=== PATIENT | female | born 1960 | race Caucasian/White ===

== ENCOUNTER 2022-01-08 13:23 | Outpatient (CLI) | payer OTHER, SELFPAY ==
[2022-01-08 16:13] LABS: Magnesium* 1.9 mg/dL (1.5-2.6)
[2022-01-08 16:50] LABS: Ferritin* 22.3 ng/mL (11.1-264.0)
[2022-01-08 17:03] LABS: Vitamin B12* 819 pg/mL (243-894)
[2022-01-12 11:31] LABS: Vitamin A (Retinol) 0.44 mg/L (0.30-1.20)
[2022-01-13 08:42] LABS: Copper, Serum/Plasma 156.2 ug/dL (80.0-155.0); Zinc, Serum/Plasma 79.3 ug/dL (60.0-120.0)
[2022-01-14 14:21] LABS: Vitamin K1 0.39 nmol/L (0.22-4.88)
--- OUTSIDE RECORDS SUMMARY | 2022-01-29 17:49 | XMS_ITS | Encounter Summary ---
:1960 Author Organization [facility] Address [address] [place] [address] Care Team Providers Name Role Phone Olamide Rodney MD Primary Care Provider Reason for Visit Reason Comments Annual Exam Encounter Details Date Type Department Care Team Description 09/28/2015 Office Visit [place] [facility] Olamied Rodney physical examination (Primary Dx); Hayley Antoine MD Diabetes type 2, controlled ([facility]); [address] S/P gastric bypass; [place] [address] Bl Vitamin D deficiency; [phone] [place], [place] Hx of [facility] [place] er of endometrium [phone] (Wo rk) Social History Tobacco Use Types Packs/Day Years Used Date Smoking Tobacco: Never Alcohol Use Standard Drinks/Week Comments Yes 0 (1 standard drink = 0.6 oz pure alcoho l) mod Sex Assigned at Date Recorded Not on file documented as of this encounter Last Filed Vital Signs Vital Sign Reading Time Taken Comments Blood Pressure 129/88 09/28/2015 8:30 AM CDT Pulse 74 09/28/2015 8:30 AM CDT Temperature - - Respiratory Rate - - Oxygen Saturation - - Inhaled Oxygen Concentration - - Weight 111.6 kg (246 lb) 09/28/2015 8:30 AM CDT Height 164.5 cm (5' 4.76) 09/28/2015 8:30 AM CDT Body Mass Index 41.24 09/28/2015 8:30 AM CDT documented in this encounter Progress Notes Salima José RN - 10/05/2015 10:23 AM CDT Quick Note: Dear Paty, I am writing to let you know that your PAP and HPV result is negative. This means that your test result was normal. No cancer or precancerous cells were seen. Based on current cervical cancer screening recommendations, your next PAP and HPV should be in 12 months. Continue to schedule your annual preventive exams for your overall health. If you have questions about cervical cancer screening or your test results, call Cervical Cancer Screening and Management Team [phone] Sincerely, Salima José, LUCIA on behalf of Dr. Bethany Carbone, Ceramist Carlyn Al Cervical Cancer Screening and Management Olamide Jimenez MD - 09/28/2015 11:11 AM CDT Preventive Physical Exam: 09/28/2015 SUBJECTIVE: 54 y.o. year old female for a physical exam. Zostavax 2008. Pneumonia vaccine 1996 &2005. Adacel 2011. Gets seasonal flu shot. Was diagnosed with endometrial cancer, still gets Pap andpelvicexam annually. Done seeing Lsw. Had the OLVIN and BSO. She remotely had a DVT on control pills. She is sexually active and denies risk for STD. She does do self-breast exam. No history of breast biopsy. Gets annual mammograms. She is working out at the gym 3 times per week 45-60 minutes doing weights and cardio. Weight is up a bit. Bone density approximately 2013, due in 10 years for repeat. Colonoscopy 2015 repeat in 5 years, does have family history of colon cancer in mother. She has type 2 diabetes mellitus which became quiescent after her gastric bypass 2002. Her current weight is increasing. Patient traveling to [facility] and [facility] with [employer] this fall. Lab Results Component Value Date/Time HGB A1C 5.8* 09/21/2015 0736 HGB A1C 6.0* 03/15/2015 0757 HGB A1C 5.8* 09/02/2014 1102 HEMOGLOBIN A1C RAPID 5.2 03/31/2012 1013 Immunization History Administered Date(s) Administered ??? FLUARIX INFLUENZA QIV (36+ MOS) 03/08/2013, 03/09/2014, 03/22/2015 ??? Influenza TIV (36+ mos) 03/04/2012 ??? Influenza TIV 0.5ml (36+ mos) 04/03/2005, 05/06/2006, 05/22/2007, 04/01/2010 ??? Influenza TIV 36+ mos 03/29/2011 ??? Pneumococcal vaccine (pneumovax) 10/02/2005 ? ? Td Adult (>7 years) 12/11/1999 ??? Tdap (Adacel) 08/19/2011 Past Medical History Diagnosis Date ??? Deep Venous Thrombosis 10/02/2005 ??? Depression NOS 10/02/2005 ??? Factor V Leiden 08/08/2010 ??? Hernia Hiatal 08/08/2010 ??? Lumbar Disc Degeneration 08/08/2010 ??? Diabetes type 2, controlled (HRC) 04/23/2011 ??? Chronic insomnia 04/23/2011 ??? Actinic keratoses 04/23/2011 ??? Endometrial cancer (HRC) 04/23/2011 ??? Nondependent alcohol abuse 04/23/2011 ??? Chronic abdominal pain 04/23/2011 ??? Varicose veins 04/23/2011 ??? Superficial thrombophlebitis 04/23/2011 ??? S/P gastric bypass 04/23/2011 ??? Hx of cancer of endometrium 07/26/2011 ??? Unspecified asthma(493.90) (ACG) 08/19/2011 ??? Macrocytosis without anemia 04/22/2012 ??? Asthma (ACG) allergic triggers Past Surgical History Procedure Laterality Date ??? Gastric bypass surgery 2003 ??? [place] tooth extraction ??? Eye surgery PRK ??? Olvin and bso endometrial cancer ??? Cholecystectomy ??? Lipectomy 2005 ??? Ovary removal ??? Hysterectomy Social History: . 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 Allergies Allergen Reactions ??? Flovent [Fluticasone] laryngitis ??? Lanolin Hives ??? Other LW Other1: -NONE KNOWN ??? Oxycodone-Acetaminophen LW Reaction: Itching, Pruritis ??? Review Contrast Media LW CM1: >>> NO CONTRAST ADVERSE REACTION <<< Reaction : ??? Review Food Intolerance LW FI1: NO KNOWN FOOD ALLERGIES OR INTOLERANCES LW FI2: NO KNOWN FOOD ALLERGIES OR INTOLERANCES Outpatient Prescriptions Prior to Visit Medication Sig Note Dispense Refill ??? aspirin 81 mg tablet Take 2 tablets by mouth daily (every 24 hours). LW Addl Instr:hold until lovenox dc'd 01/25/2014: Stopped taking aspirin per instructions for procedure. 3 ??? b complex-vitamin c-folic acid (NEPHROCAPS) 1 mg capsule Take 1 capsule by mouth daily (every 24hours). ??? cyanocobalamin (VITAMIN B12) 1,000 mcg tablet Take 1,000 mcg by mouth daily (every 24 hours). 6 times/week ??? folic acid 400 mcg tablet Take 400 mcg by mouth daily (every 24 hours). ??? LORazepam (ATIVAN) 0.5 mg tablet Take 1 tablet by mouth every 6 hours as needed for Anxiety. 12 tablet 0 ??? multivitamin (THERAGRAN) tablet Take 2 tablets by mouth daily (every 24 hours). ??? sertraline (ZOLOFT) 50 mg tablet Take 0.5 tablets by mouth daily (every 24 hours). 90 tablet 3 No facility-administered medications prior to visit. Family History Problem Relation Age of Onset ??? Conversion Family History LW Problem: V16.0 Ca Colon Fam Hx LW Modifier: colonoscopy at 10/2004 LW Onset: ??? Cancer, Colon Mother ??? Clotting Disorder Mother Factor V Leiden ??? DVT/PE Mother ??? Emphysema Father ??? Heart Disease Father ??? Clotting Disorder Father Factor V Leiden ??? Mult Sclerosis Sister ??? Allergies Sister ??? Depression Sister ??? Allergies Brother ??? Depression Brother ??? Thyroid Disease Brother ??? Clotting Disorder Brother Factor V Leiden ??? Allergies Brother ??? Depression Brother ??? Allergies Brother ??? Depression Brother ??? Allergies Brother ??? Depression Brother ??? Colon Polyps Maternal Aunt ??? Cancer, Breast Maternal Aunt 70 Habits: reports that she has never smoked. She has never used smokeless tobacco. reports that she does not drink alcohol. reports that she does not use illicit drugs. Review of Systems: With the exception of any items noted above, the remainder of the complete ROS is negative. OBJECTIVE: Vital Signs: height is 1.645 m (5' 4.76) and weight is 111.585 kg (246 lb). Her blood pressure is 129/88 and her pulse is 74. , Estimated body mass index is 41.24 kg/(m^2) as calculated from the following: Height as of this encounter: 1.645 m (5' 4.76). Weight as of this encounter: 111.585 kg (246 lb). General: Overweight female, alert, in NAD. HEENT: PERRLA, EOMI, no icterus or injection. Bilateral TM's, external canals, oropharynx normal. Neck: Supple, without thyromegaly or mass. No LAD. No JVD or carotid bruits. CV: RRR without murmurs, rubs or gallops. 2/4 radial artery and dorsalis pedis pulse bilaterally. Resp: Clear to auscultation without crackles, wheezes or distress. Abdomen: Soft, non-tender, non-distended, without hepatosplenomegaly, masses. Breasts: Breasts appear normal. Symmetrical, nontender, without masses or nipple discharge. No supraclavicular or axillary LAD. Lower Extremities: FROM, normal gait without edema, lesions, or deformity. Pelvic: Vaginal mucosa appears atrophic. Vaginal cuff appears normal. Vaginal cuff scraping obtained. Uterus and adnexa absent on pelvic examination. Rectal: Deferred. Neuro: CN II-XII, motor & sensory function all intact. Psychiatric: Alert & oriented with normal affect and insight. ASSESSMENT: 1. Encounter Diagnoses Name Primary? Routine physical examination Yes ??? Diabetes type 2, controlled (HRC) ??? S/P gastric bypass ??? Vitamin D deficiency (HRC) ??? Hx of cancer of endometrium PLAN: 1. Physical exam, Pap/pelvic, clinical breast exam were completed. Recommend monthly self breast exam and annual mammogram. Avoid weight gain. Restart vitamin D. Reviewed labs drawn prior to visit. Followup in 6 months. 2. Orders Placed This Encounter Procedures ??? MM Mammogram Screening Bilateral W Cad ??? Hemoglobin A1C Glycosylated ??? Vitamin D (In house) ??? Pap Test Order ??? HPV with 16 18 Genotyping Orders Placed This Encounter Medications ??? CALCIUM CARBONATE (CALCIUM 500 ORAL) Sig: Take by mouth. ??? albuterol HFA 90 mcg/actuation inhaler Sig: Inhale 2 puffs every 6 hours as needed for Wheezing. Dispense: 1 Inhaler Refill: 1 There are no Patient Instructions on file for this visit. General preventive health measures were reviewed with patient. Labs: We will mail lab results to patient or contact patient if needed by phone fAnd inor significant abnormals. *SH~DNS~PEF documented in this encounter Miscellaneous Notes Miscellaneous - 07/31/2016 7:38 PM CSTNotes Recorded by Salima José RN on 10/05/2015 at 10:23 Brody Newman,I am writing to let you know that your PAP and HPV result is negative. This means that your test result was normal. No cancer or precancerous cells were seen.Based on current cervical cancer screening recommendations, your next PAP and HPV should be in 12 months. Continue to schedule your annual preventive exams for your overall health.If you have questions about cervical cancer screening or your test results, callCervical Cancer Screening and Management Team [phone] Garcia RN on behalf ofDrJorge Carbone, Medical DirectorLakeview Hospital Cervical Cancer Screening and Management AL MANAGER Miscellaneous - 07/31/2016 7:38 PM CSTNotes Recorded by Salima José RN on 10/05/2015 at 10:23 Brody Newman,I am writing to let you know that your PAP and HPV result is negative. This means that your test result was normal. No cancer or precancerous cells were seen.Based on current cervical cancer screening recommendations, your next PAP and HPV should be in 12 months. Continue to schedule your annual preventive exams for your overall health.If you have questions about cervical cancer screening or your test results, callCervical Cancer Screening and Management Team [phone] Garcia, RN on behalf ofDr. Bethany Carbone, Medical DirectorAultman Alliance Community Hospitaltaylor Al Cervical Cancer Screening and Management AL MANAGER documented in this encounter Plan of Treatment Not on filedocumented as of this encounter Procedures Procedure Name Priority Date/Time Associated Diagnosis Comme nts PAP TEST ORDER Routine 09/28/2015 8:50 AM Hx of cancer of Resu lts for this CDT endometrium procedure are i n the results section. HPV WITH 16 18 Routine 09/28/2015 8:50 AM Results for this GENOTYPING, CDT procedure are i n CERVICAL/ENDOCERVICA the res ults L section. ANATOMICAL PATH Routine 09/28/2015 8:50 AM Result s for this LIQUID BASED CDT procedure are i n the results section. documented in this encounter Results Vitamin D 25-Hydroxy, Total (03/29/2016 4:00 PM CDT) athologist Signature Vitamin D 25 Oh 30 20 - 80 PN SOFT ng/mL Comment: Deficiency = <20 Adequate ??= 20-29 Preferred = 30-50 Uncertain safety = 51-80 High = >80 Specimen Anatomical Collection Method Collection Time Receive d Time (Source) Location / / Volume Laterality 03/29/2016 4:00 PM 6 9:03 CDT PM CDT Narrative PN SOFT - 03/29/2016 10:04 PM [place] [address] CLIA number [id number] Olamide Rodney MD LAB_1 Performing Organization Address City/State/ZIP Code Phon e Number PN SOFT [address] [place] [phone] (ABNORMAL) Hgb A1c (03/29/2016 4:00 PM CDT) athologist Signature HGB A1C 6.2 (H) 4.0 - 5.6 % PN SOFT Specimen Anatomical Collection Method Collection Time Receive d Time (Source) Location / / Volume Laterality 03/29/2016 4:00 PM 6 6:16 CDT PM CDT Narrative PN SOFT - 03/29/2016 9:56 PM CDT Performed at [facility] [address] [place] [address] CLIA number [id number] Olamide Rodney MD LAB_1 Performing Organization Address City/State/ZIP Code Phon e Number PN SOFT [address] [place] [address] Pap Smear (09/28/2015 8:50 AM CDT) Specimen (Source) Anatomical Collection Method Collection Time Re ceived Time Location / / Volume Laterality 09/28/2015 8:50 AM CDT Narrative HP CONVERSION - 10/04/2015 7:16 PM CDT FINAL GYNECOLOGICAL CYTOLOGY REPORT Pathology #: [id number] ?Date Obtained: 09/28/2015 ? Date Received: 09/29/2015 INTERPRETATION/RESULTS: Negative for Intraepithelial Lesion or M alignancy. SPECIMEN ADEQUACY: Satisfactory for Evaluation. ??No endoce rvical cells/transformation zone component present; post hysterectomy Verified on 10/04/2015 ??by EPHRAIM RAMIRES(ASCP) (electronic signature) CLINICAL NOTES: ?Abnormal bleeding: No, LMP: na, Menstrual status: Post ?Menopausal, Current form of the rapy: None apply LIQUID BASED PAP SMEAR SPECIMEN TYPE: ?ROUTINE CERVICAL PAP TEST PLEASE NOTE: The pap smear is a screening test design ed to aid in the detection of cervical cancer and its pre cursor lesions. It is not a diagnostic procedure and boogie uld not be used as the sole means of detecting cervical cancer. Both false-positive and false-negative report s may occur. Performed at [facility], [address] [place] [address] Transcriptions 07/31/2016 7:38 PM CSTNotes Recorded by Salima José RN on 10/05/2015 at 10:23 Brody Newman, I am writing to let you know that your PAP and HPV result is negative. This means that your test resu lt was normal. No cancer or precancerous cells were seen. Based on current cervical cancer screening recommendations, your next PAP and HPV should be in 12 months. Continue to schedule your annual preventive exams for your overall health. If you have questions about cervical can cer screening or your test results, call Cervical Cancer Screening and Management Team [phone],Salima José RN on behalf ofDr. Bethany Carbone, Ceramist [facility] Cervical Cancer Screening and Management Olamide Rodney MD LAB_1 Performing Organization Address City/State/ZIP Code Phon e Number HP CONVERSION HPV with 16 18 Genotyping (09/28/2015 8:50 AM CDT) [facility] Method Time Signature HPV High Risk Not Detected HP CONVERSION 16 HPV High Risk Not Detected HP CONVERSION 18 Other HPV Not Detected HP CONVERSION High Risk Not 16/18 Comment: The [facility] HPV Test is a qualitative in v itro test for the detection of Human Papillomavirus in [facility] patient specimens. ??The test utilizes amplifica tion of target DNA by Polymerase Chain Reaction (PCR) and n ucleic acid hybridization for the detection of 14 hi gh-risk (HR) HPV types. The assay tests for high risk typ es (16, 18, 31, 33, 35, 39, 45, 51, 52, 56, 58, 59, 66 and 6 8). NOTE: This test was developed and its pe rformance characteristics determined by [facility]. It has not been cleared or approved by [facility]. The laboratory is regulated under CLIA as qualified to perform high-complexity testing. This test is used for clinical purposes. It should not be regarded as investigational or fo r research. Specimen Anatomical Collection Method Collection Time Receive d Time (Source) Location / / Volume Laterality 09/28/2015 8:50 AM 6 8:50 CDT AM CDT Narrative HP CONVERSION - 10/02/2015 12:37 PM CDT Performed at [facility] [address] [place] [address] CLIA number [id number] Transcriptions 07/31/2016 7:38 PM CSTNotes Recorded by Salima José RN on 10/05/2015 at 10:23 Brody Newman, I am writing to let you know that your PAP and HPV result is negative. This means that your test resu lt was normal. No cancer or precancerous cells were seen. Based on current cervical cancer screening recommendations, your next PAP and HPV should be in 12 months. Continue to schedule your annual preventive exams for your overall health. If you have questions about cervical can cer screening or your test results, call Cervical Cancer Screening and Management Team [phone] Garcia RN on behalf ofDr. Bethany Carbone, Ceramist Carlyn Zamoraet Cervical Cancer Screening and Management Olamide Rodney MD LAB_1 Performing Organization Address City/[facility] Phon e Number HP CONVERSION Pap Test Order (09/28/2015 8:50 AM CDT) [facility] Method Time Signature Pap Smear Collected HP CONVERSION Monolayer tracking test Specimen Anatomical Collection Method Collection Time Receive d Time (Source) Location / / Volume Laterality 09/28/2015 8:50 AM 6 6:57 CDT AM CDT Olamide Rodney MD LAB_1 Performing Organization Address [facility] Phon e Number HP CONVERSION documented in this encounter Visit Diagnoses Diagnosis Routine physical examination - Primary Routine general medical examination at a health care facility Diabetes type 2, controlled (HRC) Type II or unspecified type diabetes rod litus without mention of complication, not stated as uncontrolled S/P gastric bypass Bariatric surgery status Vitamin D deficiency (HRC) Unspecified vitamin D deficiency Hx of cancer of endometrium Personal history of malignant neoplasm o f other parts of uterus Diabetes type 2, controlled (HRC) Type II or unspecified type diabetes rod litus without mention of complication, not stated as uncontrolled Vitamin D deficiency (HRC) Unspecified vitamin D deficiency documented in this encounter Care Teams Aviation Safety Inspector Relationship Specialty Start Date End Date Olamide Rodney MD PCP - General 09/25/10 01/11/21 [address] [place] [address] documented as of this encounter
--- OUTSIDE RECORDS SUMMARY | 2022-01-29 17:49 | XMS_ITS | Encounter Summary ---
:1960 Author Organization [employer] Address [address] [place] [address] Care Team Providers Name Role Phone Shira Rodney MD Primary Care Provider Reason for Visit Reason Comments Refill sertraline (ZOLOFT) 50 MG ta blet [Pharmacy Med Name: SERTRALINE 50MG TABLETS] Encounter Details Date Type Department Care Team Description 05/12/2016 Refill [place] [facility] Shira Rodney, Refill (sertraline Medicine (ZOLOFT) 50 MG tablet [id number] [Pharmacy Med Name: [place] [address] Blvd SERTRALINE 50MG [phone] [place], [place] TABLETS]) [id number] (Wo rk) Social History Tobacco Use Types Packs/Day Years Used Date Smoking Tobacco: Never Smokeless Tobacco: Never Alcohol Use Standard Drinks/Week Comments No 0 (1 standard drink = 0.6 oz pure alcoho l) None Alcohol Habits Answer Date Recorded How often do you have a drink containing alcohol? Not asked How many drinks containing alcohol do you have on a typical Not asked day when you are drinking? How often do you have six or more drinks on one occasion? No t asked Comment: None 02/10/2016 Sex Assigned at Date Recorded Not on file documented as of this encounter Nursing Notes Meagan Ayala RN - 05/13/2016 12:01 PM CST Renewed medication per medication refill protocol. Requested Prescriptions Signed Prescriptions Disp Refills ??? sertraline (ZOLOFT) 50 MG tablet 90 Tab 3 Sig: TAKE 1 TABLET BY MOUTH DAILY Authorizing Provider: SHIRA RODNEY Ordering User: MEAGAN AYALA SLATIVE ANALYST Interface, Out [employer] Clean Tech Query - 05/12/2016 3:15 AM CST sertraline (ZOLOFT) 50 MG tablet [Pharmacy Med Name: SERTRALINE 50MG TABLETS] Medication started: 05/11/2015 Last ordered by SHIRA RODNEY: 05/25/2015 (353 days ago) QTY: 90, Refills: 3, Sig: take 0.5 tablets by mouth daily (every 24 hours). (changed) -> This medication may not have been authorized by the requested provider. -> Refill x 12 months (until due for an office visit) Last qualifying visit: 04/02/2016 (with SHIRA RODNEY) Next scheduled visit: None SBP: 138 mm Hg on 04/02/2016 DBP: 86 mm Hg on 04/02/2016 Powered by [employer], Reference: [id number], 05/12/2016 3:15:13 AM LEGISLATIVE ANALYST, Pool: VIRGILIO ROLLINS REFILL ([id number]) SLATIVE ANALYST documented in this encounter Plan of Treatment Not on filedocumented as of this encounter Visit Diagnoses Not on filedocumented in this encounter Care Teams Safety Coordinator Relationship Specialty Start Date End Date Shira Rodney MD PCP - General 09/25/10 01/11/21 [address] [place] [address] documented as of this encounter
--- OUTSIDE RECORDS SUMMARY | 2022-01-29 17:49 | XMS_ITS | Encounter Summary ---
:1960 Author Organization [employer] Address [address] [place] [address] Care Team Providers Name Role Phone Olamide Rodney MD Primary Care Provider Reason for Visit Procedure/Equipment (Routine) - Incomplete Specialty Diagnoses / Procedures Referred By Contact Refer red To Contact Diagnoses Cough Olamide Rodney MD Procedures XR Chest 2 Views [address] [place], [place] [address] Referral ID Status Reason Start Date Expiration Date Visits V isits Requested Authorized [id number] Incomplete 09/30/2016 12/30/2017 1 1 Encounter Details Date Type Department Care Team Description 09/30/2016 Imaging [place] [facility] Olamide Rodney MD Cough [address] [place] [address] [place] [address] [phone] (Wo rk) Social History Tobacco Use Types Packs/Day Years Used Date Smoking Tobacco: Never Smokeless Tobacco: Never Alcohol Use Standard Drinks/Week Comments Yes 10 (1 standard drink = 0.6 oz pure alcoh ol) None Alcohol Habits Answer Date Recorded How [...] on file documented as of this encounter Plan of Treatment Not on filedocumented as of this encounter Procedures Procedure Name Priority Date/Time Associated Diagnosis Comme nts XR CHEST 2 VIEWS Same Day 09/30/2016 9:23 AM Cough Resul ts for this CDT procedure are i n the results section. documented in this encounter Results XR Chest 2 Views (09/30/2016 9:23 AM CDT) Anatomical Region Laterality Modality Chest, Lung Radio Fluoroscopy Specimen (Source) Anatomical Collection Method Collection Time Re ceived Time Location / / Volume Laterality 09/30/2016 9:11 AM CDT Impressions 09/30/2016 9:29 AM CDT IMPRESSION: No acute process. Narrative 09/30/2016 9:29 AM CDT COMPARISON: ??None ? FINDINGS: ??Two views of the chest show normal cardiomediastinal silhouette and pulmonary vasculature. ??Lungs are well aerated and clear. ??No significant effusion. ? Procedure Note Jose Riggs MD - 09/30/2016Format ting of this note might be different from the original. COMPARISON: None FINDINGS: Two views of the chest show no rmal cardiomediastinal silhouette and pulmonary vasculature. Lungs are well aerated and clear. No significant effusion. IMPRESSION IMPRESSION: No acute process. Olamide Rodney MD RAD GD documented in this encounter Visit Diagnoses Diagnosis Cough documented in this encounter Care Teams Precinct Commanding Officer Relationship Specialty Start Date End Date Olamide Rodney MD PCP - General 09/25/10 01/11/21 [address] [place] [address] documented as of this encounter
--- OUTSIDE RECORDS SUMMARY | 2022-01-29 17:49 | XMS_ITS | Encounter Summary ---
:1960 Author Organization [employer] Address [address] [place] [address] Care Team Providers Name Role Phone Olamide Rodney MD Primary Care Provider Reason for Visit Reason Comments Follow-up Encounter Details Date Type Department Care Team Description 04/02/2016 Office Visit [place] [facility] Olamide Rodney type 2 diabetes mellitus without complication, without long-term current use of insulin (HRC) (Primary Dx); Hayley Antoine MD Need for influenza vaccination; [id number] Other vitamin B12 deficiency anemia; [place] [address] [address] Embolism and thrombosis (HRC); [phone] [place], [place] Heterozygo us factor V Leiden mutation (HRC); [address] Chronic insomnia; [phone] S/P gastric byp ass; (Work) Mild intermittent asthma without complic ation; Macrocyto sis without anemia; Depression, susan or, single episode, mild (HRC); Vitamin D defic iency; Status post bar iatric surgery; Intestinal iftikhar bsorption, unspecified type [K90.9] Social History Tobacco Use Types Packs/Day Years [...] Sign Reading Time Taken Comments Blood Pressure 138/86 04/02/2016 11:39 AM CDT Pulse 80 04/02/2016 11:39 AM CDT Temperature - - Respiratory Rate - - Oxygen Saturation - - Inhaled Oxygen Concentration - - Weight 117.9 kg (260 lb) 04/02/2016 11:39 AM CDT Height - - Body Mass Index 43.58 09/28/2015 8:30 AM CDT documented in this encounter Progress Notes Olamide Rodney MD - 04/02/2016 11:50 AM CDT SUBJECTIVE: 55 y.o. -year-old female followup type 2 diabetes mellitus, gastric bypass. She has type 2 diabetes mellitus. Diet control. She is status post gastric bypass. Her weight has increased a fair amount. Continues to creep higher. Her A1c has been fairly stable, recent A1c is 6.2, Increased. She does not check the blood glucose. She is not on any medications for diabetes. She is status post gastric bypass. She does take vitamin B 12 and multivitamin daily. She has some iron in the multivitamin but does not take it separate iron supplement. She has never had any difficulty with low ferritin. She has had good labs in the past with no significant nutritional deficiencies.Vitamin D has been low, takes 1000 international units most days. Heterozygous for factor V Leiden. No current evidence thrombosis. Has trouble sleeping chronically. Tried [id number]-[id number] sleep aid but got restless legs. States sheis drinking some alcohol but feels she has things under control. Not currently feeling too depressed. Taking the Zoloft. Phq9 score is 1. No suicidal thoughts or ideation. Gets a lot of knee pain under left knee. Data: Lab Results Component Value Date/Time HGB A1C 6.2* 03/29/2016 1600 HGB A1C 5.8* 09/21/2015 0736 HGB A1C 6.0* 03/15/2015 0757 HGB A1C 5.0 03/25/2003 0844 HGB A1C 6.4* 07/05/2002 0936 HGB A1C 6.2* 03/19/2002 0826 HEMOGLOBIN A1C RAPID 5.2 03/31/2012 1013 Lab Results Component Value Date/Time LDL, CALC. 71 09/19/2004 0824 LDL CALCULATED 91 09/21/2015 0736 Lab Results Component Value Date/Time CREATININE 0.9 07/05/2002 0936 CREATININE SERUM 0.70 09/21/2015 0736 Lab Results Component Value Date/Time ALT (SGPT) 34 07/05/2002 0936 ALANINE AMINOTRANSFERASE 32 09/21/2015 0736 Lab Results Component Value Date/Time SODIUM 141 09/21/2015 0736 SODIUM 140 07/05/2002 0936 CHLORIDE 107 09/21/2015 0736 BICARBONATE 25 09/21/2015 0736 Lab Results Component Value Date/Time MICROALBUMIN, UR RANDOM 2.4 12/10/2001 0835 MICROALBUMIN URINE 14.8 09/21/2015 0916 Allergies Allergen Reactions ??? Fluticasone PN: laryngitis ??? Lanolin Hives ??? Other PN: LW Other1: -NONE KNOWN ??? Oxycodone-Acetaminophen PN: LW Reaction: Itching, Pruritis ??? Review Contrast Media PN: LW CM1: >>> NO CONTRAST ADVERSE REACTION <<< Reaction : ??? Review Food Intolerance PN: LW FI1: NO KNOWN FOOD ALLERGIES OR INTOLERANCES LW FI2: NO KNOWN FOOD ALLERGIES OR INTOLERANCES Outpatient Prescriptions Prior to Visit Medication Sig Dispense Refill ??? aspirin 81 MG tablet Take 2 tablets by mouth daily (every 24 hours). LW Addl Instr:hold until lovenox dc'd 3 ??? CALCIUM OR Take by mouth. ??? cyanocobalamin 1000 MCG tablet Take 1,000 mcg by mouth daily (every 24 hours). 6 times/week ??? Multiple Vitamins-Minerals (MULTIVITAMIN ADULT OR) Take 2 tablets by mouth daily (every 24 hours). ??? sertraline (AKA ZOLOFT) 50 MG tablet Take 0.5 tablets by mouth daily (every 24 hours). 90 tablet3 ??? ALBUterol sulfate HFA 108 (90 BASE) MCG/ACT inhaler Inhale 2 puffs every 6 hours as needed for Wheezing. 1 Inhaler 1 ??? ASPIRIN EC 81MG ORAL TABS 3 TABLETS DAILY 0 ??? CALCIUM + D 600-200 MG-IU OR TABS 3 TABLET DAILY 0 ??? CYANOCOBALAMIN 1000 MCG SL SUBL 1 every other day 0 99 ??? FLINTSTONES PLUS IRON OR CHEW 2 per day 0 ??? LORazepam (ATIVAN) 0.5 MG tablet Take 1 tablet by mouth every 6 hours as needed for Anxiety. 12 tablet 0 ??? PIRBUTEROL ACETATE (MAXAIR AUTOHALER) 200MCG/INH INHALER use as directed prn 1 prn No facility-administered medications prior to visit. Patient Active Problem List Diagnosis ??? Other vitamin B12 deficiency anemia ??? Embolism and thrombosis (HRC) ??? Heterozygous factor V Leiden mutation (HRC) ??? Hiatal hernia ??? Degeneration of lumbar or lumbosacral intervertebral disc (HRC) ??? Diabetes type 2, controlled (HRC) ??? Chronic insomnia ??? Actinic keratoses ??? Nondependent alcohol abuse ??? Chronic abdominal pain ??? Varicose veins ??? Superficial thrombophlebitis ??? S/P gastric bypass ??? Hx of cancer of endometrium ??? Mild intermittent asthma without complication (HRC) ??? Macrocytosis without anemia ??? Osteopenia ??? Circadian rhythm sleep disorder, delayed sleep phase type ??? Depression, major, single episode, mild (HRC) ??? Vitamin D deficiency (HRC) Past Medical History Diagnosis Date ??? Depressive disorder, not elsewhere classified (HRC) ??? Phlebitis and thrombophlebitis of other deep vessels of lower extremities right leg, was on BCP at the time, Factor V Leiden positive, was on coumadin for 6mo ??? Other vitamin B12 deficiency anemia secondary to gastric bypass ??? Deep Venous Thrombosis 10/02/2005 ??? Depression [...] cancer of endometrium 07/26/2011 ??? Unspecified asthma(493.90) ([facility] [place] 08/19/2011 ??? Macrocytosis without anemia 04/22/2012 ??? Asthma (ACG) allergic triggers ??? Chronic obstructive asthma, unspecified (HRC) 10/08/2010 Import from [employer] Past Surgical History Procedure Laterality Date ??? Gastr restirct w/byps; w/sb recon 09/23 ??? Cholecystectomy; w/cholangiography 09/23 done during gastric bypass surgery ??? Gastric bypass 2002 ??? [place] teeth extraction ??? Eye surgery PRK ??? David and bso endometrial cancer ??? Cholecystectomy ??? Lipectomy 2004 ??? Ovary removal ??? Hysterectomy Habits: reports that she has never smoked. She has never used smokeless tobacco. Social History: . OBJECTIVE: Vital Signs: BP 138/86 mmHg Pulse 80 Wt 117.935 kg (260 lb) General: White female Eyes: No icterus or injection. Throat: Moist mucous membranes without lesions, erythema, or exudate. Neck: Supple, without masses, lymphadenopathy or tenderness. No thyromegaly or nodules. No jugular venous distention. No carotid bruits. Respiratory: Normal respiratory effort. Lungs are clear with good breath sounds. Heart: RR without murmurs, rubs, or gallops. 2/4 radial artery pulse bilaterally. Abdomen: The abdomen was flat, soft and nontender without guarding rebound or masses. Extremities: Full ROM without limitation, deformity or edema. 2/4 radial artery and dorsalis pedis pulses bilateral. Neurological: Normal monofilament test lower extremities bilaterally. Psychiatric: Normal mood and affect. ASSESSMENT: Encounter Diagnoses Name Primary? Controlled type 2 diabetes mellitus without complication, without long-term current use of insulin (HRC) Yes ??? Need for influenza vaccination ??? Other vitamin B12 deficiency anemia ??? Embolism and thrombosis (HRC) ??? Heterozygous factor V Leiden mutation (HRC) ??? Chronic insomnia ??? S/P gastric bypass ??? Mild intermittent asthma without complication (HRC) ??? Macrocytosis without anemia ??? Depression, major, single episode, mild (HRC) ??? Vitamin D deficiency (HRC) ??? Status post bariatric surgery ??? Intestinal malabsorption, unspecified type [K90.9] PLAN: 1. Fairly stable conditions. We could do x-rays of knee or get injection. Not sure she wants to proceed at this time. Multiple labs and follow-up in 6 months. She will do the physical done. Refill meds. 2. Orders Placed This Encounter Procedures ??? Basic Metabolic Panel ??? LIPID PANEL AND DIRECT LDL(IF NEEDED) ??? Complete Blood Count-No Diff ??? Copper, Serum ??? FERRITIN ??? B12 ONLY ??? FOLATE ONLY (4HR FAST RECOMMENDED) ??? HGB A1C ??? IRON PROFILE (IRON,TIBC,%SAT.(CALC)) ??? INTACT PTH ??? Vitamin A (Retinol) ??? Vitamin B1 ??? Vitamin B6 ??? VITAMIN D 25-HYDROXY, TOTAL ??? Zinc, Serum ??? Calcium ??? ALT (SGPT) ??? Microalb/Creat Ratio ??? Creatinine / GFR ??? Influenza (Fluarix 0.5, 3+ Yrs) Lab Frequency Next Occurrence INTERNAL MEDICINE CONSULT ADULT (AMB) Once 07/21/2015 Basic Metabolic Panel Once 09/21/2016 LIPID PANEL AND DIRECT LDL(IF NEEDED) Once 09/21/2016 Complete Blood Count-No Diff Once 09/21/2016 Copper, Serum Once 09/21/2016 FERRITIN Once 09/21/2016 B12 ONLY Once 09/21/2016 FOLATE ONLY (4HR FAST RECOMMENDED) Once 09/21/2016 HGB A1C Once 09/21/2016 IRON PROFILE (IRON,TIBC,%SAT.(CALC)) Once 09/21/2016 INTACT PTH Once 09/21/2016 Vitamin A (Retinol) Once 09/21/2016 Vitamin B1 Once 09/21/2016 Vitamin B6 Once 09/21/2016 VITAMIN D 25-HYDROXY, TOTAL Once 09/21/2016 Zinc, Serum Once 09/21/2016 Calcium Once 09/21/2016 ALT (SGPT) Once 09/21/2016 Microalb/Creat Ratio Once 09/21/2016 Creatinine / GFR Once 09/21/2016 Orders Placed This Encounter Medications ??? DISCONTD: ondansetron (ZOFRAN) 4 MG tablet Sig: Take 4 mg by mouth every 8 hours as needed for Nausea. ??? ondansetron (ZOFRAN) 4 MG tablet Sig: Take 1 Tab by mouth every 8 hours as needed for Nausea. Dispense: 30 Tab Refill: 0 ??? LORazepam (ATIVAN) 0.5 MG tablet Sig: Take 1 Tab by mouth every 8 hours as needed for Anxiety. Dispense: 15 Tab Refill: 0 ??? ALBUterol sulfate HFA 108 (90 BASE) MCG/ACT inhaler Sig: Inhale 1-2 Puffs every 4 hours as needed for Wheezing. Dispense: 1 Inhaler Refill: 2 There are no Patient Instructions on file for this visit. The patient was discharged ambulatory and in stable condition. *SH~DNS~SOAP documented in this encounter Plan of Treatment Not on filedocumented as of this encounter Results Microalb/Creat Ratio (09/24/2016 8:36 AM CDT) athologist Signature Microalbumin <10.0 mg/L PN SOFT Urine U Creat Random 122 mg/dL PN SOFT Microalbumin/Crea <10.0 0.0 - 30.0 PN SOFT tinine Ratio Specimen Anatomical Collection Method Collection Time Receive d Time (Source) Location / / Volume Laterality Urine specimen 09/24/2016 8:36 AM 017 8:36 (specimen) CDT AM CDT Narrative PN SOFT - 09/24/2016 9:26 AM CDT Performed at [facility], [address] [place] [address] CLIA number [id number] Olamide Rodney MD LAB_1 Performing Organization Address City/State/ZIP Code Phon e Number PN SOFT [address] [place] [address] (ABNORMAL) ALT (SGPT) (09/24/2016 7:50 AM CDT) [facility] Method Time Signature Alanine 82 (H) 9 - 55 PN SOFT Aminotransferase U/L Specimen Anatomical Collection Method Collection Time Receive d Time (Source) Location / / Volume Laterality 09/24/2016 7:50 AM 7 7:49 CDT AM CDT Narrative PN SOFT - 09/24/2016 8:09 AM CDT Performed at [facility], [address] [place] [address] CLIA number [id number] Olamide Rodney MD LAB_1 Performing Organization Address [facility]/ZIP Code Phon e Number PN SOFT [address] [place] [address] Zinc, Serum (09/24/2016 7:50 AM CDT) athologist Signature Zinc, Serum 63 60 - 120 PN SOFT ug/dL Comment: INTERPRETIVE INFORMATION: Zinc, Serum or Plasma Circulating zinc concentrations are depe ndent on albumin status and are depressed with malnutriti on. Zinc may also be lowered with infection, inflammation, stress, oral contraceptives, and . Zinc may be elevated with zinc supplementation or fasting. Elevate d zinc concentrations may interfere with copper absorption. Test developed and characteristics deter mined by [facility]. See Compliance Statement B : [employer] Performed by [facility], [address] [place] [address] [email or web address], Raffi Jha MD - Lab . Director Specimen Anatomical Collection Method Collection Time Receive d Time (Source) Location / / Volume Laterality 09/24/2016 7:50 AM 7 1:21 CDT PM CDT Narrative PN SOFT - 09/26/2016 7:31 AM CDT Performed at [facility] [address] [place] [address] CLIA number [id number] Olamide Rodney MD LAB_1 Performing Organization Address City/[facility]/ZIP Code Phon e Number PN SOFT [address] [place] [address] VITAMIN D 25-HYDROXY, TOTAL (09/24/2016 7:50 AM CDT) P athologist Signature Vitamin D 25 Oh 29 20 - 80 PN SOFT ng/mL Comment: Deficiency = <20 Adequate ??= 20-29 Preferred = 30-50 Uncertain safety = 51-80 High = >80 Specimen Anatomical Collection Method Collection Time Receive d Time (Source) Location / / Volume Laterality 09/24/2016 7:50 AM 7 1:17 CDT PM CDT Narrative PN SOFT - 09/24/2016 5:37 PM CDT Performed at [facility], [address] [place] [address] CLIA number [id number] Olamide Rodney MD LAB_1 Performing Organization Address [facility] Phon e Number PN SOFT [address] [place] [address] Vitamin B6 (09/24/2016 7:50 AM CDT) athologist Signature Vitamin B6 27.5 20.0 - 125.0 PN SOFT nmol/L Comment: INTERPRETIVE INFORMATION: Vitamin B6 (Py ridoxal 5-Phosphate) Pyridoxal 5'-phosphate measured in a spe cimen collected following an 8-hour or overnight fast ac curately indicates vitamin B6 nutritional status. Non-fasti ng specimen concentration reflects recent vitamin in take. Test developed and characteristics deter mined by [facility]. See Compliance Statement B : [employer] Performed by [facility], [address] [place] [address] [email or web address], Raffi Jha MD - Lab . Director Specimen Anatomical Collection Method Collection Time Receive d Time (Source) Location / / Volume Laterality 09/24/2016 7:50 AM 7 1:03 CDT PM CDT Narrative PN SOFT - 09/26/2016 9:36 AM CDT Performed at [facility] [address] [place] [address] CLIA number [id number] Olamide Rodney MD LAB_1 Performing Organization Address City/[facility] Phon e Number PN SOFT [address] [place] [address] [phone] (ABNORMAL) Vitamin B1 (09/24/2016 7:50 AM CDT) athologist Signature Vitamin B1 193 (H) 70 - 180 PN SOFT nmol/L Comment: INTERPRETIVE INFORMATION: Vitamin B1, Wh ole Blood This assay measures the concentration of thiamine diphosphate (TDP), the primary active fo rm of vitamin B1. Approximately 90 percent of vitamin B1 p resent in whole blood is TDP. Thiamine and thiamine mono phosphate, which comprise the remaining 10 percent, are n ot measured. Test developed and characteristics deter mined by [facility]. See Compliance Statement B : [employer] Performed by [facility], [address] [place] [address] [email or web address], Raffi Jha MD - Lab . Director Specimen Anatomical Collection Method Collection Time Receive d Time (Source) Location / / Volume Laterality 09/24/2016 7:50 AM 7 1:04 CDT PM CDT Narrative PN SOFT - 09/26/2016 10:26 PM CDT Performed at [facility] [address] [place] [address] CLIA number [id number] Olamide Rodney MD LAB_1 Performing Organization Address City/State/ZIP Code Phon e Number PN SOFT [address] [place] [address] Vitamin A (Retinol) (09/24/2016 7:50 AM CDT) athologist Signature Retinol 0.39 0.30 - PN SOFT (Vitamin A) 1.20 mg/L Retinyl <0.02 0.00 - PN SOFT Palminate 0.10 mg/L Vitamin A Normal PN SOFT Interp Comment: Test developed and characteristics deter mined by [facility]. See Compliance Statement B : [employer] Performed by [facility], [address] [place] [address] [email or web address], Raffi Jha MD - Lab . Director Specimen Anatomical Collection Method Collection Time Receive d Time (Source) Location / / Volume Laterality 09/24/2016 7:50 AM 7 1:04 CDT PM CDT Narrative PN SOFT - 09/26/2016 11:03 PM CDT Performed at [facility] [address] [place] [address] CLIA number [id number] Olamide Rodney MD LAB_1 Performing Organization Address [facility] Phon e Number PN SOFT [address] [place] [address] INTACT PTH (09/24/2016 7:50 AM CDT) athologist Signature PTH 88 10 - 100 PN SOFT pg/mL Specimen Anatomical Collection Method Collection Time Receive d Time (Source) Location / / Volume Laterality 09/24/2016 7:50 AM 7 1:04 CDT PM CDT Narrative PN SOFT - 09/24/2016 3:14 PM CDT Performed at [address] [address] CLIA number [id number] Olamide Rodney MD LAB_1 Performing Organization Address [facility] Phon e Number PN SOFT [address] [place] [address] IRON PROFILE (IRON,TIBC,%SAT.(CALC)) (09/24/2016 7:50 AM CDT) athologist Signature Iron, Serum 81 50 - 170 PN SOFT ug/dL Transferrin 323 180 - 382 PN SOFT mg/dL Iron Binding 404 250 - 450 PN SOFT Capacity, ug/dL Calculated Iron Saturation 20 20 - 55 % PN SOFT Specimen Anatomical Collection Method Collection Time Receive d Time (Source) Location / / Volume Laterality 09/24/2016 7:50 AM 7 1:20 CDT PM CDT Narrative PN SOFT - 09/24/2016 3:23 PM CDT Performed at [address] [address] CLIA number [id number] Olamide Rodney MD LAB_1 Performing Organization Address [facility] Phon e Number PN SOFT [address] [place] [address] (ABNORMAL) HGB A1C (09/24/2016 7:50 AM CDT) athologist Signature HGB A1C 6.4 (H) 4.0 - 5.6 % PN SOFT Specimen Anatomical Collection Method Collection Time Receive d Time (Source) Location / / Volume Laterality 09/24/2016 7:50 AM 7 1:14 CDT PM CDT Narrative PN SOFT - 09/24/2016 2:31 PM CDT Performed at [address] [address] CLIA number [id number] Olamide Rodney MD LAB_1 Performing Organization Address [facility] Phon e Number PN SOFT [address] [place] [address] FOLATE ONLY (4HR FAST RECOMMENDED) (09/24/2016 7:50 AM CDT) athologist Signature Serum Folate 19.4 7.0 - PN SOFT 9,999.9 ng/mL Specimen Anatomical Collection Method Collection Time Receive d Time (Source) Location / / Volume Laterality 09/24/2016 7:50 AM 7 1:17 CDT PM CDT Narrative PN SOFT - 09/24/2016 5:37 PM CDT Performed at [address] [address] CLIA number [id number] Olamide Rodney MD LAB_1 Performing Organization Address [facility] Phon e Number PN SOFT [address] [place] [address] B12 ONLY (09/24/2016 7:50 AM CDT) athologist Signature Vitamin B12 595 213 - 816 PN SOFT pg/dL Specimen Anatomical Collection Method Collection Time Receive d Time (Source) Location / / Volume Laterality 09/24/2016 7:50 AM 7 1:20 CDT PM CDT Narrative PN SOFT - 09/24/2016 6:08 PM CDT Performed at [address] [address] CLIA number [id number] Olamide Rodney MD LAB_1 Performing Organization Address [facility] Phon e Number PN SOFT [address] [place] [address] FERRITIN (09/24/2016 7:50 AM CDT) athologist Signature Ferritin Serum 42 9 - 204 PN SOFT ng/mL Specimen Anatomical Collection Method Collection Time Receive d Time (Source) Location / / Volume Laterality 09/24/2016 7:50 AM 7 1:20 CDT PM CDT Narrative PN SOFT - 09/24/2016 3:28 PM CDT Performed at [facility] [address] [place] [address] CLIA number [id number] Olamide Rodney MD LAB_1 Performing Organization Address [facility] Phon e Number PN SOFT [address] [place] [address] Copper, Serum (09/24/2016 7:50 AM CDT) athologist Signature Copper, Serum 130 80 - 155 PN SOFT ug/dL Comment: INTERPRETIVE INFORMATION: Copper, Serum or Plasma Serum copper may be elevated with infect ion, inflammation, stress, and copper supplementation. In f emales, elevated copper may also be caused by oral contra ceptives and (concentrations may be elevate d up to 3 times normal during the third trimester). Serum copper may be reduced by use of co rticosteroids and zinc and by malnutrition or malabsorptio n. See Compliance Statement B at [email or web address] Performed by [facility], [address] [place] [address] [email or web address], Raffi Jha MD - Lab . Director Specimen Anatomical Collection Method Collection Time Receive d Time (Source) Location / / Volume Laterality 09/24/2016 7:50 AM 7 1:21 CDT PM CDT Narrative PN SOFT - 09/26/2016 7:31 AM CDT Performed at [facility] [address] [place] [address] CLIA number [id number] Olamide Rodney MD LAB_1 Performing Organization Address [facility] Phon e Number PN SOFT [address] [place] [address] Complete Blood Count-No Diff (09/24/2016 7:50 AM CDT) P athologist Signature White Blood Cell 7.7 3.8 - 11.0 PN SOFT Count k/cmm Red Blood Cell 3.93 3.70 - PN SOFT Count 5.20 m/cmm Hemoglobin 12.2 11.8 - PN SOFT 15.5 g/dL Hematocrit 36.9 35.0 - PN SOFT 46.0 % Mean Corpuscular 93.9 80.0 - PN SOFT Volume 100.0 fL RDW 14.7 11.0 - PN SOFT 15.0 % Platelet Count 242 140 - 450 PN SOFT k/cmm Specimen Anatomical Collection Method Collection Time Receive d Time (Source) Location / / Volume Laterality 09/24/2016 7:50 AM 7 7:50 CDT AM CDT Narrative PN SOFT - 09/24/2016 8:00 AM CDT Performed at [facility], [address] [place], [place] [address] CLIA number [id number] Olamide Rodney MD LAB_1 Performing Organization Address City/[facility] Phon e Number PN SOFT [address] [place] [address] LIPID PANEL AND DIRECT LDL(IF NEEDED) (09/24/2016 7:50 AM CDT) Analysis Performed At Patho [facility]ist Time Signature Cholesterol 163 0 - 199 PN SOFT mg/dL Triglycerides 135 4 - 149 PN SOFT mg/dL HDL Cholesterol 46 >39 mg/dL PN SOFT Cholesterol/HDL 3.5 PN SOFT Ratio Screen LDL Calculated 90 19 - 130 PN SOFT mg/dL Length Of Fast 12.0 PN SOFT Specimen Anatomical Collection Method Collection Time Receive d Time (Source) Location / / Volume Laterality 09/24/2016 7:50 AM 7 7:49 CDT AM CDT Narrative PN SOFT - 09/24/2016 8:09 AM CDT Performed at [facility], [address] [place] [address] CLIA number [id number] Olamide Rodney MD LAB_1 Performing Organization Address City/State/ZIP Code Phon e Number PN SOFT [address] [place] [address] (ABNORMAL) Basic Metabolic Panel (09/24/2016 7:50 AM CDT) athologist Signature Creatinine 0.80 0.55 - PN SOFT Serum 1.02 mg/dL Lab Glucose 135 (H) 70 - 100 PN SOFT mg/dL Comment: The stated glucose range is for the fast ing state. Non-fasting glucose range is 70-180 mg/d L CO2 22 22 - 31 mmol/L PN SOFT Chloride 106 98 - 109 mmol/L PN SOFT Potassium 3.9 3.5 - 5.2 mmol/L PN SOFT Sodium 140 136 - 145 mmol/L PN SOFT Blood Urea Nitrogen <10 9 - 26 mg/dL PN SOFT Calcium 9.3 8.4 - 10.2 mg/dL PN SOFT Est GFR Am >60 >60 mL/min/1.73m2 PN SOFT Est GFR Non-Afr Am >60 >60 mL/min/1.73m2 PN SOFT Comment: Normal>60, moderate decrease 30 - 59, se viktoriya decrease 15 - 29, renal failure <15 mL/min/1.73 m2 NOTE: ??Choose the eGFR result above mary ropriate for the race of the patient. Specimen Anatomical Collection Method Collection Time Receive d Time (Source) Location / / Volume Laterality 09/24/2016 7:50 AM 7 7:49 CDT AM CDT Narrative PN SOFT - 09/24/2016 8:09 AM CDT Performed at [facility], [address] [place] [address] CLIA number [id number] Olamide Rodney MD LAB_1 Performing Organization Address City/State/ZIP Code Phon e Number PN SOFT [address] [place] [address] [phone] documented in this encounter Visit Diagnoses Diagnosis Controlled type 2 diabetes mellitus with out complication, without long-term current use of insulin (HRC) - Primary Need for influenza vaccination Need for prophylactic vaccination and in oculation against influenza Other vitamin B12 deficiency anemia Embolism and thrombosis (HRC) Embolism and thrombosis of unspecified s ite Heterozygous factor V Leiden mutation (H RC) Primary hypercoagulable state Chronic insomnia Insomnia, unspecified S/P gastric bypass Bariatric surgery status Mild intermittent asthma without complic ation (HRC) Unspecified asthma Macrocytosis without anemia Other specified diseases of blood and bl ood-forming organs Depression, major, single episode, mild (HRC) Major depressive disorder, single episod e, mild Vitamin D deficiency (HRC) Unspecified vitamin D deficiency Status post bariatric surgery Bariatric surgery status Intestinal malabsorption, unspecified ty pe [K90.9] Status post bariatric surgery Bariatric surgery status Intestinal malabsorption, unspecified ty pe [K90.9] Embolism and thrombosis (HRC) Embolism and thrombosis of unspecified s ite S/P gastric bypass Bariatric surgery status documented in this encounter Care Teams Property Supervisor Relationship Specialty Start Date End Date Olamide Rodney MD PCP - General 09/25/10 01/11/21 [address] [place] [address] documented as of this encounter
--- OUTSIDE RECORDS SUMMARY | 2022-01-29 17:49 | XMS_ITS | Clinical Summary ---
:1960 Author Organization [employer] Address [address] [place] [address] Care Team Providers Name Role Phone Found, No Pcp MD Primary Care Provider Unavailable Source Comments You are receiving this document as you are listed as the primary care provider,follow-up provider, or the patient has been referred to you for consultation.This is in compliance with the Medicare and Medicaid EHR Incentive Program,which states Providers who transition their patient to another setting of careor provider of care or refers their patient to another provider of care shouldprovide summarycare record for each transition of care or referral. [place] Allergies Active Allergy Reactions Severity Noted Date Comments Fluticasone 04/22/2011 PN: laryngitis Lanolin Hives 03/09/2014 Oxycodone-Acetaminophen 09/24/2010 PN: LW Reaction: Itching, Pruritis Medications Medication Sig Dispensed Refills Start Date End Date Status aspirin 81 MG Take 2 tablets by 3 10/04/2010 Active tabletIndications: mouth daily PATY PADRON (every 24 hours). Jan 25, 2014 1:27 PM LW Addl Stopped taking aspirin Instr:hold until per instructions for lovenox dc'd procedure. cyanocobalamin 1000 MCG Take 1,000 mcg by 0 03/08/20 13 Active tablet mouth daily (every 24 hours). 6 times/week Multiple Take 2 tablets by 0 03/08/2013 A ctive Vitamins-Minerals mouth daily (MULTIVITAMIN ADULT OR) (every 24 hours). CALCIUM OR Take by mouth. 0 09/28/2015 Act ayanna Reported on 09/30/2016 beclomethasone (QVAR) Inhale 2 Puffs 8.7 g 11 09/30/2016 Active 40 MCG/ACT two times a day. inhalerIndications: Rinse Mild intermittent mouth/gargle asthma without after use complication (HRC) ALBUterol sulfate HFA Inhale 1-2 Puffs 2 Inhaler 3 09/30/2016 Active 108 (90 BASE) MCG/ACT every 4 hours as inhalerIndications: needed for Mild intermittent Wheezing. asthma without complication (HRC) albuterol 2.5 mg/3 mL, Inhale 1 Vial 75 mL 0 10/17/2016 Active 0.083%, (PROVENTIL) every 6 hours as nebulizer solution needed for Wheezing. LORazepam (ATIVAN) 0.5 Take 1 Tab by 15 Tab 0 04/16/2017 Active MG tablet mouth every 8 hours as needed for Anxiety. sertraline (ZOLOFT) 50 Take 1 Tab by 90 Tab 3 04/16/2017 Active MG tablet mouth daily. ondansetron (ZOFRAN) 4 Take 1 Tab by 30 Tab 0 04/16/2017 Active MG tablet mouth every 8 hours as needed for Nausea. Active Problems Problem Noted Date Vitamin D deficiency 09/28/2015 Depression, major, single episode, mild 05/11/2015 Circadian rhythm sleep disorder, delayed sleep phase t ype 05/25/2014 Osteopenia 03/07/2014 Macrocytosis without anemia 04/22/2012 Overview: thought secondary to daily alcohol consu mption Mild intermittent asthma without complication 08/19/19 12 Overview: trigger: Cats, mold, dust, ; Unspecified asthma(493.90) (HRC) Hx of cancer of endometrium 07/26/2011 Controlled type 2 diabetes mellitus without complicati on, without 04/23/2011 long-term current use of insulin Chronic insomnia 04/23/2011 Actinic keratoses 04/23/2011 Nondependent alcohol abuse 04/23/2011 Superficial thrombophlebitis 04/23/2011 S/P gastric bypass 04/23/2011 Heterozygous factor V Leiden mutation 08/08/2010 Overview: Factor V Leiden Hiatal hernia 08/08/2010 Overview: Hernia Hiatal Degeneration of lumbar or lumbosacral intervertebral d isc 08/08/2010 Overview: Lumbar Disc Degeneration Chronic deep vein thrombosis (DVT) of distal vein of r ight lower extremity 10/02/2005 Overview: LW Modifier: right leg, Factor V ledien deficiency LW Onset: 2000 ; Deep Venous Thrombosis Other vitamin B12 deficiency anemia 06/25/2004 Overview: secondary to gastric bypass Resolved Problems Problem Noted Date Resolved Date Alcoholism, chronic 05/08/2014 04/02/2016 Endometrial cancer 04/23/2011 08/19/2011 Chronic abdominal pain 04/23/2011 09/29/2016 Varicose vein of leg 04/23/2011 09/29/2016 Overview: Varicose veins Type 2 diabetes mellitus, controlled 10/02/2005 Overview: LW Onset: 74Lqs15 ; DM Asthma 10/02/2005 11/03/2006 Overview: LW Onset: 36Ydl45 ; Asthma NOS Depressive disorder 10/02/2005 04/23/2011 Overview: LW Onset: 1997 ; Depression NOS Depressive disorder 06/25/2004 04/02/2016 Overview: Depressive disorder, not elsewhere class ified (C) Phlebitis and thrombophlebitis of other deep vessels of lowe r 06/25/2004 04/02/2016 extremities Overview: right leg, Factor V Leiden positive, on coumadin Immunizations Name Administration Dates Next Due Flu Vac (3+ yrs) 05/15/2004, 03/27/1999 Flu Vac Preserv Free (3+yrs) 03/04/2012, 03/29/2011, 010, 05/22/2007, 05/06/2006, 04/03/2005 Influenza IIV4 (Quadrivalent) 0.5mL 04/16/2017, 04/02/2016, 03/22/2015, (26792) 03/09/2014, 03/08/2013 Influenza, Unspecified Formulation 04/06/1998, 04/07/1997 PPSV23 (Pneumovax) 09/30/2016, 10/02/2005, 04/06/1998 TDAP (ADACEL) 08/19/2011 Td 12/11/1999, 11/01/1996 Varicella 11/03/1996 (Deferred: Immune by Disease) Family History Medical History Relation Name Comments Clotting Disorder Father Factor V Leide n Emphysema Father Heart Disease Father Cancer Mother colon CA @ 62yo and in maternal aunt Cancer, Colon Mother Clotting Disorder Mother Factor V Leide n DVT/PE Mother Allergies Brother 1 Clotting Disorder Brother 1 Factor V Leide n Depression Brother 1 Thyroid Disorder Brother 1 Allergies Brother 2 Depression Brother 2 Allergies Brother 3 Depression Brother 3 Allergies Brother 4 Depression Brother 4 Thyroid Disorder Brother 5 hypothyroid Cancer, Breast Maternal Aunt Colon Polyps Maternal Aunt Cancer, Breast Other 1 cousin br ca Allergies Sister Depression Sister Multiple Sclerosis Sister Relation Name Status Comments Father (Age 79) Mother Alive Brother 1 Alive Brother 2 Alive Brother 3 Alive Brother 4 Alive Brother 5 Maternal Aunt Other 1 cousin Alive Sister Alive Other 2 Social History Tobacco Use Types Packs/Day Years [...] Assigned at Date Recorded Not on file Last Filed Vital Signs Vital Sign Reading Time Taken Comments Blood Pressure 136/82 04/16/2017 10:38 AM CDT Pulse 64 04/16/2017 10:38 AM CDT Temperature 36.8 ??C (98.3 ??F) 04/07/2017 12:15 PM CDT Respiratory Rate 22 04/07/2017 12:15 PM CDT Oxygen Saturation 97% 04/07/2017 12:15 PM CDT Inhaled Oxygen Concentration - - Weight 116.6 kg (257 lb) 04/16/2017 10:38 AM CDT Height 164.5 cm (5' 4.75) 09/30/2016 8:10 AM CDT Body Mass Index 43.1 09/30/2016 8:10 AM CDT Plan of Treatment Health Maintenance Due Date Last Done Comments Diabetes: Eye Exam 1960 Diabetes: Foot Exam 1960 Hep C Screening (Preventive 1960 Services) COVID-19 Vaccine (#1) 06/30/1959 HIV Screening (Preventive 1974 Services) Zoster/Shingles (1 of 2) 2008 Diabetes: HGBA1C 07/08/2017 04/07/2017, 09/24/2016, 03/29/2016, Additional history exists Diabetes: Urine 09/24/2017 09/24/2016, 09/21/2015, Microalbumin 09/02/2014, Additional history exists Adult Preventive Visit 09/30/2017 09/30/2016, 09/24/2004, 09/05/2003, Additional history exists Pneumococcal (2 - PCV) 09/30/2017 09/30/2016, 10/02/2005, 04/06/1998 Mammogram 01/09/2018 01/09/2017, 10/28/2015, 10/24/2014, Additional history exists Diabetes: Creatinine 04/07/2018 04/07/2017, 09/24/2016, 09/21/2015, Additional history exists Colonoscopy 01/25/2019 01/25/2014 (Completed), 09/26/2009 (Completed) Pap 10/01/2019 09/30/2016, 09/28/2015, 09/28/2014, Additional history exists DTaP/Tdap/Td (2 - Tdap) 08/19/2021 08/19/2011, 12/11/1999, 11/01/1996 Diabetes: Lipid Panel 09/24/2021 09/24/2016, 09/21/2015, 09/02/2014, Additional history exists Influenza (#1) 2022 04/16/2017, 04/02/2016, 03/22/2015, Additional history exists HepA Aged Out No longer eligib le based on patient 's age to complete this topic HepB Aged Out No longer eligib le based on patient 's age to complete this topic Hib Aged Out No longer eligib le based on patient 's age to complete this topic IPV (Polio) Aged Out No longer eligib le based on patient 's age to complete this topic MCV4 Aged Out No longer eligib le based on patient 's age to complete this topic Insurance Payer Benefit Plan / Subscriber ID Effective Dates Phone Addre ss Type Group BCBS BCBS OR [id number] 2016-Present [address] [address] [place] [address] Guarantor Name Account Type Relation to Date of Phone Billing Patient Address Paty Stovall Personal/Family Self 1960 [address] (Home) [address] [place] [address] [facility] (Work) [place] [address] Paty Stovall Personal/Family Self 1960 [id number] (Home) [facility] [phone] [place] (Work) [address] PATY YEAGER Personal/Family Self 1960 [address] (Home) [address] [place] [address] Care Teams Collating Machine Operator Relationship Specialty Start Date End Date Found, No Pcp, PCP - General 08/27/21 [address] [place] [address]
--- OUTSIDE RECORDS SUMMARY | 2022-01-29 17:49 | XMS_ITS | Encounter Summary ---
:1960 Author Organization [employer] Address [address] [place] [address] Care Team Providers Name Role Phone Olamide Rodney MD Primary Care Provider Reason for Visit Reason Onset Date Comments Medication Questions 10/17/2016 Encounter Details Date Type Department Care Team Description 10/17/2016 Telephone [facility] re Olamide Rodney, Medication Questions [id number] [facility] [address] [address] [facility] [phone] [place] [address] (Wo rk) Social History Tobacco Use [...] documented as of this encounter Nursing Notes Abiola Rodriguez RN - 10/17/2016 5:18 PM CDT [facility] pharmacist calling in regarding clarification on the following medications. Prescribing Provider Encounter Provider ?? Nina Piedra MD None ?? Medication Detail ?? Disp Refills Start End GENA ?? amoxicillin-clavulanate (AUGMENTIN) 875-125 mg per tablet 14 Tab 0 10/17/2016 10/27/2016 -- ?? Sig - Route: Take 1 Tab by mouth two times a day for 10 days. - Oral documented in this encounter Plan of Treatment Not on filedocumented as of this encounter Visit Diagnoses Not on filedocumented in this encounter Care Teams Assistant Scientist Relationship Specialty Start Date End Date Olamide Rodney MD PCP - General 09/25/10 01/11/21 [address] [place] [address] documented as of this encounter
--- OUTSIDE RECORDS SUMMARY | 2022-01-29 17:49 | XMS_ITS | Encounter Summary ---
:1960 Author Organization [employer] Address [address] [place] [address] Care Team Providers Name Role Phone Olamide Rodney MD Primary Care Provider Reason for Visit Procedure/Equipment (Routine) - Incomplete Specialty Diagnoses / Procedures Referred By Contact Refer red To Contact Diagnoses Abdominal pain, unspecified abdominal location Ines Valdes PA-C [place] [address] [place] [address] Referral ID Status Reason Start Date Expiration Date Visits V isits Requested Authorized [id number] Incomplete 04/07/2017 07/07/2018 1 1 Encounter Details Date Type Department Care Team Description 04/07/[address] Scan Abdominal pain, unspecified [address] [facility] abdominal location [place], [place] [id number] Social History Tobacco Use Types Packs/Day Years [...] Name Priority Date/Time Associated Diagnosis Comme nts CT ABD PELVIS W IV STAT 04/07/2017 2:23 PM Abdominal pain, Results for this CONT CDT unspecified procedure are i n abdominal location the resul ts section. documented in this encounter Results CT Abd Pelvis W IV Cont (04/07/2017 2:23 PM CDT) Anatomical Region Laterality Modality Abdomen, Pelvis Computed Tomography Specimen (Source) Anatomical Collection Method Collection Time Re ceived Time Location / / Volume Laterality 04/07/2017 2:07 PM CDT Impressions 04/07/2017 2:36 PM CDT IMPRESSION: ?? 1. No CT-apparent etiology for patient's mid-upper abdominal pain. No evidence of small bowel obstruction. Narrative 04/07/2017 2:36 PM CDT COMPARISON: ??None. TECHNIQUE: ??Images were obtained throug h the abdomen and pelvis following the administration of oral and 100 mL IOPAMIDOL 61 % IV SOLN contrast. FINDINGS: Small hiatal hernia. Postsurgical change s of Nino-en-Y gastric bypass, without evidence of complication. Mild prominence of the jejunal-jejunal anastomosis is within normal limits, and is without surrou nding inflammatory change. The gallbladd er surgically absent. No small bowel obstruction. Terminal ileum decompressed. The appendix noninflamed. Portions of the colon are decompressed, limiting evaluati on. There is no evidence of acute divert iculitis. Diastasis of the rectus abdominis musculature, with fat-containing paraumbilical hernia (series 2, image 55); no evidence of umbilical hernia fat strand ing or fluid to suggest fat-necrosis. No acute fracture. Degenerative changes at L5-S1. Procedure Note James Rich MD - 04/07/2017Format ting of this note might be different from the original. COMPARISON: None. TECHNIQUE: Images were obtained through the abdomen and pelvis following the administration of oral and 100 mL IOPAMIDOL 61 % IV SOLN contrast. FINDINGS: Small hiatal hernia. Postsurgical change s of Nino-en-Y gastric bypass, without evidence of complication. Mild prominence of the jejunal-jejunal anastomosis is within normal limits, and is without surrounding inflammatory change. The gallbladder amauri gically absent. No small bowel obstruction. Terminal ileum decompressed. The appendix noninflamed. Portions of the colon are decompressed, limiting evaluation. There is no evidence of acute diverticulitis. Diasta sis of the rectus abdominis musculature, with fat-containing paraumbilical hernia (series 2, image 55); no evidence of umbilical hernia fat stranding or fluid to suggest fat-necrosis. No acute fracture. Degener ative changes at L5-S1. IMPRESSION IMPRESSION: 1. No CT-apparent etiology for patient's mid-upper abdominal pain. No evidence of small bowel obstruction. Ines Zarate Lucio PA-C RAD CT documented in this encounter Visit Diagnoses Diagnosis Abdominal pain, unspecified abdominal lo cation documented in this encounter Administered Medications Inactive Administered Medications - up to 3 most recent administrations Medication Order MAR Action Action Date Dose Rate Site iopamidol (ISOVUE-300) 61 % Given 04/07/2017 2:30 PM CDT 100 mL injection 100 mL 100 mL, Intravenous, ONCE, On Fri04/07/17 at 1430, For 1 dose sodium chloride 0.9% injection 10 mL Given 04/07/2017 2:30 PM CDT 10 mL 10 mL, Intravenous, ONCE, On Fri04/07/17 at 1430, For 1 dose documented in this encounter Care Teams Fur Polisher Relationship Specialty Start Date End Date Olamide Rodney MD PCP - General 09/25/10 01/11/21 [address] [place], [place] [id number] documented as of this encounter
--- OUTSIDE RECORDS SUMMARY | 2022-01-29 17:49 | XMS_ITS | Encounter Summary ---
:1960 Author Organization [employer] Address [address] [place] [address] Care Team Providers Name Role Phone Olamide Rodney MD Primary Care Provider Reason for Referral Procedure/Equipment (Routine) - Incomplete Specialty Diagnoses / Procedures Referred By Contact Refer red To Contact Diagnoses Cough Nina Piedra MD Procedures Nebulizer with compressor, adult ([id number], [id number]) [address] [place], [place] [address] Referral ID Status Reason Start Date Expiration Date Visits V isits Requested Authorized [id number] Incomplete 10/17/2016 01/16/2018 1 1 Procedure/Equipment (Routine) - Incomplete Specialty Diagnoses / Procedures Referred By Contact Refer red To Contact Diagnoses Cough Nina Piedra MD Procedures XR Chest 2 Views [address] [place], [place] [address] Referral ID Status Reason Start Date Expiration Date Visits V isits Requested Authorized [id number] Incomplete 10/17/2016 01/16/2018 1 1 Reason for Visit Reason Comments Cough Encounter Details Date Type Department Care Team Description 10/17/[address] [facility] Nina Piedra A, Cough (Primary Dx); Care MD Fever, unspecified fever cause; [address] Mild intermit tent asthma without complication; [address] Acute sinusitis, recurrence not specifie d, [place] [address] [phone] Social History Tobacco Use Types Packs/Day Years [...] Sign Reading Time Taken Comments Blood Pressure 158/98 10/17/2016 3:28 PM CDT Pulse 95 10/17/2016 3:10 PM CDT Temperature 38.2 ??C (100.7 ??F) 10/17/2016 3:10 PM CDT Respiratory Rate 20 10/17/2016 3:10 PM CDT Oxygen Saturation 97% 10/17/2016 3:10 PM CDT Inhaled Oxygen Concentration - - Weight - - Height - - Body Mass Index - - documented in this encounter Medications at Time of Discharge Medication Sig Dispensed Refills Start Date End Date albuterol 2.5 mg/3 mL, Inhale 1 Vial every 75 mL 0 09/22 0.083%, (PROVENTIL) 6 hours as needed nebulizer solution for Wheezing. ALBUterol sulfate HFA 108 Inhale 1-2 Puffs 2 Inhaler 3 09/21 (90 BASE) MCG/ACT every 4 hours as inhalerIndications: Mild needed for intermittent asthma Wheezing. without complication (HRC) aspirin 81 MG Take 2 tablets by 3 10/04/2010 tabletIndications: mouth daily (every NAZSPATY CHEN Jan 24 hours). LW Addl 2013 1:27 PM Stopped Instr:hold until taking aspirin per lovenox dc'd instructions for procedure. beclomethasone (QVAR) 40 Inhale 2 Puffs two 8.7 g 11 03/2017 MCG/ACT times a day. Rinse inhalerIndications: Mild mouth/gargle after intermittent asthma use without complication (HRC) CALCIUM OR Take by mouth. 0 09/28/2015 Reported on 09/30/2016 cyanocobalamin 1000 MCG Take 1,000 mcg by 0 03/08 tablet mouth daily (every 24 hours). 6 times/week Multiple Vitamins-Minerals Take 2 tablets by 0 (MULTIVITAMIN ADULT OR) mouth daily (every 24 hours). amoxicillin-clavulanate Take 1 Tab by mouth 14 Tab 0 10/27/2016 (AUGMENTIN) 875-125 mg per two times a day for tablet 10 days. LORazepam (ATIVAN) 0.5 MG Take 1 Tab by mouth 15 Tab 0 1 04/16/2017 tablet every 8 hours as needed for Anxiety. ondansetron (ZOFRAN) 4 MG Take 1 Tab by mouth 30 Tab 0 1 04/16/2017 tablet every 8 hours as needed for Nausea. sertraline (ZOLOFT) 50 MG TAKE 1 TABLET BY 90 Tab 3 04/2404/16/2017 tablet MOUTH DAILY documented as of this encounter ED Notes Nina Piedra MD - 10/17/2016 4:14 PM CDT NAME: PATY LLAMAS MR#: [id number] CSN: [id number] AUTHENTICATING CLINICIAN: Nina Piedra MD CONFIRM #: [id number] LOC: 520 URGENT CARE PROGRESS NOTE DATE OF VISIT: 10/17/2016 : 1960 SUBJECTIVE: Patient comes in today complaining of persistent cough which has been ongoing since May. She discussed it with her provider on September 30, at which time chest x-ray was clear. She was given prednisone for a week which helped but did not resolve the symptoms and on Friday she developed a temperature up to 101. She continues to have sinus congestion, some sinus pain and pressure. Tries to avoid using her inhaler because she feels as though the propellent aggravates her, and she says that if sheuses her inhaler excessively she thinks she gets an infection from it. She used the inhaler once yesterday. PHYSICAL EXAM: GENERAL: She is in no apparent distress but coughing frequently. VITAL SIGNS: Temperature is a 100.7. Pulse 95. Respirations 20. Blood pressure 166/103, repeat 158/98. O2 sat 97%. HEENT: TMs are clear. Conjunctivae clear. Oropharynx is clear. LUNGS: She has coarse wheezes and rales throughout. CARDIAC: Regular rate and rhythm without murmurs, gallops, rubs. Patient received a DuoNeb while here and had considerable improvement in her symptoms. Chest x-ray is clear. ASSESSMENT/PLAN: Prolonged cough. Now with the development of fever. Could suggest possibility of a sinus infection. Will treat with Augmentin. She also did quite well with the nebulizer here, tolerated it better than her metered-dose inhaler. She is sent home with a nebulizer for use at home, given that I too am suspicious that part of her chronic cough is from asthma. Followup in urgent care is otherwise p.r.n. PRAVIN:MEDTracie C: CONFIRM #: [id number] documented in this encounter Plan of Treatment Not on filedocumented as of this encounter Procedures Procedure Name Priority Date/Time Associated Diagnosis Comme nts XR CHEST 2 VIEWS Routine 10/17/2016 3:51 PM Cough Resul ts for this CDT procedure are i n the results section. documented in this encounter Results XR Chest 2 Views (10/17/2016 3:51 PM CDT) Anatomical Region Laterality Modality Chest, Lung Computed Radiography Specimen (Source) Anatomical Collection Method Collection Time Re ceived Time Location / / Volume Laterality 10/17/2016 3:45 PM CDT Narrative 10/17/2016 3:55 PM CDT COMPARISON: ??09/30/2016 FINDINGS: ??Two views were obtained. ??T he lungs and costophrenic angles are clear. ??Heart size and pulmonary vascularity are within normal limits. ??There is no evidence of pneumothorax or pleural effusion. Bony thorax is unremarkable. Procedure Note James Rosenthal MD - 10/17/2016Formatti ng of this note might be different from the original. COMPARISON: 09/30/2016 FINDINGS: Two views were obtained. The l ungs and costophrenic angles are clear. Heart size and pulmonary vascularity are within normal limits. There is no evidence of pneumothorax or pleural effusion. Bony thorax is unremarkable. Nina Piedra MD RAD GD documented in this encounter Visit Diagnoses Diagnosis Cough - Primary Fever, unspecified fever cause Mild intermittent asthma without complic ation (HRC) Unspecified asthma Acute sinusitis, recurrence not specifie d, unspecified location Triage Assessment Note - Selena Gongora RN - 10/17/2016 3:06 PM CDT Has had a cough for a few mos, was a little better after prednisone and inhaler but now returned, sinus congestion and chest congestion. Had a CXR 09/30 neg documented in this encounter Administered Medications Inactive Administered Medications - up to 3 most recent administrations Medication Order MAR Action Action Date Dose Rate Site acetaminophen (TYLENOL) oral Given 10/17/2016 3:32 PM CDT 325 mg solution 325 mg 325 mg, Oral, ONCE, On Komal 10/17/16 at 1545, For 1 dose ipratropium-albuterol (DUONEB) 0.5-2.5 MG/3ML Given 10/18/19 3:33 PM CDT 3 mL nebulizer solution 3 mL 3 mL, Inhalation, ONCE, On Komal 10/17/16 at 1545, For 1 dose, Administer VIA RT Nebulization documented in this encounter Active and Recently Administered Medications Times are shown in CDT. Scheduled Medication Order 10/15/2016 10/16/2016 10/17/2016 acetaminophen (TYLENOL) oral solution 325 mg (COMPLETED) 1532 (Given - Provider: Rebecca Suresh RN) 325 mg, Oral, ONCE, Komal 10/17/16 at 1545, For 1 dose ipratropium-albuterol (DUONEB) 0.5-2.5 M G/3ML nebulizer solution 3 mL (COMPLETED) 1533 (Given - Provid er: Rebecca Suresh, RN) 3 mL, Inhalation, ONCE, Komal 10/17/16 at 1 545, For 1 dose, Administer VIA RT Nebulization documented in this encounter Care Teams Surgical Training Specialist Relationship Specialty Start Date End Date Olamide Rodney MD PCP - General 09/25/10 01/11/21 [address] [place] [address] documented as of this encounter
--- OUTSIDE RECORDS SUMMARY | 2022-01-29 17:49 | XMS_ITS | Encounter Summary ---
:1960 Author Organization [employer] Address [address] [place] [address] Care Team Providers Name Role Phone Olamide Rodney MD Primary Care Provider Encounter Details Date Type Department Care Team Description 10/28/2015 Imaging [facility] Routine physical examination [address] [place], [place] [address] Social History Tobacco Use Types Packs/Day Years Used Date Smoking Tobacco: Never Alcohol Use Standard Drinks/Week Comments Yes 0 (1 standard drink = 0.6 oz pure alcoho l) mod Sex Assigned at Date Recorded Not on file documented as of this encounter Plan of Treatment Not on filedocumented as of this encounter Procedures Procedure Name Priority Date/Time Associated Diagnosis Comme nts MM MAMMOGRAM Routine 10/28/2015 10:19 AM Routine physical Resu lts for this SCREENING BILAT W CDT examination procedure are in CAD the results section. documented in this encounter Results MM Mammogram Screening Bilat W CAD (10/28/2015 10:19 AM CDT) Anatomical Region Laterality Modality Breast Bilateral Mammography Specimen (Source) Anatomical Location Collection Method / Collectio n Time Received Time / Laterality Volume Impressions 10/30/2015 8:00 AM CDT : BI-RADS 1 Negative (overall) Follow Up Mammogram in 1 year - Bilatera l The results and recommendations of this examination will be communicated to the patient by the [facility] and we will attempt to schedule any recommended imaging follow up with the patient. Narrative 10/30/2015 8:00 AM CDT Compared to: 10/24/2014 MM Mammogram Screening Bilateral W Cad, 10/01/2013 MM Mammogram Screening Bilateral W Cad, 09/22/2012 Mammogram Bilateral Breast Findings: Bilateral digital screening mammogram wa s performed. There are scattered areas of fibroglandular density in the b reasts. No significant mass, calcifications or o ther abnormalities are seen in either breast. Procedure Note aMrio Severino MD - 02/21/2016 Compared to: 10/24/2014 MM Mammogram Scr eening Bilateral W Cad, 10/01/2013 MM Mammogram Screening Bilateral W Cad, 09/22/2012 Mammogram Bilateral Breast Findings: Bilateral digital screening mammogram wa s performed. There are scattered areas of fibroglandular density in the b reasts. No significant mass, calcifications or o ther abnormalities are seen in either breast. IMPRESSION : BI-RADS 1 Negative (overall) Follow Up Mammogram in 1 year - Reggie jo The results and recommendations of this examination will be communicated to the patient by the [facility] and we will attempt to schedule any recommended imaging follow up with the patient. Olamide Rodney MD RAD SHERYL documented in this encounter Visit Diagnoses Diagnosis Routine physical examination Routine general medical examination at a health care facility documented in this encounter Care Teams Fructose Loader Relationship Specialty Start Date End Date Olamide Rodney MD PCP - General 09/25/10 01/11/21 [address] [place] [address] documented as of this encounter
--- OUTSIDE RECORDS SUMMARY | 2022-01-29 17:49 | XMS_ITS | Encounter Summary ---
:1960 Author Organization [employer] Address [address] [place] [address] Care Team Providers Name Role Phone Olamide Rodney MD Primary Care Provider Reason for Visit Procedure/Equipment (Routine) - Incomplete Specialty Diagnoses / Procedures Referred By Contact Refer red To Contact Diagnoses Cough Nina Piedra MD Procedures XR Chest 2 Views [address] [place], [place] [address] Referral ID Status Reason Start Date Expiration Date Visits V isits Requested Authorized [id number] Incomplete 10/17/2016 01/16/2018 1 1 Encounter Details Date Type Department Care Team Description 10/17/2016 Imaging [facility] [address] [place] [address] Social History Tobacco Use Types Packs/Day Years [...] GD documented in this encounter Visit Diagnoses Not on filedocumented in this encounter Care Teams Senior Media Buyer Relationship Specialty Start Date End Date Olamide Rodney MD PCP - General 09/25/10 01/11/21 [address] [place], [place] [id number] documented as of this encounter
--- OUTSIDE RECORDS SUMMARY | 2022-01-29 17:49 | XMS_ITS | Encounter Summary ---
:1960 Author Organization [employer] Address [address] [place] [address] Care Team Providers Name Role Phone Olamide Rodney MD Primary Care Provider Encounter Details Date Type Department Care Team Description 04/07/2017 Notes/Orders [facility] Olamide Rodney MD without complication [id number] ([facility]) (Primary Dx) [place] [address] Bl [phone] [place] [address] Social History Tobacco Use Types Packs/Day Years [...] filedocumented as of this encounter Visit Diagnoses Diagnosis Diabetes mellitus without complication ( [facility]) - Primary Type II or unspecified type diabetes rod litus without mention of complication, not stated as uncontrolled documented in this encounter Care Teams Rapier Insertion Loom Fixer Relationship Specialty Start Date End Date Olamide Rodney MD PCP - General 09/25/10 01/11/21 [address] [place], [place] [address] documented as of this encounter
--- OUTSIDE RECORDS SUMMARY | 2022-01-29 17:49 | XMS_ITS | Encounter Summary ---
:1960 Author Organization [employer] Address [address] [place] [address] Care Team Providers Name Role Phone Olamide Rodney MD Primary Care Provider Reason for Referral Procedure/Equipment (Routine) - Incomplete Specialty Diagnoses / Procedures Referred By Contact Refer red To Contact Diagnoses Abdominal pain, unspecified abdominal location Ines Valdes PA-C [place] [address] [place] [address] Referral ID Status Reason Start Date Expiration Date Visits V isits Requested Authorized [id number] Incomplete 04/07/2017 07/07/2018 1 1 Reason for Visit Reason Comments ABDOMINAL PAIN--LUQ--ED pain has been getting worse onset x yesterday. Denies fever. Encounter Details Date Type Department Care Team Description 04/07/2017 Hospital Encounter [facility] Ines Valdes Ab dominal pain, unspecified abdominal location; Care PA-C Nausea; [address] [place] [place] [phone] Social History Tobacco Use Types Packs/Day Years [...] Sign Reading Time Taken Comments Blood Pressure 179/92 04/07/2017 12:15 PM CDT Pulse 100 04/07/2017 12:15 PM CDT Temperature 36.8 ??C (98.3 ??F) 04/07/2017 [...] by 3 10/04/2010 tabletIndications: mouth daily (every TROSVIGPATY Tue Jan 24 hours). LW Addl 2013 1:27 [...] ADULT OR) mouth daily (every 24 hours). LORazepam (ATIVAN) 0.5 MG Take 1 Tab [...] documented as of this encounter ED Notes Ines Valdes PA-Anton - 04/07/2017 12:00 PM CDT NAME: PATY LLAMAS MR#: [id number] CSN: [id number] AUTHENTICATING CLINICIAN: PRASANNA Mei CONFIRM #: [id number] LOC: 520 URGENT CARE PROGRESS NOTE DATE OF VISIT: 04/07/2017 : 1960 This is a 56-year-old female who presents today for a concern of abdominal pain. She said she has had left-sided abdominal pain since yesterday and it has progressively gotten worse. She has no pain atrest. It is only with movement. There was no trauma. She denies any nausea or vomiting. No fever or chills. She is having normal daily bowel movements. No melena or hematochezia. No urinary frequency, urgency, or dysuria. She has no history of similar symptoms. She has had a gastric bypass surgery. She denies any use NSAIDs. She does try to avoid these. She states that she did drink 2 bottles of winelast night. The patient says she is a binge drinker. She calls herself an alcoholic. She says she has not been able to quit at this point. She does not think she hurt herself during a drinking binge. She was not having any dry heaving or vomiting yesterday. She is really concerned about a blood clot because she has had a history of a DVT in her leg in the past. The patient has had gastric bypass surgery, cholecystectomy and a total hysterectomy. She has depression. PAST MEDICAL HISTORY: Other past medical history reviewed online in [employer]. OBJECTIVE: GENERAL: She appears well in no distress. VITAL SIGNS: Reviewed in Epic. She appears well-hydrated. She has no CVA tenderness. LUNGS: Clear throughout. HEART: Regular rate and rhythm. Sharp S1, S2. No murmurs. ABDOMEN: Mild to moderately tender in the left mid to upper abdomen without guarding. There is no rebound tenderness. She has normal bowel sounds throughout. If she is sitting or in the supine positionor still, she has no pain. If the patient moves slightly, she has a lot of sharp pain. CLINICAL COURSE IN URGENT CARE: The patient was recommended to do a urine. She was never able to give it throughout the visit. She had a CBC. Lipase within normal limits. Comprehensive metabolic panel showed a slightly elevated aspartate aminotransferase at 41. Glucose 133. Total protein slightly elevated 8.5. The patient was sent for CT scan of the abdomen and pelvis with contrast, which did not reveal any acute abnormalities. Thepatient was still unable to give a urinalysis. When I went back in the room after recheck, the patient was dry heaving. The patient feels this is due to withdrawal because it is a common problem for her. She is given 4 mg of Zofran. ASSESSMENT: Abdominal pain, I feel to be abdominal wall pain. I feel this is possibly due to injuring or dry heaving. I told her if she has any fever, change, worsening symptoms, she should be re-evaluated, but otherwise I would make a followup appointment with her primary care provider for ongoing symptoms. At this time, I recommend that she use a pillow or hold her abdominal wall with movement, she did requesta refill of lorazepam for anxiety, but I recommend that she request refill through her primary care provider, pharmacy. The patient is comfortable with the plan. Discharged in stable condition. The patient was comfortable with plan. MHT:DUANE C: CONFIRM #: [id number] documented in this encounter Plan of Treatment Not on filedocumented as of this encounter Procedures Procedure Name Priority Date/Time Associated Diagnosis Comme nts COMPLETE BLOOD STAT 04/07/2017 1:05 PM Abdominal pain, Resu lts for this COUNT-W/DIFF CDT unspecified procedure are i n abdominal location the resul ts section. COMP METABOLIC PANEL STAT 04/07/2017 1:05 PM Abdominal pain , Results for this CDT unspecified procedure are i n abdominal location the resul ts section. DIFFERENTIAL STAT 04/07/2017 1:05 PM Results f or this CDT procedure are i n the results section. LIPASE STAT 04/07/2017 1:05 PM Abdominal pain, Result s for this CDT unspecified procedure are i n abdominal [...] No evidence of small bowel obstruction. Ines Valdes PA-C RAD CT Differential (04/07/2017 1:05 PM CDT) athologist Signature Absolute 4.6 1.8 - 8.0 PN SOFT Neutrophils k/cmm Absolute 3.7 1.1 - 4.0 PN SOFT Lymphocytes k/cmm Absolute 0.6 0.2 - 0.8 PN SOFT Monocytes k/cmm Absolute 0.1 0.0 - 0.5 PN SOFT Eosinophils k/cmm Absolute 0.1 0.0 - 0.2 PN SOFT Basophils k/cmm Immature 0.3 0.0 - 0.5 PN SOFT Granulocytes % Specimen Anatomical Collection Method Collection Time Receive d Time (Source) Location / / Volume Laterality 04/07/2017 1:05 PM 7 1:17 CDT PM CDT Narrative PN SOFT - 04/07/2017 1:20 PM CDT Performed at [facility], [address] [id number] CLIA number [id number] Ines Tessa Lucio ALDANA LAB_1 Performing Organization Address City/State/ZIP Code Phon e Number PN SOFT [address] [place] [address] (ABNORMAL) Comp Metabolic Panel (04/07/2017 1:05 PM CDT) [facility] gist Method Time Signature Aspartate 41 (H) 10 - 40 PN SOFT Aminotransferase U/L Lab Glucose 133 (H) 70 - 100 PN SOFT mg/dL Comment: The stated glucose range is for the fast ing state. Non-fasting glucose range is 70-180 mg/d L Bilirubin Total 0.4 0.2 - 1.2 mg/dL PN SOFT Calcium 9.5 8.4 - 10.2 mg/dL PN SOFT Sodium 140 136 - 145 mmol/L PN SOFT Potassium 4.0 3.5 - 5.2 mmol/L PN SOFT Blood Urea Nitrogen 11 9 - 26 mg/dL PN SOFT Albumin 4.0 3.4 - 5.0 g/dL PN SOFT Chloride 98 98 - 109 mmol/L PN SOFT Alk Phos 97 40 - 150 U/L PN SOFT Protein Total, Serum 8.5 (H) 6.4 - 8.3 g/dL PN S OFT Creatinine Serum 0.60 0.55 - 1.02 mg/dL PN SO FT Est GFR Am >60 >60 mL/min/1.73m2 PN SOFT Est GFR Non-Afr Am >60 >60 mL/min/1.73m2 PN SOFT Comment: Normal>60, moderate decrease 30 - 59, se viktoriya decrease 15 - 29, renal failure <15 mL/min/1.73 m2 NOTE: ??Choose the eGFR result above mary ropriate for the race of the patient. Alanine Aminotransferase 36 9 - 55 U/L PN S OFT CO2 28 22 - 31 mmol/L PN SOFT Specimen Anatomical Collection Method Collection Time Receive d Time (Source) Location / / Volume Laterality 04/07/2017 1:05 PM 7 1:17 CDT PM CDT Narrative PN SOFT - 04/07/2017 1:35 PM CDT Performed at [facility], [address] [place] [address] CLIA number [id number] Ines Valdes PA-C LAB_1 Performing Organization Address City/State/ZIP Code Phon e Number PN SOFT [address] [place] [address] Lipase (04/07/2017 1:05 PM CDT) P athologist Signature Lipase 31 8 - 78 U/L PN SOFT Specimen Anatomical Collection Method Collection Time Receive d Time (Source) Location / / Volume Laterality 04/07/2017 1:05 PM 7 1:17 CDT PM CDT Narrative PN SOFT - 04/07/2017 1:35 PM CDT Performed at [facility], [facility] [address] [place] [address] CLIA number [id number] Ines BUCHANANC LAB_1 Performing Organization Address [facility] Code Phon e Number PN SOFT [address] [place] [address] (ABNORMAL) Complete Blood Count-W/Diff (04/07/2017 1:05 PM CDT) [facility] gist Method Time Signature White Blood Cell 9.0 3.8 - 11.0 PN SOFT Count k/cmm Red Blood Cell 4.42 3.70 - PN SOFT Count 5.20 m/cmm Hemoglobin 13.6 11.8 - PN SOFT 15.5 g/dL Hematocrit 40.5 35.0 - PN SOFT 46.0 % Mean Corpuscular 91.6 80.0 - PN SOFT Volume 100.0 fL RDW 15.3 (H) 11.0 - PN SOFT 15.0 % Platelet Count 334 140 - 450 PN SOFT k/cmm Specimen Anatomical Collection Method Collection Time Receive d Time (Source) Location / / Volume Laterality 04/07/2017 1:05 PM 7 1:17 CDT PM CDT Narrative PN SOFT - 04/07/2017 1:19 PM CDT Performed at [facility], [address] [place] [address] CLIA number [id number] Ines Valdes PA-C LAB_1 Performing Organization Address [facility] Phon e Number PN SOFT [address] [place] [address] [phone] documented in this encounter Visit Diagnoses Diagnosis Abdominal pain, unspecified abdominal lo cation Nausea Nausea alone Alcohol abuse Alcohol abuse, unspecified Abdominal pain, unspecified abdominal lo cation Triage Assessment Note - Miguelina Carrillo LPN - 04/07/2017 12:10 PM CDT Chief Complaint Patient presents with ??? ABDOMINAL PAIN--LUQ--ED pain has been getting worse onset x yesterday. Denies fever. documented in this encounter Administered Medications Inactive Administered Medications - up to 3 most recent administrations Medication Order MAR Action Action Date Dose Rate Site diatrizoate meglumine-sodium Given 04/07/2017 1:39 PM CDT 15 mL (GASTROGRAFIN) oral solution 15 mL 15 mL, Oral, ONCE, On Fri04/07/17 at 1400, For 1 dose ondansetron (ZOFRAN-ODT) disintegrating tablet Given 1 2:51 PM CDT 4 mg 4 mg 4 mg, Oral, ONCE, On Fri04/07/17 at 1515, For 1 dose, Do not swallow tablet whole. Allow to dissolve on the tongue without chewing. documented in this encounter Active and Recently Administered Medications Times are shown in CDT. Scheduled Medication Order 04/05/2017 04/06/2017 04/07/2017 diatrizoate meglumine-sodium (GASTROGRAFIN) oral solution 15 mL (COMPLETED) 1339 (Given - Provider: Augustina Hatch RN) 15 mL, Oral, ONCE, Fri04/07/17 at 1400, For 1 dose ondansetron (ZOFRAN-ODT) disintegrating tablet 4 mg (COMPLETED) 1451 (Given - Provider: Miguelina Carrillo LPN) 4 mg, Oral, ONCE, Fri04/07/17 at 1515, For 1 dose, Do not swallow tablet whole. Allow to dissolve on the tongue without chewing. documented in this encounter Care Teams Avionics System Engineer Relationship Specialty Start Date End Date Olamide Rodney MD PCP - General 09/25/10 01/11/21 [address] [place] [address] documented as of this encounter
--- OUTSIDE RECORDS SUMMARY | 2022-01-29 17:49 | XMS_ITS | Encounter Summary ---
:1960 Author Organization [facility] Address [address] [place] [address] Care Team Providers Name Role Phone Olamide Rodney MD Primary Care Provider Reason for Visit Reason Comments Follow-up Encounter Details Date Type Department Care Team Description 04/16/2017 Office Visit [facility] Olamide Rodney type 2 diabetes mellitus without complication, without long-term current use of insulin (HRC) (Primary Dx); Hayley Antoine MD Chronic insomnia; [address] S/P gastric bypass; [place] [address] Blvd Mild intermittent asthma without complic ation; [phone] [place], [place] Macrocytos is without anemia; [address] Depression, major, single episode, mild (HRC); [phone] Vitamin D defic iency; (Work) Nondependent alcohol abuse; Hiatal lavinia rnia; Other vitamin B 12 deficiency anemia Social History Tobacco Use Types Packs/Day Years [...] Pulse 64 04/16/2017 10:38 AM CDT Temperature - - Respiratory Rate - - Oxygen Saturation - - Inhaled Oxygen Concentration - - Weight 116.6 kg (257 lb) 04/16/2017 10:38 AM CDT Height - - Body Mass Index 43.1 09/30/2016 8:10 AM CDT documented in this encounter Progress Notes Olamide Rodney MD - 04/16/2017 10:40 AM CDT SUBJECTIVE: 56 y.o. -year-old female followup type 2 diabetes mellitus, gastric bypass. She has type 2 diabetes mellitus. Diet control. She is status post gastric bypass. Her weight has increased a fair amount. Her A1c has been fairly stable, recent A1c is 6.3, stable She does not check the blood glucose. She is not on any medications for diabetes. She is status post gastric bypass. She does take vitamin B12 and multivitamin daily. She has some iron in the multivitamin but does not take it separate iron supplement. She has never had any difficulty with low ferritin. She has had good labs in the past with no significant nutritional deficiencies. Vitamin D has been low, takes 1000 international units most days. Recently ALT normal, and AST at 41, decreased. She states she is not drinking daily alcohol. Did move to [facility] in October. Was laid off from her job, is looking now. Was at last week with abdominal pains. Started after episode of drinking and wretching. Better now. On sertaline for history depression, working well. Very rare use lorazepam for anxiety. Rare use of albuterol. Data: Lab Results Component Value Date/Time HGB A1C 6.3 (H) 04/07/2017 1305 HGB A1C 6.4 (H) 09/24/2016 0750 HGB A1C 6.2 (H) 03/29/2016 1600 Hgb A1c 5.0 03/25/2003 0844 Hgb A1c 6.4 (H) 07/05/2002 0936 Hgb A1c 6.2 (H) 03/19/2002 0826 Lab Results Component Value Date/Time LDL, Calc. 71 09/19/2004 0824 LDL Calculated 90 09/24/2016 0750 Lab Results Component Value Date/Time Creatinine 0.9 07/05/2002 0936 Creatinine Serum 0.60 04/07/2017 1305 Lab Results Component Value Date/Time ALT (SGPT) 34 07/05/2002 0936 Alanine Aminotransferase 36 04/07/2017 1305 Lab Results Component Value Date/Time Sodium 140 04/07/2017 1305 Sodium 140 07/05/2002 0936 Chloride 98 04/07/2017 1305 Bicarbonate 25 09/21/2015 0736 CO2 28 04/07/2017 1305 Lab Results Component Value Date/Time Microalbumin, Ur Random 2.4 12/10/2001 0835 Microalbumin Urine <10.0 09/24/2016 0836 Allergies Allergen Reactions ??? Fluticasone PN: laryngitis ??? Lanolin Hives ??? Oxycodone-Acetaminophen PN: LW Reaction: Itching, Pruritis Outpatient Medications Prior to Visit Medication Sig Dispense Refill ??? albuterol 2.5 mg/3 mL, 0.083%, (PROVENTIL) nebulizer solution Inhale 1 Vial every 6 hours as needed for Wheezing. 75 mL 0 ??? ALBUterol sulfate HFA 108 (90 BASE) MCG/ACT inhaler Inhale 1-2 Puffs every 4 hours as needed forWheezing. 2 Inhaler 3 ??? aspirin 81 MG tablet Take 2 tablets by mouth daily (every 24 hours). LW Addl Instr:hold until lovenox dc'd 3 ??? beclomethasone (QVAR) 40 MCG/ACT inhaler Inhale 2 Puffs two times a day. Rinse mouth/gargle after use 8.7 g 11 ??? CALCIUM OR Take by mouth. Reported on 09/30/2016 ??? cyanocobalamin 1000 MCG tablet Take 1,000 mcg by mouth daily (every 24 hours). 6 times/week ??? Multiple Vitamins-Minerals (MULTIVITAMIN ADULT OR) Take 2 tablets by mouth daily (every 24 hours). ??? LORazepam (ATIVAN) 0.5 MG tablet Take 1 Tab by mouth every 8 hours as needed for Anxiety. 15 Tab0 ??? ondansetron (ZOFRAN) 4 MG tablet Take 1 Tab by mouth every 8 hours as needed for Nausea. 30 Tab 0 ??? sertraline (ZOLOFT) 50 MG tablet TAKE 1 TABLET BY MOUTH DAILY 90 Tab 3 No facility-administered medications prior to visit. Patient Active Problem List Diagnosis ??? Other vitamin B12 deficiency anemia ??? Chronic deep vein thrombosis (DVT) of distal vein of right lower extremity (HRC) ??? Heterozygous factor V Leiden mutation (HRC) ??? Hiatal hernia ??? Degeneration of lumbar or lumbosacral intervertebral disc (HRC) ??? Controlled type 2 diabetes mellitus without complication, without long-term current use of insulin (HRC) ??? Chronic insomnia ??? Actinic keratoses ??? Nondependent alcohol abuse ??? Superficial thrombophlebitis ??? S/P gastric bypass ??? Hx of cancer of endometrium ??? Mild intermittent asthma without complication (HRC) ??? Macrocytosis without anemia ??? Osteopenia ??? Circadian rhythm sleep disorder, delayed sleep phase type ??? Depression, major, single episode, mild (HRC) ??? Vitamin D deficiency (HRC) Past Medical History: Diagnosis Date ??? Actinic keratoses 04/23/2011 ??? Asthma ([facility]) allergic triggers ??? Chronic abdominal pain 04/23/2011 ??? Chronic insomnia 04/23/2011 ??? Chronic obstructive asthma, unspecified (HRC) 10/08/2010 Import from [employer] ??? Deep Venous Thrombosis 10/02/2005 ??? Depression NOS 10/02/2005 ??? Depressive disorder, not elsewhere classified (HRC) ??? Diabetes type 2, controlled (HRC) 04/23/2011 ??? Endometrial cancer (HRC) 04/23/2011 ??? Factor V Leiden 08/08/2010 ??? Hernia Hiatal 08/08/2010 ??? Hx of cancer of endometrium 07/26/2011 ??? Lumbar Disc Degeneration 08/08/2010 ??? Macrocytosis without anemia 04/22/2012 ??? Nondependent alcohol abuse 04/23/2011 ??? Osteopenia 03/07/2014 ??? Other vitamin B12 deficiency anemia secondary to gastric bypass ??? Phlebitis and thrombophlebitis of other deep vessels of lower extremities right leg, was on BCP at the time, Factor V Leiden positive, was on coumadin for 6mo ??? S/P gastric bypass 04/23/2011 ??? Superficial thrombophlebitis 04/23/2011 ??? Unspecified asthma(493.90) ([facility]) 08/19/2011 ??? Varicose veins 04/23/2011 Past Surgical History: Procedure Laterality Date ??? CHOLECYSTECTOMY ??? CHOLECYSTECTOMY; W/CHOLANGIOGRAPHY 09/23 done during gastric bypass surgery ??? EYE SURGERY PRK ??? GASTR RESTIRCT W/BYPS; W/SB RECON 09/23 ??? GASTRIC BYPASS 2002 ??? HYSTERECTOMY ??? LIPECTOMY 2004 ??? OVARY REMOVAL ??? OLVIN AND BSO endometrial cancer ??? WISDOM TEETH EXTRACTION Habits: reports that she has never smoked. She has never used smokeless tobacco. Social History: . OBJECTIVE: Vital Signs: BP 136/82 Pulse 64 Wt 116.6 kg (257 lb) LMP 09/16/2004 BMI 43.1 kg/m2 General: female Eyes: No icterus or injection. Throat: [...] current use of insulin (HRC) Yes ??? Chronic insomnia ??? S/P gastric bypass ??? Mild intermittent asthma without complication (HRC) ??? Macrocytosis without anemia ??? Depression, major, single episode, mild (HRC) ??? Vitamin D deficiency (HRC) ??? Nondependent alcohol abuse ??? Hiatal hernia ??? Other vitamin B12 deficiency anemia PLAN: 1. Stable. May find a provider in [place] next visit. If comes here she will let me know and I will order labs at that time. Flu shot. Refills. Avoid alcohol. 2. Orders Placed This Encounter ??? Influenza (Fluarix or Fluzone 0.5, 3+ yrs) ??? LORazepam (ATIVAN) 0.5 MG tablet ??? sertraline (ZOLOFT) 50 MG tablet ??? ondansetron (ZOFRAN) 4 MG tablet There are no Patient Instructions on file for this visit. The patient was discharged ambulatory and in stable condition. *SH~DNS~SOAP documented in this encounter Plan of Treatment Not on filedocumented as of this encounter Visit Diagnoses Diagnosis Controlled type 2 diabetes mellitus with out complication, without long-term current use of insulin (HRC) - Primary Chronic insomnia Insomnia, unspecified S/P gastric bypass Bariatric surgery status Mild intermittent asthma without complic ation (HRC) Unspecified asthma Macrocytosis without anemia Other specified diseases of blood and bl ood-forming organs Depression, major, single episode, mild (HRC) Major depressive disorder, single episod e, mild Vitamin D deficiency (HRC) Unspecified vitamin D deficiency Nondependent alcohol abuse Alcohol abuse, unspecified Hiatal hernia Diaphragmatic hernia without mention of obstruction or gangrene Other vitamin B12 deficiency anemia documented in this encounter Care Teams Torch Solderer Relationship Specialty Start Date End Date Olamide Rodney MD PCP - General 09/25/10 01/11/21 [address] [place] [address] documented as of this encounter
--- OUTSIDE RECORDS SUMMARY | 2022-01-29 17:49 | XMS_ITS | Encounter Summary ---
:1960 Author Organization [facility] Address [address] [place] [address] Care Team Providers Name Role Phone Olamide Rodney MD Primary Care Provider Encounter Details Date Type Department Care Team Description 09/21/2015 Lab Visit [facility] Diabetes type 2, controlled (HRC); [address] S/P gastric bypass [place], [place] [address] Social History Tobacco Use Types Packs/Day Years Used Date Smoking Tobacco: Never Alcohol Use Standard Drinks/Week Comments Yes 0 (1 standard drink = 0.6 oz pure alcoho l) mod Sex Assigned at Date Recorded Not on file documented as of this encounter Plan of Treatment Not on filedocumented as of this encounter Procedures Procedure Name Priority Date/Time Associated Comments Diagnosis ALBUMIN/CREAT RATIO Routine 09/21/2015 9:16 AM Diabetes type 2 , Results for this CDT controlled (HRC) procedure a re in the results section. TSH AND FREE T4 (FRT4 Routine 09/21/2015 7:36 AM S/P gastric b ypass Results for this IF TSH ABNORM) CDT procedure are in the results section. LIPID PANEL AND Routine 09/21/2015 7:36 AM Diabetes type 2, Re sults for this DIRECT LDL(IF NEEDED) CDT controlled (HRC) pr ocedure are in the results section. VITAMIN D 25-HYDROXY, Routine 09/21/2015 7:36 AM S/P gastric b ypass Results for this TOTAL CDT procedure are i n the results section. CREATININE / GFR Routine 09/21/2015 7:36 AM S/P gastric bypass Results for this CDT procedure are i n the results section. COMPLETE BLOOD Routine 09/21/2015 7:36 AM S/P gastric bypass R esults for this COUNT-W/DIFF CDT procedure are i n the results section. DIFFERENTIAL Routine 09/21/2015 7:36 AM Results f or this CDT procedure are i n the results section. ELECTROLYTE PANEL Routine 09/21/2015 7:36 AM S/P gastric bypas s Results for this CDT procedure are i n the results section. FERRITIN Routine 09/21/2015 7:36 AM S/P gastric bypass Res ults for this CDT procedure are i n the results section. HGB A1C Routine 09/21/2015 7:36 AM Diabetes type 2, Resul ts for this CDT controlled (HRC) procedure a re in the results section. VITAMIN B12 ONLY Routine 09/21/2015 7:36 AM S/P gastric bypass Results for this CDT procedure are i n the results section. ALT (SGPT) Routine 09/21/2015 7:36 AM S/P gastric bypass Res ults for this CDT procedure are i n the results section. CALCIUM Routine 09/21/2015 7:36 AM S/P gastric bypass Res ults for this CDT procedure are i n the results section. BUN Routine 09/21/2015 7:36 AM S/P gastric bypass Res ults for this CDT procedure are i n the results section. documented in this encounter Results Microalb/Creat Ratio (09/21/2015 9:16 AM CDT) Analysis Performed At Patho logist Time Signature Microalbumin 14.8 mg/L HP CONVERSION Urine U Creat Random 180 mg/dL HP CONVERSION Microalbumin/Crea 8.2 0.0 - 30.0 HP CONVERSI ON tinine Ratio Specimen Anatomical Collection Method Collection Time Receive d Time (Source) Location / / Volume Laterality 09/21/2015 9:16 AM 6 9:16 CDT AM CDT Narrative HP CONVERSION - 09/21/2015 10:14 AM CDT Performed at [facility] [address] [place] [id number] CLIA number [id number] Olamide Rodney MD LAB_1 Performing Organization Address City/State/ZIP Code Phon e Number HP CONVERSION Differential (09/21/2015 7:36 AM CDT) Analysis Performed At [facility] logist Time Signature Absolute 3.2 1.8 - 8.0 HP CONVERSION Neutrophils k/cmm Absolute 2.1 1.1 - 4.0 HP CONVERSION Lymphocytes k/cmm Absolute 0.5 0.2 - 0.8 HP CONVERSION Monocytes k/cmm Absolute 0.2 0.0 - 0.5 HP CONVERSION Eosinophils k/cmm Absolute 0.0 0.0 - 0.2 HP CONVERSION Basophils k/cmm Immature 0.2 0.0 - 0.5 HP CONVERSION Granulocytes % Specimen Anatomical Collection Method Collection Time Receive d Time (Source) Location / / Volume Laterality 09/21/2015 7:36 AM 6 7:36 CDT AM CDT Narrative HP CONVERSION - 09/21/2015 7:40 AM CDT Performed at [facility] ([facility] [address] [place] [address] CLIA number [id number] Olamide Rodney MD LAB_1 Performing Organization Address City/[facility]/ZIP Code Phon e Number HP CONVERSION B12 Only (09/21/2015 7:36 AM CDT) athologist Signature Vitamin B12 518 213 - 816 HP CONVERSION pg/dL Specimen Anatomical Collection Method Collection Time Receive d Time (Source) Location / / Volume Laterality 09/21/2015 7:36 AM 6 1:08 CDT PM CDT Narrative HP CONVERSION - 09/21/2015 2:28 PM CDT Performed at [address] [address] CLIA number [id number] Olamide Rodney MD LAB_1 Performing Organization Address City/State/ZIP Code Phon e Number HP CONVERSION Calcium (09/21/2015 7:36 AM CDT) athologist Signature Calcium 9.3 8.4 - 10.2 HP CONVERSION mg/dL Specimen Anatomical Collection Method Collection Time Receive d Time (Source) Location / / Volume Laterality 09/21/2015 7:36 AM 6 7:36 CDT AM CDT Narrative HP CONVERSION - 09/21/2015 9:02 AM CDT Performed at [facility] ([facility] [address] [place] [address] CLIA number [id number] Olamide Rodney MD LAB_1 Performing Organization Address [facility] Phon e Number HP CONVERSION (ABNORMAL) Vitamin D 25-Hydroxy, Total (09/21/2015 7:36 AM CDT) athologist [facility] Vitamin D 25 16 (L) 20 - 80 HP CONVERSION Oh ng/mL Comment: Deficiency = <20 Adequate ??= 20-29 Preferred = 30-50 Uncertain safety = 51-80 High = >80 Specimen Anatomical Collection Method Collection Time Receive d Time (Source) Location / / Volume Laterality 09/21/2015 7:36 AM 6 1:08 CDT PM CDT Narrative HP CONVERSION - 09/21/2015 3:05 PM CDT Performed at [address] [address] CLIA number [id number] Olamide Rodney MD LAB_1 Performing Organization Address [facility] Phon e Number HP CONVERSION Electrolyte Panel (09/21/2015 7:36 AM CDT) athologist [facility] Sodium 141 136 - 145 HP CONVERSION mmol/L Potassium 3.8 3.5 - 5.2 HP CONVERSION mmol/L Chloride 107 98 - 107 HP CONVERSION mmol/L Bicarbonate 25 22 - 29 HP CONVERSION mmol/L Specimen Anatomical Collection Method Collection Time Receive d Time (Source) Location / / Volume Laterality 09/21/2015 7:36 AM 6 7:36 CDT AM CDT Narrative HP CONVERSION - 09/21/2015 9:02 AM CDT Performed at [facility] [address] [place] [address] CLIA number [id number] Olamide Rodney MD LAB_1 Performing Organization Address [facility] Phon e Number HP CONVERSION (ABNORMAL) BUN (09/21/2015 7:36 AM CDT) athologist Signature Blood Urea <10 (A) 9 - 26 HP CONVERSION Nitrogen mg/dL Specimen Anatomical Collection Method Collection Time Receive d Time (Source) Location / / Volume Laterality 09/21/2015 7:36 AM 6 7:36 CDT AM CDT Narrative HP CONVERSION - 09/21/2015 9:02 AM CDT Performed at [facility] [address] [place] [address] CLIA number [id number] Olamide Rodney MD LAB_1 Performing Organization Address [facility] Phon e Number HP CONVERSION Creatinine / GFR (09/21/2015 7:36 AM CDT) athologist Signature Creatinine 0.70 0.55 - HP CONVERSION Serum 1.02 mg/dL Est GFR >60 >60 HP CONVERSION Am mL/min/1.7 3m2 Est GFR Non-Afr >60 >60 HP CONVERSION Am mL/min/1.7 3m2 Comment: Normal>60, moderate decrease 30 - 59, se viktoriya decrease 15 - 29, renal failure <15 mL/min/1.73 m2 NOTE: ??Choose the eGFR result above mary ropriate for the race of the patient. Specimen Anatomical Collection Method Collection Time Receive d Time (Source) Location / / Volume Laterality 09/21/2015 7:36 AM 6 7:36 CDT AM CDT Narrative HP CONVERSION - 09/21/2015 9:02 AM CDT Performed at [facility] [address] [place] [address] CLIA number [id number] Olamide Rodney MD LAB_1 Performing Organization Address [facility] Phon e Number HP CONVERSION Ferritin (09/21/2015 7:36 AM CDT) athologist Signature Ferritin Serum 32 5 - 204 HP CONVERSION ng/mL Specimen Anatomical Collection Method Collection Time Receive d Time (Source) Location / / Volume Laterality 09/21/2015 7:36 AM 6 1:08 CDT PM CDT Narrative HP CONVERSION - 09/21/2015 2:28 PM CDT Performed at [address] [address] CLIA number [id number] Olamide Rodney MD LAB_1 Performing Organization Address City/[facility]/ZIP Code Phon e Number HP CONVERSION Complete Blood Count W/Diff (09/21/2015 7:36 AM CDT) athologist [facility] White Blood Cell 6.0 3.8 - 11.0 HP CONVERSIO N Count k/cmm Red Blood Cell 4.08 3.70 - HP CONVERSION Count 5.20 m/cmm Hemoglobin 12.8 11.8 - HP CONVERSION 15.5 g/dL Hematocrit 38.9 35.0 - HP CONVERSION 46.0 % Mean Corpuscular 95.3 80.0 - HP CONVERSION Volume 100.0 fL RDW 13.9 11.0 - HP CONVERSION 15.0 % Platelet Count 196 140 - 450 HP CONVERSION k/cmm Specimen Anatomical Collection Method Collection Time Receive d Time (Source) Location / / Volume Laterality 09/21/2015 7:36 AM 6 7:36 CDT AM CDT Narrative HP CONVERSION - 09/21/2015 7:40 AM CDT Performed at [facility] [address] [place] [address] CLIA number [id number] Olamide Rodney MD LAB_1 Performing Organization Address [facility] Phon e Number HP CONVERSION (ABNORMAL) Hgb A1c (09/21/2015 7:36 AM CDT) athologist [facility] HGB A1C 5.8 (H) 4.0 - 5.6 % HP CONVERSION Specimen Anatomical Collection Method Collection Time Receive d Time (Source) Location / / Volume Laterality 09/21/2015 7:36 AM 6 1:06 CDT PM CDT Narrative HP CONVERSION - 09/21/2015 3:13 PM CDT Performed at [place] [place] [address] CLIA number [id number] Olamide Rodney MD LAB_1 Performing Organization Address City/[facility]/ZIP Code Phon e Number HP CONVERSION TSH AND FREE T4 (FRT4 IF TSH ABNORM) (09/21/2015 7:36 AM CDT) P athologist Signature Thyroid 2.76 0.20 - HP CONVERSION Stimulating 4.50 Hormone uIU/mL Specimen Anatomical Collection Method Collection Time Receive d Time (Source) Location / / Volume Laterality 09/21/2015 7:36 AM 6 1:08 CDT PM CDT Narrative HP CONVERSION - 09/21/2015 2:28 PM CDT Performed at [address] [address] CLIA number [id number] Olamide Rodney MD LAB_1 Performing Organization Address City/[facility] Phon e Number HP CONVERSION ALT (SGPT) (09/21/2015 7:36 AM CDT) [facility] Method Time Signature Alanine 32 9 - 55 HP CONVERSION Aminotransferase U/L Specimen Anatomical Collection Method Collection Time Receive d Time (Source) Location / / Volume Laterality 09/21/2015 7:36 AM 6 7:36 CDT AM CDT Narrative HP CONVERSION - 09/21/2015 9:02 AM CDT Performed at [facility] [address] [place] [address] CLIA number [id number] Olamide Rodney MD LAB_1 Performing Organization Address [facility] Phon e Number HP CONVERSION Lipid Panel and Direct LDL(If Needed) (09/21/2015 7:36 AM CDT) [facility] Method Time Signature Cholesterol 169 0 - 199 HP CONVERSION mg/dL Triglycerides 130 4 - 149 HP CONVERSION mg/dL HDL Cholesterol 52 >39 mg/dL HP CONVERSION Cholesterol/HDL 3.3 HP CONVERSION Ratio Screen LDL Calculated 91 19 - 130 HP CONVERSION mg/dL Length Of Fast =12.0+ HP CONVERSION Specimen Anatomical Collection Method Collection Time Receive d Time (Source) Location / / Volume Laterality 09/21/2015 7:36 AM 6 7:36 CDT AM CDT Narrative HP CONVERSION - 09/21/2015 9:02 AM CDT Performed at [facility] [address] [place] [address] CLIA number [id number] Olamide Rodney MD LAB_1 Performing Organization Address [facility] Phon e Number HP CONVERSION documented in this encounter Visit Diagnoses Diagnosis Diabetes type 2, controlled (HRC) Type II or unspecified type diabetes rod litus without mention of complication, not stated as uncontrolled S/P gastric bypass Bariatric surgery status documented in this encounter Care Teams Inseamer Relationship Specialty Start Date End Date Olamide Rodney MD PCP - General 09/25/10 01/11/21 [address] [place] [address] documented as of this encounter
--- OUTSIDE RECORDS SUMMARY | 2022-01-29 17:49 | XMS_ITS | Encounter Summary ---
:1960 Author Organization [employer] Address [address] [place] [address] Care Team Providers Name Role Phone Olamide Rodney MD Primary Care Provider Encounter Details Date Type Department Care Team Description 09/24/2016 Lab Visit [facility] Status post bariatric surger y; [id number] Flexenclosure Intestinal malabsorption, un specified type [K90.9]; [place] [address] Embolism and thrombosis (HRC ); [phone] S/P gastric byp ass Social History Tobacco Use Types Packs/Day Years [...] on file documented as of this encounter Progress Notes Leni Simmons LPN - 09/26/2016 2:50 PM CDT Quick Note: Review lab. Mendy Murry MD - 09/26/2016 11:11 AM CDT Quick Note: otw Leni Simmons LPN - 09/26/2016 8:58 AM CDT Quick Note: Please review documented in this encounter Plan of Treatment Not on filedocumented as of this encounter Procedures Procedure Name Priority Date/Time Associated Diagnosis Comme nts ALBUMIN/CREAT RATIO Routine 09/24/2016 8:36 AM S/P gastric byp ass Results for this CDT procedure are i n the results section. ZINC, SERUM Routine 09/24/2016 7:50 AM Status post Results f or this CDT bariatric surgery procedure are in the results section. VITAMIN B6 (8HR Routine 09/24/2016 7:50 AM Status post Result s for this FAST RECOMMENDED) CDT bariatric surgery proce dure are in the results section. VITAMIN B1, BLOOD Routine 09/24/2016 7:50 AM Status post Resu lts for this CDT bariatric surgery procedure are in the results section. VITAMIN A Routine 09/24/2016 7:50 AM Status post Results f or this CDT bariatric surgery procedure are in the results section. COPPER, SERUM Routine 09/24/2016 7:50 AM Status post Results for this CDT bariatric surgery procedure are in the results section. LIPID PANEL AND Routine 09/24/2016 7:50 AM Intestinal Result s for this DIRECT LDL(IF CDT malabsorption, procedure ar e in NEEDED) unspecified type the results [K90.9] section. VITAMIN D Routine 09/24/2016 7:50 AM Intestinal Results f or this 25-HYDROXY, TOTAL CDT malabsorption, procedur e are in unspecified type the results [K90.9] section. INTACT PTH Routine 09/24/2016 7:50 AM Status post Results f or this CDT bariatric surgery procedure are in the results section. BASIC METABOLIC Routine 09/24/2016 7:50 AM Status post Result s for this PANEL CDT bariatric surgery procedure are in the results section. COMPLETE BLOOD Routine 09/24/2016 7:50 AM Embolism and Results for this COUNT-NO DIFF CDT thrombosis (HRC) procedure are in S/P gastric bypass the resul ts section. FERRITIN Routine 09/24/2016 7:50 AM Intestinal Results f or this CDT malabsorption, procedure are in unspecified type the results [K90.9] section. HGB A1C Routine 09/24/2016 7:50 AM Intestinal Results f or this CDT malabsorption, procedure are in unspecified type the results [K90.9] section. FOLATE ONLY (4HR Routine 09/24/2016 7:50 AM Status post Resul ts for this FAST RECOMMENDED) CDT bariatric surgery proce dure are in the results section. VITAMIN B12 ONLY Routine 09/24/2016 7:50 AM Status post Resul ts for this CDT bariatric surgery procedure are in the results section. ALT (SGPT) Routine 09/24/2016 7:50 AM S/P gastric bypass Res ults for this CDT procedure are i n the results section. IRON PROFILE Routine 09/24/2016 7:50 AM Intestinal Results f or this (IRON,TIBC,%SAT.(CA CDT malabsorption, proced ure are in LC)) unspecified type the results [K90.9] section. documented in this encounter Results Microalb/Creat Ratio (09/24/2016 8:36 [...] - 09/24/2016 9:26 AM CDT Performed at [facility], [address] [place] [address] CLIA number [id number] Olamide Rodney MD LAB_1 Performing Organization Address City/State/ZIP Code Phon e Number PN SOFT [address] [place], [place] [address] (ABNORMAL) ALT (SGPT) (09/24/2016 7:50 AM CDT) [facility] gist Method Time Signature Alanine 82 (H) 9 - 55 PN SOFT Aminotransferase U/L Specimen Anatomical Collection Method Collection Time Receive d Time (Source) Location / / Volume Laterality 09/24/2016 7:50 AM 7 7:49 CDT AM CDT Narrative PN SOFT - 09/24/2016 8:09 AM CDT Performed at [facility], [address] [place] [address] CLIA number [id number] Olamide Rodney MD LAB_1 Performing Organization Address City/[facility] Code Phon e Number PN SOFT [address] [place] [address] Zinc, Serum (09/24/2016 7:50 AM CDT) athologist [...] Test developed and characteristics deter mined by [employer]. See Compliance Statement B : [employer]CS Performed by [employer], [address] [place] [id number] www.[employer], Raffi Jha MD - Lab . Director Specimen Anatomical Collection Method Collection Time Receive d Time (Source) Location / / Volume Laterality 09/24/2016 7:50 AM 7 1:21 CDT PM CDT Narrative PN SOFT - 09/26/2016 7:31 AM CDT Performed at [employer] [facility] [address] [place] [address] CLIA number [id number] Olamide Rodney MD LAB_1 Performing Organization Address City/[facility] Phon e Number PN SOFT [address] [place] [address] VITAMIN D 25-HYDROXY, TOTAL (09/24/2016 7:50 AM [...] - 09/24/2016 5:37 PM CDT Performed at [facility] [address] [place] [address] CLIA number [id number] Olamide Rodney MD LAB_1 Performing Organization Address City/[facility] Code Phon e Number PN SOFT [address] [place] [address] [phone] Vitamin B6 (09/24/2016 7:50 AM CDT) athologist Signature Vitamin B6 27.5 20.0 - 125.0 PN SOFT nmol/L Comment: INTERPRETIVE INFORMATION: Vitamin B6 (Py ridoxal 5-Phosphate) Pyridoxal 5'-phosphate measured in a spe cimen collected following an 8-hour or overnight fast ac curately indicates vitamin B6 nutritional status. Non-fasti ng specimen concentration reflects recent vitamin in take. Test developed and characteristics deter mined by [employer]. See Compliance Statement B : [employer]/CS Performed by [employer], [address] [place] [address] www.[employer], Raffi Jha MD - Lab . Director Specimen Anatomical Collection Method Collection Time Receive d Time (Source) Location / / Volume Laterality 09/24/2016 7:50 AM 7 1:03 CDT PM CDT Narrative PN SOFT - 09/26/2016 9:36 AM CDT Performed at [employer] [address] [place] [address] CLIA number [id number] Olamide Rodney MD LAB_1 Performing Organization Address City/[facility] Phon e Number PN SOFT [address] [place] [address] (ABNORMAL) Vitamin B1 (09/24/2016 7:50 AM CDT) [...] Test developed and characteristics deter mined by [employer]. See Compliance Statement B : [employer]/CS Performed by [employer], [address] [place] [address] www.[employer], Raffi Jha MD - Lab . Director Specimen Anatomical Collection Method Collection Time Receive d Time (Source) Location / / Volume Laterality 09/24/2016 7:50 AM 7 1:04 CDT PM CDT Narrative PN SOFT - 09/26/2016 10:26 PM CDT Performed at [employer] [address] [place] [address] CLIA number [id number] Olamide Rodney MD LAB_1 Performing Organization Address [facility] Phon e Number PN SOFT [address] [place] [address] Vitamin A (Retinol) (09/24/2016 7:50 AM CDT) athologist Signature Retinol 0.39 0.30 - PN SOFT (Vitamin A) 1.20 mg/L Retinyl <0.02 0.00 - PN SOFT Palminate 0.10 mg/L Vitamin A Normal PN SOFT Interp Comment: Test developed and characteristics deter mined by [employer]. See Compliance Statement B : [employer]/CS Performed by [employer], [address] [place] [address] www.[employer], Raffi Jha MD - Lab . Director Specimen Anatomical Collection Method Collection Time Receive d Time (Source) Location / / Volume Laterality 09/24/2016 7:50 AM 7 1:04 CDT PM CDT Narrative PN SOFT - 09/26/2016 11:03 PM CDT Performed at [employer] [facility] [address] [place] [address] CLIA number [id number] Olamide Rodney MD LAB_1 Performing Organization Address [facility] Phon e Number PN SOFT [address] [place] [address] INTACT PTH (09/24/2016 7:50 AM CDT) athologist Signature PTH 88 10 - 100 PN SOFT pg/mL Specimen Anatomical Collection Method Collection Time Receive d Time (Source) Location / / Volume Laterality 09/24/2016 7:50 AM 7 1:04 CDT PM CDT Narrative PN SOFT - 09/24/2016 3:14 PM CDT Performed at [address] [address] CLIA number [id number] Olamide Rodney MD LAB_1 Performing Organization Address [facility] Phon e Number PN SOFT [address] [place] [address] IRON PROFILE (IRON,TIBC,%SAT.(CALC)) (09/24/2016 7:50 AM CDT) [...] - 09/24/2016 3:23 PM CDT Performed at [address] [address] CLIA number [id number] Olamide Rodney MD LAB_1 Performing Organization Address [facility] Phon e Number PN SOFT [address] [place] [address] (ABNORMAL) HGB A1C (09/24/2016 7:50 AM CDT) athologist Signature HGB A1C 6.4 (H) 4.0 - 5.6 % PN SOFT Specimen Anatomical Collection Method Collection Time Receive d Time (Source) Location / / Volume Laterality 09/24/2016 7:50 AM 7 1:14 CDT PM CDT Narrative PN SOFT - 09/24/2016 2:31 PM CDT Performed at [address] [address] CLIA number [id number] Olamide Rodney MD LAB_1 Performing Organization Address [facility] Phon e Number PN SOFT [address] [place] [address] FOLATE ONLY (4HR FAST RECOMMENDED) (09/24/2016 7:50 AM CDT) athologist Signature Serum Folate 19.4 7.0 - PN SOFT 9,999.9 ng/mL Specimen Anatomical Collection Method Collection Time Receive d Time (Source) Location / / Volume Laterality 09/24/2016 7:50 AM 7 1:17 CDT PM CDT Narrative PN SOFT - 09/24/2016 5:37 PM CDT Performed at [address] [address] CLIA number [id number] Olamide Rodney MD LAB_1 Performing Organization Address [facility] Phon e Number PN SOFT [address] [place] [address] B12 ONLY (09/24/2016 7:50 AM CDT) athologist Signature Vitamin B12 595 213 - 816 PN SOFT pg/dL Specimen Anatomical Collection Method Collection Time Receive d Time (Source) Location / / Volume Laterality 09/24/2016 7:50 AM 7 1:20 CDT PM CDT Narrative PN SOFT - 09/24/2016 6:08 PM CDT Performed at [address] [address] CLIA number [id number] Olamide Rodney MD LAB_1 Performing Organization Address [facility] Phon e Number PN SOFT [address] [place] [address] FERRITIN (09/24/2016 7:50 AM CDT) athologist Signature Ferritin Serum 42 9 - 204 PN SOFT ng/mL Specimen Anatomical Collection Method Collection Time Receive d Time (Source) Location / / Volume Laterality 09/24/2016 7:50 AM 7 1:20 CDT PM CDT Narrative PN SOFT - 09/24/2016 3:28 PM CDT Performed at [facility] [address] [place] [address] CLIA number [id number] Olamide Rodney MD LAB_1 Performing Organization Address City/[facility] Phon e Number PN SOFT [address] [place] [address] Copper, Serum (09/24/2016 7:50 AM CDT) athologist [...] malabsorptio n. See Compliance Statement B at [email or web address] Performed by [employer], [address] [place] [address] www.[employer], Raffi Jha MD - Lab . Director Specimen Anatomical Collection Method Collection Time Receive d Time (Source) Location / / Volume Laterality 09/24/2016 7:50 AM 7 1:21 CDT PM CDT Narrative PN SOFT - 09/26/2016 7:31 AM CDT Performed at [facility] [address] [place] [address] CLIA number [id number] Olamide Rodney MD LAB_1 Performing Organization Address City/[facility] Phon e Number PN SOFT [address] [place] [address] Complete Blood Count-No Diff (09/24/2016 7:50 AM [...] - 09/24/2016 8:00 AM CDT Performed at [facility], [address] [place] [address] CLIA number [id number] Olamide Rodney MD LAB_1 Performing Organization Address City/[facility] Code Phon e Number PN SOFT [address] [place] [address] LIPID PANEL AND DIRECT LDL(IF NEEDED) (09/24/2016 [...] - 09/24/2016 8:09 AM CDT Performed at [facility], [facility] [address] [place] [address] CLIA number [id number] Olamide Rodney MD LAB_1 Performing Organization Address [facility] Phon e Number PN SOFT [address] [place] [address] [phone] (ABNORMAL) Basic Metabolic Panel (09/24/2016 7:50 AM [...] - 09/24/2016 8:09 AM CDT Performed at [facility], [address] [place] [address] CLIA number [id number] Olamide Rodney MD LAB_1 Performing Organization Address City/State/ZIP Code Phon e Number PN SOFT [address] [place] [address] documented in this encounter Visit Diagnoses Diagnosis Status post bariatric surgery Bariatric surgery status Intestinal malabsorption, unspecified ty pe [K90.9] Embolism and thrombosis (HRC) Embolism and thrombosis of unspecified s ite S/P gastric bypass Bariatric surgery status documented in this encounter Care Teams Mail Carrier Technician Relationship Specialty Start Date End Date Olamide Rodney MD PCP - General 09/25/10 01/11/21 [address] [place] [address] documented as of this encounter
--- OUTSIDE RECORDS SUMMARY | 2022-01-29 17:49 | XMS_ITS | Encounter Summary ---
:1960 Author Organization [employer] Address [address] [place] [address] Care Team Providers Name Role Phone Olmaide Rodney MD Primary Care Provider Reason for Visit Procedure/Equipment (Routine) - Incomplete Specialty Diagnoses / Procedures Referred By Contact Refer red To Contact Diagnoses Routine physical examination Olamide Rodney MD Procedures MM Mammogram Screening Bilat W CAD [address] [place], [place] [address] Referral ID Status Reason Start Date Expiration Date Visits V isits Requested Authorized [id number] Incomplete 10/28/2016 01/27/2018 1 1 Encounter Details Date Type Department Care Team Description 01/09/2017 Imaging [place] [facility] Olamide Rodney, Routine physical [address] [facility] [place] [address] [address] [facility] [phone] [place], [place] [id number] (Wo rk) Social History Tobacco Use Types [...] Associated Diagnosis Comme nts MM MAMMOGRAM Routine 01/09/2017 2:12 PM Routine physical Resul ts for this SCREENING BILAT W CDT examination procedure are in CAD the results section. documented in this encounter Results MM Mammogram Screening Bilat W CAD (01/09/2017 2:12 PM CDT) Anatomical Region Laterality Modality Breast Bilateral Mammography Specimen (Source) Anatomical Location Collection Method / Collectio n Time Received Time / Laterality Volume Impressions 01/09/2017 3:21 PM CDT : ACR BI-RADS Category 1: Negative RECOMMENDATION: Follow Up Imaging in 12 months - Bilateral The results and recommendations of this examination will be communicated to the patient. Narrative 01/09/2017 3:21 PM CDT MM MAMMOGRAM SCREENING BILAT W CAD performed on 01/09/17 Compared to: 10/28/2015 MM Mammogram Scr eening Bilat W CAD, 10/24/2014 MM Mammogram Screening Bilat W CAD, and 04/2014 MM Mammogram Screening Bilat W CAD FINDINGS: Bilateral screening mammogram was performed with the assistance of Computer-Aided Detection. The breasts are almost entirely fatty. There is no radiographic evidence of mal ignancy. ?? Olamide Rodney MD RAD SHERYL documented in this encounter Visit Diagnoses Diagnosis Routine physical examination Routine general medical examination at a health care facility documented in this encounter Care Teams Law Librarian Relationship Specialty Start Date End Date Olamide Rodney MD PCP - General 09/25/10 01/11/21 [address] [place] [address] documented as of this encounter
--- OUTSIDE RECORDS SUMMARY | 2022-01-29 17:49 | XMS_ITS | Encounter Summary ---
:1960 Author Organization [email or web address] Address [address], [place] [address] Care Team Providers Name Role Phone Olamide Rodney MD Primary Care Provider Reason for Referral Procedure/Equipment (Routine) - Incomplete Specialty Diagnoses / Procedures Referred By Contact Refer red To Contact Diagnoses Routine physical examination Olamide Rodney MD Procedures MM Mammogram Screening Bilat W CAD [address] [place], [place] [address] Referral ID Status Reason Start Date Expiration Date Visits V isits Requested Authorized [id number] Incomplete 10/28/2016 01/27/2018 1 1 Procedure/Equipment (Routine) - Incomplete Specialty Diagnoses / Procedures Referred By Contact Refer red To Contact Diagnoses Cough Olamide Rodney MD Procedures XR Chest 2 Views [address] [place], [place] [address] Referral ID Status Reason Start Date Expiration Date Visits V isits Requested Authorized [id number] Incomplete 09/30/2016 12/30/2017 1 1 Reason for Visit Reason Comments ROUTINE HEALTH MAINTENANCE Encounter Details Date Type Department Care Team Description 09/30/2016 Office Visit [facility] Olamide Rodney physical examination (Primary Dx); Hayley Antoine MD Cough; [address] Other vitamin B12 deficiency anemia; [place] [address] Blvd Hiatal hernia; [phone] [place], [place] Controlled type 2 diabetes mellitus without complication, without long-term current use of insulin (HRC); [address] S/P gastric bypass; [phone] Hx of cancer of endometrium; (Work) Mild intermittent asthma without complic ation; Macrocyto sis without anemia; Osteopenia, uns pecified location; Vitamin D defic iency; Elevated ALT me asurement; Need for pneumo coccal vaccination Social History Tobacco Use Types Packs/Day Years [...] Sign Reading Time Taken Comments Blood Pressure 136/84 09/30/2016 8:10 AM CDT Pulse 80 09/30/2016 8:10 AM CDT Temperature - - Respiratory Rate - - Oxygen Saturation - - Inhaled Oxygen Concentration - - Weight 122 kg (269 lb) 09/30/2016 8:10 AM CDT Height 164.5 cm (5' 4.75) 09/30/2016 8:10 AM CDT Body Mass Index 45.11 09/30/2016 8:10 AM CDT documented in this encounter Progress Notes Khloe Pike, RN - 10/04/2016 9:52 AM CDT Quick Note: Dear Ms. Stovall, I am writing to let you know that your PAP and HPV result is negative. This means that your test result was normal. No cancer or precancerous cells were seen. Based on current cervical cancer screening recommendations, you and your provider may consider discontinuing cervical cancer screening at this time. Please continue to schedule your annual preventive exams for your overall health. If you have questions about cervical cancer screening or your test results, call Cervical Cancer Screening and Management Team [phone] Sincerely, Khloe Pike RN on behalf of Dr. Bethany Carbone, Process Owner [address] Cervical Cancer Screening and Management Olamide Rodney MD - 09/29/2016 1:53 PM CDT Preventive Physical Exam: 09/30/2016 SUBJECTIVE: 55 y.o. year old female for a physical exam. History of endometrial cancer, still gets Pap and pelvic exam annually. Done seeing Rn Lpn Lvn. History of OLVIN and BSO. She remotely had a DVT on birthcontrol pills. She is sexually active and denies risk for STD. She does do self-breast exam. No history of breast biopsy. Gets annual mammograms. She was working out at the gym 3 times per week 45-60 minutes doing weights and cardio, on hold due to upcoming move, plans to reinstate. Weight is up, 20 pounds over last year. Bone density approximately 2013, due in 10 years for repeat. Colonoscopy 2015 repeat in 5 years, does have family history of colon cancer in mother. Zostavax 2008. Pneumonia vaccine 1996 & 2005. Adacel 2011. Gets seasonal flu shot. Separate concerns include: 2 diabetes mellitus, gastric bypass. She has type 2 diabetes mellitus. Diet control. She is status post gastric bypass. Her weight has increased a fair amount. Continues to creep higher. Her A1c has been fairly stable, recent A1c is 6.4, Increased. She does not check the blood [...] 1000 international units most days. Recently ALT at 82. It was decreased to normal for 2 years States she is drinking some alcohol but feels she has things under control. She states she is not drinking daily alcohol. Feels she is having stress due to upcoming move to [facility] in the next 2 weeks. Feels things will improve then. Declines needing additional help with this. Complains of coughing since May. Initially had a cold with typical symptoms of sore throat, nasal drainage, mild cough. Cough intermittently since then. Occasionally dry, sometimes with mucus. In the past she has had asthma, mainly when her weight was higher. She uses zbnc-yum-kwldhwa Robitussin during the day. It helps. She has used her albuterol meter dose inhaler, it helps temporarily. She gets occasional acid reflux. She has a hiatal hernia. She has some nasal drip. Some nasal congestion. No fever or chills. Can feel winded. Has gained 20 pounds over the last year. History of gastric bypass. Lab Results Component Value Date/Time HGB A1C 6.4* 09/24/2016 0750 HGB A1C 6.2* 03/29/2016 1600 HGB A1C 5.8* 09/21/2015 0736 Lab Results Component Value Date/Time ALANINE AMINOTRANSFERASE 82* 09/24/2016 0750 ALANINE AMINOTRANSFERASE 32 09/21/2015 0736 ALANINE AMINOTRANSFERASE 34 03/15/2015 0757 Immunization History Administered Date(s) Administered ??? Flu Vac (3+ yrs) 03/27/1999, 05/15/2004 ??? Flu Vac Preserv Free (3+yrs) 04/03/2005, 05/06/2006, 05/22/2007, 04/01/2010, 03/29/2011, 03/04/2012 ??? Influenza (Fluarix or Fluzone 0.5, 3+ yrs) 03/08/2013, 03/09/2014, 03/22/2015, 04/02/2016 ??? Influenza Vaccine - Historical 04/07/1997, 04/06/1998 ??? Lovenox 06/20/2001, 06/21/2001, 06/21/2001, 06/22/2001, 06/22/2001, 06/23/2001, 06/23/2001, 06/24/2001, 06/25/2001, 06/25/2001, 06/26/2001 ??? PPSV23 (Pneumovax) 04/06/1998, 10/02/2005, 09/30/2016 ??? TDAP (ADACEL) 08/19/2011 ??? Td 11/01/1996, 12/11/1999 Patient Active Problem List Diagnosis ??? Other [...] cancer of endometrium 07/26/2011 ??? Unspecified asthma(493.90) ([facility]) 08/19/2011 ??? Macrocytosis without anemia 04/22/2012 ??? Asthma (ACG) allergic triggers ??? Chronic obstructive asthma, unspecified (HRC) 10/08/2010 Import from [employer] ??? Osteopenia 03/07/2014 Past Surgical History Procedure Laterality Date ??? Gastr restirct w/byps; w/sb recon 09/23 ??? Cholecystectomy; w/cholangiography 09/23 done during gastric bypass surgery ??? Gastric bypass 2002 ??? [place] teeth extraction ??? Eye surgery PRK ??? Olvin and bso endometrial cancer ??? Cholecystectomy ??? Lipectomy 2005 ??? Ovary removal ??? Hysterectomy Social History: . 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 Travels. Allergies Allergen Reactions ??? Fluticasone PN: laryngitis [...] 3 ??? CALCIUM OR Take by mouth. Reported on 09/30/2016 ??? cyanocobalamin 1000 MCG tablet Take 1,000 mcg by mouth daily (every 24 hours). 6 times/week ??? LORazepam (ATIVAN) 0.5 MG tablet Take 1 Tab by mouth every 8 hours as needed for Anxiety. (Patient not taking: Reported on 09/30/2016) 15 Tab 0 ??? Multiple Vitamins-Minerals (MULTIVITAMIN ADULT OR) Take 2 tablets by mouth daily (every 24 hours). ??? ondansetron (ZOFRAN) 4 MG tablet Take 1 Tab by mouth every 8 hours as needed for Nausea. (Patient not taking: Reported on 09/30/2016) 30 Tab 0 ??? sertraline (ZOLOFT) 50 MG tablet TAKE 1 TABLET BY MOUTH DAILY 90 Tab 3 ??? ALBUterol sulfate HFA 108 (90 BASE) MCG/ACT inhaler Inhale 1-2 Puffs every 4 hours as needed forWheezing. 1 Inhaler 2 No facility-administered medications prior to visit. Family History Problem Relation Age of Onset ??? Cancer Mother colon CA @ 62yo and in maternal aunt ??? Thyroid Disorder Brother hypothyroid ??? LW Problem: V16.0 Ca Colon Fam Hx LW Modifier: colonoscopy at 10/2004 LW Onset: [id number] ??? Cancer, Colon Mother ??? Clotting Disorder Mother Factor V Leiden ??? DVT/PE Mother ??? Emphysema Father ??? Heart Disease Father ??? Clotting Disorder Father Factor V Leiden ??? Multiple Sclerosis Sister ??? Allergies Sister ??? Depression Sister ??? Allergies Brother ??? Depression Brother ??? Thyroid Disorder Brother ??? Clotting Disorder Brother Factor V Leiden ??? Allergies Brother ??? Depression Brother ??? Allergies Brother ??? Depression Brother ??? Allergies Brother ??? Depression Brother ??? Colon Polyps Maternal Aunt ??? Cancer, Breast Maternal Aunt 70 ??? Cancer, Breast Other 40 br ca Habits: reports that she has never smoked. She has never used smokeless tobacco. reports that she drinks about 6.0 oz of alcohol per week. reports that she does not use illicit drugs. Review of Systems: With the exception of any items noted above, the remainder of the complete ROS is negative. OBJECTIVE: Vital Signs: height is 1.645 m (5' 4.75) and weight is 122.018 kg (269 lb). Her blood pressure is 136/84 and her pulse is 80. , Estimated body mass index is 45.09 kg/(m^2) as calculated from the following: Height as of this encounter: 1.645 m (5' 4.75). Weight as of this encounter: 122.018 kg (269 lb). General: female, alert, in NAD. HEENT: PERRLA, EOMI, [...] gait without edema, lesions, or deformity. Pelvic: External normal without lesions. Vagina reveals atrophic mucosa with no vaginal or cervical lesions, and no abnormal discharge. Some white vaginal discharge likely consistent with yeast. Some discomfort with exam. Bimanual reveals uterus to be mobile, normal size, shape and consistency. No adenexal masses or tenderness. Rectal: Normal tone, no mass. Neuro: CN II-XII, motor & sensory function all intact. Psychiatric: Alert & oriented with normal affect and insight. Diagnostics: Chest x-ray clear. ASSESSMENT: 1. Encounter Diagnoses Name Primary? Routine physical examination Yes ??? Cough ??? Other vitamin B12 deficiency anemia ??? Hiatal hernia ??? Controlled type 2 diabetes mellitus without complication, without long-term current use of insulin (HRC) ??? S/P gastric bypass ??? Hx of cancer of endometrium ??? Mild intermittent asthma without complication (HRC) ??? Macrocytosis without anemia ??? Osteopenia, unspecified location ??? Vitamin D deficiency (HRC) ??? Elevated ALT measurement ??? Need for pneumococcal vaccination PLAN: 1. Physical exam, Pap Smear, HPV, pelvic exam, clinical breast exam were completed. Recommend monthly self breast exam and annual mammogram. Pneumovax. For coughing, this is likely asthma flare up. She also has gained back weight, may have acid reflux.She will take prednisone for 1 week. She will start on Qvar 2 puffs b.i.d. Refill albuterol. Follow-up in 3 weeks if not improved. Chest x- ray looks clear. For Type II diabetes, is worsening due to weight gain. Check again in 6 months. She will restart at the gym as soon as possible after the move. For alcohol overuse with increasing ALT, course I recommended complete alcohol cessation for her. She does not feel she needs any help or assistance today. For history gastric bypass, reviewed multiple metabolic studies were drawn prior to visit. Annual rechecks are recommended. 2. Orders Placed This Encounter Procedures ??? ALT (SGPT) ??? AST ??? Microalb/Creat Ratio ??? Hgb A1c ??? Pap Test Order ??? HPV with 16 18 Genotyping ??? Pap Smear ??? XR Chest 2 Views ??? MM Mammogram Screening Bilat W CAD ??? PPSV23 (PNEUMOVAX) Orders Placed This Encounter Medications ??? beclomethasone (QVAR) 40 MCG/ACT inhaler Sig: Inhale 2 Puffs two times a day. Rinse mouth/gargle after use Dispense: 8.7 g Refill: 11 ??? ALBUterol sulfate HFA 108 (90 BASE) MCG/ACT inhaler Sig: Inhale 1-2 Puffs every 4 hours as needed for Wheezing. Dispense: 2 Inhaler Refill: 3 ??? predniSONE (DELTASONE) 20 MG tablet Sig: Take 1 Tab by mouth two times a day. Dispense: 14 Tab Refill: 0 There are no Patient Instructions on file for this visit. General preventive health measures were reviewed with patient. Labs: We will mail lab results to patient or contact patient if needed by phone for significant abnormals. *SH~DNS~PEF documented in this encounter Plan of Treatment Not on filedocumented as of this encounter Procedures Procedure Name Priority Date/Time Associated Diagnosis Comme nts PAP TEST ORDER Routine 09/30/2016 9:20 AM Hx of cancer of Resu lts for this CDT endometrium procedure are i n the results section. HPV WITH 16 18 Routine 09/30/2016 9:20 AM Results for this GENOTYPING, CDT procedure are i n CERVICAL/ENDOCERVICA the res ults L section. ANATOMICAL PATH Routine 09/30/2016 9:20 AM Result s for this LIQUID BASED CDT procedure are i n the results section. documented in this encounter Results (ABNORMAL) Hgb A1c (04/07/2017 1:05 PM CDT) P athologist Signature HGB A1C 6.3 (H) 4.0 - 5.6 % PN SOFT Specimen Anatomical Collection Method Collection Time Receive d Time (Source) Location / / Volume Laterality 04/07/2017 1:05 PM 7 6:38 CDT PM CDT Narrative PN SOFT - 04/07/2017 10:38 PM CDT Performed at [facility], [address] [place] [address] [place] number [id number] Olamide Rodney MD LAB_1 Performing Organization Address City/State/ZIP Code Phon e Number PN SOFT [address] [place] [address] [phone] MM Mammogram Screening Bilat W CAD (01/09/2017 [...] ignancy. ?? Olamide Rodney MD RAD SHERYL XR Chest 2 Views (09/30/2016 9:23 AM [...] acute process. Olamide Rodney MD RAD GD Pap Smear (09/30/2016 9:20 AM CDT) Specimen (Source) Anatomical Collection Method Collection Time Re ceived Time Location / / Volume Laterality 09/30/2016 9:20 AM CDT Narrative PN SOFT - 10/02/2016 2:32 PM CDT FINAL GYNECOLOGICAL CYTOLOGY REPORT Pathology #: [id number] ?Date Obtained: 09/30/2016 ? Date Received: 10/01/2016 INTERPRETATION/RESULTS: Negative for Intraepithelial Lesion or M alignancy. SPECIMEN ADEQUACY: Satisfactory for Evaluation. ??No endoce rvical cells/transformation zone component present; patient is postmenopa usal. Verified on 10/02/2016 ??by EPHRAIM SCHERER(ASCP) (electronic signature) CLINICAL NOTES: ?Abnormal bleeding: No, [...] false-negative report s may occur. Performed at [facility], [address] [place] [address] Olamide Rodney MD LAB_1 Performing Organization Address City/State/ZIP Code Phon e Number SOFT [address] [place] [address] HPV with 16 18 Genotyping (09/30/2016 9:20 AM CDT) [facility] gist Method Time Signature HPV High Risk Not Detected PN SOFT 16 HPV High Risk Not Detected PN SOFT 18 Other HPV High Not Detected PN SOFT Risk Not 16/18 Comment: ........................................ ................................. The [facility] HPV Test is a qualitative in v itro test for the detection of Human Papillomavirus in [facility] patient specimens. ??The test utilizes amplifica tion [...] and its pe rformance characteristics determined by [facility]. It has not been cleared or approved by [facility]. The laboratory is regulated under CLIA as qualified to perform high-complexity testing. This test is used for clinical purposes. It should not be regarded as investigational or fo r research. Specimen Anatomical Collection Method Collection Time Receive d Time (Source) Location / / Volume Laterality 09/30/2016 9:20 AM 7 9:20 CDT AM CDT Narrative PN SOFT - 10/02/2016 3:05 PM CDT Performed at [facility], [address] [place] [address] CLIA number [id number] Olamide Rodney MD LAB_1 Performing Organization Address City/State/ZIP Code Phon e Number PN SOFT [address] [place] [address] Pap Test Order (09/30/2016 9:20 AM CDT) Analysis Performed At [facility] logist Time Signature Pap Smear Collected PN SOFT Monolayer tracking test Specimen Anatomical Collection Method Collection Time Receive d Time (Source) Location / / Volume Laterality 09/30/2016 9:20 AM 7 5:49 CDT AM CDT Narrative BHAKTI NEELY - 09/30/2016 9:21 AM CDT Performed at [facility], [address] [place] [address] [place] number [id number] Olamide Rodney MD LAB_1 Performing Organization Address City/State/ZIP Code Phon e Number CHIN [address] [place] [address] documented in this encounter Visit Diagnoses Diagnosis Routine physical examination - Primary Routine general medical examination at a health care facility Cough Other vitamin B12 deficiency anemia Hiatal hernia Diaphragmatic hernia without mention of obstruction or gangrene Controlled type 2 diabetes mellitus with out complication, without long-term current use of insulin (HRC) S/P gastric bypass Bariatric surgery status Hx of cancer of endometrium Personal history of malignant neoplasm o f other parts of uterus Mild intermittent asthma without complic ation (HRC) Unspecified asthma Macrocytosis without anemia Other specified diseases of blood and bl ood-forming organs Osteopenia, unspecified location Vitamin D deficiency (HRC) Unspecified vitamin D deficiency Elevated ALT measurement Nonspecific elevation of levels of trans aminase or lactic acid dehydrogenase (LDH) Need for pneumococcal vaccination Need for prophylactic vaccination agains t streptococcus pneumoniae (pneumococcus) Cough Routine physical examination Routine general medical examination at a health care facility documented in this encounter Care Teams Chemistry Teacher Relationship Specialty Start Date End Date Olamide Rodnye MD PCP - General 09/25/10 01/11/21 [address] [place] [address] documented as of this encounter
--- OUTSIDE RECORDS SUMMARY | 2022-01-29 17:49 | XMS_ITS | Encounter Summary ---
:1960 Author Organization [employer] Address [address] [place] [address] Care Team Providers Name Role Phone Olamide Rodney MD Primary Care Provider Encounter Details Date Type Department Care Team Description 03/29/2016 Lab Visit [facility] Diabetes type 2, controlled (HRC); [address] [facility] Vitamin D deficiency [place], [place] [id number] Social History Tobacco Use Types Packs/Day Years [...] Name Priority Date/Time Associated Diagnosis Comme nts VITAMIN D Routine 03/29/2016 4:00 PM Vitamin D deficiency R esults for this 25-HYDROXY, TOTAL CDT procedure are in the results section. HGB A1C Routine 03/29/2016 4:00 PM Diabetes type 2, Resul ts for this CDT controlled (HRC) procedure a re in the results section. documented in this encounter [...] - 03/29/2016 10:04 PM CDT Performed at [address] [address] CLIA number [id number] Olamide Rodney MD LAB_1 Performing Organization Address [facility] Phon e Number PN SOFT [address] [place] [address] (ABNORMAL) Hgb A1c (03/29/2016 4:00 PM CDT) athologist Signature HGB A1C 6.2 (H) 4.0 - 5.6 % PN SOFT Specimen Anatomical Collection Method Collection Time Receive d Time (Source) Location / / Volume Laterality 03/29/2016 4:00 PM 6 6:16 CDT PM CDT Narrative PN SOFT - 03/29/2016 9:56 PM CDT Performed at [address] [address] CLIA number [id number] Olamide Rodney MD LAB_1 Performing Organization Address City/[facility] Phon e Number PN SOFT [address] [place] [address] [phone] documented in this encounter Visit Diagnoses Diagnosis Diabetes type 2, controlled (HRC) Type II or unspecified type diabetes rod litus without mention of complication, not stated as uncontrolled Vitamin D deficiency (HRC) Unspecified vitamin D deficiency documented in this encounter Care Teams Documentation Lead Relationship Specialty Start Date End Date Olamide Rodney MD PCP - General 09/25/10 01/11/21 [address] [place], [place] [address] documented as of this encounter
--- OUTSIDE RECORDS SUMMARY | 2022-01-29 17:50 | XMS_ITS | Encounter Summary ---
:1960 Author Organization [employer] Address [address] [place] [address] Care Team Providers Name Role Phone Olamide Rodney MD Primary Care Provider Reason for Referral Specialty Diagnoses / Procedures Referred By Contact Refer red To Contact Olamide Rodney MD [address] [place], [place] [address] Referral ID Status Reason Start Date Expiration Date Visits Requ ested Visits Authorized TIONS ANALYST Reason for Visit Reason Comments Sleep problems Encounter Details Date Type Department Care Team Description 05/25/2014 Office Visit [facility] Oneida Rivers MD Circadian rhythm sleep disorder, delayed sleep phase type (Primary Dx); [address] [place] [address] [address] [place] [address] (Wo rk) Social History Tobacco Use Types Packs/Day Years Used Date Smoking Tobacco: Never Alcohol Use Standard Drinks/Week Comments Yes 0 (1 standard drink = 0.6 oz pure alcoho l) mod Sex Assigned at Date Recorded Not on file documented as of this encounter Last Filed Vital Signs Vital Sign Reading Time Taken Comments Blood Pressure 157/89 05/25/2014 3:25 PM SOLUTIONS ANALYST Pulse 76 05/25/2014 3:25 PM SOLUTIONS ANALYST Temperature - - Respiratory Rate - - Oxygen Saturation 100% 05/25/2014 3:25 PM SOLUTIONS ANALYST Inhaled Oxygen Concentration - - Weight 95.3 kg (210 lb) 05/25/2014 3:25 PM SOLUTIONS ANALYST Height 165.1 cm (5' 5) 05/25/2014 3:25 PM SOLUTIONS ANALYST Body Mass Index 34.95 05/25/2014 3:25 PM SOLUTIONS ANALYST documented in this encounter Progress Notes Oneida Rivers MD - 06/02/2014 11:09 AM CST Consult note Sleep Issue HPI: Paty Stovall is a 53 y.o. female seen in consultation for chronic insomnia. This has been present muchof her life. She started using alcohol to combat this. Goes to bed at 11 pm with a sleep latency of 1-2 hours. [place] sleep time would be 2 am-10 am. Work hours are flexible but she works 8-4 as she likes to spend the evenings with her . Wakes up 1-2 times at night. Gets up at 6:30 am. Denies snoring or observed apneas. She is not sleepy during the day and never naps. Recently went through inpatient alcohol detox and states she isn't actively drinking at present. Patient Active Problem List Diagnosis ??? Deep Venous Thrombosis ??? Factor V Leiden ??? Hernia Hiatal ??? Lumbar Disc Degeneration ??? Diabetes type 2, controlled ??? Chronic insomnia ??? Actinic keratoses ??? Nondependent alcohol abuse ??? Chronic abdominal pain ??? Varicose veins ??? Superficial thrombophlebitis ??? S/P gastric bypass ??? Hx of cancer of endometrium ??? Unspecified asthma ??? Macrocytosis without anemia ??? Osteopenia ??? Alcoholism, chronic (HCC) has past surgical history that includes Gastric bypass surgery (2002); [place] tooth extraction; eyesurgery; analy and bso; Cholecystectomy; lipectomy (2004); Ovary removal; and Hysterectomy. Social Hx: . 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 reports that she has never smoked. She has never used smokeless tobacco. She reports that she does not drink alcohol or use illicit drugs. Outpatient Prescriptions Prior to Visit Medication Sig Note ??? aspirin 81 mg tablet Take 2 tablets by mouth daily (every 24 hours). LW Addl Instr:hold until lovenox dc'd 01/25/2014: Stopped taking aspirin per instructions for procedure. ??? b complex-vitamin c-folic acid (NEPHROCAPS) 1 mg capsule Take 1 capsule by mouth daily (every 24hours). ??? cyanocobalamin (VITAMIN B12) 1,000 mcg tablet Take 1,000 mcg by mouth daily (every 24 hours). 6 times/week ??? folic acid 400 mcg tablet Take 400 mcg by mouth daily (every 24 hours). ??? multivitamin (THERAGRAN) tablet Take 2 tablets by mouth daily (every 24 hours). No facility-administered medications prior to visit. family history includes Allergies in her brother, brother, brother, brother, and sister; Cancer, Breast (age of onset: 70) in her maternal aunt; Cancer, Colon in her mother; Clotting Disorder in her brother, father, and mother; Colon Polyps in her maternal aunt; Conversion Family History in an other family member; DVT/PE in her mother; Depression in her brother, brother, brother, brother, and sister;Emphysema in her father; Heart Disease in her father; Mult Sclerosis in her sister; Thyroid Disease in her brother. Allergies Allergen Reactions ??? Flovent [Fluticasone] laryngitis ??? Lanolin Hives ??? Other LW Other1: -NONE KNOWN ??? Oxycodone-Acetaminophen LW Reaction: Itching, Pruritis ??? Review Contrast Media LW CM1: >>> NO CONTRAST ADVERSE REACTION <<< Reaction : ??? Review Food Intolerance LW FI1: NO KNOWN FOOD ALLERGIES OR INTOLERANCES LW FI2: NO KNOWN FOOD ALLERGIES OR INTOLERANCES ROS: no chest pain or dyspnea NO restless legs NO sleep walking/talking Does not snore. No apneas. Physical exam: BP 157/89 Pulse 76 Ht 5' 5 (1.651 m) Wt 210 lb (95.255 kg) BMI 34.95 kg/m2 SpO2 100% GEN: Pleasant, alert, NAD HEENT: NCAT. Oropharynx: moderate narrowing of the posterior oropharynx. no tonsillar hypertrophy. moderate sized tongue. Neck is supple without lymphadenopathy or masses. PSYCH: Pleasant, bright affect. NEURO: No tremor or dysarthria. Clinical data: sleep questionnaire reviewed. [place] sleepiness Scale: 2 Outpatient notes reviewed. ASSESSMENT/PLAN: 1. Chronic insomnia ?? She is currently abusing Benadryl. ?? I have told her to stop this JOSE RAMON as it can be deadly. ?? Explained that medications don't tend to work in the long run for chronic insomnia. ?? I recommended CBT and she agrees. ?? She will see Arabella Phillipshugo. ?? She will continue to abstain from alcohol. 2. Circadian rhythm disorder-delayed sleep phase ?? Will try melatonin 1-4 mg at 9 pm. ?? She will meet with Arabella thapa to discuss appropriate sleep timing. ?? She will benefit from delaying her sleep time. ?? She also needs better sleep hygiene as she is reading in bed All of her questions were answered. She states understanding and agreement with my assessment and plan as outlined above. Total time spent: 30 minutes. More than half spent in face to face counseling/coordination of care with the patient. Oneiad Rivers MD TIONS ANALYST documented in this encounter Plan of Treatment Scheduled Referrals Name Type Priority Associated Diagnoses Order [facility]/Pulmonary Referral Routine Chronic insomnia Or dered: 05/25/2014, Consult-Adult Expires: 05/25 documented as of this encounter Visit Diagnoses Diagnosis Circadian rhythm sleep disorder, delayed sleep phase type - Primary Chronic insomnia Insomnia, unspecified documented in this encounter Care Teams Special Class Welder Relationship Specialty Start Date End Date Olamide Rodney MD PCP - General 09/25/10 01/11/21 [address] [place] [address] documented as of this encounter
--- OUTSIDE RECORDS SUMMARY | 2022-01-29 17:50 | XMS_ITS | Encounter Summary ---
:1960 Author Organization [employer] Address [address] [place] [address] Care Team Providers Name Role Phone Olamide Rodney MD Primary Care Provider Reason for Visit Reason Comments Ankle Problem Encounter Details Date Type Department Care Team Description 04/12/2015 Office Visit [facility] Kami Spaulding P T Achilles tendinitis Therapy [address] [facility] of right lower [address] [place], [place] extremity ([place] [address] Dx) [phone] (Wo rk) Social History Tobacco Use Types Packs/Day Years Used Date Smoking Tobacco: Never Alcohol Use Standard Drinks/Week Comments Yes 0 (1 standard drink = 0.6 oz pure alcoho l) mod Sex Assigned at Date Recorded Not on file documented as of this encounter Progress Notes Kami Spaulding, PT - 04/12/2015 7:31 AM CDT Encounter date: 04/12/2015 [facility] : 1960 [facility] Visit Number: 3 Initial Certification Period: 03/28/2015 to 05/27/15 Referring Provider: Ronal Hinojosa Visit Diagnosis: Diagnosis ICD-10-CM ICD-9-CM 1. Achilles tendinitis of right lower extremity M76.61 726.71 Precautions: Diabetes Type II, s/p gastric bypass, DVT history, factor V Leiden, endometrial CA SUBJECTIVE: Patient reports that she is doing well. Minimal complaints of pain although she has not been too aggressive with her exercise. OBJECTIVE Current Objective Findings: Mild tenderness over achilles insertion into the calcaneus. Able to perform resisted ankle plantarflexion without pain. Patient able to perform single leg stance but requires more effort on the right than the left. Treatment/Education Today: Therapeutic exercise x 10 minutes: Performed theraband plantarflexion (green x 10), tandem stance moving into single leg stance and weight bearing gastroc/soleus stretch. Manual therapy x 10 minutes: Performed soft tissue mobilization to the gastroc/soleus including cross friction mobilization. Ultrasound: US at 50% for 8 minutes to achilles area (total time = 10 min) Timed Code Treatment Minutes: 30 Total Treatment Minutes: 30 Current Home Exercise Program List: NWB gastroc/soleus stretch, heraband plantarflexion (green x 10), tandem stance moving into single leg stance and weight bearing gastroc/soleus stretch. ASSESSMENT: Patient does seem improved overall. Started some strengthening exercises. Goals/Functional Outcomes: HEP/Independent Management: Demonstrate independence with HEP and self- management following each treatment session MET Ambulation: Ambulate with normal gait pattern on uneven surfaces with minimal to no symptoms/limp in4-6 weeks. Ascend/descend stairs independently with reciprocal pattern with minimal to no symptoms and improvedlower extremity alignment in 4-6 weeks. Plan: Recheck next week. Progress strengthening exercises as tolerated. documented in this encounter Plan of Treatment Not on filedocumented as of this encounter Visit Diagnoses Diagnosis Achilles tendinitis of right lower extre mity - Primary Achilles bursitis or tendinitis documented in this encounter Care Teams Material Flow Analyst Relationship Specialty Start Date End Date Olamide Rodney MD PCP - General 09/25/10 01/11/21 [address] [place] [address] documented as of this encounter
--- OUTSIDE RECORDS SUMMARY | 2022-01-29 17:50 | XMS_ITS | Encounter Summary ---
:1960 Author Organization [employer] Address [address] [place] [address] Care Team Providers Name Role Phone Olamide Rodney MD Primary Care Provider Reason for Visit Reason Comments Follow-up Encounter Details Date Type Department Care Team Description 03/15/2015 Office Visit [facility] Jeremy Madrid His tory of Services-LANCE CREWMEMBER MD Joni endometrial cancer [address] [place] [address] (Primary Dx) [address], [address] [place] [address] [place], [place] [phone] (Wo rk) [address] [phone] Social History Tobacco Use Types Packs/Day Years Used Date Smoking Tobacco: Never Alcohol Use Standard Drinks/Week Comments Yes 0 (1 standard drink = 0.6 oz pure alcoho l) mod Sex Assigned at Date Recorded Not on file documented as of this encounter Last Filed Vital Signs Vital Sign Reading Time Taken Comments Blood Pressure 127/80 03/15/2015 7:11 AM CDT Pulse 66 03/15/2015 7:11 AM CDT Temperature - - Respiratory Rate - - Oxygen Saturation - - Inhaled Oxygen Concentration - - Weight 108.9 kg (240 lb) 03/15/2015 7:11 AM CDT Height - - Body Mass Index 39.94 09/12/2014 8:03 AM CDT documented in this encounter Progress Notes Jeremy Madrid - 03/15/2015 7:42 AM CDT Progress Notes signed by Jeremy Madrid MD at 03/16/15 0658 Author: Jeremy Madrid MD Service: (none) Author Type: Physician Filed: 03/16/15 0658 Note Time: 03/15/152247 Status: Signed Lion Trainer: Jeremy Madrid MD (Physician) NAME: PATY LLAMAS MR#: [id number] CSN: [id number] AUTHENTICATING CLINICIAN: Jeremy Madrid MD CONFIRM #: [id number] LOC: 512 CLINIC PROGRESS NOTE DATE OF VISIT: 03/15/2015 : 1960 Paty Llamas is a 54-year-old female, who presents today for a cancer surveillance visit. Her originaldiagnosis and staging was in August of [address] Jackson Iqbal. She was staged as 1A grade 2 endometrial carcinoma. Her prognosis is excellent. He has advised every 6 year surveillance with Pap smearsannually her Pap in September of 2014 was negative. She is presently without complaints. She denies any vaginal bleeding or pelvic discomfort. PHYSICAL EXAMINATION: ABDOMEN: Obese soft and nontender. Pfannenstiel scar is clean, dry, and intact. No inguinal adenopathy is appreciated. GENITALIA: On pelvic examination, the external genitalia are without lesions. The vagina is negativethroughout its course. The vaginal apex is well supported and intact. There are no vaginal apical masses or tenderness. Bimanual examination reveals no induration or thickening of the vaginal apex. No pelvic masses or tenderness are appreciated. ASSESSMENT: Normal endometrial cancer surveillance visit. This spring the patient will now be 5 years out and can return to annual care. She receives this with Dr. Rodney and this would be satisfactory. She is delighted to reach her 5 year surveillance with no evidence of recurrence. CJS:MEDQ C: CONFIRM #: [id number] documented in this encounter Plan of Treatment Not on filedocumented as of this encounter Visit Diagnoses Diagnosis History of endometrial cancer - Primary Personal history of malignant neoplasm o f other parts of uterus documented in this encounter Care Teams Shop Assistant Relationship Specialty Start Date End Date Olamide Rodney MD PCP - General 09/25/10 01/11/21 [address] [place] [address] documented as of this encounter
--- OUTSIDE RECORDS SUMMARY | 2022-01-29 17:50 | XMS_ITS | Encounter Summary ---
:1960 Author Organization [employer] Address [address] [place] [address] Care Team Providers Name Role Phone Olamide Rodney MD Primary Care Provider Encounter Details Date Type Department Care Team Description 03/22/2015 Imaging [facility] Left foot pain [address] [place], [place] [address] Social History Tobacco Use Types Packs/Day Years Used Date Smoking Tobacco: Never Alcohol Use Standard Drinks/Week Comments Yes 0 (1 standard drink = 0.6 oz pure alcoho l) mod Sex Assigned at Date Recorded Not on file documented as of this encounter Plan of Treatment Not on filedocumented as of this encounter Procedures Procedure Name Priority Date/Time Associated Diagnosis Comme nts XR FOOT LT 3+ VIEWS Routine 03/22/2015 1:01 PM Left foot pain Results for this CDT procedure are i n the results section. documented in this encounter Results XR Foot Lt 3+ Views (03/22/2015 1:01 PM CDT) Anatomical Region Laterality Modality Lower Extremity, Foot Other Specimen (Source) Anatomical Location Collection Method / Collectio n Time Received Time / Laterality Volume Narrative 03/22/2015 1:12 PM CDT COMPARISON: ??None. FINDINGS: ??3 views of left foot. No acu te fracture. No dislocation. Tarsal metatarsal alignment normal. Prominent plantar calcaneal heel spur and Achilles tendon enthesophyte. Procedure Note Nixon Mcdonald - 12/10/2015Formatt ing of this note might be different from the original. COMPARISON: None. FINDINGS: 3 views of left foot. No acute fracture. No dislocation. Tarsal metatarsal alignment normal. Prominent plantar calcaneal heel spur and Achilles tendon enthesophyte. Olamide Rodney MD RAD GD documented in this encounter Visit Diagnoses Diagnosis Left foot pain Pain in limb documented in this encounter Care Teams Manager Of Selection And Assessment Relationship Specialty Start Date End Date Olamide Rodney MD PCP - General 09/25/10 01/11/21 [address] [place] [address] documented as of this encounter
--- OUTSIDE RECORDS SUMMARY | 2022-01-29 17:50 | XMS_ITS | Encounter Summary ---
:1960 Author Organization [employer] Address [address] [place] [address] Care Team Providers Name Role Phone Olamide Rodney MD Primary Care Provider Reason for Visit Reason Comments Ankle Problem Encounter Details Date Type Department Care Team Description 04/06/2015 Office Visit [facility] Kami Spaulding P T Achilles tendinitis Therapy [address] [facility] of right lower [address] [place], [place] extremity ([place] [address] Dx) [phone] (Wo rk) Social History Tobacco Use Types Packs/Day Years Used Date Smoking Tobacco: Never Alcohol Use Standard Drinks/Week Comments Yes 0 (1 standard drink = 0.6 oz pure alcoho l) mod Sex Assigned at Date Recorded Not on file documented as of this encounter Progress Notes Kami Spaulding, PT - 04/06/2015 3:04 PM CDT Encounter date: 04/06/2015 [facility] 1960 [facility] Visit Number: 2 Initial Certification Period: 03/28/2015 to 05/27/15 Referring Provider: Ronal Hinojosa Visit Diagnosis: Diagnosis ICD-10-CM ICD-9-CM 1. Achilles tendinitis of right lower extremity M76.61 726.71 Precautions: Diabetes Type II, s/p gastric bypass, DVT history, factor V Leiden, endometrial CA SUBJECTIVE: Patient reports that she was ill over the weekend and off of her feet so her right achilles does feel better overall. Did have an episode of cramping while exercising yesterday but felt it was due to dehydration. OBJECTIVE Current Objective Findings: Mild tenderness over achilles insertion into the calcaneus. Treatment/Education Today: Therapeutic exercise x 5 minutes: Reviewed NWB gastroc/soleus stretch. Manual therapy x 15 minutes: Performed soft tissue mobilization to the gastroc/soleus Ultrasound: US at 50% for 8 minutes to achilles area (total time = 10 min) Timed Code Treatment Minutes: 30 Total Treatment Minutes: 30 Current Home Exercise Program List: NWB gastroc/soleus stretch. ASSESSMENT: Patient does seem less symptomatic today but she has not been on her feet as usual. Goals/Functional Outcomes: HEP/Independent Management: Demonstrate independence with HEP and self- management following each treatment session Ambulation: Ambulate with normal gait pattern on uneven surfaces with minimal to no symptoms/limp in4-6 weeks. Ascend/descend stairs independently with reciprocal pattern with minimal to no symptoms and improvedlower extremity alignment in 4-6 weeks. Plan: Recheck next week. documented in this encounter Plan of Treatment Not on filedocumented as of this encounter Visit Diagnoses Diagnosis Achilles tendinitis of right lower extre mity - Primary Achilles bursitis or tendinitis documented in this encounter Care Teams Horse Stud Manager Relationship Specialty Start Date End Date Olamide Rodney MD PCP - General 09/25/10 01/11/21 [address] [place] [address] documented as of this encounter
--- OUTSIDE RECORDS SUMMARY | 2022-01-29 17:50 | XMS_ITS | Encounter Summary ---
:1960 Author Organization [employer] Address [address], [place] [address] Care Team Providers Name Role Phone Olamide Rodney MD Primary Care Provider Reason for Visit Reason Comments DEPRESSION Encounter Details Date Type Department Care Team Description 05/11/2015 Office Visit [facility] Olamide Rodney Dep ression, Hayley dalton MD single episode, mild [address] (Primary Dx) [place] [address] [address]vd [phone] [place] [address] (Wo rk) Social History Tobacco Use Types Packs/Day Years Used Date Smoking Tobacco: Never Alcohol Use Standard Drinks/Week Comments Yes 0 (1 standard drink = 0.6 oz pure alcoho l) mod Sex Assigned at Date Recorded Not on file documented as of this encounter Last Filed Vital Signs Vital Sign Reading Time Taken Comments Blood Pressure 148/91 05/11/2015 2:12 PM WORLD RENOWNED CHEF AND RESTAURANT OWNER Pulse 75 05/11/2015 2:12 PM WORLD RENOWNED CHEF AND RESTAURANT OWNER Temperature - - Respiratory Rate - - Oxygen Saturation - - Inhaled Oxygen Concentration - - Weight 109.3 kg (241 lb) 05/11/2015 2:12 PM WORLD RENOWNED CHEF AND RESTAURANT OWNER Height - - Body Mass Index 40.1 09/12/2014 8:03 AM CDT documented in this encounter Progress Notes Olamide Rodney MD - 05/13/2015 7:42 PM CST SUBJECTIVE: 54 y.o.-year-old female with depression. Patient feels depressive symptoms. Yesterday she did not work. She felt crying and tearful. She notes 15 years ago she took some Zoloft. She thinks it was helpful. She does feel she might of gotten somewhat flat emotionally. Phq9 score 6, no suicidal thought or ideation. She is hoping she will not need to take time off from work but not sure. She is trying to decrease her alcohol intake. She is not alcohol free. She does not wish to get any help with this today. Her goal is to try Zoloft. Allergies Allergen Reactions ??? Flovent [Fluticasone] laryngitis [...] Visit Medication Sig Note Dispense Refill ??? albuterol HFA 90 mcg/actuation inhaler Inhale 2 puffs every 6 hours as needed for Wheezing. 1 Inhaler 1 ??? aspirin 81 mg tablet Take 2 [...] by mouth daily (every 24 hours). ??? melatonin 1 mg Tab Take 1 tablet by mouth nightly. (Patient taking differently: Take 6 mg by mouth nightly.) 100 tablet 1 ??? multivitamin (THERAGRAN) tablet Take 2 tablets by mouth daily (every 24 hours). No facility-administered medications prior to visit. Past Medical History Diagnosis Date ??? Deep [...] cancer of endometrium 07/26/2011 ??? [place].90[place] 08/19[place] ??? Macrocytosis without anemia 04/22/2012 ??? [place] allergic triggers OBJECTIVE: Vitals: BP 148/91 mmHg Pulse 75 Wt 109.317 kg (241 lb) General: 54 y.o.-year-old female Heart: RR without murmurs, rubs, or gallops. Psychiatric: Appropriate mood and affect. ASSESSMENT: 1. Encounter Diagnosis Name Primary? Depression, major, single episode, mild (HRC) Yes PLAN: 1. start sertraline 50 mg one half tab daily for 1 week then 1 tab daily. Discussed side effects. Discussed to decrease or stop alcohol intake. Followup in 3-4 weeks. 2. No orders of the defined types were placed in this encounter. Orders Placed This Encounter Medications ??? sertraline (ZOLOFT) 50 mg tablet Sig: Take 1 tablet by mouth daily (every 24 hours). Dispense: 90 tablet Refill: 3 There are no Patient Instructions on file for this visit. The patient was discharged ambulatory and in stable condition. *SH~DNS~SOAP D RENOWNED CHEF AND RESTAURANT OWNER documented in this encounter Plan of Treatment Not on filedocumented as of this encounter Visit Diagnoses Diagnosis Depression, major, single episode, mild ([facility]) - Primary Major depressive disorder, single episod e, mild documented in this encounter Care Teams Baggage And Mail Agent Relationship Specialty Start Date End Date Olamide Rodney MD PCP - General 09/25/10 01/11/21 [address] [place] [address] documented as of this encounter
--- OUTSIDE RECORDS SUMMARY | 2022-01-29 17:50 | XMS_ITS | Encounter Summary ---
:1960 Author Organization [employer] Address [address] [place] [address] Care Team Providers Name Role Phone Olamide Rodney MD Primary Care Provider Reason for Visit Reason Comments Ankle Problem Encounter Details Date Type Department Care Team Description 04/21/2015 Office Visit [place] Kami Spaulding P T Achilles tendinitis Therapy [address] [facility] of right lower [address] [place], [place] extremity ([place] [id number] Dx) [phone] (Wo rk) Social History Tobacco Use Types Packs/Day Years Used Date Smoking Tobacco: Never Alcohol Use Standard Drinks/Week Comments Yes 0 (1 standard drink = 0.6 oz pure alcoho l) mod Sex Assigned at Date Recorded Not on file documented as of this encounter Progress Notes Kami Spaulding, PT - 05/22/2015 2:49 PM CST Encounter Date: 04/21/2015 Pt : 1960 [facility] Discharge Summary Patient was seen for therapy from 03/28/15 through 04/21/15. Patient was compliant with attendance and therapy recommendations. Total Visits: 4 Reason for discharge: Therapy goals met, or therapist expects patient to meet goals through home program. Outcome measures at discharge: PT Program:Musculoskeletal - Ankle Foot & Ankle Ability Measure - ADL (0-100%, 100% being best): 96 % Attainment of goals: The following is a review of the therapy goals: HEP/Independent Management: Demonstrate independence with HEP and self- management following each treatment session MET Ambulation: Ambulate with normal gait pattern on uneven surfaces with minimal to no symptoms/limp in4-6 weeks. MET Ascend/descend stairs independently with reciprocal pattern with minimal to no symptoms and improvedlower extremity alignment in 4-6 weeks. MET Discharge recommendations: Patient will continue to work independently with home program/self management strategies. Therapist instructed patient to call with questions or concerns. PTURE INSTRUCTOR Kaim Spaulding, PT - 04/21/2015 7:18 AM CDT Encounter date: 04/21/2015 Pt : 1960 [facility] Physical Therapy Progress Note Visit Number: 4 Initial Certification Period: 03/28/2015 to 05/27/15 Referring Provider: Ronal Hinojosa Visit Diagnosis: Diagnosis ICD-10-CM ICD-9-CM 1. Achilles tendinitis of right lower extremity M76.61 726.71 Precautions: Diabetes Type II, s/p gastric bypass, DVT history, factor V Leiden, endometrial CA SUBJECTIVE: Patient reports that she is doing well. Only has discomfort if she does not stretch out first in themorning. Able to go up and down the stairs reciprocally. OBJECTIVE Current Objective Findings: No tenderness over achilles insertion into the calcaneus. Able to perform bilateral toe rise and eccentric toe rise without discomfort. Treatment/Education Today: Therapeutic exercise x 5 minutes: Instructed in and performed bilateral toe rise progressing to eccentric toe rise as tolerated. Manual therapy x 10 minutes: Performed soft tissue mobilization to the gastroc/soleus including cross friction mobilization. Ultrasound: US at 50% for 8 minutes to achilles area (total time = 10 min) Timed Code Treatment Minutes: 25 Total Treatment Minutes: 25 Current Home Exercise Program List: NWB gastroc/soleus stretch, heraband plantarflexion (green x 10), tandem stance moving into single leg stance and weight bearing gastroc/soleus stretch, toe rises, eccentric toe rises. ASSESSMENT: Patient is doing well. Initiated further strengthening exercises. Goals/Functional Outcomes: HEP/Independent Management: Demonstrate independence with HEP and self- management following each treatment session MET Ambulation: Ambulate with normal gait pattern on uneven surfaces with minimal to no symptoms/limp in4-6 weeks. MET Ascend/descend stairs independently with reciprocal pattern with minimal to no symptoms and improvedlower extremity alignment in 4-6 weeks. MET Plan: If patient is doing well with exercises, she will cancel her last scheduled visit. documented in this encounter Plan of Treatment Not on filedocumented as of this encounter Visit Diagnoses Diagnosis Achilles tendinitis of right lower extre mity - Primary Achilles bursitis or tendinitis documented in this encounter Care Teams Pipeline Technician Relationship Specialty Start Date End Date Olamide Rodney MD PCP - General 09/25/10 01/11/21 [address] [place] [address] documented as of this encounter
--- OUTSIDE RECORDS SUMMARY | 2022-01-29 17:50 | XMS_ITS | Encounter Summary ---
:1960 Author Organization [employer] Address [address] [address] Care Team Providers Name Role Phone Olamide Rodney MD Primary Care Provider Reason for Visit Reason Comments Follow-up Encounter Details Date Type Department Care Team Description 03/09/2014 Office Visit [place] [facility] Olamide Rodney Alc ohol abuse, unspecified (Primary Dx); Hayley Antoine MD Need for influenza vaccination; [address] [place] [address] Bl [phone] [place], [place] [id number] (Wo rk) Social History Tobacco Use Types Packs/Day Years Used Date Smoking Tobacco: Never Alcohol Use Standard Drinks/Week Comments Yes 0 (1 standard drink = 0.6 oz pure alcoho l) mod Sex Assigned at Date Recorded Not on file documented as of this encounter Last Filed Vital Signs Vital Sign Reading Time Taken Comments Blood Pressure 150/90 03/09/2014 2:40 PM CDT Pulse 66 03/09/2014 2:40 PM CDT Temperature - - Respiratory Rate - - Oxygen Saturation - - Inhaled Oxygen Concentration - - Weight 97.1 kg (214 lb) 03/09/2014 2:40 PM CDT Height - - Body Mass Index 34.54 01/25/2014 1:29 PM CDT documented in this encounter Patient Instructions Patient InstructionsOlamide Rodney MD - 03/09/2014 3:14 PM CDT Please call the Pulmonary dept. at [phone] to schedule your appointment. Dr. Rivers at [place] for sleep consult. documented in this encounter Progress Notes Olamide Rodney MD - 03/13/2014 10:59 PM CDT SUBJECTIVE: 53 y.o.female followup. Patient did call and ended up at urgent care March 05. Patient had had significant alcohol intake. In December she says she realized she was drinking too much. She did the colonoscopy January 25. She tried to quit drinking. This was on January 24. She had withdrawal including hallucinations and tremors. She still wanted to stop drinking. Currently her last drink was Friday night. She felt much better yesterday. She did go to urgent care March 05. There were very helpful to her. She is not sure she would want to participate in any kind of treatment program or groups in the community. Encouraged her to do so. She says she has never been much of a joint or. She is worried about damage that she may have caused to her body. Current symptoms include feeling hypersensitive. Feels like she has pins andneedles at times. She is taking multivitamins according thiamine. She can still feel some anxiousness. She does not feel that she can work right now. She has paperwork for she can take short sabbatical. She has chronic insomnia. Ambien and trazodone have not really worked for her. She has a new bed. She coughs and wonders if this is from the new bed. She gets a sore throat and dryness. Allergies Allergen Reactions ??? Flovent [Fluticasone] laryngitis [...] aspirin per instructions for procedure. 3 ??? BIOTIN ORAL Take by mouth. 500 mg day ??? cyanocobalamin (VITAMIN B12) 1,000 mcg tablet Take 1,000 mcg by mouth daily (every 24 hours). 6 times/week ??? multivitamin (THERAGRAN) tablet Take 2 tablets by mouth daily (every 24 hours). ??? ondansetron (ZOFRAN-ODT) 4 mg disintegrating tablet Take 1 tablet by mouth every 8 hours as needed for Nausea or Vomiting. Dissolve tablet on tongue 30 tablet 0 No facility-administered medications prior to visit. reports that she has never smoked. She has never used smokeless tobacco. Past Medical History Diagnosis Date ??? Deep Venous Thrombosis 10/02/2005 ??? Depression NOS 10/02/2005 ??? Factor V Leiden 08/08/2010 ??? Hernia Hiatal 08/08/2010 ??? Lumbar Disc Degeneration 08/08/2010 ??? Diabetes type 2, controlled ([facility]) 04/23/2011 ??? Chronic insomnia 04/23/2011 ??? Actinic keratoses 04/23/2011 ??? Endometrial cancer ([facility]) 04/23/2011 ??? Nondependent alcohol abuse 04/23/2011 ??? Chronic abdominal pain 04/23/2011 ??? Varicose veins 04/23/2011 ??? Superficial thrombophlebitis 04/23/2011 ??? S/P gastric bypass 04/23/2011 ??? Hx of cancer of endometrium 07/26/2011 ??? Unspecified asthma(493.90) 08/19/2011 ??? Macrocytosis without anemia 04/22/2012 Past Surgical History Procedure Laterality Date ??? Gastric bypass surgery 2002 ??? [place] tooth extraction ??? Eye surgery PRK ??? David and bso endometrial cancer ??? Cholecystectomy ??? Lipectomy 2005 ??? Ovary removal ??? Hysterectomy Social History: . Employed. OBJECTIVE: Vitals: BP 150/90 Pulse 66 Wt 97.07 kg (214 lb) BMI 34.56 kg/m2 General: Obese white female Eyes: No icterus or injection. Throat: Moist mucous membranes without lesions, erythema, or exudate. Neck: Supple, without masses, lymphadenopathy or tenderness. No thyromegaly or thyroid nodules. No carotid bruits. No jugular venous distension. Respiratory: Normal respiratory effort. Lungs are clear with good breath sounds. Heart: RR without murmurs, rubs, or gallops. 2/4 radial artery pulse bilaterally. Abdomen: The abdomen was flat, soft, nontender, nondistended. Bowel sounds present. No masses or hepatosplenomegaly. Extremities: Full ROM without limitation, deformity or edema. Psychiatric: Anxious but cooperative. ASSESSMENT: 1. Encounter Diagnoses Name Primary? Alcohol abuse, unspecified Yes ??? Need for influenza vaccination ??? Chronic insomnia PLAN: 1. reviewed the situation. She'll continue her vitamins. She'll remain free of alcohol. I have encouraged her to get professional help regarding this issue. She is not sure she wants to. We can give her some community resources. I'll have our social welfare clerk call her. She is aware of this. Work paperwork was completed, letter was made. Flu shot. See pulmonology for sleep consult. I do not want to give her any sedatives at this time. We will check some labs. 2. Orders Placed This Encounter Procedures ??? Fluarix Influenza QIV (36+ mos) ??? PULMONOLOGY CONSULT ADULT (AMB) No orders of the defined types were placed in this encounter. Patient Instructions Please call the Pulmonary dept. at [phone] to schedule your appointment. Dr. Rivers at [place] for sleep consult. The patient was discharged ambulatory and in stable condition. *SH~DNS~SOAP documented in this encounter Miscellaneous Notes Letter - Olamide Rodney MD - 03/09/2014 12:00 AM CDT Images from the original note were not included. [facility] [address] [place] [address] Return to Work/School Date: 03/09/2014 To Whom It May Concern Paty Stovall is a patient at [facility] and [facility]. Please excuse her from work, 03/02/2014 through 03/13/2014, due to medical reasons. II expect her to be able to return to work on 03/14/2014. She has been evaluated and treated by myself and Dr. Soha Martinez during this time. Please contact my office with any questions. Sincerely, Olamide Rodney MD K TRIMMER documented in this encounter Plan of Treatment Not on filedocumented as of this encounter Visit Diagnoses Diagnosis Alcohol abuse, unspecified - Primary Need for influenza vaccination Need for prophylactic vaccination and in oculation against influenza Chronic insomnia Insomnia, unspecified documented in this encounter Care Teams Federal Appellate Clerk Relationship Specialty Start Date End Date Olamide Rodney MD PCP - General 09/25/10 01/11/21 [address] [place] [address] documented as of this encounter
--- OUTSIDE RECORDS SUMMARY | 2022-01-29 17:50 | XMS_ITS | Encounter Summary ---
:1960 Author Organization [employer] Address [address], [place] [address] Care Team Providers Name Role Phone Olamide Rodney MD Primary Care Provider Reason for Visit Reason Comments CANCER Encounter Details Date Type Department Care Team Description 03/28/2014 Office Visit Jeremy Aguiar History o f Obstetrics/Gynecolog MD Joni endometrial cancer y [address] (Primary Dx) [address] [place] [address] [place] [address] [phone] Social History Tobacco Use Types Packs/Day Years Used Date Smoking Tobacco: Never Alcohol Use Standard Drinks/Week Comments Yes 0 (1 standard drink = 0.6 oz pure alcoho l) mod Sex Assigned at Date Recorded Not on file documented as of this encounter Last Filed Vital Signs Vital Sign Reading Time Taken Comments Blood Pressure - - Pulse - - Temperature - - Respiratory Rate - - Oxygen Saturation - - Inhaled Oxygen Concentration - - Weight 98.9 kg (218 lb) 03/28/2014 7:10 AM CDT Height - - Body Mass Index 35.19 01/25/2014 1:29 PM CDT documented in this encounter Progress Notes Jeremy Madrid - 03/28/2014 7:20 AM CDT Progress Notes signed by Jeremy Madrid MD at 03/28/14 1005 Author: Jeremy Madrid MD Service: (none) Author Type: Physician Filed: 03/28/14 1005 Note Time: 03/28/14952 Status: Signed [employer] Technician: Jeremy Madrid MD (Physician) NAME: PATY LLAMAS MR#: [id number] CSN: [id number] AUTHENTICATING CLINICIAN: Jeremy Madrid MD CONFIRM #: [id number] LOC: 512 CLINIC PROGRESS NOTE DATE OF VISIT: 03/28/2014 : 1960 Paty Llamas is a 53-year-old female, who presents today for a cancer surveillance visit. She was diagnosed with a stage IA grade 2 endometrial carcinoma. Surgical staging was performed by Dr. Jackson Iqbla on September 18, 2010. She is now in year 4 of her surveillance with pelvic exams recommended every 6months and Pap smears yearly. She had a negative Pap in August of this year. She sees Dr. Olamide Rodney in the department of internal medicine for her general health care needs. Her type 2 diabetes is managed there. She is up to date with bone densitometry, which was performed last month, colonoscopy which was performed in January, and a mammogram which was negative in Augustof this year. The patient voices no complaints at this time. She denies any pelvic pain or discomfort. She denies any vaginal bleeding. She denies any changes in her bowel or bladder habits. She has experienced no recent weight gain or loss. PHYSICAL EXAMINATION: ABDOMEN: Obese, soft, and nontender. Pfannenstiel scar is clean, dry, and intact. There is no appreciable inguinal adenopathy. PELVIC EXAMINATION: The external genitalia appear without lesions. The vagina is negative throughoutits course. The vaginal apex is well supported and intact. There are no masses or lesions at the vaginal apex either visually or on digital examination. Bimanual examination reveals no discernible adnexal structures. No vaginal apical masses or tenderness or nodularity. Rectovaginal examination was deferred as the patient had a negative colonoscopy done 2 months ago. EXTREMITIES: Nontender without edema. ASSESSMENT: History of stage IA grade 2 endometrial cancer, staged in August of 2010. No evidence of recurrence at this time. Return to clinic in 6 months, at which time a Pap smear will be indicated. IRA:DUANE C: CONFIRM #: [id number] documented in this encounter Plan of Treatment Not on filedocumented as of this encounter Visit Diagnoses Diagnosis History of endometrial cancer - Primary Personal history of malignant neoplasm o f other parts of uterus documented in this encounter Care Teams Corrosion Control Engineer Relationship Specialty Start Date End Date Olamide Rodney MD PCP - General 09/25/10 01/11/21 [address] [place] [address] documented as of this encounter
--- OUTSIDE RECORDS SUMMARY | 2022-01-29 17:50 | XMS_ITS | Encounter Summary ---
:1960 Author Organization [employer] Address [address] [place] [address] Care Team Providers Name Role Phone Olamide Rodney MD Primary Care Provider Reason for Referral Specialty Diagnoses / Procedures Referred By Contact Refer red To Contact Olamide Rodney MD [address] [place], [place] [address] Referral ID Status Reason Start Date Expiration Date Visits Requ ested Visits Authorized Reason for Visit Reason Comments Foot Pain Encounter Details Date Type Department Care Team Description 03/28/2015 Initial Consult [facility] Ronal Hinojosa , Achilles tendinitis of right lower extremity (Primary Dx); MedSurg DPM Heel pain, right; [address] [address] [place] [address] [place], [place] [phone] [address] Social History Tobacco Use Types Packs/Day Years Used Date Smoking Tobacco: Never Alcohol Use Standard Drinks/Week Comments Yes 0 (1 standard drink = 0.6 oz pure alcoho l) mod Sex Assigned at Date Recorded Not on file documented as of this encounter Progress Notes Ronal Hinojosa DPM - 03/28/2015 12:41 PM CDT DATE OF VISIT: 03/28/2015 SUBJECTIVE: Paty Stovall is a pleasant 54 y.o. female who presents to clinic today for evaluation of right heel pain. This has been going on since November. She does have pain which is worse in the morning when getting up out of bed or worse when she attempts to go up or down stairs. She has had plantar fasciitis in the past but states that this does not seem to be the same. Her pain is on the back of her heel. She will occasionally have discomfort on her left foot but this is recent and she believes it is caused by walking different. She denies any injury or trauma. She was seen in primary care and x-rays were obtained.. Adverse Drug Reactions: Allergies Allergen Reactions ??? Flovent [Fluticasone] laryngitis [...] Prior to Visit Medication Sig Note ??? albuterol HFA 90 mcg/actuation inhaler Inhale 2 puffs every 6 hours as needed for Wheezing. ??? aspirin 81 mg tablet Take 2 [...] differently: Take 6 mg by mouth nightly.) ??? multivitamin (THERAGRAN) tablet Take 2 tablets by mouth daily (every 24 hours). No facility-administered medications prior to visit. Review of Systems: Negative for fever, rash or shortness of breath. Past Medical History: Past Medical History Diagnosis Date ??? Deep Venous Thrombosis 10/02/2005 ??? Depression NOS 10/02/2005 ??? Factor V Leiden 08/08/2010 ??? Hernia Hiatal 08/08/2010 ??? Lumbar Disc Degeneration 08/08/2010 ??? Diabetes type 2, controlled ([facility]) 04/23/2011 ??? Chronic insomnia 04/23/2011 ??? Actinic keratoses 04/23/2011 ??? Endometrial cancer ([facility]) 04/23/2011 ??? Nondependent alcohol abuse 04/23/2011 ??? Chronic abdominal pain 04/23/2011 ??? Varicose veins 04/23/2011 ??? Superficial thrombophlebitis 04/23/2011 ??? S/P gastric bypass 04/23/2011 ??? Hx of cancer of endometrium 07/26/2011 ??? Unspecified asthma(493.90) ([facility]) 08/19/2011 ??? Macrocytosis without anemia 04/22/2012 ??? Asthma ([facility]) allergic triggers Patient Active Problem List Diagnosis Date Noted ??? 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 Alcoholism, chronic ([facility]) 05/08/2014 ??? Osteopenia 03/07/2014 ??? Macrocytosis without anemia 04/22/2012 Class: Chronic ??? Unspecified asthma(493.90) ([facility]) 08/19/2011 Class: Chronic ??? Hx of cancer of endometrium 07/26/2011 Class: Chronic ??? Diabetes type 2, controlled (C) 04/23/2011 Class: Chronic ??? Chronic insomnia 04/23/2011 Class: Chronic ??? Actinic keratoses 04/23/2011 Class: Chronic ??? Nondependent alcohol abuse 04/23/2011 Class: Chronic ??? Chronic abdominal pain 04/23/2011 Class: Chronic ??? Varicose veins 04/23/2011 Class: Chronic ??? Superficial thrombophlebitis 04/23/2011 Class: Chronic ??? S/P gastric bypass 04/23/2011 Class: Chronic ??? Factor V Leiden 08/08/2010 Class: Chronic ??? Hernia Hiatal 08/08/2010 Class: Chronic ??? Lumbar Disc Degeneration 08/08/2010 Class: Chronic ??? Deep Venous Thrombosis 10/02/2005 Class: Chronic Past Surgical History Procedure Laterality Date ??? Gastric bypass surgery 2002 ??? [place] tooth extraction ??? Eye surgery PRK ??? David and bso endometrial cancer ??? Cholecystectomy ??? Lipectomy 2004 ??? Ovary removal ??? 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 year old female who appears their stated age. Alert and oriented and in no acute distress. Walks without a limp and appears to be in general good health. DP and PT pulses are palpable. Hair growth is present on the digits and capillary filling time is less than two seconds. Sensation is intact. She is intact to sharp and dull discrimination as well as vibratory sensation. There is no weakness with muscle testing of the foot, ankle or lower leg. No pain or restriction with subtalarjoint or ankle joint range of motion. In stance loss of longitudinal arch is evident. There are no paresthesias over the tarsal tunnel or with compression of the dorsal nerves. She does point to the posterior aspect of the right heel is a source of her pain. There is pain at the insertion of the Achilles tendon. There is no pain with [id number] compression of the heel. There are no defects palpated within the Achilles tendon. No pain over the plantar fascia. On her left foot, she does have a prominence noted at the dorsal first metatarsocuneiform joint with slight discomfort. Previous x-rays do show an infracalcaneal and retrocalcaneal exostosis on the right heel. ASSESSMENT: Right heel pain Insertional Achilles tendinitis PLAN: Treatment options were discussed with the patient. I discussed the condition in great detail. I discussed with the patient the difference between this and plantar fasciitis. I did dispense stretching exercises. She can ice the area. I discussed the use of a Tuli's heel cup. I also discussed physical therapy and a referral was generated. I discussed with the patient that she does have some discomfort on the left foot which most likely is compensation. If this continues, I will reevaluate this and most likely go with more of mechanical control. She has tried an [id number] insert in the past but does not use these in her athletic shoes. All questions answered. The patient was discharged ambulatory and in stable condition. Orders Placed This Encounter Procedures ??? PHYSICAL THERAPY CONSULT ADULT/PEDS (AMB) No orders of the defined types were placed in this encounter. (This note was created using voice recognition software and may contain some bulk picker errors) documented in this encounter Plan of Treatment Scheduled Referrals Name Type Priority Associated Diagnoses Order S chedule Foot & Referral Routine Heel pain, right Ordered: 03/28/2015, Ankle/Podiatry Left foot pain Expires: Consult-Adult/Peds documented as of this encounter Visit Diagnoses Diagnosis Achilles tendinitis of right lower extre mity - Primary Achilles bursitis or tendinitis Heel pain, right Left foot pain Pain in limb documented in this encounter Care Teams Nuclear Plant Operator Relationship Specialty Start Date End Date Olamide Rodney MD PCP - General 09/25/10 01/11/21 [address] [place] [address] documented as of this encounter
--- OUTSIDE RECORDS SUMMARY | 2022-01-29 17:50 | XMS_ITS | Encounter Summary ---
:1960 Author Organization [employer] Address [address] [place] [address] Care Team Providers Name Role Phone Olamide Rodney MD Primary Care Provider Reason for Visit Reason Comments HC Phone Visit Encounter Details Date Type Department Care Team Description 05/09/2014 Care Coord Phone [place] [facility] Marylu Gu, [facility] Phone Visit Medicine [facility] [address] [place] [address] [place], [place] [phone] Social History Tobacco Use Types Packs/Day Years Used Date Smoking Tobacco: Never Alcohol Use Standard Drinks/Week Comments Yes 0 (1 standard drink = 0.6 oz pure alcoho l) mod Sex Assigned at Date Recorded Not on file documented as of this encounter Progress Notes Marylu Gu LISW - 05/09/2014 11:09 AM CST Bank Analyst - Phone Call Contact with: Pt Reason for call: CD resources Discussion/actions:Pt was very limited to talk as she states she is in public areas at work so it isdifficult to talk. I had to make most conversation and she would reply with limited answers. Pt wentto detox last week. Pt wants CD counseling, but not any outpt, inpt, or group tx. Just 1:1 counseling. Pt has BCBS and has not called her insurance as her PCP had instructed to find a place to go for this. Shared plan: Bank Analyst called a couple MH agencies to verify they take her insurance and will do the 1:1 counseling. [facility] in [place] were available but can'tget in for a few weeks. Left message for pt. Mailed info on al anon groups to at pt's request as well. Pt verbalized understanding and agreed with plan of care and follow up. SOUND COORDINATOR documented in this encounter Plan of Treatment Not on filedocumented as of this encounter Visit Diagnoses Not on filedocumented in this encounter Care Teams Emergency Department Clinician Relationship Specialty Start Date End Date Olamide Rodney MD PCP - General 09/25/10 01/11/21 [address] [place] [address] documented as of this encounter
--- OUTSIDE RECORDS SUMMARY | 2022-01-29 17:50 | XMS_ITS | Encounter Summary ---
:1960 Author Organization [employer] Address [address] [place] [address] Care Team Providers Name Role Phone Olamide Rodney MD Primary Care Provider Encounter Details Date Type Department Care Team Description 03/10/2014 Lab Visit [facility] Diabetes type 2, controlled; [id number] [place] [address] Social History Tobacco Use Types Packs/Day Years Used Date Smoking Tobacco: Never Alcohol Use Standard Drinks/Week Comments Yes 0 (1 standard drink = 0.6 oz pure alcoho l) mod Sex Assigned at Date Recorded Not on file documented as of this encounter Progress Notes Keri Mcdaniel APRN, CNP - 03/10/2014 11:38 AM CDT Quick Note: Pt will have fasting hepatic function panel, lipase, and RUQ abdominal US on 03/11/14. Leni Simmons LPN - 03/10/2014 11:19 AM CDT Quick Note: please review lab documented in this encounter Miscellaneous Notes Miscellaneous - 08/01/2016 3:57 PM CSTNotes Recorded by PERRY Mora on 03/10/2014 at 11:38 AMPt will have fasting hepatic function panel, lipase, and RUQ abdominal US on 03/11/14.------Notes Recorded by Leni Simmons LPN on 03/10/2014 at 11:19 AMplease review lab [facility]MA PHARMACY TECHNICIAN Miscellaneous - 08/01/2016 3:57 PM CSTNotes Recorded by PERRY Mora on 03/10/2014 at 11:38 AMPt will have fasting hepatic function panel, lipase, and RUQ abdominal US on 03/11/14.------Notes Recorded by Leni Simmons LPN on 03/10/2014 at 11:19 AMplease review lab [facility]MA PHARMACY TECHNICIAN documented in this encounter Plan of Treatment Not on filedocumented as of this encounter Procedures Procedure Name Priority Date/Time Associated Diagnosis Comme nts ALBUMIN/CREAT RATIO Routine 03/10/2014 11:39 Diabetes type 2, Results for this AM CDT controlled (HRC) procedure a re in the results section. HGB A1C Routine 03/10/2014 9:03 AM Diabetes type 2, Resul ts for this CDT controlled (HRC) procedure a re in the results section. ALT (SGPT) Routine 03/10/2014 9:03 AM Elevated transaminase Results for this CDT level procedure are i n the results section. AST Routine 03/10/2014 9:03 AM Elevated transaminase Results for this CDT level procedure are i n the results section. documented in this encounter Results Microalb/Creat Ratio (03/10/2014 11:39 AM CDT) Analysis Performed At Patho logist Time Signature Microalbumin 75.7 mg/L HP CONVERSION Urine U Creat Random 496 mg/dL HP CONVERSION Microalbumin/Crea 15.3 0.0 - 30.0 HP CONVERSI ON tinine Ratio Specimen Anatomical Collection Method Collection Time Receive d Time (Source) Location / / Volume Laterality 03/10/2014 11:39 03/10/2014 3:19 AM CDT PM CDT Olamide Rodney MD LAB_1 Performing Organization Address City/State/ZIP Code Phon e Number HP CONVERSION (ABNORMAL) ALT (SGPT) (03/10/2014 9:03 AM CDT) [facility] Method Time Signature Alanine 132 (H) 4 - 55 HP CONVERSION Aminotransferase U/L Specimen Anatomical Collection Method Collection Time Receive d Time (Source) Location / / Volume Laterality 03/10/2014 9:03 AM 4 9:03 CDT AM CDT Narrative HP CONVERSION - 03/10/2014 10:16 AM CDT Performed at [facility], [address] [place] [address] Transcriptions 08/01/2016 3:57 PM CSTNotes Recorded by PERRY Mora on 03/10/2014 at 11:38 AMPt will have fasting hepatic function panel, lipase, and RUQ abdominal US on 03/11/14.------Notes Recorded by Leni Simmons LPN on 03/10/2014 at 11:19 AM please review lab Olamide Rodney MD LAB_1 Performing Organization Address City/[facility] Code Phon e Number HP CONVERSION (ABNORMAL) AST (03/10/2014 9:03 AM CDT) [facility] Method Time Signature Aspartate 246 (H) 0 - 45 HP CONVERSION Aminotransferase U/L Specimen Anatomical Collection Method Collection Time Receive d Time (Source) Location / / Volume Laterality 03/10/2014 9:03 AM 4 9:03 CDT AM CDT Narrative HP CONVERSION - 03/10/2014 10:16 AM CDT Performed at [facility], [address] [place], [place] [address] Transcriptions 08/01/2016 3:57 PM CSTNotes Recorded by PERRY Mora on 03/10/2014 at 11:38 AMPt will have fasting hepatic function panel, lipase, and RUQ abdominal US on 03/11/14.------Notes Recorded by Leni Simmons LPN on 03/10/2014 at 11:19 AM please review lab Olamide Rodney MD LAB_1 Performing Organization Address City/[facility] Code Phon e Number HP CONVERSION Hgb A1c (03/10/2014 9:03 AM CDT) athologist Signature HGB A1C 5.4 4.0 - 5.6 % HP CONVERSION Specimen Anatomical Collection Method Collection Time Receive d Time (Source) Location / / Volume Laterality 03/10/2014 9:03 AM 4 CDT 12:26 PM CDT Olamide Rodney MD LAB_1 Performing Organization Address City/State/ZIP Code Phon e Number HP CONVERSION documented in this encounter Visit Diagnoses Diagnosis Diabetes type 2, controlled (HRC) Type II or unspecified type diabetes rod litus without mention of complication, not stated as uncontrolled Elevated transaminase level Nonspecific elevation of levels of trans aminase or lactic acid dehydrogenase (LDH) documented in this encounter Care Teams Radio Talk Show Host Relationship Specialty Start Date End Date Olamide Rodney MD PCP - General 09/25/10 01/11/21 [address] [place] [address] documented as of this encounter
--- OUTSIDE RECORDS SUMMARY | 2022-01-29 17:50 | XMS_ITS | Encounter Summary ---
:1960 Author Organization [employer] Address [address], [place] [address] Care Team Providers Name Role Phone Olamide Rodney MD Primary Care Provider Reason for Visit Reason Comments Follow-up Encounter Details Date Type Department Care Team Description 09/28/2014 [facility] History o f Obstetrics/Gynecolog MD Joni endometrial cancer y [address] (Primary Dx) [address] [place] [address] [place] [address] [phone] Social History Tobacco Use Types Packs/Day Years Used Date Smoking Tobacco: Never Alcohol Use Standard Drinks/Week Comments Yes 0 (1 standard drink = 0.6 oz pure alcoho l) mod Sex Assigned at Date Recorded Not on file documented as of this encounter Last Filed Vital Signs Vital Sign Reading Time Taken Comments Blood Pressure 122/79 09/28/2014 7:09 AM CDT Pulse 75 09/28/2014 7:09 AM CDT Temperature - - Respiratory Rate - - Oxygen Saturation - - Inhaled Oxygen Concentration - - Weight 102.1 kg (225 lb) 09/28/2014 7:09 AM CDT Height - - Body Mass Index 37.44 09/12/2014 8:03 AM CDT documented in this encounter Progress Notes Jeremy Madrid J - 09/28/2014 7:26 AM CDT Progress Notes signed by Jeremy Madrid MD at 09/28/141428 Author: Jeremy Madrid MD Service: (none) Author Type: Physician Filed: 09/28/141428 Note Time: 09/28/141358 Status: Signed Maintenance Supervisor 2Nd Shift: Jeremy Madrid MD (Physician) NAME: PATY LLAMAS MR#: [id number] CSN: [id number] AUTHENTICATING CLINICIAN: Jeremy Madrid MD CONFIRM #: [id number] LOC: 512 CLINIC PROGRESS NOTE DATE OF VISIT: 09/28/2014 : 1960 Paty Llamas is a 53-year-old female, who presents today for a cancer surveillance visit. She was diagnosed with a stage IA grade 2 endometrial carcinoma and underwent surgical staging with Dr. Jackson Iqbal on September 18, 2010. Our present surveillance regimen is q.6 months pelvic examinations with Pap smears yearly. She had a negative Pap in August of 2013. She sees Dr. Olamide Rodney in the Department of Internal Medicine, and had a health maintenance physical approximately 2 weeks ago. She is up to date on her general health care surveillance. At this time, the patient voices no gynecologic complaints. She specifically denies any pelvic pain or discomfort. She denies any vaginal discharge or bleeding. She denies any changes in her bowel or bladder habits. She has experienced no recent significant weight loss or weight gain. PHYSICAL EXAMINATION: She is in no apparent distress. Weight 225, blood pressure 122/79, pulse 75. ABDOMEN: Obese, soft, and nontender. Pfannenstiel scar is clean, dry, and intact. I am unable to appreciate any inguinal adenopathy. On pelvic examination, the external genitalia appear without lesions. The vagina is negative throughout its course. The vaginal apex is well-supported and intact. There are no vaginal apical masses or tenderness. A Pap smear of the vaginal apex is obtained and submittedto Pathology. RECTOVAGINAL: Examination was deferred. ASSESSMENT: Normal cancer surveillance visit in this 53-year-old who is now 4 years out from a stage I grade 2 endometrial carcinoma. Return to clinic in 6 months. Pap smear is due in 1 year, at which time she will be 5 years, and then further cancer surveillance visits can be annually. IRA:DUANE C: CONFIRM #: [id number] documented in this encounter Plan of Treatment Not on filedocumented as of this encounter Procedures Procedure Name Priority Date/Time Associated Diagnosis Comme nts ANATOMICAL PATH Routine 09/28/2014 7:27 AM Result s for this LIQUID BASED CDT procedure are i n the results section. PAP SMEAR ORDER Routine 09/28/2014 7:27 AM History of Result s for this CDT endometrial cancer procedure are in the results section. documented in this encounter Results Pap Smear (09/28/2014 7:27 AM CDT) Specimen (Source) Anatomical Collection Method Collection Time Re ceived Time Location / / Volume Laterality 09/28/2014 7:27 AM CDT Narrative HP CONVERSION - 10/03/2014 3:48 PM CDT Performed at [facility], [address] [place] [address] FINAL GYNECOLOGICAL CYTOLOGY REPORT Pathology #: [id number] ?Date Obtained: 09/28/2014 ? Date Received: 09/29/2014 INTERPRETATION/RESULTS: Negative for Intraepithelial Lesion or M alignancy. SPECIMEN ADEQUACY: Satisfactory for Evaluation. ??No endoce rvical cells/transformation zone component present; post hysterectomy Verified on 10/03/2014 ??by EPHRAIM RAMIRES(ASCP) (electronic signature) CLINICAL NOTES: ?Abnormal bleeding: No, LMP: 201 1, Postmenopausal, Hormonal TX: ?No, Hysterectomy, History of CA : endometrial 2011 LIQUID BASED PAP SMEAR SPECIMEN TYPE: ?VAGINAL PAP ONLY PLEASE NOTE: The pap smear is a screening test design ed to aid in the detection of cervical cancer and its pre cursor lesions. It is not a diagnostic procedure and boogie uld not be used as the sole means of detecting cervical cancer. Both false-positive and false-negative report s may occur. ? End of Report Jeremy Madrid MD LAB_1 Performing Organization Address City/[facility] Phon e Number HP CONVERSION Pap Smear Order (09/28/2014 7:27 AM CDT) [facility] Method Time Signature Pap Smear Collected HP CONVERSION Monolayer tracking test Specimen Anatomical Collection Method Collection Time Receive d Time (Source) Location / / Volume Laterality 09/28/2014 7:27 AM 5 8:43 CDT AM CDT Narrative HP CONVERSION - 10/03/2014 3:45 PM CDT Performed at [facility], [facility] [place] [address] Jeremy Madrid MD LAB_1 Performing Organization Address [facility] Phon e Number HP CONVERSION documented in this encounter Visit Diagnoses Diagnosis History of endometrial cancer - Primary Personal history of malignant neoplasm o f other parts of uterus documented in this encounter Care Teams Postpartum Rn Relationship Specialty Start Date End Date Olamide Rodney MD PCP - General 09/25/10 01/11/21 [address] [place], [place] [address] documented as of this encounter
--- OUTSIDE RECORDS SUMMARY | 2022-01-29 17:50 | XMS_ITS | Encounter Summary ---
:1960 Author Organization [employer] Address [address] [address] Care Team Providers Name Role Phone Olamide Rodney MD Primary Care Provider Reason for Visit Reason Comments Follow-up Encounter Details Date Type Department Care Team Description 05/04/2014 Office Visit [place] [facility] Olamide Rodney Alc oholism, chronic Medicine MD [place] (Primary Dx) [address] [phone] [place], [place] [address] (Wo rk) Social History Tobacco Use Types Packs/Day Years Used Date Smoking Tobacco: Never Alcohol Use Standard Drinks/Week Comments Yes 0 (1 standard drink = 0.6 oz pure alcoho l) mod Sex Assigned at Date Recorded Not on file documented as of this encounter Last Filed Vital Signs Vital Sign Reading Time Taken Comments Blood Pressure 118/84 05/04/2014 9:05 AM RADIOISOTOPE TECHNICIAN Pulse 76 05/04/2014 9:05 AM RADIOISOTOPE TECHNICIAN Temperature - - Respiratory Rate - - Oxygen Saturation - - Inhaled Oxygen Concentration - - Weight 98 kg (216 lb) 05/04/2014 9:05 AM RADIOISOTOPE TECHNICIAN Height - - Body Mass Index 34.86 01/25/2014 1:29 PM CDT documented in this encounter Progress Notes Olamide Rodney MD - 05/08/2014 8:49 PM CST SUBJECTIVE: 53 y.o.female follow up detox. She was really struggling again. She had done 6 weeks without any alcoholic beverages. She did not have any cravings. A family member offered her some wine. She took it. She started drinking a lot for 1-1/2 weeks. She did come to urgent care and was sent over to [facility] for the detox. Urgent care contacted me and let me know but this. She was released Friday at noon. She did not need any medications. She is sleeping okay. She declines attending AA and does not want to attend any groups. She is trying to get help from her knee who has had difficulty with addiction. She is mainly talking about trying to avoid her triggers. She has had some difficulty with a few friends. Her is trying to be helpful. He does drink alcoholic beverages. She thinks there may be some alcohol in the house, but it is locked up. She is worried about her . She feels her will need resources. She brought in labs from detox which looked quite good. I reviewed the labs and report. I reviewedthe urgent care report. She can have difficulty sleeping but not currently. She does not feel lasting depression or anxiety. Allergies Allergen Reactions ??? Flovent [Fluticasone] laryngitis [...] hours). No facility-administered medications prior to visit. reports that she has never smoked. She has never used smokeless tobacco. Past Medical History Diagnosis Date ??? Deep Venous Thrombosis 10/02/2005 ??? Depression NOS 10/02/2005 ??? Factor V Leiden 08/08/2010 ??? Hernia Hiatal 08/08/2010 ??? Lumbar Disc Degeneration 08/08/2010 ??? Diabetes type 2, controlled (HCC) 04/23/2011 ??? Chronic insomnia 04/23/2011 ??? Actinic keratoses 04/23/2011 ??? Endometrial cancer (HCC) 04/23/2011 ??? Nondependent alcohol abuse 04/23/2011 ??? Chronic abdominal pain 04/23/2011 ??? Varicose veins 04/23/2011 ??? Superficial thrombophlebitis 04/23/2011 ??? S/P gastric bypass 04/23/2011 ??? Hx of cancer of endometrium 07/26/2011 ??? Unspecified asthma(493.90) ([facility] 08/19/2011 ??? Macrocytosis without anemia 04/22/2012 Past Surgical History Procedure Laterality Date ??? Gastric bypass surgery 2002 ??? [place] tooth extraction ??? Eye surgery PRK ??? David and bso endometrial cancer ??? Cholecystectomy ??? Lipectomy 2004 ??? Ovary removal ??? Hysterectomy Social History: . Employed. OBJECTIVE: Vitals: BP 118/84 Pulse 76 Wt 97.977 kg (216 lb) BMI 34.88 kg/m2 General: Obese white female Eyes: No icterus or injection. Ears: Normal pinnae, canals, and TM's. Throat: Moist mucous membranes without lesions, erythema, [...] Full ROM without limitation, deformity or edema. ASSESSMENT: 1. Encounter Diagnosis Name Primary? Alcoholism, chronic (HCC) Yes PLAN: 1. I am somewhat afraid Paty is being unrealistic and needs to get more help regarding her alcoholism. She is mainly talking about avoiding triggers. She is talking about how her can help her.She is mainly talking about how others can help her avoid triggers. I think she needs to get some personalized type help. I will have her talk to our psychiatric social worker supervisor about any other community resources outside of AA or any inpatient treatment which she declines. I am worried she could get into a relapsing pattern if she does not get more professional treatment. She is going to work with her niece who has a lot of resources also. Support given. I will talk to her he is coming in on Friday to see me. 2. No orders of the defined types were placed in this encounter. No orders of the defined types were placed in this encounter. There are no Patient Instructions on file for this visit. The patient was discharged ambulatory and in stable condition. *SH~DNS~SOAP OISOTOPE TECHNICIAN documented in this encounter Plan of Treatment Not on filedocumented as of this encounter Visit Diagnoses Diagnosis Alcoholism, chronic (HRC) - Primary Other and unspecified alcohol dependence , unspecified drinking behavior documented in this encounter Care Teams Artist Consultant Relationship Specialty Start Date End Date Olamide Rodney MD PCP - General 09/25/10 01/11/21 [address] [place] [address] documented as of this encounter
--- OUTSIDE RECORDS SUMMARY | 2022-01-29 17:50 | XMS_ITS | Encounter Summary ---
:1960 Author Organization [employer] Address [address], [place] [address] Care Team Providers Name Role Phone Olamide Rodney MD Primary Care Provider Reason for Visit Reason Comments Test Request Encounter Details Date Type Department Care Team Description 08/16/2014 Telephone [facility] Malka Rodney MD Test Request Medicine [address] [place] [address] [place] [address] [phone] Social History Tobacco Use Types Packs/Day Years Used Date Smoking Tobacco: Never Alcohol Use Standard Drinks/Week Comments Yes 0 (1 standard drink = 0.6 oz pure alcoho l) mod Sex Assigned at Date Recorded Not on file documented as of this encounter Nursing Notes Eva Hollingsworth - 08/17/2014 1:31 PM CST Called and left vm for pt, advised her fasting labs ordered. Also, left message making sure that it is a px she is requesting in August. Advised her to call back and reschedule if she is having any current issues because a px is just a preventative visit ATTENDANT Olamide Rodney MD - 08/17/2014 1:22 PM CST fasting labs ordered. Patient is scheduled for a physical so hoping that is what visit she is wanting. ATTENDANT Malia Ni RN - 08/16/2014 4:23 PM CST Action requested: Lab Request Additional Info: see below. ATTENDANT Purvi Ritter - 08/16/2014 4:03 PM CST Patient is coming in for a physical 09/12/14 and requests fasting lab work prior to her appointment. Please call when order is in so she can schedule lab work. documented in this encounter Plan of Treatment Not on filedocumented as of this encounter Visit Diagnoses Diagnosis Bariatric surgery status - Primary Other and unspecified postsurgical nonab sorption Other symptoms concerning nutrition, met abolism, and development Diabetes type 2, controlled (HRC) Type II or unspecified type diabetes rod litus without mention of complication, not stated as uncontrolled Nondependent alcohol abuse Alcohol abuse, unspecified Alcoholism, chronic (HRC) Other and unspecified alcohol dependence , unspecified drinking behavior documented in this encounter Care Teams Magazine Journalist Relationship Specialty Start Date End Date Olamide Rodney MD PCP - General 09/25/10 01/11/21 [address] [place] [address] documented as of this encounter
--- OUTSIDE RECORDS SUMMARY | 2022-01-29 17:50 | XMS_ITS | Encounter Summary ---
:1960 Author Organization [employer] Address [address] [place] [address] Care Team Providers Name Role Phone Olamide Rodney MD Primary Care Provider Reason for Visit Reason Comments RESULTS, TEST Encounter Details Date Type Department Care Team Description 03/10/2014 Telephone [facility] Keri Mcdaniel APRN , RESULTS, TEST Medicine [facility] [address] [facility] [address] [place] [address] [place] [address] [phone] (Wo rk) Social History Tobacco Use Types Packs/Day Years Used Date Smoking Tobacco: Never Alcohol Use Standard Drinks/Week Comments Yes 0 (1 standard drink = 0.6 oz pure alcoho l) mod Sex Assigned at Date Recorded Not on file documented as of this encounter Nursing Notes Olamide Rodney MD - 03/14/2014 1:34 PM CDT I called her. Reviewed situation. Will repeat labs later this week. If improving then can skip US. Patient is alcohol free and feeling better. Tatum Andujar LPN - 03/10/2014 11:56 AM CDT Spoke with pt and read her Keri's message verbatim. Pt declines to schedule labs or US until Dr. Rodney has a chance to review her lab results. Informed pt that Dr. Rodney will be out until Friday. Pt states that is fine, pt can be reached at number in chart. Will forward to Dr. Rodney to review. Keri Mcdaniel APRN, CNP - 03/10/2014 11:37 AM CDT I spoke with the patient regarding her elevated liver function tests. She is open to having a fasting hepatic function panel, lipase, and RUQ abdominal US. Shelia, can you please help her schedule this? documented in this encounter Plan of Treatment Not on filedocumented as of this encounter Visit Diagnoses Diagnosis Elevated liver function tests - Primary Other abnormal blood chemistry documented in this encounter Care Teams Veterinary Science Teacher Relationship Specialty Start Date End Date Olamide Rodney MD PCP - General 09/25/10 01/11/21 [address] [place], [place] [address] documented as of this encounter
--- OUTSIDE RECORDS SUMMARY | 2022-01-29 17:50 | XMS_ITS | Encounter Summary ---
:1960 Author Organization [employer] Address [address] [place] [address] Care Team Providers Name Role Phone Olamide Rodney MD Primary Care Provider Encounter Details Date Type Department Care Team Description 10/24/2014 Imaging [facility] Routine physical examination [id number] [place], [place] [id number] Social History Tobacco Use Types Packs/Day Years [...] Associated Diagnosis Comme nts MM MAMMOGRAM Routine 10/24/2014 7:43 AM Routine physical Resul ts for this SCREENING BILAT W CDT examination procedure are in CAD the results section. documented in this encounter Results MM Mammogram Screening Bilat W CAD (10/24/2014 7:43 AM CDT) Anatomical Region Laterality Modality Breast Bilateral Mammography Specimen (Source) Anatomical Location Collection Method / Collectio n Time Received Time / Laterality Volume Impressions 10/24/2014 8:32 AM CDT : BI-RADS 1 Negative (overall) Follow Up Mammogram in 1 year - Bilatera l The results and recommendations of this examination will be communicated to the patient by the [facility] and we will attempt to schedule any recommended imaging follow up with the patient. Narrative 10/24/2014 8:32 AM CDT Compared to: 10/01/2013 MM Mammogram Screening Bilateral W Cad, 09/22/2012 Mammogram, 09/19/2011 MM MAMMOGRAM DIGIT AL SCRN W CAD Bilateral Breast Findings: The breasts are almost entirely fatty. No significant mass, calcifications or o ther abnormalities are seen in either breast. Procedure Note Preeti Cooper MD - 02/15/2016Formatt ing of this note might be different from the original. Compared to: 10/01/2013 MM Mammogram Scr eening Bilateral W Cad, 09/22/2012 Mammogram, 09/19/2011 MM MAMMOGRAM DIGIT AL SCRN W CAD Bilateral Breast Findings: The breasts are almost entirely fatty. No significant mass, calcifications or o ther abnormalities are seen in either breast. IMPRESSION : BI-RADS 1 Negative (overall) Follow Up Mammogram in 1 year - Reggie jo The results and recommendations of this examination will be communicated to the patient by the [facility] and we will attempt to schedule any recommended imaging follow up with the patient. Olamide Rodney MD RAD SHERYL documented in this encounter Visit Diagnoses Diagnosis Routine physical examination Routine general medical examination at a health care facility documented in this encounter Care Teams Leasing Representative Relationship Specialty Start Date End Date Olamide Rodney MD PCP - General 09/25/10 01/11/21 [address] [place] [address] documented as of this encounter
--- OUTSIDE RECORDS SUMMARY | 2022-01-29 17:50 | XMS_ITS | Encounter Summary ---
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 [place], [place] (Primary Dx) [place] [id number] [phone] Social History Tobacco Use Types Packs/Day Years Used Date Smoking Tobacco: Never Alcohol Use Standard Drinks/Week Comments Yes 0 (1 standard drink = 0.6 oz pure alcoho l) mod Sex Assigned at Date Recorded Not on file documented as of this encounter Plan of Treatment Not on filedocumented as of this encounter Visit Diagnoses Diagnosis Varicose veins of lower extremities with other complications - Primary documented in this encounter Care Teams Rink Rat Relationship Specialty Start Date End Date Olamide Rodney MD PCP - General 09/25/10 01/11/21 [address] [place], [place] [phone] documented as of this encounter
--- OUTSIDE RECORDS SUMMARY | 2022-01-29 17:50 | XMS_ITS | Encounter Summary ---
:1960 Author Organization [employer] Address [address] [place] [address] Care Team Providers Name Role Phone Olamide Rodney MD Primary Care Provider Encounter Details Date Type Department Care Team Description 09/02/2014 Lab Visit [facility] Bariatric surgery status; [id number] Other symptoms concerning nu trition, metabolism, and development; [place] [address] Other and unspecified postsu rgical nonabsorption; [phone] Diabetes type 2 , controlled; Alcoholism, chr onic Social History Tobacco Use Types Packs/Day Years Used Date Smoking Tobacco: Never Alcohol Use Standard Drinks/Week Comments Yes 0 (1 standard drink = 0.6 oz pure alcoho l) mod Sex Assigned at Date Recorded Not on file documented as of this encounter Plan of Treatment Not on filedocumented as of this encounter Procedures Procedure Name Priority Date/Time Associated Diagnosis Comme nts IRON BINDING Routine 09/02/2014 11:02 Other and unspecified Re sults for this CAPACITY (INCL AM CDT postsurgical procedure are in IRON) nonabsorption the results section. ZINC, SERUM Routine 09/02/2014 11:02 Bariatric surgery Result s for this AM CDT status procedure are i n the results section. VITAMIN B6 (8HR Routine 09/02/2014 11:02 Bariatric surgery Res ults for this FAST RECOMMENDED) AM CDT status procedure are in the results section. VITAMIN B1, BLOOD Routine 09/02/2014 11:02 Bariatric surgery R esults for this AM CDT status procedure are i n the results section. VITAMIN A Routine 09/02/2014 11:02 Bariatric surgery Result s for this AM CDT status procedure are i n the results section. COPPER, SERUM Routine 09/02/2014 11:02 Bariatric surgery Resul ts for this AM CDT status procedure are i n the results section. TSH AND FREE T4 Routine 09/02/2014 11:02 Diabetes type 2, Resu lts for this (FRT4 IF TSH AM CDT controlled (HRC) procedure a re in ABNORM) the results section. LIPID PANEL AND Routine 09/02/2014 11:02 Other and unspecified Results for this DIRECT LDL(IF AM CDT postsurgical procedure are in NEEDED) nonabsorption the results section. VITAMIN D Routine 09/02/2014 11:02 Bariatric surgery Result s for this 25-HYDROXY, TOTAL AM CDT status procedure are in the results section. INTACT PTH Routine 09/02/2014 11:02 Bariatric surgery Result s for this AM CDT status procedure are i n the results section. BASIC METABOLIC Routine 09/02/2014 11:02 Bariatric surgery Res ults for this PANEL AM CDT status procedure are in Other symptoms the results concerning nutrition, sectio n. metabolism, and development PREALBUMIN Routine 09/02/2014 11:02 Bariatric surgery Result s for this AM CDT status procedure are i n the results section. COMPLETE BLOOD Routine 09/02/2014 11:02 Other and unspecified Results for this COUNT-NO DIFF AM CDT postsurgical procedure are in nonabsorption the results section. ALBUMIN/CREAT RATIO Routine 09/02/2014 11:02 Diabetes type 2, Results for this AM CDT controlled (HRC) procedure a re in the results section. FERRITIN Routine 09/02/2014 11:02 Other and unspecified Re sults for this AM CDT postsurgical procedure are i n nonabsorption the results section. HGB A1C Routine 09/02/2014 11:02 Other and unspecified Re sults for this AM CDT postsurgical procedure are i n nonabsorption the results section. FOLATE ONLY (4HR Routine 09/02/2014 11:02 Bariatric surgery Re sults for this FAST RECOMMENDED) AM CDT status procedure are in the results section. VITAMIN B12 ONLY Routine 09/02/2014 11:02 Bariatric surgery Re sults for this AM CDT status procedure are i n the results section. ALT (SGPT) Routine 09/02/2014 11:02 Alcoholism, chronic Resu lts for this AM CDT (HRC) procedure are i n the results section. AST Routine 09/02/2014 11:02 Alcoholism, chronic Resu lts for this AM CDT (HRC) procedure are i n the results section. documented in this encounter Results AST (09/02/2014 11:02 AM CDT) [facility] gist Method Time Signature Aspartate 30 0 - 45 HP CONVERSION Aminotransferase U/L Specimen Anatomical Collection Method Collection Time Receive d Time (Source) Location / / Volume Laterality 09/02/2014 11:02 09/02/2014 AM CDT 11:01 AM CDT Narrative HP CONVERSION - 09/02/2014 11:41 AM CDT Performed at [facility], [address] [place] [address] Olamide Rodney MD LAB_1 Performing Organization Address [facility] Phon e Number HP CONVERSION ALT (SGPT) (09/02/2014 11:02 AM CDT) [facility] Method Time Signature Alanine 22 4 - 55 HP CONVERSION Aminotransferase U/L Specimen Anatomical Collection Method Collection Time Receive d Time (Source) Location / / Volume Laterality 09/02/2014 11:02 09/02/2014 AM CDT 11:01 AM CDT Narrative HP CONVERSION - 09/02/2014 11:41 AM CDT Performed at [facility], [address] [place] [address] Olamide Rodney MD LAB_1 Performing Organization Address City/[facility] Phon e Number HP CONVERSION TSH AND FREE T4 (FRT4 IF TSH ABNORM) (09/02/2014 11:02 AM CDT) P athologist Signature Thyroid 2.92 0.20 - HP CONVERSION Stimulating 4.50 mIU/L Hormone Specimen Anatomical Collection Method Collection Time Receive d Time (Source) Location / / Volume Laterality 09/02/2014 11:02 09/02/2014 3:36 AM CDT PM CDT Narrative HP CONVERSION - 09/02/2014 4:33 PM CDT Performed at [place] [id number] Olamide Rodney MD LAB_1 Performing Organization Address City/[facility] Code Phon e Number HP CONVERSION Microalb/Creat Ratio (09/02/2014 11:02 AM CDT) Analysis Performed At Patho logist Time Signature Microalbumin <6.0 mg/L HP CONVERSION Urine U Creat Random 31 mg/dL HP CONVERSION Microalbumin/Crea <10.0 0.0 - 30.0 HP CONVERSI ON tinine Ratio Specimen Anatomical Collection Method Collection Time Receive d Time (Source) Location / / Volume Laterality 09/02/2014 11:02 09/02/2014 AM CDT 12:40 PM CDT Narrative HP CONVERSION - 09/02/2014 1:59 PM [place] [address] Olamide Rodney MD LAB_1 Performing Organization Address [facility] Phon e Number HP CONVERSION ZINC, SERUM (09/02/2014 11:02 AM CDT) athologist Signature Zinc, Serum 64 60 - 120 HP CONVERSION ug/dL Comment: INTERPRETIVE INFORMATION: Zinc, Serum or Plasma Circulating zinc concentrations are depe ndent on albumin status and are depressed with malnutriti on. Zinc may also be lowered with infection, inflammation, stress, oral contraceptives, and . Zinc may be elevated with zinc supplementation or fasting. Elevate d zinc concentrations may interfere with copper absorption. Test developed and characteristics deter mined by [email or web address]. See Compliance Statement B : [email or web address] Specimen Anatomical Collection Method Collection Time Receive d Time (Source) Location / / Volume Laterality 09/02/2014 11:02 09/02/2014 AM CDT 12:19 PM CDT Narrative HP CONVERSION - 09/04/2014 12:39 AM CDT Performed at [email or web address] [address] [place] [address] Olamide Rodney MD LAB_1 Performing Organization Address [facility] Code Phon e Number HP CONVERSION Vitamin D 25-Hydroxy, Total (09/02/2014 11:02 AM CDT) P athologist Signature Vitamin D 25 Oh 23 20 - 80 HP CONVERSION ng/mL Comment: Deficiency = <20 Adequate ??= 20-29 Preferred = 30-50 Uncertain safety = 51-80 High = >80 Specimen Anatomical Collection Method Collection Time Receive d Time (Source) Location / / Volume Laterality 09/02/2014 11:02 09/02/2014 3:36 AM CDT PM CDT Narrative HP CONVERSION - 09/03/2014 1:23 PM CDT Performed at [facility], [facility] [place] [address] Olamide Rodney MD LAB_1 Performing Organization Address City/[facility] Phon e Number HP CONVERSION VITAMIN B6 (09/02/2014 11:02 AM CDT) athologist Signature Vitamin B6 64.7 20.0 - HP CONVERSION 125.0 nmol/L Comment: INTERPRETIVE INFORMATION: Vitamin B6 (Py ridoxal 5-Phosphate) Pyridoxal 5'-phosphate measured in a spe cimen collected following an 8-hour or overnight fast ac curately indicates vitamin B6 nutritional status. Non-fasti ng specimen concentration reflects recent vitamin in take. Test developed and characteristics deter mined by [email or web address]. See Compliance Statement B : [employer]/Data [employer]metry Specimen Anatomical Collection Method Collection Time Receive d Time (Source) Location / / Volume Laterality 09/02/2014 11:02 09/02/2014 6:59 AM CDT PM CDT Narrative HP CONVERSION - 09/06/2014 11:15 PM CDT Performed at [email or web address] [address] [place] [address] Olamide Rodney MD LAB_1 Performing Organization Address City/[facility] Phon e Number HP CONVERSION VITAMIN B1 (09/02/2014 11:02 AM CDT) athologist Signature Vitamin B1 141 70 - 180 HP CONVERSION nmol/L Comment: INTERPRETIVE INFORMATION: Vitamin B1, Wh ole Blood This assay measures the concentration of thiamine diphosphate (TDP), the primary active fo rm of vitamin B1. Approximately 90 percent of vitamin B1 p resent in whole blood is TDP. Thiamine and thiamine mono phosphate, which comprise the remaining 10 percent, are n ot measured. Test developed and characteristics deter mined by [email or web address]. See Compliance Statement B : [employer]/Data [employer]metry Specimen Anatomical Collection Method Collection Time Receive d Time (Source) Location / / Volume Laterality 09/02/2014 11:02 09/02/2014 7:00 AM CDT PM CDT Narrative HP CONVERSION - 09/07/2014 7:02 AM CDT Performed at [email or web address] [address] [place] [address] Olamide Rodney MD LAB_1 Performing Organization Address City/[facility] Phon e Number HP CONVERSION VITAMIN A (09/02/2014 11:02 AM CDT) athologist Signature Retinol 0.63 0.30 - HP CONVERSION (Vitamin A) 1.20 mg/L Retinyl 0.04 0.00 - HP CONVERSION Palminate 0.10 mg/L Vitamin A Normal HP CONVERSION Interp Comment: Test developed and characteristics deter mined by [email or web address]. See Compliance Statement B : [email or web address] Specimen Anatomical Collection Method Collection Time Receive d Time (Source) Location / / Volume Laterality 09/02/2014 11:02 09/02/2014 7:00 AM CDT PM CDT Narrative HP CONVERSION - 09/06/2014 10:21 AM CDT Performed at [email or web address] [address] [place] [address] [place] [address] Olamide Rodney MD LAB_1 Performing Organization Address [facility] Phon e Number HP CONVERSION (ABNORMAL) Intact PTH (09/02/2014 11:02 AM CDT) athologist Signature PTH 106 (H) 10 - 100 HP CONVERSION pg/mL Specimen Anatomical Collection Method Collection Time Receive d Time (Source) Location / / Volume Laterality 09/02/2014 11:02 09/02/2014 7:00 AM CDT PM CDT Narrative HP CONVERSION - 09/02/2014 8:16 PM [place] [address] Olamide Rodney MD LAB_1 Performing Organization Address [facility] Code Phon e Number HP CONVERSION (ABNORMAL) IRON BINDING CAPACITY (INCL IRON) (09/02/2014 11:02 AM CDT) athologist Signature Iron, Serum 69 37 - 170 HP CONVERSION ug/dL Iron Binding 398 250 - 450 HP CONVERSION Capacity ug/dL Iron Saturation 17 (L) 20 - 55 % HP CONVERSION Specimen Anatomical Collection Method Collection Time Receive d Time (Source) Location / / Volume Laterality 09/02/2014 11:02 09/02/2014 3:36 AM CDT PM CDT Narrative HP CONVERSION - 09/02/2014 4:33 PM CDT Performed at [facility], [address] [place] [address] Olamide Rodney MD LAB_1 Performing Organization Address City/[facility] Phon e Number HP CONVERSION (ABNORMAL) Hgb A1c (09/02/2014 11:02 AM CDT) athologist Signature HGB A1C 5.8 (H) 4.0 - 5.6 % HP CONVERSION Specimen Anatomical Collection Method Collection Time Receive d Time (Source) Location / / Volume Laterality 09/02/2014 11:02 09/02/2014 AM CDT 12:42 PM CDT Narrative HP CONVERSION - 09/02/2014 2:29 PM [place] [address] Olamide Rodney MD LAB_1 Performing Organization Address [facility] Phon e Number HP CONVERSION Folate Only (4Hr Fast Recommended) (09/02/2014 11:02 AM CDT) athologist Signature Serum Folate >24.0 >5.9 ng/mL HP CONVERSION Specimen Anatomical Collection Method Collection Time Receive d Time (Source) Location / / Volume Laterality 09/02/2014 11:02 09/02/2014 3:36 AM CDT PM CDT Narrative HP CONVERSION - 09/02/2014 4:33 PM CDT Performed at [facility], [address] [place] [address] Olamide Rodney MD LAB_1 Performing Organization Address [facility] Phon e Number HP CONVERSION B12 Only (09/02/2014 11:02 AM CDT) athologist Signature Vitamin B12 605 211 911 HP CONVERSION pg/dL Specimen Anatomical Collection Method Collection Time Receive d Time (Source) Location / / Volume Laterality 09/02/2014 11:02 09/02/2014 3:36 AM CDT PM CDT Narrative HP CONVERSION - 09/02/2014 4:33 PM CDT Performed at [facility], [facility] [place] [address] Olamide Rodney MD LAB_1 Performing Organization Address [facility] Phon e Number HP CONVERSION Ferritin (09/02/2014 11:02 AM CDT) athologist Signature Ferritin Serum 14 10 - 291 HP CONVERSION ng/mL Specimen Anatomical Collection Method Collection Time Receive d Time (Source) Location / / Volume Laterality 09/02/2014 11:02 09/02/2014 3:36 AM CDT PM CDT Narrative HP CONVERSION - 09/02/2014 4:33 PM CDT Performed at [facility], [facility] [place] [address] Olamide Rodney MD LAB_1 Performing Organization Address [facility] Phon e Number HP CONVERSION COPPER, SERUM (09/02/2014 11:02 AM CDT) athologist Signature Copper, Serum 124 80 - 155 HP CONVERSION ug/dL Comment: Serum copper may be elevated with infect ion, inflammation, stress, and copper supplementation. In f emales, elevated copper may also be caused by oral contra ceptives and (concentrations may be elevate d up to 3 times normal during the third trimester). Seru m copper may be reduced by use of corticosteroids and zi nc and by malnutrition or malabsorption. REFERENCE INTERVAL: Copper, Serum or Juwan sma Access complete set of age- and/or gende r-specific reference intervals for this test in the [facility] Test Directory ([employer]). Test developed and characteristics deter mined by [email or web address]. See Compliance Statement B : [email or web address] Specimen Anatomical Collection Method Collection Time Receive d Time (Source) Location / / Volume Laterality 09/02/2014 11:02 09/02/2014 AM CDT 12:19 PM CDT Narrative HP CONVERSION - 09/04/2014 12:39 AM CDT Performed at [email or web address] [address] [place] [address] Olamide Rodney MD LAB_1 Performing Organization Address City/[facility] Phon e Number HP CONVERSION Complete Blood Count-No Diff (09/02/2014 11:02 AM CDT) athologist Signature White Blood Cell 5.9 3.8 - 11.0 HP CONVERSIO N Count k/cmm Red Blood Cell 4.18 3.70 - HP CONVERSION Count 5.20 m/cmm Hemoglobin 13.4 11.8 - HP CONVERSION 15.5 g/dL Hematocrit 39.6 35.0 - HP CONVERSION 46.0 % Mean Corpuscular 94.7 80.0 - HP CONVERSION Volume 100.0 fL RDW 14.0 11.0 - HP CONVERSION 15.0 % Platelet Count 211 140 - 450 HP CONVERSION k/cmm Specimen Anatomical Collection Method Collection Time Receive d Time (Source) Location / / Volume Laterality 09/02/2014 11:02 09/02/2014 AM CDT 11:01 AM CDT Narrative HP CONVERSION - 09/02/2014 11:10 AM CDT Performed at [facility], [address] [place] [address] Olamide Rodney MD LAB_1 Performing Organization Address City/[facility] Phon e Number HP CONVERSION Lipid Panel and Direct LDL(If Needed) (09/02/2014 11:02 AM CDT) [facility] gist Method Time Signature Cholesterol 173 0 - 200 HP CONVERSION mg/dL Triglycerides 111 0 - 149 HP CONVERSION mg/dL HDL Cholesterol 72 >39 mg/dL HP CONVERSION Cholesterol/HDL 2.4 HP CONVERSION Ratio Screen LDL Calculated 79 19 - 130 HP CONVERSION mg/dL Length Of Fast 12.0 HP CONVERSION Specimen Anatomical Collection Method Collection Time Receive d Time (Source) Location / / Volume Laterality 09/02/2014 11:02 09/02/2014 AM CDT 11:01 AM CDT Narrative HP CONVERSION - 09/02/2014 11:41 [place] [address] Olamide Rodney MD LAB_1 Performing Organization Address [facility] Phon e Number HP CONVERSION Prealbumin (09/02/2014 11:02 AM CDT) athologist Signature Prealbumin 24.2 20.0 - 40.0 HP CONVERSION mg/dL Specimen Anatomical Collection Method Collection Time Receive d Time (Source) Location / / Volume Laterality 09/02/2014 11:02 09/02/2014 3:36 AM CDT PM CDT Narrative HP CONVERSION - 09/02/2014 4:33 PM CDT Performed at [place] [id number] Olamide Rodney MD LAB_1 Performing Organization Address City/[facility] Phon e Number HP CONVERSION (ABNORMAL) Basic Metabolic Panel (09/02/2014 11:02 AM CDT) Analysis Performed At Patho logist Time Signature Creatinine Serum 0.8 0.4 - 1.3 HP CONVERSION mg/dL Lab Glucose 98 60 - 100 HP CONVERSION mg/dL Bicarbonate 34 (H) 23 - 33 HP CONVERSION mmol/L Chloride 102 98 - 110 HP CONVERSION mEq/L Potassium 3.9 3.5 - 5.2 HP CONVERSION mEq/L Sodium 141 137 - 147 HP CONVERSION mEq/L Blood Urea 12 5 - 26 HP CONVERSION Nitrogen mg/dL Calcium 9.7 8.5 - 10.5 HP CONVERSION mg/dL Est GFR >60 >60 HP CONVERSION [...] Time (Source) Location / / Volume Laterality 09/02/2014 11:02 09/02/2014 AM CDT 11:01 AM CDT Narrative HP CONVERSION - 09/02/2014 11:41 AM CDT Performed at [facility], [address] [place] [address] Olamide Rodney MD LAB_1 Performing Organization Address City/[facility] Phon e Number HP CONVERSION documented in this encounter Visit Diagnoses Diagnosis Bariatric surgery status Other symptoms concerning nutrition, met abolism, and development Other and unspecified postsurgical nonab sorption Diabetes type 2, controlled (HRC) Type II or unspecified type diabetes rod litus without mention of complication, not stated as uncontrolled Alcoholism, chronic (HRC) Other and unspecified alcohol dependence , unspecified drinking behavior documented in this encounter Care Teams Assistant Men'S Lacrosse Coach Relationship Specialty Start Date End Date Olamide Rodney MD PCP - General 09/25/10 01/11/21 [address] [place] [address] documented as of this encounter
--- OUTSIDE RECORDS SUMMARY | 2022-01-29 17:50 | XMS_ITS | Encounter Summary ---
:1960 [facility] Address [address] [place] [address] Care Team Providers Name Role Phone Olamide Rodney MD Primary Care Provider Reason for Visit Reason Comments Skin Check Encounter Details Date Type Department Care Team Description 04/18/2014 Office Visit Sravanthi Munir Drew (Primary Dx); Dermatology Elizabet Antoine PA-C Benign neoplasm of skin of other and uns pecified parts of face [address] [address] [address] [address] [place] [address] Social History Tobacco Use Types Packs/Day Years Used Date Smoking Tobacco: Never Alcohol Use Standard Drinks/Week Comments Yes 0 (1 standard drink = 0.6 oz pure alcoho l) mod Sex Assigned at Date Recorded Not on file documented as of this encounter Progress Notes Elizabet Drew - 04/18/2014 12:45 PM CDT Progress Notes signed by Elizabet Drew PA-C at 04/18/14 2110 Author: Elizabet Drew PA-C Service: (none) Author Type: Physician Portable Track Crew Chief Filed: 04/18/14 4131 Note Time: 04/18/14 1231 Status: Signed Tool Repair Technician: Elizabet Drew PA-C (Physician Portable Track Crew Chief) NAME: PATY LLAMAS MR#: [id number] CSN: [id number] AUTHENTICATING CLINICIAN: Elizabet Drew PA-C CONFIRM #: [id number] LOC: 527 CLINIC PROGRESS NOTE DATE OF VISIT: 04/18/2014 : 1960 Paty is a 53-year-old female, who presents for evaluation of lesions along the face and the scalp. She states that she finds a few areas along the scalp to pick at it but they do resolve, and come andgo over time. She denies any specific concerns on her face and feels that the previously treated actinic keratoses have resolved. PAST SKIN HISTORY: Significant for actinic keratoses along the right temporal hairline, treated with cryotherapy at theprevious visit on May 27, 2013. She also had an irritated seborrheic keratosis treated at that time as well. Her history is also significant for hypertrichosis along the chin, which she has had laser treatment in the past. Most recently, she does have a few touch up treatments with Dr. Lopez and is pleased with results. She has also had an actinic keratosis along the right upper cheek, treated with 3 episodes of cryotherapy and did not fully resolve and therefore was treated with cautery by Dr. Brink previously in 2010. FAMILY HISTORY: Significant for mother having unknown type of skin cancer. CURRENT MEDICATIONS: Reviewed and updated in Epic. ALLERGIES: Reviewed and updated in Epic. EXAMINATION: Patient is pleasant, alert, and oriented. Defers full-body exam today. On examination of the scalp, face, neck, and left upper back, she does have a few crusted perifollicular papules along the vertex of the scalp, appearing to be recently irritated hair follicles. No signs of actinic keratoses appreciated. Along the right lutheran and right superior forehead, she has 2 slightly hypopigmented macules consistent with previous cryotherapy sites that are smooth and no recurrence of actinic keratoses or seborrheic keratoses appreciated. Along theleft inferior cheek and right lateral cheek, she has 3 skin colored, soft papules consistent with intradermal nevi. On examination of the left upper back she has a pink, flat topped, raised papule consistent with a benign-appearing compound nevus. Remainder of skin exam is unremarkable. ASSESSMENT AND PLAN: 1. Intradermal nevi along the face reassured. 2. Appearance of irritated hair follicles. Patient admits that she does feel that the picking initiates the irritation and will try to keep her nails short, even try using a very small amount of Vaseline or olive oil along this area of her scalp in the evenings, when she has a tendency to pick, to keep the area slippery and avoid being able to manipulate the skin. 3. Benign-appearing compound nevus along the left upper back; continue to observe. Recommended follow up in 1 year or sooner should she have any new concerns. SMC:MEDQ C: CONFIRM #: [id number] documented in this encounter Plan of Treatment Not on filedocumented as of this encounter Visit Diagnoses Diagnosis Hypopigmentation - Primary Dyschromia, unspecified Benign neoplasm of skin of other and uns pecified parts of face documented in this encounter Care Teams Crop Scout Relationship Specialty Start Date End Date Olamide Rodney MD PCP - General 09/25/10 01/11/21 [address] [place] [address] documented as of this encounter
--- OUTSIDE RECORDS SUMMARY | 2022-01-29 17:50 | XMS_ITS | Encounter Summary ---
:1960 Author Organization [facility] Address [address] [place] [address] Care Team Providers Name Role Phone Olamide Rodney MD Primary Care Provider Reason for Visit Reason Comments UPDATE Encounter Details Date Type Department Care Team Description 04/29/2014 Telephone [place] [facility] Malka Rodney MD UPDATE Medicine [address] [place] [address] [place] [address] [phone] Social History Tobacco Use Types Packs/Day Years Used Date Smoking Tobacco: Never Alcohol Use Standard Drinks/Week Comments Yes 0 (1 standard drink = 0.6 oz pure alcoho l) mod Sex Assigned at Date Recorded Not on file documented as of this encounter Nursing Notes Olamide Rodney MD - 04/30/2014 11:10 AM CST noted, I was aware as our also called me Idalia Carrillo RN - 04/29/2014 12:49 PM CST Will route as FYI. Paty Diaz - 04/29/2014 12:44 PM CST is calling to update Dr Rodney on pt's recent admittance to [facility]. He stated pt wanted him to inform Dr Rodney of this, and she is scheduled to see Dr Rodney 05/04 [employer] documented in this encounter Plan of Treatment Not on filedocumented as of this encounter Visit Diagnoses Not on filedocumented in this encounter Care Teams Lug Breaker And Wire Puller Relationship Specialty Start Date End Date Olamide Rodney MD PCP - General 09/25/10 01/11/21 [address] [place] [address] documented as of this encounter
--- OUTSIDE RECORDS SUMMARY | 2022-01-29 17:50 | XMS_ITS | Encounter Summary ---
:1960 Author Organization [employer] Address [address] [address] Care Team Providers Name Role Phone Olamide Rodney MD Primary Care Provider Reason for Visit Reason Comments Medication Questions Encounter Details Date Type Department Care Team Description 09/12/2014 Telephone [place] [facility] Olamide Rodney, Medication Questions Medicine [address] [address] [facility] [phone] [place] [address] (Wo rk) Social History Tobacco Use Types Packs/Day Years Used Date Smoking Tobacco: Never Alcohol Use Standard Drinks/Week Comments Yes 0 (1 standard drink = 0.6 oz pure alcoho l) mod Sex Assigned at Date Recorded Not on file documented as of this encounter Nursing Notes Eva Hollingsworth - 09/12/2014 12:18 PM CDT Called and spoke to pt, informed her of Dr Torres message below Olamide Rodney MD - 09/12/2014 11:38 AM CDT Noted, will rx the regular albuterol instead. Rx sent. please let Paty know about this Charlotte Lincoln MA - 09/12/2014 10:58 AM CDT Pharmacy sent fax stating that the medication maxair is not available, it was discontinued by manufacture, please change medication. Please advise. documented in this encounter Plan of Treatment Not on filedocumented as of this encounter Visit Diagnoses Not on filedocumented in this encounter Care Teams Auto Tech Relationship Specialty Start Date End Date Olamide Rodney MD PCP - General 09/25/10 01/11/21 [address] [place] [address] documented as of this encounter
--- OUTSIDE RECORDS SUMMARY | 2022-01-29 17:50 | XMS_ITS | Encounter Summary ---
:1960 Author Organization [email or web address] Address [address] [place] [address] Care Team Providers Name Role Phone Olamide Rodney MD Primary Care Provider Encounter Details Date Type Department Care Team Description 03/16/2014 Lab Visit [facility] Elevated liver function [address] [facility] [place] [address] Social History Tobacco Use Types Packs/Day Years Used Date Smoking Tobacco: Never Alcohol Use Standard Drinks/Week Comments Yes 0 (1 standard drink = 0.6 oz pure alcoho l) mod Sex Assigned at Date Recorded Not on file documented as of this encounter Plan of Treatment Not on filedocumented as of this encounter Procedures Procedure Name Priority Date/Time Associated Diagnosis Comme nts LIVER PANEL(HEPATIC Routine 03/16/2014 7:32 AM Elevated liver Results for this FUNCTION PANEL) CDT function tests procedure are in the results section. LIPASE Routine 03/16/2014 7:32 AM Elevated liver Results for this CDT function tests procedure are in the results section. documented in this encounter Results Lipase (03/16/2014 7:32 AM CDT) athologist Signature Lipase 39 5 - 70 U/L HP CONVERSION Specimen Anatomical Collection Method Collection Time Receive d Time (Source) Location / / Volume Laterality 03/16/2014 7:32 AM 4 7:32 CDT AM CDT Narrative HP CONVERSION - 03/16/2014 8:32 AM CDT Performed at [facility], [address] [place], [place] [id number] Olamide Rodney MD LAB_1 Performing Organization Address [facility] Phon e Number HP CONVERSION (ABNORMAL) Liver Panel(Hepatic Function Panel) (03/16/2014 7:32 AM CDT) [facility] gist Method Time Signature Alk Phos 64 25 - 135 HP CONVERSION U/L Bilirubin Total 0.5 0.2 - 1.2 HP CONVERSION mg/dL Bilirubin, Direct 0.2 0.0 - 0.4 HP CONVERSIO N mg/dL Protein Total, Serum 6.8 5.7 - 8.3 HP CONVER LAURA g/dL Albumin 4.1 3.4 - 5.0 HP CONVERSION g/dL Aspartate 76 (H) 0 - 45 HP CONVERSION Aminotransferase U/L Alanine 79 (H) 4 - 55 HP CONVERSION Aminotransferase U/L Specimen Anatomical Collection Method Collection Time Receive d Time (Source) Location / / Volume Laterality 03/16/2014 7:32 AM 4 7:32 CDT AM CDT Narrative HP CONVERSION - 03/16/2014 8:32 AM CDT Performed at [facility], [address] [place] [address] Olamide Rodney MD LAB_1 Performing Organization Address [facility] Phon e Number HP CONVERSION documented in this encounter Visit Diagnoses Diagnosis Elevated liver function tests Other abnormal blood chemistry documented in this encounter Care Teams Instructional Support Services Director Relationship Specialty Start Date End Date Olamide Rodney MD PCP - General 09/25/10 01/11/21 [address] [place], [place] [address] documented as of this encounter
--- OUTSIDE RECORDS SUMMARY | 2022-01-29 17:50 | XMS_ITS | Encounter Summary ---
:1960 Author Organization [employer] Address [address] [place] [address] Care Team Providers Name Role Phone Olamide Rodney MD Primary Care Provider Reason for Visit Reason Comments Medication Request Encounter Details Date Type Department Care Team Description 05/11/2015 Nurse Triage [facility] Olamide Rodney, [place] dication Request Medicine [address] [address] [facility] [phone] [place] [address] (Wo rk) Social History Tobacco Use Types Packs/Day Years Used Date Smoking Tobacco: Never Alcohol Use Standard Drinks/Week Comments Yes 0 (1 standard drink = 0.6 oz pure alcoho l) mod Sex Assigned at Date Recorded Not on file documented as of this encounter Nursing Notes Claribel Silva LPN - 05/11/2015 1:13 PM CST I called and spoke with the pt about coming in this afternoon. Olamide Jimenez MD - 05/11/2015 11:34 AM CST Have her come over this afternoon for work in TER HELPER Stacie Germain RN - 05/11/2015 11:13 AM CST Reason for Call: Appointment Work In requested. Next Steps: Document further recommendations and route to appropriate person or pool. Patient IS expecting a call back from Care Team. Additional Information:Depression/Medication request Protocol: [id number] Affirmative: Patient wants to be seen Disposition of See Within 3 Days In Office suggested. Called pt back. States she has been feeling more depressed over the past month or so that has been gradually increasing. Pt states she is not suicidal and does not have any significant event that has happened to cause these symptoms. Has been trying to decrease or stop alcohol intake and that may be afactor. Has a supportive and has been going to work as usual without difficulty. Yesterday afternoon, it hit her hard and could not stop crying. Called some of her family to talk through thingsand stayed home from work today. Did schedule an appointment with PCP for 05/19/2015, but would really like to be seen today if possible. If unable to be seen by PCP, pt requests to be started on a low dosage of Zoloft. States she had taken this medication about 12 years ago prescribed by another physician and that medication worked very well for her. Please call pt at [phone] to advise. TER HELPER Miguelina Jarquin - 05/11/2015 10:55 AM CST Pt states she is fighting depression and is wanting to get in to see Dr. Rodney today, however is booked. Pt is wondering if she could get a prescription for Zoloft if possible. Pt states she was on this prescription about 12 years ago. Pt does not remember the dosage but states it was pretty low. Pt has an appointment set for 05/19/15 @ 10:40am. If Dr. Rodney is able to work her in any earlier pt would like that. Pt would like a call back regarding all of this. Please advise. TER HELPER documented in this encounter Plan of Treatment Not on filedocumented as of this encounter Visit Diagnoses Not on filedocumented in this encounter Care Teams Notcher Relationship Specialty Start Date End Date Olamide Rodney MD PCP - General 09/25/10 01/11/21 [address] [place] [address] documented as of this encounter
--- OUTSIDE RECORDS SUMMARY | 2022-01-29 17:50 | XMS_ITS | Encounter Summary ---
:1960 Author Organization [employer] Address [address] [place] [address] Care Team Providers Name Role Phone Olamide Rodney MD Primary Care Provider Encounter Details Date Type Department Care Team Description 03/22/2015 Imaging [facility] Heel pain, right [address] [place], [place] [id number] Social History Tobacco Use Types Packs/Day Years Used Date Smoking Tobacco: Never Alcohol Use Standard Drinks/Week Comments Yes 0 (1 standard drink = 0.6 oz pure alcoho l) mod Sex Assigned at Date Recorded Not on file documented as of this encounter Plan of Treatment Not on filedocumented as of this encounter Procedures Procedure Name Priority Date/Time Associated Diagnosis Comme nts XR CALCANEUS RT 2+ Routine 03/22/2015 1:02 PM Heel pain, right Results for this VIEWS CDT procedure are i n the results section. documented in this encounter Results XR Calcaneus Rt 2+ Views (03/22/2015 1:02 PM CDT) Anatomical Region Laterality Modality Lower Extremity, Foot, Foot & Ankle Othe r Specimen (Source) Anatomical Location Collection Method / Collectio n Time Received Time / Laterality Volume Narrative 03/22/2015 1:15 PM CDT COMPARISON: ??None. FINDINGS: ??2 views of right heel. No ac tanana fracture. No dislocation. Prominent plantar calcaneal heel spur and Achilles tendon enthesophyte. ??There is prominent soft tissue posterior to the calcaneus. Nonspecific. If there is strong concern for Achilles pathology, consider dedicated MRI as cli nically warranted. Procedure Note Nixon Mcdonald W - 12/10/2015Formatt ing of this note might be different from the original. COMPARISON: None. FINDINGS: 2 views of right heel. No acut e fracture. No dislocation. Prominent plantar calcaneal heel spur and Achilles tendon enthesophyte. There is prominent soft tissue posterior to the calcaneus. Nonspecific. If there is strong concern for Achilles pathology, consider dedicated MRI as cli nically warranted. Olamide Rodney MD RAD GD documented in this encounter Visit Diagnoses Diagnosis Heel pain, right documented in this encounter Care Teams Veneer Redrier Relationship Specialty Start Date End Date Olamide Rodney MD PCP - General 09/25/10 01/11/21 [address] [place] [address] documented as of this encounter
--- OUTSIDE RECORDS SUMMARY | 2022-01-29 17:50 | XMS_ITS | Encounter Summary ---
:1960 Author Organization [employer] Address [address] [place] [address] Care Team Providers Name Role Phone Olamide Rodney MD Primary Care Provider Reason for Visit Reason Comments ANXIETY Encounter Details Date Type Department Care Team Description 07/21/2015 Hospital Encounter [facility] [place], Liz Panic attack; Care JOVAN Mcintosh Anxiety [address] [place] [address] [place], [place] [phone] (Wo rk) Social History Tobacco Use Types Packs/Day Years Used Date Smoking Tobacco: Never Alcohol Use Standard Drinks/Week Comments Yes 0 (1 standard drink = 0.6 oz pure alcoho l) mod Sex Assigned at Date Recorded Not on file documented as of this encounter Last Filed Vital Signs Vital Sign Reading Time Taken Comments Blood Pressure 171/103 07/21/2015 8:15 AM GAS 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 LW Addl 2013 1:27 PM Stopped Instr:hold until taking aspirin per lovenox dc'd instructions for procedure. cyanocobalamin 1000 MCG Take 1,000 mcg by 0 03/08 tablet mouth daily (every 24 hours). 6 times/week Multiple Vitamins-Minerals Take 2 tablets by 0 (MULTIVITAMIN ADULT OR) mouth daily (every 24 hours). ALBUterol sulfate HFA 108 Inhale 2 puffs 1 Inhaler 1 201409/28/2015 (90 BASE) MCG/ACT inhaler every 6 hours as needed for Wheezing. B COMPLEX-C OR Take 1 capsule by 0 03/28/201412/2015 mouth daily (every 24 hours). folic acid 400 MCG tablet Take 400 mcg by 0 03/2809/28/2015 mouth daily (every 24 hours). ASPIRIN EC 81MG ORAL TABS 3 TABLETS DAILY 0 11/0704/02/2016 CALCIUM + D 600-200 MG-IU 3 TABLET DAILY 0 200204/02/2016 OR TABS CYANOCOBALAMIN 1000 MCG SL 1 every other day 0 99 04/02/2016 SUBL FLINTSTONES PLUS IRON OR 2 per day 0 03/24/2003 04/02/2016 CHEW LORazepam (aka ATIVAN) Take 1 tablet by 12 tablet 0 016 12/29/2015 tablet mouth every 6 hours as needed for Anxiety. LORazepam (ATIVAN) 0.5 MG Take 1 tablet by 12 tablet 0 06/2404/02/2016 tablet mouth every 6 hours as needed for Anxiety. PIRBUTEROL ACETATE (MAXAIR use as directed prn 1 0 09/24/2004 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) 200MCG/INH INHALERIndications: Unspecified asthma(493.90) (HRC) sertraline (AKA ZOLOFT) 50 Take 0.5 tablets by 90 tablet 3 05/25/2015 05/12/2016 MG tabletIndications: mouth daily (every Depression, major, single 24 hours). episode, mild (HRC) documented as of this encounter ED Notes Liz Acevedo PA-C - 07/21/2015 9:20 AM CST [facility] SUBJECTIVE Chief Complaint: Chief Complaint Patient presents with ??? Anxiety HPI: Paty Stovall is a 54 y.o.female with a history of DVT, factor V Leyden, type II diabetes, chronic insomnia, chronic abdominal pain, alcoholism, and major depression in today for evaluation of anxiety andpanic attacks. Yesterday morning she woke up and was extremely anxious. She called in sick to work. Since that time she is having frequent crying spells. They will last anywhere from 5- 10 minutes. Theywill come on randomly. She feels panicked during that time, her heart is racing and she feels short of breath and nauseous. This resolves after the spell, and at baseline just feels anxious. There is no known trigger or specific event that triggered her anxiety yesterday. She went to her neighbor's house and talked with them who then called her Ino. Her is present during the visit today. She denies any additional stress at home or work. She states that she feels that she cannot seethe sun. She does have a light box at work but does not have one at home. She does have a history of depression for which she takes sertraline for. She has never been hospitalized before for anxiety or depression. She does state that when the panic attacks come on she will have thoughts of self-harm and suicide. She adamantly states that she would never act on this. She has no plan to do so. She is hopeful about her future and wants to go to her trip to [place]. She does have guns in her home butthey are locked and she does not know the combination to the safe. She also states that her [id number] has committed suicide and she would never do this herself. 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 She does have a history of alcohol dependence, she did drink a couple days ago but she threw the entire bottle out and has not drank since that time. Denies any self- harm, appetite changes, sleep changes, nausea, vomiting, chest pain. Past Medical History: Patient Active Problem List Diagnosis ??? Deep Venous Thrombosis ??? Factor V Leiden ??? Hernia Hiatal ??? Lumbar Disc Degeneration ??? Diabetes type 2, controlled (HRC) ??? Chronic insomnia ??? Actinic keratoses ??? Nondependent alcohol abuse ??? Chronic abdominal pain ??? Varicose veins ??? Superficial thrombophlebitis ??? S/P gastric bypass ??? Hx of cancer of endometrium ??? Unspecified asthma(493.90) (HRC) ??? Macrocytosis without anemia ??? Osteopenia ??? Alcoholism, chronic (HRC) ??? Circadian rhythm sleep disorder, delayed sleep phase type ??? Depression, major, single episode, mild (HRC) Social History: History Substance Use Topics ??? Smoking status: Never Smoker ??? Smokeless tobacco: Never Used ??? Alcohol Use: No Comment: None Family History: Family History Problem Relation Age of Onset [...] Aunt ??? Cancer, Breast Maternal Aunt 70 Medications: Reviewed in [facility]. Adverse Drug Reactions: Flovent; Lanolin; Other; Oxycodone-acetaminophen; Review contrast media; and Review food intolerance ROS: Pertinent positives and negatives stated in HPI otherwise negative. OBJECTIVE Physical exam: Vital Signs: BP 171/103 mmHg Pulse 89 Temp(Src) 36.9 ??C (98.4 ??F) (Oral) Resp 20 Constitutional: Very anxious, no distress. WDWN> Eyes: conjunctivae are pink and moist and is PEARLA HEENT: oral mucosa are pink and moist and no lesions on lips or gums Neck: no masses and trachea is midline Respiratory: has normal respiratory effort and is clear to auscultation Cardiovascular: Rate and rhythm regular. and No murmur. Extremities: no edema and has 2+ pedal pulses GI/Abdomen: is soft, non-tender, has active bowel sounds and no masses Lymphatic system: no palpalable lymph nodes neck Skin: no rashes, lesions, or ulcers and has normal skin tone and color Neurological: is alert and orientated Psychiatric/Behaviorial: has normal judgement and insight, is oriented to person, place, and time and recent and remote memory are intact, crying during visit. Extremely anxious. Angry at times. ASSESSMENT Diagnosis ICD-10-CM ICD-9-CM 1. Panic attack (HRC) F41.0 300.01 2. Anxiety (HRC) F41.9 300.00 PLAN I had a very lengthy discussed with the patient and her regarding her anxiety, depression, panic attacks, and passive suicidal thoughts. I do not feel that the patient is actively suicidal at this time, and did not place her on a 72 hour hold. However, I did approach the topic of a voluntary hospital stay. Patient adamantly refuses this as a possibility. I discussed having her set up with psychology of psychiatry instead as an outpatient, and again patient adamantly declines. She states thatshe worked as a psychologist and every time she has met with mental health in the past just becomes angry. She tells me she will actually be angry if I provide her with a referral. I discussed that if she is unwilling to participate or meet with people to improve her anxiety there is only so much I can do for her in urgent care. She acknowledges that she is unwilling at this point and states that shewill find alternative options for her anxiety management. Patient was also somewhat reluctant to tryany anti-anxiety medication during urgent care. I did provide her with a small dose of Ativan that she did agree to. She was feeling more calm and had stopped crying by the end of the visit. I have given her a very limited supply of this to use at home, but stressed the importance of using sparingly. Patient does seem to have a good support system, her is present and agrees to support and monitor her closely. She will attempt to use alternative methods for her anxiety treatment including meditation, yoga, exercise, massage, and baths. I have given her the urgent care mental health crisis number as well to use if needed. If any change in suicidal thoughts, wanting to harm self or others, increasing panic or anxiety, or other concerns need to call 911, or go to the ER immediately. Patient and verbalized understanding and comfortable with plan. I discussed this case with Dr. Brewer in urgent care who agreed with my plan. I will also have the patient follow up with her primary doctornext week for recheck of her symptoms. The patient was discharged ambulatory and in stable condition. Medications and orders for this encounter: Medications LORazepam (ATIVAN) tablet 0.5 mg (0.5 mg Oral Given 07/21/15 0850) Medications Prescribed this Visit Disp Refills Start End LORazepam (ATIVAN) 0.5 mg tablet 12 tablet 0 07/21/2015 Take 1 tablet by mouth every 6 hours as needed for Anxiety. Oral Orders Placed This Encounter ??? Internal Medicine Consult Adult (AMB) Dr. Rodney Only, needs follow up next week. Standing Status: Future Number of Occurrences: Standing Expiration Date: 07/21/2016 Referral Priority: Routine Referral Type: Consult/Transfer Care Referral Reason: Consultation only Requested Specialty: Internal Medicine Number of Visits Requested: 1 Expiration Date: 07/21/2016 ??? LORazepam (ATIVAN) tablet 0.5 mg Sig: ??? LORazepam (ATIVAN) 0.5 mg tablet Sig: Take 1 tablet by mouth every 6 hours as needed for Anxiety. Dispense: 12 tablet Refill: 0 Patient discharge instructions: Discharge Instructions Recommendations: ?? Ativan every 6-8 hours, use sparingly ?? Rest, meditation ?? Exercise can be beneficial ?? Consider massage or yoga ?? If in urgent need of mental health support call [phone], available 24 hours ?? Follow up with primary next week for recheck ?? If any change in suicidal thoughts, wanting to harm self or others, increasing panic or anxiety, or other concerns need to call 911, or go to the ER immediately. Discharge References/Attachments PANIC ATTACKS (MALAY) GOLF CART REPAIRER documented in this encounter Miscellaneous Notes Medication History - Tadeo, MD Tirso - 07/21/2015 9:20 AM CST INPATIENT MEDS Encounter Date: 07/21/15 LORazepam (ATIVAN) 0.5 mg tablet Start Date:07/21/15, End Date:-, Frequency:EVERY 6 HOURS PRN *No Administrations Recorded LORazepam (ATIVAN) tablet 0.5 mg Start Date:07/21/15, End Date:07/21/15, Frequency:ONCE Taken Dose Action User Route Site Recorded Comment Reason 07/21/15 0850 0.5 mg Given Salima Juarez LPN Oral - 07/21/15 0850 - - GOLF CART REPAIRER ED AVS Snapshot - Tirso Piedra MD - 07/21/2015 9:20 AM CST Images from the original note were not included. [facility] [address] [place] [address] Dept: [phone] [email or web address] Paty Stovall 07/21/2015 8:17 AM Hospital Encounter Description: Female : 1960 Department: [facility] Dept Thank you for choosing [facility] for your health care visit with Liz Acevedo PA-C. We are happy to care for you and provide this summary of your visit. Your primary child adolescent care is currently listed as Olamide Rodney MD. HERE IS WHAT YOU NEED TO KNOW To learn how you can take steps to stay as healthy as you can be visit [email or web address] Discharge Instructions Recommendations: ?? Ativan every 6-8 hours, use sparingly ?? Rest, meditation ?? Exercise can be beneficial ?? Consider massage or yoga ?? If in urgent need of mental health support call [phone], available 24 hours ?? Follow up with primary next week for recheck ?? If any change in suicidal thoughts, wanting to harm self or others, increasing panic or anxiety, or other concerns need to call 911, or go to the ER immediately. Discharge References/Attachments PANIC ATTACKS (MALAY) HERE IS WHAT YOU NEED TO DO Call your clinic if: You develop new symptoms Your symptoms worsen unexpectedly You are not improving as expected You have questions about your visit or medications Your to do list Future Appointments Provider Department Dept Phone 09/18/2015 8:00 AM Olamide Rodney MD [facility] [phone] Future Orders Complete By Ordering Dept. Alanine Aminotransferase 09/20/2015 [facility] BUN 09/20/2015 [facility] Calcium 09/20/2015 [facility] Cholesterol Fraction-LDLD If Trig High 09/20/2015 [facility] Complete Blood Count W/Diff 09/20/2015 [facility] Creatinine 09/20/2015 [facility] Electrolytes (NA, K, CL, Bicarb) 09/20/2015 [facility] Ferritin 09/20/2015 [facility] Fluarix Influenza QIV (36+ mos) 09/20/2015 [facility] Hemoglobin A1C Glycosylated 09/20/2015 [facility] Microalbumin Urine Random 09/20/2015 [facility] TSH And Free T4 (FRT4 If TSH Abnorm) 09/20/2015 [facility] Vitamin B-12 09/20/2015 [facility] Vitamin D (In house) 09/20/2015 [facility] Internal Medicine Consult Adult (AMB) As directed [facility] Scheduling Instructions: Your provider has recommended an appointment with [facility]. You may call [phone] to schedule your appointment. If you prefer, a supervisor boat outfitting will contact you within the next 3 business days to assist you in setting up this appointment. This recommended service/s may not be coveredby your insurance coverage. To find out your specific benefit coverage, please call the number on your insurance card. HERE IS INFORMATION FROM TODAY'S VISIT Reason for Visit Anxiety Reason for Visit History Health issues considered by your clinician today Panic attack (HRC) Anxiety (HRC) If you had any tests, you will be notified of your abnormal results by your clinic. Medications administered today Administered Action LORazepam (ATIVAN) tablet 0.5 mg 07/21/2015 Given MEDICATIONS As of today's visit, these are your current medications DOSAGE albuterol HFA 90 mcg/actuation inhaler Inhale 2 puffs every 6 hours as needed for Wheezing. aspirin 81 mg tablet (Taking) Take 2 tablets by mouth daily (every 24 hours). LW Addl Instr:hold until lovenox dc'd b complex-vitamin c-folic acid (NEPHROCAPS) 1 mg capsule Take 1 capsule by mouth daily (every 24 hours). cyanocobalamin (VITAMIN B12) 1,000 mcg tablet Take 1,000 mcg by mouth daily (every 24 hours). 6 times/week folic acid 400 mcg tablet Take 400 mcg by mouth daily (every 24 hours). LORazepam (ATIVAN) 0.5 mg tablet Take 1 tablet by mouth every 6 hours as needed for Anxiety. multivitamin (THERAGRAN) tablet Take 2 tablets by mouth daily (every 24 hours). sertraline (ZOLOFT) 50 mg tablet (Taking) Take 0.5 tablets by mouth daily (every 24 hours). Vital signs from your visit Your Vital Signs Were BP Pulse Temp(Src) Resp Smoking Status 171/103 mmHg 89 36.9 ??C (98.4 ??F) (Oral) 20 Never Smoker Allergies as of 07/21/2015 Flovent [Fluticasone] 04/22/2011 laryngitis Lanolin 03/09/2014 Allergy Hives Other 09/17/2010 Unspecified LW Other1: -NONE KNOWN Oxycodone-Acetaminophen 09/24/2010 Allergy LW Reaction: Itching, Pruritis Review Contrast Media 09/17/2010 Unspecified LW CM1: >>> NO CONTRAST ADVERSE REACTION <<< Reaction : Review Food Intolerance 09/24/2010 Unspecified LW FI1: NO KNOWN FOOD ALLERGIES OR INTOLERANCES LW FI2: NO KNOWN FOOD ALLERGIES OR INTOLERANCES Immunization History Reviewed on 03/22/2015 FLUARIX INFLUENZA QIV (36+ MOS) 03/22/2015, 03/09/2014, 03/08/2013 INFLUENZA TIV 0.5 ML (36+ MOS) 03/29/2011, 04/01/2010, 05/22/2007, 05/06/2006, 04/03/2005 Influenza TIV (36+ mos) 03/04/2012 Pneumococcal vaccine (pneumovax) 10/02/2005 Td Adult (>7 years) 12/11/1999 Tdap (Adacel) 08/19/2011 About You Date Of Sex Race Ethnicity Preferred Language 1960 Female White Non- Micronesian This document contains confidential information about your health and care. It is provided directlyto you for your personal, private use only. 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
--- OUTSIDE RECORDS SUMMARY | 2022-01-29 17:50 | XMS_ITS | Encounter Summary ---
:1960 Author Organization [employer] Address [address], [place] [address] Care Team Providers Name Role Phone Olamide Rodney MD Primary Care Provider Reason for Visit Reason Comments Follow-up Encounter Details Date Type Department Care Team Description 05/25/2015 Office Visit [facility] Olamide Rodney Dep ression, [facility], Medicine MD [place] single episode, mild [address] (Primary Dx) [place] [address] Blvd [phone] [place], [place] [address] (Wo rk) Social History Tobacco Use Types Packs/Day Years Used Date Smoking Tobacco: Never Alcohol Use Standard Drinks/Week Comments Yes 0 (1 standard drink = 0.6 oz pure alcoho l) mod Sex Assigned at Date Recorded Not on file documented as of this encounter Last Filed Vital Signs Vital Sign Reading Time Taken Comments Blood Pressure 137/80 05/25/2015 11:25 AM 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 Patient started the sertraline 50 mg one half tab daily. Taking it for 2 weeks now. Had slight loosestool and dizziness but they resolved. MYLENE-7 score is 0. Phq9 score is 2. Patient feels the medication is markedly helpful. 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 She is using some [id number] zquil at night to help sleep. In retrospect now she feels she may have more symptoms in the winter. She usually feels better in the summer. She has not tried light therapy. She is not drinking as much alcohol. Allergies Allergen Reactions ??? Flovent [Fluticasone] laryngitis [...] ??? sertraline (ZOLOFT) 50 mg tablet Take 1 tablet by mouth daily (every 24 hours). 90 tablet 3 No facility-administered medications prior to visit. Past [...] cancer of endometrium 07/26/2011 ??? [place]493.90[place] [place] 08/19/[place] ??? Macrocytosis without anemia 04/22/2012 ??? [place] [place] allergic triggers OBJECTIVE: Vitals: BP 137/80 mmHg Pulse 64 Wt 109.77 kg (242 lb) General: 54 y.o.-year-old female Psychiatric: Appropriate mood and affect. ASSESSMENT: 1. Encounter Diagnosis Name Primary? Depression, major, single episode, mild (HRC) Yes PLAN: 1. Patient will continue sertraline at current dose. Sad light prescription given. 2. Orders Placed This Encounter Procedures ??? Sad Light Orders Placed This Encounter Medications ??? sertraline (ZOLOFT) 50 mg tablet Sig: Take 0.5 tablets by mouth daily (every 24 hours). Dispense: 90 tablet Refill: 3 There are no Patient Instructions on file for this visit. The patient was discharged ambulatory and in stable condition. *SH~DNS~SOAP ROOM KEEPER documented in this encounter Plan of Treatment Not on filedocumented as of this encounter Visit Diagnoses Diagnosis Depression, major, single episode, mild (HRC) - Primary Major depressive disorder, single episod e, mild documented in this encounter Care Teams Nail Welter Relationship Specialty Start Date End Date Olamide Rodney MD PCP - General 09/25/10 01/11/21 [address] [place] [address] documented as of this encounter
--- OUTSIDE RECORDS SUMMARY | 2022-01-29 17:50 | XMS_ITS | Encounter Summary ---
:1960 Author Organization [email or web address] Address [address] [place] [address] Care Team Providers Name Role Phone Shira Rodney MD Primary Care Provider Reason for Visit Reason Comments Other Encounter Details Date Type Department Care Team Description 04/27/2014 Hospital Encounter [facility] Malia Zhu MD ETOH abuse [id number] [phone] [place] [address] (Wo rk) Social History Tobacco Use Types Packs/Day Years Used Date Smoking Tobacco: Never Alcohol Use Standard Drinks/Week Comments Yes 0 (1 standard drink = 0.6 oz pure alcoho l) mod Sex Assigned at Date Recorded Not on file documented as of this encounter Last Filed Vital Signs Vital Sign Reading Time Taken Comments Blood Pressure 142/86 04/27/2014 10:04 AM GAS PUMP ATTENDANT Pulse 88 04/27/2014 10:04 AM GAS PUMP ATTENDANT Temperature 36.8 ??C (98.2 ??F) 04/27/2014 10:04 AM GAS PUMP ATTENDANT Respiratory Rate 18 04/27/2014 10:04 AM GAS PUMP ATTENDANT Oxygen Saturation 97% 04/27/2014 10:04 AM GAS PUMP ATTENDANT Inhaled Oxygen Concentration - - Weight - - Height - - Body Mass Index - - documented in this encounter Medications at Time of Discharge Medication Sig Dispensed Refills Start Date End Date aspirin 81 MG Take 2 tablets by 3 10/04/2010 tabletIndications: mouth daily (every TROSVIG, PATY Smith Fri 24 hours). LW Addl 2013 1:27 PM Stopped Instr:hold until taking aspirin per lovenox dc'd instructions for procedure. cyanocobalamin 1000 MCG Take 1,000 mcg by 0 03/08 tablet mouth daily (every 24 hours). 6 times/week Multiple Vitamins-Minerals Take 2 tablets by 0 (MULTIVITAMIN ADULT OR) mouth daily (every 24 hours). B COMPLEX-C OR Take 1 capsule by [...] 2 per day 0 03/24/2003 04/02/2016 CHEW PIRBUTEROL ACETATE (MAXAIR use as directed prn 1 0 09/24/2004 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) 200MCG/INH INHALERIndications: Unspecified asthma(493.90) ([facility]) documented as of this encounter ED Notes Malia Zhu MD - 04/27/2014 2:19 PM CST ED Provider Notes signed by Malia Zhu MD at 05/04/141116 Author: Malia Zhu MD Service: (none) Author Type: Physician Filed: 05/04/141116 Note Time: 04/27/141451 Status: Signed Beauty School Instructor: Malia Zhu MD (Physician) NAME: PATY LLAMAS MR#: [id number] CSN: [id number] AUTHENTICATING CLINICIAN: Malia Zhu MD CONFIRM #: [id number] LOC: 520 URGENT CARE PROGRESS NOTE DATE OF VISIT: 04/27/2014 : 1960 CHIEF COMPLAINT: Personal. HPI: This pleasant 53-year-old comes in today complaining of alcohol abuse. Patient says she has a longstanding history of alcohol abuse. She has drank very heavily over the last 10 years. During that time,she had a 6-month time that she was sober, but then her [id number] offered her a drink, and she has been drinking again since then. When I ask her exactly how much she has been drinking she says, You don't even want to know how much. Patient is to the point that, if she does not drink every couple hours, she will start to have hallucinations. Yesterday, she saw her honeymoon plate that was in the kitchen was starting to move and dance after she had not had alcohol for a couple hours. Last week,she was unable to get off the couch when she had not drank anything for a couple hours. She is hearing and seeing things if she is not drinking. Also gets quite shaky. She says that her also does drink with her, but not to the extent that she does. There is no other alcoholism in her family. She has thought about going to counseling, but she absolutely does not believe in God and so she does not want to go to AA because she does not want to talk about her drinking and becoming sober if it has anything to do with God. She does continue to work. She has not been vomiting. She does not feel any chest pain or shortness of breath. She does feel lightheaded and dizzy this morning. She tells me, I cannot go on like this. I need to get help. [place] PAST MEDICAL HISTORY: DVT, factor V Leiden, diabetes mellitus, chronic insomnia, chronic abdominal pain. PAST SURGICAL HISTORY: Two Flovent lanolin oxycodone. PAST SURGICAL HISTORY: Reviewed through [employer]. MEDICATIONS: Reviewed through [employer]. ALLERGIES: Flovent, lanolin, oxycodone. OBJECTIVE: Temperature 98.2, pulse 88, respirations 16, blood pressure 142/86. O2 sats 97% on room air. GENERAL: Alert and oriented, in no apparent distress. Quite shaky and anxious. Tympanic membranes, no sign of infection. Oropharynx is pink and moist with no tonsillar enlargement. I did notice some telangiectasias on the patient's face. LUNGS: Clear to auscultation bilaterally. HEART: Regular; without murmurs, rubs, or gallops. ABDOMEN: Obese, soft, nontender, nondistended, no mass. Positive bowel sounds. EXTREMITIES: No rash or cyanosis. PSYCHIATRIC: Alert and oriented, in no apparent distress. Describes drinking to the point that she is not in control of it. If she does not drink, she is seeing and hearing things with auditory and visual hallucinations. Does not feel in control of her drinking. ASSESSMENT: Alcohol abuse. PLAN: I did speak with [facility] and they are comfortable with taking the patient to help her with detox. I did explain to her that we do not have inpatient alcohol treatment or even the ability to setup for outpatient alcohol treatment at [facility]. She would have to go to [facility], [facility], or [facility]. She says that she wants to go through detox first, and then she will set up for counseling. I did speak to [facility] and they actually can do an internet skyping interview with an alcohol counselor while she is in the hospital. They are comfortable going over to [facility], and her will drive her immediately over there. She left in stable condition. She did want me to let Dr. Rodney know that she was in the hospital and she was doing this, and I will call her and let her know that Paty is in the hospital. [place]: [place] [address] [place] [address] KMM:DUANE C: CONFIRM #: [id number] PUMP ATTENDANT Malia Zhu MD - 04/27/2014 10:25 AM CST .dict documented in this encounter Miscellaneous Notes ED AVS Snapshot - Tirso Piedra MD - 04/27/2014 10:33 AM CST Images from the original note were not included. [facility] [address] [place] [address] Dept: [phone] [email or web address] Paty Alvaradon 04/27/2014 10:08 AM Hospital Encounter Description: Female : 1960 Department: [facility] Thank you for choosing [facility] for your health care visit with Malia Zhu MD. Weare happy to care for you and provide this summary of your visit. Your primary caregiver assisted living is currently listed as Shira Rodney MD. HERE IS WHAT YOU NEED TO KNOW To learn how you can take steps to stay as healthy as you can be visit [email or web address] HERE IS WHAT YOU NEED TO DO Call your clinic if you develop new or worsening symptoms or if you have questions about your visit or medications. Your to do list Future Appointments Provider Department Dept Phone 05/04/2014 9:00 AM Shira Rodney MD [facility] [phone] 05/25/2014 3:30 PM Oneida Rivers MD [facility] [phone] If you need to cancel or reschedule your appointment, please call [phone]. Future Orders Complete By Ordering Dept. Alanine Aminotransferase 04/15/2014 [facility] Aspartate Aminotransferase 04/15/2014 [facility] PULMONOLOGY CONSULT ADULT (AMB) As directed [facility] Scheduling Instructions: Your provider has recommended an appointment with [facility]. You may call [phone] to schedule your appointment. If you prefer, a network systems administrator will contact you within the next 3 business days to assist you in setting up this appointment. This recommended service/s may not be covered by your insurance coverage. To find out your specific benefit coverage, please call the numberon your insurance card. HERE IS INFORMATION FROM TODAY'S VISIT Reason for Visit Other Reason for Visit History Health issues considered by your clinician today ETOH abuse If you had any tests, you will be notified of your abnormal results by your clinic. Medications administered today None MEDICATIONS As of today's visit, these are your current medications Medication DOSAGE aspirin 81 mg tablet Take 2 tablets [...] mcg by mouth daily (every 24 hours). multivitamin (THERAGRAN) tablet Take 2 tablets by mouth daily (every 24 hours). Vital signs from your visit Your Vitals Were BP Pulse Temp(Src) Resp SpO2 142/86 88 36.8 ??C (98.3 ??F) (Oral) 18 97% Allergies as of 04/27/2014 Flovent [Fluticasone] 04/22/2011 laryngitis Lanolin 03/09/2014 Allergy Hives Other 09/17/2010 Unspecified LW Other1: -NONE KNOWN Oxycodone-Acetaminophen 09/24/2010 Allergy LW Reaction: Itching, Pruritis Review Contrast Media 09/17/2010 Unspecified LW CM1: >>> NO CONTRAST ADVERSE REACTION <<< Reaction : Review Food Intolerance 09/24/2010 Unspecified LW FI1: NO KNOWN FOOD ALLERGIES OR INTOLERANCES LW FI2: NO KNOWN FOOD ALLERGIES OR INTOLERANCES Immunization History Reviewed on 03/09/2014 FLUARIX INFLUENZA QIV (36+ MOS) 03/09/2014, 03/08/2013 INFLUENZA TIV 0.5 ML (36+ MOS) 03/29/2011, 04/01/2010, 05/22/2007, 05/06/2006, 04/03/2005 Influenza TIV (36+ mos) 03/04/2012 Pneumococcal vaccine (pneumovax) 10/02/2005 Td Adult (>7 years) 12/11/1999 Tdap (Adacel) 08/19/2011 About You Date Of Sex Race Ethnicity Preferred Language 1960 Female White Non- Divehi This document contains confidential information about your health and care. It is provided directlyto you for your personal, private use only. PUMP ATTENDANT documented in this encounter Plan of Treatment Not on filedocumented as of this encounter Visit Diagnoses Diagnosis ETOH abuse Alcohol abuse, unspecified Triage Assessment Note - Villa Hammond RN - 04/27/2014 10:04 AM CST patient states that she is an alcoholic, and is having troubles she wants to go to a detox, tried toquit on her own but starting having withdrawal sx's, states the last drink was about 5 minutes ago documented in this encounter Care Teams Hydrologic Modeler Relationship Specialty Start Date End Date Shira Rodney MD PCP - General 09/25/10 01/11/21 [address] [place] [address] documented as of this encounter
--- OUTSIDE RECORDS SUMMARY | 2022-01-29 17:50 | XMS_ITS | Encounter Summary ---
:1960 Author Organization [employer] Address [address] [address] Care Team Providers Name Role Phone Olamide Rodney MD Primary Care Provider Reason for Visit Reason Comments Annual Exam Encounter Details Date Type Department Care Team Description 09/12/2014 Office Visit [facility] Olamide Rodney physical examination (Primary Dx); Hayley Antoine MD Diabetes type 2, controlled; [id number] [facility] [place] [address] [facility] [phone] [place], [place] [address] (Wo rk) Social History Tobacco Use Types Packs/Day Years Used Date Smoking Tobacco: Never Alcohol Use Standard Drinks/Week Comments Yes 0 (1 standard drink = 0.6 oz pure alcoho l) mod Sex Assigned at Date Recorded Not on file documented as of this encounter Last Filed Vital Signs Vital Sign Reading Time Taken Comments Blood Pressure 128/88 09/12/2014 8:03 AM CDT Pulse 68 09/12/2014 8:03 AM CDT Temperature - - Respiratory Rate - - Oxygen Saturation - - Inhaled Oxygen Concentration - - Weight 102.1 kg (225 lb) 09/12/2014 8:03 AM CDT Height 165.1 cm (5' 5) 09/12/2014 8:03 AM CDT Body Mass Index 37.44 09/12/2014 8:03 AM CDT documented in this encounter Progress Notes Olamide Rodney MD - 09/12/2014 8:30 AM CDT Preventive Physical Exam: 09/12/2014 SUBJECTIVE: 53 y.o. year old female for a physical exam. Zostavax 2008. Pneumonia vaccine 1996 &2005. Adacel 2011. Gets seasonal flu shot. Was diagnosed with endometrial cancer, still gets Pap andexam from Dr. Madrid, on schedule. Had the DAVID and BSO. She remotely had a DVT on control pills. She is sexually active and denies risk for STD. Her had vasectomy. She does do self- breast exam. No history of breast biopsy. Gets annual mammograms. She is working out at the gym 3 times per week 45-60 minutes doing weights and cardio. Weight is up a bit. Bone density approximately 2013, duein 10 years for repeat. Colonoscopy 2014 repeat in 5 years, does have family history of colon cancerin mother. She has type 2 diabetes mellitus which became quiescent after her gastric bypass. Her current weightis stable. Wants maxair refill, wanted to use it when was exposed to some mold spores recently. Otherwise asthma quiet for many years. Lab Results Component Value Date/Time HGB A1C 5.8* 09/02/2014 1102 HGB A1C 5.4 03/10/2014 0903 HGB A1C 5.3 09/02/2013 1026 Hemoglobin A1C Rapid 5.2 03/31/2012 1013 Immunization History Administered Date(s) Administered ??? FLUARIX INFLUENZA QIV (36+ MOS) 03/08/2013, 03/09/2014 ??? Influenza TIV (36+ mos) 03/04/2012 ??? [...] ??? Actinic keratoses 04/23/2011 ??? Endometrial cancer ([facility]) 04/23/2011 ??? Nondependent alcohol abuse 04/23/2011 ??? Chronic abdominal pain 04/23/2011 ??? Varicose veins 04/23/2011 ??? Superficial thrombophlebitis 04/23/2011 ??? S/P gastric bypass 04/23/2011 ??? Hx of cancer of endometrium 07/26/2011 ??? Unspecified asthma(493.90) ([facility]) 08/19/2011 ??? Macrocytosis without anemia 04/22/2012 ??? Asthma ([facility]) allergic triggers Past Surgical History Procedure Laterality Date ??? Gastric bypass surgery 2002 ??? [place] tooth extraction ??? Eye surgery PRK ??? David and bso endometrial cancer ??? Cholecystectomy ??? Lipectomy 2004 ??? Ovary removal ??? Hysterectomy Social History: . 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 Allergies Allergen Reactions ??? Flovent [Fluticasone] laryngitis [...] Tab Take 1 tablet by mouth nightly. 100 tablet 1 ??? multivitamin (THERAGRAN) tablet Take 2 tablets by mouth daily (every 24 hours). No facility-administered medications prior to visit. Family [...] is negative. OBJECTIVE: Vital Signs: height is 1.651 m (5' 5) and weight is 102.059 kg (225 lb). Her blood pressure is 128/88 and her pulse is 68. , Body mass index is 37.44 kg/(m^2). General: Overweight female, alert, in NAD. HEENT: [...] gait without edema, lesions, or deformity. Pelvic: Deferred. Rectal: Deferred. Neuro: CN II-XII, motor & sensory function all intact. Psychiatric: Alert & oriented with normal affect and insight. ASSESSMENT: 1. Encounter Diagnoses Name Primary? Routine physical examination Yes ??? Diabetes type 2, controlled ??? S/P gastric bypass PLAN: 1. Physical exam, clinical breast exam were completed. Recommend monthly self breast exam and annualmammogram. Reviewed labs drawn prior to visit. Followup in 6 months. Increase iron, OK to refill maxair 2. Orders Placed This Encounter Procedures ??? MM Mammogram Screening Bilateral W Cad ??? Alanine Aminotransferase ??? Hemoglobin A1C Glycosylated ??? Complete Blood Count W/Diff ??? Ferritin ??? Calcium ??? Parathyroid Hormone Intact Orders Placed This Encounter Medications ??? DISCONTD: pirbuterol (MAXAIR) 200 mcg/Inhalation inhaler Sig: Inhale 2 puffs 4 times daily as needed for Wheezing. ??? pirbuterol (MAXAIR) 200 mcg/Inhalation inhaler Sig: Inhale 2 puffs 4 times daily as needed for Wheezing. Dispense: 1 Inhaler [...] as of this encounter Visit Diagnoses Diagnosis Routine physical examination - Primary Routine general medical examination at a [facility] care facility Diabetes type 2, controlled (HRC) Type II or unspecified type diabetes rod litus without mention of complication, not stated as uncontrolled S/P gastric bypass Bariatric surgery status documented in this encounter Care Teams Wool Grower Relationship Specialty Start Date End Date Olamide Rodney MD PCP - General 09/25/10 01/11/21 [address] [place] [address] documented as of this encounter
--- OUTSIDE RECORDS SUMMARY | 2022-01-29 17:50 | XMS_ITS | Encounter Summary ---
:1960 Author Organization [email or web address] Address [address] [place] [address] Care Team Providers Name Role Phone Olamide Rodney MD Primary Care Provider Encounter Details Date Type Department Care Team Description 03/15/2015 Lab Visit [facility] S/P gastric bypass; [address] [facility] Diabetes type 2, [place] [address] Social History Tobacco Use Types Packs/Day Years Used Date Smoking Tobacco: Never Alcohol Use Standard Drinks/Week Comments Yes 0 (1 standard drink = 0.6 oz pure alcoho l) mod Sex Assigned at Date Recorded Not on file documented as of this encounter Plan of Treatment Not on filedocumented as of this encounter Procedures Procedure Name Priority Date/Time Associated Comments Diagnosis INTACT PTH Routine 03/15/2015 7:57 AM S/P gastric bypass Res ults for this CDT procedure are i n the results section. COMPLETE BLOOD Routine 03/15/2015 7:57 AM S/P gastric bypass R esults for this COUNT-W/DIFF CDT procedure are i n the results section. DIFFERENTIAL Routine 03/15/2015 7:57 AM Results f or this CDT procedure are i n the results section. FERRITIN Routine 03/15/2015 7:57 AM S/P gastric bypass Res ults for this CDT procedure are i n the results section. HGB A1C Routine 03/15/2015 7:57 AM Diabetes type 2, Resul ts for this CDT controlled (HRC) procedure a re in the results section. ALT (SGPT) Routine 03/15/2015 7:57 AM S/P gastric bypass Res ults for this CDT procedure are i n the results section. CALCIUM Routine 03/15/2015 7:57 AM S/P gastric bypass Res ults for this CDT procedure are i n the results section. documented in this encounter Results Differential (03/15/2015 7:57 AM CDT) Analysis Performed At Patho logist Time Signature Absolute 3.9 1.8 - 8.0 HP CONVERSION Neutrophils k/cmm Absolute 2.1 1.1 - 4.0 HP CONVERSION Lymphocytes k/cmm Absolute 0.5 0.2 - 0.8 HP CONVERSION Monocytes k/cmm Absolute 0.3 0.0 - 0.5 HP CONVERSION Eosinophils k/cmm Absolute 0.1 0.0 - 0.2 HP CONVERSION Basophils k/cmm Immature 0.1 0.0 - 0.5 HP CONVERSION Granulocytes % Specimen Anatomical Collection Method Collection Time Receive d Time (Source) Location / / Volume Laterality 03/15/2015 7:57 AM 5 7:57 CDT AM CDT Narrative HP CONVERSION - 03/15/2015 8:09 AM CDT Performed at [facility], [address] [place] [address] Olamide Rodney MD LAB_1 Performing Organization Address City/[facility] Phon e Number HP CONVERSION (ABNORMAL) Intact PTH (03/15/2015 7:57 AM CDT) athologist Signature PTH 113 (H) 10 - 100 HP CONVERSION pg/mL Specimen Anatomical Collection Method Collection Time Receive d Time (Source) Location / / Volume Laterality 03/15/2015 7:57 AM 5 3:26 CDT PM CDT Narrative HP CONVERSION - 03/15/2015 6:13 PM CDT Performed at [address] [address] Olamide Rodney MD LAB_1 Performing Organization Address City/[facility] Phon e Number HP CONVERSION Calcium (03/15/2015 7:57 AM CDT) athologist Signature Calcium 9.5 8.5 - 10.5 HP CONVERSION mg/dL Specimen Anatomical Collection Method Collection Time Receive d Time (Source) Location / / Volume Laterality 03/15/2015 7:57 AM 5 7:57 CDT AM CDT Narrative HP CONVERSION - 03/15/2015 9:08 AM CDT Performed at [facility], [address] [place] [address] Olamide Rodney MD LAB_1 Performing Organization Address [facility] Phon e Number HP CONVERSION Ferritin (03/15/2015 7:57 AM CDT) athologist Signature Ferritin Serum 18 10 - 291 HP CONVERSION ng/mL Specimen Anatomical Collection Method Collection Time Receive d Time (Source) Location / / Volume Laterality 03/15/2015 7:57 AM 5 1:04 CDT PM CDT Narrative HP CONVERSION - 03/15/2015 2:41 PM CD[place] [address] Olamide Rodney MD LAB_1 Performing Organization Address City/[facility] Phon e Number HP CONVERSION Complete Blood Count W/Diff (03/15/2015 7:57 AM CDT) athologist Signature White Blood Cell 6.9 3.8 - 11.0 HP CONVERSIO N Count k/cmm Red Blood Cell 4.12 3.70 - HP CONVERSION Count 5.20 m/cmm Hemoglobin 13.5 11.8 - HP CONVERSION 15.5 g/dL Hematocrit 40.4 35.0 - HP CONVERSION 46.0 % Mean Corpuscular 98.1 80.0 - HP CONVERSION Volume 100.0 fL RDW 13.6 11.0 - HP CONVERSION 15.0 % Platelet Count 254 140 - 450 HP CONVERSION k/cmm Specimen Anatomical Collection Method Collection Time Receive d Time (Source) Location / / Volume Laterality 03/15/2015 7:57 AM 5 7:57 CDT AM CDT Narrative HP CONVERSION - 03/15/2015 8:09 AM CDT Performed at [facility], [address] [place] [address] Olamide Rodney MD LAB_1 Performing Organization Address City/State/ZIP Code Phon e Number HP CONVERSION (ABNORMAL) Hgb A1c (03/15/2015 7:57 AM CDT) P athologist Signature HGB A1C 6.0 (H) 4.0 - 5.6 % HP CONVERSION Specimen Anatomical Collection Method Collection Time Receive d Time (Source) Location / / Volume Laterality 03/15/2015 7:57 AM 5 1:01 CDT PM CDT Narrative HP CONVERSION - 03/15/2015 3:04 PM CDT Performed at [facility], [address] [place] [address] Olamide Rodney MD LAB_1 Performing Organization Address City/[facility] Code Phon e Number HP CONVERSION ALT (SGPT) (03/15/2015 7:57 AM CDT) [facility] gist Method Time Signature Alanine 34 4 - 55 HP CONVERSION Aminotransferase U/L Specimen Anatomical Collection Method Collection Time Receive d Time (Source) Location / / Volume Laterality 03/15/2015 7:57 AM 5 7:57 CDT AM CDT Narrative HP CONVERSION - 03/15/2015 9:08 AM CDT Performed at [facility], [address] [place] [address] Olamide Rodney MD LAB_1 Performing Organization Address City/[facility] Phon e Number HP CONVERSION documented in this encounter Visit Diagnoses Diagnosis S/P gastric bypass Bariatric surgery status Diabetes type 2, controlled (HRC) Type II or unspecified type diabetes rod litus without mention of complication, not stated as uncontrolled documented in this encounter Care Teams Pencils Washer Relationship Specialty Start Date End Date Olamide Rodney MD PCP - General 09/25/10 01/11/21 [address] [place] [address] documented as of this encounter
--- OUTSIDE RECORDS SUMMARY | 2022-01-29 17:50 | XMS_ITS | Encounter Summary ---
:1960 Author Organization [employer] Address [address] [place] [address] Care Team Providers Name Role Phone Olamide Rodney MD Primary Care Provider Reason for Visit Reason Comments Follow-up Encounter Details Date Type Department Care Team Description 03/22/2015 Office Visit [facility] Olamide Rodney type 2, controlled (Primary Dx); Hayley Antoine MD S/P gastric bypass; [address] Embolism and thrombosis of u nspecified site; [place] [address] Blvd Congenital deficiency of other clotting factors; [phone] [place], [place] Need for i nfluenza vaccination; [address] Heel pain, right; [phone] (Wo rk) Left foot pain Social History Tobacco Use Types Packs/Day Years Used Date Smoking Tobacco: Never Alcohol Use Standard Drinks/Week Comments Yes 0 (1 standard drink = 0.6 oz pure alcoho l) mod Sex Assigned at Date Recorded Not on file documented as of this encounter Last Filed Vital Signs Vital Sign Reading Time Taken Comments Blood Pressure 138/84 03/22/2015 11:50 AM CDT Pulse 68 03/22/2015 11:50 AM CDT Temperature - - Respiratory Rate - - Oxygen Saturation - - Inhaled Oxygen Concentration - - Weight 108.4 kg (239 lb) 03/22/2015 11:50 AM CDT Height - - Body Mass Index 39.77 09/12/2014 8:03 AM CDT documented in this encounter Progress Notes Olamide Rodney MD - 03/26/2015 6:46 PM CDT SUBJECTIVE: 54 y.o. -year-old female followup type 2 diabetes mellitus, gastric bypass. She has had type 2 diabetes mellitus. She is status post gastric bypass. Her weight has increased a fair amount. About 25 pounds. Her A1c has been fairly stable, recent A1c is 6.0. She does not check the blood glucose. She is not on any medications for diabetes. She would like a jump start weight loss. She is struggling with heel pain. Started in November. Thinks his plantar fasciitis. Wearing inserts. She is status post gastric bypass. She does take vitamin B 12 and multivitamin daily. She has some iron in the multivitamin but does not take it separate iron supplement. She has never had any difficulty with low ferritin. She has had good labs in the past with no significant nutritional deficiencies. Has trouble sleeping chronically. She admits she does drink alcohol. She feels it may be getting a bit out of control. She does not want any assistance with this today. Data: Lab Results Component Value Date/Time HGB A1C 6.0* 03/15/2015 0757 HGB A1C 5.8* 09/02/2014 1102 HGB A1C 5.4 03/10/2014 0903 Lab Results Component Value Date/Time LDL CALCULATED 79 09/02/2014 1102 Lab Results Component Value Date/Time CREATININE SERUM 0.8 09/02/2014 1102 Lab Results Component Value Date/Time ALANINE AMINOTRANSFERASE 34 03/15/2015 0757 No results found for: CK Lab Results Component Value Date/Time SODIUM 141 09/02/2014 1102 POTASSIUM 3.9 09/02/2014 1102 CHLORIDE 102 09/02/2014 1102 BICARBONATE 34* 09/02/2014 1102 Lab Results Component Value Date/Time MICROALBUMIN URINE <6.0 09/02/2014 1102 Allergies Allergen Reactions ??? Flovent [Fluticasone] laryngitis [...] cancer of endometrium 07/26/2011 ??? Unspecified asthma(493.90) ([facility]) 08/19/2011 ??? Macrocytosis without anemia 04/22/2012 ??? Asthma (ACG) allergic triggers Past Surgical History Procedure Laterality Date ??? Gastric bypass surgery 2002 ??? [facility] tooth extraction ??? Eye surgery PRK ??? David and bso endometrial cancer ??? Cholecystectomy ??? Lipectomy 2004 ??? Ovary removal ??? Hysterectomy Habits: reports that she has never smoked. She has never used smokeless tobacco. Social History: . OBJECTIVE: Vital Signs: BP 138/84 mmHg Pulse 68 Wt 108.41 kg (239 lb) General: Obese white female Eyes: No icterus or injection. Neck: Supple, without masses, lymphadenopathy or tenderness. [...] radial artery and dorsalis pedis pulses bilateral. ASSESSMENT: Encounter Diagnoses Name Primary? Diabetes type 2, controlled ([facility]) Yes ??? S/P gastric bypass ??? Deep Venous Thrombosis ??? Factor V Leiden ??? Need for influenza vaccination ??? Heel pain, right ??? Left foot pain PLAN: 1. Continue followup every 6 months. Encouraged to continue to be alcohol free. She cannot be notes is anything we can do to help her. We will do multiple labs including a peripheral smear in 6 months.Flu shot. X-ray of foot and see podiatry. Multiple labs in 6 months. 2. Orders Placed This Encounter Procedures ??? XR Foot * Left 3+ Views (Standard) ??? Fluarix Influenza QIV (36+ mos) ??? Fluarix Influenza QIV (36+ mos) ??? Cholesterol Fraction-LDLD If Trig High ??? Alanine Aminotransferase ??? TSH And Free T4 (FRT4 If TSH Abnorm) ??? Hemoglobin A1C Glycosylated ??? Microalbumin Urine Random ??? Complete Blood Count W/Diff ??? Ferritin ??? Creatinine ??? BUN ??? Electrolytes (NA, K, CL, Bicarb) ??? Vitamin D (In house) ??? Calcium ??? Vitamin B-12 ??? PODIATRY CONSULT ADULT (AMB) Lab Frequency Next Occurrence Fluarix Influenza QIV (36+ mos) Once 09/20/2015 Cholesterol Fraction-LDLD If Trig High Once 09/20/2015 Alanine Aminotransferase Once 09/20/2015 TSH And Free T4 (FRT4 If TSH Abnorm) Once 09/20/2015 Hemoglobin A1C Glycosylated Once 09/20/2015 Microalbumin Urine Random Once 09/20/2015 Complete Blood Count W/Diff Once 09/20/2015 Ferritin Once 09/20/2015 Creatinine Once 09/20/2015 BUN Once 09/20/2015 Electrolytes (NA, K, CL, Bicarb) Once 09/20/2015 Vitamin D (In house) Once 09/20/2015 Calcium Once 09/20/2015 Vitamin B-12 Once 09/20/2015 No orders of the defined types were placed in this encounter. There are no Patient Instructions on file for this visit. The patient was discharged ambulatory and in stable condition. *SH~DNS~SOAP documented in this encounter Plan of Treatment Not on filedocumented as of this encounter Visit Diagnoses Diagnosis Diabetes type 2, controlled ([facility]) - Prim mackenzie Type II or unspecified type diabetes rod litus without mention of complication, not stated as uncontrolled S/P gastric bypass Bariatric surgery status Embolism and thrombosis of unspecified s ite Congenital deficiency of other clotting factors Need for influenza vaccination Need for prophylactic vaccination and in oculation against influenza Heel pain, right Left foot pain Pain in limb documented in this encounter Care Teams Dot Compliance Specialist Relationship Specialty Start Date End Date Olamide Rodney MD PCP - General 09/25/10 01/11/21 [address] [place] [address] documented as of this encounter
--- OUTSIDE RECORDS SUMMARY | 2022-01-29 17:50 | XMS_ITS | Encounter Summary ---
:1960 Author Organization [employer] Address [address] [place] [address] Care Team Providers Name Role Phone Olamide Rodney MD Primary Care Provider Reason for Referral Specialty Diagnoses / Procedures Referred By Contact [place]er [place] [address] [place] [address] Referral ID Status Reason Start Date Expiration Date Visits Requ ested Visits Authorized Reason for Visit Reason Comments Ankle Problem Encounter Details Date Type Department Care Team Description 03/28/2015 Initial Consult [place] [facility] Kami Spaulding P T Achilles tendinitis Therapy [address] right [facility] [address] [place], [place] [address] [phone] Social History Tobacco Use Types Packs/Day Years Used Date Smoking Tobacco: Never Alcohol Use Standard Drinks/Week Comments Yes 0 (1 standard drink = 0.6 oz pure alcoho l) mod Sex Assigned at Date Recorded Not on file documented as of this encounter Progress Notes Kami Spaulding, PT - 03/28/2015 1:36 PM CDT Date of Service: 03/28/2015 Pt : 1960 [facility] Physical Therapy Ankle Evaluation/Plan of Care Initial Certification Period: 03/28/2015 to 05/27/15 Referring Provider: Ronal Hinojosa Visit Diagnosis: Diagnosis ICD-10-CM ICD-9-CM 1. Achilles tendinitis of right lower extremity M76.61 726.71 Precautions: Diabetes Type II, s/p gastric bypass, DVT history, factor V Leiden, endometrial CA Orders: Evaluate & treat, iontophoresis, graston techniques. Onset/Referral Date: SUBJECTIVE: Patient reports onset of right heel pain in November without specific provocation. Notes that symptoms worsened in December while on vacation. She tried shoe inserts without change. Patient Therapy Goals:Resume previous level of activity symptom free. Past Medical History: Patient has a past medical history of Deep Venous Thrombosis (10/02/2005); Depression NOS (10/02/2005); Factor V Leiden (08/08/2010); Hernia Hiatal (08/08/2010); Lumbar Disc Degeneration (08/08/2010); Diabetes type 2, controlled ([facility]) (04/23/2011); Chronic insomnia (04/23/2011); Actinickeratoses (04/23/2011); Endometrial cancer ([facility]) (04/23/2011); Nondependent alcohol abuse (04/23/2011);Chronic abdominal pain (04/23/2011); Varicose veins (04/23/2011); Superficial thrombophlebitis (04/23/2011); S/P gastric bypass (04/23/2011); cancer of endometrium (07/26/2011); Unspecified asthma(493.90) ([facility]) (08/19/2011); Macrocytosis without anemia (04/22/2012); and Asthma ([facility]). Previous Treatment: orthotics: Benefited from previous treatment: no Pain details: Current pain intensity level: 3/10 Pain location: Right posterior heel Additional Symptoms: None Aggravating factors:prolonged weight bearing, going down hills, going down stairs. 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 Stands with right LE in external rotation. Heel bump noted on the right. ROM: AROM Left 10 degrees dorsiflexion 70 degrees plantarflexion Right 5 degrees dorsiflexion 70 degrees plantarflexion Strength: Bilateral normal Joint Mobility: Normal bilaterally Palpation: Right tender: insertion of gastroc/soleus into the calcaneus Special Tests:(+ is a positive finding, - is a negative finding) Right: Dacia's sign: negative [place] test: negative Functional Tests: patient able to do double toe rise with pain in the forefoot. Gait Exam: Decreased toe off PT Outcomes: PT Program: Musculoskeletal - Ankle Foot & Ankle Ability Measure - ADL (0-100%, 100% being best): 79 % Today's Intervention/Charges: Physical Therapy Evaluation was completed and the patient was educated on the condition, planned therapy intervention and expectations from treatment. Therapeutic exercise x 10 minutes: Patient instructed in and performed NWB and weight bearing gastroc/soleus stretch. Ultrasound: US at 100% at 1.0 w/cm squared for 8 minutes to achilles insertion in prone (total time = 10 min) Education/Handouts: Diagnosis Education, use of ice Timed Code Treatment Minutes: 20 Total Treatment Minutes: 40 ASSESSMENT Therapist Impression/Summary: Patient presents with insertional achilles tendonitis on the right. Recommendations/Equipment: No additional recommendations at this time Significant Impairments: Pain, Muscle tightness/decreased flexibility, Muscle weakness Functional Limitations: difficulty with gait and difficulty with stairs Goals/Functional Outcomes: HEP/Independent Management: Demonstrate independence with HEP and self- management following each treatment session Ambulation: Ambulate with normal gait pattern on uneven surfaces with minimal to no symptoms/limp in4-6 weeks. Ascend/descend stairs independently with reciprocal pattern with minimal to no symptoms and improvedlower extremity alignment in 4-6 weeks. Barriers to Goal Achievement or Learning: none Prognosis: Good PLAN Planned Intervention/Education: ADL/Self Management, Manual Therapy, Therapeutic Exercise, Ultrasound Frequency: 2 x week Duration: 30 days Discharge Plan: Patient will be discharged from therapy when goals are achieved or patient plateaus in progress. Informed Consent: Patient and/or family in agreement with the care plan. Plan for Next Treatment: Plan to add manual therapy next treatment. The corporate giving manager is completed by the therapist and the referring clinician's electronic signature certifies medical necessity for the plan above. documented in this encounter Plan of Treatment Scheduled Referrals Name Type Priority Associated Diagnoses Order S [facility] Physical Therapy Referral Routine Achilles tendinitis of O rdered: 03/28/2015, right lower extremity s: 03/28/2015 documented as of this encounter Visit Diagnoses Diagnosis Achilles tendinitis of right lower extre mity Achilles bursitis or tendinitis documented in this encounter Care Teams Memorial Counselor Relationship Specialty Start Date End Date Olamide Rodney MD PCP - General 09/25/10 01/11/21 [address] [place] [address] documented as of this encounter
--- OUTSIDE RECORDS SUMMARY | 2022-01-29 17:51 | XMS_ITS | Encounter Summary ---
:1960 Author Organization [employer] Address [address] [place] [address] Care Team Providers Name Role Phone Olamide Rodney MD Primary Care Provider Reason for Visit Reason Comments Annual Exam Encounter Details Date Type Department Care Team Description 09/08/2013 Office Visit [facility] Olamide Rodney physical examination (Primary Dx); Hayley Antoine MD Macrocytosis without anemia; [address] [place] [address] Elevated transaminase level; [place] [address] Blvd Diabetes type 2, controlled; [phone] [place], [place] S/P gastri c bypass; [address] Menopause Social History Tobacco Use Types Packs/Day Years Used Date Smoking Tobacco: Never Alcohol Use Standard Drinks/Week Comments Yes 0 (1 standard drink = 0.6 oz pure alcoho l) mod Sex Assigned at Date Recorded Not on file documented as of this encounter Last Filed Vital Signs Vital Sign Reading Time Taken Comments Blood Pressure 126/82 09/08/2013 9:32 AM CDT Pulse 60 09/08/2013 9:32 AM CDT Temperature - - Respiratory Rate - - Oxygen Saturation - - Inhaled Oxygen Concentration - - Weight 96.6 kg (213 lb) 09/08/2013 9:32 AM CDT Height 164.5 cm (5' 4.75) 09/08/2013 9:32 AM CDT Body Mass Index 35.72 09/08/2013 9:32 AM CDT documented in this encounter Patient Instructions Patient InstructionsLorenzafabrice Eva Ray - 09/08/2013 10:21 AM CDT Have non fasting labs in mid February. Please call [phone] to schedule your lab appointment. Mammogram [phone] Bone Density [phone] documented in this encounter Progress Notes Olamide Rodney MD - 09/08/2013 11:03 AM CDT Preventive Physical Exam: 09/08/2013 SUBJECTIVE: 52 y.o. year old female for a physical exam. Zostavax 2008. Pneumonia vaccine 1996 &2005. Adacel 2011. Had seasonal flu shot. Was diagnosed with endometrial cancer, still gets Pap and exam from Dr. Madrid, just there this morning. Had the DAVID and BSO. She remotely had a DVT on control pills. She is sexually active and denies risk for STD. Her had vasectomy. She does do self-breast exam. No history of breast biopsy. Gets annual mammograms. She is working out at the gym 3times per week 45-60 minutes doing weights and cardio. Weight is stable for 4 years now. Bone density approximately 2008 outside [facility], due in 5 years for repeat. Colonoscopy 2009 outside [facility], patient states it was normal, does have family history of colon cancer in mother. She has type 2 diabetes mellitus which became quiescent after her gastric bypass. Her current weightis stable. Continue macrocytosis. Also mild elevation in ALT. Likely secondary to daily alcohol use. The patient denies that this is a problem for her. We discussed further evaluation through hematology. She declines, but does seem reasonable. I recommend decreasing alcohol consumption. Get occasional small red blood per rectum when straining with bowel movement. Lab Results Component Value Date/Time HGB A1C 5.3 09/02/2013 1026 HGB A1C 5.8 03/02/2013 1009 HGB A1C 5.4 08/12/2012 1014 Hemoglobin A1C Rapid 5.2 03/31/2012 1013 Immunization History Administered Date(s) Administered ??? FLUARIX INFLUENZA QIV (36+ MOS) 03/08/2013 ??? Influenza TIV (36+ mos) 03/04/2012 ??? [...] Degeneration 08/08/2010 ??? Diabetes type 2, controlled ([facility]) 04/23/2011 ??? Chronic insomnia 04/23/2011 ??? Actinic keratoses 04/23/2011 ??? Endometrial cancer ([facility]) 04/23/2011 ??? Nondependent alcohol abuse 04/23/2011 ??? Chronic abdominal pain 04/23/2011 ??? Varicose veins 04/23/2011 ??? Superficial thrombophlebitis 04/23/2011 ??? S/P gastric bypass 04/23/2011 ??? Hx of cancer of endometrium 07/26/2011 ??? Unspecified asthma 08/19/2011 ??? Macrocytosis without anemia 04/22/2012 Past Surgical History Procedure Laterality Date ??? Gastric bypass surgery 2003 ??? [place] tooth extraction ??? Eye surgery PRK ??? David and bso endometrial cancer ??? Cholecystectomy ??? Lipectomy 2004 Social History: . 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 Allergies Allergen Reactions ??? Flovent (Fluticasone) laryngitis ??? Other LW Other1: -NONE KNOWN ??? Oxycodone-Acetaminophen LW Reaction: Itching, Pruritis ??? Review Contrast Media LW CM1: >>> NO CONTRAST ADVERSE REACTION <<< Reaction : ??? Review Food Intolerance LW FI1: NO KNOWN FOOD ALLERGIES OR INTOLERANCES LW FI2: NO KNOWN FOOD ALLERGIES OR INTOLERANCES Outpatient Prescriptions Prior to Visit Medication Sig Dispense Refill ??? aspirin 81 mg tablet Take 2 tablets by mouth daily (every 24 hours). LW Addl Instr:hold until lovenox dc'd 3 ??? BIOTIN ORAL Take by mouth. [...] Depression Brother ??? Colon Polyps Maternal Aunt Habits: reports that she has never smoked. She has never used smokeless tobacco. reports that she drinks about 10.5 ounces of alcohol per week. reports that she does not use illicit drugs. Review of Systems: With the exception of any items noted above, the remainder of the complete ROS is negative. OBJECTIVE: Vital Signs: height is 1.645 m (5' 4.75) and weight is 96.616 kg (213 lb). Her blood pressure is 126/82 and her pulse is 60. , Body mass index is 35.7 kg/(m^2). General: Overweight female, alert, in NAD. [...] Name Primary? Routine physical examination Yes ??? Macrocytosis without anemia ??? Elevated transaminase level ??? Diabetes type 2, controlled ??? S/P gastric bypass ??? Menopause PLAN: 1. Physical exam, clinical breast exam were completed. Recommend monthly self breast exam and annualmammogram. Schedule bone density. Sign up for MyChart. Reviewed labs drawn prior to visit. Recommend decrease alcohol intake. Discussed macrocytosis again.Most likely etiology is from her daily alcohol consumption. Discussed would consider further workup through hematology. She does not wish to do that at this time, which is reasonable. Followup in 6 months. If rectal bleeding continues, or becomes anemic, will do colonoscopy this year. Labs and diabetic recheck in February. Repeat CBC and ALT then also. Lab Frequency Next Occurrence Microalbumin Urine Random Once 03/07/2014 Hemoglobin A1C Glycosylated Once 03/07/2014 Complete Blood Count W/Diff Once 03/07/2014 Aspartate Aminotransferase Once 03/07/2014 Alanine Aminotransferase Once 03/07/2014 MM Mammogram Screening Bilateral W Cad Once 09/23/2013 Ambulatory referral for DXA Scan Once 12/09/2013 2. Orders Placed This Encounter Procedures ??? MM Mammogram Screening Bilateral W Cad ??? Microalbumin Urine Random ??? Hemoglobin A1C Glycosylated ??? Complete Blood Count W/Diff ??? Aspartate Aminotransferase ??? Alanine Aminotransferase ??? Ambulatory referral for DXA Scan No orders of the defined types were placed in this encounter. Patient Instructions Have non fasting labs in mid February. Please call [phone] to schedule your lab appointment. Mammogram [phone] Bone Density [phone] General preventive health measures were reviewed with patient. Labs: We will mail lab results to patient or contact patient if needed by phone fAnd inor significant abnormals. *SH~DNS~PEF documented in this encounter Plan of Treatment Not on filedocumented as of this encounter Visit Diagnoses Diagnosis Routine physical examination - Primary Routine general medical examination at a health care facility Macrocytosis without anemia Other specified diseases of blood and bl ood-forming organs Elevated transaminase level Nonspecific elevation of levels of trans aminase or lactic acid dehydrogenase (LDH) Diabetes type 2, controlled ([facility]) Type II or unspecified type diabetes rod litus without mention of complication, not stated as uncontrolled S/P gastric bypass Bariatric surgery status Menopause Symptomatic menopausal or female climact андрей states documented in this encounter Care Teams Resource Coordinator Relationship Specialty Start Date End Date Olamide Rodney MD PCP - General 09/25/10 01/11/21 [address] [place] [address] documented as of this encounter
--- OUTSIDE RECORDS SUMMARY | 2022-01-29 17:51 | XMS_ITS | Encounter Summary ---
:1960 Author Organization [employer] Address [address] [place] [address] Care Team Providers Name Role Phone Olamide Rodney MD Primary Care Provider Reason for Visit Reason Comments Diabetes SKIN LESION Encounter Details Date Type Department Care Team Description 04/21/2012 Office Visit [facility] Olamide Rodney type 2, controlled (Primary Dx); Hayley Antoine MD Chronic insomnia; [address] S/P gastric bypass; [place] [address] Blvd Nondependent alcohol abuse; [phone] [place], [place] [facility] [place] [address] Social History Tobacco Use Types Packs/Day Years Used Date Smoking Tobacco: Never Alcohol Use Standard Drinks/Week Comments Yes 0 (1 standard drink = 0.6 oz pure alcoho l) mod Sex Assigned at Date Recorded Not on file documented as of this encounter Last Filed Vital Signs Vital Sign Reading Time Taken Comments Blood Pressure 112/74 04/21/2012 9:50 AM CDT Pulse 66 04/21/2012 9:50 AM CDT Temperature - - Respiratory Rate - - Oxygen Saturation - - Inhaled Oxygen Concentration - - Weight 93 kg (205 lb) 04/21/2012 9:50 AM CDT Height - - Body Mass Index 34.38 08/19/2011 12:03 PM [facility] [employer] documented in this encounter Patient Instructions Patient InstructionsOlamide Rodney MD - 04/21/2012 10:07 AM CDT Have fasting labs 10/06/2011. Please call [phone] to schedule your lab appointment. documented in this encounter Progress Notes Olamide Rodney MD - 04/22/2012 8:50 AM CDT SUBJECTIVE: 51 y.o. -year-old female followup type 2 diabetes mellitus, gastric bypass. She still not sure why she has to followup twice a year. She has had type 2 diabetes mellitus. She is status post gastric bypass. Her weight has remained fairly stable. Her A1c has been fairly stable, recent A1c 5.8. She does not check the blood glucose. Sheis not on any medications for diabetes. She is status post gastric bypass. She does take vitamin B 12 and multivitamin daily. She has some iron in the multivitamin but does not take it separate iron supplement. She has had good labs in the past with no significant nutritional deficiencies. She has had a minor macrocytosis on labs over the last year to 2 years. She admits to drinking alcohol daily. She feels she is drinking less than she used to but does drink multiple beverages each day.She does not feel it is a problem is not going to quit. She does not want a workup for the macrocytosis at this time. She has had a history of actinic keratoses. She has an area of flaking on the right forehead. Data: Lab Results Component Value Date/Time HGB A1C 5.8 08/05/2011 07:11 HGB A1C 5.6 03/18/2011 12:16 HGB A1C 5.4 08/08/2010 11:03 Lab Results Component Value Date/Time LDL Calculated 72 08/05/2011 07:11 Lab Results Component Value Date/Time Creatinine Serum 0.7 08/05/2011 07:11 Lab Results Component Value Date/Time Alanine Aminotransferase 22 08/05/2011 07:11 No results found for this basename: ck Lab Results Component Value Date/Time Sodium 141 08/05/2011 07:11 Potassium 4.2 08/05/2011 07:11 Chloride 103 08/05/2011 07:11 Bicarbonate 33 08/05/2011 07:11 Lab Results Component Value Date/Time Microalbumin Urine 9.0 03/31/2012 10:17 Allergies Allergen Reactions ??? Contrast Media LW CM1: >>> NO CONTRAST ADVERSE REACTION <<< Reaction : ??? Other LW Other1: -NONE KNOWN ??? Oxycodone-acetaminophen LW Reaction: Itching, Pruritis ??? Food Intolerance LW FI1: NO KNOWN FOOD ALLERGIES OR INTOLERANCES LW FI2: NO KNOWN FOOD ALLERGIES OR INTOLERANCES ??? Flovent (Fluticasone) laryngitis Outpatient prescriptions prior to encounter Medication Sig Dispense Refill ??? aspirin 81 mg tablet Take 2 tablets by mouth daily (every 24 hours). LW Addl Instr:hold until lovenox dc'd 3 ??? Calcium-Vitamin D3-Vitamin K (VIACTIV) 500-200-40 mg-unit-mcg Chew 3 times daily. ??? cyanocobalamin (VITAMIN B-12) 1,000 mcg tablet Take by mouth twice a week. ??? multivitamin (THERAGRAN) tablet Take 1 tablet by mouth daily (every 24 hours). ??? pirbuterol (MAXAIR AUTOHALER) 200 mcg/Inhalation inhaler Take 1-2 puffs by mouth every 4 hours as needed. LW Addl Instr:Indicated for: Asthma 14 12 Past Medical History Diagnosis Date ??? Deep Venous Thrombosis 10/02/2005 ??? Depression NOS 10/02/2005 ??? Factor V Leiden 08/08/2010 ??? Hernia Hiatal 08/08/2010 ??? Lumbar Disc Degeneration 08/08/2010 ??? Diabetes type 2, controlled 04/23/2011 ??? Chronic insomnia 04/23/2011 ??? Actinic keratoses 04/23/2011 ??? Endometrial cancer 04/23/2011 ??? Nondependent alcohol abuse 04/23/2011 ??? Chronic abdominal pain 04/23/2011 ??? Varicose veins 04/23/2011 ??? Superficial thrombophlebitis 04/23/2011 ??? S/P gastric bypass 04/23/2011 ??? Hx of cancer of endometrium 07/26/2011 ??? Unspecified asthma 08/19/2011 Past Surgical History Procedure Date ??? Gastric bypass surgery LW Problem: Gastric Bypass S/p LW Onset: 09/2002 ??? Cosmetic surgery LW Problem: Cosmetic Surgery For Unaccept Appearance LW Modifier: abdominal plasty LW Onset: 06/27 ??? Doss tooth extraction ??? Eye surgery PRK ??? David and bso endometrial cancer ??? Cholecystectomy Habits: reports that she has never smoked. She has never used smokeless tobacco. Social History: . Recently quit her job. She went back to school at [employer]. 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 OBJECTIVE: Vital Signs: BP 112/74 Pulse 66 Wt 92.987 kg (205 lb) General: Obese white female Eyes: No [...] and affect. ASSESSMENT: Encounter Diagnoses Name Primary? Diabetes type 2, controlled Yes ??? Chronic insomnia ??? S/P gastric bypass ??? Nondependent alcohol abuse ??? Actinic keratoses PLAN: 1. Continue followup every 6 months. Next visit will be in mid September 2012. Labs orders as noted below. She wishes the minimum labs needed. Continue multiple supplements. Encourage weight loss. Encouraged decreasing alcohol consumption. We discussed macrocytosis. This is likely secondary to her daily alcohol use. After discussion she does not want a further evaluation. Status post cryotherapy x3 to the right forehead. 2. Orders Placed This Encounter Procedure ??? Ferritin ??? Cholesterol Fraction-LDLD If Trig High ??? Alanine Aminotransferase ??? TSH And Free T4 (FRT4 If TSH Abnorm) ??? Hemoglobin A1C Glycosylated ??? Complete Blood Count W/Diff ??? Creatinine ??? Electrolytes (NA, K, CL, Bicarb) ??? Vitamin D (In house) ??? Calcium ??? Vitamin B-12 ??? DESTRUCT PREMALIGNANT 1ST LESION [id number] Lab Frequency Next Occurrence Ambulatory referral to Pulmonology Once 08/09/2011 Ferritin Once 10/05/2012 Cholesterol Fraction-LDLD If Trig High Once 10/05/2012 Alanine Aminotransferase Once 10/05/2012 TSH And Free T4 (FRT4 If TSH Abnorm) Once 10/05/2012 Hemoglobin A1C Glycosylated Once 10/05/2012 Complete Blood Count W/Diff Once 10/05/2012 Creatinine Once 10/05/2012 Electrolytes (NA, K, CL, Bicarb) Once 10/05/2012 Vitamin D (In house) Once 10/05/2012 Calcium Once 10/05/2012 Vitamin B-12 Once 10/05/2012 Orders Placed This Encounter Medication ??? cyanocobalamin (VITAMIN B-12) 1,000 mcg tablet Sig: Take by mouth once a week. Refill: 0 LW Unlisted clinician:UNKNOWN ??? Calcium-Vitamin D3-Vitamin K (VIACTIV) 500-200-40 mg-unit-mcg Chew Si times daily. Refill: 0 LW Unlisted clinician:Patient Initiated Therapy ??? multivitamin (THERAGRAN) tablet Sig: Take 2 tablets by mouth daily (every 24 hours). Dispense: 100 tablet Refill: 0 Patient Instructions Have fasting labs 10/06/2011. Please call [phone] to schedule your lab appointment. The patient was discharged ambulatory and in stable condition. *SH~DNS~SOAP documented in this encounter Plan of Treatment Not on filedocumented as of this encounter Visit Diagnoses Diagnosis Diabetes type 2, controlled ([facility]) - Prim mackenzie Type II or unspecified type diabetes rod litus without mention of complication, not stated as uncontrolled Chronic insomnia Insomnia, unspecified S/P gastric bypass Bariatric surgery status Nondependent alcohol abuse Alcohol abuse, unspecified Actinic keratoses Actinic keratosis documented in this encounter Care Teams Media Relations Coordinator Relationship Specialty Start Date End Date Olamide Rodney MD PCP - General 09/25/10 01/11/21 [address] [place] [address] documented as of this encounter
--- OUTSIDE RECORDS SUMMARY | 2022-01-29 17:51 | XMS_ITS | Encounter Summary ---
:1960 Author Organization [employer] Address [address], [place] [address] Care Team Providers Name Role Phone Olamide Rodney MD Primary Care Provider Reason for Visit Reason Comments Appt. Needed Encounter Details Date Type Department Care Team Description 01/21/2014 Telephone [facility] 650Venkat Dumont MD Appt. Needed Gastroenterology [address] [place] [address] [place], [place] [address] [phone] Social History Tobacco Use Types Packs/Day Years Used Date Smoking Tobacco: Never Alcohol Use Standard Drinks/Week Comments Yes 0 (1 standard drink = 0.6 oz pure alcoho l) mod Sex Assigned at Date Recorded Not on file documented as of this encounter Nursing Notes Eva Hollingsworth - 01/24/2014 10:40 AM CDT Called and left vm for pt advising her that order for colonoscopy had been placed Olamide Rodney MD - 01/24/2014 10:21 AM CDT colonoscopy ordered for ongoing rectal bleeding, which is why I presume she is calling to schedule it. Reid Yost - 01/21/2014 4:[address] Rodney, pt called in to schedule colonoscopy and there is no order would you be willing to enter an order for this? Thank you documented in this encounter Plan of Treatment Not on filedocumented as of this encounter Visit Diagnoses Diagnosis Bright red rectal bleeding - Primary Hemorrhage of rectum and anus documented in this encounter Care Teams Product Safety Head Relationship Specialty Start Date End Date Olamide Rodney MD PCP - General 09/25/10 01/11/21 [address] [place] [address] documented as of this encounter
--- OUTSIDE RECORDS SUMMARY | 2022-01-29 17:51 | XMS_ITS | Encounter Summary ---
:1960 Author Organization [employer] Address [address] [place] [address] Care Team Providers Name Role Phone Olamide Rodney MD Primary Care Provider Reason for Visit Reason Comments Follow-up Encounter Details Date Type Department Care Team Description 03/04/2012 [facility] [place] [facility] Hx of can cer of endometrium (Primary Dx); Obstetrics/Gynecolog MD Joni Need for prophylactic vaccination and in oculation against influenza y [address] [facility] [address] [place] [address] [place], [place] [address] [phone] Social History Tobacco Use Types Packs/Day Years Used Date Smoking Tobacco: Never Alcohol Use Standard Drinks/Week Comments Yes 0 (1 standard drink = 0.6 oz pure alcoho l) mod Sex Assigned at Date Recorded Not on file documented as of this encounter Last Filed Vital Signs Vital Sign Reading Time Taken Comments Blood Pressure 102/60 03/04/2012 7:43 AM CDT Pulse - - Temperature - - Respiratory Rate - - Oxygen Saturation - - Inhaled Oxygen Concentration - - Weight 93.9 kg (207 lb) 03/04/2012 7:43 AM CDT Height - - Body Mass Index 34.71 08/19/2011 12:03 PM [employer] documented in this encounter Patient Instructions Patient InstructionsCorinna Higginbotham MA - 03/04/2012 8:04 AM CDT Thank you for enrolling in [employer]. Please follow the instructions below to securely access your online medical record. [employer] allows you to send messages to your doctor, view your test results, renewyour prescriptions, schedule appointments, and more. How Do I Sign Up? 1. In your Internet browser, go to: [email or web address] 2. Click on the Sign Up Now link in the Sign In box. You will see the New Member Sign Up page. 3. Enter your [employer] Access Code exactly as it appears below. You will not need to use this code after you???ve completed the sign-up process. If you do not sign up before the expiration date, you must request a new code. [employer] Access Code: [email or web address] Expires: 04/03/12 08:04 AM 4. Enter your Social Security Number ([id number]) and Date of (mm/dd/yyyy) as indicated and click Submit. You will be taken to the next sign- up page. 5. Create a [employer] ID. This will be your [employer] login ID and cannot be changed, so think of one that is secure and easy to remember. 6. Create a [employer] password. You can change your password at any time. 7. Enter your Password Reset Question and Answer. This can be used at a later time if you forget your password. 8. Enter your e-mail address. You will receive e-mail notification when new information is availablein [employer]. 9. Click Sign Up. You can now view your medical record. Additional Information If you have questions, you can call [phone] to talk to our [employer] staff. Remember, [employer] is NOT to be used for urgent needs. For medical emergencies, dial 911. documented in this encounter Progress Notes Jeremy Madrid - 03/04/2012 8:07 AM CDT Progress Notes signed by Jeremy Madrid MD at 03/04/121425 Author: Jeremy Madrid MD Service: (none) Author Type: Physician Filed: 03/04/12 142 Note Time: 03/04/12806 Status: Signed Aircraft Engine Specialist: Jeremy Madrid MD (Physician) NAME: PATY LLAMAS MR#: [id number] CSN: [id number] AUTHENTICATING CLINICIAN: Jeremy Madrid MD CONFIRM #: [id number] LOC: 512 CLINIC PROGRESS NOTE DATE OF VISIT: 03/04/2012 : 1960 Paty Llamas is a 51-year-old female with a history of endometrial carcinoma. She underwent surgical staging in August of [address] Jackson Iqbal and was found to have a stage IA grade 2 endometrial carcinoma. She presents today for interval followup. She has had no problems since surgery. PHYSICAL EXAMINATION: ABDOMEN: Obese, soft and nontender. There is no inguinal adenopathy. PELVIC EXAMINATION: The external genitalia are without lesions. The vagina is negative throughout its course. The vaginal apex is well-supported. There are no vaginal apical masses, tenderness or erosions. A Pap smear of the vaginal apex is obtained. On bimanual examination, there is no nodularity or tenderness at the vaginal apex. EXTREMITIES: Nontender without edema. ASSESSMENT: Normal interval exam to followup a history of stage IA grade 2 endometrial carcinoma initially staged August of 2010. Return to clinic in 3-4 months for interval examination. CJS:MEDQ C: CONFIRM #: [id number] documented in this encounter Plan of Treatment Not on filedocumented as of this encounter Procedures Procedure Name Priority Date/Time Associated Diagnosis Comme nts ANATOMICAL PATH Routine 03/04/2012 8:56 AM Result s for this LIQUID BASED CDT procedure are i n the results section. PAP SMEAR SCREENING Routine 03/04/2012 8:56 AM Hx of cancer of Results for this CDT endometrium procedure are i n the results section. documented in this encounter Results Pap Smear (03/04/2012 8:56 AM CDT) Specimen (Source) Anatomical Collection Method Collection Time Re ceived Time Location / / Volume Laterality 03/04/2012 8:56 AM CDT Narrative HP CONVERSION - 03/11/2012 12:42 PM CDT Final GYNECOLOGICAL CYTOLOGY REPORT Pathology #: [id number] ?Date Obtained: 03/04/2012 ? Date Received: 03/05/2012 INTERPRETATION/RESULTS: Negative for Intraepithelial Lesion or M alignancy SPECIMEN ADEQUACY: Satisfactory for Evaluation. ??No endoce rvical cells/transformation zone component present; post hysterectomy Verified on 03/11/2012 ??by Mary ALLAN MD (electronic signature) CLINICAL NOTES: ? LMP: Not Stated, History of CA : endo 2010. LIQUID BASED PAP SMEAR SPECIMEN TYPE: ?VAGINAL WITH REFLEX TO HPV IF A SCUS, CUFF PLEASE NOTE: The pap smear is a screening test design ed to aid in the detection of cervical cancer and its pre cursor lesions. It is not a diagnostic procedure and boogie uld not be used as the sole means of detecting cervical cancer. Both false-positive and false-negative report s may occur. ? End of Report Jeremy Madrid MD LAB_1 Performing Organization Address City/State/ZIP Code Phon e Number HP CONVERSION Pap Smear Screening (03/04/2012 8:56 AM CDT) P athologist Signature PAP Routine Collected HP CONVERSION Specimen Anatomical Collection Method Collection Time Receive d Time (Source) Location / / Volume Laterality 03/04/2012 8:56 AM 2 8:02 CDT AM CDT Jeremy Madrid MD LAB_1 Performing Organization Address City/State/ZIP Code Phon e Number HP CONVERSION documented in this encounter Visit Diagnoses Diagnosis Hx of cancer of endometrium - Primary Personal history of malignant neoplasm o f other parts of uterus Need for prophylactic vaccination and in oculation against influenza documented in this encounter Care Teams Lunchroom Mother Relationship Specialty Start Date End Date Olamide Rodney MD PCP - General 09/25/10 01/11/21 [address] [place] [address] documented as of this encounter
--- OUTSIDE RECORDS SUMMARY | 2022-01-29 17:51 | XMS_ITS | Encounter Summary ---
:1960 Author Organization [employer] Address [address] [place] [address] Care Team Providers Name Role Phone Olamide Rodney MD Primary Care Provider Encounter Details Date Type Department Care Team Description 09/22/2012 Imaging [place] [facility] [address] [place] [address] Social History Tobacco Use Types Packs/Day Years Used Date Smoking Tobacco: Never Alcohol Use Standard Drinks/Week Comments Yes 0 (1 standard drink = 0.6 oz pure alcoho l) mod Sex Assigned at Date Recorded Not on file documented as of this encounter Plan of Treatment Not on filedocumented as of this encounter Visit Diagnoses Not on filedocumented in this encounter Care Teams Shell Mold Bonder Relationship Specialty Start Date End Date Olamide Rodney MD PCP - General 09/25/10 01/11/21 [address] [place], [place] [address] documented as of this encounter
--- OUTSIDE RECORDS SUMMARY | 2022-01-29 17:51 | XMS_ITS | Encounter Summary ---
:1960 Author Organization [employer] Address [address] [place] [address] Care Team Providers Name Role Phone Olamide Rodney MD Primary Care Provider Reason for Visit Reason Comments Follow-up Encounter Details Date Type Department Care Team Description 03/10/2013 Office Visit Jeremy Aguiar Tinea stephanie sicolor (Primary Dx); Obstetrics/Gynecolog MD Joni History of endometrial cancer y [address] [facility] [address] [place] [address] [place] [address] [phone] Social History Tobacco Use Types Packs/Day Years Used Date Smoking Tobacco: Never Alcohol Use Standard Drinks/Week Comments Yes 0 (1 standard drink = 0.6 oz pure alcoho l) mod Sex Assigned at Date Recorded Not on file documented as of this encounter Patient Instructions Patient InstructionsMarylu Leigh LPN - 03/10/2013 8:38 AM CDT Thank you for enrolling in [employer]. Please follow the instructions below to securely access your online medical record. [employer] allows you to send messages to your doctor, view your test results, renewyour prescriptions, schedule appointments, and more. How Do I Sign Up? 1. In your Internet browser, go to: [email or web address] 2. Click on the Enter Activation Code link under the New User? section. You will see the New Member Sign Up page. 3. Enter your [employer] Activation Code exactly as it appears below. You will not need to use this code after you???ve completed the sign-up process. If you do not sign up before the expiration date, youmust request a new code. [employer] Activation Code: [email or web address] Expires: 04/09/2013 8:38 AM 4. Enter the last four digits of your Social Security Number ([id number]) and Date of (mm/dd/yyyy) as indicated and click Next. You will be taken to the next sign-up page. 5. Create a [employer] ID. This will be your [employer] login ID and cannot be changed, so think of one that is secure and easy to remember. 6. Create a [employer] password. You can change your password at any time. 7. Enter your Security Question and Answer. This can be used at a later time if you forget your password. Click Next. 8. Enter your e-mail address. You will receive e-mail notification when new information is availablein [employer]. 9. Click Sign In. You can now view your medical record. Additional Information If you have questions, you can call [phone] to talk to our [employer] staff. Remember, [employer] is NOT to be used for urgent needs. For medical emergencies, dial 911. documented in this encounter Progress Notes Jeremy Madrid - 03/10/2013 9:16 AM CDT Progress Notes signed by Jeremy Madrid MD at 03/11/13 0652 Author: Jeremy Madrid MD Service: (none) Author Type: Physician Filed: 03/11/13 0652 Note Time: 03/10/132126 Status: Signed Concrete Laborer: Jeremy Madrid MD (Physician) NAME: FARHADPATY MR#: [id number] CSN: [id number] AUTHENTICATING CLINICIAN: Jeremy Madrid MD CONFIRM #: [id number] LOC: 512 CLINIC PROGRESS NOTE DATE OF VISIT: 03/10/2013 : 1960 Paty Stovall is a 52-year-old female, status post primary staging for a grade 2, stage I endometrial carcinoma in August [address] Jackson Iqbal. She is now 2- 1/2 years post surgery, for routine followup. She is presently without complaints or concerns, other than a small rash on her left hand. Per Dr. Iqbal's notes, she is presently on a q.6 month regimen of followup visits. In August 2012 she was seen, at which time she was well and her Pap smear was negative. Today, is just a routine checkup for cancer surveillance. PHYSICAL EXAMINATION: She is in no apparent distress. VITAL SIGNS: Per the Epic record. ABDOMEN: Soft and nontender. There is no inguinal adenopathy. PELVIC: The external genitalia are without lesions. Bartholin, Healy, urethral glands negative. Vagina is negative throughout its course. The vaginal apex is well supported. There are no vaginal apicalmasses or tenderness. On bimanual examination, there is no nodularity or tenderness of the vaginal apex. There are no vaginal apical masses. Rectovaginal examination is confirmatory. The patient's left hand has a small area of what appears to be a fungal infection. Ketoconazole cream daily x2 weeks was prescribed. She was advised to follow up in Primary Care or Dermatology if this does not improve. ASSESSMENT: History of stage I, grade 2 adenocarcinoma of the endometrium, surgically staged in August 2010, presently doing well with no clinical evidence of recurrence. PLAN: Return to clinic in 3 months for cancer surveillance visit. Pap smear will be due at that time. CJS:MEDQ C: CONFIRM #: [id number] documented in this encounter Plan of Treatment Not on filedocumented as of this encounter Visit Diagnoses Diagnosis Tinea versicolor - Primary Pityriasis versicolor History of endometrial cancer Personal history of malignant neoplasm o f other parts of uterus documented in this encounter Care Teams Barrel Cap Setter Relationship Specialty Start Date End Date Olamide Rodney MD PCP - General 09/25/10 01/11/21 [address] [place] [address] documented as of this encounter
--- OUTSIDE RECORDS SUMMARY | 2022-01-29 17:51 | XMS_ITS | Encounter Summary ---
:1960 Author Organization [employer] Address [address] [place] [address] Care Team Providers Name Role Phone Olamide Rodney MD Primary Care Provider Reason for Visit Reason Comments Endometrial Cancer Encounter Details Date Type Department Care Team Description 09/08/2013 Office Visit Jeremy Aguiar History o f Obstetrics/Gynecolog MD Joni endometrial cancer y [address] (Primary Dx) [address] [place] [address] [place] [address] [phone] Social History Tobacco Use Types Packs/Day Years Used Date Smoking Tobacco: Never Alcohol Use Standard Drinks/Week Comments Yes 0 (1 standard drink = 0.6 oz pure alcoho l) mod Sex Assigned at Date Recorded Not on file documented as of this encounter Last Filed Vital Signs Vital Sign Reading Time Taken Comments Blood Pressure 131/77 09/08/2013 8:45 AM CDT Pulse 67 09/08/2013 8:45 AM CDT Temperature - - Respiratory Rate - - Oxygen Saturation - - Inhaled Oxygen Concentration - - Weight 97.1 kg (214 lb) 09/08/2013 8:45 AM CDT Height - - Body Mass Index 35.89 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 Please follow the instructions below to securely access your online medical record. [facility] allows you to send messages to your doctor, view your test results, renewyour prescriptions, schedule appointments, and more. How Do I Sign Up? 1. In your Internet browser, go to: [email or web address] 2. Click on the Enter Activation Code link under the New User? section. You will see the New Member Sign Up page. 3. Enter your [facility] Activation Code exactly as it appears below. You will not need to use this code after you???ve completed the sign-up process. If you do not sign up before the expiration date, youmust request a new code. [facility] Activation Code: [email or web address] Expires: 10/08/2013 8:47 AM 4. Enter your Date of (mm/dd/yyyy), Home Phone Number and Zip Code as indicated, then click Next. You will be taken to the next sign-up page 5. Create a [facility] ID. This will be your [facility] login ID and cannot be changed, so think of one that is secure and easy to remember. 6. Create a [facility] password. You can change your password at any time. 7. Enter your Security Question and Answer. This can be used at a later time if you forget your password. Click Next. 8. Enter your e-mail address. You will receive e-mail notification when new information is availablein [facility]. 9. Click Sign In. You can now view your medical record. Additional Information If you have questions, you can call [phone] to talk to our [facility] staff. Remember, [facility] is NOT to be used for urgent needs. For medical emergencies, dial 911. documented in this encounter Progress Notes Jeremy Madrid - 09/15/2013 4:09 PM CDT Quick Note: Reviewed. Normal. OK to send normal Pap letter. Jeremy Madrid - 09/08/2013 9:25 AM CDT Progress Notes signed by Jeremy Madrid MD at 09/08/13 1136 Author: Jeremy Madrid MD Service: (none) Author Type: Physician Filed: 09/08/13 1136 Note Time: 09/08/131025 Status: Signed Monitoring Specialist: Jeremy Madrid MD (Physician) NAME: PATY LLAMAS MR#: [id number] CSN: [id number] AUTHENTICATING CLINICIAN: Jeremy Madrid MD CONFIRM #: [id number] LOC: 512 CLINIC PROGRESS NOTE DATE OF VISIT: 09/08/2013 : 1960 SUBJECTIVE: Paty Llamas is a 52-year-old female, here for a cancer surveillance visit. She is now three years outfrom a surgical staging procedure by Dr. Jackson Iqbal for a stage IA grade 2 endometrial carcinoma.She is presently without complaints. This is an interval 6- month visit. A Pap smear will be obtained today. The patient denies any pelvic pain or discomfort. She denies any changes in her general sense of well being. Denies any other constitutional symptoms. PHYSICAL EXAMINATION: ABDOMEN: Soft and nontender. No inguinal adenopathy is appreciated. PELVIC: On examination, the external genitalia are without lesions. The vagina is negative throughout its course. The vaginal apex is well-supported and without discernible tissue breakdown or lesions.A Pap smear of the vaginal apex is obtained and submitted to pathology. On bimanual examination, thevaginal apex is well supported. There is no nodularity, tenderness, or firmness at the apex. EXTREMITIES: Nontender without edema. ASSESSMENT: Normal cancer surveillance visit with no evidence of recurrence in a patient now three years out from a surgical staging for a stage IA grade 2 endometrial carcinoma. The patient has an appointment with her primary care physician, Dr. Olamide Rodney, later this morning to address her general health care needs. CJS:MEDQ C: CONFIRM #: [id number] documented in this encounter Miscellaneous Notes Miscellaneous - 08/01/2016 9:29 PM CSTNotes Recorded by Jeremy Madrid MD on 09/15/2013 at 4:09 PMReviewed. Normal. OK to send normal Pap letter. 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 PAP SMEAR ORDER Routine 09/08/2013 9:27 AM History of Result s for this CDT endometrial cancer procedure are in the results section. documented in this encounter Results Pap Smear (09/08/2013 9:27 AM CDT) Specimen (Source) Anatomical Collection Method Collection Time Re ceived Time Location / / Volume Laterality 09/08/2013 9:27 AM CDT Narrative HP CONVERSION - 09/15/2013 3:24 PM CDT FINAL GYNECOLOGICAL CYTOLOGY REPORT Pathology #: [id number] ?Date Obtained: 09/08/2013 ? Date Received: 09/09/2013 INTERPRETATION/RESULTS: Negative for Intraepithelial Lesion or M alignancy. SPECIMEN ADEQUACY: Satisfactory for Evaluation. ??No endoce rvical cells/transformation zone component present; vaginal source. Verified on 09/15/2013 ??by EPHRAIM PELAEZ(ASCP) (electronic signature) CLINICAL NOTES: ?Abnormal bleeding: No, LMP: hys terectomy 3/, Postmenopausal, ?Hormonal [place]: No, Hysterectomy LIQUID BASED PAP SMEAR SPECIMEN TYPE: ?VAGINAL WITH REFLEX TO HPV IF A SCUS PLEASE NOTE: The pap smear is a screening test design ed to aid in the detection of cervical cancer and its pre cursor lesions. It is not a diagnostic procedure and boogie uld not be used as the sole means of detecting cervical cancer. Both false-positive and false-negative report s may occur. ? End of Report Transcriptions 08/01/2016 9:29 PM CSTNotes Recorded by Jeremy Madrid MD on 09/15/2013 at 4:09 PMReviewed. Normal. OK to send normal Pap letter. Jeremy Madrid MD LAB_1 Performing Organization Address [facility] Phon e Number HP CONVERSION Pap Smear Order (09/08/2013 9:27 AM CDT) [facility] gist Method Time Signature Pap Smear Collected HP CONVERSION Monolayer tracking test Specimen Anatomical Collection Method Collection Time Receive d Time (Source) Location / / Volume Laterality 09/08/2013 9:27 AM 4 7:24 CDT AM CDT Jeremy Madrid MD LAB_1 Performing Organization Address [facility] Phon e Number HP CONVERSION documented in this encounter Visit Diagnoses Diagnosis History of endometrial cancer - Primary Personal history of malignant neoplasm o f other parts of uterus documented in this encounter Care Teams Ambulatory Services Representative Relationship Specialty Start Date End Date Olamide Rodney MD PCP - General 09/25/10 01/11/21 [address] [place] [address] documented as of this encounter
--- OUTSIDE RECORDS SUMMARY | 2022-01-29 17:51 | XMS_ITS | Encounter Summary ---
:1960 Author Organization [employer] Address [address], [place] [address] Care Team Providers Name Role Phone Olamide Rodney MD Primary Care Provider Reason for Visit Reason Comments Annual Exam Encounter Details Date Type Department Care Team Description 08/27/2012 Office Visit [facility] Olamide Rodney physical examination (Primary Dx); Hayley Antoine MD Diabetes type 2, controlled; [address] [place] [address] [place]rocy[place] [address] [facility] [phone] [place], [place] [address] Social History Tobacco Use Types Packs/Day Years Used Date Smoking Tobacco: Never Alcohol Use Standard Drinks/Week Comments Yes 0 (1 standard drink = 0.6 oz pure alcoho l) mod Sex Assigned at Date Recorded Not on file documented as of this encounter Last Filed Vital Signs Vital Sign Reading Time Taken Comments Blood Pressure 122/84 08/27/2012 12:09 PM BULL RIVETER Pulse 64 08/27/2012 12:09 PM BULL RIVETER Temperature - - Respiratory Rate - - Oxygen Saturation - - Inhaled Oxygen Concentration - - Weight 92.5 kg (204 lb) 08/27/2012 12:09 PM BULL RIVETER Height 164.5 cm (5' 4.75) 08/27/2012 12:09 PM BULL RIVETER Body Mass Index 34.21 08/27/2012 12:09 PM BULL RIVETER documented in this encounter Patient Instructions Patient InstructionsOlamide Rodney MD - 08/27/2012 12:35 PM CST Have non fasting labs in about 6 months, early February 2013. Please call [phone] to schedule your lab appointment. RIVETER documented in this encounter Progress Notes Olamide Rodney MD - 09/01/2012 10:36 AM CDT Preventive Physical Exam: 08/27/2012 SUBJECTIVE: 51 y.o. year old female for a physical exam. Zostavax 2008. Pneumonia vaccine 1996 &2005. Adacel 2011. Had seasonal flu shot. Was diagnosed with endometrial cancer, still gets Pap and exam from Dr. Madrid. Had the DAVID and BSO. She remotely had a DVT on control pills. She is sexually active and denies risk for STD. Her had vasectomy. She does do self-breast exam. No history of breast biopsy. Gets annual mammograms, is due for that. She is working out at the gym 3 times per week 45-60 minutes doing weights and cardio. Weight is stable. Bone density approximately 2008 outside [facility], due in 5 years for repeat. Colonoscopy 2009 outside [facility], patient statesit was normal. She has type 2 diabetes mellitus which became quiescent after her gastric bypass. Her current weightis stable. Her A1c was 5.4. Lab Results Component Value Date/Time HGB A1C 5.4 08/12/2012 10:14 HGB A1C 5.8 08/05/2011 07:11 HGB A1C 5.6 03/18/2011 12:16 Hemoglobin A1C Rapid 5.2 03/31/2012 10:13 Immunization History Administered Date(s) Administered ??? Influenza TIV (36+ mos) 03/04/2012 ??? [...] without anemia 04/22/2012 Past Surgical History Procedure Date ??? Gastric bypass surgery 2002 ??? [place] tooth extraction ??? Eye surgery PRK ??? David and bso endometrial cancer ??? Cholecystectomy ??? Lipectomy 2004 Social History: . 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 Allergies Allergen Reactions ??? Contrast Media LW [...] Calcium-Vitamin D3-Vitamin K (VIACTIV) 500-200-40 mg-unit-mcg Chew 2 times daily. 0 ??? cyanocobalamin (VITAMIN B-12) 1,000 mcg tablet Take by mouth once a week. 0 ??? multivitamin (THERAGRAN) tablet Take 2 tablets by mouth daily (every 24 hours). 100 tablet 0 ??? pirbuterol (MAXAIR AUTOHALER) 200 mcg/Inhalation inhaler Take 1-2 puffs by mouth every 4 hours as needed. LW Addl Instr:Indicated for: Asthma 14 12 Family History Problem Relation Age of Onset ??? Conversion Family History LW Problem: V16.0 Ca Colon Fam Hx LW Modifier: colonoscopy at 10/2004 LW Onset: [id number] ??? Cancer, Colon Mother ??? Clotting Disorder [...] Brother ??? Allergies Brother ??? Depression Brother Habits: reports that she has never smoked. She has never used smokeless tobacco. reports that she drinks about 10.5 ounces of alcohol per week. reports that she does not use illicit drugs. Review of Systems: With the exception of any items noted above, the remainder of the complete ROS is negative. OBJECTIVE: Vital Signs: height is 1.645 m (5' 4.75) and weight is 92.534 kg (204 lb). Her blood pressure is 122/84 and her pulse is 64. , Body mass index is 34.21 kg/(m^2). General: Overweight female, alert, in NAD. [...] Yes ??? Diabetes type 2, controlled ??? Macrocytosis without anemia PLAN: 1. Physical exam, clinical breast exam were completed. Recommend monthly self breast exam and annualmammogram. Reviewed labs drawn prior to visit. Recommend decrease alcohol intake. Discussed macrocytosis again. Most likely etiology is from her daily alcohol consumption. Discussed would consider further workup through hematology. She does not wish to do that at this time. Followup in 6 months. Lab Frequency Next Occurrence Complete Blood Count W/Diff Once 03/01/2013 Hemoglobin A1C Glycosylated Once 03/01/2013 Microalbumin Urine Random Once 03/01/2013 2. Orders Placed This Encounter Procedure ??? Mammogram ??? Complete Blood Count W/Diff ??? Hemoglobin A1C Glycosylated ??? Microalbumin Urine Random No orders of the defined types were placed in this encounter. Patient Instructions Have non fasting labs in about 6 months, early February 2013. Please call [phone] to schedule your lab appointment. General preventive health measures were reviewed with patient. Labs: We will mail lab results to patient or contact patient if needed by phone for significant abnormals. *SH~DNS~PEF documented in this encounter Plan of Treatment Not on filedocumented as of this encounter Procedures Procedure Name Priority Date/Time Associated Diagnosis Comme nts MM MAMMOGRAM Routine 09/22/2012 10:01 AM Routine physical Resu lts for this SCREENING BILAT W CDT examination procedure are in CAD the results section. documented in this encounter Results MM Mammogram Screening Bilat W CAD (09/22/2012 10:01 AM CDT) Anatomical Region Laterality Modality Breast Bilateral Mammography Specimen (Source) Anatomical Location Collection Method / Collectio n Time Received Time / Laterality Volume Impressions 09/22/2012 4:00 PM CDT IMPRESSION: BILATERAL BREASTS: Scattered punctate ca lcifications, unchanged. Benign, no evidence of malignancy. Sujatha l interval follow-up is recommended in 12 months. OVERALL ASSESSMENT - CATEGORY 2 - BENIGN END OF IMPRESSION BJ Narrative 09/22/2012 4:00 PM CDT Comparison is made to films from 012 (bilateral) and films from 08/08/2010 (bilateral). There is no significant interval change. Bilateral Breast Findings: The breasts are almost entirely fat (les s than or equal to 10% fibroglandular). Scattered punctate calc ifications are present. Since the last study, no significant change melara s occurred. Procedure Note Shaila Herrera MD - 02/14/2016Formatt ing of this note might be different from the original. Comparison is made to films from 012 (bilateral) and films from 08/08/2010 (bilateral). There is no significant interval change. Bilateral Breast Findings: The breasts are almost entirely fat (les s than or equal to 10% fibroglandular). Scattered punctate calc ifications are present. Since the last study, no significant change melara s occurred. IMPRESSION IMPRESSION: BILATERAL BREASTS: Scattered punctate ca lcifications, unchanged. Benign, no evidence of malignancy. Sujatha l interval follow-up is recommended in 12 months. OVERALL ASSESSMENT - CATEGORY 2 - BENIGN END OF IMPRESSION BJ Olamide Rodney MD [facility] documented in this encounter Visit Diagnoses Diagnosis Routine physical examination - Primary Routine general medical examination at a health care facility Diabetes type 2, controlled ([facility]) Type II or unspecified type diabetes rod litus without mention of complication, not stated as uncontrolled Macrocytosis without anemia Other specified diseases of blood and bl ood-forming organs documented in this encounter Care Teams Market Consultant Relationship Specialty Start Date End Date Olamide Rodney MD PCP - General 09/25/10 01/11/21 [address] [place] [address] documented as of this encounter
--- OUTSIDE RECORDS SUMMARY | 2022-01-29 17:51 | XMS_ITS | Encounter Summary ---
:1960 Author Organization [email or web address] Address [address] [place] [address] Care Team Providers Name Role Phone Olamide Rodney MD Primary Care Provider Encounter Details Date Type Department Care Team Description 10/02/2012 [facility] [address] [place] [address] Social History Tobacco Use Types Packs/Day Years Used Date Smoking Tobacco: Never Alcohol Use Standard Drinks/Week Comments Yes 0 (1 standard drink = 0.6 oz pure alcoho l) mod Sex Assigned at Date Recorded Not on file documented as of this encounter Plan of Treatment Not on filedocumented as of this encounter Visit Diagnoses Not on filedocumented in this encounter Care Teams Storage Engineer Relationship Specialty Start Date End Date Olamide Rodney MD PCP - General 09/25/10 01/11/21 [address] [place] [address] documented as of this encounter
--- OUTSIDE RECORDS SUMMARY | 2022-01-29 17:51 | XMS_ITS | Encounter Summary ---
:1960 Author Organization [employer] Address [address], [place] [address] Care Team Providers Name Role Phone Olamide Rodney MD Primary Care Provider Reason for Visit Reason Comments Follow-up Encounter Details Date Type Department Care Team Description 10/30/2011 Office Visit Jeremy Aguiar of [facility] Obstetrics/Gynecolog MD Joni endometrium (Primary y [address] Dx) [address] [place] [address] [place] [address] [phone] Social History Tobacco Use Types Packs/Day Years Used Date Smoking Tobacco: Never Alcohol Use Standard Drinks/Week Comments Yes 0 (1 standard drink = 0.6 oz pure alcoho l) mod Sex Assigned at Date Recorded Not on file documented as of this encounter Last Filed Vital Signs Vital Sign Reading Time Taken Comments Blood Pressure 118/78 10/30/2011 8:00 AM CDT Pulse - - Temperature - - Respiratory Rate - - Oxygen Saturation - - Inhaled Oxygen Concentration - - Weight 95.7 kg (211 lb) 10/30/2011 8:00 AM CDT Height - - Body Mass Index 35.38 08/19/2011 12:03 PM 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 She underwent surgical staging in August of [address] Jackson Iqbal. Ultimately found to have a stage I-A grade 2 endometrial carcinoma. She presents today for interval followup. She was seen in July of this year and was without complaints. Pap smear screening at that time was negative. At this time, the patient reports no abdominal or pelvic complaints. She specifically denies any vaginal bleeding or pelvic discomfort. She actually states that her intestinal regularity and comfort has been improved since the hysterectomy. 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 PHYSICAL EXAMINATION: VITAL SIGNS: Stable and entered into the Epic record. ABDOMEN: Soft and nontender. No inguinal adenopathy is appreciated. PELVIC: On examination, the external genitalia without lesions. The vagina is negative throughout its course. The vaginal apex is well-supported and without nodularity or lesions either visually or on bimanual examination. EXTREMITIES: Nontender without edema. ASSESSMENT: Normal interval followup examination in a 50-year-old who is now a little over 2 years out from surgical staging for stage IA grade 2 endometrial carcinoma. Patient advised to return to clinic in 3-4 months for interval examination and Pap smear to be performed at that time, per Dr. Iqbal's recommendation. CJS:MEDQ C: CONFIRM #: [id number] documented in this encounter Plan of Treatment Not on filedocumented as of this encounter Visit Diagnoses Diagnosis Hx of cancer of endometrium - Primary Personal history of malignant neoplasm o f other parts of uterus documented in this encounter Care Teams Fire Extinguisher Repairer Inspector Relationship Specialty Start Date End Date Olamide Rodney MD PCP - General 09/25/10 01/11/21 [address] [place] [address] documented as of this encounter
--- OUTSIDE RECORDS SUMMARY | 2022-01-29 17:51 | XMS_ITS | Encounter Summary ---
:1960 Author Organization [facility] Address [address] [address] Care Team Providers Name Role Phone Olamide Rodney MD Primary Care Provider Reason for Visit Reason Comments Follow-up Encounter Details Date Type Department Care Team Description 09/10/2012 Office Visit Jeremy Aguiar History o f Obstetrics/Gynecolog MD Joni endometrial cancer y [address] (Primary Dx) [address] [place] [address] [place] [address] [phone] Social History Tobacco Use Types Packs/Day Years Used Date Smoking Tobacco: Never Alcohol Use Standard Drinks/Week Comments Yes 0 (1 standard drink = 0.6 oz pure alcoho l) mod Sex Assigned at Date Recorded Not on file documented as of this encounter Last Filed Vital Signs Vital Sign Reading Time Taken Comments Blood Pressure 120/79 09/10/2012 9:41 AM CDT Pulse 75 09/10/2012 9:41 AM CDT Temperature - - Respiratory Rate - - Oxygen Saturation - - Inhaled Oxygen Concentration - - Weight 91.6 kg (202 lb) 09/10/2012 9:41 AM CDT Height - - Body Mass Index 33.87 08/27/2012 12:09 PM CONTACT LENS BLOCKER AND CUTTER documented in this encounter Patient Instructions Patient InstructionsMarylu Leigh LPN - 09/10/2012 9:44 AM CDT Thank you for enrolling in [facility]. Please follow the instructions below to securely access your online medical record. [facility] allows you to send messages to your doctor, view your test results, renewyour prescriptions, schedule appointments, and more. How Do I Sign Up? 1. In your Internet browser, go to: [email or web address] 2. Click on the Sign Up Now link in the Sign In box. You will see the New Member Sign Up page. 3. Enter your [facility] Access Code exactly as it appears below. You will not need to use this code after you???ve completed the sign-up process. If you do not sign up before the expiration date, you must request a new code. [facility] Access Code: [email or web address] Expires: 10/10/12 09:44 AM 4. Enter your Social Security Number ([id number]) and Date of (mm/dd/yyyy) as indicated and click Submit. You will be taken to the next sign- up page. 5. Create a [facility] ID. This will be your [facility] login ID and cannot be changed, so think of one that is secure and easy to remember. 6. Create a [facility] password. You can change your password at any time. 7. Enter your Password Reset Question and Answer. This can be used at a later time if you forget your password. 8. Enter your e-mail address. You will receive e-mail notification when new information is availablein [facility]. 9. Click Sign Up. You can now view your medical record. Additional Information If you have questions, you can call [phone] to talk to our [facility] staff. Remember, [facility] is NOT to be used for urgent needs. For medical emergencies, dial 911. documented in this encounter Progress Notes Jeremy Madrid - 09/17/2012 6:58 AM CDT Quick Note: Reviewed. OK to send normal Pap letter Mercy Velasquezshashank Pierce - 09/10/2012 10:08 AM CDT Progress Notes signed by Jeremy Madrid MD at 09/11/12 08 Author: Jeremy Madrid MD Service: (none) Author Type: Physician Filed: 09/11/12 08 Note Time: 09/10/12 1008 Status: Signed Accounting Manager Controller: Jeremy Madrid MD (Physician) NAME: PATY LLAMAS MR#: [id number] CSN: [id number] AUTHENTICATING CLINICIAN: Jeremy Madrid MD CONFIRM #: [id number] LOC: 512 CLINIC PROGRESS NOTE DATE OF VISIT: 09/10/2012 : 1960 Paty Llamas is a 51-year-old female, status post staging procedure for a stage I, grade 2 endometrialcarcinoma in August [address] Jackson Iqbal. She presents today, 2 years post staging, for followup. She is presently without complaints or concerns. She feels well. Review of Dr. Iqbal's notes indicates he advised her to have every 3-4 months evaluations with Paps every other visit for the first 2 years. She has now achieved that milestone. For the next 3 years every 6 months visits with Paps annually were recommended. This was explained to the patient. PHYSICAL EXAMINATION: Today, she is in no apparent distress. Weight 202, blood pressure 120/79, pulse 75. ABDOMEN: Soft, nontender. No inguinal adenopathy is appreciated. The external genitalia are without lesions. The vagina is negative throughout its course. The vaginal apex is well-supported and without lesions. A Pap smear of the vaginal apex is obtained and submitted to pathology. On bimanual examination, there are no vaginal apical masses or tenderness or nodularity. Rectovaginal examination is confirmatory. ASSESSMENT: Two years out from staging procedure for a stage IA, grade 2 endometrial carcinoma. No evidence of recurrence. Every 6 months followup with Paps annually recommended. Pap obtained today. Return to clinic February 2013. ADDENDUM: The patient gets her health maintenance with Dr. Rodney in the Department of Internal Medicine. CJS:DUANE C: CONFIRM #: [id number] documented in this encounter Miscellaneous Notes Miscellaneous - 08/02/2016 8:50 AM CSTNotes Recorded by Jeremy Madrid MD on 09/17/2012 at 6:58 AMReviewed. OK to send normal Pap letter ACT LENS BLOCKER AND CUTTER documented in this encounter Plan of Treatment Not on filedocumented as of this encounter Procedures Procedure Name Priority Date/Time Associated Diagnosis Comme nts ANATOMICAL PATH Routine 09/10/2012 10:34 Results for this LIQUID BASED AM CDT procedure are i n the results section. PAP SMEAR DIAGNOSTIC Routine 09/10/2012 10:34 History of Res ults for this AM CDT endometrial cancer procedure are in the results section. documented in this encounter Results Pap Smear (09/10/2012 10:34 AM CDT) Specimen (Source) Anatomical Collection Method Collection Time Re ceived Time Location / / Volume Laterality 09/10/2012 10:34 AM CDT Narrative HP CONVERSION - 09/16/2012 5:22 PM CDT FINAL GYNECOLOGICAL CYTOLOGY REPORT Pathology #: [id number] ?Date Obtained: 09/10/2012 ? Date Received: 09/11/2012 INTERPRETATION/RESULTS: Negative for Intraepithelial Lesion or M alignancy SPECIMEN ADEQUACY: Satisfactory for Evaluation. ??No endoce rvical cells/transformation zone component present; post hysterectomy Verified on 09/16/2012 ??by MARTINE LUIS MD (electronic signature) CLINICAL NOTES: ?LMP: Not Stated, Hysterectomy, History of CA: endometrial 08/31 ?surgery LIQUID BASED PAP SMEAR SPECIMEN TYPE: ?VAGINAL [...] may occur. ? End of Report Transcriptions 08/02/2016 8:50 AM CSTNotes Recorded by Jeremy Madrid MD on 09/17/2012 at 6:58 AMReviewed. OK to send normal Pap letter Jeremy Madrid MD LAB_1 Performing Organization Address City/[facility] Phon e Number HP CONVERSION Pap Smear Diagnostic (09/10/2012 10:34 AM CDT) [facility] gist Method Time Signature PAP Diagnostic Collected HP CONVERSION Specimen Anatomical Collection Method Collection Time Receive d Time (Source) Location / / Volume Laterality 09/10/2012 10:34 09/11/2012 6:55 AM CDT AM CDT Jeremy Madrid MD LAB_1 Performing Organization Address [facility] Phon e Number HP CONVERSION documented in this encounter Visit Diagnoses Diagnosis History of endometrial cancer - Primary Personal history of malignant neoplasm o f other parts of uterus documented in this encounter Care Teams Primer And Powder Canning Leader Relationship Specialty Start Date End Date Olamide Rodney MD PCP - General 09/25/10 01/11/21 [address] [place] [address] documented as of this encounter
--- OUTSIDE RECORDS SUMMARY | 2022-01-29 17:51 | XMS_ITS | Encounter Summary ---
:1960 Author Organization [employer] Address [address] [place] [address] Care Team Providers Name Role Phone Olamide Rodney MD Primary Care Provider Encounter Details Date Type Department Care Team Description 03/31/2012 Lab Visit [facility] Diabetes type 2, controlled [address] [place] [address] Social History Tobacco Use Types Packs/Day Years Used Date Smoking Tobacco: Never Alcohol Use Standard Drinks/Week Comments Yes 0 (1 standard drink = 0.6 oz pure alcoho l) mod Sex Assigned at Date Recorded Not on file documented as of this encounter Plan of Treatment Not on filedocumented as of this encounter Procedures Procedure Name Priority Date/Time Associated Comments Diagnosis ALBUMIN/CREAT RATIO Routine 03/31/2012 10:17 AM Diabetes type 2, Results for this CDT controlled ([facility]) procedure a re in the results section. HEMOGLOBIN A1C, Routine 03/31/2012 10:13 AM Diabetes type 2, R esults for this RAPID CDT controlled ([facility]) procedure a re in the results section. documented in this encounter Results Microalb/Creat Ratio (03/31/2012 10:17 AM CDT) Analysis Performed At Patho logist Time Signature Microalbumin 9.0 mg/L HP CONVERSION Urine U Creat Random 213 mg/dL HP CONVERSION Microalbumin/Crea 4.2 0.0 - 30.0 HP CONVERSI ON tinine Ratio Specimen Anatomical Collection Method Collection Time Receive d Time (Source) Location / / Volume Laterality 03/31/2012 10:17 03/31/2012 AM CDT 12:21 PM CDT Olamide Rodney MD LAB_1 Performing Organization Address City/State/ZIP Code Phon e Number HP CONVERSION HEMOGLOBIN A1C, RAPID (03/31/2012 10:13 AM CDT) P athologist Signature Hemoglobin A1C 5.2 0.0 - 6.0 HP CONVERSION Rapid % Specimen Anatomical Collection Method Collection Time Receive d Time (Source) Location / / Volume Laterality 03/31/2012 10:13 03/31/2012 AM CDT 10:13 AM CDT Narrative HP CONVERSION - 03/31/2012 10:33 AM CDT Performed at [facility], [address] [place] [address] Olamide Rodney MD LAB_1 Performing Organization Address City/[facility] Phon e Number HP CONVERSION documented in this encounter Visit Diagnoses Diagnosis Diabetes type 2, controlled ([facility]) Type II or unspecified type diabetes rod litus without mention of complication, not stated as uncontrolled documented in this encounter Care Teams Ophthalmology Surgical Technician Relationship Specialty Start Date End Date Olamide Rodney MD PCP - General 09/25/10 01/11/21 [address] [place] [address] documented as of this encounter
--- OUTSIDE RECORDS SUMMARY | 2022-01-29 17:51 | XMS_ITS | Encounter Summary ---
:1960 Author Organization [facility] Address [address] [place] [address] Care Team Providers Name Role Phone Olamide Rodney MD Primary Care Provider Reason for Visit Reason Comments Head Injury Encounter Details Date Type Department Care Team Description 03/05/2013 Hospital Encounter [facility] Ramon Chan W C losed head injury (Primary Dx); Leela Mtz MD Scalp hematoma [address] [address] [facility] [phone] [place] [address] Social History Tobacco Use Types Packs/Day Years Used Date Smoking Tobacco: Never Alcohol Use Standard Drinks/Week Comments Yes 0 (1 standard drink = 0.6 oz pure alcoho l) mod Sex Assigned at Date Recorded Not on file documented as of this encounter Last Filed Vital Signs Vital Sign Reading Time Taken Comments Blood Pressure 128/78 03/05/2013 8:40 AM CDT Pulse 80 03/05/2013 8:40 AM CDT Temperature 36.7 ??C (98.1 ??F) 03/05/2013 8:40 AM CDT Respiratory Rate 20 03/05/2013 8:40 AM CDT Oxygen Saturation - - Inhaled Oxygen Concentration - - Weight - - Height - - Body Mass Index - - documented in this encounter Medications at Time of Discharge Medication Sig Dispensed Refills Start Date End Date aspirin 81 MG Take 2 tablets by 3 10/04/2010 tabletIndications: mouth daily (every TROSVIGPATY Fri 24 hours). LW Addl 2013 1:27 PM Stopped Instr:hold until taking aspirin per tien dc'd instructions for procedure. ASPIRIN EC 81MG ORAL TABS 3 TABLETS DAILY 0 11/0704/02/2016 CALCIUM + D 600-200 MG-IU 3 TABLET DAILY 0 200204/02/2016 OR TABS CYANOCOBALAMIN 1000 MCG SL 1 every other day 0 99 04/02/2016 SUBL FLINTSTONES PLUS IRON OR 2 per day 0 03/24/2003 04/02/2016 CHEW PIRBUTEROL ACETATE (MAXAIR use as directed prn 1 0 09/24/2004 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) 200MCG/INH INHALERIndications: Unspecified asthma(493.90) ([facility]) documented as of this encounter ED Notes Ramon Chan MD - 03/05/2013 2:04 PM CDT ED Provider Notes signed by Ramon Chan MD at 03/07/13938 Author: Ramon Chan MD Service: (none) Author Type: Physician Filed: 03/07/13938 Note Time: 03/05/131442 Status: Signed Stores Despatch Hand: Ramon Chan MD (Physician) NAME: PATY LLAMAS MR#: [id number] CSN: [id number] AUTHENTICATING CLINICIAN: Ramon Chan MD CONFIRM #: [id number] LOC: 520 URGENT CARE PROGRESS NOTE DATE OF VISIT: 03/05/2013 : 1960 CHIEF COMPLAINT: Head injury. HPI: Paty is a 52-year-old lady coming in with complaint of a head injury with a large swelling on the back of the head. About 4 days ago, she stumbled in the dark and fell down, hitting the back of her head against a sharp wooden edge. There was no loss of consciousness, no vomiting, no seizures. Since then, she has observed for any symptoms, and she denies any. She does have a baseline problem with herbalance which has not changed. PAST HISTORY: Positive for factor 5 Leiden deficiency, type 2 diabetes mellitus, low back problems, and history ofcancer of the endometrium. She also has history of superficial thrombophlebitis and has lost about 160 pounds secondary to gastric bypass. She exercises regularly, eats well, takes good care of herself. She has no unusual headache, neck pain, vomiting, visual changes, drainage of blood or fluid from the ear, bruising behind the ears, or neck pain. No focal symptoms of the arms or the legs. PAST MEDICAL HISTORY: Reviewed. PROBLEM LIST: Reviewed. ALLERGIES: Reviewed. MEDICATION: Reviewed. OBJECTIVE: VITAL SIGNS: Stable. GENERAL APPEARANCE: Pleasant lady, very appropriate affect. Oriented. Pupils are equal and reactive. Extraocular muscles intact. C-spine nontender. She can move her neck without any discomfort. There is a large subcutaneous hematoma in the left parietal posterior skull area. It is about 3 inches x 1/2 inch, tender to touch. There is no skin break and no drainage. Quesada sign and raccoon sign are both negative. Core Dropper strength normal bilaterally. Deep tendon reflexes brisk and symmetric all 4 extremities. Her balance is off both on Romberg and on tandem walk, but she feels this is her baseline. No numbness, tingling, or loss of sensation. Tympanic membranes are normal. There is no evidence of rupture or bleeding around the tympanic membranes. ASSESSMENT: 1. Closed-head injury. 2. Scalp hematoma. PLAN: Discussion of doing a CT scan. She would rather defer that for financial reasons. Clinically, I feelthat is acceptable. I gave her the closed-head trauma instructions. If she has any symptoms or progression of her imbalance, she will come back here or go to the emergency room. Otherwise, the hematomamight take 3- 4 weeks to be absorbed. If it drains, let us know. AKD:MEDQ C: CONFIRM #: [id number] Ramon Chan MD - 03/05/2013 9:02 AM CDT Subjective: Patient ID: Paty Llamas is an 52 y.o. female. Chief Complaint: HPI ROS Objective: BP 128/78 Pulse 80 Temp(Src) 36.7 ??C (98.1 ??F) (Oral) Resp 20 Physical Exam Procedures Assessment: The primary encounter diagnosis was Closed head injury. A diagnosis of Scalp hematoma was also pertinent to this visit. MDM Plan: dict documented in this encounter Plan of Treatment Not on filedocumented as of this encounter Visit Diagnoses Diagnosis Closed head injury - Primary Head injury, unspecified Scalp hematoma Contusion of face, scalp, and neck excep t eye(s) Triage Assessment Note - Tamika Palencia RN - 03/05/2013 8:40 AM CDT fell on furniture Friday noc and hit back of head. NO LOC. still lots of swelling. documented in this encounter Care Teams Irrigation Technician Relationship Specialty Start Date End Date Olamide Rodney MD PCP - General 09/25/10 01/11/21 [address] [place] [address] documented as of this encounter
--- OUTSIDE RECORDS SUMMARY | 2022-01-29 17:51 | XMS_ITS | Encounter Summary ---
:1960 Author Organization [employer] Address [address] [place] [address] Care Team Providers Name Role Phone Olamide Rodney MD Primary Care Provider Reason for Visit Reason Comments Follow-up Encounter Details Date Type Department Care Team Description 03/08/2013 Office Visit [facility] Olamide Rodney type 2, controlled (Primary Dx); Hayley Antoine MD Macrocytosis without anemia; [address] [place] [address] S/P gastric bypass; [place] [address] Blvd Nondependent alcohol abuse; [phone] [place], [place] Chronic in somnia; [address] Embolism and thrombosis of unspecified s ite; [phone] Need for influe nza vaccination (Work) Social History Tobacco Use Types Packs/Day Years Used Date Smoking Tobacco: Never Alcohol Use Standard Drinks/Week Comments Yes 0 (1 standard drink = 0.6 oz pure alcoho l) mod Sex Assigned at Date Recorded Not on file documented as of this encounter Last Filed Vital Signs Vital Sign Reading Time Taken Comments Blood Pressure 110/88 03/08/2013 8:49 AM CDT Pulse 64 03/08/2013 8:49 AM CDT Temperature - - Respiratory Rate - - Oxygen Saturation - - Inhaled Oxygen Concentration - - Weight 95.3 kg (210 lb) 03/08/2013 8:49 AM CDT Height - - Body Mass Index 35.22 08/27/2012 12:09 PM INSTRUMENT LENS INSPECTOR documented in this encounter Patient Instructions Patient InstructionsOlamide Rodney MD - 03/08/2013 10:16 AM CDT Have fasting labs in about 6 months. Please call [phone] to schedule your lab appointment. documented in this encounter Progress Notes Olamide Rodney MD - 03/08/2013 10:16 AM CDT SUBJECTIVE: 52 y.o. -year-old female followup type 2 diabetes [...] in the past with no significant nutritional deficiencies.Taking one calcium daily, decreased from t.i.d. She has had a minor macrocytosis on labs over the last year to 2 years. She had been drinking daily but quit about one week ago. She fell and hit her occiput. She did get some local swelling. She had no other associated symptoms and did not note any loss of consciousness. She did end up at urgent care. She is not having any change in vision or loss of vision. No headache or dizziness. No nausea. Her has decided to quit drinking also. Data: Lab Results Component Value Date/Time HGB A1C 5.8 03/02/2013 1009 HGB A1C 5.4 08/12/2012 1014 HGB A1C 5.8 08/05/2011 0711 Lab Results Component Value Date/Time LDL Calculated 72 08/12/2012 1014 Lab Results Component Value Date/Time Creatinine Serum 0.7 08/12/2012 1014 Lab Results Component Value Date/Time Alanine Aminotransferase 32 08/12/2012 1014 No results found for this basename: ck Lab Results Component Value Date/Time Sodium 140 08/12/2012 1014 Potassium 4.3 08/12/2012 1014 Chloride 103 08/12/2012 1014 Bicarbonate 29 08/12/2012 1014 Lab Results Component Value Date/Time Microalbumin Urine 13.0 03/02/2013 1023 Allergies Allergen Reactions ??? Flovent (Fluticasone) laryngitis [...] LW Addl Instr:hold until lovenox dc'd 3 No facility-administered medications prior to visit. Past Medical History Diagnosis Date ??? Deep Venous Thrombosis 10/02/2005 ??? Depression NOS 10/02/2005 ??? Factor V Leiden 08/08/2010 ??? Hernia Hiatal 08/08/2010 ??? Lumbar Disc Degeneration 08/08/2010 ??? Diabetes type 2, controlled ([facility]) 04/23/2011 ??? Chronic insomnia 04/23/2011 ??? Actinic keratoses 04/23/2011 ??? Endometrial cancer ([facility]) 04/23/2011 ??? Nondependent alcohol abuse 04/23/2011 ??? Chronic abdominal pain 04/23/2011 ??? Varicose veins 04/23/2011 ??? Superficial thrombophlebitis 04/23/2011 ??? S/P gastric bypass 04/23/2011 ??? Hx of cancer of endometrium 07/26/2011 ??? Unspecified asthma 08/19/2011 ??? Macrocytosis without anemia 04/22/2012 Past Surgical History Procedure Laterality Date ??? Gastric bypass surgery 2003 ??? Swatara tooth extraction ??? Eye surgery PRK ??? David and bso endometrial cancer ??? Cholecystectomy ??? Lipectomy 2004 Habits: reports that she has never smoked. She has never used smokeless tobacco. Social History: . OBJECTIVE: Vital Signs: BP 110/88 Pulse 64 Wt 95.255 kg (210 lb) BMI 35.2 kg/m2 General: Obese white female Eyes: No [...] Primary? Diabetes type 2, controlled Yes ??? Macrocytosis without anemia ??? S/P gastric bypass ??? Nondependent alcohol abuse ??? Chronic insomnia ??? Deep Venous Thrombosis ??? Need for influenza vaccination PLAN: 1. Continue followup every 6 months. Encouraged to continue to be alcohol free. We will do multiple labs including a peripheral smear in 6 months. We discussed if her MCV does not decline off alcohol Iwill refer her to hematology next. Flu shot given. Okay to stay on calcium once per day only. She will likely be due for a bone density next year also. 2. Orders Placed This Encounter Procedures ??? Fluarix Influenza QIV (36+ mos) ??? Ferritin ??? Cholesterol Fraction-LDLD If Trig High ??? Alanine Aminotransferase ??? TSH And Free T4 (FRT4 If TSH Abnorm) ??? Hemoglobin A1C Glycosylated ??? Complete Blood Count W/Diff ??? Creatinine ??? BUN ??? Electrolytes (NA, K, CL, Bicarb) ??? Vitamin D (In house) ??? Calcium ??? B12 And Folic Acid- Serum ??? Peripheral Blood Smear Lab Frequency Next Occurrence Ferritin Once 09/06/2013 Cholesterol Fraction-LDLD If Trig High Once 09/06/2013 Alanine Aminotransferase Once 09/06/2013 TSH And Free T4 (FRT4 If TSH Abnorm) Once 09/06/2013 Hemoglobin A1C Glycosylated Once 09/06/2013 Complete Blood Count W/Diff Once 09/06/2013 Creatinine Once 09/06/2013 BUN Once 09/06/2013 Electrolytes (NA, K, CL, Bicarb) Once 09/06/2013 Vitamin D (In house) Once 09/06/2013 Calcium Once 09/06/2013 B12 And Folic Acid- Serum Once 09/06/2013 Peripheral Blood Smear Once 09/06/2013 Orders Placed This Encounter Medications ??? multivitamin (THERAGRAN) tablet Sig: Take 2 tablets by mouth daily (every 24 hours). ??? cyanocobalamin (VITAMIN B12) 1,000 mcg tablet Sig: Take 1,000 mcg by mouth daily (every 24 hours). 6 times/week Patient Instructions Have fasting labs in about 6 months. Please call [phone] to schedule your lab appointment. The patient [...] diseases of blood and bl ood-forming organs S/P gastric bypass Bariatric surgery status Nondependent alcohol abuse Alcohol abuse, unspecified Chronic insomnia Insomnia, unspecified Embolism and thrombosis of unspecified s ite Need for influenza vaccination Need for prophylactic vaccination and in oculation against influenza documented in this encounter Care Teams Transport Pilot Relationship Specialty Start Date End Date Olamide Rodney MD PCP - General 09/25/10 01/11/21 [address] [place] [address] documented as of this encounter
--- OUTSIDE RECORDS SUMMARY | 2022-01-29 17:51 | XMS_ITS | Encounter Summary ---
:1960 Author Organization [facility] Address [address] [place] [address] Care Team Providers Name Role Phone Olamide Rodney MD Primary Care Provider Encounter Details Date Type Department Care Team Description 09/19/2011 [place] [address] [place] [address] Social History Tobacco Use Types Packs/Day Years Used Date Smoking Tobacco: Never Alcohol Use Standard Drinks/Week Comments Yes 0 (1 standard drink = 0.6 oz pure alcoho l) mod Sex Assigned at Date Recorded Not on file documented as of this encounter Plan of Treatment Not on filedocumented as of this encounter Visit Diagnoses Not on filedocumented in this encounter Care Teams Mailroom Supervisor Relationship Specialty Start Date End Date Olamide Rodney MD PCP - General 09/25/10 01/11/21 [address] [place], [place] [address] documented as of this encounter
--- OUTSIDE RECORDS SUMMARY | 2022-01-29 17:51 | XMS_ITS | Encounter Summary ---
:1960 Author Organization [employer] Address [address] [place] [address] Care Team Providers Name Role Phone Olamide Rodney MD Primary Care Provider Encounter Details Date Type Department Care Team Description 10/01/2013 Imaging Abie Mammograp hy Routine physical examination [address] [place], [place] [address] Social History Tobacco Use Types Packs/Day Years [...] Associated Diagnosis Comme nts MM MAMMOGRAM Routine 10/01/2013 9:19 AM Routine physical Resul ts for this SCREENING BILAT W CDT examination procedure are in CAD the results section. documented in this encounter Results MM Mammogram Screening Bilat W CAD (10/01/2013 9:19 AM CDT) Anatomical Region Laterality Modality Breast Bilateral Mammography Specimen (Source) Anatomical Location Collection Method / Collectio n Time Received Time / Laterality Volume Impressions 10/01/2013 9:54 AM CDT : BIRADS 1 Negative (overall) Follow Up Mammogram in 1 year - Both The results and recommendations of this examination will be communicated to the patient by the [facility] and we will attempt to schedule any recommended imaging follow up with the patient. Narrative 10/01/2013 9:54 AM CDT Compared to: 09/22/2012 Mammogram, 09/19/2011 MM MAMMOGRAM DIGITAL SCRN W CAD, 08/08/2010 MM MAMMOGRAM DIGITAL SCR N W CAD Bilateral Breast Findings: There are scattered fibroglandular densi ties (25-50%) in the breasts. No significant mass, calcifications or o ther abnormalities are seen in either breast. Procedure Note Katherine Baker MD - 02/15/2016Formattin g of this note might be different from the original. Compared to: 09/22/2012 Mammogram, 09/18 MM MAMMOGRAM DIGITAL SCRN W CAD, 08/08/2010 MM MAMMOGRAM DIGITAL SCR N W CAD Bilateral Breast Findings: There are scattered fibroglandular densi ties (25-50%) in the breasts. No significant mass, calcifications or o ther abnormalities are seen in either breast. IMPRESSION : BIRADS 1 Negative (overall) Follow Up Mammogram in 1 year - Both The results and recommendations of this examination will be communicated to the patient by the [facility] and we will attempt to schedule any recommended imaging follow up with the patient. Olamide Rodney MD [facility] documented in this encounter Visit Diagnoses Diagnosis Routine physical examination Routine general medical examination at a health care facility documented in this encounter Care Teams Senior Construction Manager Relationship Specialty Start Date End Date Olamide Rodney MD PCP - General 09/25/10 01/11/21 [address] [place] [address] documented as of this encounter
--- OUTSIDE RECORDS SUMMARY | 2022-01-29 17:51 | XMS_ITS | Encounter Summary ---
:1960 Author Organization [employer] Address [address], [place] [address] Care Team Providers Name Role Phone Olamide Rodney MD Primary Care Provider Reason for Visit Reason Comments LEG PAIN Encounter Details Date Type Department Care Team Description 10/02/2012 Nurse Triage [facility] Malka Rodney MD LEG PAIN Medicine [address] [place] [id number] [place] [id number] [phone] Social History Tobacco Use Types Packs/Day Years Used Date Smoking Tobacco: Never Alcohol Use Standard Drinks/Week Comments Yes 0 (1 standard drink = 0.6 oz pure alcoho l) mod Sex Assigned at Date Recorded Not on file documented as of this encounter Nursing Notes Samantha Mckeon RN - 10/02/2012 10:50 AM CDT Protocol: LEG [id number] Affirmative: Calf pain in only one leg and present > 1 hour Disposition of Go To ED Now (Or To Office With PCP Approval) suggested. Pt is 51 yr old woman who is calling with pain in left calf pain that started when she woke up yesterday morning. Twelve years ago did have DVT in leg. Does have positive Homans' sign. No redness on skin, no SOB or chest pain or difficulty breathing. She wants to go to instead of ER. I called and this is fine. Pt will head over after shower--advised sooner but she wants shower first. Phyllis Phelps - 10/02/2012 10:33 AM CDT pt thinlks that she may have a blood clot in leg or a pulled muscle documented in this encounter Plan of Treatment Not on filedocumented as of this encounter Visit Diagnoses Not on filedocumented in this encounter Care Teams Ecommerce Analyst Relationship Specialty Start Date End Date Olamide Rodney MD PCP - General 09/25/10 01/11/21 [address] [place] [address] documented as of this encounter
--- OUTSIDE RECORDS SUMMARY | 2022-01-29 17:51 | XMS_ITS | Encounter Summary ---
:1960 Author Organization [employer] Address [address] [place] [address] Care Team Providers Name Role Phone Olamide Rodney MD Primary Care Provider Encounter Details Date Type Department Care Team Description 08/12/2012 Lab Visit [facility] S/P gastric bypass; [id number] [employer] Diabetes type 2, [place] [address] Social History Tobacco Use Types Packs/Day Years Used Date Smoking Tobacco: Never Alcohol Use Standard Drinks/Week Comments Yes 0 (1 standard drink = 0.6 oz pure alcoho l) mod Sex Assigned at Date Recorded Not on file documented as of this encounter Plan of Treatment Not on filedocumented as of this encounter Procedures Procedure Name Priority Date/Time Associated Comments Diagnosis TSH AND FREE T4 (FRT4 Routine 08/12/2012 10:14 S/P gastric byp ass Results for this IF TSH ABNORM) AM CHANNEL OPENER procedure are in the results section. LIPID PANEL AND Routine 08/12/2012 10:14 Diabetes type 2, Resu lts for this DIRECT LDL(IF NEEDED) AM CHANNEL OPENER controlled (HRC) pr ocedure are in the results section. VITAMIN D 25-HYDROXY, Routine 08/12/2012 10:14 S/P gastric byp ass Results for this TOTAL AM CHANNEL OPENER procedure are i n the results section. CREATININE / GFR Routine 08/12/2012 10:14 S/P gastric bypass R esults for this AM CHANNEL OPENER procedure are i n the results section. COMPLETE BLOOD Routine 08/12/2012 10:14 S/P gastric bypass Res ults for this COUNT-W/DIFF AM CHANNEL OPENER procedure are i n the results section. DIFFERENTIAL Routine 08/12/2012 10:14 Results for this AM CHANNEL OPENER procedure are i n the results section. ELECTROLYTE PANEL Routine 08/12/2012 10:14 S/P gastric bypass Results for this AM CHANNEL OPENER procedure are i n the results section. FERRITIN Routine 08/12/2012 10:14 S/P gastric bypass Resul ts for this AM CHANNEL OPENER procedure are i n the results section. HGB A1C Routine 08/12/2012 10:14 Diabetes type 2, Results for this AM CHANNEL OPENER controlled (HRC) procedure a re in the results section. VITAMIN B12 ONLY Routine 08/12/2012 10:14 S/P gastric bypass R esults for this AM CHANNEL OPENER procedure are i n the results section. ALT (SGPT) Routine 08/12/2012 10:14 S/P gastric bypass Resul ts for this AM CHANNEL OPENER procedure are i n the results section. CALCIUM Routine 08/12/2012 10:14 S/P gastric bypass Resul ts for this AM CHANNEL OPENER procedure are i n the results section. documented in this encounter Results (ABNORMAL) Differential (08/12/2012 10:14 AM CHANNEL OPENER) Patholo gist Method Time Signature Absolute 1.7 (L) 1.8 - 8.0 HP CONVERSION Neutrophils k/cmm Absolute 1.7 1.1 - 4.0 HP CONVERSION Lymphocytes k/cmm Absolute 0.3 0.2 - 0.8 HP CONVERSION Monocytes k/cmm Absolute 0.1 0.0 - 0.5 HP CONVERSION Eosinophils k/cmm Absolute 0.1 0.0 - 0.2 HP CONVERSION Basophils k/cmm Specimen Anatomical Collection Method Collection Time Receive d Time (Source) Location / / Volume Laterality 08/12/2012 10:14 08/12/2012 AM CHANNEL OPENER 10:14 AM CHANNEL OPENER Narrative HP CONVERSION - 08/12/2012 10:39 AM CHANNEL OPENER Performed at [facility], [address] [id number] Olamide Rodney MD LAB_1 Performing Organization Address City/State/ZIP Code Phon e Number HP CONVERSION B12 Only (08/12/2012 10:14 AM CHANNEL OPENER) athologist Signature Vitamin B12 645 211 - 911 HP CONVERSION pg/dL Specimen Anatomical Collection Method Collection Time Receive d Time (Source) Location / / Volume Laterality 08/12/2012 10:14 08/12/2012 AM CHANNEL OPENER 12:29 PM CHANNEL OPENER Olamide Rodney MD LAB_1 Performing Organization Address City/State/ZIP Code Phon e Number HP CONVERSION Calcium (08/12/2012 10:14 AM CHANNEL OPENER) athologist Signature Calcium 9.3 8.5 - 10.5 HP CONVERSION mg/dL Specimen Anatomical Collection Method Collection Time Receive d Time (Source) Location / / Volume Laterality 08/12/2012 10:14 08/12/2012 AM CHANNEL OPENER 10:14 AM CHANNEL OPENER Narrative HP CONVERSION - 08/12/2012 11:05 AM CHANNEL OPENER [place] [address] Olamide Rodney MD LAB_1 Performing Organization Address City/[facility]/ZIP Code Phon e Number HP CONVERSION Vitamin D 25-Hydroxy, Total (08/12/2012 10:14 AM CHANNEL OPENER) athologist Signature Vitamin D 25 Oh 27 20 - 80 HP CONVERSION ng/mL Comment: Deficiency = <20 Adequate ??= 20-29 Preferred = 30-50 Uncertain safety = 51-80 High = >80 Specimen Anatomical Collection Method Collection Time Receive d Time (Source) Location / / Volume Laterality 08/12/2012 10:14 08/12/2012 AM CHANNEL OPENER 12:30 PM CHANNEL OPENER Olamide Rodney MD LAB_1 Performing Organization Address City/[facility] Code Phon e Number HP CONVERSION Electrolyte Panel (08/12/2012 10:14 AM CHANNEL OPENER) athologist Signature Sodium 140 137 - 147 HP CONVERSION mEq/L Potassium 4.3 3.5 - 5.2 HP CONVERSION mEq/L Chloride 103 98 - 110 HP CONVERSION mEq/L Bicarbonate 29 23 - 33 HP CONVERSION mmol/L Specimen Anatomical Collection Method Collection Time Receive d Time (Source) Location / / Volume Laterality 08/12/2012 10:14 08/12/2012 AM CHANNEL OPENER 10:14 AM CHANNEL OPENER Narrative HP CONVERSION - 08/12/2012 11:05 AM CHANNEL OPENER [place] [address] Olamide Rodney MD LAB_1 Performing Organization Address City/[facility]/ZIP Code Phon e Number HP CONVERSION Creatinine / GFR (08/12/2012 10:14 AM CHANNEL OPENER) athologist Signature Creatinine 0.7 0.4 - 1.3 HP CONVERSION Serum mg/dL Est GFR >60 >60 HP CONVERSION [...] Time (Source) Location / / Volume Laterality 08/12/2012 10:14 08/12/2012 AM CHANNEL OPENER 10:14 AM CHANNEL OPENER Narrative HP CONVERSION - 08/12/2012 11:05 AM CHANNEL OPENER Performed at [facility], [address] [place] [address] Olamide Rodney MD LAB_1 Performing Organization Address City/[facility] Phon e Number HP CONVERSION (ABNORMAL) Hemogram/Plts/Diff (08/12/2012 10:14 AM CHANNEL OPENER) [facility] gist Method Time Signature White Blood Cell 3.9 3.8 - HP CONVERSION Count 11.0 k/cmm Red Blood Cell 4.38 3.70 - HP CONVERSION Count 5.20 m/cmm Hemoglobin 15.6 (H) 11.8 - HP CONVERSION 15.5 g/dL Hematocrit 46.0 35.0 - HP CONVERSION 46.0 % Mean Corpuscular 105.0 (H) 80.0 - HP CONVERSION Volume 100.0 fL RDW 12.7 11.0 - HP CONVERSION 15.0 % Platelet Count 202 140 - 450 HP CONVERSION k/cmm Specimen Anatomical Collection Method Collection Time Receive d Time (Source) Location / / Volume Laterality 08/12/2012 10:14 08/12/2012 AM CHANNEL OPENER 10:14 AM CHANNEL OPENER Narrative HP CONVERSION - 08/12/2012 10:39 AM CHANNEL OPENER Performed at [facility], [address] [place] [address] Olamide Rodney MD LAB_1 Performing Organization Address City/[facility]/ZIP Code Phon e Number HP CONVERSION Hgb A1c (08/12/2012 10:14 AM CHANNEL OPENER) athologist Signature HGB A1C 5.4 0.0 - 6.0 % HP CONVERSION Specimen Anatomical Collection Method Collection Time Receive d Time (Source) Location / / Volume Laterality 08/12/2012 10:14 08/12/2012 AM CHANNEL OPENER 12:25 PM CHANNEL OPENER Olamide Rodney MD LAB_1 Performing Organization Address [facility] Code Phon e Number HP CONVERSION TSH AND FREE T4 (FRT4 IF TSH ABNORM) (08/12/2012 10:14 AM CHANNEL OPENER) athologist Signature Thyroid 2.87 0.20 - HP CONVERSION Stimulating 4.50 mIU/L Hormone Specimen Anatomical Collection Method Collection Time Receive d Time (Source) Location / / Volume Laterality 08/12/2012 10:14 08/12/2012 AM CHANNEL OPENER 12:29 PM CHANNEL OPENER Olamide Rodney MD LAB_1 Performing Organization Address [facility] Phon e Number HP CONVERSION ALT (SGPT) (08/12/2012 10:14 AM CHANNEL OPENER) [facility] Signature Alanine 32 4 - 55 HP CONVERSION Aminotransferase U/L Specimen Anatomical Collection Method Collection Time Receive d Time (Source) Location / / Volume Laterality 08/12/2012 10:14 08/12/2012 AM CHANNEL OPENER 10:14 AM CHANNEL OPENER Narrative HP CONVERSION - 08/12/2012 11:05 AM CHANNEL OPENER Performed at [facility], [address] [place] [address] Olamide Rodney MD LAB_1 Performing Organization Address City/[facility] Code Phon e Number HP CONVERSION Lipid Panel and Direct LDL(If Needed) (08/12/2012 10:14 AM CHANNEL OPENER) [facility] Method Time Signature Cholesterol 173 0 - 200 HP CONVERSION mg/dL Triglycerides 129 0 - 149 HP CONVERSION mg/dL HDL Cholesterol 75 >39 mg/dL HP CONVERSION Cholesterol/HDL 2.3 HP CONVERSION Ratio Screen LDL Calculated 72 19 - 130 HP CONVERSION mg/dL Length Of Fast 13.0 HP CONVERSION Specimen Anatomical Collection Method Collection Time Receive d Time (Source) Location / / Volume Laterality 08/12/2012 10:14 08/12/2012 AM CHANNEL OPENER 10:14 AM CHANNEL OPENER Narrative HP CONVERSION - 08/12/2012 11:05 AM CHANNEL OPENER Performed at [facility], [address] [place] [address] Olamide Rodney MD LAB_1 Performing Organization Address City/[facility]/ZIP Code Phon e Number HP CONVERSION Ferritin (08/12/2012 10:14 AM CHANNEL OPENER) athologist Signature Ferritin Serum 68 10 - 291 HP CONVERSION ng/mL Specimen Anatomical Collection Method Collection Time Receive d Time (Source) Location / / Volume Laterality 08/12/2012 10:14 08/12/2012 AM CHANNEL OPENER 12:29 PM CHANNEL OPENER Olamide Rodney MD LAB_1 Performing Organization Address City/[facility] Phon e Number HP CONVERSION documented in this encounter Visit Diagnoses Diagnosis S/P gastric bypass Bariatric surgery status Diabetes type 2, controlled (HRC) Type II or unspecified type diabetes rod litus without mention of complication, not stated as uncontrolled documented in this encounter Care Teams Typesetter Perforator Operator Relationship Specialty Start Date End Date Olamide Rodney MD PCP - General 09/25/10 01/11/21 [address] [place], [place] [address] documented as of this encounter
--- OUTSIDE RECORDS SUMMARY | 2022-01-29 17:51 | XMS_ITS | Encounter Summary ---
:1960 Author Organization [employer] Address [address], [place] [address] Care Team Providers Name Role Phone Olamide Rodney MD Primary Care Provider Reason for Visit Reason Comments Hair/Scalp Problem Encounter Details Date Type Department Care Team Description 03/03/2013 Nurse Triage [facility] Olamide Rodney, Hair/Scalp Problem Medicine [address] [address] [facility] [phone] [place] [address] (Wo rk) Social History Tobacco Use Types Packs/Day Years Used Date Smoking Tobacco: Never Alcohol Use Standard Drinks/Week Comments Yes 0 (1 standard drink = 0.6 oz pure alcoho l) mod Sex Assigned at Date Recorded Not on file documented as of this encounter Nursing Notes Allie Santiago, RN - 03/03/2013 9:27 AM CDT Protocol: TRAUMA - [id number] Affirmative: Minor head injury Disposition of Home Care suggested. Spoke with pt. On Thursday 03/01 she fell and hit head on furniture. Denies symptoms, no confusion, blurred vision, headache, dizziness. Feeling fine. She does however have bump on scalp approx 2 in x 1/4 in. Today area started oozing clear fluid, not large amount but continues to ooze for past 30 mins. Area is soft to touch, only mildly painful when pressed on. She did place ice on area for first day. Advised home care, she will call back should any new symptoms arise. Paty Connolly - 03/03/2013 9:17 AM CDT pt fell and hit her head on Friday, and she said she had no sx's, however. she said there is a woundthat is draining on her scalp today documented in this encounter Plan of Treatment Not on filedocumented as of this encounter Visit Diagnoses Not on filedocumented in this encounter Care Teams Seo Strategist Relationship Specialty Start Date End Date Olamide Rodney MD PCP - General 09/25/10 01/11/21 [address] [place] [address] documented as of this encounter
--- OUTSIDE RECORDS SUMMARY | 2022-01-29 17:51 | XMS_ITS | Encounter Summary ---
:1960 Author Organization [employer] Address [address], [place] [address] Care Team Providers Name Role Phone Olamide Rodney MD Primary Care Provider Reason for Visit Reason Comments Pain Encounter Details Date Type Department Care Team Description 10/02/2012 Hospital Encounter [facility] James Magana Congenital deficiency of other clotting factors; Care A, PRASANNA-C Calf pain [address] [place] [phone] Social History Tobacco Use Types Packs/Day Years Used Date Smoking Tobacco: Never Alcohol Use Standard Drinks/Week Comments Yes 0 (1 standard drink = 0.6 oz pure alcoho l) mod Sex Assigned at Date Recorded Not on file documented as of this encounter Last Filed Vital Signs Vital Sign Reading Time Taken Comments Blood Pressure 168/93 10/02/2012 11:23 AM CDT Pulse 76 10/02/2012 11:23 AM CDT Temperature 37.1 ??C (98.8 ??F) 10/02/2012 11:23 AM CDT Respiratory Rate 16 10/02/2012 11:23 AM CDT Oxygen Saturation 100% 10/02/2012 11:23 AM CDT Inhaled Oxygen Concentration - - Weight - - Height - - Body Mass Index - - documented in this encounter Medications at Time of Discharge Medication Sig Dispensed Refills Start Date End Date aspirin 81 MG Take 2 tablets by 3 10/04/2010 tabletIndications: mouth daily (every TROSVIGPATY Fri 24 hours). LW Addl 2013 1:27 PM Stopped Instr:hold until taking aspirin per tien esquivel'd instructions for procedure. ASPIRIN EC 81MG ORAL [...] 09/24/2004 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) 200MCG/INH INHALERIndications: Unspecified asthma(493.90) ([facility]) documented as of this encounter ED Notes James Magana PA-C - 10/02/2012 2:56 PM CDT ED Provider Notes signed by James Magana PA-C at 10/04/12828 Author: James Magana PA-C Service: (none) Author Type: Physician Instrumental Musician Filed: 10/04/12828 Note Time: 10/02/121455 Status: Signed Poultry Scalder: James Magana PA-C (Physician Instrumental Musician) NAME: PATY LLAMAS MR#: [id number] CSN: [id number] AUTHENTICATING CLINICIAN: James Magana PA-C CONFIRM #: [id number] LOC: [facility]RG[facility] ADDENDUM DATE OF VISIT: 10/02/2012 : 1960 ADDENDUM: SUBJECTIVE: The patient has had no recent air travel, but has been driving quite a bit to classes. Has been sitting more in school. Has been more sedentary. She is a nonsmoker. MAP:MEDQ C: CONFIRM #: [id number] James Magana PA-C - 10/02/2012 2:55 PM CDT ED Provider Notes signed by James Magana PA-C at 10/04/12826 Author: James Magana PA-C Service: (none) Author Type: Physician Instrumental Musician Filed: 10/04/12826 Note Time: 10/02/121454 Status: Signed Poultry Scalder: James Magana PA-C (Physician Instrumental Musician) NAME: PATY LLAMAS MR#: [id number] CSN: [id number] AUTHENTICATING CLINICIAN: James Magana PA-C CONFIRM #: [id number] LOC: [facility]RG[facility] PROGRESS NOTE DATE OF VISIT: 10/02/2012 : 1960 SUBJECTIVE: Pleasant 51-year-old patient who, since yesterday, has had some pain in the mid left calf. This is reminiscent of pain she had about 12 years ago when she has diagnosed with DVT. She has a history of Factor V Leiden. She also, in review of her record, has a history of diabetes, has multiple medical problems, including diabetes and endometrial cancer. She denies shortness breath or chest pain. Does not note any acute calf swelling or erythema. Has been trying to work out lately. She notes pain is worse when she is ambulating. She is understandably concerned about the possibility of a clot and comes in today. MEDICATIONS: Please see electronic record. ALLERGIES: Please see electronic record. OBJECTIVE: Pleasant patient, afebrile, well hydrated, not dyspneic or tachypneic. VITALS: Documented in electronic record. CHEST: Clear. HEART: Regular rate and rhythm, no gallop or murmur. Calves, especially left calf, appear grossly unremarkable. Calf circumference is about 2 cm, larger on the left than the right. There is an area of point tenderness without acute discoloration in the mid-superior calf. There is no venous cording or mass noted. Calf is otherwise nontender. Neurovascular status of the foot is intact. Pedal pulses are intact. Knee is nontender. No significant superficial varicosities, erythema, hyperthermia noted. The case was discussed with Dr. Patel. The patient had an ultrasound of the left lower extremity here at [facility], which was unremarkable. I discussed, with patient, that we will need to still closely observe her condition over the weekend and early next week, as there is still a possibility she could be having a subtle clot. She is very comfortable with observing at home. ASSESSMENT: Left calf pain. PLAN: At this point, we will treat as a musculoskeletal issue, topical heat, p.r.n. Tylenol, rest, close observation. She is aware that, over the weekend, if she is having persistent worsening symptoms, particularly increasing pain, erythema, swelling, shortness of breath, chest pain, she is to present ASAPto the ER. If she is having some improvement but still some symptoms early next week, she is to contact her primary to see about consideration of serial ultrasounds next week. Patient is comfortable with this plan, and is discharged in stable condition. MAP:MED C: CONFIRM #: [id number] documented in this encounter Plan of Treatment Not on filedocumented as of this encounter Procedures Procedure Name Priority Date/Time Associated Diagnosis Comme nts US LOWER EXTREMITY Routine 10/02/2012 2:43 PM Congenital Res ults for this LT VENOUS DOPPLER CDT deficiency of other pro cedure are in clotting factors the results (HRC) section. documented in this encounter Results US Lower Extremity Lt Venous Doppler (10/02/2012 2:43 PM CDT) Anatomical Region Laterality Modality Vascular, Leg Other Specimen (Source) Anatomical Location Collection Method / Collectio n Time Received Time / Laterality Volume Narrative 10/02/2012 3:03 PM CDT Left lower extremity Doppler venous ultr asound FINDINGS: No evidence for deep venous th rombosis. Procedure Note Roosevelt Turner MD - 12/09/2015Format ting of this note might be different from the original. Left lower extremity Doppler venous ultr asound FINDINGS: No evidence for deep venous th rombosis. James Magana PA-C [facility] documented in this encounter Visit Diagnoses Diagnosis Congenital deficiency of other clotting factors Calf pain Pain in limb documented in this encounter Care Teams Plate Grainer Apprentice Relationship Specialty Start Date End Date Olamide Rodney MD PCP - General 09/25/10 01/11/21 [address] [facility] [place] [address] documented as of this encounter
--- OUTSIDE RECORDS SUMMARY | 2022-01-29 17:51 | XMS_ITS | Encounter Summary ---
:1960 Author Organization [employer] Address [address] [place] [address] Care Team Providers Name Role Phone Olamide Rodney MD Primary Care Provider Encounter Details Date Type Department Care Team Description 01/25/2014 [facility]500 Bright red rectal Endoscopy bleeding [address] [place], [place] [address] Social History Tobacco Use Types Packs/Day Years Used Date Smoking Tobacco: Never Alcohol Use Standard Drinks/Week Comments Yes 0 (1 standard drink = 0.6 oz pure alcoho l) mod Sex Assigned at Date Recorded Not on file documented as of this encounter Last Filed Vital Signs Vital Sign Reading Time Taken Comments Blood Pressure 148/86 01/25/2014 3:45 PM CDT Pulse 80 01/25/2014 3:45 PM CDT Temperature - - Respiratory Rate 16 01/25/2014 3:45 PM CDT Oxygen Saturation 95% 01/25/2014 3:45 PM CDT Inhaled Oxygen Concentration - - Weight 95.3 kg (210 lb) 01/25/2014 1:29 PM CDT Height 167.6 cm (5' 6) 01/25/2014 1:29 PM CDT Body Mass Index 33.89 01/25/2014 1:29 PM CDT documented in this encounter Medications at Time of Discharge Medication Sig Dispensed Refills Start Date End Date aspirin 81 MG Take 2 tablets by 3 10/04/2010 tabletIndications: mouth daily (every TROSDANIELLEGPATY Fri 24 hours). LW Addl 2013 1:27 PM Stopped Instr:hold until taking aspirin per lovenox dc'd instructions for procedure. cyanocobalamin 1000 MCG Take 1,000 mcg by 0 03/08 tablet mouth daily (every 24 hours). 6 times/week Multiple Vitamins-Minerals Take 2 tablets by 0 (MULTIVITAMIN ADULT OR) mouth daily (every 24 hours). BIOTIN OR Take by mouth. 500 0 09/08/20132013 mg day ASPIRIN EC 81MG ORAL TABS 3 TABLETS DAILY 0 11/0704/02/2016 CALCIUM + D 600-200 MG-IU 3 TABLET DAILY 0 200204/02/2016 OR TABS CYANOCOBALAMIN 1000 MCG SL 1 every other day 0 99 04/02/2016 SUBL FLINTSTONES PLUS IRON OR 2 per day 0 03/24/2003 04/02/2016 CHEW PIRBUTEROL ACETATE (MAXAIR use as directed prn 1 0 09/24/2004 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) 200MCG/INH INHALERIndications: Unspecified asthma(493.90) ([facility]) documented as of this encounter Progress Notes Sadiatrevordeon Paty Mtz - 01/25/2014 3:14 PM CDT Very difficult procedure but patient tolerated it well. Many position changes, multiple doses of sedation and pressure held to abdomen to facilitate passage of scope. documented in this encounter Procedure Notes Tio Stevens MD - 01/25/2014 1:08 PM CDT Procedures signed by Tio Stevens MD at 01/25/14 1778 Author: Tio Stevens MD Service: (none) Author Type: Physician Filed: 01/25/14 1518 Note Time: 01/25/141517 Status: Signed Emergency Generator Mechanic: Tio Stevens MD (Physician) Patient Name: Paty Stovall Procedure Date: 01/25/2014 1:08 PM Date of : 1960 Admit Type: Outpatient Age: 53 Gender: Female Note Status: Finalized Attending MD: Toi Stevens MD Procedure: Colonoscopy Indications: Rectal bleeding, FH of Colon Cancer - 1st degree relative Providers: Tio Stevens MD, Barbara Boles RN Referring MD: Olamide Rodney Medicines: Midazolam 4 mg IV, Fentanyl 100 micrograms IV Complications: No immediate complications. Procedure: After I obtained informed consent, the scope was passed under direct vision. Throughout the procedure, the patient's blood pressure, pulse, and oxygen saturations were monitored continuously. The [id number] was introduced through the anus and advanced to the cecum, identified by appendiceal orifice & ileocecal valve. The colonoscopy was unusually difficult due to significant looping, the patient's body habitus, patient immobility, and a redundant colon. Findings: The digital rectal exam showed no masses. Multiple diverticula were found in the sigmoid colon. Impression: - Diverticulosis in the sigmoid colon. - Suspect blood per rectum was outlet bleeding. Recommendation: - High fiber diet. - Repeat colonoscopy in 5 years for surveillance using an adult adjustable scope. Procedure Code(s): --- Professional --- 70214, Colonoscopy, flexible, proximal to splenic flexure; diagnostic, with or without collection of specimen(s) by brushing or washing, with or without colon decompression (separate procedure) Diagnosis Code(s): --- Professional --- 569.3, Hemorrhage of rectum and anus V16.0, Family history of malignant neoplasm of gastrointestinal tract 562.10, Diverticulosis of colon (without mention of hemorrhage) CPT (R) 2012 [employer]. All Rights Reserved. The codes documented in this report are preliminary and upon office professionals review may be revised to meet current compliance requirements. Tio Stevens MD 01/25/2014 3:18 PM This document has been electronically signed. Number of Addenda: 0 Note Initiated On: 01/25/2014 1:08 PM Endoscopy Report documented in this encounter Miscellaneous Notes Medication History - Tirso Piedra MD - 01/25/2014 11:59 PM CDT INPATIENT MEDS Encounter Date: 01/25/14 0.9% sodium chloride latex free syringe 10 mL Start Date:01/25/14, End Date:01/26/14, Frequency:PRN Taken Dose Action User Route Site Recorded Comment Reason 01/25/14 1511 15 mL Given Paty Boles RN Intravenous - 01/25/14 1511 - - fentanyl (SUBLIMAZE) injection 25-100 mcg Start Date:01/25/14, End Date:01/26/14, Frequency:PRN Taken Dose Action User Route Site Recorded Comment Reason 01/25/14 1511 200 mcg Given Paty Boles RN Intravenous - 01/25/14 1512 - - midazolam (VERSED) injection 0.5-2 mg Start Date:01/25/14, End Date:01/26/14, Frequency:PRN Taken Dose Action User Route Site Recorded Comment Reason 01/25/14 1512 4 mg Given Paty Boles RN Intravenous - 01/25/14 1513 - - ondansetron (ZOFRAN) injection 4 mg Start Date:01/25/14, End Date:01/26/14, Frequency:ONCE PRN *No Administrations Recorded fentanyl (SUBLIMAZE) 100 mcg/2 mL (50 mcg/mL) injection Start Date:01/25/14, End Date:-, Frequency:- *No Administrations Recorded midazolam (VERSED) 2 mg/2 mL (1 mg/mL) injection Start Date:01/25/14, End Date:-, Frequency:- *No Administrations Recorded 0.9% sodium chloride latex free syringe Start Date:01/25/14, End Date:-, Frequency:- *No Administrations Recorded 0.9% sodium chloride latex free syringe Start Date:01/25/14, End Date:-, Frequency:- *No Administrations Recorded documented in this encounter Plan of Treatment Not on filedocumented as of this encounter Visit Diagnoses Diagnosis Bright red rectal bleeding Hemorrhage of rectum and anus documented in this encounter Care Teams Cue Worker Relationship Specialty Start Date End Date Olamide Rodney MD PCP - General 09/25/10 01/11/21 [address] [place] [address] documented as of this encounter
--- OUTSIDE RECORDS SUMMARY | 2022-01-29 17:51 | XMS_ITS | Encounter Summary ---
:1960 Author Organization [employer] Address [address] [place] [address] Care Team Providers Name Role Phone Olamide Rodney MD Primary Care Provider Encounter Details Date Type Department Care Team Description 03/02/2013 Lab Visit [facility] Macrocytosis without anemia; [address] [facility] Diabetes type 2, [place] [address] Social History Tobacco Use Types Packs/Day Years [...] Associated Diagnosis Comme nts ALBUMIN/CREAT RATIO Routine 03/02/2013 10:23 Diabetes type 2, Results for this AM CDT controlled (HRC) procedure a re in the results section. COMPLETE BLOOD Routine 03/02/2013 10:09 Macrocytosis without R esults for this COUNT-W/DIFF AM CDT anemia procedure are i n the results section. DIFFERENTIAL Routine 03/02/2013 10:09 Results for this AM CDT procedure are i n the results section. HGB A1C Routine 03/02/2013 10:09 Diabetes type 2, Results for this AM CDT controlled (HRC) procedure a re in the results section. documented in this encounter Results Microalb/Creat Ratio (03/02/2013 10:23 AM CDT) Analysis Performed At Patho logist Time Signature Microalbumin 13.0 mg/L HP CONVERSION Urine U Creat Random 241 mg/dL HP CONVERSION Microalbumin/Crea 5.4 0.0 - 30.0 HP CONVERSI ON tinine Ratio Specimen Anatomical Collection Method Collection Time Receive d Time (Source) Location / / Volume Laterality 03/02/2013 10:23 03/02/2013 AM CDT 12:15 PM CDT Olamide Rodney MD LAB_1 Performing Organization Address City/[facility] Code Phon e Number HP CONVERSION Differential (03/02/2013 10:09 AM CDT) athologist Signature Absolute 3.9 1.8 - 8.0 HP CONVERSION Neutrophils k/cmm Absolute 1.5 1.1 - 4.0 HP CONVERSION Lymphocytes k/cmm Absolute 0.6 0.2 - 0.8 HP CONVERSION Monocytes k/cmm Absolute 0.1 0.0 - 0.5 HP CONVERSION Eosinophils k/cmm Absolute 0.0 0.0 - 0.2 HP CONVERSION Basophils k/cmm Specimen Anatomical Collection Method Collection Time Receive d Time (Source) Location / / Volume Laterality 03/02/2013 10:09 03/02/2013 AM CDT 10:09 AM CDT Narrative HP CONVERSION - 03/02/2013 10:23 AM CDT Performed at [facility], [address] [place] [address] Olamide Rodney MD LAB_1 Performing Organization Address City/[facility] Code Phon e Number HP CONVERSION Hgb A1c (03/02/2013 10:09 AM CDT) athologist Signature HGB A1C 5.8 0.0 - 6.0 % HP CONVERSION Specimen Anatomical Collection Method Collection Time Receive d Time (Source) Location / / Volume Laterality 03/02/2013 10:03/02/2013 AM CDT 12:15 PM CDT Olamide Rodney MD LAB_1 Performing Organization Address City/[facility] Code Phon e Number HP CONVERSION (ABNORMAL) Complete Blood Count W/Diff (03/02/2013 10:09 AM CDT) Patholo gist Method Time Signature White Blood Cell 6.1 3.8 - HP CONVERSION Count 11.0 k/cmm Red Blood Cell 4.08 3.70 - HP CONVERSION Count 5.20 m/cmm Hemoglobin 14.5 11.8 - HP CONVERSION 15.5 g/dL Hematocrit 43.2 35.0 - HP CONVERSION 46.0 % Mean Corpuscular 105.7 (H) 80.0 - HP CONVERSION Volume 100.0 fL RDW 12.7 11.0 - HP CONVERSION 15.0 % Platelet Count 206 140 - 450 HP CONVERSION k/cmm Specimen Anatomical Collection Method Collection Time Receive d Time (Source) Location / / Volume Laterality 03/02/2013 10:09 03/02/2013 AM CDT 10:09 AM CDT Narrative HP CONVERSION - 03/02/2013 10:23 AM CDT Performed at [facility], [address] [place] [address] Olamide Rodney MD LAB_1 Performing Organization Address City/State/ZIP Code Phon e Number HP CONVERSION documented in this encounter Visit Diagnoses Diagnosis Macrocytosis without anemia Other specified diseases of blood and bl ood-forming organs Diabetes type 2, controlled (HRC) Type II or unspecified type diabetes rod litus without mention of complication, not stated as uncontrolled documented in this encounter Care Teams Signal Operator Linguist Relationship Specialty Start Date End Date Olamide Rodney MD PCP - General 09/25/10 01/11/21 [address] [place], [place] [id number] documented as of this encounter
--- OUTSIDE RECORDS SUMMARY | 2022-01-29 17:51 | XMS_ITS | Encounter Summary ---
:1960 Author Organization [employer] Address [address], [place] [address] Care Team Providers Name Role Phone Olamide Rodney MD Primary Care Provider Reason for Visit Reason Comments Annual Exam Encounter Details Date Type Department Care Team Description 08/19/2011 Office Visit [facility] Olamide Rodney physical examination (Primary Dx); Hayley Antoine MD Need for xsvbnalwba-xxkcsoj-ucaqtxitc (T dap) vaccine; [address] Diabetes type 2, [place] [address] [facility] [phone] [place], [place] [address] (Wo rk) Social History Tobacco Use Types Packs/Day Years Used Date Smoking Tobacco: Never Alcohol Use Standard Drinks/Week Comments Yes 0 (1 standard drink = 0.6 oz pure alcoho l) mod Sex Assigned at Date Recorded Not on file documented as of this encounter Last Filed Vital Signs Vital Sign Reading Time Taken Comments Blood Pressure 126/80 08/19/2011 12:03 PM DRUG ENFORCEMENT AGENT Pulse 64 08/19/2011 12:03 PM DRUG ENFORCEMENT AGENT Temperature - - Respiratory Rate - - Oxygen Saturation - - Inhaled Oxygen Concentration - - Weight 94.3 kg (208 lb) 08/19/2011 12:03 PM DRUG ENFORCEMENT AGENT Height 164.5 cm (5' 4.75) 08/19/2011 12:03 PM DRUG ENFORCEMENT AGENT Body Mass Index 34.88 08/19/2011 12:03 PM DRUG ENFORCEMENT AGENT documented in this encounter Patient Instructions Patient InstructionsOlamide Rodney MD - 08/19/2011 12:28 PM CST Have non fasting labs in about 6 months, sometime in January. Please call [phone] to schedule your lab appointment. Then follow up in clinic with me for a diabetic recheck (follow up visit). ENFORCEMENT AGENT documented in this encounter Progress Notes Olamide Rodney MD - 08/19/2011 12:53 PM CST Preventive Physical Exam: 08/19/2011 SUBJECTIVE: 50 y.o. year old female for a physical exam. Zostavax 2008. Pneumonia vaccine 2005. Tetanus diphtheria 1999. Adacel unknown. Had seasonal flu shot. Was diagnosed with endometrial cancer, recent Pap and exam. Seeing Dr. Madrid now. Had the DAVID and BSO. She remotely had a DVT on controlpills. She is sexually active and denies risk for STD. Her had vasectomy. Pap smears have been normal. She does do self-breast exam. No history of breast biopsy. Gets annual mammograms, is due for that. She is working out at the gym 3 times per week 30 minutes doing weights and cardio. Bone density approximately 2008 outside [facility], due in 5 years for repeat. Colonoscopy 2009 outside [facility], patient states it was normal. She has type 2 diabetes mellitus which became quiescent after her gastric bypass. Her current weightis stable. Her A1c has increased to 5.8. Immunization History Administered Date(s) Administered ??? Influenza TIV 0.5ml (36+ mos) 04/03/2005, 05/06/2006, 05/22/2007, 04/01/2010 ??? Influenza TIV 36+ mos 03/29/2011 ??? Pneumococcal vaccine (pneumovax) 10/02/2005 ? ? Td Adult (>7 years) 12/11/1999 Past Medical History Diagnosis Date ??? Deep [...] Modifier: abdominal plasty LW Onset: 06/27 ??? [place] tooth extraction ??? Eye surgery PRK ??? David and bso endometrial cancer ??? Cholecystectomy Patient Active Problem List Diagnoses Code ??? Deep Venous Thrombosis 453.9 ??? Factor V Leiden 286.3 ??? Hernia Hiatal 553.3 ??? Lumbar Disc Degeneration 722.52 ??? Diabetes type 2, controlled 250.00GM ??? Chronic insomnia 780.52BJ ??? Actinic keratoses 702.0Q ??? Nondependent alcohol abuse 305.00AH ??? Chronic abdominal pain 789.00BQ ??? Varicose veins 454.9E ??? Superficial thrombophlebitis 451.9AA ??? S/P gastric bypass V45.86N ??? Hx of cancer of endometrium V10.42K ??? 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 Traveling to [place] soon. Allergies Allergen Reactions ??? Contrast Media LW CM1: >>> NO CONTRAST ADVERSE REACTION <<< Reaction : ??? Other LW Other1: -NONE KNOWN ??? Oxycodone-acetaminophen LW Reaction: Itching, Pruritis ??? Food Intolerance LW FI1: NO KNOWN FOOD ALLERGIES OR INTOLERANCES LW FI2: NO KNOWN FOOD ALLERGIES OR INTOLERANCES ??? Flovent (Fluticasone) laryngitis Current outpatient prescriptions Medication Sig ??? aspirin 81 mg tablet Take 2 tablets by mouth daily (every 24 hours). LW Addl Instr:hold until lovenox dc'd ??? Calcium-Vitamin D3-Vitamin K (VIACTIV) 500-200-40 mg-unit-mcg Chew 3 times daily. ??? cyanocobalamin (VITAMIN B-12) 1,000 mcg tablet Take by mouth twice a week. ??? multivitamin (THERAGRAN) tablet Take 1 tablet by mouth daily (every 24 hours). ??? op medications reviewed ??? pirbuterol (MAXAIR AUTOHALER) 200 mcg/Inhalation inhaler Take 1-2 puffs by mouth every 4 hours as needed. LW Addl Instr:Indicated for: Asthma Family History Problem Relation Age of Onset ??? Conversion Family History LW Problem: V16.0 Ca Colon Fam Hx LW Modifier: colonoscopy at 10/2004 LW Onset: Habits: reports that she has never smoked. She has never used smokeless tobacco. reports that she drinks alcohol. has no drug history on file. Review of Systems: With the exception of any items noted above, the remainder of the complete ROS is negative. OBJECTIVE: Vital Signs: height is 1.645 m (5' 4.75) and weight is 94.348 kg (208 lb). Her blood pressure is 126/80 and her pulse is 64. , Body mass index is 34.88 kg/(m^2). General: Obese white female, alert, in NAD. HEENT: PERRLA, EOMI, [...] gait without edema, lesions, or deformity. Pelvic: deferred. Rectal: deferred. Neuro: CN II-XII, motor & sensory function all intact. Psychiatric: Alert & oriented with normal affect and insight. ASSESSMENT: 1. Encounter Diagnoses Name Primary? Routine physical examination Yes ??? Need for gmcewbucxa-efnzmwb-leskzweoz (Tdap) vaccine ??? Diabetes type 2, controlled PLAN: 1. Physical exam, clinical breast exam completed. She will continue to follow with Dr. Madrid for herhistory of endometrial cancer. Recommend monthly self breast exam, schedule annual mammogram. Reviewed multiple labs drawn prior to the visit. A1c up to 5.8. MCV slightly elevated from alcohol use. Labs As noted below in 6 months. Followup after that. 2. Orders Placed This Encounter Procedure ??? Tdap (Adacel) ??? Hemoglobin A1C, Rapid-N/O ??? Microalbumin Urine Random Patient Instructions Have non fasting labs in about 6 months, sometime in January. Please call [phone] to schedule your lab appointment. Then follow up in clinic with me for a diabetic recheck (follow up visit). General preventive health measures were reviewed with patient. Labs: We will mail lab results to patient or contact patient if needed by phone for significant abnormals. *SH~DNS~PEF documented in this encounter Plan of Treatment Not on filedocumented as of this encounter Visit Diagnoses Diagnosis Routine physical examination - Primary Routine general medical examination at a health care facility Need for jbkmvnqxhf-zjflabs-mtlhojara (T dap) vaccine Need for prophylactic vaccination with c ombined xqzofggtnp-qdddzwc-uyqknvtqi (DTP) vaccine Diabetes type 2, controlled (HRC) Type II or unspecified type diabetes rod litus without mention of complication, not stated as uncontrolled documented in this encounter Care Teams Publicity Writer Relationship Specialty Start Date End Date Olamide Rodney MD PCP - General 09/25/10 01/11/21 [address] [place] [address] documented as of this encounter
--- OUTSIDE RECORDS SUMMARY | 2022-01-29 17:51 | XMS_ITS | Encounter Summary ---
:1960 Author Organization [facility] Address [address] [place] [address] Care Team Providers Name Role Phone Olamide Rodney MD Primary Care Provider Reason for Visit Reason Comments SKIN PROBLEM Encounter Details Date Type Department Care Team Description 05/27/2013 Office Visit [facility] Elizabet Drew Actinic keratosis (Primary D x); [address] [facility] JOVAN Antoine Inflamed [place] [address] [facility] [phone] [address] [place] [address] Social History Tobacco Use Types Packs/Day Years Used Date Smoking Tobacco: Never Alcohol Use Standard Drinks/Week Comments Yes 0 (1 standard drink = 0.6 oz pure alcoho l) mod Sex Assigned at Date Recorded Not on file documented as of this encounter Progress Notes Elizabet Drew - 05/27/2013 8:31 AM CST Progress Notes signed by Elizabet Drew PA-C at 05/27/13 3793 Author: Elizabet Drew PA-C Service: (none) Author Type: Physician Extrusion Die Template Maker Filed: 05/27/13 8767 Note Time: 05/27/13914 Status: Signed Coffin Maker: Elizabet Drew PA-C (Physician Extrusion Die Template Maker) NAME: FARHADPATY MR#: [id number] CSN: [id number] AUTHENTICATING CLINICIAN: Elizabet Drew PA-C CONFIRM #: [id number] LOC: 527 CLINIC PROGRESS NOTE DATE OF VISIT: 05/27/2013 : 1960 Paty is a 52-year-old female, who presents for evaluation of a lesion along the right zoroastrianism. She has noticed some scaling here over the last few months. She also wonders about a lesion along the right upper arm which she thought was a mole and recently had an acne lesion show up in the same spot. She does feel that seems to be improving in appearance, but admits that it is hard for her not to pick at. Her past skin history is significant for actinic keratosis along the right upper cheek which was treated 3 times with cryotherapy and failed to resolve completely and therefore was treated with cautery. This was done by Dr. Brink, who Paty last saw on March 18, 2011. FAMILY HISTORY: Significant for mother having unknown type of skin cancer. CURRENT MEDICATIONS: Reviewed and updated in [facility]. ALLERGIES: Reviewed and updated in [facility]. EXAMINATION: Patient is a pleasant, alert, and oriented 52-year-old female. She defers full- body exam today. Exam was localized to the scalp, face, right upper arm. On examination of the right temporal hairline, she has a skin-colored to pink keratotic macule less than 3 mm in diameter consistent with actinickeratosis. Just inferior to this, along the right inferior and temporal scalp, is a skin-colored keratotic stuck- on papule consistent with a seborrheic keratosis on dermoscopy. Left preauricular area is completely clear as she does recall having some scaling here in the past. The right upper cheek is completely clear. A few skin-colored to yellow macules and papules along the right cheek consistent with sebaceous hyperplasia. Several telangiectasia along bilateral cheeks. Some dark coarse hair growth along the upper lip and chin. Significant thinning along the frontal scalp with 4-5 excoriated areas evident. No concerning lesions evident surrounding the excoriations. On examinationof the right lateral upper arm, she has an approximately 4 mm skin-colored to pink papule appearing to be an intradermal nevus that is irritated. No concerning signs are noted. ASSESSMENT AND PLAN: 1. Actinic keratoses along the right temporal hairline. Discussed treatment options, and patient consents to cryotherapy today. Therefore, the lesion was treated with 2 freeze-thaw cycles of liquid nitrogen via Cry-Ac. Patient tolerated procedure well and routine aftercare directions were discussed. 2. Irritated seborrheic keratoses along the right temporal scalp. Patient consents to cryotherapy here as well. She does find this to be irritating and therefore the lesion was treated with 2 freeze-thaw cycles of liquid nitrogen via Cry-Ac. Patient tolerated procedure well and routine aftercare directions were discussed. 3. Benign-appearing intradermal nevus along the right upper arm. Cannot rule out dermatofibroma as well, due to the recent irritation in the area. No concerning signs are evident. Continue to observe closely and reviewed worrisome signs and changes to watch for. 4. Hypertrichosis along the face. Patient is aware of a strong genetic tendency for this in her family as well as hair thinning. Patient had laser hair removal previously with excellent results but admits that the clinic went out of business. Gave option of scheduling with our dept vs. Dr. Mayorga's office. Patient will consider and is interested in treatment soon and will schedule with Dr. Mayorga since PN is not up and running with laser hair removal yet. Also discussed Rogaine Foam. Patientwould like to try this as she disliked the feeling of previous Rogaine. 5. I recommended follow up in 6 months or sooner should she notice any recurrence of the actinic keratoses along the right temporal hairline. SMC:MEDQ C: CONFIRM #: [id number] P PRESS OPERATOR documented in this encounter Plan of Treatment Not on filedocumented as of this encounter Visit Diagnoses Diagnosis Actinic keratosis - Primary Inflamed seborrheic keratosis documented in this encounter Care Teams Vaccine Manager Relationship Specialty Start Date End Date Olamide Rodney MD PCP - General 09/25/10 01/11/21 [address] [place] [address] documented as of this encounter
--- OUTSIDE RECORDS SUMMARY | 2022-01-29 17:51 | XMS_ITS | Encounter Summary ---
:1960 Author Organization [employer] Address [address] [place] [address] Care Team Providers Name Role Phone Olamide Rodney MD Primary Care Provider Reason for Referral Specialty Diagnoses / Procedures Referred By Contact Refer red To Contact Olamide Rodney MD [facility] [place], [place] [address] Referral ID Status Reason Start Date Expiration Date Visits Requ ested Visits Authorized Reason for Visit Reason Comments Other Encounter Details Date Type Department Care Team Description 09/25/2012 Initial Consult [facility] Marti [place], Other examination of ears an d hearing (Primary Dx); [address] [facility] [place] [address] [address] [phone] [place] [address] Social History Tobacco Use Types Packs/Day Years Used Date Smoking Tobacco: Never Alcohol Use Standard Drinks/Week Comments Yes 0 (1 standard drink = 0.6 oz pure alcoho l) mod Sex Assigned at Date Recorded Not on file documented as of this encounter Progress Notes Marti [place] AU.D. - 10/24/2012 10:36 AM CDT Progress Notes signed by ALLEGRA Ghosh at 10/25/12 1514 Author: ALLEGRA Ghosh Service: (none) Author Type: Literature Professor Filed: 10/25/12 1514 Note Time: 10/24/12 1225 Status: Signed Wax Blender: ALLEGRA Ghosh (Literature Professor) NAME: PATY LLAMAS MR#: [id number] CSN: [id number] AUTHENTICATING CLINICIAN: Allegra Ghosh CONFIRM #: [id number] LOC: 581 CLINIC PROGRESS NOTE DATE OF VISIT: 09/25/2012 : 1960 SUBJECTIVE: Paty was seen today for a hearing evaluation upon referral by Dr. Olamide Rodney. Paty is requesting a baseline audiogram. She states that she does hear constant sound in her ears, but is not certain if it is her ears or an environmental sound she is picking up. OBJECTIVE: Pure tone thresholds reveal normal hearing sensitivity across frequencies for both ears. Speech campus receptionist thresholds were 5 dB in each ear. Word recognition scores were 96% for the right ear and 100% for the left. Tympanometry revealed normal middle ear compliance and pressure bilaterally. ASSESSMENT: Normal audiometric findings. PLAN: Following testing these results were discussed with Paty. I recommend a recheck of hearing sensitivity as needed. IMPRESSION: Normal audiometric findings bilaterally. [facility]:DUANE C: CONFIRM #: [id number] documented in this encounter Plan of Treatment Scheduled Referrals Name Type Priority Associated Diagnoses Order S [facility] Audiology Referral Routine Hearing loss Ordered: 2012 Consult-Adult/Peds documented as of this encounter Visit Diagnoses Diagnosis Other examination of ears and hearing - Primary Hearing loss Unspecified hearing loss documented in this encounter Care Teams Stoker Erector And Servicer Relationship Specialty Start Date End Date Olamide Rodney MD PCP - General 09/25/10 01/11/21 [address] [place] [address] documented as of this encounter
--- OUTSIDE RECORDS SUMMARY | 2022-01-29 17:51 | XMS_ITS | Encounter Summary ---
:1960 Author Organization [employer] Address [address] [place] [address] Care Team Providers Name Role Phone Olamide Rodney MD Primary Care Provider Encounter Details Date Type Department Care Team Description 09/02/2013 Lab Visit [facility] S/P gastric bypass; [address] [facility] [place] [place] Diabetes type 2, controlled; [place] [address] Macrocytosis without anemia [phone] Social History Tobacco Use Types Packs/Day Years Used Date Smoking Tobacco: Never Alcohol Use Standard Drinks/Week Comments Yes 0 (1 standard drink = 0.6 oz pure alcoho l) mod Sex Assigned at Date Recorded Not on file documented as of this encounter Plan of Treatment Not on filedocumented as of this encounter Procedures Procedure Name Priority Date/Time Associated Diagnosis Comme nts SURGICAL PATHAMBROCIO Routine 09/02/2013 12:00 Resu lts for this NICOLLET PM CDT procedure are i n the results section. TSH AND FREE T4 (FRT4 Routine 09/02/2013 10:26 S/P gastric byp ass Results for this IF TSH ABNORM) AM CDT procedure are in the results section. PERIPHERAL BLOOD Routine 09/02/2013 10:26 Macrocytosis without Results for this SMEAR AM CDT anemia procedure are i n the results section. LIPID PANEL AND Routine 09/02/2013 10:26 Diabetes type 2, Resu lts for this DIRECT LDL(IF NEEDED) AM CDT controlled (HRC) pr ocedure are in the results section. VITAMIN D 25-HYDROXY, Routine 09/02/2013 10:26 S/P gastric byp ass Results for this TOTAL AM CDT procedure are i n the results section. CREATININE / GFR Routine 09/02/2013 10:26 S/P gastric bypass R esults for this AM CDT procedure are i n the results section. COMPLETE BLOOD Routine 09/02/2013 10:26 Macrocytosis without R esults for this COUNT-W/DIFF AM CDT anemia procedure are i n the results section. DIFFERENTIAL Routine 09/02/2013 10:26 Results for this AM CDT procedure are i n the results section. ELECTROLYTE PANEL Routine 09/02/2013 10:26 S/P gastric bypass Results for this AM CDT procedure are i n the results section. VIT B12 & FOLATE Routine 09/02/2013 10:26 S/P gastric bypass R esults for this AM CDT procedure are i n the results section. FERRITIN Routine 09/02/2013 10:26 S/P gastric bypass Resul ts for this AM CDT procedure are i n the results section. HGB A1C Routine 09/02/2013 10:26 Diabetes type 2, Results for this AM CDT controlled (HRC) procedure a re in the results section. ALT (SGPT) Routine 09/02/2013 10:26 S/P gastric bypass Resul ts for this AM CDT procedure are i n the results section. CALCIUM Routine 09/02/2013 10:26 S/P gastric bypass Resul ts for this AM CDT procedure are i n the results section. BUN Routine 09/02/2013 10:26 S/P gastric bypass Resul ts for this AM CDT procedure are i n the results section. documented in this encounter Results Pathology Report (09/02/2013 12:00 PM CDT) Specimen (Source) Anatomical Collection Method Collection Time Re ceived Time Location / / Volume Laterality 09/02/2013 12:00 PM CDT Narrative HP CONVERSION - 09/03/2013 10:18 AM CDT ?FINAL PERIPHERAL BLOOD SMEAR MORPHOLOGY Pathology #: [id number] ?Date Obtained: 09/02/2013 ? Date Received: 09/03/2013 DIAGNOSIS: Macrocytic red cells, normal hemoglobin . Comment: No specific features of patient peripheral blood The patient's macrocytosis. ??Differenti al diagnosis could include drug effect, ethanol use, liver thyroid disea se among others. ??Clinical correlation is recommended. ?DYANA BUTLER MD ? (electronic signature) ? 09/03/2013 ??10:08 INDICES: ?? WBC ? 4.0 ??k/cmm ?? RBC ? 4.25 m/cmm ?? HGB ?15.2 ??gm/dl ?? MCV ?? 105.6 ??fl ?? RDW ?13.1 ??% ?? PLT ? 217 ??k/cmm RED CELLS: The red cells are normal in number and m acrocytic. ??There is no marked anisopoikilocytosis. ??I see no evidence of ongoing hemolysis, rouleaux formation, or polychromasia. PLATELETS: The platelets are normal in number and m orphology. WHITE CELLS: The white cells are normal in number. ABSOLUTE COUNTS: ?? Neutrophils ??1.7 k/ul ?? Lymphocytes ??1.9 k/ul ?? Monocytes ?0.3 k/ul ?? Eosinophils ??0.1 k/ul ?? Basophils ?0.0 k/ul The neutrophils show normal segmentation and granulation. ??No circulating blasts or atypical lymphoid population identified. ?GARCIA CPT Codes: ?60398 x 1 ? End of Report Olamide Rodney MD LAB_1 Performing Organization Address City/State/ZIP Code Phon e Number HP CONVERSION (ABNORMAL) Differential (09/02/2013 10:26 AM CDT) Patholo gist Method Time Signature Absolute 1.7 (L) 1.8 - 8.0 HP CONVERSION Neutrophils Absolute 1.9 1.1 - 4.0 HP CONVERSION Lymphocytes Absolute 0.3 0.2 - 0.8 HP CONVERSION Monocytes Absolute 0.1 0.0 - 0.5 HP CONVERSION Eosinophils Absolute 0.0 0.0 - 0.2 HP CONVERSION Basophils Specimen Anatomical Collection Method Collection Time Receive d Time (Source) Location / / Volume Laterality 09/02/2013 10:26 09/02/2013 AM CDT 10:26 AM CDT Narrative HP CONVERSION - 09/02/2013 11:05 AM CDT Performed at [facility] ([facility] [address] [place] [address] Olamide Rodney MD LAB_1 Performing Organization Address [facility] Code Phon e Number HP CONVERSION PERIPHERAL BLOOD SMEAR (09/02/2013 10:26 AM CDT) athologist Signature Peripheral Done HP CONVERSION Blood Smear Specimen Anatomical Collection Method Collection Time Receive d Time (Source) Location / / Volume Laterality 09/02/2013 10:26 09/02/2013 4:03 AM CDT PM CDT Olamide Rodney MD LAB_1 Performing Organization Address City/[facility] Code Phon e Number HP CONVERSION (ABNORMAL) Vit B12 & Folate (09/02/2013 10:26 AM CDT) Analysis Performed At Patho logist Time Signature Vitamin B12 1,467 (H) 211 - 911 HP CONVERSION pg/dL Serum Folate 23.3 >5.9 ng/mL HP CONVERSION Specimen Anatomical Collection Method Collection Time Receive d Time (Source) Location / / Volume Laterality 09/02/2013 10:26 09/02/2013 AM CDT 12:18 PM CDT Olamide Rodney MD LAB_1 Performing Organization Address City/[facility]/ZIP Code Phon e Number HP CONVERSION Calcium (09/02/2013 10:26 AM CDT) athologist Signature Calcium 9.8 8.5 - 10.5 HP CONVERSION mg/dL Specimen Anatomical Collection Method Collection Time Receive d Time (Source) Location / / Volume Laterality 09/02/2013 10:26 09/02/2013 AM CDT 10:26 AM CDT Narrative HP CONVERSION - 09/02/2013 11:30 AM CDT Performed at [facility] ([facility] [address] [place] [address] Olamide Rodney MD LAB_1 Performing Organization Address [facility] Phon e Number HP CONVERSION Vitamin D 25-Hydroxy, Total (09/02/2013 10:26 AM CDT) athologist Signature Vitamin D 25 Oh 25 20 - 80 HP CONVERSION ng/mL Comment: Deficiency = <20 Adequate ??= 20-29 Preferred = 30-50 Uncertain safety = 51-80 High = >80 Specimen Anatomical Collection Method Collection Time Receive d Time (Source) Location / / Volume Laterality 09/02/2013 10:26 09/02/2013 AM CDT 12:17 PM CDT Olamide Rodney MD LAB_1 Performing Organization Address [facility] Phon e Number HP CONVERSION Electrolyte Panel (09/02/2013 10:26 AM CDT) athologist Signature Sodium 144 137 - 147 HP CONVERSION Potassium 4.3 3.5 - 5.2 HP CONVERSION Chloride 106 98 - 110 HP CONVERSION Bicarbonate 32 23 - 33 HP CONVERSION mmol/L Specimen Anatomical Collection Method Collection Time Receive d Time (Source) Location / / Volume Laterality 09/02/2013 10:26 09/02/2013 AM CDT 10:26 AM CDT Narrative HP CONVERSION - 09/02/2013 11:30 AM CDT Performed at [facility] ([facility] [address] [place] [address] Olamide Rodney MD LAB_1 Performing Organization Address [facility] Phon e Number HP CONVERSION BUN (09/02/2013 10:26 AM CDT) athologist Signature Blood Urea <10 5 - 26 HP CONVERSION Nitrogen mg/dL Specimen Anatomical Collection Method Collection Time Receive d Time (Source) Location / / Volume Laterality 09/02/2013 10:26 09/02/2013 AM CDT 10:26 AM CDT Narrative HP CONVERSION - 09/02/2013 11:30 AM CDT Performed at [facility] [address] [place] [address] Olamide Rodney MD LAB_1 Performing Organization Address City/[facility] Phon e Number HP CONVERSION Creatinine / GFR (09/02/2013 10:26 AM CDT) athologist Signature Creatinine 0.8 0.4 - 1.3 HP CONVERSION Serum mg/dL Est GFR >60 >60 HP CONVERSION Am Est GFR Non-Afr >60 >60 HP CONVERSION Am Comment: Normal>60, moderate decrease 30 - 59, se viktoriya decrease 15 - 29, renal failure <15 mL/min/1.73 m2 NOTE: ??Choose the eGFR result above mary ropriate for the race of the patient. Specimen Anatomical Collection Method Collection Time Receive d Time (Source) Location / / Volume Laterality 09/02/2013 10:26 09/02/2013 AM CDT 10:26 AM CDT Narrative HP CONVERSION - 09/02/2013 11:30 AM CDT Performed at [facility] [address] [place] [address] Olamide Rodney MD LAB_1 Performing Organization Address City/[facility] Phon e Number HP CONVERSION (ABNORMAL) Complete Blood Count W/Diff (09/02/2013 10:26 AM CDT) [facility] gist Method Time Signature White Blood Cell 4.0 3.8 - HP CONVERSION Count 11.0 Red Blood Cell 4.25 3.70 - HP CONVERSION Count 5.20 Hemoglobin 15.2 11.8 - HP CONVERSION 15.5 g/dL Hematocrit 44.9 35.0 - HP CONVERSION 46.0 % Mean Corpuscular 105.6 (H) 80.0 - HP CONVERSION Volume 100.0 fL RDW 13.1 11.0 - HP CONVERSION 15.0 % Platelet Count 217 140 - 450 HP CONVERSION Specimen Anatomical Collection Method Collection Time Receive d Time (Source) Location / / Volume Laterality 09/02/2013 10:26 09/02/2013 AM CDT 10:26 AM CDT Narrative HP CONVERSION - 09/02/2013 11:05 AM CDT Performed at [facility] [address] [place] [address] Olamide Rodney MD LAB_1 Performing Organization Address [facility] Phon e Number HP CONVERSION Hgb A1c (09/02/2013 10:26 AM CDT) athologist Signature HGB A1C 5.3 4.0 - 5.6 % HP CONVERSION Specimen Anatomical Collection Method Collection Time Receive d Time (Source) Location / / Volume Laterality 09/02/2013 10:26 09/02/2013 AM CDT 12:17 PM CDT Olamide Rodney MD LAB_1 Performing Organization Address [facility] Phon e Number HP CONVERSION TSH AND FREE T4 (FRT4 IF TSH ABNORM) (09/02/2013 10:26 AM CDT) athologist Signature Thyroid 1.74 0.20 - HP CONVERSION Stimulating 4.50 Hormone Specimen Anatomical Collection Method Collection Time Receive d Time (Source) Location / / Volume Laterality 09/02/2013 10:26 09/02/2013 AM CDT 12:18 PM CDT Olamide Rodney MD LAB_1 Performing Organization Address [facility] Phon e Number HP CONVERSION (ABNORMAL) ALT (SGPT) (09/02/2013 10:26 AM CDT) [facility] Method [place] Signature Alanine 62 (H) 4 - 55 HP CONVERSION Aminotransferase U/L Specimen Anatomical Collection Method Collection Time Receive d Time (Source) Location / / Volume Laterality 09/02/2013 10:26 09/02/2013 AM CDT 10:26 AM CDT Narrative HP CONVERSION - 09/02/2013 11:30 AM CDT Performed at [facility] [address] [place] [address] Olamide Rodney MD LAB_1 Performing Organization Address City/[facility] Phon e Number HP CONVERSION Lipid Panel and Direct LDL(If Needed) (09/02/2013 10:26 AM CDT) [facility] Method Time Signature Cholesterol 190 0 - 200 HP CONVERSION mg/dL Triglycerides 106 0 - 149 HP CONVERSION mg/dL HDL Cholesterol 93 >39 mg/dL HP CONVERSION Cholesterol/HDL 2.0 HP CONVERSION Ratio Screen LDL Calculated 76 19 - 130 HP CONVERSION mg/dL Length Of Fast 12.0 HP CONVERSION Specimen Anatomical Collection Method Collection Time Receive d Time (Source) Location / / Volume Laterality 09/02/2013 10:26 09/02/2013 AM CDT 10:26 AM CDT Narrative HP CONVERSION - 09/02/2013 11:30 AM CDT Performed at [facility] [address] [place] [address] Olamide Rodney MD LAB_1 Performing Organization Address [facility] Phon e Number HP CONVERSION Ferritin (09/02/2013 10:26 AM CDT) athologist Signature Ferritin Serum 89 10 - 291 HP CONVERSION ng/mL Specimen Anatomical Collection Method Collection Time Receive d Time (Source) Location / / Volume Laterality 09/02/2013 10:26 09/02/2013 AM CDT 12:18 PM CDT Olamide Rodney MD LAB_1 Performing Organization Address [facility] Phon e Number HP CONVERSION documented in this encounter Visit Diagnoses Diagnosis S/P gastric bypass Bariatric surgery status Diabetes type 2, controlled (HRC) Type II or unspecified type diabetes rod litus without mention of complication, not stated as uncontrolled Macrocytosis without anemia Other specified diseases of blood and bl ood-forming organs documented in this encounter Care Teams Contact Center Professional Relationship Specialty Start Date End Date Olamide Rodney MD PCP - General 09/25/10 01/11/21 [address] [place] [address] documented as of this encounter
--- OUTSIDE RECORDS SUMMARY | 2022-01-29 17:51 | XMS_ITS | Encounter Summary ---
:1960 Author Organization [employer] Address [address] [address] Care Team Providers Name Role Phone Olamide Rodney MD Primary Care Provider Reason for Visit Reason Comments Vomiting Encounter Details Date Type Department Care Team Description 03/05/2014 Hospital Encounter [facility] Soha Martinez D ehydration; Care Vomiting; [address] [address] [address] D r Chronic abdominal pain; Drive [place], [place] [address] [phone] Social History Tobacco Use Types Packs/Day Years Used Date Smoking Tobacco: Never Alcohol Use Standard Drinks/Week Comments Yes 0 (1 standard drink = 0.6 oz pure alcoho l) mod Sex Assigned at Date Recorded Not on file documented as of this encounter Last Filed Vital Signs Vital Sign Reading Time Taken Comments Blood Pressure 164/97 03/05/2014 11:39 AM CDT Pulse 97 03/05/2014 11:39 AM CDT Temperature 36.9 ??C (98.4 ??F) 03/05/2014 11:39 AM CDT Respiratory Rate 24 03/05/2014 11:39 AM CDT Oxygen Saturation - - Inhaled Oxygen Concentration - - Weight - - Height - - Body Mass Index - - documented in this encounter Medications at Time of Discharge Medication Sig Dispensed Refills Start Date End Date aspirin 81 MG Take 2 tablets by 3 10/04/2010 tabletIndications: mouth daily (every TROSVIG, PATY Mtz e Aug 24 hours). LW Addl 2013 1:27 PM Stopped Instr:hold until taking aspirin per lovenox dc'd instructions for procedure. cyanocobalamin 1000 MCG Take 1,000 mcg by 0 03/08 tablet mouth daily (every 24 hours). 6 times/week Multiple Vitamins-Minerals Take 2 tablets by 0 (MULTIVITAMIN ADULT OR) mouth daily (every 24 hours). BIOTIN OR Take by mouth. 500 0 09/08/20132013 mg day ondansetron (aka ZOFRAN) Take 1 tablet by 30 tablet 0 03/0503/28/2014 disintegrating tablet mouth every 8 hours as needed for Nausea or Vomiting. Dissolve tablet on tongue ASPIRIN EC 81MG ORAL TABS 3 TABLETS DAILY 0 11/0704/02/2016 CALCIUM + D 600-200 MG-IU 3 TABLET DAILY 0 200204/02/2016 OR TABS CYANOCOBALAMIN 1000 MCG SL 1 every other day 0 99 04/02/2016 SUBL FLINTSTONES PLUS IRON OR 2 per day 0 03/24/2003 04/02/2016 CHEW PIRBUTEROL ACETATE (MAXAIR use as directed prn 1 0 09/24/2004 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) 200MCG/INH INHALERIndications: Unspecified asthma(493.90) ([facility]) documented as of this encounter ED Notes Soha Martinez MD - 03/06/2014 10:13 AM CDT ED Provider Notes signed by Soha Martinez MD at 03/07/141448 Author: Soha Martinez MD Service: (none) Author Type: Physician Filed: 03/07/141448 Note Time: 03/06/141905 Status: Signed Herb Doctor: Soha Martinez MD (Physician) NAME: PATY LLAMAS MR#: [id number] CSN: [id number] AUTHENTICATING CLINICIAN: Soha Martinez MD CONFIRM #: [id number] LOC: 520 URGENT CARE PROGRESS NOTE DATE OF VISIT: 03/05/2014 : 1960 Paty is a 53-year-old female here today with 3-4 days of nausea and vomiting. She cannot keep anything down, even water. She had diarrhea 3-4 days ago, though, that has resolved as she is not taking anything orally. She tells me that she is an alcoholic and is trying to detox herself at home. She is , so her is home and carefully keeping track of her situation. She says that she was drinking a half bottle of vodka a day. This was a large bottle. She, about a week ago, decreased to 5-6 shots of vodka a day, and now is down to 2 shots a day. This is what has led to the nausea and vomiting. She says that overall she thinks she is doing well and has not had any hallucinations, though, when she has tried to detox in the past she has. She says she is quite convinced that she can do this, this time. She has never been to treatment, but says she is really not open to that. She is not open to counseling at this point. She has a masters in counseling, and says she has only ever had one counselor that she connected with. She says she does have a friend who she might connect with, who has dealt with alcoholism and so that might be an option for her for support. She says her is supportive, though, the problem is that he does drink, but he has agreed to lock up the alcohol and keepit from her. She seems to recognize that this is going to be a difficult situation, though, I am not convinced that she fully understands the potential difficulty, but she is not open to any additionalhelp at this point. She, at one point, said that her hope would be that down the line she could havea glass of wine with dinner, but then she immediately said that is probably not realistic. PAST HISTORY: Updated and reviewed on [employer]. MEDICATIONS: Updated and reviewed on [employer]. ALLERGIES: Updated and reviewed on [employer]. OBJECTIVE: VITAL SIGNS: Reviewed on [employer]. GENERAL: She is alert, oriented, in no acute distress. She is ill appearing initially, but looks much better after fluids and Zofran. LABS: Included basic metabolic profile and magnesium that were unremarkable, with the exception of her bicarb. Her CBC is unremarkable, with exception of her elevated MCV. This has been gradually increasing over time, and felt to be due to her alcoholism. She was given a liter of lactated [employer]'s. About jail through this, she felt the urge to urinate. She was given Zofran 4 mg IV and felt much better. ASSESSMENT: 1. Dehydration. 2. Vomiting. 3. Alcohol withdrawal. PLAN: She is absolutely certain she wants no additional assistance. She is not open to that whatsoever. I discussed with her the extreme potential danger of alcohol withdrawal. Discussed that she needs to continue to do this slowly if she is going to do this at home, but that the safest way to do this wouldbe in a controlled medical setting. She is not open to that. She is alert and oriented, and competent to decide this. Her was here at the end of the visit with her, and is alert and competent as well. She was given Zofran to use at home. She will push clear liquids. Recommended use of vitamins, and discussed that with her in detail. She has a followup this coming week with her primary, and she will keep that appointment. Discussed with her that if she has any hallucinations whatsoever she should call an ambulance. She has never had an alcohol withdrawal seizure, so that is at least one plus, but she clearly has had DTs as she has hallucinated in the setting of alcohol withdrawal before. Aga in, I discussed with her at length and repeatedly my concern about the danger of this situation, but she is competent to make the decision not to seek medical help for her withdrawal. HAH:MEDQ C: CONFIRM #: [id number] Mindi Bernal RN - 03/05/2014 2:32 PM CDT Approx 750 cc infused. to reassess pt. Mindi Talamantes RN - 03/05/2014 2:11 PM CDT Approx 450 cc infused. Pt denies need for additional blankets at this time. to reassess pt. documented in this encounter Miscellaneous Notes Medication History - Tirso Piedra MD - 03/05/2014 3:10 PM CDT INPATIENT MEDS Encounter Date: 03/05/14 ondansetron (ZOFRAN-ODT) 4 mg disintegrating tablet Start Date:03/05/14, End Date:03/28/14, Frequency:EVERY 8 HOURS PRN *No Administrations Recorded lactated ringers infusion Start Date:03/05/14, End Date:03/05/14, Frequency:ONCE Taken Dose Action User Route Site Recorded Comment Reason 03/05/14 1500 1,000 mL Infused Villa Crowley RN Intravenous - 03/05/14 1509 - - 03/05/14 1350 1,000 mL Started Villa Crowley RN Intravenous - 03/05/14 1402 - - ondansetron (ZOFRAN) injection 4 mg Start Date:03/05/14, End Date:03/05/14, Frequency:ONCE Taken Dose Action User Route Site Recorded Comment Reason 03/05/14 1350 4 mg Given Villa Crowley RN Intravenous - 03/05/14 1403 - - ED AVS Snapshot - Tirso Piedra MD - 03/05/2014 3:10 PM CDT Images from the original note were not included. [facility] [address] [place] [address] Dept: [phone] [email or web address] Paty Llamas 03/05/2014 12:01 PM Hospital Encounter Description: Female : 1960 Department: [facility] Thank you for choosing [facility] for your health care visit with Soha Martinez MD. Weare happy to care for you and provide this summary of your visit. Your primary wound care coordinator is currently listed as Olamide Rodney MD. HERE IS WHAT YOU NEED TO KNOW To learn how you can take steps to stay as healthy as you can be visit [email or web address] HERE IS WHAT YOU NEED TO DO Call your clinic if you develop new or worsening symptoms or if you have questions about your visit or medications. Your to do list Future Appointments Provider Department Dept Phone 03/09/2014 2:40 PM Olamide Rodney MD [facility] [phone] 03/28/2014 7:00 AM Jeremy Madrid MD [facility] [phone] Please arrive 15 minutes early with your insurance card, photo ID, and copay should one apply to your visit. Should the office visit results in a procedure or any type of surgery financial clearance will contact you with an estimate. Should you need to cancel your appointment, please do so before 48 hours of your appointment. 04/18/2014 11:00 AM Elizabet Drew PA-C [facility] [phone] ARRIVE 15 MINUTES EARLY. ALSO BRING A LIST OF ALL CURRENT MEDICATIONS AND OTC SUPPLEMENTS. PLEASE BRING YOUR INSURANCE CARD, COPAYMENT, AND PICTURE ID. Future Orders Complete By Ordering Dept. Hemoglobin A1C Glycosylated 05/22/2011 [facility] Alanine Aminotransferase 03/07/2014 [facility] Aspartate Aminotransferase 03/07/2014 [facility] Complete Blood Count W/Diff 03/07/2014 [facility] Hemoglobin A1C Glycosylated 03/07/2014 [facility] Microalbumin Urine Random 03/07/2014 [facility] Follow-up Information Follow up with Olamide Rodney MD In 4 days. Contact information: [address] [place] [address] HERE IS INFORMATION FROM TODAY'S VISIT Reason for Visit Emesis (VOMITING) Reason for Visit History Health issues considered by your clinician today Dehydration Vomiting If you had any tests, you will be notified of your abnormal results by your clinic. We Performed the Following Basic Metabolic Panel: Complete Blood Count W/Diff: Magnesium: N/O Anion Gap N/O Lab Differential Results Basic Metabolic Panel: Component Value Standard Range & Units Creatinine Serum 0.6 0.4 - 1.3 mg/dL Lab Glucose 66 60 - 100 mg/dL Bicarbonate 17 23 - 33 mmol/L Chloride 99 98 - 110 Potassium 4.3 3.5 - 5.2 Sodium 140 137 - 147 Blood Urea Nitrogen 11 5 - 26 mg/dL Calcium 8.9 8.5 - 10.5 mg/dL Est GFR Am >60 >60 Est GFR Non-Afr Am >60 >60 Normal>60, moderate decrease 30 - 59, severe decrease 15 - 29, renal failure <15 mL/min/1.73 m2 NOTE: Choose the eGFR result above appropriate for the race of the patient. Magnesium: Component Value Standard Range & Units Magnesium 1.8 1.5 - 2.4 mg/dL Complete Blood Count W/Diff: Component Value Standard Range & Units White Blood Cell Count 6.6 3.8 - 11.0 Red Blood Cell Count 4.04 3.70 - 5.20 Hemoglobin 14.6 11.8 - 15.5 g/dL Hematocrit 43.4 35.0 - 46.0 % Mean Corpuscular Volume 107.3 80.0 - 100.0 fL RDW 14.1 11.0 - 15.0 % Platelet Count 154 140 - 450 N/O Anion Gap Component Value Standard Range & Units ANION GAP 24 0 - 16 N/O Lab Differential Component Value Standard Range & Units Absolute Neutrophils 4.9 1.8 - 8.0 Absolute Lymphocytes 1.3 1.1 - 4.0 Absolute Monocytes 0.3 0.2 - 0.8 Absolute Eosinophils 0.0 0.0 - 0.5 Absolute Basophils 0.1 0.0 - 0.2 Medications administered today Administered Action lactated ringers infusion 03/05/2014 Started ondansetron (ZOFRAN) injection 4 mg 03/05/2014 Given MEDICATIONS As of today's visit, these are your current medications Medication DOSAGE aspirin 81 mg tablet Take 2 tablets by mouth daily (every 24 hours). LW Addl Instr:hold until lovenox dc'd BIOTIN ORAL Take by mouth. 500 mg day cyanocobalamin (VITAMIN B12) 1,000 mcg tablet Take 1,000 mcg by mouth daily (every 24 hours). 6 times/week multivitamin (THERAGRAN) tablet Take 2 tablets by mouth daily (every 24 hours). ondansetron (ZOFRAN-ODT) 4 mg disintegrating tablet Take 1 tablet by mouth every 8 hours as needed for Nausea or Vomiting. Dissolve tablet on tongue Vital signs from your visit Your Vitals Were BP Pulse Temp(Src) Resp 164/97 97 36.9 ??C (98.4 ??F) (Oral) 24 Allergies as of 03/05/2014 Flovent [Fluticasone] 04/22/2011 laryngitis Other 09/17/2010 Unspecified LW Other1: -NONE KNOWN Oxycodone-Acetaminophen 09/24/2010 Allergy LW Reaction: Itching, Pruritis Review Contrast Media 09/17/2010 Unspecified LW CM1: >>> NO CONTRAST ADVERSE REACTION <<< Reaction : Review Food Intolerance 09/24/2010 Unspecified LW FI1: NO KNOWN FOOD ALLERGIES OR INTOLERANCES LW FI2: NO KNOWN FOOD ALLERGIES OR INTOLERANCES Immunization History Reviewed on 09/08/2013 FLUARIX INFLUENZA QIV (36+ MOS) 03/08/2013 INFLUENZA TIV 0.5 ML (36+ MOS) 03/29/2011, 04/01/2010, 05/22/2007, 05/06/2006, 04/03/2005 Influenza TIV (36+ mos) 03/04/2012 Pneumococcal vaccine (pneumovax) 10/02/2005 Td Adult (>7 years) 12/11/1999 Tdap (Adacel) 08/19/2011 About You Date Of Sex Race Ethnicity Preferred Language 1960 Female White Non- Sri [place]ank[place] This document contains confidential information about your health and care. It is provided directlyto you for your personal, private use only. documented in this encounter Plan of Treatment Not on filedocumented as of this encounter Procedures Procedure Name Priority Date/Time Associated Comments Diagnosis ANION GAP STAT 03/05/2014 1:46 PM Results f or this CDT procedure are i n the results section. COMPLETE BLOOD STAT 03/05/2014 1:46 PM Dehydration Results for this COUNT-W/DIFF CDT Vomiting procedure are i n the results section. BASIC METABOLIC PANEL STAT 03/05/2014 1:46 PM Dehydra tion Results for this CDT Vomiting procedure are i n the results section. DIFFERENTIAL STAT 03/05/2014 1:46 PM Results f or this CDT procedure are i n the results section. MAGNESIUM STAT 03/05/2014 1:46 PM Dehydration Results for this CDT Vomiting procedure are i n the results section. documented in this encounter Results Differential (03/05/2014 1:46 PM CDT) athologist Signature Absolute 4.9 1.8 - 8.0 HP CONVERSION Neutrophils Absolute 1.3 1.1 - 4.0 HP CONVERSION Lymphocytes Absolute 0.3 0.2 - 0.8 HP CONVERSION Monocytes Absolute 0.0 0.0 - 0.5 HP CONVERSION Eosinophils Absolute 0.1 0.0 - 0.2 HP CONVERSION Basophils Specimen Anatomical Collection Method Collection Time Receive d Time (Source) Location / / Volume Laterality 03/05/2014 1:46 PM 4 1:46 CDT PM CDT Narrative HP CONVERSION - 03/05/2014 1:52 PM CDT Performed at [facility] [place], [address] [place] [address] Soha Martinez MD LAB_1 Performing Organization Address City/[facility] Phon e Number HP CONVERSION (ABNORMAL) ANION GAP (03/05/2014 1:46 PM CDT) athologist [facility] ANION GAP 24 (H) 0 - 16 HP CONVERSION Specimen Anatomical Collection Method Collection Time Receive d Time (Source) Location / / Volume Laterality 03/05/2014 1:46 PM 4 1:46 CDT PM CDT Narrative HP CONVERSION - 03/05/2014 2:08 PM CDT Performed at [facility], [place], [address] [place] [address] Soha Martinez MD LAB_1 Performing Organization Address City/[facility] Phon e Number HP CONVERSION (ABNORMAL) Complete Blood Count W/Diff (03/05/2014 1:46 PM CDT) [facility] gist Method Time Signature White Blood Cell 6.6 3.8 - HP CONVERSION Count 11.0 Red Blood Cell 4.04 3.70 - HP CONVERSION Count 5.20 Hemoglobin 14.6 11.8 - HP CONVERSION 15.5 g/dL Hematocrit 43.4 35.0 - HP CONVERSION 46.0 % Mean Corpuscular 107.3 (H) 80.0 - HP CONVERSION Volume 100.0 fL RDW 14.1 11.0 - HP CONVERSION 15.0 % Platelet Count 154 140 - 450 HP CONVERSION Specimen Anatomical Collection Method Collection Time Receive d Time (Source) Location / / Volume Laterality 03/05/2014 1:46 PM 4 1:46 CDT PM CDT Narrative HP CONVERSION - 03/05/2014 1:52 PM CDT Performed at [facility], [place], [address] [place] [address] Soha Martinez MD LAB_1 Performing Organization Address [facility] Phon e Number HP CONVERSION Magnesium (03/05/2014 1:46 PM CDT) P athologist Signature Magnesium 1.8 1.5 - 2.4 HP CONVERSION mg/dL Specimen Anatomical Collection Method Collection Time Receive d Time (Source) Location / / Volume Laterality 03/05/2014 1:46 PM 4 1:46 CDT PM CDT Narrative HP CONVERSION - 03/05/2014 2:08 PM CDT Performed at [facility], [place], [address] [place] [address] Soha Martinez MD LAB_1 Performing Organization Address City/[facility] Phon e Number HP CONVERSION (ABNORMAL) Basic Metabolic Panel (03/05/2014 1:46 PM CDT) Analysis Performed At Patho logist Time Signature Creatinine Serum 0.6 0.4 - 1.3 HP CONVERSION mg/dL Lab Glucose 66 60 - 100 HP CONVERSION mg/dL Bicarbonate 17 (L) 23 - 33 HP CONVERSION mmol/L Chloride 99 98 - 110 HP CONVERSION Potassium 4.3 3.5 - 5.2 HP CONVERSION Sodium 140 137 - 147 HP CONVERSION Blood Urea 11 5 - 26 HP CONVERSION Nitrogen mg/dL Calcium 8.9 8.5 - 10.5 HP CONVERSION mg/dL Est [...] Time (Source) Location / / Volume Laterality 03/05/2014 1:46 PM 4 1:46 CDT PM CDT Narrative HP CONVERSION - 03/05/2014 2:08 PM CDT Performed at [place] [id number] [place] [address] Soha Martinez MD LAB_1 Performing Organization Address City/State/ZIP Code Phon e Number HP CONVERSION documented in this encounter Visit Diagnoses Diagnosis Dehydration Vomiting Vomiting alone Chronic abdominal pain Abdominal pain, unspecified site Alcohol withdrawal (HRC) Alcohol withdrawal Triage Assessment Note - Tamika Palencia RN - 03/05/2014 11:39 AM CDT vomiting for the past 3 days. diarrhea earlier in the week. constant nausea documented in this encounter Care Teams [employer] Relationship Specialty Start Date End Date Olamide Rodney MD PCP - General 09/25/10 01/11/21 [address] [place], [place] [id number] documented as of this encounter
--- OUTSIDE RECORDS SUMMARY | 2022-01-29 17:51 | XMS_ITS | Encounter Summary ---
:1960 Author Organization [employer] Address [address], [place] [address] Care Team Providers Name Role Phone Olamide Rodney MD Primary Care Provider Reason for Visit Reason Comments Referral Encounter Details Date Type Department Care Team Description 08/28/2012 Telephone [employer] [facility] Malka Rodney MD Referral Medicine [address] [place] [address] [place] [address] [phone] Social History Tobacco Use Types Packs/Day Years Used Date Smoking Tobacco: Never Alcohol Use Standard Drinks/Week Comments Yes 0 (1 standard drink = 0.6 oz pure alcoho l) mod Sex Assigned at Date Recorded Not on file documented as of this encounter Nursing Notes Olamdie Rodney MD - 08/31/2012 9:46 AM CDT ordered Edith Castellanos - 08/28/2012 9:45 AM CST Forwarding to provider, who is out of the office until 08/31/12. Antwon Rodriguez - 08/28/2012 9:41 AM CST Referral/Consult Caller Name/Relationship: Paty/pt Primary Care Provider: Olamide Rodney MD What referral is needed? Audiology Why is referral needed? For hearing test Insurance Carrier: Carlos Appointment already scheduled? no When/With whom/Where? na What is needed from us? Referral Call back phone or cell phone: [phone] Best time to call back number: Pt would like a call back today because she'll be on vacation next week. Is it OK to leave a confidential message on this voicemail? Yes. *[employer] INSPECTOR documented in this encounter Plan of Treatment Not on filedocumented as of this encounter Visit Diagnoses Diagnosis Hearing loss - Primary Unspecified hearing loss documented in this encounter Care Teams Quill Winder Relationship Specialty Start Date End Date Olamide Rodney MD PCP - General 09/25/10 01/11/21 [address] [place] [address] documented as of this encounter
--- OUTSIDE RECORDS SUMMARY | 2022-01-29 17:51 | XMS_ITS | Encounter Summary ---
:1960 Author Organization [facility] Address [address] [place] [address] Care Team Providers Name Role Phone Olamide Rodney MD Primary Care Provider Reason for Visit Reason Comments Procedure Encounter Details Date Type Department Care Team Description 02/24/2014 Procedure Visit [facility] Procedure [address] [place], [place] [address] Social History Tobacco Use Types Packs/Day Years Used Date Smoking Tobacco: Never Alcohol Use Standard Drinks/Week Comments Yes 0 (1 standard drink = 0.6 oz pure alcoho l) mod Sex Assigned at Date Recorded Not on file documented as of this encounter Progress Notes Nixon Richardson MD - 03/05/2014 10:33 AM CDT Progress Notes signed by Nixon Richardson MD at 03/06/14 1234 Author: Nixon Richardson MD Service: (none) Author Type: Physician Filed: 03/06/14 1234 Note Time: 03/05/14 1059 Status: Signed Building Certifier: Nixon Richardson MD (Physician) NAME: PATY LLAMAS MR#: [id number] CSN: [id number] AUTHENTICATING CLINICIAN: Nixon Richardson MD CONFIRM #: [id number] LOC: 571 CLINIC DEXA REPORT DATE OF VISIT: 02/24/2014 : 1960 FINAL IMPRESSION: Bone density on [employer] Discovery SL. 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 OBJECTIVE: Lumbar Spine Levels Evaluated: L1-L4 BMD (g/cm2): 0.982 T-Score: -0.6 Z-Score: 0.5 Total Left Hip BMD (g/cm2): 0.870 T-Score: -0.6 Z-Score: 0.1 Left Femoral Neck BMD (g/cm2): 0.713 T-Score: -1.2 Z-Score: -0.2 * The T-score = Standard Deviations Above/Below Mean Peak Adult The Z-score - Standard Deviations Above/Below Mean Age/Sex - Matched Peers. It is not available for patients over age 84. WHO DEFINITIONS: Normal BMD: T-score > 1.0 Osteopenia: T-score between -1.0 and -2.5 Osteoporosis: T-score < -2.5 ISCD STANDARDS: For a more accurate fracture risk assessment, reference data is used for all ethnic groupsand the 1/3 region is reported for the forearm. ASSESSMENT: Based on the lowest T-Score at the femoral neck, the diagnosis is low bone density. RECOMMENDATIONS: 1. This patient is at low 10-year fragility fracture risk based on the FRAX calculation. See osteoporosis evaluation and management recommendations on Facets. 2. Consider followup BMD in 8-10 years unless factors affecting bone health change. SLG:MEDQ C: CONFIRM #: [id number] documented in this encounter Miscellaneous Notes Letter - Olamide Rodney MD - 02/24/2014 12:00 AM CDT Images from the original note were not included. [facility] [address] [facility] [place] [address] [email or web address] March 07, [address] [address] [facility] [address] Dear Paty, Your recent bone density test shows that you have bone loss, but do not yet have osteoporosis. Theseresults suggest that you are at a mild or moderate increased risk of fracture. To protect against future bone loss, we recommend the following: ??? Take 1500 mg of daily calcium and adequate vitamin D (1000 IU). ??? Exercise regularly. ??? Cigarette smoking causes bone loss. If you are a smoker--stop now. ___ Please make an appointment so we can discuss these results and possible treatment [phone]. ___ Please make an appointment in ___ We will repeat a bone density test in years. Please call my office at [phone] if you have questions. Sincerely, [place] [address] [place] [address] ER [place] documented in this encounter Plan of Treatment Not on filedocumented as of this encounter Procedures Procedure Name Priority Date/Time Associated Diagnosis Comme nts DXA BONE DENSITY STUDY Routine 03/07/2014 8:32 AM CDT Osteopen ia 1+ SITS AXIAL documented in this encounter Visit Diagnoses Diagnosis Osteopenia - Primary Disorder of bone and cartilage, unspecif ied S/P gastric bypass Bariatric surgery status Menopause Symptomatic menopausal or female climact андрей states documented in this encounter Care Teams Meat Cutting Teacher Relationship Specialty Start Date End Date Olamide Rodney MD PCP - General 09/25/10 01/11/21 [address] [place] [address] documented as of this encounter
--- OUTSIDE RECORDS SUMMARY | 2022-01-29 17:51 | XMS_ITS | Encounter Summary ---
:1960 Author Organization [facility] Address [address] [place] [address] Care Team Providers Name Role Phone Olamide Rodney MD Primary Care Provider Encounter Details Date Type Department Care Team Description 09/17/2011 Notes/Orders Olamide Meng Other scre ening Mammography MD [facility] [address] [facility] [address] [place] [address] [address] [phone] [place] [address] (Wo rk) Social History Tobacco [...] Associated Diagnosis Comme nts MM MAMMOGRAM Routine 09/19/2011 6:02 PM Other screening Result s for this SCREENING BILAT W CDT mammogram procedure are in CAD the results section. documented in this encounter Results MM Mammogram Screening Bilat W CAD (09/19/2011 6:02 PM CDT) Anatomical Region Laterality Modality Breast Bilateral Mammography Specimen (Source) Anatomical Location Collection Method / Collectio n Time Received Time / Laterality Volume Impressions 09/20/2011 7:54 AM CDT IMPRESSION: BILATERAL BREASTS Negative, no evidence of malignancy. Nor mal interval follow-up is recommended in 12 months. OVERALL ASSESSMENT - CATEGORY 1 - NEGATI VE END OF IMPRESSION BJ Narrative 09/20/2011 7:54 AM CDT Comparison is made to films from 011 (bilateral) and films from 01/01/2007 (bilateral) and films fr 10/07/2005 (bilateral). There is no significant interval change. Bilateral Breast Findings: There are scattered fibroglandular densi ties (11% - 50% fibroglandular). No significant masses, calcifications or other abnormalities are seen. Procedure Note Katherine Baker MD - 02/14/2016Formattin g of this note might be different from the original. Comparison is made to films from 011 (bilateral) and films from 01/01/2007 (bilateral) and films fr 10/07/2005 (bilateral). There is no significant interval change. Bilateral Breast Findings: There are scattered fibroglandular densi ties (11% - 50% fibroglandular). No significant masses, calcifications or other abnormalities are seen. IMPRESSION IMPRESSION: BILATERAL BREASTS Negative, no evidence of malignancy. Nor mal interval follow-up is recommended in 12 months. OVERALL ASSESSMENT - CATEGORY 1 - NEGATI VE END OF IMPRESSION BJ Olamide Rodney MD RAD SHERYL documented in this encounter Visit Diagnoses Diagnosis Other screening mammogram documented in this encounter Care Teams Manager In Training Relationship Specialty Start Date End Date Olamide Rodney MD PCP - General 09/25/10 01/11/21 [address] [place] [address] documented as of this encounter
--- OUTSIDE RECORDS SUMMARY | 2022-01-29 17:51 | XMS_ITS | Encounter Summary ---
:1960 Author Organization [email or web address] Address [address] [place] [address] Care Team Providers Name Role Phone Olamide Rodney MD Primary Care Provider Encounter Details Date Type Department Care Team Description 01/24/2014 Notes/Orders [facility] [address] B right red blood per Gastroenterology rectum (Primary Dx) [address] [facility]. [address] [place] [address] [phone] (Wo rk) Social History Tobacco Use Types Packs/Day Years Used Date Smoking Tobacco: Never Alcohol Use Standard Drinks/Week Comments Yes 0 (1 standard drink = 0.6 oz pure alcoho l) mod Sex Assigned at Date Recorded Not on file documented as of this encounter Plan of Treatment Not on filedocumented as of this encounter Visit Diagnoses Diagnosis Bright red blood per rectum - Primary Hemorrhage of rectum and anus documented in this encounter Care Teams Ornamental Metal Worker Relationship Specialty Start Date End Date Olamide Rodney MD PCP - General 09/25/10 01/11/21 [address] [place], [place] [address] documented as of this encounter
--- OUTSIDE RECORDS SUMMARY | 2022-01-29 17:51 | XMS_ITS | Encounter Summary ---
:1960 Author Organization [employer] Address [address], [place] [address] Care Team Providers Name Role Phone Olamide Rodney MD Primary Care Provider Reason for Visit Reason Comments ANXIETY Encounter Details Date Type Department Care Team Description 03/03/2014 Nurse Triage [facility] Malka Rodney MD ANXIETY Medicine [address] [place] [address] [place], [place] [address] [phone] Social History Tobacco Use Types Packs/Day Years Used Date Smoking Tobacco: Never Alcohol Use Standard Drinks/Week Comments Yes 0 (1 standard drink = 0.6 oz pure alcoho l) mod Sex Assigned at Date Recorded Not on file documented as of this encounter Nursing Notes Olamide Rodney MD - 03/06/2014 9:21 PM CDT Looks like patient was at and then sent to ER. Idalia Carrillo RN - 03/03/2014 4:20 PM CDT Protocol: ANXIETY AND PANIC [id number] Affirmative: Known or suspected alcohol or drug abuse Disposition of See PCP When Office Is Open (Within 3 Days) suggested. Spoke to patient, patient very scared and calling to speak to PCP, Dr. Rodney. Discussed with patient Dr. Rodney is out of the office. Proceeded to discuss current symptoms. Patient stayed home from work today due to not feeling well feels nauseated without vomiting and very scared. Concerned cancer may has come back, history significant for endometrial carcinoma. Patient rescheduled appt with Dr. Madrid which was scheduled for today due to not feeling well enough to travel. Patient has a history of alcohol abuse and states she has been drinking all day, did not report amount of alcohol consumed but was oriented x 3 during conversation, speaking clearly, and easy to understand. Completed MYLENE-7 over the phone, score of 11 obtained. Patient denied shortness of breath, chest pain, heart palpitations. Patient denied any thoughts or plans to harm self or others. Suggested patient contact [facility] Crisis hotline- patient declined. Advised patient to be evaluated in UC or ED today; patient states will be home from work in 1-2 hours and will take patient to UC/ED at that time. Had a lengthy discussion with patient about her safety to herself at home, patient repeatedly denied harming herself or plans to harm herself. Discussed resting at home, drinking water to increase hydration, and to stop alcohol consumption immediately. Patient verbalized understanding and agreed with plan to drink water, rest, and monitor symptoms. Patient encouraged to call 911 immediately with any worsening symptoms of worry, thoughts or plans to harm herself, increase in alcohol consumption, etc. Pt verbalized understanding and agreement with plan. Pt was instructed to call the clinic with any questions, concerns, or worsening symptoms. Patient requested note to be routed to PCP as FYI. Will route to Dr. Rodney. documented in this encounter Plan of Treatment Not on filedocumented as of this encounter Visit Diagnoses Not on filedocumented in this encounter Care Teams Hospice Music Therapist Relationship Specialty Start Date End Date Olamide Rodney MD PCP - General 09/25/10 01/11/21 [address] [place] [address] documented as of this encounter
--- OUTSIDE RECORDS SUMMARY | 2022-01-29 17:52 | XMS_ITS | Encounter Summary ---
:1960 Author Organization [employer] Address [address] [place] [address] Care Team Providers Name Role Phone Olamide Rodney MD Primary Care Provider Encounter Details Date Type Department Care Team Description 01/14/2011 Lab Visit Specialty Center 3931 Malign ant neoplasm of Outpatient Laborator y corpus uteri, except [address] [facility]. S. isthmus (Primary Dx) [place], [place] [address] Social History Tobacco Use Types Packs/Day Years Used Date Smoking Tobacco: Never Alcohol Use Standard Drinks/Week Comments Yes 0 (1 standard drink = 0.6 oz pure alcoho l) mod Sex Assigned at Date Recorded Not on file documented as of this encounter Plan of Treatment Not on filedocumented as of this encounter Procedures Procedure Name Priority Date/Time Associated Comments Diagnosis ANATOMICAL PATH Routine 01/14/2011 4:58 PM Result s for this LIQUID BASED CDT procedure are i n the results section. PAP SMEAR DIAGNOSTIC Routine 01/14/2011 4:58 PM Malignant neop lasm Results for this CDT of corpus uteri, procedure a re in except isthmus the results (HRC) section. documented in this encounter Results Pap Smear (01/14/2011 4:58 PM CDT) Specimen (Source) Anatomical Collection Method Collection Time Re ceived Time Location / / Volume Laterality 01/14/2011 4:58 PM CDT Narrative HP CONVERSION - 01/22/2011 9:08 AM CDT Final GYNECOLOGICAL CYTOLOGY REPORT Pathology #: [id number] ?Date Obtained: 01/14/2011 ? Date Received: 01/16/2011 INTERPRETATION/RESULTS: Negative for Intraepithelial Lesion or M alignancy SPECIMEN ADEQUACY: Satisfactory for Evaluation. ??No endoce rvical cells/transformation zone component present; post hysterectomy Verified on 01/22/2011 ??by PATY PULLIAM MD (electronic signature) CLINICAL NOTES: ? LMP: not stated, Hysterectomy, History of CA: endo 08/31 surg. LIQUID BASED PAP SMEAR SPECIMEN TYPE: ?VAGINAL [...] s may occur. ? End of Report Jackson Iqbal MD LAB_1 Performing Organization Address City/State/[facility] Code Phon e Number HP CONVERSION Pap Smear Diagnostic (01/14/2011 4:58 PM CDT) [facility] Method Time Signature PAP Diagnostic Collected HP CONVERSION Specimen Anatomical Collection Method Collection Time Receive d Time (Source) Location / / Volume Laterality 01/14/2011 4:58 PM 1 CDT 10:14 AM CDT Jackson Iqbal MD LAB_1 Performing Organization Address City/State/ZIP Code Phon e Number HP CONVERSION documented in this encounter Visit Diagnoses Diagnosis Malignant neoplasm of corpus uteri, exce pt isthmus (HRC) - Primary Malignant neoplasm of corpus uteri, exce pt isthmus documented in this encounter Care Teams Water Aerobics Instructor Relationship Specialty Start Date End Date Olamide Rodney MD PCP - General 09/25/10 01/11/21 [address] [place] [address] documented as of this encounter
--- OUTSIDE RECORDS SUMMARY | 2022-01-29 17:52 | XMS_ITS | Encounter Summary ---
:1960 Author Organization [employer] Address [address] [place] [address] Care Team Providers Name Role Phone Olamide Rodney MD Primary Care Provider Reason for Visit Reason Comments Other Encounter Details Date Type Department Care Team Description 09/11/2010 Telephone [facility] [address] [place], Message Other Obstetrics/Gynecolog y [address] [place], [place] [id number] Social History Tobacco Use Types Packs/Day Years Used Date Smoking Tobacco: Never Alcohol Use Standard Drinks/Week Comments Yes 0 (1 standard drink = 0.6 oz pure alcoho l) mod Sex Assigned at Date Recorded Not on file documented as of this encounter Progress Notes [place], Message - 09/11/2010 3:44 PM CDT lm for pt on both lines written on paperwork Created on 11Sep2010 3:44pm by MICHAEL LADD documented in this encounter Plan of Treatment Not on filedocumented as of this encounter Visit Diagnoses Not on filedocumented in this encounter Care Teams Try Out Person Relationship Specialty Start Date End Date Olamide Rodney MD PCP - General 09/25/10 01/11/21 [address] [place], [place] [id number] documented as of this encounter
--- OUTSIDE RECORDS SUMMARY | 2022-01-29 17:52 | XMS_ITS | Encounter Summary ---
:1960 Author Organization [employer] Address [address], [place] [address] Care Team Providers Name Role Phone Olamide Rodney MD Primary Care Provider Reason for Visit Reason Comments CANCER Encounter Details Date Type Department Care Team Description 01/14/2011 Office Visit Specialty Center 39[address] Jackson Iqbal E ndometrial cancer Gynecology Oncology MD (Primary Dx) [address] [facility] [address] [facility] 5th [place] [phone] (Wo rk) Social History Tobacco Use Types Packs/Day Years Used Date Smoking Tobacco: Never Alcohol Use Standard Drinks/Week Comments Yes 0 (1 standard drink = 0.6 oz pure alcoho l) mod Sex Assigned at Date Recorded Not on file documented as of this encounter Last Filed Vital Signs Vital Sign Reading Time Taken Comments Blood Pressure 120/70 01/14/2011 6:12 PM CDT Pulse - - Temperature - - Respiratory Rate - - Oxygen Saturation - - Inhaled Oxygen Concentration - - Weight 93 kg (205 lb) 01/14/2011 6:12 PM CDT Height 162.6 cm (5' 4) 01/14/2011 6:12 PM CDT Body Mass Index 35.19 01/14/2011 6:12 PM CDT documented in this encounter Progress Notes Jackson Iqbal MD - 01/14/2011 12:00 PM CDT Progress Notes signed by Jackson Iqbal MD at 02/22/111048 Author: Jackson Iqbal MD Service: (none) Author Type: Physician Filed: 02/22/11 1049 Note Time: 01/14/11 1200 Status: Signed Real Estate Paralegal: Jackson Iqbal MD (Physician) NAME: PATY LLAMAS MR#: [id number] CSN: [id number] AUTHENTICATING CLINICIAN: Jackson Iqbal MD CONFIRM #: [id number] LOC: 256 CLINIC PROGRESS NOTE DATE OF VISIT: 01/14/2011 : 1960 A 50-year-old female with a history of endometrial carcinoma recently diagnosed. She underwent surgical staging in August, having a hysterectomy and staging procedure demonstrating stage 1a Grade II endometrial carcinoma. She presents today for her second postoperative visit, and the course is complicated by a temporarily retained vaginal balloon. This was removed, and postoperative day 1 prior to discharge from the hospital, and did not cause significant discomfort. 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 She has had no fever, chills, nausea or vomiting, constipation, diarrhea, or dysuria. No bleeding, no other lingering discomforts. PAST MEDICAL/SURGICAL HISTORY: Otherwise unchanged from previous, and with the exception of the Factor V Leiden largely unremarkable, with the exception of asthma. She did have gastric bypass approximately 8 years ago and a cholecystectomy performed at that time. PHYSICAL EXAMINATION: Heart rate: Approximately 80. Respiratory rate: Approximately 14. Weight: 205 pounds, which approximates baseline. She is well-appearing, and in no acute distress. HEART: Regular rate and rhythm. LUNGS: Clear to auscultation. HEENT: Within normal limits. LYMPH NODE SURVEY: Including anterior cervical, supraclavicular, axillary, and groin nodes within normal limits. ABDOMEN: Soft, nontender, nondistended. She has well-healed incisions. There is no evidence of herniation. LOWER EXTREMITIES: Symmetric without significant edema. PELVIC: Reveals grossly normal external genitalia, and vaginal cuff is grossly normal. There is no clear evidence of mass by bimanual examination. RECTAL: Shows normal anal tone. No mass, no melena, no evidence of peritoneal nodularity. Pap smear was performed. ASSESSMENT: History of low stage, low grade endometrial carcinoma. I have discussed with Ms. Llamas that it is my recommendation she follow up on an every 3-4 month basis to complete 2 years of surveillance. Pap smear should be done approximately every other visit during the first 2 years, and subsequently she should follow up on an every 6 month basis to complete 5 total years of surveillance with a Pap smear being performed annually. In that case in the absence of symptoms, I have left open the possibility she may return to this clinic, but I have recommended that she follow up with Dr. Madrid her primary COLLEGE SPORTS COACH with whom she has been very happy to date. Should she have any abnormalities in the future, certainly she is welcome back in the clinic, however, I believe her prognosis is excellent and we will complete the discharge pending the Pap smear. Total time for this visit was approximately 25 minutes, 20 minutes spent in counseling regarding low term followup. ANIA:MEDTracie C: CONFIRM #: [id number] documented in this encounter Plan of Treatment Not on filedocumented as of this encounter Visit Diagnoses Diagnosis Endometrial cancer (HRC) - Primary Malignant neoplasm of corpus uteri, exce pt isthmus documented in this encounter Care Teams Account Liaison Hospice Relationship Specialty Start Date End Date Olamide Rodney MD PCP - General 09/25/10 01/11/21 [address] [place] [address] documented as of this encounter
--- OUTSIDE RECORDS SUMMARY | 2022-01-29 17:52 | XMS_ITS | Encounter Summary ---
:1960 Author Organization [employer] Address [address] [place] [address] Care Team Providers Name Role Phone Olamide Rodney MD Primary Care Provider Reason for Visit Reason Comments Other Encounter Details Date Type Department Care Team Description 10/09/2010 Telephone [facility] 3931 Harjeet Solis, RN Other Gynecology Oncology [address] [place], [place] [address] Social History Tobacco Use Types Packs/Day Years Used Date Smoking Tobacco: Never Alcohol Use Standard Drinks/Week Comments Yes 0 (1 standard drink = 0.6 oz pure alcoho l) mod Sex Assigned at Date Recorded Not on file documented as of this encounter Progress Notes Harjeet Solis, RN - 10/09/2010 10:28 AM CDT Pt calling because she is feeling very well and would like to RTW on , 10/11/10. RTW statement completed, faxed to [facility] and copy to [facility]. Created on 09Oct2010 10:28am by HARJEET SOLIS documented in this encounter Plan of Treatment Not on filedocumented as of this encounter Visit Diagnoses Not on filedocumented in this encounter Care Teams Peanut Cleaner Relationship Specialty Start Date End Date Olamide Rodney MD PCP - General 09/25/10 01/11/21 [address] [place] [address] documented as of this encounter
--- OUTSIDE RECORDS SUMMARY | 2022-01-29 17:52 | XMS_ITS | Encounter Summary ---
:1960 Author Organization [employer] Address [address] [place] [address] Care Team Providers Name Role Phone Olamide Rodney MD Primary Care Provider Encounter Details Date Type Department Care Team Description 03/29/2011 Immunization [facility] Need for prophylactic [address] [employer] [place] [address] inoculation against [phone] influenza (Prim mackenzie Dx) Social History Tobacco Use Types Packs/Day Years Used Date Smoking Tobacco: Never Alcohol Use Standard Drinks/Week Comments Yes 0 (1 standard drink = 0.6 oz pure alcoho l) mod Sex Assigned at Date Recorded Not on file documented as of this encounter Plan of Treatment Not on filedocumented as of this encounter Visit Diagnoses Diagnosis Need for prophylactic vaccination and in oculation against influenza - Primary documented in this encounter Care Teams Smoke Tester Relationship Specialty Start Date End Date Olamide Rodney MD PCP - General 09/25/10 01/11/21 [address] [place], [place] [address] documented as of this encounter
--- OUTSIDE RECORDS SUMMARY | 2022-01-29 17:52 | XMS_ITS | Encounter Summary ---
:1960 Author Organization [facility] Address [address] [place] [address] Care Team Providers Name Role Phone Olamide Rodney MD Primary Care Provider Encounter Details Date Type Department Care Team Description 09/18/2010 Notes/Orders CONVERSION CONVERSION Conversion , User GTS SOFÍA CUMMINSNORAHTonyDONNY [id number] Social History Tobacco Use Types Packs/Day Years Used Date Smoking Tobacco: Never Alcohol Use Standard Drinks/Week Comments Yes 0 (1 standard drink = 0.6 oz pure alcoho l) mod Sex Assigned at Date Recorded Not on file documented as of this encounter Plan of Treatment Not on filedocumented as of this encounter Procedures Procedure Name Priority Date/Time Associated Diagnosis Comme nts LAP RADICAL HYST Routine 09/18/2010 5:47 PM CDT documented in this encounter Results Lap Radical Hyst (09/18/2010 5:47 PM CDT) Specimen (Source) Anatomical Location Collection Method / Collectio n Time Received Time / Laterality Volume User Conversion PROC_1 Performing Organization Address City/State/ZIP Code Phon e Number HP CONVERSION documented in this encounter Visit Diagnoses Not on filedocumented in this encounter Care Teams Bootmaker Relationship Specialty Start Date End Date Olamide Rodney MD PCP - General 09/25/10 01/11/21 [address] [place] [address] documented as of this encounter
--- OUTSIDE RECORDS SUMMARY | 2022-01-29 17:52 | XMS_ITS | Encounter Summary ---
:1960 Author Organization [employer] Address [address] [place] [address] Care Team Providers Name Role Phone Shira Rodney MD Primary Care Provider Encounter Details Date Type Department Care Team Description 12/18/2010 Office Visit [facility] [place] [address] [address] [place], [place] [id number] (Wo rk) Social History Tobacco Use Types Packs/Day Years Used Date Smoking Tobacco: Never Alcohol Use Standard Drinks/Week Comments Yes 0 (1 standard drink = 0.6 oz pure alcoho l) mod Sex Assigned at Date Recorded Not on file documented as of this encounter Progress Notes Tatum Mac MD - 12/18/2010 12:01 AM CDT NAME: PATY LLAMAS MR#: [id number] ACCT: [id number] VISIT: [id number] DICTATING CLINICIAN: Tatum Mac MD CONFIRM #: [id number] LOC: 514 CLINIC PROGRESS NOTE DATE OF VISIT: 12/18/2010 : 1960 Paty is a 49-year-old white female seen at the request of Dr. Shira Rodney for allergy and asthma evaluation. She was seen by an landscape maintenance internship many years ago and told of multiple positive reactions. Basically she chooses to avoid triggers and puts up with many symptoms. On rare occasion she will take diphenhydramine which is fairly well tolerated. Paty's parents lived in [place], [place]. Her dad 1-1/2 years ago. At that time she spent 1 week at her parents' house and had difficulty breathing. She describes a feeling as if she has less lung capacity. She notes some chest tightness, congestion and will cough up milky white phlegm. She is not truly short of breath but her breathing is uncomfortable and she is more aware of it. She has had times of wheezing but not recently. Typically she suffered with symptoms. Once she left the home it would take days for symptoms to totally resolve. She has been given Flovent which caused her to lose her voice and have laryngitis. The Qvar caused a raspy voice but was better tolerated. She also has Maxair available which does provide some short-term relief, but again leaving the environment is the most beneficial. Away from parents' house Paty has had mild similar symptoms between March and April. Again symptoms do not prevent her from any activity nor cause nighttime awakening. Colds can go into her chest but not recently. She does exercise 3 times per week at a gym lifting weights and doing cardiovascular workout. If she pushes herself hard enough she will have some shortness of breath but questions deconditioning. Paty denies any significant nasal symptoms but on occasion will sneeze or blow her nose with clear drainage. She also notes rare itchy nose and itchy eyes. Her eyes can also feel dry and burning. She associates eyes symptoms with taking narcotics, specifically oxycodone. Little pet exposure. Her brother does have a dog and she will pretreat with the diphenhydramine. No history of nasal trauma, snoring, headaches. Her sense of smell is altered and claims skunk smell like joanna which is very good. Cats and heavy dust are consistent trigger. Paty has had scattered eczema, specifically on her forearm in the past. Hard cheese in excess will feel like her tongue is swelling but she can eat soft cheese and hard cheese in small quantities. No adverse reactions to bee stings. PAST MEDICAL HISTORY: Factor 5 deficiency, depression well controlled, back pain, gastric bypass surgery. FAMILY HISTORY: Father with allergic rhinitis, asthma, COPD. Mother not atopic. Four out of 5 siblings with allergic rhinitis, 2 also had asthma. Paty has no children. Paty is , living in a 17-year-old home, forced air heat, central air conditioning, carpeted bedroom. No feathers. 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 No pets. Nonsmoker. She enjoys gardening, motorcycle riding, computer and TV. MEDICATIONS: Reviewed and updated in [employer]. ALLERGIES: Percocet causing pruritus. PHYSICAL EXAM: BP 122/66, height 64.5 inches, weight 206 pounds. Healthy female in no distress. SKIN: Without rashes. Eyes: Conjunctivae clear. PERRLA. Ears: Canals patent. TMs normal. Nose: Without obstruction, discharge, discoloration. Oropharynx clear. Teeth and gums good repair. NECK: Supple, no adenopathy. Thyroid not palpable. LUNGS: Clear with good air movement. No wheezes, rales or rhonchi. CV: Regular rate and rhythm. Normal S1, S2. No murmurs, rubs or gallops. Skin test showing appropriate response to saline and histamine. Positive to both dust mites, cat, dog, Alternaria, tamanna, cottonwood, maple, oak, grass, ragweed. Spirometry normal with all values greater than 100% of predicted. FEV-1 of 3.26 L, FVC 3.9 L, ratio 84%, small airflow 3.19 L/s, 116% of predicted. IMPRESSION: 1. Perennial and seasonal allergic rhinitis. Reviewed allergy treatment options to include avoidance, medication and immunotherapy. Suggest longer acting, non-sedating or less sedating antihistamine such as cetirizine or fexofenadine as a possible alternative to diphenhydramine if needed. No interest or indication for immunotherapy at this time. 2. Dyspnea. Normal spirometry is very reassuring. At this point history suggests asthma but there is no good documentation to support diagnosis. Discussed goals of treatment. As long as spirometry maintains normal values symptoms are primary and having bronchodilator available to use as needed. Patient is aware if bronchodilator use changes significantly would reassess at that time. Using antihistamines may prevent some asthma. At this point, Paty has tried 2 different inhaled corticosteroids and has had more side effects than benefit. PLAN: 1. Allergen avoidance discussed. 2. OTC antihistamine regularly as needed. 3. Reviewed MDI technique. 4. Maxair p.r.n. 5. Return to clinic p.r.n. 6. CC copy to Shira Rodney, referring provider. [place]: [place] [address] [place] [address] PJ[facility]:MEDQ C: CONFIRM #: [id number] documented in this encounter Plan of Treatment Not on filedocumented as of this encounter Visit Diagnoses Not on filedocumented in this encounter Care Teams Funeral Sales Manager Relationship Specialty Start Date End Date Shira Rodney MD PCP - General 09/25/10 01/11/21 [address] [place] [address] documented as of this encounter
--- OUTSIDE RECORDS SUMMARY | 2022-01-29 17:52 | XMS_ITS | Encounter Summary ---
:1960 Author Organization [employer] Address [address] [place] [address] Care Team Providers Name Role Phone Olamide Rodney MD Primary Care Provider Encounter Details Date Type Department Care Team Description 05/01/2011 [facility] [address] [place], [place] [id number] Social History Tobacco Use Types Packs/Day Years Used Date Smoking Tobacco: Never Alcohol Use Standard Drinks/Week Comments Yes 0 (1 standard drink = 0.6 oz pure alcoho l) mod Sex Assigned at Date Recorded Not on file documented as of this encounter Medications at Time of Discharge Medication Sig Dispensed Refills Start Date End Date aspirin 81 MG Take 2 tablets by 3 10/04/2010 tabletIndications: mouth daily (every TROSVIGPATY K Fri 24 hours). LW Addl 2013 1:27 PM Stopped Instr:hold until taking aspirin per lovenox dc'd instructions for procedure. Calcium-Vitamin D-Vitamin 3 times daily. 0 200604/21/2012 K (VIACTIV OR) cyanocobalamin ([facility] Take by mouth twice 0 011 04/21/2012 VITAMIN B12) 1000 MCG a week. tablet Multiple Vitamins-Minerals Take 1 tablet by 0 04/21/2012 (MULTIVITAMIN ADULT OR) mouth daily (every 24 hours). pirbuterol (AKA MAXAIR Take 1-2 puffs by 14 12 201008/27/2012 AUTOHALER) 200 MCG/INH mouth every 4 hours inhaler as needed. LW Addl Instr:Indicated for: Asthma unknown medication Indications: PN: 0 10/04/2010 03/04/2012 ASPIRIN EC 81MG ORAL TABS 3 TABLETS DAILY 0 11/0704/02/2016 CALCIUM + D 600-200 MG-IU 3 TABLET DAILY 0 200204/02/2016 OR TABS CYANOCOBALAMIN 1000 MCG SL 1 every other day 0 99 04/02/2016 SUBL FLINTSTONES PLUS IRON OR 2 per day 0 03/24/2003 04/02/2016 CHEW PIRBUTEROL ACETATE (MAXAIR use as directed prn 1 0 09/24/2004 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) 200MCG/INH INHALERIndications: Unspecified asthma(493.90) (HR) documented as of this encounter Plan of Treatment Not on filedocumented as of this encounter Visit Diagnoses Not on filedocumented in this encounter Care Teams Ski Patrol Officer Relationship Specialty Start Date End Date Olamide Rodney MD PCP - General 09/25/10 01/11/21 [address] [place] [address] documented as of this encounter
--- OUTSIDE RECORDS SUMMARY | 2022-01-29 17:52 | XMS_ITS | Encounter Summary ---
:1960 Author Organization [facility] Address [address] [place] [address] Care Team Providers Name Role Phone Olamide Rodney MD Primary Care Provider Reason for Visit Reason Comments Other Encounter Details Date Type Department Care Team Description 10/04/2010 Telephone [facility] [address] [facility], Message Other Oncology [address] [place], [place] [address] Social History Tobacco Use Types Packs/Day Years Used Date Smoking Tobacco: Never Alcohol Use Standard Drinks/Week Comments Yes 0 (1 standard drink = 0.6 oz pure alcoho l) mod Sex Assigned at Date Recorded Not on file documented as of this encounter Progress Notes Phyllis Shaikh, PARVEZ - 10/04/2010 2:44 PM CDT PRESCRIPTION REFILL Please provide enough refills to last until patient's next visit. Comment:- lv 09/24/10 no future Pharmacy Seq #:- [phone] Pharmacy Name-Phone/Fax:- Michelle cabrera [phone] f [phone] or City:-[address] Clinician Name:Alonzo Iqbal Drug Name/Strength:-hydrocodone/apap 5mg/500 Sig: Dose/Route/Freq:- 1-2 tablets q4hrs prn Quantity & Last Fill:- 90 09/28/10 *ECODE~PNRF Created on 04Oct2010 2:44pm by PYHLLIS SHAIKH On 05Oct2010 1:57pm HARJEET SOLIS wrote: Verbal order for refill given by Dr Iqbal. Pt can have #30 not 90. Rx called to [facility] documented in this encounter Plan of Treatment Not on filedocumented as of this encounter Visit Diagnoses Not on filedocumented in this encounter Care Teams Plating Foreman Relationship Specialty Start Date End Date Olamide Rodney MD PCP - General 09/25/10 01/11/21 [address] [place] [address] documented as of this encounter
--- OUTSIDE RECORDS SUMMARY | 2022-01-29 17:52 | XMS_ITS | Encounter Summary ---
:1960 Author Organization [employer] Address [address] [place] [address] Care Team Providers Name Role Phone Olamide Rodney MD Primary Care Provider Encounter Details Date Type Department Care Team Description 08/05/2011 Lab Visit [facility] S/P gastric bypass; [id number] [employer] [facility] Diabetes type 2, [place] [address] Social History Tobacco Use Types Packs/Day Years Used Date Smoking Tobacco: Never Alcohol Use Standard Drinks/Week Comments Yes 0 (1 standard drink = 0.6 oz pure alcoho l) mod Sex Assigned at Date Recorded Not on file documented as of this encounter Plan of Treatment Not on filedocumented as of this encounter Procedures Procedure Name Priority Date/Time Associated Comments Diagnosis GLUCOSE Routine 08/05/2011 7:11 AM Diabetes type 2, Resul ts for this [employer] controlled (HRC) procedure a re in the results section. THYROID STIMULATING Routine 08/05/2011 7:11 AM S/P gastric byp ass Results for this HORMONE [employer] procedure are i n the results section. LIPID PANEL AND Routine 08/05/2011 7:11 AM S/P gastric bypass Results for this DIRECT LDL(IF NEEDED) [employer] proced ure are in the results section. VITAMIN D 25-HYDROXY, Routine 08/05/2011 7:11 AM S/P gastric b ypass Results for this TOTAL [employer] procedure are i n the results section. CREATININE / GFR Routine 08/05/2011 7:11 AM S/P gastric bypass Results for this [employer] procedure are i n the results section. COMPLETE BLOOD Routine 08/05/2011 7:11 AM S/P gastric bypass R esults for this COUNT-W/DIFF [employer] procedure are i n the results section. DIFFERENTIAL Routine 08/05/2011 7:11 AM Results f or this [employer] procedure are i n the results section. ELECTROLYTE PANEL Routine 08/05/2011 7:11 AM S/P gastric bypas s Results for this [employer] procedure are i n the results section. MAGNESIUM Routine 08/05/2011 7:11 AM S/P gastric bypass Res ults for this [employer] procedure are i n the results section. FERRITIN Routine 08/05/2011 7:11 AM S/P gastric bypass Res ults for this [employer] procedure are i n the results section. HGB A1C Routine 08/05/2011 7:11 AM Diabetes type 2, Resul ts for this [employer] controlled (HRC) procedure a re in the results section. VITAMIN B12 ONLY Routine 08/05/2011 7:11 AM S/P gastric bypass Results for this [employer] procedure are i n the results section. ALT (SGPT) Routine 08/05/2011 7:11 AM S/P gastric bypass Res ults for this [employer] procedure are i n the results section. AST Routine 08/05/2011 7:11 AM S/P gastric bypass Res ults for this [employer] procedure are i n the results section. PHOSPHORUS Routine 08/05/2011 7:11 AM S/P gastric bypass Res ults for this [employer] procedure are i n the results section. CALCIUM Routine 08/05/2011 7:11 AM S/P gastric bypass Res ults for this [employer] procedure are i n the results section. BUN Routine 08/05/2011 7:11 AM S/P gastric bypass Res ults for this [employer] procedure are i n the results section. ALBUMIN Routine 08/05/2011 7:11 AM S/P gastric bypass Res ults for this [employer] procedure are i n the results section. documented in this encounter Results Differential (08/05/2011 7:11 AM [employer]) P athologist Signature Absolute 2.3 1.8 - 8.0 HP CONVERSION Neutrophils k/cmm Absolute 1.9 1.1 - 4.0 HP CONVERSION Lymphocytes k/cmm Absolute 0.3 0.2 - 0.8 HP CONVERSION Monocytes k/cmm Absolute 0.1 0.0 - 0.5 HP CONVERSION Eosinophils k/cmm Absolute 0.0 0.0 - 0.2 HP CONVERSION Basophils k/cmm Specimen Anatomical Collection Method Collection Time Receive d Time (Source) Location / / Volume Laterality 08/05/2011 7:11 AM 2 7:10 [employer] AM [employer] Narrative HP CONVERSION - 08/05/2011 7:27 AM [employer] Performed at [facility], [address] [place] [address] Olamide Rodney MD LAB_1 Performing Organization Address City/[facility] [place] [facility] Phon e Number HP CONVERSION (ABNORMAL) Hemogram/Plts/Diff (08/05/2011 7:11 AM [employer]) [facility] gist Method Time Signature White Blood Cell 4.6 3.8 - HP CONVERSION Count 11.0 k/cmm Red Blood Cell 4.13 3.70 - HP CONVERSION Count 5.20 m/cmm Hemoglobin 14.7 11.8 - HP CONVERSION 15.5 g/dL Hematocrit 42.1 35.0 - HP CONVERSION 46.0 % Mean Corpuscular 102.0 (H) 80.0 - HP CONVERSION Volume 100.0 fL RDW 12.6 11.0 - HP CONVERSION 15.0 % Platelet Count 221 140 - 450 HP CONVERSION k/cmm Specimen Anatomical Collection Method Collection Time Receive d Time (Source) Location / / Volume Laterality 08/05/2011 7:11 AM 2 7:10 [employer] AM [employer] Narrative HP CONVERSION - 08/05/2011 7:27 AM [employer] Performed at [facility], [address] [place] [address] Olamide Rodney MD LAB_1 Performing Organization Address City/[facility] Code Phon e Number HP CONVERSION Hgb A1c (08/05/2011 7:11 AM [employer]) athologist Signature HGB A1C 5.8 0.0 - 6.0 % HP CONVERSION Specimen Anatomical Collection Method Collection Time Receive d Time (Source) Location / / Volume Laterality 08/05/2011 7:11 AM 2 [employer] 12:10 PM [employer] Olamide Rodney MD LAB_1 Performing Organization Address City/[facility] [place] [facility] Phon e Number HP CONVERSION Ferritin (08/05/2011 7:11 AM [employer]) athologist Signature Ferritin Serum 74 10 - 291 HP CONVERSION ng/mL Specimen Anatomical Collection Method Collection Time Receive d Time (Source) Location / / Volume Laterality 08/05/2011 7:11 AM 2 [employer] 12:11 PM [employer] Olamide Rodney MD LAB_1 Performing Organization Address City/[facility]/ZIP Code Phon e Number HP CONVERSION Lipid Panel and Direct LDL(If Needed) (08/05/2011 7:11 AM [employer]) [facility] gist Method Time Signature Cholesterol 167 0 - 200 HP CONVERSION mg/dL Triglycerides 108 0 - 149 HP CONVERSION mg/dL HDL Cholesterol 73 >39 mg/dL HP CONVERSION Cholesterol/HDL 2.3 HP CONVERSION Ratio Screen LDL Calculated 72 19 - 130 HP CONVERSION mg/dL Length Of Fast 12.0 HP CONVERSION Specimen Anatomical Collection Method Collection Time Receive d Time (Source) Location / / Volume Laterality 08/05/2011 7:11 AM 2 7:10 [employer] AM [employer] Narrative HP CONVERSION - 08/05/2011 8:24 AM [employer] Performed at [facility], [address] [place] [address] Olamide Rodney MD LAB_1 Performing Organization Address [facility] [place] [facility] Phon e Number HP CONVERSION Phosphorus (08/05/2011 7:11 AM [employer]) athologist Signature Phosphorus 3.5 2.5 - 4.5 HP CONVERSION Serum mg/dL Specimen Anatomical Collection Method Collection Time Receive d Time (Source) Location / / Volume Laterality 08/05/2011 7:11 AM 2 7:10 [employer] AM [employer] Narrative HP CONVERSION - 08/05/2011 8:24 AM [employer] Performed at [facility], [address] [place] [address] Olamide Rodney MD LAB_1 Performing Organization Address City/[facility]/ZIP Code Phon e Number HP CONVERSION Magnesium (08/05/2011 7:11 AM [employer]) athologist Signature Magnesium 2.1 1.5 - 2.4 HP CONVERSION mg/dL Specimen Anatomical Collection Method Collection Time Receive d Time (Source) Location / / Volume Laterality 08/05/2011 7:11 AM 2 7:10 [employer] AM [employer] Narrative HP CONVERSION - 08/05/2011 8:24 AM [employer] Performed at [facility], [address] [place] [address] Olamide Rodney MD LAB_1 Performing Organization Address [facility] Phon e Number HP CONVERSION GLUCOSE (08/05/2011 7:11 AM [employer]) athologist Signature Lab Glucose 86 60 - 100 HP CONVERSION mg/dL Specimen Anatomical Collection Method Collection Time Receive d Time (Source) Location / / Volume Laterality 08/05/2011 7:11 AM 2 7:10 [employer] AM [employer] Narrative HP CONVERSION - 08/05/2011 8:24 AM [employer] [place] [address] Olamide Rodney MD LAB_1 Performing Organization Address [facility] Phon e Number HP CONVERSION Electrolyte Panel (08/05/2011 7:11 AM [employer]) athologist [facility] Sodium 141 137 - 147 HP CONVERSION mEq/L Potassium 4.2 3.5 - 5.2 HP CONVERSION mEq/L Chloride 103 98 - 110 HP CONVERSION mEq/L Bicarbonate 33 23 - 33 HP CONVERSION mmol/L Specimen Anatomical Collection Method Collection Time Receive d Time (Source) Location / / Volume Laterality 08/05/2011 7:11 AM 2 7:10 [employer] AM [employer] Narrative HP CONVERSION - 08/05/2011 8:24 AM [employer] Performed at [facility], [address] [place] [address] Olamide Rodney MD LAB_1 Performing Organization Address [facility] Phon e Number HP CONVERSION Creatinine / GFR (08/05/2011 7:11 AM [employer]) athologist Signature Creatinine 0.7 0.4 - 1.3 [...] Time (Source) Location / / Volume Laterality 08/05/2011 7:11 AM 2 7:10 [employer] AM [employer] Narrative HP CONVERSION - 08/05/2011 8:24 AM [employer] Performed at [facility], [address] [place] [address] Olamide Rodney MD LAB_1 Performing Organization Address [facility] Phon e Number HP CONVERSION Calcium (08/05/2011 7:11 AM [employer]) athologist Signature Calcium 9.4 8.5 - 10.5 HP CONVERSION mg/dL Specimen Anatomical Collection Method Collection Time Receive d Time (Source) Location / / Volume Laterality 08/05/2011 7:11 AM 2 7:10 [employer] AM [employer] Narrative HP CONVERSION - 08/05/2011 8:24 AM [employer] Performed at [facility], [address] [place] [address] Olamide Rodney MD LAB_1 Performing Organization Address [facility] Phon e Number HP CONVERSION BUN (08/05/2011 7:11 AM [employer]) athologist Signature Blood Urea 14 5 - 26 HP CONVERSION Nitrogen mg/dL Specimen Anatomical Collection Method Collection Time Receive d Time (Source) Location / / Volume Laterality 08/05/2011 7:11 AM 2 7:10 [employer] AM [employer] Narrative HP CONVERSION - 08/05/2011 8:24 AM [employer] [place] [address] Olamide Rodney MD LAB_1 Performing Organization Address [facility] Phon e Number HP CONVERSION Albumin (08/05/2011 7:11 AM [employer]) athologist Signature Albumin 4.5 3.4 - 5.0 HP CONVERSION g/dL Specimen Anatomical Collection Method Collection Time Receive d Time (Source) Location / / Volume Laterality 08/05/2011 7:11 AM 2 7:10 [employer] AM [employer] Narrative HP CONVERSION - 08/05/2011 8:24 AM [employer] Performed at [facility], [address] [place] [address] Olamide Rodney MD LAB_1 Performing Organization Address [facility] Phon e Number HP CONVERSION AST (08/05/2011 7:11 AM [employer]) [facility] Method Time Signature Aspartate 31 0 - 45 HP CONVERSION Aminotransferase U/L Specimen Anatomical Collection Method Collection Time Receive d Time (Source) Location / / Volume Laterality 08/05/2011 7:11 AM 2 7:10 [employer] AM [employer] Narrative HP CONVERSION - 08/05/2011 8:24 AM [employer] Performed at [facility], [address] [place] [address] Olamide Rodney MD LAB_1 Performing Organization Address [facility] Phon e Number HP CONVERSION ALT (SGPT) (08/05/2011 7:11 AM [employer]) [facility] Method Time Signature Alanine 22 4 - 55 HP CONVERSION Aminotransferase U/L Specimen Anatomical Collection Method Collection Time Receive d Time (Source) Location / / Volume Laterality 08/05/2011 7:11 AM 2 7:10 [employer] AM [employer] Narrative HP CONVERSION - 08/05/2011 8:24 AM [employer] Performed at [facility], [address] [place] [address] Olamide Rodney MD LAB_1 Performing Organization Address City/[facility] Code Phon e Number HP CONVERSION THYROID STIMULATING HORMONE (08/05/2011 7:11 AM [employer]) P athologist Signature Thyroid 3.70 0.20 - HP CONVERSION Stimulating 4.50 mIU/L Hormone Specimen Anatomical Collection Method Collection Time Receive d Time (Source) Location / / Volume Laterality 08/05/2011 7:11 AM 2 [employer] 12:11 PM [employer] Olamide Rodney MD LAB_1 Performing Organization Address City/[facility]/ZIP Code Phon e Number HP CONVERSION B12 Only (08/05/2011 7:11 AM [employer]) P athologist Signature Vitamin B12 860 211 - 911 HP CONVERSION pg/dL Specimen Anatomical Collection Method Collection Time Receive d Time (Source) Location / / Volume Laterality 08/05/2011 7:11 AM 2 [employer] 12:11 PM [employer] Olamide Rodney MD LAB_1 Performing Organization Address City/[facility]/ZIP [place] Phon e Number HP CONVERSION Vitamin D 25-Hydroxy, Total (08/05/2011 7:11 AM [employer]) athologist Signature Vitamin D 25 Oh 39 20 - 80 HP CONVERSION ng/mL Comment: Deficiency = <20 Adequate ??= 20-29 Preferred = 30-50 Uncertain safety = 51-80 High = >80 Specimen Anatomical Collection Method Collection Time Receive d Time (Source) Location / / Volume Laterality 08/05/2011 7:11 AM 2 [employer] 12:11 PM [employer] Olamide Rodney MD LAB_1 Performing Organization Address City/[facility] Phon e Number HP CONVERSION documented in this encounter Visit Diagnoses Diagnosis S/P gastric bypass Bariatric surgery status Diabetes type 2, controlled (HRC) Type II or unspecified type diabetes rod litus without mention of complication, not stated as uncontrolled documented in this encounter Care Teams Subcontract Administrator Relationship Specialty Start Date End Date Olamide Rodney MD PCP - General 09/25/10 01/11/21 [address] [place] [address] documented as of this encounter
--- OUTSIDE RECORDS SUMMARY | 2022-01-29 17:52 | XMS_ITS | Encounter Summary ---
:1960 Author Organization [employer] Address [address] [place] [address] Care Team Providers Name Role Phone Olamide Rodney MD Primary Care Provider Encounter Details Date Type Department Care Team Description 08/31/2010 PN Conversion Only [facility] [address], Dermatology [address] [facility] [address] [place], [place] [phone] (Wo rk) Social History Tobacco Use Types [...] filedocumented in this encounter Care Teams Senior Mechanical Designer Relationship Specialty Start Date End Date Olamide Rodney MD PCP - General 09/25/10 01/11/21 [address] [facility] [place] [address] documented as of this encounter
--- OUTSIDE RECORDS SUMMARY | 2022-01-29 17:52 | XMS_ITS | Encounter Summary ---
:1960 Author Organization [employer] Address [address], [place] [address] Care Team Providers Name Role Phone Olamide Rodney MD Primary Care Provider Encounter Details Date Type Department Care Team Description 10/04/2010 Office Visit [facility] Malka Rodney MD [address] [address] [place], [place] [address] [phone] Social History Tobacco Use Types Packs/Day Years Used Date Smoking Tobacco: Never Alcohol Use Standard Drinks/Week Comments Yes 0 (1 standard drink = 0.6 oz pure alcoho l) mod Sex Assigned at Date Recorded Not on file documented as of this encounter Last Filed Vital Signs Vital Sign Reading Time Taken Comments Blood Pressure 128/82 10/04/2010 11:36 AM CDT Pulse 62 10/04/2010 11:36 AM CDT Temperature - - Respiratory Rate - - Oxygen Saturation - - Inhaled Oxygen Concentration - - Weight 94.3 kg (207 lb 15.7 oz) 10/04/2010 11:36 AM C: 94.3kg CDT Height - - Body Mass Index 35.15 09/10/2010 10:59 AM CDT documented in this encounter Progress Notes Olamide Rodney MD - 10/04/2010 12:01 AM CDT Progress Notes signed by Olamide Rodney MD at 10/08/10 1246 Author: Olamide Rodney MD Service: (none) Author Type: Physician Filed: 10/18/10 1422 Note Time: 10/04/10 0001 Status: Signed [employer] Bi Developer: Olamide Rodney MD (Physician) NAME: PATY LLAMAS MR#: [id number] ACCT: [id number] VISIT: [id number] DICTATING CLINICIAN: Olamide Rodney MD CONFIRM #: [id number] LOC: 506 CLINIC PROGRESS NOTE DATE OF VISIT: 10/04/2010 : 1960 HISTORY: A 49-year-old for a multiple followup. I did see her for the first time in July for her physical. She had multiple additional concerns that we got started on. She was after that diagnosed with stage IA grade 2 endometrial cancer, and has had since the hysterectomy and oophorectomy. She is still recovering from surgery. She is still on some Lovenox for DVT prophylaxis, in addition. She is seeing Dr. Iqbal. She does carry a history of factor V Leiden. In addition, she asks about her back. She does get intermittent low back pain. She was found to have degenerative disks, especially at L5-S1, on imaging in 2008. She also has a history of seasonal asthma and she will occasionally use the QVAR or Maxair, although she rarely needs them. She has tried Flovent, but it caused laryngitis. She tried to the QVAR. It worked well, but caused a little hoarseness. She will usually have a cough as the main symptom of her asthma. Her father has COPD. In addition the patient has a diagnosis of type 2 diabetes mellitus, which was essentially markedly improved and in remission after her gastric bypass in 2002. We reviewed multiple labs that had been done after her physical. She has had normal electrolytes, BUN, creatinine. Total cholesterol 167, HDL 70, LDL 76. Her A1c was at 5.4. Normal urine microalbumin. TSH normal. Multiple labs, including vitamin D, looked fine. Other vitamin levels also adequate. HABITS: No smoking. PAST MEDICAL HISTORY: See the updated list, today's [employer] patient health profile. ALLERGIES: See the updated list, today's [employer] patient health profile. MEDICATIONS: See the updated list, today's [employer] patient health profile. OBJECTIVE: VITAL SIGNS: Blood pressure 128/82, pulse 62, weight 208. GENERAL: She is an overweight female with a nontoxic appearance. EYES: No icterus or injection. NECK: No lymphadenopathy, thyromegaly. LUNGS: Clear posteriorly. CARDIOVASCULAR: Regular rate and rhythm. ABDOMEN: Bowel sounds present. Small laparoscopic incisions are healing well. EXTREMITIES: No edema. PSYCHIATRIC: An appropriate mood and affect. ASSESSMENT: 1. Recent diagnosis endometrial cancer stage IA grade 2 status post hysterectomy and oophorectomy. Still followed by Gynecology/Oncology. 2. History of factor V Leiden and deep venous thrombosis, currently on Lovenox. 3. History of lumbar degenerative disk disease. 4. Asthma, environmental and seasonal. 5. History of gastric bypass. 6. Type 2 diabetes mellitus controlled. PLAN: We reviewed multiple things today. She is doing well from the standpoint of the cancer. She would need further Pap smears, as directed by Dr. Iqbal. I am happy to do those here, if needed. In addition, she will stay on the Lovenox until he has her discontinue. We will do an A1c in about 4-6 months. Recommend consultation with Asthma and Allergy also in the near future. SME:MEDQ C: CONFIRM #: [id number] documented in this encounter Plan of Treatment Not on filedocumented as of this encounter Visit Diagnoses Not on filedocumented in this encounter Care Teams Ssis Developer Relationship Specialty Start Date End Date Olamide Rodney MD PCP - General 09/25/10 01/11/21 [address] [place] [address] documented as of this encounter
--- OUTSIDE RECORDS SUMMARY | 2022-01-29 17:52 | XMS_ITS | Encounter Summary ---
:1960 Author Organization [employer] Address [address] [place] [address] Care Team Providers Name Role Phone Olamide Rodney MD Primary Care Provider Reason for Visit Reason Comments Other Encounter Details Date Type Department Care Team Description 09/11/2010 Telephone [facility] [address] MD Other Dermatology [address] [place] [address] [place] [address] [phone] Social History Tobacco Use Types Packs/Day Years Used Date Smoking Tobacco: Never Alcohol Use Standard Drinks/Week Comments Yes 0 (1 standard drink = 0.6 oz pure alcoho l) mod Sex Assigned at Date Recorded Not on file documented as of this encounter Progress Notes Debi Larios RN - 09/11/2010 9:33 AM CDT Pt is calling to advise she would like RX for Aldara sent to [id number]. She was given results of bx results of right superior cheek which was AK. Will send to Dr Bagley to send RX. Created on 11Sep2010 9:33am by DEBI LARIOS On 11Sep2010 12:15pm SEBLE BAGLEY wrote: Rx sent. Aldara for AK on right cheek. Acknowledged by SEBLE BAGLEY on 12:15pm documented in this encounter Plan of Treatment Not on filedocumented as of this encounter Visit Diagnoses Not on filedocumented in this encounter Care Teams Chiropractor Sole Practitioner Relationship Specialty Start Date End Date Olamide Rodney MD PCP - General 09/25/10 01/11/21 [address] [place] [address] documented as of this encounter
--- OUTSIDE RECORDS SUMMARY | 2022-01-29 17:52 | XMS_ITS | Encounter Summary ---
:1960 Author Organization [employer] Address [address] [place] [address] Care Team Providers Name Role Phone Olamide Rodney MD Primary Care Provider Encounter Details Date Type Department Care Team Description 03/18/2011 Notes/Orders [place] [facility] Olamide Rodney DM w/o complication Medicine MD Elina type II (Primary Dx) [address] [facility] [address] [place] [address] [facility] [phone] [place] [address] Social History Tobacco Use Types Packs/Day Years Used Date Smoking Tobacco: Never Alcohol Use Standard Drinks/Week Comments Yes 0 (1 standard drink = 0.6 oz pure alcoho l) mod Sex Assigned at Date Recorded Not on file documented as of this encounter Plan of Treatment Not on filedocumented as of this encounter Visit Diagnoses Diagnosis Type II or unspecified type diabetes rod litus without mention of complication, not stated as uncontrolled - Primary documented in this encounter Care Teams Local Intermodal Truck Driver Relationship Specialty Start Date End Date Olamide Rodney MD PCP - General 09/25/10 01/11/21 [address] [place] [address] documented as of this encounter
--- OUTSIDE RECORDS SUMMARY | 2022-01-29 17:52 | XMS_ITS | Encounter Summary ---
:1960 Author Organization [employer] Address [address] [place] [address] Care Team Providers Name Role Phone Olamide Rodney MD Primary Care Provider Reason for Visit Reason Comments Other Encounter Details Date Type Department Care Team Description 09/04/2010 Telephone [place] Obstetrics/Gynecolog y [address] [facility] [address] [place] [address] [place], [place] [id number] (Wo rk) Social History Tobacco Use Types Packs/Day Years Used Date Smoking Tobacco: Never Alcohol Use Standard Drinks/Week Comments Yes 0 (1 standard drink = 0.6 oz pure alcoho l) mod Sex Assigned at Date Recorded Not on file documented as of this encounter Progress Notes Martine Luis MD - 09/04/2010 3:13 PM CDT Review Pathology Report Please review the following Pathology Report: Endometrial bx These are available by clicking on the Lab Chart Tab: REMINDER: Once the note has been reviewed, click the ACKNOWLEDGE ALERT button to remove this alert from your Inbox. Created on 04Sep2010 3:13pm by MARTINE LUIS Acknowledged by JEREMY BROWNLEE on 3:52pm Acknowledged by JEREMY BROWNLEE on 3:52pm documented in this encounter Plan of Treatment Not on filedocumented as of this encounter Visit Diagnoses Not on filedocumented in this encounter Care Teams Surgical Rn Relationship Specialty Start Date End Date Olamide Rodney MD PCP - General 09/25/10 01/11/21 [address] [place] [address] documented as of this encounter
--- OUTSIDE RECORDS SUMMARY | 2022-01-29 17:52 | XMS_ITS | Encounter Summary ---
:1960 Author Organization [employer] Address [address] [place] [address] Care Team Providers Name Role Phone Olamide Rodney MD Primary Care Provider Reason for Visit Reason Comments Skin Check Encounter Details Date Type Department Care Team Description 03/18/2011 Office Visit [facility] [address] Ta Brink MD Screening for Dermatology [address] [place] malignant neoplasm of [address] [facility] [address] the skin (Primary Dx) [place] [id number] [phone] Social History Tobacco Use Types Packs/Day Years Used Date Smoking Tobacco: Never Alcohol Use Standard Drinks/Week Comments Yes 0 (1 standard drink = 0.6 oz pure alcoho l) mod Sex Assigned at Date Recorded Not on file documented as of this encounter Progress Notes Ta Brnik MD - 03/18/2011 12:05 PM CDT Progress Notes signed by Ta Brink MD at 03/20/11 71 Author: Ta Brink MD Service: (none) Author Type: Physician Filed: 03/20/11847 Note Time: 03/18/11 1205 Status: Signed Equal Opportunity Counselor: Ta Brink MD (Physician) NAME: PATY LLAMAS MR#: [id number] CSN: [id number] AUTHENTICATING CLINICIAN: Ta Brink MD CONFIRM #: [id number] LOC: 427 CLINIC PROGRESS NOTE DATE OF VISIT: 03/18/2011 : 1960 HISTORY OF PRESENT ILLNESS: Ms. Llamas is here for a full body skin examination. She has a few questionable spots. Has irritating spots on the right posterior lateral shoulder and the posterior lateral neck. She has a white spot on the left superior medial cheek. Had an infection of her right index finger long time ago but the area remains rough and slightly irritated. She has noticed a couple of bumps on the right upper arm. No other skin concerns today. History of actinic keratosis, biopsy proven, on the right superior lateral cheek. No personal or family history of skin cancer. MEDICATIONS: Reviewed and updated. ALLERGIES: Reviewed and updated. OBJECTIVE: Well-appearing, alert, in no distress. Head, neck, chest, abdomen, back, upper extremities, lower extremities examined. She has a 4 mm irregularly shaped whitish waxy papule on the left superior medial cheek. There is a 3 x 2 mm white papule, soft, on the right lateral posterior neck. There is a 4 mm pinkish indurated papule on the right upper arm, consistent with dermatofibroma, mild erythema and scaling along the hyponychium on the right index finger. There is a 5 x 4 mm pinkish light brown papule on the left lumbar back. Slightly medially and inferiorly, there is a 4 mm medium brown papule. ASSESSMENT/PLAN: 1. Irritant dermatitis on the right index fingertip. Topicort 0.25% cream 5 g sample tube twice a day for a week and then CeraVe cream daily after each hand washing. 2. Seborrheic keratosis on the left superior medial cheek. Dermatofibroma on the right upper arm. Benign growth on the right posterior neck. Benign nevus on the lumbar back. YW:MEDQ C: CONFIRM #: [id number] documented in this encounter Plan of Treatment Not on filedocumented as of this encounter Visit Diagnoses Diagnosis Screening for malignant neoplasm of the skin - Primary documented in this encounter Care Teams Beef Splitter Relationship Specialty Start Date End Date Olamide Rodney MD PCP - General 09/25/10 01/11/21 [address] [place] [address] documented as of this encounter
--- OUTSIDE RECORDS SUMMARY | 2022-01-29 17:52 | XMS_ITS | Encounter Summary ---
:1960 Author Organization [employer] Address [address] [place] [address] Care Team Providers Name Role Phone Olamide Rodney MD Primary Care Provider Reason for Visit Reason Comments Other Encounter Details Date Type Department Care Team Description 10/05/2010 Telephone [facility] 39[address] Harjeet Solis, RN Other Gynecology Oncology [address] [place], [place] [address] Social History Tobacco Use Types Packs/Day Years Used Date Smoking Tobacco: Never Alcohol Use Standard Drinks/Week Comments Yes 0 (1 standard drink = 0.6 oz pure alcoho l) mod Sex Assigned at Date Recorded Not on file documented as of this encounter Progress Notes Harjeet Solis, RN - 10/05/2010 1:58 PM CDT Amended workability form completed. Pt is to RTW on 10/15/10 not 10/08/10. Amended statement faxed to [facility] and copy to [place]. Created on 05Oct2010 1:58pm by HARJEET SOLIS documented in this encounter Plan of Treatment Not on filedocumented as of this encounter Visit Diagnoses Not on filedocumented in this encounter Care Teams Juke Box Servicer Relationship Specialty Start Date End Date Olamide Rodney MD PCP - General 09/25/10 01/11/21 [address] [place] [address] documented as of this encounter
--- OUTSIDE RECORDS SUMMARY | 2022-01-29 17:52 | XMS_ITS | Encounter Summary ---
:1960 Author Organization [employer] Address [address] [place] [address] Care Team Providers Name Role Phone Olamide Rodney MD Primary Care Provider Encounter Details Date Type Department Care Team Description 09/10/2010 PN Conversion Only [place] [facility] Jackson Iqbal MD [address] [place] [address] [facility] [address]th [place] [address] (Wo rk) Social History Tobacco [...] Procedure Name Priority Date/Time Associated Comments Diagnosis COMPLETE BLOOD Routine 09/10/2010 12:58 Results f or this COUNT-W/DIFF PM CDT procedure are i n the results section. DIFFERENTIAL Routine 09/10/2010 12:58 Results for this PM CDT procedure are i n the results section. APTT (ACTIVATED PARTIAL Routine 09/10/2010 12:54 Results for this THROMBOPLASTIN TIME PM CDT procedur e are in the results section. ELECTROLYTE PANEL Routine 09/10/2010 12:54 Result s for this PM CDT procedure are i n the results section. ALT (SGPT) Routine 09/10/2010 12:54 Results for this PM CDT procedure are i n the results section. AST Routine 09/10/2010 12:54 Results for this PM CDT procedure are i n the results section. BILIRUBIN, TOTAL Routine 09/10/2010 12:54 Results for this PM CDT procedure are i n the results section. BILI - DIRECT Routine 09/10/2010 12:54 Results fo r this PM CDT procedure are i n the results section. ALKALINE PHOSPHATASE, Routine 09/10/2010 12:54 Re sults for this TOTAL PM CDT procedure are i n the results section. ALBUMIN Routine 09/10/2010 12:54 Results for this PM CDT procedure are i n the results section. INR/PROTIME Routine 09/10/2010 12:54 Results for this PM CDT procedure are i n the results section. BLOOD GROUP & RH (BLOOD Routine 09/10/2010 12:53 Results for this TYPE) PM CDT procedure are i n the results section. ANTIBODY SCREEN Routine 09/10/2010 12:53 Results for this PM CDT procedure are i n the results section. documented in this encounter Results Differential (09/10/2010 12:58 PM CDT) Analysis Performed At Patho logist Time Signature Absolute 2.7 1.8 - 8.0 HP CONVERSION Neutrophils k/cmm Absolute 2.2 1.1 - 4.0 HP CONVERSION Lymphocytes k/cmm Absolute 0.4 0.2 - 0.8 HP CONVERSION Monocytes k/cmm Absolute 0.1 0.0 - 0.5 HP CONVERSION Eosinophils k/cmm Absolute 0.0 0.0 - 0.2 HP CONVERSION Basophils k/cmm Immature 0.4 0.0 - 0.5 HP CONVERSION Granulocytes % Specimen (Source) Anatomical Collection Method Collection Time Re ceived Time Location / / Volume Laterality 09/10/2010 12:58 PM CDT Jackson Iqbal MD LAB_1 Performing Organization Address City/State/ZIP Code Phon e Number HP CONVERSION Hemogram/Plts/Diff (09/10/2010 12:58 PM CDT) P athologist Signature White Blood Cell 5.4 3.8 - 11.0 HP CONVERSIO N Count k/cmm Red Blood Cell 4.28 3.70 - HP CONVERSION Count 5.20 m/cmm Hemoglobin 14.8 11.8 - HP CONVERSION 15.5 g/dL Hematocrit 42.8 35.0 - HP CONVERSION 46.0 % Mean Corpuscular 100.0 80.0 - HP CONVERSION Volume 100.0 fL RDW 12.7 11.0 - HP CONVERSION 15.0 % Platelet Count 228 140 - 450 HP CONVERSION k/cmm Specimen (Source) Anatomical Collection Method Collection Time Re ceived Time Location / / Volume Laterality 09/10/2010 12:58 PM CDT Jackson Iqbal MD LAB_1 Performing Organization Address City/State/ZIP Code Phon e Number HP CONVERSION INR/Protime (09/10/2010 12:54 PM CDT) Analysis Performed At Patho logist Time Signature Prothrombin Time 12.8 12.6 - 15.0 HP CONVERSI ON sec INR 1.0 No normal HP CONVERSION range Comment: Recommendations for INR in warfarin ther apy: (Chest, Vol. 119, No. 1, Jun 2000, Suppl ement). Prevention and treatment of venous throm bosis; ? INR 2.0-3.0 Treatment of PE; Prevention of systemic embolism due to prosthetic tissue heart valves, b ileaflet mechanical valves in the aortic position , acute NM, valvular heart disease and atrial fibril lation. Mechanical prosthetic valves, (high risk ). ? INR 2.5-3.5 Prevention of recurrent myocardial infar ct. These recommended ranges serve as guidel julee. Adjustment outside these ranges may be c linically indicated. Specimen (Source) Anatomical Collection Method Collection Time Re ceived Time Location / / Volume Laterality 09/10/2010 12:54 PM CDT Jackson Iqbal MD LAB_1 Performing Organization Address City/State/ZIP Code Phon e Number HP CONVERSION Electrolyte Panel (09/10/2010 12:54 PM CDT) P athologist Signature Sodium 141 137 - 147 HP CONVERSION mEq/L Potassium 4.0 3.5 - 5.2 HP CONVERSION mEq/L Chloride 105 98 - 110 HP CONVERSION mEq/L Bicarbonate 29 23 - 33 HP CONVERSION mmol/L Specimen (Source) Anatomical Collection Method Collection Time Re ceived Time Location / / Volume Laterality 09/10/2010 12:54 PM CDT Jackson Iqbal MD LAB_1 Performing Organization Address City/[facility]/ZIP Code Phon e Number HP CONVERSION APTT (Activated Partial Thromboplastin Time) (09/10/2010 12:54 PM CDT) [facility] Method Time Signature Partial 28.6 25.0 - HP CONVERSION Thromboplastin Time 38.0 sec Specimen (Source) Anatomical Collection Method Collection Time Re ceived Time Location / / Volume Laterality 09/10/2010 12:54 PM CDT Jackson Iqbal MD LAB_1 Performing Organization Address City/[facility] Code Phon e Number HP CONVERSION Bilirubin, Total (09/10/2010 12:54 PM CDT) athologist Signature Bilirubin Total 0.2 0.2 - 1.2 HP CONVERSION mg/dL Specimen (Source) Anatomical Collection Method Collection Time Re ceived Time Location / / Volume Laterality 09/10/2010 12:54 PM CDT Jackson Iqbal MD LAB_1 Performing Organization Address City/[facility] Code Phon e Number HP CONVERSION Bilirubin, Direct (09/10/2010 12:54 PM CDT) athologist Signature Bilirubin, 0.1 0.0 - 0.4 HP CONVERSION Direct mg/dL Specimen (Source) Anatomical Collection Method Collection Time Re ceived Time Location / / Volume Laterality 09/10/2010 12:54 PM CDT Jackson Iqbal MD LAB_1 Performing Organization Address City/[facility] Code Phon e Number HP CONVERSION AST (09/10/2010 12:54 PM CDT) [facility] Method Time Signature Aspartate 35 0 - 45 HP CONVERSION Aminotransferase U/L Specimen (Source) Anatomical Collection Method Collection Time Re ceived Time Location / / Volume Laterality 09/10/2010 12:54 PM CDT Jackson Iqbal MD LAB_1 Performing Organization Address City/[facility]/ZIP Code Phon e Number HP CONVERSION ALT (SGPT) (09/10/2010 12:54 PM CDT) [facility] Method Time Signature Alanine 23 4 - 55 HP CONVERSION Aminotransferase U/L Specimen (Source) Anatomical Collection Method Collection Time Re ceived Time Location / / Volume Laterality 09/10/2010 12:54 PM CDT Jackson Iqbal MD LAB_1 Performing Organization Address City/[facility]/ZIP Code Phon e Number HP CONVERSION Alkaline Phosphatase, Total (09/10/2010 12:54 PM CDT) athologist Signature Alk Phos 76 25 - 135 U/L HP CONVERSION Specimen (Source) Anatomical Collection Method Collection Time Re ceived Time Location / / Volume Laterality 09/10/2010 12:54 PM CDT Jackson Iqbal MD LAB_1 Performing Organization Address City/[facility] Code Phon e Number HP CONVERSION Albumin (09/10/2010 12:54 PM CDT) athologist Signature Albumin 4.4 3.4 - 5.0 HP CONVERSION g/dL Specimen (Source) Anatomical Collection Method Collection Time Re ceived Time Location / / Volume Laterality 09/10/2010 12:54 PM CDT Jackson Iqbal MD LAB_1 Performing Organization Address [facility] Code Phon e Number HP CONVERSION ANTIBODY SCREEN (09/10/2010 12:53 PM CDT) athologist Signature N/O BB NEG No normal HP CONVERSION ANTIBODY range SCREEN Specimen (Source) Anatomical Collection Method Collection Time Re ceived Time Location / / Volume Laterality 09/10/2010 12:53 PM CDT Jackson Iqbal MD PN BLOOD BANK ORDERS Performing Organization Address City/[facility]/ZIP Code Phon e Number HP CONVERSION BLOOD GROUP & RH (BLOOD TYPE) (09/10/2010 12:53 PM CDT) athologist Signature BB BLOOD TYPE A POS No normal HP CONVERSION (BLOOD GROUP & range RH) Specimen (Source) Anatomical Collection Method Collection Time Re ceived Time Location / / Volume Laterality 09/10/2010 12:53 PM CDT Jackson Iqbal MD PN BLOOD BANK ORDERS Performing Organization Address [facility] Code Phon e Number HP CONVERSION documented in this encounter Visit Diagnoses Not on filedocumented in this encounter Care Teams Shell Press Operator Relationship Specialty Start Date End Date Olamide Rodney MD PCP - General 09/25/10 01/11/21 [address] [place] [address] documented as of this encounter
--- OUTSIDE RECORDS SUMMARY | 2022-01-29 17:52 | XMS_ITS | Encounter Summary ---
:1960 Author Organization [employer] Address [address] [place] [address] Care Team Providers Name Role Phone Olamide Rodney MD Primary Care Provider Reason for Visit Reason Comments Lab Questions Encounter Details Date Type Department Care Team Description 04/11/2011 Telephone [place] [facility] Malka Rodney MD Lab Questions Medicine [address] [place] [address] [place] [address] [phone] Social History Tobacco Use Types Packs/Day Years Used Date Smoking Tobacco: Never Alcohol Use Standard Drinks/Week Comments Yes 0 (1 standard drink = 0.6 oz pure alcoho l) mod Sex Assigned at Date Recorded Not on file documented as of this encounter Nursing Notes Salima Mendez - 04/11/2011 12:01 PM CDT Number given to vascular. Appointment scheduled with for diabetic follow up. Olamide Rodney MD - 04/11/2011 11:07 AM CDT Unfortunately she will always be considered a diabetic medically. the diagnosis never goes away and she will be on our diabetic list. Minimum f/u is [id number] in my medical opinion. should f/u and get A1c. Ok for vascular referral with vein mapping. Samantha Mckeon RN - 04/11/2011 9:42 AM CDT Primary Care Provider: Dr Rodney Message: Pt is 50 yr old woman calling about scheduling appt. Has 2 concerns: 1) diabetes--her last A1C was 5.6. She has lost 160# and since that wt lost her A1C has been under the 6. She does not think she is diabetic anymore. Can she now forego the diabetic check-ups?? 2) varicose vein concerns. Would like to go to specialist about her leg veins. Derm advised this.I called Vasc Surgery. there are 2 approaches: free screening or PCP can order venous U/S lower extremities. US needed before vasc consult. Requesting callback from Dr Rodney as to what she would suggest. If appt needed pt would like to be seen in next 2 wk. She is coming in to see Dr Madrid 7:30am 04-22-11. Is there appt time available around 8:30am? or is there another appt time at sooner date. Callback #: [phone] wk [facility]; if not there try # [phone] mornings or late afternoons LM: yes--once they get into her VM Ernst Lua - 04/11/2011 8:48 AM CDT Non -Symptom Message from [facility] Primary Care Provider: Olamide Rodney MD, MD Message: pt has some questions about labs and also wants to get a referral to a vein specialist. Please have nurse or Dr call. documented in this encounter Plan of Treatment Not on filedocumented as of this encounter Visit Diagnoses Not on filedocumented in this encounter Care Teams Research Interviewer Relationship Specialty Start Date End Date Olamide Rodney MD PCP - General 09/25/10 01/11/21 [address] [place] [address] documented as of this encounter
--- OUTSIDE RECORDS SUMMARY | 2022-01-29 17:52 | XMS_ITS | Encounter Summary ---
:1960 Author Organization [employer] Address [address] [place] [address] Care Team Providers Name Role Phone Olamide Rodney MD Primary Care Provider Encounter Details Date Type Department Care Team Description 08/31/2010 PN Conversion Only INSTRUMENT SPECIALIST [address] Ta Brink MD [address] [place] [address] [place] [address] (Wo rk) Social History Tobacco [...] Associated Diagnosis Comme nts SURGICAL PATHAMBROCIO Routine 08/31/2010 6:00 AM Re sults for this WICHOJANETTE FRONT DESK MANAGER procedure are i n the results section. documented in this encounter Results Pathology Report (08/31/2010 6:00 AM FRONT DESK MANAGER) Component Value Ref Test Analysis Performed At [facility] gist Range Method Time Signature Path: ? Final DERMATOPATHOLOGY REPO RT HP CONVERSION Pathology #: [id number] ? Date Obtained: 08/31/2010 ?Date Received: 08/31/2010 DIAGNOSIS: ? Skin, right lateral superior cheek, punch biopsy: ?- Actinic keratosis with follicular extension, pres ent at ?peripheral biopsy margins. ? COMMENT: Actinic keratosis extends into follicular in fundibulum in ? the superficial dermis (approximately 0.5 mm in great est depth) ? but does not approach the deep biopsy margin. Periphe ral margins ? are involved. There is no evidence of malignancy. ? ESTEBAN SCHERER ? (electronic signatur e) ? 09/04/2010 ??09:4 6 CLINICAL NOTES: ? AK or SCC ORGAN/TISSUE SITE ? Right lateral superior cheek GROSS DESCRIPTION: ? Received in a formalin-filled container labeled with the patient's ? name is a 2 x 2 x 2 mm punch biopsy of skin. ??The sp ecimen is ? submitted entirely in one cassette. ?JAGDISH MICROSCOPIC DESCRIPTION: ? Microscopic evaluation performed. ?End of Report Specimen Anatomical Collection Method Collection Time Receive d Time (Source) Location / / Volume Laterality SKIN PUNCH BIOPSY 08/31/2010 6:00 AM 08/21 6:00 SAMPLE / Unknown FRONT DESK MANAGER AM FRONT DESK MANAGER Ta Brink MD LAB_1 Performing Organization Address City/State/ZIP Code Phon e Number HP CONVERSION documented in this encounter Visit Diagnoses Not on filedocumented in this encounter Care Teams Farmworker Bulbs Relationship Specialty Start Date End Date Olamide Rodney MD PCP - General 09/25/10 01/11/21 [address] [place], [place] [id number] documented as of this encounter
--- OUTSIDE RECORDS SUMMARY | 2022-01-29 17:52 | XMS_ITS | Encounter Summary ---
:1960 Author Organization [employer] Address [address] [place] [address] Care Team Providers Name Role Phone Olamide Rodney MD Primary Care Provider Reason for Visit Reason Comments Other Encounter Details Date Type Department Care Team Description 10/16/2010 Telephone [facility] [address] Harjeet Solis, RN Other Gynecology Oncology [address] [place], [place] [address] Social History Tobacco Use Types Packs/Day Years Used Date Smoking Tobacco: Never Alcohol Use Standard Drinks/Week Comments Yes 0 (1 standard drink = 0.6 oz pure alcoho l) mod Sex Assigned at Date Recorded Not on file documented as of this encounter Progress Notes Harjeet Solis, RN - 10/16/2010 2:25 PM CDT Pt had scope hyst on 09/18/10. Pt is back to work, takes one or two Vicodin/day and would like one more refill. Denies fever, nausea, vomiting, bowel or bladder probs. Dr Iqbal contacted and gave verbal order to refill current Rx of Vicodin. [facility] and pt notified. Created on 16Oct2010 2:25pm by HARJEET SOLIS documented in this encounter Plan of Treatment Not on filedocumented as of this encounter Visit Diagnoses Not on filedocumented in this encounter Care Teams Entertainment Director Relationship Specialty Start Date End Date Olamide Rodney MD PCP - General 09/25/10 01/11/21 [address] [place] [address] documented as of this encounter
--- OUTSIDE RECORDS SUMMARY | 2022-01-29 17:52 | XMS_ITS | Encounter Summary ---
:1960 Author Organization [employer] Address [address] [place] [address] Care Team Providers Name Role Phone Olamide Rodney MD Primary Care Provider Reason for Visit Reason Comments Diabetes Encounter Details Date Type Department Care Team Description 04/23/2011 Office Visit [place] [facility] Olamide Rodney type 2, controlled (Primary Dx); Hayley Antoine MD Embolism and thrombosis of unspecified s ite; [address] [place] [address] Chronic insomnia; [place] [address] Blvd Congenital deficiency of other clotting factors; [phone] [place], [place] Varicose v eins; [address] Nondependent alcohol abuse; [phone] S/P gastric byp ass (Work) Social History Tobacco Use Types Packs/Day Years Used Date Smoking Tobacco: Never Alcohol Use Standard Drinks/Week Comments Yes 0 (1 standard drink = 0.6 oz pure alcoho l) mod Sex Assigned at Date Recorded Not on file documented as of this encounter Last Filed Vital Signs Vital Sign Reading Time Taken Comments Blood Pressure 128/78 04/23/2011 10:22 AM CDT Pulse 76 04/23/2011 10:22 AM CDT Temperature - - Respiratory Rate - - Oxygen Saturation - - Inhaled Oxygen Concentration - - Weight 95.3 kg (210 lb) 04/23/2011 10:22 AM CDT Height - - Body Mass Index 36.05 01/14/2011 6:12 PM CDT documented in this encounter Patient Instructions Patient InstructionsOlamide Rodney MD - 04/23/2011 10:55 AM CDT Please call the Pulmonary dept. at [phone] to schedule your appointment. Please call the Vascular Screening dept. at [phone] to schedule your appointment. Follow up with me in Jul 2011, sometime around 08/09. Have fasting labs ahead of time. Please call [phone] to schedule your lab appointment. documented in this encounter Progress Notes Olamide Rodney MD - 04/25/2011 7:49 AM CDT SUBJECTIVE: 50 y.o. -year-old female followup type 2 diabetes mellitus. Paty is upset because she feels she does not have diabetes. She had her gastric bypass in 2002. She was told she had diabetes prior to that. She does not know any details and we do not have the records in [facility] for my review. Her pre-bypass weight was 324. Her lowest post bypass weight was 162. Her current weight is 210 which shefeels is fairly stable. She can overeat again and does not feel full anymore. Her often overeats. She feels she is very healthy and prefers to followup once per year. Due to multiple medical problems, I would need to see her every 6 months at minimum and she does agree today. Her A1c is 5.6. It has slowly been increasing. She is not on any diabetic medications. She does complain of symptomatic varicosities. She carries a history of superficial thrombophlebitis, DVT, factor V Leiden. She would like to see vascular surgery. In addition she has chronic abdominal pain and insomnia. She is drinking 2-3 alcoholic beverages every night. She does not admit to more than this. She states this is to help her fall asleep for her chronic insomnia. She also was diagnosed with endometrial cancer and is getting followup for that. She does try to take her vitamins. Data: Lab Results Component Value Date/Time HGB A1C 5.6 03/18/2011 12:16 HGB A1C 5.4 08/08/2010 11:03 HGB A1C 4.9 10/02/2005 09:50 Lab Results Component Value Date/Time LDL Calculated 76 08/08/2010 11:03 Lab Results Component Value Date/Time Creatinine Serum 0.7 09/19/2010 05:29 Lab Results Component Value Date/Time Alanine Aminotransferase 23 09/10/2010 12:54 No results found for this basename: ck Lab Results Component Value Date/Time Sodium 139 09/19/2010 05:29 Potassium 4.7 09/19/2010 05:29 Chloride 103 09/19/2010 05:29 Bicarbonate 29 09/19/2010 05:29 Lab Results Component Value Date/Time Microalbumin Urine <6.0 08/08/2010 11:05 Allergies Allergen Reactions ??? Contrast Media LW [...] as needed. LW Addl Instr:Indicated for: Asthma Habits: reports that she has never smoked. [...] thrombophlebitis 04/23/2011 ??? S/P gastric bypass 04/23/2011 Social History: OBJECTIVE: Vital Signs: BP 128/78 Pulse 76 Wt 95.255 kg (210 lb) General: Obese white female Eyes: No [...] artery pulse bilaterally. Abdomen: The abdomen was obese, soft and nontender without guarding rebound or masses. Extremities: Full ROM without limitation, deformity or edema. 2/4 radial artery and dorsalis pedis pulses bilateral. Neurological: Normal monofilament test lower extremities bilaterally. Psychiatric: Normal mood and affect. ASSESSMENT: Encounter Diagnoses Name Primary? Diabetes type 2, controlled Yes ??? Deep Venous Thrombosis #*LW 4 ??? Chronic insomnia ??? Factor V Leiden #*LW 8 ??? Varicose veins ??? Nondependent alcohol abuse ??? S/P gastric bypass PLAN: 1. Discussed she does have a diagnosis of diabetes. In order to retract that, I would need to reviewall labs prior to gastric bypass. Minimal followup every 6 months for her because she has multiple medical problems and often has multiple concerns. I recommend she does not drink any alcohol. Due to her chronic insomnia she will see pulmonary sleep medicine. She does not feel she would be able to complete a sleep study prior to her visit with pulmonary. She'll have multiple labs as noted below. Schedule lower extremity vein mapping followed by a consultation with vascular surgery. Followup in 6 months. 2. Orders Placed This Encounter Procedure ??? Vascular Lab Extr Lower Venous Mapping Dae ??? Vitamin D (In house) ??? Vitamin B-12 ??? Thyroid Stimulating Hormone ??? Alanine Aminotransferase ??? Aspartate Aminotransferase ??? Albumin Only (Serum) ??? BUN ??? Calcium ??? Creatinine ??? Electrolytes (NA, K, CL, Bicarb) ??? Glucose ??? Magnesium ??? Phosphorus ??? Cholesterol Fraction-LDLD If Trig High ??? Ferritin ??? Hemoglobin A1C Glycosylated ??? Complete Blood Count W/Diff ??? Ambulatory referral to Pulmonology ??? Ambulatory referral to Vascular Surgery The patient was discharged ambulatory and in stable condition. *SH~DNS~SOAP documented in this encounter Plan of Treatment Not on filedocumented as of this encounter Procedures Procedure Name Priority Date/Time Associated Diagnosis Comme nts US LOWER Routine 05/01/2011 11:41 AM Results for this EXTREMITY BILAT [facility] procedure ar e in VENOUS REFLUX the results section. documented in this encounter Results US Lower Extremity Bilat Venous Reflux (05/01/2011 11:41 AM [facility]) Anatomical Region Laterality Modality Vascular, Lower Extremity, Leg Other Specimen (Source) Anatomical Location Collection Method / Collectio n Time Received Time / Laterality Volume Impressions 05/01/2011 4:45 PM [facility] Right greater saphenous vein incompeten ce at the saphenofemoral junction and from the mid to the distal calf. Incompetent right popliteal vein. No evidence of left lower extremity arun p or superficial venous incompetence. No evidence of right or left lower extr emity deep venous thrombosis. Narrative 05/01/2011 4:45 PM [facility] Indication: varicose veins A duplex ultrasound study using color f low was performed, to evaluate the right and left lower extrem ity veins for valvular incompetence. RIGHT LOWER EXTREMITY The greater saphenous vein measures 7.7 mm at the saphenofemoral junction. The saphenofemoral junction is incompetent. The greater saphenous vein is incompetent from the m id to the distal calf. The time of incompetence is greater than 500 milliseconds in length. The saphenopopliteal junction and lesse r saphenous vein are both competent. There is no evidence of incompetent per forator veins at any level. The greater and lesser saphenous veins are fully compressible with no evidence of thrombus. The popliteal vein is incompetent and fr ee of thrombus. The rest of the deep venous system is competent and free of thrombus. LEFT LOWER EXTREMITY The greater saphenous vein measures 4.7 mm at the saphenofemoral junction. The greater saphenous vein is competent along its length. The saphenopopliteal junction and lesse r saphenous vein are both competent. There is no evidence of incompetent per forator veins at any level. The greater and lesser saphenous veins are fully compressible with no evidence of thrombus. The deep venous system is competent and free of thrombus. FINAL Procedure Note Herrera Lockhart MD - 12/08/2015Formatt ing of this note might be different from the original. Indication: varicose veins A duplex ultrasound study using color f low was performed, to evaluate the right and left lower extrem ity veins for valvular incompetence. RIGHT LOWER EXTREMITY The greater saphenous vein measures 7.7 mm at the saphenofemoral junction. The saphenofemoral junction is incompetent. The greater saphenous vein is incompetent from the m id to the distal calf. The time of incompetence is greater than 500 milliseconds in length. The saphenopopliteal junction and lesse r saphenous vein are both competent. There is no evidence of incompetent per forator veins at any level. The greater and lesser saphenous veins are fully compressible with no evidence of thrombus. The popliteal vein is incompetent and fr ee of thrombus. The rest of the deep venous system is competent and free of thrombus. LEFT LOWER EXTREMITY The greater saphenous vein measures 4.7 mm at the saphenofemoral junction. The greater saphenous vein is competent along its length. The saphenopopliteal junction and lesse r saphenous vein are both competent. There is no evidence of incompetent per forator veins at any level. The greater and lesser saphenous veins are fully compressible with no evidence of thrombus. The deep venous system is competent and free of thrombus. FINAL IMPRESSION Right greater saphenous vein incompeten ce at the saphenofemoral junction and from the mid to the distal calf. Incompetent right popliteal vein. No evidence of left lower extremity arun p or superficial venous incompetence. No evidence of right or left lower extr emity deep venous thrombosis. Olamide Rodney MD RAD VASCULAR US documented in this encounter Visit Diagnoses Diagnosis Diabetes type 2, controlled ([facility]) - Prim mackenzie Type II or unspecified type diabetes rod litus without mention of complication, not stated as uncontrolled Embolism and thrombosis of unspecified s ite Chronic insomnia Insomnia, unspecified Congenital deficiency of other clotting factors Varicose veins Asymptomatic varicose veins Nondependent alcohol abuse Alcohol abuse, unspecified S/P gastric bypass Bariatric surgery status documented in this encounter Care Teams Film Waxer Relationship Specialty Start Date End Date Olamide Rodney MD PCP - General 09/25/10 01/11/21 [address] [place] [address] documented as of this encounter
--- OUTSIDE RECORDS SUMMARY | 2022-01-29 17:52 | XMS_ITS | Encounter Summary ---
:1960 Author Organization [employer] Address [address], [place] [address] Care Team Providers Name Role Phone Olamide Rodney MD Primary Care Provider Encounter Details Date Type Department Care Team Description 09/18/2010 - Hospital Encounter Episcopal Ino Iqbal MD [address] [facility] [address] [place], [place] [id number] 09/19/2010 3O-Iim-Hl[facility]-Oncology Juan Iqbal MD [address] [facility] [address] [place], [place] [phone] -Urology-Hospice [address] [place] [address] Social History Tobacco Use Types Packs/Day Years Used Date Smoking Tobacco: Never Alcohol Use Standard Drinks/Week Comments Yes 0 (1 standard drink = 0.6 oz pure alcoho l) mod Sex Assigned at Date Recorded Not on file documented as of this encounter Last Filed Vital Signs Vital Sign Reading Time Taken Comments Blood Pressure 114/66 09/19/2010 7:18 AM CDT Pulse 78 09/19/2010 7:18 AM CDT Temperature 36.6 ??C (97.9 ??F) 09/19/2010 7:18 AM CDT C: 97 .9 F Respiratory Rate 18 09/19/2010 7:18 AM CDT Oxygen Saturation 98% 09/19/2010 7:18 AM CDT Inhaled Oxygen Concentration - - Weight - - Height - - Body Mass Index - - documented in this encounter Medications at Time of Discharge Medication Sig Dispensed Refills Start Date End Date aspirin 81 MG tablet Take 2 tablets by 3 09/11/19 11 10/04/2010 mouth daily (every 24 hours). aspirin 81 MG tablet Take 3 tablets by 3 08/08/19 11 10/04/2010 mouth daily (every 24 hours). aspirin 81 MG tablet Take 3 tablets by 3 10/30/1910/04/2010 mouth daily (every 24 hours). aspirin 81 MG tablet Take 3 tablets by 90 10/03/1910/04/2010 mouth daily (every 24 hours). Calcium-Vitamin 3 times daily. 0 10/29/200604/21 D-Vitamin K ([facility] OR) cyanocobalamin ([facility] Take by mouth twice a 0 09/1004/21/2012 VITAMIN B12) 1000 MCG week. tablet enoxaparin 40 MG/0.4ML Inject 40 mg 28 0 09/19/2010 10/04/2010 SOLN injection subcutaneously daily (every 24 hours). LW Addl Instr:Indicated for: DVT Prophylaxis Multiple Take 2 tablets by 3 09/10/2010 011 Vitamins-Minerals mouth daily (every 24 (MULTIVITAMINS) CHEW hours). LW Comment:centrum pirbuterol (AKA MAXAIR Take 1-2 puffs by 200610/04/2010 AUTOHALER) 200 MCG/INH mouth every 4 hours as inhaler needed. LW Addl Instr:Indicated for: Asthma pirbuterol (AKA MAXAIR Take 1-2 puffs by 28 3 200510/04/2010 AUTOHALER) 200 MCG/INH mouth every 4 hours as inhaler needed. LW Addl Instr:Indicated for: Asthma pirbuterol (AKA MAXAIR Take 1-2 puffs by 14 200510/04/2010 AUTOHALER) 200 MCG/INH mouth every 4 hours as inhaler needed. LW Addl Instr:Indicated for: Asthma unknown medication Indications: PN: 0 09/17/2010 10/04/2010 unknown medication Indications: PN: 0 09/10/2010 10/04/2010 unknown medication Indications: PN: 0 09/03/2010 10/04/2010 unknown medication Indications: PN: 0 08/08/2010 10/04/2010 unknown medication Indications: PN: 0 03/13/2008 10/04/2010 unknown medication Indications: PN: 0 01/22/2008 10/04/2010 unknown medication Indications: PN: 0 08/07/2007 10/04/2010 unknown medication Indications: PN: 0 01/21/2007 10/04/2010 unknown medication Indications: PN: 0 07/31/2006 10/04/2010 unknown medication Indications: PN: 0 02/26/2006 10/04/2010 unknown medication Indications: PN: 0 01/19/2006 10/04/2010 unknown medication Indications: PN: 0 10/02/2005 10/04/2010 ASPIRIN EC 81MG ORAL 3 TABLETS DAILY 0 11/08/2003 04/02/2016 TABS CALCIUM + D 600-200 3 TABLET DAILY 0 03/24/2003 1 MG-IU OR TABS CYANOCOBALAMIN 1000 MCG 1 every other day 0 99 10/1904/02/2016 SL SUBL FLINTSTONES PLUS IRON 2 per day 0 03/24/200304/2016 OR CHEW PIRBUTEROL ACETATE use as directed prn 1 0 09/25/19 05 04/02/2016 (MAXAIR AUTOHALER) 200MCG/INH INHALERIndications: Unspecified asthma(493.90) ([facility]) documented as of this encounter Procedure Notes Juan Iqbal MD - 09/18/2010 12:01 AM CDT OR Surgeon signed by Juan Iqbal MD at 10/09/10 1702 Author: Juan Iqbal MD Service: (none) Author Type: Physician Filed: 10/23/10 1539 Note Time: 09/28/10 1159 Status: Signed Porcelain Enamel Sprayer: Juan Iqbal MD (Physician) NAME: PATY LLAMAS MR#: [id number] ACCT: [id number] DICTATING CLINICIAN: Juan Iqbal MD CONFIRM #: [id number] LOC: 256 OPERATIVE REPORT Corrected Copy 10/02/10 dmf/D DATE OF VISIT: 09/18/2010 : 1960 PREOPERATIVE DIAGNOSIS: Endometrial carcinoma. POSTOPERATIVE DIAGNOSIS: Endometrial carcinoma. PROCEDURE: Total laparoscopic hysterectomy and bilateral salpingo-oophorectomy and pelvic and periaortic lymph node dissection. ATTENDING PHYSICIAN: Juan Iqbal MD ASSISTING: Dr. Cali Almendarez ANESTHESIA: GED. COMPLICATIONS: None. TUBES AND DRAINS: Include Mckenna. ESTIMATED BLOOD LOSS: Approximately 100 cc. OPERATIVE REPORT: After obtaining informed consent, the patient was brought to the operating room where she was placed in the supine position. She underwent the induction of general anesthesia. She was placed in the dorsal lithotomy position and prepped and draped in the usual sterile fashion, including placement of sterile Mckenna. At this point, the umbilicus was clasped, everted, incised and the Veress needle was inserted. The abdomen was insufflated to a pressure of approximately 13 mmHg. Additional ports were then placed in the right and left lower quadrants and additionally in the upper left abdomen for the purposes of completing the dissection. These were placed under direct visualization. Washings were obtained. Fallopian tubes were then cauterized and a CARMINE uterine manipulator was placed. At this point, attention was first turned to the periaortic lymph nodes, which were dissected in the usual fashion, identifying the ureters initially, and transecting the peritoneum between the ureters across the aortic bifurcation and superiorly to the base of the JAMISON. Lymph nodes were then sampled from the aortic and vena caval area on both sides. These incisions were then carried over the ureter down to the infundibulopelvic ligament, which was elevated and transected. The iliac vessels were then evaluated from the mid portion of the psoas to the obturator nerve, which was identified on both sides. Specimens were all sent intact. At this point, the hysterectomy was completed in the usual fashion by transecting the round ligaments and the bladder flap. The uterine arteries were skeletonized using cautery and the uterus was amputated at the base. The specimen was delivered and sent to Pathology. At this point, the vaginal cuff was closed, after reinserting the vaginal balloon without the CARMINE device. The cuff was closed using 2-0 Vicryl suture in an interrupted series of [id number]. At this point, hemostasis was assured, and the larger ports were closed using the Matias-Katharina instrument. The incisions were then infiltrated with Marcaine and ports were removed under direct visualization, and the patient was placed back in the supine position. She was extubated in the operating room without difficulty and brought to the recovery room in stable condition. 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.0 Secondary: PRIMARY HYPERCOAGULABLE STATE 289.81 ASTHMA, UNSPECIFIED 493.90 OTHER ACQUIRED ABSENCE OF ORGAN V45.79 PERSONAL HX,VENOUS THROMBOSIS & EMBOLISM V12.51 BARIATRIC SURGERY STATUS V45.86 LONG-TERM (CURRENT) USE OF ASPIRIN V58.66 OBESITY, UNSPECIFIED 278.00 BODY MASS INDEX 36.0-36.9, ADULT V85.36 PROCEDURES Provider1 Date Principal: LAPAROSCOPICALLY ASSISTE JUAN IQBAL [id number] 68.51 Provider2: Provider3: SHANNON BLUM Secondary: LAPAROSCOPIC REMOVAL;BOT JUAN IQBAL [id number] 65.63 Provider2: Provider3: REGIONAL LYMPH NODE EXC JUAN IQBAL [id number] 40.3 Provider2: Provider3: documented in this encounter Plan of Treatment Not on filedocumented as of this encounter Procedures Procedure Name Priority Date/Time Associated Comments Diagnosis COMPLETE BLOOD Routine 09/19/2010 5:29 AM Results for this COUNT-W/DIFF CDT procedure are i n the results section. BASIC METABOLIC PANEL Routine 09/19/2010 5:29 AM Results for this CDT procedure are i n the results section. DIFFERENTIAL Routine 09/19/2010 5:29 AM Results f or this CDT procedure are i n the results section. SURGICAL PATH PARK Routine 09/18/2010 7:00 AM Re sults for this NICOLLET CDT procedure are i n the results section. NGYN CYTO FINAL Routine 09/18/2010 7:00 AM Result s for this REPORT CDT procedure are i n the results section. MRSA CULTURE Routine 09/18/2010 6:57 AM Results f or this CDT procedure are i n the results section. BEDSIDE GLUCOSE Routine 09/18/2010 6:27 AM Result s for this MONITOR POCT CDT procedure are i n the results section. TYPE AND SCREEN Routine 09/18/2010 6:05 AM Result s for this CDT procedure are i n the results section. HEMOGLOBIN, BLOOD Routine 09/18/2010 6:05 AM Resu lts for this CDT procedure are i n the results section. POTASSIUM Routine 09/18/2010 6:05 AM Results f or this CDT procedure are i n the results section. documented in this encounter Results Differential (09/19/2010 5:29 AM CDT) Analysis Performed At Patho logist Time Signature Absolute 5.6 1.8 - 8.0 HP CONVERSION Neutrophils k/cmm Absolute 2.2 1.1 - 4.0 HP CONVERSION Lymphocytes k/cmm Absolute 0.8 0.2 - 0.8 HP CONVERSION Monocytes k/cmm Absolute 0.0 0.0 - 0.5 HP CONVERSION Eosinophils k/cmm Absolute 0.0 0.0 - 0.2 HP CONVERSION Basophils k/cmm Immature 0.2 0.0 - 0.5 HP CONVERSION Granulocytes % Specimen (Source) Anatomical Collection Method Collection Time Re ceived Time Location / / Volume Laterality 09/19/2010 5:29 AM CDT Juan Iqbal MD LAB_1 Performing Organization Address City/State/ZIP Code Phon e Number HP CONVERSION (ABNORMAL) Basic Metabolic Panel (09/19/2010 5:29 AM CDT) Patholo gist Method Time Signature Creatinine Serum 0.7 0.4 - 1.3 HP CONVERSION mg/dL Lab Glucose 126 (H) 60 - 100 HP CONVERSION mg/dL Bicarbonate 29 23 - 33 HP CONVERSION mmol/L Chloride 103 98 - 110 HP CONVERSION mEq/L Potassium 4.7 3.5 - 5.2 HP CONVERSION mEq/L Sodium 139 137 - 147 HP CONVERSION mEq/L Blood Urea 7 5 - 26 HP CONVERSION Nitrogen mg/dL Calcium 8.7 8.5 - 10.5 HP CONVERSION mg/dL Est GFR >60 >60 HP CONVERSION Am mL/min/1.7 Est GFR Non-Afr >60 >60 HP CONVERSION Am mL/min/1.7 Comment: Normal>60, moderate decrease 30 - 59, se viktoriya decrease 15 - 29, renal failure <15 mL/min/1.73 m2 NOTE: ??Choose the eGFR result above mary ropriate for the race of the patient. Specimen (Source) Anatomical Collection Method Collection Time Re ceived Time Location / / Volume Laterality 09/19/2010 5:29 AM CDT Juan Iqbal MD LAB_1 Performing Organization Address City/[facility] Code Phon e Number HP CONVERSION (ABNORMAL) Hemogram/Plts/Diff (09/19/2010 5:29 AM CDT) [facility] Method Time Signature White Blood Cell 8.6 3.8 - HP CONVERSION Count 11.0 k/cmm Red Blood Cell 3.65 (L) 3.70 - HP CONVERSION Count 5.20 m/cmm Hemoglobin 12.7 11.8 - HP CONVERSION 15.5 g/dL Hematocrit 37.5 35.0 - HP CONVERSION 46.0 % Mean Corpuscular 102.7 (H) 80.0 - HP CONVERSION Volume 100.0 fL RDW 12.7 11.0 - HP CONVERSION 15.0 % Platelet Count 176 140 - 450 HP CONVERSION k/cmm Specimen (Source) Anatomical Collection Method Collection Time Re ceived Time Location / / Volume Laterality 09/19/2010 5:29 AM CDT Juan Iqbal MD LAB_1 Performing Organization Address [facility] Phon e Number HP CONVERSION N/O LAB NGYN CYTO FINAL REPORT (09/18/2010 7:00 AM CDT) [facility] Method Time Signature Path: ? Final CYTOLOGY REPORT HP CONVERSION Pathology #: [id number] ?? Date Obtained: 09/18/2010 ?Date Received: 09/18/2010 DIAGNOSIS: Pelvic washing: - Negative for malignant cells. ?Elina WELSH ? (electronic signatur e) ? 09/19/2010 ??11:1 6 CLINICAL NOTES: Endometrial cancer ORGAN/TISSUE SITE: Pelvic washing GROSS DESCRIPTION: The specimen designated pelvic washing consists of 70 ml pa le yellow fluid. Three cytospins, one Mobley's, and one cell block ar e prepared from this specimen and are submitted for cytologic examinat ion. MICROSCOPIC DESCRIPTION: The microscopic examination substantiates the diagnosis cit ed. CPT Codes: ?73485 x 1 ??92457 x 1 ?End of Report Specimen Anatomical Collection Method Collection Time Receive d Time (Source) Location / / Volume Laterality Pelvis: 09/18/2010 7:00 AM 1 7:00 CDT AM CDT Juan Iqbal MD LAB_1 Performing Organization Address City/State/ZIP Code Phon e Number HP CONVERSION Pathology Report (09/18/2010 7:00 AM CDT) [facility] gist Method Time Signature Path: ?Final SURGICAL PATHOLOGY REP ORT HP CONVERSION Pathology #: [id number] ? Date Obtained: 09/18/2010 ?Date Received: 09/18/2010 DIAGNOSIS: ??A-D)Radical hysterectomy specimen, pelvic and philip-aortic lymph node ? dissection: ?- Endometrioid adenocarcinoma, grade 2 of 3, see synop tic report. ENDOMETRIUM: Hysterectomy, With or Without Other Organs or T issues SPECIMEN: ??Uterine corpus, cervix, right ovary, left ovary , right ? fallopian tube, left fallopian tube PROCEDURE: Radical hysterectomy LYMPH NODE SAMPLING: Performed: Pelvic lymph nodes, para-ao rtic lymph ?nodes SPECIMEN INTEGRITY: ??Intact hysterectomy specimen TUMOR SIZE: ??Greatest dimension: ? 6.5 cm ??Additional dimensions: ?2.0 x 0.6 cm HISTOLOGIC TYPE: ? Endometrioid adenocarcin samantha, NOS HISTOLOGIC GRADE: ?FIGO grade 2 MYOMETRIAL INVASION: ? Present ?Depth of invasi on: 3 mm ?Myometrial thic kness: 21 mm INVOLVEMENT OF CERVIX: ? Not involved EXTENT OF INVOLVEMENT OF OTHER ORGANS: Right ovary: Not inv olved ?Left ovary: Not involved ? Right fallopian tube: Not involved ? Left fallopian tube: Not involved PERITONEAL ASCITIC FLUID: ?Negative for malignancy/norm al/benign MARGINS: ? Uninvolved by invasi ve carcinoma LYMPH-VASCULAR INVASION: ? Not identified PATHOLOGIC STAGING PRIMARY TUMOR: ? pT1a[IA]: Tumor limited to endometrium or invades ?less than one-half of the myom etrium REGIONAL LYMPH NODES: pN0: No regional lymph node metastasi s Pelvic lymph nodes: ??Number examined: ? 9 ??Number involved: ? 0 Para-aortic lymph nodes: ??Number examined: ? 9 ??Number involved: ? 0 DISTANT METASTASIS: ? Not applicable MCSS: I ?DYANA BUTLER MD ? (electronic signatur e) ? 09/19/2010 ??14:3 2 CLINICAL NOTES: Endometrial CA ORGAN/TISSUE SITE: Periaortic lymph nodes/Right pelvic lymph nodes/Left pelvic lymph nodes/Uterus, cervix, tubes and ovaries GROSS DESCRIPTION: A) Received in formalin labeled periaortic lymph nodes and consists of ?? a 4.8 x 4.0 x 2.0 cm aggregate of adipose tissue contain ing multiple ?? lao-pink lymph nodes ranging from 0.2 cm to 1.3 cm in gr eatest ?? dimension. ??The nodes are entirely submitted in blocks A1 through ?? A3. B) Received in formalin labeled right pelvic lymph nodes an d consists ?? of a 4.5 x 3.5 x 2.0 cm aggregate of adipose tissue. ??N o lymph nodes ?? are grossly identified. ??The tissue is entirely submitt ed in blocks ?? B1 through B4. C) Received in formalin labeled left pelvic lymph nodes and consists ?? of a 5 x 2.8 x 2.0 cm aggregate of adipose tissue contai ethan ?? multiple lao-pink lymph nodes averaging 0.[address] ?? dimension. ??The nodes are entirely submitted in blocks C1 through ?? C3. D) The specimen is received fresh for frozen section labele d uterus, ?? tubes, and ovaries and consists of a hysterectomy specim en with ?? bilaterally attached fallopian tubes and ovaries with a total weight ?? of 94 grams. ??The uterus measures 5.5 x 4.8 x 4.5 cm an d has a ?? smooth lao-pink serosal surface. ??The ectocervix is lao -pink, ?? focally hyperemic and glistening with a diameter of 2.6 cm. ??The ?? uterus is opened to reveal lao-pink polypoid mass involv ing the ?? majority of the endometrial cavity measuring 6.5 x 2.8 x 0.6 cm. ?? The tumor grossly appears minimally invasive. ??A repres entative ?? section is submitted for frozen section. ??The myometriu m is lao-pink ?? with an average thickness of 2.1 cm and has a thickened, trabecular ?? appearance. ??The majority of the endometrium is submitt ed for ?? permanents. ??The right adnexa consists of a 2.0 x 1.5 x 0.8 cm lao-pin k, ?? convoluted ovary with an attached fallopian tube measuri ng 6.0 cm in ?? length by 0.4 cm in diameter. ??Cross sections through b oth the tube ?? and ovary are grossly unremarkable. ??The left adnexa consists of a 1.8 x 1.3 x 0.8 cm lao-pink , convoluted ?? ovary with an attached fallopian tube measuring 6.5 cm i n length by ?? 0.4 cm in diameter. ??Cross sections reveal a lao-pink, stellate ?? lumen. ??[employer] Assistant sections are submitted. ??Summary of sections: D1, anterior endomyometrium, frozen section; D2, ?? right fallopian tube and ovary; D3, left fallopian tube and ovary; ?? D4, anterior cervix; D5, anterior lower uterine segment; D6 through ?? D9, anterior endometrium; D10 through D12, posterior end ometrium; ?? D13, posterior lower uterine segment; D14, posterior cer vix (AMW). ?WEYAL IOC/FROZEN: D) (Uterus): Endometrial adenocarcinoma Grade 1, minimally invasive. ?GARCIA MICROSCOPIC DESCRIPTION: A-D)The microscopic examination substantiates the diagnoses cited. CPT Codes: ?42456 x 1 ??69389 x 3 ??33056 x 1 ?End of Report Specimen Anatomical Collection Method Collection Time Receive d Time (Source) Location / / Volume Laterality UTERINE STRUCTURE 09/18/2010 7:00 AM 08/22 7:00 / Unknown CDT AM CDT LYMPH NODE BIOPSY 09/18/2010 7:00 AM 08/22 7:00 SAMPLE / Unknown CDT AM CDT LYMPH NODE BIOPSY 09/18/2010 7:00 AM 08/22 7:00 SAMPLE / Unknown CDT AM CDT UTERINE STRUCTURE 09/18/2010 7:00 AM 08/22 7:00 / Unknown CDT AM CDT Juan Iqbal MD LAB_1 Performing Organization Address City/State/ZIP Code Phon e Number HP CONVERSION MRSA Culture (09/18/2010 6:57 AM CDT) Analysis Performed At Patho logist Time Signature Culture Mrsa SEE TEXT HP CONVERSION Screen Comment: CMRSA Culture MRSA Screen ? ORDERED BY: MAGGIE JIMENEZ SOURCE: Nelly ?COLLECTED: ??09/18/10 06:57 ? PLATED: ? 09/18/10 09:06 Culture MRSA Screen ?FINAL ? 09/19/10 19:36 No Methicillin resistant Staphlyococcus aureus isolated. Specimen (Source) Anatomical Collection Method Collection Time Re ceived Time Location / / Volume Laterality 09/18/2010 6:57 AM CDT Maggie Jimenez MD LAB_1 Performing Organization Address City/[facility]/ZIP Code Phon e Number HP CONVERSION BEDSIDE GLUCOSE MONITOR (09/18/2010 6:27 AM CDT) athologist Signature Bedside Blood 93 mg/dL HP CONVERSION Glucose Test Specimen (Source) Anatomical Collection Method Collection Time Re ceived Time Location / / Volume Laterality 09/18/2010 6:27 AM CDT Juan Iqbal MD LAB_1 Performing Organization Address City/[facility] Phon e Number HP CONVERSION TYPE AND SCREEN (09/18/2010 6:05 AM CDT) athologist Signature BB BLOOD TYPE A POS No normal HP CONVERSION (BLOOD GROUP & range RH) N/O BB NEG No normal HP CONVERSION ANTIBODY range SCREEN Specimen (Source) Anatomical Collection Method Collection Time Re ceived Time Location / / Volume Laterality 09/18/2010 6:05 AM CDT Juan Iqbal MD PN BLOOD BANK ORDERS Performing Organization Address [facility] Phon e Number HP CONVERSION Hemoglobin, Blood (09/18/2010 6:05 AM CDT) athologist Signature Hemoglobin 15.3 11.8 - 15.5 HP CONVERSION g/dL Specimen (Source) Anatomical Collection Method Collection Time Re ceived Time Location / / Volume Laterality 09/18/2010 6:05 AM CDT Juan Iqbal MD LAB_1 Performing Organization Address City/[facility] Code Phon e Number HP CONVERSION Potassium (09/18/2010 6:05 AM CDT) athologist Signature Potassium 3.8 3.5 - 5.2 HP CONVERSION mEq/L Specimen (Source) Anatomical Collection Method Collection Time Re ceived Time Location / / Volume Laterality 09/18/2010 6:05 AM CDT Juan Iqbal MD LAB_1 Performing Organization Address [facility] Phon e Number HP CONVERSION documented in this encounter Visit Diagnoses Not on filedocumented in this encounter Care Teams Senior Major Gifts Officer Relationship Specialty Start Date End Date Olamide Rodney MD PCP - General 08/08/10 09/24/10 [address] [place] [address] documented as of this encounter
--- OUTSIDE RECORDS SUMMARY | 2022-01-29 17:52 | XMS_ITS | Encounter Summary ---
:1960 Author Organization [employer] Address [address] [place] [address] Care Team Providers Name Role Phone Olamide Rodney MD Primary Care Provider Encounter Details Date Type Department Care Team Description 09/10/2010 Office Visit Specialty [facility] 3931 Wilbur Iqbal MD Gynecology Oncology 6500 [facility] 3931 [facility] 5th [place] [address] [phone] Social History Tobacco Use Types Packs/Day Years Used Date Smoking Tobacco: Never Alcohol Use Standard Drinks/Week Comments Yes 0 (1 standard drink = 0.6 oz pure alcoho l) mod Sex Assigned at Date Recorded Not on file documented as of this encounter Last Filed Vital Signs Vital Sign Reading Time Taken Comments Blood Pressure 128/84 09/10/2010 10:59 AM CDT Pulse - - Temperature - - Respiratory Rate - - Oxygen Saturation - - Inhaled Oxygen Concentration - - Weight 97.1 kg (213 lb 15.7 oz) 09/10/2010 10:59 AM C: 97.1kg CDT Height 163.8 cm (5' 4.5) 09/10/2010 10:59 AM C: 163.8c m CDT Body Mass Index 36.16 09/10/2010 10:59 AM CDT documented in this encounter Progress Notes Jackson Iqbal MD - 09/10/2010 12:01 AM CDT Progress Notes signed by Jackson Iqbal MD at 10/09/10 1732 Author: Jackson Iqbal MD Service: (none) Author Type: Physician Filed: 10/23/10 1539 Note Time: 09/10/10 0001 Status: Signed Roof Bolter Helper: Jackson Iqbal MD (Physician) NAME: PATY LLAMAS MR#: [id number] ACCT: [id number] VISIT: [id number] DICTATING CLINICIAN: Jackson Iqbal MD CONFIRM #: [id number] LOC: 256 CLINIC PROGRESS NOTE DATE OF VISIT: 09/10/2010 : 1960 This is a note to followup on Paty Llamas who is a 49-year-old female referred by Dr. Jeremy Brownlee for the diagnosis of endometrial cancer. Her history of present illness is in his note of September 03, 2010 but he was originally seen by Dr. Olamide Rodney in July of 2010 with some concern about routine health maintenance and a possibility of spotting. Patient has a extensive and interesting past medical history notable for among other things gastric bypass and deep venous thrombosis of the lower extremity while on control and a factor V Leiden mutation. Over the course of the evaluation she did undergo a pelvic ultrasound that showed an ill-defined endometrium measuring approximately 11-12 mm. As the patient has had some perimenopausal symptoms she subsequently was referred to Dr. Brownlee who promptly provided an endometrial biopsy. 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 She is not currently bleeding and in fact has very few complaints at present with the exception of longstanding lingering discomforts regarding her incision from her panniculectomy following bariatric surgery. She gained a significant amount of weight since that time. REVIEW OF SYSTEMS: Otherwise negative for fever, chills, nausea, vomiting, constipation, diarrhea or dysuria. No neurologic, psychiatric, HEENT, dermatologic, ophthalmologic, musculoskeletal, hematologic, lymphatic, cardiovascular, pulmonary, GI or complaints. PAST MEDICAL HISTORY: Notable for asthma. She has not had any hospitalizations or intubations but has required steroids in the past. This has not been a recent problem. Diabetes which she has pre-gastric bypass but resolved after gastric bypass and transient hypertension which also resolved after gastric bypass. PAST SURGICAL HISTORY: Gastric bypass by Nino-en-Y approximately 8 years ago through an open incision. She had a cholecystectomy performed at that time and radial keratotomy of her eyes. PAST OBSTETRIC HISTORY: No attempts. PAST RUBBER TUBING SPLICER HISTORY: No abnormal Pap smears prior to this but did have some endometrial cells on her most recent 1 suggesting endometrial pathology. She is perimenopausal and has not taken hormones. ALLERGIES: None. MEDICATIONS: Aspirin which she takes for her factor V Leiden, Maxair, Viactiv, multivitamins, B12 and Topicort cream. FAMILY HISTORY: Negative for breast, ovarian or uterine carcinoma. She has a mother with colon carcinoma and a maternal aunt with colon carcinoma both diagnosed approximately at age 50. She has multiple siblings who are well and she has not discussed colon screening with them. She has had 2 colonoscopies by age 49 including the last 1 in February which was negative by her report. She had a mammogram less than a year ago. PHYSICAL EXAMINATION: VITAL SIGNS: She is 5 feet 5-1/2 inches tall, weight is 214 pounds, blood pressure is 128/84 and pulse is approximately 80. NEUROLOGIC: She is alert and oriented, moves all extremities without difficulty. PSYCHIATRIC: Pleasant, interactive and appropriate in conversation. HEENT: Examination is within normal limits. NECK: Lymph node survey including anterior cervical, supraclavicular, axillary and groin nodes within normal limits. HEART: Regular rate and rhythm. LUNGS: Clear to auscultation. ABDOMEN: Soft, nontender, nondistended. Her previous incisions have healed nicely. There is no clear areas of abnormality that I can palpate or appreciate grossly in the areas that she has discomfort on the lateral aspects of her panniculectomy incision. LOWER EXTREMITIES: Symmetric without significant edema. PELVIC: Examination shows the uterus to be small although it is difficult to assess the absolute size given the patient's habitus and the rectal examination is not informative but certainly there does not appear to be gross evidence of disease. The cervix itself looks normal and, again, the parametrium and upper vagina look normal. I have discussed with the patient the findings and we have discussed the importance of surgical intervention especially in light of her history of DVT as well as known factor V Leiden mutation. Based on this I have recommended laparoscopy if possible but given the patient's personal history of clotting and extensive surgical history she understands that ultimately prolonged surgery does have some risks and should there be technical difficulties then open surgery may be required. We discussed the purposes and benefits of staging and she is tentatively scheduled for staging. I have stressed the importance of early ambulation with her given her clotting history and that we will be using Arixtra on a month-long basis after surgery which she does appear to be amenable for although she is overtly displeased by the idea, given previous difficulties with subcutaneous heparin. At the conclusion of this, I had answered all of her questions, as well as those of her , to the best of my ability and believe they have a good understanding of the risks, benefits, and alternatives to surgery. The total time for this visit was approximately 60 minutes of which approximately 40 minutes was spent in counseling regarding treatment options, the relative risks and benefits of therapy, and the plan for mitigating those risks so much as possible. Will begin the preoperative process today. CC: [place] [address] [place] [address] ANIA:DUANE C: CONFIRM #: [id number] documented in this encounter Plan of Treatment Not on filedocumented as of this encounter Visit Diagnoses Not on filedocumented in this encounter Care Teams Shearing Shed Worker Relationship Specialty Start Date End Date Olamide Rodney MD PCP - General 09/25/10 01/11/21 [address] [place] [address] documented as of this encounter
--- OUTSIDE RECORDS SUMMARY | 2022-01-29 17:52 | XMS_ITS | Encounter Summary ---
:1960 Author Organization [employer] Address [address] [place] [address] Care Team Providers Name Role Phone Olamide Rodney MD Primary Care Provider Reason for Visit Reason Comments Other Encounter Details Date Type Department Care Team Description 09/24/2010 Telephone Specialty Center 3931 Harjeet Solis, RN Other Gynecology Oncology 39[address] [place] [address] Social History Tobacco Use Types Packs/Day Years Used Date Smoking Tobacco: Never Alcohol Use Standard Drinks/Week Comments Yes 0 (1 standard drink = 0.6 oz pure alcoho l) mod Sex Assigned at Date Recorded Not on file documented as of this encounter Progress Notes Harjeet Solis, RN - 09/24/2010 3:18 PM CDT Workability statement completed, faxed to employer and copy to [facility]. Created on [id number] 3:18pm by HARJEET SOLIS documented in this encounter Plan of Treatment Not on filedocumented as of this encounter Visit Diagnoses Not on filedocumented in this encounter Care Teams Teenage Program Director Relationship Specialty Start Date End Date Olamide Rodney MD PCP - General 09/25/10 01/11/21 [address] [place] [address] documented as of this encounter
--- OUTSIDE RECORDS SUMMARY | 2022-01-29 17:52 | XMS_ITS | Encounter Summary ---
:1960 Author Organization [employer] Address [address] [place] [address] Care Team Providers Name Role Phone Olamide Rodney MD Primary Care Provider Reason for Visit Reason Comments Other Encounter Details Date Type Department Care Team Description 09/20/2010 Telephone [facility] 3931 Harjeet Solis, RN Other Gynecology Oncology 39[address] [place], [place] [address] Social History Tobacco Use Types Packs/Day Years Used Date Smoking Tobacco: Never Alcohol Use Standard Drinks/Week Comments Yes 0 (1 standard drink = 0.6 oz pure alcoho l) mod Sex Assigned at Date Recorded Not on file documented as of this encounter Progress Notes Harjeet Solis, RN - 09/20/2010 11:38 AM CDT Pt had surgery on 09/18/10 and was contacted to see how she was doing. Pt states she is feeling well and is only in pain when she is up moving around. Pt is taking Percocet before she is active and it really is helping. Pt is wondering if she could get more pain med as she will run out over the weekend if she continues taking it like she does. Pt informed that Percocet would require a written RX and asked if she would try Vicodin. Pt states she feels this would be ok because she hopes the pain is better by the weekend. Per Dr Wen Huitron, gynonc rn [facility], pt may have Vicodin 5/500mg, po, q4hrs, prn pain, 30tabs. Pt informed and Rx was called to [facility]. Created on 20Sep2010 11:38am by HARJEET SOLIS documented in this encounter Plan of Treatment Not on filedocumented as of this encounter Visit Diagnoses Not on filedocumented in this encounter Care Teams Metal Temperer Relationship Specialty Start Date End Date Olamide Rodney MD PCP - General 09/25/10 01/11/21 [address] [place], [place] [address] documented as of this encounter
--- OUTSIDE RECORDS SUMMARY | 2022-01-29 17:52 | XMS_ITS | Encounter Summary ---
:1960 Author Organization [employer] Address [address] [address] Care Team Providers Name Role Phone Olamide Rodney MD Primary Care Provider Reason for Visit Reason Comments Abnormal Pap Smear Encounter Details Date Type Department Care Team Description 07/26/2011 Office Visit [facility] Jeremy Madrid Hx of can cer of endometrium; Obstetrics/Gynecolog MD Joni Endometrial cancer y [address] [facility] [address] [place] [address] [place] [address] [phone] Social History Tobacco Use Types Packs/Day Years Used Date Smoking Tobacco: Never Alcohol Use Standard Drinks/Week Comments Yes 0 (1 standard drink = 0.6 oz pure alcoho l) mod Sex Assigned at Date Recorded Not on file documented as of this encounter Last Filed Vital Signs Vital Sign Reading Time Taken Comments Blood Pressure 128/80 07/26/2011 8:08 AM SCRAP METAL COLLECTOR Pulse 72 07/26/2011 8:08 AM SCRAP METAL COLLECTOR Temperature - - Respiratory Rate - - Oxygen Saturation - - Inhaled Oxygen Concentration - - Weight 94.8 kg (209 lb) 07/26/2011 8:07 AM SCRAP METAL COLLECTOR Height - - Body Mass Index 35.87 01/14/2011 6:12 PM CDT documented in this encounter Progress Notes Jeremy Madrid - 07/26/2011 8:28 AM CST 50 yo here for follow up of Stage 1A, grade 2 endometrial CA Surgical staging with Dr. Iqbal in 12/2010 No problems or complaints. Denies vaginal bleeding or pelvic pain. Exam: Abdomen soft non tender w/o masses or organomegaly EGBUS normal Vagina neg, cuff intact w/o lesions. Pap smear of vaginal apex obtained Bimanual no cuff tenderness or nodularity A/P: Hx of Stage 1A, grade 2 endometrial CA No evidence of recurrence, Pap obtained RTC 4 months documented in this encounter Plan of Treatment Not on filedocumented as of this encounter Procedures Procedure Name Priority Date/Time Associated Diagnosis Comme nts ANATOMICAL PATH Routine 07/26/2011 8:16 AM Result s for this LIQUID BASED SCRAP METAL COLLECTOR procedure are i n the results section. PAP SMEAR DIAGNOSTIC Routine 07/26/2011 8:16 AM Endometrial ca ncer Results for this SCRAP METAL COLLECTOR ([facility]C) procedure are i n the results section. documented in this encounter Results Pap Smear (07/26/2011 8:16 AM SCRAP METAL COLLECTOR) Specimen (Source) Anatomical Collection Method Collection Time Re ceived Time Location / / Volume Laterality 07/26/2011 8:16 AM SCRAP METAL COLLECTOR Narrative HP CONVERSION - 08/01/2011 4:17 PM SCRAP METAL COLLECTOR Final GYNECOLOGICAL CYTOLOGY REPORT Pathology #: [id number] ?Date Obtained: 07/26/2011 ? Date Received: 07/29/2011 INTERPRETATION/RESULTS: Negative for Intraepithelial Lesion or M alignancy SPECIMEN ADEQUACY: Satisfactory for Evaluation. ??No endoce rvical cells/transformation zone component present; post hysterectomy Verified on 08/01/2011 ??by VERENICE Jimenez MD (electronic signature) CLINICAL NOTES: ? LMP: not stated, Hysterectomy, History of CA: endomet 08/31 surg. LIQUID BASED PAP SMEAR SPECIMEN [...] Jeremy Madrid MD LAB_1 Performing Organization Address City/[facility]/ZIP Code Phon e Number HP CONVERSION Pap Smear Diagnostic (07/26/2011 8:16 AM SCRAP METAL COLLECTOR) [facility] gist Method Time Signature PAP Diagnostic Collected HP CONVERSION Specimen Anatomical Collection Method Collection Time Receive d Time (Source) Location / / Volume Laterality 07/26/2011 8:16 AM 2 6:01 SCRAP METAL COLLECTOR AM SCRAP METAL COLLECTOR Jeremy Madrid MD LAB_1 Performing Organization Address City/[facility] Phon e Number HP CONVERSION documented in this encounter Visit Diagnoses Diagnosis Hx of cancer of endometrium Personal history of malignant neoplasm o f other parts of uterus Endometrial cancer ([facility]) Malignant neoplasm of corpus uteri, exce pt isthmus documented in this encounter Care Teams Crown Presser Relationship Specialty Start Date End Date Olamide Rodney MD PCP - General 09/25/10 01/11/21 [address] [place] [address] documented as of this encounter
--- OUTSIDE RECORDS SUMMARY | 2022-01-29 17:52 | XMS_ITS | Encounter Summary ---
:1960 Author Organization [employer] Address [address] [place] [address] Care Team Providers Name Role Phone Olamide Rodney MD Primary Care Provider Encounter Details Date Type Department Care Team Description 04/17/2011 Notes/Orders [employer] Internal Olamide Rodney DM w/o complication Medicine MD Elina type II (Primary Dx) [address] [facility] [address] [place] [address] [facility] [phone] [place] [address] Social History Tobacco Use Types [...] Primary documented in this encounter Care Teams Small Brake Form Operator Relationship Specialty Start Date End Date Olamide Rodney MD PCP - General 09/25/10 01/11/21 [address] [place] [address] documented as of this encounter
--- OUTSIDE RECORDS SUMMARY | 2022-01-29 17:52 | XMS_ITS | Encounter Summary ---
:1960 Author Organization [email or web address] Address [address] [place] [address] Care Team Providers Name Role Phone Olamide Rodney MD Primary Care Provider Encounter Details Date Type Department Care Team Description 09/24/2010 Office Visit Specialty Center 3931 Wilbur Iqbal MD Gynecology Oncology 6500 [facility] 3931 [facility] 5th [place] [address] [phone] Social History Tobacco Use Types Packs/Day Years Used Date Smoking Tobacco: Never Alcohol Use Standard Drinks/Week Comments Yes 0 (1 standard drink = 0.6 oz pure alcoho l) mod Sex Assigned at Date Recorded Not on file documented as of this encounter Last Filed Vital Signs Vital Sign Reading Time Taken Comments Blood Pressure 110/70 09/24/2010 1:41 PM CDT Pulse 70 09/24/2010 1:41 PM CDT Temperature - - Respiratory Rate 18 09/24/2010 1:41 PM CDT Oxygen Saturation - - Inhaled Oxygen Concentration - - Weight - - Height - - Body Mass Index - - documented in this encounter Progress Notes Jackson Iqbal MD - 09/24/2010 12:01 AM CDT Progress Notes signed by Jackson Iqbal MD at 10/09/10 4734 Author: Jackson Iqbal MD Service: (none) Author Type: Physician Filed: 10/23/10 1539 Note Time: 09/24/10 0001 Status: Signed Fashion Artist: Jackson Iqbal MD (Physician) NAME: PATY LLAMAS MR#: [id number] ACCT: [id number] VISIT: [id number] DICTATING CLINICIAN: Jackson Iqbal MD CONFIRM #: [id number] LOC: 256 CLINIC PROGRESS NOTE DATE OF VISIT: 09/24/2010 : 1960 This is a note of followup on Paty Llamas. This is a 49-year-old, female with a history of endometrial carcinoma recently diagnosed. She underwent surgery on September 18, undergoing a hysterectomy and staging surgery. Her final pathology demonstrates a stage IA, grade 2 endometrial carcinoma and she presents today for routine postop. Her surgical course was complicated by a retained vaginal balloon, which was removed on postoperative day #1, but this did not cause the patient significant discomfort and she has no concerns about this. She presents otherwise without complaints. She continues to take Lovenox because of her factor V Leiden mutation, but has reported no significant bleeding and minimal pain. PHYSICAL EXAMINATION: VITAL SIGNS: The blood pressure is 110/70 and pulse is 70. ABDOMEN: Otherwise soft. I have examined her incisions and they are healing nicely. EXTREMITIES: Lower extremities are symmetric without significant edema. ASSESSMENT: Recently-diagnosed stage IA, grade 2 endometrial carcinoma. PLAN: I spent the bulk of this visit discussing the implications for pathology and I have discussed options, including observation, as well as adjuvant radiation therapy. It is my recommendation she is best served by observation, as the risk for recurrence is very low in this case and the radiation is not without complications. She is amenable to this and the plan will be to follow up on a q. 3-month basis. She will have her initial visit with me and most likely subsequent visit with her primary TONGUE LINING STITCHER, Dr. Tonio Madrid, with whom she has been happy in the past. I have answered her questions to the best of my ability and believe she has a good understanding of her surgery, the postoperative complication, the pathology, as well as her prognosis. ANIA:MEDQ C: CONFIRM #: [id number] documented in this encounter Plan of Treatment Not on filedocumented as of this encounter Visit Diagnoses Not on filedocumented in this encounter Care Teams Monomer Recovery Operator Relationship Specialty Start Date End Date Olamide Rodney MD PCP - General 09/25/10 01/11/21 [address] [place] [address] documented as of this encounter
--- OUTSIDE RECORDS SUMMARY | 2022-01-29 17:52 | XMS_ITS | Encounter Summary ---
:1960 Author Organization [employer] Address [address] [place] [address] Care Team Providers Name Role Phone Olamide Rodney MD Primary Care Provider Encounter Details Date Type Department Care Team Description 03/18/2011 Lab Visit [facility] 3850 DM w/o co mplication type II Laboratory [address] [place] [address] Social History Tobacco Use Types Packs/Day Years Used Date Smoking Tobacco: Never Alcohol Use Standard Drinks/Week Comments Yes 0 (1 standard drink = 0.6 oz pure alcoho l) mod Sex Assigned at Date Recorded Not on file documented as of this encounter Plan of Treatment Not on filedocumented as of this encounter Procedures Procedure Name Priority Date/Time Associated Diagnosis Comme nts HGB A1C Routine 03/18/2011 12:16 Type II or Results for this PM CDT unspecified type procedure a re in diabetes mellitus the result s without mention of section. complication, not stated as uncontrolled ([facility]) VENIPUNCTURE (CAMILA) Routine 03/18/2011 12:08 Type II or Resu lts for this PM CDT unspecified type procedure a re in diabetes mellitus the result s without mention of section. complication, not stated as uncontrolled ([facility]) documented in this encounter Results Hgb A1c (03/18/2011 12:16 PM CDT) P athologist Signature HGB A1C 5.6 0.0 - 6.0 % HP CONVERSION Specimen Anatomical Collection Method Collection Time Receive d Time (Source) Location / / Volume Laterality 03/18/2011 12:16 03/18/2011 2:37 PM CDT PM CDT Olamide Rodney MD LAB_1 Performing Organization Address [facility] Phon e Number HP CONVERSION VENIPUNCTURE (CAMILA) (03/18/2011 12:08 PM CDT) athologist Signature Venipuncture Done HP CONVERSION Specimen (Source) Anatomical Collection Method Collection Time Re ceived Time Location / / Volume Laterality 03/18/2011 12:08 PM CDT Narrative HP CONVERSION - 03/18/2011 12:08 PM CDT Performed at [facility], [address] [place] [address] Olamide Rodney MD LAB_1 Performing Organization Address [facility] Phon e Number HP CONVERSION documented in this encounter Visit Diagnoses Diagnosis Type II or unspecified type diabetes rod litus without mention of complication, not stated as uncontrolled documented in this encounter Care Teams Groundskeeping Maintenance Relationship Specialty Start Date End Date Olamide Rodney MD PCP - General 09/25/10 01/11/21 [address] [place], [place] [id number] documented as of this encounter
--- OUTSIDE RECORDS SUMMARY | 2022-01-29 17:52 | XMS_ITS | Encounter Summary ---
:1960 Author Organization [employer] Address [address] [place] [address] Care Team Providers Name Role Phone Olamide Rodney MD Primary Care Provider Encounter Details Date Type Department Care Team Description 09/03/2010 PN Conversion Only [place] CONVERSJeremy Asencio [address] [facility] [place] [address] [address] [place], [place] [address] (Wo rk) Social History Tobacco Use Types [...] Priority Date/Time Associated Diagnosis Comme nts SURGICAL PATH, AMBROCIO Routine 09/03/2010 7:00 AM Re sults for this NICOLLET CDT procedure are i n the results section. documented in this encounter Results Pathology Report (09/03/2010 7:00 AM CDT) [facility] gist Method Time Signature Path: ?Final SURGICAL PATHOLOGY REP ORT HP CONVERSION Pathology #: [id number] ? Date Obtained: 09/03/2010 ?Date Received: 09/04/2010 DIAGNOSIS: Endometrium, biopsy: - Endometrial carcinoma, endometrioid type, FIGO grade 1-2. COMMENT: Reviewed with my colleagues SAMINA and RADHA. MCSS: I ?Elina CANNON ? (electronic signatur e) ? 09/04/2010 ??15:1 4 CLINICAL NOTES: Dysfunctional uterine bleeding ORGAN/TISSUE SITE: Endometrial biopsy GROSS DESCRIPTION: Received in formalin is a 2.0 x 1.8 x 0.3 cm aggregate of c lotted blood admixed with mucus and lao-pink soft tissue fragments , which are submitted in toto in 1 cassette labeled 2448. ? L UNMA MICROSCOPIC DESCRIPTION: The microscopic examination substantiates the diagnosis cit ed. CPT Codes: ?77860 x 1 ?End of Report Specimen Anatomical Location Collection Method Collection Time Received Time (Source) / Laterality / Volume ENDOMETRIAL 09/03/2010 7:00 09/03/2010 7 :00 STRUCTURE / Unknown AM CDT AM CDT Jeremy Madrid MD LAB_1 Performing Organization Address City/State/ZIP Code Phon e Number HP CONVERSION documented in this encounter Visit Diagnoses Not on filedocumented in this encounter Care Teams Explosives Engineer Relationship Specialty Start Date End Date Olamide Rodney MD PCP - General 09/25/10 01/11/21 [address] [place] [address] documented as of this encounter
--- OUTSIDE RECORDS SUMMARY | 2022-01-29 17:52 | XMS_ITS | Encounter Summary ---
:1960 Author Organization [facility] Address [address] [place] [address] Care Team Providers Name Role Phone Olamide Rodney MD Primary Care Provider Encounter Details Date Type Department Care Team Description 09/18/2010 PN Conversion Only OTHER CONVERSION [address] [place] [address] Social History Tobacco Use Types Packs/Day Years Used Date Smoking Tobacco: Never Alcohol Use Standard Drinks/Week Comments Yes 0 (1 standard drink = 0.6 oz pure alcoho l) mod Sex Assigned at Date Recorded Not on file documented as of this encounter Plan of Treatment Not on filedocumented as of this encounter Visit Diagnoses Not on filedocumented in this encounter Care Teams Web Content Manager Relationship Specialty Start Date End Date Olamide Rodney MD PCP - General 09/25/10 01/11/21 [address] [place], [place] [address] documented as of this encounter
--- OUTSIDE RECORDS SUMMARY | 2022-01-29 17:52 | XMS_ITS | Encounter Summary ---
:1960 Author Organization [employer] Address [address] [place] [address] Care Team Providers Name Role Phone Olamide Rodney MD Primary Care Provider Reason for Visit Reason Comments Abnormal Pap Smear Encounter Details Date Type Department Care Team Description 04/22/2011 Office Visit [place] Jeremy Madrid Personal history of Obstetrics/Gynecolog MD Joni malignant neoplasm y [address] of other parts of [address] [place] [address] uterus (Primary Dx) [place] [address] [phone] Social History Tobacco Use Types Packs/Day Years Used Date Smoking Tobacco: Never Alcohol Use Standard Drinks/Week Comments Yes 0 (1 standard drink = 0.6 oz pure alcoho l) mod Sex Assigned at Date Recorded Not on file documented as of this encounter Last Filed Vital Signs Vital Sign Reading Time Taken Comments Blood Pressure 120/76 04/22/2011 7:49 AM CDT Pulse 61 04/22/2011 7:49 AM CDT Temperature - - Respiratory Rate - - Oxygen Saturation - - Inhaled Oxygen Concentration - - Weight 95.3 kg (210 lb) 04/22/2011 7:47 AM CDT Height - - Body Mass Index 36.05 01/14/2011 6:12 PM CDT documented in this encounter Progress Notes Jeremy Madrid J - 04/22/2011 8:14 AM CDT 50 year old with a hx of Stage 1a, grade 2 endometrial ca. Surgically staged by DR. Iqbal in 08/31.Had initial post op follow up with Dr. Iqbal in 12/31. Pap at that time normal. He as recommended. Q3-4 month follow up with Paps every other visit for the first 2 years. Patient without complaints. Denies vaginal bleeding or pelvic pain. Denies unexpected weight loss orabdominal pain. Exam: Abdomen obese, soft, non tender. No masses or organomegaly. Post surgical scarring noted - allintact. Pelvic: EGBUS normal. Vaginal apex intact, no lesions. Bimanual: No cuff masses or nodularity. A/P: HX Stage 1a, grade 2 endometrial ca 6 month follow up - no evidence of recurrence, doing well Follow up 3-4 months with Pap. documented in this encounter Plan of Treatment Not on filedocumented as of this encounter Visit Diagnoses Diagnosis Personal history of malignant neoplasm o f other parts of uterus - Primary documented in this encounter Care Teams Milker Machine Relationship Specialty Start Date End Date Olamide Rodney MD PCP - General 09/25/10 01/11/21 [address] [place] [address] documented as of this encounter
--- OUTSIDE RECORDS SUMMARY | 2022-01-29 17:52 | XMS_ITS | Encounter Summary ---
:1960 Author Organization [facility] Address [address] [address] Care Team Providers Name Role Phone Olamide Rodney MD Primary Care Provider Encounter Details Date Type Department Care Team Description 09/03/2010 Office Visit Jeremy Aguiar, Obstetrics/Gynecolog y [address] [facility] [address] [place] [address] [place] [address] [phone] (Wo rk) Social History Tobacco Use Types Packs/Day Years Used Date Smoking Tobacco: Never Alcohol Use Standard Drinks/Week Comments Yes 0 (1 standard drink = 0.6 oz pure alcoho l) mod Sex Assigned at Date Recorded Not on file documented as of this encounter Last Filed Vital Signs Vital Sign Reading Time Taken Comments Blood Pressure 131/75 09/03/2010 8:05 AM CDT Pulse 68 09/03/2010 8:05 AM CDT Temperature - - Respiratory Rate - - Oxygen Saturation - - Inhaled Oxygen Concentration - - Weight 97.1 kg (213 lb 15.7 oz) 09/03/2010 8:05 AM C: 9 7.1kg CDT Height 163.8 cm (5' 4.5) 09/03/2010 8:05 AM C: 163.8cm CDT Body Mass Index 36.16 09/03/2010 8:05 AM CDT documented in this encounter Progress Notes Jeremy Madrid - 09/03/2010 12:01 AM CDT NAME: PATY LLAMAS MR#: [id number] ACCT: [id number] VISIT: [id number] DICTATING CLINICIAN: Jeremy Madrid MD CONFIRM #: [id number] LOC: 512 CLINIC PROGRESS NOTE DATE OF VISIT: 09/03/2010 : 1960 Paty Llamas is a 49-year-old female who presents for an endometrial biopsy. She had recently on 08/[address] Olamide Rodney for a health maintenance physical, at which time she reported basically constant spotting. Her has had a vasectomy. Pap smears have been normal. Her past history is significant for a gastric bypass in 2002, abdominoplasty and pannus removal in 2004. She also had a deep venous thrombosis in 2000 while on control pills and carries a history of Factor V Leiden. She has not had any recurrent thrombotic episodes since then. A pelvic ultrasound had been obtained following her report of intermittent spotting, and it show an ill-defined endometrium measuring upper normal for a premenopausal woman 11 to 12 mm in maximum thickness. The ovaries were normal. I discussed with the patient the nature of dysfunctional uterine bleeding in the perimenopausal time frame which is likely what is going on with her. She is not overly troubled by it. The need for endometrial sampling to rule out any pathologic changes was explained, and the patient gives verbal consent to proceed. A speculum was inserted and the cervix visualized. An endometrial biopsy Pipelle was passed to 7 cm in a slightly anteverted position. A moderate amount of tissue was returned on a single pass. The procedure was tolerated satisfactorily. All four quadrants were sampled. The biopsy was submitted to Pathology. As I suspect, this is dysfunctional uterine bleeding as a result of oligo or anovulation. A course of progesterone 10 mg daily times 10 days to induce a withdrawal bleed was recommended as a most likely plan of action. A prescription was given, but the patient was instructed to await my call with the results of the endometrial biopsy before initiating that therapy. ASSESSMENT: Spotting in a 49-year-old with a slightly thickened endometrial cavity. Endometrial biopsy performed today. Will likely treat with a 10-day course of Provera should the biopsy prove to be benign. CJS:MEDQ C: CONFIRM #: [id number] documented in this encounter Plan of Treatment Not on filedocumented as of this encounter Visit Diagnoses Not on filedocumented in this encounter Care Teams Seed Sales Manager Relationship Specialty Start Date End Date Olamide Rodney MD PCP - General 09/25/10 01/11/21 [address] [place] [address] documented as of this encounter
--- OUTSIDE RECORDS SUMMARY | 2022-01-29 17:52 | XMS_ITS | Encounter Summary ---
:1960 Author Organization [employer] Address [address] [place] [address] Care Team Providers Name Role Phone Olamide Rodney MD Primary Care Provider Encounter Details Date Type Department Care Team Description 10/24/2010 PN Conversion Only [place] [facility] [place] [address] [address] [facility] [phone] [place] [address] ( rk) Social History Tobacco Use Types Packs/Day Years Used Date Smoking Tobacco: Never Alcohol Use Standard Drinks/Week Comments Yes 0 (1 standard drink = 0.6 oz pure alcoho l) mod Sex Assigned at Date Recorded Not on file documented as of this encounter Plan of Treatment Not on filedocumented as of this encounter Visit Diagnoses Not on filedocumented in this encounter Care Teams Road Roller Operator Hot Mix Relationship Specialty Start Date End Date Olamide Rodney MD PCP - General 09/25/10 01/11/21 [address] [place] [address] documented as of this encounter
--- OUTSIDE RECORDS SUMMARY | 2022-01-29 17:52 | XMS_ITS | Encounter Summary ---
:1960 Author Organization [employer] Address [address] [place] [address] Care Team Providers Name Role Phone Shira Rodney MD Primary Care Provider Reason for Visit Reason Comments Other Encounter Details Date Type Department Care Team Description 09/06/2010 Telephone [place] [facility] Malka Rodney MD Other Medicine [address] [place] [address] [place] [address] [phone] Social History Tobacco Use Types Packs/Day Years Used Date Smoking Tobacco: Never Alcohol Use Standard Drinks/Week Comments Yes 0 (1 standard drink = 0.6 oz pure alcoho l) mod Sex Assigned at Date Recorded Not on file documented as of this encounter Progress Notes Center, Message - 09/06/2010 12:05 PM CDT Non -Symptom Message from Front Line Caller Name/Relationship:Paty Primary Credit Assessment Analyst:Ronel Message:Pt calling to see if Ronel received pts medical records from [place] and would like to discuss some test results that came in regarding a mole. Please return call Line Fisher:Paty Best call back number:[phone] work or [phone] home Is it OK to leave a confidential message on this voicemail?yes on both *[id number] Created on 06Sep2010 12:05pm by GRISELDA FUENTES On 06Sep2010 3:27pm SHIRA RODNEY wrote: I called her. reviewed results of skin biopsy and uterine biopsy. see dr. chen on friday. reviewed CT abd/pelvis from 2008 at [facility] notes no mention of anything wrong in uterus. Acknowledged by SHIRA RODNEY on 3:27pm documented in this encounter Plan of Treatment Not on filedocumented as of this encounter Visit Diagnoses Not on filedocumented in this encounter Care Teams Retort Setter Relationship Specialty Start Date End Date Shira Rodney MD PCP - General 09/25/10 01/11/21 [address] [place] [address] documented as of this encounter
--- OUTSIDE RECORDS SUMMARY | 2022-01-29 17:53 | XMS_ITS | Encounter Summary ---
:1960 Author Organization [employer] Address [address] [place] [address] Care Team Providers Name Role Phone Olamide Rodney MD Primary Care Provider Encounter Details Date Type Department Care Team Description 08/07/2007 PN Conversion Only [facility] Maria E Blank, [address] [facility] [place] [place] [address] Social History Tobacco Use Types Packs/Day Years Used Date Smoking Tobacco: Never Alcohol Use Standard Drinks/Week Comments Yes 0 (1 standard drink = 0.6 oz pure alcoho l) mod Sex Assigned at Date Recorded Not on file documented as of this encounter Plan of Treatment Not on filedocumented as of this encounter Procedures Procedure Name Priority Date/Time Associated Comments Diagnosis URINALYSIS Routine 08/07/2007 1:47 PM Results f or this ROUTINE(MICRO IF POS) DRAINLAYER proced ure are in the results section. URINALYSIS Routine 08/07/2007 1:47 PM Results f or this MICROSCOPIC DRAINLAYER procedure are i n the results section. COMPLETE BLOOD Routine 08/07/2007 1:47 PM Results for this COUNT-W/DIFF DRAINLAYER procedure are i n the results section. documented in this encounter Results (ABNORMAL) Complete Blood Count-W/Diff (08/07/2007 1:47 PM DRAINLAYER) [facility] Method Time Signature White Blood Cell 7.4 3.8 - 11.0 HP CONVERSIO N Count K/cmm Red Blood Cell 4.23 3.70 - HP CONVERSION Count 5.20 m/cmm Hemoglobin 14.3 11.8 - HP CONVERSION 15.5 gm/dL Hematocrit 42.4 35.0 - HP CONVERSION 46.0 % Mean Corpuscular 100.3 (H) 80.0 - HP CONVERSION Volume 100.0 fl Mean Corpuscular 33.8 27.0 - HP CONVERSION Hemoglobin 34.0 pg Mean Corpuscular 33.7 32.0 - HP CONVERSION Hemoglobin Conc 36.5 gm/dL [place] RDW 13.4 11.0 - HP CONVERSION 15.0 % Platelet Count 254 140 - 450 HP CONVERSION k/cmm Differential Auto-Dif No normal HP CONVERSION Verify range Neutrophils 4.1 2.0 - 7.5 HP CONVERSION Absolute Count K/cmm Neutrophil 55.3 50.0 - HP CONVERSION 75.0 % Lymphocyte % 36.0 20.0 - HP CONVERSION 40.0 % Monocyte 6.0 5.0 - 14.0 HP CONVERSION % Eosinophil 1.8 0.0 - 6.0 HP CONVERSION % Basophil % 0.9 0.0 - 2.0 HP CONVERSION % Specimen (Source) Anatomical Collection Method Collection Time Re ceived Time Location / / Volume Laterality 08/07/2007 1:47 PM DRAINLAYER Maria E Luna MD LAB_1 Performing Organization Address City/State/ZIP Code Phon e Number HP CONVERSION Urinalysis Routine(Micro If Pos) (08/07/2007 1:47 PM DRAINLAYER) [facility] Method Time Signature Turbidity Clear No normal HP CONVERSION range pH Urine 7.0 4.5 - 7.5 HP CONVERSION Protein Urine Negative Neg-Trac HP CONVERSION Glucose, Negative Neg-Trac HP CONVERSION Qualitative U Ketones Negative Negative HP CONVERSION U BILI Negative Negative HP CONVERSION Blood Urine Negative Negative HP CONVERSION Nitrite Urine Negative Negative HP CONVERSION Leukocyte Negative Negative HP CONVERSION Esterase Urine Urobilinogen Negative 0.2 - 1.0 HP CONVERSION Urine U Specific 1.010 1.005 - 25 HP CONVERSION [place] Specimen (Source) Anatomical Collection Method Collection Time Re ceived Time Location / / Volume Laterality 08/07/2007 1:47 PM DRAINLAYER Maria E Luna MD LAB_1 Performing Organization Address City/State/ZIP Code Phon e Number HP CONVERSION (ABNORMAL) Urinalysis Microscopic (08/07/2007 1:47 PM DRAINLAYER) [facility] gist Method Time Signature White Blood Negative 0 - 3 HP CONVERSION Cells Urine Red Blood Cells 0-2/HPF 0 - 2 HP CONVERSION Urine Bacteria Urine Rare (A) None HP CONVERSION Epithelial Few Few /HPF HP CONVERSION Cells Specimen (Source) Anatomical Collection Method Collection Time Re ceived Time Location / / Volume Laterality 08/07/2007 1:47 PM DRAINLAYER Maria E Luna MD LAB_1 Performing Organization Address City/State/ZIP Code Phon e Number HP CONVERSION documented in this encounter Visit Diagnoses Not on filedocumented in this encounter Care Teams Director Of Business Applications Relationship Specialty Start Date End Date Olamide Rodney MD PCP - General 09/25/10 01/11/21 [address] [place] [address] documented as of this encounter
--- OUTSIDE RECORDS SUMMARY | 2022-01-29 17:53 | XMS_ITS | Encounter Summary ---
:1960 Author Organization [facility] Address [address] [place] [address] Care Team Providers Name Role Phone Olamide Rodney MD Primary Care Provider Encounter Details Date Type Department Care Team Description 04/03/2005 Nursing Visit [facility] [place] [facility] [place] [address] [facility] [address] [place] [address] [place], [place] [phone] [address] Social History Tobacco Use Types Packs/Day Years Used Date Smoking Tobacco: Never Alcohol Use Standard Drinks/Week Comments Yes 0 (1 standard drink = 0.6 oz pure alcoho l) mod Sex Assigned at Date Recorded Not on file documented as of this encounter Plan of Treatment Not on filedocumented as of this encounter Visit Diagnoses Not on filedocumented in this encounter Care Teams College Counselor Relationship Specialty Start Date End Date Olamide Rodney MD PCP - General 09/25/10 01/11/21 [address] [place], [place] [address] documented as of this encounter
--- OUTSIDE RECORDS SUMMARY | 2022-01-29 17:53 | XMS_ITS | Encounter Summary ---
:1960 Author Organization [employer] Address [address] [place] [address] Care Team Providers Name Role Phone Danielle Bender MD Primary Care Provider Reason for Visit Reason Onset Date Comments LETTER NEEDED 07/31/2004 Encounter Details Date Type Department Care Team Description 07/31/2004 Telephone [place] [facility] Danielle Bender MD LETTER NEEDED Medicine [address] [facility] [address] [facility] [address] [place] [address] [phone] (Wo rk) Social History Tobacco Use Types Packs/Day Years Used Date Smoking Tobacco: Never Alcohol Use Standard Drinks/Week Comments Yes 0 (1 standard drink = 0.6 oz pure alcoho l) mod Sex Assigned at Date Recorded Not on file documented as of this encounter Nursing Notes 07/31/2004 11:59 PM TREASURY CONSULTANT >> DORIS JOYCE FriAug 06, 2004 10:03 AM paty will be in todday to pick up driver her letter at the front attendant Doris Joyce LPN >> DORIS JOYCE FriAug 06, 2004 9:39 AM message to call clinic for arrangement of getting letter Doris Joyce LPN >> DANIELLE BENDER FriAug 06, 2004 9:13 AM letter printed and signed, in outbasket. Danielle Bender MD >> OLGA Dale Jul 31, 2004 8:34 AM Needs a letter stating she needed an abdominoplasy as a f/u to her gastric bypass. She needs a letter stating that it was a medical necessity, so she can get reimbursed from her medical flex spendingaccount. Dr. Mckenna did the abdominoplasty and the patient had the surgery on 07/09/04. The reason forthe surgery was because she was getting rashes from the extra skin. Patient is aware that DR. Bender is out of the office until Friday08/06/04. OK to wait. Olga Jesus documented in this encounter Plan of Treatment Not on filedocumented as of this encounter Visit Diagnoses Not on filedocumented in this encounter Care Teams Cleaner Operator Relationship Specialty Start Date End Date Danielle Bender MD PCP - General 04/09/01 08/07/[address] [place] [address] documented as of this encounter
--- OUTSIDE RECORDS SUMMARY | 2022-01-29 17:53 | XMS_ITS | Encounter Summary ---
:1960 Author Organization [employer] Address [address], [place] [address] Care Team Providers Name Role Phone Olamide Rodney MD Primary Care Provider Encounter Details Date Type Department Care Team Description 08/08/2010 Office Visit [place] [facility] Malka Rodney MD [address] [address] [place], [place] [address] [phone] Social History Tobacco Use Types Packs/Day Years Used Date Smoking Tobacco: Never Alcohol Use Standard Drinks/Week Comments Yes 0 (1 standard drink = 0.6 oz pure alcoho l) mod Sex Assigned at Date Recorded Not on file documented as of this encounter Last Filed Vital Signs Vital Sign Reading Time Taken Comments Blood Pressure 124/82 08/08/2010 9:33 AM POST DOCTORAL RESEARCHER Pulse 64 08/08/2010 9:33 AM POST DOCTORAL RESEARCHER Temperature - - Respiratory Rate - - Oxygen Saturation - - Inhaled Oxygen Concentration - - Weight 96 kg (211 lb 9.6 oz) 08/08/2010 9:33 AM POST DOCTORAL RESEARCHER C: 96.0kg Height 163.8 cm (5' 4.5) 08/08/2010 9:33 AM POST DOCTORAL RESEARCHER C: 163 .8cm Body Mass Index 35.76 08/08/2010 9:33 AM POST DOCTORAL RESEARCHER documented in this encounter Progress Notes Olamide Rodney MD - 08/08/2010 12:01 AM CST NAME: PATY LLAMAS MR#: [id number] ACCT: [id number] VISIT: [id number] DICTATING CLINICIAN: Olamide Rodney MD CONFIRM #: [id number] LOC: 506 CLINIC PROGRESS NOTE DATE OF VISIT: 08/08/2010 : 1960 HISTORY: A 49-year-old new patient for a physical. She has multiple other concerns but requests that we get started on the physical. Zostavax 2008. Pneumonia vaccine 2005. Tetanus diphtheria 1999. Adacel unknown. She has had a lot of daily spotting and heavy menstrual cycles. She feels she is not really getting a regular cycle, just a lot of spotting. She has always had irregular menstrual cycle for many years. She remotely had a DVT on control pills. She is sexually active and denies risk for STD. Her had vasectomy. Pap smears have been normal. She does do self-breast exam. No history of breast biopsy. Gets annual mammograms. She is working out at the gym 3 times per week 30 minutes doing weights and cardio. Bone density approximately 2008 outside [facility]. Colonoscopy 2009 outside [facility], patient states it was normal. She has had a gastric bypass remotely in 2002. She then had an abdominoplasty and pannus removal in 2004. She had the deep vein thrombosis in 2000 and does carry a history of factor 5 Leiden. She has not had any recurrent thrombosis. She carries a history of type 2 diabetes mellitus that was apparently resolved after the gastric bypass and weight loss. Her lowest weight after gastric bypass was 162. She has slowly gained weight again. She carries a history of some chronic abdominal pain, insomnia, history of alcohol abuse, seasonal asthma, history of actinic keratoses that are not resolving with cryotherapy. SOCIAL HISTORY: . She has an estranged stepdaughter. 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 HABITS: No caffeine. Two to 3 alcohol beverages per day. No smoking. FAMILY HISTORY: Asthma. Her father had COPD and right heart failure. Also family history of thyroid disease and colon cancer. REVIEW OF SYSTEMS: She has been off her Qvar. She does get a lot of abdominal pain and thinks she has nerve damage from previous surgeries. PAST MEDICAL HISTORY: See the updated list in today's [facility] patient health profile. MEDICATIONS: See the updated list in today's [employer] patient health profile. ALLERGIES: See the updated list in today's [employer] patient health profile. OBJECTIVE: VITAL SIGNS: Blood pressure 124/82, pulse 64, height 64.5 inches, weight 211. Body mass index 35. GENERAL: She is an overweight female in no distress. EYES: No icterus or injection. ENT: Tympanic membranes, oropharynx appears clear. NECK: No lymphadenopathy, thyromegaly, thyroid nodule, carotid bruits. LUNGS: Clear posteriorly. CARDIOVASCULAR: Regular rate and rhythm without gallops, murmurs or rubs. 2/4 radial artery pulse bilaterally. No lower extremity edema. BREASTS: Breasts appear normal without skin changes, masses, axillary or supraclavicular lymphadenopathy. ABDOMEN: Bowel sounds present. No masses or hepatosplenomegaly. GENITOURINARY: External genitalia, vaginal mucosa and cervix appears normal. A Pap smear was completed. The uterus and adnexa normal on a bimanual examination. RECTAL: Normal rectal tone. No masses. PSYCHIATRIC: An appropriate mood and affect. ASSESSMENT: A 49-year-old new patient for a physical exam. 1. History of gastric bypass. 2. Chronic abdominal pain, question neuropathy. 3. Chronic insomnia. 4. History of seasonal asthma. 5. Recurrent facial skin lesions not resolving with cryotherapy. 6. History of deep venous thrombosis and positive for factor 5 Leiden. 7. History of type 2 diabetes mellitus. 8. Menorrhagia. PLAN: 1. Physical exam, Pap, pelvic and clinical breast exam were completed. Recommend monthly self-breast exam and annual mammograms. We will need to get records on Adacel, bone density, colonoscopy from outside our system. She will have multiple labs today including vitamin D, cholesterol fractionation, glucose, A1c, urine microalbumin, TSH, CBC, electrolytes, creatinine, LFTs, calcium, folate, B12, ferritin, iron saturation, iron, magnesium, phosphorus, iron binding capacity, PTH, copper, vitamin B6 and thiamine. In addition, she will see Dermatology for the facial lesions. She will also have a pelvic ultrasound. 2. She needs to follow up in a couple weeks as she has multiple additional symptoms we were unable to address today. SME:MEDQ C: CONFIRM #: [id number] DOCTORAL RESEARCHER documented in this encounter Plan of Treatment Not on filedocumented as of this encounter Visit Diagnoses Not on filedocumented in this encounter Care Teams Code Enforcement Inspector Relationship Specialty Start Date End Date Olamide Rodney MD PCP - General 09/25/10 01/11/21 [address] [place] [address] documented as of this encounter
--- OUTSIDE RECORDS SUMMARY | 2022-01-29 17:53 | XMS_ITS | Encounter Summary ---
:1960 Author Organization [employer] Address [address] [place] [address] Care Team Providers Name Role Phone Olamide Rodney MD Primary Care Provider Encounter Details Date Type Department Care Team Description 05/06/2006 Nursing Visit [facility] [address] [facility] [address] [place] [address] [place] [phone] Social History Tobacco Use Types Packs/Day [...] in this encounter Care Teams Web Content Specialist Relationship Specialty Start Date End Date Olamide Rodney MD PCP - General 09/25/10 01/11/21 [address] [place], [place] [address] documented as of this encounter
--- OUTSIDE RECORDS SUMMARY | 2022-01-29 17:53 | XMS_ITS | Encounter Summary ---
:1960 Author Organization [employer] Address [address] [place] [address] Care Team Providers Name Role Phone Olamide Rodney MD Primary Care Provider Encounter Details Date Type Department Care Team Description 03/13/2008 Office Visit [facility] [place] [id number] [place] [address] [place] [address] [phone] Social History Tobacco Use Types Packs/Day Years Used Date Smoking Tobacco: Never Alcohol Use Standard Drinks/Week Comments Yes 0 (1 standard drink = 0.6 oz pure alcoho l) mod Sex Assigned at Date Recorded Not on file documented as of this encounter Last Filed Vital Signs Vital Sign Reading Time Taken Comments Blood Pressure 110/84 03/13/2008 10:15 AM CDT Pulse 60 03/13/2008 10:15 AM CDT Temperature 36.6 ??C (97.9 ??F) 03/13/2008 10:15 AM ORAL C: 36.6 C CDT Respiratory Rate 16 03/13/2008 10:15 AM CDT Oxygen Saturation - - Inhaled Oxygen Concentration - - Weight - - Height - - Body Mass Index - - documented in this encounter Progress Notes Sharon Sandoval - 03/13/2008 12:01 AM CDT Progress Notes signed by Sharon Sandoval MD at 03/22/08 1028 Author: Sharon Sandoval MD Service: (none) Author Type: Physician Filed: 10/13/10 0658 Note Time: 03/13/08 0001 Status: Signed Media Theorist And Author Of: Sharon Sandoval MD (Physician) NAME: PATY LLAMAS MR#: [id number] ACCT: [id number] VISIT: [id number] DICTATING CLINICIAN: SHARON SANDOVAL MD CONFIRM #: [id number] LOC: 520 CLINIC PROGRESS NOTE DATE OF VISIT: 03/13/2008 SUBJECTIVE: 47-year-old comes to urgent care because of mildly itchy rash on the abdomen for the past day. This is localized to 1 side on the left lower abdomen. She has had no pain. She has had only about 4 lesions. No known modifying factors or associated symptoms. ADR/ALLERGIES: REVIEWED IN PHP OF [facility]. MEDICATIONS: Reviewed in [facility] of [facility]. PAST HISTORY: Patient has had a history of shingles in the same area previously. She had gastric bypass surgery 5 years ago. SOCIAL HISTORY: Patient does not smoke. REVIEW OF SYSTEMS: No fever, wheezing or dyspnea. No pain at the site of the lesions. OBJECTIVE: SKIN: Patient has 4 vesicular lesions with erythematous bases in the left lower abdomen, 1 with a intact vesical. ASSESSMENT: The patient to use acyclovir for 10 days since she had shingles in early January. She will be reassessed as needed. PLAN: See assessment. FINAL DIAGNOSIS: Herpes zoster. DMR:[id number] C: 03/16/08 17:49 CONFIRM #: [id number] PASS OPERATOR documented in this encounter Plan of Treatment Not on filedocumented as of this encounter Visit Diagnoses Not on filedocumented in this encounter Care Teams Economic Historian Relationship Specialty Start Date End Date Olamide Rodney MD PCP - General 09/25/10 01/11/21 [address] [place] [address] documented as of this encounter
--- OUTSIDE RECORDS SUMMARY | 2022-01-29 17:53 | XMS_ITS | Encounter Summary ---
:1960 Author Organization [employer] Address [address] [place] [address] Care Team Providers Name Role Phone Olamide Rodney MD Primary Care Provider Encounter Details Date Type Department Care Team Description 10/02/2005 PN Conversion Only [facility] [place] [place] [address] [place] [address] [address] [place] [address] (Wo rk) Social History Tobacco Use Types Packs/Day Years Used Date Smoking Tobacco: Never Alcohol Use Standard Drinks/Week Comments Yes 0 (1 standard drink = 0.6 oz pure alcoho l) mod Sex Assigned at Date Recorded Not on file documented as of this encounter Plan of Treatment Not on filedocumented as of this encounter Procedures Procedure Name Priority Date/Time Associated Comments Diagnosis ELECTROLYTES (NA, K, Routine 10/02/2005 9:50 AM R esults for this CL, BICARB) CDT procedure are i n the results section. IRON BINDING CAPACITY Routine 10/02/2005 9:50 AM Results for this (INCL IRON) CDT procedure are i n the results section. GLUCOSE Routine 10/02/2005 9:50 AM Results f or this CDT procedure are i n the results section. THYROID STIMULATING Routine 10/02/2005 9:50 AM Re sults for this HORMONE CDT procedure are i n the results section. LIPID PANEL AND Routine 10/02/2005 9:50 AM Result s for this DIRECT LDL(IF NEEDED) CDT proced ure are in the results section. CREATININE / GFR Routine 10/02/2005 9:50 AM Resul ts for this CDT procedure are i n the results section. COMPLETE BLOOD Routine 10/02/2005 9:50 AM Results for this COUNT-W/DIFF CDT procedure are i n the results section. FERRITIN Routine 10/02/2005 9:50 AM Results f or this CDT procedure are i n the results section. HGB A1C Routine 10/02/2005 9:50 AM Results f or this CDT procedure are i n the results section. VITAMIN B12 ONLY Routine 10/02/2005 9:50 AM Resul ts for this CDT procedure are i n the results section. ALT (SGPT) Routine 10/02/2005 9:50 AM Results f or this CDT procedure are i n the results section. AST Routine 10/02/2005 9:50 AM Results f or this CDT procedure are i n the results section. BUN Routine 10/02/2005 9:50 AM Results f or this CDT procedure are i n the results section. URINALYSIS Routine 10/02/2005 9:38 AM Results f or this ROUTINE(MICRO IF POS) CDT proced ure are in the results section. ANATOMICAL PATH Routine 10/02/2005 8:30 AM Result s for this LIQUID BASED CDT procedure are i n the results section. documented in this encounter Results (ABNORMAL) Complete Blood Count-W/Diff (10/02/2005 9:50 AM CDT) [facility]ist Method Time Signature White Blood Cell 5.6 3.8 - 11.0 HP CONVERSIO N Count K/cmm Red Blood Cell 3.95 3.70 - HP CONVERSION Count 5.20 m/cmm Hemoglobin 13.6 11.8 - HP CONVERSION 15.5 gm/dL Hematocrit 38.3 35.0 - HP CONVERSION 46.0 % Mean Corpuscular 96.9 80.0 - HP CONVERSION Volume 100.0 fl Mean Corpuscular 34.4 (H) 27.0 - HP CONVERSION Hemoglobin 34.0 pg Mean Corpuscular 35.5 32.0 - HP CONVERSION Hemoglobin Conc 36.5 gm/dL [place] RDW 13.2 11.0 - HP CONVERSION 15.0 % Platelet Count 238 140 - 450 HP CONVERSION k/cmm Differential Auto-Dif No normal HP CONVERSION Verify range Neutrophils 2.8 2.0 - 7.5 HP CONVERSION Absolute Count K/cmm Neutrophil 49.9 (L) 50.0 - HP CONVERSION 75.0 % Lymphocyte % 39.7 20.0 - HP CONVERSION 40.0 % Monocyte 7.1 5.0 - 14.0 HP CONVERSION % Eosinophil 2.4 0.0 - 6.0 HP CONVERSION % Basophil % 0.9 0.0 - 2.0 HP CONVERSION % Specimen (Source) Anatomical Collection Method Collection Time Re ceived Time Location / / Volume Laterality 10/02/2005 9:50 AM CDT Kwan Gilmore MD LAB_1 Performing Organization Address City/State/ZIP Code Phon e Number HP CONVERSION ALT (SGPT) (10/02/2005 9:50 AM CDT) [facility] gist Method Time Signature Alanine 30 0 - 65 HP CONVERSION Aminotransferase U/L Specimen (Source) Anatomical Collection Method Collection Time Re ceived Time Location / / Volume Laterality 10/02/2005 9:50 AM CDT Kwan Gilmore MD LAB_1 Performing Organization Address City/[facility]/ZIP Code Phon e Number HP CONVERSION AST (10/02/2005 9:50 AM CDT) [facility] Method Time Signature Aspartate 20 0 - 45 HP CONVERSION Aminotransferase U/L Specimen (Source) Anatomical Collection Method Collection Time Re ceived Time Location / / Volume Laterality 10/02/2005 9:50 AM CDT Kwan Gilmore MD LAB_1 Performing Organization Address City/State/ZIP Code Phon e Number HP CONVERSION BUN (10/02/2005 9:50 AM CDT) athologist Signature Blood Urea 9 5 - 26 HP CONVERSION Nitrogen mg/dL Specimen (Source) Anatomical Collection Method Collection Time Re ceived Time Location / / Volume Laterality 10/02/2005 9:50 AM CDT Kwan Gilmore MD LAB_1 Performing Organization Address City/State/ZIP Code Phon e Number HP CONVERSION Creatinine / GFR (10/02/2005 9:50 AM CDT) athologist Signature Creatinine 0.7 0.5 - 1.5 HP CONVERSION Serum mg/dL Specimen (Source) Anatomical Collection Method Collection Time Re ceived Time Location / / Volume Laterality 10/02/2005 9:50 AM CDT Kwan Gilmore MD LAB_1 Performing Organization Address City/State/ZIP Code Phon e Number HP CONVERSION Glucose (10/02/2005 9:50 AM CDT) athologist Signature Lab Glucose 72 60 - 100 HP CONVERSION mg/dL Specimen (Source) Anatomical Collection Method Collection Time Re ceived Time Location / / Volume Laterality 10/02/2005 9:50 AM CDT Kwan Gilmore MD LAB_1 Performing Organization Address City/[facility]/ZIP Code Phon e Number HP CONVERSION Electrolytes (NA, K, CL, Bicarb) (10/02/2005 9:50 AM CDT) athologist Signature Sodium 138 137 - 147 HP CONVERSION meq/L Potassium 3.9 3.5 - 5.2 HP CONVERSION meq/L Chloride 103 98 - 110 HP CONVERSION meq/L Bicarbonate 26 23 - 33 HP CONVERSION mmol/L Specimen (Source) Anatomical Collection Method Collection Time Re ceived Time Location / / Volume Laterality 10/02/2005 9:50 AM CDT Kwan Gilmore MD LAB_1 Performing Organization Address City/[facility]/ZIP Code Phon e Number HP CONVERSION (ABNORMAL) Lipid Panel and Direct LDL(If Needed) (10/02/2005 9:50 AM CDT) [facility] Method Time Signature Cholesterol/HDL 2.3 No normal HP CONVERSION Ratio Screen range Cholesterol 149 <200 mg/dL HP CONVERSION HDL Cholesterol 65 (H) 40 - 60 HP CONVERSION mg/dL Triglycerides 64 0 - 149 HP CONVERSION mg/dL LDL Calculated 71 0 - 130 HP CONVERSION mg/dL Comment: Specimen (Source) Anatomical Collection Method Collection Time Re ceived Time Location / / Volume Laterality 10/02/2005 9:50 AM CDT Kwan Gilmore MD LAB_1 Performing Organization Address City/[facility]/ZIP Code Phon e Number HP CONVERSION Ferritin (10/02/2005 9:50 AM CDT) athologist Signature Ferritin Serum 40 10 - 291 HP CONVERSION ng/mL Specimen (Source) Anatomical Collection Method Collection Time Re ceived Time Location / / Volume Laterality 10/02/2005 9:50 AM CDT Kwan Gilmore MD LAB_1 Performing Organization Address City/State/ZIP Code Phon e Number HP CONVERSION Hgb A1c (10/02/2005 9:50 AM CDT) athologist Signature HGB A1C 4.9 <6.0 % HP CONVERSION Specimen (Source) Anatomical Collection Method Collection Time Re ceived Time Location / / Volume Laterality 10/02/2005 9:50 AM CDT Kwan Gilmore MD LAB_1 Performing Organization Address City/[facility]/ZIP Code Phon e Number HP CONVERSION Thyroid Stimulating Hormone (10/02/2005 9:50 AM CDT) athologist Signature Thyroid 2.06 0.20 - HP CONVERSION Stimulating 4.50 Hormone uIU/mL Specimen (Source) Anatomical Collection Method Collection Time Re ceived Time Location / / Volume Laterality 10/02/2005 9:50 AM CDT Kwan Gilmore MD LAB_1 Performing Organization Address City/[facility] Code Phon e Number HP CONVERSION Vitamin B12 Only (10/02/2005 9:50 AM CDT) athologist Signature Vitamin B12 906 211 - 911 HP CONVERSION pg/mL Specimen (Source) Anatomical Collection Method Collection Time Re ceived Time Location / / Volume Laterality 10/02/2005 9:50 AM CDT Kwan Gilmore MD LAB_1 Performing Organization Address City/[facility] Code Phon e Number HP CONVERSION Iron Binding Capacity (Incl Iron) (10/02/2005 9:50 AM CDT) athologist Signature Iron, Serum 87 50 - 165 HP CONVERSION ug/dL Iron Binding 352 250 - 450 HP CONVERSION Capacity ug/dL Iron Saturation 25 20 - 55 % HP CONVERSION Specimen (Source) Anatomical Collection Method Collection Time Re ceived Time Location / / Volume Laterality 10/02/2005 9:50 AM CDT Kwan Gilmore MD LAB_1 Performing Organization Address City/[facility]/ZIP Code Phon e Number HP CONVERSION Urinalysis Routine(Micro If Pos) (10/02/2005 9:38 AM CDT) [facility] gist Method Time Signature Turbidity Clear No normal HP CONVERSION range pH Urine 7.5 4.5 - 7.5 HP CONVERSION Protein Urine Negative Neg-Trac HP CONVERSION Glucose, Negative Neg-Trac HP CONVERSION Qualitative U Ketones Negative Negative HP CONVERSION U BILI Negative Negative HP CONVERSION Blood Urine Negative Negative HP CONVERSION Nitrite Urine Negative Negative HP CONVERSION Leukocyte Negative Negative HP CONVERSION Esterase Urine Urobilinogen Negative 0.2 - 1.0 HP CONVERSION Urine U Specific 1.015 1.005 - 25 HP CONVERSION Moose Specimen (Source) Anatomical Collection Method Collection Time Re ceived Time Location / / Volume Laterality 10/02/2005 9:38 AM CDT Kwan Gilmore MD LAB_1 Performing Organization Address City/State/ZIP Code Phon e Number HP CONVERSION Pap Smear (10/02/2005 8:30 AM CDT) [facility] Method Time Signature PAP Smear SEE TEXT No normal HP CONVERSION Liquid Based range Comment: Patient: PATY LLAMAS ? CERVICAL CYTOLOGY REPORT Pathology # ??[id number] ?Date Obtained: [id number] ? Date Received: [id number] CYTOLOGIC IMPRESSION: Negative for intraepithelial lesion or m alignancy. ? ANGELA TIONAL DATA LMP: CLINICAL HIST LIQUID BASED PAP CERVICAL SPECIMEN ADEQUACY: ?? Satisfactory. ENDOCERVICAL CELLS: ??Present. Verified 10/07/05 by: ??S_V ?(electronic signature) Specimen (Source) Anatomical Collection Method Collection Time Re ceived Time Location / / Volume Laterality 10/02/2005 8:30 AM CDT Kwan Gilmore MD LAB_1 Performing Organization Address City/State/ZIP Code Phon e Number HP CONVERSION documented in this encounter Visit Diagnoses Not on filedocumented in this encounter Care Teams Button Pusher Relationship Specialty Start Date End Date Olamide Rodney MD PCP - General 09/25/10 01/11/21 [address] [place] [address] documented as of this encounter
--- OUTSIDE RECORDS SUMMARY | 2022-01-29 17:53 | XMS_ITS | Encounter Summary ---
:1960 Author Organization [facility] Address [address] [place] [address] Care Team Providers Name Role Phone Danielle Bender MD Primary Care Provider Encounter Details Date Type Department Care Team Description 11/13/2004 Correspondence [facility] Kodak Deleon Colonoscopy Gastroenterology Ramon Batres MD Informed Consent [address] [facility] [address] [place] [address] [place], [place] [phone] [address] Social History Tobacco Use Types Packs/Day Years Used Date Smoking Tobacco: Never Alcohol Use Standard Drinks/Week Comments Yes 0 (1 standard drink = 0.6 oz pure alcoho l) mod Sex Assigned at Date Recorded Not on file documented as of this encounter Progress Notes Ramon Deleon - 11/13/2004 12:00 AM CDT documented in this encounter Plan of Treatment Not on filedocumented as of this encounter Visit Diagnoses Not on filedocumented in this encounter Care Teams Weeder Relationship Specialty Start Date End Date Danielle Bender MD PCP - General 04/09/01 08/07/[address] [place] [address] documented as of this encounter
--- OUTSIDE RECORDS SUMMARY | 2022-01-29 17:53 | XMS_ITS | Encounter Summary ---
:1960 Author Organization [employer] Address [address] [place] [address] Care Team Providers Name Role Phone Olamide Rodney MD Primary Care Provider Encounter Details Date Type Department Care Team Description 01/01/2007 PN Conversion Only [facility] [address] [place] [address] Social History Tobacco Use Types Packs/Day Years [...] Associated Diagnosis Comme nts MM MAMMOGRAM Routine 01/01/2007 3:38 PM Results f or this SCREENING BILAT W CDT procedure are in CAD the results section. documented in this encounter Results MM Mammogram Screening Bilat W CAD (01/01/2007 3:38 PM CDT) Anatomical Region Laterality Modality Breast Bilateral Mammography Specimen (Source) Anatomical Location Collection Method / Collectio n Time Received Time / Laterality Volume Impressions 01/05/2007 2:01 PM CDT : BILATERAL BREASTS - Category 1 Negative, no evidence of malignancy. Nor mal interval follow-up is recommended in 12 months. OVERALL ASSESSMENT - NEGATIVE END OF IMPRESSION Dictating DERECK DALY RADIOLOGIST Narrative 01/05/2007 2:01 PM CDT Comparison is made to films from 10/07/2005 (bilateral). ??There is no significant interval change. Bilateral Breast Findings: There are scattered fibroglandular densi ties. ??No significant masses, calcifications or other abnormalities ar e seen. Procedure Note Dereck Catalan - 08/29/2016Formattin g of this note might be different from the original. Comparison is made to films from 006 (bilateral). There is no significant interval change. Bilateral Breast Findings: There are scattered fibroglandular densi ties. No significant masses, calcifications or other abnormalities ar e seen. IMPRESSION : BILATERAL BREASTS - Category 1 Negative, no evidence of malignancy. Nor mal interval follow-up is recommended in 12 months. OVERALL ASSESSMENT - NEGATIVE END OF IMPRESSION Dictating DERECK DALY RADIOLOGIST Danni Cramer MD RAD SHERYL documented in this encounter Visit Diagnoses Not on filedocumented in this encounter Care Teams Lining Cutter Relationship Specialty Start Date End Date Olamide Rodney MD PCP - General 09/25/10 01/11/21 [address] [place] [address] documented as of this encounter
--- OUTSIDE RECORDS SUMMARY | 2022-01-29 17:53 | XMS_ITS | Encounter Summary ---
:1960 Author Organization [employer] Address [address] [place] [address] Care Team Providers Name Role Phone Danielle Bender MD Primary Care Provider Encounter Details Date Type Department Care Team Description 10/02/2005 Correspondence External to External, [place] [address] Social History Tobacco Use Types Packs/Day Years Used Date Smoking Tobacco: Never Alcohol Use Standard Drinks/Week Comments Yes 0 (1 standard drink = 0.6 oz pure alcoho l) mod Sex Assigned at Date Recorded Not on file documented as of this encounter Progress Notes External, Provider - 10/02/2005 12:00 AM CDT documented in this encounter Plan of Treatment Not on filedocumented as of this encounter Visit Diagnoses Not on filedocumented in this encounter Care Teams Supply Tech Relationship Specialty Start Date End Date Danielle Bender MD PCP - General 04/09/01 08/07/[address] [place] [address] documented as of this encounter
--- OUTSIDE RECORDS SUMMARY | 2022-01-29 17:53 | XMS_ITS | Encounter Summary ---
:1960 Author Organization [employer] Address [address] [place] [address] Care Team Providers Name Role Phone Olamide Rodney MD Primary Care Provider Encounter Details Date Type Department Care Team Description 09/29/2006 PN Conversion Only [facility] [address] [place] [address] Social History Tobacco Use Types Packs/Day Years Used Date Smoking Tobacco: Never Alcohol Use Standard Drinks/Week Comments Yes 0 (1 standard drink = 0.6 oz pure alcoho l) mod Sex Assigned at Date Recorded Not on file documented as of this encounter Plan of Treatment Not on filedocumented as of this encounter Visit Diagnoses Not on filedocumented in this encounter Care Teams Sales Product Manager Relationship Specialty Start Date End Date Olamide Rodney MD PCP - General 09/25/10 01/11/21 [address] [place], [place] [address] documented as of this encounter
--- OUTSIDE RECORDS SUMMARY | 2022-01-29 17:53 | XMS_ITS | Encounter Summary ---
:1960 Author Organization [employer] Address [address] [place] [address] Care Team Providers Name Role Phone Olamide Rodney MD Primary Care Provider Encounter Details Date Type Department Care Team Description 05/25/2010 Office Visit [facility] [address] [facility] [address] [place] [address] [place] [address] Social History Tobacco Use Types Packs/Day Years Used Date Smoking Tobacco: Never Alcohol Use Standard Drinks/Week Comments Yes 0 (1 standard drink = 0.6 oz pure alcoho l) mod Sex Assigned at Date Recorded Not on file documented as of this encounter Last Filed Vital Signs Vital Sign Reading Time Taken Comments Blood Pressure 170/98 05/25/2010 3:07 PM SHUTTLELESS LOOM WEAVER Pulse 80 05/25/2010 3:07 PM SHUTTLELESS LOOM WEAVER Temperature 36.8 ??C (98.2 ??F) 05/25/2010 3:07 PM ORAL C: 3 6.8 C SHUTTLELESS LOOM WEAVER Respiratory Rate 20 05/25/2010 3:07 PM SHUTTLELESS LOOM WEAVER Oxygen Saturation 99% 05/25/2010 3:07 PM SHUTTLELESS LOOM WEAVER Inhaled Oxygen Concentration - - Weight - - Height - - Body Mass Index - - documented in this encounter Progress Notes Puneet Carlton MD - 05/25/2010 12:01 AM CST NAME: PATY LLAMAS MR#: [id number] ACCT: [id number] VISIT: [id number] DICTATING CLINICIAN: Puneet Carlton MD CONFIRM #: [id number] LOC: 520 CLINIC PROGRESS NOTE DATE OF VISIT: 05/25/2010 : 1960 SUBJECTIVE: The patient was at [facility] today for a sore throat and had a negative strep screen, and she has had a low-grade sore throat off and on for 10 days, but she thinks it is improving and is not coughing up or blowing out thick mucus, and she has also not had a headache or fever or vomiting. She took Robitussin this morning and also some last night, and she says she has not had a cold in 6 years and does not normally take that. They thought her blood pressure was in the 180s over 90s although it sounds like they used a smaller cuff. She said she has felt more tense today and also had a couple of Diet Cokes this morning. She said her blood pressure usually runs 120/80, which is where it was when she had her physical last year. 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 PAST MEDICAL HISTORY: Also negative for hypertension. FAMILY HISTORY: Also negative for hypertension. ALLERGIES: She denies allergies to medicines and is 49 years of age. CURRENT MEDICATIONS: Her only other medicine is QVAR to be taken p.r.n. They admitted she felt a little panicky when she was at the [facility], and that was 3-1/2 hours ago, and she feels better now. OBJECTIVE: VITAL SIGNS: Temp 98.2. Pulse 80. Respirations 20. O2 sat 99%. In triage her BP was 170/98, and she does have a fairly large arm, and we checked her blood pressure with a large cuff here, which was nicely down at 142/88. HEENT: Thin nasal drainage is noted. LUNGS: Clear. HEART: Sounds normal. ABDOMEN: Nontender. EXTREMITIES: Show no edema. At this time we discussed further workup, including EKG, creatinine, etc. here, which she refused, but she agrees to very close followup and to have a visit with her doctor in the very near future on this, as well. ASSESSMENT: 1. Elevated blood pressure reading, probably secondary to the recent infection as well as stress as well as the medication she was taking and caffeine. 2. Mild upper respiratory infection. PLAN: Again, she wants to just use some symptomatic treatment and plain Robitussin DM without decongestants, and she does have a nurse at her work who can check her blood pressure. If she develops any other symptoms or if her blood pressure gets to 170/100 or above, she agrees to be seen immediately. She is also going to decrease caffeine and decrease salt. She is also going to set up a followup physical exam with her regular doctor within the next 2 weeks for a recheck and followup on this, and she agrees to all of the above. If any other symptoms or problems or elevated pressure, she can also come back here immediately, which she agrees to. This was discussed in detail with her today. WDL:DUANE C: CONFIRM #: [id number] TLELESS LOOM WEAVER documented in this encounter Plan of Treatment Not on filedocumented as of this encounter Visit Diagnoses Not on filedocumented in this encounter Care Teams Driver Helper Relationship Specialty Start Date End Date Olamide Rodney MD PCP - General 09/25/10 01/11/21 [address] [place] [address] documented as of this encounter
--- OUTSIDE RECORDS SUMMARY | 2022-01-29 17:53 | XMS_ITS | Encounter Summary ---
:1960 Author Organization [facility] Address [address] [place] [address] Care Team Providers Name Role Phone Danielle Bender MD Primary Care Provider Encounter Details Date Type Department Care Team Description 11/13/2004 Office Visit [facility] KENIA Deleon OF Gastroenterology Ramon Batres MD COLON W/O BLEED [address] [facility] [address] [place] [address] [place], [place] [phone] [id number] Social History Tobacco Use Types Packs/Day Years Used Date Smoking Tobacco: Never Alcohol Use Standard Drinks/Week Comments Yes 0 (1 standard drink = 0.6 oz pure alcoho l) mod Sex Assigned at Date Recorded Not on file documented as of this encounter Progress Notes Ramon Deleon - 11/13/2004 12:00 AM CDT Ramon Deleon - 11/13/2004 12:00 AM CDT NAT Ramon Deleon - 11/13/2004 12:00 AM CDT Ramon Deleon - 11/13/2004 12:00 AM CDT Ramon Deleon - 11/13/2004 12:00 AM CDT Ramon Deleon - 11/13/2004 12:00 AM CDT documented in this encounter Plan of Treatment Not on filedocumented as of this encounter Visit Diagnoses Diagnosis Diverticulosis of colon (without mention of hemorrhage) documented in this encounter Care Teams Window Glazier Helper Relationship Specialty Start Date End Date Danielle Bender MD PCP - General 04/09/01 08/07/[address] [place] [address] documented as of this encounter
--- OUTSIDE RECORDS SUMMARY | 2022-01-29 17:53 | XMS_ITS | Encounter Summary ---
:1960 Author Organization [facility] Address [address] [place] [address] Care Team Providers Name Role Phone Olamide Rodney MD Primary Care Provider Encounter Details Date Type Department Care Team Description 08/08/2010 PN Conversion Only [place] [facility] N Olamide Rodney, [address] [place] [address] [address] [place] [address] (Wo rk) Social History Tobacco [...] Date/Time Associated Comments Diagnosis ANATOMICAL PATH Routine 08/08/2010 12:26 Results for this LIQUID BASED PM VACCINE KEY CUSTOMER LEADER procedure are i n the results section. ALBUMIN/CREAT RATIO Routine 08/08/2010 11:05 Resu lts for this AM VACCINE KEY CUSTOMER LEADER procedure are i n the results section. IRON BINDING CAPACITY Routine 08/08/2010 11:03 Re sults for this (INCL IRON) AM VACCINE KEY CUSTOMER LEADER procedure are i n the results section. VITAMIN B1, BLOOD Routine 08/08/2010 11:03 Result s for this AM VACCINE KEY CUSTOMER LEADER procedure are i n the results section. COPPER, SERUM Routine 08/08/2010 11:03 Results fo r this AM VACCINE KEY CUSTOMER LEADER procedure are i n the results section. GLUCOSE Routine 08/08/2010 11:03 Results for this AM VACCINE KEY CUSTOMER LEADER procedure are i n the results section. THYROID STIMULATING Routine 08/08/2010 11:03 Resu lts for this HORMONE AM VACCINE KEY CUSTOMER LEADER procedure are i n the results section. VITAMIN B6 Routine 08/08/2010 11:03 Results for this AM VACCINE KEY CUSTOMER LEADER procedure are i n the results section. LIPID PANEL AND Routine 08/08/2010 11:03 Results for this DIRECT LDL(IF NEEDED) AM VACCINE KEY CUSTOMER LEADER proced ure are in the results section. VITAMIN D 25-HYDROXY, Routine 08/08/2010 11:03 Re sults for this TOTAL AM VACCINE KEY CUSTOMER LEADER procedure are i n the results section. INTACT PTH Routine 08/08/2010 11:03 Results for this AM VACCINE KEY CUSTOMER LEADER procedure are i n the results section. CREATININE / GFR Routine 08/08/2010 11:03 Results for this AM VACCINE KEY CUSTOMER LEADER procedure are i n the results section. COMPLETE BLOOD Routine 08/08/2010 11:03 Results f or this COUNT-W/DIFF AM VACCINE KEY CUSTOMER LEADER procedure are i n the results section. DIFFERENTIAL Routine 08/08/2010 11:03 Results for this AM VACCINE KEY CUSTOMER LEADER procedure are i n the results section. ELECTROLYTE PANEL Routine 08/08/2010 11:03 Result s for this AM VACCINE KEY CUSTOMER LEADER procedure are i n the results section. VIT B12 & FOLATE Routine 08/08/2010 11:03 Results for this AM VACCINE KEY CUSTOMER LEADER procedure are i n the results section. MAGNESIUM Routine 08/08/2010 11:03 Results for this AM VACCINE KEY CUSTOMER LEADER procedure are i n the results section. FERRITIN Routine 08/08/2010 11:03 Results for this AM VACCINE KEY CUSTOMER LEADER procedure are i n the results section. HGB A1C Routine 08/08/2010 11:03 Results for this AM VACCINE KEY CUSTOMER LEADER procedure are i n the results section. ALT (SGPT) Routine 08/08/2010 11:03 Results for this AM VACCINE KEY CUSTOMER LEADER procedure are i n the results section. AST Routine 08/08/2010 11:03 Results for this AM VACCINE KEY CUSTOMER LEADER procedure are i n the results section. PHOSPHORUS Routine 08/08/2010 11:03 Results for this AM VACCINE KEY CUSTOMER LEADER procedure are i n the results section. CALCIUM Routine 08/08/2010 11:03 Results for this AM VACCINE KEY CUSTOMER LEADER procedure are i n the results section. BILIRUBIN, TOTAL Routine 08/08/2010 11:03 Results for this AM VACCINE KEY CUSTOMER LEADER procedure are i n the results section. BILI - DIRECT Routine 08/08/2010 11:03 Results fo r this AM VACCINE KEY CUSTOMER LEADER procedure are i n the results section. ALKALINE PHOSPHATASE, Routine 08/08/2010 11:03 Re sults for this TOTAL AM VACCINE KEY CUSTOMER LEADER procedure are i n the results section. ALBUMIN Routine 08/08/2010 11:03 Results for this AM VACCINE KEY CUSTOMER LEADER procedure are i n the results section. documented in this encounter Results Pap Smear (08/08/2010 12:26 PM VACCINE KEY CUSTOMER LEADER) P athologist Signature Pap Smear SEE TEXT No normal HP CONVERSION range Comment: Final GYNECOLOGICAL CYTOLOGY REPORT Pathology #: [id number] ?Date Obta ined: 08/08/2010 ? Date Received: 08/09/2010 INTERPRETATION/RESULTS: Negative for Intraepithelial Lesion or M alignancy Endometrial cells are present. Endometri al cells after age forty, particularly out of phase or after menop ause may be associated with benign endometrium, hormonal alterations , and less commonly, endometrial/uterine abnormalities. Clini pushpa correlation is recommended. SPECIMEN ADEQUACY: Satisfactory for Evaluation. ??No endoce rvical cells/transformation zone component present; patient is postmenopa usal. Verified on 08/13/2010 ??by JANAY VIEYRA MD (electronic signature) CLINICAL NOTES: ?Abnormal bleeding: yes, LMP: no t stated. SPECIMEN TYPE: ? CERVICAL WITH REFLEX TO HPV IF CUS ?* End of Report Specimen (Source) Anatomical Collection Method Collection Time Re ceived Time Location / / Volume Laterality 08/08/2010 12:26 PM VACCINE KEY CUSTOMER LEADER Olamide Rodney MD LAB_1 Performing Organization Address City/State/ZIP Code Phon e Number HP CONVERSION Microalb/Creat Ratio (08/08/2010 11:05 AM VACCINE KEY CUSTOMER LEADER) Analysis Performed At Patho logist Time Signature Microalbumin <6.0 mg/L HP CONVERSION Urine U Creat Random 31 mg/dL HP CONVERSION Microalbumin/Crea <10.0 0.0 - 30.0 HP CONVERSI ON tinine Ratio Specimen (Source) Anatomical Collection Method Collection Time Re ceived Time Location / / Volume Laterality 08/08/2010 11:05 AM VACCINE KEY CUSTOMER LEADER Olamide Rodney MD LAB_1 Performing Organization Address City/State/ZIP Code Phon e Number HP CONVERSION Magnesium (08/08/2010 11:03 AM VACCINE KEY CUSTOMER LEADER) athologist Signature Magnesium 2.2 1.5 - 2.4 HP CONVERSION mg/dL Specimen (Source) Anatomical Collection Method Collection Time Re ceived Time Location / / Volume Laterality 08/08/2010 11:03 AM VACCINE KEY CUSTOMER LEADER Olamide Rodney MD LAB_1 Performing Organization Address City/State/ZIP Code Phon e Number HP CONVERSION Intact PTH (08/08/2010 11:03 AM VACCINE KEY CUSTOMER LEADER) athologist Signature PTH 80 10 - 100 HP CONVERSION pg/mL Specimen (Source) Anatomical Collection Method Collection Time Re ceived Time Location / / Volume Laterality 08/08/2010 11:03 AM VACCINE KEY CUSTOMER LEADER Olamide Rodney MD LAB_1 Performing Organization Address [facility] Code Phon e Number HP CONVERSION VITAMIN B1 (08/08/2010 11:03 AM VACCINE KEY CUSTOMER LEADER) athologist Signature Vitamin B1 108 70 - 180 HP CONVERSION nmol/L Comment: TEST INFORMATION: Vitamin B1, Whole Bloo d The concentration of thiamine diphosphat e (TDP), the primary active form of vitamin B1, is me asured in this assay. Approximately 90% of vitamin B1 p resent in whole blood is TDP. Thiamine and thiamine mono phosphate, which comprise the remaining 10%, are not danielle ured. Performed at [facility] [address] [place] [address] 8 Specimen (Source) Anatomical Collection Method Collection Time Re ceived Time Location / / Volume Laterality 08/08/2010 11:03 AM VACCINE KEY CUSTOMER LEADER Olamide Rodney MD LAB_1 Performing Organization Address [facility]/ZIP Code Phon e Number HP CONVERSION VITAMIN B6 (08/08/2010 11:03 AM VACCINE KEY CUSTOMER LEADER) athologist Signature Pyridox 20 5 - 50 HP CONVERSION Phosphate mcg/L Comment: Performed at [facility] [employer] [address] [place] [address] Specimen (Source) Anatomical Collection Method Collection Time Re ceived Time Location / / Volume Laterality 08/08/2010 11:03 AM VACCINE KEY CUSTOMER LEADER Olamide Rodney MD LAB_1 Performing Organization Address [facility] Phon e Number HP CONVERSION COPPER, SERUM (08/08/2010 11:03 AM VACCINE KEY CUSTOMER LEADER) athologist Signature Copper, Serum 146 80 - 155 HP CONVERSION ug/dL Comment: TEST INFORMATION: Copper, Serum Serum copper may be elevated with infect ion, inflammation, stress, copper supplementation, oral con traceptives, and . Concentrations are 2-3 times normal in the third trimester of . Copper may be lo wered with corticosteroids, zinc, malnutrition and malabsorption. Performed at [facility] [address] [place] [address]10 8 Specimen (Source) Anatomical Collection Method Collection Time Re ceived Time Location / / Volume Laterality 08/08/2010 11:03 AM VACCINE KEY CUSTOMER LEADER Olamide Rodney MD LAB_1 Performing Organization Address [facility] Phon e Number HP CONVERSION Differential (08/08/2010 11:03 AM VACCINE KEY CUSTOMER LEADER) athologist Signature Absolute 1.9 1.8 - 8.0 HP CONVERSION Neutrophils k/cmm Absolute 2.2 1.1 - 4.0 HP CONVERSION Lymphocytes k/cmm Absolute 0.3 0.2 - 0.8 HP CONVERSION Monocytes k/cmm Absolute 0.1 0.0 - 0.5 HP CONVERSION Eosinophils k/cmm Absolute 0.0 0.0 - 0.2 HP CONVERSION Basophils k/cmm Specimen (Source) Anatomical Collection Method Collection Time Re ceived Time Location / / Volume Laterality 08/08/2010 11:03 AM VACCINE KEY CUSTOMER LEADER Olamide Rodney MD LAB_1 Performing Organization Address [facility] Code Phon e Number HP CONVERSION Vitamin D 25-Hydroxy, Total (08/08/2010 11:03 AM VACCINE KEY CUSTOMER LEADER) athologist Signature Vitamin D 25 Oh 30 20 - 80 HP CONVERSION ng/mL Comment: Deficiency = <20 Adequate ??= 20-29 Preferred = 30-50 Uncertain safety = 51-80 High = >80 Specimen (Source) Anatomical Collection Method Collection Time Re ceived Time Location / / Volume Laterality 08/08/2010 11:03 AM VACCINE KEY CUSTOMER LEADER Olamide Rodney MD LAB_1 Performing Organization Address [facility] Code Phon e Number HP CONVERSION (ABNORMAL) Hemogram/Plts/Diff (08/08/2010 11:03 AM VACCINE KEY CUSTOMER LEADER) Patholo gist Method Time Signature White Blood Cell 4.5 3.8 - HP CONVERSION Count 11.0 k/cmm Red Blood Cell 3.96 3.70 - HP CONVERSION Count 5.20 m/cmm Hemoglobin 14.2 11.8 - HP CONVERSION 15.5 g/dL Hematocrit 40.7 35.0 - HP CONVERSION 46.0 % Mean Corpuscular 102.8 (H) 80.0 - HP CONVERSION Volume 100.0 fL RDW 12.4 11.0 - HP CONVERSION 15.0 % Platelet Count 206 140 - 450 HP CONVERSION k/cmm Specimen (Source) Anatomical Collection Method Collection Time Re ceived Time Location / / Volume Laterality 08/08/2010 11:03 AM VACCINE KEY CUSTOMER LEADER Olamide Rodney MD LAB_1 Performing Organization Address [facility]/ZIP Code Phon e Number HP CONVERSION (ABNORMAL) Vit B12 & Folate (08/08/2010 11:03 AM VACCINE KEY CUSTOMER LEADER) Analysis Performed At Patho logist Time Signature Vitamin B12 1,061 (H) 211 - 911 HP CONVERSION pg/dL Serum Folate >24.0 >5.9 ng/mL HP CONVERSION Specimen (Source) Anatomical Collection Method Collection Time Re ceived Time Location / / Volume Laterality 08/08/2010 11:03 AM VACCINE KEY CUSTOMER LEADER Olamide Rodney MD LAB_1 Performing Organization Address [facility]/ZIP Code Phon e Number HP CONVERSION THYROID STIMULATING HORMONE (08/08/2010 11:03 AM VACCINE KEY CUSTOMER LEADER) athologist Signature Thyroid 2.33 0.20 - HP CONVERSION Stimulating 4.50 mIU/L Hormone Specimen (Source) Anatomical Collection Method Collection Time Re ceived Time Location / / Volume Laterality 08/08/2010 11:03 AM VACCINE KEY CUSTOMER LEADER Olamide Rodney MD LAB_1 Performing Organization Address City/State/ZIP Code Phon e Number HP CONVERSION IRON BINDING CAPACITY (INCL IRON) (08/08/2010 11:03 AM VACCINE KEY CUSTOMER LEADER) athologist Signature Iron, Serum 112 50 - 165 HP CONVERSION ug/dL Iron Binding 330 250 - 450 HP CONVERSION Capacity ug/dL Iron Saturation 34 20 - 55 % HP CONVERSION Specimen (Source) Anatomical Collection Method Collection Time Re ceived Time Location / / Volume Laterality 08/08/2010 11:03 AM VACCINE KEY CUSTOMER LEADER Olamide Rodney MD LAB_1 Performing Organization Address City/State/ZIP Code Phon e Number HP CONVERSION Hgb A1c (08/08/2010 11:03 AM VACCINE KEY CUSTOMER LEADER) athologist Signature HGB A1C 5.4 0.0 - 6.0 % HP CONVERSION Specimen (Source) Anatomical Collection Method Collection Time Re ceived Time Location / / Volume Laterality 08/08/2010 11:03 AM VACCINE KEY CUSTOMER LEADER Olamide Rodney MD LAB_1 Performing Organization Address City/State/ZIP Code Phon e Number HP CONVERSION Ferritin (08/08/2010 11:03 AM VACCINE KEY CUSTOMER LEADER) athologist Signature Ferritin Serum 90 10 - 291 HP CONVERSION ng/mL Specimen (Source) Anatomical Collection Method Collection Time Re ceived Time Location / / Volume Laterality 08/08/2010 11:03 AM VACCINE KEY CUSTOMER LEADER Olamide Rodney MD LAB_1 Performing Organization Address City/State/ZIP Code Phon e Number HP CONVERSION Lipid Panel and Direct LDL(If Needed) (08/08/2010 11:03 AM VACCINE KEY CUSTOMER LEADER) [facility] gist Method Time Signature Cholesterol 167 0 - 200 HP CONVERSION mg/dL Triglycerides 104 0 - 149 HP CONVERSION mg/dL HDL Cholesterol 70 >39 mg/dL HP CONVERSION Cholesterol/HDL 2.4 No normal HP CONVERSION Ratio Screen range LDL Calculated 76 19 - 130 HP CONVERSION mg/dL Length Of Fast 14 No normal HP CONVERSION range Specimen (Source) Anatomical Collection Method Collection Time Re ceived Time Location / / Volume Laterality 08/08/2010 11:03 AM VACCINE KEY CUSTOMER LEADER Olamide Rodney MD LAB_1 Performing Organization Address City/State/ZIP Code Phon e Number HP CONVERSION Electrolyte Panel (08/08/2010 11:03 AM VACCINE KEY CUSTOMER LEADER) athologist Signature Sodium 139 137 - 147 HP CONVERSION mEq/L Potassium 3.9 3.5 - 5.2 HP CONVERSION mEq/L Chloride 102 98 - 110 HP CONVERSION mEq/L Bicarbonate 30 23 - 33 HP CONVERSION mmol/L Specimen (Source) Anatomical Collection Method Collection Time Re ceived Time Location / / Volume Laterality 08/08/2010 11:03 AM VACCINE KEY CUSTOMER LEADER Olamide Rodney MD LAB_1 Performing Organization Address City/State/ZIP Code Phon e Number HP CONVERSION Phosphorus (08/08/2010 11:03 AM VACCINE KEY CUSTOMER LEADER) athologist Signature Phosphorus 3.6 2.5 - 4.5 HP CONVERSION Serum mg/dL Specimen (Source) Anatomical Collection Method Collection Time Re ceived Time Location / / Volume Laterality 08/08/2010 11:03 AM VACCINE KEY CUSTOMER LEADER Olamide Rodney MD LAB_1 Performing Organization Address City/State/ZIP Code Phon e Number HP CONVERSION GLUCOSE (08/08/2010 11:03 AM VACCINE KEY CUSTOMER LEADER) athologist Signature Lab Glucose 85 60 - 100 HP CONVERSION mg/dL Specimen (Source) Anatomical Collection Method Collection Time Re ceived Time Location / / Volume Laterality 08/08/2010 11:03 AM VACCINE KEY CUSTOMER LEADER Olamide Rodney MD LAB_1 Performing Organization Address [facility] Code Phon e Number HP CONVERSION Creatinine / GFR (08/08/2010 11:03 AM VACCINE KEY CUSTOMER LEADER) athologist Signature Creatinine 0.8 0.4 - 1.3 [...] ceived Time Location / / Volume Laterality 08/08/2010 11:03 AM VACCINE KEY CUSTOMER LEADER Olamide Rodney MD LAB_1 Performing Organization Address City/State/ZIP Code Phon e Number HP CONVERSION Calcium (08/08/2010 11:03 AM VACCINE KEY CUSTOMER LEADER) athologist Signature Calcium 9.4 8.5 - 10.5 HP CONVERSION mg/dL Specimen (Source) Anatomical Collection Method Collection Time Re ceived Time Location / / Volume Laterality 08/08/2010 11:03 AM VACCINE KEY CUSTOMER LEADER Olamide Rodney MD LAB_1 Performing Organization Address City/State/ZIP Code Phon e Number HP CONVERSION Bilirubin, Total (08/08/2010 11:03 AM VACCINE KEY CUSTOMER LEADER) athologist Signature Bilirubin Total 0.4 0.2 - 1.2 HP CONVERSION mg/dL Specimen (Source) Anatomical Collection Method Collection Time Re ceived Time Location / / Volume Laterality 08/08/2010 11:03 AM VACCINE KEY CUSTOMER LEADER Olamide Rodney MD LAB_1 Performing Organization Address City/State/ZIP Code Phon e Number HP CONVERSION Bilirubin, Direct (08/08/2010 11:03 AM VACCINE KEY CUSTOMER LEADER) athologist Signature Bilirubin, 0.1 0.0 - 0.4 HP CONVERSION Direct mg/dL Specimen (Source) Anatomical Collection Method Collection Time Re ceived Time Location / / Volume Laterality 08/08/2010 11:03 AM VACCINE KEY CUSTOMER LEADER Olamide Rodney MD LAB_1 Performing Organization Address City/State/ZIP Code Phon e Number HP CONVERSION AST (08/08/2010 11:03 AM VACCINE KEY CUSTOMER LEADER) [facility] gist Method Time Signature Aspartate 31 0 - 45 HP CONVERSION Aminotransferase U/L Specimen (Source) Anatomical Collection Method Collection Time Re ceived Time Location / / Volume Laterality 08/08/2010 11:03 AM VACCINE KEY CUSTOMER LEADER Olamide Rodney MD LAB_1 Performing Organization Address [facility]/ZIP Code Phon e Number HP CONVERSION ALT (SGPT) (08/08/2010 11:03 AM VACCINE KEY CUSTOMER LEADER) [facility] Time Signature Alanine 24 4 - 55 HP CONVERSION Aminotransferase U/L Specimen (Source) Anatomical Collection Method Collection Time Re ceived Time Location / / Volume Laterality 08/08/2010 11:03 AM VACCINE KEY CUSTOMER LEADER Olamide Rodney MD LAB_1 Performing Organization Address [facility]/ZIP Code Phon e Number HP CONVERSION Alkaline Phosphatase, Total (08/08/2010 11:03 AM VACCINE KEY CUSTOMER LEADER) athologist Signature Alk Phos 80 25 - 135 U/L HP CONVERSION Specimen (Source) Anatomical Collection Method Collection Time Re ceived Time Location / / Volume Laterality 08/08/2010 11:03 AM VACCINE KEY CUSTOMER LEADER Olamide Rodney MD LAB_1 Performing Organization Address City/State/ZIP Code Phon e Number HP CONVERSION Albumin (08/08/2010 11:03 AM VACCINE KEY CUSTOMER LEADER) athologist Signature Albumin 4.5 3.4 - 5.0 HP CONVERSION g/dL Specimen (Source) Anatomical Collection Method Collection Time Re ceived Time Location / / Volume Laterality 08/08/2010 11:03 AM VACCINE KEY CUSTOMER LEADER Olamide Rodney MD LAB_1 Performing Organization Address [facility]/ZIP [facility] Phon e Number HP CONVERSION documented in this encounter Visit Diagnoses Not on filedocumented in this encounter Care Teams Fire Manager Relationship Specialty Start Date End Date Olamide Rodney MD PCP - General 09/25/10 01/11/21 [address] [place] [address] documented as of this encounter
--- OUTSIDE RECORDS SUMMARY | 2022-01-29 17:53 | XMS_ITS | Encounter Summary ---
:1960 Author Organization [facility] Address [address], [place] [address] Care Team Providers Name Role Phone Olamide Rodney MD Primary Care Provider Encounter Details Date Type Department Care Team Description 01/22/2008 Office Visit [facility] [place] [address] [place] [address] Social History Tobacco Use Types Packs/Day Years Used Date Smoking Tobacco: Never Alcohol Use Standard Drinks/Week Comments Yes 0 (1 standard drink = 0.6 oz pure alcoho l) mod Sex Assigned at Date Recorded Not on file documented as of this encounter Last Filed Vital Signs Vital Sign Reading Time Taken Comments Blood Pressure 162/87 01/22/2008 3:30 PM CDT Pulse 58 01/22/2008 3:30 PM CDT Temperature 36.3 ??C (97.3 ??F) 01/22/2008 3:30 PM CDT C: 36 .3 C Respiratory Rate 16 01/22/2008 3:30 PM CDT Oxygen Saturation - - Inhaled Oxygen Concentration - - Weight - - Height - - Body Mass Index - - documented in this encounter Progress Notes Celestina Brewer MD - 01/22/2008 12:01 AM CDT Progress Notes signed by Celestina Brewer MD at 01/22/08 8589 Author: Celestina Brewer MD Service: (none) Author Type: Physician Filed: 10/13/10 0546 Note Time: 01/22/08 0001 Status: Signed Deburring And Tooling Machine Operator: Celestina [place] MD (Physician) SUBJECTIVE: Ms. Stovall enters with complaint of itchy bumpy rash on the left lower abdominal wall. This is similar to a rash she had two years ago, which was herpes zoster. She does not tolerate acyclovir tablets and requires acyclovir suspension. She had a tummy tuck, which ended up causing denervation of her lower abdominal wall. She does not get the intense of burning pain typically associated with herpes zoster. We talked about the recommendation to use prednisone to prevent postherpetic neuralgia. Since she has no feeling in the area, we decided to forego that. Adverse Drug Reactions: Reviewed in LastWord. Medications: Reviewed. See Medication List in LastWord. OBJECTIVE: Vital Signs : Reviewed; See Flowsheet Charting in [employer]. Temperature: 97.4. Pulse: 58. Respiratory rate: 16. BP: 162/87. Ms. Stovall does have a rash consistent with herpes zoster along the left lower abdominal wall, in the inguinal area. ASSESSMENT: Herpes zoster. PLAN: Acyclovir 200 mg/5ml suspension 20 mL 5 times a day x 1 week. Recheck as needed. Was discharged ambulatory and in stable condition. *SH~DNS~SOAP documented in this encounter Plan of Treatment Not on filedocumented as of this encounter Visit Diagnoses Not on filedocumented in this encounter Care Teams Storm Sash Maker Relationship Specialty Start Date End Date Olamide Rodney MD PCP - General 09/25/10 01/11/21 [address] [place] [address] documented as of this encounter
--- OUTSIDE RECORDS SUMMARY | 2022-01-29 17:53 | XMS_ITS | Encounter Summary ---
:1960 Author Organization [facility] Address [address] [place] [address] Care Team Providers Name Role Phone Danielle Bender MD Primary Care Provider Encounter Details Date Type Department Care Team Description 11/06/2004 [facility] [place] [facility], SCREEN ING [facility] Mammography II NEOPL-OTHER (Primary [address] [place], [place] [address] Social History Tobacco Use Types Packs/Day Years Used Date Smoking Tobacco: Never Alcohol Use Standard Drinks/Week Comments Yes 0 (1 standard drink = 0.6 oz pure alcoho l) mod Sex Assigned at Date Recorded Not on file documented as of this encounter Procedure Notes Dominick Ramirez - 11/06/2004 12:00 AM CDTAssociated Order(s): MAMMOGRAM, SCREENING EXAMINATION: BILATERAL MAMMOGRAM, 11/06/2004: ACR BIRADS CATEGORY 2 - BENIGN FINDING(S). The patient has lost 160 pounds total since the last one year. Exam was compared to July 22, 2002 and September 15, 2003. There has been reduction in breast size bilaterally since previous exams consistent with patient's weight loss. Irregularly dense breast parenchyma is present. IMPRESSION: There is no mammographic evidence of malignancy. Dominick Ramirez MD A cc: Radiology Danielle Bender MD documented in this encounter Plan of Treatment Not on filedocumented as of this encounter Procedures Procedure Name Priority Date/Time Associated Diagnosis Comme nts MAMMOGRAM, SCREENING Routine 11/06/2004 Screening Mamm-Mailg Results for this Neopl-Other procedure are i n the results section . documented in this encounter Results MAMMOGRAM, SCREENING (11/06/2004) Anatomical Region Laterality Modality Breast Other Transcriptions Dominick Ramirez - 11/06/2004 12:00 AM CDTEXAMINATION: BILATERAL MAMMOGRAM, 11/06/2004: ACR BIRADS CATEGORY 2 - BENIGN FINDING(S ). The patient has lost 160 pounds total si nce the last one year. Exam was compared to July 22, 2002 and August [id number]. There has been reduction in breast size bilaterally since previou s exams consistent with patient's weight loss. Irregularly dense breast pa renchyma is present. IMPRESSION: There is no mammographic rosie dence of malignancy. Dominick Ramirez MD A cc: Radiology Danielle Bender MD Danielle Bender MD RAD_BI documented in this encounter Visit Diagnoses Diagnosis Other screening mammogram - Primary documented in this encounter Care Teams Installation Manager Relationship Specialty Start Date End Date Danielle Bender MD PCP - General 04/09/01 08/07/[address] [place] [address] documented as of this encounter
--- OUTSIDE RECORDS SUMMARY | 2022-01-29 17:53 | XMS_ITS | Encounter Summary ---
:1960 Author Organization [facility] Address [address] [place] [address] Care Team Providers Name Role Phone Danielle Bender MD Primary Care Provider Encounter Details Date Type Department Care Team Description 10/07/2005 Office Visit External to Unknown, [facility] [address] [place], [place] [address] (Wo rk) Social History Tobacco Use Types Packs/Day Years Used Date Smoking Tobacco: Never Alcohol Use Standard Drinks/Week Comments Yes 0 (1 standard drink = 0.6 oz pure alcoho l) mod Sex Assigned at Date Recorded Not on file documented as of this encounter Procedure Notes External, Provider - 10/07/2005 12:00 AM CDTAssociated Order(s): MAMMOGRAM SC documented in this encounter Plan of Treatment Not on filedocumented as of this encounter Procedures Procedure Name Priority Date/Time Associated Diagnosis Comme nts MAMMOGRAM SC 10/07/2005 12:00 AM Results for this CDT procedure are i n the results section . BREAST IMAGING 10/07/2005 Results for t his procedure are i n the results section . documented in this encounter Results MAMMOGRAM SC (10/07/2005 12:00 AM CDT) Anatomical Region Laterality Modality Other Narrative 10/07/2005 12:00 AM CDT This result has an attachment that is no t available. Ordered by an unspecified provider. Transcriptions External, Provider - 10/07/2005 12:00 AM CDT Physician Unknown DUMMY/OTHER/AR documented in this encounter Visit Diagnoses Not on filedocumented in this encounter Care Teams Online Journalist Relationship Specialty Start Date End Date Danielle Bender MD PCP - General 04/09/01 08/07/10 [address] [facility] [address] [place] [address] documented as of this encounter
--- OUTSIDE RECORDS SUMMARY | 2022-01-29 17:53 | XMS_ITS | Encounter Summary ---
:1960 Author Organization [facility] Address [address] [place] [address] Care Team Providers Name Role Phone Olamide Rodney MD Primary Care Provider Encounter Details Date Type Department Care Team Description 08/07/2007 Office Visit [facility] [place] [address] [place] [address] Social History Tobacco Use Types Packs/Day Years Used Date Smoking Tobacco: Never Alcohol Use Standard Drinks/Week Comments Yes 0 (1 standard drink = 0.6 oz pure alcoho l) mod Sex Assigned at Date Recorded Not on file documented as of this encounter Last Filed Vital Signs Vital Sign Reading Time Taken Comments Blood Pressure 150/83 08/07/2007 11:33 AM C: [employer] CREMATORIUM OPERATOR Pulse 54 08/07/2007 11:33 AM CREMATORIUM OPERATOR Temperature 36.3 ??C (97.3 ??F) 08/07/2007 11:33 AM ORAL C: 36.3 C CREMATORIUM OPERATOR Respiratory Rate 16 08/07/2007 11:33 AM CREMATORIUM OPERATOR Oxygen Saturation - - Inhaled Oxygen Concentration - - Weight - - Height - - Body Mass Index - - documented in this encounter Progress Notes Maria E Brown MD - 08/07/2007 12:01 AM CST Progress Notes signed by Maria E Brown MD at 09/02/07 5558 Author: Maria E Brown MD Service: (none) Author Type: Physician Filed: 10/13/10 0038 Note Time: 08/07/07 0001 Status: Signed Chemicals Fermentation Operator: Maria E Brown MD (Physician) NAME: PATY LLAMAS MR#: [id number] ACCT: [id number] VISIT: [id number] DICTATING CLINICIAN: MARIA E BROWN MD JOB: [id number] LOC: 520 CLINIC PROGRESS NOTE DATE OF VISIT: 08/07/2007 SUBJECTIVE: This 46-year-old female comes in with kind of a vague complaint. She tells me she has been having intermittent pain in her right lower quadrant for the past 2 months, although later she tells me this has been going on for about a year but maybe more noticeable for the past 2 months. Patient has not been constant apparently. Has not had any obvious associated symptoms with it like vomiting, fevers, or chills. No URI symptoms. No vaginal discharge. Her apparently has had vasectomy. She does not feel that she might be . She has noticed that this pain is noted mostly after eating. No other relation to any other cause has bee noted. Denies any obvious heartburn. Denies any epigastric pain. Mostly pain has been in the right lower quadrant. She apparently did have a gastric bypass surgery 5 years ago, had a tummy tuck a year after that. She tells me she has had some numbness in her right lower side of the abdomen because of the surgery and she is concerned because she thinks that she cannot feel the pain well in this area. She just wants to make sure this is nothing serious and acute, although this has been going on for some time but she is concerned because this morning the pain felt sharp to her and a little different from the usual presentation of it. Again, no other associated symptoms. No urinary symptoms. When she feels the pain it can last about 2 hours. Her bowel movement has been normal, although sometimes she does get some constipation and sometimes she might get loose stools and mild diarrhea. PAST MEDICAL HISTORY: Above. MEDICATIONS: Reviewed in LastWord. ADR/ALLERGIES: NONE. OBJECTIVE: VS: BP: 150/83. P: 54. R: 16. Exam shows patient looking good very comfortable in no obvious pain at all. She walks very comfortable. She is mildly obese. LUNGS: Clear. CARDIOVASCULAR: Regular rhythm and rate, normal S1, S2. Oral mucosa is moist and throat looks normal. ABDOMEN: Obese. Scar of surgery noted in mid abdomen. Soft. No guarding or rebound. No obvious area of tenderness noted. She has minimal tenderness, which is very mild specific, on the right side of her umbilicus but no specific area of tenderness in right lower quadrant noted. ASSESSMENT: Pain, right lower abdomen, intermittent of long duration. PLAN: Her pain is not typical for any specific diagnosis and has been going on for a long time. As she relates it most to eating and happening after eating, I did not do a pelvic exam on her. I did a white count on her shows normal WBC, normal hemoglobin. UA is normal today. Abdominal x-ray flat and upright is nonspecific. Patient was told no obvious abnormality or active problem is found today. She basically needs to follow up in primary care clinic. She does not have any specific primary care physician and I advised her she needs to follow up anyway in primary care clinic and also she might need to follow up in gastroenterology clinic as this is showing some relation to eating. Meanwhile, she may check into emergency or urgent care if unusual worsening of her pain or any other related symptoms as noted. She agrees with the plan. For now, I would recommend symptomatic treatment and observation. [id number] C: 08/10/07 11:10 DOCUMENT: [id number] documented in this encounter Plan of Treatment Not on filedocumented as of this encounter Procedures Procedure Name Priority Date/Time Associated Diagnosis Comme nts XR ABD FLAT AND Routine 08/07/2007 2:20 PM Result s for this UPRIGHT CREMATORIUM OPERATOR procedure are i n the results section. documented in this encounter Results XR Abd Flat And Upright (08/07/2007 2:20 PM CREMATORIUM OPERATOR) Anatomical Region Laterality Modality Abdomen Other Specimen (Source) Anatomical Location Collection Method / Collectio n Time Received Time / Laterality Volume Narrative 08/07/2007 2:20 PM CREMATORIUM OPERATOR Vascular calcifications and surgical clips in the left upper quadrant. ??Nonspecific abdominal gas pa ttern with no evidence for free air or obstruction. [id number] Dictating ROOSEVELT COVINGTON MD Procedure Note Roosevelt Turner - 08/29/2016 Vascular calcifications and surgical cli ps in the left upper quadrant. Nonspecific abdominal gas batsheva cristian with no evidence for free air or obstruction. [id number] Dictating ROOSEVELT COVINGTON MD Maria E Brown MD RAD GD documented in this encounter Visit Diagnoses Not on filedocumented in this encounter Care Teams Creative Services Coordinator Relationship Specialty Start Date End Date Olamide Rodney MD PCP - General 09/25/10 01/11/21 [address] [place], [place] [address] documented as of this encounter
--- OUTSIDE RECORDS SUMMARY | 2022-01-29 17:53 | XMS_ITS | Encounter Summary ---
:1960 Author Organization [facility] Address [address] [place] [address] Care Team Providers Name Role Phone Olamide Rodney MD Primary Care Provider Encounter Details Date Type Department Care Team Description 08/10/2010 PN Conversion Only [facility] [address] [place] [address] Social History Tobacco Use Types Packs/Day Years Used Date Smoking Tobacco: Never Alcohol Use Standard Drinks/Week Comments Yes 0 (1 standard drink = 0.6 oz pure alcoho l) mod Sex Assigned at Date Recorded Not on file documented as of this encounter Plan of Treatment Not on filedocumented as of this encounter Procedures Procedure Name Priority Date/Time Associated Diagnosis Comme nts US PELVIC COMPLETE Routine 08/10/2010 2:28 PM Res ults for this W EV CIVIL ENGINEER LAND DEVELOPMENT procedure are i n the results section. documented in this encounter Results US Pelvic Complete W EV (08/10/2010 2:28 PM CIVIL ENGINEER LAND DEVELOPMENT) Anatomical Region Laterality Modality Pelvis Other Specimen (Source) Anatomical Location Collection Method / Collectio n Time Received Time / Laterality Volume Impressions 08/10/2010 2:28 PM CIVIL ENGINEER LAND DEVELOPMENT : Ill-defined endometrium measures upper normal for a premenopausal female. Dictating RAMIRO TAFOYA Radiologist Narrative 08/10/2010 2:28 PM CIVIL ENGINEER LAND DEVELOPMENT COMPARISON STUDY: ??None. FINDINGS: ??Both transabdominal and parson svaginal scanning were performed. ??The uterus appears within n ormal limits. ??The endometrial stripe is ill-defined and measures appro ximately 11-12 mm in maximum thickness. The ovaries appear within normal limits. ?? Both ovaries demonstrate normal vascular flow. ??There is no free fluid in the cul-de-sac. Procedure Note Ramiro Hills MD - 12/07/2015Formattin g of this note might be different from the original. COMPARISON STUDY: None. FINDINGS: Both transabdominal and transv aginal scanning were performed. The uterus appears within nor mal limits. The endometrial stripe is ill-defined and measures appro ximately 11-12 mm in maximum thickness. The ovaries appear within normal limits. Both ovaries demonstrate normal vascular flow. There is no free f luid in the cul-de-sac. IMPRESSION : Ill-defined endometrium measures upper normal for a premenopausal female. Dictating RAMIRO TAFOYA Radiologist Olamide Rodney MD [facility] documented in this encounter Visit Diagnoses Not on filedocumented in this encounter Care Teams Scuba Instructor Relationship Specialty Start Date End Date Olamide Rodney MD PCP - General 09/25/10 01/11/21 [address] [place] [address] documented as of this encounter
--- OUTSIDE RECORDS SUMMARY | 2022-01-29 17:53 | XMS_ITS | Encounter Summary ---
:1960 Author Organization [facility] Address [address] [place] [address] Care Team Providers Name Role Phone Olamide Rodney MD Primary Care Provider Encounter Details Date Type Department Care Team Description 03/29/2005 PN Conversion Only [facility] [address] [place] [address] Social History Tobacco Use Types Packs/Day Years Used Date Smoking Tobacco: Never Alcohol Use Standard Drinks/Week Comments Yes 0 (1 standard drink = 0.6 oz pure alcoho l) mod Sex Assigned at Date Recorded Not on file documented as of this encounter Plan of Treatment Not on filedocumented as of this encounter Visit Diagnoses Not on filedocumented in this encounter Care Teams Mixed Crop And Livestock Farmer Relationship Specialty Start Date End Date Olamide Rodney MD PCP - General 09/25/10 01/11/21 [address] [place], [place] [address] documented as of this encounter
--- OUTSIDE RECORDS SUMMARY | 2022-01-29 17:53 | XMS_ITS | Encounter Summary ---
:1960 Author Organization [facility] Address [address] [place] [address] Care Team Providers Name Role Phone Shira Rodney MD Primary Care Provider Reason for Visit Reason Comments Other Encounter Details Date Type Department Care Team Description 08/13/2010 Telephone [facility], Message Other [address] [place] [address] Social History Tobacco Use Types Packs/Day Years Used Date Smoking Tobacco: Never Alcohol Use Standard Drinks/Week Comments Yes 0 (1 standard drink = 0.6 oz pure alcoho l) mod Sex Assigned at Date Recorded Not on file documented as of this encounter Progress Notes Center, Message - 08/13/2010 3:28 PM CST X-Ray US Pelvic Incl Transvaginal results are available in LastWord. Created on 13Aug2010 3:28pm by DANIEL COX On 15Aug2010 10:27am SHIRA RODNEY wrote: left message to return my call, Acknowledged by SHIRA RODNEY on 10:27am On 16Aug2010 8:28am EFREN MANRIQUEZ wrote: Pt Paty returning call. Contact #[phone]-between 12:00 and 4:00. On 16Aug2010 4:06pm SHIRA RODNEY wrote: I called her, reviewed abn PAP, and US. next step is to see epic willow analyst. she will call for appt Acknowledged by SHIRA RODNEY on 4:06pm On 17Aug2010 11:15am EL ZAPATA wrote: noted Acknowledged by EL ZAPATA on 11:15am CIATE PROFESSOR OF ENGINEERING documented in this encounter Plan of Treatment Not on filedocumented as of this encounter Visit Diagnoses Not on filedocumented in this encounter Care Teams Generating Plant Superintendent Relationship Specialty Start Date End Date Shira Rodney MD PCP - General 09/25/10 01/11/21 [address] [place] [address] documented as of this encounter
--- OUTSIDE RECORDS SUMMARY | 2022-01-29 17:53 | XMS_ITS | Encounter Summary ---
:1960 Author Organization [facility] Address [address] [place] [address] Care Team Providers Name Role Phone Olamide Rodney MD Primary Care Provider Reason for Visit Reason Comments Other Encounter Details Date Type Department Care Team Description 03/13/2008 Telephone [facility] Randee Reed [address] [place] [address] Social History Tobacco Use Types Packs/Day Years Used Date Smoking Tobacco: Never Alcohol Use Standard Drinks/Week Comments Yes 0 (1 standard drink = 0.6 oz pure alcoho l) mod Sex Assigned at Date Recorded Not on file documented as of this encounter Progress Notes Randee Irizarry - 03/13/2008 9:13 AM CDT Phone Note filed by Randee Irizarry RN at 10/11/10629 Author: Randee Irizarry RN Service: (none) Author Type: Registered Nurse Filed: 10/11/10629 Note Time: 03/13/08912 Status: Signed Dry Heat Room Attendant: Randee Irizarry RN (Registered Nurse) Pt calling,states she has shingles back again. Was treated the beginnig of Jan. Wondering if she has to come back in or can get a Rx over the phone. Pt was treated in urgent care. They do not do follow up like this. Would require going back to get seen. Pt said okay. Will go to urgent care today. Call complete. Created on 13Mar2008 9:13am by RANDEE IRIZARRY RSAL PRINT INSPECTOR documented in this encounter Plan of Treatment Not on filedocumented as of this encounter Visit Diagnoses Not on filedocumented in this encounter Care Teams Flight Radio Officer Relationship Specialty Start Date End Date Olamide Rodney MD PCP - General 09/25/10 01/11/21 [address] [place] [address] documented as of this encounter
--- OUTSIDE RECORDS SUMMARY | 2022-01-29 17:53 | XMS_ITS | Encounter Summary ---
:1960 Author Organization [facility] Address [address] [place] [address] Care Team Providers Name Role Phone Olamide Rodney MD Primary Care Provider Encounter Details Date Type Department Care Team Description 08/08/2010 PN Conversion Only [facility] [address] [place] [address] Social History Tobacco Use Types Packs/Day Years Used Date Smoking Tobacco: Never Alcohol Use Standard Drinks/Week Comments Yes 0 (1 standard drink = 0.6 oz pure alcoho l) mod Sex Assigned at Date Recorded Not on file documented as of this encounter Plan of Treatment Not on filedocumented as of this encounter Visit Diagnoses Not on filedocumented in this encounter Care Teams Strategic Planning Analyst Relationship Specialty Start Date End Date Olamide Rodney MD PCP - General 09/25/10 01/11/21 [address] [place], [place] [address] documented as of this encounter
--- OUTSIDE RECORDS SUMMARY | 2022-01-29 17:53 | XMS_ITS | Encounter Summary ---
:1960 Author Organization [facility] Address [address] [place] [address] Care Team Providers Name Role Phone Olamide Rodney MD Primary Care Provider Encounter Details Date Type Department Care Team Description 05/25/2010 PN Conversion Only [facility] [address] [place] [address] Social History Tobacco Use Types Packs/Day Years Used Date Smoking Tobacco: Never Alcohol Use Standard Drinks/Week Comments Yes 0 (1 standard drink = 0.6 oz pure alcoho l) mod Sex Assigned at Date Recorded Not on file documented as of this encounter Plan of Treatment Not on filedocumented as of this encounter Visit Diagnoses Not on filedocumented in this encounter Care Teams Equine Intern Relationship Specialty Start Date End Date Olamide Rodney MD PCP - General 09/25/10 01/11/21 [address] [place], [place] [address] documented as of this encounter
--- OUTSIDE RECORDS SUMMARY | 2022-01-29 17:53 | XMS_ITS | Encounter Summary ---
:1960 Author Organization [facility] Address [address] [place] [address] Care Team Providers Name Role Phone Olamide Rodney MD Primary Care Provider Encounter Details Date Type Department Care Team Description 08/08/2010 PN Conversion Only [facility] [address] [place] [address] Social History Tobacco Use Types Packs/Day Years [...] Associated Diagnosis Comme nts MM MAMMOGRAM Routine 08/08/2010 9:13 AM Results f or this SCREENING BILAT W FINANCIAL ENGINEER procedure are in CAD the results section. documented in this encounter Results MM Mammogram Screening Bilat W CAD (08/08/2010 9:13 AM FINANCIAL ENGINEER) Anatomical Region Laterality Modality Breast Bilateral Mammography Specimen (Source) Anatomical Location Collection Method / Collectio n Time Received Time / Laterality Volume Narrative 08/08/2010 3:45 PM FINANCIAL ENGINEER Comparison is made to films from 01/01/2007 (bilateral). There is no significant interval change. Bilateral Breast Findings: There are scattered fibroglandular densi ties (11% - 50% fibroglandular). No significant masses, calcifications or other abnormalities are seen. IMPRESSION: BILATERAL BREASTS Negative, no evidence of malignancy. Nor mal interval follow-up is recommended in 12 months. OVERALL ASSESSMENT - CATEGORY 1 - NEGATI VE END OF IMPRESSION SJW Dictating ROOSEVELT COVINGTON MD Procedure Note Roosevelt Turner MD - 02/13/2016Format ting of this note might be different from the original. Comparison is made to films from 007 (bilateral). There is no significant interval change. Bilateral Breast Findings: There are scattered fibroglandular densi ties (11% - 50% fibroglandular). No significant masses, calcifications or other abnormalities are seen. IMPRESSION: BILATERAL BREASTS Negative, no evidence of malignancy. Nor mal interval follow-up is recommended in 12 months. OVERALL ASSESSMENT - CATEGORY 1 - NEGATI VE END OF IMPRESSION SJW Dictating ROOSEVELT COVINGTON MD Olamide Rodney MD RAD SHERYL documented in this encounter Visit Diagnoses Not on filedocumented in this encounter Care Teams Choir Leader Relationship Specialty Start Date End Date Olamide Rodney MD PCP - General 09/25/10 01/11/21 [address] [place], [place] [address] documented as of this encounter
--- OUTSIDE RECORDS SUMMARY | 2022-01-29 17:53 | XMS_ITS | Encounter Summary ---
:1960 Author Organization [employer] Address [address] [place] [address] Care Team Providers Name Role Phone Olamide Rodney MD Primary Care Provider Encounter Details Date Type Department Care Team Description 01/21/2007 Office Visit [facility] Nicole Monsalve PA-C [address] [place] [address] [place] [address] [phone] (Wo rk) Social History Tobacco Use Types Packs/Day Years Used Date Smoking Tobacco: Never Alcohol Use Standard Drinks/Week Comments Yes 0 (1 standard drink = 0.6 oz pure alcoho l) mod Sex Assigned at Date Recorded Not on file documented as of this encounter Progress Notes Nicole Monsalve PA-C - 01/21/2007 12:01 AM CDT Procedures signed by Nicole Monsalve PA-C at 01/21/07 0805 Author: Nicole Hartley PA-C Service: (none) Author Type: Physician Service Supervisor Filed: 10/12/102024 Note Time: 01/21/07 0001 Status: Signed Autocutter: Nicole Hartley PA-C (Physician Service Supervisor) Procedure Note: Skin Lesion Destruction CHIEF COMPLAINT: Skin lesion(s)Past History: Extensive sun exposure. Actinic keratosis Family History: No history of skin cancer in 1st degree family member. Adverse Drug Reactions: Patient's ADR's were reviewed and updated today on the Health Profile screen of Electronic Medical Record. Location #1: lateral upper right cheek History: Lesion has been Has had this treated several times in the past and has not been successful at complete resolution. Description: scaly patch with minimal erythema, consistent with an actinic keratosis. Number of Lesions Treated @ This Site: Size of Lesion: 4 mm. ASSESSMENT: Actinic Keratoses (702.0) PROCEDURE NOTE: Discussed risk of pain, blistering, infection, scarring, hypopigmentation, hyperpigmentation, and recurrence or need for retreatment. Benefits of treatment and alternative treatments were also discussed. Clean technique was used throughout the procedure. Liquid nitrogen applied to freeze the entire lesion(s) including a narrow margin of surrounding skin. After thawing, freezing was repeated x 1. PLAN: Signs of infection (spreading erythema, increasing pain, purulent discharge) were discussed. No swimming, keep lesion clean and dry except for showering until crusted over, and any weeping has subsided. Use OTC pain medications PRN per package instructions. Patient was given discharge instructions and was discharged in stable condition. RTC in 6 months for recheck, sooner if noting worrisome changes. *SH~PC~SLD ~Shorthand Note completed on: 01/21/2007 8:05 AM documented in this encounter Plan of Treatment Not on filedocumented as of this encounter Visit Diagnoses Not on filedocumented in this encounter Care Teams Model Dresser Relationship Specialty Start Date End Date Olamide Rodney MD PCP - General 09/25/10 01/11/21 [address] [place] [address] documented as of this encounter
--- OUTSIDE RECORDS SUMMARY | 2022-01-29 17:53 | XMS_ITS | Encounter Summary ---
:1960 Author Organization [employer] Address [address] [place] [address] Care Team Providers Name Role Phone Olamide Rodney MD Primary Care Provider Encounter Details Date Type Department Care Team Description 10/07/2005 PN Conversion Only [facility] [address] [place] [address] Social History Tobacco Use Types Packs/Day Years [...] Associated Diagnosis Comme nts MM MAMMOGRAM Routine 10/07/2005 2:21 PM Results f or this SCREENING W CAD CDT procedure ar e in the results section. documented in this encounter Results MM Mammogram Screening W CAD (10/07/2005 2:21 PM CDT) Anatomical Region Laterality Modality Breast Bilateral Mammography Specimen (Source) Anatomical Location Collection Method / Collectio n Time Received Time / Laterality Volume Impressions 10/15/2005 2:10 PM CDT : BILATERAL BREASTS - Category 1 Negative, no evidence of malignancy. Nor mal interval follow-up is recommended in 12 months. OVERALL ASSESSMENT - NEGATIVE END OF IMPRESSION Dictating SHAILA YOO RADIOLOGIST Narrative 10/15/2005 2:10 PM CDT Comparison is made to outside films from 09/15/2003 (bilateral - [facility]). ??There is no significant interval change. Bilateral Breast Findings: The breasts are heterogeneously dense. T his may lower the sensitivity of mammography. ??No significant masses, calcifications or other abnormalities are seen. Procedure Note Shaila Herrera - 08/29/2016 Comparison is made to outside films from 09/15/2003 (bilateral - [facility]). There i s no significant interval change. Bilateral Breast Findings: The breasts are heterogeneously dense. T his may lower the sensitivity of mammography. No significant masses, c alcifications or other abnormalities are seen. IMPRESSION : BILATERAL BREASTS - Category 1 Negative, no evidence of malignancy. Nor mal interval follow-up is recommended in 12 months. OVERALL ASSESSMENT - NEGATIVE END OF IMPRESSION Dictating SHAILA YOO A RADIOLOGIST Kwan Gilmore MD RAD SHERYL documented in this encounter Visit Diagnoses Not on filedocumented in this encounter Care Teams Polishing Wheel Repairer Relationship Specialty Start Date End Date Olamide Rodney MD PCP - General 09/25/10 01/11/21 [address] [place] [address] documented as of this encounter
--- OUTSIDE RECORDS SUMMARY | 2022-01-29 17:53 | XMS_ITS | Encounter Summary ---
:1960 Author Organization [employer] Address [address] [place] [address] Care Team Providers Name Role Phone Olamide Rodney MD Primary Care Provider Encounter Details Date Type Department Care Team Description 01/19/2006 Office Visit [facility] [place] [address] [place] [address] Social History Tobacco Use Types Packs/Day Years Used Date Smoking Tobacco: Never Alcohol Use Standard Drinks/Week Comments Yes 0 (1 standard drink = 0.6 oz pure alcoho l) mod Sex Assigned at Date Recorded Not on file documented as of this encounter Last Filed Vital Signs Vital Sign Reading Time Taken Comments Blood Pressure 131/72 01/19/2006 4:27 PM CDT Pulse 58 01/19/2006 4:27 PM CDT Temperature 36.9 ??C (98.4 ??F) 01/19/2006 4:27 PM ORAL C: 3 6.9 C CDT Respiratory Rate 20 01/19/2006 4:27 PM CDT Oxygen Saturation - - Inhaled Oxygen Concentration - - Weight - - Height - - Body Mass Index - - documented in this encounter Progress Notes Leny Soto MD - 01/19/2006 12:01 AM CDT Progress Notes signed by Leny Soto MD at 02/11/06 1053 Author: Leny Soto MD Service: (none) Author Type: Physician Filed: 10/12/10 1303 Note Time: 01/19/06 0001 Status: Signed Test Fixture Designer: Leny Soto MD (Physician) NAME: PATY LLAMAS MR: [id number] ACCT: [id number] VISIT: [id number] DICTATING CLINICIAN: LENY SOTO MD JOB: [id number] LOC: 520 CLINIC PROGRESS NOTE DATE OF VISIT: 01/19/2006 SUBJECTIVE: : 1960. The patient enters with a complaint of a rash over on the right hip area that she noted this morning. Her two concerns were ringworm or shingles. She cannot think of any particular exposures that would give her ringworm. 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 She has been taking her vitamins and for the most part, has been feeling well. ADR/ALLERGIES: NONE. MEDICATIONS: Reviewed in the med list of [facility]. OBJECTIVE: VS: BP: 131/78. T: 98.5. P: 58. R: 20. The patient has the classic rash of herpes zoster over the right groin area. No lymphadenopathy is noted. She has not felt any fevers or chills. ASSESSMENT: Herpes zoster. PLAN: Reviewed natural course and history of this disease. I did print off some patient education information for her from MD consult. Prescription for Acyclovir 200 mg suspension 4 teaspoons 5 times a day for the next week. Needs to keep the rash covered. Will follow up as needed. SMO:[id number] C: 01/21/06 04:07 DOCUMENT: [id number] documented in this encounter Plan of Treatment Not on filedocumented as of this encounter Visit Diagnoses Not on filedocumented in this encounter Care Teams Tassel Maker Relationship Specialty Start Date End Date Olamide Rodney MD PCP - General 09/25/10 01/11/21 [address] [place] [address] documented as of this encounter
--- OUTSIDE RECORDS SUMMARY | 2022-01-29 17:53 | XMS_ITS | Encounter Summary ---
:1960 Author Organization [facility] Address [address] [place] [address] Care Team Providers Name Role Phone Danielle Bender MD Primary Care Provider Reason for Referral Specialty Diagnoses / Procedures Referred By Contact Refer red To Contact [facility] [address] [address] Referral ID Status Reason Start Date Expiration Date Visits Requ ested Visits Authorized Specialty Diagnoses / Procedures Referred By Contact Refer red To Contact BELA ROULA CASAREZ [address] [address] Referral ID Status Reason Start Date Expiration Date Visits Requ ested Visits Authorized Reason for Visit Reason Comments PE AND PAP Encounter Details Date Type Department Care Team Description 09/24/2004 Office Visit Danielle Zepeda, PREVE NTIVE CARE EXAM (Primary Dx); Internal Medicine B12 DEFIC ANEMIA NEC; [address] [address] MOOD DISORDER NOS; [facility] [place] A STHMA, UNSPECIFIED; [phone] SCREENING MAMM-MAILG NEOPL-OTHER [phone] (Wo rk) Social History Tobacco Use Types Packs/Day Years Used Date Smoking Tobacco: Never Alcohol Use Standard Drinks/Week Comments Yes 0 (1 standard drink = 0.6 oz pure alcoho l) mod Sex Assigned at Date Recorded Not on file documented as of this encounter Last Filed Vital Signs Vital Sign Reading Time Taken Comments Blood Pressure 112/70 09/24/2004 8:29 AM CDT Pulse 60 09/24/2004 8:29 AM CDT Temperature - - Respiratory Rate - - Oxygen Saturation - - Inhaled Oxygen Concentration - - Weight 77.7 kg (171 lb 6.4 oz) 09/24/2004 8:29 AM CDT Height 166.4 cm (5' 5.5) 09/24/2004 8:29 AM CDT Body Mass Index 28.09 09/24/2004 8:29 AM CDT documented in this encounter Progress Notes 09/24/2004 8:20 AM CDT Addended by: DANIELLE BENDER on: 10/08/2004 12:45:40 PM Modules accepted: Orders, Medications Well Care Adult Female S> Paty Yeager is a 43 yr old female is in for routine health maintenance. She feels generally well. Current concerns: none. Menses are regular Sexual activity: monogamous in a stable relationship . Contraception: sterilization. Cardiovascular risk factors: 0 Nutrition/diet/weight concerns: no concerns Present dietary habits: tries to make low fat, high fiber choices most of the time. Present exercise habits: exercises moderately elevating heart rate 4-7 times a week. 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] Histories: Review of patient's past medical history indicates: DEPRESSIVE DISORDER NOS DEEP VENOUS PHLEBITIS-LEG NEC Comment: right leg, was on BCP at the time, Factor V Leiden positive, was on coumadin for 6mo B12 DEFIC ANEMIA NEC Comment: secondary to gastric bypass Review of patient's past surgical history indicates: Review of patient's past surgical history indicates: GASTRIC BYPASS,OBESITY,SB YAYA 09/23 REMOVAL OF GALLBLADDER 09/23 Comment: done during gastric bypass surgery Review of patient's family history indicates: Review of patient's family history indicates: Cancer Mother Comment: colon CA @ 62yo and in maternal aunt Thyroid Disorder Brother Comment: hypothyroid Tobacco Use: Never Alcohol Use: Yes Comment: mod Review of systems include: reviewed and neg Preventive Services: pap 08/24, mammo 08/24, Tetanus , Pneumovax n/a, Colon CA screening none, Bone Density n/a, Chol 08/25. O> General: Paty Yeager is a 43 yr old female who appears her stated age. BP 112/70 Pulse 60 Ht 5' 5.5 (1.66m) Wt 171 lbs 6 oz (77.7kg) LMP 09/16/2004 HEENT: Eyes: no lesions of lids, mattering or redness,Head: normocephalic,Mouth and throat: withouterythema or lesions of the mucosa,Nose: without septal or mucosal abnormalities,Ears: external canals and TMs free of lesions or abnormalities Neck: supple, without adenopathy or thyromegaly. Lungs: clear to auscultation, no wheezes, no crackles Breasts: no dominant mass or nipple changes CV: regular rate and rhythm, normal S1 and S2 without murmur or click Abd: soft, non-tender, no masses, no hepatomegaly or splenomegaly. : normal appearance of external genitalia, vaginal mucosa, and cervix,no palpable abnormalities on bimanual exam, pap smear taken MS: extremities: no sign of deformity, atrophy, tenderness, asymmetry or edema,good muscle tone & symmetry,normal alignment of lower extremities Skin: clear to inspection and with no palpable abnormalities. Neuro: sensation and motor function grossly intact; cranial nerves without obvious abnormalities. A> Preventive Evaluation and Exam P> Schedule colonoscopy and mammogram. Labs reviewed with patient, will add hemoglobin and iron studies. Some allergic eye symptoms--continue OTC drops and if persisting or worsening, call and would try drops for eye allergies. Follow-up in 1 Years for preventive care. Danielle Bender MD 09/24/2004 documented in this encounter Plan of Treatment Scheduled Referrals Name Type Priority Associated Diagnoses Order S chedule MAMMO. SCREENING, W/O Referral Routine Screening Mamm-Mail g Ordered: 09/24/2004 IMPLANTS (V76.12) Neopl-Other COLONOSCOPY (V76.51) Referral Routine Preventive Care Exam Ordered: 09/24/2004 documented as of this encounter Procedures Procedure Name Priority Date/Time Associated Diagnosis Comme nts PAP TEST, ROUTINE Routine 09/24/2004 12:00 AM Preventive Care Exam Results for this CDT procedure are i n the results section. HEMOGLOBIN, BLOOD Routine 09/19/2004 8:24 AM Resu lts for this PERSONAL LINES ACCOUNT EXECUTIVE procedure are i n the results section. BODY FLUID CULTURE Routine 09/19/2004 8:24 AM PERSONAL LINES ACCOUNT EXECUTIVE VIT B12 & FOLATE Routine 09/19/2004 8:24 AM B12 Defic Anemia N ec Results for this PERSONAL LINES ACCOUNT EXECUTIVE procedure are i n the results section. LIPID PANEL, FAST > Routine 09/19/2004 8:24 AM Preventive Care Exam Results for this 12 HOUR PERSONAL LINES ACCOUNT EXECUTIVE procedure are i n the results section. FERRITIN Routine 09/19/2004 8:24 AM B12 Defic Anemia Nec R esults for this PERSONAL LINES ACCOUNT EXECUTIVE procedure are i n the results section. TSH, SENSITIVE Routine 09/19/2004 8:24 AM Preventive Care Exam Results for this (WITH REFLEX) PERSONAL LINES ACCOUNT EXECUTIVE procedure are in the results section. IRON PROFILE Routine 09/19/2004 8:24 AM Results f or this (IRON,TIBC,%SAT.(CA PERSONAL LINES ACCOUNT EXECUTIVE procedur e are in LC)) the results section. GLUCOSE - FASTING > Routine 09/19/2004 8:24 AM Preventive Care Exam Results for this 8 HRS FASTING PERSONAL LINES ACCOUNT EXECUTIVE procedure are in the results section. documented in this encounter Results PAP TEST, ROUTINE (09/24/2004 12:00 AM CDT) Component Value Ref Test Analysis Performed At [facility] Range Method Time Signature Cytology, Pap (NOTE) [employer] [employer] Moulder'S Assistant Cytology Report Patient Name: PATY YEAGER Taken: 09/24/2004 Received: 09/27/2004 Reported: 10/08/2004 Physician(s): DANIELLE BENDER ([id number]) ?Source of Specimen Liquid routine Pap, cervical/endocervical: ?Specimen Adequacy ?Satisfactory for evaluation. ??Endocervical component present. ? Final Cytologic Interpretation/Result NEGATIVE FOR INTRAEPITHELIAL LESION OR MALIGNANCY (NILM) ? tlp/10/08/2004 Electronically Signed Out By EPHRAIM Long (ASCP) Rachel Young, CT (ASCP) ?Pap Smear History ?Date of Last Menstrual Period: ? 09/16/04 ?Contraceptive History: ?Not Stated/Unknown ?Other Clinical Conditions: ?LAST PAP: N/A HPV reflex testing requested with interpretation of ASCUS ? Specimen (Source) Anatomical Collection Method Collection Time Re ceived Time Location / / Volume Laterality 09/24/2004 09/27/2004 10:1 8 AM CDT Danielle Bender MD LAB_1 Performing Organization Address [facility]/ZIP Code Phon e Number [address] [address] [place], [place] [phone] (ABNORMAL) IRON, TIBC, % SAT. (CALC.) (09/19/2004 8:24 AM PERSONAL LINES ACCOUNT EXECUTIVE) Analysis Performed At Patho logist Time Signature Iron 70 40 - 180 [facility] mcg/dl TIBC, 398 250 - 450 [facility] Calculated mcg/dl % Saturation, 18 (L) 20 - 50 % [facility] calc. Specimen Anatomical Collection Method Collection Time Receive d Time (Source) Location / / Volume Laterality 09/19/2004 8:24 AM 5 9:09 PERSONAL LINES ACCOUNT EXECUTIVE AM PERSONAL LINES ACCOUNT EXECUTIVE Danielle Bender MD LAB_1 Performing Organization Address City/[facility]/ZIP Code Phon e Number [facility] [phone] [facility] [address] [place] [phone] HEMOGLOBIN, BLOOD (09/19/2004 8:24 AM PERSONAL LINES ACCOUNT EXECUTIVE) P athologist Signature Hemoglobin 13.5 12.0 - 16.0 [facility] g/dl Specimen Anatomical Collection Method Collection Time Receive d Time (Source) Location / / Volume Laterality 09/19/2004 8:24 AM 5 9:09 PERSONAL LINES ACCOUNT EXECUTIVE AM PERSONAL LINES ACCOUNT EXECUTIVE Danielle Bender MD LAB_1 Performing Organization Address City/[facility]/ZIP Code Phon e Number [facility] [phone] [facility] [address] [phone] COMMENTS (09/19/2004 8:24 AM PERSONAL LINES ACCOUNT EXECUTIVE) Specimen Anatomical Collection Method Collection Time Receive d Time (Source) Location / / Volume Laterality 09/19/2004 8:24 AM 5 9:09 PERSONAL LINES ACCOUNT EXECUTIVE AM PERSONAL LINES ACCOUNT EXECUTIVE Danielle Bender MD LAB_1 Performing Organization Address City/[facility] Phon e Number [facility] [phone] TSH, SENSITIVE (09/19/2004 8:24 AM PERSONAL LINES ACCOUNT EXECUTIVE) athologist Signature TSH 2.12 0.30 - 5.00 [facility] uIU/ml Thyroid Meds No [facility] Specimen Anatomical Collection Method Collection Time Receive d Time (Source) Location / / Volume Laterality 09/19/2004 8:24 AM 5 9:09 PERSONAL LINES ACCOUNT EXECUTIVE AM PERSONAL LINES ACCOUNT EXECUTIVE Danielle Bender MD LAB_1 Performing Organization Address City/[facility] Phon e Number [facility] [phone] [facility] [address] [place] [phone] CHOLESTEROL LIPID PANEL FAST >12HR FAST (09/19/2004 8:24 AM PERSONAL LINES ACCOUNT EXECUTIVE) athologist Signature Cholesterol 146 <200 mg/dl [facility] Triglyceride 68 <200 mg/dl [facility] HDL 61 >35 mg/dl [facility] LDL, Calc. 71 mg/dl [facility] Hours Fasting 13 hours [facility] Specimen Anatomical Collection Method Collection Time Receive d Time (Source) Location / / Volume Laterality 09/19/2004 8:24 AM 5 9:09 PERSONAL LINES ACCOUNT EXECUTIVE AM PERSONAL LINES ACCOUNT EXECUTIVE Danielle Bender MD LAB_1 Performing Organization Address City/[facility] Phon e Number [facility] [phone] [phone] GLUCOSE - FASTING > 8 HRS FASTING (V77.1) (09/19/2004 8:24 AM PERSONAL LINES ACCOUNT EXECUTIVE) athologist Signature Glucose 83 70 - 100 [facility] mg/dl Hours Fasting 13 hours [facility] Specimen Anatomical Collection Method Collection Time Receive d Time (Source) Location / / Volume Laterality 09/19/2004 8:24 AM 5 9:09 PERSONAL LINES ACCOUNT EXECUTIVE AM PERSONAL LINES ACCOUNT EXECUTIVE Danielle Bender MD LAB_1 Performing Organization Address City/[facility]/ZIP Code Phon e Number [facility] [phone] [facility] [address] [place] [phone] FERRITIN (09/19/2004 8:24 AM PERSONAL LINES ACCOUNT EXECUTIVE) athologist Signature Ferritin 17 10 - 151 [facility] ng/ml Specimen Anatomical Collection Method Collection Time Receive d Time (Source) Location / / Volume Laterality 09/19/2004 8:24 AM 5 9:09 PERSONAL LINES ACCOUNT EXECUTIVE AM PERSONAL LINES ACCOUNT EXECUTIVE Danielle Bender MD LAB_1 Performing Organization Address City/[facility] Phon e Number [facility] [phone] [facility] [address] [place] [phone] (ABNORMAL) VIT B12 & FOLATE (09/19/2004 8:24 AM PERSONAL LINES ACCOUNT EXECUTIVE) athologist Signature Vitamin B12 1450 (H) 211 - 911 [facility] pg/ml Folate >24.0 >3.0 ng/ml [facility] Specimen Anatomical Collection Method Collection Time Receive d Time (Source) Location / / Volume Laterality 09/19/2004 8:24 AM 5 9:09 PERSONAL LINES ACCOUNT EXECUTIVE AM PERSONAL LINES ACCOUNT EXECUTIVE Danielle Bender MD LAB_1 Performing Organization Address City/[facility] Phon e Number [facility] [phone] [facility] [address] [place] [phone] documented in this encounter Visit Diagnoses Diagnosis [facility] - Primary Routine general medical examination at a health care facility Other vitamin B12 deficiency anemia Unspecified episodic mood disorder ([facility]) Unspecified episodic mood disorder Unspecified asthma(493.90) ([facility]) Unspecified asthma Other screening mammogram documented in this encounter Care Teams Unit Tender Relationship Specialty Start Date End Date Danielle Bender MD PCP - General 04/09/01 08/07/10 1430 [facility] [address] [place] [address] documented as of this encounter
--- OUTSIDE RECORDS SUMMARY | 2022-01-29 17:53 | XMS_ITS | Encounter Summary ---
:1960 Author Organization [employer] Address [address], [place] [address] Care Team Providers Name Role Phone Olamide Rodney MD Primary Care Provider Encounter Details Date Type Department Care Team Description 10/29/2006 Office Visit [facility] Danni Jimenez, [address] [place] [address] [address] [phone] [place], [place] [address] (Wo rk) Social History Tobacco Use Types Packs/Day Years Used Date Smoking Tobacco: Never Alcohol Use Standard Drinks/Week Comments Yes 0 (1 standard drink = 0.6 oz pure alcoho l) mod Sex Assigned at Date Recorded Not on file documented as of this encounter Last Filed Vital Signs Vital Sign Reading Time Taken Comments Blood Pressure 120/78 10/29/2006 7:59 AM CDT Pulse 68 10/29/2006 7:59 AM CDT Temperature - - Respiratory Rate - - Oxygen Saturation - - Inhaled Oxygen Concentration - - Weight 84.4 kg (185 lb 15.7 oz) 10/29/2006 7:59 AM C: 8 4.4kg CDT Height 165.1 cm (5' 5) 10/29/2006 7:59 AM C: 165.1cm CDT Body Mass Index 30.95 10/29/2006 7:59 AM CDT documented in this encounter Progress Notes Danni Cramer MD - 10/29/2006 12:01 AM CDT H&P signed by Danni Cramer MD at 10/29/06 4342 Author: Danni Cramer MD Service: (none) Author Type: Physician Filed: 10/12/10 6929 Note Time: 10/29/06 0001 Status: Signed Puff Ironer: Danni Cramer MD (Physician) Preventive Exam & Pelvic IMPRESSION: Healthy female. Excessive alcohol consumption. Insomnia. Actinic keratosis. SUBJECTIVE: Patient presents for a routine preventive physical and pelvic exam. Pt. voices concerns about: Patient with multiple concerns: 1) Chronic insomnia - Has difficulty falling asleep. Can stay asleep. Tried OTC meds like Benadryl, Tylenol PM, Unisom, etc. Using alcohol, 2-5 drinks, at night to get to sleep. Concerned about alcohol overuse last several months. No h/o substance abuse. 2) Also concerned about numbness, tingling and pain around abdominoplasty site. Has not gotten better. No N/V. Normal intermittent stool changes. 3) Had bariatric surgery and DM, asthma, depression resolved. 4) Would like actinic keratosis on right cheek retreated with cryotherapy. Has been treated twice in past. 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 Pap History: No history of abnormal Pap smears. Menstrual History: Date of LMP: 10/03/2006 STD History: No history of STD's. Other Medical/Surgical History: Asthma. Depression. Diabetes, Type 2, controlled. DVT, Factor V Leiden. Obesity. Bariatric gastric bypass Adverse Drug Reactions: Pt's Adverse Drug Reactions were reviewed today, and updated on the Health Profile of [facility]. Current Medications: Reviewed today and updated on Health Profile in [facility]. Family History: (First degree family members) Colon cancer. Social History: Employment status: Employed. Marital Status: . Sexual History: Monogamous relationship. Habits Tobacco: None. Alcohol: Daily, more than two drinks. Drug: Denies any drug use. Preventive Health Assessment: Performs monthly breast self-exams. Calcium intake adequate. Colonoscopy done at age 43 Exercise adequate. Lipid screen is needed. Safe in relationship. Uses seatbelts. Review of Systems: With the exception of any items noted above, the remainder of complete ROS is negative. OBJECTIVE: Vital Signs: Vital Signs taken today were reviewed on the flowsheet in [facility]. General: Patient alert, in NAD. Overweight. HEENT: PERRLA. Bilateral TM's, Kexternal canals, oropharynx normal. Neck: Supple, without thyromegaly or Lmass. Upper extremities: FROM with good strength, no lesions or Mdeformities. CV: RRR without murmurs, rubs or gallops. Resp: Clear to Nauscultation without crackles, wheezes or distress. Abdomen: Soft, non-tender, without hepatosplenomegaly, masses, or hernias. Large scars Pvertically and horizontally. Well healed. Breasts: Nontender, without Qmasses, nipple discharge, erythema, or axillary adenopathy. Pelvic: Normal external genitalia and urethra. [place], moist vaginal and cervical mucosa, without lesions. On bimanual exam, uterus is mobile, normal size, shape & Tconsistency, with no uterine or adenexal masses appreciated. Rectal: Not Uexamined. Lymphatic: No neck, supraclavicular, axillary or groin Vlymphadenopathy. Lower extremities: FROM, normal gait without edema, Wlesions, or deformity. Skin: Hyperkeratotic lesion with flake on right Xcheek. Neuro: CN II-XII, motor & sensory function all intact. Psychiatric: Alert & oriented with normal affect and insight, does not appear depressed or anxious. ASSESSMENT: Healthy female. Excessive alcohol consumption. Insomnia. Actinic keratosis. PLAN: Follow-up in 1 year Ambien 5-10 mg po qhs prn. Pap smear. Mammogram. Cholesterol (Lipid) panel. Fasting glucose. Vit B12, folate, Fe, TIBC, ferritin, AST, ALT We will mail lab results to patient. Immunizations reviewed and updated in Health Profile [facility]. Pt. is up to date. Alcohol use, safety and moderation discussed. Breast self-exam recommended. Instructed on breast self-exam. Recommended adequate calcium intake/osteoporosis prevention. Discussed colon cancer screening. Discussed & recommended a balanced nutritious diet. Discussed benefits of regular exercise. Discussed mammogram screening. Discussed weight management. *SH~PC~PEF ~Shorthand Note completed on: 10/29/2006 1:00 PM documented in this encounter Plan of Treatment Not on filedocumented as of this encounter Visit Diagnoses Not on filedocumented in this encounter Care Teams Sap Bw Developer Relationship Specialty Start Date End Date Olamide Rodney MD PCP - General 09/25/10 01/11/21 [address] [place] [address] documented as of this encounter
--- OUTSIDE RECORDS SUMMARY | 2022-01-29 17:53 | XMS_ITS | Encounter Summary ---
:1960 Author Organization [employer] Address [address] [place] [address] Care Team Providers Name Role Phone Olamide Rodney MD Primary Care Provider Encounter Details Date Type Department Care Team Description 07/31/2006 Office Visit [facility] Nicole Monsalve PA-C [address] [place] [address] [place] [address] [phone] (Wo rk) Social History Tobacco Use Types Packs/Day Years Used Date Smoking Tobacco: Never Alcohol Use Standard Drinks/Week Comments Yes 0 (1 standard drink = 0.6 oz pure alcoho l) mod Sex Assigned at Date Recorded Not on file documented as of this encounter Progress Notes Nicole Monsalve PA-C - 07/31/2006 12:01 AM CST Progress Notes signed by Nicole Monsalve PA-C at 07/31/06 8225 Author: Nicole Hartley PA-C Service: (none) Author Type: Physician Tip Scourer Filed: 10/12/10 5591 Note Time: 07/31/06 0001 Status: Signed Phlebotomy Services Representative: Nicole Hartley PA-C (Physician Tip Scourer) SUBJECTIVE: Patient presents today for a skin recheck. There was a actinic keratosis treated on her right upper cheek at her last appointment, she states it does not seem to be completely gone. She is not noticed any other new lesions. She does examine her skin on a regular basis. She did receive skin cancer brochure at her last exam, and uses this for reference. Past medical history: Actinic keratoses. Hirsutism. Adverse Drug Reactions: Reviewed. See ADR list and last word. Medications: Reviewed. See Medication List in [facility]. Social history: She uses good sun protection measures. OBJECTIVE: Vital Signs : Reviewed; See Flowsheet Charting in [facility]. General: She is alert and oriented x 3. No acute distress.Skin: Examination of the face, including palpation of the skin, does reveal scattered yellowish papules with central pore consistent with sebaceous hyperplasia. On the right upper lateral cheek there is a 3-mm erythematous macules fine scale consistent with actinic keratosis. No other abnormal lesions noted on her face, neck, or arms bilaterally. PROCEDURE NOTE: After verbal consent was obtained the area on the upper lateral right cheek was treated with liquid nitrogen in a freeze-thaw- refreeze cycle x 1. She tolerated the procedure well. ASSESSMENT: Actinic keratoses. Sebaceous hyperplasia. PLAN: Wound care instructions reviewed. Continue with regular skin checks. If noting anything new or different she is to return to clinic. Otherwise will follow up with her in 6 months. She is agreeable with the above plan. The patient was discharged ambulatory and in stable condition. *SH~DNS~SOAP FOLDER documented in this encounter Plan of Treatment Not on filedocumented as of this encounter Visit Diagnoses Not on filedocumented in this encounter Care Teams Mortgage Broker Relationship Specialty Start Date End Date Olamide Rodney MD PCP - General 09/25/10 01/11/21 [address] [place], [place] [phone] documented as of this encounter
--- OUTSIDE RECORDS SUMMARY | 2022-01-29 17:53 | XMS_ITS | Encounter Summary ---
:1960 Author Organization [employer] Address [address] [place] [address] Care Team Providers Name Role Phone Olamide Rodney MD Primary Care Provider Encounter Details Date Type Department Care Team Description 09/29/2006 Office Visit [facility], Sarmad Batres MD Medicine [address] [facility] [address] [place] [address] [place] [address] (Wo rk) Social History Tobacco Use Types [...] on filedocumented in this encounter Care Teams Machine Finisher Relationship Specialty Start Date End Date Olamide Rodney MD PCP - General 09/25/10 01/11/21 [address] [place], [place] [address] documented as of this encounter
--- OUTSIDE RECORDS SUMMARY | 2022-01-29 17:53 | XMS_ITS | Encounter Summary ---
:1960 Author Organization [employer] Address [address] [place] [address] Care Team Providers Name Role Phone Olamide Rodney MD Primary Care Provider Encounter Details Date Type Department Care Team Description 02/26/2006 Office Visit [facility] Nicole Monsalve PA-C [address] [place] [address] [place] [address] [phone] (Wo rk) Social History Tobacco Use Types Packs/Day Years Used Date Smoking Tobacco: Never Alcohol Use Standard Drinks/Week Comments Yes 0 (1 standard drink = 0.6 oz pure alcoho l) mod Sex Assigned at Date Recorded Not on file documented as of this encounter Progress Notes Nicole Monsalve PA-C - 02/26/2006 12:01 AM CDT Procedures signed by Nicole Monsalve PA-C at 02/28/06 0745 Author: Nicole Hartley PA-C Service: (none) Author Type: Physician Hotel Front Office Manager Filed: 10/12/10 2708 Note Time: 02/26/06 0001 Status: Signed Physical Therapy Assistant Instructor: Nicole Hartley PA-C (Physician Hotel Front Office Manager) Procedure Note: Skin Lesion Destruction IMPRESSION: Actinic keratosis CHIEF COMPLAINT: Skin lesion(s) Past History: NO personal history of skin cancer. Past History: Extensive sun exposure. Family History: No history of skin cancer in 1st degree family member. No history of melanoma in 1st degree family member. Adverse Drug Reactions: Patient's ADR's were reviewed and updated today Location #1: lateral upper right cheek History: Lesion has been present for 1 year, Lesion is asymptomatic. Description: scaly patch with minimal erythema, consistent with an actinic keratosis. Number of Lesions Treated @ This Site: Size of Lesion: 5 mm. ASSESSMENT: Actinic Keratoses(702.0) PROCEDURE NOTE: Discussed risk of pain, blistering, infection, scarring, hypopigmentation, hyperpigmentation, and recurrence or need for retreatment. Benefits of treatment and alternative treatments were also discussed. Clean technique was used throughout the procedure. Liquid nitrogen applied to freeze the entire lesion(s) including a narrow margin of surrounding skin. After thawing, freezing was repeated x 1. Band-Aid applied to lesion(s). PLAN: Signs of infection (spreading erythema, increasing pain, purulent discharge) were discussed. No swimming, keep lesion clean and dry except for showering until crusted over, and any weeping has subsided. Use OTC pain medications PRN per package instructions. Patient was given discharge instructions and was discharged in stable condition. Return to clinic if there is not complete resolution of the lesion over the next month. Discussed sun protection measures and reviewed a skin cancer brochure in detail today. *SH~PC~SLD ~S[place]and Note completed on: 02/28/2006 7:48 AM documented in this encounter Plan of Treatment Not on filedocumented as of this encounter Visit Diagnoses Not on filedocumented in this encounter Care Teams Manager Ob Relationship Specialty Start Date End Date Olamide Rodney MD PCP - General 09/25/10 01/11/21 [address] [place] [address] documented as of this encounter
--- OUTSIDE RECORDS SUMMARY | 2022-01-29 17:53 | XMS_ITS | Encounter Summary ---
:1960 Author Organization [employer] Address [address] [place] [address] Care Team Providers Name Role Phone Olamide Rodney MD Primary Care Provider Encounter Details Date Type Department Care Team Description 10/02/2005 Office Visit [facility] Olivia Gilmore MD Medicine [address] [facility] [address] [address] [place], [place] [phone] (Wo rk) Social History Tobacco Use Types Packs/Day Years Used Date Smoking Tobacco: Never Alcohol Use Standard Drinks/Week Comments Yes 0 (1 standard drink = 0.6 oz pure alcoho l) mod Sex Assigned at Date Recorded Not on file documented as of this encounter Last Filed Vital Signs Vital Sign Reading Time Taken Comments Blood Pressure 126/78 10/02/2005 8:33 AM CDT Pulse 60 10/02/2005 8:33 AM CDT Temperature - - Respiratory Rate - - Oxygen Saturation - - Inhaled Oxygen Concentration - - Weight 85 kg (187 lb 6.3 oz) 10/02/2005 8:33 AM CDT C: 85.0kg Height 165.1 cm (5' 5) 10/02/2005 8:33 AM CDT C: 165.1 cm Body Mass Index 31.18 10/02/2005 8:33 AM CDT documented in this encounter Progress Notes Cornelius Gilmore MD - 10/02/2005 12:01 AM CDT Progress Notes signed by Cornelius Gilmore MD at 10/20/05 1908 Author: Tapan Gilmore MD Service: (none) Author Type: Physician Filed: 10/12/10 1050 Note Time: 10/02/052020 Status: Signed Program Production Specialist: Tapan iGlmore MD (Physician) NAME: PATY LLAMAS MR: [id number] ACCT: [id number] VISIT: [id number] DICTATING CLINICIAN: CORNELIUS GILMORE MD JOB: [id number] CLINIC PROGRESS NOTE DATE OF VISIT: 10/02/2005 SUBJECTIVE: : 1960. Patient is a 44-year-old female, presents to clinic for routine physical. PAST MEDICAL HISTORY: 1. History of obesity. 2. History of diabetes. 3. History of deep venous thrombosis with six months of coagulation therapy. 4. History of factor V Leiden deficiency. 5. Asthma. 6. Depression. FAMILY HISTORY: Colon cancer. SURGICAL PROCEDURES: 1. Gastric bypass 09/2002 2. Abdominoplasty 2004. 3. Colonoscopy every five years. MEDICATIONS: Maxair one to two puffs q.4h. as needed, vitamin B12 12,000 every day, multivitamins, and aspirin 81 mg three times a day. ADR/ALLERGIES: NONE. SOCIAL HISTORY: Nonsmoker. Social drink. 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 No children. Has a stepdaughter. Patient's hobby is ?. FAMILY HISTORY: Mother had colon cancer age of 55. Brother also had hypothyroidism and also history of depression through the family. There was no diabetes, no heart attack, no breast cancer. HEALTH MAINTENANCE: Patient had Pap smear and mammogram about a year ago. Patient's pneumonia shot was over eight years ago, and tetanus shot is less than six years ago. Never had a bone density scan. Colonoscopy was 2004. REVIEW OF SYSTEMS: Patient had lost about 160 pounds since the gastric bypass but has been gradually gaining more weight. Patient's face has some dry patch of right side and complaining about plugging of the right ear and jumpy legs once a week, seemed to be getting better with exercising and wine. She otherwise really does not have any typical symptoms for restless leg syndrome and no Meniere's disease symptoms at all. Patient has no chest pain, no shortness of breath, no nausea, no vomiting, abdominal pain. Urinating has been regular, and bowel movements once in a while has constipation. Her periods seem to be getting more irregular but denies any menopausal symptoms at all. The review of systems otherwise seemed to be all unremarkable. OBJECTIVE: VS: BP: 126/78. P: 60. Wt: 187.4. Patient is pleasant, appears in no acute distress. HEENT: Pupils equal, reactive to light. Oropharyngeal exam intact. Bilateral ear exam appeared to be normal. NECK: Supple. No JVD. No bruit. No thyroid enlargement. LUNGS: Clear to auscultation. No wheezing. No crackles. CARDIOVASCULAR: S1, S2. No murmur, no gallops, no rubs. ABDOMEN: Soft and nontender. FOUR EXTREMITIES: No edema. No tenderness times four. Good pulsations times four. NEURO: Grossly intact. II-XII intracranial nerves intact. Normal sensation. Good coordination. Strength 5 out of 5. Deep tendon reflex preserved. Babinski bilaterally downgoing. Normal gait. External genitalia exam intact. Urethral meatus appeared to be normal. Vagina: No lesions. Cervix present. No inflammation. Pap smear was taken. SKIN: No ecchymosis. No rash. No other suspicious lesions. Did have some very small dry patch around on the right side of cheek area. BREASTS: Bilateral symmetric appearance. No nipple discharge. No masses noted from exam. ASSESSMENT: 1. Routine physical. 2. History of type 2 diabetes, seemed to be resolved after gastric bypass. PLAN: 1. Patient is going to schedule for cholesterol, liver function, screening for diabetes again, and check for CBC, TSH, electrolytes, kidney, urinalysis. 2. Status post gastric bypass. Patient will be checked for B12 and iron TIBC. Suggest patient increase B12 from every other day to every day. 3. Patient was given triamcinolone 0.05% cream apply for dry patch. 4. Refill prescription for Maxair. Otherwise, patient was advised healthy lifestyle, exercising, calorie intake control. 5. Patient will be given pneumonia vaccine today. [id number] C: 10/02/05 16:58 DOCUMENT: [id number] documented in this encounter Plan of Treatment Not on filedocumented as of this encounter Visit Diagnoses Not on filedocumented in this encounter Care Teams Hiv/Aids Care Nurse Relationship Specialty Start Date End Date Olamide Rodney MD PCP - General 09/25/10 01/11/21 [address] [place] [address] documented as of this encounter
--- OUTSIDE RECORDS SUMMARY | 2022-01-29 17:53 | XMS_ITS | Encounter Summary ---
:1960 Author Organization [employer] Address [address] [place] [address] Care Team Providers Name Role Phone Olamide Rodney MD Primary Care Provider Encounter Details Date Type Department Care Team Description 10/29/2006 PN Conversion Only [place] [facility] Danni Xiong [address] [facility] [place] [address] [facility] [place] [address] (Wo rk) Social History Tobacco [...] Date/Time Associated Comments Diagnosis ANATOMICAL PATH Routine 10/29/2006 1:47 PM Result s for this LIQUID BASED CDT procedure are i n the results section. IRON BINDING CAPACITY Routine 10/29/2006 9:25 AM Results for this (INCL IRON) CDT procedure are i n the results section. GLUCOSE Routine 10/29/2006 9:25 AM Results f or this CDT procedure are i n the results section. THYROID STIMULATING Routine 10/29/2006 9:25 AM Re sults for this HORMONE CDT procedure are i n the results section. LIPID PANEL AND Routine 10/29/2006 9:25 AM Result s for this DIRECT LDL(IF NEEDED) CDT proced ure are in the results section. VIT B12 & FOLATE Routine 10/29/2006 9:25 AM Resul ts for this CDT procedure are i n the results section. FERRITIN Routine 10/29/2006 9:25 AM Results f or this CDT procedure are i n the results section. ALT (SGPT) Routine 10/29/2006 9:25 AM Results f or this CDT procedure are i n the results section. AST Routine 10/29/2006 9:25 AM Results f or this CDT procedure are i n the results section. documented in this encounter Results Pap Smear (10/29/2006 1:47 PM CDT) [facility] Method Time Signature PAP Smear SEE TEXT No normal HP CONVERSION Liquid Based range Comment: Patient: PATY LLAMAS ? CERVICAL CYTOLOGY REPORT Pathology # ??[id number] ?Date Obtained: ? Date Received: CYTOLOGIC IMPRESSION: Negative for intraepithelial lesion or m alignancy. Verified 11/03/06 by: ??JRJ ?(electronic signature) ? ANGELA TIONAL DATA LMP: CLINICAL HIST LIQUID BASED PAP CERVICAL SPECIMEN ADEQUACY: ?? Satisfactory. ENDOCERVICAL CELLS: ??Present. Specimen (Source) Anatomical Collection Method Collection Time Re ceived Time Location / / Volume Laterality 10/29/2006 1:47 PM CDT Danni Cramer MD LAB_1 Performing Organization Address City/State/ZIP Code Phon e Number HP CONVERSION ALT (SGPT) (10/29/2006 9:25 AM CDT) [facility] Method Time Signature Alanine 19 4 - 55 HP CONVERSION Aminotransferase U/L Specimen (Source) Anatomical Collection Method Collection Time Re ceived Time Location / / Volume Laterality 10/29/2006 9:25 AM CDT Danni Cramer MD LAB_1 Performing Organization Address City/[facility]/ZIP Code Phon e Number HP CONVERSION AST (10/29/2006 9:25 AM CDT) [facility] gist Method Time Signature Aspartate 27 0 - 45 HP CONVERSION Aminotransferase U/L Specimen (Source) Anatomical Collection Method Collection Time Re ceived Time Location / / Volume Laterality 10/29/2006 9:25 AM CDT Danni Cramer MD LAB_1 Performing Organization Address City/[facility] Code Phon e Number HP CONVERSION Glucose (10/29/2006 9:25 AM CDT) athologist Signature Length Of Fast 12.0 Hours HP CONVERSION Lab Glucose 89 60 - 100 HP CONVERSION mg/dL Specimen (Source) Anatomical Collection Method Collection Time Re ceived Time Location / / Volume Laterality 10/29/2006 9:25 AM CDT Danni Cramer MD LAB_1 Performing Organization Address City/[facility] Code Phon e Number HP CONVERSION (ABNORMAL) Lipid Panel and Direct LDL(If Needed) (10/29/2006 9:25 AM CDT) [facility] Method Time Signature Length Of Fast 12.0 Hours HP CONVERSION Cholesterol/HDL 2.0 No normal HP CONVERSION Ratio Screen range Cholesterol 144 <200 mg/dL HP CONVERSION HDL Cholesterol 71 (H) 40 - 60 HP CONVERSION mg/dL Triglycerides 79 0 - 149 HP CONVERSION mg/dL LDL Calculated 57 0 - 130 HP CONVERSION mg/dL Comment: Specimen (Source) Anatomical Collection Method Collection Time Re ceived Time Location / / Volume Laterality 10/29/2006 9:25 AM CDT Danni Cramer MD LAB_1 Performing Organization Address City/[facility]/ZIP Code Phon e Number HP CONVERSION Ferritin (10/29/2006 9:25 AM CDT) athologist Signature Ferritin Serum 66 10 - 291 HP CONVERSION ng/mL Specimen (Source) Anatomical Collection Method Collection Time Re ceived Time Location / / Volume Laterality 10/29/2006 9:25 AM CDT Danni Cramer MD LAB_1 Performing Organization Address City/[facility] Code Phon e Number HP CONVERSION Thyroid Stimulating Hormone (10/29/2006 9:25 AM CDT) athologist Signature Thyroid 3.46 0.20 - HP CONVERSION Stimulating 4.50 Hormone uIU/mL Specimen (Source) Anatomical Collection Method Collection Time Re ceived Time Location / / Volume Laterality 10/29/2006 9:25 AM CDT Danni Cramer MD LAB_1 Performing Organization Address City/[facility] Code Phon e Number HP CONVERSION (ABNORMAL) Vit B12 & Folate (10/29/2006 9:25 AM CDT) Analysis Performed At [facility] logist Time Signature Vitamin B12 1,574 (H) 211 - 911 HP CONVERSION pg/mL Serum Folate >24.0 >6.1 ng/mL HP CONVERSION Specimen (Source) Anatomical Collection Method Collection Time Re ceived Time Location / / Volume Laterality 10/29/2006 9:25 AM CDT Danni Cramer MD LAB_1 Performing Organization Address City/[facility] Code Phon e Number HP CONVERSION Iron Binding Capacity (Incl Iron) (10/29/2006 9:25 AM CDT) athologist Signature Iron, Serum 137 50 - 165 HP CONVERSION ug/dL Iron Binding 320 250 - 450 HP CONVERSION Capacity ug/dL Iron Saturation 43 20 - 55 % HP CONVERSION Specimen (Source) Anatomical Collection Method Collection Time Re ceived Time Location / / Volume Laterality 10/29/2006 9:25 AM CDT Danin Cramer MD LAB_1 Performing Organization Address City/[facility] Phon e Number HP CONVERSION documented in this encounter Visit Diagnoses Not on filedocumented in this encounter Care Teams Braiding Machine Operator Relationship Specialty Start Date End Date Olamide Rodney MD PCP - General 09/25/10 01/11/21 [address] [place] [address] documented as of this encounter
--- OUTSIDE RECORDS SUMMARY | 2022-01-29 17:53 | XMS_ITS | Encounter Summary ---
:1960 Author Organization [employer] Address [address] [place] [address] Care Team Providers Name Role Phone Olamide Rodney MD Primary Care Provider Encounter Details Date Type Department Care Team Description 08/31/2010 Office Visit [facility] [address]ink MD Dermatology [address] [place] [address] [place] [address] [phone] Social History Tobacco Use Types Packs/Day Years Used Date Smoking Tobacco: Never Alcohol Use Standard Drinks/Week Comments Yes 0 (1 standard drink = 0.6 oz pure alcoho l) mod Sex Assigned at Date Recorded Not on file documented as of this encounter Progress Notes Ta Brink MD - 08/31/2010 12:01 AM CST NAME: PATY LLAMAS MR#: [id number] ACCT: [id number] VISIT: [id number] DICTATING CLINICIAN: Ta Brink MD CONFIRM #: [id number] LOC: 427 CLINIC PROGRESS NOTE DATE OF VISIT: 08/31/2010 : 1960 HISTORY OF PRESENT ILLNESS: Ms. Llamas is a 49-year-old lady here at request of Olamide Rodney MD for a for a few concerns. She has a rough spot on the right cheek for a few years and treated with liquid nitrogen 2-3 times, went away briefly, comes back, now it is getting bigger. Occasionally bleeds on scratching. She has itchy rough spots appeared on her left medial forearm 2 weeks ago. She also has a rather irritating tag on the right buttock that she wants removed. Has no personal or family history of skin cancer. No other skin concerns today. MEDICATION ALLERGIES: Updated in Last[employer]. OBJECTIVE: Well-appearing, alert in no distress. On the right superior lateral cheek there is an ill-defined erythematous rough patch of 1 cm. She has an ill- defined slightly erythematous rough patch of 1.5 cm on the left medial forearm. She has a 2 mm skin-colored soft pedunculated papule on the right inferior buttock. ASSESSMENT/PLAN: 1. Acrochordon by the right inferior buttock. After the risks and benefits discussed verbal consent obtained, anesthetized with 0.5 mL of 1% Xylocaine with epinephrine, shaved with a Stonewall Blade. 2. Actinic keratosis or Vasquez disease on the right superior lateral cheek. After the risks and benefits discussed verbal can obtained, 2 mm punch biopsy obtained, closed with 6-0 Prolene, suture removal 7 days. 3. Nummular eczema on the left forearm. The Topicort sample 0.25% 5 grams to apply 2 times a day 1-2 weeks to resolution. RTC if it does not resolve. YW:DUANE C: CONFIRM #: [id number] documented in this encounter Plan of Treatment Not on filedocumented as of this encounter Visit Diagnoses Not on filedocumented in this encounter Care Teams Edge Cutter Relationship Specialty Start Date End Date Olamide Rodney MD PCP - General 09/25/10 01/11/21 [address] [place] [address] documented as of this encounter
--- OUTSIDE RECORDS SUMMARY | 2022-01-29 17:54 | XMS_ITS | Encounter Summary ---
:1960 Author Organization [employer] Address [address] [place] [address] Care Team Providers Name Role Phone Danielle Bender MD Primary Care Provider Encounter Details Date Type Department Care Team Description 03/26/2002 Office Visit [facility] Danielle Bender OBESITY NOS; Internal Medicine MD [place]ina DIABETES UNCOMPL ADULT-TYPE II; [address] [facility] [address] PURE HYPERCHOLESTEROLEM [facility], [address] [place] [address] [phone] Social History Tobacco Use Types Packs/Day Years Used Date Smoking Tobacco: Never Assessed Sex Assigned at Date Recorded Not on file documented as of this encounter Last Filed Vital Signs Vital Sign Reading Time Taken Comments Blood Pressure 116/80 03/26/2002 9:40 AM CDT Pulse - - Temperature - - Respiratory Rate - - Oxygen Saturation - - Inhaled Oxygen Concentration - - Weight 142.9 kg (315 lb) 03/26/2002 9:40 AM CDT Height - - Body Mass Index - - documented in this encounter Progress Notes 03/26/2002 9:40 AM CDT Paty Watts is here today for lab results from last week. Are you having pain today, that you want to discuss with the provider? -{YES/NO/NA:51230} BP was taken on the {RIGHT/LEFT:434444} arm. Large cuff used- {NO/YES:282} Preventive Services reviewed -{YES/NO:63}. Immunizations reviewed-{YES/NO:63}. Screening for domestic abuse done -{YES/NO:63} Abuse present -{DVS:270}. Tobacco Status -{CURRENT, FORMER:271}. Interested in quiting - {YES/NO/NA/QUIT DATE:285} dry heat room attendant offered -{ACCEPTED/DECLINED:272}. Aspirin taken daily- {YES/NO/CONTRAINDICATED:284} Health Education given -{YES/NO:49447}. Arminda Antoine Jey 03/26/2002 9:46 AM NapoleonDanielle Alonzo 03/26/2002 12:00 AM CDTS: This is a 41 year-old white female with type II diabetes and hyperlipidemia and obesity comes in today for follow-up. She is on diet control for her diabetes. Last hemoglobin A1C was 6.3%. we reviewed her last cholesterol results which showed that her LDL cholesterol was 143. She is planning on seeing Dr. Edward for referral for gastric bypass surgery and she has her first appointment in April for one of the classes. So she would like to just leave her cholesterol for the time being and not start any medications until she undergoes the surgery and then she would expect her cholesterol would come down better. We also reviewed her blood tests. She had had superficial thrombophlebitis and then had a deep venous thrombosis around June of last year. Her factor V Swayzee came back abnormal. But she had a protein C and protein S level done and those came back in the normal range. She also has had pain in her left heel which we have thought was a plantar fasciitis. She says it has gotten worse here lately and she has not been using heel cups so we talked about using heel cups and doing the wall stretch for the Achilles tendon and if it doesn't get better we would plan on having her speak to someone in podiatry. She also uses [employer] for her asthma as needed and it is the only one that has worked for her in the past because it doesn't have any propellant. But she can't get it at [facility] anymore. We checked at our pharmacy and they do have some in stock so a prescription was sent over for that. A: 1. Obesity. 2. type II diabetes. 3. Hypercholesterolemia. P: Will wait for her meet with Dr. Edward to discuss gastric bypass surgery. Continue diabetic diet. Heel cups were given for the left sided fasciitis. 20 minutes was spent with the patient, 15 of which was in counseling and coordination of care. IN SUMMARY: multiple cc: documented in this encounter Plan of Treatment Not on filedocumented as of this encounter Visit Diagnoses Diagnosis Obesity, unspecified (HRC) Obesity, unspecified Type II or unspecified type diabetes rod litus without mention of complication, not stated as uncontrolled Pure hypercholesterolemia documented in this encounter Care Teams Materials And Processes Manager Relationship Specialty Start Date End Date Danielle Bender MD PCP - General 04/09/01 08/07/10 [address] [facility] [address] [place] [address] documented as of this encounter
--- OUTSIDE RECORDS SUMMARY | 2022-01-29 17:54 | XMS_ITS | Encounter Summary ---
:1960 Author Organization [employer] Address [address] [place] [address] Care Team Providers Name Role Phone Danielle Bender MD Primary Care Provider Encounter Details Date Type Department Care Team Description 07/01/2002 Orders Only [place] [facility] Danielle Linares MD [facility] [address] [place] [address] [place], [place] [phone] (Wo rk) Social History Tobacco Use Types Packs/Day Years Used Date Smoking Tobacco: Never Assessed Sex Assigned at Date Recorded Not on file documented as of this encounter Plan of Treatment Not on filedocumented as of this encounter Procedures Procedure Name Priority Date/Time Associated Diagnosis Comme nts PAP TEST, ROUTINE Routine 07/01/2002 12:00 AM Res ults for this PRODUCTION AIDE procedure are i n the results section. documented in this encounter Results PAP SMEAR, ROUTINE (07/01/2002 12:00 AM PRODUCTION AIDE) [facility] Method Time Signature Cytology, Pap (NOTE) [employer] Cytology Report Patient Name: PATY YEAGER Taken: 07/01/02 Received: 07/05/02 Reported: 07/07/02 Physician(s): DANIELLE BENDER ([id number]) ? [id number] Final Cytologic Diagnosis Cervical Endocervical,routine: ? Satisfactory for evaluation but limited by the absence of endocervical cells and squamous metaplastic cells. ? WITHIN NORMAL LIMITS (WNL) ?Inflammation Comment b2/07/07/02 Electronically Signed Out By EPHRAIM Beckford (ASCP) EPHRAIM Beckford (ASCP) Source of Specimen(s) Cervical Endocervical,routine Clinical History Date of Last Menstrual Period: ? LAST SUMMER Menstrual History: Contraceptive History: Cancer History: Infection History: Treatment History: Other Clinical Conditions: LAST PAP: 06/04/01 Other Related Clinical Data Specimen (Source) Anatomical Collection Method Collection Time Re ceived Time Location / / Volume Laterality 07/01/2002 07/05/2002 12:5 2 PM PRODUCTION AIDE Danielle Bender MD LAB_1 Performing Organization Address City/State/ZIP Code Phon e Number [address] [address] [place], [place] [phone] documented in this encounter Visit Diagnoses Not on filedocumented in this encounter Care Teams Metal Moulder'S Assistant Relationship Specialty Start Date End Date Danielle Bender MD PCP - General 04/09/01 08/07/[address] [place] [address] documented as of this encounter
--- OUTSIDE RECORDS SUMMARY | 2022-01-29 17:54 | XMS_ITS | Encounter Summary ---
:1960 Author Organization [employer] Address [address] [place] [address] Care Team Providers Name Role Phone Danielle Bender MD Primary Care Provider Encounter Details Date Type Department Care Team Description 10/11/2002 Correspondence External to Danielle Bender, [facility] BARIATRIC MD SURGERY [address] [place] [address] (Wo rk) Social History Tobacco Use Types Packs/Day Years Used Date Smoking Tobacco: Never Alcohol Use Standard Drinks/Week Comments Yes 0 (1 standard drink = 0.6 oz pure alcoho l) mod Sex Assigned at Date Recorded Not on file documented as of this encounter Progress Notes Danielle Bender - 10/11/2002 12:00 AM CDT documented in this encounter Plan of Treatment Not on filedocumented as of this encounter Visit Diagnoses Not on filedocumented in this encounter Care Teams Workday Senior Associate Relationship Specialty Start Date End Date Danielle Bender MD PCP - General 04/09/01 08/07/[address] [place] [address] documented as of this encounter
--- OUTSIDE RECORDS SUMMARY | 2022-01-29 17:54 | XMS_ITS | Encounter Summary ---
:1960 Author Organization [employer] Address [address] [place] [address] Care Team Providers Name Role Phone Danielle Bender MD Primary Care Provider Encounter Details Date Type Department Care Team Description 03/25/2003 Orders Only [place] Danielle Linares MD [facility]0 [facility] [address] [place] [address] [place], [place] [phone] (Wo rk) Social History Tobacco Use Types Packs/Day Years Used Date Smoking Tobacco: Never Alcohol Use Standard Drinks/Week Comments Yes 0 (1 standard drink = 0.6 oz pure alcoho l) mod Sex Assigned at Date Recorded Not on file documented as of this encounter Plan of Treatment Not on filedocumented as of this encounter Procedures Procedure Name Priority Date/Time Associated Diagnosis Comme nts HEMOGLOBIN, BLOOD Routine 03/25/2003 8:44 AM Resu lts for this CDT procedure are i n the results section. VIT B12 & FOLATE Routine 03/25/2003 8:44 AM Resul ts for this CDT procedure are i n the results section. LIPID PANEL, FAST > Routine 03/25/2003 8:44 AM Re sults for this 12 HOUR CDT procedure are i n the results section. FERRITIN Routine 03/25/2003 8:44 AM Results f or this CDT procedure are i n the results section. TSH, SENSITIVE Routine 03/25/2003 8:44 AM Results for this (WITH REFLEX) CDT procedure are in the results section. HGB A1C Routine 03/25/2003 8:44 AM Results f or this CDT procedure are i n the results section. IRON PROFILE Routine 03/25/2003 8:44 AM Results f or this (IRON,TIBC,%SAT.(CA CDT procedur e are in LC)) the results section. GLUCOSE - FASTING > Routine 03/25/2003 8:44 AM Re sults for this 8 HRS FASTING CDT procedure are in the results section. INR/PROTIME Same Day 03/25/2003 8:44 AM Results f or this CDT procedure are i n the results section. documented in this encounter Results HGB A1C (03/25/2003 8:44 AM CDT) athologist Signature Hgb A1c 5.0 4.3 - 6.1 % [facility] Specimen Anatomical Collection Method Collection Time Receive d Time (Source) Location / / Volume Laterality 03/25/2003 8:44 AM 3 8:45 CDT AM CDT Danielle Bender MD LAB_1 Performing Organization Address City/[facility] Phon e Number [employer] [phone] [facility] [address] [place] [phone] TSH, SENSITIVE (03/25/2003 8:44 AM CDT) athologist Signature TSH 2.86 0.30 - 5.00 [facility] uIU/ml Thyroid Meds No [facility] Specimen Anatomical Collection Method Collection Time Receive d Time (Source) Location / / Volume Laterality 03/25/2003 8:44 AM 3 8:45 CDT AM CDT Danielle Bender MD LAB_1 Performing Organization Address [facility] Phon e Number [facility] [place] [phone] [facility] [address] [place] [phone] FERRITIN (03/25/2003 8:44 AM CDT) athologist Signature Ferritin 70 10 - 151 [facility] ng/ml Specimen Anatomical Collection Method Collection Time Receive d Time (Source) Location / / Volume Laterality 03/25/2003 8:44 AM 3 8:45 CDT AM CDT Danielle Bender MD LAB_1 Performing Organization Address City/[facility]/ZIP Code Phon e Number [facility] [phone] [facility] [address] [phone] (ABNORMAL) VIT B12 & FOLATE (03/25/2003 8:44 AM CDT) athologist Signature Vitamin B12 1855 (H) 211 - 911 [facility] pg/ml Folate >24.0 >3.0 ng/ml [facility] Specimen Anatomical Collection Method Collection Time Receive d Time (Source) Location / / Volume Laterality 03/25/2003 8:44 AM 3 8:45 CDT AM CDT Danielle Bender MD LAB_1 Performing Organization Address [facility] Phon e Number [facility] [phone] [facility] [address] [place] [phone] GLUCOSE - FASTING > 8 HRS FASTING (03/25/2003 8:44 AM CDT) athologist Signature Glucose 80 70 - 110 [facility] mg/dl Hours Fasting 12 hours [facility] Specimen Anatomical Collection Method Collection Time Receive d Time (Source) Location / / Volume Laterality 03/25/2003 8:44 AM 3 8:45 CDT AM CDT Danielle Bender MD LAB_1 Performing Organization Address [facility] Phon e Number [facility] [phone] [facility] [address] [place] [phone] IRON, TIBC, % SAT. (CALC.) (03/25/2003 8:44 AM CDT) athologist Signature Iron 78 40 - 180 [facility] mcg/dl TIBC 319 244 - 418 [facility] mcg/dl % Saturation, 24 20 - 50 % [facility] calc. Specimen Anatomical Collection Method Collection Time Receive d Time (Source) Location / / Volume Laterality 03/25/2003 8:44 AM 3 8:45 CDT AM CDT Danielle Bender MD LAB_1 Performing Organization Address [facility] Phon e Number [facility] [phone] [facility] [address] [place] [phone] CHOLESTEROL LIPID PANEL FAST >12HR FAST (03/25/2003 8:44 AM CDT) P athologist Signature Cholesterol 139 <200 mg/dl [facility] Triglyceride 65 <200 mg/dl [facility] HDL 38 >35 mg/dl [facility] LDL, Calc. 88 mg/dl [facility] Hours Fasting 12 hours [facility] Specimen Anatomical Collection Method Collection Time Receive d Time (Source) Location / / Volume Laterality 03/25/2003 8:44 AM 3 8:45 CDT AM CDT Danielle Bender MD LAB_1 Performing Organization Address [facility] Phon e Number [employer] [phone] [phone] PROTIME (03/25/2003 8:44 AM CDT) [facility] gist Method Time Signature Protime 14.1 12.0 - [facility] 15.2 sec Protime PLEASE NOTE [facility] CHANGE IN EXPECTED VALUES Coumadin No [facility] INR 1.1 [facility] Specimen Anatomical Collection Method Collection Time Receive d Time (Source) Location / / Volume Laterality 03/25/2003 8:44 AM 3 8:45 CDT AM CDT Danielle Bender MD LAB_1 Performing Organization Address [facility]/ZIP Code Phon e Number [facility] [place] [phone] [facility] [address] [place] [phone] HEMOGLOBIN, BLOOD (03/25/2003 8:44 AM CDT) P athologist Signature Hemoglobin 13.8 12.0 - 16.0 [facility] g/dl Specimen Anatomical Collection Method Collection Time Receive d Time (Source) Location / / Volume Laterality 03/25/2003 8:44 AM 3 8:45 CDT AM CDT Danielle Bender MD LAB_1 Performing Organization Address City/State/ZIP Code Phon e Number [facility] [phone] [facility] [address] [phone] documented in this encounter Visit Diagnoses Not on filedocumented in this encounter Care Teams Ground Surveillance Systems Operator Relationship Specialty Start Date End Date Danielle Bender MD PCP - General 04/09/01 08/07/[address] [place] [address] documented as of this encounter
--- OUTSIDE RECORDS SUMMARY | 2022-01-29 17:54 | XMS_ITS | Encounter Summary ---
:1960 Author Organization [employer] Address [address] [place] [address] Care Team Providers Name Role Phone Danielle Bender MD Primary Care Provider Encounter Details Date Type Department Care Team Description 06/12/2002 Correspondence [facility] Rajeev Cho, RX REF [place] [facility] MD [address] [place] [phone] Social History Tobacco Use Types Packs/Day Years Used Date Smoking Tobacco: Never Assessed Sex Assigned at Date Recorded Not on file documented as of this encounter Progress Notes Jailene Cho - 06/12/2002 12:00 AM GOLF CART MECHANIC CART MECHANIC documented in this encounter Plan of Treatment Not on filedocumented as of this encounter Visit Diagnoses Not on filedocumented in this encounter Care Teams Budget Assistant Relationship Specialty Start Date End Date Danielle Bender MD PCP - General 04/09/01 08/07/10 [address] [facility] [address] [place] [address] documented as of this encounter
--- OUTSIDE RECORDS SUMMARY | 2022-01-29 17:54 | XMS_ITS | Encounter Summary ---
:1960 Author Organization [employer] Address [address], [place] [address] Care Team Providers Name Role Phone Danielle Bender MD Primary Care Provider Reason for Visit Reason Comments PRE-OP EXAM Encounter Details Date Type Department Care Team Description 06/28/2004 Office Visit KruppDanielle Lao, PREOP EXAM OTHER Internal Medicine MD SPECIFIED (Primary [address] Dx) [facility] [place] [address] [phone] (Wo rk) Social History Tobacco Use Types Packs/Day Years Used Date Smoking Tobacco: Never Alcohol Use Standard Drinks/Week Comments Yes 0 (1 standard drink = 0.6 oz pure alcoho l) mod Sex Assigned at Date Recorded Not on file documented as of this encounter Last Filed Vital Signs Vital Sign Reading Time Taken Comments Blood Pressure 112/60 06/28/2004 9:29 AM ROD MACHINE OPERATOR Pulse 60 06/28/2004 9:29 AM ROD MACHINE OPERATOR Temperature 36.3 ??C (97.4 ??F) 06/28/2004 9:29 AM ROD MACHINE OPERATOR Respiratory Rate 16 06/28/2004 9:29 AM ROD MACHINE OPERATOR Oxygen Saturation - - Inhaled Oxygen Concentration - - Weight 79 kg (174 lb 3.2 oz) 06/28/2004 9:29 AM ROD MACHINE OPERATOR Height 165.1 cm (5' 5) 06/28/2004 9:29 AM ROD MACHINE OPERATOR Body Mass Index 28.99 06/28/2004 9:29 AM ROD MACHINE OPERATOR documented in this encounter Progress Notes 06/28/2004 9:20 AM ROD MACHINE OPERATOR Paty Watts, medical record [id number], is a 43 yr female who is here for evaluation for fitness for surgery. She is scheduled for surgery at [facility] on 07/04/[address] Sams. HPI: abdominoplasty Her primary physician is Danielle Bender MD. 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, was on BCP at the time, Factor V Leiden positive, was on coumadin for 6mo B12 DEFIC ANEMIA NEC Comment: secondary to gastric bypass Review of patient's past surgical history indicates: GASTRIC BYPASS,OBESITY,SB YAYA 09/23 REMOVAL OF GALLBLADDER 09/23 Comment: done during gastric bypass surgery Patient Active Problem List: DEPRESSIVE DISORDER NOS[311] B12 DEFIC ANEMIA NEC[281.1] DEEP VENOUS PHLEBITIS-LEG NEC[451.19] Current outpatient prescriptions: ASPIRIN EC 81MG ORAL TABS,3 TABLETS DAILY,Disp: ,Rfl: 0 CYANOCOBALAMIN 1000 MCG SL SUBL,1 every other day,Disp: 0,Rfl: 99 PIRBUTEROL ACETATE (MAXAIR AUTOHALER) 200MCG/INH INHALER,use as directed prn,Disp: 0,Rfl: 0 CALCIUM + D 600MG-200UNIT ORAL TABS,3 TABLET DAILY,Disp: ,Rfl: 0 FLINTSTONES PLUS IRON OR CHEW,2 per day,Disp: ,Rfl: 0 PHYSICAL EXAMINATION The patient appears healthy, in no acute distress and mobile without assistance Vital Signs: BP 112/60 Pulse 60 Temp 97.4 Resp 16 Ht 5' 5 (1.65m) Wt 174 lbs 3 oz (79.0kg) Neck: supple, no lymphadenopathy and no thyromegaly Heart: regular rate and rhythm, normal S1 and S2 without murmur or click Lungs: clear to auscultation, no wheezes, no crackles Abdomen: Abdomen soft, non-tender. BS normal. No masses, organomegaly Edema: no EKG: normal sinus rhythm, bradycardia LAB: See attached. Paty Watts a 43 yr female is Fit for surgery. No major medical issues for planned procedure for a low risk surgical procedure. Recommended that Paty Watts hold their usual medications the morning of surgery, avoid aspirinfor 7 days prior to surgery and avoid ibuprofen products for 5 days prior to surgery Signature: Date: Danielle Bender MD documented in this encounter Nursing Notes 06/28/2004 9:20 AM CST >> DORIS JOYCE 06/28/2004 9:33 am PRE-OP QUESTIONS:abdominal[facility] at [facility] 07/04[facility]04 dr sams Tightening or pressure in chest with activity: no. Swelling of feet or ankles at times: no. Wakes at night with shortness of breath : no. Able to sleep flat at night: Yes. Troubled by shortness of breath when: Walking on the level: no. Climbing a flight of stairs: no. Sleeping at night: no. Get pains in the calves of the legs when walking: no. Chest ever sound wheezy or whistling: no. Cough, runny nose, or cold symptoms: Now: no In the last two weeks: yes Have a chronic cough: no. Family member with serious bleeding problem: no. Taken any aspirin (or products containing aspirin) in the last two weeks: yes.on hold since 06/19 for surg Problem with anemia or been told to take iron pills: no. You or any of your relatives ever have a problem with anesthesia: no. Additional Questions: NONE Current outpatient prescriptions: ASPIRIN EC 81MG ORAL TABS,3 TABLETS DAILY,Disp: ,Rfl: 0 CYANOCOBALAMIN [address] SUBL,1 every other day,Disp: 0,Rfl: 99 PIRBUTEROL ACETATE (MAXAIR AUTOHALER) 200MCG/INH INHALER,use as directed prn,Disp: 0,Rfl: 0 CALCIUM + D 600MG-200UNIT ORAL TABS,3 TABLET DAILY,Disp: ,Rfl: 0 FLINTSTONES PLUS IRON OR CHEW,2 per day,Disp: ,Rfl: 0 documented in this encounter Plan of Treatment Not on filedocumented as of this encounter Procedures Procedure Name Priority Date/Time Associated Diagnosis Comme nts COMPLETE BLOOD Routine 06/28/2004 10:43 AM Preop Exam Other Re sults for this COUNT-NO DIFF ROD MACHINE OPERATOR Specified procedure are in the results section. ECG TRACING Waiting 06/28/2004 10:43 AM Preop Exam Other Resu lts for this ROD MACHINE OPERATOR Specified procedure are i n the results section. documented in this encounter Results (ABNORMAL) HEMOGRAM/PLTS (06/28/2004 10:43 AM ROD MACHINE OPERATOR) P athologist Signature WBC 5.0 3.6 - 11.0 [facility] k/ul Comment: Pre-Op [facility],[id number] RBC 4.06 4.0 - 5.2 M/ul [facility] Hemoglobin 13.9 12.0 - 16.0 g/dl [facility] RS HCT 40.2 36.0 - 46.0 % [facility] MCV 99.0 80 - 100 fl [facility] MCH 34.2 (H) 26 - 34 pg [facility] MCHC 34.5 32 - 36 % [facility] RDW 13.5 11.5 - 14.5 % [facility] Platelets 198 150 - 450 k/ul [facility] Specimen Anatomical Collection Method Collection Time Receive d Time (Source) Location / / Volume Laterality 06/28/2004 10:43 06/28/2004 AM ROD MACHINE OPERATOR 10:44 AM ROD MACHINE OPERATOR Danielle Bender MD LAB_1 Performing Organization Address City/State/ZIP Code Phon e Number [facility] [phone] [facility] [address] [phone] EKG TRACING (06/28/2004 10:43 AM ROD MACHINE OPERATOR) [facility] gist Method Time Signature EKG See Separate [facility] Report Specimen Anatomical Collection Method Collection Time Receive d Time (Source) Location / / Volume Laterality 06/28/2004 10:43 06/28/2004 AM ROD MACHINE OPERATOR 10:44 AM ROD MACHINE OPERATOR Danielle Bender MD EKG Performing Organization Address City/State/ZIP Code Phon e Number [facility] [phone] [facility] [address] [place] [phone] documented in this encounter Visit Diagnoses Diagnosis Other specified pre-operative examinatio n - Primary documented in this encounter Care Teams Executive Community Planning Relationship Specialty Start Date End Date Danielle Bender MD PCP - General 04/09/[address] [place] [address] documented as of this encounter
--- OUTSIDE RECORDS SUMMARY | 2022-01-29 17:54 | XMS_ITS | Encounter Summary ---
:1960 Author Organization [employer] Address [address] [place] [address] Care Team Providers Name Role Phone Danielle Bender MD Primary Care Provider Encounter Details Date Type Department Care Team Description 11/01/2002 Telephone [place] [facility] Purvi Landis, RN Department [address] [address] [facility], [address] [phone] Social History Tobacco Use Types Packs/Day Years Used Date Smoking Tobacco: Never Alcohol Use Standard Drinks/Week Comments Yes 0 (1 standard drink = 0.6 oz pure alcoho l) mod Sex Assigned at Date Recorded Not on file documented as of this encounter Progress Notes Purvi Landis - 11/01/2002 12:00 AM CDT documented in this encounter Plan of Treatment Not on filedocumented as of this encounter Visit Diagnoses Not on filedocumented in this encounter Care Teams Apartment Community Manager Relationship Specialty Start Date End Date Danielle Bender MD PCP - General 04/09/01 08/07/[address] [place] [address] documented as of this encounter
--- OUTSIDE RECORDS SUMMARY | 2022-01-29 17:54 | XMS_ITS | Encounter Summary ---
:1960 Author Organization [employer] [facility] [employer] Address [address] [place] [address] Care Team Providers Name Role Phone Danielle Bender MD Primary Care Provider Encounter Details Date Type Department Care Team Description 06/12/2002 Correspondence [facility] Rajeev Cho, RX REF [place] Medicine MD [address] [place] [phone] Social History Tobacco Use Types Packs/Day Years Used Date Smoking Tobacco: Never Assessed Sex Assigned at Date Recorded Not on file documented as of this encounter Progress Notes Jailene Cho - 06/12/2002 12:00 AM CASINO BANKER NO BANKER documented in this encounter Plan of Treatment Not on filedocumented as of this encounter Visit Diagnoses Not on filedocumented in this encounter Care Teams Gill Net Stringer Relationship Specialty Start Date End Date Danielle Bender MD PCP - General 04/09/01 08/07/10 14[address] [facility] [address] [place] [address] documented as of this encounter
--- OUTSIDE RECORDS SUMMARY | 2022-01-29 17:54 | XMS_ITS | Encounter Summary ---
:1960 Author Organization [facility] Address [address] [place] [address] Care Team Providers Name Role Phone Danielle Bender MD Primary Care Provider Encounter Details Date Type Department Care Team Description 09/05/2003 Orders Only [place] [facility] Danielle Linares MD [facility] [address] [place] [address] [place], [place] [phone] (Wo rk) Social History Tobacco Use Types [...] Associated Diagnosis Comme nts HEMOGLOBIN, BLOOD Routine 09/05/2003 8:49 AM Resu lts for this FIRE PROTECTION ENGINEER procedure are i n the results section. VIT B12 & FOLATE Routine 09/05/2003 8:49 AM Resul ts for this FIRE PROTECTION ENGINEER procedure are i n the results section. LIPID PANEL, FAST > Routine 09/05/2003 8:49 AM Re sults for this 12 HOUR FIRE PROTECTION ENGINEER procedure are i n the results section. FERRITIN Routine 09/05/2003 8:49 AM Results f or this FIRE PROTECTION ENGINEER procedure are i n the results section. TSH, SENSITIVE Routine 09/05/2003 8:49 AM Results for this (WITH REFLEX) FIRE PROTECTION ENGINEER procedure are in the results section. IRON PROFILE Routine 09/05/2003 8:49 AM Results f or this (IRON,TIBC,%SAT.(CA FIRE PROTECTION ENGINEER procedur e are in LC)) the results section. GLUCOSE - FASTING > Routine 09/05/2003 8:49 AM Re sults for this 8 HRS FASTING FIRE PROTECTION ENGINEER procedure are in the results section. documented in this encounter Results TSH, SENSITIVE (09/05/2003 8:49 AM FIRE PROTECTION ENGINEER) athologist Signature TSH 2.18 0.30 - 5.00 [facility] uIU/ml Thyroid Meds No [facility] Specimen Anatomical Collection Method Collection Time Receive d Time (Source) Location / / Volume Laterality 09/05/2003 8:49 AM 4 8:50 FIRE PROTECTION ENGINEER AM FIRE PROTECTION ENGINEER Danielle Bender MD LAB_1 Performing Organization Address [facility] Phon e Number [facility] [phone] [phone] CHOLESTEROL LIPID PANEL FAST >12HR FAST (09/05/2003 8:49 AM FIRE PROTECTION ENGINEER) athologist Signature Cholesterol 127 <200 mg/dl [facility] Triglyceride 71 <200 mg/dl [facility] HDL 54 >35 mg/dl [facility] LDL, Calc. 59 mg/dl [facility] Hours Fasting 12 hours [facility] Specimen Anatomical Collection Method Collection Time Receive d Time (Source) Location / / Volume Laterality 09/05/2003 8:49 AM 4 8:50 FIRE PROTECTION ENGINEER AM FIRE PROTECTION ENGINEER Danielle Bender MD LAB_1 Performing Organization Address [facility] Phon e Number [facility] [phone] [facility] [address] [place] [phone] IRON, TIBC, % SAT. (CALC.) (09/05/2003 8:49 AM FIRE PROTECTION ENGINEER) athologist Signature Iron 148 40 - 180 [facility] mcg/dl TIBC, 347 250 - 450 [facility] Calculated mcg/dl % Saturation, 43 20 - 50 % [facility] calc. Specimen Anatomical Collection Method Collection Time Receive d Time (Source) Location / / Volume Laterality 09/05/2003 8:49 AM 4 8:50 FIRE PROTECTION ENGINEER AM FIRE PROTECTION ENGINEER Danielle Bender MD LAB_1 Performing Organization Address [facility]/ZIP [facility] [place]on e Number [facility] [phone] [facility] [address] [place] [phone] HEMOGLOBIN, BLOOD (09/05/2003 8:49 AM FIRE PROTECTION ENGINEER) P athologist Signature Hemoglobin 13.3 12.0 - 16.0 [facility] g/dl Specimen Anatomical Collection Method Collection Time Receive d Time (Source) Location / / Volume Laterality 09/05/2003 8:49 AM 4 8:50 FIRE PROTECTION ENGINEER AM FIRE PROTECTION ENGINEER Danielle Bender MD LAB_1 Performing Organization Address [facility] Phon e Number [facility] [phone] [facility] [address] [place] [phone] GLUCOSE - FASTING > 8 HRS FASTING (09/05/2003 8:49 AM FIRE PROTECTION ENGINEER) P athologist Signature Glucose 79 70 - 110 [facility] mg/dl Hours Fasting 12 hours [facility] Specimen Anatomical Collection Method Collection Time Receive d Time (Source) Location / / Volume Laterality 09/05/2003 8:49 AM 4 8:50 FIRE PROTECTION ENGINEER AM FIRE PROTECTION ENGINEER Danielle Bender MD LAB_1 Performing Organization Address [facility] Phon e Number [facility] [phone] [facility] [address] [place] [phone] FERRITIN (09/05/2003 8:49 AM FIRE PROTECTION ENGINEER) P athologist Signature Ferritin 46 10 - 151 [facility] ng/ml Specimen Anatomical Collection Method Collection Time Receive d Time (Source) Location / / Volume Laterality 09/05/2003 8:49 AM 4 8:50 FIRE PROTECTION ENGINEER AM FIRE PROTECTION ENGINEER Danielle Bender MD LAB_1 Performing Organization Address [facility]/ZIP Code Phon e Number [facility] [phone] [facility] [address] [place] [phone] (ABNORMAL) VIT B12 & FOLATE (09/05/2003 8:49 AM FIRE PROTECTION ENGINEER) Analysis Performed At Patho logist Time Signature Vitamin B12 >2000 (H) 211 - 911 [facility] pg/ml Folate >24.0 >3.0 ng/ml [facility] Specimen Anatomical Collection Method Collection Time Receive d Time (Source) Location / / Volume Laterality 09/05/2003 8:49 AM 8:50 FIRE PROTECTION ENGINEER AM FIRE PROTECTION ENGINEER Danielle Bender MD LAB_1 Performing Organization Address [facility] Phon e Number [facility] [phone] [phone] documented in this encounter Visit Diagnoses Not on filedocumented in this encounter Care Teams Senior Ios Software Engineer Relationship Specialty Start Date End Date Danielle Bender MD PCP - General 04/09/01 08/07/[address] [place] [address] documented as of this encounter
--- OUTSIDE RECORDS SUMMARY | 2022-01-29 17:54 | XMS_ITS | Encounter Summary ---
:1960 Author Organization [facility] Address [address] [place] [address] Care Team Providers Name Role Phone Danielle Bender MD Primary Care Provider Encounter Details Date Type Department Care Team Description 11/01/2002 Orders Only External to Unknown, Physici an [address] [place] [address] (Wo rk) Social History Tobacco Use Types Packs/Day Years Used Date Smoking Tobacco: Never Alcohol Use Standard Drinks/Week Comments Yes 0 (1 standard drink = 0.6 oz pure alcoho l) mod Sex Assigned at Date Recorded Not on file documented as of this encounter Procedure Notes Danielle Bender - 11/01/2002 12:00 AM CDTAssociated Order(s): ULTRASOUND SC documented in this encounter Plan of Treatment Not on filedocumented as of this encounter Procedures Procedure Name Priority Date/Time Associated Diagnosis Comme nts ULTRASOUND SC 11/01/2002 12:00 AM Results for this CDT procedure are i n the results section . documented in this encounter Results ULTRASOUND SC (11/01/2002 12:00 AM CDT) Anatomical Region Laterality Modality Other Narrative 11/01/2002 12:00 AM CDT This result has an attachment that is no t available. Ordered by an unspecified provider. Transcriptions Danielle Bender - 11/01/2002 12:00 AM CDT Physician Unknown DUMMY/OTHER/AR documented in this encounter Visit Diagnoses Not on filedocumented in this encounter Care Teams Wiring Mechanic Relationship Specialty Start Date End Date Danielle Bender MD PCP - General 04/09/01 08/07/10 1430 [facility] [address] [place] [address] documented as of this encounter
--- OUTSIDE RECORDS SUMMARY | 2022-01-29 17:54 | XMS_ITS | Encounter Summary ---
:1960 Author Organization [employer] Address [address] [place] [address] Care Team Providers Name Role Phone Danielle Bender MD Primary Care Provider Encounter Details Date Type Department Care Team Description 07/09/2004 Hospital Reid Mckenna MD [address] [place], [place] [address] (Wo rk) Social History Tobacco Use Types Packs/Day Years Used Date Smoking Tobacco: Never Alcohol Use Standard Drinks/Week Comments Yes 0 (1 standard drink = 0.6 oz pure alcoho l) mod Sex Assigned at Date Recorded Not on file documented as of this encounter Procedure Notes Reid Mckenna - 07/09/2004 12:00 AM PREDATORY HUNTER DATE OF SURGERY: 07/09/2004 STAFF SURGEON: Reid Mckenna MD PREOPERATIVE DIAGNOSIS: Abdominal wall laxity. POSTOPERATIVE DIAGNOSIS: Abdominal wall laxity. NAME OF OPERATION: Abdominoplasty. DESCRIPTION OF PROCEDURE: The patient was marked out for high lateral tension abdominoplasty. She has lost considerable weight since her bariatric surgery, and she is interested primarily in having the anterior abdomen tightened up and smoothed and eliminating the pannus. Preoperative photos have been taken. The patient was brought to surgery and placed under general anesthesia, and the lower incision was injected with 0.25% Marcaine with epinephrine. The incision was made and carried down, beveling superiorly to the fascia, elevating the flap to the umbilical area. the umbilicus itself was then cut out, and the flap was continued to be elevated to the costal margin and xiphoid region. The table was flexed then, and the excess was resected, removing 4.9 pounds. Hemostasis was obtained distally, and she was then marked for the imbrication which was done with interrupted [id number] sutures of #1 Ticron. This had been widest at 11 mm. Two round Guillermo-Vernon drains were placed into inferolateral stab wounds and secured with 2-0 silk sutures. Closure was accomplished with 2 layers of 2-0 Vicryl at Marguerite fascia and subcuticular levels. In the process of closing, I marked out and opened the new site for the umbilicus and sewed that into place with 2-0 Vicryl from the dermis to the fascia on each side and above, then with 3-0 Vicryl subcuticularly. Small dog ears laterally were excised, and she was closed there with 2-0 Vicryl additionally. The skin was coapted throughout with joanna. She was dressed with ABD and a binder. Estimated blood loss was about 200 cc. mmj Dictated: 07/09/2004 16:10:41 Reid Mckenna MD Transcribed: 07/10/2004 14:22:37 Doc #: [id number] cc: Danielle Bender MD, Referring DO NOT SIGN UNLESS PRESENT FOR PROCEDURE I attest that I was present for and participated in the tilley portions of this procedure(s) in compliance with the Health Care Financing Administration Teaching Physician Guidelines. Signed Date Regions Staff Physician 1 Page 1 Patient Name: PATY YEAGER Visit Date: 07/09/2004 OUTPATIENT OPERATIVE REPORT CONFIDENTIAL MEDICAL RECORD [address] [phone] Page 1 Patient: PATY YEAGER Location: [facility] HPN: [id number] Date of : 1960 Visit Date: 07/09/2004 OUTPATIENT OPERATIVE REPORT ATORY HUNTER documented in this encounter Plan of Treatment Not on filedocumented as of this encounter Visit Diagnoses Not on filedocumented in this encounter Care Teams Director Custom Relationship Specialty Start Date End Date Danielle Bender MD PCP - General 04/09/01 08/07/10 1430 [facility] [address] [place] [address] documented as of this encounter
--- OUTSIDE RECORDS SUMMARY | 2022-01-29 17:54 | XMS_ITS | Encounter Summary ---
:1960 Author Organization [facility] Address [address] [place] [address] Care Team Providers Name Role Phone Danielle Bender MD Primary Care Provider Encounter Details Date Type Department Care Team Description 03/19/2002 Orders Only Danielle Bender MD [address] [place] [address] (Wo rk) Social History Tobacco Use Types Packs/Day Years Used Date Smoking Tobacco: Never Assessed Sex Assigned at Date Recorded Not on file documented as of this encounter Plan of Treatment Not on filedocumented as of this encounter Procedures Procedure Name Priority Date/Time Associated Diagnosis Comme nts PROTEIN S ACTIVITY Routine 03/19/2002 8:26 AM Res ults for this CDT procedure are i n the results section. PROTEIN C ACTIVITY Routine 03/19/2002 8:26 AM Res ults for this CDT procedure are i n the results section. HGB A1C Routine 03/19/2002 8:26 AM Results f or this CDT procedure are i n the results section. documented in this encounter Results PROTEIN S ACTIVITY (03/19/2002 8:26 AM CDT) [facility] Method Time Signature Protein S 76 56 - 158 [facility] Oncology % Protein S Performed at [facility] Specimen Anatomical Collection Method Collection Time Receive d Time (Source) Location / / Volume Laterality 03/19/2002 8:26 AM 09/27/200 2 8:27 CDT AM CDT Danielle Bender MD LAB_1 Performing Organization Address City/[facility]/ZIP Code Phon e Number [facility] [employer] [phone] [phone] PROTEIN C ACTIVITY (03/19/2002 8:26 AM CDT) [facility] gist Method Time Signature Protein C 118 62 - 148 [facility] Activity % Protein C Performed at [facility] Specimen Anatomical Collection Method Collection Time Receive d Time (Source) Location / / Volume Laterality 03/19/2002 8:26 AM 2 8:27 CDT AM CDT Danielle Bender MD LAB_1 Performing Organization Address City/[facility]/ZIP Code Phon e Number [facility] [phone] [phone] (ABNORMAL) HGB A1C (03/19/2002 8:26 AM CDT) P athologist Signature Hgb A1c 6.2 (H) 4.3 - 6.1 % [facility] Specimen Anatomical Collection Method Collection Time Receive d Time (Source) Location / / Volume Laterality 03/19/2002 8:26 AM 2 8:27 CDT AM CDT Danielle Bender MD LAB_1 Performing Organization Address City/[facility] Code Phon e Number [facility] [employer] [phone] [phone] documented in this encounter Visit Diagnoses Not on filedocumented in this encounter Care Teams Skilled Laborer Relationship Specialty Start Date End Date Danielle Bender MD PCP - General 04/09/01 08/07/[address] [place] [address] documented as of this encounter
--- OUTSIDE RECORDS SUMMARY | 2022-01-29 17:54 | XMS_ITS | Encounter Summary ---
:1960 Author Organization [facility] Address [address] [place] [address] Care Team Providers Name Role Phone Danielle Bender MD Primary Care Provider Encounter Details Date Type Department Care Team Description 06/28/2004 Correspondence None Unknown, Physici an CONSENT/RELEASE [address] [place] [address] (Wo rk) Social History Tobacco Use Types Packs/Day Years Used Date Smoking Tobacco: Never Alcohol Use Standard Drinks/Week Comments Yes 0 (1 standard drink = 0.6 oz pure alcoho l) mod Sex Assigned at Date Recorded Not on file documented as of this encounter Progress Notes Unknown, Physician - 06/28/2004 12:00 AM LORRY WEIGHER documented in this encounter Plan of Treatment Not on filedocumented as of this encounter Visit Diagnoses Not on filedocumented in this encounter Care Teams Service Architect Relationship Specialty Start Date End Date Danielle Bender MD PCP - General 04/09/01 08/07/[address] [place] [address] documented as of this encounter
--- OUTSIDE RECORDS SUMMARY | 2022-01-29 17:54 | XMS_ITS | Encounter Summary ---
:1960 Author Organization [employer] Address [address] [place] [address] Care Team Providers Name Role Phone Danielle Bender MD Primary Care Provider Reason for Visit Reason Onset Date Comments SURGERY, SURGICAL, TO SCHEDULE 07/04/2004 Encounter Details Date Type Department Care Team Description 07/04/2004 Telephone [place] Danielle Bender, SURGE RY, SURGICAL, TO Internal Medicine MD SCHEDULE 14[address] [facility] [address] [place] [address] [phone] (Wo rk) Social History Tobacco Use Types Packs/Day Years Used Date Smoking Tobacco: Never Alcohol Use Standard Drinks/Week Comments Yes 0 (1 standard drink = 0.6 oz pure alcoho l) mod Sex Assigned at Date Recorded Not on file documented as of this encounter Nursing Notes 07/04/2004 11:59 PM 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 Appt. scheduled with adult nurse for teaching @ 2:30pm today. Wilma Gibson, RN 4:09 PM >> DANIELLE BENDER Wed Jul 04, 2004 12:[address] Mckenna called regarding patient's Factor V Leiden deficiency, questioning if she should have loven ox postop for a few weeks. Called Dr Chow in hematology and discussed the patient's situation overthe phone and she felt with the fact she has had DVT in the past, it would be safer to have her on lovenox for [address] Mckenna and discussed this with him. Will have nurses call layne ent and try to get her in today for lovenox teaching. If we can't get her in for lovenox teaching to day, try for UC on Friday. Plan lovenox 30mg SQ daily for 2 weeks, then resume aspirin. Danielle Bender MD documented in this encounter Plan of Treatment Not on filedocumented as of this encounter Visit Diagnoses Diagnosis Phlebitis and thrombophlebitis of other deep vessels of lower extremities - Primary documented in this encounter Care Teams Drafter Detail Relationship Specialty Start Date End Date Danielle Bender MD PCP - General 04/09/01 08/07/10 [address] [place] [address] documented as of this encounter
--- OUTSIDE RECORDS SUMMARY | 2022-01-29 17:54 | XMS_ITS | Encounter Summary ---
:1960 Author Organization [employer] Address [address] [place] [address] Care Team Providers Name Role Phone Danielle Bender MD Primary Care Provider Encounter Details Date Type Department Care Team Description 06/28/2004 Orders Only [place] [facility] Unknown , Physician Medicine [address] [address] [place] [address] [phone] Social History Tobacco Use Types Packs/Day Years Used Date Smoking Tobacco: Never Alcohol Use Standard Drinks/Week Comments Yes 0 (1 standard drink = 0.6 oz pure alcoho l) mod Sex Assigned at Date Recorded Not on file documented as of this encounter Procedure Notes Danielle Bender - 06/28/2004 12:00 AM CSTAssociated Order(s): EKG S SELECTOR documented in this encounter Plan of Treatment Not on filedocumented as of this encounter Procedures Procedure Name Priority Date/Time Associated Diagnosis Comme nts EKG 06/28/2004 12:00 AM Results for this GLASS SELECTOR procedure are i n the results section . documented in this encounter Results EKG (06/28/2004 12:00 AM GLASS SELECTOR) Narrative 06/28/2004 12:00 AM GLASS SELECTOR This result has an attachment that is no t available. Ordered by an unspecified provider. Transcriptions Danielle Bender - 06/28/2004 12:00 AM GLASS SELECTOR Physician Unknown EKG documented in this encounter Visit Diagnoses Not on filedocumented in this encounter Care Teams Mobile Phone Salesperson Relationship Specialty Start Date End Date Danielle Bender MD PCP - General 04/09/01 08/07/10 [address] [place] [address] documented as of this encounter
--- OUTSIDE RECORDS SUMMARY | 2022-01-29 17:54 | XMS_ITS | Encounter Summary ---
:1960 Author Organization [employer] Address [address] [place] [address] Care Team Providers Name Role Phone Danielle Bender MD Primary Care Provider Reason for Visit Reason Comments RECTAL BLEEDING Encounter Details Date Type Department Care Team Description 12/14/2002 Telephone [facility] Bridgett Galarza, RN RECTAL BLEEDING [address] [place], [place] [address] [place], [place] [address] Social History Tobacco Use Types Packs/Day Years Used Date Smoking Tobacco: Never Alcohol Use Standard Drinks/Week Comments Yes 0 (1 standard drink = 0.6 oz pure alcoho l) mod Sex Assigned at Date Recorded Not on file documented as of this encounter Nursing Notes 12/14/2002 11:59 PM CDT >> BRIDGETT Dale Dec 14, 2002 7:40 AM >> CALL RECEIVED. Contact: Gastric bypass surgery 2 months ago. Has been having some trouble with constipation, and has had blood intermittent approx 5 times over the past few months. TRIAGE REFERENCE: RECTAL BLEEDING - ADULT CNG (c) 2002 STAT SYMPTOMS: None per guideline ASSESSMENT: Onset: Intermittently. Quantity: just with wiping , >1/2 cup NO, Color: yellow and dark brown. Associated with BMs: YES. Stools are: hard, Has stooled 2 times in the past 24 hours. Abdominal pain: none Nausea and/or vomiting none. Use of NSAIDs (ASA, Ibuprophen): YES: daily for hx of blood clots. Has factor V. Use of anticoagulants: YES: asa. Use of Pepto Bismal or has eaten beets recently (may turn stools black): NO. PMH: factor V gastric bypass 2 months ago MEDICATIONS: YES: vits and asa MEDICATION ALLERGIES: NO MEDICAL EVALUATION-SAME DAY: (Cross References: Constipation, Hemorrhoids) HOME TREATMENT: Discussed per guideline PLAN: Appointment center to schedule appointment in UC or Clinic documented in this encounter Plan of Treatment Not on filedocumented as of this encounter Visit Diagnoses Not on filedocumented in this encounter Care Teams Warehouse Order Selector Relationship Specialty Start Date End Date Danielle Bender MD PCP - General 04/09/01 08/07/10 1430 [facility] [address] [place] [address] documented as of this encounter
--- OUTSIDE RECORDS SUMMARY | 2022-01-29 17:54 | XMS_ITS | Encounter Summary ---
:1960 Author Organization [facility] Address [address] [place] [address] Care Team Providers Name Role Phone Danielle Bender MD Primary Care Provider Encounter Details Date Type Department Care Team Description 12/14/2002 Correspondence None Unknown, Physici an CONSENT JOSE/AOB [address] [place] [address] (Wo rk) Social History Tobacco Use Types Packs/Day Years Used Date Smoking Tobacco: Never Alcohol Use Standard Drinks/Week Comments Yes 0 (1 standard drink = 0.6 oz pure alcoho l) mod Sex Assigned at Date Recorded Not on file documented as of this encounter Progress Notes Unknown, Physician - 12/14/2002 12:00 AM CDT documented in this encounter Plan of Treatment Not on filedocumented as of this encounter Visit Diagnoses Not on filedocumented in this encounter Care Teams Detective Bureau Chief Relationship Specialty Start Date End Date Danielle Bender MD PCP - General 04/09/01 08/07/[address] [place] [address] documented as of this encounter
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
--- OUTSIDE RECORDS SUMMARY | 2022-01-29 17:54 | XMS_ITS | Encounter Summary ---
:1960 Author Organization [employer] Address [address] [address] Care Team Providers Name Role Phone Danielle Bender MD Primary Care Provider Encounter Details Date Type Department Care Team Description 12/14/2002 Office Visit [place] Velma Dozier, RECTAL & ANAL HEMORRHAGE; applications systems engineer FOLLOW-UP EXAM NEC; [facility] [place] [address] [facility] OBESITY NOS; [place], [place] [facility]IN[facility] SEBORRHEIC DERMATITIS NOS [address] [place] [address] [place] [address] Social History Tobacco Use Types Packs/Day Years Used Date Smoking Tobacco: Never Alcohol Use Standard Drinks/Week Comments Yes 0 (1 standard drink = 0.6 oz pure alcoho l) mod Sex Assigned at Date Recorded Not on file documented as of this encounter Last Filed Vital Signs Vital Sign Reading Time Taken Comments Blood Pressure 110/70 12/14/2002 1:00 PM CDT Pulse 64 12/14/2002 1:00 PM CDT Temperature - - Respiratory Rate - - Oxygen Saturation - - Inhaled Oxygen Concentration - - Weight 120.7 kg (266 lb) 12/14/2002 1:00 PM CDT Height - - Body Mass Index 44.26 07/01/2002 3:00 PM GREENHOUSE ASSISTANT documented in this encounter Progress Notes 12/14/2002 1:00 PM CDT Paty Watts is here today for Blood in stool. Are you having other pain today, that you want to discuss with the provider? -YES Preventive Services up to date? -ADVISED TO FOLLOW UP WITH PRIMARY CARE PROVIDER Immunizations up to date? -{YES/NO,NEEDS:69807} Do you ever feel physically threatened or emotionally afraid? -{TYPE OF ABUSE:88719} Tobacco Status reviewed? (see History Social-Substance) -YES bottling attendant offered? -NOT APPLICABLE. Aspirin taken daily? -NO BP was taken on the RIGHT arm. Large cuff used? -YES Health Education given? -NO. Contact phone number [phone] (home) [phone] (work), alternate phone number . Samantha Roberts LPN 12/14/2002 1:05 PM Velma Dozier - 12/14/2002 12:00 AM CDTS: This is a 41-year-old who presents for evaluation of traces of bright red blood in her stool. She had gastric bypass on October 01. Since then she's lost 60 pounds but she's had a hard time balancing her meals. She's alternating between diarrhea and constipation. If she doesn't have a stool in 2 or 3 days, she'll start to take some Milk of Magnesia. Last week when she was having some hard stools, she had some blood on the tissue. She never had rectal bleeding before, however, mom was diagnosed with colon cancer at age 58 and maternal aunt also has been diagnosed with colon cancer in her late 50's, early 60's. She's having trouble with regurgitation if she eats too fast, eats too much, has too much sugar but between her stomach and her bowel movements she has no pain in the abdomen. She's just troubled because she can't quite figure out what will cause diarrhea and what will cause constipation. She's tried to drink 64 ounces of fluid a day but has a hard time getting that much in. She has not used other stool softeners or laxatives. We talked at length about using a stool softener, such as oral Colace or Colace syrup for children or a Dulcolax suppository if she doesn't have a bowel movement on a given day. She will use this at bedtime. She is encouraged to take more fluid because that will keep her stools softer and more liquid. If with more regular bowel movements she continues to have bleeding, we will have to do a colonoscopy. Incidentally, I note that she has significant seborrheic dermatitis and a lot of hair loss on her crown. This is long standing. She's using a combination shampoo and conditioner. She's encouraged to stop this immediately. She'll start Nizoral shampoo twice a week for two weeks, then weekly, and T-gel shampoo twice a week. On the other days she can use something different. This should improve her hair loss and also the scaly flaky nature of her scalp. A: 1. Bright red blood per rectum. 2. Obesity. 3. Status post gastric bypass. 4. Seborrheic dermatitis. P: As stated above. If patient continues to have blood in her stools despite more regular bowel movements which are easy to pass, she will contact me and we'll set up a colonoscopy. D: cc: documented in this encounter Plan of Treatment Not on filedocumented as of this encounter Visit Diagnoses Diagnosis Hemorrhage of rectum and anus Other follow-up examination(V67.59) Other follow-up examination Obesity, unspecified ([facility]) Obesity, unspecified Seborrheic dermatitis, unspecified documented in this encounter Care Teams Crystal Mounter Relationship Specialty Start Date End Date Danielle Bender MD PCP - General 04/09/01 08/07/[address] [place] [address] documented as of this encounter
--- OUTSIDE RECORDS SUMMARY | 2022-01-29 17:54 | XMS_ITS | Encounter Summary ---
:1960 Author Organization [employer] Address [address] [place] [address] Care Team Providers Name Role Phone Danielle Bender MD Primary Care Provider Encounter Details Date Type Department Care Team Description 09/08/2003 Correspondence [place] [facility] Danielle Bender MD F/U LABS Medicine [address] [place] [address] [phone] (Wo rk) Social History Tobacco Use Types Packs/Day Years Used Date Smoking Tobacco: Never Alcohol Use Standard Drinks/Week Comments Yes 0 (1 standard drink = 0.6 oz pure alcoho l) mod Sex Assigned at Date Recorded Not on file documented as of this encounter Progress Notes Danielle Bender - 09/08/2003 12:00 AM BODY CLEANER CLEANER documented in this encounter Plan of Treatment Not on filedocumented as of this encounter Visit Diagnoses Not on filedocumented in this encounter Care Teams Archivist Political History Relationship Specialty Start Date End Date Danielle Bender MD PCP - General 04/09/01 08/07/[address] [place] [address] documented as of this encounter
--- OUTSIDE RECORDS SUMMARY | 2022-01-29 17:54 | XMS_ITS | Encounter Summary ---
:1960 Author Organization [employer] Address [address], [place] [address] Care Team Providers Name Role Phone Danielle Bender MD Primary Care Provider Encounter Details Date Type Department Care Team Description 07/01/2002 Office Visit [place] Danielle Bender, GYNEC OLOGIC EXAMINATION; Internal Medicine SKIN HYPERTRO/ATROPH NOS; [address] [facility] [address] [place] [address] [phone] (Wo rk) Social History Tobacco Use Types Packs/Day Years Used Date Smoking Tobacco: Never Assessed Sex Assigned at Date Recorded Not on file documented as of this encounter Last Filed Vital Signs Vital Sign Reading Time Taken Comments Blood Pressure 120/80 07/01/2002 3:00 PM CLAY MINE CUTTING MACHINE OPERATOR Pulse 60 07/01/2002 3:00 PM CLAY MINE CUTTING MACHINE OPERATOR Temperature - - Respiratory Rate - - Oxygen Saturation - - Inhaled Oxygen Concentration - - Weight 146.1 kg (322 lb) 07/01/2002 3:00 PM CLAY MINE CUTTING MACHINE OPERATOR Height 165.1 cm (5' 5) 07/01/2002 3:00 PM CLAY MINE CUTTING MACHINE OPERATOR Body Mass Index 53.58 07/01/2002 3:00 PM CLAY MINE CUTTING MACHINE OPERATOR documented in this encounter Progress Notes 07/01/2002 3:00 PM CLAY MINE CUTTING MACHINE OPERATOR Paty Watts is here today for pap and pe last pap 05/23 mammo 06/24. Are you having pain today, that you want to discuss with the provider? -NO Method of control? -none PARA Patient does Self Breast exams? -YES. BP was taken on the RIGHT arm. Large cuff used- YES Preventive Services reviewed? -YES. Immunizations reviewed? -YES Do you ever feel physically threatened or emotionally afraid? -NO. Tobacco Status? -Never smoked morgue attendant offered? -NOT APPLICABLE. Aspirin taken daily? - YES Health Education given? -NO. patient's phone number [phone] (home) [phone] (work) Arminda Khanna LPN 07/01/2002 3:02 PM Current prescriptions: SERTRALINE HCL TABS 50 MG OR, 1 TABLET DAILY, D: 30, R: 0 ASPIRIN TABS 325 MG OR, , D: , R: 0 TRIAMCINOLONE ACETONIDE(INHAL) AERS 100 MCG/ACT IN, Inhale up to 4 puffs twice daily, or as directed. DO NOT EXCEED 16 PUFFS PER DAY., D: , R: 0 MAXAIR AUTOHALER AERB 200 MCG/INH IN, use prn, D: 1, R: 11 Danielle Bender - 07/01/2002 12:00 AM CSTS. This is a ewbwn[age]ahaax-[age]ka[age]-old white female who comes in today for preventative health care visit. She has a history of adult onset diabetes that is controlled by her diet and a history of hypercholesterolemia that is not being treated at this point. She has morbid obesity and she has been meeting with Dr. Edward to have gastric bypass surgery done. She said that she has met with his nurse, and has done the Psych exams. She does need to get a Fasting Cholesterol and Thyroid Level done and have those results fax'd to him. They have told her that she needs to lose 20-23 pounds before surgery and half of that needs to be lost before they will even schedule surgery for her. Apparently they want her to lose this weight to decrease her liver size and to make it easier for them to do the surgery. So she is very motivated to try and lose the weight. She otherwise has a history of a deep venous thrombosis in that right leg, history of Factor V [place] in the past and history of depression. She is single. 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 She works in [employer]. Doesn't smoke cigarettes. Family History - Significant for colon cancer in her mother at age 62 and in her maternal aunt and a brother with hypothyroidism. Review Of Systems - She states that she has not had a period for some time now, so we are going to check some hormone levels on her. She does have a history of mild asthma. Has taken herself off of the Azmacort Inhaler and is planning on having to restart that some time in the Spring. She is due for a Mammogram and we talked about doing colon cancer screening starting some time before she is 48, will start doing colonoscopies because of the family history. Medications - She takes Zoloft 50 mg daily and 1 aspirin per/day and a Max-Air Auto Inhaler and she did use this occasionally. No known drug allergies. She had a Pneumo-Vaccine in 1997. Review Of Systems - Otherwise is normal. She also has several skin tags that she would like me to try to either cut off or to freeze. O.On exam her height is5;5:, weight is322 pounds, pulse is 60 and blood pressure is 120/80. In general she is alert, pleasant and in no acute distress. HEENT: Her head is atraumatic, normocephalic. Bilateral tympanic membranes are clear. Oropharynx is clear. Neck: There is no cervical lymphadenopathy and no thyromegaly. Heart is regular rate and rhythm. Her lungs are clear to auscultation bilaterally. Abdomen has good bowel sounds, soft, nontender and not distended. No hepatosplenomegaly. Breasts: Bilaterally there are no masses, no skin lesions and no nipple discharge. No Axillary lymphadenopathy. Self breast exam was discussed. Gynecological: Normal external genitalia. We had to use the smallest speculum and did have a very difficult time seeing the cervix. Pap smear was taken. Uterus and ovarian adnexa were normal to palpation bilaterally. Extremities: There is no clubbing, cyanosis, or edema. Good pulses. With informed consent she had two small skin tags under her right axilla that were frozen with informed consent, one benign appearing mole on the right side of her neck that was frozen with consent and then 3 small skin tags under her left axilla that were frozen with consent. A. Preventative Health Care Visit. Skin Tags. P. She is going to come back in, in the next few weeks and get Fasting labs, Hemoglobin A1-C, Thyroid stimulating hormone, Follicle-stimulating hormone, Estradial Levels done. Will get her scheduled for another Mammogram and will let her know the results of the pap smear when that comes back. IN SUMMARY: ROUTINE HEALTH MAINTENANCE, SKIN TAGS cc: MINE CUTTING MACHINE OPERATOR documented in this encounter Plan of Treatment Not on filedocumented as of this encounter Visit Diagnoses Diagnosis Gynecological examination Unspecified hypertrophic and atrophic co ndition of skin Screening for malignant neoplasm of the cervix documented in this encounter Care Teams Solutions Sales Consultant Relationship Specialty Start Date End Date Danielle Bender MD PCP - General 04/09/01 08/07/10 [address] [facility] [address] [place] [address] documented as of this encounter
--- OUTSIDE RECORDS SUMMARY | 2022-01-29 17:54 | XMS_ITS | Encounter Summary ---
:1960 Author Organization [facility] Address [address] [place] [address] Care Team Providers Name Role Phone Danielle Bender MD Primary Care Provider Encounter Details Date Type Department Care Team Description 11/08/2003 Orders Only [place] [facility] Kelly Madsen, [address] GLASS RIBBON MACHINE OPERATOR, [place] [address] Social History Tobacco Use Types Packs/Day Years [...] Associated Diagnosis Comme nts COMPLETE BLOOD Routine 11/08/2003 10:07 AM Result s for this COUNT-W/DIFF CDT procedure are i n the results section. INR/PROTIME Routine 11/08/2003 10:07 AM Results for this CDT procedure are i n the results section. documented in this encounter Results INR/PROTIME (11/08/2003 10:07 AM CDT) P athologist Signature Protime 14.7 12.0 - 15.2 [facility] sec Coumadin No [facility] INR 1.1 [facility] Specimen Anatomical Collection Method Collection Time Receive d Time (Source) Location / / Volume Laterality 11/08/2003 10:07 11/08/2003 AM CDT 10:08 AM CDT Kelly Mcneal APRN, CNP LAB_1 Performing Organization Address [facility] Phon e Number [facility] [phone] [facility] [address] [place] [phone] (ABNORMAL) HEMOGRAM/PLTS/DIFF (11/08/2003 10:07 AM CDT) [facility] Method Time Signature WBC 7.0 3.6 - [facility] 11.0 k/ul RBC 3.89 (L) 4.0 - 5.2 [facility] M/ul Hemoglobin 12.9 12.0 - [facility] 16.0 g/dl HCT 38.0 36.0 - [facility] 46.0 % MCV 97.6 80 - 100 [facility] fl MCH 33.2 26 - 34 [facility] pg MCHC 34.0 32 - 36 % [facility] RDW 14.1 11.5 - [facility] 14.5 % Platelets 230 150 - 450 [facility] k/ul PMN/Band 61 43 - 72 % [facility] Lymph 31 17 - 43 % [facility] Centre 6 4 - 12 % [facility] Eos 2 0 - 8 % [facility] Baso 1 0 - 1 % [facility] Neutrophil 4.3 1.8 - 7.7 [facility] Absolute k/ul Lymph Absolute 2.2 1.0 - 4.8 [facility] k/ul Centre Absolute 0.4 0.1 - 0.7 [facility] k/ul Eos Absolute 0.1 0.0 - 0.5 [facility] k/ul Baso Absolute 0.0 0.0 - 0.2 [facility] k/ul Specimen Anatomical Collection Method Collection Time Receive d Time (Source) Location / / Volume Laterality 11/08/2003 10:07 11/08/2003 AM CDT 10:08 AM CDT Kelly Mcneal APRN, CNP LAB_1 Performing Organization Address [facility] Phon e Number [facility] [phone] [phone] documented in this encounter Visit Diagnoses Not on filedocumented in this encounter Care Teams Community Nurse Relationship Specialty Start Date End Date Danielle Bender MD PCP - General 04/09/01 08/07/10 [address] [facility] [address] [place] [address] documented as of this encounter
--- OUTSIDE RECORDS SUMMARY | 2022-01-29 17:54 | XMS_ITS | Encounter Summary ---
:1960 Author Organization [employer] Address [address] [address] Care Team Providers Name Role Phone Danielle Bender MD Primary Care Provider Encounter Details Date Type Department Care Team Description 09/27/2002 Office Visit [place] Danielle Bender, PREOP EXAM OTHER Internal Medicine MD SPECIFIED [address] [place] [address] [address] [place] [address] [phone] (Wo rk) Social History Tobacco Use Types Packs/Day Years Used Date Smoking Tobacco: Never Alcohol Use Standard Drinks/Week Comments Yes 0 (1 standard drink = 0.6 oz pure alcoho l) mod Sex Assigned at Date Recorded Not on file documented as of this encounter Last Filed Vital Signs Vital Sign Reading Time Taken Comments Blood Pressure 130/80 09/27/2002 3:00 PM CDT Pulse 72 09/27/2002 3:00 PM CDT Temperature 36.7 ??C (98 ??F) 09/27/2002 3:00 PM CDT Respiratory Rate 20 09/27/2002 3:00 PM CDT Oxygen Saturation - - Inhaled Oxygen Concentration - - Weight - - Height - - Body Mass Index - - documented in this encounter Progress Notes 09/27/2002 3:00 PM CDT The patient is here today for a follow up visit for pre op for gastric bypass at [facility]. ,the information documented from their last encounter on 10/01/02 has been verified. Current prescriptions: SERTRALINE HCL (ZOLOFT) 50MG ORAL TABS, 1 TABLET DAILY, D: 30, R: 0 MAXAIR AUTOHALER AERB 200 MCG/INH IN, use prn, D: 1, R: 11 Arminda Khanna LPN see pre op sheet Danielle Bender - 09/27/2002 12:00 AM CDTT is a 41-year-old white female who comes in today for a preop H P. She is going to be having a Nino-en-Y gastric bypass surgery done by Dr. Crowley at [facility] on Friday. Please see the H P preop form that will be scanned into the computer for further documentation. ASSESSMENT: Preop for gastric bypass surgery. PLAN: She is cleared for surgery. We are checking a complete blood count on her which is pending. IN SUMMARY: PREOP FOR GASTRIC BYPASS SURGERY cc: Danielle Bender - 09/27/2002 12:00 AM CDT documented in this encounter Plan of Treatment Not on filedocumented as of this encounter Visit Diagnoses Diagnosis Other specified pre-operative examinatio n documented in this encounter Care Teams Cook Tortilla Relationship Specialty Start Date End Date Danielle Bender MD PCP - General 04/09/01 08/07/[address] [place] [address] documented as of this encounter
--- OUTSIDE RECORDS SUMMARY | 2022-01-29 17:54 | XMS_ITS | Encounter Summary ---
:1960 Author Organization [employer] Address [address] [place] [address] Care Team Providers Name Role Phone Danielle Bender MD Primary Care Provider Reason for Visit Reason Onset Date Comments FYI 07/05/2004 Encounter Details Date Type Department Care Team Description 07/05/2004 Telephone [place] [facility] Danielle Bender MD FYI Medicine [address] [facility] [address] [address] [place] [address] [phone] Social History Tobacco Use Types Packs/Day Years Used Date Smoking Tobacco: Never Alcohol Use Standard Drinks/Week Comments Yes 0 (1 standard drink = 0.6 oz pure alcoho l) mod Sex Assigned at Date Recorded Not on file documented as of this encounter Nursing Notes 07/05/2004 11:59 PM 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 Danielle Bender MD >> OLGA JESUS [facility] Jul 05, 2004 3:26 PM Nurse calling to let you know that patient's surgery was cancelled and rescheduled to 07-09-04. Dr. Mkcenna ws out ill today, so unable to do surgery. Patient will start Lovenox shots on 06-23. Olga Jesus documented in this encounter Plan of Treatment Not on filedocumented as of this encounter Visit Diagnoses Not on filedocumented in this encounter Care Teams Passenger Booking Clerk Relationship Specialty Start Date End Date Danielle Bender MD PCP - General 04/09/01 08/07/10 [address] [facility] [address] [place] [address] documented as of this encounter
--- OUTSIDE RECORDS SUMMARY | 2022-01-29 17:54 | XMS_ITS | Encounter Summary ---
:1960 Author Organization [employer] Address [address] [place] [address] Care Team Providers Name Role Phone Danielle Bender MD Primary Care Provider Encounter Details Date Type Department Care Team Description 09/05/2003 Office Visit [facility] Danielle Bender, PREVE NTIVE CARE EXAM; Internal Medicine SCREENING MAL NEOP-CERVIX [address] [facility] [address] [place] [address] [phone] (Wo rk) Social History Tobacco Use Types Packs/Day Years Used Date Smoking Tobacco: Never Alcohol Use Standard Drinks/Week Comments Yes 0 (1 standard drink = 0.6 oz pure alcoho l) mod Sex Assigned at Date Recorded Not on file documented as of this encounter Last Filed Vital Signs Vital Sign Reading Time Taken Comments Blood Pressure 102/60 09/05/2003 8:00 AM SAMPLE GRINDER Pulse 64 09/05/2003 8:00 AM SAMPLE GRINDER Temperature - - Respiratory Rate - - Oxygen Saturation - - Inhaled Oxygen Concentration - - Weight 88.9 kg (196 lb) 09/05/2003 8:00 AM SAMPLE GRINDER Height 165.1 cm (5' 5) 09/05/2003 8:00 AM SAMPLE GRINDER Body Mass Index 32.62 09/05/2003 8:00 AM SAMPLE GRINDER documented in this encounter Progress Notes 09/05/2003 8:00 AM SAMPLE GRINDER Paty Watts is here today for pap and pe second bp is 100/58. Are you having pain today, that you want to discuss with the provider? -NO BP was taken on the RIGHT arm. Large cuff used- YES Method of control? -none PARA Patient does Self Breast exams? -YES. Mammogram done? -Yes, date 06/25 Where [facility]. PAP done? -Yes, date 06/25 Where [facility] Bone Density study done? -No testing done. CHOLESTEROL (mg/dl) Date Value 03/25/2003 139 HDL CHOLESTEROL (mg/dl) Date Value 03/25/2003 38 LDL, CALC. (mg/dl) Date Value 03/25/2003 88 TRIGLYCERIDE (mg/dl) Date Value 03/25/2003 65 Immunizations reviewed? -YES Do you ever feel physically threatened or emotionally afraid? -NO. Tobacco Status reviewed? (see History: Social-Substance) -YES tool storage attendant offered? -NOT APPLICABLE. Aspirin taken daily? - YES Health Education given? -NO. patient's phone number [phone] (home) [phone] (work) Arminda Khanna LPN 09/05/2003 7:59 AM Current outpatient prescriptions: PIRBUTEROL ACETATE 200 MCG/INH IN AERB,use as directed prn,Disp: 0,Rfl: 0 ASPIRIN 81MG ORAL CHEW TABS,4 TABLET DAILY,Disp: ,Rfl: 0 CALCIUM 600MG + VITAMIN D 200IU ORAL TABS,3 TABLET DAILY,Disp: ,Rfl: 0 FLINTSTONES PLUS IRON OR CHEW,2 per day,Disp: ,Rfl: 0 CYANOCOBALAMIN 1000 MCG SL SUBL,1 qd,Disp: ,Rfl: 0 Danielle Bender - 09/05/2003 12:00 AM CSTSUBJECTIVE: This is a 42-year-old white female who comes in today for a preventative health care visit. She has a past medical history of having had a gastric bypass surgery done in September of 2002. She has lost about 120 pounds right now and is working on trying to lose more weight. She also has had a history of depression in the past. She is no longer on medication. She had a history of DVT in the past on her right leg and she is factor V Leiden positive. She is no longer on Coumadin at this point. She did have high cholesterol and elevated blood sugars, but with the weight loss, those have all normalized. SOCIAL HISTORY: She is single. She has never smoked cigarettes. FAMILY HISTORY: Brother has hypothyroidism. Mother with colon cancer at 62 years of age. PREVENTATIVE SERVICES: Last Pap smear June of 2002, mammogram June of 2002, no colon cancer screening in the past as of yet, tetanus in 1996, and fasting cholesterol was done last March. REVIEW OF SYSTEMS: Negative except as stated below: She does have a rash and chronic problems with skin rashes because of her folds of skin and she has lost her weight. She is thinking about having plastic surgery done because of the problem with rashes that she has because of the skin folds. She is fasting today. We will get blood work done. She will get another mammogram scheduled. She is not having problems with her periods. They were very heavy for a while, but they are less so now and not bothering her as much. Her right ear has been feeling more clogged the last few weeks and she would like me to look at that, and she has a mole on the right side of her neck that has been bothering her too, but does appear benign. PHYSICAL EXAMINATION: On exam, her height is 5 feet 5 inches, weight is 196 pounds, pulse is 64, and blood pressure is 102/60, on recheck 100/58. A 42-year-old white female alert, pleasant, and in no acute distress. HEENT: Her head is atraumatic, normocephalic. Bilateral tympanic membranes are clear. Oropharynx is clear. Neck: There is no cervical lymphadenopathy and no thyromegaly. Heart is regular rate and rhythm. Her lungs are clear to auscultation bilaterally. Abdomen has good bowel sounds, soft, nontender, and not distended. No hepatosplenomegaly. Breasts: Bilaterally there are no masses, no skin lesions, and no nipple discharge. No axillary lymphadenopathy. Self-breast exam was discussed. Gynecological: Normal external genitalia. Cervix normal. Pap smear was taken. Uterus and ovarian adnexa were normal to palpation bilaterally. Extremities: There is no clubbing, cyanosis, or edema. Good pulses. Skin: She does have an erythematous rash under her skin fold of her abdomen both on the left and right side. Left side is worse than the right. Does appear to be a fungal-type infection. ASSESSMENT: Preventative health care visit. PLAN: Will be rescheduled for a mammogram. We will do fasting blood work on her today and follow up as needed. 12:51 P cc: LE GRINDER documented in this encounter Plan of Treatment Not on filedocumented as of this encounter Visit Diagnoses Diagnosis Routine general medical examination at [facility] facility Routine general medical examination at [facility] facility Screening for malignant neoplasm of the cervix documented in this encounter Care Teams Sybase Developer Relationship Specialty Start Date End Date Danielle Bender MD PCP - General 04/09/01 08/07/[address] [place] [address] documented as of this encounter
--- OUTSIDE RECORDS SUMMARY | 2022-01-29 17:54 | XMS_ITS | Encounter Summary ---
:1960 Author Organization [employer] Address [address] [place] [address] Care Team Providers Name Role Phone Danielle Bender MD Primary Care Provider Reason for Visit Reason Comments Other teaching self-injection Encounter Details Date Type Department Care Team Description 07/04/2004 Office Visit [facility] Department ANTICOAG USE (Primary Dx) [address] [place] [address] Social History Tobacco Use Types Packs/Day Years Used Date Smoking Tobacco: Never Alcohol Use Standard Drinks/Week Comments Yes 0 (1 standard drink = 0.6 oz pure alcoho l) mod Sex Assigned at Date Recorded Not on file documented as of this encounter Progress Notes 07/04/2004 2:30 PM APPLICATIONS INSTRUCTOR Pt. into clinic. Instructed in self-injection of lovenox. Given pt. instruction kit. Will start lovenox 30mg qd x 2 weeks starting on Sat. and then resume asa. Radha Soto RN documented in this encounter Plan of Treatment Not on filedocumented as of this encounter Visit Diagnoses Diagnosis penitentiary (current) use of anticoagulant s - Primary Long-term (current) use of anticoagulant s documented in this encounter Care Teams Unemployment Inspector Relationship Specialty Start Date End Date Danielle Bender MD PCP - General 04/09/01 08/07/10 [address] [place] [address] documented as of this encounter
--- OUTSIDE RECORDS SUMMARY | 2022-01-29 17:54 | XMS_ITS | Encounter Summary ---
:1960 Author Organization [employer] Address [address] [place] [address] Care Team Providers Name Role Phone Danielle Bender MD Primary Care Provider Encounter Details Date Type Department Care Team Description 03/24/2003 Correspondence [place] [facility] Danielle Bender MD LAB TEST F/U Medicine [address] [place] [address] [phone] Social History Tobacco Use Types Packs/Day Years Used Date Smoking Tobacco: Never Alcohol Use Standard Drinks/Week Comments Yes 0 (1 standard drink = 0.6 oz pure alcoho l) mod Sex Assigned at Date Recorded Not on file documented as of this encounter Progress Notes Danielle Bender - 03/24/2003 12:00 AM CDT documented in this encounter Plan of Treatment Not on filedocumented as of this encounter Visit Diagnoses Not on filedocumented in this encounter Care Teams Automatic Equipment Technician Relationship Specialty Start Date End Date Danielle Bender MD PCP - General 04/09/01 08/07/[address] [place] [address] documented as of this encounter
--- OUTSIDE RECORDS SUMMARY | 2022-01-29 17:54 | XMS_ITS | Encounter Summary ---
:1960 Author Organization [employer] Address [address] [place] [address] Care Team Providers Name Role Phone Danielle Bender MD Primary Care Provider Encounter Details Date Type Department Care Team Description 11/01/2002 Orders Only External to Danielle Bender MD [address] [place] [address] (Wo rk) Social History Tobacco Use Types Packs/Day Years Used Date Smoking Tobacco: Never Alcohol Use Standard Drinks/Week Comments Yes 0 (1 standard drink = 0.6 oz pure alcoho l) mod Sex Assigned at Date Recorded Not on file documented as of this encounter Plan of Treatment Not on filedocumented as of this encounter Procedures Procedure Name Priority Date/Time Associated Diagnosis Comme nts UNLISTED ULTRASOUND 11/01/2002 Results for this PROCEDURE procedure are i n the results section . documented in this encounter Results ECHO EXAMINATION PROCEDURE (11/01/2002) Anatomical Region Laterality Modality Other Narrative This result has an attachment that is no t available. Danielle Bender MD PROC_2 documented in this encounter Visit Diagnoses Not on filedocumented in this encounter Care Teams Pharmaceutical Development Technician Relationship Specialty Start Date End Date Danielle Bender MD PCP - General 04/09/01 08/07/[address] [place] [address] documented as of this encounter
--- OUTSIDE RECORDS SUMMARY | 2022-01-29 17:54 | XMS_ITS | Encounter Summary ---
:1960 Author Organization [employer] Address [address] [place] [address] Care Team Providers Name Role Phone Danielle Bender MD Primary Care Provider Encounter Details Date Type Department Care Team Description 07/05/2002 Orders Only [facility] Danielle Linares MD [address] [facility] [address] [place] [address] [place], [place] [phone] (Wo rk) Social History Tobacco Use Types Packs/Day Years Used Date Smoking Tobacco: Never Assessed Sex Assigned at Date Recorded Not on file documented as of this encounter Plan of Treatment Not on filedocumented as of this encounter Procedures Procedure Name Priority Date/Time Associated Comments Diagnosis HEMOGRAM Routine 07/05/2002 9:36 AM Results f or this GAUGE CONTROLLER procedure are i n the results section. LIPID PANEL, FAST > Routine 07/05/2002 9:36 AM Re sults for this 12 HOUR GAUGE CONTROLLER procedure are i n the results section. ESTRADIOL Routine 07/05/2002 9:36 AM Results f or this GAUGE CONTROLLER procedure are i n the results section. FSH Routine 07/05/2002 9:36 AM Results f or this GAUGE CONTROLLER procedure are i n the results section. TSH, SENSITIVE (WITH Routine 07/05/2002 9:36 AM R esults for this REFLEX) GAUGE CONTROLLER procedure are i n the results section. HGB A1C Routine 07/05/2002 9:36 AM Results f or this GAUGE CONTROLLER procedure are i n the results section. ALT (SGPT) Routine 07/05/2002 9:36 AM Results f or this GAUGE CONTROLLER procedure are i n the results section. AST Routine 07/05/2002 9:36 AM Results f or this GAUGE CONTROLLER procedure are i n the results section. SODIUM Routine 07/05/2002 9:36 AM Results f or this GAUGE CONTROLLER procedure are i n the results section. POTASSIUM Routine 07/05/2002 9:36 AM Results f or this GAUGE CONTROLLER procedure are i n the results section. GLUCOSE - FASTING > Routine 07/05/2002 9:36 AM Re sults for this 8 HRS FASTING GAUGE CONTROLLER procedure are in the results section. CREATININE Routine 07/05/2002 9:36 AM Results f or this GAUGE CONTROLLER procedure are i n the results section. BUN Routine 07/05/2002 9:36 AM Results f or this GAUGE CONTROLLER procedure are i n the results section. documented in this encounter Results (ABNORMAL) HGB A1C (07/05/2002 9:36 AM GAUGE CONTROLLER) athologist Signature Hgb A1c 6.4 (H) 4.3 - 6.1 % [facility] Specimen Anatomical Collection Method Collection Time Receive d Time (Source) Location / / Volume Laterality 07/05/2002 9:36 AM 3 9:37 GAUGE CONTROLLER AM GAUGE CONTROLLER Danielle Bender MD LAB_1 Performing Organization Address [facility] Phon e Number [email or web address] [phone] [facility] [address] [phone] SODIUM (07/05/2002 9:36 AM GAUGE CONTROLLER) P athologist Signature Sodium 140 135 - 145 [facility] mmol/L Specimen Anatomical Collection Method Collection Time Receive d Time (Source) Location / / Volume Laterality 07/05/2002 9:36 AM 3 9:37 GAUGE CONTROLLER AM GAUGE CONTROLLER Danielle Bender MD LAB_1 Performing Organization Address [facility] Phon e Number [email or web address] [phone] [facility] [address] [phone] POTASSIUM (07/05/2002 9:36 AM GAUGE CONTROLLER) athologist Signature Potassium 4.1 3.5 - 5.3 [facility] mmol/L Specimen Anatomical Collection Method Collection Time Receive d Time (Source) Location / / Volume Laterality 07/05/2002 9:36 AM 3 9:37 GAUGE CONTROLLER AM GAUGE CONTROLLER Danielle Bender MD LAB_1 Performing Organization Address [facility] Phon e Number [email or web address] [phone] [facility] [address] [place] [phone] (ABNORMAL) GLUCOSE - FASTING > 8 HRS FASTING (07/05/2002 9:36 AM GAUGE CONTROLLER) Analysis Performed At Path logist Time Signature Glucose 128 (H) 70 - 110 [facility] mg/dl Hours Fasting 12 hours [facility] Specimen Anatomical Collection Method Collection Time Receive d Time (Source) Location / / Volume Laterality 07/05/2002 9:36 AM 3 9:37 GAUGE CONTROLLER AM GAUGE CONTROLLER Danielle Bender MD LAB_1 Performing Organization Address [facility] Phon e Number [facility] [phone] [phone] CREATININE (07/05/2002 9:36 AM GAUGE CONTROLLER) athologist Signature Creatinine 0.9 0.5 - 1.2 [facility] mg/dl Specimen Anatomical Collection Method Collection Time Receive d Time (Source) Location / / Volume Laterality 07/05/2002 9:36 AM 3 9:37 GAUGE CONTROLLER AM GAUGE CONTROLLER Danielle Bender MD LAB_1 Performing Organization Address [facility] Phon e Number [email or web address] [phone] [phone] CHOLESTEROL LIPID PANEL FAST >12HR FAST (07/05/2002 9:36 AM GAUGE CONTROLLER) athologist Signature Cholesterol 193 <200 mg/dl [facility] Triglyceride 126 <200 mg/dl [facility] HDL 40 >35 mg/dl [facility] LDL, Calc. 128 mg/dl [facility] Hours Fasting 12 hours [facility] Specimen Anatomical Collection Method Collection Time Receive d Time (Source) Location / / Volume Laterality 07/05/2002 9:36 AM 3 9:37 GAUGE CONTROLLER AM GAUGE CONTROLLER Danielle Bender MD LAB_1 Performing Organization Address [facility] Phon e Number [email or web address] [phone] [facility] [address] [place] [phone] (ABNORMAL) BUN (07/05/2002 9:36 AM GAUGE CONTROLLER) P athologist Signature BUN 9 (L) 10 - 26 [facility] mg/dl Specimen Anatomical Collection Method Collection Time Receive d Time (Source) Location / / Volume Laterality 07/05/2002 9:36 AM 3 9:37 GAUGE CONTROLLER AM GAUGE CONTROLLER Danielle Bender MD LAB_1 Performing Organization Address [facility] Phon e Number [facility] [phone] [phone] AST (SGOT) (07/05/2002 9:36 AM GAUGE CONTROLLER) P athologist Signature AST (SGOT) 31 <45 U/L [facility] Specimen Anatomical Collection Method Collection Time Receive d Time (Source) Location / / Volume Laterality 07/05/2002 9:36 AM 3 9:37 GAUGE CONTROLLER AM GAUGE CONTROLLER Danielle Bender MD LAB_1 Performing Organization Address [facility] Phon e Number [facility] [email or web address] [phone] [phone] ALT (SGPT) (07/05/2002 9:36 AM GAUGE CONTROLLER) P athologist Signature ALT (SGPT) 34 0 - 55 U/L [facility] Specimen Anatomical Collection Method Collection Time Receive d Time (Source) Location / / Volume Laterality 07/05/2002 9:36 AM 3 9:37 GAUGE CONTROLLER AM GAUGE CONTROLLER Danielle Bender MD LAB_1 Performing Organization Address [facility] Code Phon e Number [email or web address] [phone] [facility] [address] [place] [phone] TSH, SENSITIVE (07/05/2002 9:36 AM GAUGE CONTROLLER) P athologist Signature TSH 4.24 0.30 - 5.00 [facility] uIU/ml Thyroid Meds No [facility] Specimen Anatomical Collection Method Collection Time Receive d Time (Source) Location / / Volume Laterality 07/05/2002 9:36 AM 3 9:37 GAUGE CONTROLLER AM GAUGE CONTROLLER Danielle Bender MD LAB_1 Performing Organization Address [facility] Phon e Number [facility] [phone] [facility] [phone] FSH (07/05/2002 9:36 AM GAUGE CONTROLLER) [facility] gist Method Time Signature FSH 4.4 mIU/ml [facility] FSH Expected Values- [facility] Prepubertal: ??<5.0 Follicular: ??2.5-10.2 Midcycle: ??3.4-33.4 Luteal: ??1.5-9.1 Postmenopausal: ??23.0-116.3 Specimen Anatomical Collection Method Collection Time Receive d Time (Source) Location / / Volume Laterality 07/05/2002 9:36 AM 3 9:37 GAUGE CONTROLLER AM GAUGE CONTROLLER Danielle Bender MD LAB_1 Performing Organization Address [facility] Phon e Number [email or web address] [phone] [facility] [address] [place] [phone] ESTRADIOL (07/05/2002 9:36 AM GAUGE CONTROLLER) [facility] gist Method Time Signature Estradiol 85 pg/ml [facility] Estradiol Expected Values- [facility] Follicular: ??19-83 Midcycle: ??15-528 Luteal: ??58-157 Postmenopausal: ??<32 Prepubertal: ??<15 Specimen Anatomical Collection Method Collection Time Receive d Time (Source) Location / / Volume Laterality 07/05/2002 9:36 AM 3 9:37 GAUGE CONTROLLER AM GAUGE CONTROLLER Danielle Bender MD LAB_1 Performing Organization Address [facility] Phon e Number [email or web address] [phone] [facility] [address] [place] [phone] (ABNORMAL) HEMOGRAM (07/05/2002 9:36 AM GAUGE CONTROLLER) athologist Signature WBC 7.3 3.6 - 11.0 [facility] k/ul RBC 4.54 4.0 - 5.2 [facility] M/ul Hemoglobin 13.9 12.0 - [facility] 16.0 g/dl HCT 40.3 36.0 - [facility] 46.0 % MCV 88.6 80 - 100 [facility] fl MCH 30.6 26 - 34 pg [facility] MCHC 34.6 32 - 36 % [facility] RDW 14.9 (H) 11.5 - [facility] 14.5 % Specimen Anatomical Collection Method Collection Time Receive d Time (Source) Location / / Volume Laterality 07/05/2002 9:36 AM 3 9:37 GAUGE CONTROLLER AM GAUGE CONTROLLER Danielle Bender MD LAB_1 Performing Organization Address [facility] Phon e Number [email or web address] [phone] [phone] documented in this encounter Visit Diagnoses Not on filedocumented in this encounter Care Teams Clipper Counters Relationship Specialty Start Date End Date Danielle Bender MD PCP - General 04/09/01 08/07/[address] [place] [address] documented as of this encounter
--- OUTSIDE RECORDS SUMMARY | 2022-01-29 17:54 | XMS_ITS | Encounter Summary ---
:1960 Author Organization [facility] Address [address] [place] [address] Care Team Providers Name Role Phone Danielle Bender MD Primary Care Provider Encounter Details Date Type Department Care Team Description 11/08/2003 Orders Only [facility], [address] [place], [place] [address] Social History Tobacco Use Types Packs/Day Years Used Date Smoking Tobacco: Never Alcohol Use Standard Drinks/Week Comments Yes 0 (1 standard drink = 0.6 oz pure alcoho l) mod Sex Assigned at Date Recorded Not on file documented as of this encounter Plan of Treatment Not on filedocumented as of this encounter Procedures Procedure Name Priority Date/Time Associated Diagnosis Comme nts STREP GRP A, RAPID Waiting 11/08/2003 9:42 AM Res ults for this SCREEN CDT procedure are i n the results section. documented in this encounter Results RAPID, GPA STREP SCREEN (WAITI (11/08/2003 9:42 AM CDT) [facility] Method Time Signature Patient Home [phone] [facility] Phone # Patient Work None [facility] Phone # Grp A Rapid Negative NEG [facility] Screen Grp A Culture Negative NEG [facility] Final Specimen Anatomical Collection Method Collection Time Receive d Time (Source) Location / / Volume Laterality 11/08/2003 9:42 AM 4 9:43 CDT AM CDT Kelly Mcneal APRN, FRONT COUNTER ATTENDANT LAB_1 Performing Organization Address City/State/ZIP Code Phon e Number [facility] [phone] [facility] [address] [phone] documented in this encounter Visit Diagnoses Not on filedocumented in this encounter Care Teams Medical Management Specialist Relationship Specialty Start Date End Date Danielle Bender MD PCP - General 04/09/01 08/07/[address] [place] [address] documented as of this encounter
--- OUTSIDE RECORDS SUMMARY | 2022-01-29 17:54 | XMS_ITS | Encounter Summary ---
:1960 Author Organization [employer] Address [address] [place] [address] Care Team Providers Name Role Phone Danielle Bender MD Primary Care Provider Encounter Details Date Type Department Care Team Description 06/12/2002 Correspondence [place] [facility] Rajeev Cho, RX REF [facility] Medicine MD [address] [place] [id number] Social History Tobacco Use Types Packs/Day Years Used Date Smoking Tobacco: Never Assessed Sex Assigned at Date Recorded Not on file documented as of this encounter Progress Notes Jailene Cho - 06/12/2002 12:00 AM MOBILE DEVICE DEVELOPER LE DEVICE DEVELOPER documented in this encounter Plan of Treatment Not on filedocumented as of this encounter Visit Diagnoses Not on filedocumented in this encounter Care Teams Middle School Counselor Relationship Specialty Start Date End Date Danielle Bender MD PCP - General 04/09/01 08/07/10 [address] [facility] [address] [place] [address] documented as of this encounter
--- OUTSIDE RECORDS SUMMARY | 2022-01-29 17:54 | XMS_ITS | Encounter Summary ---
:1960 Author Organization [employer] Address [address] [place] [address] Care Team Providers Name Role Phone Danielle Bender MD Primary Care Provider Encounter Details Date Type Department Care Team Description 03/24/2003 Office Visit [place] Danielle Bender FOLLO W-UP EXAM NEC; Internal Medicine PREVENTIVE CARE EXAM 1430 [facility] 96 1430 [facility] [address] [place] [address] [phone] (Wo rk) Social History Tobacco Use Types Packs/Day Years Used Date Smoking Tobacco: Never Alcohol Use Standard Drinks/Week Comments Yes 0 (1 standard drink = 0.6 oz pure alcoho l) mod Sex Assigned at Date Recorded Not on file documented as of this encounter Last Filed Vital Signs Vital Sign Reading Time Taken Comments Blood Pressure 114/70 03/24/2003 1:00 PM CDT Pulse - - Temperature - - Respiratory Rate - - Oxygen Saturation - - Inhaled Oxygen Concentration - - Weight 104.3 kg (230 lb) 03/24/2003 1:00 PM CDT Height - - Body Mass Index 38.27 07/01/2002 3:00 PM SUPERVISOR DRAWING documented in this encounter Progress Notes 03/24/2003 1:00 PM CDT Paty is here as follow up from gastric bypass surgery on 10/01/02 Current prescriptions: ASPIRIN 81MG ORAL CHEW TABS, 4 TABLET DAILY, D: , R: 0 CALCIUM + D 600-200 MG-IU OR TABS, 3 TABLET DAILY, D: , R: 0 FLINTSTONES PLUS IRON OR CHEW, 2 per day, D: , R: 0 SERTRALINE HCL (ZOLOFT) 50MG ORAL TABS, 1 TABLET DAILY, D: 30, R: 0 MAXAIR AUTOHALER 200 MCG/INH IN AERB, use prn, D: 1, R: 11 PARVEZ Garcia Caroline M - 03/24/2003 12:00 AM Steve is a 42 year-old white female who underwent gastric bypass surgery for obesity that was done in September of 2002. Per her scale she has lost 103 pounds and she said she is doing very well. She would like some blood work done for her surgeon. We are going to have her come back and do fasting cholesterol, hemoglobin, iron levels, INR, thyroid stimulating hormone, B12, folic acid levels. She is feeling well and continuing to work on weight loss. She also wanted to discuss her hair loss that she has had for some time. She tried Rogaine but had some irritation from that a few years ago and is considering trying that again in the future. I also offered her Dermatology consult to discuss any other possibilities. 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 She has had a lot of bruising with her four aspirin daily so we talked about cutting it down to three aspirin a day. Also she is saying that she would like to look forward to having plastic surgery done in the future to help with the skin folds. She does have a lot of problem with rashes under her breasts and under her stomach folds and would like to talk about whether or not some of this would be covered under insurance. I gave her the phone numbers to Plastic Surgery so that she could talk with them and discuss it further with them. ASSESSMENT: Follow-up after gastric bypass surgery. PLAN: We will be getting labs done when she comes back in fasting and will let her know the results of those at that time. 25 minutes was spent with the patient, 20 of which was in counseling and coordination of care. P cc: documented in this encounter Plan of Treatment Not on filedocumented as of this encounter Visit Diagnoses Diagnosis Other follow-up examination(V67.59) Other follow-up examination Routine general medical examination at [facility] Routine general medical examination at [facility] documented in this encounter Care Teams Futures Trader Relationship Specialty Start Date End Date Danielle Bender MD PCP - General 04/09/01 08/07/10 1430 [facility] [address] [place] [address] documented as of this encounter
--- OUTSIDE RECORDS SUMMARY | 2022-01-29 17:54 | XMS_ITS | Encounter Summary ---
:1960 Author Organization [employer] Address [address] [place] [address] Care Team Providers Name Role Phone Danielle Bender MD Primary Care Provider Reason for Visit Reason Comments IMMUNIZATIONS Encounter Details Date Type Department Care Team Description 05/15/2004 Office Visit [place] [facility] VACC INE FOR INFLUENZA Department [address] [address] Social History Tobacco Use Types Packs/Day Years Used Date Smoking Tobacco: Never Alcohol Use Standard Drinks/Week Comments Yes 0 (1 standard drink = 0.6 oz pure alcoho l) mod Sex Assigned at Date Recorded Not on file documented as of this encounter Progress Notes 05/15/2004 3:45 PM GYMNASIUM TEACHER SUBJECTIVE: Severe allergy to eggs: no Previous severe reaction to thimerosal : no History of paralysis with Guillian Fletcher: no Ill appearing with increased respiratory rate, moderate fever (>101.0 F), and increased heart rate: no History of bleeding problem: no Severe allergy to latex *: no (If YES to any of the above, consult MD) * The contraindication does not apply to children receiving [employer] Fluzone Preservative Free Pediatric dose OBJECTIVE: Temp (only if ill today): ASSESSMENT: Eligible for flu vaccine today: YES PLAN: Administer vaccine: Education: discussed possible side effects and provided health education materials. Sally Sylvester LPN 05/15/2004 4:21 PM documented in this encounter Plan of Treatment Not on filedocumented as of this encounter Visit Diagnoses Diagnosis Need for prophylactic vaccination and in oculation against influenza documented in this encounter Care Teams Refrigeration Mechanic Relationship Specialty Start Date End Date Danielle Bender MD PCP - General 04/09/01 08/07/10 1430 [facility] [address] [place] [address] documented as of this encounter
--- OUTSIDE RECORDS SUMMARY | 2022-01-29 17:54 | XMS_ITS | Encounter Summary ---
:1960 Author Organization [employer] Address [address] [place] [address] Care Team Providers Name Role Phone Danielle Bender MD Primary Care Provider Encounter Details Date Type Department Care Team Description 07/09/2002 Office Visit [place] [facility] Danielle Bender MD Medicine 1430 [facility] [address] [address] [phone] (Wo rk) Social History Tobacco Use Types Packs/Day Years Used Date Smoking Tobacco: Never Assessed Sex Assigned at Date Recorded Not on file documented as of this encounter Progress Notes Danielle Bender - 07/09/2002 12:00 AM PUMP HOUSE OPERATOR HOUSE OPERATOR documented in this encounter Plan of Treatment Not on filedocumented as of this encounter Visit Diagnoses Not on filedocumented in this encounter Care Teams Portfolio Director Relationship Specialty Start Date End Date Danielle Bender MD PCP - General 04/09/01 08/07/10 1430 [facility] [address] [place] [address] documented as of this encounter
--- OUTSIDE RECORDS SUMMARY | 2022-01-29 17:54 | XMS_ITS | Encounter Summary ---
:1960 Author Organization [employer] Address [address] [place] [address] Care Team Providers Name Role Phone Danielle Bender MD Primary Care Provider Encounter Details Date Type Department Care Team Description 10/20/2003 Office Visit [place] Danielle Bender, SKIN DISORDER NOS Internal Medicine [address] [place] [address] [place] [address] [phone] (Wo rk) Social History Tobacco Use Types Packs/Day Years Used Date Smoking Tobacco: Never Alcohol Use Standard Drinks/Week Comments Yes 0 (1 standard drink = 0.6 oz pure alcoho l) mod Sex Assigned at Date Recorded Not on file documented as of this encounter Last Filed Vital Signs Vital Sign Reading Time Taken Comments Blood Pressure 98/56 10/20/2003 4:00 PM CDT Pulse - - Temperature - - Respiratory Rate - - Oxygen Saturation - - Inhaled Oxygen Concentration - - Weight - - Height - - Body Mass Index - - documented in this encounter Progress Notes 10/20/2003 4:00 PM CDT Paty is here for mole removal second bp is 102/60 Current outpatient prescriptions: CYANOCOBALAMIN 1000 MCG SL SUBL,1 every other day,Disp: 0,Rfl: 99 PIRBUTEROL ACETATE 200 MCG/INH IN AERB,use as directed prn,Disp: 0,Rfl: 0 ASPIRIN 81MG ORAL CHEW TABS,4 TABLET DAILY,Disp: ,Rfl: 0 CALCIUM 600MG + VITAMIN D 200IU ORAL TABS,3 TABLET DAILY,Disp: ,Rfl: 0 FLINTSTONES PLUS IRON OR CHEW,2 per day,Disp: ,Rfl: 0 PARVEZ Garcia Caroline M - 10/20/2003 12:00 AM CDTSUBJECTIVE: Xmgie-rrbe-wxyt-old white female who comes in today for mole removal. She has a lesion on the right side of her neck and on her low back that she'd like frozen with liquid nitrogen. I had seen them at her physical and they are benign-appearing. OBJECTIVE: Vitals as per in EPIC. Qishz-xuwj-xzbu-old white female, alert, pleasant, in no acute distress. The right side of her neck there is a benign-appearing mole that is there, this was frozen x 3 with liquid nitrogen. She tolerated the procedure well. No complication. On the small of her low back there is a benign-appearing fleshy mole that is there; again, it was frozen x 3 with liquid nitrogen; no complications. ASSESSMENT: Skin lesions. PLAN: Frozen with liquid nitrogen as stated above. P cc: documented in this encounter Plan of Treatment Not on filedocumented as of this encounter Visit Diagnoses Diagnosis Unspecified disorder of skin and subcuta neous tissue documented in this encounter Care Teams Shoe Designer Relationship Specialty Start Date End Date Danielle Bender MD PCP - General 04/09/01 08/07/[address] [place] [address] documented as of this encounter
--- OUTSIDE RECORDS SUMMARY | 2022-01-29 17:54 | XMS_ITS | Encounter Summary ---
:1960 Author Organization [employer] Address [address] [place] [address] Care Team Providers Name Role Phone Danielle Bender MD Primary Care Provider Encounter Details Date Type Department Care Team Description 09/05/2003 Orders Only [place] [facility] Danielle Linares MD [facility] 96 1430 [facility] [address] [place] [address] [place], [place] [phone] (Wo rk) Social History Tobacco Use Types [...] Diagnosis Comme nts PAP TEST, ROUTINE Routine 09/05/2003 12:00 AM Res ults for this SHOWER SCREEN INSTALLER procedure are i n the results section. documented in this encounter Results PAP TEST, ROUTINE (09/05/2003 12:00 AM SHOWER SCREEN INSTALLER) Component Value Ref Test Analysis Performed At [facility] Range Method Time Signature Cytology, Pap (NOTE) [facility] Director Cytology Report Patient Name: PATY YEAGER Taken: 09/05/03 Received: 09/06/03 Reported: 09/07/03 Physician(s): DANIELLE BENDER ([id number]) ?Source of Specimen Liquid routine Pap, cervical/endocervical: ?Specimen Adequacy ?Satisfactory for evaluation. ??Endocervical component present. ? Final Cytologic Interpretation/Result NEGATIVE FOR INTRAEPITHELIAL LESION OR MALIGNANCY (NILM) ? sv/09/07/03 Electronically Signed Out By EPHRAIM Dominguez (ASCP) EPHRAIM Dominguez (ASCP) ?Pap Smear History ?Date of Last Menstrual Period: ? 08/22/03 ?Other Clinical Conditions: ?LAST PAP: NORMAL HPV reflex testing requested with interpretation of ASCUS ? Specimen (Source) Anatomical Collection Method Collection Time Re ceived Time Location / / Volume Laterality 09/05/2003 09/06/2003 11:4 6 AM SHOWER SCREEN INSTALLER Danielle Bender MD LAB_1 Performing Organization Address City/State/ZIP [facility] [place] Number [address] [address] [place], [place] [phone] documented in this encounter Visit Diagnoses Not on filedocumented in this encounter Care Teams Guard Range Relationship Specialty Start Date End Date Danielle Bender MD PCP - General 04/09/01 08/07/[address] [place] [address] documented as of this encounter
--- OUTSIDE RECORDS SUMMARY | 2022-01-29 17:54 | XMS_ITS | Encounter Summary ---
:1960 Author Organization [facility] Address [address] [place] [address] Care Team Providers Name Role Phone Danielle Bender MD Primary Care Provider Encounter Details Date Type Department Care Team Description 09/15/2003 Office Visit [facility] Mammogram, SCREEN ING MAMM-MAILG [place] Mammography II NEOPL-OTHER (Primary [address] [place], [place] [address] Social History Tobacco Use Types Packs/Day Years Used Date Smoking Tobacco: Never Alcohol Use Standard Drinks/Week Comments Yes 0 (1 standard drink = 0.6 oz pure alcoho l) mod Sex Assigned at Date Recorded Not on file documented as of this encounter Procedure Notes Edda Hernandez - 09/15/2003 12:00 AM CSTAssociated Order(s): MAMMOGRAM, SCREENING EXAMINATION: BILATERAL MAMMOGRAM 09/15/03 ACR BIRADS CATEGORY 1 - NEGATIVE MAMMOGRAM. Comparison: 06/26/01 FINDINGS: The breast tissue is fat replaced. There has been no change. Edda Hernandez MD 10:40 A cc: Radiology Danielle Bender MD ENTICE EMBALMER documented in this encounter Plan of Treatment Not on filedocumented as of this encounter Procedures Procedure Name Priority Date/Time Associated Diagnosis Comme nts MAMMOGRAM, SCREENING Routine 09/15/2003 Screening Mamm-Mailg Results for this Neopl-Other procedure are i n the results section . documented in this encounter Results MAMMOGRAM, SCREENING (09/15/2003) Anatomical Region Laterality Modality Breast Other Transcriptions Edda Hernandez R - 09/15/2003 12:00 AM CS TEXAMINATION: BILATERAL MAMMOGRAM 09/15/03 ACR BIRADS CATEGORY 1 - NEGATIVE MAMMOGR AM. Comparison: 06/26/01 FINDINGS: The breast tissue is fat repla zainab. There has been no change. Edda Hernandez MD 10:40 A cc: Radiology Danielle Bender MD Danielle Bender MD RAD_BI documented in this encounter Visit Diagnoses Diagnosis Other screening mammogram - Primary documented in this encounter Care Teams Community Product Specialist Relationship Specialty Start Date End Date Danielle Bender MD PCP - General 04/09/01 08/07/[address] [place] [address] documented as of this encounter
--- OUTSIDE RECORDS SUMMARY | 2022-01-29 17:54 | XMS_ITS | Encounter Summary ---
:1960 Author Organization [facility] Address [address] [place] [address] Care Team Providers Name Role Phone Danielle Bender MD Primary Care Provider Encounter Details Date Type Department Care Team Description 09/27/2002 Orders Only [place] Labo Danielle Linares MD [facility]0 [facility] 96 1430 [facility] [address] [place] [address] [place], [place] [phone] (Wo rk) Social History Tobacco Use Types [...] Date/Time Associated Diagnosis Comme nts COMPLETE BLOOD Same Day 09/27/2002 4:05 PM Results for this COUNT-W/DIFF CDT procedure are i n the results section. INR/PROTIME Same Day 09/27/2002 4:05 PM Results f or this CDT procedure are i n the results section. documented in this encounter Results PROTIME (09/27/2002 4:05 PM CDT) P athologist Signature Protime 14.4 12.7 - 16.3 [facility] sec Coumadin No [facility] INR 1.0 [facility] Specimen Anatomical Collection Method Collection Time Receive d Time (Source) Location / / Volume Laterality 09/27/2002 4:05 PM 3 4:06 CDT PM CDT Danielle Bender MD LAB_1 Performing Organization Address City/State/ZIP Code Phon e Number [facility] [phone] [facility] [address] [phone] (ABNORMAL) HEMOGRAM/PLTS/DIFF (09/27/2002 4:05 PM CDT) [facility] Method Time Signature WBC 10.0 3.6 - [facility] 11.0 k/ul WBC Pre-Op [facility] [id number] RBC 4.42 4.0 - 5.2 [facility] M/ul Hemoglobin 13.3 12.0 - [facility] 16.0 g/dl HCT 39.3 36.0 - [facility] 46.0 % MCV 88.9 80 - 100 [facility] fl MCH 30.0 26 - 34 [facility] pg MCHC 33.8 32 - 36 % [facility] RDW 14.8 (H) 11.5 - [facility] 14.5 % Platelets 295 150 - 450 [facility] k/ul PMN/Band 57 43 - 72 % [facility] Lymph 33 17 - 43 % [facility] Leslie 7 4 - 12 % [facility] Eos 2 0 - 8 % [facility] Baso 1 0 - 1 % [facility] Neutrophil 5.7 1.8 - 7.7 [facility] Absolute k/ul Lymph Absolute 3.3 1.0 - 4.8 [facility] k/ul Leslie Absolute 0.7 0.1 - 0.7 [facility] k/ul Eos Absolute 0.2 0.0 - 0.5 [facility] k/ul Baso Absolute 0.1 0.0 - 0.2 [facility] k/ul Specimen Anatomical Collection Method Collection Time Receive d Time (Source) Location / / Volume Laterality 09/27/2002 4:05 PM 3 4:06 CDT PM CDT Danielle Bender MD LAB_1 Performing Organization Address City/[facility]/ZIP Code Phon e Number [facility] [phone] [facility] [address] [phone] documented in this encounter Visit Diagnoses Not on filedocumented in this encounter Care Teams Embossing Press Operator Relationship Specialty Start Date End Date Danielle Bender MD PCP - General 04/09/01 08/07/[address] [place] [address] documented as of this encounter
--- OUTSIDE RECORDS SUMMARY | 2022-01-29 17:54 | XMS_ITS | Encounter Summary ---
:1960 Author Organization [facility] Address [address] [place] [address] Care Team Providers Name Role Phone Danielle Bender MD Primary Care Provider Encounter Details Date Type Department Care Team Description 07/22/[address] [facility] Mammogram I, Sp S CREENING MAMM- MAILG NEOPL-OTHER; Mammography [facility] [address] [place] [address] Social History Tobacco Use Types Packs/Day Years Used Date Smoking Tobacco: Never Assessed Sex Assigned at Date Recorded Not on file documented as of this encounter Procedure Notes Reid Navarro - 07/22/2002 12:00 AM CSTAssociated Order(s): MAMMOGRAM, SCREENING CLINICAL DATA: Bilateral screen. EXAMINATION: IN SUMMARY: BILATERAL MAMMOGRAM - 07/22/02. ACR BIRADS CATEGORY 1 - NEGATIVE MAMMOGRAM. There is no evidence for malignancy and the breasts are unchanged from March. Reid Nascimento MD cc: Radiology SP Danielle Bender MD documented in this encounter Plan of Treatment Not on filedocumented as of this encounter Procedures Procedure Name Priority Date/Time Associated Diagnosis Comme nts MAMMOGRAM, SCREENING Routine 07/22/2002 Screening Mamm-Mailg Results for this Neopl-Other procedure are in the Pers Hx Health Hazards resul ts section. Nec documented in this encounter Results MAMMOGRAM, SCREENING (07/22/2002) Anatomical Region Laterality Modality Breast Other Specimen (Source) Anatomical Location Collection Method / Collectio n Time Received Time / Laterality Volume Transcriptions Reid Navarro - 07/22/2002 12:00 AM C STCLINICAL DATA: Bilateral screen. EXAMINATION: IN SUMMARY: BILATERAL MAMMO GRAM - 07/22/02. ACR BIRADS CATEGORY 1 - NEGATIVE MAMMOGR AM. There is no evidence for malignancy and the breasts are unchanged from March. Reid Nascimento MD cc: Radiology SP Danielle Bender MD Danielle Bender MD RAD_BI documented in this encounter Visit Diagnoses Diagnosis Other screening mammogram Other specified personal history present ing hazards to health(V15.89) Other specified personal history present ing hazards to health documented in this encounter Care Teams Investment Director Relationship Specialty Start Date End Date Danielle Bender MD PCP - General 04/09/01 08/07/[address] [place] [address] documented as of this encounter
--- OUTSIDE RECORDS SUMMARY | 2022-01-29 17:55 | XMS_ITS | Encounter Summary ---
:1960 Author Organization [employer] Address [address] [place] [address] Care Team Providers Name Role Phone Danielle Bender MD Primary Care Provider Encounter Details Date Type Department Care Team Description 11/06/2001 Office Visit Radha Soto RN Social History Tobacco Use Types Packs/Day Years Used Date Smoking Tobacco: Never Assessed Sex Assigned at Date Recorded Not on file documented as of this encounter Progress Notes Radha Soto - 11/06/2001 12:00 AM CDTShe is a patient of Dr. Deloris Chirinos taking Coumadin for DVT; her range is 2.0 to 3.0. Today 11/06/01 her INR was 1.8, which continues to be too low. Today we will increase her weekly dosage to 5 mg 5x a week, 7.5 mg 2x a week and check that in 2 weeks. IN SUMMARY: INR cc: documented in this encounter Plan of Treatment Not on filedocumented as of this encounter Visit Diagnoses Not on filedocumented in this encounter Care Teams Pulp Grinder And Blender Relationship Specialty Start Date End Date Danielle Bender MD PCP - General 04/09/01 08/07/[address] [place] [address] documented as of this encounter
--- OUTSIDE RECORDS SUMMARY | 2022-01-29 17:55 | XMS_ITS | Encounter Summary ---
:1960 Author Organization [facility] Address [address] [place] [address] Care Team Providers Name Role Phone Olamide Rodney MD Primary Care Provider Encounter Details Date Type Department Care Team Description 06/25/2001 Orders Only Deloris Newman MD [address] [place], [place] [phone] [place], [place] [phone] (Wo rk) Social History Tobacco Use Types Packs/Day Years Used Date Smoking Tobacco: Never Assessed Sex Assigned at Date Recorded Not on file documented as of this encounter Plan of Treatment Not on filedocumented as of this encounter Procedures Procedure Name Priority Date/Time Associated Diagnosis Comme nts INR/PROTIME Routine 06/25/2001 9:13 AM Results f or this INTERNAL AUDIT MANAGER procedure are i n the results section . documented in this encounter Results (ABNORMAL) PROTIME (06/25/2001 9:13 AM INTERNAL AUDIT MANAGER) P athologist Signature Protime 20.9 (H) 10.2 - 13.8 [facility] sec Coumadin Yes [facility] INR 1.8 [facility] Specimen Anatomical Collection Method Collection Time Receive d Time (Source) Location / / Volume Laterality 06/25/2001 9:13 AM 200 2 9:14 INTERNAL AUDIT MANAGER AM INTERNAL AUDIT MANAGER Deloris Chirinos MD LAB_1 Performing Organization Address City/State/ZIP Code Phon e Number [facility] [phone] [address] documented in this encounter Visit Diagnoses Not on filedocumented in this encounter Care Teams Cutting Inspector Relationship Specialty Start Date End Date Olamide Rodney MD PCP - General 09/25/10 01/11/21 [address] [place], [place] [address] documented as of this encounter
--- OUTSIDE RECORDS SUMMARY | 2022-01-29 17:55 | XMS_ITS | Encounter Summary ---
:1960 Author Organization [employer] Address [address] [place] [address] Care Team Providers Name Role Phone Danielle Bender MD Primary Care Provider Encounter Details Date Type Department Care Team Description 08/19/2001 Office Visit [facility] LUDMILA BETES UNCOMPL ADULT-TYPE II; Program COUNSELING, DIETARY [address] [place] [address] Social History Tobacco Use Types Packs/Day Years Used Date Smoking Tobacco: Never Assessed Sex Assigned at Date Recorded Not on file documented as of this encounter Plan of Treatment Not on filedocumented as of this encounter Visit Diagnoses Diagnosis Type II or unspecified type diabetes rod litus without mention of complication, not stated as uncontrolled Dietary surveillance and counseling documented in this encounter Care Teams Sports Development Officer Relationship Specialty Start Date End Date Danielle Bender MD PCP - General 04/09/01 08/07/[address] [place] [address] documented as of this encounter
--- OUTSIDE RECORDS SUMMARY | 2022-01-29 17:55 | XMS_ITS | Encounter Summary ---
:1960 Author Organization [employer] Address [address] [place] [address] Care Team Providers Name Role Phone Danielle Bender MD Primary Care Provider Encounter Details Date Type Department Care Team Description 09/14/2001 Office Visit [facility] TAVO Vidal LEG NOS Internal Medicine MD Tio 14[address] [facility] [address] [place] [address] [phone] Social History Tobacco Use Types Packs/Day Years Used Date Smoking Tobacco: Never Assessed Sex Assigned at Date Recorded Not on file documented as of this encounter Progress Notes Tio Vidal - 09/14/2001 12:00 AM CSTSUBJECTIVE: The patient presents for evaluation of left calf pain. She has a history of deep venous thrombosis from May and has been relatively symptom free for the last two months. She does not have anywhere near the pain that she initially had on diagnosis back in May. Recent prothrombin time though did drop below two and she is due for a recheck this week. Second issue that came up. There is a strong family history of colon cancer, both her maternal aunt and her mother. I did recommend that she go ahead and have a screening colonoscopy done. OBJECTIVE: On exam today there is some mild tenderness to palpation of the left calf but there is no swelling and no palpable cord. Right calf was nontender. I indicated that my number one concern at the moment is that she have an adequate INR. She is going to have it checked today and we should probably aim for more of a 2.5-3 range. Of interest: Is that she does have a positive factor 5 Liden test and currently the plans were to have her continue on coumadin until summer. ASSESSMENT: Left calf pain. PLAN: At the present time I recommended making sure we get the INR back up. If she has persisting pain or any increased symptoms she will call us and we will proceed with a Doppler Study. 25 minutes was spent with the patient primarily in care coordination and counseling. IN SUMMARY: LEFT CALF PAIN. cc: WORDPRESS DEVELOPER documented in this encounter Plan of Treatment Not on filedocumented as of this encounter Visit Diagnoses Diagnosis Phlebitis and thrombophlebitis of lower extremities, unspecified documented in this encounter Care Teams Orthotics Prosthetics Technician Relationship Specialty Start Date End Date Danielle Bender MD PCP - General 04/09/01 08/07/10 1430 [facility] [address] [place] [address] documented as of this encounter
--- OUTSIDE RECORDS SUMMARY | 2022-01-29 17:55 | XMS_ITS | Encounter Summary ---
:1960 Author Organization [employer] Address [address] [place] [address] Care Team Providers Name Role Phone Danielle Bender MD Primary Care Provider Encounter Details Date Type Department Care Team Description 06/22/2001 Office Visit [facility] VENOUS THROMBOSIS [address] [place] [address] Social History Tobacco Use Types Packs/Day Years Used Date Smoking Tobacco: Never Assessed Sex Assigned at Date Recorded Not on file documented as of this encounter Plan of Treatment Not on filedocumented as of this encounter Visit Diagnoses Diagnosis Other acute embolism veins Acute venous embolism and thrombosis of other specified veins documented in this encounter Care Teams Branch Controller Relationship Specialty Start Date End Date Danielle Bender MD PCP - General 04/09/01 08/07/[address] [place] [address] documented as of this encounter
--- OUTSIDE RECORDS SUMMARY | 2022-01-29 17:55 | XMS_ITS | Encounter Summary ---
:1960 Author Organization [facility] Address [address] [place] [address] Care Team Providers Name Role Phone Danielle Bender MD Primary Care Provider Encounter Details Date Type Department Care Team Description 10/30/2001 Orders Only Deloris Chirinos MD [address] [address] (Wo rk) Social History Tobacco Use Types Packs/Day Years Used Date Smoking Tobacco: Never Assessed Sex Assigned at Date Recorded Not on file documented as of this encounter Plan of Treatment Not on filedocumented as of this encounter Procedures Procedure Name Priority Date/Time Associated Diagnosis Comme nts INR/PROTIME Routine 10/30/2001 8:59 AM Results f or this CDT procedure are i n the results section . documented in this encounter Results (ABNORMAL) PROTIME (10/30/2001 8:59 AM CDT) [facility] gist Method Time Signature Protime 25.9 (H) 12.7 - [facility] 16.3 sec Protime New Method Effective 4-01-02 [facility] PLEASE NOTE CHANGE IN EXPECTED VALUES Coumadin Yes [facility] INR 1.9 [facility] Specimen Anatomical Collection Method Collection Time Receive d Time (Source) Location / / Volume Laterality 10/30/2001 8:59 AM 2 9:00 CDT AM CDT Deloris Chirinos MD LAB_1 Performing Organization Address City/State/ZIP Code Phon e Number [facility] [phone] [facility] [address] [place] [phone] documented in this encounter Visit Diagnoses Not on filedocumented in this encounter Care Teams International Affairs Vice President Relationship Specialty Start Date End Date Danielle Bender MD PCP - General 04/09/01 08/07/[address] [place] [address] documented as of this encounter
--- OUTSIDE RECORDS SUMMARY | 2022-01-29 17:55 | XMS_ITS | Encounter Summary ---
:1960 Author Organization [employer] Address [address] [place] [address] Care Team Providers Name Role Phone Danielle Bender MD Primary Care Provider Encounter Details Date Type Department Care Team Description 02/09/2002 Office Visit [facility] [address] [place] [address] Social History Tobacco Use Types Packs/Day Years Used Date Smoking Tobacco: Never Assessed Sex Assigned at Date Recorded Not on file documented as of this encounter Progress Notes Olga Zhu PA-C - 02/09/2002 12:00 AM CDTSUBJECTIVE: Patient is a 41-year-old female who presents today with a tender, swollen area next to the right eye and it there is swelling and tenderness in the neck and jaw area. She indicates that she noticed the symptoms about six days ago. She indicates she is unsure if they are related but they seem to appear about the same time. She does not recall any bug bites. She indicates the lesion next to her eye has not been itch, but occasionally there are some sharp pains associated with it. She has not been out in a wooded area. No complaints of fever, chills, or malaise. No rhinorrhea, cough, shortness of breath, or dyspnea. No complaints of sore throat or ear pain. Current medications include Zoloft, Azmacort and aspirin. No allergies to medications. OBJECTIVE: Weight 312. Temperature 99. Pulse 68. Respirations 16. Blood pressure 130/74. In general, patient in no acute distress. She appears healthy. ENT: TMs are clear bilaterally with normal light reflex; oropharynx is within normal limits. Tonsils not enlarged or inflamed, there is no exudate. Exam reveals two discrete erythematous lesions in the lateral aspect of the right eye and there is some surrounding erythema and edema, very minimal, approximately one centimeter in diameter. There is some swelling and tenderness to palpation of the submandibular area and at the jawline. There is no excessive warmth to the area. There is some swelling and firmness. No cervical lymphadenopathy. ASSESSMENT: 1) Insect bite. 2) Parotitis. PLAN: 1) Recommend some Benadryl orally 50 mg and Bacitracin to the apparent bug bite. She'll begin Augmentin 500 mg b.i.d. with food. 2) For the parotitis, recommend warm compress and some lemon drops or sweet tarts to stimulate salivation. She was instructed to follow up with her primary physician in two days if symptoms are persisting, sooner if there are any worsening or changes in her symptoms. IN SUMMARY: INSECT BITE. PAROTITIS. cc: documented in this encounter Plan of Treatment Not on filedocumented as of this encounter Visit Diagnoses Diagnosis Sialoadenitis documented in this encounter Care Teams Breaker Off Relationship Specialty Start Date End Date Danielle Bender MD PCP - General 04/09/01 08/07/10 [address] [place] [address] documented as of this encounter
--- OUTSIDE RECORDS SUMMARY | 2022-01-29 17:55 | XMS_ITS | Encounter Summary ---
:1960 Author Organization [employer] Address [address] [place] [address] Care Team Providers Name Role Phone Danielle Bender MD Primary Care Provider Encounter Details Date Type Department Care Team Description 02/04/2002 Office Visit [place] Danielle Bender OBESITY NOS; Internal Medicine MD [place] THROMBOPHLEBITIS LEG NOS 1430 [facility] [address] [facility], [address] [place] [address] [phone] Social History Tobacco Use Types Packs/Day Years Used Date Smoking Tobacco: Never Assessed Sex Assigned at Date Recorded Not on file documented as of this encounter Progress Notes Danielle Bender - 02/04/2002 12:00 AM CDTS: This is a 41-year-old white female who comes in today for a get acquainted visit. She has morbid obesity, was just diagnosed in May with type II diabetes for which she lost 20 pounds initially and helped get her blood sugar under good control. Her last hemoglobin A1c was 6 percent. She said that she started to regain the weight now, again, as she has had harder trouble sticking with the diet. She also has had a deep venous thrombosis back around May. She has been on control pills and her factor V Lennox test did come up positive. She recently was stopped off of the coumadin. Her ultrasound of her leg had showed that there was resolution of the clot. She said that according to Dr. Chirinos's note they had wanted to do a protein DISTRICT COMMERCIAL SUPERINTENDENT but wasn't' about to do that because she was on the coumadin, so we will plan on rechecking that again in March when she comes back in for diabetic rechecking. We talked a lot about her morbid obesity and she said that she can't afford the medication to help with obesity such as Xenical or Meridia. And that she has been researching and talking to people who has had gastric bypass surgery. She is at the point where she would like to talk to the surgeon regarding that. O: A: 1. Morbid obesity. 2. Type II diabetes. P: 1. I gave her a referral to see Dr. Edward for gastric bypass surgery. Will plan on having her come back in March to get hemoglobin A1c rechecked. Also check protein DISTRICT COMMERCIAL SUPERINTENDENT. 2. She complained of some left-sided heel pain that seemed to be plantar fasciitis and talked about using heel cups to help with that. IN SUMMARY: MORBID OBESITY, TYPE II DIABETES, HEEL PAIN Twenty minutes was spent with the patient, 15 of which was in counseling, coordination of care. cc: documented in this encounter Plan of Treatment Not on filedocumented as of this encounter Visit Diagnoses Diagnosis Obesity, unspecified ([facility]) Obesity, unspecified Phlebitis and thrombophlebitis of lower extremities, unspecified documented in this encounter Care Teams Warrant Server Relationship Specialty Start Date End Date Danielle Bender MD PCP - General 04/09/01 08/07/10 1430 [facility] [address] [place] [address] documented as of this encounter
--- OUTSIDE RECORDS SUMMARY | 2022-01-29 17:55 | XMS_ITS | Encounter Summary ---
:1960 Author Organization [employer] Address [address] [place] [address] Care Team Providers Name Role Phone Danielle Bender MD Primary Care Provider Encounter Details Date Type Department Care Team Description 09/02/2001 Office Visit [facility] LUDMILA BETES UNCOMPL ADULT-TYPE II; Program COUNSELING, DIETARY [address] [place] [address] Social History Tobacco Use Types Packs/Day Years [...] counseling documented in this encounter Care Teams Head Wrestling Coach Relationship Specialty Start Date End Date Danielle Bender MD PCP - General 04/09/01 08/07/[address] [place] [address] documented as of this encounter
--- OUTSIDE RECORDS SUMMARY | 2022-01-29 17:55 | XMS_ITS | Encounter Summary ---
:1960 Author Organization [facility] Address [address] [place] [address] Care Team Providers Name Role Phone Danielle Bender MD Primary Care Provider Encounter Details Date Type Department Care Team Description 10/15/2001 Orders Only Deloris Chirinos MD [address] [address] (Wo rk) Social History Tobacco Use Types Packs/Day Years Used Date Smoking Tobacco: Never Assessed Sex Assigned at Date Recorded Not on file documented as of this encounter Plan of Treatment Not on filedocumented as of this encounter Procedures Procedure Name Priority Date/Time Associated Diagnosis Comme nts INR/PROTIME Routine 10/15/2001 9:08 AM Results f or this CDT procedure are i n the results section . documented in this encounter Results (ABNORMAL) PROTIME (10/15/2001 9:08 AM CDT) [facility] gist Method Time Signature Protime 20.2 (H) 12.7 - [facility] 16.3 sec Protime New Method Effective 4-01-02 [facility] PLEASE NOTE CHANGE IN EXPECTED VALUES Coumadin Yes [facility] INR 1.5 [facility] Specimen Anatomical Collection Method Collection Time Receive d Time (Source) Location / / Volume Laterality 10/15/2001 9:08 AM 2 9:09 CDT AM CDT Deloris Chirinos MD LAB_1 Performing Organization Address City/State/ZIP Code Phon e Number [facility] [phone] [facility] [address] [place] [phone] documented in this encounter Visit Diagnoses Not on filedocumented in this encounter Care Teams Crochet Beader Relationship Specialty Start Date End Date Danielle Bender MD PCP - General 04/09/01 08/07/[address] [place] [address] documented as of this encounter
--- OUTSIDE RECORDS SUMMARY | 2022-01-29 17:55 | XMS_ITS | Encounter Summary ---
:1960 Author Organization [employer] Address [address] [place] [address] Care Team Providers Name Role Phone Danielle Bender MD Primary Care Provider Encounter Details Date Type Department Care Team Description 06/23/2001 Office [facility] VENOUS THROMBOSIS [address] [place] [address] Social History Tobacco Use Types Packs/Day Years Used Date Smoking Tobacco: Never Assessed Sex Assigned at Date Recorded Not on file documented as of this encounter Plan of Treatment Not on filedocumented as of this encounter Visit Diagnoses Diagnosis Other acute embolism veins Acute venous embolism and thrombosis of other specified veins documented in this encounter Care Teams Wholesale And Retail Merchant Relationship Specialty Start Date End Date Danielle Bender MD PCP - General 04/09/01 08/07/[address] [place] [address] documented as of this encounter
--- OUTSIDE RECORDS SUMMARY | 2022-01-29 17:55 | XMS_ITS | Encounter Summary ---
:1960 Author Organization [facility] Address [address] [place] [address] Care Team Providers Name Role Phone Olamide Rodney MD Primary Care Provider Encounter Details Date Type Department Care Team Description 08/05/2001 Orders Only Deloris Newman MD [address] [place], [place] [phone] [place], [place] [id number] (Wo rk) Social History Tobacco Use Types Packs/Day Years Used Date Smoking Tobacco: Never Assessed Sex Assigned at Date Recorded Not on file documented as of this encounter Plan of Treatment Not on filedocumented as of this encounter Procedures Procedure Name Priority Date/Time Associated Diagnosis Comme nts INR/PROTIME Routine 08/05/2001 8:40 AM Results f or this SUPREME [facility] JUSTICE procedure are i n the results section . documented in this encounter Results (ABNORMAL) PROTIME (08/05/2001 8:[address] JUSTICE) P athologist Signature Protime 27.0 (H) 10.2 - 13.8 [facility] sec Coumadin Yes [facility] INR 2.3 [facility] Specimen Anatomical Collection Method Collection Time Receive d Time (Source) Location / / Volume Laterality 08/05/2001 8:40 AM 2 8:[address] JUSTICE AM [address] JUSTICE Deloris Chirinos MD LAB_1 Performing Organization Address City/State/ZIP Code Phon e Number [facility] [phone] [address] documented in this encounter Visit Diagnoses Not on filedocumented in this encounter Care Teams Licensing And Registration Director Relationship Specialty Start Date End Date Olamide Rodney MD PCP - General 09/25/10 01/11/21 [address] [place], [place] [address] documented as of this encounter
--- OUTSIDE RECORDS SUMMARY | 2022-01-29 17:55 | XMS_ITS | Encounter Summary ---
:1960 Author Organization [employer] Address [address] [place] [address] Care Team Providers Name Role Phone Danielle Bender MD Primary Care Provider Encounter Details Date Type Department Care Team Description 08/26/2001 Office Visit [facility] LUDMILA BETES UNCOMPL ADULT-TYPE II; Program COUNSELING, DIETARY [address] [place] [address] Social History Tobacco Use Types Packs/Day Years [...] counseling documented in this encounter Care Teams Pastry Assistant Relationship Specialty Start Date End Date Danielle Bender MD PCP - General 04/09/01 08/07/[address] [place] [address] documented as of this encounter
--- OUTSIDE RECORDS SUMMARY | 2022-01-29 17:55 | XMS_ITS | Encounter Summary ---
:1960 [address] [facility] Address [address] [place] [address] Care Team Providers Name Role Phone Danielle Bender MD Primary Care Provider Reason for Visit Reason Comments LAB RESULTS Encounter Details Date Type Department Care Team Description 07/10/2001 Telephone Careline Munir Leger, PROSTHETIST RESULTS [address] [place], [place] [address] [place] [address] [phone] Social History Tobacco Use Types Packs/Day Years Used Date Smoking Tobacco: Never Assessed Sex Assigned at Date Recorded Not on file documented as of this encounter Nursing Notes 07/10/2001 11:59 PM INTERACTIVE DIGITAL MEDIA SPECIALIST >> MUNIR CHAVIRA FriJul 10, 2001 5:26 PM Called pt and she answered phone and information was relayed and pt verbalized understanding and will f/u at clinic on 07-20-00Friday for recheck of INR. >> MUNIR CHAVIRA FriJul 10, 2001 5:00 PM >> COMPLETED ON FriJul 10, 2001 5:14 PM >> CALL RECEIVED. Contact: Unable to reach patient with INR results. Message left for patient to call CareLine: yes if she gets message after 5pm Coumadin nurse calling: Salima Phone numbers for patient: [phone] Diagnosis: DVT Desired Therapeutic Range: 2.0 - 3.0 Coumadin initiation date: not asked Patient on enoxaparin: no Ordering Physician: Dr Deloris Chirinos Date INR Drawn: today 07-10-00 INR result: 3.7, elevated for second time. Out of range: yes Current dose of coumadin: Mon 7.5, Tues 5.0, Wed 5.o, Th 5.0, Fri 7.5, Sat 5.0, Sun 5.0. Change in dose of coumadin: Mon 5.0, Tues 5.0, Wed 5.0, Thurs 5.0, Fri 5.0, Sat 5.0 Sun 5.0. Comments: Pt has been taking 7.5 mg coumadin Mon and Fri and 5mg the rest of the days of the week. She is to take coumadin 5mg every day of the week and recheck INR Friday07-20-00. Clinic phone number: [phone] Clinic Fax number: [phone]. Pt to call clinic nurse if gets message before 5pm otherwise careline nurse is to try and reach herafter 5pm nurse stated. documented in this encounter Plan of Treatment Not on filedocumented as of this encounter Visit Diagnoses Not on filedocumented in this encounter Care Teams Anger Control Counselor Relationship Specialty Start Date End Date Danielle Bender MD PCP - General 04/09/01 08/07/10 1430 [facility] [address] [place] [address] documented as of this encounter
--- OUTSIDE RECORDS SUMMARY | 2022-01-29 17:55 | XMS_ITS | Encounter Summary ---
:1960 Author Organization [facility] Address [address] [place] [address] Care Team Providers Name Role Phone Olamide Rodney MD Primary Care Provider Encounter Details Date Type Department Care Team Description 06/26/2001 Orders Only Deloris Newman MD [address] [place], [place] [phone] [place], [place] [id number] (Wo rk) Social History Tobacco Use Types Packs/Day Years Used Date Smoking Tobacco: Never Assessed Sex Assigned at Date Recorded Not on file documented as of this encounter Plan of Treatment Not on filedocumented as of this encounter Procedures Procedure Name Priority Date/Time Associated Diagnosis Comme nts INR/PROTIME Routine 06/26/2001 8:25 AM Results f or this SUPERVISOR WASH HOUSE procedure are i n the results section . documented in this encounter Results (ABNORMAL) PROTIME (06/26/2001 8:25 AM SUPERVISOR WASH HOUSE) P athologist Signature Protime 25.8 (H) 10.2 - 13.8 [facility] sec Coumadin Yes [facility] INR 2.2 [facility] Specimen Anatomical Collection Method Collection Time Receive d Time (Source) Location / / Volume Laterality 06/26/2001 8:25 AM 2 9:13 SUPERVIS[employer] WASH HOUSE AM [employer]PER[employer] [employer]ASH HOUSE Deloris Chirinos MD LAB_1 Performing Organization Address City/State/ZIP Code Phon e Number [facility] [phone] [address] documented in this encounter Visit Diagnoses Not on filedocumented in this encounter Care Teams Assistant Professor Of Nursing Relationship Specialty Start Date End Date Olamide Rodney MD PCP - General 09/25/10 01/11/21 [address] [place], [place] [address] documented as of this encounter
--- OUTSIDE RECORDS SUMMARY | 2022-01-29 17:55 | XMS_ITS | Encounter Summary ---
:1960 Author Organization [employer] Address [address] [place] [address] Care Team Providers Name Role Phone Danielle Bender MD Primary Care Provider Encounter Details Date Type Department Care Team Description 09/16/2001 Office Visit [facility] LUDMILA BETES UNCOMPL ADULT-TYPE II; Program COUNSELING, DIETARY [address] [place] [address] Social History Tobacco Use Types Packs/Day Years [...] counseling documented in this encounter Care Teams Respite Provider Relationship Specialty Start Date End Date Danielle Bender MD PCP - General 04/09/01 08/07/[address] [place] [address] documented as of this encounter
--- OUTSIDE RECORDS SUMMARY | 2022-01-29 17:55 | XMS_ITS | Encounter Summary ---
:1960 Author Organization [employer] Address [address] [place] [address] Care Team Providers Name Role Phone Danielle Bender MD Primary Care Provider Encounter Details Date Type Department Care Team Description 07/01/2001 Office Visit [place] Mar[facility] DIABETES UNCOMPL ADULT-TYPE II; Diabetes Program [facility], [address] [place] [address] [phone] Social History Tobacco Use Types Packs/Day Years Used Date Smoking Tobacco: Never Assessed Sex Assigned at Date Recorded Not on file documented as of this encounter Plan of Treatment Not on filedocumented as of this encounter Visit Diagnoses Diagnosis Type II or unspecified type diabetes rod litus without mention of complication, not stated as uncontrolled Counseling NOS(V65.40) Counseling NOS documented in this encounter Care Teams Job Development Specialist Relationship Specialty Start Date End Date Danielle Bender MD PCP - General 04/09/01 08/07/[address] [place] [address] documented as of this encounter
--- OUTSIDE RECORDS SUMMARY | 2022-01-29 17:55 | XMS_ITS | Encounter Summary ---
:1960 Author Organization [facility] Address [address] [place] [address] Care Team Providers Name Role Phone Danielle Bender MD Primary Care Provider Encounter Details Date Type Department Care Team Description 09/09/2001 Office Visit [facility] Deloris Chirinos THROMBOPH LEBITIS LEG NOS; Internal Medicine MD Gilberto DIABETES UNCOMPL ADULT-TYPE II [address] [place], [place] [address] [place] [address] [phone] Social History Tobacco Use Types Packs/Day Years Used Date Smoking Tobacco: Never Assessed Sex Assigned at Date Recorded Not on file documented as of this encounter Progress Notes Deloris Chirinos - 09/09/2001 12:00 AM CSTSUBJECTIVE: 40 year old woman that's in today for follow up on diabetes and also to follow up on blood tests done to evaluate for coagulopathy. Patient had blood work done a few weeks ago to screen for homocystine levels, factor V ligand, also for protein, acid protein, C-deficiencies. 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 Reviewed this with patient and she was very attentive. She has been on Coumadin now for approximately three months for right leg DVT and appears to be doing well. Patient also had been found to have elevated fasting blood sugar and elevated hemoglobin A1C in May of last year. She has been watching her diet closely and monitoring blood glucose. She is now averaging a morning fasting blood sugar of less then 120. She had blood work done also a few weeks back which showed hemoglobin A1C decreased from 7.0% to 5.9%. Her fasting glucose changed from 140 down to 102. She states sometimes she goes a long time without eating and she'll feel somewhat dizzy. Patient in general is pleased with her progress on her diabetic diet and her blood sugars. OBJECTIVE: On exam today: her weight 307 pounds, pulse 72, blood pressure 110/72. This is an obese, middle aged woman. She appears well. No other exam is done today. ASSESSMENT: DVT, right leg resolving after three months on Coumadin. Factor V ligand positive. Glucose intolerance, much improved on weight loss and diabetic diet. PLAN: 1) Patient is attending diabetic teaching class today and she will plan to continue on all current medications without change. 2) Encouraged patient to have some juice every morning if she doesn't feel like eating any food in order to decrease periods of dizziness. 3) Patient will see me back in three months for recheck. Did discuss with patient possibility of rechecking an ultrasound at that time and considering coming off of Coumadin after six months if healing process is good. IN SUMMARY: FOLLOW UP RIGHT LEG DVT, DIABETES MELLITUS TYPE II, OBESITY. cc: H MACHINE SETTER documented in this encounter Plan of Treatment Not on filedocumented as of this encounter Visit Diagnoses Diagnosis Phlebitis and thrombophlebitis of lower extremities, unspecified Type II or unspecified type diabetes rod litus without mention of complication, not stated as uncontrolled documented in this encounter Care Teams Pattern Keeper Relationship Specialty Start Date End Date Danielle Bender MD PCP - General 04/09/01 08/07/[address] [place] [address] documented as of this encounter
--- OUTSIDE RECORDS SUMMARY | 2022-01-29 17:55 | XMS_ITS | Encounter Summary ---
:1960 Author Organization [facility] Address [address] [place] [address] Care Team Providers Name Role Phone Danielle Bender MD Primary Care Provider Encounter Details Date Type Department Care Team Description 06/26/2001 Orders Only [facility] CREENING MAMM-MALIG NEOPL-HI RISK; Mammography PERS [facility]X [facility] [address] [place], [place] [address] Social History Tobacco Use Types Packs/Day Years Used Date Smoking Tobacco: Never Assessed Sex Assigned at Date Recorded Not on file documented as of this encounter Plan of Treatment Not on filedocumented as of this encounter Visit Diagnoses Diagnosis Screening mammogram for high-risk patien t Other specified personal history present ing hazards to health(V15.89) Other specified personal history present ing hazards to health documented in this encounter Care Teams Clinical Training Coordinator Relationship Specialty Start Date End Date Danielle Bender MD PCP - General 04/09/01 08/07/[address] [place] [address] documented as of this encounter
--- OUTSIDE RECORDS SUMMARY | 2022-01-29 17:55 | XMS_ITS | Encounter Summary ---
:1960 Author Organization [facility] Address [address] [place] [address] Care Team Providers Name Role Phone Danielle Bender MD Primary Care Provider Encounter Details Date Type Department Care Team Description 11/06/2001 Orders Only Deloris Chirinos MD [address] [id number] (Wo rk) Social History Tobacco Use Types Packs/Day Years Used Date Smoking Tobacco: Never Assessed Sex Assigned at Date Recorded Not on file documented as of this encounter Plan of Treatment Not on filedocumented as of this encounter Procedures Procedure Name Priority Date/Time Associated Diagnosis Comme nts INR/PROTIME Routine 11/06/2001 9:02 AM Results f or this CDT procedure are i n the results section . documented in this encounter Results (ABNORMAL) PROTIME (11/06/2001 9:02 AM CDT) [facility] Method Time Signature Protime 24.4 (H) 12.7 - [facility] 16.3 sec Protime New Method Effective 4-01-02 [facility] PLEASE NOTE CHANGE IN EXPECTED VALUES Coumadin Yes [facility] INR 1.8 [facility] Specimen Anatomical Collection Method Collection Time Receive d Time (Source) Location / / Volume Laterality 11/06/2001 9:02 AM 2 9:07 CDT AM CDT Deloris Chirinos MD LAB_1 Performing Organization Address City/State/ZIP Code Phon e Number [facility] [phone] [facility] [address] [place] [address] documented in this encounter Visit Diagnoses Not on filedocumented in this encounter Care Teams Optometric Coordinator Relationship Specialty Start Date End Date Danielle Bender MD PCP - General 04/09/01 08/07/[address] [place] [address] documented as of this encounter
--- OUTSIDE RECORDS SUMMARY | 2022-01-29 17:55 | XMS_ITS | Encounter Summary ---
:1960 Author Organization [employer] Address [address] [place] [address] Care Team Providers Name Role Phone Danielle Bender MD Primary Care Provider Encounter Details Date Type Department Care Team Description 07/14/2001 Office Visit [facility] Deloris Chirinos, VENOUS THROMBOSIS NEC; Internal Medicine MD FOLLOW-UP EXAM [facility]; [address] [place] [address] [address] [facility] DIABETES [place] [address] [phone] Social History Tobacco Use Types Packs/Day Years Used Date Smoking Tobacco: Never Assessed Sex Assigned at Date Recorded Not on file documented as of this encounter Progress Notes Deloris Chirinos - 07/14/2001 12:00 AM CSTSUBJECTIVE: Tag[age]-old woman that comes in today for followup of right leg deep vein thrombosis and diabetes. Patient has been pain free from her right posterior knee pain where she had the deep vein thrombosis for 2 weeks. She is currently on Coumadin, and her last INR was approximately 3. She also has seen the diabetic dietitian and diabetic nurse within the last few weeks since being diagnosed with diabetes. She is checking her blood sugar twice daily, and that has been running less than 150. She has also started counting carbohydrates and has noticed on her home scale a 20-pound weight loss. She states she is feeling very good about the changes she is making in her lifestyle. She has also seen her toaster operator within the last one week, and he did not note any changes in her eyes from diabetes. OBJECTIVE: On physical examination, her weight 313, pulse 60, blood pressure 118/90. This is an obese, middle-aged woman. She appears well. On exam, patient really had not pain in the right posterior knee, and there is no swelling noted of that leg. ASSESSMENT: 1. Deep vein thrombosis, right leg, improving. (Of note, patient has stopped control pills since I saw her last on June 24, 2001.) 2. Diabetes type 2. Patient working on weight loss and diabetic diet. PLAN: 1. Patient to continue on her current medications and current diet and exercise plan. 2. Patient attends diabetes classes in July taught by Mar[facility]. 3. Patient may continue to monitor her blood sugar at home and will call if her levels go over 130,140 consistently. 4. Patient will return for a blood test for her diabetes and also to check clotting factor labs in August. She will see me the week after she has those blood tests drawn. Patient to follow up earlier if notices any problems. IN SUMMARY: Follow up deep vein thrombosis right leg, diabetes mellitus type 2. cc: FING EXECUTIVE documented in this encounter Plan of Treatment Not on filedocumented as of this encounter Visit Diagnoses Diagnosis Other acute embolism veins Acute venous embolism and thrombosis of other specified veins Other follow-up examination(V67.59) Other follow-up examination Type II or unspecified type diabetes rod litus without mention of complication, not stated as uncontrolled documented in this encounter Care Teams Molecular Technologist Relationship Specialty Start Date End Date Danielle Bender MD PCP - General 04/09/01 08/07/[address] [place] [address] documented as of this encounter
--- OUTSIDE RECORDS SUMMARY | 2022-01-29 17:55 | XMS_ITS | Encounter Summary ---
:1960 Author Organization [facility] Address [address] [place] [address] Care Team Providers Name Role Phone Olamide Rodney MD Primary Care Provider Encounter Details Date Type Department Care Team Description 07/20/2001 Orders Only Deloris Newman MD [address] [place], [place] [phone] [place], [place] [id number] (Wo rk) Social History Tobacco Use Types Packs/Day Years Used Date Smoking Tobacco: Never Assessed Sex Assigned at Date Recorded Not on file documented as of this encounter Plan of Treatment Not on filedocumented as of this encounter Procedures Procedure Name Priority Date/Time Associated Diagnosis Comme nts INR/PROTIME Routine 07/20/2001 9:10 AM Results f or this ENVIRONMENTAL MANAGEMENT SPECIALIST procedure are i n the results section . documented in this encounter Results (ABNORMAL) PROTIME (07/20/2001 9:10 AM ENVIRONMENTAL MANAGEMENT SPECIALIST) P athologist Signature Protime 26.0 (H) 10.2 - 13.8 [facility] sec Coumadin Yes [facility] INR 2.2 [facility] Specimen Anatomical Collection Method Collection Time Receive d Time (Source) Location / / Volume Laterality 07/20/2001 9:10 AM 200 2 9:36 ENVIRONMENTAL MANAGEMENT SPECIALIST AM ENVIRONMENTAL MANAGEMENT SPECIALIST Deloris Chirinos MD LAB_1 Performing Organization Address City/State/ZIP Code Phon e Number [facility] [phone] [address] documented in this encounter Visit Diagnoses Not on filedocumented in this encounter Care Teams Catalog Library Assistant Relationship Specialty Start Date End Date Olamide Rodney MD PCP - General 09/25/10 01/11/21 [address] [place], [place] [address] documented as of this encounter
--- OUTSIDE RECORDS SUMMARY | 2022-01-29 17:55 | XMS_ITS | Encounter Summary ---
:1960 Author Organization [facility] Address [address] [place] [address] Care Team Providers Name Role Phone Danielle Bender MD Primary Care Provider Encounter Details Date Type Department Care Team Description 12/10/2001 Orders Only Deloris Chirinos MD [address] [address] (Wo rk) Social History Tobacco Use Types Packs/Day Years Used Date Smoking Tobacco: Never Assessed Sex Assigned at Date Recorded Not on file documented as of this encounter Plan of Treatment Not on filedocumented as of this encounter Procedures Procedure Name Priority Date/Time Associated Diagnosis Comme nts ALBUMIN/CREAT RATIO Routine 12/10/2001 8:35 AM Re sults for this CDT procedure are i n the results section. documented in this encounter Results MICROALBUMIN/CREATININE RATIO (12/10/2001 8:35 AM CDT) [facility] Method Time Signature Albumin, 2.4 mg/dl [facility] Urine, Random Creatinine,Ur 293.3 mg/dl [facility] Random Alb/Creat 8 <30 mg/[facility] Ratio, Urine, creatinine Random Specimen Anatomical Collection Method Collection Time Receive d Time (Source) Location / / Volume Laterality 12/10/2001 8:35 AM 2 8:53 CDT AM CDT Deloris Chirinos MD LAB_1 Performing Organization Address City/State/ZIP Code Phon e Number [facility] [phone] [facility] [address] [address] documented in this encounter Visit Diagnoses Not on filedocumented in this encounter Care Teams Harness Cutter Relationship Specialty Start Date End Date Danielle Bender MD PCP - General 04/09/01 08/07/[address] [place] [address] documented as of this encounter
--- OUTSIDE RECORDS SUMMARY | 2022-01-29 17:55 | XMS_ITS | Encounter Summary ---
:1960 Author Organization [facility] Address [address] [place] [address] Care Team Providers Name Role Phone Olamide Rodney MD Primary Care Provider Encounter Details Date Type Department Care Team Description 06/24/2001 Orders Only Deloris Newman MD [address] [place], [place] [phone] [place], [place] [phone] (Wo rk) Social History Tobacco Use Types Packs/Day Years Used Date Smoking Tobacco: Never Assessed Sex Assigned at Date Recorded Not on file documented as of this encounter Plan of Treatment Not on filedocumented as of this encounter Procedures Procedure Name Priority Date/Time Associated Diagnosis Comme nts INR/PROTIME Routine 06/24/2001 9:27 AM Results f or this TECHNOLOGY CONSULTANT procedure are i n the results section . documented in this encounter Results (ABNORMAL) PROTIME (06/24/2001 9:27 AM TECHNOLOGY CONSULTANT) P athologist Signature Protime 18.1 (H) 10.2 - 13.8 [facility] sec Coumadin Yes [facility] INR 1.5 [facility] Specimen Anatomical Collection Method Collection Time Receive d Time (Source) Location / / Volume Laterality 06/24/2001 9:27 AM 2 9:28 TECHNOLOGY CONSULTANT AM TECHNOLOGY CONSULTANT Deloris Chirinos MD LAB_1 Performing Organization Address City/State/ZIP Code Phon e Number [facility] [phone] [address] documented in this encounter Visit Diagnoses Not on filedocumented in this encounter Care Teams Contact Center Representative Relationship Specialty Start Date End Date Olamide Rodney MD PCP - General 09/25/10 01/11/21 [address] [place], [place] [address] documented as of this encounter
--- OUTSIDE RECORDS SUMMARY | 2022-01-29 17:55 | XMS_ITS | Encounter Summary ---
:1960 Author Organization [facility] Address [address] [place] [address] Care Team Providers Name Role Phone Olamide Rodney MD Primary Care Provider Encounter Details Date Type Department Care Team Description 07/03/2001 Orders Only Deloris Newman MD [address] [place], [place] [phone] [place], [place] [phone] (Wo rk) Social History Tobacco Use Types Packs/Day Years Used Date Smoking Tobacco: Never Assessed Sex Assigned at Date Recorded Not on file documented as of this encounter Plan of Treatment Not on filedocumented as of this encounter Procedures Procedure Name Priority Date/Time Associated Diagnosis Comme nts INR/PROTIME Routine 07/03/2001 8:59 AM Results f or this SHAREPOINT NET DEVELOPER procedure are i n the results section . documented in this encounter Results (ABNORMAL) PROTIME (07/03/2001 8:59 AM SHAREPOINT NET DEVELOPER) P athologist Signature Protime 36.8 (H) 10.2 - 13.8 [facility] sec Coumadin Yes [facility] INR 3.2 [facility] Specimen Anatomical Collection Method Collection Time Receive d Time (Source) Location / / Volume Laterality 07/03/2001 8:59 AM 200 2 9:00 SHAREPOINT NET DEVELOPER AM SHAREPOINT NET DEVELOPER Deloris Chirinos MD LAB_1 Performing Organization Address City/State/ZIP Code Phon e Number [facility] [phone] [address] documented in this encounter Visit Diagnoses Not on filedocumented in this encounter Care Teams Kineseologist Relationship Specialty Start Date End Date Olamide Rodney MD PCP - General 09/25/10 01/11/21 [address] [place], [place] [address] documented as of this encounter
--- OUTSIDE RECORDS SUMMARY | 2022-01-29 17:55 | XMS_ITS | Encounter Summary ---
:1960 Author Organization [facility] Address [address] [place] [address] Care Team Providers Name Role Phone Olamide Rodney MD Primary Care Provider Encounter Details Date Type Department Care Team Description 06/29/2001 Orders Only Deloris Newman MD [address] [place], [place] [phone] [place], [place] [phone] (Wo rk) Social History Tobacco Use Types Packs/Day Years Used Date Smoking Tobacco: Never Assessed Sex Assigned at Date Recorded Not on file documented as of this encounter Plan of Treatment Not on filedocumented as of this encounter Procedures Procedure Name Priority Date/Time Associated Diagnosis Comme nts INR/PROTIME Routine 06/29/2001 8:20 AM Results f or this CLINICAL TRAINING SPECIALIST procedure are i n the results section . documented in this encounter Results (ABNORMAL) PROTIME (06/29/2001 8:20 AM CLINICAL TRAINING SPECIALIST) P athologist Signature Protime 30.5 (H) 10.2 - 13.8 [facility] sec Coumadin Yes [facility] INR 2.6 [facility] Specimen Anatomical Collection Method Collection Time Receive d Time (Source) Location / / Volume Laterality 06/29/2001 8:20 AM 2 8:21 CLINICAL TRAINING SPECIALIST AM CLINICAL TRAINING SPECIALIST Deloris Chirinos MD LAB_1 Performing Organization Address City/State/ZIP Code Phon e Number [facility] [phone] [address] documented in this encounter Visit Diagnoses Not on filedocumented in this encounter Care Teams Wind Turbine Sheet Metal Worker Relationship Specialty Start Date End Date Olamide Rodney MD PCP - General 09/25/10 01/11/21 [address] [place], [place] [address] documented as of this encounter
--- OUTSIDE RECORDS SUMMARY | 2022-01-29 17:55 | XMS_ITS | Encounter Summary ---
:1960 Author Organization [facility] Address [address] [place] [address] Care Team Providers Name Role Phone Danielle Bender MD Primary Care Provider Encounter Details Date Type Department Care Team Description 06/26/2001 Orders Only [facility] Deloris Chirinos MD [address] [address] [place] [address] [phone] Social History Tobacco Use Types Packs/Day Years Used Date Smoking Tobacco: Never Assessed Sex Assigned at Date Recorded Not on file documented as of this encounter Procedure Notes Blu Machado - 06/26/2001 12:00 AM CSTAssociated Order(s): BREAST IMAGING CLINICAL DATA: Screening. EXAMINATION: IN SUMMARY: BILATERAL MAMMOGRAM 06/26/00: Normal fatty breasts, unchanged from 04/19/99. ACR BIRADS CATEGORY 1 - NEGATIVE MAMMOGRAM. America [place] MD cc: Radiology Deloris Chirinos MD BOAT CAPTAIN documented in this encounter Plan of Treatment Not on filedocumented as of this encounter Procedures Procedure Name Priority Date/Time Associated Diagnosis Comme nts BREAST IMAGING 06/26/2001 Results for t his procedure are in the resu lts section. documented in this encounter Results BREAST IMAGING (06/26/2001) Anatomical Region Laterality Modality Breast Other Specimen (Source) Anatomical Location Collection Method / Collectio n Time Received Time / Laterality Volume Transcriptions Blu Machado - 06/26/2001 12:00 AM C STCLINICAL DATA: Screening. EXAMINATION: IN SUMMARY: BILATERAL MAMMO GRAM 06/26/00: Normal fatty breasts, unchanged from . ACR BIRADS CATEGORY 1 - NEGATIVE MAMMOGR AM. America [place] MD cc: Radiology Deloris Chirinos MD Deloris Chirinos MD RAD_BI documented in this encounter Visit Diagnoses Not on filedocumented in this encounter Care Teams Ton Container Shipper Relationship Specialty Start Date End Date Danielle Bender MD PCP - General 04/09/01 08/07/[address] [place] [address] documented as of this encounter
--- OUTSIDE RECORDS SUMMARY | 2022-01-29 17:55 | XMS_ITS | Encounter Summary ---
:1960 Author Organization [facility] Address [address] [place] [address] Care Team Providers Name Role Phone Danielle Bender MD Primary Care Provider Encounter Details Date Type Department Care Team Description 06/25/[address] [facility] [address] [facility] VENOUS THROMBOSIS NEC [address] [place] [address] Social History Tobacco Use Types Packs/Day Years Used Date Smoking Tobacco: Never Assessed Sex Assigned at Date Recorded Not on file documented as of this encounter Plan of Treatment Not on filedocumented as of this encounter Visit Diagnoses Diagnosis Other acute embolism veins Acute venous embolism and thrombosis of other specified veins documented in this encounter Care Teams Food And Beverage Analyst Relationship Specialty Start Date End Date Danielle Bender MD PCP - General 04/09/01 08/07/[address] [place] [address] documented as of this encounter
--- OUTSIDE RECORDS SUMMARY | 2022-01-29 17:55 | XMS_ITS | Encounter Summary ---
:1960 Author Organization [email or web address] Address [address] [place] [address] Care Team Providers Name Role Phone Danielle Bender MD Primary Care Provider Encounter Details Date Type Department Care Team Description 12/17/2001 Office Visit [facility] Klein Deloris Chirinos DIABETES UNCOMPL ADULT- TYPE II; Internal Medicine MD Gilberto THROMBOPHLEBITIS [place] [address] [address] [place] [id number] [phone] Social History Tobacco Use Types Packs/Day Years Used Date Smoking Tobacco: Never Assessed Sex Assigned at Date Recorded Not on file documented as of this encounter Consult Notes Deloris Chirinos - 12/17/2001 12:00 AM CDTSUBJECTIVE: 40-year-old woman who comes in to follow up on her diabetes, mild depression and right leg DVT. Patient is diet controlled on diabetes and had blood test done one week for reevaluation. She's been monitoring her home blood sugars and they have been ranging less than 130 regularly. She states that her right leg has been feeling very good and she's not had any pain or swelling in it. Patient has been on Coumadin since last May 2001 for a first time deep venous thrombosis, right leg. Patient is also on low-dose Zoloft 50 mg daily. She states that she finds she doesn't feel as happy as she would like to be on the medication, but it does prevent her from having very deep depressions. She would like to stay on it at this time. She had a summer cold about four days ago and that's now resolving. OBJECTIVE: She declined a weight. Her blood pressure is 108/70, pulse rate 76. On examination today, her right calf is soft. There's no edema in that right leg. No other exam is done. Data: Blood work done 12/10/01 for INR = 2.4 on Coumadin, hemoglobin A1C = 6.0%, cholesterol total = 221, triglycerides = 141, HDL = 50, LDL = 143. Liver function tests normal and urine for protein normal. ASSESSMENT: 1) Diabetes type II with excellent control on diet. Patient is increasing her exercise. 2) Borderline elevated cholesterol levels for a diabetic. 3) History of right leg deep venous thrombosis currently doing quite well. 4) Dysthymia with good medication control on low-dose Zoloft. PLAN: 1) Patient will have an ultrasound done within the next one week for evaluation of right leg deep venous thrombosis resolution. Will notify patient of results and if this is showing good healing, will switch patient over to doing aspirin one daily. 2) Patient to continue on diet and exercise for diabetes and plan for her to reevaluate her hemoglobin A1C levels in 3 months with a new provider. 3) Will continue Zoloft at 50 mg daily without change. 4) As an addendum, patient's mother had colon cancer when she was in her late 50's. Discussed with patient that we would plan for her to have her first colonoscopy at age 43, which would be approximately 10-12 years before her mother had her colon cancer. Also discussed with patient the possibility of doing stool cards just as a screening test over the next couple of months for colon problems. Did discuss symptoms that people might notice with colon cancer but told her that these are late symptoms and we would like to always catch things earlier. Patient will consider this. IN SUMMARY: FOLLOW UP: DIABETES, RIGHT LEG DEEP VENOUS THROMBOSIS, DYSTHYMIA, FAMILY HISTORY COLON CA cc: documented in this encounter Plan of Treatment Not on filedocumented as of this encounter Visit Diagnoses Diagnosis Type II or unspecified type diabetes rod litus without mention of complication, not stated as uncontrolled Phlebitis and thrombophlebitis of other site documented in this encounter Care Teams Interactive Media Director Relationship Specialty Start Date End Date Danielle Bender MD PCP - General 04/09/01 08/07/10 1430 [facility] [address] [place] [address] documented as of this encounter
--- OUTSIDE RECORDS SUMMARY | 2022-01-29 17:55 | XMS_ITS | Encounter Summary ---
:1960 Author Organization [employer] Address [address] [place] [address] Care Team Providers Name Role Phone Danielle Bender MD Primary Care Provider Encounter Details Date Type Department Care Team Description 06/26/[address] [facility] THRO MBOPHLEBITIS LEG NOS Department [address] [place] [id number] Social History Tobacco Use Types Packs/Day Years Used Date Smoking Tobacco: Never Assessed Sex Assigned at Date Recorded Not on file documented as of this encounter Plan of Treatment Not on filedocumented as of this encounter Visit Diagnoses Diagnosis Phlebitis and thrombophlebitis of lower extremities, unspecified documented in this encounter Care Teams Geothermal Installer Relationship Specialty Start Date End Date Danielle Bender MD PCP - General 04/09/01 08/07/10 1430 [facility] [address] [place] [address] documented as of this encounter
--- OUTSIDE RECORDS SUMMARY | 2022-01-29 17:55 | XMS_ITS | Encounter Summary ---
:1960 Author Organization [employer] Address [address] [place] [address] Care Team Providers Name Role Phone Danielle Bender MD Primary Care Provider Encounter Details Date Type Department Care Team Description 12/10/2001 Orders Only Deloris Chirinos MD [address] [place] [id number] (Wo rk) Social History Tobacco Use Types Packs/Day Years Used Date Smoking Tobacco: Never Assessed Sex Assigned at Date Recorded Not on file documented as of this encounter Plan of Treatment Not on filedocumented as of this encounter Procedures Procedure Name Priority Date/Time Associated Comments Diagnosis LIPID PANEL, FAST > Routine 12/10/2001 8:35 AM Re sults for this 12 HOUR CDT procedure are i n the results section. HGB A1C Routine 12/10/2001 8:35 AM Results f or this CDT procedure are i n the results section. ALT (SGPT) Routine 12/10/2001 8:35 AM Results f or this CDT procedure are i n the results section. AST Routine 12/10/2001 8:35 AM Results f or this CDT procedure are i n the results section. GLUCOSE - FASTING > Routine 12/10/2001 8:35 AM Re sults for this 8 HRS FASTING CDT procedure are in the results section. CREATININE Routine 12/10/2001 8:35 AM Results f or this CDT procedure are i n the results section. BILIRUBIN, TOTAL Routine 12/10/2001 8:35 AM Resul ts for this CDT procedure are i n the results section. INR/PROTIME Routine 12/10/2001 8:35 AM Results f or this CDT procedure are i n the results section. documented in this encounter Results HGB A1C (12/10/2001 8:35 AM CDT) athologist Signature Hgb A1c 6.0 4.3 - 6.1 % [facility] Specimen Anatomical Collection Method Collection Time Receive d Time (Source) Location / / Volume Laterality 12/10/2001 8:35 AM 2 8:37 CDT AM CDT Deloris Chirinos MD LAB_1 Performing Organization Address [facility] Phon e Number [employer] [phone] [phone] (ABNORMAL) GLUCOSE - FASTING > 8 HRS FASTING (12/10/2001 8:35 AM CDT) Analysis Performed At [facility] logist Time Signature Glucose 127 (H) 70 - 110 [facility] mg/dl Hours Fasting 13.5 hours [facility] Specimen Anatomical Collection Method Collection Time Receive d Time (Source) Location / / Volume Laterality 12/10/2001 8:35 AM 2 8:37 CDT AM CDT Deloris Chirinos MD LAB_1 Performing Organization Address [facility] Phon e Number [employer] [phone] [address] CREATININE (12/10/2001 8:35 AM CDT) athologist Signature Creatinine 0.9 0.5 - 1.2 [facility] mg/dl Specimen Anatomical Collection Method Collection Time Receive d Time (Source) Location / / Volume Laterality 12/10/2001 8:35 AM 2 8:37 CDT AM CDT Deloris Chirinos MD LAB_1 Performing Organization Address [facility] Phon e Number [employer] [phone] [facility] [address] [place] [phone] (ABNORMAL) CHOLESTEROL LIPID PANEL FAST >12HR FAST (12/10/2001 8:35 AM CDT) Component Value Ref Test Analysis Performed At [facility] gist Range Method Time Signature Cholesterol 221 (H) <200 [facility] mg/dl Cholesterol Result should not be interpreted without [facility] the patient's history of cardiovascular risk factors. Triglyceride 141 <200 [facility] mg/dl HDL 50 >35 [facility] mg/dl LDL, Calc. 143 mg/dl [facility] Hours Fasting 13.5 hours [facility] Specimen Anatomical Collection Method Collection Time Receive d Time (Source) Location / / Volume Laterality 12/10/2001 8:35 AM 2 8:37 CDT AM CDT Deloris Chirinos MD LAB_1 Performing Organization Address [facility] Phon e Number [email or web address] [phone] [phone] BILI - TOTAL (12/10/2001 8:35 AM CDT) athologist Signature Bilirubin, 0.4 0.2 - 1.2 [facility] Total mg/dl Specimen Anatomical Collection Method Collection Time Receive d Time (Source) Location / / Volume Laterality 12/10/2001 8:35 AM 2 8:37 CDT AM CDT Deloris Chirinos MD LAB_1 Performing Organization Address [facility] Phon e Number [facility] Differential Dynamics [phone] [phone] AST (SGOT) (12/10/2001 8:35 AM CDT) athologist Signature AST (SGOT) 21 <45 U/L [facility] Specimen Anatomical Collection Method Collection Time Receive d Time (Source) Location / / Volume Laterality 12/10/2001 8:35 AM 2 8:37 CDT AM CDT Deloris Chirinos MD LAB_1 Performing Organization Address [facility]/ZIP Code Phon e Number [facility] [phone] [facility] [address] [phone] ALT (SGPT) (12/10/2001 8:35 AM CDT) P athologist Signature ALT (SGPT) 21 0 - 55 U/L [facility] Specimen Anatomical Collection Method Collection Time Receive d Time (Source) Location / / Volume Laterality 12/10/2001 8:35 AM 2 8:37 CDT AM CDT Deloris Chirinos MD LAB_1 Performing Organization Address [facility] Code Phon e Number [facility] [phone] [facility] [address] [place] [phone] (ABNORMAL) PROTIME (12/10/2001 8:35 AM CDT) [facility] gist Method Time Signature Protime 31.5 (H) 12.7 - [facility] 16.3 sec Protime New Method Effective 4-01-02 H [facility] PLEASE NOTE CHANGE IN EXPECTED VALUES Coumadin Yes [facility] INR 2.4 [facility] Specimen Anatomical Collection Method Collection Time Receive d Time (Source) Location / / Volume Laterality 12/10/2001 8:35 AM 2 8:37 CDT AM CDT Deloris Chirinos MD LAB_1 Performing Organization Address [facility] Code Phon e Number [facility] Differential [employer] [phone] [facility] [address] [place] [phone] documented in this encounter Visit Diagnoses Not on filedocumented in this encounter Care Teams Chief Service Observer Relationship Specialty Start Date End Date Danielle Bender MD PCP - General 04/09/01 08/07/[address] [place] [address] documented as of this encounter
--- OUTSIDE RECORDS SUMMARY | 2022-01-29 17:55 | XMS_ITS | Encounter Summary ---
:1960 Author Organization [employer] Address [address] [place] [address] Care Team Providers Name Role Phone Olamide Rodney MD Primary Care Provider Encounter Details Date Type Department Care Team Description 09/02/2001 Orders Only Deloris Newman MD [address] [place], [place] [address] [place], [place] [id number] (Wo rk) Social History Tobacco Use Types Packs/Day Years Used Date Smoking Tobacco: Never Assessed Sex Assigned at Date Recorded Not on file documented as of this encounter Plan of Treatment Not on filedocumented as of this encounter Procedures Procedure Name Priority Date/Time Associated Comments Diagnosis COMPLETE BLOOD Routine 09/02/2001 8:40 AM Results for this COUNT-NO DIFF SET UP WORKER procedure are in the results section. FACTOR V LEIDEN Routine 09/02/2001 8:40 AM Result s for this SET UP WORKER procedure are i n the results section. HOMOCYSTEINE,PLASMA Routine 09/02/2001 8:40 AM Re sults for this SET UP WORKER procedure are i n the results section. CARDIOLIPIN AB, IGG & Routine 09/02/2001 8:40 AM Results for this IGM SET UP WORKER procedure are i n the results section. HGB A1C Routine 09/02/2001 8:40 AM Results f or this SET UP WORKER procedure are i n the results section. LD TOTAL (LDH) Routine 09/02/2001 8:40 AM Results for this SET UP WORKER procedure are i n the results section. GLUCOSE - FASTING > 8 Routine 09/02/2001 8:40 AM Results for this HRS FASTING SET UP WORKER procedure are i n the results section. ALKALINE PHOSPHATASE, Routine 09/02/2001 8:40 AM Results for this TOTAL SET UP WORKER procedure are i n the results section. PTT Routine 09/02/2001 8:40 AM Results f or this SET UP WORKER procedure are i n the results section. INR/PROTIME Routine 09/02/2001 8:40 AM Results f or this SET UP WORKER procedure are i n the results section. ESR Routine 09/02/2001 8:40 AM Results f or this SET UP WORKER procedure are i n the results section. DIFF IF Routine 09/02/2001 8:40 AM Results f or this SET UP WORKER procedure are i n the results section. documented in this encounter Results FACTOR V LEIDEN (09/02/2001 8:40 AM SET UP WORKER) Component Value Ref Test Analysis Performed At [facility] Range Method Time Signature Mutation SEE BELOW [facility] Mutation (NOTE) [facility] RESULT: POSITIVE FOR THE HETEROZYGOUS PRESENCE OF THE FACTOR V GENE R506Q MUTATION. INTERPRETATION: FROM ANALYSIS OF THIS SAMPLE, THE PATIENT HAS THE R506Q MUTATION IN ONE FACTOR V ALLELE AND IS THUS AT ELEVATED RISK FOR VENOUS THROMBOSIS. ??IN ADDITION, OTHER FAMILY MEMBERS MAY ALSO BE CARRIERS OF THE MUTATION AND SIMILARLY AT RISK (E.G. ONE PARENT IS AN OBLIGATE CARRIER AND SIBS PLUS CHILDREN HAVE 50% CARRIER RISKS). THUS GENETIC COUNSELING AND/OR FAMILIAL STUDIES MAY BE INDICATED. LABORATORY TESTING SUPERVISED AND RESULTS MONITORED BY ZEYNEP ARELLANO M.D., PH.D., FACMG, FAAP, HCLD. FACTOR V LEIDEN IS THE MOST COMMON CAUSE OF INHERITED THROMBOPHILIA, WITH APPROXIMATELY 3-8% OF INDIVIDUALS IN THE [place] AND [place] CARRYING ONE COPY OF THE MUTATION. ??THE MUTATION IS CAUSED BY A G>A BASE CHANGE AT CDNA POSITION 1691, RESULTING IN AN AMINO ACID CHANGE OF ARG TO GLN (R506Q). ??THE R506Q MUTATION LEADS TO RESISTANCE TO DEGRADATION OF THE FACTOR V PROTEIN BY ACTIVATED PROTEIN C (APC). ??INDIVIDUALS HETEROZYGOUS FOR THE MUTATION ARE AT AN INCREASED RISK OF THROMBOSIS, AND HOMOZYGOTES HAVE A RISK APPROXIMATELY 10-FOLD GREATER THAN HETEROZYGOTES. ??THE PRESENCE OF THE MUTATION IS DETERMINED BY AMPLIFICATION OF EXON 10 BY POLYMERASE CHAIN REACTION (PCR) FOLLOWED BY INDIVIDUAL HYBRIDIZATIONS WITH INTERROGATION OLIGONUCLEOTIDES SPECIFIC FOR THE MUTANT AND WILD-TYPE SEQUENCES. ??LIGHT PRODUCED BY A CHEMICAL REACTION ONLY IN THE PRESENCE OF A PERFECT MATCH BETWEEN THE PROBE AND SAMPLE IS MEASURED BY AN AUTOMATED LUMINOMETER. ??SINCE GENETIC VARIATION AND OTHER PROBLEMS CAN AFFECT THE ACCURACY OF DIRECT MUTATION TESTING, THE RESULTS SHOULD ALWAYS BE INTERPRETED IN LIGHT OF CLINICAL AND FAMILIAL DATA. THIS TEST IS PERFORMED PURSUANT TO A LICENSE AGREEMENT WITH [employer] THIS TEST WAS DEVELOPED AND ITS PERFORMANCE CHARACTERISTICS DETERMINED BY [facility]. IT HAS NOT BEEN CLEARED OR APPROVED BY THE [place] [employer]OD AND DRUG [employer]MIN[employer]RATION. THE FDA HAS DETERMINED THAT SUCH CLEARANCE OR APPROVAL IS NOT NECESSARY. PERFORMANCE CHARACTERISTICS REFER TO THE ANALYTICAL PERFORMANCE OF THE TEST. THIS TEST WAS PERFORMED AT: [facility] [address] [place], [place] ??[address] Comment Referred to [facility], [address] [place] [address] Specimen Anatomical Collection Method Collection Time Receive d Time (Source) Location / / Volume Laterality 09/02/2001 8:40 AM 2 8:41 SET UP WORKER AM SET UP WORKER Deloris Chirinos MD LAB_1 Performing Organization Address City/State/ZIP Code Phon e Number [facility] [phone] [address] CARDIOLIPIN AB, IGG & IGM (09/02/2001 8:40 AM SET UP WORKER) Component Value Ref Test Analysis Performed At [facility] gist Range Method Time Signature Cardiolipin Ab <20.0 GPL [facility] IgG Cardiolipin Ab Reference range: [facility] IgG <20 Cardiolipin <20.0 MPL [facility] Ab,IgM Cardiolipin Reference range: [facility] E[facility] Ab,IgM <20 Cardiolipin (NOTE) [facility] Ab,IgM ANTIBODY TO CARDIOLIPIN IS MOST COMMONLY ASSOCIATED WITH CEREBROVASCULAR ACCIDENT, MYOCARDIAL INFARCTION, DEEP VEIN THROMBOSIS AND IDIOPATHIC . ??THESE FEATURES ARE REFERRED TO THE ANTI-PHOSPHOLIPID SYNDROME, AND MAY ALSO BE ASSOCIATED WITH ANTI-LUPUS ANTICOAGULANT ANTIBODIES. Comment Referred to [facility], [address] [place] [address] Specimen Anatomical Collection Method Collection Time Receive d Time (Source) Location / / Volume Laterality 09/02/2001 8:40 AM 2 8:41 SET UP WORKER AM SET UP WORKER Deloris Chirinos MD LAB_1 Performing Organization Address City/[facility]/ZIP Code Phon e Number [facility] [phone] [facility] [address] [place] [phone] HOMOCYSTEINE,PLASMA (09/02/2001 8:40 AM SET UP WORKER) [facility] Method Time Signature Homocysteine, 8.6 MICRO [facility] Plasma MOL/L Homocysteine, Reference [facility] Plasma range: <10.4 Comment Referred to [facility], [address] [place] [address] Specimen Anatomical Collection Method Collection Time Receive d Time (Source) Location / / Volume Laterality 09/02/2001 8:40 AM 2 8:41 SET UP WORKER AM SET UP WORKER Deloris Chirinos MD LAB_1 Performing Organization Address City/[facility] Code Phon e Number [facility] [phone] [facility] [address] [place] [phone] (ABNORMAL) ESR (09/02/2001 8:40 AM SET UP WORKER) athologist Signature ESR 34 (H) 0 - 20 [facility] mm/hr Specimen Anatomical Collection Method Collection Time Receive d Time (Source) Location / / Volume Laterality 09/02/2001 8:40 AM 2 8:41 SET UP WORKER AM SET UP WORKER Deloris Chirinos MD LAB_1 Performing Organization Address [facility] Phon e Number [facility] [phone] [facility] [address] [place] [phone] DIFF IF (09/02/2001 8:40 AM SET UP WORKER) [facility] Method Time Signature Diff If Diff Not [facility] Indicated Specimen Anatomical Collection Method Collection Time Receive d Time (Source) Location / / Volume Laterality 09/02/2001 8:40 AM 2 8:41 SET UP WORKER AM SET UP WORKER Deloris Chirinos MD LAB_1 Performing Organization Address [facility] Phon e Number [facility] [phone] [address] HGB A1C (09/02/2001 8:40 AM SET UP WORKER) athologist Signature Hgb A1c 5.9 4.3 - 6.1 % [facility] Specimen Anatomical Collection Method Collection Time Receive d Time (Source) Location / / Volume Laterality 09/02/2001 8:40 AM 2 8:41 SET UP WORKER AM SET UP WORKER Deloris Chirinos MD LAB_1 Performing Organization Address [facility] Phon e Number [facility] [phone] [phone] LD TOTAL(LDH) (09/02/2001 8:40 AM SET UP WORKER) athologist Signature LD 165 <194 U/L [facility] Specimen Anatomical Collection Method Collection Time Receive d Time (Source) Location / / Volume Laterality 09/02/2001 8:40 AM 2 8:41 SET UP WORKER AM SET UP WORKER Deloris Chirinos MD LAB_1 Performing Organization Address [facility] Code Phon e Number [facility] [phone] [address] GLUCOSE - FASTING > 8 HRS FASTING (09/02/2001 8:40 AM SET UP WORKER) athologist Signature Glucose 102 70 - 110 [facility] mg/dl Hours Fasting 12 hours [facility] Specimen Anatomical Collection Method Collection Time Receive d Time (Source) Location / / Volume Laterality 09/02/2001 8:40 AM 2 8:41 SET UP WORKER AM SET UP WORKER Deloris Chirinos MD LAB_1 Performing Organization Address [facility] Phon e Number [facility] [phone] [phone] ALK P'TASE, TOTAL (09/02/2001 8:40 AM SET UP WORKER) Analysis Performed At Patho logist Time Signature Alkaline 74 31 - 115 [facility] Phosphatase U/L Specimen Anatomical Collection Method Collection Time Receive d Time (Source) Location / / Volume Laterality 09/02/2001 8:40 AM 2 8:41 SET UP WORKER AM SET UP WORKER Deloris Chirinos MD LAB_1 Performing Organization Address [facility] Code Phon e Number [facility] [phone] [facility] [address] [place] [phone] (ABNORMAL) PTT (09/02/2001 8:40 AM SET UP WORKER) P athologist Signature PTT 38.8 (H) 23.2 - 35.2 [facility] sec Heparin No [facility] Specimen Anatomical Collection Method Collection Time Receive d Time (Source) Location / / Volume Laterality 09/02/2001 8:40 AM 2 8:41 SET UP WORKER AM SET UP WORKER Deloris Chirinos MD LAB_1 Performing Organization Address [facility] Code Phon e Number [facility] [phone] [facility] [address] [place] [phone] (ABNORMAL) PROTIME (09/02/2001 8:40 AM SET UP WORKER) P athologist Signature Protime 22.2 (H) 10.2 - 13.8 [facility] sec Coumadin Yes [facility] INR 1.9 [facility] Specimen Anatomical Collection Method Collection Time Receive d Time (Source) Location / / Volume Laterality 09/02/2001 8:40 AM 2 8:41 SET UP WORKER AM SET UP WORKER Deloris Chirinos MD LAB_1 Performing Organization Address [facility]/ZIP Code Phon e Number [facility] [phone] [phone] (ABNORMAL) HEMOGRAM/PLTS (09/02/2001 8:40 AM SET UP WORKER) P athologist Signature WBC 6.8 3.6 - 11.0 [facility] k/ul RBC 4.63 4.0 - 5.2 [facility] M/ul Hemoglobin 13.3 12.0 - [facility] 16.0 g/dl HCT 39.3 36.0 - [facility] 46.0 % MCV 84.9 80 - 100 [facility] fl MCH 28.7 26 - 34 pg [facility] MCHC 33.7 32 - 36 % [facility] RDW 16.0 (H) 11.5 - [facility] 14.5 % Platelets 352 150 - 450 [facility] k/ul Specimen Anatomical Collection Method Collection Time Receive d Time (Source) Location / / Volume Laterality 09/02/2001 8:40 AM 2 8:41 SET UP WORKER AM SET UP WORKER Deloris Chirinos MD LAB_1 Performing Organization Address City/State/ZIP Code Phon e Number [facility] [phone] [facility] [address] [place] [phone] documented in this encounter Visit Diagnoses Not on filedocumented in this encounter Care Teams Ranch Hand Supervisor Relationship Specialty Start Date End Date Olamide Rodney MD PCP - General 09/25/10 01/11/21 [address] [place] [address] documented as of this encounter
--- OUTSIDE RECORDS SUMMARY | 2022-01-29 17:55 | XMS_ITS | Encounter Summary ---
:1960 Author Organization [facility] Address [address] [place] [address] Care Team Providers Name Role Phone Olamide Rodney MD Primary Care Provider Encounter Details Date Type Department Care Team Description 06/23/2001 Orders Only Deloris Newman MD [address] [place], [place] [phone] [place], [place] [phone] (Wo rk) Social History Tobacco Use Types Packs/Day Years Used Date Smoking Tobacco: Never Assessed Sex Assigned at Date Recorded Not on file documented as of this encounter Plan of Treatment Not on filedocumented as of this encounter Procedures Procedure Name Priority Date/Time Associated Diagnosis Comme nts INR/PROTIME Waiting 06/23/2001 9:40 AM Results f or this NEWSPAPER PEDDLER procedure are i n the results section . documented in this encounter Results PROTIME (06/23/2001 9:40 AM NEWSPAPER PEDDLER) [facility] Method Time Signature Protime 11.9 8.0 [facility] 12.5 sec Protime Performed at [facility] INR 1.28 [facility] INR For stable oral anticoagulants, the INR [facility] therapeutic range is 2.0-4.5. Performed at [facility] Specimen Anatomical Collection Method Collection Time Receive d Time (Source) Location / / Volume Laterality 06/23/2001 9:40 AM 01/01/200 2 9:41 NEWSPAPER PEDDLER AM NEWSPAPER PEDDLER Deloris Chirinos MD LAB_1 Performing Organization Address City/State/ZIP Code Phon e Number [facility] [phone] [phone] documented in this encounter Visit Diagnoses Not on filedocumented in this encounter Care Teams Cloth Neutralizer Relationship Specialty Start Date End Date Olamide Rodney MD PCP - General 09/25/10 01/11/21 [address] [place], [place] [phone] documented as of this encounter
--- OUTSIDE RECORDS SUMMARY | 2022-01-29 17:55 | XMS_ITS | Encounter Summary ---
:1960 Author Organization [employer] Address [address] [place] [address] Care Team Providers Name Role Phone Danielle Bender MD Primary Care Provider Encounter Details Date Type Department Care Team Description 06/24/[address] [facility] [address] [facility] VENOUS THROMBOSIS [address] [place] [address] Social History Tobacco Use Types Packs/Day Years Used Date Smoking Tobacco: Never Assessed Sex Assigned at Date Recorded Not on file documented as of this encounter Plan of Treatment Not on filedocumented as of this encounter Visit Diagnoses Diagnosis Other acute embolism veins Acute venous embolism and thrombosis of other specified veins documented in this encounter Care Teams Juvenile Detention Officer Relationship Specialty Start Date End Date Danielle Bender MD PCP - General 04/09/01 08/07/[address] [place] [address] documented as of this encounter
--- OUTSIDE RECORDS SUMMARY | 2022-01-29 17:55 | XMS_ITS | Encounter Summary ---
:1960 Author Organization [employer] Address [address] [place] [address] Care Team Providers Name Role Phone Danielle Bender MD Primary Care Provider Encounter Details Date Type Department Care Team Description 07/01/2001 Office Visit [place] [address] DIABETES UNCOMPL ADULT- TYPE II; Internal Medicine [facility]OS [address] [place] [address] Social History Tobacco Use Types Packs/Day Years Used Date Smoking Tobacco: Never Assessed Sex Assigned at Date Recorded Not on file documented as of this encounter Progress Notes Tania Soriano - 07/01/2001 12:00 AM CSTREFERRING PROVIDER: Dr. Chirinos. PROBLEM: Nutrition consultation. S: The patient states that she was diagnosed with diabetes about three weeks ago. The patient is checking her blood sugars three to four times a day. Her fasting blood sugar this morning was 85. The patient states that she walks some at work but otherwise is fairly physically inactive. She does plan on starting a weight lifting program at a local gym. Medications include Zoloft, Coumadin, no OHA. O: Vital signs: Height 5 feet 5.25 inches, weight 224 pounds. The patient is an overweight 40-year-old female with newly diagnosed type 2 diabetes and a medical history that includes depression, asthma, and DVT. Labs: Total cholesterol 197, HDL 43, LDL 131, triglycerides 117 (May 2001). Fasting blood glucose 142 (May 2001). A1c 7.0 (May 2001). A: Dietary recall indicates that the patient usually skips breakfast and her first meal of the day is lunch at work. She states that she usually has Lean Cuisine or a sandwich. She eats dinner at home and cooks for herself. Dinner is often pasta (the patient states that she loves pasta) or macaroni and cheese. She drinks water with dinner. She usually has an evening snack and that is usually cheese, or she might have tomato soup. She was in the habit of snacking midafternoon at work but states that she is no longer doing so. She also states that she has discontinued drinking regular sugared pop. She used to drink two to three cans or more a day. She states she is making an effort to avoid sweets over the past three weeks. The Monitoring Guidelines For Adults With Diabetes handout was given to the patient and her recent labs recorded on this. The effect of carbohydrates on blood sugars was explained to the patient. The patient was told she could have two to four carbohydrate choices per meal and one to two carbohydratechoices per snack as needed. I taught the patient how to read food labels for total carbohydrates. The patient was given a handout to assist her in determining portion sizes. The patient was encouraged to get 30 minutes of moderate-intensity exercise most days of the week. P: The patient was encouraged to attend the [employer] diabetes class series, and the 2001 class flyer was given to the patient. Also recommended a return visit in four to six weeks. She has my telephone number. I spent a total of 60 minutes with this patient. IN SUMMARY: Nutrition consultation. cc: MD Tania Black, SAFIA,LD MAKER documented in this encounter Plan of Treatment Not on filedocumented as of this encounter Visit Diagnoses Diagnosis Type II or unspecified type diabetes rod litus without mention of complication, not stated as uncontrolled Obesity, unspecified ([facility]) Obesity, unspecified documented in this encounter Care Teams Linesperson Relationship Specialty Start Date End Date Danielle Bender MD PCP - General 04/09/01 08/07/[address] [place] [address] documented as of this encounter
--- OUTSIDE RECORDS SUMMARY | 2022-01-29 17:55 | XMS_ITS | Encounter Summary ---
:1960 Author Organization [employer] Address [address] [place] [address] Care Team Providers Name Role Phone Danielle Bender MD Primary Care Provider Encounter Details Date Type Department Care Team Description 09/09/2001 Office Visit [place] [facility] LUDMILA BETES UNCOMPL ADULT-TYPE II; Program COUNSELING, DIETARY [address] [place] [address] Social History Tobacco Use Types Packs/Day Years [...] counseling documented in this encounter Care Teams Sandwich Machine Operator Relationship Specialty Start Date End Date Danielle Bender MD PCP - General 04/09/01 08/07/[address] [place] [address] documented as of this encounter
--- OUTSIDE RECORDS SUMMARY | 2022-01-29 17:55 | XMS_ITS | Encounter Summary ---
:1960 Author Organization [employer] Address [address] [place] [address] Care Team Providers Name Role Phone Danielle Bender MD Primary Care Provider Encounter Details Date Type Department Care Team Description 06/23/2001 [facility] VENOUS THROMBOSIS [address] [place] [address] Social History Tobacco Use Types Packs/Day Years Used Date Smoking Tobacco: Never Assessed Sex Assigned at Date Recorded Not on file documented as of this encounter Plan of Treatment Not on filedocumented as of this encounter Visit Diagnoses Diagnosis Other acute embolism veins Acute venous embolism and thrombosis of other specified veins documented in this encounter Care Teams Structural Design Engineer Relationship Specialty Start Date End Date Danielle Bender MD PCP - General 04/09/01 08/07/[address] [place] [address] documented as of this encounter
--- OUTSIDE RECORDS SUMMARY | 2022-01-29 17:55 | XMS_ITS | Encounter Summary ---
:1960 Author Organization [facility] Address [address] [place] [address] Care Team Providers Name Role Phone Danielle Bender MD Primary Care Provider Encounter Details Date Type Department Care Team Description 10/21/2001 Orders Only Deloris Chirinos MD [address] [place] [phone] (Wo rk) Social History Tobacco Use Types Packs/Day Years Used Date Smoking Tobacco: Never Assessed Sex Assigned at Date Recorded Not on file documented as of this encounter Plan of Treatment Not on filedocumented as of this encounter Procedures Procedure Name Priority Date/Time Associated Diagnosis Comme nts INR/PROTIME Routine 10/21/2001 8:37 AM Results f or this CDT procedure are i n the results section . documented in this encounter Results (ABNORMAL) PROTIME (10/21/2001 8:37 AM CDT) [facility] gist Method Time Signature Protime 22.3 (H) 12.7 - [facility] 16.3 sec Protime New Method Effective 4-01-02 [facility] PLEASE NOTE CHANGE IN EXPECTED VALUES Coumadin Yes [facility] INR 1.6 [facility] Specimen Anatomical Collection Method Collection Time Receive d Time (Source) Location / / Volume Laterality 10/21/2001 8:37 AM 2 8:38 CDT AM CDT Deloris Chirinos MD LAB_1 Performing Organization Address City/State/ZIP Code Phon e Number [facility] [phone] [facility] [address] [place] [phone] documented in this encounter Visit Diagnoses Not on filedocumented in this encounter Care Teams Photocomposing Keyboard Operator Relationship Specialty Start Date End Date Danielle Bender MD PCP - General 04/09/01 08/07/[address] [place] [address] documented as of this encounter
--- OUTSIDE RECORDS SUMMARY | 2022-01-29 17:55 | XMS_ITS | Encounter Summary ---
:1960 Author Organization [employer] Address [address] [place] [address] Care Team Providers Name Role Phone Danielle Bender MD Primary Care Provider Encounter Details Date Type Department Care Team Description 06/25/2001 Office Visit [place] THRO MBOPHLEBITIS LEG NOS Department [address] [place] [address] Social History Tobacco Use Types Packs/Day Years Used Date Smoking Tobacco: Never Assessed Sex Assigned at Date Recorded Not on file documented as of this encounter Plan of Treatment Not on filedocumented as of this encounter Visit Diagnoses Diagnosis Phlebitis and thrombophlebitis of lower extremities, unspecified documented in this encounter Care Teams Accounting Methods Analyst Relationship Specialty Start Date End Date Danielle Bender MD PCP - General 04/09/01 08/07/10 [address] [facility] [address] [place] [address] documented as of this encounter
--- OUTSIDE RECORDS SUMMARY | 2022-01-29 17:55 | XMS_ITS | Encounter Summary ---
:1960 Author Organization [facility] Address [address] [place] [address] Care Team Providers Name Role Phone Olamide Rodney MD Primary Care Provider Encounter Details Date Type Department Care Team Description 06/22/2001 Orders Only Deloris Newman MD [address] [place], [place] [phone] [place], [place] [id number] (Wo rk) Social History Tobacco Use Types Packs/Day Years Used Date Smoking Tobacco: Never Assessed Sex Assigned at Date Recorded Not on file documented as of this encounter Plan of Treatment Not on filedocumented as of this encounter Procedures Procedure Name Priority Date/Time Associated Diagnosis Comme nts INR/PROTIME Routine 06/22/2001 9:28 AM Results f or this MOTOR BRAKEMAN procedure are i n the results section . documented in this encounter Results (ABNORMAL) PROTIME (06/22/2001 9:28 AM MOTOR BRAKEMAN) P athologist Signature Protime 14.3 (H) 10.2 - 13.8 [facility] sec Coumadin Yes [facility] INR 1.2 [facility] Specimen Anatomical Collection Method Collection Time Receive d Time (Source) Location / / Volume Laterality 06/22/2001 9:28 AM 1 9:54 MOTOR BRAKEMAN AM MOTOR BRAKEMAN Deloris Chirinos MD LAB_1 Performing Organization Address City/State/ZIP Code Phon e Number [facility] [phone] [address] documented in this encounter Visit Diagnoses Not on filedocumented in this encounter Care Teams Lean Process Deployment Consultant Relationship Specialty Start Date End Date Olamide Rodney MD PCP - General 09/25/10 01/11/21 [address] [place], [place] [phone] documented as of this encounter
--- OUTSIDE RECORDS SUMMARY | 2022-01-29 17:55 | XMS_ITS | Encounter Summary ---
:1960 Author Organization [facility] Address [address] [place] [address] Care Team Providers Name Role Phone Olamide Rodney MD Primary Care Provider Encounter Details Date Type Department Care Team Description 07/10/2001 Orders Only Deloris Newman MD [address] [place], [place] [phone] [place], [place] [phone] (Wo rk) Social History Tobacco Use Types Packs/Day Years Used Date Smoking Tobacco: Never Assessed Sex Assigned at Date Recorded Not on file documented as of this encounter Plan of Treatment Not on filedocumented as of this encounter Procedures Procedure Name Priority Date/Time Associated Diagnosis Comme nts INR/PROTIME Routine 07/10/2001 10:22 AM Results for this WELLNESS MANAGER procedure are i n the results section . documented in this encounter Results (ABNORMAL) PROTIME (07/10/2001 10:22 AM WELLNESS MANAGER) P athologist Signature Protime 42.8 (H) 10.2 - 13.8 [facility] sec Coumadin Yes [facility] INR 3.7 [facility] Specimen Anatomical Collection Method Collection Time Receive d Time (Source) Location / / Volume Laterality 07/10/2001 10:22 07/10/2001 AM WELLNESS MANAGER 10:23 AM WELLNESS MANAGER Deloris Chirinos MD LAB_1 Performing Organization Address City/State/ZIP Code Phon e Number [facility] [phone] [address] documented in this encounter Visit Diagnoses Not on filedocumented in this encounter Care Teams Boxing And Pressing Supervisor Relationship Specialty Start Date End Date Olamide Rodney MD PCP - General 09/25/10 01/11/21 [address] [place], [place] [address] documented as of this encounter
--- OUTSIDE RECORDS SUMMARY | 2022-01-29 17:55 | XMS_ITS | Encounter Summary ---
:1960 Author Organization [facility] Address [address] [place] [address] Care Team Providers Name Role Phone Danielle Bender MD Primary Care Provider Encounter Details Date Type Department Care Team Description 09/14/2001 Orders Only Deloris Chirinos MD [address] [place] [phone] (Wo rk) Social History Tobacco Use Types Packs/Day Years Used Date Smoking Tobacco: Never Assessed Sex Assigned at Date Recorded Not on file documented as of this encounter Plan of Treatment Not on filedocumented as of this encounter Procedures Procedure Name Priority Date/Time Associated Diagnosis Comme nts INR/PROTIME Routine 09/14/2001 11:32 AM Results for this STOCK SORTER procedure are i n the results section . documented in this encounter Results (ABNORMAL) PROTIME (09/14/2001 11:32 AM STOCK SORTER) P athologist Signature Protime 24.1 (H) 10.2 - 13.8 [facility] sec Coumadin Yes [facility] INR 2.1 [facility] Specimen Anatomical Collection Method Collection Time Receive d Time (Source) Location / / Volume Laterality 09/14/2001 11:32 09/14/2001 AM STOCK SORTER 11:50 AM STOCK SORTER Deloris Chirinos MD LAB_1 Performing Organization Address City/State/ZIP Code Phon e Number [facility] [phone] [facility] [address] [phone] documented in this encounter Visit Diagnoses Not on filedocumented in this encounter Care Teams Deli Manager Relationship Specialty Start Date End Date Danielle Bender MD PCP - General 04/09/01 08/07/[address] [place] [address] documented as of this encounter
--- OUTSIDE RECORDS SUMMARY | 2022-01-29 17:55 | XMS_ITS | Encounter Summary ---
:1960 Author Organization [facility] Address [address] [place] [address] Care Team Providers Name Role Phone Danielle Bender MD Primary Care Provider Encounter Details Date Type Department Care Team Description 11/23/2001 Orders Only Deloris Chirinos MD [address] [place] [address] (Wo rk) Social History Tobacco Use Types Packs/Day Years Used Date Smoking Tobacco: Never Assessed Sex Assigned at Date Recorded Not on file documented as of this encounter Plan of Treatment Not on filedocumented as of this encounter Procedures Procedure Name Priority Date/Time Associated Diagnosis Comme nts INR/PROTIME Routine 11/23/2001 8:17 AM Results f or this CDT procedure are i n the results section . documented in this encounter Results (ABNORMAL) PROTIME (11/23/2001 8:17 AM CDT) [facility] gist Method Time Signature Protime 24.4 (H) 12.7 - [facility] 16.3 sec Protime New Method Effective 4-01-02 [facility] PLEASE NOTE CHANGE IN EXPECTED VALUES Coumadin Yes [facility] INR 1.8 [facility] Specimen Anatomical Collection Method Collection Time Receive d Time (Source) Location / / Volume Laterality 11/23/2001 8:17 AM 2 8:18 CDT AM CDT Deloris Chirinos MD LAB_1 Performing Organization Address City/State/ZIP Code Phon e Number [facility] [phone] [facility] [address] [place] [address] documented in this encounter Visit Diagnoses Not on filedocumented in this encounter Care Teams Harbor Master Relationship Specialty Start Date End Date Danielle Bender MD PCP - General 04/09/01 08/07/[address] [place] [address] documented as of this encounter
--- OUTSIDE RECORDS SUMMARY | 2022-01-29 17:55 | XMS_ITS | Encounter Summary ---
:1960 Author Organization [facility] Address [address] [place] [address] Care Team Providers Name Role Phone Danielle Bender MD Primary Care Provider Encounter Details Date Type Department Care Team Description 06/22/2001 Office Visit [facility] MBOPHLEBITIS [facility]G [facility]OS Department [address] [place] [address] Social History Tobacco Use Types Packs/Day Years Used Date Smoking Tobacco: Never Assessed Sex Assigned at Date Recorded Not on file documented as of this encounter Plan of Treatment Not on filedocumented as of this encounter Visit Diagnoses Diagnosis Phlebitis and thrombophlebitis of lower extremities, unspecified documented in this encounter Care Teams Regional Sales Associate Relationship Specialty Start Date End Date Danielle Bender MD PCP - General 04/09/01 08/07/10 [address] [facility] [address] [place] [address] documented as of this encounter
--- OUTSIDE RECORDS SUMMARY | 2022-01-29 17:55 | XMS_ITS | Encounter Summary ---
:1960 Author Organization [facility] Address [address] [place] [address] Care Team Providers Name Role Phone Danielle Bender MD Primary Care Provider Encounter Details Date Type Department Care Team Description 06/24/2001 Office Visit [facility] Deloris Chirinos, VENOUS THROMBOSIS NEC Internal Medicine [address] [place] [address] [address] [place] [address] [phone] Social History Tobacco Use Types Packs/Day Years Used Date Smoking Tobacco: Never Assessed Sex Assigned at Date Recorded Not on file documented as of this encounter Progress Notes Deloris Chirinos - 06/24/2001 12:00 AM CSTS: The patient is a 40-year-old woman who presents today for follow up today of a new right deep venous thrombosis diagnosed last Friday in Urgent Care. The patient had had some aching in her right posterior knee area and some mild swelling in that area. The patient is on Lovenox and Coumadin currently. She has been on Lo-Ovral control pills. No family history of blood clots. The patient has not had a blood clot in the past. She did have a condition of some phlebitis diagnosed in the right posterior thigh; that was in June of 2000. O: Her temperature is 99.1. Pulse 80. Blood pressure 128/84. This is an obese middle aged woman who appears well. I do not see any swelling in the right leg. She has some mild tenderness in the right posterior popliteal area. Otherwise circulation motion sensation is intact. On exam of the abdomen she has some localized bleeding and ecchymosis around the sites of her Lovenox shots. Her last INR done yesterday was 1.28. A: Deep venous thrombosis right lower extremity with improving discomfort in that area. She continues on Lovenox and Coumadin. P: The patient had blood work done today to recheck her INR and we will notify her of the results. The patient is instructed to stop the Lo-Ovral control pills until further notice. The patient is to elevate her right leg when she is sitting. She is to continue on the Lovenox and Coumadin, pending today's INR results. The patient will see me in three weeks for recheck. We will add to patient's blood tests some screening tests for blood clotting disorders, including a factor 5 Liden blood test, antiphospholipid and cardiolipin antibodies, homocysteine level and protein EMISSIONS REPAIR TECHNICIAN. IN SUMMARY: RIGHT LEG DEEP VENOUS THROMBOSIS cc: ITY MANAGEMENT NURSE documented in this encounter Plan of Treatment Not on filedocumented as of this encounter Visit Diagnoses Diagnosis Other acute embolism veins Acute venous embolism and thrombosis of other specified veins documented in this encounter Care Teams Circulation Assistant Relationship Specialty Start Date End Date Danielle Bender MD PCP - General 04/09/01 08/07/[address] [place] [address] documented as of this encounter
--- OUTSIDE RECORDS SUMMARY | 2022-01-29 17:56 | XMS_ITS | Encounter Summary ---
:1960 Author Organization [facility] Address [address] [place] [address] Care Team Providers Name Role Phone Danielle Bender MD Primary Care Provider Encounter Details Date Type Department Care Team Description 06/11/2001 Office Visit [place] KennedyMarilia hernandez DIABETES UNCOMPL ADULT-TYPE II; Diabetes [facility] OTHER SPECIFIED [address] [place] [address] [phone] Social History Tobacco Use Types Packs/Day Years Used Date Smoking Tobacco: Never Assessed Sex Assigned at Date Recorded Not on file documented as of this encounter Plan of Treatment Not on filedocumented as of this encounter Visit Diagnoses Diagnosis Type II or unspecified type diabetes rod litus without mention of complication, not stated as uncontrolled Other specified counseling documented in this encounter Care Teams Rayon Coner Relationship Specialty Start Date End Date Danielle Bender MD PCP - General 04/09/01 08/07/[address] [place] [address] documented as of this encounter
--- OUTSIDE RECORDS SUMMARY | 2022-01-29 17:56 | XMS_ITS | Encounter Summary ---
:1960 Author Organization [facility] Address [address] [place] [address] Care Team Providers Name Role Phone Found, No Pcp Primary Care Provider Unavailable Encounter Details Date Type Department Care Team Description 05/29/1998 Orders Only Corinna Sylvester MD [address] [place] [phone] (Wo rk) Social History Tobacco Use Types Packs/Day Years Used Date Smoking Tobacco: Never Assessed Sex Assigned at Date Recorded Not on file documented as of this encounter Plan of Treatment Not on filedocumented as of this encounter Visit Diagnoses Not on filedocumented in this encounter Care Teams Stage Settings Painter Relationship Specialty Start Date End Date Found, No PcpMD PCP - General 08/27/21 [address] [place] [address] documented as of this encounter
--- OUTSIDE RECORDS SUMMARY | 2022-01-29 17:56 | XMS_ITS | Encounter Summary ---
:1960 Author Organization [facility] Address [address] [place] [address] Care Team Providers Name Role Phone Danielle Bender MD Primary Care Provider Encounter Details Date Type Department Care Team Description 06/21/[address] [facility] [address] [facility] VENOUS THROMBOSIS NEC [address] [place] [address] Social History Tobacco Use Types Packs/Day Years Used Date Smoking Tobacco: Never Assessed Sex Assigned at Date Recorded Not on file documented as of this encounter Plan of Treatment Not on filedocumented as of this encounter Visit Diagnoses Diagnosis Other acute embolism veins Acute venous embolism and thrombosis of other specified veins documented in this encounter Care Teams Filter Plant Supervisor Relationship Specialty Start Date End Date Danielle Bender MD PCP - General 04/09/01 08/07/[address] [place] [address] documented as of this encounter
--- OUTSIDE RECORDS SUMMARY | 2022-01-29 17:56 | XMS_ITS | Encounter Summary ---
:1960 Author Organization [facility] Address [address] [place] [address] Care Team Providers Name Role Phone Danielle Bender MD Primary Care Provider Encounter Details Date Type Department Care Team Description 06/21/[address] [facility] [address] [facility] VENOUS THROMBOSIS NEC; [address] [place] [address] Social History Tobacco Use Types Packs/Day Years Used Date Smoking Tobacco: Never Assessed Sex Assigned at Date Recorded Not on file documented as of this encounter Plan of Treatment Not on filedocumented as of this encounter Visit Diagnoses Diagnosis Other acute embolism veins Acute venous embolism and thrombosis of other specified veins Laboratory examination documented in this encounter Care Teams Framing Mill Supervisor Relationship Specialty Start Date End Date Danielle Bender MD PCP - General 04/09/01 08/07/[address] [place] [address] documented as of this encounter
--- OUTSIDE RECORDS SUMMARY | 2022-01-29 17:56 | XMS_ITS | Encounter Summary ---
:1960 Author Organization [facility] Address [address] [place] [address] Care Team Providers Name Role Phone Jailene Cho MD Primary Care Provider Unavailable Encounter Details Date Type Department Care Team Description 03/27/1999 Office Visit [facility] Deloris Chirinos VACCIN E FOR INFLUENZA patient access director [address] [place] [phone] Social History Tobacco Use Types Packs/Day Years Used Date Smoking Tobacco: Never Assessed Sex Assigned at Date Recorded Not on file documented as of this encounter Plan of Treatment Not on filedocumented as of this encounter Visit Diagnoses Diagnosis VACCINE FOR INFLUENZA documented in this encounter Care Teams Signal Fitter Relationship Specialty Start Date End Date Jailene Cho MD PCP - General 01/02/1999 documented as of this encounter
--- OUTSIDE RECORDS SUMMARY | 2022-01-29 17:56 | XMS_ITS | Encounter Summary ---
:1960 Author Organization [facility] Address [address] [place] [address] Care Team Providers Name Role Phone Jailene Cho MD Primary Care Provider Unavailable Reason for Visit Reason Comments ROUTINE HEALTH MAINTENANCE VIA INTERFACE Encounter Details Date Type Department Care Team Description 02/20/1999 Office Visit [facility] Jailene Cho GYNECOLOG IC EXAMINATION; Internal Medicine MD [facility]ITY NOS; [address] [facility] [address] ASTHMA [place] [address] Social History Tobacco Use Types Packs/Day Years Used Date Smoking Tobacco: Never Assessed Sex Assigned at Date Recorded Not on file documented as of this encounter Progress Notes Jailene Cho - 02/20/1999 12:00 AM CDTS: Paty is a 36 -year-old white female seen for a routine health maintenance. PAST MEDICAL HISTORY: Mild asthma and depression in the past, currently quiescent. 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 FAMILY HISTORY: Colon cancer at age 62 and a brother with hypothyroidism. She has no particular health concerns except she would like to be checked for thyroid and diabetes. She states she plans to go to [facility] and is not interested in weight reducing medical aids at this point. O: Morbidly obese, in no acute distress. Weight is 308, height is 5'5 . HEENT: Unremarkable. Neck without jugular venous distention, bruits or thyromegaly. Chest is clear to P and A. Heart is regular rate and rhythm without murmurs, rubs or gallops. Abdomen is benign. Extremities are without edema. Back is straight without costovertebral angle tenderness. Rectal is without masses up to 8 centimeters. Stool is heme negative. Vagina is rugous. Portion if hymen is still intact. Cervix and adnexa are non-tender. A: Routine health maintenance. Morbid obesity but no health sequela at current time. Mild asthma under fair control. P: Have recommended that we check complete blood count, urinalysis, TSH, glucose and mammogram and follow-up in 1 year. cc: documented in this encounter Plan of Treatment Not on filedocumented as of this encounter Visit Diagnoses Diagnosis Gynecological examination Obesity, unspecified ([facility]) Obesity, unspecified Unspecified asthma(493.90) ([facility]) Unspecified asthma documented in this encounter Care Teams Sledger Relationship Specialty Start Date End Date Jailene Cho MD PCP - General 01/02/1999 documented as of this encounter
--- OUTSIDE RECORDS SUMMARY | 2022-01-29 17:56 | XMS_ITS | Encounter Summary ---
:1960 Author Organization [employer] Address [address] [place] [address] Care Team Providers Name Role Phone Jailene Cho MD Primary Care Provider Unavailable Encounter Details Date Type Department Care Team Description 09/22/1997 Office Visit [facility] ELENITA Mcneal ANGELIC INT DISORDER, Practice FOSTER Mendoza, UNSPEC [address] [place] [address] Social History Tobacco Use Types Packs/Day Years Used Date Smoking Tobacco: Never Assessed Sex Assigned at Date Recorded Not on file documented as of this encounter Progress Notes Kelly Mcneal - 09/22/1997 12:00 AM CSTS: 36-year-old who has had a long history of TMJ for about over ten years. Lately now every time she opens her jaw she has a lot of crepitus and occasionally her jaw gets stuck open, and she has had pain off and on. She has been through the biofeedback and stress reduction, but hasn't used nighttime appliance yet. She chews things such as caramels and that seems to be worse, but she doesn't chew gum. She just finished Zoloft on Friday. O: She has severe crepitus of both TMJ joints, and some tenderness. Jaw is not in alignment when she opens her mouth, and she does not have a bite when she closes her mouth. A: Severe TMJ. P: Referral to TMJ clinic. Handout given. cc: END TECHNICIAN documented in this encounter Plan of Treatment Not on filedocumented as of this encounter Visit Diagnoses Diagnosis Temporomandibular joint disorders, unspe cified documented in this encounter Care Teams Line Locator Relationship Specialty Start Date End Date Jailene Cho MD PCP - General 01/02/1999 documented as of this encounter
--- OUTSIDE RECORDS SUMMARY | 2022-01-29 17:56 | XMS_ITS | Encounter Summary ---
:1960 Author Organization [employer] Address [address] [place] [address] Care Team Providers Name Role Phone Danielle Bender MD Primary Care Provider Encounter Details Date Type Department Care Team Description 06/19/[address] [facility] THROMBOPHLEBITIS LEG NOS; [address] [place] [address] Social History Tobacco Use Types Packs/Day Years Used Date Smoking Tobacco: Never Assessed Sex Assigned at Date Recorded Not on file documented as of this encounter Progress Notes Brien Sylvester P - 06/19/2001 12:00 AM CSTS: This is a 40-year-old who comes in with 24 hours of pain, which felt like a muscle pain, in her right calf. She said overnight that this calf got quite tense and she felt like there was a lot of swelling on the calf, itself. She went to work today, did fairly well, feels better after warm packing but get pretty stiff when she sits for a while but loosens up a bit after she walks. She says that it feels like a knot in there and she comes in concerned about the possibility of deep venous thrombosis. Interestingly, I think I personally had seen her a few months ago with some sort of a phlebitis of the same leg and in that case it was a superficial thrombophlebitis presumably of the long saphenus. Patient, as an aside, says that she often gets or at least one time it happened when she was trying to give blood that her blood had clotted awfully fast in the tube and she thought that she would mention that. Patient has a HISTORY of asthma. She has a HISTORY of recently diagnosed diabetes and is checking her blood sugars pretty often right now. O: PHYSICAL EXAMINATION: Temperature of 99, pulse 84, blood pressure 130/80. This woman weighs 319 pounds. Accu-Chek right now is 109. Examination, obese but pleasant healthy appearing lady who says she does some weight lifting. Examination of both of her LOWER EXTREMITIES, shows no discrepancy in calf circumference. She does have some tenderness to palpation of the upper calf and she does have a slightly positive Dacia's sign. ANKLE, is not particularly swollen, although she does have a trace of pitting edema over the dorsal surface of the lower tibia. A: Rule out deep venous thrombosis. Ultrasound was done, which is positive for a popliteal clot right at the junction of the superficial femoral. I think the radiologist said the popliteal is pretty well clotted all the way off. P: This woman probably could get by without full anticoagulation just because of this isolated involvement of the lower leg. However, I have some real concerns about someone who has had previous problems in the same area, and I an concerned that because of her weight and size that she might have a fairly large popliteal and that she may even propagate this above the level of her knee. She came in tonight with pretty minimal findings but a very clear history, and certainly I consider her at risk and have gone ahead with the full deep venous thrombosis program. Patient will be put on and was started on protocol for outpatient deep venous thrombosis management. She had blood drawn for activated partial prothrombin time for PT, for complete blood count including platelets, urinalysis, and a creatinine. The initial lab tests were unremarkable. The rest of her lab will be sent out tomorrow. She was started then on Lovenox and she requires the maximum dose of 120 mg subcutaneous. She was also started on 5 mg of coumadin. I prescribed 30. I have suggested she more or less be restful over the weekend but not to elevate her leg necessarily and she may be ambulatory but just be a bit less active then usual, stay home, and take care of herself. She may continue to use warm packs for comfort. I will write up a program, which is basically going to be Lovenox 120 mg bid for the next five days. Continue her coumadin 5 mg. Have someone try to follow-up her lab tomorrow and also monitor her generally. She will need a prothrombin time in a couple of days and then she needs to be intensively followed by her own physician. IN SUMMARY: PHLEBITIS cc: ERCIAL LINES SALES EXECUTIVE documented in this encounter Plan of Treatment Not on filedocumented as of this encounter Visit Diagnoses Diagnosis Phlebitis and thrombophlebitis of lower extremities, unspecified Laboratory examination documented in this encounter Care Teams Incident Response Specialist Relationship Specialty Start Date End Date Danielle Bender MD PCP - General 04/09/01 08/07/10 14[address] [facility] [address] [place] [address] documented as of this encounter
--- OUTSIDE RECORDS SUMMARY | 2022-01-29 17:56 | XMS_ITS | Encounter Summary ---
:1960 Author Organization [employer] Address [address] [place] [address] Care Team Providers Name Role Phone Shaila Cast MD Primary Care Provider Reason for Visit Reason Comments LEG PAIN VIA INTERFACE Encounter Details Date Type Department Care Team Description 07/20/2000 Office Visit Urgent Care [facility] ul PAIN IN LIMB [address] [place], [place] [id number] Social History Tobacco Use Types Packs/Day Years Used Date Smoking Tobacco: Never Assessed Sex Assigned at Date Recorded Not on file documented as of this encounter Progress Notes Reid Medrano - 07/20/2000 12:00 AM CSTS: 39 year-old woman notes increasing size and tenderness of a elongated lump in right popliteal fossa. Denies any unusual period of inactivity such as a long plane flight recently or history of family history of deep venous thrombosis or PE and denies history of chest pain or shortness of breath. She admits to being relatively sedentary. Her job is also sedentary. O: Temperature 99.4, pulse 96, respirations 28, blood pressure 112/80. Patient unfortunately is massively obese but she points out an easily palpable and to some extent visible bluish/greenish lump, I believe, is a thrombosed superficial vein just superior to her popliteal fossa on the right. It is not rock hard. It is not palpably warm and there is no appreciable erythema. It feels more like a clotted vein than for example a bursal cyst. There is no obvious asymmetry of her calves and no tenderness with forceful compression of her calves. If I recall correctly, her posterior tibial pulse was palpable bilaterally at least her pulses were symmetrical. She does not appear to be dyspneic. A: Rule out deep venous thrombosis. P: While she does not have any calf tenderness or pain or thigh pain, larger thrombi, deeper thrombi are sometimes asymptomatic. Rationale for undergoing venous doppler ultrasound to make reasonably certain she does not have high likelihood of serious or fatal complication of a deep venous thrombosis such as PE reviewed. I suspect she has a superficial phlebitis or less likely a Edward's cyst. Told her the former is treated with hot packs and anti-inflammatory agents. Told her to anticipate discussing her case with her after getting a call from radiologist but I was never called by the radiologist and in my experience, sometimes the radiologist will simply tell the patient study is negative and the patient then goes home. In any event, unit receptionist or clerical person called for me and the urinalysis technician was most able to say that the name wasn't familiar to him but that this wasn't necessarily meaningful but in any event all the studies done thus far were negative. IN SUMMARY: RULE OUT DEEP VENOUS THROMBOSIS cc: CUTTER documented in this encounter Plan of Treatment Not on filedocumented as of this encounter Visit Diagnoses Diagnosis Pain in limb documented in this encounter Care Teams Rotary Planer Set Up Operator Relationship Specialty Start Date End Date Shaila Cast MD PCP - General 07/21/00 04/08/[address] [place] [place] [address] documented as of this encounter
--- OUTSIDE RECORDS SUMMARY | 2022-01-29 17:56 | XMS_ITS | Encounter Summary ---
:1960 Author Organization [employer] Address [address] [place] [address] Care Team Providers Name Role Phone Jailene Cho MD Primary Care Provider Unavailable Encounter Details Date Type Department Care Team Description 02/20/1999 Orders Only Jailene Cho MD Social History Tobacco Use Types Packs/Day Years Used Date Smoking Tobacco: Never Assessed Sex Assigned at Date Recorded Not on file documented as of this encounter Plan of Treatment Not on filedocumented as of this encounter Procedures Procedure Name Priority Date/Time Associated Diagnosis Comme nts PLATELETS Routine 02/20/1999 9:23 AM Results f or this CDT procedure are i n the results section. HEMOGLOBIN, BLOOD Routine 02/20/1999 9:23 AM Resu lts for this CDT procedure are i n the results section. WBC, BLOOD Routine 02/20/1999 9:23 AM Results f or this CDT procedure are i n the results section. TSH, SENSITIVE Routine 02/20/1999 9:23 AM Results for this (WITH REFLEX) CDT procedure are in the results section. GLUCOSE - FASTING > Routine 02/20/1999 9:23 AM Re sults for this 8 HRS FASTING CDT procedure are in the results section. UA MICRO Routine 02/20/1999 9:23 AM Results f or this CDT procedure are i n the results section. UA MICRO IF Routine 02/20/1999 9:23 AM Results f or this CDT procedure are i n the results section. documented in this encounter Results UA MICRO (02/20/1999 9:23 AM CDT) athologist Signature RBC'S 0-3 0 - 3 /hpf [facility] WBC'S 0 0 - 5 /hpf [facility] Epith, 0 /hpf [facility] Squamous Bact 0 [facility] Casts 0 /lpf [facility] Specimen Anatomical Collection Method Collection Time Receive d Time (Source) Location / / Volume Laterality 02/20/1999 9:23 AM 9 9:24 CDT AM CDT Jailene Cho MD LAB_1 Performing Organization Address City/[facility] Phon e Number [facility] [employer] [phone] [facility] [address] [phone] UA MICRO IF (02/20/1999 9:23 AM CDT) athologist Signature Appr Dark Yel [facility] Appr Clear [facility] Sp Gr 1.027 1.005 - [facility] 1.030 Leuk 0 0 [facility] Nitr 0 0 [facility] pH 6.0 4.5 - 8.0 [facility] Prot 0 0 mg/dl [facility] Gluc 0 0 g/dl [facility] Ket 0 0 [facility] Urob 0.1-1 0.1 - 1 [facility] mg/dl Bili 0 0 [facility] Blood Sml 0 [facility] Specimen Anatomical Collection Method Collection Time Receive d Time (Source) Location / / Volume Laterality 02/20/1999 9:23 AM 9 9:24 CDT AM CDT Jailene Cho MD LAB_1 Performing Organization Address [facility] Phon e Number [facility] [employer] [phone] [facility] [address] [place] [phone] WBC, BLOOD (02/20/1999 9:23 AM CDT) athologist Signature WBC 10.5 3.6 - 11.0 [facility] k/ul Specimen Anatomical Collection Method Collection Time Receive d Time (Source) Location / / Volume Laterality 02/20/1999 9:23 AM 9 9:24 CDT AM CDT Jailene Cho MD LAB_1 Performing Organization Address City/[facility]/ZIP Code Phon e Number [facility] [phone] [facility] [address] [place] [phone] PLATELETS (02/20/1999 9:23 AM CDT) P athologist Signature Platelets 374 150 - 450 [facility] k/ul Specimen Anatomical Collection Method Collection Time Receive d Time (Source) Location / / Volume Laterality 02/20/1999 9:23 AM 9 9:24 CDT AM CDT Jailene Cho MD LAB_1 Performing Organization Address [facility] Phon e Number [facility] [phone] [facility] [address] [place] [phone] HEMOGLOBIN, BLOOD (02/20/1999 9:23 AM CDT) P athologist Signature Hemoglobin 12.6 12.0 - 16.0 [facility] g/dl Specimen Anatomical Collection Method Collection Time Receive d Time (Source) Location / / Volume Laterality 02/20/1999 9:23 AM 9 9:24 CDT AM CDT Jailene Cho MD LAB_1 Performing Organization Address [facility] Phon e Number [facility] [employer] [phone] [phone] (ABNORMAL) GLUCOSE - FASTING > 8 HRS FASTING (02/20/1999 9:23 AM CDT) [facility] gist Method Time Signature Glucose 123 (H) 70 - 110 [facility] mg/dl Hours Fasting 12 hours [facility] Specimen Anatomical Collection Method Collection Time Receive d Time (Source) Location / / Volume Laterality 02/20/1999 9:23 AM 9 9:24 CDT AM CDT Jailene Cho MD LAB_1 Performing Organization Address [facility] Phon e Number [facility] [employer] [phone] [phone] TSH, SENSITIVE (02/20/1999 9:23 AM CDT) P athologist Signature TSH 3.67 0.30 - 5.00 [facility] uIU/ml Thyroid Meds No [facility] Specimen Anatomical Collection Method Collection Time Receive d Time (Source) Location / / Volume Laterality 02/20/1999 9:23 AM 9:24 CDT AM CDT Jailene Cho MD LAB_1 Performing Organization Address City/State/ZIP Code Phon e Number [facility] [phone] [facility] [address] [phone] documented in this encounter Visit Diagnoses Not on filedocumented in this encounter Care Teams Translator Relationship Specialty Start Date End Date Jailene Cho MD PCP - General 01/02/1999 documented as of this encounter
--- OUTSIDE RECORDS SUMMARY | 2022-01-29 17:56 | XMS_ITS | Encounter Summary ---
:1960 Author Organization [email or web address] Address [address] [place] [address] Care Team Providers Name Role Phone Found, No Pcp Primary Care Provider Unavailable Encounter Details Date Type Department Care Team Description 06/02/1997 Orders Only Corinna Sylvester MD [address] [place] [phone] (Wo rk) Social History Tobacco Use Types Packs/Day Years Used Date Smoking Tobacco: Never Assessed Sex Assigned at Date Recorded Not on file documented as of this encounter Plan of Treatment Not on filedocumented as of this encounter Visit Diagnoses Not on filedocumented in this encounter Care Teams Car Rental Deliverer Relationship Specialty Start Date End Date Found, No PcpMD PCP - General 08/27/21 [address] [place] [address] documented as of this encounter
--- OUTSIDE RECORDS SUMMARY | 2022-01-29 17:56 | XMS_ITS | Encounter Summary ---
:1960 Author Organization [employer] Address [address] [place] [address] Care Team Providers Name Role Phone Danielle Bender MD Primary Care Provider Encounter Details Date Type Department Care Team Description 06/20/2001 [facility] [address] [facility] VENOUS THROMBOSIS NEC [address] [place] [address] Social History Tobacco Use Types Packs/Day Years Used Date Smoking Tobacco: Never Assessed Sex Assigned at Date Recorded Not on file documented as of this encounter Plan of Treatment Not on filedocumented as of this encounter Visit Diagnoses Diagnosis Other acute embolism veins Acute venous embolism and thrombosis of other specified veins documented in this encounter Care Teams Residential Construction Instructor Relationship Specialty Start Date End Date Danielle Bender MD PCP - General 04/09/01 08/07/[address] [place] [address] documented as of this encounter
--- OUTSIDE RECORDS SUMMARY | 2022-01-29 17:56 | XMS_ITS | Encounter Summary ---
:1960 Author Organization [facility] Address [address] [place] [address] Care Team Providers Name Role Phone Olamide Rodney MD Primary Care Provider Encounter Details Date Type Department Care Team Description 06/19/2001 Orders Only [facility] [address] [place] [address] Social History Tobacco Use Types Packs/Day Years Used Date Smoking Tobacco: Never Assessed Sex Assigned at Date Recorded Not on file documented as of this encounter Plan of Treatment Pending Results Name Type Priority Associated Diagnoses Date/Ti me HEMOGRAM/PLTS/DIFF Lab Waiting 1 8:00 PM ENTRY LEVEL MANUFACTURING ENGINEER documented as of this encounter Procedures Procedure Name Priority Date/Time Associated Comments Diagnosis COMPLETE BLOOD Waiting 06/19/2001 8:00 PM COUNT-W/DIFF ENTRY LEVEL MANUFACTURING ENGINEER UA, NO MICROSCOPIC Waiting 06/19/2001 8:00 PM Res ults for this ENTRY LEVEL MANUFACTURING ENGINEER procedure are i n the results section. CREATININE Routine 06/19/2001 8:00 PM Results f or this ENTRY LEVEL MANUFACTURING ENGINEER procedure are i n the results section. documented in this encounter Results CREATININE (06/19/2001 8:00 PM ENTRY LEVEL MANUFACTURING ENGINEER) [employer] Method Time Signature Creatinine 1.0 0.5 - 1.2 [facility] mg/dl Creatinine Performed at [facility] Specimen Anatomical Collection Method Collection Time Receive d Time (Source) Location / / Volume Laterality 06/19/2001 8:00 PM 1 8:01 ENTRY LEVEL MANUFACTURING ENGINEER PM ENTRY LEVEL MANUFACTURING ENGINEER Full Range [employer]ucc LAB_1 Performing Organization Address [facility] Phon e Number [employer] [phone] [facility] [address] [place] [phone] (ABNORMAL) UA WITHOUT MICRO (06/19/2001 8:00 PM ENTRY LEVEL MANUFACTURING ENGINEER) P athologist Signature Appr Yellow [facility] Appr Hazy [facility] Sp Gr 1.028 1.005 - [facility] 1.030 Leuk Tr (A) [facility] Nitr Neg [facility] pH 6.0 4.5 - 8.0 [facility] Prot 30 (A) [place] mg/dl [facility] Gluc Neg mg/dl [facility] Ket 15 (A) [place] mg/dl [facility] Urob 0.2 0.2 - 1.0 [facility] EU/dl Bili Neg [facility] Blood Neg [facility] Specimen Anatomical Collection Method Collection Time Receive d Time (Source) Location / / Volume Laterality 06/19/2001 8:00 PM 1 8:01 ENTRY LEVEL MANUFACTURING ENGINEER PM ENTRY LEVEL MANUFACTURING ENGINEER [employer] LAB_1 Performing Organization Address [facility] Phon e Number [employer] [phone] [phone] documented in this encounter Visit Diagnoses Not on filedocumented in this encounter Care Teams Tube Mill Operator Relationship Specialty Start Date End Date Olamide Rodney MD PCP - General 09/25/10 01/11/21 [address] [place] [address] documented as of this encounter
--- OUTSIDE RECORDS SUMMARY | 2022-01-29 17:56 | XMS_ITS | Encounter Summary ---
:[address] [employer] Address [address] [place] [address] Care Team Providers Name Role Phone Jailene Cho MD Primary Care Provider Unavailable Encounter Details Date Type Department Care Team Description 12/12/1997 Office Visit [facility] Jennifer Candelaria, PT [facility] [address] [place] [address] Social History Tobacco Use Types Packs/Day Years Used Date Smoking Tobacco: Never Assessed Sex Assigned at Date Recorded Not on file documented as of this encounter Progress Notes Jennifer Candelaria - 12/12/1997 12:00 AM CDTS: The patient is a 36-year-old female with primary complaint of bilateral jaw pain. She reports a long-term history of this the last 10 to 15 years, but it was managed better with stress management and decreasing bruxism. However, she had continued to have some constant pain. Recently there was an increase in level of pain. Primarily at this time, she describes it as a dull ache, and occasionally sharp. She was motivated to see a doctor this time when she began having right ear pain together with the jaw pain, and there was no apparent infection. She also reports bilateral neck and shoulder tension, and ache, on a low level most of the time. She tends to tune it out. She becomes aware of this area a couple of times per day. The symptoms will build into a headache one time every three to four weeks, but aspirin will help to relieve it. Usually the headache starts in suboccipital area and radiates to retroorbital area. The patient reports cracking right greater than left TMJ with jaw movement. In the past she has a history of her jaw locking open. Pain is increased with chewing, talking, yawning, and stress. She admits to increased stress in the last year as well as dental work and after her bite did not feel right. The patient normally sleeps supine or side lying with two pillows due to difficulty breathing with allergies if she lays flat. She denies nocturnal bruxism and daytime clenching, but states bracing is possible. In the past, she had a habit of biting nails and pens but has discontinued. She does chew more on the left recently especially because of dental work on the right. Her aerobic exercise is limited. She works in [employer] and sits a fair amount of the time at her desk, but also moves from department to department. No previous physical therapy. O: Mandibular movement is as follows: Maximum opening 47 mms with complaint of pain bilaterally. Sometimes the patient's opening was straight and other times deviated to the left and then back to mid line. A tendency to translate early on the right. Protrusion seven mms, bilateral lateral trusion nine mms. No click was noted during evaluation, but reportedly is normally late opening. Palpation reveals tenderness left greater than right masseter. Slightly bilaterally in the following: Lateral TMJ capsule, upper trapezius, suboccipital, cervical paravertebrals and levator scapula. Cervical range of motion is within normal limits. Strength in neck and upper back is grossly within normal limits. The patient normally rests with her tongue against upper incisors. She breaths through her nose when she is able to. She does have forward head and neck posture with a Dowager's hump and shoulders are held braced. A: Patient with long-term history of jaw pain and symptoms, but recent increase in intensity. Possible contributing factors include bracing, unilateral chew left, impaired opening pattern, posture of tongue and jaw, head and shoulders. Goals of treatment are to decrease pain, improve opening pattern and posture and have patient maintain herself independently with home exercise program. TREATMENT: We will focus on home program today. She was instructed in postural correction exercises. Passive jaw stretch for relaxation limiting to two knuckles and next time will instruct in upper trapezius and levator scapula stretches. P: We will see her on a short-term basis for home program. cc: Gab Leger DDS,MS documented in this encounter Plan of Treatment Not on filedocumented as of this encounter Visit Diagnoses Diagnosis Myalgia and myositis, unspecified Mylagia and myositis, unspecified documented in this encounter Care Teams Bander And Cellophaner Machine Helper Relationship Specialty Start Date End Date Jailene Cho MD PCP - General 01/02/1999 documented as of this encounter
--- OUTSIDE RECORDS SUMMARY | 2022-01-29 17:56 | XMS_ITS | Encounter Summary ---
:1960 Author Organization [facility] Address [address] [place] [address] Care Team Providers Name Role Phone Jailene Cho MD Primary Care Provider Unavailable Encounter Details Date Type Department Care Team Description 04/06/1998 Office Visit Kvng Lowery MD VACCINE FOR INFLUENZA [address] [place], [place] [phone] (Wo rk) Social History Tobacco Use Types Packs/Day Years Used Date Smoking Tobacco: Never Assessed Sex Assigned at Date Recorded Not on file documented as of this encounter Plan of Treatment Not on filedocumented as of this encounter Visit Diagnoses Diagnosis VACCINE FOR INFLUENZA documented in this encounter Care Teams Senior Accountant Relationship Specialty Start Date End Date Jailene Cho MD PCP - General 01/02/1999 documented as of this encounter
--- OUTSIDE RECORDS SUMMARY | 2022-01-29 17:56 | XMS_ITS | Encounter Summary ---
:1960 Author Organization [facility] Address [address] [place] [address] Care Team Providers Name Role Phone Jailene Cho MD Primary Care Provider Unavailable Reason for Visit Reason Comments Follow-up, NOS VIA INTERFACE Encounter Details Date Type Department Care Team Description 12/12/1999 Office Visit [facility] Corinna Sylevster SPECIFIED VIRAL WARTS; Practice MD Mendy DEPRESSIVE DISORDER NOS; [address] [place] [address] [phone] [facility] ASTHMA W/O STATUS ASTHMATICUS; [place], [place] LABORA TORY EXAMINATION [phone] [phone] Social History Tobacco Use Types Packs/Day Years Used Date Smoking Tobacco: Never Assessed Sex Assigned at Date Recorded Not on file documented as of this encounter Progress Notes Corinna Sylvester - 12/12/1999 12:00 AM CDTSUBJECTIVE: 38-year-old woman here for a follow up. When she recently tried to give blood at the [facility], there were problems with the clotting and she was not able to actually give blood. She's concerned about this and would like things followed up. She has a history of depression, is doing quite well on Zoloft 50 mg a day at this time. She has a history of intermittent episodes of wheezing and uses Maxair but usually only intermittently. She has hair growth on her face that she would like addressed. She is interested in seeing some who does electrolysis. I did discuss spironolactone with her, but she would like to try other methods first. She would like a wart in her foot treated as well. OBJECTIVE: Lungs have slight wheezing with forced expiration. She has some skin tags on the right neck area that were either nipped off or treated with liquid nitrogen. She has a centimeter wart on the base of her right foot that was pared down and treated with liquid nitrogen, and she'll continue to be using the wart pad treatments at home and return for retreatment. ASSESSMENT: Increased clotting with having blood drawn at [facility]. Plantar wart. Asthma. Facial hair growth. PLAN: Continue Zoloft. Encouraged her to go ahead and try the electrolysis. Consider spironolactone as another choice. Wart treated as above. CBC, PT, PPT, cholesterol, glucose and TSH drawn. cc: documented in this encounter Plan of Treatment Not on filedocumented as of this encounter Visit Diagnoses Diagnosis Other specified viral warts Depressive disorder, not elsewhere class ified Unspecified asthma(493.90) ([facility]) Unspecified asthma Laboratory examination documented in this encounter Care Teams Practicing Dermatologist Relationship Specialty Start Date End Date Jailene Cho MD PCP - General 01/02/1999 documented as of this encounter
--- OUTSIDE RECORDS SUMMARY | 2022-01-29 17:56 | XMS_ITS | Encounter Summary ---
:1960 Author Organization [facility] Address [address] [place] [address] Care Team Providers Name Role Phone Jailene Cho MD Primary Care Provider Unavailable Encounter Details Date Type Department Care Team Description 01/11/1998 Office Visit [facility] TMD Gab Leger TMJ DISORD ARTICULAR DISC AB NL; [address] C, DDS, [place] [address] Social History Tobacco Use Types Packs/Day Years Used Date Smoking Tobacco: Never Assessed Sex Assigned at Date Recorded Not on file documented as of this encounter Progress Notes Gab Leger - 01/11/1998 12:00 AM CDTS: This 36-year-old female initially presented to our clinic on November 16, 1997, with a problem of jaw pain. She reported it occurred nightly in the preauricular region bilaterally and was progressive through the day, aggravated by eating and in general using her jaw. She also reported that psychosocial stresses had had an impact as well. Her jaw cracked audibly and she reported a history of locking when about 15 years previously where she recalls not being able to bring her teeth together. Onset of the problem was at that time when she yawned and it has not been particularly progressive since that time. She was evaluated in the late but did not proceed with any treatment and learned how to live with it. She has had related suboccipital headaches and neck pain as she has gone through a period during the spring where the problem was aggravated. O: The patient showed a maximum opening of 50 mm with pain in the left TM joint and reciprocal clicking in both joints. There was moderate to severe tenderness to palpation of the muscles of mastication and the left TM joint was exquisitely tender. There is also some tenderness in the cervical region. Her dentition was stable. Intraoral soft tissue examination was within normal limits. Bilateral TM joint tomography was within normal limits with the exception of a suggestion of posterior condylar displacement typically seen with a disc displacement problem. 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 She also reports that she has been under less stress of late and that likely has had an impact on her problem. We discussed treatment options including an appliance and continued physical therapy and behavioral treatment. At this time she has elected to continue with self care and will return to clinic as needed. P: The patient will return to clinic p.r.n. No treatment at this time. Date: January 11, 1998. 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
--- OUTSIDE RECORDS SUMMARY | 2022-01-29 17:56 | XMS_ITS | Encounter Summary ---
:1960 Author Organization [facility] Address [address] [place] [address] Care Team Providers Name Role Phone Zzdeclined, Primary Care Provid Primary Care Provider Candace oden Reason for Visit Reason Comments Follow-up, NOS VIA INTERFACE Encounter Details Date Type Department Care Team Description 02/06/2000 Office Visit [facility] Corinna Sylvester R SPECIFIED VIRAL Practice MD Mendy [address] [phone] Social History Tobacco Use Types Packs/Day Years Used Date Smoking Tobacco: Never Assessed Sex Assigned at Date Recorded Not on file documented as of this encounter Progress Notes Corinna Sylvester - 02/06/2000 12:00 AM CDTSUBJECTIVE: Paty is a 39 -year-old female here for a follow-up of plantar wart and right foot. She has been doing home treatment as well over the past 6 months and it does not seem to be going away. OBJECTIVE: The patient has a 1 centimeter plantar wart on the plantar surface of her right foot near the heel. It was trimmed well with a blade and then liquid nitrogen applied x 2. ASSESSMENT: Plantar wart. PLAN: Will have her see dermatology to see if more aggressive treatment would be warranted. cc: documented in this encounter Plan of Treatment Not on filedocumented as of this encounter Visit Diagnoses Diagnosis Other specified viral warts documented in this encounter Care Teams Medicaid Eligibility Specialist Relationship Specialty Start Date End Date Zzdearuna, Primary Care Provid PCP - General 01/22/00 07/20/00 documented as of this encounter
--- OUTSIDE RECORDS SUMMARY | 2022-01-29 17:56 | XMS_ITS | Encounter Summary ---
:1960 Author Organization [facility] Address [address] [place] [address] Care Team Providers Name Role Phone Jailene Cho MD Primary Care Provider Unavailable Encounter Details Date Type Department Care Team Description 06/29/1997 Office Visit [facility] Corinna Sylvester DEPRESSIVE DISORDER Internal Medicine MD Mendy NOS [address] [facility] [address] [place] [address] [phone] Social History Tobacco Use Types Packs/Day Years Used Date Smoking Tobacco: Never Assessed Sex Assigned at Date Recorded Not on file documented as of this encounter Progress Notes Corinna Sylvester J - 06/29/1997 12:00 AM CSTS: A 36-year-old woman here for follow- up of mild depression. She reports that on the low dose Zoloft 50 mg daily she has less mood swings. She does not cry as easily and overall feels better. Initially she had a few headaches, but this has resolved. She is tolerating 50 mg well and does not feel like she needs to increase the dose at this time. O: The patient appears to be in good spirits today. A: Mild depression, improved with low dose Zoloft. P: Continue Zoloft 50 mg daily and increase to 100 mg if her symptoms seem to be recurring. Encouraged her to stay on the Zoloft for 4-6 months, at which time she can taper off. If her symptoms recur, she can start it again. cc: documented in this encounter Plan of Treatment Not on filedocumented as of this encounter Visit Diagnoses Diagnosis Depressive disorder, not elsewhere class ified documented in this encounter Care Teams Hybrid Corn Breeder Relationship Specialty Start Date End Date Jailene Cho MD PCP - General 01/02/1999 documented as of this encounter
--- OUTSIDE RECORDS SUMMARY | 2022-01-29 17:56 | XMS_ITS | Encounter Summary ---
:1960 Author Organization [facility] Address [address], [place] [address] Care Team Providers Name Role Phone Found, No Pcp Primary Care Provider Unavailable Encounter Details Date Type Department Care Team Description 03/02/1998 Orders Only Jailene Cho MD Social History Tobacco Use Types Packs/Day Years Used Date Smoking Tobacco: Never Assessed Sex Assigned at Date Recorded Not on file documented as of this encounter Plan of Treatment Not on filedocumented as of this encounter Visit Diagnoses Not on filedocumented in this encounter Care Teams Software Sales Executive Relationship Specialty Start Date End Date Found, No PcpMD PCP - General 08/27/21 [address] [place] [address] documented as of this encounter
--- OUTSIDE RECORDS SUMMARY | 2022-01-29 17:56 | XMS_ITS | Encounter Summary ---
:1960 Author Organization [facility] Address [address] [place] [address] Care Team Providers Name Role Phone Jailene Cho MD Primary Care Provider Unavailable Encounter Details Date Type Department Care Team Description 12/12/1997 Office Visit [facility]encia TMD Nicky Jackson [facility] [employer] [address] [place] [address] Social History Tobacco Use Types Packs/Day Years Used Date Smoking Tobacco: Never Assessed Sex Assigned at Date Recorded Not on file documented as of this encounter Progress Notes Nicky Jackson - 12/12/1997 12:00 AM CDTSYMPTOMS: The patient is a 36-year-old female who was referred by Dr. Gab Leger for relaxation training and stress management. Her primary symptoms are jaw pain, headaches, and musculoskeletal pain. HISTORY OF SYMPTOMS: Please refer to the patient's medical chart for a summary of her medical treatments. The patient, who likes to be known as Paty, reported that she has had TMJ symptoms since age 18 and began treatment for those symptoms ten years ago. At that point, treatment took primarily the form of stress management in which she learned to relax her muscles and not grind her teeth, got more sleep, and made a career transition. She reported that her symptoms have gradually intensified and become more frequent in the last couple of years and has been especially intense in the last six months. In looking back over this period of time, she reported that her increased symptoms made a great deal of sense to her because she was simultaneously dealing with the introduction of a new oyster floater into her latter day community, looking into the process of adoption, dealing with a transition in bosses, and dealing with some symptoms of depression. She described her TMJ symptoms as problems with ear pain, clicking, daily bilateral dull jaw pain, and problems with headache (described as a dull ache that begins in the back of her neck, that can be managed by massaging the back of her neck and that occurs two to three times a week). She was not sure if her symptoms were better on the weekends or when she takes additional days off. The parafunctional habits that she acknowledged as possibly troublesome for her are clenching, occasional chewing on her lip, left sided unilateral chewing and jaw bracing. She described her diet as pretty balanced and regular. She did indicate that she tends to crave chewy foods or salty foods when she is needing some comfort. She drinks two cans of caffeinated pop per day. In describing her sleep, she reported that her sleep has been somewhat negatively affected by taking Zoloft for depression. She reported that it takes her longer to fall asleep at night and longer to wake up in the morning. She also reported that she tends to get by on six to seven hours of sleep on week nights, when in reality she needs 7 hours. On the weekends, she will sleep as long as she needs, with the range of sleep varying between six hours to 12 hours a night. Some of the difficulties in falling asleep, may be a function of her thinking about random things or reading. She did indicate that working on crossword puzzles facilitated falling asleep. 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 She reported that she really likes the type of work she does, which involves administrative work as well as people contact. Although there was a great deal of stress for her when her former boss left, she reported that her current boss is fair and knowledgeable. She reported that her previous boss was a mentor and a friend. She does take a nonworking lunch on a regular basis and takes breaks as needed. The primary source of stress in her job is needing to fire an employee. The other source of stress is a tendency to procrastinate somewhat and then needing to complete projects under deadlines. She reported that there is currently no financial stress for her and that she has worked on reorganizing her financial life so that it is more comfortable for her. She acknowledged that she used to spend money as a source of stress management. Since taking the Zoloft for depression, she reported that she does not feel as strong a desire to spend money. Instead, she is reading a lot more. She reported that she underwent eye laser surgery two years ago that has taken care of the eye headaches she used to get and which have allowed her to read significantly more. The patient lives alone in her own townhouse. She is not currently involved in any relationship and feels that this is a part of her life she would like to improve. She does have a support community and paints as well as reads for entertainment. She reported that there is no history of chemical nor sexual abuse in her family. MENTAL STATUS: The patient was a well groomed woman who appeared alert and cooperative. She had no difficulty in initiating and maintaining the conversation. Her affect was appropriate for the topics covered. She did not appear to be in acute distress, did not express any suicidal nor homicidal ideation, and did not express any thought disorder. She reported that the Zoloft has been very helpful to her, indicating that things did not bother her as much. She does not cry as easily, and is has positively affected her tendency to spend money. ASSESSMENT: There appears to be a number of parafunctional triggers (clenching, occasional chewing on her lips, left sided unilateral chewing, jaw bracing, moderate sleep deprivation, lack of aerobic exercise) and some psychosocial triggers (stresses associated with her latter day, the process of trying to adopt, work) that probably contribute to the level of intensity and frequency of her physical symptoms. I used the mind/body framework to help her understand the nature of her symptoms and to help her understand how these different triggers might affect her symptoms. PLAN: The patient will follow up with me in two to three weeks. I asked her to listen to her own copy of her relaxation tape, taught her the hip pocket technique for monitoring her parafunctional habits, encouraged her to limit her reading to the early part of the evening and to use crossword puzzles as a way to help her relax before sleep, taught her the relaxation breath to help her relax before going to sleep, encouraged her to sleep seven and a half hours, encouraged her to gradually decrease her intake of caffeinated pop, and encouraged her to schedule a moderate walk two to three times into her weekly routine. cc: Gab Leger DDS,MS documented in this encounter Plan of Treatment Not on filedocumented as of this encounter Visit Diagnoses Diagnosis Psychic factors associated with diseases classified elsewhere ([facility]) Psychic factors associated with diseases classified elsewhere documented in this encounter Care Teams Legal Practice Manager Relationship Specialty Start Date End Date Jailene Cho MD PCP - General 01/02/1999 documented as of this encounter
--- OUTSIDE RECORDS SUMMARY | 2022-01-29 17:56 | XMS_ITS | Encounter Summary ---
:1960 Author Organization [facility] Address [address] [place] [address] Care Team Providers Name Role Phone Olamide Rodney MD Primary Care Provider Encounter Details Date Type Department Care Team Description 06/11/2001 Orders Only Deloris Newman MD [address] [place], [place] [phone] [place] [address] [phone] (Wo rk) Social History Tobacco Use Types Packs/Day Years Used Date Smoking Tobacco: Never Assessed Sex Assigned at Date Recorded Not on file documented as of this encounter Plan of Treatment Not on filedocumented as of this encounter Procedures Procedure Name Priority Date/Time Associated Diagnosis Comme nts HGB A1C Routine 06/11/2001 10:30 AM Results for this CLINICAL SALES CONSULTANT procedure are i n the results section . documented in this encounter Results (ABNORMAL) HGB A1C (06/11/2001 10:30 AM CLINICAL SALES CONSULTANT) P athologist Signature Hgb A1c 7.0 (H) 4.3 - 6.1 % [facility] [employer] Specimen Anatomical Collection Method Collection Time Receive d Time (Source) Location / / Volume Laterality 06/11/2001 10:30 06/11/2001 AM CLINICAL SALES CONSULTANT 10:31 AM CLINICAL SALES CONSULTANT Deloris Chirinos MD LAB_1 Performing Organization Address City/State/ZIP Code Phon e Number [facility] [phone] [facility] [address] [phone] documented in this encounter Visit Diagnoses Not on filedocumented in this encounter Care Teams E Commerce Specialist Relationship Specialty Start Date End Date Olamide Rodney MD PCP - General 09/25/10 01/11/21 [address] [place], [place] [phone] documented as of this encounter
--- OUTSIDE RECORDS SUMMARY | 2022-01-29 17:56 | XMS_ITS | Encounter Summary ---
:1960 Author Organization [facility] Address [address] [place] [address] Care Team Providers Name Role Phone Olamide Rodney MD Primary Care Provider Encounter Details Date Type Department Care Team Description 06/19/2001 Orders Only [facility] [address] [place], [place] [phone] Social History Tobacco Use Types Packs/Day Years Used Date Smoking Tobacco: Never Assessed Sex Assigned at Date Recorded Not on file documented as of this encounter Plan of Treatment Not on filedocumented as of this encounter Procedures Procedure Name Priority Date/Time Associated Comments Diagnosis APTT (ACTIVATED PARTIAL Waiting 06/19/2001 8:00 PM Results for this THROMBOPLASTIN TIME YOUTH CARE PROFESSIONAL procedur e are in the results section. INR/PROTIME Waiting 06/19/2001 8:00 PM Results f or this YOUTH CARE PROFESSIONAL procedure are i n the results section. documented in this encounter Results PARTIAL THOMBIN TIME (06/19/2001 8:00 PM YOUTH CARE PROFESSIONAL) [facility] Method Time Signature PTT 24.9 21 - 33 [facility] sec PTT Performed at [facility] Specimen Anatomical Collection Method Collection Time Receive d Time (Source) Location / / Volume Laterality 06/19/2001 8:00 PM 1 8:01 YOUTH CARE PROFESSIONAL PM YOUTH CARE PROFESSIONAL Full Range Spucc LAB_1 Performing Organization Address City/State/ZIP Code Phon e Number [facility] [phone] [phone] PROTIME (06/19/2001 8:00 PM YOUTH CARE PROFESSIONAL) [facility] Method Time Signature Protime 8.7 8.0 - [facility] 12.5 sec Protime Performed at [facility] INR 0.93 [facility] INR For stable oral anticoagulants, the INR [facility] therapeutic range is 2.0-4.5. Performed at [facility] Specimen Anatomical Collection Method Collection Time Receive d Time (Source) Location / / Volume Laterality 06/19/2001 8:00 PM 1 8:01 YOUTH CARE PROFESSIONAL PM YOUTH CARE PROFESSIONAL Full Range Spucc LAB_1 Performing Organization Address City/State/ZIP Code Phon e Number [facility] [phone] [phone] documented in this encounter Visit Diagnoses Not on filedocumented in this encounter Care Teams Paper Cutter Operator Relationship Specialty Start Date End Date Olamide Rodney MD PCP - General 09/25/10 01/11/21 [address] [place] [address] documented as of this encounter
--- OUTSIDE RECORDS SUMMARY | 2022-01-29 17:56 | XMS_ITS | Encounter Summary ---
:1960 Author Organization [facility] Address [address] [place] [address] Care Team Providers Name Role Phone Jailene Cho MD Primary Care Provider Unavailable Reason for Visit Reason Comments LUMP,NOS VIA INTERFACE Encounter Details Date Type Department Care Team Description 09/19/1999 Office Visit [facility] José Cast MD WARTS (UNSPECIFIED) Practice [address] [place] [id number] [id number] [place] [address] [phone] Social History Tobacco Use Types Packs/Day Years Used Date Smoking Tobacco: Never Assessed Sex Assigned at Date Recorded Not on file documented as of this encounter Progress Notes Shaila Cast - 09/19/1999 12:00 AM CSTSUBJECTIVE: Patient comes in for a wart on her right foot. It's been there for about 2 weeks. She thought it was a pimple at first but it hasn't come to a head. OBJECTIVE: She's alert in no acute distress. Blood pressure 114/84. Weight 315 pounds. Right foot has a small plantar wart near the heel. ASSESSMENT: Plantar wart. PLAN: Patient tolerated liquid destruction of the wart. Return in two weeks for reevaluation. cc: R POLICY AND STRATEGY PLANNER documented in this encounter Plan of Treatment Not on filedocumented as of this encounter Visit Diagnoses Diagnosis Viral warts, unspecified documented in this encounter Care Teams Director Of Vocational Guidance Relationship Specialty Start Date End Date Jaielne Cho MD PCP - General 01/02/1999 documented as of this encounter
--- OUTSIDE RECORDS SUMMARY | 2022-01-29 17:56 | XMS_ITS | Encounter Summary ---
:1960 Author Organization [employer] Address [address] [place] [address] Care Team Providers Name Role Phone Jailene Cho MD Primary Care Provider Unavailable Encounter Details Date Type Department Care Team Description 06/02/1997 [place] DEPRESSIVE DISORDER Internal Medicine MD Mendy NOS [address] [facility] [address] [place] [address] [phone] Social History Tobacco Use Types Packs/Day Years Used Date Smoking Tobacco: Never Assessed Sex Assigned at Date Recorded Not on file documented as of this encounter Progress Notes Corinna Sylvester J - 06/02/1997 12:00 AM CSTS: 36-year-old woman who has had intermittent symptoms of depression over many years. One episode about 10 years ago when she was living in [place] was more severe and she was actually suicidal at one point. However, she sought help through counseling and has improved. Numerous situational stresses have aggravated her depression. When she called to schedule the appointment about three weeks ago, she was crying a lot and feeling quite down. 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 Occasionally has trouble with concentration and when she's under a lot of stress lacks energy. Some sleeping difficulty with difficulty going to sleep. Not suicidal at this time. She is on control pills to help regulate her period. O: Patient's able to talk quite openly about her symptoms. Did not appear significantly depressed today but clearly has had ongoing intermittent or mild depression symptoms. A: Mild depression. P: Trial of Zoloft 50 mg 1/2 tab qd for four days, then 1 daily and recheck in one month. Was not interested in counseling at this time. Time spent with patient, 25 minutes. cc: documented in this encounter Plan of Treatment Not on filedocumented as of this encounter Visit Diagnoses Diagnosis Depressive disorder, not elsewhere class ified documented in this encounter Care Teams Machine Filler Servicer Relationship Specialty Start Date End Date Jailene Cho MD PCP - General 01/02/1999 documented as of this encounter
--- OUTSIDE RECORDS SUMMARY | 2022-01-29 17:56 | XMS_ITS | Encounter Summary ---
:1960 Author Organization [employer] Address [address] [place] [address] Care Team Providers Name Role Phone Danielle Bender MD Primary Care Provider Encounter Details Date Type Department Care Team Description 06/04/2001 Orders Only Cameron Chirinos MD [address] [address] (Wo rk) Social History Tobacco Use Types Packs/Day Years Used Date Smoking Tobacco: Never Assessed Sex Assigned at Date Recorded Not on file documented as of this encounter Plan of Treatment Not on filedocumented as of this encounter Procedures Procedure Name Priority Date/Time Associated Diagnosis Comme nts WATER FILTERER CYTOLOGY Routine 06/04/2001 8:00 AM Results f or this MEDICAL RECRUITER procedure are i n the results section . documented in this encounter Results WATER FILTERER CYTOLOGY (06/04/2001 8:00 AM MEDICAL RECRUITER) [facility] Method Time Signature Lay Out Worker Cytology Lay Out Worker Cytology Report REGIONS Patient Name: PATY YEAGER Taken: 06/04/01 Received: 06/09/01 Reported: 06/28/01 Physician(s): CAMERON CHIRINOS ([id number]) ? [id number] Final Cytologic Diagnosis Cervical Endocervical,routine: ? Satisfactory for evaluation. ??Endocervical cells and/or squamous metaplastic cells ??present. This pap smear was sent to [facility], [address] [place] [address] [address] ??[place] ??[address] for evaluation. ?? Their results are as follows. ? WITHIN NORMAL LIMITS (WNL) ? Comment qcs/06/28/01 Electronically Signed Out By [facility], [facility] [address], [place] ? Source of Specimen(s) Cervical Endocervical,routine Clinical History Date of Last Menstrual Period: ? 05/07/01 Menstrual History: Contraceptive History: Cancer History: Infection History: Treatment History: Other Clinical Conditions: LAST PAP: 02/27/99 Other Related Clinical Data Specimen Anatomical Collection Method Collection Time Receive d Time (Source) Location / / Volume Laterality 06/04/2001 8:00 AM 1 MEDICAL RECRUITER 12:33 PM MEDICAL RECRUITER Cameron Chirinos MD UNLISTED CODE Performing Organization Address City/State/ZIP Code Phon e Number [address] [address] [place], [place] [phone] documented in this encounter Visit Diagnoses Not on filedocumented in this encounter Care Teams Local Government Legislator Relationship Specialty Start Date End Date Danielle Bender MD PCP - General 04/09/01 08/07/[address] [place] [address] documented as of this encounter
--- OUTSIDE RECORDS SUMMARY | 2022-01-29 17:56 | XMS_ITS | Encounter Summary ---
:1960 Author Organization [employer] Address [address], [place] [address] Care Team Providers Name Role Phone Jailene Cho MD Primary Care Provider Unavailable Encounter Details Date Type Department Care Team Description 04/19/1999 Orders Only Jailene Cho MD Social History Tobacco Use Types Packs/Day Years Used Date Smoking Tobacco: Never Assessed Sex Assigned at Date Recorded Not on file documented as of this encounter Procedure Notes Brien Fagan - 04/19/1999 12:00 AM CDTAssociated Order(s): BREAST IMAGING CLINICAL DATA: Screen INTERPRETATION: BILATERAL MAMMOGRAM 04/19/99: No radiographic evidence for malignancy, and no change compared to 03/14/97. ACR BIRADS CATEGORY 1 - NEGATIVE MAMMOGRAM Brien Fagan MD cc: Radiology Jailene Cho MD documented in this encounter Plan of Treatment Not on filedocumented as of this encounter Procedures Procedure Name Priority Date/Time Associated Diagnosis Comme nts BREAST IMAGING 04/19/1999 Results for t his procedure are in the resu lts section. documented in this encounter Results BREAST IMAGING (04/19/1999) Anatomical Region Laterality Modality Breast Other Specimen (Source) Anatomical Location Collection Method / Collectio n Time Received Time / Laterality Volume Transcriptions Brien Fagan - 04/19/1999 12 :00 AM CDTCLINICAL DATA: Screen INTERPRETATION: BILATERAL MAMMOGRAM 03/24 : No radiographic evidence for malignancy, and no change compared to . ACR BIRADS CATEGORY 1 - NEGATIVE MAMMOGR AM Brine Fagan MD cc: Radiology Jailene Cho MD Jailene Cho MD RAD_BI documented in this encounter Visit Diagnoses Not on filedocumented in this encounter Care Teams Label Stamper Relationship Specialty Start Date End Date Jailene Cho MD PCP - General 01/02/1999 documented as of this encounter
--- OUTSIDE RECORDS SUMMARY | 2022-01-29 17:56 | XMS_ITS | Encounter Summary ---
:1960 Author Organization [facility] Address [address] [place] [address] Care Team Providers Name Role Phone Jailene Cho MD Primary Care Provider Unavailable Reason for Visit Reason Comments SKIN TAGS VIA INTERFACE Encounter Details Date Type Department Care Team Description 03/20/1999 Office Visit [facility] Joni Talbert MD SKIN DISORDER NOS Medicine [address] [address] [phone] Social History Tobacco Use Types Packs/Day Years Used Date Smoking Tobacco: Never Assessed Sex Assigned at Date Recorded Not on file documented as of this encounter Progress Notes Joni Talbert - 03/20/1999 12:00 AM CDTS: Patient has a little skin tag she wants treated. No other concerns. O: Two large skin tags on the axilla were treated with liquid nitrogen x 2. There were several, small skin tags and a small seborrheic keratosis on the right forehead that were treated with liquid nitrogen. A: Skin lesions. cc: documented in this encounter Plan of Treatment Not on filedocumented as of this encounter Visit Diagnoses Diagnosis Unspecified disorder of skin and subcuta neous tissue documented in this encounter Care Teams Resident Programs Assistant Relationship Specialty Start Date End Date Jailene Cho MD PCP - General 01/02/1999 documented as of this encounter
--- OUTSIDE RECORDS SUMMARY | 2022-01-29 17:56 | XMS_ITS | Encounter Summary ---
:1960 Author Organization [employer] Address [address] [place] [address] Care Team Providers Name Role Phone Jailene Cho MD Primary Care Provider Unavailable Encounter Details Date Type Department Care Team Description 04/06/1998 Office Visit [place] Dank Myers VACCINE FOR STREP [facility]LA BROOTEN PNEUMONIAE [address] [place], [place] [address] [place] [address] [place] [address] Social History Tobacco Use Types Packs/Day Years Used Date Smoking Tobacco: Never Assessed Sex Assigned at Date Recorded Not on file documented as of this encounter Plan of Treatment Not on filedocumented as of this encounter Visit Diagnoses Diagnosis Need for prophylactic vaccination agains t Streptococcus pneumoniae (pneumococcus) Need for prophylactic vaccination agains t streptococcus pneumoniae (pneumococcus) documented in this encounter Care Teams Barber Tool Sharpener Relationship Specialty Start Date End Date Jailene Cho MD PCP - General 01/02/1999 documented as of this encounter
--- OUTSIDE RECORDS SUMMARY | 2022-01-29 17:56 | XMS_ITS | Encounter Summary ---
:1960 Author Organization [employer] Address [address] [place] [address] Care Team Providers Name Role Phone Olamide Rodney MD Primary Care Provider Encounter Details Date Type Department Care Team Description 12/12/1999 Orders Only PARAM Sylvester, Corinna Brooke MD [address] [place], [place] [address] [place], [place] [phone] (Wo rk) Social History Tobacco Use Types Packs/Day Years Used Date Smoking Tobacco: Never Assessed Sex Assigned at Date Recorded Not on file documented as of this encounter Plan of Treatment Not on filedocumented as of this encounter Procedures Procedure Name Priority Date/Time Associated Comments Diagnosis COMPLETE BLOOD Routine 12/12/1999 2:29 PM Results for this COUNT-NO DIFF CDT procedure are in the results section. CHOLESTEROL, TOTAL Routine 12/12/1999 2:29 PM Res ults for this AND HDL CDT procedure are i n the results section. TSH, SENSITIVE (WITH Routine 12/12/1999 2:29 PM R esults for this REFLEX) CDT procedure are i n the results section. SODIUM Routine 12/12/1999 2:29 PM Results f or this CDT procedure are i n the results section. POTASSIUM Routine 12/12/1999 2:29 PM Results f or this CDT procedure are i n the results section. GLUCOSE Routine 12/12/1999 2:29 PM Results f or this CDT procedure are i n the results section. CREATININE Routine 12/12/1999 2:29 PM Results f or this CDT procedure are i n the results section. PTT Routine 12/12/1999 2:29 PM Results f or this CDT procedure are i n the results section. INR/PROTIME Routine 12/12/1999 2:29 PM Results f or this CDT procedure are i n the results section. documented in this encounter Results TSH, SENSITIVE (12/12/1999 2:29 PM CDT) athologist Signature TSH 2.54 0.30 - 5.00 [facility] uIU/ml Thyroid Meds No [facility] Specimen Anatomical Collection Method Collection Time Receive d Time (Source) Location / / Volume Laterality 12/12/1999 2:29 PM 0 2:30 CDT PM CDT Corinna Sylvester MD LAB_1 Performing Organization Address [facility] Phon e Number [facility] [employer] [phone] [facility] [address] [place] [phone] SODIUM (12/12/1999 2:29 PM CDT) athologist [facility] Sodium 139 135 - 145 [facility] mmol/L Specimen Anatomical Collection Method Collection Time Receive d Time (Source) Location / / Volume Laterality 12/12/1999 2:29 PM 0 2:30 CDT PM CDT Corinna Slyvester MD LAB_1 Performing Organization Address [facility] Phon e Number [facility] [phone] [facility] [address] [place] [phone] POTASSIUM (12/12/1999 2:29 PM CDT) athologist Signature Potassium 4.3 3.5 - 5.3 [facility] mmol/L Specimen Anatomical Collection Method Collection Time Receive d Time (Source) Location / / Volume Laterality 12/12/1999 2:29 PM 200 0 2:30 CDT PM CDT Corinna Sylvester MD LAB_1 Performing Organization Address City/[facility] Code Phon e Number [facility] [phone] [facility] [address] [address] GLUCOSE - RANDOM < 8HR FASTING) (12/12/1999 2:29 PM CDT) P athologist Signature Glucose 85 65 - 115 [facility] mg/dl Hours Fasting 1.0 hours [facility] Specimen Anatomical Collection Method Collection Time Receive d Time (Source) Location / / Volume Laterality 12/12/1999 2:29 PM 0 2:30 CDT PM CDT Corinna Sylvester MD LAB_1 Performing Organization Address [facility] Phon e Number [facility] [phone] [facility] [address] [place] [phone] CREATININE (12/12/1999 2:29 PM CDT) athologist Signature Creatinine 0.9 0.5 - 1.2 [facility] mg/dl Specimen Anatomical Collection Method Collection Time Receive d Time (Source) Location / / Volume Laterality 12/12/1999 2:29 PM 0 2:30 CDT PM CDT Corinna Sylvester MD LAB_1 Performing Organization Address [facility] Phon e Number [employer] [phone] [facility] [address] [place] [address] [phone] (ABNORMAL) CHOLESTEROL, TOTAL AND HDL (12/12/1999 2:29 PM CDT) Component Value Ref Test Analysis Performed At [facility] gist Range Method Time Signature Cholesterol 205 (H) <200 [facility] mg/dl Cholesterol Result should not be interpreted without [facility] the patient's history of cardiovascular risk factors. HDL 45 >35 [facility] mg/dl Specimen Anatomical Collection Method Collection Time Receive d Time (Source) Location / / Volume Laterality 12/12/1999 2:29 PM 200 0 2:30 CDT PM CDT Corinna Sylvester MD LAB_1 Performing Organization Address City/State/[facility] Phon e Number [employer] [phone] [address] (ABNORMAL) HEMOGRAM/PLTS (12/12/1999 2:29 PM CDT) athologist Signature WBC 10.6 3.6 - 11.0 [facility] k/ul RBC 4.44 4.0 - 5.2 [facility] M/ul Hemoglobin 13.1 12.0 - [facility] 16.0 g/dl HCT 38.5 36.0 - [facility] 46.0 % MCV 86.5 80 - 100 [facility] fl MCH 29.5 26 - 34 pg [facility] MCHC 34.1 32 - 36 % [facility] RDW 15.8 (H) 11.5 - [facility] 14.5 % Platelets 363 150 - 450 [facility] k/ul Specimen Anatomical Collection Method Collection Time Receive d Time (Source) Location / / Volume Laterality 12/12/1999 2:29 PM 0 2:30 CDT PM CDT Corinna Sylvester MD LAB_1 Performing Organization Address [facility] Code Phon e Number [employer] [phone] [address] PTT (12/12/1999 2:29 PM CDT) athologist Signature PTT 22.4 20 - 30 sec [facility] Specimen Anatomical Collection Method Collection Time Receive d Time (Source) Location / / Volume Laterality 12/12/1999 2:29 PM 200 0 2:30 CDT PM CDT Corinna Sylvester MD LAB_1 Performing Organization Address [facility] Phon e Number [employer] [phone] [address] PROTIME (12/12/1999 2:29 PM CDT) athologist Signature Protime 9.6 9.2 - 12.0 [facility] sec Coumadin No [facility] Specimen Anatomical Collection Method Collection Time Receive d Time (Source) Location / / Volume Laterality 12/12/1999 2:29 PM 0 2:30 CDT PM CDT Corinna Sylvester MD LAB_1 Performing Organization Address City/State/ZIP Code Phon e Number [facility] [phone] [facility] [address] [address] documented in this encounter Visit Diagnoses Not on filedocumented in this encounter Care Teams Personnel Coordinator Relationship Specialty Start Date End Date Olamide Rodney MD PCP - General 09/25/10 01/11/21 [address] [place], [place] [address] documented as of this encounter
--- OUTSIDE RECORDS SUMMARY | 2022-01-29 17:56 | XMS_ITS | Encounter Summary ---
:1960 Author Organization [facility] Address [address] [place] [address] Care Team Providers Name Role Phone Olamide Rodney MD Primary Care Provider Encounter Details Date Type Department Care Team Description 06/04/2001 Orders Only Deloris Newman MD [address] [place], [place] [phone] [place] [address] [phone] (Wo rk) Social History Tobacco Use Types Packs/Day Years Used Date Smoking Tobacco: Never Assessed Sex Assigned at Date Recorded Not on file documented as of this encounter Plan of Treatment Not on filedocumented as of this encounter Procedures Procedure Name Priority Date/Time Associated Diagnosis Comme nts PAP TEST, ROUTINE Routine 06/04/2001 8:20 AM Resu lts for this WATERWAY TRAFFIC CHECKER procedure are i n the results section. documented in this encounter Results PAP SMEAR, ROUTINE (06/04/2001 8:20 AM WATERWAY TRAFFIC CHECKER) [facility] Method Time Signature Pap Smear, Referred to [facility]; Separate [facility] Routine Report to Follow Specimen Anatomical Collection Method Collection Time Receive d Time (Source) Location / / Volume Laterality 06/04/2001 8:20 AM 12/18/200 1 WATERWAY TRAFFIC CHECKER 10:03 AM WATERWAY TRAFFIC CHECKER Deloris Chirinos MD LAB_1 Performing Organization Address City/State/ZIP Code Phon e Number [facility] [phone] [facility] [address] [address] documented in this encounter Visit Diagnoses Not on filedocumented in this encounter Care Teams Chemical Pathologist Relationship Specialty Start Date End Date Olamide Rodney MD PCP - General 09/25/10 01/11/21 [address] [place], [place] [address] documented as of this encounter
--- OUTSIDE RECORDS SUMMARY | 2022-01-29 17:56 | XMS_ITS | Encounter Summary ---
:1960 Author Organization [employer] Address [address] [place] [address] Care Team Providers Name Role Phone Jailene Cho MD Primary Care Provider Unavailable Encounter Details Date Type Department Care Team Description 09/07/1997 Office Visit [facility] Corinna Sylvester E PHARYNGITIS(SORE Practice MD Mendy THROAT) [address] [place] [address] [address] [place] [address] [phone] Social History Tobacco Use Types Packs/Day Years Used Date Smoking Tobacco: Never Assessed Sex Assigned at Date Recorded Not on file documented as of this encounter Plan of Treatment Not on filedocumented as of this encounter Visit Diagnoses Diagnosis Acute pharyngitis documented in this encounter Care Teams General Inspector Relationship Specialty Start Date End Date Jailene Cho MD PCP - General 01/02/1999 documented as of this encounter
--- OUTSIDE RECORDS SUMMARY | 2022-01-29 17:56 | XMS_ITS | Encounter Summary ---
:1960 Author Organization [employer] Address [address] [place] [address] Care Team Providers Name Role Phone Danielle Bender MD Primary Care Provider Encounter Details Date Type Department Care Team Description 06/20/2001 Orders Only [facility] Pract [facility] Reid Medrano MD [address] [place] [address] Social History Tobacco Use Types Packs/Day Years Used Date Smoking Tobacco: Never Assessed Sex Assigned at Date Recorded Not on file documented as of this encounter Plan of Treatment Not on filedocumented as of this encounter Visit Diagnoses Not on filedocumented in this encounter Care Teams Food Science Professor Relationship Specialty Start Date End Date Danielle Bender MD PCP - General 04/09/01 08/07/[address] [place] [address] documented as of this encounter
--- OUTSIDE RECORDS SUMMARY | 2022-01-29 17:56 | XMS_ITS | Encounter Summary ---
:1960 Author Organization [facility] Address [address] [place] [address] Care Team Providers Name Role Phone Dank Myers Primary Care Provider Encounter Details Date Type Department Care Team Description 09/07/1997 Notes/Orders Social History Tobacco Use Types Packs/Day Years Used Date Smoking Tobacco: Never Assessed Sex Assigned at Date Recorded Not on file documented as of this encounter Plan of Treatment Not on filedocumented as of this encounter Procedures Procedure Name Priority Date/Time Associated Diagnosis Comme nts STREP GRP A, RAPID Waiting 09/07/1997 8:35 AM Res ults for this SCREEN DISPLAY CARVER procedure are i n the results section. documented in this encounter Results RAPID, GPA STREP SCREEN (WAITING) (09/07/1997 8:35 AM DISPLAY CARVER) [facility] Method Time Signature Patient Home [id number] [employer] Phone # Patient Work [phone] [employer] Phone # Grp A Rapid Negative [facility] Screen Grp A Culture Negative [facility] Final Specimen Anatomical Collection Method Collection Time Receive d Time (Source) Location / / Volume Laterality 09/07/1997 8:35 AM 8 8:36 DISPLAY CARVER AM DISPLAY CARVER Allergy Wb Nurse LAB_1 Performing Organization Address City/State/ZIP Code Phon e Number [facility] [phone] [facility] [address] [address] documented in this encounter Visit Diagnoses Not on filedocumented in this encounter Care Teams Switch Maker Relationship Specialty Start Date End Date Dank Myers PCP - General 04/01/1997 01/01/[address] [address] documented as of this encounter
--- OUTSIDE RECORDS SUMMARY | 2022-01-29 17:56 | XMS_ITS | Encounter Summary ---
:1960 Author [facility] Address [address] [place] [address] Care Team Providers Name Role Phone Jailene Cho MD Primary Care Provider Unavailable Encounter Details Date Type Department Care Team Description 11/16/1997 Office Visit [facility] TMD Arsen, Gab MYALGIA AND MYOSITIS NOS; 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
--- OUTSIDE RECORDS SUMMARY | 2022-01-29 17:56 | XMS_ITS | Encounter Summary ---
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 She's been doing much better, breathing much better. She doesn't like the idea of being on Azmacort all the time, but she does like the fact that she feels so much better and can breath easier. She has also some pain behind her right knee that has been going on for the last week. She said it was smaller and less tender a week ago. She says that she has had no shortness of breath, no fever, no redness, no swelling of her ankle. It does feel kind of warm to her. She was seen in urgent care last night and had a negative ultrasound. OBJECTIVE: She's alert, no acute distress. Blood pressure 130/80. Pulse of 76. Lungs are clear to auscultation. Heart; regular rate and rhythm without murmurs or gallops. Right knee; she has a cord like area that follows along with the vein just behind the knee. It is swollen, tender, slightly erythematous. Her peak flows are 510 and 540. ASSESSMENT: Asthma and superficial thrombophlebitis. PLAN: I'm going to have the patient continue on the Azmacort for at least another month, then we might try her off of it again and see how she does as long as she's not having to use the albuterol a lot. For the superficial thrombophlebitis, I've placed her on ibuprofen 600 mg po tid. I've asked her to warm pack the area at least 3 times a day. I'm going to have her off of work for the next 24 hours because she tends to sit in a chair and it compresses that area to see if we can give her some relief and then I will have her follow up with me as needed. I told her to call if she's having problems. I may switch her to Indocin if necessary. cc: LOPMENT ADMINISTRATOR documented in this encounter Plan of Treatment Not on filedocumented as of this encounter Visit Diagnoses Diagnosis Phlebitis and thrombophlebitis of unspec ified site Unspecified asthma(493.90) ([facility]) Unspecified asthma documented in this encounter Care Teams Meat Selector Relationship Specialty Start Date End Date Shaila Cast MD PCP - General 07/21/00 04/08/[address] [place] [address] documented as of this encounter
--- OUTSIDE RECORDS SUMMARY | 2022-01-29 17:56 | XMS_ITS | Encounter Summary ---
:1960 Author Organization [employer] Address [address] [place] [address] Care Team Providers Name Role Phone Olamide Rodney MD Primary Care Provider Encounter Details Date Type Department Care Team Description 06/04/2001 Orders Only Deloris Newman MD [address] [place], [place] [address] [place] [address] (Wo rk) Social History Tobacco Use Types Packs/Day Years Used Date Smoking Tobacco: Never Assessed Sex Assigned at Date Recorded Not on file documented as of this encounter Plan of Treatment Not on filedocumented as of this encounter Procedures Procedure Name Priority Date/Time Associated Comments Diagnosis COMPLETE BLOOD Routine 06/04/2001 9:29 AM Results for this COUNT-NO DIFF [facility] procedure are in the results section. FREE T4 Routine 06/04/2001 9:29 AM Results f or this [facility] procedure are i n the results section. LIPID PANEL, FAST > Routine 06/04/2001 9:29 AM Re sults for this 12 HOUR [facility] procedure are i n the results section. TSH, SENSITIVE (WITH Routine 06/04/2001 9:29 AM R esults for this REFLEX) [facility] procedure are i n the results section. ALT (SGPT) Routine 06/04/2001 9:29 AM Results f or this [facility] procedure are i n the results section. AST Routine 06/04/2001 9:29 AM Results f or this [facility] procedure are i n the results section. SODIUM Routine 06/04/2001 9:29 AM Results f or this [facility] procedure are i n the results section. GLUCOSE - FASTING > Routine 06/04/2001 9:29 AM Re sults for this 8 HRS FASTING [facility] procedure are in the results section. CREATININE Routine 06/04/2001 9:29 AM Results f or this [facility] procedure are i n the results section. BILIRUBIN, TOTAL Routine 06/04/2001 9:29 AM Resul ts for this [facility] procedure are i n the results section. UA MICRO Routine 06/04/2001 9:29 AM Results f or this [facility] procedure are i n the results section. UA MICRO IF Routine 06/04/2001 9:29 AM Results f or this [facility] procedure are i n the results section. documented in this encounter Results UA MICRO (06/04/2001 9:29 AM DISTRICT FIRE CHIEF) athologist Signature RBC'S 0-3 0 - 3 /hpf [facility] WBC'S 0-2 0 - 5 /hpf [facility] Epith, Occ /hpf [facility] Squamous Bact Occ [facility] Casts 0 /lpf [facility] Other Mod [facility] Mucous Specimen Anatomical Collection Method Collection Time Receive d Time (Source) Location / / Volume Laterality 06/04/2001 9:29 AM 1 9:30 [facility] AM [facility] Deloris Chirinos MD LAB_1 Performing Organization Address City/State/ZIP Code Phon e Number [facility] [phone] [facility] [address] [phone] (ABNORMAL) UA MICRO IF (06/04/2001 9:29 AM DISTRICT [facility] CHIEF) athologist Signature Appr Yellow [facility] Appr Clear [facility] Sp Gr 1.026 1.005 - [facility] 1.030 Leuk Neg [facility] Nitr Neg [facility] pH 5.0 4.5 - 8.0 [facility] Prot Neg mg/dl [facility] Gluc Neg mg/dl [facility] Ket Tr (A) mg/dl [facility] Urob 0.2 0.2 - 1.0 [facility] EU/dl Bili Neg [facility] Blood Tr (A) [facility] Specimen Anatomical Collection Method Collection Time Receive d Time (Source) Location / / Volume Laterality 06/04/2001 9:29 AM 1 9:30 [facility]RE CHIEF AM [facility]IEF Deloris Chirinos MD LAB_1 Performing Organization Address [facility] Phon e Number [facility] [employer] [phone] [facility] [address] [place] [phone] SODIUM (06/04/2001 9:29 AM [facility] CHIEF) athologist Signature Sodium 139 135 - 145 [facility] mmol/L Specimen Anatomical Collection Method Collection Time Receive d Time (Source) Location / / Volume Laterality 06/04/2001 9:29 AM 1 9:30 DISTRICT FIRE CHIEF AM [facility]F Deloris Chirinos MD LAB_1 Performing Organization Address [facility] Phon e Number [facility] [employer] [phone] [phone] (ABNORMAL) GLUCOSE - FASTING > 8 HRS FASTING (06/04/2001 9:29 AM DISTRICT FIRE CHIEF) Analysis Performed At [facility] Time Signature Glucose 142 (H) 70 - 110 [facility] mg/dl Hours Fasting 13 hours [facility] Specimen Anatomical Collection Method Collection Time Receive d Time (Source) Location / / Volume Laterality 06/04/2001 9:29 AM 1 9:30 DISTRICT FIRE CHIEF AM [facility]RE [facility]IEF Deloris Chirinos MD LAB_1 Performing Organization Address [facility] Phon e Number [facility] [employer] [phone] [phone] CREATININE (06/04/2001 9:29 AM DISTRICT FIRE CHIEF) P athologist Signature Creatinine 0.8 0.5 - 1.2 [facility] mg/dl Specimen Anatomical Collection Method Collection Time Receive d Time (Source) Location / / Volume Laterality 06/04/2001 9:29 AM 1 9:30 DISTRICT FIRE CHIEF AM [facility]RE CHIEF Deloris Chirinos MD LAB_1 Performing Organization Address City/[facility]/ZIP [facility] Phon e Number [facility] [employer] [phone] [phone] CHOLESTEROL LIPID PANEL FAST >12HR FAST (06/04/2001 9:29 AM DISTRICT FIRE CHIEF) athologist Signature Cholesterol 197 <200 mg/dl [facility] Triglyceride 117 <200 mg/dl [facility] HDL 43 >35 mg/dl [facility] LDL, Calc. 131 mg/dl [facility] Hours Fasting 13 hours [facility] Specimen Anatomical Collection Method Collection Time Receive d Time (Source) Location / / Volume Laterality 06/04/2001 9:29 AM 1 9:30 DISTRICT FIRE CHIEF AM [facility]RE CHIEF Deloris Chirinos MD LAB_1 Performing Organization Address [facility] Phon e Number [facility] [employer] [phone] [phone] BILI - TOTAL (06/04/2001 9:29 AM DISTRICT FIRE CHIEF) athologist Signature Bilirubin, 0.5 0.2 - 1.2 [facility] Total mg/dl Specimen Anatomical Collection Method Collection Time Receive d Time (Source) Location / / Volume Laterality 06/04/2001 9:29 AM 1 9:30 DISTRICT FIRE CHIEF AM [facility]RE [facility]IEF Deloris Chirinos MD LAB_1 Performing Organization Address City/[facility] Phon e Number [facility] [employer] [phone] [phone] AST (SGOT) (06/04/2001 9:29 AM DISTRICT FIRE CHIEF) athologist Signature AST (SGOT) 43 <45 U/L [facility] Specimen Anatomical Collection Method Collection Time Receive d Time (Source) Location / / Volume Laterality 06/04/2001 9:29 AM 1 9:30 [facility] CHIEF AM [facility] Deloris Chirinos MD LAB_1 Performing Organization Address City/State/ZIP Code Phon e Number [facility] [phone] [facility] [address] [phone] ALT (SGPT) (06/04/2001 9:29 AM DISTRICT FIRE CHIEF) athologist Signature ALT (SGPT) 32 0 - 55 U/L [facility] Specimen Anatomical Collection Method Collection Time Receive d Time (Source) Location / / Volume Laterality 06/04/2001 9:29 AM 1 9:30 DISTRICT FIRE CHIEF AM [facility]F Deloris Chirinos MD LAB_1 Performing Organization Address [facility] Phon e Number [employer] [facility] [phone] [facility] [address] [place] [phone] FREE T4 (06/04/2001 9:29 AM DISTRICT FIRE CHIEF) athologist Signature T4, Free 1.1 0.9 - 1.8 [facility] ng/dl Meds No [facility] Specimen Anatomical Collection Method Collection Time Receive d Time (Source) Location / / Volume Laterality 06/04/2001 9:29 AM 1 9:30 DISTRICT FIRE CHIEF AM [facility]RE CHIEF Deloris Chirinos MD LAB_1 Performing Organization Address City/[facility]/ZIP Code Phon e Number [employer] [facility] [facility] [phone] [facility] [address] [place] [phone] TSH, SENSITIVE (06/04/2001 9:29 AM DISTRICT FIRE CHIEF) athologist Signature TSH 1.92 0.30 - 5.00 [facility] uIU/ml Thyroid Meds No [facility] Specimen Anatomical Collection Method Collection Time Receive d Time (Source) Location / / Volume Laterality 06/04/2001 9:29 AM 1 9:30 DISTRICT FIRE CHIEF AM DISTRICT FIRE CHIEF Deloris Chirinos MD LAB_1 Performing Organization Address City/[facility]/ZIP Code Phon e Number [employer] [phone] [facility] [address] [phone] (ABNORMAL) HEMOGRAM/PLTS (06/04/2001 9:29 AM DISTRICT FIRE CHIEF) P athologist Signature WBC 8.9 3.6 - 11.0 [facility] k/ul RBC 4.41 4.0 - 5.2 [facility] M/ul Hemoglobin 13.3 12.0 - [facility] 16.0 g/dl HCT 39.3 36.0 - [facility] 46.0 % MCV 89.1 80 - 100 [facility] fl MCH 30.1 26 - 34 pg [facility] MCHC 33.7 32 - 36 % [facility] RDW 14.8 (H) 11.5 - [facility] 14.5 % Platelets 363 150 - 450 [facility] k/ul Specimen Anatomical Collection Method Collection Time Receive d Time (Source) Location / / Volume Laterality 06/04/2001 9:29 AM 1 9:30 DISTRICT FIRE CHIEF AM [facility]RE CHIEF Deloris Chirinos MD LAB_1 Performing Organization Address City/State/ZIP Code Phon e Number [facility] [phone] [phone] documented in this encounter Visit Diagnoses Not on filedocumented in this encounter Care Teams Supervising Airplane Pilot Relationship Specialty Start Date End Date Olamide Rodeny MD PCP - General 09/25/10 01/11/21 [address] [place] [address] documented as of this encounter
--- OUTSIDE RECORDS SUMMARY | 2022-01-29 17:56 | XMS_ITS | Encounter Summary ---
:1960 Author Organization [facility] Address [address] [place] [address] Care Team Providers Name Role Phone Olamide Rodney MD Primary Care Provider Encounter Details Date Type Department Care Team Description 06/21/2001 Orders Only [facility] [address] [place], [place] [address] Social History Tobacco Use Types Packs/Day Years Used Date Smoking Tobacco: Never Assessed Sex Assigned at Date Recorded Not on file documented as of this encounter Plan of Treatment Not on filedocumented as of this encounter Procedures Procedure Name Priority Date/Time Associated Diagnosis Comme nts INR/PROTIME Waiting 06/21/2001 8:51 AM Results f or this [employer] [facility] procedure are i n the results section. COMPLETE BLOOD Waiting 06/21/2001 8:51 AM Results for this COUNT-NO DIFF [employer] [facility] procedure are in the results section. documented in this encounter Results PROTIME (06/21/2001 8:51 AM [employer] [facility]) [facility] Method Time Signature Protime 9.4 8.0 - [facility] 12.5 sec Protime Performed at [facility] INR 1.01 [facility] INR For stable oral anticoagulants, the INR [facility] therapeutic range is 2.0-4.5. Performed at [facility] Specimen Anatomical Collection Method Collection Time Receive d Time (Source) Location / / Volume Laterality 06/21/2001 8:51 AM 1 8:52 [employer] [facility] AM [employer] [facility] Nurse Spucc LAB_1 Performing Organization Address [facility] Phon e Number [facility] [phone] [phone] (ABNORMAL) HEMOGRAM/PLTS (06/21/2001 8:51 AM [employer] [facility]) P athologist Signature WBC 8.5 3.6 - 11.0 [facility] k/ul RBC 4.65 4.0 - 5.2 [facility] M/ul Hemoglobin 13.6 12.0 - [facility] 16.0 g/dl HCT 40.3 36.0 - [facility] 46.0 % MCV 86.6 80 - 100 [facility] fl MCH 29.3 26 - 34 pg [facility] MCHC 33.9 32 - 36 % [facility] RDW 14.9 (H) 11.5 - [facility] 14.5 % Platelets 282 150 - 450 [facility] k/ul Specimen Anatomical Collection Method Collection Time Receive d Time (Source) Location / / Volume Laterality 06/21/2001 8:51 AM 1 8:52 [employer] [facility] AM [employer] [facility] Nurse Spucc LAB_1 Performing Organization Address City/[facility] Code Phon e Number [facility] [phone] [phone] documented in this encounter Visit Diagnoses Not on filedocumented in this encounter Care Teams Switchboard Clerk Relationship Specialty Start Date End Date Olamide Rodney MD PCP - General 09/25/10 01/11/21 [address] [place] [address] documented as of this encounter
--- OUTSIDE RECORDS SUMMARY | 2022-01-29 17:56 | XMS_ITS | Encounter Summary ---
:1960 Author Organization [employer] Address [address], [place] [address] Care Team Providers Name Role Phone Danielle Bender MD Primary Care Provider Encounter Details Date Type Department Care Team Description 06/04/2001 Office Visit [place] Deloris Chirinos, GYNECO LOGIC EXAMINATION; Internal Medicine OBESITY NOS; [address] [facility] [address] [facility] DEPRESSIVE DISORDER NOS; [place], [place] ASTHMA , UNSPECIFIED; [phone] SCREENING-ENDOC/NUT/MET NEC; [phone] PREVENTIVE CARE EXAM; (Work) SCREEN DIABETES MELLITUS; ABNORMAL CLINICAL FINDING NEC; SCREENING MAL N EOP-CERVIX Social History Tobacco Use Types Packs/Day Years Used Date Smoking Tobacco: Never Assessed Sex Assigned at Date Recorded Not on file documented as of this encounter Progress Notes Deloris Chirinos - 06/04/2001 12:00 AM CSTS: 40-year-old woman in today for preventive health care. She is a new patient to me, also. PAST MEDICAL HISTORY: Of mild asthma, obesity. She has had corrective eye surgery in 1995. History of depression in the past. She has also had irregular menstrual cycles and is on control pills to help regulate them. She has no known drug allergies. CURRENTLY TAKES: Lo/Ovral control pills, Zoloft at 50 mg a day, Azmacort one to two puffs every day, and albuterol inhaler as needed. FAMILY HISTORY: Significant for mother with colon cancer at age 62, one brother with hypothyroidism. SOCIAL HISTORY: She is single. 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 She is a nonsmoker. REVIEW OF SYSTEMS: Patient, in general, is feeling well. Her asthma has been under good control. She has had one recent cold. She is working on an exercise program and is concerned that her weight has gone up more in the last few years. Her menstrual cycles are more regular on control pills. Denies any bowl or urinary complaints. O: ON PHYSICAL EXAM: She is 5' 5-4, weight 324 pounds, pulse 80, blood pressure 122/82. Obese middle-aged woman. She has some alopecia noted, thinning of the front of her scalp and her hair, which is long standing for her. Her EYES, conjunctiva are not injected. EARS, the tympanic membranes, are clear. OROPHARYNX, clear. NECK, is supple. She numerous skin tags around her neck bilaterally, which are not new for her. No thyromegaly. LUNGS, are clear to auscultation without any wheezing. HEART tones, regular rate and rhythm, S1, S2, without murmur. BREAST exam, no lumps, lesions, nipple discharge bilaterally. ABDOMEN, obese and nontender. PELVIC exam, external genitalia normal. Patient has much excess tissue down there. Tried several speculums in order to see patient's cervix. Finally with a moderate size speculum and on deep penetration was able to see a small posterior cervix but I do believe did not get a very good look at it. A pap smear, though, was done at that time of that general posterior area. I could also not palpate her cervix with my finger, it was so deep. So, my internal exam was not a very good one because of her adiposity. She had no pain on palpation, though. I saw no other vaginal growths. RECTAL exam, was not done. LOWER EXTREMITIES, no clubbing, cyanosis, or edema. A/P: 1. Health care maintenance. Patient is up-to-date on immunizations and did get a pneumonia vaccination in 1997. Pap smear is done today. She will be scheduled for a mammogram. Patient is fasting and will have a full lipid profile done today besides thyroid stimulating hormone and complete blood count. I will notify patient of results. Patient is also noted in the past to have some borderline elevated fasting blood glucose and we will re-evaluate that today. Patient is instructed to do self breast exam on a monthly basis. 2. Depression. Patient is to continue on her 50 mg Zoloft. She has tried weaning it off in the past and she has had to go back on it. 3. Asthma. Patient's symptoms stable, and she is to continue on two puffs either once of twice daily and albuterol as rescue medication. 4. Irregular menstrual cycles, probably related also to her obesity. Patient doing will on Lo/Ovral control pills and we will continue that. 5. Skin tags. Liquid nitrogen treatment is used on the multiple skin tags on her neck today to help [place] then up. 6. Obesity. Patient to continue to work on weight [place] and her exercise program. Her goal weight is 250 pounds. IN SUMMARY: New patient visit. Preventive health care visit. Obesity. Depression. Mild asthma. cc: GER IN TRAINING documented in this encounter Plan of Treatment Not on filedocumented as of this encounter Visit Diagnoses Diagnosis Gynecological examination Obesity, unspecified ([facility]) Obesity, unspecified Depressive disorder, not elsewhere class ified Unspecified asthma(493.90) ([facility]) Unspecified asthma Screening for other and unspecified endo crine, nutritional, metabolic and immunity disorders Routine general medical examination at [facility] Routine general medical examination at [facility] Screening for diabetes mellitus Other abnormal clinical finding Screening for malignant neoplasm of the cervix documented in this encounter Care Teams Sole Skiver Relationship Specialty Start Date End Date Danielle Bender MD PCP - General 04/09/01 08/07/10 [address] [place] [address] documented as of this encounter
--- OUTSIDE RECORDS SUMMARY | 2022-01-29 17:56 | XMS_ITS | Encounter Summary ---
:1960 Author Organization [employer] Address [address] [place] [address] Care Team Providers Name Role Phone Jailene Cho MD Primary Care Provider Unavailable Encounter Details Date Type Department Care Team Description 03/02/1998 Office Visit [place] [facility] Jailene Cho MD BRONCHITIS NOS Medicine [address] [place] [address] Social History Tobacco Use Types Packs/Day Years Used Date Smoking Tobacco: Never Assessed Sex Assigned at Date Recorded Not on file documented as of this encounter Progress Notes Jailene Cho - 03/02/1998 12:00 AM CDTS: The patient is a middle aged white female with asthma complaining of cough productive of yellowish mucous over the past couple of days. No fevers or chills. She has had a low grade temperature only. She has a history of mild asthma and she takes an occasional inhaler, no wheezing. O: She has scattered rhonchi throughout the chest. A: Acute bronchitis with underlying asthma. P: I have recommended that patient start on Amoxicillin 250 three times a day and follow-up as needed. cc: documented in this encounter Plan of Treatment Not on filedocumented as of this encounter Visit Diagnoses Diagnosis Bronchitis, not specified as acute or ch ronic documented in this encounter Care Teams Roving Teller Relationship Specialty Start Date End Date Jailene Cho MD PCP - General 01/02/1999 documented as of this encounter
--- OUTSIDE RECORDS SUMMARY | 2022-01-29 17:56 | XMS_ITS | Encounter Summary ---
:1960 Author Organization [employer] Address [address] [place] [address] Care Team Providers Name Role Phone Zzdeclined, Primary Care Provid Primary Care Provider Candace oden Reason for Visit Reason Comments Influenza (Flu) VIA INTERFACE Encounter Details Date Type Department Care Team Description 07/08/2000 Office Visit Nicholas Klein Shaila Cast, ASTHMA W /O STATUS tongsman ASTHMATICUS 1430 [facility] [address] [place], [place] [id number] Social History Tobacco Use Types Packs/Day Years Used Date Smoking Tobacco: Never Assessed Sex Assigned at Date Recorded Not on file documented as of this encounter Progress Notes Shaila Cast - 07/08/2000 12:00 AM CSTSUBJECTIVE: Patient comes in for cough for 8 days. She's had some slight runny nose, no fever or chills though she notes that she has an elevated temperature now. She's had no nausea or vomiting. She's not coughing anything up. She's coughing to the point of almost throwing up, and at one point this morning, it was slightly blood-tinged. PAST MEDICAL HISTORY: Mild asthma, never had to be hospitalized for asthma. She doesn't think her inhaler is helping her now and she's avoiding using it. She does have a Maxair inhaler. OBJECTIVE: She's alert in no acute distress. Blood pressure 120/80, temperature 96, pulse 84. Peak flow of 510. Tympanic membranes are pearly. OP is clear. Mucous membranes moist. Neck supple. Lungs: Expiratory wheezes throughout. Heart regular rate and rhythm without murmurs or gallops. ASSESSMENT: Asthma. PLAN: Will start patient on Azmacort 2 puffs bid and encouraged her to use her Maxair inhaler as needed. Also given Benadryl with codeine to suppress the cough at night so she can sleep. I'll have her follow up if she's not getting better. cc: RAL PRACTITIONER documented in this encounter Plan of Treatment Not on filedocumented as of this encounter Visit Diagnoses Diagnosis Unspecified asthma(493.90) ([facility]) Unspecified asthma documented in this encounter Care Teams Labor Arbitrator Relationship Specialty Start Date End Date Kylee, Primary Care Provid PCP - General 01/22/00 07/20/00 documented as of this encounter
--- OUTSIDE RECORDS SUMMARY | 2022-01-29 17:56 | XMS_ITS | Encounter Summary ---
:1960 Author Organization [employer] Address [address] [place] [address] Care Team Providers Name Role Phone Zzdeclined, Primary Care Provid Primary Care Provider Candace oden Reason for Visit Reason Comments LEG PAIN spucc IM Encounter Details Date Type Department Care Team Description 07/20/2000 Telephone Careline Marti Luna RN LEG PAIN (spucc IM) [address] AFTER HOURS CARE [place], [place] [phone] [facility] [phone] [place] [address] Social History Tobacco Use Types Packs/Day Years Used Date Smoking Tobacco: Never Assessed Sex Assigned at Date Recorded Not on file documented as of this encounter Nursing Notes 07/20/2000 11:59 PM COMPILATION CLERK >> MARTI Isaac Jul 20, 2000 5:12 PM >> CALL RECEIVED. Contact: REFERENCE: LEG PAIN - CNG ADULT/OB CNG (c) CONCERN:lump on bk of R knee, painful, noted 1 wk ago, was smaller and less tender, feels like a rid ge, looks like is a vein, is wm to touch, is same as other leg, had legs curled up under her while r eading.no sob,no dyspnea, afebrile, no redeness at site. STAT SYMPTOMS: none per guideline. Location of pain is above; onset was gradual; history: predisposing factors oral contraceptives?. Ankle edema: no; tenderness: yes; warmth: yes; Trauma: no; CMS and color is WNL: yes. Accompanying symptoms: none. PMH:norm healthy-asthma(under control, never hospitalized), overwt. Current medications: yes; bcp's, zoloft, asthmacort. Medication allergies: no. PLAN: ucc. documented in this encounter Plan of Treatment Not on filedocumented as of this encounter Visit Diagnoses Not on filedocumented in this encounter Care Teams Deckhand Shrimp Boat Relationship Specialty Start Date End Date Kylee Primary Care Provid PCP - General 01/22/00 07/20/00 documented as of this encounter
--- OUTSIDE RECORDS SUMMARY | 2022-01-29 17:57 | XMS_ITS | Encounter Summary ---
:1960 Author Organization [employer] Address [address] [place] [address] Care Team Providers Name Role Phone Jailene Cho MD Primary Care Provider Unavailable Encounter Details Date Type Department Care Team Description 04/07/1997 Office Visit Antonio Vidal MD VACCINE FOR INFLUENZA [address] [place] [phone] (Wo rk) Social History Tobacco Use Types Packs/Day Years Used Date Smoking Tobacco: Never Assessed Sex Assigned at Date Recorded Not on file documented as of this encounter Plan of Treatment Not on filedocumented as of this encounter Visit Diagnoses Diagnosis VACCINE FOR INFLUENZA documented in this encounter Care Teams Emergency Dispatcher Relationship Specialty Start Date End Date Jailene hCo MD PCP - General 01/02/1999 documented as of this encounter
--- OUTSIDE RECORDS SUMMARY | 2022-01-29 17:57 | XMS_ITS | Encounter Summary ---
:1960 Author Organization [employer] Address [address] [place] [address] Care Team Providers Name Role Phone Jailene Cho MD Primary Care Provider Unavailable Encounter Details Date Type Department Care Team Description 12/30/1996 Office Visit [facility] JULI Vidal NG CHANGE Practice MD Tio SUTURE/STAPLE REMOVAL 1430 [facility] [address] [place] [address] [phone] Social History Tobacco Use Types Packs/Day Years Used Date Smoking Tobacco: Never Assessed Sex Assigned at Date Recorded Not on file documented as of this encounter Plan of Treatment Not on filedocumented as of this encounter Visit Diagnoses Diagnosis Attention to dressings and sutures documented in this encounter Care Teams Medical Communication Specialist Relationship Specialty Start Date End Date Jailene Cho MD PCP - General 01/02/1999 documented as of this encounter
--- OUTSIDE RECORDS SUMMARY | 2022-01-29 17:57 | XMS_ITS | Encounter Summary ---
:1960 Author Organization [email or web address] Address [address] [place] [address] Care Team Providers Name Role Phone Jailene Cho MD Primary Care Provider Unavailable Encounter Details Date Type Department Care Team Description 12/20/1996 Office Visit Bela Klein Dank Myers BENIGN SYLVIA SKIN ARM; Family Practice [place] BENIGN SYLVIA SKIN TRUNK [address] [place] [phone] [place] [address] Social History Tobacco Use Types Packs/Day Years Used Date Smoking Tobacco: Never Assessed Sex Assigned at Date Recorded Not on file documented as of this encounter Progress Notes Dank Myers - 12/20/1996 12:00 AM CDTS: 35 y/o female returns for elective excision of a persisting lipoma over the right elbow. Also to have a few skin tags removed from the right side of her neck and the right axilla. O: Over the olecranon process of right elbow there is about a 4 centimeter by 2 centimeter diameter area of soft tissue fullness, suggestive of lipoma. It is however not very well defined. Before proceeding with excision I explained to her that this did not appear as distinct as most lipomas and that I might not be able to remove it all. Being aware that she will be left with a permanent scar she still desired to have the area explored to definitively define the nature of the mass. Under xylocaine with epinephrine local anesthesia through a 2 centimeter incision the area was explored and fairly undefined fatty tissue was removed. The wound was then closed with running 5-0 nylon sutures. Skin tags on the right side of her neck and in the right axilla were all frozen x 2 with liquid nitrogen. A: Excision of lipoma. Skin tags treated with liquid nitrogen. P: Return in ten days for suture removal. She is aware that there is a risk of recurrence as I don't think the entire lipoma was excised. She will follow-up in two weeks if there is any residual of the skin tags. cc: documented in this encounter Plan of Treatment Not on filedocumented as of this encounter Visit Diagnoses Diagnosis Benign neoplasm of skin of upper limb, i ncluding shoulder Benign neoplasm of skin of trunk, except scrotum documented in this encounter Care Teams Labeling Specialist Relationship Specialty Start Date End Date Jailene Cho MD PCP - General 01/02/1999 documented as of this encounter
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
--- OUTSIDE RECORDS SUMMARY | 2022-01-29 17:57 | XMS_ITS | Encounter Summary ---
:1960 Author Organization [employer] Address [address] [place] [address] Care Team Providers Name Role Phone Found, No Pcp Primary Care Provider Unavailable Encounter Details Date Type Department Care Team Description 03/21/1997 Orders Only Kelly Mcneal, FOSTER, SUPERVISOR [employer]RIX Social History Tobacco Use Types Packs/Day Years Used Date Smoking Tobacco: Never Assessed Sex Assigned at Date Recorded Not on file documented as of this encounter Plan of Treatment Not on filedocumented as of this encounter Visit Diagnoses Not on filedocumented in this encounter Care Teams Upholsterer Helper Relationship Specialty Start Date End Date Found, No Pcp, PCP - General 08/27/21 [address] [place] [address] documented as of this encounter
--- OUTSIDE RECORDS SUMMARY | 2022-01-29 17:57 | XMS_ITS | Encounter Summary ---
:1960 Author Organization [employer] Address [address] [place] [address] Care Team Providers Name Role Phone Jailene Cho MD Primary Care Provider Unavailable Encounter Details Date Type Department Care Team Description 03/14/1997 Orders Only [facility] TAMELA Mcneal [facility] FOSTER Mendoza, NEOP-BREAST [address] [place] [address] Social History Tobacco Use Types Packs/Day Years Used Date Smoking Tobacco: Never Assessed Sex Assigned at Date Recorded Not on file documented as of this encounter Procedure Notes Dayo Bah V - 03/14/1997 12:00 AM CDTAssociated Order(s): MAMMOGRAM, SCREENING CLINICAL DATA: SCREEN INTERPRETATION: BILATERAL MAMMOGRAM 03/14/97: No evidence for malignancy. ACR BIRADS CATEGORY 1 - NEGATIVE MAMMOGRAM Dayo Bah MD cc: Radiology MARÍA Dobbs documented in this encounter Plan of Treatment Not on filedocumented as of this encounter Procedures Procedure Name Priority Date/Time Associated Diagnosis Comme nts MAMMOGRAM, 03/14/1997 12:00 AM Screening Mal Results for this SCREENING CDT Neop-Breast procedure are i n the results section. documented in this encounter Results MAMMOGRAM, SCREENING (03/14/1997 12:00 AM CDT) Anatomical Region Laterality Modality Breast Other Specimen (Source) Anatomical Location Collection Method / Collectio n Time Received Time / Laterality Volume 03/14/1997 Transcriptions Dayo Bah V - 03/14/1997 12:00 AM CDT CLINICAL DATA: SCREEN INTERPRETATION: BILATERAL MAMMOGRAM 02/22 : No evidence for malignancy. ACR BIRADS CATEGORY 1 - NEGATIVE MAMMOGR AM Dayo Bah MD cc: Radiology MARÍA Dobbs Kelly Mcneal HYDROCHLORIC ACID OPERATOR, ELECTRONIC ORGAN MECHANIC RAD_BI documented in this encounter Visit Diagnoses Diagnosis Screening for malignant neoplasm of the breast Breast screening, unspecified documented in this encounter Care Teams It Security Engineer Relationship Specialty Start Date End Date Jailene Cho MD PCP - General 01/02/1999 documented as of this encounter
--- OUTSIDE RECORDS SUMMARY | 2022-01-29 17:57 | XMS_ITS | Encounter Summary ---
:1960 Author Organization [facility] Address [address] [place] [address] Care Team Providers Name Role Phone Unavailable Primary Care Provider Unavailable Encounter Details Date Type Department Care Team Description 01/27/1997 Notes/Orders Kelly Mcneal, FOSTER, HAUNTED HISTORY TOUR GUIDE Social History Tobacco Use Types Packs/Day Years Used Date Smoking Tobacco: Never Assessed Sex Assigned at Date Recorded Not on file documented as of this encounter Plan of Treatment Not on filedocumented as of this encounter Procedures Procedure Name Priority Date/Time Associated Diagnosis Comme nts LIPID PANEL, FAST > Routine 01/27/1997 9:10 AM Re sults for this 12 HOUR CDT procedure are i n the results section. TSH, SENSITIVE Routine 01/27/1997 9:10 AM Results for this (WITH REFLEX) CDT procedure are in the results section. GLUCOSE - FASTING > Routine 01/27/1997 9:10 AM Re sults for this 8 HRS FASTING CDT procedure are in the results section. CBC HEME PANEL Routine 01/27/1997 9:10 AM Results for this CDT procedure are i n the results section. documented in this encounter Results TSH, SENSITIVE (01/27/1997 9:10 AM CDT) [facility] Method Time Signature TSH 3.22 0.30 - [facility] 5.00 uIU/ml TSH PLEASE NOTE CHANGE IN EXPECTED VALUES [facility] Please Note Change in Thyroid Ordering Protocol Effective 12/06/96 Thyroid Meds No [facility] Specimen Anatomical Collection Method Collection Time Receive d Time (Source) Location / / Volume Laterality 01/27/1997 9:10 AM 7 9:11 CDT AM CDT Kelly Mcneal APRN, CNP LAB_1 Performing Organization Address [facility] Phon e Number [facility] [employer] [phone] [phone] GLUCOSE - FASTING > 6 HRS FASTING (01/27/1997 9:10 AM CDT) athologist Signature Glucose 88 70 - 115 [facility] mg/dl Hours Fasting 12 hours [facility] Specimen Anatomical Collection Method Collection Time Receive d Time (Source) Location / / Volume Laterality 01/27/1997 9:10 AM 7 9:11 CDT AM CDT Kelly Elizabet HUTCHISON CNP LAB_1 Performing Organization Address [facility] Phon e Number [employer] [phone] [phone] FASTING LIPID PANEL (>12HR FAST) INCL:CHOL,HDL,TRIG,LDL(CALC (01/27/1997 9:10 AM CDT) athologist Signature Cholesterol 182 <240 mg/dl [facility] Triglyceride 123 <300 mg/dl [facility] HDL 43 >35 mg/dl [facility] LDL, Calc. 114 mg/dl [facility] Hours Fasting 12 hours [facility] Specimen Anatomical Collection Method Collection Time Receive d Time (Source) Location / / Volume Laterality 01/27/1997 9:10 AM 7 9:11 CDT AM CDT Kelly Elizabet HUTCHISON CNP LAB_1 Performing Organization Address [facility] Phon e Number [facility] [employer] [phone] [phone] CBC HEME PANEL (01/27/1997 9:10 AM CDT) athologist Signature WBC 7.1 4.2 - 10.0 [facility] k/ul RBC 4.62 3.8 - 5.4 [facility] M/ul Hemoglobin 13.8 12 - 16 [facility] g/dl HCT 41.1 35 - 46 % [facility] MCV 89 80 - 98 fl [facility] MCH 29.9 27 - 34 pg [facility] MCHC 33.6 32 - 36 % [facility] Platelets 302 150 - 450 [facility] k/ul Specimen Anatomical Collection Method Collection Time Receive d Time (Source) Location / / Volume Laterality 01/27/1997 9:10 AM 7 9:11 CDT AM CDT Kelly Mcneal APRN, CNP LAB_1 Performing Organization Address City/State/ZIP Code Phon e Number [facility] [phone] [phone] documented in this encounter Visit Diagnoses Not on filedocumented in this encounter
--- OUTSIDE RECORDS SUMMARY | 2022-01-29 17:57 | XMS_ITS | Encounter Summary ---
:1960 Author Organization [employer] Address [address] [place] [address] Care Team Providers Name Role Phone Jailene Cho MD Primary Care Provider Unavailable Encounter Details Date Type Department Care Team Description 11/01/1996 Office Visit [facility] D[facility] LIPOMA NOS; Family Practice [facility] [place] VACCINE FOR TETANUS + DIPHTH ERIA [address] [facility] [address] [place] [id number] [place] [address] [place] [address] Social History Tobacco Use Types Packs/Day Years Used Date Smoking Tobacco: Never Assessed Sex Assigned at Date Recorded Not on file documented as of this encounter Progress Notes Dank Myers - 11/01/1996 12:00 AM CDTS: 35-year-old female injured her right arm, falling off a 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 She had a laceration on the right forearm. Since that has healed, she notices a mass in that area. Also some tenderness. O: There is just a pinpoint scar over the mid-portion of the right ulna. In the same area, there is about a 4 mm diameter lipoma. No bony tenderness, full motor strength in the wrist and hand. Full range of motion of the forearm and elbow. A: Lipoma. She may have some resolving muscle strain. P: Routine diphtheria-tetanus booster given today. She will return if the pain persists beyond another month or two or if the lesion increases in size. In either case, would recommend surgical excision of the lipoma. cc: documented in this encounter Plan of Treatment Not on filedocumented as of this encounter Visit Diagnoses Diagnosis Lipoma of unspecified site Need for Td vaccine Need for prophylactic vaccination with t etanus-diphtheria (Td) documented in this encounter Care Teams Lamination Spinner Relationship Specialty Start Date End Date Jailene Cho MD PCP - General 01/02/1999 documented as of this encounter
--- OUTSIDE RECORDS SUMMARY | 2022-01-29 17:57 | XMS_ITS | Encounter Summary ---
:1960 Author Organization [employer] Address [address] [address] Care Team Providers Name Role Phone Jailene Cho MD Primary Care Provider Unavailable Encounter Details Date Type Department Care Team Description 03/21/1997 Office Visit [facility] Elizabet, ACUTE PHARYNGITIS(SORE THROAT); Practice FOSTER Mendoza, ACUTE SINUSITIS NOS; [address] ASTHMA W/O STATUS ASTHMATICU S; [place], [place] BRONCHIT IS NOS [phone] Social History Tobacco Use Types Packs/Day Years Used Date Smoking Tobacco: Never Assessed Sex Assigned at Date Recorded Not on file documented as of this encounter Progress Notes Kelly Mcneal - 03/21/1997 12:00 AM CDTS: 36-year-old with a sore throat since Friday and now her sinuses are getting congested. She's blowing out yellow mucous and is starting to cough and wheeze. She's had wheezes in the past. She needs a refill on her Maxair. Sometimes she coughs so hard she has to gag. No fever or chills. O: She has some palpable sinus pressure. TMs are clear. Pharynx moderately inflamed especially on the right and lungs have high pitched mild expiratory wheezes. A: Pharyngitis, sinusitis, bronchitis with mild wheezes. P: Refilled her Maxair and amoxicillin 500 mg tid for ten days, also refilled her Lo/Ovral control pills. cc: documented in this encounter Plan of Treatment Not on filedocumented as of this encounter Visit Diagnoses Diagnosis Acute pharyngitis Acute sinusitis, unspecified Unspecified asthma(493.90) ([facility]) Unspecified asthma Bronchitis, not specified as acute or ch ronic documented in this encounter Care Teams Fountain Helper Relationship Specialty Start Date End Date Jailene Cho MD PCP - General 01/02/1999 documented as of this encounter
== END 2022-01-08 13:24 | disposition home or self-care (01) ==
PROVIDERS: PCP Internal Medicine; Visit Provider Internal Medicine
DX: Z00.00 Encounter for general adult medical examination without abnormal findings (principal); E66.01 Morbid (severe) obesity due to excess calories; E11.9 Type 2 diabetes mellitus without complications; E55.9 Vitamin D deficiency, unspecified; F10.20 Alcohol dependence, uncomplicated; Z98.84 Bariatric surgery status
CPT/HCPCS: 82525; 82607; 82728; 83735; 84443; 84446; 84590; 84597; 84630

== ENCOUNTER 2022-02-08 14:22 | Outpatient (CLI) | payer OTHER, SELFPAY ==
--- OUTSIDE RECORDS SUMMARY | 2022-02-08 14:24 | XMS_ITS | Encounter Summary ---
:1960 Author Organization [employer] Address [address] [place] [address] Care Team Providers Name Role Phone Olamide Rodney MD Primary Care Provider Reason for Visit Procedure/Equipment (Routine) - Incomplete Specialty Diagnoses / Procedures Referred By Contact Refer red To Contact Diagnoses Routine physical examination Olamide Rodney MD Procedures MM Mammogram Screening Bilat W CAD [address] [place], [place] [address] Referral ID Status Reason Start Date Expiration Date Visits V isits Requested Authorized [id number] Incomplete 10/28/2016 01/27/2018 1 1 Encounter Details Date Type Department Care Team Description 01/09/2017 [facility] Mamm[facility] hy Olamide oRdney, Routine physical [id number] [facility] [place] [address] [address] [facility] [phone] [place], [place] [phone] (Wo rk) Social History Tobacco Use Types [...] facility documented in this encounter Care Teams Vibratory Pile Driver Relationship Specialty Start Date End Date Olamide Rodney MD PCP - General 09/25/10 01/11/21 [address] [place] [address] documented as of this encounter
--- OUTSIDE RECORDS SUMMARY | 2022-02-08 14:24 | XMS_ITS | Encounter Summary ---
:1960 Author Organization [employer] Address [address] [place] [address] Care Team Providers Name Role Phone Olamide Rodney MD Primary Care Provider Reason for Visit Reason Onset Date Comments Medication Questions 10/17/2016 Encounter Details Date Type Department Care Team Description 10/17/2016 Telephone [facility] re Olamide Rodney, Medication Questions [address] [facility] [address] 38[address] [facility] [phone] [place] [address] (Wo rk) Social History Tobacco [...] on filedocumented in this encounter Care Teams Bit Tripoler Relationship Specialty Start Date End Date Olamide Rodney MD PCP - General 09/25/10 01/11/21 0860 [place] [address] documented as of this encounter
--- OUTSIDE RECORDS SUMMARY | 2022-02-08 14:24 | XMS_ITS | Encounter Summary ---
:1960 Author Organization [employer] Address [address] [place] [address] Care Team Providers Name Role Phone Olamide Rodney MD Primary Care Provider Reason for Referral Procedure/Equipment (Routine) - Incomplete Specialty Diagnoses / Procedures Referred By Contact Refer red To Contact Diagnoses Cough Nina Piedra MD Procedures Nebulizer with compressor, adult (E0570, A7005) [address] [place], [place] [address] Referral ID Status Reason Start Date Expiration Date Visits V isits Requested Authorized [id number] Incomplete 10/17/2016 01/16/2018 1 1 Procedure/Equipment (Routine) - Incomplete Specialty Diagnoses / Procedures Referred By Contact Refer red To Contact Diagnoses Cough Nina Piedra MD Procedures XR Chest 2 Views [address] [place], [place] [address] Referral ID Status Reason Start Date Expiration Date Visits V isits Requested Authorized [id number] Incomplete 10/17/2016 01/16/2018 1 1 Reason for Visit Reason Comments Cough Encounter Details Date Type Department Care Team Description 10/17/2016 Hospital Encounter [facility] Nina Piedra A, Cough (Primary Dx); Care MD Fever, unspecified fever cause; [address] Mild intermit tent asthma without complication; [address] Acute sinusitis, recurrence not specifie d, [place] [address] [phone] Social History Tobacco Use Types Packs/Day Years [...] 4:14 PM CDT NAME: PATY LLAMAS MR#: [id number] CSN: [id number] AUTHENTICATING CLINICIAN: Nina Piedra MD CONFIRM #: [id number] LOC: 520 URGENT CARE PROGRESS NOTE DATE [...] is otherwise p.r.n. PRAVIN:MEDTracie C: CONFIRM #: [id number] documented in this encounter Plan of Treatment [...] Nebulization documented in this encounter Care Teams Automotive Electrician Helper Relationship Specialty Start Date End Date Olamide Rodney MD PCP - General 09/25/10 01/11/21 [address] [place] [address] documented as of this encounter
--- OUTSIDE RECORDS SUMMARY | 2022-02-08 14:24 | XMS_ITS | Encounter Summary ---
:1960 Author Organization [employer] Address [address] [place] [address] Care Team Providers Name Role Phone Olamide Rodney MD Primary Care Provider Reason for Referral Procedure/Equipment (Routine) - Incomplete Specialty Diagnoses / Procedures Referred By Contact Refer red To Contact Diagnoses Abdominal pain, unspecified abdominal location Ines Valdes PA-C [place] [address] [place] [address] Referral ID Status Reason Start Date Expiration Date Visits V isits Requested Authorized [id number] Incomplete 04/07/2017 07/07/2018 1 1 Reason for Visit Reason Comments ABDOMINAL PAIN--LUQ--ED pain has been getting worse onset x yesterday. Denies fever. Encounter Details Date Type Department Care Team Description 04/07/2017 Hospital Encounter [facility] Ines Valdes Ab dominal pain, unspecified abdominal location; Care PA-C Nausea; [address] [place] [address] [place] [address] [id number] Social History Tobacco Use Types Packs/Day Years [...] 12:00 PM CDT NAME: PATY LLAMAS MR#: [id number] CSN: [id number] AUTHENTICATING CLINICIAN: PRASANNA Mei CONFIRM #: [id number] LOC: 520 URGENT CARE PROGRESS NOTE DATE [...] Other past medical history reviewed online in [employer] OBJECTIVE: GENERAL: She appears well in no [...] comfortable with plan. MHT:DUANE C: CONFIRM #: [id number] documented in this encounter Plan of Treatment [...] - 04/07/2017 1:20 PM CDT Performed at [facility] [address] [id number] CLIA number [id number] Ines Tessa Lucio ALDANA LAB_1 Performing Organization Address City/State/ZIP Code Phon e Number PN SOFT [address] [place] [address] (ABNORMAL) Comp Metabolic Panel (04/07/2017 1:05 PM CDT) [facility] gist Method Time Signature Aspartate 41 [...] - 04/07/2017 1:35 PM CDT Performed at [facility] [address] [place] [address] CLIA number [id number] Ines Valdes PA-C LAB_1 Performing Organization Address City/State/ZIP Code Phon e Number PN SOFT [address] [place] [address] Lipase (04/07/2017 1:05 PM CDT) P athologist Signature Lipase 31 8 - 78 U/L PN SOFT Specimen Anatomical Collection Method Collection Time Receive d Time (Source) Location / / Volume Laterality 04/07/2017 1:05 PM 7 1:17 CDT PM CDT Narrative PN SOFT - 04/07/2017 1:35 PM CDT Performed at [facility] [address] [place] [address] CLIA number [id number] Ines BUCHANANC LAB_1 Performing Organization Address [facility] Code Phon e Number PN SOFT [address] [place] [address] (ABNORMAL) Complete Blood Count-W/Diff (04/07/2017 1:05 PM CDT) [facility] gist Method Time Signature White Blood [...] - 04/07/2017 1:19 PM CDT Performed at [facility] [address] [place] [address] CLIA number [id number] Ines Valdes PA-C LAB_1 Performing Organization Address [facility] Phon e Number PN SOFT [address] [place] [address] documented in this encounter Visit Diagnoses Diagnosis [...] chewing. documented in this encounter Care Teams Biological Science Technician Relationship Specialty Start Date End Date Olamide Rodney MD PCP - General 09/25/10 01/11/21 [address] [place] [address] documented as of this encounter
--- OUTSIDE RECORDS SUMMARY | 2022-02-08 14:24 | XMS_ITS | Clinical Summary ---
:1960 Author Organization [employer] Address [address] [place] [address] Care Team Providers Name Role Phone Found, [...] for each transition of care or referral. Appear Here Allergies Active Allergy Reactions Severity Noted Date [...] diabetes mellitus, controlled 10/02/2005 Overview: LW Onset: 43Ead83 ; DM Asthma 10/02/2005 11/03/2006 Overview: LW Onset: 62Upk52 ; Asthma NOS Depressive disorder 10/02/2005 04/23/2011 [...] Influenza IIV4 (Quadrivalent) 0.5mL 04/16/2017, 04/02/2016, 03/22/2015, (76717) 03/09/2014, 03/08/2013 Influenza, Unspecified Formulation 04/06/1998, 04/07/1997 [...] Phone Addre ss Type Group [place] [id number] 2016-Present [address] [address] [place] [address] Guarantor Name Account Type Relation to Date of Phone Billing Patient Address Paty Stovall Personal/Family Self 1960 [address] (Home) [address] [place] [address] [facility] (Work) [place] [address] Paty Stovall Personal/Family Self 1960 [id number] [address] (Home) [facility] [phone] [place], [place] (Work) [address] PATY YEAGER Personal/Family Self 1960 [address] (Home) [address] [place] [address] Care Teams Dessert Cup Machine Feeder Relationship Specialty Start Date End Date Found, No Pcp, PCP - General 08/27/21 [address] [place] [address]
--- OUTSIDE RECORDS SUMMARY | 2022-02-08 14:24 | XMS_ITS | Encounter Summary ---
:1960 Author Organization [employer] Address [address] [place] [address] Care Team Providers Name Role Phone Olamide Rodney MD Primary Care Provider Reason for Visit Procedure/Equipment (Routine) - Incomplete Specialty Diagnoses / Procedures Referred By Contact Refer red To Contact Diagnoses Abdominal pain, unspecified abdominal location Ines Valdes PA-C [place] [address] [place] [address] Referral ID Status Reason Start Date Expiration Date Visits V isits Requested Authorized [id number] Incomplete 04/07/2017 07/07/2018 1 1 Encounter Details Date Type Department Care Team Description 04/07/[address] Scan Abdominal pain, unspecified [address] [facility] abdominal location [place], [place] [phone] Social History Tobacco Use Types Packs/Day Years [...] dose documented in this encounter Care Teams Lead Pl Sql Developer Relationship Specialty Start Date End Date Olamide Rodney MD PCP - General 09/25/10 01/11/21 [address] [place], [place] [id number] documented as of this encounter
--- OUTSIDE RECORDS SUMMARY | 2022-02-08 14:24 | XMS_ITS | Encounter Summary ---
:1960 Author Organization [employer] Address [address] [place] [address] Care Team Providers Name Role Phone Olamide Rodney MD Primary Care Provider Reason for Visit Reason Comments Follow-up Encounter Details Date Type Department Care Team Description 04/16/2017 Office Visit [place] [facility] Olamide Rodney type 2 diabetes mellitus without complication, without long-term current use of insulin (HRC) (Primary Dx); Hayley Antoine MD Chronic insomnia; [address] S/P gastric bypass; [place] [address] Blvd Mild intermittent asthma without complic ation; [phone] [place], [place] Macrocytos is without anemia; [address] Depression, major, single episode, mild (HRC); [phone] Vitamin D defic iency; (Work) Nondependent alcohol [...] not drinking daily alcohol. Did move to [facility] in October. Was laid off from her [...] Date ??? Actinic keratoses 04/23/2011 ??? Asthma ([place]) allergic triggers ??? Chronic abdominal pain 04/23/2011 [...] ??? Superficial thrombophlebitis 04/23/2011 ??? Unspecified asthma(493.90) ([place]) 08/19/2011 ??? Varicose veins 04/23/2011 Past Surgical [...] 1. Stable. May find a provider in [place] next visit. If comes here she will [...] anemia documented in this encounter Care Teams Digital Editor Relationship Specialty Start Date End Date Olamide Rodney MD PCP - General 09/25/10 01/11/21 0519 [place] [address] documented as of this encounter
--- OUTSIDE RECORDS SUMMARY | 2022-02-08 14:24 | XMS_ITS | Encounter Summary ---
:1960 Author Organization [employer] Address [address] [place] [address] Care Team Providers Name Role Phone Olamide Rodney MD Primary Care Provider Reason for Visit Procedure/Equipment (Routine) - Incomplete Specialty Diagnoses / Procedures Referred By Contact Refer red To Contact Diagnoses Cough Olamide Rodney MD Procedures XR Chest 2 Views [address] [place], [place] [address] Referral ID Status Reason Start Date Expiration Date Visits V isits Requested Authorized [id number] Incomplete 09/30/2016 12/30/2017 1 1 Encounter Details Date Type Department Care Team Description 09/30/2016 Imaging [facility] Olamide Rodney MD Cough [address] [place] [address] [place] [address] [phone] (Wo rk) Social History Tobacco Use Types [...] Cough documented in this encounter Care Teams Marking Clerk Relationship Specialty Start Date End Date Olamide Rodney MD PCP - General 09/25/10 01/11/21 [address] [place] [address] documented as of this encounter
--- OUTSIDE RECORDS SUMMARY | 2022-02-08 14:24 | XMS_ITS | Encounter Summary ---
:1960 Author Organization [employer] Address [address] [place] [address] Care Team Providers Name Role Phone Olamide Rodney MD Primary Care Provider Reason for Visit Procedure/Equipment (Routine) - Incomplete Specialty Diagnoses / Procedures Referred By Contact Refer red To Contact Diagnoses Cough Nina Piedra MD Procedures XR Chest 2 Views [address] [place], [place] [address] Referral ID Status Reason Start Date Expiration Date Visits V isits Requested Authorized [id number] Incomplete 10/17/2016 01/16/2018 1 1 Encounter Details Date Type Department Care Team Description 10/17/2016 Imaging [facility] [address] [place] [address] Social History Tobacco Use Types [...] on filedocumented in this encounter Care Teams Concert Promoter Relationship Specialty Start Date End Date Olamide Rodney MD PCP - General 09/25/10 01/11/21 [address] [place], [place] [id number] documented as of this encounter
--- OUTSIDE RECORDS SUMMARY | 2022-02-08 14:25 | XMS_ITS | Encounter Summary ---
:1960 Author Organization [employer] Address [address] [place] [address] Care Team Providers Name Role Phone Olamide Rodney MD Primary Care Provider Encounter Details Date Type Department Care Team Description 10/28/2015 Imaging [facility] Routine physical examination [address] [place], [place] [address] Social History Tobacco Use Types Packs/Day Years [...] be communicated to the patient by the [facility] and we will attempt to schedule [...] are seen in either breast. Procedure Note Mario Severino MD - 02/21/2016 Compared to: 10/24/2014 [...] be communicated to the patient by the [facility] and we will attempt to schedule any recommended imaging follow up with the patient. Olamide Rodney MD RAD SHERYL documented in this encounter Visit Diagnoses Diagnosis Routine physical examination Routine general medical examination at a health care facility documented in this encounter Care Teams Nuclear Scientist Relationship Specialty Start Date End Date Olamide Rodney MD PCP - General 09/25/10 01/11/21 15[address] [place] [address] documented as of this encounter
--- OUTSIDE RECORDS SUMMARY | 2022-02-08 14:25 | XMS_ITS | Encounter Summary ---
:1960 Author Organization [employer] Address [address], [place] [address] Care Team Providers Name Role Phone Olamide Rodney MD Primary Care Provider Reason for Referral Procedure/Equipment (Routine) - Incomplete Specialty Diagnoses / Procedures Referred By Contact Refer red To Contact Diagnoses Routine physical examination Olamide Rodney MD Procedures MM Mammogram Screening Bilat W CAD [address] [place], [place] [address] Referral ID Status Reason Start Date Expiration Date Visits V isits Requested Authorized [id number] Incomplete 10/28/2016 01/27/2018 1 1 Procedure/Equipment (Routine) - Incomplete Specialty Diagnoses / Procedures Referred By Contact Refer red To Contact Diagnoses Cough Olamide Rodney MD Procedures XR Chest 2 Views [address] [place], [place] [address] Referral ID Status Reason Start Date Expiration Date Visits V isits Requested Authorized [id number] Incomplete 09/30/2016 12/30/2017 1 1 Reason for Visit Reason Comments ROUTINE HEALTH MAINTENANCE Encounter Details Date Type Department Care Team Description 09/30/2016 Office Visit [facility] Olamide Rodney physical examination (Primary Dx); Hayley Antoine MD Cough; [address] Other vitamin B12 deficiency anemia; [place] [address] Blvd Hiatal hernia; [phone] [place], [place] Controlled type 2 diabetes mellitus without complication, without long-term current use of insulin (HRC); [address] S/P gastric bypass; [phone] Hx of cancer of endometrium; (Work) Mild [...] call Cervical Cancer Screening and Management Team [phone] Sincerely, Khloe Pike RN on behalf of Dr. Bethany Carbone, Winchman/Crane Operator [place] Cervical Cancer Screening and Management Olamide Rodney MD - 09/29/2016 1:53 PM CDT Preventive Physical Exam: 09/30/2016 SUBJECTIVE: 55 y.o. year old female for a physical exam. History of endometrial cancer, still gets Pap and pelvic exam annually. Done seeing Outsole Beveler. History of OLVIN and BSO. She remotely [...] having stress due to upcoming move to [facility] in the next 2 weeks. Feels things will improve then. Declines needing additional help with this. Complains of coughing since May. Initially had a cold with typical symptoms of sore throat, nasal drainage, mild cough. Cough intermittently since then. Occasionally dry, sometimes with mucus. In the past she has had asthma, mainly when her weight was higher. She uses [id number] Robitussin during the day. It helps. She [...] cancer of endometrium 07/26/2011 ??? Unspecified asthma(493.90) ([facility]) 08/19/2011 ??? Macrocytosis without anemia 04/22/2012 ??? Asthma ([place]) allergic triggers ??? Chronic obstructive asthma, unspecified (HRC) 10/08/2010 Import from [employer] ??? Osteopenia 03/07/2014 Past Surgical History Procedure Laterality Date ??? Gastr restirct w/byps; w/sb recon 09/23 ??? Cholecystectomy; w/cholangiography 09/23 done during gastric bypass surgery ??? Gastric bypass 2002 ??? [place] teeth extraction ??? Eye surgery PRK ??? Olvin and bso endometrial cancer ??? Cholecystectomy ??? Lipectomy 2005 ??? Ovary removal ??? Hysterectomy Social History: . 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 Travels. Allergies Allergen Reactions ??? Fluticasone PN: [...] LW Modifier: colonoscopy at 10/2004 LW Onset: 26Eak22 ??? Cancer, Colon Mother ??? Clotting Disorder [...] - 04/07/2017 10:38 PM CDT Performed at [facility], [address] [place] [address] [place] number [id number] Olamide Rodney MD LAB_1 Performing Organization Address City/State/ZIP Code Phon e Number PN SOFT [address] [place] [address] [phone] MM Mammogram Screening Bilat W CAD (01/09/2017 [...] CDT FINAL GYNECOLOGICAL CYTOLOGY REPORT Pathology #: [id number] ?Date Obtained: 09/30/2016 ? Date Received: 10/01/2016 [...] false-negative report s may occur. Performed at [facility], [address] [place] [address] Olamide Rodney MD LAB_1 Performing Organization Address City/State/ZIP Code Phon e Number SOFT [address] [place] [address] HPV with 16 18 Genotyping (09/30/2016 9:20 AM CDT) [facility] gist Method Time Signature HPV High Risk [...] and its pe rformance characteristics determined by [facility]. It has not been cleared or approved by [facility]. The laboratory is regulated under CLIA as qualified to perform high-complexity testing. This test is used for clinical purposes. It should not be regarded as investigational or fo r research. Specimen Anatomical Collection Method Collection Time Receive d Time (Source) Location / / Volume Laterality 09/30/2016 9:20 AM 7 9:20 CDT AM CDT Narrative PN SOFT - 10/02/2016 3:05 PM CDT Performed at [facility], [address] [place] [address] CLIA number [id number] Olamide Rodney MD LAB_1 Performing Organization Address City/State/ZIP Code Phon e Number PN SOFT [address] [place] [address] Pap Test Order (09/30/2016 9:20 AM CDT) Analysis Performed At [facility] logist Time Signature Pap Smear Collected PN SOFT Monolayer tracking test Specimen Anatomical Collection Method Collection Time Receive d Time (Source) Location / / Volume Laterality 09/30/2016 9:20 AM 7 5:49 CDT AM CDT Narrative BHAKTI NEELY - 09/30/2016 9:21 AM CDT Performed at [facility], [address] [place] [address] [place] number [id number] Olamide Rodney MD LAB_1 Performing Organization Address City/State/ZIP Code Phon e Number CHIN [address] [place] [address] documented in this encounter Visit Diagnoses Diagnosis [...] facility documented in this encounter Care Teams Machining Supervisor Relationship Specialty Start Date End Date Olaimde Rodney MD PCP - General 09/25/10 01/11/21 [address] [place] [address] documented as of this encounter
--- OUTSIDE RECORDS SUMMARY | 2022-02-08 14:25 | XMS_ITS | Encounter Summary ---
:1960 Author Organization [employer] Address [address] [place] [address] Care Team Providers Name Role Phone Olamide Rodney MD Primary Care Provider Reason for Visit Reason Comments Follow-up Encounter Details Date Type Department Care Team Description 03/22/2015 Office Visit [place] [facility] Olamide Rodney type 2, controlled (Primary Dx); Hayley Antoine MD S/P gastric bypass; [address] Embolism and thrombosis of u nspecified site; [place] [address] Blvd Congenital deficiency of other clotting factors; [phone] [place], [place] Need for i nfluenza vaccination; [address] Heel pain, right; [phone] (Wo rk) Left foot pain Social History [...] cancer of endometrium 07/26/2011 ??? Unspecified asthma(493.90) ([facility]) 08/19/2011 ??? Macrocytosis without anemia 04/22/2012 ??? Asthma ([place]) allergic triggers Past Surgical History Procedure Laterality Date ??? Gastric bypass surgery 2002 ??? [place] tooth extraction ??? Eye surgery PRK ??? [...] limb documented in this encounter Care Teams Sales Associate Cashier Relationship Specialty Start Date End Date Olamide Rodney MD PCP - General 09/25/10 01/11/21 [address] [place] [address] documented as of this encounter
--- OUTSIDE RECORDS SUMMARY | 2022-02-08 14:25 | XMS_ITS | Encounter Summary ---
:1960 Author Organization [employer] Address [address], [place] [address] Care Team Providers Name Role Phone Olamide Rodney MD Primary Care Provider Reason for Visit Reason Comments Annual Exam Encounter Details Date Type Department Care Team Description 09/12/2014 Office Visit [place] [facility] Olamide Rodney physical examination (Primary Dx); Hayley Antoine MD Diabetes type 2, controlled; [address] [address] [facility] [place] [address] [facility] [phone] [place], [place] [address] (Wo rk) Social History Tobacco Use Types [...] ??? Actinic keratoses 04/23/2011 ??? Endometrial cancer ([facility]) 04/23/2011 ??? Nondependent alcohol abuse 04/23/2011 ??? Chronic abdominal pain 04/23/2011 ??? Varicose veins 04/23/2011 ??? Superficial thrombophlebitis 04/23/2011 ??? S/P gastric bypass 04/23/2011 ??? Hx of cancer of endometrium 07/26/2011 ??? Unspecified asthma(493.90) ([facility]) 08/19/2011 ??? Macrocytosis without anemia 04/22/2012 ??? Asthma ([place]) allergic triggers Past Surgical History Procedure Laterality Date ??? Gastric bypass surgery 2002 ??? [place] tooth extraction ??? Eye surgery PRK ??? David and bso endometrial cancer ??? Cholecystectomy ??? Lipectomy 2004 ??? Ovary removal ??? Hysterectomy Social History: . 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 Allergies Allergen Reactions ??? Flovent [Fluticasone] laryngitis [...] Primary Routine [facility] Diabetes type 2, controlled (HRC) Type II or unspecified type diabetes rod litus without mention of complication, not stated as uncontrolled S/P gastric bypass Bariatric surgery status documented in this encounter Care Teams Oyster Tonger Relationship Specialty Start Date End Date Olamide Rodney MD PCP - General 09/25/10 01/11/21 [address] [place] [address] documented as of this encounter
--- OUTSIDE RECORDS SUMMARY | 2022-02-08 14:25 | XMS_ITS | Encounter Summary ---
:1960 Author Organization [employer] Address [address] [place] [address] Care Team Providers Name Role Phone Olamide Rodney MD Primary Care Provider Reason for Visit Reason Comments Ankle Problem Encounter Details Date Type Department Care Team Description 04/21/2015 Office Visit [place] [facility] Kami Spaulding P T Achilles tendinitis Therapy [address] [facility] of right lower [address] [place], [place] extremity ([place] [address] Dx) [phone] (Wo rk) Social History Tobacco Use Types Packs/Day Years Used Date Smoking Tobacco: Never Alcohol Use Standard Drinks/Week Comments Yes 0 (1 standard drink = 0.6 oz pure alcoho l) mod Sex Assigned at Date Recorded Not on file documented as of this encounter Progress Notes Kami Spaulding, PT - 05/22/2015 2:49 PM CST Encounter Date: 04/21/2015 Pt : 1960 [place] [facility] Discharge Summary Patient was [...] patient to call with questions or concerns. RRAL AND INFORMATION AIDE Kami Spaulding, PT - 04/21/2015 7:18 AM CDT Encounter date: 04/21/2015 Pt : 1960 C[facility]n [facility] Services Physical Therapy Progress Note Visit [...] tendinitis documented in this encounter Care Teams Pnp Relationship Specialty Start Date End Date Olamide Rodney MD PCP - General 09/25/10 01/11/21 [address] [place] [address] documented as of this encounter
--- OUTSIDE RECORDS SUMMARY | 2022-02-08 14:25 | XMS_ITS | Encounter Summary ---
:1960 Author Organization [employer] Address [address] [place] [address] Care Team Providers Name Role Phone Olamide Rodney MD Primary Care Provider Encounter Details Date Type Department Care Team Description 10/24/2014 Imaging [facility] hy Routine physical examination [address] [place], [place] [address] Social History Tobacco Use Types Packs/Day Years [...] be communicated to the patient by the [facility] and we will attempt to [...] be communicated to the patient by the [facility] and we will attempt to schedule any recommended imaging follow up with the patient. Olamide Rodney MD RAD SHERYL documented in this encounter Visit Diagnoses Diagnosis Routine physical examination Routine general medical examination at a health care facility documented in this encounter Care Teams Manufacturing Plant Controller Relationship Specialty Start Date End Date Olamide Rodney MD PCP - General 09/25/10 01/11/21 [address] [place] [address] documented as of this encounter
--- OUTSIDE RECORDS SUMMARY | 2022-02-08 14:25 | XMS_ITS | Encounter Summary ---
:1960 Author Organization [employer] Address [address] [place] [address] Care Team Providers Name Role Phone Olamide Rodney MD Primary Care Provider Reason for Visit Reason Comments Ankle Problem Encounter Details Date Type Department Care Team Description 04/06/2015 Office Visit [place] Physical Kami Spaulding P T Achilles tendinitis Therapy [address] [facility] of right lower [address] [place], [place] extremity ([place] [address] Dx) [phone] (Wo rk) Social History Tobacco Use Types Packs/Day Years Used Date Smoking Tobacco: Never Alcohol Use Standard Drinks/Week Comments Yes 0 (1 standard drink = 0.6 oz pure alcoho l) mod Sex Assigned at Date Recorded Not on file documented as of this encounter Progress Notes Kami Spaulding, PT - 04/06/2015 3:04 PM CDT Encounter date: 04/06/2015 Pt : 1960 [facility] Progress Note Visit Number: 2 [...] tendinitis documented in this encounter Care Teams Office Helper Clerical Relationship Specialty Start Date End Date Olamide Rodney MD PCP - General 09/25/10 01/11/21 [address] [place] [address] documented as of this encounter
--- OUTSIDE RECORDS SUMMARY | 2022-02-08 14:25 | XMS_ITS | Encounter Summary ---
:1960 Author Organization [employer] Address [address] [place] [address] Care Team Providers Name Role Phone Olamide Rodney MD Primary Care Provider Encounter Details Date Type Department Care Team Description 03/22/2015 Imaging [facility] Left foot pain [address] [place], [place] [address] Social History Tobacco Use Types Packs/Day Years [...] limb documented in this encounter Care Teams Hooker Operator Relationship Specialty Start Date End Date Olamide Rodney MD PCP - General 09/25/10 01/11/21 [address] [place] [address] documented as of this encounter
--- OUTSIDE RECORDS SUMMARY | 2022-02-08 14:25 | XMS_ITS | Encounter Summary ---
:1960 Author Organization [employer] Address [address], [place] [address] Care Team Providers Name Role Phone Olamide Rodney MD Primary Care Provider Reason for Visit Reason Comments Follow-up Encounter Details Date Type Department Care Team Description 05/25/2015 Office Visit [place] Internal Olamide Rodney Dep ression, [facility], Medicine MD Elina single episode, mild [address] (Primary Dx) [place] [address] [address]vd [phone] [place], [place] [address] (Wo rk) Social History Tobacco Use Types Packs/Day Years Used Date Smoking Tobacco: Never Alcohol Use Standard Drinks/Week Comments Yes 0 (1 standard drink = 0.6 oz pure alcoho l) mod Sex Assigned at Date Recorded Not on file documented as of this encounter Last Filed Vital Signs Vital Sign Reading Time Taken Comments Blood Pressure 137/80 05/25/2015 11:25 AM GROMMET MAN Pulse 64 05/25/2015 11:25 AM GROMMET MAN Temperature - - Respiratory Rate - - Oxygen Saturation - - Inhaled Oxygen Concentration - - Weight 109.8 kg (242 lb) 05/25/2015 11:25 AM GROMMET MAN Height - - Body Mass Index 40.27 [...] is markedly helpful. 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 She is using some jztr-[id number]-[id number] zquil at night to help sleep. In [...] of endometrium 07/26/2011 ??? Unspecified asthma(493.90) ([facility]) 08/19/2011 ??? Macrocytosis without anemia 04/22/2012 ??? Asthma ([facility]) allergic triggers OBJECTIVE: Vitals: BP 137/80 mmHg [...] discharged ambulatory and in stable condition. *SH~DNS~SOAP MET MAN documented in this encounter Plan of Treatment Not on filedocumented as of this encounter Visit Diagnoses Diagnosis Depression, major, single episode, mild (HRC) - Primary Major depressive disorder, single episod e, mild documented in this encounter Care Teams Button Decorating Machine Operator Relationship Specialty Start Date End Date Olamide Rodney MD PCP - General 09/25/10 01/11/21 [address] [place] [address] documented as of this encounter
--- OUTSIDE RECORDS SUMMARY | 2022-02-08 14:25 | XMS_ITS | Encounter Summary ---
:1960 Author Organization [employer] Address [address] [place] [address] Care Team Providers Name Role Phone Olamide Rodney MD Primary Care Provider Encounter Details Date Type Department Care Team Description 09/21/2015 Lab Visit [facility] Diabetes type 2, controlled (HRC); [address] [facility] S/P gastric bypass [place], [place] [address] Social History Tobacco Use Types Packs/Day Years [...] - 09/21/2015 10:14 AM CDT Performed at [facility], [address] [place] [id number] CLIA number [id number] Olamide Rodney MD LAB_1 Performing Organization Address City/State/ZIP Code Phon e Number HP CONVERSION Differential (09/21/2015 7:36 AM CDT) Analysis Performed At [facility] logist Time Signature Absolute 3.2 1.8 [...] - 09/21/2015 7:40 AM CDT Performed at [facility], [address] [place] [address] CLIA number [id number] Olamide Rodney MD LAB_1 Performing Organization Address City/[facility]/ZIP Code Phon e Number HP CONVERSION B12 Only (09/21/2015 7:36 AM CDT) athologist Signature Vitamin B12 518 213 - 816 HP CONVERSION pg/dL Specimen Anatomical Collection Method Collection Time Receive d Time (Source) Location / / Volume Laterality 09/21/2015 7:36 AM 6 1:08 CDT PM CDT Narrative HP CONVERSION - 09/21/2015 2:28 PM CDT Performed at [address] [address] CLIA number [id number] Olamide Rodney MD LAB_1 Performing Organization Address City/State/ZIP Code Phon e Number HP CONVERSION Calcium (09/21/2015 7:36 AM CDT) athologist Signature Calcium 9.3 8.4 - 10.2 HP CONVERSION mg/dL Specimen Anatomical Collection Method Collection Time Receive d Time (Source) Location / / Volume Laterality 09/21/2015 7:36 AM 6 7:36 CDT AM CDT Narrative HP CONVERSION - 09/21/2015 9:02 AM CDT Performed at [facility], [address] [place] [address] CLIA number [id number] Olamide Rodney MD LAB_1 Performing Organization Address [facility] Phon e Number HP CONVERSION (ABNORMAL) Vitamin D 25-Hydroxy, Total (09/21/2015 7:36 AM CDT) athologist [facility] Vitamin D 25 16 (L) 20 - 80 HP CONVERSION Oh ng/mL Comment: Deficiency = <20 Adequate ??= 20-29 Preferred = 30-50 Uncertain safety = 51-80 High = >80 Specimen Anatomical Collection Method Collection Time Receive d Time (Source) Location / / Volume Laterality 09/21/2015 7:36 AM 6 1:08 CDT PM CDT Narrative HP CONVERSION - 09/21/2015 3:05 PM CDT Performed at [address] [address] CLIA number [id number] Olamide Rodney MD LAB_1 Performing Organization Address [facility] Phon e Number HP CONVERSION Electrolyte Panel (09/21/2015 7:36 AM CDT) athologist [facility] Sodium 141 136 - 145 HP CONVERSION [...] - 09/21/2015 9:02 AM CDT Performed at [facility], [address] [place] [address] CLIA number [id number] Olamide Rodney MD LAB_1 Performing Organization Address [facility] Phon e Number HP CONVERSION (ABNORMAL) BUN (09/21/2015 7:36 AM CDT) athologist Signature Blood Urea <10 (A) 9 - 26 HP CONVERSION Nitrogen mg/dL Specimen Anatomical Collection Method Collection Time Receive d Time (Source) Location / / Volume Laterality 09/21/2015 7:36 AM 6 7:36 CDT AM CDT Narrative HP CONVERSION - 09/21/2015 9:02 AM CDT Performed at [facility], [facility] [address] [place] [address] CLIA number [id number] Olamide Rodney MD LAB_1 Performing Organization Address [facility] Phon e Number HP CONVERSION Creatinine / [...] - 09/21/2015 9:02 AM CDT Performed at [facility], [facility] [address] [place] [address] CLIA number [id number] Olamide Rodney MD LAB_1 Performing Organization Address [facility] Phon e Number HP CONVERSION Ferritin (09/21/2015 7:36 AM CDT) athologist Signature Ferritin Serum 32 5 - 204 HP CONVERSION ng/mL Specimen Anatomical Collection Method Collection Time Receive d Time (Source) Location / / Volume Laterality 09/21/2015 7:36 AM 6 1:08 CDT PM CDT Narrative HP CONVERSION - 09/21/2015 2:28 PM CDT Performed at [address] [address] CLIA number [id number] Olamide Rodney MD LAB_1 Performing Organization Address City/[facility]/ZIP Code Phon e Number HP CONVERSION Complete Blood Count W/Diff (09/21/2015 7:36 AM CDT) athologist [facility] White Blood Cell 6.0 3.8 - 11.0 [...] - 09/21/2015 7:40 AM CDT Performed at [facility] [address] [place] [address] CLIA number [id number] Olamide Rodney MD LAB_1 Performing Organization Address [facility] Phon e Number HP CONVERSION (ABNORMAL) Hgb A1c (09/21/2015 7:36 AM CDT) athologist [facility] HGB A1C 5.8 (H) 4.0 - 5.6 % HP CONVERSION Specimen Anatomical Collection Method Collection Time Receive d Time (Source) Location / / Volume Laterality 09/21/2015 7:36 AM 6 1:06 CDT PM CDT Narrative HP CONVERSION - 09/21/2015 3:13 PM CDT Performed at [place] [address] [place] [address] CLIA number [id number] Olamide Rodney MD LAB_1 Performing Organization Address City/[facility]/ZIP Code Phon e Number HP CONVERSION [...] - 09/21/2015 2:28 PM CDT Performed at [address] [address] CLIA number [id number] Olamide Rodney MD LAB_1 Performing Organization Address City/[facility] Phon e Number HP CONVERSION ALT (SGPT) (09/21/2015 7:36 AM CDT) [facility] Method Time Signature Alanine 32 9 - 55 HP CONVERSION Aminotransferase U/L Specimen Anatomical Collection Method Collection Time Receive d Time (Source) Location / / Volume Laterality 09/21/2015 7:36 AM 6 7:36 CDT AM CDT Narrative HP CONVERSION - 09/21/2015 9:02 AM CDT Performed at [facility], [address] [place] [address] CLIA number [id number] Olamide Rodney MD LAB_1 Performing Organization Address [facility] Phon e Number HP CONVERSION Lipid Panel and Direct LDL(If Needed) (09/21/2015 7:36 AM CDT) [facility] Method Time Signature Cholesterol 169 0 [...] - 09/21/2015 9:02 AM CDT Performed at [facility], [address] [place] [address] CLIA number [id number] Olamide Rodney MD LAB_1 Performing Organization Address [facility] Phon e Number HP CONVERSION documented in this encounter Visit Diagnoses Diagnosis Diabetes type 2, controlled (HRC) Type II or unspecified type diabetes rod litus without mention of complication, not stated as uncontrolled S/P gastric bypass Bariatric surgery status documented in this encounter Care Teams Care Team Assistant Relationship Specialty Start Date End Date Olamide Rodney MD PCP - General 09/25/10 01/11/21 [address] [place] [address] documented as of this encounter
--- OUTSIDE RECORDS SUMMARY | 2022-02-08 14:25 | XMS_ITS | Encounter Summary ---
:1960 Author Organization [email or web address] Address [address] [place] [address] Care Team Providers Name Role Phone Olamide Rodney MD Primary Care Provider Encounter Details Date Type Department Care Team Description 03/29/2016 Lab Visit [facility] Diabetes type 2, controlled (HRC); [address] [facility] Vitamin D deficiency [place], [place] [address] Social History Tobacco Use Types Packs/Day Years [...] - 03/29/2016 10:04 PM CDT Performed at [address] [address] CLIA number [id number] Olamide Rodney MD LAB_1 Performing Organization Address [facility] Phon e Number PN SOFT [address] [place] [address] [phone] (ABNORMAL) Hgb A1c (03/29/2016 4:00 PM CDT) athologist Signature HGB A1C 6.2 (H) 4.0 - 5.6 % PN SOFT Specimen Anatomical Collection Method Collection Time Receive d Time (Source) Location / / Volume Laterality 03/29/2016 4:00 PM 6 6:16 CDT PM CDT Narrative PN SOFT - 03/29/2016 9:56 PM CDT Performed at [address] [address] CLIA number [id number] Olamide Rodney MD LAB_1 Performing Organization Address City/[facility] Phon e Number PN SOFT [address] [place] [address] [phone] documented in this encounter Visit Diagnoses Diagnosis Diabetes type 2, controlled (HRC) Type II or unspecified type diabetes rod litus without mention of complication, not stated as uncontrolled Vitamin D deficiency (HRC) Unspecified vitamin D deficiency documented in this encounter Care Teams Delivery Assistant Relationship Specialty Start Date End Date Olamide Rodney MD PCP - General 09/25/10 01/11/21 [address] [place], [place] [address] documented as of this encounter
--- OUTSIDE RECORDS SUMMARY | 2022-02-08 14:25 | XMS_ITS | Encounter Summary ---
:1960 Author Organization [employer] Address [address], [place] [address] Care Team Providers Name Role Phone Olamide Rodney MD Primary Care Provider Reason for Visit Reason Comments DEPRESSION Encounter Details Date Type Department Care Team Description 05/11/2015 Office Visit [place] Internal Olamide Rodney Dep ression, Hayley dalton MD single episode, mild [address] (Primary Dx) [place] [address] Blvd [phone] [place] [address] (Wo rk) Social History Tobacco Use Types Packs/Day Years Used Date Smoking Tobacco: Never Alcohol Use Standard Drinks/Week Comments Yes 0 (1 standard drink = 0.6 oz pure alcoho l) mod Sex Assigned at Date Recorded Not on file documented as of this encounter Last Filed Vital Signs Vital Sign Reading Time Taken Comments Blood Pressure 148/91 05/11/2015 2:12 PM STRATEGIC PARTNERSHIP MANAGER Pulse 75 05/11/2015 2:12 PM STRATEGIC PARTNERSHIP MANAGER Temperature - - Respiratory Rate - - Oxygen Saturation - - Inhaled Oxygen Concentration - - Weight 109.3 kg (241 lb) 05/11/2015 2:12 PM STRATEGIC PARTNERSHIP MANAGER Height - - Body Mass Index 40.1 [...] cancer of endometrium 07/26/2011 ??? Unspecified asthma(493.90) ([facility]) 08/19/2011 ??? Macrocytosis without anemia 04/22/2012 ??? Asthma ([facility]) allergic triggers OBJECTIVE: Vitals: BP 148/91 mmHg [...] discharged ambulatory and in stable condition. *SH~DNS~SOAP TEGIC PARTNERSHIP MANAGER documented in this encounter Plan of Treatment Not on filedocumented as of this encounter Visit Diagnoses Diagnosis Depression, major, single episode, mild (HRC) - Primary Major depressive disorder, single episod e, mild documented in this encounter Care Teams Eyeglass Inspector Relationship Specialty Start Date End Date Olamide Rodney MD PCP - General 09/25/10 01/11/21 [address] [place] [address] documented as of this encounter
--- OUTSIDE RECORDS SUMMARY | 2022-02-08 14:25 | XMS_ITS | Encounter Summary ---
:1960 Author Organization [employer] Address [address] [place] [address] Care Team Providers Name Role Phone Olamide Rodney MD Primary Care Provider Reason for Visit Reason Comments Annual Exam Encounter Details Date Type Department Care Team Description 09/28/2015 Office Visit [place] Internal Olamide Rodney physical examination (Primary Dx); Hayley Antoine MD Diabetes type 2, controlled ([facility]); [address] S/P gastric bypass; [place] [address] Bl Vitamin D deficiency; [phone] [place], [place] Hx of [facility] er of endometrium [phone] (Wo rk) Social History Tobacco Use Types [...] call Cervical Cancer Screening and Management Team [phone] Sincerely, Salima José, LUCIA on behalf of Dr. Bethany Carbone, Operations Staff Specialist Security Carlyn Al Cervical Cancer Screening and Management Olamide Jimenez MD - 09/28/2015 11:11 AM CDT Preventive Physical Exam: 09/28/2015 SUBJECTIVE: 54 y.o. year old female for a physical exam. Zostavax 2008. Pneumonia vaccine 1996 &2005. Adacel 2011. Gets seasonal flu shot. Was diagnosed with endometrial cancer, still gets Pap andpelvicexam annually. Done seeing Impregnating Machine Operator. Had the OLVIN and BSO. She remotely [...] current weight is increasing. Patient traveling to [facility] and [facility] with [employer] this fall. Lab Results Component Value Date/Time [...] Date ??? Gastric bypass surgery 2003 ??? [place] tooth extraction ??? Eye surgery PRK ??? Olvin and bso endometrial cancer ??? Cholecystectomy ??? Lipectomy 2005 ??? Ovary removal ??? Hysterectomy Social History: . 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 Allergies Allergen Reactions ??? Flovent [Fluticasone] laryngitis [...] results, callCervical Cancer Screening and Management Team [phone] Garcia RN on behalf ofDrJorge Carbone, Medical DirectorMunicipal Hospital [facility] Cervical Cancer Screening and Management CTION COUNSELOR Miscellaneous - 07/31/2016 7:38 PM CSTNotes Recorded [...] results, callCervical Cancer Screening and Management Team [phone] Garcia, RN on behalf ofDr. Bethany Carbone, Medical DirectorWvumedicine Barnesville Hospitaltaylor Al Cervical Cancer Screening and Management CTION COUNSELOR documented in this encounter Plan of Treatment [...] - 03/29/2016 10:04 [place] [address] CLIA number [id number] Olamide Rodney MD LAB_1 Performing Organization Address City/State/ZIP Code Phon e Number PN SOFT [address] [place] [address] [phone] (ABNORMAL) Hgb A1c (03/29/2016 4:00 PM CDT) athologist Signature HGB A1C 6.2 (H) 4.0 - 5.6 % PN SOFT Specimen Anatomical Collection Method Collection Time Receive d Time (Source) Location / / Volume Laterality 03/29/2016 4:00 PM 6 6:16 CDT PM CDT Narrative PN SOFT - 03/29/2016 9:56 PM CDT Performed at [place] [address] [place] [address] CLIA number [id number] Olamide Rodney MD LAB_1 Performing Organization Address City/State/ZIP Code Phon e Number PN SOFT [address] [place] [address] Pap Smear (09/28/2015 8:50 AM CDT) Specimen (Source) Anatomical Collection Method Collection Time Re ceived Time Location / / Volume Laterality 09/28/2015 8:50 AM CDT Narrative HP CONVERSION - 10/04/2015 7:16 PM CDT FINAL GYNECOLOGICAL CYTOLOGY REPORT Pathology #: [id number] ?Date Obtained: 09/28/2015 ? Date Received: 09/29/2015 [...] false-negative report s may occur. Performed at [facility], [address] [place] [address] Transcriptions 07/31/2016 7:38 PM CSTNotes Recorded by [...] call Cervical Cancer Screening and Management Team [phone],Salima José RN on behalf ofDr. Bethany Carbone, Operations Staff Specialist Security [facility] Cervical Cancer Screening and Management Olamide Rodney MD LAB_1 Performing Organization Address City/State/ZIP Code Phon e Number HP CONVERSION HPV with 16 18 Genotyping (09/28/2015 8:50 AM CDT) [facility] Method Time Signature HPV High Risk Not Detected HP CONVERSION 16 HPV High Risk Not Detected HP CONVERSION 18 Other HPV Not Detected HP CONVERSION High Risk Not 16/18 Comment: The [facility]annon HPV Test is a qualitative in v itro test for the detection of Human Papillomavirus in [facility] patient specimens. ??The test utilizes amplifica tion [...] and its pe rformance characteristics determined by [facility], [facility]. It has not been cleared or approved by [facility]. The laboratory is regulated under CLIA as qualified to perform high-complexity testing. This test is used for clinical purposes. It should not be regarded as investigational or fo r research. Specimen Anatomical Collection Method Collection Time Receive d Time (Source) Location / / Volume Laterality 09/28/2015 8:50 AM 6 8:50 CDT AM CDT Narrative HP CONVERSION - 10/02/2015 12:37 PM CDT Performed at [place] [address] [place] [address] CLIA number [id number] Transcriptions 07/31/2016 7:38 PM CSTNotes Recorded by [...] call Cervical Cancer Screening and Management Team [phone] Garcia RN on behalf ofDr. Bethany Carbone, Operations Staff Specialist Security Carlyn Zamoraet Cervical Cancer Screening and Management Olamide Rodney MD LAB_1 Performing Organization Address City/[facility] Phon e Number HP CONVERSION Pap Test Order (09/28/2015 8:50 AM CDT) [facility] Method Time Signature Pap Smear Collected HP CONVERSION Monolayer tracking test Specimen Anatomical Collection Method Collection Time Receive d Time (Source) Location / / Volume Laterality 09/28/2015 8:50 AM 6 6:57 CDT AM CDT Olamide Rodney MD LAB_1 Performing Organization Address [facility] Phon e Number HP CONVERSION [...] deficiency documented in this encounter Care Teams Maintenance Engineer Relationship Specialty Start Date End Date Olamide Rodney MD PCP - General 09/25/10 01/11/21 [address] [place] [address] documented as of this encounter
--- OUTSIDE RECORDS SUMMARY | 2022-02-08 14:25 | XMS_ITS | Encounter Summary ---
:1960 Author Organization [employer] Address [address] [place] [address] Care Team Providers Name Role Phone Olamide Rodney MD Primary Care Provider Reason for Visit Reason Comments Follow-up Encounter Details Date Type Department Care Team Description 03/15/2015 Office Visit [facility] Jeremy Madrid His tory of Services-PHOTOCOPIER TECHNICIAN MD Joni endometrial cancer [address] (Primary Dx) Drive, [address] [place] [address] [place], [place] [phone] (Wo rk) [address] [phone] Social History Tobacco Use Types Packs/Day Years [...] 03/16/15 0658 Note Time: 03/15/152247 Status: Signed Application Security Consultant: Jeremy Madrid MD (Physician) NAME: PATY LLAMAS MR#: [id number] CSN: [id number] AUTHENTICATING CLINICIAN: Jeremy Madrid MD CONFIRM #: [id number] LOC: 512 CLINIC PROGRESS NOTE DATE OF [...] evidence of recurrence. CJS:MEDQ C: CONFIRM #: [id number] documented in this encounter Plan of Treatment Not on filedocumented as of this encounter Visit Diagnoses Diagnosis History of endometrial cancer - Primary Personal history of malignant neoplasm o f other parts of uterus documented in this encounter Care Teams Chief Strategy Officer Relationship Specialty Start Date End Date Olamide Rodney MD PCP - General 09/25/10 01/11/21 [address] [place] [address] documented as of this encounter
--- OUTSIDE RECORDS SUMMARY | 2022-02-08 14:25 | XMS_ITS | Encounter Summary ---
:1960 Author Organization [employer] Address [address] [place] [address] Care Team Providers Name Role Phone Olamide Rodney MD Primary Care Provider Reason for Visit Reason Comments ANXIETY Encounter Details Date Type Department Care Team Description 07/21/2015 Hospital Encounter [facility] [place], Liz Panic attack; Care JOVAN [place] Anxiety [address] [place] [address] [place], [place] [phone] (Wo rk) Social History Tobacco Use Types Packs/Day Years Used Date Smoking Tobacco: Never Alcohol Use Standard Drinks/Week Comments Yes 0 (1 standard drink = 0.6 oz pure alcoho l) mod Sex Assigned at Date Recorded Not on file documented as of this encounter Last Filed Vital Signs Vital Sign Reading Time Taken Comments Blood Pressure 171/103 07/21/2015 8:15 AM ROTOR COIL TAPER Pulse 89 07/21/2015 8:15 AM ROTOR COIL TAPER Temperature 36.9 ??C (98.4 ??F) 07/21/2015 8:15 AM ROTOR COIL TAPER Respiratory Rate 20 07/21/2015 8:15 AM ROTOR COIL TAPER Oxygen Saturation - - Inhaled Oxygen Concentration [...] PA-C - 07/21/2015 9:20 AM CST [facility] SUBJECTIVE Chief Complaint: Chief Complaint [...] the safe. She also states that her lhiwmsb-ik-xnc has committed suicide and she would never [...] Breast Maternal Aunt 68 Medications: Reviewed in [employer]. Adverse Drug Reactions: Flovent; Lanolin; Other; Oxycodone-acetaminophen; [...] urgent need of mental health support call [phone], available 24 hours ?? Follow up with primary next week for recheck ?? If any change in suicidal thoughts, wanting to harm self or others, increasing panic or anxiety, or other concerns need to call 911, or go to the ER immediately. Discharge References/Attachments PANIC ATTACKS ([place]) R COIL TAPER documented in this encounter Miscellaneous Notes Medication [...] LPN Oral - 07/21/15 0850 - - R COIL TAPER ED AVS Snapshot - Tirso Piedra MD - 07/21/2015 9:20 AM CST Images from the original note were not included. [facility] [address] [place] [address] Dept: [phone] [email or web address] Paty Stovall 07/21/2015 8:17 AM Hospital Encounter Description: Female : 1960 Department: [facility] Dept Thank you for choosing [facility] for your health care visit with Liz Acevedo PA-C. We are happy to care for you and provide this summary of your visit. Your primary pet caretaker is currently listed as Olamide Rodney MD. HERE IS WHAT YOU NEED TO KNOW To learn how you can take steps to stay as healthy as you can be visit [email or web address] Discharge Instructions Recommendations: ?? Ativan every 6-8 hours, use sparingly ?? Rest, meditation ?? Exercise can be beneficial ?? Consider massage or yoga ?? If in urgent need of mental health support call [phone], available 24 hours ?? Follow up with primary next week for recheck ?? If any change in suicidal thoughts, wanting to harm self or others, increasing panic or anxiety, or other concerns need to call 911, or go to the ER immediately. Discharge References/Attachments PANIC ATTACKS ([place]) HERE IS WHAT YOU NEED TO DO Call your clinic if: You develop new symptoms Your symptoms worsen unexpectedly You are not improving as expected You have questions about your visit or medications Your to do list Future Appointments Provider Department Dept Phone 09/18/2015 8:00 AM Olamide Rodney MD [facility] [phone] Future Orders Complete By Ordering Dept. Alanine Aminotransferase 09/20/2015 [facility] BUN 09/20/2015 [facility] Calcium 09/20/2015 [facility] Cholesterol Fraction-LDLD If Trig High 09/20/2015 [facility] Complete Blood Count W/Diff 09/20/2015 [facility] Creatinine 09/20/2015 [facility] Electrolytes (NA, K, CL, Bicarb) 09/20/2015 [facility] Ferritin 09/20/2015 [facility] Fluarix Influenza QIV (36+ mos) 09/20/2015 [facility] Hemoglobin A1C Glycosylated 09/20/2015 [facility] Microalbumin Urine Random 09/20/2015 [facility] TSH And Free T4 (FRT4 If TSH Abnorm) 09/20/2015 [facility] Vitamin B-12 09/20/2015 [facility] Vitamin D (In house) 09/20/2015 [facility] Internal Medicine Consult Adult (AMB) As directed [facility] Scheduling Instructions: Your provider has recommended an appointment with [facility]. You may call [phone] to schedule your appointment. If you prefer, a audiology technician will contact you within the next 3 [...] Ethnicity Preferred Language 1960 Female White Non- Dominican This document contains confidential information about your health and care. It is provided directlyto you for your personal, private use only. R COIL TAPER documented in this encounter Plan of Treatment Not on filedocumented as of this encounter Visit Diagnoses Diagnosis Panic attack (HRC) Panic disorder without agoraphobia Anxiety (HRC) Anxiety state, unspecified Triage Assessment Note - Selena Gongora RN - 07/21/2015 8:14 AM CST having anxiety attacks with crying since yesterday. cant stop R COIL TAPER documented in this encounter Care Teams Physics Department Chair Relationship Specialty Start Date End Date Olamide Rodney MD PCP - General 09/25/10 01/11/21 [address] [place], [place] [address] documented as of this encounter
--- OUTSIDE RECORDS SUMMARY | 2022-02-08 14:25 | XMS_ITS | Encounter Summary ---
:1960 Author Organization [employer] Address [address] [place] [address] Care Team Providers Name Role Phone Olamide Rodney MD Primary Care Provider Reason for Visit Reason Comments Ankle Problem Encounter Details Date Type Department Care Team Description 04/12/2015 Office Visit [facility] Kami Spaulding P T Achilles tendinitis Therapy [address] [facility] of right lower [address] [place], [place] extremity ([place] [address] Dx) [phone] (Wo rk) Social History Tobacco Use Types Packs/Day Years Used Date Smoking Tobacco: Never Alcohol Use Standard Drinks/Week Comments Yes 0 (1 standard drink = 0.6 oz pure alcoho l) mod Sex Assigned at Date Recorded Not on file documented as of this encounter Progress Notes Kami Spaulding, PT - 04/12/2015 7:31 AM CDT Encounter date: 04/12/2015 Pt : 1960 [facility] Visit Number: 3 [...] tendinitis documented in this encounter Care Teams Business Continuity Management Director Relationship Specialty Start Date End Date Olamide Rodney MD PCP - General 09/25/10 01/11/21 [address] [place] [address] documented as of this encounter
--- OUTSIDE RECORDS SUMMARY | 2022-02-08 14:25 | XMS_ITS | Encounter Summary ---
:1960 Author Organization [employer] Address [address] [place] [address] Care Team Providers Name Role Phone Olamide Rodney MD Primary Care Provider Reason for Referral Specialty Diagnoses / Procedures Referred By Contact [place] [address] [place] [address] Referral ID Status Reason Start Date Expiration Date Visits Requ ested Visits Authorized Reason for Visit Reason Comments Ankle Problem Encounter Details Date Type Department Care Team Description 03/28/2015 Initial Consult [facility] Kami Spaulding P T Achilles tendinitis Therapy [address] right [facility] [address] [place], [place] [address] [phone] Social History Tobacco Use Types Packs/Day Years Used Date Smoking Tobacco: Never Alcohol Use Standard Drinks/Week Comments Yes 0 (1 standard drink = 0.6 oz pure alcoho l) mod Sex Assigned at Date Recorded Not on file documented as of this encounter Progress Notes Kami Spaulding, PT - 03/28/2015 1:36 PM CDT Date of Service: 03/28/2015 Pt : 1960 [facility] Physical Therapy Ankle Evaluation/Plan of Care [...] Disc Degeneration (08/08/2010); Diabetes type 2, controlled ([facility]) (04/23/2011); Chronic insomnia (04/23/2011); Actinickeratoses (04/23/2011); Endometrial cancer ([facility]) (04/23/2011); Nondependent alcohol abuse (04/23/2011);Chronic abdominal pain (04/23/2011); Varicose veins (04/23/2011); Superficial thrombophlebitis (04/23/2011); S/P gastric bypass (04/23/2011); cancer of endometrium (07/26/2011); Unspecified asthma(493.90) ([facility]) (08/19/2011); Macrocytosis without anemia (04/22/2012); and Asthma ([facility]). Previous Treatment: orthotics: Benefited from previous treatment: [...] to add manual therapy next treatment. The manager front is completed by the therapist and the referring clinician's electronic signature certifies medical necessity for the plan above. documented in this encounter Plan of Treatment Scheduled Referrals Name Type Priority Associated Diagnoses Order S [facility] Physical Therapy Referral Routine Achilles tendinitis of O rdered: 03/28/2015, right lower extremity s: 03/28/2015 documented as of this encounter Visit Diagnoses Diagnosis Achilles tendinitis of right lower extre mity Achilles bursitis or tendinitis documented in this encounter Care Teams Communications Lead Relationship Specialty Start Date End Date Olamide Rodney MD PCP - General 09/25/10 01/11/21 [address] [place] [address] documented as of this encounter
--- OUTSIDE RECORDS SUMMARY | 2022-02-08 14:25 | XMS_ITS | Encounter Summary ---
:1960 Author Organization [employer] Address [address] [place] [address] Care Team Providers Name Role Phone Olamide Rodney MD Primary Care Provider Reason for Visit Reason Comments Follow-up Encounter Details Date Type Department Care Team Description 04/02/2016 Office Visit [facility] Olamide Rodney type 2 diabetes mellitus without complication, without long-term current use of insulin (HRC) (Primary Dx); Hayley Antoine MD Need for influenza vaccination; [address] Other vitamin B12 deficiency anemia; [place] [address] Blvd Embolism and thrombosis (HRC); [phone] [place], [place] Heterozygo us factor V Leiden mutation (HRC); [address] Chronic insomnia; [phone] S/P gastric byp ass; (Work) Mild intermittent [...] evidence thrombosis. Has trouble sleeping chronically. Tried wezj-kzk-efufeif sleep aid but got restless legs. States [...] cancer of endometrium 07/26/2011 ??? Unspecified asthma(493.90) ([facility]) 08/19/2011 ??? Macrocytosis without anemia 04/22/2012 ??? Asthma ([facility]) allergic triggers ??? Chronic obstructive asthma, unspecified (HRC) 10/08/2010 Import from [employer] Past Surgical History Procedure Laterality Date ??? Gastr restirct w/byps; w/sb recon 09/23 ??? Cholecystectomy; w/cholangiography 09/23 done during gastric bypass surgery ??? Gastric bypass 2002 ??? [place] teeth extraction ??? Eye surgery PRK ??? [...] - 09/24/2016 9:26 AM CDT Performed at [facility], [address] [place] [address] CLIA number [id number] Olamide Rodney MD LAB_1 Performing Organization Address City/State/ZIP Code Phon e Number PN SOFT [address] [place] [address] (ABNORMAL) ALT (SGPT) (09/24/2016 7:50 AM CDT) [facility] Method Time Signature Alanine 82 (H) 9 - 55 PN SOFT Aminotransferase U/L Specimen Anatomical Collection Method Collection Time Receive d Time (Source) Location / / Volume Laterality 09/24/2016 7:50 AM 7 7:49 CDT AM CDT Narrative PN SOFT - 09/24/2016 8:09 AM CDT Performed at [facility], [address] [place] [address] CLIA number [id number] Olamide Rodney MD LAB_1 Performing Organization Address [facility]/ZIP Code Phon e Number PN SOFT [address] [place] [address] Zinc, Serum (09/24/2016 7:50 AM CDT) athologist [...] Test developed and characteristics deter mined by [facility]. See Compliance Statement B : [facility]CS Performed by [facility], [address] [place] [id number] www.[email or web address], Raffi Jha MD - Lab . Director Specimen Anatomical Collection Method Collection Time Receive d Time (Source) Location / / Volume Laterality 09/24/2016 7:50 AM 7 1:21 CDT PM CDT Narrative PN SOFT - 09/26/2016 7:31 AM CDT Performed at [facility] [address] [place] [address] CLIA number [id number] Olamide Rodney MD LAB_1 Performing Organization Address City/[facility]/ZIP Code Phon e Number PN SOFT [address] [place] [address] VITAMIN D 25-HYDROXY, TOTAL (09/24/2016 7:50 AM [...] - 09/24/2016 5:37 PM CDT Performed at [facility], [address] [place] [address] CLIA number [id number] Olamide Rodney MD LAB_1 Performing Organization Address [facility] Phon e Number PN SOFT [address] [place] [address] Vitamin B6 (09/24/2016 7:50 AM CDT) athologist Signature Vitamin B6 27.5 20.0 - 125.0 PN SOFT nmol/L Comment: INTERPRETIVE INFORMATION: Vitamin B6 (Py ridoxal 5-Phosphate) Pyridoxal 5'-phosphate measured in a spe cimen collected following an 8-hour or overnight fast ac curately indicates vitamin B6 nutritional status. Non-fasti ng specimen concentration reflects recent vitamin in take. Test developed and characteristics deter mined by [facility]. See Compliance Statement B : [facility]CS Performed by [facility], [address] [place] [id number] [email or web address], Raffi Jha MD - Lab . Director Specimen Anatomical Collection Method Collection Time Receive d Time (Source) Location / / Volume Laterality 09/24/2016 7:50 AM 7 1:03 CDT PM CDT Narrative PN SOFT - 09/26/2016 9:36 AM CDT Performed at [facility] [address] [place] [address] CLIA number [id number] Olamide Rodney MD LAB_1 Performing Organization Address City/[facility] Phon e Number PN SOFT [address] [place] [address] [phone] (ABNORMAL) Vitamin B1 (09/24/2016 7:50 AM CDT) [...] Test developed and characteristics deter mined by [facility]. See Compliance Statement B : [facility]CS Performed by [facility], [address] [place] [address] www.[email or web address], Raffi Jha MD - Lab . Director Specimen Anatomical Collection Method Collection Time Receive d Time (Source) Location / / Volume Laterality 09/24/2016 7:50 AM 7 1:04 CDT PM CDT Narrative PN SOFT - 09/26/2016 10:26 PM CDT Performed at [facility] [address] [place] [address] CLIA number [id number] Olamide Rodney MD LAB_1 Performing Organization Address City/State/ZIP Code Phon e Number PN SOFT [address] [place] [address] Vitamin A (Retinol) (09/24/2016 7:50 AM CDT) athologist Signature Retinol 0.39 0.30 - PN SOFT (Vitamin A) 1.20 mg/L Retinyl <0.02 0.00 - PN SOFT Palminate 0.10 mg/L Vitamin A Normal PN SOFT Interp Comment: Test developed and characteristics deter mined by [facility]. See Compliance Statement B : [facility]CS Performed by [facility], [address] [place] [address] www.[email or web address], Raffi Jha MD - Lab . Director Specimen Anatomical Collection Method Collection Time Receive d Time (Source) Location / / Volume Laterality 09/24/2016 7:50 AM 7 1:04 CDT PM CDT Narrative PN SOFT - 09/26/2016 11:03 PM CDT Performed at [facility] [address] [place] [address] CLIA number [id number] Olamide Rodney MD LAB_1 Performing Organization Address [facility] Phon e Number PN SOFT [address] [place] [address] INTACT PTH (09/24/2016 7:50 AM CDT) athologist Signature PTH 88 10 - 100 PN SOFT pg/mL Specimen Anatomical Collection Method Collection Time Receive d Time (Source) Location / / Volume Laterality 09/24/2016 7:50 AM 7 1:04 CDT PM CDT Narrative PN SOFT - 09/24/2016 3:14 PM CDT Performed at [address] [address] CLIA number [id number] Olamide Rodney MD LAB_1 Performing Organization Address [facility] Phon e Number PN SOFT [address] [place] [address] IRON PROFILE (IRON,TIBC,%SAT.(CALC)) (09/24/2016 7:50 AM CDT) [...] - 09/24/2016 3:23 PM CDT Performed at [address] [address] CLIA number [id number] Olamide Rodney MD LAB_1 Performing Organization Address [facility] Phon e Number PN SOFT [address] [place] [address] (ABNORMAL) HGB A1C (09/24/2016 7:50 AM CDT) athologist Signature HGB A1C 6.4 (H) 4.0 - 5.6 % PN SOFT Specimen Anatomical Collection Method Collection Time Receive d Time (Source) Location / / Volume Laterality 09/24/2016 7:50 AM 7 1:14 CDT PM CDT Narrative PN SOFT - 09/24/2016 2:31 PM CDT Performed at [address] [address] CLIA number [id number] Olamide Rodney MD LAB_1 Performing Organization Address [facility] Phon e Number PN SOFT [address] [place] [address] FOLATE ONLY (4HR FAST RECOMMENDED) (09/24/2016 7:50 AM CDT) athologist Signature Serum Folate 19.4 7.0 - PN SOFT 9,999.9 ng/mL Specimen Anatomical Collection Method Collection Time Receive d Time (Source) Location / / Volume Laterality 09/24/2016 7:50 AM 7 1:17 CDT PM CDT Narrative PN SOFT - 09/24/2016 5:37 PM CDT Performed at [address] [address] CLIA number [id number] Olamide Rodney MD LAB_1 Performing Organization Address [facility] Phon e Number PN SOFT [address] [place] [address] B12 ONLY (09/24/2016 7:50 AM CDT) athologist Signature Vitamin B12 595 213 - 816 PN SOFT pg/dL Specimen Anatomical Collection Method Collection Time Receive d Time (Source) Location / / Volume Laterality 09/24/2016 7:50 AM 7 1:20 CDT PM CDT Narrative PN SOFT - 09/24/2016 6:08 PM CDT Performed at [address] [address] CLIA number [id number] Olamide Rodney MD LAB_1 Performing Organization Address [facility] Phon e Number PN SOFT [address] [place] [address] FERRITIN (09/24/2016 7:50 AM CDT) athologist Signature Ferritin Serum 42 9 - 204 PN SOFT ng/mL Specimen Anatomical Collection Method Collection Time Receive d Time (Source) Location / / Volume Laterality 09/24/2016 7:50 AM 7 1:20 CDT PM CDT Narrative PN SOFT - 09/24/2016 3:28 PM CDT Performed at [place] [address] [place] [address] CLIA number [id number] Olamide Rodney MD LAB_1 Performing Organization Address [facility] Phon e Number PN SOFT [address] [place] [address] Copper, Serum (09/24/2016 7:50 AM CDT) athologist [...] malabsorptio n. See Compliance Statement B at [email or web address] Performed by [facility], [address] [place] [address] www.[email or web address], Raffi Jha MD - Lab . Director Specimen Anatomical Collection Method Collection Time Receive d Time (Source) Location / / Volume Laterality 09/24/2016 7:50 AM 7 1:21 CDT PM CDT Narrative PN SOFT - 09/26/2016 7:31 AM CDT Performed at [facility] [address] [place] [address] CLIA number [id number] Olamide Rodney MD LAB_1 Performing Organization Address [facility] Phon e Number PN SOFT [address] [place] [address] Complete Blood Count-No Diff (09/24/2016 7:50 AM [...] - 09/24/2016 8:00 AM CDT Performed at [facility], [address] [place], [place] [address] CLIA number [id number] Olamide Rodney MD LAB_1 Performing Organization Address City/[facility] Phon e Number PN SOFT [address] [place] [address] LIPID PANEL AND DIRECT LDL(IF NEEDED) (09/24/2016 [...] - 09/24/2016 8:09 AM CDT Performed at [facility], [address] [place] [address] CLIA number [id number] Olamide Rodney MD LAB_1 Performing Organization Address City/State/ZIP Code Phon e Number PN SOFT [address] [place] [address] (ABNORMAL) Basic Metabolic Panel (09/24/2016 7:50 AM [...] - 09/24/2016 8:09 AM CDT Performed at [facility], [address] [place] [address] CLIA number [id number] Olamide Rodney MD LAB_1 Performing Organization Address City/State/ZIP Code Phon e Number PN SOFT [address] [place] [address] documented in this encounter Visit Diagnoses Diagnosis [...] status documented in this encounter Care Teams Small Arms Artillery Repairer Relationship Specialty Start Date End Date Olamide Rodney MD PCP - General 09/25/10 01/11/21 [address] [place] [address] documented as of this encounter
--- OUTSIDE RECORDS SUMMARY | 2022-02-08 14:25 | XMS_ITS | Encounter Summary ---
:1960 Author Organization [employer] Address [address] [place] [address] Care Team Providers Name Role Phone Olamide Rodney MD Primary Care Provider Reason for Referral Specialty Diagnoses / Procedures Referred By Contact Refer red To Contact Olamide Rodney MD [address] [place], [place] [address] Referral ID Status Reason Start Date Expiration Date Visits Requ ested Visits Authorized Reason for Visit Reason Comments Foot Pain Encounter Details Date Type Department Care Team Description 03/28/2015 Initial Consult [facility] Ronal Hinojosa , Achilles tendinitis of right lower extremity (Primary Dx); MedSurg DPM Heel pain, right; [address] [address] [place] [address] [place] [phone] [address] Social History Tobacco Use Types Packs/Day Years [...] ??? Actinic keratoses 04/23/2011 ??? Endometrial cancer ([facility]) 04/23/2011 ??? Nondependent alcohol abuse 04/23/2011 ??? Chronic abdominal pain 04/23/2011 ??? Varicose veins 04/23/2011 ??? Superficial thrombophlebitis 04/23/2011 ??? S/P gastric bypass 04/23/2011 ??? Hx of cancer of endometrium 07/26/2011 ??? Unspecified asthma(493.90) ([facility]) 08/19/2011 ??? Macrocytosis without anemia 04/22/2012 ??? Asthma ([facility]) allergic triggers Patient Active Problem List Diagnosis Date Noted ??? 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 Alcoholism, chronic ([facility]) 05/08/2014 ??? Osteopenia 03/07/2014 ??? Macrocytosis without anemia 04/22/2012 Class: Chronic ??? Unspecified asthma(493.90) ([facility]) 08/19/2011 Class: Chronic ??? Hx of [...] Date ??? Gastric bypass surgery 2002 ??? Kiln tooth extraction ??? Eye surgery PRK ??? David and bso endometrial cancer ??? Cholecystectomy ??? Lipectomy 2004 ??? Ovary removal ??? 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 year old female [...] Achilles tendon. There is no pain with [id number]-[id number]-[id number] compression of the heel. There are no [...] of mechanical control. She has tried an [id number] insert in the past but does not use these in her athletic shoes. All questions answered. The patient was discharged ambulatory and in stable condition. Orders Placed This Encounter Procedures ??? PHYSICAL THERAPY CONSULT ADULT/PEDS (AMB) No orders of the defined types were placed in this encounter. (This note was created using voice recognition software and may contain some financial processing clerk errors) documented in this encounter Plan of [...] limb documented in this encounter Care Teams Wedding Decorator Relationship Specialty Start Date End Date Olamide Rodney MD PCP - General 09/25/10 01/11/21 [address] [place] [address] documented as of this encounter
--- OUTSIDE RECORDS SUMMARY | 2022-02-08 14:25 | XMS_ITS | Encounter Summary ---
:1960 Author Organization [employer] Address [address], [place] [address] Care Team Providers Name Role Phone Olamide Rodney MD Primary Care Provider Reason for Visit Reason Comments Follow-up Encounter Details Date Type Department Care Team Description 09/28/2014 [facility] History o f Obstetrics/Gynecolog MD Joni endometrial cancer y [address] (Primary Dx) [address] [place] [address] [place] [address] [phone] Social History Tobacco Use Types Packs/Day Years [...] Filed: 09/28/141428 Note Time: 09/28/141358 Status: Signed Technical Customer Support Specialist: Jeremy Madrid MD (Physician) NAME: PATY LLAMAS MR#: [id number] CSN: [id number] AUTHENTICATING CLINICIAN: Jeremy Madrid MD CONFIRM #: [id number] LOC: 512 CLINIC PROGRESS NOTE DATE OF [...] can be annually. IRA:DUANE C: CONFIRM #: [id number] documented in this encounter Plan of Treatment [...] - 10/03/2014 3:48 PM CDT Performed at [facility], [address] [place] [address] FINAL GYNECOLOGICAL CYTOLOGY REPORT Pathology #: [id number] ?Date Obtained: 09/28/2014 ? Date Received: 09/29/2014 [...] Jeremy Madrid MD LAB_1 Performing Organization Address City/[facility] Phon e Number HP CONVERSION Pap Smear Order (09/28/2014 7:27 AM CDT) [facility] Method Time Signature Pap Smear Collected HP CONVERSION Monolayer tracking test Specimen Anatomical Collection Method Collection Time Receive d Time (Source) Location / / Volume Laterality 09/28/2014 7:27 AM 5 8:43 CDT AM CDT Narrative HP CONVERSION - 10/03/2014 3:45 PM CDT Performed at [facility], [facility] [place] [address] Jeremy Madrid MD LAB_1 Performing Organization Address [place]/[facility] Phon e Number HP CONVERSION documented in this encounter Visit Diagnoses Diagnosis History of endometrial cancer - Primary Personal history of malignant neoplasm o f other parts of uterus documented in this encounter Care Teams Syrup Machine Laborer Relationship Specialty Start Date End Date Olamide Rodney MD PCP - General 09/25/10 01/11/21 [address] [place], [place] [address] documented as of this encounter
--- OUTSIDE RECORDS SUMMARY | 2022-02-08 14:25 | XMS_ITS | Encounter Summary ---
:1960 Author Organization [employer] Address [address] [place] [address] Care Team Providers Name Role Phone Shira Rodney MD Primary Care Provider Reason for Visit Reason Comments Refill sertraline (ZOLOFT) 50 MG ta blet [Pharmacy Med Name: SERTRALINE 50MG TABLETS] Encounter Details Date Type Department Care Team Description 05/12/2016 Refill [facility] Shira Rodney, Refill (sertraline Medicine (ZOLOFT) 50 MG tablet [address] [Pharmacy Med Name: [place] [address] Blvd SERTRALINE 50MG [phone] [place], [place] TABLETS]) [address] (Wo rk) Social History [...] Provider: SHIRA RODNEY Ordering User: MEAGAN AYALA NEERING SECRETARY Interface, Out Asthmatx Query - 05/12/2016 3:15 AM CST sertraline [...] 86 mm Hg on 04/02/2016 Powered by [employer], Reference: [id number], 05/12/2016 3:15:13 AM ENGINEERING SECRETARY, Pool: VIRGILIO ROLLINS REFILL ([id number]) NEERING SECRETARY documented in this encounter Plan of Treatment Not on filedocumented as of this encounter Visit Diagnoses Not on filedocumented in this encounter Care Teams Logging Worker Relationship Specialty Start Date End Date Shira Rodney MD PCP - General 09/25/10 01/11/21 [address] [place] [address] documented as of this encounter
--- OUTSIDE RECORDS SUMMARY | 2022-02-08 14:25 | XMS_ITS | Encounter Summary ---
:1960 Author Organization [employer] Address [address] [place] [address] Care Team Providers Name Role Phone Olamide Rodney MD Primary Care Provider Encounter Details Date Type Department Care Team Description 03/15/2015 Lab Visit [facility] y S/P gastric bypass; [address] [facility] Diabetes type 2, [place] [address] Social History Tobacco Use Types Packs/Day Years [...] - 03/15/2015 8:09 AM CDT Performed at [facility], [address] [place] [address] Olamide Rodney MD LAB_1 Performing Organization Address City/[facility] Phon e Number HP CONVERSION (ABNORMAL) Intact PTH (03/15/2015 7:57 AM CDT) athologist Signature PTH 113 (H) 10 - 100 HP CONVERSION pg/mL Specimen Anatomical Collection Method Collection Time Receive d Time (Source) Location / / Volume Laterality 03/15/2015 7:57 AM 5 3:26 CDT PM CDT Narrative HP CONVERSION - 03/15/2015 6:13 PM CDT Performed at [address] [address] Olamide Rodney MD LAB_1 Performing Organization Address City/[facility] Phon e Number HP CONVERSION Calcium (03/15/2015 7:57 AM CDT) athologist Signature Calcium 9.5 8.5 - 10.5 HP CONVERSION mg/dL Specimen Anatomical Collection Method Collection Time Receive d Time (Source) Location / / Volume Laterality 03/15/2015 7:57 AM 5 7:57 CDT AM CDT Narrative HP CONVERSION - 03/15/2015 9:08 AM CDT Performed at [facility], [address] [place] [address] Olamide Rodney MD LAB_1 Performing Organization Address [facility] Phon e Number HP CONVERSION Ferritin (03/15/2015 7:57 AM CDT) athologist Signature Ferritin Serum 18 10 - 291 HP CONVERSION ng/mL Specimen Anatomical Collection Method Collection Time Receive d Time (Source) Location / / Volume Laterality 03/15/2015 7:57 AM 5 1:04 CDT PM CDT Narrative HP CONVERSION - 03/15/2015 2:41 [place] [address] Olamide Rodney MD LAB_1 Performing Organization Address City/[facility] Phon e Number HP CONVERSION Complete Blood [...] - 03/15/2015 8:09 AM CDT Performed at [facility], [address] [place] [address] Olamide Rodney MD LAB_1 Performing Organization Address [...] - 03/15/2015 3:04 PM CDT Performed at [facility], [address] [place] [address] Olamide Rodney MD LAB_1 Performing Organization Address City/[facility] Code Phon e Number HP CONVERSION ALT (SGPT) (03/15/2015 7:57 AM CDT) [facility] gist Method Time Signature Alanine 34 4 - 55 HP CONVERSION Aminotransferase U/L Specimen Anatomical Collection Method Collection Time Receive d Time (Source) Location / / Volume Laterality 03/15/2015 7:57 AM 5 7:57 CDT AM CDT Narrative HP CONVERSION - 03/15/2015 9:08 AM CDT Performed at [facility], [address] [place] [address] Olamide Rodney MD LAB_1 Performing Organization Address City/[facility] Phon e Number HP CONVERSION documented in this encounter Visit Diagnoses Diagnosis S/P gastric bypass Bariatric surgery status Diabetes type 2, controlled (HRC) Type II or unspecified type diabetes rod litus without mention of complication, not stated as uncontrolled documented in this encounter Care Teams Heating And Ventilating Worker Relationship Specialty Start Date End Date Olamide Rodney MD PCP - General 09/25/10 01/11/21 [address] [place] [address] documented as of this encounter
--- OUTSIDE RECORDS SUMMARY | 2022-02-08 14:25 | XMS_ITS | Encounter Summary ---
:1960 Author Organization [employer] Address [address] [address] Care Team Providers Name Role Phone Olamide Rodney MD Primary Care Provider Reason for Visit Reason Comments Medication Questions Encounter Details Date Type Department Care Team Description 09/12/2014 Telephone [facility] Olamide Rodney, Medication Questions Medicine [address] [address] [facility] [phone] [place] [address] (Wo rk) Social History Tobacco [...] on filedocumented in this encounter Care Teams Antique Repairer Relationship Specialty Start Date End Date Olamide Rodney MD PCP - General 09/25/10 01/11/21 [address] [place] [address] documented as of this encounter
--- OUTSIDE RECORDS SUMMARY | 2022-02-08 14:25 | XMS_ITS | Encounter Summary ---
:1960 Author Organization [employer] Address [address] [place] [address] Care Team Providers Name Role Phone Olamide Rodney MD Primary Care Provider Reason for Visit Reason Comments Medication Request Encounter Details Date Type Department Care Team Description 05/11/2015 Nurse Triage [facility] Olamide Rodney, Nv dication Request Medicine [address] [address] [facility] [phone] [place] [address] (Wo rk) Social History Tobacco [...] come over this afternoon for work in TAL GRINDER Stacie Germain RN - 05/11/2015 11:13 AM CST Reason for Call: Appointment Work In requested. Next Steps: Document further recommendations and route to appropriate person or pool. Patient IS expecting a call back from Care Team. Additional Information:Depression/Medication request Protocol: [id number] Affirmative: Patient wants to be seen Disposition [...] well for her. Please call pt at [phone] to advise. TAL GRINDER Miguelina Jarquin - 05/11/2015 10:55 AM CST [...] back regarding all of this. Please advise. TAL GRINDER documented in this encounter Plan of Treatment Not on filedocumented as of this encounter Visit Diagnoses Not on filedocumented in this encounter Care Teams Sports Specialist Relationship Specialty Start Date End Date Olamide Rodney MD PCP - General 09/25/10 01/11/21 [address] [place] [address] documented as of this encounter
--- OUTSIDE RECORDS SUMMARY | 2022-02-08 14:25 | XMS_ITS | Encounter Summary ---
:1960 Author Organization [employer] Address [address] [place] [address] Care Team Providers Name Role Phone Olamide Rodney MD Primary Care Provider Encounter Details Date Type Department Care Team Description 09/24/2016 Lab Visit [facility] Status post bariatric surger y; [address] [employer] Intestinal malabsorption, un specified type [K90.9]; [place] [address] Embolism and thrombosis (HRC ); [phone] S/P gastric byp ass Social History Tobacco [...] 09/24/2016 9:26 AM CDT Performed at [facility], [address] [place] [address] CLIA number [id number] Olamide Rodney MD LAB_1 Performing Organization Address City/State/ZIP Code Phon e Number PN SOFT [address] [place], [place] [address] (ABNORMAL) ALT (SGPT) (09/24/2016 7:50 AM CDT) [facility] gist Method Time Signature Alanine 82 (H) 9 - 55 PN SOFT Aminotransferase U/L Specimen Anatomical Collection Method Collection Time Receive d Time (Source) Location / / Volume Laterality 09/24/2016 7:50 AM 7 7:49 CDT AM CDT Narrative PN SOFT - 09/24/2016 8:09 AM CDT Performed at [facility], [address] [place] [address] CLIA number [id number] Olamide Rodney MD LAB_1 Performing Organization Address City/[facility] Code Phon e Number PN SOFT [address] [place] [address] Zinc, Serum (09/24/2016 7:50 AM CDT) athologist [...] Test developed and characteristics deter mined by [employer]. See Compliance Statement B : [employer] Performed by [facility], [address] [place] [address] www.[employer], Raffi Jha MD - Lab . Director Specimen Anatomical Collection Method Collection Time Receive d Time (Source) Location / / Volume Laterality 09/24/2016 7:50 AM 7 1:21 CDT PM CDT Narrative PN SOFT - 09/26/2016 7:31 AM CDT Performed at [facility] [address] [place] [address] CLIA number [id number] Olamide Rodney MD LAB_1 Performing Organization Address City/[facility] Phon e Number PN SOFT [address] [place] [address] VITAMIN D 25-HYDROXY, TOTAL (09/24/2016 7:50 AM [...] - 09/24/2016 5:37 PM CDT Performed at [facility] [address] [place] [address] CLIA number [id number] Olamide Rodney MD LAB_1 Performing Organization Address City/[facility] Code Phon e Number PN SOFT [address] [place] [address] [phone] Vitamin B6 (09/24/2016 7:50 AM [...] Test developed and characteristics deter mined by [employer]. See Compliance Statement B : [employer] Performed by [facility], [address] [place] [address] www.[employer], Raffi Jha MD - Lab . Director Specimen Anatomical Collection Method Collection Time Receive d Time (Source) Location / / Volume Laterality 09/24/2016 7:50 AM 7 1:03 CDT PM CDT Narrative PN SOFT - 09/26/2016 9:36 AM CDT Performed at [facility] [address] [place] [address] CLIA number [id number] Olamide Rodney MD LAB_1 Performing Organization Address City/[facility] Phon e Number PN SOFT [address] [place] [address] (ABNORMAL) Vitamin B1 (09/24/2016 7:50 AM CDT) [...] Test developed and characteristics deter mined by [employer]. See Compliance Statement B : [employer] Performed by [facility], [address] [place] [address] www.[employer], Raffi Jha MD - Lab . Director Specimen Anatomical Collection Method Collection Time Receive d Time (Source) Location / / Volume Laterality 09/24/2016 7:50 AM 7 1:04 CDT PM CDT Narrative PN SOFT - 09/26/2016 10:26 PM CDT Performed at [facility] [address] [place] [address] CLIA number [id number] Olamide Rodney MD LAB_1 Performing Organization Address [facility] Phon e Number PN SOFT [address] [place] [address] Vitamin A (Retinol) (09/24/2016 7:50 AM CDT) athologist Signature Retinol 0.39 0.30 - PN SOFT (Vitamin A) 1.20 mg/L Retinyl <0.02 0.00 - PN SOFT Palminate 0.10 mg/L Vitamin A Normal PN SOFT Interp Comment: Test developed and characteristics deter mined by [employer]. See Compliance Statement B : [employer] Performed by [facility], [address] [place] [address] www.[employer], Raffi Jha MD - Lab . Director Specimen Anatomical Collection Method Collection Time Receive d Time (Source) Location / / Volume Laterality 09/24/2016 7:50 AM 7 1:04 CDT PM CDT Narrative PN SOFT - 09/26/2016 11:03 PM CDT Performed at [facility] [address] [place] [address] CLIA number [id number] Olamide Rodney MD LAB_1 Performing Organization Address [facility] Phon e Number PN SOFT [address] [place] [address] INTACT PTH (09/24/2016 7:50 AM CDT) athologist Signature PTH 88 10 - 100 PN SOFT pg/mL Specimen Anatomical Collection Method Collection Time Receive d Time (Source) Location / / Volume Laterality 09/24/2016 7:50 AM 7 1:04 CDT PM CDT Narrative PN SOFT - 09/24/2016 3:14 PM CDT Performed at [address] [address] CLIA number [id number] Olamide Rodney MD LAB_1 Performing Organization Address [facility] Phon e Number PN SOFT [address] [place] [address] IRON PROFILE (IRON,TIBC,%SAT.(CALC)) (09/24/2016 7:50 AM CDT) [...] - 09/24/2016 3:23 PM CDT Performed at [address] [address] CLIA number [id number] Olamide Rodney MD LAB_1 Performing Organization Address [facility] Phon e Number PN SOFT [address] [place] [address] (ABNORMAL) HGB A1C (09/24/2016 7:50 AM CDT) athologist Signature HGB A1C 6.4 (H) 4.0 - 5.6 % PN SOFT Specimen Anatomical Collection Method Collection Time Receive d Time (Source) Location / / Volume Laterality 09/24/2016 7:50 AM 7 1:14 CDT PM CDT Narrative PN SOFT - 09/24/2016 2:31 PM CDT Performed at [address] [address] CLIA number [id number] Olamide Rodney MD LAB_1 Performing Organization Address [facility] Phon e Number PN SOFT [address] [place] [address] FOLATE ONLY (4HR FAST RECOMMENDED) (09/24/2016 7:50 AM CDT) athologist Signature Serum Folate 19.4 7.0 - PN SOFT 9,999.9 ng/mL Specimen Anatomical Collection Method Collection Time Receive d Time (Source) Location / / Volume Laterality 09/24/2016 7:50 AM 7 1:17 CDT PM CDT Narrative PN SOFT - 09/24/2016 5:37 PM CDT Performed at [address] [address] CLIA number [id number] Olamide Rodney MD LAB_1 Performing Organization Address [facility] Phon e Number PN SOFT [address] [place] [address] B12 ONLY (09/24/2016 7:50 AM CDT) athologist Signature Vitamin B12 595 213 - 816 PN SOFT pg/dL Specimen Anatomical Collection Method Collection Time Receive d Time (Source) Location / / Volume Laterality 09/24/2016 7:50 AM 7 1:20 CDT PM CDT Narrative PN SOFT - 09/24/2016 6:08 PM CDT Performed at [address] [address] CLIA number [id number] Olamide Rodney MD LAB_1 Performing Organization Address [facility] Phon e Number PN SOFT [address] [place] [address] FERRITIN (09/24/2016 7:50 AM CDT) athologist Signature Ferritin Serum 42 9 - 204 PN SOFT ng/mL Specimen Anatomical Collection Method Collection Time Receive d Time (Source) Location / / Volume Laterality 09/24/2016 7:50 AM 7 1:20 CDT PM CDT Narrative PN SOFT - 09/24/2016 3:28 PM CDT Performed at [facility] [address] [place] [address] CLIA number [id number] Olamide Rodney MD LAB_1 Performing Organization Address City/[facility] Phon e Number PN SOFT [address] [place] [address] Copper, Serum (09/24/2016 7:50 AM CDT) athologist [...] malabsorptio n. See Compliance Statement B at [email or web address] Performed by [facility], [address] [place] [address] www.[employer], Raffi Jha MD - Lab . Director Specimen Anatomical Collection Method Collection Time Receive d Time (Source) Location / / Volume Laterality 09/24/2016 7:50 AM 7 1:21 CDT PM CDT Narrative PN SOFT - 09/26/2016 7:31 AM CDT Performed at [facility] [address] [place] [address] CLIA number [id number] Olamide Rodney MD LAB_1 Performing Organization Address City/[facility] Phon e Number PN SOFT [address] [place] [address] Complete Blood Count-No Diff (09/24/2016 7:50 AM [...] 09/24/2016 8:00 AM CDT Performed at [facility], [address] [place] [address] CLIA number [id number] Olamide Rodney MD LAB_1 Performing Organization Address City/[facility] Code Phon e Number PN SOFT [address] [place] [address] LIPID PANEL AND DIRECT LDL(IF NEEDED) (09/24/2016 [...] 09/24/2016 8:09 AM CDT Performed at [facility], [facility] [address] [place] [address] CLIA number [id number] Olamide Rodney MD LAB_1 Performing Organization Address [facility] Phon e Number PN SOFT [address] [place] [address] [phone] (ABNORMAL) Basic Metabolic Panel (09/24/2016 7:50 AM [...] 09/24/2016 8:09 AM CDT Performed at [facility], [address] [place] [address] CLIA number [id number] Olamide Rodney MD LAB_1 Performing Organization Address City/State/ZIP Code Phon e Number PN SOFT [address] [place] [address] documented in this encounter Visit Diagnoses Diagnosis Status post bariatric surgery Bariatric surgery status Intestinal malabsorption, unspecified ty pe [K90.9] Embolism and thrombosis (HRC) Embolism and thrombosis of unspecified s ite S/P gastric bypass Bariatric surgery status documented in this encounter Care Teams Boilermaker Industrial Boilers Relationship Specialty Start Date End Date Olamide Rodney MD PCP - General 09/25/10 01/11/21 [address] [place] [address] documented as of this encounter
--- OUTSIDE RECORDS SUMMARY | 2022-02-08 14:25 | XMS_ITS | Encounter Summary ---
:1960 Author Organization [employer] Address [address] [place] [address] Care Team Providers Name Role Phone Olamide Rodney MD Primary Care Provider Encounter Details Date Type Department Care Team Description 03/22/2015 Imaging [facility] Heel pain, right [address] [place], [place] [address] Social History Tobacco Use Types Packs/Day Years [...] ??2 views of right heel. No ac quinault fracture. No dislocation. Prominent plantar calcaneal heel [...] right documented in this encounter Care Teams Gyroscopic Engineering Technician Relationship Specialty Start Date End Date Olamide Rodney MD PCP - General 09/25/10 01/11/21 [address] [place] [address] documented as of this encounter
--- OUTSIDE RECORDS SUMMARY | 2022-02-08 14:26 | XMS_ITS | Encounter Summary ---
:1960 Author Organization [employer] Address [address] [place] [address] Care Team Providers Name Role Phone Olamide Rodney MD Primary Care Provider Reason for Visit Reason Comments HC Phone Visit Encounter Details Date Type Department Care Team Description 05/09/2014 Care Coord Phone [facility] Marylu Gu, [facility] Phone Visit Medicine [facility] [place] [address] [place] [address] [place], [place] [phone] [address] Social History Tobacco Use Types Packs/Day Years Used Date Smoking Tobacco: Never Alcohol Use Standard Drinks/Week Comments Yes 0 (1 standard drink = 0.6 oz pure alcoho l) mod Sex Assigned at Date Recorded Not on file documented as of this encounter Progress Notes Marylu Gu LISW - 05/09/2014 11:09 AM CST Lard [employer]her - Phone Call Contact with: Pt Reason [...] place to go for this. Shared plan: [employer] called a couple MH agencies to verify they take her insurance and will do the 1:1 counseling. [facility] and [facility] [employer] in [place] were available but can'tget in for a few weeks. Left message for pt. Mailed info on al anon groups to at pt's request as well. Pt verbalized understanding and agreed with plan of care and follow up. KLAYER SEWER documented in this encounter Plan of Treatment Not on filedocumented as of this encounter Visit Diagnoses Not on filedocumented in this encounter Care Teams Hemodialysis Rn Relationship Specialty Start Date End Date Olamide Rodney MD PCP - General 09/25/10 01/11/21 [address] [place] [address] documented as of this encounter
--- OUTSIDE RECORDS SUMMARY | 2022-02-08 14:26 | XMS_ITS | Encounter Summary ---
:1960 Author Organization [employer] Address [address] [place] [address] Care Team Providers Name Role Phone Olamide Rodney MD Primary Care Provider Encounter Details Date Type Department Care Team Description 09/02/2014 Lab Visit [facility] Bariatric surgery status; [address] Other symptoms concerning nu trition, metabolism, and development; [place] [address] Other and unspecified postsu rgical nonabsorption; [phone] Diabetes type 2 , controlled; Alcoholism, chr [...] encounter Results AST (09/02/2014 11:02 AM CDT) [facility] gist Method Time Signature Aspartate 30 0 - 45 HP CONVERSION Aminotransferase U/L Specimen Anatomical Collection Method Collection Time Receive d Time (Source) Location / / Volume Laterality 09/02/2014 11:02 09/02/2014 AM CDT 11:01 AM CDT Narrative HP CONVERSION - 09/02/2014 11:41 AM CDT Performed at [facility], [address] [place] [address] Olamide Rodney MD LAB_1 Performing Organization Address [facility] Phon e Number HP CONVERSION ALT (SGPT) (09/02/2014 11:02 AM CDT) [facility] Method Time Signature Alanine 22 4 - 55 HP CONVERSION Aminotransferase U/L Specimen Anatomical Collection Method Collection Time Receive d Time (Source) Location / / Volume Laterality 09/02/2014 11:02 09/02/2014 AM CDT 11:01 AM CDT Narrative HP CONVERSION - 09/02/2014 11:41 AM CDT Performed at [facility], [address] [place] [address] Olamide Rodney MD LAB_1 Performing Organization Address City/[facility] Phon e Number HP CONVERSION TSH AND FREE T4 (FRT4 IF TSH ABNORM) (09/02/2014 11:02 AM CDT) P athologist Signature Thyroid 2.92 0.20 - HP CONVERSION Stimulating 4.50 mIU/L Hormone Specimen Anatomical Collection Method Collection Time Receive d Time (Source) Location / / Volume Laterality 09/02/2014 11:02 09/02/2014 3:36 AM CDT PM CDT Narrative HP CONVERSION - 09/02/2014 4:33 PM CDT Performed at [place] [id number] Olamide Rodney MD LAB_1 Performing Organization Address City/[facility] Code Phon e Number HP CONVERSION Microalb/Creat [...] - 09/02/2014 1:59 PM [place] [address] Olamide Rodney MD LAB_1 Performing Organization Address [facility] Phon e Number HP CONVERSION ZINC, SERUM [...] Test developed and characteristics deter mined by [employer]. See Compliance Statement B : [email or web address] Specimen Anatomical Collection Method Collection Time Receive d Time (Source) Location / / Volume Laterality 09/02/2014 11:02 09/02/2014 AM CDT 12:19 PM CDT Narrative HP CONVERSION - 09/04/2014 12:39 AM CDT Performed at [facility] [address] [place] [address] Olamide Rodney MD LAB_1 Performing Organization Address City/[facility] Code Phon e Number HP CONVERSION Vitamin [...] - 09/03/2014 1:23 PM CDT Performed at [facility], [facility] [place] [address] Olamide Rodney MD LAB_1 Performing Organization Address City/[facility] Phon e Number HP CONVERSION VITAMIN B6 [...] Test developed and characteristics deter mined by [employer]. See Compliance Statement B : PopSe[employer]/UB Access Specimen Anatomical Collection Method Collection Time Receive d Time (Source) Location / / Volume Laterality 09/02/2014 11:02 09/02/2014 6:59 AM CDT PM CDT Narrative HP CONVERSION - 09/06/2014 11:15 PM CDT Performed at [facility] [address] [place] [address] Olamide Rodney MD LAB_1 Performing Organization Address City/[facility] Phon e Number HP CONVERSION VITAMIN B1 [...] Test developed and characteristics deter mined by [employer]. See Compliance Statement B : [employer]/UB Access Specimen Anatomical Collection Method Collection Time Receive d Time (Source) Location / / Volume Laterality 09/02/2014 11:02 09/02/2014 7:00 AM CDT PM CDT Narrative HP CONVERSION - 09/07/2014 7:02 AM CDT Performed at [facility] [address] [place] [address] Olamide Rodney MD LAB_1 Performing Organization Address City/[facility] Phon e Number HP CONVERSION VITAMIN A (09/02/2014 11:02 AM CDT) athologist Signature Retinol 0.63 0.30 - HP CONVERSION (Vitamin A) 1.20 mg/L Retinyl 0.04 0.00 - HP CONVERSION Palminate 0.10 mg/L Vitamin A Normal HP CONVERSION Interp Comment: Test developed and characteristics deter mined by [employer]. See Compliance Statement B : [employer]/CS Specimen Anatomical Collection Method Collection Time Receive d Time (Source) Location / / Volume Laterality 09/02/2014 11:02 09/02/2014 7:00 AM CDT PM CDT Narrative HP CONVERSION - 09/06/2014 10:21 AM CDT Performed at [facility] [address] [place] [address] [place] [address] Olamide Rodney MD LAB_1 Performing Organization Address City/[facility] Phon e Number HP CONVERSION (ABNORMAL) Intact PTH (09/02/2014 11:02 AM CDT) athologist Signature PTH 106 (H) 10 - 100 HP CONVERSION pg/mL Specimen Anatomical Collection Method Collection Time Receive d Time (Source) Location / / Volume Laterality 09/02/2014 11:02 09/02/2014 7:00 AM CDT PM CDT Narrative HP CONVERSION - 09/02/2014 8:16 PM [place] [address] Olamide Rodney MD LAB_1 Performing Organization Address City/[facility] Code Phon e Number HP CONVERSION (ABNORMAL) [...] - 09/02/2014 4:33 PM CDT Performed at [facility], [address] [place] [address] Olamide Rodney MD LAB_1 Performing Organization Address City/[facility] Phon e Number HP CONVERSION (ABNORMAL) Hgb A1c (09/02/2014 11:02 AM CDT) athologist Signature HGB A1C 5.8 (H) 4.0 - 5.6 % HP CONVERSION Specimen Anatomical Collection Method Collection Time Receive d Time (Source) Location / / Volume Laterality 09/02/2014 11:02 09/02/2014 AM CDT 12:42 PM CDT Narrative HP CONVERSION - 09/02/2014 2:29 PM [place] [address] Olamide Rodney MD LAB_1 Performing Organization Address City/[facility] Phon e Number HP CONVERSION Folate Only (4Hr Fast Recommended) (09/02/2014 11:02 AM CDT) athologist Signature Serum Folate >24.0 >5.9 ng/mL HP CONVERSION Specimen Anatomical Collection Method Collection Time Receive d Time (Source) Location / / Volume Laterality 09/02/2014 11:02 09/02/2014 3:36 AM CDT PM CDT Narrative HP CONVERSION - 09/02/2014 4:33 PM CDT Performed at [facility], [address] [place] [address] Olamide Rodney MD LAB_1 Performing Organization Address City/[facility] Phon e Number HP CONVERSION B12 Only (09/02/2014 11:02 AM CDT) athologist Signature Vitamin B12 605 211 911 HP CONVERSION pg/dL Specimen Anatomical Collection Method Collection Time Receive d Time (Source) Location / / Volume Laterality 09/02/2014 11:02 09/02/2014 3:36 AM CDT PM CDT Narrative HP CONVERSION - 09/02/2014 4:33 PM CDT Performed at [facility], [facility] [place] [address] Olamide Rodney MD LAB_1 Performing Organization Address [facility] Phon e Number HP CONVERSION Ferritin (09/02/2014 11:02 AM CDT) athologist Signature Ferritin Serum 14 10 - 291 HP CONVERSION ng/mL Specimen Anatomical Collection Method Collection Time Receive d Time (Source) Location / / Volume Laterality 09/02/2014 11:02 09/02/2014 3:36 AM CDT PM CDT Narrative HP CONVERSION - 09/02/2014 4:33 PM CDT Performed at [facility], [facility] [place] [address] Olamide Rodney MD LAB_1 Performing Organization Address [facility] Phon e Number HP CONVERSION [...] reference intervals for this test in the [facility] Test Directory (PopSeal). Test developed and characteristics deter mined by [employer]. See Compliance Statement B : [employer].MyCosmik/CS Specimen Anatomical Collection Method Collection Time Receive d Time (Source) Location / / Volume Laterality 09/02/2014 11:02 09/02/2014 AM CDT 12:19 PM CDT Narrative HP CONVERSION - 09/04/2014 12:39 AM CDT Performed at [facility] [address] [place] [address] Olamide Rodney MD LAB_1 Performing Organization Address City/[facility] Phon e Number HP CONVERSION [...] - 09/02/2014 11:10 AM CDT Performed at [facility], [address] [place] [address] Olamide Rodney MD LAB_1 Performing Organization Address City/[facility] Phon e Number HP CONVERSION Lipid Panel and Direct LDL(If Needed) (09/02/2014 11:02 AM CDT) [facility] gist Method Time Signature Cholesterol 173 0 [...] - 09/02/2014 11:41 [place] [address] Olamide Rodney MD LAB_1 Performing Organization Address City/[facility] Phon e Number HP CONVERSION Prealbumin (09/02/2014 11:02 AM CDT) athologist Signature Prealbumin 24.2 20.0 - 40.0 HP CONVERSION mg/dL Specimen Anatomical Collection Method Collection Time Receive d Time (Source) Location / / Volume Laterality 09/02/2014 11:02 09/02/2014 3:36 AM CDT PM CDT Narrative HP CONVERSION - 09/02/2014 4:33 PM CDT Performed at [place] [id number] Olamide Rodney MD LAB_1 Performing Organization Address City/[facility] Phon e Number HP CONVERSION (ABNORMAL) Basic [...] - 09/02/2014 11:41 AM CDT Performed at [facility], [address] [place] [address] Olamide Rodney MD LAB_1 Performing Organization Address City/[facility] Phon e Number HP CONVERSION [...] behavior documented in this encounter Care Teams Medical Esthetician Relationship Specialty Start Date End Date Olamide Rodney MD PCP - General 09/25/10 01/11/21 [address] [place] [address] documented as of this encounter
--- OUTSIDE RECORDS SUMMARY | 2022-02-08 14:26 | XMS_ITS | Encounter Summary ---
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 PAST HISTORY: Updated and reviewed on [employer]. MEDICATIONS: Updated and reviewed on [employer]. ALLERGIES: Updated and reviewed on [employer]. OBJECTIVE: VITAL SIGNS: Reviewed on [employer]. GENERAL: She is alert, oriented, in no [...] given a liter of lactated Ringer's. About half-way through this, she felt the urge to [...] for her withdrawal. HAH:MEDQ C: CONFIRM #: [id number] Mindi Bernal RN - 03/05/2014 2:32 PM [...] from the original note were not included. [facility] [address] [place] [address] Dept: [phone] [email or web address] Paty Llamas 03/05/2014 12:01 PM Hospital Encounter Description: Female : 1960 Department: [facility] Dept Thank you for choosing [facility] for your health care visit with Soha Martinez MD. [facility]are happy to care for you and provide this summary of your visit. Your primary manager care is currently listed as Olamide Rodney MD. HERE IS WHAT YOU NEED TO KNOW To learn how you can take steps to stay as healthy as you can be visit [email or web address] HERE IS WHAT YOU NEED TO DO Call your clinic if you develop new or worsening symptoms or if you have questions about your visit or medications. Your to do list Future Appointments Provider Department Dept Phone 03/09/2014 2:40 PM Olamide Rodney MD [facility] [phone] 03/28/2014 7:00 AM Jeremy Madrid MD [facility] [phone] Please arrive 15 minutes early with your insurance card, photo ID, and copay should one apply to your visit. Should the office visit results in a procedure or any type of surgery financial clearance will contact you with an estimate. Should you need to cancel your appointment, please do so before 48 hours of your appointment. 04/18/2014 11:00 AM Elizabet Drew PA-C [facility] [phone] ARRIVE 15 MINUTES EARLY. ALSO BRING A LIST OF ALL CURRENT MEDICATIONS AND OTC SUPPLEMENTS. PLEASE BRING YOUR INSURANCE CARD, COPAYMENT, AND PICTURE ID. Future Orders Complete By Ordering Dept. Hemoglobin A1C Glycosylated 05/22/2011 [facility] Alanine Aminotransferase 03/07/2014 [facility] Aspartate Aminotransferase 03/07/2014 [facility] Complete Blood Count W/Diff 03/07/2014 [facility] Hemoglobin A1C Glycosylated 03/07/2014 [facility] Microalbumin Urine Random 03/07/2014 [facility] Follow-up Information Follow up with Olamide Rodney MD In 4 days. Contact information: [address] [place] [address] HERE IS INFORMATION FROM TODAY'S VISIT [...] Ethnicity Preferred Language 1960 Female White Non- Luxembourger This document contains confidential information about your [...] - 03/05/2014 1:52 PM CDT Performed at [facility], [address] [place] [address] Soha Martinez MD LAB_1 Performing Organization Address City/[facility] Phon e Number HP CONVERSION (ABNORMAL) ANION GAP (03/05/2014 1:46 PM CDT) athologist [facility] ANION GAP 24 (H) 0 - 16 HP CONVERSION Specimen Anatomical Collection Method Collection Time Receive d Time (Source) Location / / Volume Laterality 03/05/2014 1:46 PM 4 1:46 CDT PM CDT Narrative HP CONVERSION - 03/05/2014 2:08 PM CDT Performed at [facility], [address] [place] [address] Soha Martinez MD LAB_1 Performing Organization Address City/[facility] Phon e Number HP CONVERSION (ABNORMAL) Complete Blood Count W/Diff (03/05/2014 1:46 PM CDT) [facility] gist Method Time Signature White [...] - 03/05/2014 1:52 PM CDT Performed at [facility], [address] [place] [address] Soha Martinez MD LAB_1 Performing Organization Address [facility] Phon e Number HP CONVERSION Magnesium (03/05/2014 1:46 PM CDT) P athologist Signature Magnesium 1.8 1.5 - 2.4 HP CONVERSION mg/dL Specimen Anatomical Collection Method Collection Time Receive d Time (Source) Location / / Volume Laterality 03/05/2014 1:46 PM 4 1:46 CDT PM CDT Narrative HP CONVERSION - 03/05/2014 2:08 PM CDT Performed at [facility], [address] [place] [address] Soha Martinez MD LAB_1 Performing Organization Address City/[facility] Phon e Number HP CONVERSION (ABNORMAL) [...] - 03/05/2014 2:08 PM CDT Performed at [place] [address] [place] [address] Soha Martinez MD LAB_1 Performing Organization Address [...] nausea documented in this encounter Care Teams Pail Bailer Relationship Specialty Start Date End Date Olamide Rodney MD PCP - General 09/25/10 01/11/21 [address] [place], [place] [id number] documented as of this encounter
--- OUTSIDE RECORDS SUMMARY | 2022-02-08 14:26 | XMS_ITS | Encounter Summary ---
:1960 Author Organization [employer] Address [address] [place] [address] Care Team Providers Name Role Phone Olamide Rodney MD Primary Care Provider Encounter Details Date Type Department Care Team Description 01/25/2014 Hospital Encounter [facility] 6500 Bright red rectal Endoscopy bleeding [address] 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 Many position changes, multiple doses of sedation and pressure held to abdomen to facilitate passage of scope. documented in this encounter Procedure Notes Tio Stevens MD - 01/25/2014 1:08 PM CDT Procedures signed by Tio Stevens MD at 01/25/14 0678 Author: Tio Stevens MD Service: (none) Author Type: Physician Filed: 01/25/14 1518 Note Time: 01/25/141517 Status: Signed Weight Loss Physician: Tio Stevens MD (Physician) Patient Name: Paty Stovall Procedure Date: 01/25/2014 1:08 PM Date of : 1960 Admit Type: Outpatient Age: 53 Gender: Female Note Status: Finalized Attending MD: Tio Stevens MD Procedure: Colonoscopy Indications: Rectal bleeding, [...] and oxygen saturations were monitored continuously. The [id number] was introduced through the anus and advanced [...] adjustable scope. Procedure Code(s): --- Professional --- 39722, Colonoscopy, flexible, proximal to splenic flexure; diagnostic, with or without collection of specimen(s) by brushing or washing, with or without colon decompression (separate procedure) Diagnosis Code(s): --- Professional --- 569.3, Hemorrhage of rectum and anus V16.0, Family history of malignant neoplasm of gastrointestinal tract 562.10, Diverticulosis of colon (without mention of hemorrhage) CPT (R) 2012 [employer]. All Rights Reserved. The codes documented in this report are preliminary and upon senior receptionist review may be revised to meet current [...] anus documented in this encounter Care Teams Donor Relations Manager Relationship Specialty Start Date End Date Olamide Rodney MD PCP - General 09/25/10 01/11/21 [address] [place] [address] documented as of this encounter
--- OUTSIDE RECORDS SUMMARY | 2022-02-08 14:26 | XMS_ITS | Encounter Summary ---
:1960 Author Organization [employer] Address [address], [place] [address] Care Team Providers Name Role Phone Olamide Rodney MD Primary Care Provider Reason for Visit Reason Comments CANCER Encounter Details Date Type Department Care Team Description 03/28/2014 Office Visit Jeremy Aguiar History o f Obstetrics/Gynecolog MD Joni endometrial cancer y [address] (Primary Dx) [address] [place] [address] [place] [address] [phone] Social History Tobacco Use Types Packs/Day Years [...] 03/28/14 1005 Note Time: 03/28/14952 Status: Signed Shuttle Spotter: Jeremy Madrid MD (Physician) NAME: PATY LLAMAS MR#: [id number] CSN: [id number] AUTHENTICATING CLINICIAN: Jeremy Madrid MD CONFIRM #: [id number] LOC: 512 CLINIC PROGRESS NOTE DATE OF VISIT: 03/28/2014 : 1960 Paty Llamas is a 53-year-old female, who presents today for a cancer surveillance visit. She was diagnosed with a stage IA grade 2 endometrial carcinoma. Surgical staging was performed by Dr. Jackson Iqbal on September 18, 2010. She is now [...] will be indicated. IRA:DUANE C: CONFIRM #: [id number] documented in this encounter Plan of Treatment Not on filedocumented as of this encounter Visit Diagnoses Diagnosis History of endometrial cancer - Primary Personal history of malignant neoplasm o f other parts of uterus documented in this encounter Care Teams Construction Specialist Relationship Specialty Start Date End Date Olamide Rodney MD PCP - General 09/25/10 01/11/21 [address] [place] [address] documented as of this encounter
--- OUTSIDE RECORDS SUMMARY | 2022-02-08 14:26 | XMS_ITS | Encounter Summary ---
:1960 Author Organization [employer] Address [address] [place] [address] Care Team Providers Name Role Phone Olamide Rodney MD Primary Care Provider Encounter Details Date Type Department Care Team Description 10/01/2013 Imaging [facility] hy Routine physical examination [address] [place], [place] [address] Social History Tobacco Use Types Packs/Day Years [...] be communicated to the patient by the [facility] and we will attempt to schedule [...] be communicated to the patient by the [facility] and we will attempt to schedule any recommended imaging follow up with the patient. Olamide Rodney MD RAD [facility] documented in this encounter Visit Diagnoses Diagnosis Routine physical examination Routine general medical examination at a health care facility documented in this encounter Care Teams Apparel Sales Associate Relationship Specialty Start Date End Date Olamide Rodney MD PCP - General 09/25/10 01/11/21 [address] [place] [address] documented as of this encounter
--- OUTSIDE RECORDS SUMMARY | 2022-02-08 14:26 | XMS_ITS | Encounter Summary ---
:1960 Author Organization [employer] Address [address] [address] Care Team Providers Name Role Phone Olamide Rodney MD Primary Care Provider Reason for Visit Reason Comments Test Request Encounter Details Date Type Department Care Team Description 08/16/2014 Telephone [place] [facility] Malka Rodney MD Test Request Medicine [address] [place] [address] [place] [address] [phone] Social History Tobacco Use Types Packs/Day Years [...] a px is just a preventative visit E MANAGEMENT SPECIALIST Olamide Rodney MD - 08/17/2014 1:22 PM CST fasting labs ordered. Patient is scheduled for a physical so hoping that is what visit she is wanting. E MANAGEMENT SPECIALIST Malia Ni RN - 08/16/2014 4:23 PM CST Action requested: Lab Request Additional Info: see below. E MANAGEMENT SPECIALIST Purvi Ritter - 08/16/2014 4:03 PM CST [...] behavior documented in this encounter Care Teams Recruiting Associate Relationship Specialty Start Date End Date Olamide Rodney MD PCP - General 09/25/10 01/11/21 [address] [place] [address] documented as of this encounter
--- OUTSIDE RECORDS SUMMARY | 2022-02-08 14:26 | XMS_ITS | Encounter Summary ---
:1960 Author Organization [employer] Address [address] [address] Care Team Providers Name Role Phone Olamide Rodney MD Primary Care Provider Reason for Visit Reason Comments Hair/Scalp Problem Encounter Details Date Type Department Care Team Description 03/03/2013 Nurse Triage [facility] Olamide Rodney, Hair/Scalp Problem Medicine [address] [address] [facility] [phone] [place] [address] (Wo rk) Social History Tobacco Use Types Packs/Day Years Used Date Smoking Tobacco: Never Alcohol Use Standard Drinks/Week Comments Yes 0 (1 standard drink = 0.6 oz pure alcoho l) mod Sex Assigned at Date Recorded Not on file documented as of this encounter Nursing Notes Allie Santiago, RN - 03/03/2013 9:27 AM CDT Protocol: TRAUMA - [id number] Affirmative: Minor head injury Disposition of Home [...] on filedocumented in this encounter Care Teams Ip/Mosaic Technician Relationship Specialty Start Date End Date Olamide Rodney MD PCP - General 09/25/10 01/11/21 [address] [place] [address] documented as of this encounter
--- OUTSIDE RECORDS SUMMARY | 2022-02-08 14:26 | XMS_ITS | Encounter Summary ---
:1960 Author Organization [employer] Address [address] [place] [address] Care Team Providers Name Role Phone Shira Rodney MD Primary Care Provider Reason for Visit Reason Comments Other Encounter Details Date Type Department Care Team Description 04/27/2014 Hospital Encounter [facility] Malia Zhu MD ETOH abuse [address] [address] [phone] [place] [address] (Wo rk) Social History Tobacco Use Types Packs/Day Years Used Date Smoking Tobacco: Never Alcohol Use Standard Drinks/Week Comments Yes 0 (1 standard drink = 0.6 oz pure alcoho l) mod Sex Assigned at Date Recorded Not on file documented as of this encounter Last Filed Vital Signs Vital Sign Reading Time Taken Comments Blood Pressure 142/86 04/27/2014 10:04 AM SENIOR PRODUCT ANALYST Pulse 88 04/27/2014 10:04 AM SENIOR PRODUCT ANALYST Temperature 36.8 ??C (98.2 ??F) 04/27/2014 10:04 AM SENIOR PRODUCT ANALYST Respiratory Rate 18 04/27/2014 10:04 AM SENIOR PRODUCT ANALYST Oxygen Saturation 97% 04/27/2014 10:04 AM SENIOR PRODUCT ANALYST Inhaled Oxygen Concentration - - Weight - [...] 09/24/2004 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) 200MCG/INH INHALERIndications: Unspecified asthma(493.90) ([facility]) documented as of this encounter ED Notes Malia Zhu MD - 04/27/2014 2:19 PM CST ED Provider Notes signed by Malia Zhu MD at 05/04/141116 Author: Malia Zhu MD Service: (none) Author Type: Physician Filed: 05/04/141116 Note Time: 04/27/141451 Status: Signed Sample Preparation Supervisor: Malia Zhu MD (Physician) NAME: PATY LLAMAS MR#: [id number] CSN: [id number] AUTHENTICATING CLINICIAN: Malia Zhu MD CONFIRM #: [id number] LOC: 520 URGENT CARE PROGRESS NOTE DATE OF VISIT: 04/27/2014 : 1960 CHIEF COMPLAINT: Personal. HPI: This pleasant 53-year-old comes in today complaining of alcohol abuse. Patient says she has a longstanding history of alcohol abuse. She has drank very heavily over the last 10 years. During that time,she had a 6-month time that she was sober, but then her [id number] offered her a drink, and she has [...] lanolin oxycodone. PAST SURGICAL HISTORY: Reviewed through [employer]. MEDICATIONS: Reviewed through [employer]. ALLERGIES: Flovent, lanolin, oxycodone. OBJECTIVE: Temperature 98.2, [...] Alcohol abuse. PLAN: I did speak with [facility] and they are comfortable with taking the patient to help her with detox. I did explain to her that we do not have inpatient alcohol treatment or even the ability to setup for outpatient alcohol treatment at [facility]. She would have to go to [facility], [facility], or [facility]. She says that she wants to go through detox first, and then she will set up for counseling. I did speak to [facility] and they actually can do an internet skyping interview with an alcohol counselor while she is in the hospital. They are comfortable going over to [facility], and her will drive her immediately over there. She left in stable condition. She did want me to let Dr. Rodney know that she was in the hospital and she was doing this, and I will call her and let her know that Paty is in the hospital. [place]: [place] [address] [place] [address] KMM:DUANE C: CONFIRM #: [id number] OR PRODUCT ANALYST Malia Zhu MD - 04/27/2014 10:25 AM CST .dict documented in this encounter Miscellaneous Notes ED AVS Snapshot - Tirso Piedra MD - 04/27/2014 10:33 AM CST Images from the original note were not included. [facility] [address] [place] [address] Dept: [phone] [email or web address] Paty Alvaradon 04/27/2014 10:08 AM Hospital Encounter Description: Female : 1960 Department: [facility] Thank you for choosing [facility] for your health care visit with Malia Zhu MD. Weare happy to care for you and provide this summary of your visit. Your primary health care / medical job titles is currently listed as Shira Rodney MD. HERE IS WHAT YOU NEED TO KNOW To learn how you can take steps to stay as healthy as you can be visit [email or web address] HERE IS WHAT YOU NEED TO DO Call your clinic if you develop new or worsening symptoms or if you have questions about your visit or medications. Your to do list Future Appointments Provider Department Dept Phone 05/04/2014 9:00 AM Shira Rodney MD [facility] [phone] 05/25/2014 3:30 PM Oneida Rivers MD [facility] [phone] If you need to cancel or reschedule your appointment, please call [phone]. Future Orders Complete By Ordering Dept. Alanine Aminotransferase 04/15/2014 [facility] Aspartate Aminotransferase 04/15/2014 [facility] PULMONOLOGY CONSULT ADULT (AMB) As directed [facility] Scheduling Instructions: Your provider has recommended an appointment with [facility]. You may call [phone] to schedule your appointment. If you prefer, a rn examiner will contact you within the next 3 [...] Ethnicity Preferred Language 1960 Female White Non- Nepali This document contains confidential information about your health and care. It is provided directlyto you for your personal, private use only. OR PRODUCT ANALYST documented in this encounter Plan of [...] ago documented in this encounter Care Teams Java Spring Developer Relationship Specialty Start Date End Date Shira Rodney MD PCP - General 09/25/10 01/11/21 [address] [place] [address] documented as of this encounter
--- OUTSIDE RECORDS SUMMARY | 2022-02-08 14:26 | XMS_ITS | Encounter Summary ---
:1960 Author Organization [employer] Address [address] [place] [address] Care Team Providers Name Role Phone Olamide Rodney MD Primary Care Provider Reason for Referral Specialty Diagnoses / Procedures Referred By Contact Refer red To Contact Olamide Rodney MD [address] [place], [place] [address] Referral ID Status Reason Start Date Expiration Date Visits Requ ested Visits Authorized [employer]YEE COMMUNICATIONS INTERN Reason for Visit Reason Comments Sleep problems Encounter Details Date Type Department Care Team Description 05/25/2014 Office Visit [facility] Oneida Rivers MD Circadian rhythm sleep disorder, delayed sleep phase type (Primary Dx); [address] [place] [address] [address] [place] [address] (Wo rk) Social History Tobacco Use Types Packs/Day Years Used Date Smoking Tobacco: Never Alcohol Use Standard Drinks/Week Comments Yes 0 (1 standard drink = 0.6 oz pure alcoho l) mod Sex Assigned at Date Recorded Not on file documented as of this encounter Last Filed Vital Signs Vital Sign Reading Time Taken Comments Blood Pressure 157/89 05/25/2014 3:25 PM EMPLOYEE COMMUNICATIONS INTERN Pulse 76 05/25/2014 3:25 PM EMPLOYEE COMMUNICATIONS INTERN Temperature - - Respiratory Rate - - Oxygen Saturation 100% 05/25/2014 3:25 PM EMPLOYEE COMMUNICATIONS INTERN Inhaled Oxygen Concentration - - Weight 95.3 kg (210 lb) 05/25/2014 3:25 PM EMPLOYEE COMMUNICATIONS INTERN Height 165.1 cm (5' 5) 05/25/2014 3:25 PM EMPLOYEE COMMUNICATIONS INTERN Body Mass Index 34.95 05/25/2014 3:25 PM EMPLOYEE COMMUNICATIONS INTERN documented in this encounter Progress Notes Oneida Rivers MD - 06/02/2014 11:09 AM CST Consult note Sleep Issue HPI: Paty Stovall is a 53 y.o. female seen in consultation for chronic insomnia. This has been present muchof her life. She started using alcohol to combat this. Goes to bed at 11 pm with a sleep latency of 1-2 hours. [place] sleep time would be 2 am-10 am. [...] history that includes Gastric bypass surgery (2002); [place] tooth extraction; eyesurgery; analy and bso; Cholecystectomy; [...] or dysarthria. Clinical data: sleep questionnaire reviewed. [place] sleepiness Scale: 2 Outpatient notes reviewed. ASSESSMENT/PLAN: [...] face counseling/coordination of care with the patient. Oneida Rivers MD OYEE COMMUNICATIONS INTERN documented in this encounter Plan of Treatment Scheduled Referrals Name Type Priority Associated Diagnoses Order S [facility]/Pulmonary Referral Routine Chronic insomnia Or dered: 05/25/2014, Consult-Adult Expires: 05/25 documented as of this encounter Visit Diagnoses Diagnosis Circadian rhythm sleep disorder, delayed sleep phase type - Primary Chronic insomnia Insomnia, unspecified documented in this encounter Care Teams Associate Chief Nurse Relationship Specialty Start Date End Date Olamide Rodney MD PCP - General 09/25/10 01/11/21 [address] [place] [address] documented as of this encounter
--- OUTSIDE RECORDS SUMMARY | 2022-02-08 14:26 | XMS_ITS | Encounter Summary ---
:1960 Author Organization [employer] Address [address] [place] [address] Care Team Providers Name Role Phone Olamide Rodney MD Primary Care Provider Reason for Visit Reason Comments Annual Exam Encounter Details Date Type Department Care Team Description 09/08/2013 Office Visit [place] Olamide Rodney physical examination (Primary Dx); Hayley Antoine MD Macrocytosis without anemia; [address] [place] [address] Elevated transaminase level; [place] [address] Blvd Diabetes type 2, controlled; [phone] [place], [place] S/P gastri c bypass; [address] Menopause Social History Tobacco Use Types Packs/Day [...] fasting labs in mid February. Please call [phone] to schedule your lab appointment. Mammogram [phone] Bone Density [phone] documented in this encounter Progress Notes Olamide [...] years now. Bone density approximately 2008 outside [facility], due in 5 years for repeat. Colonoscopy 2009 outside [facility], patient states it was normal, [...] ??? Diabetes type 2, controlled ([facility]) 04/23/2011 ??? Chronic insomnia 04/23/2011 ??? Actinic keratoses 04/23/2011 ??? Endometrial cancer ([facility]) 04/23/2011 ??? Nondependent alcohol abuse 04/23/2011 ??? Chronic abdominal pain 04/23/2011 ??? Varicose veins 04/23/2011 ??? Superficial thrombophlebitis 04/23/2011 ??? S/P gastric bypass 04/23/2011 ??? Hx of cancer of endometrium 07/26/2011 ??? Unspecified asthma 08/19/2011 ??? Macrocytosis without anemia 04/22/2012 Past Surgical History Procedure Laterality Date ??? Gastric bypass surgery 2003 ??? [place] tooth extraction ??? Eye surgery PRK ??? David and bso endometrial cancer ??? Cholecystectomy ??? Lipectomy 2004 Social History: . 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 Allergies Allergen Reactions ??? Flovent (Fluticasone) [...] fasting labs in mid February. Please call [phone] to schedule your lab appointment. Mammogram [phone] Bone Density [phone] General preventive health measures were reviewed with [...] states documented in this encounter Care Teams Kick Press Setter Relationship Specialty Start Date End Date Olamide Rodney MD PCP - General 09/25/10 01/11/21 [address] [place] [address] documented as of this encounter
--- OUTSIDE RECORDS SUMMARY | 2022-02-08 14:26 | XMS_ITS | Encounter Summary ---
:1960 Author Organization [employer] Address [address] [place] [address] Care Team Providers Name Role Phone Olamide Rodney MD Primary Care Provider Encounter Details Date Type Department Care Team Description 03/16/2014 Lab Visit [facility] Elevated liver function [address] [facility] [place] [address] Social History Tobacco Use Types Packs/Day Years [...] - 03/16/2014 8:32 AM CDT Performed at [facility], [address] [place], [place] [address] Olamide Rodney MD LAB_1 Performing Organization Address [facility] Phon e Number HP CONVERSION (ABNORMAL) Liver Panel(Hepatic Function Panel) (03/16/2014 7:32 AM CDT) [facility] gist Method Time Signature Alk Phos 64 [...] - 03/16/2014 8:32 AM CDT Performed at [facility], [address] [place] [address] Olamide Rodney MD LAB_1 Performing Organization Address [facility] Phon e Number HP CONVERSION documented in this encounter Visit Diagnoses Diagnosis Elevated liver function tests Other abnormal blood chemistry documented in this encounter Care Teams Non Destructive Testing Supervisor Relationship Specialty Start Date End Date Olamide Rodney MD PCP - General 09/25/10 01/11/21 [address] [place], [place] [address] documented as of this encounter
--- OUTSIDE RECORDS SUMMARY | 2022-02-08 14:26 | XMS_ITS | Encounter Summary ---
:1960 Author Organization [employer] Address [address] [place] [address] Care Team Providers Name Role Phone Olamide Rodney MD Primary Care Provider Encounter Details Date Type Department Care Team Description 01/24/2014 Notes/Orders [facility] [address] right red blood per Gastroenterology rectum (Primary Dx) 6[address] [facility]. [address] [place] [phone] (Wo rk) Social History Tobacco Use Types [...] anus documented in this encounter Care Teams Warehouse Receiving Clerk Relationship Specialty Start Date End Date Olamide Rodney MD PCP - General 09/25/10 01/11/21 [address] [place], [place] [address] documented as of this encounter
--- OUTSIDE RECORDS SUMMARY | 2022-02-08 14:26 | XMS_ITS | Encounter Summary ---
:1960 Author Organization [employer] Address [address] [place] [address] Care Team Providers Name Role Phone Olamide Rodney MD Primary Care Provider Reason for Visit Reason Comments RESULTS, TEST Encounter Details Date Type Department Care Team Description 03/10/2014 Telephone [facility] Keri Mcdaniel APRN , RESULTS, TEST Medicine [facility] [address] [facility] [address] [place] [address] [place] [address] [phone] (Wo rk) Social History Tobacco Use Types [...] chemistry documented in this encounter Care Teams Barn Hand Relationship Specialty Start Date End Date Olamide Rodney MD PCP - General 09/25/10 01/11/21 [address] [place], [place] [address] documented as of this encounter
--- OUTSIDE RECORDS SUMMARY | 2022-02-08 14:26 | XMS_ITS | Encounter Summary ---
:1960 Author Organization [employer] [facility] Address [address] [place] [address] Care Team Providers Name Role Phone Olamide Rodney MD Primary Care Provider Reason for Visit Reason Comments SKIN PROBLEM Encounter Details Date Type Department Care Team Description 05/27/2013 Office Visit [facility] Elizabet Drew Actinic keratosis (Primary D x); [address] [facility] JOVAN Antoine Inflamed seborr[place] [address] [facility] [phone] [address] [place] [address] Social History Tobacco Use Types Packs/Day Years Used Date Smoking Tobacco: Never Alcohol Use Standard Drinks/Week Comments Yes 0 (1 standard drink = 0.6 oz pure alcoho l) mod Sex Assigned at Date Recorded Not on file documented as of this encounter Progress Notes Elizabet Drew - 05/27/2013 8:31 AM CST Progress Notes signed by Elizabet Drew PA-C at 05/27/13 3524 Author: Elizabet Drew PA-C Service: (none) Author Type: Physician Advertising Intern Filed: 05/27/13 0878 Note Time: 05/27/13914 Status: Signed Power Project Manager: Elizabet Drew PA-C (Physician Advertising Intern) NAME: FARHADPATY MR#: [id number] CSN: [id number] AUTHENTICATING CLINICIAN: Elizabet Drew PA-C CONFIRM #: [id number] LOC: 527 CLINIC PROGRESS NOTE DATE OF VISIT: 05/27/2013 : 1960 Paty is a 52-year-old female, who presents for evaluation of a lesion along the right hinduism. She has noticed some scaling here over [...] cancer. CURRENT MEDICATIONS: Reviewed and updated in [employer]. ALLERGIES: Reviewed and updated in [employer]. EXAMINATION: Patient is a pleasant, alert, and [...] right temporal hairline. SMC:MEDQ C: CONFIRM #: [id number] [employer] documented in this encounter Plan of Treatment Not on filedocumented as of this encounter Visit Diagnoses Diagnosis Actinic keratosis - Primary Inflamed seborrheic keratosis documented in this encounter Care Teams Medical Radiation Tech Relationship Specialty Start Date End Date Olamide Rodney MD PCP - General 09/25/10 01/11/21 [address] [place] [address] documented as of this encounter
--- OUTSIDE RECORDS SUMMARY | 2022-02-08 14:26 | XMS_ITS | Encounter Summary ---
:1960 Author Organization [employer] Address [address] [place] [address] Care Team Providers Name Role Phone Olamide Rodney MD Primary Care Provider Reason for Visit Reason Comments Provider Orders Encounter Details Date Type Department Care Team Description 05/02/2014 Notes/Orders Heart & Vascular Abiola Salgado, Varicose veins of [place] [facility] & DELICATESSEN SLICER, [employer] WEBSPHERE PORTAL DEVELOPER lower extremities with Vein Clinic [address] [facility] other complications [address] [facility]. [place], [place] (Primary Dx) [place] [address] [id number] [phone] Social History Tobacco Use Types Packs/Day Years [...] Primary documented in this encounter Care Teams Auto Body Mechanic Apprentice Relationship Specialty Start Date End Date Olamide Rodeny MD PCP - General 09/25/10 01/11/21 [address] [place], [place] [address] documented as of this encounter
--- OUTSIDE RECORDS SUMMARY | 2022-02-08 14:26 | XMS_ITS | Encounter Summary ---
:1960 Author Organization [employer] Address [address], [place] [address] Care Team Providers Name Role Phone Olamide Rodney MD Primary Care Provider Reason for Visit Reason Comments Appt. Needed Encounter Details Date Type Department Care Team Description 01/21/2014 Telephone [facility] 650Venkat Dumont MD Appt. Needed Gastroenterology [address] [place] [address] [place], [place] [address] [phone] Social History Tobacco Use Types Packs/Day Years [...] anus documented in this encounter Care Teams Boat Engine Mechanic Relationship Specialty Start Date End Date Olamide Rodney MD PCP - General 09/25/10 01/11/21 [address] [place] [address] documented as of this encounter
--- OUTSIDE RECORDS SUMMARY | 2022-02-08 14:26 | XMS_ITS | Encounter Summary ---
:1960 Author Organization [employer] Address [address] [place] [address] Care Team Providers Name Role Phone Olamide Rodney MD Primary Care Provider Reason for Visit Reason Comments UPDATE Encounter Details Date Type Department Care Team Description 04/29/2014 Telephone [facility] Mlaka Rodney MD UPDATE Medicine [address] [place] [address] [place] [address] [phone] Social History Tobacco Use Types Packs/Day Years [...] Rodney on pt's recent admittance to [facility]. He stated pt wanted him to inform Dr Rodney of this, and she is scheduled to see Dr Rodney 05/04 RMATION SYSTEMS SUPERVISOR documented in this encounter Plan of Treatment Not on filedocumented as of this encounter Visit Diagnoses Not on filedocumented in this encounter Care Teams Manager Cleaning Relationship Specialty Start Date End Date Olamide Rodney MD PCP - General 09/25/10 01/11/21 [address] [place] [address] documented as of this encounter
--- OUTSIDE RECORDS SUMMARY | 2022-02-08 14:26 | XMS_ITS | Encounter Summary ---
:1960 Author Organization [employer] [facility] Address [address] [place] [address] Care Team Providers Name Role Phone Olamide Rodney MD Primary Care Provider Reason for Visit Reason Comments Skin Check Encounter Details Date Type Department Care Team Description 04/18/2014 Office Visit [facility] Munir Drew (Primary Dx); Dermatology Elizabet Antoien PA-C Benign neoplasm of skin of other and uns pecified parts of face [address] [address] [place] [address] [place] [address] Social History Tobacco Use Types Packs/Day Years Used Date Smoking Tobacco: Never Alcohol Use Standard Drinks/Week Comments Yes 0 (1 standard drink = 0.6 oz pure alcoho l) mod Sex Assigned at Date Recorded Not on file documented as of this encounter Progress Notes Elizabet Drew - 04/18/2014 12:45 PM CDT Progress Notes signed by Elizabet Drew PA-C at 04/18/14 8211 Author: Elizabet Drew PA-C Service: (none) Author Type: Physician Football Coach Filed: 04/18/14 5420 Note Time: 04/18/14 7284 Status: Signed Forming Operator: Elizabet Drew PA-C (Physician Football Coach) NAME: PATY LLAMAS MR#: [id number] CSN: [id number] AUTHENTICATING CLINICIAN: Elizabet Drew PA-C CONFIRM #: [id number] LOC: 527 CLINIC PROGRESS NOTE DATE OF [...] of actinic keratoses appreciated. Along the right mosque and right superior forehead, she has 2 [...] any new concerns. SMC:MEDQ C: CONFIRM #: [id number] documented in this encounter Plan of Treatment Not on filedocumented as of this encounter Visit Diagnoses Diagnosis Hypopigmentation - Primary Dyschromia, unspecified Benign neoplasm of skin of other and uns pecified parts of face documented in this encounter Care Teams Supervisor [place] Relationship Specialty Start Date End Date Olamide Rodney MD PCP - General 09/25/10 01/11/21 [address] [place] [address] documented as of this encounter
--- OUTSIDE RECORDS SUMMARY | 2022-02-08 14:26 | XMS_ITS | Encounter Summary ---
:1960 Author Organization [employer] Address [address], [place] [address] Care Team Providers Name Role Phone Olamide Rodney MD Primary Care Provider Reason for Visit Reason Comments ANXIETY Encounter Details Date Type Department Care Team Description 03/03/2014 Nurse Triage [place] Malka Rodney MD ANXIETY Medicine [address] [place] [address] [place], [place] [address] [phone] Social History Tobacco Use Types Packs/Day Years [...] 4:20 PM CDT Protocol: ANXIETY AND PANIC [id number] Affirmative: Known or suspected alcohol or drug [...] harm self or others. Suggested patient contact [facility] Crisis hotline- patient declined. Advised patient to [...] on filedocumented in this encounter Care Teams Gas Main Fitter Relationship Specialty Start Date End Date Olamide Rodney MD PCP - General 09/25/10 01/11/21 [address] [place] [address] documented as of this encounter
--- OUTSIDE RECORDS SUMMARY | 2022-02-08 14:26 | XMS_ITS | Encounter Summary ---
:1960 Author Organization [employer] Address [address], [place] [address] Care Team Providers Name Role Phone Olamide Rodney MD Primary Care Provider Reason for Visit Reason Comments Follow-up Encounter Details Date Type Department Care Team Description 05/04/2014 Office Visit [facility] Internal Olamide Rodney Alc oholism, chronic Medicine MD Elina (Primary Dx) [address] [phone] [place], [place] [address] (Wo rk) Social History Tobacco Use Types Packs/Day Years Used Date Smoking Tobacco: Never Alcohol Use Standard Drinks/Week Comments Yes 0 (1 standard drink = 0.6 oz pure alcoho l) mod Sex Assigned at Date Recorded Not on file documented as of this encounter Last Filed Vital Signs Vital Sign Reading Time Taken Comments Blood Pressure 118/84 05/04/2014 9:05 AM PC NETWORK TECHNICIAN Pulse 76 05/04/2014 9:05 AM PC NETWORK TECHNICIAN Temperature - - Respiratory Rate - - Oxygen Saturation - - Inhaled Oxygen Concentration - - Weight 98 kg (216 lb) 05/04/2014 9:05 AM PC NETWORK TECHNICIAN Height - - Body Mass Index [...] urgent care and was sent [facility] to [facility] for the detox. Urgent care [...] cancer of endometrium 07/26/2011 ??? Unspecified asthma[place]493.90) [place] 08/19/2011 ??? Macrocytosis without anemia 04/22/2012 Past Surgical History Procedure Laterality Date ??? Gastric bypass surgery 2002 ??? [place] tooth extraction ??? Eye surgery PRK ??? [...] I will have her talk to our social science professor about any other community resources outside of [...] discharged ambulatory and in stable condition. *SH~DNS~SOAP NETWORK TECHNICIAN documented in this encounter Plan of Treatment Not on filedocumented as of this encounter Visit Diagnoses Diagnosis Alcoholism, chronic (HRC) - Primary Other and unspecified alcohol dependence , unspecified drinking behavior documented in this encounter Care Teams Real Estate Attorney Relationship Specialty Start Date End Date Olamide Rodney MD PCP - General 09/25/10 01/11/21 [address] [place] [address] documented as of this encounter
--- OUTSIDE RECORDS SUMMARY | 2022-02-08 14:26 | XMS_ITS | Encounter Summary ---
:1960 Author Organization [employer] Address [address] [place] [address] Care Team Providers Name Role Phone Olamide Rodney MD Primary Care Provider Reason for Visit Reason Comments Endometrial Cancer Encounter Details Date Type Department Care Team Description 09/08/2013 Office Visit Jeremy Aguiar History o f Obstetrics/Gynecolog MD Join endometrial cancer y [address] (Primary Dx) [address] [place] [address] [place] [address] [phone] Social History Tobacco Use Types Packs/Day Years [...] Body Mass Index 35.89 08/27/2012 12:09 PM VARNISH MAKER documented in this encounter Patient Instructions Patient InstructionsMarylu Leigh LPN - 09/08/2013 8:47 AM CDT Thank you for enrolling in [employer]. Please follow the instructions below to securely access your online medical record. [facility] allows you to send messages to your doctor, view your test results, renewyour prescriptions, schedule appointments, and more. How Do I Sign Up? 1. In your Internet browser, go to: [email or web address] 2. Click on the Enter Activation Code link under the New User? section. You will see the New Member Sign Up page. 3. Enter your [employer] Activation Code exactly as it appears below. You will not need to use this code after you???ve completed the sign-up process. If you do not sign up before the expiration date, youmust request a new code. [employer] Activation Code: [email or web address] Expires: 10/08/2013 8:47 AM 4. Enter your Date of (mm/dd/yyyy), Home Phone Number and Zip Code as indicated, then click Next. You will be taken to the next sign-up page 5. Create a [employer] ID. This will be your [employer] login ID and cannot be changed, so think of one that is secure and easy to remember. 6. Create a [employer] password. You can change your password at any time. 7. Enter your Security Question and Answer. This can be used at a later time if you forget your password. Click Next. 8. Enter your e-mail address. You will receive e-mail notification when new information is availablein [employer]. 9. Click Sign In. You can now view your medical record. Additional Information If you have questions, you can call [phone] to talk to our [facility] staff. Remember, [facility] [employer] is NOT to be used for urgent [...] 09/08/13 1136 Note Time: 09/08/131025 Status: Signed Educational Speech Language Clinician: Jeremy Madrid MD (Physician) NAME: PATY LLAMAS MR#: [id number] CSN: [id number] AUTHENTICATING CLINICIAN: Jeremy Madrid MD CONFIRM #: [id number] LOC: 512 CLINIC PROGRESS NOTE DATE OF [...] health care needs. CJS:MEDQ C: CONFIRM #: [id number] documented in this encounter Miscellaneous Notes Miscellaneous - 08/01/2016 9:29 PM CSTNotes Recorded by Jeremy Madrid MD on 09/15/2013 at 4:09 PMReviewed. Normal. OK to send normal Pap letter. ISH MAKER documented in this encounter Plan of [...] CDT FINAL GYNECOLOGICAL CYTOLOGY REPORT Pathology #: [id number] ?Date Obtained: 09/08/2013 ? Date Received: 09/09/2013 [...] Jeremy Madrid MD LAB_1 Performing Organization Address City/[facility] Phon e Number HP CONVERSION Pap Smear Order (09/08/2013 9:27 AM CDT) [facility] gist Method Time Signature Pap Smear Collected HP CONVERSION Monolayer tracking test Specimen Anatomical Collection Method Collection Time Receive d Time (Source) Location / / Volume Laterality 09/08/2013 9:27 AM 4 7:24 CDT AM CDT Jeremy Madrid MD LAB_1 Performing Organization Address [facility] Phon e Number HP CONVERSION documented in this encounter Visit Diagnoses Diagnosis History of endometrial cancer - Primary Personal history of malignant neoplasm o f other parts of uterus documented in this encounter Care Teams Pharmacovigilance Specialist Relationship Specialty Start Date End Date Olamide Rodney MD PCP - General 09/25/10 01/11/21 [address] [place] [address] documented as of this encounter
--- OUTSIDE RECORDS SUMMARY | 2022-02-08 14:26 | XMS_ITS | Encounter Summary ---
:1960 Author Organization [employer] Address [address] [place] [address] Care Team Providers Name Role Phone Olamide Rodney MD Primary Care Provider Encounter Details Date Type Department Care Team Description 03/10/2014 Lab Visit [facility] Diabetes type 2, controlled; [address] [place] [address] Social History Tobacco Use Types Packs/Day Years [...] on 03/10/2014 at 11:19 AMplease review lab [facility] Miscellaneous - 08/01/2016 3:57 PM CSTNotes Recorded by PERRY Mora on 03/10/2014 at 11:38 AMPt will have fasting hepatic function panel, lipase, and RUQ abdominal US on 03/11/14.------Notes Recorded by Leni Simmons LPN on 03/10/2014 at 11:19 AMplease review lab [facility] CO[facility] documented in this encounter Plan of Treatment [...] (ABNORMAL) ALT (SGPT) (03/10/2014 9:03 AM CDT) [facility] Method Time Signature Alanine 132 (H) 4 - 55 HP CONVERSION Aminotransferase U/L Specimen Anatomical Collection Method Collection Time Receive d Time (Source) Location / / Volume Laterality 03/10/2014 9:03 AM 4 9:03 CDT AM CDT Narrative HP CONVERSION - 03/10/2014 10:16 AM CDT Performed at [facility], [address] [place] [address] Transcriptions 08/01/2016 3:57 PM CSTNotes Recorded by PERRY Mora on 03/10/2014 at 11:38 AMPt will have fasting hepatic function panel, lipase, and RUQ abdominal US on 03/11/14.------Notes Recorded by Leni Simmons LPN on 03/10/2014 at 11:19 AM please review lab Olamide Rodney MD LAB_1 Performing Organization Address City/[facility] Code Phon e Number HP CONVERSION (ABNORMAL) AST (03/10/2014 9:03 AM CDT) [facility] Method Time Signature Aspartate 246 (H) 0 - 45 HP CONVERSION Aminotransferase U/L Specimen Anatomical Collection Method Collection Time Receive d Time (Source) Location / / Volume Laterality 03/10/2014 9:03 AM 4 9:03 CDT AM CDT Narrative HP CONVERSION - 03/10/2014 10:16 AM CDT Performed at [facility], [address] [place], [place] [id number] Transcriptions 08/01/2016 3:57 PM CSTNotes Recorded by PERRY Moar on 03/10/2014 at 11:38 AMPt will have fasting hepatic function panel, lipase, and RUQ abdominal US on 03/11/14.------Notes Recorded by Leni Simmons LPN on 03/10/2014 at 11:19 AM please review lab Olamide Rodney MD LAB_1 Performing Organization Address City/[facility] Code Phon e [...] (LDH) documented in this encounter Care Teams Diversified Crops I Farmworker Relationship Specialty Start Date End Date Olamide Rodney MD PCP - General 09/25/10 01/11/21 [address] [place] [address] documented as of this encounter
--- OUTSIDE RECORDS SUMMARY | 2022-02-08 14:26 | XMS_ITS | Encounter Summary ---
:1960 Author Organization [email or web address] Address [address] [place] [address] Care Team Providers Name Role Phone Olamide Rodney MD Primary Care Provider Encounter Details Date Type Department Care Team Description 03/02/2013 Lab Visit [facility] Macrocytosis without anemia; [address] [facility] Diabetes type 2, [place] [address] Social History Tobacco Use Types Packs/Day Years [...] Olamide Rodney MD LAB_1 Performing Organization Address City/[facility] Code Phon e Number HP CONVERSION [...] - 03/02/2013 10:23 AM CDT Performed at [facility], [address] [place] [address] Olamide Rodney MD LAB_1 Performing Organization Address City/[facility] Code Phon e Number HP CONVERSION Hgb A1c (03/02/2013 10:09 AM CDT) athologist Signature HGB A1C 5.8 0.0 - 6.0 % HP CONVERSION Specimen Anatomical Collection Method Collection Time Receive d Time (Source) Location / / Volume Laterality 03/02/2013 10:03/02/2013 AM CDT 12:15 PM CDT Olamide Rodney MD LAB_1 Performing Organization Address City/[facility] Code Phon e Number HP CONVERSION [...] - 03/02/2013 10:23 AM CDT Performed at [facility], [address] [place] [address] Olamide Rodney MD LAB_1 Performing Organization Address City/State/ZIP Code Phon e Number HP CONVERSION documented in this encounter Visit Diagnoses Diagnosis Macrocytosis without anemia Other specified diseases of blood and bl ood-forming organs Diabetes type 2, controlled (HRC) Type II or unspecified type diabetes rod litus without mention of complication, not stated as uncontrolled documented in this encounter Care Teams Gardener Florist Relationship Specialty Start Date End Date Olamide Rodney MD PCP - General 09/25/10 01/11/21 [address] [place], [place] [id number] documented as of this encounter
--- OUTSIDE RECORDS SUMMARY | 2022-02-08 14:26 | XMS_ITS | Encounter Summary ---
:1960 Author Organization [employer] Address [address] [place] [address] Care Team Providers Name Role Phone Olamide Rodney MD Primary Care Provider Encounter Details Date Type Department Care Team Description 09/02/2013 Lab Visit [facility] S/P gastric bypass; [address] [facility] [place] Diabetes type 2, controlled; [place] [address] Macrocytosis without anemia [phone] Social History Tobacco Use Types Packs/Day Years [...] ?FINAL PERIPHERAL BLOOD SMEAR MORPHOLOGY Pathology #: [id number] ?Date Obtained: 09/02/2013 ? Date Received: 09/03/2013 [...] atypical lymphoid population identified. ?GARCIA CPT Codes: ?84553 x 1 ? End of Report Olamide [...] - 09/02/2013 11:05 AM CDT Performed at [facility] [place], [address] [place] [address] Olamide Rodney MD LAB_1 Performing Organization Address [facility] Code Phon e Number HP CONVERSION PERIPHERAL BLOOD SMEAR (09/02/2013 10:26 AM CDT) athologist Signature Peripheral Done HP CONVERSION Blood Smear Specimen Anatomical Collection Method Collection Time Receive d Time (Source) Location / / Volume Laterality 09/02/2013 10:26 09/02/2013 4:03 AM CDT PM CDT Olamide Rodney MD LAB_1 Performing Organization Address City/[facility] Code Phon e Number HP CONVERSION (ABNORMAL) [...] Olamide Rodney MD LAB_1 Performing Organization Address City/[facility]/ZIP Code Phon e Number HP CONVERSION Calcium (09/02/2013 10:26 AM CDT) athologist Signature Calcium 9.8 8.5 - 10.5 HP CONVERSION mg/dL Specimen Anatomical Collection Method Collection Time Receive d Time (Source) Location / / Volume Laterality 09/02/2013 10:26 09/02/2013 AM CDT 10:26 AM CDT Narrative HP CONVERSION - 09/02/2013 11:30 AM CDT Performed at [facility] [place], [address] [place] [address] Olamide Rodney MD LAB_1 Performing Organization Address [facility] Phon e Number HP CONVERSION Vitamin D [...] Olamide Rodney MD LAB_1 Performing Organization Address [facility] Phon e Number HP CONVERSION Electrolyte [...] - 09/02/2013 11:30 AM CDT Performed at [facility] [place], [address] [place] [address] Olamide Rodney MD LAB_1 Performing Organization Address [facility] Phon e Number HP CONVERSION BUN (09/02/2013 10:26 AM CDT) athologist Signature Blood Urea <10 5 - 26 HP CONVERSION Nitrogen mg/dL Specimen Anatomical Collection Method Collection Time Receive d Time (Source) Location / / Volume Laterality 09/02/2013 10:26 09/02/2013 AM CDT 10:26 AM CDT Narrative HP CONVERSION - 09/02/2013 11:30 AM CDT Performed at [facility] [place], [address] [place] [address] Olamide Rodney MD LAB_1 Performing Organization Address City/[facility] Phon e Number HP CONVERSION Creatinine [...] - 09/02/2013 11:30 AM CDT Performed at [facility] [place], [address] [place] [address] Olamide Rodney MD LAB_1 Performing Organization Address City/[facility] Phon e Number HP CONVERSION (ABNORMAL) Complete Blood Count W/Diff (09/02/2013 10:26 AM CDT) [facility] gist Method Time Signature White Blood [...] - 09/02/2013 11:05 AM CDT Performed at [facility] [place], [address] [place] [address] Olamide Rodney MD LAB_1 Performing Organization Address [facility] Phon e Number HP CONVERSION Hgb A1c (09/02/2013 10:26 AM CDT) athologist Signature HGB A1C 5.3 4.0 - 5.6 % HP CONVERSION Specimen Anatomical Collection Method Collection Time Receive d Time (Source) Location / / Volume Laterality 09/02/2013 10:26 09/02/2013 AM CDT 12:17 PM CDT Olamide Rodney MD LAB_1 Performing Organization Address [facility] Phon e Number HP CONVERSION TSH AND FREE T4 (FRT4 IF TSH ABNORM) (09/02/2013 10:26 AM CDT) athologist Signature Thyroid 1.74 0.20 - HP CONVERSION Stimulating 4.50 Hormone Specimen Anatomical Collection Method Collection Time Receive d Time (Source) Location / / Volume Laterality 09/02/2013 10:26 09/02/2013 AM CDT 12:18 PM CDT Olamide Rodney MD LAB_1 Performing Organization Address [facility] Phon e Number HP CONVERSION (ABNORMAL) ALT (SGPT) (09/02/2013 10:26 AM CDT) [facility] Method [place] Signature Alanine 62 (H) 4 - 55 HP CONVERSION Aminotransferase U/L Specimen Anatomical Collection Method Collection Time Receive d Time (Source) Location / / Volume Laterality 09/02/2013 10:26 09/02/2013 AM CDT 10:26 AM CDT Narrative HP CONVERSION - 09/02/2013 11:30 AM CDT Performed at [facility] [place], [address] [place] [address] Olamide Rodney MD LAB_1 Performing Organization Address City/[facility] Phon e Number HP CONVERSION Lipid Panel and Direct LDL(If Needed) (09/02/2013 10:26 AM CDT) [facility] Method Time Signature Cholesterol 190 0 - [...] - 09/02/2013 11:30 AM CDT Performed at [facility] [place], [address] [place] [address] Olamide Rodney MD LAB_1 Performing Organization Address [facility] Phon e Number HP CONVERSION Ferritin (09/02/2013 10:26 AM CDT) athologist Signature Ferritin Serum 89 10 - 291 HP CONVERSION ng/mL Specimen Anatomical Collection Method Collection Time Receive d Time (Source) Location / / Volume Laterality 09/02/2013 10:26 09/02/2013 AM CDT 12:18 PM CDT Olamide Rodney MD LAB_1 Performing Organization Address [facility] Phon e Number HP CONVERSION documented in this encounter Visit Diagnoses Diagnosis S/P gastric bypass Bariatric surgery status Diabetes type 2, controlled (HRC) Type II or unspecified type diabetes rod litus without mention of complication, not stated as uncontrolled Macrocytosis without anemia Other specified diseases of blood and bl ood-forming organs documented in this encounter Care Teams Well Surveying Engineer Relationship Specialty Start Date End Date Olamide Rodney MD PCP - General 09/25/10 01/11/21 [address] [place] [address] documented as of this encounter
--- OUTSIDE RECORDS SUMMARY | 2022-02-08 14:26 | XMS_ITS | Encounter Summary ---
:1960 Author Organization [facility] [facility] Address [address] [place] [address] Care Team Providers Name Role Phone Olamide Rodney MD Primary Care Provider Reason for Visit Reason Comments Follow-up Encounter Details Date Type Department Care Team Description 03/10/2013 Office Visit Jeremy Aguiar Tinea stephanie sicolor (Primary Dx); Obstetrics/Gynecolog MD Joni History of endometrial cancer y [address] [facility] [address] [place] [address] [place] [address] [phone] Social History Tobacco Use Types Packs/Day Years Used Date Smoking Tobacco: Never Alcohol Use Standard Drinks/Week Comments Yes 0 (1 standard drink = 0.6 oz pure alcoho l) mod Sex Assigned at Date Recorded Not on file documented as of this encounter Patient Instructions Patient InstructionsMarylu Leigh LPN - 03/10/2013 8:38 AM CDT Thank you for enrolling in [facility]. Please follow the instructions below to securely access your online medical record. [facility] allows you to send messages to your doctor, view your test results, renewyour prescriptions, schedule appointments, and more. How Do I Sign Up? 1. In your Internet browser, go to: [email or web address] 2. Click on the Enter Activation Code link under the New User? section. You will see the New Member Sign Up page. 3. Enter your [facility] Activation Code exactly as it appears below. You will not need to use this code after you???ve completed the sign-up process. If you do not sign up before the expiration date, youmust request a new code. [facility] Activation Code: [email or web address] Expires: 04/09/2013 8:38 AM 4. Enter the last four digits of your Social Security Number ([id number]) and Date of (mm/dd/yyyy) as indicated and click Next. You will be taken to the next sign-up page. 5. Create a [facility] ID. This will be your [facility] login ID and cannot be changed, so think of one that is secure and easy to remember. 6. Create a [facility] password. You can change your password at any time. 7. Enter your Security Question and Answer. This can be used at a later time if you forget your password. Click Next. 8. Enter your e-mail address. You will receive e-mail notification when new information is availablein [facility]. 9. Click Sign In. You can now view your medical record. Additional Information If you have questions, you can call [phone] to talk to our [facility] staff. Remember, [facility] is NOT to be used for urgent needs. For medical emergencies, dial 911. documented in this encounter Progress Notes Jeremy Madrid - 03/10/2013 9:16 AM CDT Progress Notes signed by Jeremy Madrid MD at 03/11/13 0652 Author: Jeremy Madrid MD Service: (none) Author Type: Physician Filed: 03/11/13 0652 Note Time: 03/10/132126 Status: Signed Equine Intern: Jeremy Madrid MD (Physician) NAME: FARHADPATY MR#: [id number] CSN: [id number] AUTHENTICATING CLINICIAN: Jeremy Madrid MD CONFIRM #: [id number] LOC: 512 CLINIC PROGRESS NOTE DATE OF [...] The external genitalia are without lesions. Bartholin, Ackerman, urethral glands negative. Vagina is negative throughout [...] at that time. CJS:MEDQ C: CONFIRM #: [id number] documented in this encounter Plan of Treatment Not on filedocumented as of this encounter Visit Diagnoses Diagnosis Tinea versicolor - Primary Pityriasis versicolor History of endometrial cancer Personal history of malignant neoplasm o f other parts of uterus documented in this encounter Care Teams Sugar Chipper Machine Operator Relationship Specialty Start Date End Date Olamide Rodney MD PCP - General 09/25/10 01/11/21 [address] [place] [address] documented as of this encounter
--- OUTSIDE RECORDS SUMMARY | 2022-02-08 14:26 | XMS_ITS | Encounter Summary ---
:1960 Author Organization [employer] Address [address] [place] [address] Care Team Providers Name Role Phone Olamide Rodney MD Primary Care Provider Reason for Visit Reason Comments Follow-up Encounter Details Date Type Department Care Team Description 03/08/2013 Office Visit [facility] Olamide Rodney type 2, controlled (Primary Dx); Hayley Antoine MD Macrocytosis without anemia; [address] [place] [address] S/P gastric bypass; [place] [address] Blvd Nondependent alcohol abuse; [phone] [place], [place] Chronic in somnia; [address] Embolism and thrombosis of unspecified s ite; [phone] Need for influe nza vaccination (Work) Social [...] Body Mass Index 35.22 08/27/2012 12:09 PM ASSISTANT PRINCIPAL documented in this encounter Patient Instructions Patient InstructionsOlamide Rodney MD - 03/08/2013 10:16 AM CDT Have fasting labs in about 6 months. Please call [phone] to schedule your lab appointment. documented in [...] ??? Diabetes type 2, controlled ([facility]) 04/23/2011 ??? Chronic insomnia 04/23/2011 ??? Actinic keratoses 04/23/2011 ??? Endometrial cancer ([facility]) 04/23/2011 ??? Nondependent alcohol abuse 04/23/2011 ??? Chronic abdominal pain 04/23/2011 ??? Varicose veins 04/23/2011 ??? Superficial thrombophlebitis 04/23/2011 ??? S/P gastric bypass 04/23/2011 ??? Hx of cancer of endometrium 07/26/2011 ??? Unspecified asthma 08/19/2011 ??? Macrocytosis without anemia 04/22/2012 Past Surgical History Procedure Laterality Date ??? Gastric bypass surgery 2003 ??? [place] tooth extraction ??? Eye surgery PRK ??? [...] labs in about 6 months. Please call [phone] to schedule your lab appointment. The patient [...] influenza documented in this encounter Care Teams Baggage Handling Supervisor Relationship Specialty Start Date End Date Olamide Rodney MD PCP - General 09/25/10 01/11/21 [address] [place] [address] documented as of this encounter
--- OUTSIDE RECORDS SUMMARY | 2022-02-08 14:26 | XMS_ITS | Encounter Summary ---
:1960 Author Organization [employer] Address [address] [address] Care Team Providers Name Role Phone Olamide Rodney MD Primary Care Provider Reason for Visit Reason Comments Pain Encounter Details Date Type Department Care Team Description 10/02/2012 Hospital Encounter [facility] James Magana Congenital deficiency of other clotting factors; Care A, PRASANNA-C Calf pain [address] [place] [address] [id number] Social History Tobacco Use Types Packs/Day Years [...] 09/24/2004 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) 200MCG/INH INHALERIndications: Unspecified asthma(493.90) ([facility]) documented as of this encounter ED Notes James Magana PA-C - 10/02/2012 2:56 PM CDT ED Provider Notes signed by James Magana PA-C at 10/04/12828 Author: James Magana PA-C Service: (none) Author Type: Physician Compliance Review Officer Filed: 10/04/12828 Note Time: 10/02/121455 Status: Signed Administrative Executive: James Magana PA-C (Physician Compliance Review Officer) NAME: PATY LLAMAS MR#: [id number] CSN: [id number] AUTHENTICATING CLINICIAN: James Magana PA-C CONFIRM #: [id number] LOC: 520 URGENT CARE ADDENDUM DATE OF VISIT: 10/02/2012 : 1960 ADDENDUM: SUBJECTIVE: The patient has had no recent air travel, but has been driving quite a bit to classes. Has been sitting more in school. Has been more sedentary. She is a nonsmoker. MAP:MEDQ C: CONFIRM #: [id number] James Magana PA-C - 10/02/2012 2:55 PM CDT ED Provider Notes signed by James Magana PA-C at 10/04/12826 Author: James Magana PA-C Service: (none) Author Type: Physician Compliance Review Officer Filed: 10/04/12826 Note Time: 10/02/121454 Status: Signed Administrative Executive: James Magana PA-C (Physician Compliance Review Officer) NAME: PATY LLAMAS MR#: [id number] CSN: [id number] AUTHENTICATING CLINICIAN: James Magana PA-C CONFIRM #: [id number] LOC: 520 URGENT CARE PROGRESS NOTE DATE [...] of the left lower extremity here at [facility], which was unremarkable. I discussed, with patient, [...] in stable condition. MAP:MED C: CONFIRM #: [id number] documented in this encounter Plan of Treatment [...] deep venous th rombosis. James Magana PA-C [facility] documented in this encounter Visit Diagnoses Diagnosis Congenital deficiency of other clotting factors Calf pain Pain in limb documented in this encounter Care Teams Local Superintendent Relationship Specialty Start Date End Date Olamide Rodney MD PCP - General 09/25/10 01/11/21 [address] [place] [address] documented as of this encounter
--- OUTSIDE RECORDS SUMMARY | 2022-02-08 14:26 | XMS_ITS | Encounter Summary ---
:1960 Author Organization [employer] Address [address], [place] [address] Care Team Providers Name Role Phone lOamide Rodney MD Primary Care Provider Reason for Visit Reason Comments Follow-up Encounter Details Date Type Department Care Team Description 03/09/2014 Office Visit [facility] Olamide Rodney Alc ohol abuse, unspecified (Primary Dx); Hayley Antoine MD Need for influenza vaccination; [address] [place] [address] Bl [phone] [place], [place] [address] (Wo rk) Social History Tobacco Use Types [...] CDT Please call the Pulmonary dept. at [phone] to schedule your appointment[address] Dr. Rivers at [facility] for sleep consult. documented in this encounter [...] Degeneration 08/08/2010 ??? Diabetes type 2, controlled ([facility]) 04/23/2011 ??? Chronic insomnia 04/23/2011 ??? Actinic keratoses 04/23/2011 ??? Endometrial cancer ([facility]) 04/23/2011 ??? Nondependent alcohol abuse 04/23/2011 ??? Chronic abdominal pain 04/23/2011 ??? Varicose veins 04/23/2011 ??? Superficial thrombophlebitis 04/23/2011 ??? S/P gastric bypass 04/23/2011 ??? Hx of cancer of endometrium 07/26/2011 ??? Unspecified asthma(493.90) 08/19/2011 ??? Macrocytosis without anemia 04/22/2012 Past Surgical History Procedure Laterality Date ??? Gastric bypass surgery 2002 ??? [place] tooth extraction ??? Eye surgery PRK ??? [...] her some community resources. I'll have our licensed master social worker call her. She is aware of this. [...] Instructions Please call the Pulmonary dept. at [phone] to schedule your appointment. Dr. Rivers at [facility] for sleep consult. The patient was discharged ambulatory and in stable condition. *SH~DNS~SOAP documented in this encounter Miscellaneous Notes Letter - Olamide Rodney MD - 03/09/2014 12:00 AM CDT Images from the original note were not included. [facility] [address] [place] [address] Return to Work/School Date: 03/09/2014 To Whom It May Concern Paty Stovall is a patient at [facility], [facility]. Please excuse her from work, 03/02/2014 through 03/13/2014, due to medical reasons. II expect her to be able to return to work on 03/14/2014. She has been evaluated and treated by myself and Dr. Soha Martinez during this time. Please contact my office with any questions. Sincerely, Olamide Rodney MD [facility] documented in this encounter Plan of Treatment Not on filedocumented as of this encounter Visit Diagnoses Diagnosis Alcohol abuse, unspecified - Primary Need for influenza vaccination Need for prophylactic vaccination and in oculation against influenza Chronic insomnia Insomnia, unspecified documented in this encounter Care Teams Utilization Engineer Relationship Specialty Start Date End Date Olamide Rodney MD PCP - General 09/25/10 01/11/21 [address] [place] [address] documented as of this encounter
--- OUTSIDE RECORDS SUMMARY | 2022-02-08 14:26 | XMS_ITS | Encounter Summary ---
:1960 Author [facility] Address [address] [place] [address] Care Team Providers Name Role Phone Olamide Rodney MD Primary Care Provider Reason for Visit Reason Comments Procedure Encounter Details Date Type Department Care Team Description 02/24/2014 Procedure Visit [facility] Procedure [address] [place], [place] [address] Social History Tobacco Use Types Packs/Day Years Used Date Smoking Tobacco: Never Alcohol Use Standard Drinks/Week Comments Yes 0 (1 standard drink = 0.6 oz pure alcoho l) mod Sex Assigned at Date Recorded Not on file documented as of this encounter Progress Notes Nixon Richarsdon MD - 03/05/2014 10:33 AM CDT Progress Notes signed by Nixon Richardson MD at 03/06/14 1234 Author: Nixon Richardson MD Service: (none) Author Type: Physician Filed: 03/06/14 1234 Note Time: 03/05/14 1059 Status: Signed Welt Pocket Machine Operator: Nixon Richardson MD (Physician) NAME: PATY LLAMAS MR#: [id number] CSN: [id number] AUTHENTICATING CLINICIAN: Nixon Richardson MD CONFIRM #: [id number] LOC: 571 CLINIC DEXA REPORT DATE OF VISIT: 02/24/2014 : 1960 FINAL IMPRESSION: Bone density on [employer] SL. SUBJECTIVE: INTERPRETING PHYSICIAN: Nixon Richardson [...] bone health change. SLG:MEDQ C: CONFIRM #: [id number] documented in this encounter Miscellaneous Notes Letter - Olamide Rodney MD - 02/24/2014 12:00 AM CDT Images from the original note were not included. [facility] [address] [facility] [place] [address] [email or web address] March 07, 2014 Paty Llamas [address] [facility] [address] Dear Paty, Your recent bone density test [...] can discuss these results and possible treatment [phone]. ___ Please make an appointment in ___ We will repeat a bone density test in years. Please call my office at [phone] if you have questions. Sincerely, [place] [address] [place] [address] NG TELLER documented in this encounter Plan of Treatment [...] states documented in this encounter Care Teams Workforce Development Assistant Relationship Specialty Start Date End Date Olamied Rodney MD PCP - General 09/25/10 01/11/21 [address] [place] [address] documented as of this encounter
--- OUTSIDE RECORDS SUMMARY | 2022-02-08 14:26 | XMS_ITS | Encounter Summary ---
:1960 Author Organization [employer] Address [address] [place] [address] Care Team Providers Name Role Phone Olamide Rodney MD Primary Care Provider Reason for Visit Reason Comments Head Injury Encounter Details Date Type Department Care Team Description 03/05/2013 Hospital Encounter [facility] Ramon Chan W C losed head injury (Primary Dx); Leela Mtz MD Scalp hematoma [address] [address] [facility] [phone] [place] [address] Social History Tobacco Use Types [...] 09/24/2004 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) 200MCG/INH INHALERIndications: Unspecified asthma(493.90) ([facility]) documented as of this encounter ED Notes Ramon Chan MD - 03/05/2013 2:04 PM CDT ED Provider Notes signed by Ramon Chan MD at 03/07/13938 Author: Ramon Chan MD Service: (none) Author Type: Physician Filed: 03/07/13938 Note Time: 03/05/131442 Status: Signed Release Of Information Clerk: Ramon Chan MD (Physician) NAME: PATY LLAMAS MR#: [id number] CSN: [id number] AUTHENTICATING CLINICIAN: Ramon Chan MD CONFIRM #: [id number] LOC: 520 URGENT CARE PROGRESS NOTE DATE [...] sign and raccoon sign are both negative. Head Holder strength normal bilaterally. Deep tendon reflexes brisk [...] let us know. AKD:MEDQ C: CONFIRM #: [id number] Ramon Chan MD - 03/05/2013 9:02 AM [...] swelling. documented in this encounter Care Teams Macroeconomics Professor Relationship Specialty Start Date End Date Olamide Rodney MD PCP - General 09/25/10 01/11/21 [address] [place] [address] documented as of this encounter
--- OUTSIDE RECORDS SUMMARY | 2022-02-08 14:26 | XMS_ITS | Encounter Summary ---
:1960 Author Organization [employer] Address [address] [place] [address] Care Team Providers Name Role Phone Olamide Rodney MD Primary Care Provider Encounter Details Date Type Department Care Team Description 10/02/2012 [facility] [address] [place] [address] Social History Tobacco Use Types Packs/Day Years Used Date Smoking Tobacco: Never Alcohol Use Standard Drinks/Week Comments Yes 0 (1 standard drink = 0.6 oz pure alcoho l) mod Sex Assigned at Date Recorded Not on file documented as of this encounter Plan of Treatment Not on filedocumented as of this encounter Visit Diagnoses Not on filedocumented in this encounter Care Teams Credit Correspondence Clerk Relationship Specialty Start Date End Date Olamide Rodney MD PCP - General 09/25/10 01/11/21 [address] [place] [address] documented as of this encounter
--- OUTSIDE RECORDS SUMMARY | 2022-02-08 14:27 | XMS_ITS | Encounter Summary ---
:1960 Author Organization [email or web address] Address [address] [place] [address] Care Team Providers Name Role Phone Olamide Rodney MD Primary Care Provider Reason for Referral Specialty Diagnoses / Procedures Referred By Contact Refer red To Contact Olamide Rodney MD [facility] [place], [place] [address] Referral ID Status Reason Start Date Expiration Date Visits Requ ested Visits Authorized Reason for Visit Reason Comments Other Encounter Details Date Type Department Care Team Description 09/25/2012 Initial Consult [facility] [place], Other examination of ears an d hearing (Primary Dx); [address] [facility] [place] [address] [address] [phone] [place] [address] Social History Tobacco Use Types Packs/Day Years [...] Author: ALLEGRA Ghosh Service: (none) Author Type: Finance Controller Filed: 10/25/12 1514 Note Time: 10/24/12 1225 Status: Signed Java Project Manager: ALLEGRA Ghosh (Finance Controller) NAME: PATY LLAMAS MR#: [id number] CSN: [id number] AUTHENTICATING CLINICIAN: Allegra Ghosh CONFIRM #: [id number] LOC: 581 CLINIC PROGRESS NOTE DATE OF [...] sensitivity across frequencies for both ears. Speech reception manager thresholds were 5 dB in each ear. Word recognition scores were 96% for the right ear and 100% for the left. Tympanometry revealed normal middle ear compliance and pressure bilaterally. ASSESSMENT: Normal audiometric findings. PLAN: Following testing these results were discussed with Paty. I recommend a recheck of hearing sensitivity as needed. IMPRESSION: Normal audiometric findings bilaterally. NRH:DUANE C: CONFIRM #: [id number] documented in this encounter Plan of Treatment Scheduled Referrals Name Type Priority Associated Diagnoses Order S [facility] Audiology Referral Routine Hearing loss Ordered: 2012 Consult-Adult/Peds documented as of this encounter Visit Diagnoses Diagnosis Other examination of ears and hearing - Primary Hearing loss Unspecified hearing loss documented in this encounter Care Teams Casting Machine Service Operator Relationship Specialty Start Date End Date Olamide Rodney MD PCP - General 09/25/10 01/11/21 [address] [place] [address] documented as of this encounter
--- OUTSIDE RECORDS SUMMARY | 2022-02-08 14:27 | XMS_ITS | Encounter Summary ---
:1960 Author Organization [employer] Address [address] [place] [address] Care Team Providers Name Role Phone Olamide Rodney MD Primary Care Provider Reason for Visit Reason Comments Other Encounter Details Date Type Department Care Team Description 09/24/2010 [facility] [address] Harjeet Solis, RN Other Gynecology Oncology [address] [place] [address] Social History Tobacco Use Types Packs/Day Years Used Date Smoking Tobacco: Never Alcohol Use Standard Drinks/Week Comments Yes 0 (1 standard drink = 0.6 oz pure alcoho l) mod Sex Assigned at Date Recorded Not on file documented as of this encounter Progress Notes Harjeet Solis, RN - 09/24/2010 3:18 PM CDT Workability statement completed, faxed to employer and copy to [facility]. Created on [id number] 3:18pm by HARJEET SOLIS documented in this encounter Plan of Treatment Not on filedocumented as of this encounter Visit Diagnoses Not on filedocumented in this encounter Care Teams Tribal Delegate Relationship Specialty Start Date End Date Olamide Rodney MD PCP - General 09/25/10 01/11/21 [address] [place] [address] documented as of this encounter
--- OUTSIDE RECORDS SUMMARY | 2022-02-08 14:27 | XMS_ITS | Encounter Summary ---
:1960 Author Organization [employer] Address [address] [place] [address] Care Team Providers Name Role Phone Olamide Rodney MD Primary Care Provider Encounter Details Date Type Department Care Team Description 08/12/2012 Lab Visit [facility] S/P gastric bypass; [address] [facility] Diabetes type 2, [place] [address] Social History Tobacco Use Types Packs/Day Years [...] Results for this IF TSH ABNORM) AM LOAN CONSULTANT procedure are in the results section. LIPID PANEL AND Routine 08/12/2012 10:14 Diabetes type 2, Resu lts for this DIRECT LDL(IF NEEDED) AM LOAN CONSULTANT controlled (HRC) pr ocedure are in the results section. VITAMIN D 25-HYDROXY, Routine 08/12/2012 10:14 S/P gastric byp ass Results for this TOTAL AM LOAN CONSULTANT procedure are i n the results section. CREATININE / GFR Routine 08/12/2012 10:14 S/P gastric bypass R esults for this AM LOAN CONSULTANT procedure are i n the results section. COMPLETE BLOOD Routine 08/12/2012 10:14 S/P gastric bypass Res ults for this COUNT-W/DIFF AM LOAN CONSULTANT procedure are i n the results section. DIFFERENTIAL Routine 08/12/2012 10:14 Results for this AM LOAN CONSULTANT procedure are i n the results section. ELECTROLYTE PANEL Routine 08/12/2012 10:14 S/P gastric bypass Results for this AM LOAN CONSULTANT procedure are i n the results section. FERRITIN Routine 08/12/2012 10:14 S/P gastric bypass Resul ts for this AM LOAN CONSULTANT procedure are i n the results section. HGB A1C Routine 08/12/2012 10:14 Diabetes type 2, Results for this AM LOAN CONSULTANT controlled (HRC) procedure a re in the results section. VITAMIN B12 ONLY Routine 08/12/2012 10:14 S/P gastric bypass R esults for this AM LOAN CONSULTANT procedure are i n the results section. ALT (SGPT) Routine 08/12/2012 10:14 S/P gastric bypass Resul ts for this AM LOAN CONSULTANT procedure are i n the results section. CALCIUM Routine 08/12/2012 10:14 S/P gastric bypass Resul ts for this AM LOAN CONSULTANT procedure are i n the results section. documented in this encounter Results (ABNORMAL) Differential (08/12/2012 10:14 AM LOAN CONSULTANT) Patholo gist Method Time Signature Absolute 1.7 [...] / Volume Laterality 08/12/2012 10:14 08/12/2012 AM LOAN CONSULTANT 10:14 AM LOAN CONSULTANT Narrative HP CONVERSION - 08/12/2012 10:39 AM LOAN CONSULTANT Performed at [facility], [address] [id number] Olamide Rodney MD LAB_1 Performing Organization Address City/State/ZIP Code Phon e Number HP CONVERSION B12 Only (08/12/2012 10:14 AM LOAN CONSULTANT) athologist Signature Vitamin B12 645 211 - 911 HP CONVERSION pg/dL Specimen Anatomical Collection Method Collection Time Receive d Time (Source) Location / / Volume Laterality 08/12/2012 10:14 08/12/2012 AM LOAN CONSULTANT 12:29 PM LOAN CONSULTANT Olamide Rodney MD LAB_1 Performing Organization Address City/State/ZIP Code Phon e Number HP CONVERSION Calcium (08/12/2012 10:14 AM LOAN CONSULTANT) athologist Signature Calcium 9.3 8.5 - 10.5 HP CONVERSION mg/dL Specimen Anatomical Collection Method Collection Time Receive d Time (Source) Location / / Volume Laterality 08/12/2012 10:14 08/12/2012 AM LOAN CONSULTANT 10:14 AM LOAN CONSULTANT Narrative HP CONVERSION - 08/12/2012 11:05 AM LOAN CONSULT[place] [address] Olamide Rodney MD LAB_1 Performing Organization Address City/[facility]/ZIP Code Phon e Number HP CONVERSION Vitamin D 25-Hydroxy, Total (08/12/2012 10:14 AM LOAN CONSULTANT) athologist Signature Vitamin D 25 Oh 27 20 - 80 HP CONVERSION ng/mL Comment: Deficiency = <20 Adequate ??= 20-29 Preferred = 30-50 Uncertain safety = 51-80 High = >80 Specimen Anatomical Collection Method Collection Time Receive d Time (Source) Location / / Volume Laterality 08/12/2012 10:14 08/12/2012 AM LOAN CONSULTANT 12:30 PM LOAN CONSULTANT Olamide Rodney MD LAB_1 Performing Organization Address City/[facility] Code Phon e Number HP CONVERSION Electrolyte Panel (08/12/2012 10:14 AM LOAN CONSULTANT) athologist Signature Sodium 140 137 - 147 HP CONVERSION mEq/L Potassium 4.3 3.5 - 5.2 HP CONVERSION mEq/L Chloride 103 98 - 110 HP CONVERSION mEq/L Bicarbonate 29 23 - 33 HP CONVERSION mmol/L Specimen Anatomical Collection Method Collection Time Receive d Time (Source) Location / / Volume Laterality 08/12/2012 10:14 08/12/2012 AM LOAN CONSULTANT 10:14 AM LOAN CONSULTANT Narrative HP CONVERSION - 08/12/2012 11:05 AM LOAN CONSULT[place] [address] Olamide Rodney MD LAB_1 Performing Organization Address City/[facility]/ZIP Code Phon e Number HP CONVERSION Creatinine / GFR (08/12/2012 10:14 AM LOAN CONSULTANT) athologist Signature Creatinine 0.7 0.4 - 1.3 [...] / Volume Laterality 08/12/2012 10:14 08/12/2012 AM LOAN CONSULTANT 10:14 AM LOAN CONSULTANT Narrative HP CONVERSION - 08/12/2012 11:05 AM LOAN CONSULTANT Performed at [facility], [address] [place] [address] Olamide Rodney MD LAB_1 Performing Organization Address City/[facility] Phon e Number HP CONVERSION (ABNORMAL) Hemogram/Plts/Diff (08/12/2012 10:14 AM LOAN CONSULTANT) [facility] gist Method Time Signature White Blood Cell [...] / Volume Laterality 08/12/2012 10:14 08/12/2012 AM LOAN CONSULTANT 10:14 AM LOAN CONSULTANT Narrative HP CONVERSION - 08/12/2012 10:39 AM LOAN CONSULTANT Performed at [facility], [address] [place] [address] Olamide Rodney MD LAB_1 Performing Organization Address City/[facility]/ZIP Code Phon e Number HP CONVERSION Hgb A1c (08/12/2012 10:14 AM LOAN CONSULTANT) athologist Signature HGB A1C 5.4 0.0 - 6.0 % HP CONVERSION Specimen Anatomical Collection Method Collection Time Receive d Time (Source) Location / / Volume Laterality 08/12/2012 10:14 08/12/2012 AM LOAN CONSULTANT 12:25 PM LOAN CONSULTANT Olamide Rodney MD LAB_1 Performing Organization Address [facility] Code Phon e Number HP CONVERSION TSH AND FREE T4 (FRT4 IF TSH ABNORM) (08/12/2012 10:14 AM LOAN CONSULTANT) athologist Signature Thyroid 2.87 0.20 - HP CONVERSION Stimulating 4.50 mIU/L Hormone Specimen Anatomical Collection Method Collection Time Receive d Time (Source) Location / / Volume Laterality 08/12/2012 10:14 08/12/2012 AM LOAN CONSULTANT 12:29 PM LOAN CONSULTANT Olamide Rodney MD LAB_1 Performing Organization Address [facility] Phon e Number HP CONVERSION ALT (SGPT) (08/12/2012 10:14 AM LOAN CONSULTANT) [facility] Signature Alanine 32 4 - 55 HP CONVERSION Aminotransferase U/L Specimen Anatomical Collection Method Collection Time Receive d Time (Source) Location / / Volume Laterality 08/12/2012 10:14 08/12/2012 AM LOAN CONSULTANT 10:14 AM LOAN CONSULTANT Narrative HP CONVERSION - 08/12/2012 11:05 AM LOAN CONSULTANT Performed at [facility], [address] [place] [address] Olamide Rodney MD LAB_1 Performing Organization Address City/[facility] Code Phon e Number HP CONVERSION Lipid Panel and Direct LDL(If Needed) (08/12/2012 10:14 AM LOAN CONSULTANT) [facility] Method Time Signature Cholesterol 173 0 - [...] / Volume Laterality 08/12/2012 10:14 08/12/2012 AM LOAN CONSULTANT 10:14 AM LOAN CONSULTANT Narrative HP CONVERSION - 08/12/2012 11:05 AM LOAN CONSULTANT Performed at [facility], [address] [place] [address] Olamide Rodney MD LAB_1 Performing Organization Address City/[facility]/ZIP Code Phon e Number HP CONVERSION Ferritin (08/12/2012 10:14 AM LOAN CONSULTANT) athologist Signature Ferritin Serum 68 10 - 291 HP CONVERSION ng/mL Specimen Anatomical Collection Method Collection Time Receive d Time (Source) Location / / Volume Laterality 08/12/2012 10:14 08/12/2012 AM LOAN CONSULTANT 12:29 PM LOAN CONSULTANT Olamide Rodney MD LAB_1 Performing Organization Address City/[facility] Phon e Number HP CONVERSION documented in this encounter Visit Diagnoses Diagnosis S/P gastric bypass Bariatric surgery status Diabetes type 2, controlled (HRC) Type II or unspecified type diabetes rod litus without mention of complication, not stated as uncontrolled documented in this encounter Care Teams Mass Spectrometry Specialist Relationship Specialty Start Date End Date Olamide Rodney MD PCP - General 09/25/10 01/11/21 [address] [place], [place] [address] documented as of this encounter
--- OUTSIDE RECORDS SUMMARY | 2022-02-08 14:27 | XMS_ITS | Encounter Summary ---
:1960 Author Organization [employer] Address [address] [place] [address] Care Team Providers Name Role Phone Olamide Rodney MD Primary Care Provider Reason for Visit Reason Comments Other Encounter Details Date Type Department Care Team Description 09/20/2010 Telephone [facility] 3931 Harjeet Solis, RN Other Gynecology Oncology [address] [place], [place] [address] Social History Tobacco Use Types Packs/Day Years [...] the weekend. Per Dr Wen Huitron, gynonc network operations center engineer, pt may have Vicodin 5/500mg, po, q4hrs, prn pain, 30tabs. Pt informed and Rx was [facility] to [facility] 42. Created on 20Sep2010 11:38am by HARJEET SOLIS documented in this encounter Plan of Treatment Not on filedocumented as of this encounter Visit Diagnoses Not on filedocumented in this encounter Care Teams Industrial Hygiene Technician Relationship Specialty Start Date End Date Olamide Rodney MD PCP - General 09/25/10 01/11/21 [address] [place], [place] [id number] documented as of this encounter
--- OUTSIDE RECORDS SUMMARY | 2022-02-08 14:27 | XMS_ITS | Encounter Summary ---
:1960 Author Organization [employer] Address [address] [place] [address] Care Team Providers Name Role Phone Olamide Rodney MD Primary Care Provider Encounter Details Date Type Department Care Team Description 04/17/2011 Notes/Orders [employer] Internal Olamide Rodney DM w/o complication Medicine MD Elina type II (Primary Dx) [address] [facility] [address] [place] [address] [facility] [phone] [place] [address] Social History Tobacco Use Types [...] Primary documented in this encounter Care Teams Boat Patcher Plastic Relationship Specialty Start Date End Date Olamide Rodney MD PCP - General 09/25/10 01/11/21 [address] [place] [address] documented as of this encounter
--- OUTSIDE RECORDS SUMMARY | 2022-02-08 14:27 | XMS_ITS | Encounter Summary ---
:1960 Author Organization [employer] Address [address] [place] [address] Care Team Providers Name Role Phone Olamide Rodney MD Primary Care Provider Encounter Details Date Type Department Care Team Description 03/18/2011 Lab Visit [facility] 3850 DM w/o co mplication type II Laboratory [address] [place] [address] Social History Tobacco Use Types [...] Olamide Rodney MD LAB_1 Performing Organization Address [facility] Phon e Number HP CONVERSION VENIPUNCTURE (CAMILA) (03/18/2011 12:08 PM CDT) athologist Signature Venipuncture Done HP CONVERSION Specimen (Source) Anatomical Collection Method Collection Time Re ceived Time Location / / Volume Laterality 03/18/2011 12:08 PM CDT Narrative HP CONVERSION - 03/18/2011 12:08 PM CDT Performed at [facility], [address] [place] [address] Olamide Rodney MD LAB_1 Performing Organization Address [facility] Phon e Number HP CONVERSION documented in this encounter Visit Diagnoses Diagnosis Type II or unspecified type diabetes rod litus without mention of complication, not stated as uncontrolled documented in this encounter Care Teams Puffer Tender Relationship Specialty Start Date End Date Olamide Rodney MD PCP - General 09/25/10 01/11/21 [address] [place], [place] [id number] documented as of this encounter
--- OUTSIDE RECORDS SUMMARY | 2022-02-08 14:27 | XMS_ITS | Encounter Summary ---
:1960 Author Organization [employer] Address [address], [place] [address] Care Team Providers Name Role Phone Olamide Rodney MD Primary Care Provider Reason for Visit Reason Comments LEG PAIN Encounter Details Date Type Department Care Team Description 10/02/2012 Nurse Triage [facility] Malka Rodney MD LEG PAIN Medicine [address] [place] [id number] [place] [address] [phone] Social History Tobacco Use Types Packs/Day Years Used Date Smoking Tobacco: Never Alcohol Use Standard Drinks/Week Comments Yes 0 (1 standard drink = 0.6 oz pure alcoho l) mod Sex Assigned at Date Recorded Not on file documented as of this encounter Nursing Notes Samantha Mckeon RN - 10/02/2012 10:50 AM CDT Protocol: LEG [id number] Affirmative: Calf pain in only one leg [...] on filedocumented in this encounter Care Teams Tool Design Checker Relationship Specialty Start Date End Date Olamide Rodney MD PCP - General 09/25/10 01/11/21 [address] [place] [address] documented as of this encounter
--- OUTSIDE RECORDS SUMMARY | 2022-02-08 14:27 | XMS_ITS | Encounter Summary ---
:1960 Author Organization [employer] Address [address] [place] [address] Care Team Providers Name Role Phone Olamide Rodney MD Primary Care Provider Reason for Visit Reason Comments Skin Check Encounter Details Date Type Department Care Team Description 03/18/2011 Office Visit [facility] 3800 Ta Brink MD Screening for Dermatology [address] malignant neoplasm of [address] [facility] [address] the skin (Primary Dx) [place] [id number] [phone] Social History Tobacco Use Types Packs/Day Years Used Date Smoking Tobacco: Never Alcohol Use Standard Drinks/Week Comments Yes 0 (1 standard drink = 0.6 oz pure alcoho l) mod Sex Assigned at Date Recorded Not on file documented as of this encounter Progress Notes Ta Brink MD - 03/18/2011 12:05 PM CDT Progress Notes signed by Ta Brink MD at 03/20/11 72 Author: Ta Brink MD Service: (none) Author Type: Physician Filed: 03/20/11847 Note Time: 03/18/11 1205 Status: Signed Petroleum Engineering Teacher: Ta Brink MD (Physician) NAME: PATY LLAMAS MR#: [id number] CSN: [id number] AUTHENTICATING CLINICIAN: Ta Brink MD CONFIRM #: [id number] LOC: 427 CLINIC PROGRESS NOTE DATE OF [...] the lumbar back. YW:MEDQ C: CONFIRM #: [id number] documented in this encounter Plan of Treatment Not on filedocumented as of this encounter Visit Diagnoses Diagnosis Screening for malignant neoplasm of the skin - Primary documented in this encounter Care Teams Fitting Room Checker Relationship Specialty Start Date End Date Olamide Rodney MD PCP - General 09/25/10 01/11/21 [address] [place] [address] documented as of this encounter
--- OUTSIDE RECORDS SUMMARY | 2022-02-08 14:27 | XMS_ITS | Encounter Summary ---
:1960 Author Organization [employer] Address [address] [place] [address] Care Team Providers Name Role Phone Olamide Rodney MD Primary Care Provider Encounter Details Date Type Department Care Team Description 03/31/2012 Lab Visit [facility] Diabetes type 2, controlled [address] [place] [address] Social History Tobacco Use Types Packs/Day Years [...] - 03/31/2012 10:33 AM CDT Performed at [facility], [address] [place] [address] Olamide Rodney MD LAB_1 Performing Organization Address City/[facility] Phon e Number HP CONVERSION documented in this encounter Visit Diagnoses Diagnosis Diabetes type 2, controlled (HRC) Type II or unspecified type diabetes rod litus without mention of complication, not stated as uncontrolled documented in this encounter Care Teams Science Analyst Relationship Specialty Start Date End Date Olamide Rodney MD PCP - General 09/25/10 01/11/21 [address] [place] [address] documented as of this encounter
--- OUTSIDE RECORDS SUMMARY | 2022-02-08 14:27 | XMS_ITS | Encounter Summary ---
:1960 Author Organization [employer] Address [address] [place] [address] Care Team Providers Name Role Phone Olamide Rodney MD Primary Care Provider Reason for Visit Reason Comments Lab Questions Encounter Details Date Type Department Care Team Description 04/11/2011 Telephone [place] [facility] Malka Rodney MD Lab Questions Medicine [address] [place] [address] [place] [address] [phone] Social History Tobacco Use Types Packs/Day Years [...] on our diabetic list. Minimum f/u is [id number] in my medical opinion. should f/u and [...] appt time at sooner date. Callback #: [phone] wk [facility]; if not there try # [phone] mornings or late afternoons LM: yes--once they [...] on filedocumented in this encounter Care Teams Cryptologic Technician Relationship Specialty Start Date End Date Olamide Rodney MD PCP - General 09/25/10 01/11/21 [address] [place] [address] documented as of this encounter
--- OUTSIDE RECORDS SUMMARY | 2022-02-08 14:27 | XMS_ITS | Encounter Summary ---
:1960 Author Organization [employer] Address [address] [place] [address] Care Team Providers Name Role Phone Olamide Rodney MD Primary Care Provider Encounter Details Date Type Department Care Team Description 01/14/2011 Lab Visit [facility] 3931 Malign ant neoplasm of Outpatient Laborator y corpus uteri, except [address] [facility]. S. isthmus (Primary Dx) [place], [place] [address] Social History Tobacco Use Types Packs/Day Years [...] CDT Final GYNECOLOGICAL CYTOLOGY REPORT Pathology #: [id number] ?Date Obtained: 01/14/2011 ? Date Received: 01/16/2011 [...] Jackson Iqbal MD LAB_1 Performing Organization Address City/State/[facility] Code Phon e Number HP CONVERSION Pap Smear Diagnostic (01/14/2011 4:58 PM CDT) [facility] Method Time Signature PAP Diagnostic Collected [...] isthmus documented in this encounter Care Teams Construction Manager Relationship Specialty Start Date End Date Olamide Rodney MD PCP - General 09/25/10 01/11/21 [address] [place] [address] documented as of this encounter
--- OUTSIDE RECORDS SUMMARY | 2022-02-08 14:27 | XMS_ITS | Encounter Summary ---
:1960 Author Organization [employer] Address [address] [address] Care Team Providers Name Role Phone Olamide Rodney MD Primary Care Provider Reason for Visit Reason Comments CANCER Encounter Details Date Type Department Care Team Description 01/14/2011 Office Visit Specialty Center 3931 Jackson Iqbal E ndometrial cancer Gynecology Oncology MD (Primary Dx) [address] [facility] [address] [facility] 5th [place] [phone] (Wo rk) Social History Tobacco Use Types [...] 1049 Note Time: 01/14/11 1200 Status: Signed Clinical Registered Nurse: Jackson Iqbal MD (Physician) NAME: PATY LLAMAS MR#: [id number] CSN: [id number] AUTHENTICATING CLINICIAN: Jackson Iqbal MD CONFIRM #: [id number] LOC: 256 CLINIC PROGRESS NOTE DATE OF [...] follow up with Dr. Madrid her primary RUG TOUCH UP PAINTER with whom she has been very happy [...] low term followup. ANIA:MEDTracie C: CONFIRM #: [id number] documented in this encounter Plan of Treatment Not on filedocumented as of this encounter Visit Diagnoses Diagnosis Endometrial cancer (HRC) - Primary Malignant neoplasm of corpus uteri, exce pt isthmus documented in this encounter Care Teams Heading Machine Operator Relationship Specialty Start Date End Date Olamide Rodney MD PCP - General 09/25/10 01/11/21 [address] [place] [address] documented as of this encounter
--- OUTSIDE RECORDS SUMMARY | 2022-02-08 14:27 | XMS_ITS | Encounter Summary ---
:1960 Author Organization [employer] Address [address] [place] [address] Care Team Providers Name Role Phone Olamide Rodney MD Primary Care Provider Reason for Visit Reason Comments Other Encounter Details Date Type Department Care Team Description 10/04/2010 Telephone Specialty Center 3931 Gynecology Center, Message Other Oncology [address] [place], [place] [address] Social History Tobacco Use Types Packs/Day Years [...] Seq #:- [phone] Pharmacy Name-Phone/Fax:- Michelle cabrera [phone] or City:-[address] Clinician Name:Alonzo Iqbal Drug Name/Strength:-hydrocodone/apap 5mg/500 Sig: Dose/Route/Freq:- 1-2 tablets q4hrs prn Quantity & Last Fill:- 90 09/28/10 *ECODE~PNRF Created on 04Oct2010 2:44pm by PHYLLIS SHAIKH On 05Oct2010 1:57pm HARJEET SOLIS wrote: Verbal order for refill given by Dr Iqbal. Pt can have #30 not 90. Rx called to [facility] documented in this encounter Plan of Treatment Not on filedocumented as of this encounter Visit Diagnoses Not on filedocumented in this encounter Care Teams Planer Feeder Relationship Specialty Start Date End Date Olamide Rodney MD PCP - General 09/25/10 01/11/21 [address] [place] [address] documented as of this encounter
--- OUTSIDE RECORDS SUMMARY | 2022-02-08 14:27 | XMS_ITS | Encounter Summary ---
:1960 Author Organization [employer] Address [address] [place] [address] Care Team Providers Name Role Phone Olamide Rodney MD Primary Care Provider Encounter Details Date Type Department Care Team Description 10/24/2010 PN Conversion Only [place] [facility] [place] [address] [address] [facility] [phone] [place] [address] ( rk) Social History Tobacco [...] on filedocumented in this encounter Care Teams Polisher Hand Relationship Specialty Start Date End Date Olamide Rodney MD PCP - General 09/25/10 01/11/21 [address] [place] [address] documented as of this encounter
--- OUTSIDE RECORDS SUMMARY | 2022-02-08 14:27 | XMS_ITS | Encounter Summary ---
:1960 Author Organization [employer] Address [address] [address] Care Team Providers Name Role Phone Olamide Rodney MD Primary Care Provider Encounter Details Date Type Department Care Team Description 09/17/2011 Notes/Orders Olamide Meng Other scre ening Mammography MD [place] mammogram [address] [facility] [address] [place] [address] [address] [phone] [place] [address] (Wo rk) Social History Tobacco [...] mammogram documented in this encounter Care Teams Flue Gas Analyst Relationship Specialty Start Date End Date Olamide Rodney MD PCP - General 09/25/10 01/11/21 [address] [place] [address] documented as of this encounter
--- OUTSIDE RECORDS SUMMARY | 2022-02-08 14:27 | XMS_ITS | Encounter Summary ---
:1960 Author Organization [employer] Address [address] [place] [address] Care Team Providers Name Role Phone Olamide Rodney MD Primary Care Provider Reason for Visit Reason Comments Diabetes SKIN LESION Encounter Details Date Type Department Care Team Description 04/21/2012 Office Visit [facility] Olamide Rodney type 2, controlled (Primary Dx); Hayley Antoine MD Chronic insomnia; [address] S/P gastric bypass; [place] [address] Blvd Nondependent alcohol abuse; [phone] [place], [place] [facility] [place] [address] Social History Tobacco Use Types Packs/Day Years [...] Body Mass Index 34.38 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 Please call [phone] to schedule your lab appointment. documented in [...] Modifier: abdominal plasty LW Onset: 06/27 ??? [place] tooth extraction ??? Eye surgery PRK ??? David and bso endometrial cancer ??? Cholecystectomy Habits: reports that she has never smoked. She has never used smokeless tobacco. Social History: . Recently quit her job. She went back to school at [employer]. 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 OBJECTIVE: Vital Signs: BP 112/74 Pulse 66 [...] Vitamin B-12 ??? DESTRUCT PREMALIGNANT 1ST LESION 01760 Lab Frequency Next Occurrence Ambulatory referral to [...] Instructions Have fasting labs 10/06/2011. Please call [phone] to schedule your lab appointment. The patient [...] keratosis documented in this encounter Care Teams Silk Finisher Relationship Specialty Start Date End Date Olamide Rodney MD PCP - General 09/25/10 01/11/21 [address] [place] [address] documented as of this encounter
--- OUTSIDE RECORDS SUMMARY | 2022-02-08 14:27 | XMS_ITS | Encounter Summary ---
:1960 Author Organization [employer] Address [address] [place] [address] Care Team Providers Name Role Phone Olamide Rodney MD Primary Care Provider Encounter Details Date Type Department Care Team Description 09/24/2010 Office Visit [facility] 3931 Wilbur Iqbal MD Gynecology Oncology 6500 [facility] 3931 [facility] 5th [place] [address] [phone] Social History Tobacco Use Types Packs/Day Years [...] signed by Jackson Iqbal MD at 10/09/10 5910 Author: Jackson Iqbal MD Service: (none) Author Type: Physician Filed: 10/23/10 1539 Note Time: 09/24/10 0001 Status: Signed Battery Mechanic: Jackson Iqbal MD (Physician) NAME: PATY LLAMAS MR#: [id number] ACCT: [id number] VISIT: [id number] DICTATING CLINICIAN: Jackson Iqbal MD CONFIRM #: [id number] LOC: 256 CLINIC PROGRESS NOTE DATE OF [...] most likely subsequent visit with her primary REFRACTORY PRODUCTS SUPERVISOR, Dr. Tonio Madrid, with whom she has been happy in the past. I have answered her questions to the best of my ability and believe she has a good understanding of her surgery, the postoperative complication, the pathology, as well as her prognosis. ANIA:MEDQ C: CONFIRM #: [id number] documented in this encounter Plan of Treatment Not on filedocumented as of this encounter Visit Diagnoses Not on filedocumented in this encounter Care Teams Pulling Unit Operator Relationship Specialty Start Date End Date Olamide Rodney MD PCP - General 09/25/10 01/11/21 [address] [place] [address] documented as of this encounter
--- OUTSIDE RECORDS SUMMARY | 2022-02-08 14:27 | XMS_ITS | Encounter Summary ---
:1960 Author Organization [employer] Address [address] [place] [address] Care Team Providers Name Role Phone Olamide Rodney MD Primary Care Provider Encounter Details Date Type Department Care Team Description 09/19/2011 [place] [address] [place] [address] Social History Tobacco Use Types Packs/Day Years Used Date Smoking Tobacco: Never Alcohol Use Standard Drinks/Week Comments Yes 0 (1 standard drink = 0.6 oz pure alcoho l) mod Sex Assigned at Date Recorded Not on file documented as of this encounter Plan of Treatment Not on filedocumented as of this encounter Visit Diagnoses Not on filedocumented in this encounter Care Teams Dermatology Sales Representative Relationship Specialty Start Date End Date Olamide Rodney MD PCP - General 09/25/10 01/11/21 [address] [place], [place] [address] documented as of this encounter
--- OUTSIDE RECORDS SUMMARY | 2022-02-08 14:27 | XMS_ITS | Encounter Summary ---
:1960 Author Organization [employer] Address [address] [address] Care Team Providers Name Role Phone Olamide Rodney MD Primary Care Provider Encounter Details Date Type Department Care Team Description 10/04/2010 Office Visit [place] [facility] Malka Rodney MD [address] [address] [place], [place] [address] [phone] Social History Tobacco Use Types Packs/Day Years [...] 1422 Note Time: 10/04/10 0001 Status: Signed Hotel Assistant General Manager: Olamide Rodney MD (Physician) NAME: PATY LLAMAS MR#: [id number] ACCT: [id number] VISIT: [id number] DICTATING CLINICIAN: Olamide Rodney MD CONFIRM #: [id number] LOC: 506 CLINIC PROGRESS NOTE DATE OF [...] the near future. SME:MEDQ C: CONFIRM #: [id number] documented in this encounter Plan of Treatment Not on filedocumented as of this encounter Visit Diagnoses Not on filedocumented in this encounter Care Teams Paint Stock Clerk Relationship Specialty Start Date End Date Olamide Rodney MD PCP - General 09/25/10 01/11/21 [address] [place] [address] documented as of this encounter
--- OUTSIDE RECORDS SUMMARY | 2022-02-08 14:27 | XMS_ITS | Encounter Summary ---
:1960 Author Organization [facility] Address [address] [place] [address] Care Team Providers Name Role Phone Olamide Rodney MD Primary Care Provider Encounter Details Date Type Department Care Team Description 03/29/2011 Immunization [facility] Need for prophylactic [address] [place] [address] inoculation against [phone] influenza (Prim mackenzie Dx) Social History Tobacco [...] Primary documented in this encounter Care Teams Teletypewriter Operator Relationship Specialty Start Date End Date Olamide Rodney MD PCP - General 09/25/10 01/11/21 [address] [place], [place] [address] documented as of this encounter
--- OUTSIDE RECORDS SUMMARY | 2022-02-08 14:27 | XMS_ITS | Encounter Summary ---
:1960 Author Organization 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 Please follow the instructions below to securely access your online medical record. [facility] allows you to send messages to your doctor, view your test results, renewyour prescriptions, schedule appointments, and more. How Do I Sign Up? 1. In your Internet browser, go to: [email or web address] 2. Click on the Sign Up Now link in the Sign In box. You will see the New Member Sign Up page. 3. Enter your [facility] Access Code exactly as it appears below. You will not need to use this code after you???ve completed the sign-up process. If you do not sign up before the expiration date, you must request a new code. [facility] Access Code: [email or web address] Expires: 10/10/12 09:44 AM 4. Enter your Social Security Number (xxx-xx-xxxx) and Date of (mm/dd/yyyy) as indicated and click Submit. You will be taken to the next sign- up page. 5. Create a [facility] ID. This will be your [facility] login ID and cannot be changed, so think of one that is secure and easy to remember. 6. Create a [facility] password. You can change your password at any time. 7. Enter your Password Reset Question and Answer. This can be used at a later time if you forget your password. 8. Enter your e-mail address. You will receive e-mail notification when new information is availablein [facility]. 9. Click Sign Up. You can now view your medical record. Additional Information If you have questions, you can call [phone] to talk to our [facility] staff. Remember, [facility] is NOT to be used for urgent [...] 08 Note Time: 09/10/12 1008 Status: Signed Ramp Service Man: Jeremy Madrid MD (Physician) NAME: PATY LLAMAS MR#: [id number] CSN: [id number] AUTHENTICATING CLINICIAN: Jeremy Madrid MD CONFIRM #: [id number] LOC: 512 CLINIC PROGRESS NOTE DATE OF [...] of Internal Medicine. CJS:DUANE C: CONFIRM #: [id number] documented in this encounter Miscellaneous Notes Miscellaneous - 08/02/2016 8:50 AM CSTNotes Recorded by Jeremy Madrid MD on 09/17/2012 at 6:58 AMReviewed. OK to send normal Pap letter OF BOYS documented in this encounter Plan of Treatment [...] CDT FINAL GYNECOLOGICAL CYTOLOGY REPORT Pathology #: [id number] ?Date Obtained: 09/10/2012 ? Date Received: 09/11/2012 [...] Jeremy Madrid MD LAB_1 Performing Organization Address City/[facility] Phon e Number HP CONVERSION Pap Smear Diagnostic (09/10/2012 10:34 AM CDT) [facility] gist Method Time Signature PAP Diagnostic Collected HP CONVERSION Specimen Anatomical Collection Method Collection Time Receive d Time (Source) Location / / Volume Laterality 09/10/2012 10:34 09/11/2012 6:55 AM CDT AM CDT Jeremy Madrid MD LAB_1 Performing Organization Address [facility] Phon e Number HP CONVERSION documented in this encounter Visit Diagnoses Diagnosis History of endometrial cancer - Primary Personal history of malignant neoplasm o f other parts of uterus documented in this encounter Care Teams Clay Temperer Relationship Specialty Start Date End Date Olamide Rodney MD PCP - General 09/25/10 01/11/21 [address] [place] [address] documented as of this encounter
--- OUTSIDE RECORDS SUMMARY | 2022-02-08 14:27 | XMS_ITS | Encounter Summary ---
:1960 Author Organization [employer] Address [address] [address] Care Team Providers Name Role Phone Olamide Rodney MD Primary Care Provider Reason for Visit Reason Comments Annual Exam Encounter Details Date Type Department Care Team Description 08/19/2011 Office Visit [place] [facility] Olamide Rodney physical examination (Primary Dx); Hayley Antoine MD Need for uaozkgoikr-aixzblz-gzavsipgm (T dap) vaccine; [address] Diabetes type 2, [place] [address] [facility] [phone] [place], [place] [address] (Wo rk) Social History Tobacco Use Types Packs/Day Years Used Date Smoking Tobacco: Never Alcohol Use Standard Drinks/Week Comments Yes 0 (1 standard drink = 0.6 oz pure alcoho l) mod Sex Assigned at Date Recorded Not on file documented as of this encounter Last Filed Vital Signs Vital Sign Reading Time Taken Comments Blood Pressure 126/80 08/19/2011 12:03 PM MAGENTO DEVELOPER Pulse 64 08/19/2011 12:03 PM MAGENTO DEVELOPER Temperature - - Respiratory Rate - - Oxygen Saturation - - Inhaled Oxygen Concentration - - Weight 94.3 kg (208 lb) 08/19/2011 12:03 PM MAGENTO DEVELOPER Height 164.5 cm (5' 4.75) 08/19/2011 12:03 PM MAGENTO DEVELOPER Body Mass Index 34.88 08/19/2011 12:03 PM MAGENTO DEVELOPER documented in this encounter Patient Instructions Patient InstructionsOlamide Rodney MD - 08/19/2011 12:28 PM CST Have non fasting labs in about 6 months, sometime in January. Please call [phone] to schedule your lab appointment. Then follow up in clinic with me for a diabetic recheck (follow up visit). NTO DEVELOPER documented in this encounter Progress Notes Olamide [...] and cardio. Bone density approximately 2008 outside [facility], due in 5 years for repeat. Colonoscopy 2009 outside [facility], patient states it was normal. She has [...] Modifier: abdominal plasty LW Onset: 06/27 ??? [place] tooth extraction ??? Eye surgery PRK ??? 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 Traveling to [place] soon. Allergies Allergen Reactions ??? Contrast Media [...] Routine physical examination Yes ??? Need for gdwzohoiiw-kffmibm-tsvwgnyys (Tdap) vaccine ??? Diabetes type 2, controlled [...] 6 months, sometime in January. Please call [phone] to schedule your lab appointment. Then follow [...] at a health care facility Need for zdparnjclw-bqnabnl-colcclndy (T dap) vaccine Need for prophylactic vaccination with c ombined hkoptjangb-csrvjfs-egxfwxhue (DTP) vaccine Diabetes type 2, controlled (HRC) Type II or unspecified type diabetes rod litus without mention of complication, not stated as uncontrolled documented in this encounter Care Teams Environmental Research Scientist Relationship Specialty Start Date End Date Olamide Rodney MD PCP - General 09/25/10 01/11/21 [address] [place] [address] documented as of this encounter
--- OUTSIDE RECORDS SUMMARY | 2022-02-08 14:27 | XMS_ITS | Encounter Summary ---
:1960 Author Organization [employer] Address [address] [address] Care Team Providers Name Role Phone Olamide Rodney MD Primary Care Provider Reason for Visit Reason Comments Annual Exam Encounter Details Date Type Department Care Team Description 08/27/2012 Office Visit [place] [facility] Olamide Rodney physical examination (Primary Dx); Hayley Antoine MD Diabetes type 2, controlled; [address] [place] [address] [place] [address] [facility] [phone] [place], [place] [address] Social History Tobacco Use Types Packs/Day Years Used Date Smoking Tobacco: Never Alcohol Use Standard Drinks/Week Comments Yes 0 (1 standard drink = 0.6 oz pure alcoho l) mod Sex Assigned at Date Recorded Not on file documented as of this encounter Last Filed Vital Signs Vital Sign Reading Time Taken Comments Blood Pressure 122/84 08/27/2012 12:09 PM TANK INSPECTOR Pulse 64 08/27/2012 12:09 PM TANK INSPECTOR Temperature - - Respiratory Rate - - Oxygen Saturation - - Inhaled Oxygen Concentration - - Weight 92.5 kg (204 lb) 08/27/2012 12:09 PM TANK INSPECTOR Height 164.5 cm (5' 4.75) 08/27/2012 12:09 PM TANK INSPECTOR Body Mass Index 34.21 08/27/2012 12:09 PM TANK INSPECTOR documented in this encounter Patient Instructions Patient InstructionsOlamide Rodney MD - 08/27/2012 12:35 PM CST Have non fasting labs in about 6 months, early February 2013. Please call [phone] to schedule your lab appointment. INSPECTOR documented in this encounter Progress Notes Olamide [...] is stable. Bone density approximately [address] [facility], due in 5 years for repeat. Colonoscopy [address] [facility], patient statesit was normal. She has type [...] Date ??? Gastric bypass surgery 2002 ??? [place] tooth extraction ??? Eye surgery PRK ??? David and bso endometrial cancer ??? Cholecystectomy ??? Lipectomy 2004 Social History: . 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 Allergies Allergen Reactions ??? Contrast Media LW [...] LW Modifier: colonoscopy at 10/2004 LW Onset: 12Feo10 ??? Cancer, Colon Mother ??? Clotting Disorder [...] 6 months, early February 2013. Please call [phone] to schedule your lab appointment. General preventive [...] OF IMPRESSION BJ Olamide Rodney MD RAD [facility] documented in this encounter Visit Diagnoses Diagnosis Routine physical examination - Primary Routine general medical examination at a health care facility Diabetes type 2, controlled (HRC) Type II or unspecified type diabetes rod litus without mention of complication, not stated as uncontrolled Macrocytosis without anemia Other specified diseases of blood and bl ood-forming organs documented in this encounter Care Teams Cosmetic Manager Relationship Specialty Start Date End Date Olamide Rodney MD PCP - General 09/25/10 01/11/21 [address] [place] [address] documented as of this encounter
--- OUTSIDE RECORDS SUMMARY | 2022-02-08 14:27 | XMS_ITS | Encounter Summary ---
:1960 Author Organization [employer] Address [address] [place] [address] Care Team Providers Name Role Phone Olamide Rodney MD Primary Care Provider Encounter Details Date Type Department Care Team Description 03/18/2011 Notes/Orders [place] [facility] Olamide Rodney DM w/o complication Medicine MD Elina type II (Primary Dx) [address] [facility] [address] [place] [address] [facility] [phone] [place] [address] Social History Tobacco Use Types [...] Primary documented in this encounter Care Teams Agriculture Internship Relationship Specialty Start Date End Date Olamide Rodney MD PCP - General 09/25/10 01/11/21 [address] [place] [address] documented as of this encounter
--- OUTSIDE RECORDS SUMMARY | 2022-02-08 14:27 | XMS_ITS | Encounter Summary ---
:1960 Author Organization [employer] Address [address] [place] [address] Care Team Providers Name Role Phone Olamide Rodney MD Primary Care Provider Reason for Visit Reason Comments Follow-up Encounter Details Date Type Department Care Team Description 03/04/2012 [place] Hx of can cer of endometrium (Primary Dx); Obstetrics/Gynecolog MD Joni Need for prophylactic vaccination and in oculation against influenza y [address] [facility] [address] [place] [address] [place], [place] [address] [phone] Social History Tobacco Use Types Packs/Day Years [...] Body Mass Index 34.71 08/19/2011 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 Please follow the instructions below to securely access your online medical record. [facility] allows you to send messages to your doctor, view your test results, renewyour prescriptions, schedule appointments, and more. How Do I Sign Up? 1. In your Internet browser, go to: [email or web address] 2. Click on the Sign Up Now link in the Sign In box. You will see the New Member Sign Up page. 3. Enter your [employer] Access Code exactly as it appears below. You will not need to use this code after you???ve completed the sign-up process. If you do not sign up before the expiration date, you must request a new code. [employer] [facility] Access Code: [email or web address] Expires: 04/03/12 08:04 AM 4. Enter your Social Security Number (xxx-xx-xxxx) and Date of (mm/dd/yyyy) as indicated and click Submit. You will be taken to the next sign- up page. 5. Create a [employer] [facility] ID. This will be your [employer] login ID and cannot be changed, so think of one that is secure and easy to remember. 6. Create a [employer] password. You can change your password at any time. 7. Enter your Password Reset Question and Answer. This can be used at a later time if you forget your password. 8. Enter your e-mail address. You will receive e-mail notification when new information is availablein [employer] [facility]. 9. Click Sign Up. You can now view your medical record. Additional Information If you have questions, you can call [phone] to talk to our [employer] [facility] staff. Remember, [employer] [facility] is NOT to be used for urgent needs. For medical emergencies, dial 911. documented in this encounter Progress Notes Jeremy Madrid - 03/04/2012 8:07 AM CDT Progress Notes signed by Jeremy Madrid MD at 03/04/121425 Author: Jeremy Madrid MD Service: (none) Author Type: Physician Filed: 03/04/12 142 Note Time: 03/04/12806 Status: Signed Lang Interpreter: Jeremy Madrid MD (Physician) NAME: PATY LLAMAS MR#: [id number] CSN: [id number] AUTHENTICATING CLINICIAN: Jeremy Madrid MD CONFIRM #: [id number] LOC: 512 CLINIC PROGRESS NOTE DATE OF [...] for interval examination. CJS:MEDQ C: CONFIRM #: [id number] documented in this encounter Plan of Treatment [...] CDT Final GYNECOLOGICAL CYTOLOGY REPORT Pathology #: [id number] ?Date Obtained: 03/04/2012 ? Date Received: 03/05/2012 [...] influenza documented in this encounter Care Teams Warehouse Operations Manager Relationship Specialty Start Date End Date Olamide Rodney MD PCP - General 09/25/10 01/11/21 [address] [place] [address] documented as of this encounter
--- OUTSIDE RECORDS SUMMARY | 2022-02-08 14:27 | XMS_ITS | Encounter Summary ---
:1960 Author Organization [employer] Address [address] [place] [address] Care Team Providers Name Role Phone Olamide Rodney MD Primary Care Provider Reason for Visit Reason Comments Other Encounter Details Date Type Department Care Team Description 10/09/2010 Telephone [facility] 39[address] Harjeet Solis, RN Other Gynecology Oncology [address] [place], [place] [address] Social History Tobacco Use Types Packs/Day Years [...] , 10/11/10. RTW statement completed, faxed to [facility] and copy to [facility]. Created on 09Oct2010 10:28am by HARJEET SOLIS documented in this encounter Plan of Treatment Not on filedocumented as of this encounter Visit Diagnoses Not on filedocumented in this encounter Care Teams Junior Web Developer Relationship Specialty Start Date End Date Olamide Rodney MD PCP - General 09/25/10 01/11/21 [address] [place] [address] documented as of this encounter
--- OUTSIDE RECORDS SUMMARY | 2022-02-08 14:27 | XMS_ITS | Encounter Summary ---
:1960 Author Organization [employer] Address [address], [place] [address] Care Team Providers Name Role Phone Olamide Rodney MD Primary Care Provider Reason for Visit Reason Comments Referral Encounter Details Date Type Department Care Team Description 08/28/2012 Telephone [place] [facility] Malka Rodney MD Referral Medicine [address] [place] [address] [place] [address] [phone] Social History Tobacco Use Types Packs/Day Years Used Date Smoking Tobacco: Never Alcohol Use Standard Drinks/Week Comments Yes 0 (1 standard drink = 0.6 oz pure alcoho l) mod Sex Assigned at Date Recorded Not on file documented as of this encounter Nursing Notes Olamide Rodney MD - 08/31/2012 9:46 AM CDT ordered Edtih Castellanos - 08/28/2012 9:45 AM CST Forwarding [...] Referral Call back phone or cell phone: [phone] Best time to call back number: Pt would like a call back today because she'll be on vacation next week. Is it OK to leave a confidential message on this voicemail? Yes. *ECODE ENT SUCCESS ADVISOR documented in this encounter Plan of Treatment Not on filedocumented as of this encounter Visit Diagnoses Diagnosis Hearing loss - Primary Unspecified hearing loss documented in this encounter Care Teams Honey Producer Relationship Specialty Start Date End Date Olamide Rodney MD PCP - General 09/25/10 01/11/21 [address] [place] [address] documented as of this encounter
--- OUTSIDE RECORDS SUMMARY | 2022-02-08 14:27 | XMS_ITS | Encounter Summary ---
:1960 Author Organization [employer] Address [address] [place] [address] Care Team Providers Name Role Phone Olamide Rodney MD Primary Care Provider Encounter Details Date Type Department Care Team Description 08/05/2011 Lab Visit [facility] S/P gastric bypass; [address] [employer] [facility] Diabetes type 2, [place] [address] Social History Tobacco Use Types Packs/Day Years [...] Diabetes type 2, Resul ts for this MOLD SHEET CLEANER controlled (HRC) procedure a re in the results section. THYROID STIMULATING Routine 08/05/2011 7:11 AM S/P gastric byp ass Results for this HORMONE MOLD SHEET CLEANER procedure are i n the results section. LIPID PANEL AND Routine 08/05/2011 7:11 AM S/P gastric bypass Results for this DIRECT LDL(IF NEEDED) MOLD SHEET CLEANER proced ure are in the results section. VITAMIN D 25-HYDROXY, Routine 08/05/2011 7:11 AM S/P gastric b ypass Results for this TOTAL MOLD SHEET CLEANER procedure are i n the results section. CREATININE / GFR Routine 08/05/2011 7:11 AM S/P gastric bypass Results for this MOLD SHEET CLEANER procedure are i n the results section. COMPLETE BLOOD Routine 08/05/2011 7:11 AM S/P gastric bypass R esults for this COUNT-W/DIFF MOLD SHEET CLEANER procedure are i n the results section. DIFFERENTIAL Routine 08/05/2011 7:11 AM Results f or this MOLD SHEET CLEANER procedure are i n the results section. ELECTROLYTE PANEL Routine 08/05/2011 7:11 AM S/P gastric bypas s Results for this MOLD SHEET CLEANER procedure are i n the results section. MAGNESIUM Routine 08/05/2011 7:11 AM S/P gastric bypass Res ults for this MOLD SHEET CLEANER procedure are i n the results section. FERRITIN Routine 08/05/2011 7:11 AM S/P gastric bypass Res ults for this MOLD SHEET CLEANER procedure are i n the results section. HGB A1C Routine 08/05/2011 7:11 AM Diabetes type 2, Resul ts for this MOLD SHEET CLEANER controlled (HRC) procedure a re in the results section. VITAMIN B12 ONLY Routine 08/05/2011 7:11 AM S/P gastric bypass Results for this MOLD SHEET CLEANER procedure are i n the results section. ALT (SGPT) Routine 08/05/2011 7:11 AM S/P gastric bypass Res ults for this MOLD SHEET CLEANER procedure are i n the results section. AST Routine 08/05/2011 7:11 AM S/P gastric bypass Res ults for this MOLD SHEET CLEANER procedure are i n the results section. PHOSPHORUS Routine 08/05/2011 7:11 AM S/P gastric bypass Res ults for this MOLD SHEET CLEANER procedure are i n the results section. CALCIUM Routine 08/05/2011 7:11 AM S/P gastric bypass Res ults for this MOLD SHEET CLEANER procedure are i n the results section. BUN Routine 08/05/2011 7:11 AM S/P gastric bypass Res ults for this MOLD SHEET CLEANER procedure are i n the results section. ALBUMIN Routine 08/05/2011 7:11 AM S/P gastric bypass Res ults for this MOLD SHEET CLEANER procedure are i n the results section. documented in this encounter Results Differential (08/05/2011 7:11 AM MOLD SHEET CLEANER) P athologist Signature Absolute 2.3 1.8 - [...] Volume Laterality 08/05/2011 7:11 AM 2 7:10 MOLD SHEET CLEANER AM MOLD SHEET CLEANER Narrative HP CONVERSION - 08/05/2011 7:27 AM MOLD SHEET CLEANER Performed at [facility], [address] [place] [address] Olamide Rodney MD LAB_1 Performing Organization Address City/[facility] Phon e Number HP CONVERSION (ABNORMAL) Hemogram/Plts/Diff (08/05/2011 7:11 AM MOLD SHEET CLEANER) [facility] gist Method Time Signature White [...] Volume Laterality 08/05/2011 7:11 AM 2 7:10 MOLD SHEET CLEANER AM MOLD SHEET CLEANER Narrative HP CONVERSION - 08/05/2011 7:27 AM MOLD SHEET CLEANER Performed at [facility], [address] [place] [address] Olamide Rodney MD LAB_1 Performing Organization Address City/[facility] Code Phon e Number HP CONVERSION Hgb A1c (08/05/2011 7:11 AM MOLD SHEET CLEANER) athologist Signature HGB A1C 5.8 0.0 - 6.0 % HP CONVERSION Specimen Anatomical Collection Method Collection Time Receive d Time (Source) Location / / Volume Laterality 08/05/2011 7:11 AM 2 MOLD SHEET CLEANER 12:10 PM MOLD SHEET CLEANER Olamide Rodney MD LAB_1 Performing Organization Address City/[facility] Phon e Number HP CONVERSION Ferritin (08/05/2011 7:11 AM MOLD SHEET CLEANER) athologist Signature Ferritin Serum 74 10 - 291 HP CONVERSION ng/mL Specimen Anatomical Collection Method Collection Time Receive d Time (Source) Location / / Volume Laterality 08/05/2011 7:11 AM 2 MOLD SHEET CLEANER 12:11 PM MOLD SHEET CLEANER Olamide Rodney MD LAB_1 Performing Organization Address City/[facility]/ZIP Code Phon e Number HP CONVERSION Lipid Panel and Direct LDL(If Needed) (08/05/2011 7:11 AM MOLD SHEET CLEANER) [facility] gist Method Time Signature Cholesterol 167 [...] Volume Laterality 08/05/2011 7:11 AM 2 7:10 MOLD SHEET CLEANER AM MOLD SHEET CLEANER Narrative HP CONVERSION - 08/05/2011 8:24 AM MOLD SHEET CLEANER Performed at [facility], [address] [place] [address] Olamide Rodney MD LAB_1 Performing Organization Address [facility] Phon e Number HP CONVERSION Phosphorus (08/05/2011 7:11 AM MOLD SHEET CLEANER) athologist Signature Phosphorus 3.5 2.5 - 4.5 HP CONVERSION Serum mg/dL Specimen Anatomical Collection Method Collection Time Receive d Time (Source) Location / / Volume Laterality 08/05/2011 7:11 AM 2 7:10 MOLD SHEET CLEANER AM MOLD SHEET CLEANER Narrative HP CONVERSION - 08/05/2011 8:24 AM MOLD SHEET CLEANER Performed at [facility], [address] [place] [address] Olamide Rodney MD LAB_1 Performing Organization Address City/[facility]/ZIP Code Phon e Number HP CONVERSION Magnesium (08/05/2011 7:11 AM MOLD SHEET CLEANER) athologist Signature Magnesium 2.1 1.5 - 2.4 HP CONVERSION mg/dL Specimen Anatomical Collection Method Collection Time Receive d Time (Source) Location / / Volume Laterality 08/05/2011 7:11 AM 2 7:10 MOLD SHEET CLEANER AM MOLD SHEET CLEANER Narrative HP CONVERSION - 08/05/2011 8:24 AM MOLD SHEET CLEANER Performed at [facility], [address] [place] [address] Olamide Rodney MD LAB_1 Performing Organization Address [facility] Phon e Number HP CONVERSION GLUCOSE (08/05/2011 7:11 AM MOLD SHEET CLEANER) athologist Signature Lab Glucose 86 60 - 100 HP CONVERSION mg/dL Specimen Anatomical Collection Method Collection Time Receive d Time (Source) Location / / Volume Laterality 08/05/2011 7:11 AM 2 7:10 MOLD SHEET CLEANER AM MOLD SHEET CLEANER Narrative HP CONVERSION - 08/05/2011 8:24 AM MOLD SHEET CLEANER [place] [address] Olamide Rodney MD LAB_1 Performing Organization Address [facility] Phon e Number HP CONVERSION Electrolyte Panel (08/05/2011 7:11 AM MOLD SHEET CLEANER) athologist [facility] Sodium 141 137 - 147 HP CONVERSION mEq/L Potassium 4.2 3.5 - 5.2 HP CONVERSION mEq/L Chloride 103 98 - 110 HP CONVERSION mEq/L Bicarbonate 33 23 - 33 HP CONVERSION mmol/L Specimen Anatomical Collection Method Collection Time Receive d Time (Source) Location / / Volume Laterality 08/05/2011 7:11 AM 2 7:10 MOLD SHEET CLEANER AM MOLD SHEET CLEANER Narrative HP CONVERSION - 08/05/2011 8:24 AM MOLD SHEET CLEANER Performed at [facility], [address] [place] [address] Olamide Rodney MD LAB_1 Performing Organization Address [facility] Phon e Number HP CONVERSION Creatinine / GFR (08/05/2011 7:11 AM MOLD SHEET CLEANER) athologist Signature Creatinine 0.7 0.4 - 1.3 [...] Volume Laterality 08/05/2011 7:11 AM 2 7:10 MOLD SHEET CLEANER AM MOLD SHEET CLEANER Narrative HP CONVERSION - 08/05/2011 8:24 AM MOLD SHEET CLEANER Performed at [facility], [address] [place] [address] Olamide Rodney MD LAB_1 Performing Organization Address [facility] Phon e Number HP CONVERSION Calcium (08/05/2011 7:11 AM MOLD SHEET CLEANER) athologist Signature Calcium 9.4 8.5 - 10.5 HP CONVERSION mg/dL Specimen Anatomical Collection Method Collection Time Receive d Time (Source) Location / / Volume Laterality 08/05/2011 7:11 AM 2 7:10 MOLD SHEET CLEANER AM MOLD SHEET CLEANER Narrative HP CONVERSION - 08/05/2011 8:24 AM MOLD SHEET CLEANER Performed at [facility], [address] [place] [address] Olamide Rodney MD LAB_1 Performing Organization Address [facility] Phon e Number HP CONVERSION BUN (08/05/2011 7:11 AM MOLD SHEET CLEANER) athologist Signature Blood Urea 14 5 - 26 HP CONVERSION Nitrogen mg/dL Specimen Anatomical Collection Method Collection Time Receive d Time (Source) Location / / Volume Laterality 08/05/2011 7:11 AM 2 7:10 MOLD SHEET CLEANER AM MOLD SHEET CLEANER Narrative HP CONVERSION - 08/05/2011 8:24 AM MOLD SHEET CLEANER [place] [address] Olamide Rodney MD LAB_1 Performing Organization Address [facility] Phon e Number HP CONVERSION Albumin (08/05/2011 7:11 AM MOLD SHEET CLEANER) athologist Signature Albumin 4.5 3.4 - 5.0 HP CONVERSION g/dL Specimen Anatomical Collection Method Collection Time Receive d Time (Source) Location / / Volume Laterality 08/05/2011 7:11 AM 2 7:10 MOLD SHEET CLEANER AM MOLD SHEET CLEANER Narrative HP CONVERSION - 08/05/2011 8:24 AM MOLD SHEET CLEANER Performed at [facility], [address] [place] [address] Olaimde Rodney MD LAB_1 Performing Organization Address [facility] Phon e Number HP CONVERSION AST (08/05/2011 7:11 AM MOLD SHEET CLEANER) [facility] Method Time Signature Aspartate 31 0 - 45 HP CONVERSION Aminotransferase U/L Specimen Anatomical Collection Method Collection Time Receive d Time (Source) Location / / Volume Laterality 08/05/2011 7:11 AM 2 7:10 MOLD SHEET CLEANER AM MOLD SHEET CLEANER Narrative HP CONVERSION - 08/05/2011 8:24 AM MOLD SHEET CLEANER Performed at [facility], [address] [place] [address] Olamide Rodney MD LAB_1 Performing Organization Address [facility] Phon e Number HP CONVERSION ALT (SGPT) (08/05/2011 7:11 AM MOLD SHEET CLEANER) [facility] Method Time Signature Alanine 22 4 - 55 HP CONVERSION Aminotransferase U/L Specimen Anatomical Collection Method Collection Time Receive d Time (Source) Location / / Volume Laterality 08/05/2011 7:11 AM 2 7:10 MOLD SHEET CLEANER AM MOLD SHEET CLEANER Narrative HP CONVERSION - 08/05/2011 8:24 AM MOLD SHEET CLEANER Performed at [facility], [address] [place] [address] Olamide Rodney MD LAB_1 Performing Organization Address City/[facility] Code Phon e Number HP CONVERSION THYROID STIMULATING HORMONE (08/05/2011 7:11 AM MOLD SHEET CLEANER) P athologist Signature Thyroid 3.70 0.20 - HP CONVERSION Stimulating 4.50 mIU/L Hormone Specimen Anatomical Collection Method Collection Time Receive d Time (Source) Location / / Volume Laterality 08/05/2011 7:11 AM 2 MOLD SHEET CLEANER 12:11 PM MOLD SHEET CLEANER Olamide Rodney MD LAB_1 Performing Organization Address City/[facility]/ZIP Code Phon e Number HP CONVERSION B12 Only (08/05/2011 7:11 AM MOLD SHEET CLEANER) P athologist Signature Vitamin B12 860 211 - 911 HP CONVERSION pg/dL Specimen Anatomical Collection Method Collection Time Receive d Time (Source) Location / / Volume Laterality 08/05/2011 7:11 AM 2 MOLD SHEET CLEANER 12:11 PM MOLD SHEET CLEANER Olamide Rodney MD LAB_1 Performing Organization Address City/[facility]/ZIP [facility] Phon e Number HP CONVERSION Vitamin D 25-Hydroxy, Total (08/05/2011 7:11 AM MOLD SHEET CLEANER) athologist Signature Vitamin D 25 Oh 39 20 - 80 HP CONVERSION ng/mL Comment: Deficiency = <20 Adequate ??= 20-29 Preferred = 30-50 Uncertain safety = 51-80 High = >80 Specimen Anatomical Collection Method Collection Time Receive d Time (Source) Location / / Volume Laterality 08/05/2011 7:11 AM 2 MOLD SHEET CLEANER 12:11 PM MOLD SHEET CLEANER Olamide Rodney MD LAB_1 Performing Organization Address City/[facility] Phon e Number HP CONVERSION documented in this encounter Visit Diagnoses Diagnosis S/P gastric bypass Bariatric surgery status Diabetes type 2, controlled (HRC) Type II or unspecified type diabetes rod litus without mention of complication, not stated as uncontrolled documented in this encounter Care Teams Link And Link Knitting Machine Operator Relationship Specialty Start Date End Date Olamide Rodney MD PCP - General 09/25/10 01/11/21 [address] [place] [address] documented as of this encounter
--- OUTSIDE RECORDS SUMMARY | 2022-02-08 14:27 | XMS_ITS | Encounter Summary ---
:1960 Author Organization [employer] Address [address], [place] [address] Care Team Providers Name Role Phone Olamide Rodney MD Primary Care Provider Reason for Visit Reason Comments Follow-up Encounter Details Date Type Department Care Team Description 10/30/2011 Office Visit Jeremy [facility] of [facility] Obstetrics/Gynecolog MD Joni endometrium (Primary y [address] Dx) [address] [place] [address] [place] [address] [phone] Social History Tobacco Use Types Packs/Day Years [...] Body Mass Index 35.38 08/19/2011 12:03 PM CABLE WEAVER documented in this encounter Progress Notes Jeremy Madrid - 10/30/2011 8:28 AM CDT Progress Notes signed by Jeremy Madrid MD at 10/30/11 1000 Author: Jeremy Madrid MD Service: (none) Author Type: Physician Filed: 10/30/11 1000 Note Time: 10/30/11827 Status: Signed Rim Buster: Jeremy Mardid MD (Physician) NAME: PATY LLAMAS MR#: [id number] CSN: [id number] AUTHENTICATING CLINICIAN: Jeremy Madrid MD CONFIRM #: [id number] LOC: 512 CLINIC PROGRESS NOTE DATE OF [...] Dr. Iqbal's recommendation. CJS:MEDQ C: CONFIRM #: [id number] documented in this encounter Plan of Treatment Not on filedocumented as of this encounter Visit Diagnoses Diagnosis Hx of cancer of endometrium - Primary Personal history of malignant neoplasm o f other parts of uterus documented in this encounter Care Teams Chemical Instrumentation Officer Relationship Specialty Start Date End Date Olamide Rodney MD PCP - General 09/25/10 01/11/21 [address] [place] [address] documented as of this encounter
--- OUTSIDE RECORDS SUMMARY | 2022-02-08 14:27 | XMS_ITS | Encounter Summary ---
:1960 Author Organization [employer] Address [address] [place] [address] Care Team Providers Name Role Phone Olamide Rodney MD Primary Care Provider Reason for Visit Reason Comments Other Encounter Details Date Type Department Care Team Description 10/16/2010 Telephone [facility] [address] Harje[address] Solis, RN Other Gynecology Oncology [address] [place], [place] [address] Social History Tobacco Use Types Packs/Day Years [...] on filedocumented in this encounter Care Teams Field Auditor Relationship Specialty Start Date End Date Olamide Rodney MD PCP - General 09/25/10 01/11/21 [address] [place] [address] documented as of this encounter
--- OUTSIDE RECORDS SUMMARY | 2022-02-08 14:27 | XMS_ITS | Encounter Summary ---
:1960 Author Organization [employer] Address [address] [place] [address] Care Team Providers Name Role Phone Shira Rodney MD Primary Care Provider Encounter Details Date Type Department Care Team Description 12/18/2010 Office Visit [facility] [place] [address] [address] [place], [place] [id number] (Wo rk) Social History Tobacco Use Types Packs/Day Years Used Date Smoking Tobacco: Never Alcohol Use Standard Drinks/Week Comments Yes 0 (1 standard drink = 0.6 oz pure alcoho l) mod Sex Assigned at Date Recorded Not on file documented as of this encounter Progress Notes Tatum Mac MD - 12/18/2010 12:01 AM CDT NAME: PATY LLAMAS MR#: [id number] ACCT: [id number] VISIT: [id number] DICTATING CLINICIAN: Tatum Mac MD CONFIRM #: [id number] LOC: 514 CLINIC PROGRESS NOTE DATE OF VISIT: 12/18/2010 : 1960 Paty is a 49-year-old white female seen at the request of Dr. Shira Rodney for allergy and asthma evaluation. She was seen by an veterinary technician many years ago and told of multiple positive reactions. Basically she chooses to avoid triggers and puts up with many symptoms. On rare occasion she will take diphenhydramine which is fairly well tolerated. Paty's parents lived in [place], [place]. Her dad 1-1/2 years ago. At [...] carpeted bedroom. No feathers. 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 No [...] Rodney, referring provider. CC: [place] [address] [place] [address] PJH:MEDQ C: CONFIRM #: [id number] documented in this encounter Plan of Treatment Not on filedocumented as of this encounter Visit Diagnoses Not on filedocumented in this encounter Care Teams Industrial Chemicals Supervisor Relationship Specialty Start Date End Date Shira Rodney MD PCP - General 09/25/10 01/11/21 [address] [place] [address] documented as of this encounter
--- OUTSIDE RECORDS SUMMARY | 2022-02-08 14:27 | XMS_ITS | Encounter Summary ---
:1960 Author Organization [facility] Address [address] [place] [address] Care Team Providers Name Role Phone Olamide Rodney MD Primary Care Provider Encounter Details Date Type Department Care Team Description 05/01/2011 [facility] [address] [place], [place] [id number] Social History Tobacco Use Types Packs/Day Years [...] on filedocumented in this encounter Care Teams Armature Coil Winder Relationship Specialty Start Date End Date Olamide Rodney MD PCP - General 09/25/10 01/11/21 [address] [place] [address] documented as of this encounter
--- OUTSIDE RECORDS SUMMARY | 2022-02-08 14:27 | XMS_ITS | Encounter Summary ---
:1960 Author Organization [employer] Address [address], [place] [address] Care Team Providers Name Role Phone Olamide Rodney MD Primary Care Provider Reason for Visit Reason Comments Abnormal Pap Smear Encounter Details Date Type Department Care Team Description 07/26/2011 Office Visit [place] Jeremy Madrid Hx of can cer of endometrium; Obstetrics/Gynecolog MD Joni Endometrial cancer y [address] [facility] [address] [place] [address] [place] [address] [phone] Social History Tobacco Use Types Packs/Day Years Used Date Smoking Tobacco: Never Alcohol Use Standard Drinks/Week Comments Yes 0 (1 standard drink = 0.6 oz pure alcoho l) mod Sex Assigned at Date Recorded Not on file documented as of this encounter Last Filed Vital Signs Vital Sign Reading Time Taken Comments Blood Pressure 128/80 07/26/2011 8:08 AM SOCIAL MEDIA DESIGNER Pulse 72 07/26/2011 8:08 AM SOCIAL MEDIA DESIGNER Temperature - - Respiratory Rate - - Oxygen Saturation - - Inhaled Oxygen Concentration - - Weight 94.8 kg (209 lb) 07/26/2011 8:07 AM SOCIAL MEDIA DESIGNER Height - - Body Mass Index 35.87 [...] AM Result s for this LIQUID BASED SOCIAL MEDIA DESIGNER procedure are i n the results section. PAP SMEAR DIAGNOSTIC Routine 07/26/2011 8:16 AM Endometrial ca ncer Results for this SOCIAL MEDIA DESIGNER (HRC) procedure are i n the results section. documented in this encounter Results Pap Smear (07/26/2011 8:16 AM SOCIAL MEDIA DESIGNER) Specimen (Source) Anatomical Collection Method Collection Time Re ceived Time Location / / Volume Laterality 07/26/2011 8:16 AM SOCIAL MEDIA DESIGNER Narrative HP CONVERSION - 08/01/2011 4:17 PM SOCIAL MEDIA DESIGNER Final GYNECOLOGICAL CYTOLOGY REPORT Pathology #: [id number] ?Date Obtained: 07/26/2011 ? Date Received: 07/29/2011 [...] Jeremy Madrid MD LAB_1 Performing Organization Address City/[facility] [place]/ZIP Code Phon e Number HP CONVERSION Pap Smear Diagnostic (07/26/2011 8:16 AM SOCIAL MEDIA DESIGNER) [facility] gist Method Time Signature PAP Diagnostic Collected HP CONVERSION Specimen Anatomical Collection Method Collection Time Receive d Time (Source) Location / / Volume Laterality 07/26/2011 8:16 AM 2 6:01 SOCIAL MEDIA DESIGNER AM SOCIAL MEDIA DESIGNER Jeremy Madrid MD LAB_1 Performing Organization Address City/[facility] [place]/[facility] Phon e Number HP CONVERSION documented in this encounter Visit Diagnoses Diagnosis Hx of cancer of endometrium Personal history of malignant neoplasm o f other parts of uterus Endometrial cancer (HRC) Malignant neoplasm of corpus uteri, exce pt isthmus documented in this encounter Care Teams Stone Setter Apprentice Relationship Specialty Start Date End Date Olamide Rodney MD PCP - General 09/25/10 01/11/21 [address] [place] [address] documented as of this encounter
--- OUTSIDE RECORDS SUMMARY | 2022-02-08 14:27 | XMS_ITS | Encounter Summary ---
:1960 Author Organization [employer] Address [address] [place] [address] Care Team Providers Name Role Phone Olamide Rodney MD Primary Care Provider Reason for Visit Reason Comments Diabetes Encounter Details Date Type Department Care Team Description 04/23/2011 Office Visit [facility] Olamide Rodney type 2, controlled (Primary Dx); Hayley Antoine MD Embolism and thrombosis of unspecified s ite; [address] [place] [address] Chronic insomnia; [place] [address] Blvd Congenital deficiency of other clotting factors; [phone] [place], [place] Varicose v eins; [address] Nondependent alcohol abuse; [phone] S/P gastric byp ass (Work) Social History [...] CDT Please call the Pulmonary dept. at [phone] to schedule your appointment. Please call the Vascular Screening dept. at [phone] to schedule your appointment. Follow up with me in Jul 2011, sometime around 08/09. Have fasting labs ahead of time. Please call [phone] to schedule your lab appointment. documented in [...] we do not have the records in [facility] for my review. Her pre-bypass weight [...] 11:41 AM Results for this EXTREMITY BILAT MATERIAL EXPEDITOR procedure ar e in VENOUS REFLUX the results section. documented in this encounter Results US Lower Extremity Bilat Venous Reflux (05/01/2011 11:41 AM MATERIAL EXPEDITOR) Anatomical Region Laterality Modality Vascular, Lower Extremity, Leg Other Specimen (Source) Anatomical Location Collection Method / Collectio n Time Received Time / Laterality Volume Impressions 05/01/2011 4:45 PM MATERIAL EXPEDITOR Right greater saphenous vein incompeten ce at the saphenofemoral junction and from the mid to the distal calf. Incompetent right popliteal vein. No evidence of left lower extremity arun p or superficial venous incompetence. No evidence of right or left lower extr emity deep venous thrombosis. Narrative 05/01/2011 4:45 PM MATERIAL EXPEDITOR Indication: varicose veins A duplex ultrasound study [...] status documented in this encounter Care Teams Card Player Relationship Specialty Start Date End Date Olamide Rodney MD PCP - General 09/25/10 01/11/21 [address] [place] [address] documented as of this encounter
--- OUTSIDE RECORDS SUMMARY | 2022-02-08 14:27 | XMS_ITS | Encounter Summary ---
:1960 Author Organization [employer] Address [address] [place] [address] Care Team Providers Name Role Phone Olamide Rodney MD Primary Care Provider Reason for Visit Reason Comments Other Encounter Details Date Type Department Care Team Description 10/05/2010 Telephone [facility] 3931 Harjeet Solis, RN Other Gynecology Oncology [address] [place], [place] [phone] Social History Tobacco Use Types Packs/Day Years [...] on filedocumented in this encounter Care Teams Consultant Rn Relationship Specialty Start Date End Date Olamide Rodney MD PCP - General 09/25/10 01/11/21 [address] [place] [address] documented as of this encounter
--- OUTSIDE RECORDS SUMMARY | 2022-02-08 14:27 | XMS_ITS | Encounter Summary ---
:1960 Author Organization [employer] Address [address] [place] [address] Care Team Providers Name Role Phone Olamide Rodney MD Primary Care Provider Reason for Visit Reason Comments Abnormal Pap Smear Encounter Details Date Type Department Care Team Description 04/22/2011 Office Visit [place] Jeremy Madrid Personal history of Obstetrics/Gynecolog MD Joni malignant neoplasm y [address] of other parts of [address] [place] [address] uterus (Primary Dx) [place] [address] [phone] Social History Tobacco Use Types Packs/Day Years [...] Primary documented in this encounter Care Teams Rope Silica Machine Operator Relationship Specialty Start Date End Date Olamide Rodney MD PCP - General 09/25/10 01/11/21 05[address] [place] [address] documented as of this encounter
--- OUTSIDE RECORDS SUMMARY | 2022-02-08 14:27 | XMS_ITS | Encounter Summary ---
:1960 Author Organization [employer] Address [address] [place] [address] Care Team Providers Name Role Phone Olamide Rodney MD Primary Care Provider Encounter Details Date Type Department Care Team Description 09/22/2012 [facility] [place] [address] [place] [address] Social History Tobacco Use Types Packs/Day Years Used Date Smoking Tobacco: Never Alcohol Use Standard Drinks/Week Comments Yes 0 (1 standard drink = 0.6 oz pure alcoho l) mod Sex Assigned at Date Recorded Not on file documented as of this encounter Plan of Treatment Not on filedocumented as of this encounter Visit Diagnoses Not on filedocumented in this encounter Care Teams Ironworker Apprentice Relationship Specialty Start Date End Date Olamide Rodney MD PCP - General 09/25/10 01/11/21 [address] [place], [place] [address] documented as of this encounter
--- OUTSIDE RECORDS SUMMARY | 2022-02-08 14:28 | XMS_ITS | Encounter Summary ---
:1960 Author Organization [employer] Address [address] [place] [address] Care Team Providers Name Role Phone Olamide Rodney MD Primary Care Provider Encounter Details Date Type Department Care Team Description 08/31/2010 Office Visit [facility] [address] Ta Brink MD Dermatology [address] [facility] [address] [place] [address] [place] [address] [phone] Social History Tobacco Use Types Packs/Day Years Used Date Smoking Tobacco: Never Alcohol Use Standard Drinks/Week Comments Yes 0 (1 standard drink = 0.6 oz pure alcoho l) mod Sex Assigned at Date Recorded Not on file documented as of this encounter Progress Notes Ta Brink MD - 08/31/2010 12:01 AM CST NAME: PATY LLAMAS MR#: [id number] ACCT: [id number] VISIT: [id number] DICTATING CLINICIAN: Ta Brink MD CONFIRM #: [id number] LOC: 427 CLINIC PROGRESS NOTE DATE OF [...] 1% Xylocaine with epinephrine, shaved with a [place] Blade. 2. Actinic keratosis or Vasquez disease [...] does not resolve. YW:DUANE C: CONFIRM #: [id number] documented in this encounter Plan of Treatment Not on filedocumented as of this encounter Visit Diagnoses Not on filedocumented in this encounter Care Teams Office Inspector Relationship Specialty Start Date End Date Olamide Rodney MD PCP - General 09/25/10 01/11/21 2352 [place] [address] documented as of this encounter
--- OUTSIDE RECORDS SUMMARY | 2022-02-08 14:28 | XMS_ITS | Encounter Summary ---
:1960 Author Organization [employer] Address [address] [place] [address] Care Team Providers Name Role Phone Olamide Rodney MD Primary Care Provider Encounter Details Date Type Department Care Team Description 03/13/2008 Office Visit [facility] [place] [address] [place] [address] [place] [address] [phone] Social History Tobacco Use Types Packs/Day Years [...] 0658 Note Time: 03/13/08 0001 Status: Signed Repair Welder: Sharon Sandoval MD (Physician) NAME: PATY LLAMAS MR#: [id number] ACCT: [id number] VISIT: [id number] DICTATING CLINICIAN: SHARON SANDOVAL MD CONFIRM #: [id number] LOC: 520 CLINIC PROGRESS NOTE DATE OF [...] PLAN: See assessment. FINAL DIAGNOSIS: Herpes zoster. [id number]:[id number] C: 03/16/08 17:49 CONFIRM #: [id number] ION WORKER documented in this encounter Plan of Treatment Not on filedocumented as of this encounter Visit Diagnoses Not on filedocumented in this encounter Care Teams Hvac Service Technician Relationship Specialty Start Date End Date Olamide Rodney MD PCP - General 09/25/10 01/11/21 [address] [place] [address] documented as of this encounter
--- OUTSIDE RECORDS SUMMARY | 2022-02-08 14:28 | XMS_ITS | Encounter Summary ---
:1960 Author Organization [employer] Address [address] [address] Care Team Providers Name Role Phone Olamide Rodnye MD Primary Care Provider Encounter Details Date Type Department Care Team Description 10/29/2006 Office Visit [facility] Danni Jimenez, [address] [facility] [place] [address] [address] [phone] [place], [place] [address] (Wo rk) Social History [...] signed by Danni Cramer MD at 10/29/06 8742 Author: Danni Cramer MD Service: (none) Author Type: Physician Filed: 10/12/10 8449 Note Time: 10/29/06 0001 Status: Signed Inserter: Danni Cramer MD (Physician) Preventive Exam & [...] has had a vasectomy Past Medical History: Management Lead History: Pt. 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 Pap [...] adenopathy. Pelvic: Normal external genitalia and urethra. [place], moist vaginal and cervical mucosa, without lesions. [...] on filedocumented in this encounter Care Teams Trial Justice Relationship Specialty Start Date End Date Olamide Rodney MD PCP - General 09/25/10 01/11/21 [address] [place] [address] documented as of this encounter
--- OUTSIDE RECORDS SUMMARY | 2022-02-08 14:28 | XMS_ITS | Encounter Summary ---
:1960 Author Organization [employer] Address [address] [place] [address] Care Team Providers Name Role Phone Olamide Rodney MD Primary Care Provider Encounter Details Date Type Department Care Team Description 08/31/2010 PN Conversion Only GUMMED TAPE PRESS OPERATOR [address] CON[address] Ta Brink MD [address] [place] [address] [place] [address] (Wo rk) Social History Tobacco [...] 6:00 AM Re sults for this [place] SPEAKER MOUNTER procedure are i n the results section. documented in this encounter Results Pathology Report (08/31/2010 6:00 AM SPEAKER MOUNTER) Component Value Ref Test Analysis Performed At [facility] gist Range Method Time Signature Path: ? Final DERMATOPATHOLOGY REPO RT HP CONVERSION Pathology #: [id number] ? Date Obtained: 08/31/2010 ?Date Received: 08/31/2010 [...] PUNCH BIOPSY 08/31/2010 6:00 AM 08/21 6:00 SPECIMEN / Unknown SPEAKER MOUNTER AM SPEAKER MOUNTER Ta Brink MD LAB_1 Performing Organization Address City/State/ZIP Code Phon e Number HP CONVERSION documented in this encounter Visit Diagnoses Not on filedocumented in this encounter Care Teams Drilling Contractor Relationship Specialty Start Date End Date Olamide Rodney MD PCP - General 09/25/10 01/11/21 [address] [place], [place] [address] documented as of this encounter
--- OUTSIDE RECORDS SUMMARY | 2022-02-08 14:28 | XMS_ITS | Encounter Summary ---
:1960 Author Organization [employer] Address [address] [place] [address] Care Team Providers Name Role Phone Olamide Rodney MD Primary Care Provider Encounter Details Date Type Department Care Team Description 01/01/2007 PN Conversion Only [facility] [address] [place] [address] Social History Tobacco Use Types Packs/Day Years [...] on filedocumented in this encounter Care Teams Oceanographer Geological Relationship Specialty Start Date End Date Olamide Rodney MD PCP - General 09/25/10 01/11/21 [address] [place] [address] documented as of this encounter
--- OUTSIDE RECORDS SUMMARY | 2022-02-08 14:28 | XMS_ITS | Encounter Summary ---
:1960 Author Organization [facility] Address [address] [place] [address] Care Team Providers Name Role Phone Olamide Rodney MD Primary Care Provider Encounter Details Date Type Department Care Team Description 09/18/2010 Notes/Orders CONVERSION CONVERSION Conversion , User GTS SOFÍA [place] [address] Social History Tobacco Use Types Packs/Day Years [...] on filedocumented in this encounter Care Teams Accounting Systems Analyst Relationship Specialty Start Date End Date Olamide Rodney MD PCP - General 09/25/10 01/11/21 38[address] [place] [address] documented as of this encounter
--- OUTSIDE RECORDS SUMMARY | 2022-02-08 14:28 | XMS_ITS | Encounter Summary ---
:1960 Author Organization [email or web address] Address [address] [place] [address] Care Team Providers Name Role Phone Olamide Rodney MD Primary Care Provider Encounter Details Date Type Department Care Team Description 05/06/2006 Nursing Visit [facility] [place] [address] [facility] [address] [place] [address] [place] [phone] [address] Social History Tobacco Use Types Packs/Day Years Used Date Smoking Tobacco: Never Alcohol Use Standard Drinks/Week Comments Yes 0 (1 standard drink = 0.6 oz pure alcoho l) mod Sex Assigned at Date Recorded Not on file documented as of this encounter Plan of Treatment Not on filedocumented as of this encounter Visit Diagnoses Not on filedocumented in this encounter Care Teams Non Destructive Testing Engineer Relationship Specialty Start Date End Date Olamide Rodney MD PCP - General 09/25/10 01/11/21 38[address] [place], [place] [address] documented as of this encounter
--- OUTSIDE RECORDS SUMMARY | 2022-02-08 14:28 | XMS_ITS | Encounter Summary ---
:1960 Author Organization [employer] Address [address] [place] [address] Care Team Providers Name Role Phone Olamide Rodney MD Primary Care Provider Reason for Visit Reason Comments Other Encounter Details Date Type Department Care Team Description 09/11/2010 Telephone [facility] [address] [place], Message Other Obstetrics/Gynecolog y [address] [place], [place] [phone] Social History Tobacco Use Types Packs/Day Years Used Date Smoking Tobacco: Never Alcohol Use Standard Drinks/Week Comments Yes 0 (1 standard drink = 0.6 oz pure alcoho l) mod Sex Assigned at Date Recorded Not on file documented as of this encounter Progress Notes [place], Message - 09/11/2010 3:44 PM CDT lm for pt on both lines written on paperwork Created on 11Sep2010 3:44pm by MICHAEL LADD documented in this encounter Plan of Treatment Not on filedocumented as of this encounter Visit Diagnoses Not on filedocumented in this encounter Care Teams Sheep Boner Relationship Specialty Start Date End Date Olamide Rodney MD PCP - General 09/25/10 01/11/21 [address] [place], [place] [address] documented as of this encounter
--- OUTSIDE RECORDS SUMMARY | 2022-02-08 14:28 | XMS_ITS | Encounter Summary ---
:1960 Author Organization [employer] Address [address], [place] [address] Care Team Providers Name Role Phone Olamide Rodney MD Primary Care Provider Encounter Details Date Type Department Care Team Description 09/03/2010 Office Visit Jeremy Aguiar, Obstetrics/Gynecolog y [address] [facility] [address] [place] [address] [place] [address] [phone] (Wo rk) Social History Tobacco Use Types [...] 12:01 AM CDT NAME: PATY LLAMAS MR#: [id number] ACCT: [id number] VISIT: [id number] DICTATING CLINICIAN: Jeremy Madrid MD CONFIRM #: [id number] LOC: 512 CLINIC PROGRESS NOTE DATE OF [...] to be benign. CJS:MEDQ C: CONFIRM #: [id number] documented in this encounter Plan of Treatment Not on filedocumented as of this encounter Visit Diagnoses Not on filedocumented in this encounter Care Teams Security Director Relationship Specialty Start Date End Date Olamide Rodney MD PCP - General 09/25/10 01/11/21 0616 [place] [address] documented as of this encounter
--- OUTSIDE RECORDS SUMMARY | 2022-02-08 14:28 | XMS_ITS | Encounter Summary ---
:1960 Author Organization [employer] Address [address] [place] [address] Care Team Providers Name Role Phone Olamide Rodney MD Primary Care Provider Reason for Visit Reason Comments Other Encounter Details Date Type Department Care Team Description 09/04/2010 Telephone [place]Gynec[facility] [address] [facility] [address] [place] [address] [place], [place] [address] (Wo rk) Social History Tobacco Use Types [...] on filedocumented in this encounter Care Teams Slab Puller Relationship Specialty Start Date End Date Olamide Rodney MD PCP - General 09/25/10 01/11/21 [address] [place] [address] documented as of this encounter
--- OUTSIDE RECORDS SUMMARY | 2022-02-08 14:28 | XMS_ITS | Encounter Summary ---
:1960 Author Organization [employer] Address [address] [address] Care Team Providers Name Role Phone Olamide Rodney MD Primary Care Provider Encounter Details Date Type Department Care Team Description 08/08/2010 Office Visit [facility] Malka Rodney MD [address] [address] [place], [place] [address] [phone] Social History Tobacco Use Types Packs/Day Years Used Date Smoking Tobacco: Never Alcohol Use Standard Drinks/Week Comments Yes 0 (1 standard drink = 0.6 oz pure alcoho l) mod Sex Assigned at Date Recorded Not on file documented as of this encounter Last Filed Vital Signs Vital Sign Reading Time Taken Comments Blood Pressure 124/82 08/08/2010 9:33 AM AGRICULTURAL RESEARCHER Pulse 64 08/08/2010 9:33 AM AGRICULTURAL RESEARCHER Temperature - - Respiratory Rate - - Oxygen Saturation - - Inhaled Oxygen Concentration - - Weight 96 kg (211 lb 9.6 oz) 08/08/2010 9:33 AM AGRICULTURAL RESEARCHER C: 96.0kg Height 163.8 cm (5' 4.5) 08/08/2010 9:33 AM AGRICULTURAL RESEARCHER C: 163 .8cm Body Mass Index 35.76 08/08/2010 9:33 AM AGRICULTURAL RESEARCHER documented in this encounter Progress Notes Olamide Rodney MD - 08/08/2010 12:01 AM CST NAME: PATY LLAMAS MR#: [id number] ACCT: [id number] VISIT: [id number] DICTATING CLINICIAN: Olamide Rodney MD CONFIRM #: [id number] LOC: 506 CLINIC PROGRESS NOTE DATE OF [...] and cardio. Bone density approximately 2008 outside [facility]. Colonoscopy 2009 outside [facility], patient states it was normal. She [...] stepdaughter. 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 HABITS: No caffeine. Two to 3 alcohol [...] to address today. SME:MEDQ C: CONFIRM #: [id number] CULTURAL RESEARCHER documented in this encounter Plan of Treatment Not on filedocumented as of this encounter Visit Diagnoses Not on filedocumented in this encounter Care Teams Semiconductor Dies Loader Relationship Specialty Start Date End Date Olamide Rodney MD PCP - General 09/25/10 01/11/21 [address] [place] [address] documented as of this encounter
--- OUTSIDE RECORDS SUMMARY | 2022-02-08 14:28 | XMS_ITS | Encounter Summary ---
:1960 Author Organization [employer] Address [address] [place] [address] Care Team Providers Name Role Phone Olamide Rodney MD Primary Care Provider Encounter Details Date Type Department Care Team Description 08/07/2007 Office Visit [facility] [place] [address] [place] [address] Social History Tobacco Use Types Packs/Day Years Used Date Smoking Tobacco: Never Alcohol Use Standard Drinks/Week Comments Yes 0 (1 standard drink = 0.6 oz pure alcoho l) mod Sex Assigned at Date Recorded Not on file documented as of this encounter Last Filed Vital Signs Vital Sign Reading Time Taken Comments Blood Pressure 150/83 08/07/2007 11:33 AM C: [employer] PROPELLER LAYOUT WORKER Pulse 54 08/07/2007 11:33 AM PROPELLER LAYOUT WORKER Temperature 36.3 ??C (97.3 ??F) 08/07/2007 11:33 AM ORAL C: 36.3 C PROPELLER LAYOUT WORKER Respiratory Rate 16 08/07/2007 11:33 AM PROPELLER LAYOUT WORKER Oxygen Saturation - - Inhaled Oxygen Concentration - - Weight - - Height - - Body Mass Index - - documented in this encounter Progress Notes Maria E Brown MD - 08/07/2007 12:01 AM CST Progress Notes signed by Maria E Brown MD at 09/02/07 9662 Author: Maria E Brown MD Service: (none) Author Type: Physician Filed: 10/13/10 0038 Note Time: 08/07/07 0001 Status: Signed Ui Application Developer: Maria E Brown MD (Physician) NAME: PATY LLAMAS MR#: [id number] ACCT: [id number] VISIT: [id number] DICTATING CLINICIAN: MARIA E BROWN MD JOB: [id number] LOC: 520 CLINIC PROGRESS NOTE DATE OF [...] I would recommend symptomatic treatment and observation. [id number] C: 08/10/07 11:10 DOCUMENT: [id number] documented in this encounter Plan of Treatment Not on filedocumented as of this encounter Procedures Procedure Name Priority Date/Time Associated Diagnosis Comme nts XR ABD FLAT AND Routine 08/07/2007 2:20 PM Result s for this UPRIGHT PROPELLER LAYOUT WORKER procedure are i n the results section. documented in this encounter Results XR Abd Flat And Upright (08/07/2007 2:20 PM PROPELLER LAYOUT WORKER) Anatomical Region Laterality Modality Abdomen Other Specimen (Source) Anatomical Location Collection Method / Collectio n Time Received Time / Laterality Volume Narrative 08/07/2007 2:20 PM PROPELLER LAYOUT WORKER Vascular calcifications and surgical clips in the [...] on filedocumented in this encounter Care Teams Diorama Model Maker Relationship Specialty Start Date End Date Olamide Rodney MD PCP - General 09/25/10 01/11/21 [address] [place], [place] [address] documented as of this encounter
--- OUTSIDE RECORDS SUMMARY | 2022-02-08 14:28 | XMS_ITS | Encounter Summary ---
:1960 Author Organization [employer] Address [address] [place] [address] Care Team Providers Name Role Phone Olamide Rodney MD Primary Care Provider Encounter Details Date Type Department Care Team Description 09/29/2006 PN Conversion Only [facility] CONVERSION [address] [place] [address] Social History Tobacco Use Types Packs/Day Years Used Date Smoking Tobacco: Never Alcohol Use Standard Drinks/Week Comments Yes 0 (1 standard drink = 0.6 oz pure alcoho l) mod Sex Assigned at Date Recorded Not on file documented as of this encounter Plan of Treatment Not on filedocumented as of this encounter Visit Diagnoses Not on filedocumented in this encounter Care Teams Real Estate Executive Assistant Relationship Specialty Start Date End Date Olamide Rodney MD PCP - General 09/25/10 01/11/21 [address] [place], [place] [address] documented as of this encounter
--- OUTSIDE RECORDS SUMMARY | 2022-02-08 14:28 | XMS_ITS | Encounter Summary ---
:1960 Author Organization [employer] Address [address] [place] [address] Care Team Providers Name Role Phone Olamide Rodney MD Primary Care Provider Encounter Details Date Type Department Care Team Description 08/08/2010 PN Conversion Only [facility] [address] [place] [address] Social History Tobacco Use Types Packs/Day Years [...] Results f or this SCREENING BILAT W AGRICULTURE SCIENCE TEACHER procedure are in CAD the results section. documented in this encounter Results MM Mammogram Screening Bilat W CAD (08/08/2010 9:13 AM AGRICULTURE SCIENCE TEACHER) Anatomical Region Laterality Modality Breast Bilateral Mammography Specimen (Source) Anatomical Location Collection Method / Collectio n Time Received Time / Laterality Volume Narrative 08/08/2010 3:45 PM AGRICULTURE SCIENCE TEACHER Comparison is made to films from 01/01/2007 [...] on filedocumented in this encounter Care Teams Knife Setter Assembler Relationship Specialty Start Date End Date Olamide Rodney MD PCP - General 09/25/10 01/11/21 [address] [place], [place] [address] documented as of this encounter
--- OUTSIDE RECORDS SUMMARY | 2022-02-08 14:28 | XMS_ITS | Encounter Summary ---
:1960 Author Organization [employer] Address [address] [place] [address] Care Team Providers Name Role Phone Olamide Rodney MD Primary Care Provider Encounter Details Date Type Department Care Team Description 05/25/2010 PN Conversion Only [place] [facility] [address] [address] [place] [address] Social History Tobacco Use Types Packs/Day Years Used Date Smoking Tobacco: Never Alcohol Use Standard Drinks/Week Comments Yes 0 (1 standard drink = 0.6 oz pure alcoho l) mod Sex Assigned at Date Recorded Not on file documented as of this encounter Plan of Treatment Not on filedocumented as of this encounter Visit Diagnoses Not on filedocumented in this encounter Care Teams J2Ee Android Developer Relationship Specialty Start Date End Date Olamide Rodney MD PCP - General 09/25/10 01/11/21 [address] [place], [place] [address] documented as of this encounter
--- OUTSIDE RECORDS SUMMARY | 2022-02-08 14:28 | XMS_ITS | Encounter Summary ---
:1960 Author Organization [employer] Address [address] [place] [address] Care Team Providers Name Role Phone Olamide Rodney MD Primary Care Provider Encounter Details Date Type Department Care Team Description 08/08/2010 PN Conversion Only [facility] [address] [place] [address] Social History Tobacco Use Types Packs/Day Years Used Date Smoking Tobacco: Never Alcohol Use Standard Drinks/Week Comments Yes 0 (1 standard drink = 0.6 oz pure alcoho l) mod Sex Assigned at Date Recorded Not on file documented as of this encounter Plan of Treatment Not on filedocumented as of this encounter Visit Diagnoses Not on filedocumented in this encounter Care Teams Cupola Tender Relationship Specialty Start Date End Date Olamide Rodney MD PCP - General 09/25/10 01/11/21 [address] [place], [place] [address] documented as of this encounter
--- OUTSIDE RECORDS SUMMARY | 2022-02-08 14:28 | XMS_ITS | Encounter Summary ---
:1960 Author Organization [employer] Address [address] [place] [address] Care Team Providers Name Role Phone Olamide Rodney MD Primary Care Provider Encounter Details Date Type Department Care Team Description 01/21/2007 Office Visit [facility] Nicole Monsalve PA-C [address] [place] [address] [place] [address] [phone] (Wo rk) Social History Tobacco Use Types [...] Hartley PA-C Service: (none) Author Type: Physician Laminating Machine Feeder Filed: 10/12/102024 Note Time: 01/21/07 0001 Status: Signed Evaluation Assistant: Nicole Hartley PA-C (Physician Laminating Machine Feeder) Procedure Note: Skin Lesion Destruction CHIEF COMPLAINT: [...] filedocumented in this encounter Care Teams Director Medical Science Relationship Specialty Start Date End Date Olamide Rodney MD PCP - General 09/25/10 01/11/21 [address] [place] [address] documented as of this encounter
--- OUTSIDE RECORDS SUMMARY | 2022-02-08 14:28 | XMS_ITS | Encounter Summary ---
:1960 Author Organization [employer] Address [address] [place] [address] Care Team Providers Name Role Phone Shira Rodney MD Primary Care Provider Reason for Visit Reason Comments Other Encounter Details Date Type Department Care Team Description 08/13/2010 Telephone [facility], Message Other [address] [place] [address] Social History Tobacco Use Types [...] MANRIQUEZ wrote: Pt Paty returning call. Contact #[phone]-between 12:00 and 4:00. On 16Aug2010 4:06pm SHIRA RODNEY wrote: I called her, reviewed abn PAP, and US. next step is to see senior storage administrator. she will call for appt Acknowledged by SHIRA RODNEY on 4:06pm On 17Aug2010 11:15am EL ZAPATA wrote: noted Acknowledged by EL ZAPATA on 11:15am documented in this encounter Plan of Treatment Not on filedocumented as of this encounter Visit Diagnoses Not on filedocumented in this encounter Care Teams Bow Rehairer Relationship Specialty Start Date End Date Shira Rodney MD PCP - General 09/25/10 01/11/21 [address] [place] [address] documented as of this encounter
--- OUTSIDE RECORDS SUMMARY | 2022-02-08 14:28 | XMS_ITS | Encounter Summary ---
:1960 Author Organization [employer] Address [address] [place] [address] Care Team Providers Name Role Phone Olamide Rodney MD Primary Care Provider Reason for Visit Reason Comments Other Encounter Details Date Type Department Care Team Description 03/13/2008 Telephone [facility] Randee Reed [address] [place] [address] Social History Tobacco Use Types [...] Filed: 10/11/10629 Note Time: 03/13/08912 Status: Signed Strategic Planning Consultant: Randee Irizarry RN (Registered Nurse) Pt calling,states [...] Created on 13Mar2008 9:13am by RANDEE IRIZARRY GOODS EXAMINER documented in this encounter Plan of Treatment Not on filedocumented as of this encounter Visit Diagnoses Not on filedocumented in this encounter Care Teams Warp Knitter Relationship Specialty Start Date End Date Olamide Rodney MD PCP - General 09/25/10 01/11/21 [address] [place] [address] documented as of this encounter
--- OUTSIDE RECORDS SUMMARY | 2022-02-08 14:28 | XMS_ITS | Encounter Summary ---
:1960 Author Organization [employer] Address [address] [place] [address] Care Team Providers Name Role Phone Olamide Rodney MD Primary Care Provider Encounter Details Date Type Department Care Team Description 05/25/2010 Office Visit [facility] [place] [address] [facility] [address] [place] [address] [place] [address] Social History Tobacco Use Types Packs/Day Years Used Date Smoking Tobacco: Never Alcohol Use Standard Drinks/Week Comments Yes 0 (1 standard drink = 0.6 oz pure alcoho l) mod Sex Assigned at Date Recorded Not on file documented as of this encounter Last Filed Vital Signs Vital Sign Reading Time Taken Comments Blood Pressure 170/98 05/25/2010 3:07 PM CANVAS GOODS FABRICATOR Pulse 80 05/25/2010 3:07 PM CANVAS GOODS FABRICATOR Temperature 36.8 ??C (98.2 ??F) 05/25/2010 3:07 PM ORAL C: 3 6.8 C CANVAS GOODS FABRICATOR Respiratory Rate 20 05/25/2010 3:07 PM CANVAS GOODS FABRICATOR Oxygen Saturation 99% 05/25/2010 3:07 PM CANVAS GOODS FABRICATOR Inhaled Oxygen Concentration - - Weight - - Height - - Body Mass Index - - documented in this encounter Progress Notes Puneet Carlton MD - 05/25/2010 12:01 AM CST NAME: PATY LLAMAS MR#: [id number] ACCT: [id number] VISIT: [id number] DICTATING CLINICIAN: Puneet Carlton MD CONFIRM #: [id number] LOC: 520 CLINIC PROGRESS NOTE DATE OF VISIT: 05/25/2010 : 1960 SUBJECTIVE: The patient was at [facility] today for a sore throat and had [...] little panicky when she was at the [facility], and that was 3-1/2 hours ago, and [...] with her today. WDL:DUANE C: CONFIRM #: [id number] AS GOODS FABRICATOR documented in this encounter Plan of Treatment Not on filedocumented as of this encounter Visit Diagnoses Not on filedocumented in this encounter Care Teams Manager Of Clinical Relationship Specialty Start Date End Date Olamide Rodney MD PCP - General 09/25/10 01/11/21 [address] [place] [address] documented as of this encounter
--- OUTSIDE RECORDS SUMMARY | 2022-02-08 14:28 | XMS_ITS | Encounter Summary ---
:1960 Author Organization [employer] Address [address] [place] [address] Care Team Providers Name Role Phone Olamide Rodney MD Primary Care Provider Encounter Details Date Type Department Care Team Description 09/10/2010 PN Conversion Only [facility] Jackson Iqbal MD [address] [place] [address] [facility] 5th [place] [address] (Wo rk) Social History Tobacco [...] valves in the aortic position , acute PA, valvular heart disease and atrial fibril lation. [...] Jackson Iqbal MD LAB_1 Performing Organization Address City/[facility]/ZIP Code Phon e Number HP CONVERSION APTT (Activated Partial Thromboplastin Time) (09/10/2010 12:54 PM CDT) [facility] Method Time Signature Partial 28.6 25.0 - HP CONVERSION Thromboplastin Time 38.0 sec Specimen (Source) Anatomical Collection Method Collection Time Re ceived Time Location / / Volume Laterality 09/10/2010 12:54 PM CDT Jackson Iqbal MD LAB_1 Performing Organization Address City/[facility] Code Phon e Number HP CONVERSION Bilirubin, Total (09/10/2010 12:54 PM CDT) athologist Signature Bilirubin Total 0.2 0.2 - 1.2 HP CONVERSION mg/dL Specimen (Source) Anatomical Collection Method Collection Time Re ceived Time Location / / Volume Laterality 09/10/2010 12:54 PM CDT Jackson Iqbal MD LAB_1 Performing Organization Address City/[facility] Code Phon e Number HP CONVERSION Bilirubin, Direct (09/10/2010 12:54 PM CDT) athologist Signature Bilirubin, 0.1 0.0 - 0.4 HP CONVERSION Direct mg/dL Specimen (Source) Anatomical Collection Method Collection Time Re ceived Time Location / / Volume Laterality 09/10/2010 12:54 PM CDT Jackson Iqbal MD LAB_1 Performing Organization Address City/[facility] Code Phon e Number HP CONVERSION AST (09/10/2010 12:54 PM CDT) [facility] Method Time Signature Aspartate 35 0 - 45 HP CONVERSION Aminotransferase U/L Specimen (Source) Anatomical Collection Method Collection Time Re ceived Time Location / / Volume Laterality 09/10/2010 12:54 PM CDT Jackson Iqbal MD LAB_1 Performing Organization Address City/[facility]/ZIP Code Phon e Number HP CONVERSION ALT (SGPT) (09/10/2010 12:54 PM CDT) [facility] Method Time Signature Alanine 23 4 - 55 HP CONVERSION Aminotransferase U/L Specimen (Source) Anatomical Collection Method Collection Time Re ceived Time Location / / Volume Laterality 09/10/2010 12:54 PM CDT Jackson Iqbal MD LAB_1 Performing Organization Address City/[facility]/ZIP Code Phon e Number HP CONVERSION Alkaline Phosphatase, Total (09/10/2010 12:54 PM CDT) athologist Signature Alk Phos 76 25 - 135 U/L HP CONVERSION Specimen (Source) Anatomical Collection Method Collection Time Re ceived Time Location / / Volume Laterality 09/10/2010 12:54 PM CDT Jackson Iqbal MD LAB_1 Performing Organization Address City/[facility] Code Phon e Number HP CONVERSION Albumin (09/10/2010 12:54 PM CDT) athologist Signature Albumin 4.4 3.4 - 5.0 HP CONVERSION g/dL Specimen (Source) Anatomical Collection Method Collection Time Re ceived Time Location / / Volume Laterality 09/10/2010 12:54 PM CDT Jackson Iqbal MD LAB_1 Performing Organization Address [facility] Code Phon e Number HP CONVERSION ANTIBODY SCREEN (09/10/2010 12:53 PM CDT) athologist Signature N/O BB NEG No normal HP CONVERSION ANTIBODY range SCREEN Specimen (Source) Anatomical Collection Method Collection Time Re ceived Time Location / / Volume Laterality 09/10/2010 12:53 PM CDT Jackson Iqbal MD PN BLOOD BANK ORDERS Performing Organization Address City/[facility]/ZIP Code Phon e Number HP CONVERSION BLOOD GROUP & RH (BLOOD TYPE) (09/10/2010 12:53 PM CDT) athologist Signature BB BLOOD TYPE A POS No normal HP CONVERSION (BLOOD GROUP & range RH) Specimen (Source) Anatomical Collection Method Collection Time Re ceived Time Location / / Volume Laterality 09/10/2010 12:53 PM CDT Jackson Iqbal MD PN BLOOD BANK ORDERS Performing Organization Address [facility] Code Phon e Number HP CONVERSION documented in this encounter Visit Diagnoses Not on filedocumented in this encounter Care Teams Technical Sales Advisor Relationship Specialty Start Date End Date Olamide Rodney MD PCP - General 09/25/10 01/11/21 [address] [place] [address] documented as of this encounter
--- OUTSIDE RECORDS SUMMARY | 2022-02-08 14:28 | XMS_ITS | Encounter Summary ---
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) 200MCG/INH INHALERIndications: Unspecified asthma(493.90) ([facility]) documented as of this encounter Procedure Notes Juan Iqbal MD - 09/18/2010 12:01 AM CDT OR Surgeon signed by Juan Iqbal MD at 10/09/10 9569 Author: Juan Iqbal MD Service: (none) Author Type: Physician Filed: 10/23/10 1539 Note Time: 09/28/10 1159 Status: Signed Traveling Crane Operator: Juan Iqbal MD (Physician) NAME: PATY LLAMAS MR#: [id number] ACCT: [id number] DICTATING CLINICIAN: Juan Iqbal MD CONFIRM #: [id number] LOC: 256 OPERATIVE REPORT Corrected Copy 10/02/10 [...] Vicryl suture in an interrupted series of [id number]. At this point, hemostasis was assured, and the larger ports were closed using the Matias-Katharina instrument. The incisions were then infiltrated with Marcaine and ports were removed under direct visualization, and the patient was placed back in the supine position. She was extubated in the operating room without difficulty and brought to the recovery room in stable condition. ANIA:MEDQ C: CONFIRM #: [id number] documented in this encounter Miscellaneous Notes Miscellaneous [...] Provider1 Date Principal: LAPAROSCOPICALLY ASSISTE JUAN IQBAL [id number] 68.51 Provider2: Provider3: SHANNON BLUM Secondary: LAPAROSCOPIC REMOVAL;BOT JUAN IQBAL [id number] 65.63 Provider2: Provider3: REGIONAL LYMPH NODE EXC JUAN IQBAL [id number] 40.3 Provider2: Provider3: documented in this encounter [...] Juan Iqbal MD LAB_1 Performing Organization Address City/[facility] Code Phon e Number HP CONVERSION (ABNORMAL) Hemogram/Plts/Diff (09/19/2010 5:29 AM CDT) [facility] Method Time Signature White Blood Cell [...] Juan Iqbal MD LAB_1 Performing Organization Address [facility] Phon e Number HP CONVERSION N/O LAB NGYN CYTO FINAL REPORT (09/18/2010 7:00 AM CDT) [facility] Method Time Signature Path: ? Final CYTOLOGY REPORT HP CONVERSION Pathology #: [id number] ?? Date Obtained: 09/18/2010 ?Date Received: 09/18/2010 [...] substantiates the diagnosis cit ed. CPT Codes: ?09262 x 1 ??63472 x 1 ?End of Report Specimen Anatomical Collection Method Collection Time Receive d Time (Source) Location / / Volume Laterality Pelvis: 09/18/2010 7:00 AM 1 7:00 CDT AM CDT Juan Iqbal MD LAB_1 Performing Organization Address City/State/ZIP Code Phon e Number HP CONVERSION Pathology Report (09/18/2010 7:00 AM CDT) [facility] gist Method Time Signature Path: ?Final SURGICAL PATHOLOGY REP ORT HP CONVERSION Pathology #: [id number] ? Date Obtained: 09/18/2010 ?Date Received: 09/18/2010 [...] sections reveal a lao-pink, stellate ?? lumen. ??Letterer sections are submitted. ??Summary of sections: D1, [...] examination substantiates the diagnoses cited. CPT Codes: ?77748 x 1 ??96149 x 3 ??41568 x 1 ?End of Report Specimen Anatomical Collection Method Collection Time Receive d Time (Source) Location / / Volume Laterality UTERINE STRUCTURE 09/18/2010 7:00 AM 08/22 7:00 / Unknown CDT AM CDT LYMPH NODE BIOPSY 09/18/2010 7:00 AM 08/22 7:00 SPECIMEN / Unknown CDT AM CDT LYMPH NODE BIOPSY 09/18/2010 7:00 AM 08/22 7:00 SPECIMEN / Unknown CDT AM CDT UTERINE STRUCTURE [...] Maggie Jimenez MD LAB_1 Performing Organization Address City/[facility]/ZIP Code Phon e Number HP CONVERSION BEDSIDE GLUCOSE MONITOR (09/18/2010 6:27 AM CDT) athologist Signature Bedside Blood 93 mg/dL HP CONVERSION Glucose Test Specimen (Source) Anatomical Collection Method Collection Time Re ceived Time Location / / Volume Laterality 09/18/2010 6:27 AM CDT Juan Iqbal MD LAB_1 Performing Organization Address City/[facility] Phon e Number HP CONVERSION TYPE AND [...] PN BLOOD BANK ORDERS Performing Organization Address [facility] Phon e Number HP CONVERSION Hemoglobin, Blood (09/18/2010 6:05 AM CDT) athologist Signature Hemoglobin 15.3 11.8 - 15.5 HP CONVERSION g/dL Specimen (Source) Anatomical Collection Method Collection Time Re ceived Time Location / / Volume Laterality 09/18/2010 6:05 AM CDT Juan Iqbal MD LAB_1 Performing Organization Address City/[facility] Code Phon e Number HP CONVERSION Potassium (09/18/2010 6:05 AM CDT) athologist Signature Potassium 3.8 3.5 - 5.2 HP CONVERSION mEq/L Specimen (Source) Anatomical Collection Method Collection Time Re ceived Time Location / / Volume Laterality 09/18/2010 6:05 AM CDT Juan qIbal MD LAB_1 Performing Organization Address [facility] Phon e Number HP CONVERSION documented in this encounter Visit Diagnoses Not on filedocumented in this encounter Care Teams Financial Economist Relationship Specialty Start Date End Date Olamide Rodney MD PCP - General 08/08/10 09/24/10 [address] [place] [address] documented as of this encounter
--- OUTSIDE RECORDS SUMMARY | 2022-02-08 14:28 | XMS_ITS | Encounter Summary ---
:1960 Author Organization [employer] Address [address] [place] [address] Care Team Providers Name Role Phone Olamide Rodney MD Primary Care Provider Encounter Details Date Type Department Care Team Description 08/10/2010 PN Conversion Only [facility] [address] [place] [address] Social History Tobacco Use Types Packs/Day Years [...] PM Res ults for this W EV SHEET METAL WORKER MAINTENANCE procedure are i n the results section. documented in this encounter Results US Pelvic Complete W EV (08/10/2010 2:28 PM SHEET METAL WORKER MAINTENANCE) Anatomical Region Laterality Modality Pelvis Other Specimen (Source) Anatomical Location Collection Method / Collectio n Time Received Time / Laterality Volume Impressions 08/10/2010 2:28 PM SHEET METAL WORKER MAINTENANCE : Ill-defined endometrium measures upper normal for a premenopausal female. Dictating RAMIRO TAFOYA Radiologist Narrative 08/10/2010 2:28 PM SHEET METAL WORKER MAINTENANCE COMPARISON STUDY: ??None. FINDINGS: ??Both transabdominal and [...] Dictating RAMIRO TAFOYA Radiologist Olamide Rodney MD [facility] documented in this encounter Visit Diagnoses Not on filedocumented in this encounter Care Teams Press Breaker Relationship Specialty Start Date End Date Olamide Rodney MD PCP - General 09/25/10 01/11/21 [address] [place] [address] documented as of this encounter
--- OUTSIDE RECORDS SUMMARY | 2022-02-08 14:28 | XMS_ITS | Encounter Summary ---
:1960 Author Organization [email or web address] Address [address] [place] [address] Care Team Providers Name Role Phone Olamide Rodney MD Primary Care Provider Encounter Details Date Type Department Care Team Description 08/07/2007 PN Conversion Only [place] [facility] Maria E Blank, [address] [facility] [place] [address] Social History Tobacco Use Types Packs/Day Years [...] Results f or this ROUTINE(MICRO IF POS) SENIOR JAVASCRIPT DEVELOPER proced ure are in the results section. URINALYSIS Routine 08/07/2007 1:47 PM Results f or this MICROSCOPIC SENIOR JAVASCRIPT DEVELOPER procedure are i n the results section. COMPLETE BLOOD Routine 08/07/2007 1:47 PM Results for this COUNT-W/DIFF SENIOR JAVASCRIPT DEVELOPER procedure are i n the results section. documented in this encounter Results (ABNORMAL) Complete Blood Count-W/Diff (08/07/2007 1:47 PM SENIOR JAVASCRIPT DEVELOPER) [facility] Method Time Signature White Blood Cell 7.4 [...] - HP CONVERSION Hemoglobin Conc 36.5 gm/dL [place] RDW 13.4 11.0 - HP CONVERSION 15.0 [...] / / Volume Laterality 08/07/2007 1:47 PM SENIOR JAVASCRIPT DEVELOPER Maria E Luna MD LAB_1 Performing Organization Address City/State/ZIP Code Phon e Number HP CONVERSION Urinalysis Routine(Micro If Pos) (08/07/2007 1:47 PM SENIOR JAVASCRIPT DEVELOPER) [facility] Method Time Signature Turbidity Clear No normal [...] Specific 1.010 1.005 - 25 HP CONVERSION [place] Specimen (Source) Anatomical Collection Method Collection Time Re ceived Time Location / / Volume Laterality 08/07/2007 1:47 PM SENIOR JAVASCRIPT DEVELOPER Maria E Luna MD LAB_1 Performing Organization Address City/State/ZIP Code Phon e Number HP CONVERSION (ABNORMAL) Urinalysis Microscopic (08/07/2007 1:47 PM SENIOR JAVASCRIPT DEVELOPER) [facility] gist Method Time Signature White Blood Negative 0 - 3 HP CONVERSION Cells Urine Red Blood Cells 0-2/HPF 0 - 2 HP CONVERSION Urine Bacteria Urine Rare (A) None HP CONVERSION Epithelial Few Few /HPF HP CONVERSION Cells Specimen (Source) Anatomical Collection Method Collection Time Re ceived Time Location / / Volume Laterality 08/07/2007 1:47 PM SENIOR JAVASCRIPT DEVELOPER Maria E Luna MD LAB_1 Performing Organization Address City/State/ZIP Code Phon e Number HP CONVERSION documented in this encounter Visit Diagnoses Not on filedocumented in this encounter Care Teams Archaeologist Relationship Specialty Start Date End Date Olamide Rodney MD PCP - General 09/25/10 01/11/21 [address] [place] [address] documented as of this encounter
--- OUTSIDE RECORDS SUMMARY | 2022-02-08 14:28 | XMS_ITS | Encounter Summary ---
:1960 Author Organization [employer] Address [address] [place] [address] Care Team Providers Name Role Phone Olamide Rodney MD Primary Care Provider Encounter Details Date Type Department Care Team Description 09/10/2010 Office Visit [facility] [address] Wilbur Iqbal MD Gynecology Oncology [address] [facility] [address] [facility] 5th [place] [address] [phone] Social History Tobacco Use Types Packs/Day Years [...] 1539 Note Time: 09/10/10 0001 Status: Signed Emd Teacher: Jackson Iqbal MD (Physician) NAME: PATY LLAMAS MR#: [id number] ACCT: [id number] VISIT: [id number] DICTATING CLINICIAN: Jackson Iqbal MD CONFIRM #: [id number] LOC: 256 CLINIC PROGRESS NOTE DATE OF [...] eyes. PAST OBSTETRIC HISTORY: No attempts. PAST MANAGER CIVIL HISTORY: No abnormal Pap smears prior to [...] preoperative process today. CC: [place] [address] [place] [address] ANIA:DUANE C: CONFIRM #: [id number] documented in this encounter Plan of Treatment Not on filedocumented as of this encounter Visit Diagnoses Not on filedocumented in this encounter Care Teams Spinner Concrete Pipe Relationship Specialty Start Date End Date Olamide Rodney MD PCP - General 09/25/10 01/11/21 [address] [place] [address] documented as of this encounter
--- OUTSIDE RECORDS SUMMARY | 2022-02-08 14:28 | XMS_ITS | Encounter Summary ---
:1960 Author Organization [employer] Address [address] [place] [address] Care Team Providers Name Role Phone Olamide Rodney MD Primary Care Provider Encounter Details Date Type Department Care Team Description 07/31/2006 Office Visit [facility] Nicole Monsalve PA-C [address] [place] [address] [place] [address] [phone] (Wo rk) Social History Tobacco Use Types Packs/Day Years Used Date Smoking Tobacco: Never Alcohol Use Standard Drinks/Week Comments Yes 0 (1 standard drink = 0.6 oz pure alcoho l) mod Sex Assigned at Date Recorded Not on file documented as of this encounter Progress Notes Nicole Monsalve PA-C - 07/31/2006 12:01 AM CST Progress Notes signed by Nicole Monsalve PA-C at 07/31/06 2808 Author: Nicole Hartley PA-C Service: (none) Author Type: Physician Sccm Administrator Filed: 10/12/10 0632 Note Time: 07/31/06 0001 Status: Signed Personnel Director: Nicole Hartley PA-C (Physician Sccm Administrator) SUBJECTIVE: Patient presents today for a skin [...] discharged ambulatory and in stable condition. *SH~DNS~SOAP UNTS RECEIVABLE EXECUTIVE documented in this encounter Plan of Treatment Not on filedocumented as of this encounter Visit Diagnoses Not on filedocumented in this encounter Care Teams Research Laboratory Manager Relationship Specialty Start Date End Date Olamide Rodney MD PCP - General 09/25/10 01/11/21 [address] [place], [place] [id number] documented as of this encounter
--- OUTSIDE RECORDS SUMMARY | 2022-02-08 14:28 | XMS_ITS | Encounter Summary ---
:1960 Author Organization [employer] Address [address] [place] [address] Care Team Providers Name Role Phone Olamide Rodney MD Primary Care Provider Encounter Details Date Type Department Care Team Description 09/18/2010 PN Conversion Only OTHER CONVERSION [address] [place] [address] Social History Tobacco Use Types Packs/Day Years Used Date Smoking Tobacco: Never Alcohol Use Standard Drinks/Week Comments Yes 0 (1 standard drink = 0.6 oz pure alcoho l) mod Sex Assigned at Date Recorded Not on file documented as of this encounter Plan of Treatment Not on filedocumented as of this encounter Visit Diagnoses Not on filedocumented in this encounter Care Teams Bench Inspector Relationship Specialty Start Date End Date Olamide Rodney MD PCP - General 09/25/10 01/11/21 [address] [place], [place] [address] documented as of this encounter
--- OUTSIDE RECORDS SUMMARY | 2022-02-08 14:28 | XMS_ITS | Encounter Summary ---
:1960 Author Organization [email or web address] Address [address] [place] [address] Care Team Providers Name Role Phone Olamide Rodney MD Primary Care Provider Encounter Details Date Type Department Care Team Description 08/08/2010 PN Conversion Only [place] [facility] N Olamide Rodney, [address] [place] [address] [address] [place] [address] (Wo rk) Social History Tobacco [...] 12:26 Results for this LIQUID BASED PM [facility] procedure are i n the results section. ALBUMIN/CREAT RATIO Routine 08/08/2010 11:05 Resu lts for this AM [facility] procedure are i n the results section. IRON BINDING CAPACITY Routine 08/08/2010 11:03 Re sults for this (INCL IRON) AM [facility] procedure are i n the results section. VITAMIN B1, BLOOD Routine 08/08/2010 11:03 Result s for this AM [facility] procedure are i n the results section. COPPER, SERUM Routine 08/08/2010 11:03 Results fo r this AM [facility] procedure are i n the results section. GLUCOSE Routine 08/08/2010 11:03 Results for this AM [facility] procedure are i n the results section. THYROID STIMULATING Routine 08/08/2010 11:03 Resu lts for this HORMONE AM [facility] procedure are i n the results section. VITAMIN B6 Routine 08/08/2010 11:03 Results for this AM [facility] procedure are i n the results section. LIPID PANEL AND Routine 08/08/2010 11:03 Results for this DIRECT LDL(IF NEEDED) AM [facility] proced ure are in the results section. VITAMIN D 25-HYDROXY, Routine 08/08/2010 11:03 Re sults for this TOTAL AM [facility] procedure are i n the results section. INTACT PTH Routine 08/08/2010 11:03 Results for this AM [facility] procedure are i n the results section. CREATININE / GFR Routine 08/08/2010 11:03 Results for this AM [facility] procedure are i n the results section. COMPLETE BLOOD Routine 08/08/2010 11:03 Results f or this COUNT-W/DIFF AM [facility] procedure are i n the results section. DIFFERENTIAL Routine 08/08/2010 11:03 Results for this AM [facility] procedure are i n the results section. ELECTROLYTE PANEL Routine 08/08/2010 11:03 Result s for this AM [facility] procedure are i n the results section. VIT B12 & FOLATE Routine 08/08/2010 11:03 Results for this AM [facility] procedure are i n the results section. MAGNESIUM Routine 08/08/2010 11:03 Results for this AM [facility] procedure are i n the results section. FERRITIN Routine 08/08/2010 11:03 Results for this AM [facility] procedure are i n the results section. HGB A1C Routine 08/08/2010 11:03 Results for this AM [facility] procedure are i n the results section. ALT (SGPT) Routine 08/08/2010 11:03 Results for this AM [facility] procedure are i n the results section. AST Routine 08/08/2010 11:03 Results for this AM [facility] procedure are i n the results section. PHOSPHORUS Routine 08/08/2010 11:03 Results for this AM [facility] procedure are i n the results section. CALCIUM Routine 08/08/2010 11:03 Results for this AM [facility] procedure are i n the results section. BILIRUBIN, TOTAL Routine 08/08/2010 11:03 Results for this AM [facility] procedure are i n the results section. BILI - DIRECT Routine 08/08/2010 11:03 Results fo r this AM [facility] procedure are i n the results section. ALKALINE PHOSPHATASE, Routine 08/08/2010 11:03 Re sults for this TOTAL AM [facility] procedure are i n the results section. ALBUMIN Routine 08/08/2010 11:03 Results for this AM [facility] procedure are i n the results section. documented in this encounter Results Pap Smear (08/08/2010 12:26 PM [facility]LE [facility]) P athologist Signature Pap Smear SEE TEXT No normal HP CONVERSION range Comment: Final GYNECOLOGICAL CYTOLOGY REPORT Pathology #: [id number] ?Date Obta ined: 08/08/2010 ? Date Received: [...] / / Volume Laterality 08/08/2010 12:26 PM [facility]ACLE DBA Olamide Rodney MD LAB_1 Performing Organization Address City/State/ZIP Code Phon e Number HP CONVERSION Microalb/Creat Ratio (08/08/2010 11:05 AM [facility]) Analysis Performed At Patho logist Time Signature Microalbumin <6.0 mg/L HP CONVERSION Urine U Creat Random 31 mg/dL HP CONVERSION Microalbumin/Crea <10.0 0.0 - 30.0 HP CONVERSI ON tinine Ratio Specimen (Source) Anatomical Collection Method Collection Time Re ceived Time Location / / Volume Laterality 08/08/2010 11:05 AM [facility] Olamide Rodney MD LAB_1 Performing Organization Address City/State/ZIP Code Phon e Number HP CONVERSION Magnesium (08/08/2010 11:03 AM [facility]) athologist Signature Magnesium 2.2 1.5 - 2.4 HP CONVERSION mg/dL Specimen (Source) Anatomical Collection Method Collection Time Re ceived Time Location / / Volume Laterality 08/08/2010 11:03 AM [facility] Olamide Rodney MD LAB_1 Performing Organization Address City/State/ZIP Code Phon e Number HP CONVERSION Intact PTH (08/08/2010 11:03 AM [facility]) athologist Signature PTH 80 10 - 100 HP CONVERSION pg/mL Specimen (Source) Anatomical Collection Method Collection Time Re ceived Time Location / / Volume Laterality 08/08/2010 11:03 AM [facility] Olamide Rodney MD LAB_1 Performing Organization Address City/[facility] Code Phon e Number HP CONVERSION VITAMIN B1 (08/08/2010 11:03 AM [facility]) athologist Signature Vitamin B1 108 70 - [...] 10%, are not danielle ured. Performed at [employer] [address] [place] [address] 8410 8 Specimen (Source) Anatomical Collection Method Collection Time Re ceived Time Location / / Volume Laterality 08/08/2010 11:03 AM ORACLE DBA lOamide Rodney MD LAB_1 Performing Organization Address City/[facility]/ZIP Code Phon e Number HP CONVERSION VITAMIN B6 (08/08/2010 11:03 AM [facility]LE DBA) athologist Signature Pyridox 20 5 - 50 HP CONVERSION Phosphate mcg/L Comment: Performed at [facility] [employer] [address] [place] [address] Specimen (Source) Anatomical Collection Method Collection Time Re ceived Time Location / / Volume Laterality 08/08/2010 11:03 AM [facility]ACLE DBA Olamide Rodney MD LAB_1 Performing Organization Address City/[facility] Phon e Number HP CONVERSION COPPER, SERUM (08/08/2010 11:03 AM [facility] D[facility]) athologist Signature Copper, Serum 146 80 - 155 HP CONVERSION ug/dL Comment: TEST INFORMATION: Copper, Serum Serum copper may be elevated with infect ion, inflammation, stress, copper supplementation, oral con traceptives, and . Concentrations are 2-3 times normal in the third trimester of . Copper may be lo wered with corticosteroids, zinc, malnutrition and malabsorption. Performed at [facility] [address] [place] [address] 8410 8 Specimen (Source) Anatomical Collection Method Collection Time Re ceived Time Location / / Volume Laterality 08/08/2010 11:03 AM ORACLE DBA Olamide Rodney MD LAB_1 Performing Organization Address [facility] Phon e Number HP CONVERSION Differential (08/08/2010 11:03 AM [facility]ACLE DBA) athologist Signature Absolute 1.9 1.8 - 8.0 [...] / / Volume Laterality 08/08/2010 11:03 AM [facility]ACLE DBA Olamide Rodney MD LAB_1 Performing Organization Address City/[facility] Code Phon e Number HP CONVERSION Vitamin D 25-Hydroxy, Total (08/08/2010 11:03 AM [facility]ACLE DBA) athologist Signature Vitamin D 25 Oh 30 20 - 80 HP CONVERSION ng/mL Comment: Deficiency = <20 Adequate ??= 20-29 Preferred = 30-50 Uncertain safety = 51-80 High = >80 Specimen (Source) Anatomical Collection Method Collection Time Re ceived Time Location / / Volume Laterality 08/08/2010 11:03 AM [facility]ACLE DBA Olamide Rodney MD LAB_1 Performing Organization Address City/[facility] Code Phon e Number HP CONVERSION (ABNORMAL) Hemogram/Plts/Diff (08/08/2010 11:03 AM [facility]ACLE DBA) Patholo gist Method Time Signature White Blood [...] / / Volume Laterality 08/08/2010 11:03 AM ORACLE DBA Olamide Rodney MD LAB_1 Performing Organization Address City/[facility]/ZIP Code Phon e Number HP CONVERSION (ABNORMAL) Vit B12 & Folate (08/08/2010 11:03 AM ORACLE DBA) Analysis Performed At Patho logist Time Signature Vitamin B12 1,061 (H) 211 - 911 HP CONVERSION pg/dL Serum Folate >24.0 >5.9 ng/mL HP CONVERSION Specimen (Source) Anatomical Collection Method Collection Time Re ceived Time Location / / Volume Laterality 08/08/2010 11:03 AM ORACLE DBA Olamide Rodney MD LAB_1 Performing Organization Address City/[facility]/ZIP Code Phon e Number HP CONVERSION THYROID STIMULATING HORMONE (08/08/2010 11:03 AM [facility]ACLE DBA) athologist Signature Thyroid 2.33 0.20 - HP CONVERSION Stimulating 4.50 mIU/L Hormone Specimen (Source) Anatomical Collection Method Collection Time Re ceived Time Location / / Volume Laterality 08/08/2010 11:03 AM [facility]ACLE DBA Olamide Rodney MD LAB_1 Performing Organization Address City/State/ZIP Code Phon e Number HP CONVERSION IRON BINDING CAPACITY (INCL IRON) (08/08/2010 11:03 AM [facility]ACLE DBA) athologist Signature Iron, Serum 112 50 - 165 HP CONVERSION ug/dL Iron Binding 330 250 - 450 HP CONVERSION Capacity ug/dL Iron Saturation 34 20 - 55 % HP CONVERSION Specimen (Source) Anatomical Collection Method Collection Time Re ceived Time Location / / Volume Laterality 08/08/2010 11:03 AM ORACLE DBA Olamide Rodney MD LAB_1 Performing Organization Address City/State/ZIP Code Phon e Number HP CONVERSION Hgb A1c (08/08/2010 11:03 AM ORACLE DBA) athologist Signature HGB A1C 5.4 0.0 - 6.0 % HP CONVERSION Specimen (Source) Anatomical Collection Method Collection Time Re ceived Time Location / / Volume Laterality 08/08/2010 11:03 AM ORACLE DBA Olamide Rodney MD LAB_1 Performing Organization Address City/State/ZIP Code Phon e Number HP CONVERSION Ferritin (08/08/2010 11:03 AM [facility]ACLE DBA) athologist Signature Ferritin Serum 90 10 - 291 HP CONVERSION ng/mL Specimen (Source) Anatomical Collection Method Collection Time Re ceived Time Location / / Volume Laterality 08/08/2010 11:03 AM ORACLE DBA Olamide Rodney MD LAB_1 Performing Organization Address City/State/ZIP Code Phon e Number HP CONVERSION Lipid Panel and Direct LDL(If Needed) (08/08/2010 11:03 AM ORACLE DBA) [facility] gist Method Time Signature Cholesterol 167 [...] / / Volume Laterality 08/08/2010 11:03 AM ORACLE DBA Olamide Rodney MD LAB_1 Performing Organization Address City/State/ZIP Code Phon e Number HP CONVERSION Electrolyte Panel (08/08/2010 11:03 AM ORACLE DBA) athologist Signature Sodium 139 137 - 147 HP CONVERSION mEq/L Potassium 3.9 3.5 - 5.2 HP CONVERSION mEq/L Chloride 102 98 - 110 HP CONVERSION mEq/L Bicarbonate 30 23 - 33 HP CONVERSION mmol/L Specimen (Source) Anatomical Collection Method Collection Time Re ceived Time Location / / Volume Laterality 08/08/2010 11:03 AM ORACLE DBA Olamide Rodney MD LAB_1 Performing Organization Address City/State/ZIP Code Phon e Number HP CONVERSION Phosphorus (08/08/2010 11:03 AM ORACLE DBA) athologist Signature Phosphorus 3.6 2.5 - 4.5 HP CONVERSION Serum mg/dL Specimen (Source) Anatomical Collection Method Collection Time Re ceived Time Location / / Volume Laterality 08/08/2010 11:03 AM ORACLE DBA Olamide Rodney MD LAB_1 Performing Organization Address City/State/ZIP Code Phon e Number HP CONVERSION GLUCOSE (08/08/2010 11:03 AM ORACLE DBA) athologist Signature Lab Glucose 85 60 - 100 HP CONVERSION mg/dL Specimen (Source) Anatomical Collection Method Collection Time Re ceived Time Location / / Volume Laterality 08/08/2010 11:03 AM ORACLE DBA Olamide Rodney MD LAB_1 Performing Organization Address City/[facility] Code Phon e Number HP CONVERSION Creatinine / GFR (08/08/2010 11:03 AM ORACLE DBA) athologist Signature Creatinine 0.8 0.4 - 1.3 [...] / / Volume Laterality 08/08/2010 11:03 AM ORACLE DBA Olamide Rodney MD LAB_1 Performing Organization Address City/State/ZIP Code Phon e Number HP CONVERSION Calcium (08/08/2010 11:03 AM ORACLE DBA) athologist Signature Calcium 9.4 8.5 - 10.5 HP CONVERSION mg/dL Specimen (Source) Anatomical Collection Method Collection Time Re ceived Time Location / / Volume Laterality 08/08/2010 11:03 AM ORACLE DBA Olamide Rodney MD LAB_1 Performing Organization Address City/State/ZIP Code Phon e Number HP CONVERSION Bilirubin, Total (08/08/2010 11:03 AM ORACLE DBA) athologist Signature Bilirubin Total 0.4 0.2 - 1.2 HP CONVERSION mg/dL Specimen (Source) Anatomical Collection Method Collection Time Re ceived Time Location / / Volume Laterality 08/08/2010 11:03 AM ORACLE DBA Olamide Rodney MD LAB_1 Performing Organization Address City/State/ZIP Code Phon e Number HP CONVERSION Bilirubin, Direct (08/08/2010 11:03 AM ORACLE DBA) athologist Signature Bilirubin, 0.1 0.0 - 0.4 HP CONVERSION Direct mg/dL Specimen (Source) Anatomical Collection Method Collection Time Re ceived Time Location / / Volume Laterality 08/08/2010 11:03 AM ORACLE DBA Olamide Rodney MD LAB_1 Performing Organization Address City/State/ZIP Code Phon e Number HP CONVERSION AST (08/08/2010 11:03 AM ORACLE DBA) [facility] gist Method Time Signature Aspartate 31 0 - 45 HP CONVERSION Aminotransferase U/L Specimen (Source) Anatomical Collection Method Collection Time Re ceived Time Location / / Volume Laterality 08/08/2010 11:03 AM ORACLE DBA Olamide Rodney MD LAB_1 Performing Organization Address City/[facility]/ZIP Code Phon e Number HP CONVERSION ALT (SGPT) (08/08/2010 11:03 AM [facility] Signature Alanine 24 4 - 55 HP CONVERSION Aminotransferase U/L Specimen (Source) Anatomical Collection Method Collection Time Re ceived Time Location / / Volume Laterality 08/08/2010 11:03 AM ORACLE DBA Olamide Rodney MD LAB_1 Performing Organization Address City/[facility]/ZIP Code Phon e Number HP CONVERSION Alkaline Phosphatase, Total (08/08/2010 11:03 AM ORACLE DBA) athologist Signature Alk Phos 80 25 - 135 U/L HP CONVERSION Specimen (Source) Anatomical Collection Method Collection Time Re ceived Time Location / / Volume Laterality 08/08/2010 11:03 AM ORACLE DBA Olamide Rodney MD LAB_1 Performing Organization Address City/State/ZIP Code Phon e Number HP CONVERSION Albumin (08/08/2010 11:03 AM ORACLE DBA) athologist Signature Albumin 4.5 3.4 - 5.0 HP CONVERSION g/dL Specimen (Source) Anatomical Collection Method Collection Time Re ceived Time Location / / Volume Laterality 08/08/2010 11:03 AM ORACLE DBA Olamide Rodney MD LAB_1 Performing Organization Address City/[facility]/ZIP [facility] Phon e Number HP CONVERSION documented in this encounter Visit Diagnoses Not on filedocumented in this encounter Care Teams Flight Simulator Teacher Relationship Specialty Start Date End Date Olamide Rodney MD PCP - General 09/25/10 01/11/21 [address] [place] [address] documented as of this encounter
--- OUTSIDE RECORDS SUMMARY | 2022-02-08 14:28 | XMS_ITS | Encounter Summary ---
:1960 Author Organization [employer] Address [address] [place] [address] Care Team Providers Name Role Phone Olamide Rodney MD Primary Care Provider Encounter Details Date Type Department Care Team Description 09/29/2006 [facility] Wall, Sarmad Batres MD Medicine [address] [facility] [address] [place] [address] [place] [address] (Wo rk) Social History Tobacco Use Types [...] on filedocumented in this encounter Care Teams Rugby League Footballer Relationship Specialty Start Date End Date Olamide Rodney MD PCP - General 09/25/10 01/11/21 [address] [place], [place] [address] documented as of this encounter
--- OUTSIDE RECORDS SUMMARY | 2022-02-08 14:28 | XMS_ITS | Encounter Summary ---
:1960 Author Organization [employer] Address [address] [place] [address] Care Team Providers Name Role Phone Olamide Rodney MD Primary Care Provider Encounter Details Date Type Department Care Team Description 09/03/2010 PN Conversion Only [place] CONVERSJeremy Asencio [address] [facility] [place] [address] [address] [place], [place] [address] (Wo rk) Social History [...] Results Pathology Report (09/03/2010 7:00 AM CDT) [facility] gist Method Time Signature Path: ?Final SURGICAL PATHOLOGY REP ORT HP CONVERSION Pathology #: [id number] ? Date Obtained: 09/03/2010 ?Date Received: 09/04/2010 [...] substantiates the diagnosis cit ed. CPT Codes: ?14263 x 1 ?End of Report Specimen Anatomical Location Collection Method Collection Time Received Time (Source) / Laterality / Volume ENDOMETRIAL 09/03/2010 7:00 09/03/2010 7 :00 STRUCTURE / Unknown AM CDT AM CDT Jeremy Madrid MD LAB_1 Performing Organization Address City/State/ZIP Code Phon e Number HP CONVERSION documented in this encounter Visit Diagnoses Not on filedocumented in this encounter Care Teams Well Logger Relationship Specialty Start Date End Date Olamide Rodney MD PCP - General 09/25/10 01/11/21 [address] [place] [address] documented as of this encounter
--- OUTSIDE RECORDS SUMMARY | 2022-02-08 14:28 | XMS_ITS | Encounter Summary ---
:1960 Author Organization [employer] Address [address] [place] [address] Care Team Providers Name Role Phone Olamide Rodney MD Primary Care Provider Encounter Details Date Type Department Care Team Description 08/31/2010 PN Conversion Only [facility] [address], Dermatology [address] [address] [place], [place] [phone] (Wo rk) Social History Tobacco Use Types [...] on filedocumented in this encounter Care Teams Automation Engineering Technician Relationship Specialty Start Date End Date Olamide Rodney MD PCP - General 09/25/10 01/11/21 [address] [facility] [place] [address] documented as of this encounter
--- OUTSIDE RECORDS SUMMARY | 2022-02-08 14:28 | XMS_ITS | Encounter Summary ---
:1960 Author Organization [employer] Address [address] [place] [address] Care Team Providers Name Role Phone Shira Rodney MD Primary Care Provider Reason for Visit Reason Comments Other Encounter Details Date Type Department Care Team Description 09/06/2010 Telephone [facility] Malka Rodney MD Other Medicine [address] [place] [address] [place] [address] [phone] Social History Tobacco Use Types Packs/Day Years Used Date Smoking Tobacco: Never Alcohol Use Standard Drinks/Week Comments Yes 0 (1 standard drink = 0.6 oz pure alcoho l) mod Sex Assigned at Date Recorded Not on file documented as of this encounter [facility], Message - 09/06/2010 12:05 PM CDT Non -Symptom Message from Front Line Caller Name/Relationship:Paty Primary Sourcer:Ronel Message:Pt calling to see if Ronel received pts medical records from [facility] and would like to discuss some test results that came in regarding a mole. Please return call Marketing Project Specialist:Paty Best call back number:[phone] work or [phone] home Is it OK to leave a confidential message on this voicemail?yes on both *[id number] Created on 06Sep2010 12:05pm by GRISELDA FUENTES On 06Sep2010 3:27pm SHIRA RODNEY wrote: I called her. reviewed results of skin biopsy and uterine biopsy. see dr. chen on friday. reviewed CT abd/pelvis from 2008 at [facility] notes no mention of anything wrong in uterus. Acknowledged by SHIRA RODNEY on 3:27pm documented in this encounter Plan of Treatment Not on filedocumented as of this encounter Visit Diagnoses Not on filedocumented in this encounter Care Teams Actuarial Science Professor Relationship Specialty Start Date End Date Shira Rodney MD PCP - General 09/25/10 01/11/21 [address] [place] [address] documented as of this encounter
--- OUTSIDE RECORDS SUMMARY | 2022-02-08 14:28 | XMS_ITS | Encounter Summary ---
:1960 Author Organization [employer] Address [address], [place] [address] Care Team Providers Name Role Phone Olamide Rodney MD Primary Care Provider Encounter Details Date Type Department Care Team Description 01/22/2008 Office Visit [facility] [place] [address] [place] [address] Social History Tobacco Use Types [...] signed by Celestina Brewer MD at 01/22/08 0546 Author: Celestina Brewer MD Service: (none) Author Type: Physician Filed: 10/13/10 0546 Note Time: 01/22/08 0001 Status: Signed Registered Nursing Professor: Celestina Brewer MD (Physician) SUBJECTIVE: Ms. Stovall [...] on filedocumented in this encounter Care Teams Brickmason Supervisor Relationship Specialty Start Date End Date Olamide Rodney MD PCP - General 09/25/10 01/11/21 [address] [place] [address] documented as of this encounter
--- OUTSIDE RECORDS SUMMARY | 2022-02-08 14:28 | XMS_ITS | Encounter Summary ---
:1960 Author Organization [employer] Address [address] [place] [address] Care Team Providers Name Role Phone Olamide Rodney MD Primary Care Provider Encounter Details Date Type Department Care Team Description 10/29/2006 PN Conversion Only FONDA CONVERSIO Danni Xiong [address] [facility] [place] [address] [facility] [place] [address] (Wo rk) Social History Tobacco [...] Results Pap Smear (10/29/2006 1:47 PM CDT) [facility] Method Time Signature PAP Smear SEE TEXT No normal HP CONVERSION Liquid Based range Comment: Patient: PATY LLAMAS ? CERVICAL CYTOLOGY REPORT Pathology # ??[id number] ?Date Obtained: ? Date Received: CYTOLOGIC IMPRESSION: [...] CONVERSION ALT (SGPT) (10/29/2006 9:25 AM CDT) [facility] Method Time Signature Alanine 19 4 - 55 HP CONVERSION Aminotransferase U/L Specimen (Source) Anatomical Collection Method Collection Time Re ceived Time Location / / Volume Laterality 10/29/2006 9:25 AM CDT Danni Cramer MD LAB_1 Performing Organization Address City/[facility]/ZIP Code Phon e Number HP CONVERSION AST (10/29/2006 9:25 AM CDT) [facility] gist Method Time Signature Aspartate 27 0 - 45 HP CONVERSION Aminotransferase U/L Specimen (Source) Anatomical Collection Method Collection Time Re ceived Time Location / / Volume Laterality 10/29/2006 9:25 AM CDT Danni Cramer MD LAB_1 Performing Organization Address City/[facility] Code Phon e Number HP CONVERSION Glucose (10/29/2006 9:25 AM CDT) athologist Signature Length Of Fast 12.0 Hours HP CONVERSION Lab Glucose 89 60 - 100 HP CONVERSION mg/dL Specimen (Source) Anatomical Collection Method Collection Time Re ceived Time Location / / Volume Laterality 10/29/2006 9:25 AM CDT Danni Cramer MD LAB_1 Performing Organization Address City/[facility] Code Phon e Number HP CONVERSION (ABNORMAL) Lipid Panel and Direct LDL(If Needed) (10/29/2006 9:25 AM CDT) [facility] Method Time Signature Length Of Fast 12.0 [...] Danni Cramer MD LAB_1 Performing Organization Address City/[facility]/ZIP Code Phon e Number HP CONVERSION Ferritin (10/29/2006 9:25 AM CDT) athologist Signature Ferritin Serum 66 10 - 291 HP CONVERSION ng/mL Specimen (Source) Anatomical Collection Method Collection Time Re ceived Time Location / / Volume Laterality 10/29/2006 9:25 AM CDT Danni Cramer MD LAB_1 Performing Organization Address City/[facility] Code Phon e Number HP CONVERSION Thyroid Stimulating Hormone (10/29/2006 9:25 AM CDT) athologist Signature Thyroid 3.46 0.20 - HP CONVERSION Stimulating 4.50 Hormone uIU/mL Specimen (Source) Anatomical Collection Method Collection Time Re ceived Time Location / / Volume Laterality 10/29/2006 9:25 AM CDT Danni Cramer MD LAB_1 Performing Organization Address City/[facility] Code Phon e Number HP CONVERSION (ABNORMAL) Vit B12 & Folate (10/29/2006 9:25 AM CDT) Analysis Performed At [facility] logist Time Signature Vitamin B12 1,574 (H) 211 - 911 HP CONVERSION pg/mL Serum Folate >24.0 >6.1 ng/mL HP CONVERSION Specimen (Source) Anatomical Collection Method Collection Time Re ceived Time Location / / Volume Laterality 10/29/2006 9:25 AM CDT Danni Cramer MD LAB_1 Performing Organization Address City/[facility] Code Phon e Number HP [...] Danni Cramer MD LAB_1 Performing Organization Address City/[facility] Phon e Number HP CONVERSION documented in this encounter Visit Diagnoses Not on filedocumented in this encounter Care Teams Perioperative Tech Relationship Specialty Start Date End Date Olamide Rodney MD PCP - General 09/25/10 01/11/21 [address] [place] [address] documented as of this encounter
--- OUTSIDE RECORDS SUMMARY | 2022-02-08 14:28 | XMS_ITS | Encounter Summary ---
:1960 Author Organization [employer] Address [address] [place] [address] Care Team Providers Name Role Phone Olamide Rodney MD Primary Care Provider Reason for Visit Reason Comments Other Encounter Details Date Type Department Care Team Description 09/11/2010 Telephone [facility] [address] MD Other Dermatology [address] [place] [address] [place] [address] [phone] Social History Tobacco Use Types Packs/Day Years [...] on filedocumented in this encounter Care Teams Cork Cutter Relationship Specialty Start Date End Date Olamide Rodney MD PCP - General 09/25/10 01/11/21 [address] [place] [address] documented as of this encounter
--- OUTSIDE RECORDS SUMMARY | 2022-02-08 14:29 | XMS_ITS | Encounter Summary ---
:1960 Author Organization [employer] Address [address] [place] [address] Care Team Providers Name Role Phone Danielle Bender MD Primary Care Provider Reason for Visit Reason Onset Date Comments SURGERY, SURGICAL, TO SCHEDULE 07/04/2004 Encounter Details Date Type Department Care Team Description 07/04/2004 Telephone [place] Danielle Bender, SURGE RY, SURGICAL, TO Internal Medicine MD SCHEDULE [address] [facility] [address] [place] [address] [phone] (Wo rk) Social History Tobacco Use Types Packs/Day Years Used Date Smoking Tobacco: Never Alcohol Use Standard Drinks/Week Comments Yes 0 (1 standard drink = 0.6 oz pure alcoho l) mod Sex Assigned at Date Recorded Not on file documented as of this encounter Nursing Notes 07/04/2004 11:59 PM CLAY ARTISAN >> UVALDO GIBSON Wed Jul 04, 2004 [...] Primary documented in this encounter Care Teams Regional Property Manager Relationship Specialty Start Date End Date Danielle Bender MD PCP - General 04/09/01 08/07/10 [address] [place] [address] documented as of this encounter
--- OUTSIDE RECORDS SUMMARY | 2022-02-08 14:29 | XMS_ITS | Encounter Summary ---
:1960 Author Organization [employer] Address [address] [place] [address] Care Team Providers Name Role Phone Olamide Rodney MD Primary Care Provider Encounter Details Date Type Department Care Team Description 02/26/2006 Office Visit [facility] Nicole Monsalve PA-C [address] [place] [address] [place] [address] [phone] (Wo rk) Social History Tobacco Use Types [...] Hartley PA-C Service: (none) Author Type: Physician Railcar Switcher Filed: 10/12/10 7338 Note Time: 02/26/06 0001 Status: Signed Lawn Specialist: Nicole Hartley PA-C (Physician Railcar Switcher) Procedure Note: Skin Lesion Destruction IMPRESSION: Actinic [...] on filedocumented in this encounter Care Teams Feeder/Folder Relationship Specialty Start Date End Date Olamide Rodney MD PCP - General 09/25/10 01/11/21 [address] [place] [address] documented as of this encounter
--- OUTSIDE RECORDS SUMMARY | 2022-02-08 14:29 | XMS_ITS | Encounter Summary ---
:1960 Author Organization [facility] Address [address] [place] [address] Care Team Providers Name Role Phone Danielle Bender MD Primary Care Provider Reason for Referral Specialty Diagnoses / Procedures Referred By Contact Refer red To Contact [facility] [address] [address] Referral ID Status Reason Start Date Expiration Date Visits Requ ested Visits Authorized Specialty Diagnoses / Procedures Referred By Contact Refer red To Contact [facility] CASAREZ [address] [address] Referral ID Status Reason Start Date Expiration Date Visits Requ ested Visits Authorized Reason for Visit Reason Comments PE AND PAP Encounter Details Date Type Department Care Team Description 09/24/2004 Office Visit Danielle Zepeda, PREVE NTIVE CARE EXAM (Primary Dx); Internal Medicine B12 DEFIC ANEMIA NEC; [address] MOOD DISORDER NOS; [facility] [place] A STHMA, UNSPECIFIED; [address] SCREENING MAMM-MAILG NEOPL-OTHER [phone] (Wo rk) Social History Tobacco Use Types [...] 09/19/2004 8:24 AM Resu lts for this CLINICAL RESEARCH TECHNICIAN procedure are i n the results section. BODY FLUID CULTURE Routine 09/19/2004 8:24 AM CLINICAL RESEARCH TECHNICIAN VIT B12 & FOLATE Routine 09/19/2004 8:24 AM B12 Defic Anemia N ec Results for this CLINICAL RESEARCH TECHNICIAN procedure are i n the results section. LIPID PANEL, FAST > Routine 09/19/2004 8:24 AM Preventive Care Exam Results for this 12 HOUR CLINICAL RESEARCH TECHNICIAN procedure are i n the results section. FERRITIN Routine 09/19/2004 8:24 AM B12 Defic Anemia Nec R esults for this CLINICAL RESEARCH TECHNICIAN procedure are i n the results section. TSH, SENSITIVE Routine 09/19/2004 8:24 AM Preventive Care Exam Results for this (WITH REFLEX) CLINICAL RESEARCH TECHNICIAN procedure are in the results section. IRON PROFILE Routine 09/19/2004 8:24 AM Results f or this (IRON,TIBC,%SAT.(CA CLINICAL RESEARCH TECHNICIAN procedur e are in LC)) the results section. GLUCOSE - FASTING > Routine 09/19/2004 8:24 AM Preventive Care Exam Results for this 8 HRS FASTING CLINICAL RESEARCH TECHNICIAN procedure are in the results section. documented in this encounter Results PAP TEST, ROUTINE (09/24/2004 12:00 AM CDT) Component Value Ref Test Analysis Performed At [facility] Range Method Time Signature Cytology, Pap (NOTE) [facility] Cloth Shearing Supervisor Cytology Report Patient Name: PATY YEAGER Taken: 09/24/2004 Received: 09/27/2004 Reported: 10/08/2004 Physician(s): DANIELLE BENDER ([id number]) ?Source of Specimen Liquid routine Pap, cervical/endocervical: [...] Danielle Bender MD LAB_1 Performing Organization Address [facility]/ZIP Code Phon e Number [address] [address] [place], [place] [phone] (ABNORMAL) IRON, TIBC, % SAT. (CALC.) (09/19/2004 8:24 AM CLINICAL RESEARCH TECHNICIAN) Analysis Performed At Patho logist Time Signature Iron 70 40 - 180 [facility] mcg/dl TIBC, 398 250 - 450 [facility] Calculated mcg/dl % Saturation, 18 (L) 20 - 50 % [facility] calc. Specimen Anatomical Collection Method Collection Time Receive d Time (Source) Location / / Volume Laterality 09/19/2004 8:24 AM 5 9:09 CLINICAL RESEARCH TECHNICIAN AM CLINICAL RESEARCH TECHNICIAN Danielle Bender MD LAB_1 Performing Organization Address City/[facility]/ZIP Code Phon e Number [facility] [phone] [facility] [address] [place] [phone] HEMOGLOBIN, BLOOD (09/19/2004 8:24 AM CLINICAL RESEARCH TECHNICIAN) P athologist Signature Hemoglobin 13.5 12.0 - 16.0 [facility] g/dl Specimen Anatomical Collection Method Collection Time Receive d Time (Source) Location / / Volume Laterality 09/19/2004 8:24 AM 5 9:09 CLINICAL RESEARCH TECHNICIAN AM CLINICAL RESEARCH TECHNICIAN Danielle Bender MD LAB_1 Performing Organization Address City/[facility]/ZIP Code Phon e Number [email or web address] [phone] [facility] [address] [phone] COMMENTS (09/19/2004 8:24 AM CLINICAL RESEARCH TECHNICIAN) Specimen Anatomical Collection Method Collection Time Receive d Time (Source) Location / / Volume Laterality 09/19/2004 8:24 AM 5 9:09 CLINICAL RESEARCH TECHNICIAN AM CLINICAL RESEARCH TECHNICIAN Danielle Bender MD LAB_1 Performing Organization Address City/[facility] Phon e Number [facility] [phone] TSH, SENSITIVE (09/19/2004 8:24 AM CLINICAL RESEARCH TECHNICIAN) athologist Signature TSH 2.12 0.30 - 5.00 [facility] uIU/ml Thyroid Meds No [facility] Specimen Anatomical Collection Method Collection Time Receive d Time (Source) Location / / Volume Laterality 09/19/2004 8:24 AM 5 9:09 CLINICAL RESEARCH TECHNICIAN AM CLINICAL RESEARCH TECHNICIAN Danielle Bender MD LAB_1 Performing Organization Address City/[facility] Phon e Number [facility] [phone] [facility] [address] [place] [phone] CHOLESTEROL LIPID PANEL FAST >12HR FAST (09/19/2004 8:24 AM CLINICAL RESEARCH TECHNICIAN) athologist Signature Cholesterol 146 <200 mg/dl [facility] Triglyceride 68 <200 mg/dl [facility] HDL 61 >35 mg/dl [facility] LDL, Calc. 71 mg/dl [facility] Hours Fasting 13 hours [facility] Specimen Anatomical Collection Method Collection Time Receive d Time (Source) Location / / Volume Laterality 09/19/2004 8:24 AM 5 9:09 CLINICAL RESEARCH TECHNICIAN AM CLINICAL RESEARCH TECHNICIAN Danielle Bender MD LAB_1 Performing Organization Address City/[facility] Phon e Number [facility] [phone] [phone] GLUCOSE - FASTING > 8 HRS FASTING (V77.1) (09/19/2004 8:24 AM CLINICAL RESEARCH TECHNICIAN) athologist Signature Glucose 83 70 - 100 [facility] mg/dl Hours Fasting 13 hours [facility] Specimen Anatomical Collection Method Collection Time Receive d Time (Source) Location / / Volume Laterality 09/19/2004 8:24 AM 5 9:09 CLINICAL RESEARCH TECHNICIAN AM CLINICAL RESEARCH TECHNICIAN Danielle Bender MD LAB_1 Performing Organization Address City/[facility]/ZIP Code Phon e Number [facility] [phone] [facility] [address] [place] [phone] FERRITIN (09/19/2004 8:24 AM CLINICAL RESEARCH TECHNICIAN) athologist Signature Ferritin 17 10 - 151 [facility] ng/ml Specimen Anatomical Collection Method Collection Time Receive d Time (Source) Location / / Volume Laterality 09/19/2004 8:24 AM 5 9:09 CLINICAL RESEARCH TECHNICIAN AM CLINICAL RESEARCH TECHNICIAN Danielle Bender MD LAB_1 Performing Organization Address City/[facility] Phon e Number [email or web address] [phone] [facility] [address] [place] [phone] (ABNORMAL) VIT B12 & FOLATE (09/19/2004 8:24 AM CLINICAL RESEARCH TECHNICIAN) athologist Signature Vitamin B12 1450 (H) 211 - 911 [facility] pg/ml Folate >24.0 >3.0 ng/ml [facility] Specimen Anatomical Collection Method Collection Time Receive d Time (Source) Location / / Volume Laterality 09/19/2004 8:24 AM 5 9:09 CLINICAL RESEARCH TECHNICIAN AM CLINICAL RESEARCH TECHNICIAN Danielle Bender MD LAB_1 Performing Organization Address City/[facility] Phon e Number [email or web address] [phone] [facility] [address] [place] [phone] documented in this encounter Visit Diagnoses Diagnosis Routine general medical examination at [facility] facility - Primary Routine general medical examination at a health care facility Other vitamin B12 deficiency anemia Unspecified episodic mood disorder ([facility]) Unspecified episodic mood disorder Unspecified asthma(493.90) ([facility]) Unspecified asthma Other screening mammogram documented in this encounter Care Teams Diamond Cutter Relationship Specialty Start Date End Date Danielle Bender MD PCP - General 04/09/01 08/07/10 [address] [facility] [address] [place] [address] documented as of this encounter
--- OUTSIDE RECORDS SUMMARY | 2022-02-08 14:29 | XMS_ITS | Encounter Summary ---
:1960 Author Organization [facility] Address [address] [place] [address] Care Team Providers Name Role Phone Danielle Bender MD Primary Care Provider Encounter Details Date Type Department Care Team Description 11/13/2004 Correspondence [facility] Kodak Deleon Colonoscopy Gastroenterology Ramon Batres MD Informed Consent [address] [facility] [address] [place] [address] [place], [place] [phone] Social History Tobacco Use Types Packs/Day Years [...] on filedocumented in this encounter Care Teams Rivet Passer Relationship Specialty Start Date End Date Danielle Bender MD PCP - General 04/09/01 08/07/[address] [place] [address] documented as of this encounter
--- OUTSIDE RECORDS SUMMARY | 2022-02-08 14:29 | XMS_ITS | Encounter Summary ---
:1960 Author Organization [facility] Address [address] [place] [address] Care Team Providers Name Role Phone Danielle Bender MD Primary Care Provider Encounter Details Date Type Department Care Team Description [facility] Mammography II NEOPL-OTHER (Primary [address]) [place], [place] [address] Social History Tobacco Use Types [...] Primary documented in this encounter Care Teams See Wheeler Relationship Specialty Start Date End Date Danielle Bender MD PCP - General 04/09/01 08/07/[address] [place] [address] documented as of this encounter
--- OUTSIDE RECORDS SUMMARY | 2022-02-08 14:29 | XMS_ITS | Encounter Summary ---
:1960 Author Organization [employer] Address [address] [place] [address] Care Team Providers Name Role Phone Olamide Rodney MD Primary Care Provider Encounter Details Date Type Department Care Team Description 04/03/2005 Nursing Visit [facility] [place] [address] [facility] [address] [place] [address] [place], [place] [phone] Social History Tobacco Use Types Packs/Day Years Used Date Smoking Tobacco: Never Alcohol Use Standard Drinks/Week Comments Yes 0 (1 standard drink = 0.6 oz pure alcoho l) mod Sex Assigned at Date Recorded Not on file documented as of this encounter Plan of Treatment Not on filedocumented as of this encounter Visit Diagnoses Not on filedocumented in this encounter Care Teams Etcher Aircraft Relationship Specialty Start Date End Date Olamide Rodney MD PCP - General 09/25/10 01/11/21 [address] [place], [place] [address] documented as of this encounter
--- OUTSIDE RECORDS SUMMARY | 2022-02-08 14:29 | XMS_ITS | Encounter Summary ---
:1960 Author Organization [employer] Address [address] [place] [address] Care Team Providers Name Role Phone Danielle Bender MD Primary Care Provider Reason for Visit Reason Onset Date Comments LETTER NEEDED 07/31/2004 Encounter Details Date Type Department Care Team Description 07/31/2004 Telephone [place] [facility] Danielle Bender MD LETTER NEEDED Medicine 1430 [facility] [address] [facility] [address] [place] [address] [phone] (Wo rk) Social History Tobacco Use Types Packs/Day Years Used Date Smoking Tobacco: Never Alcohol Use Standard Drinks/Week Comments Yes 0 (1 standard drink = 0.6 oz pure alcoho l) mod Sex Assigned at Date Recorded Not on file documented as of this encounter Nursing Notes 07/31/2004 11:59 PM MANAGER ENVIRONMENTAL >> DORIS JOYCE FriAug 06, 2004 10:03 AM paty will be in todday to tile picker her letter at the front office director Doris Joyce LPN >> DORIS JYOCE FriAug 06, 2004 9:39 AM message to [...] on filedocumented in this encounter Care Teams Wrapper Layer Relationship Specialty Start Date End Date Danielle Bender MD PCP - General 04/09/01 08/07/[address] [place] [address] documented as of this encounter
--- OUTSIDE RECORDS SUMMARY | 2022-02-08 14:29 | XMS_ITS | Encounter Summary ---
:1960 Author Organization [employer] Address [address] [place] [address] Care Team Providers Name Role Phone Olamide Rodney MD Primary Care Provider Encounter Details Date Type Department Care Team Description 01/19/2006 Office Visit [facility] [place] [address] [place] [address] Social History Tobacco [...] signed by Leny Soto MD at 02/11/06 1057 Author: Leny Soto MD Service: (none) Author Type: Physician Filed: 10/12/10 1303 Note Time: 01/19/06 0001 Status: Signed Roll Mechanic: Leny Soto MD (Physician) NAME: PATY LLAMAS MR: [id number] ACCT: [id number] VISIT: [id number] DICTATING CLINICIAN: LENY SOTO MD JOB: [id number] LOC: 520 CLINIC PROGRESS NOTE DATE OF [...] rash covered. Will follow up as needed. SMO:[id number] C: 01/21/06 04:07 DOCUMENT: [id number] documented in this encounter Plan of Treatment Not on filedocumented as of this encounter Visit Diagnoses Not on filedocumented in this encounter Care Teams Occupational Health Physician Relationship Specialty Start Date End Date Olamide Rodney MD PCP - General 09/25/10 01/11/21 [address] [place] [address] documented as of this encounter
--- OUTSIDE RECORDS SUMMARY | 2022-02-08 14:29 | XMS_ITS | Encounter Summary ---
:1960 Author Organization [employer] Address [address] [place] [address] Care Team Providers Name Role Phone Danielle Bender MD Primary Care Provider Reason for Visit Reason Comments Other teaching self-injection Encounter Details Date Type Department Care Team Description 07/04/2004 Office Visit [facility] Department ANTICOAG USE (Primary Dx) [address] [place] [address] Social History Tobacco Use Types Packs/Day Years Used Date Smoking Tobacco: Never Alcohol Use Standard Drinks/Week Comments Yes 0 (1 standard drink = 0.6 oz pure alcoho l) mod Sex Assigned at Date Recorded Not on file documented as of this encounter Progress Notes 07/04/2004 2:30 PM ARTIST SUSPECT Pt. into clinic. Instructed in self-injection of lovenox. Given pt. instruction kit. Will start lovenox 30mg qd x 2 weeks starting on Sat. and then resume asa. Radha Soto RN documented in this encounter Plan of Treatment Not on filedocumented as of this encounter Visit Diagnoses Diagnosis skilled nursing (current) use of anticoagulant s - Primary Long-term (current) use of anticoagulant s documented in this encounter Care Teams Brim Greaser Operator Relationship Specialty Start Date End Date Danielle Bender MD PCP - General 04/09/01 08/07/10 [address] [place] [address] documented as of this encounter
--- OUTSIDE RECORDS SUMMARY | 2022-02-08 14:29 | XMS_ITS | Encounter Summary ---
:1960 Author Organization [employer] Address [address] [place] [address] Care Team Providers Name Role Phone Danielle Bender MD Primary Care Provider Encounter Details Date Type Department Care Team Description 10/02/2005 Correspondence External to External, [place] [address] Social History Tobacco Use Types Packs/Day Years [...] filedocumented in this encounter Care Teams Financial Brokers Relationship Specialty Start Date End Date Danielle Bender MD PCP - General 04/09/01 08/07/[address] [place] [address] documented as of this encounter
--- OUTSIDE RECORDS SUMMARY | 2022-02-08 14:29 | XMS_ITS | Encounter Summary ---
:1960 Author Organization [facility] Address [address] [place] [address] Care Team Providers Name Role Phone Danielle Bender MD Primary Care Provider Encounter Details Date Type Department Care Team Description 11/13/2004 Office Visit [facility] KENIA Deleon OF Gastroenterology Ramon Batres MD COLON W/O BLEED [address] [facility] [address] [place] [address] [place], [place] [phone] [address] Social History Tobacco Use Types Packs/Day Years [...] hemorrhage) documented in this encounter Care Teams Dispatcher Ship Pilot Relationship Specialty Start Date End Date Danielle Bender MD PCP - General 04/09/01 08/07/[address] [place] [address] documented as of this encounter
--- OUTSIDE RECORDS SUMMARY | 2022-02-08 14:29 | XMS_ITS | Encounter Summary ---
:1960 Author Organization [facility] Address [address] [place] [address] Care Team Providers Name Role Phone Danielle Bender MD Primary Care Provider Encounter Details Date Type Department Care Team Description 10/07/2005 Office Visit External to Unknown, Physici an [address] [place], [place] [address] (Wo rk) Social History Tobacco Use Types [...] on filedocumented in this encounter Care Teams Learning Disabilities Specialist Relationship Specialty Start Date End Date Danielle Bender MD PCP - General 04/09/01 08/07/10 1430 [facility] [address] [place] [address] documented as of this encounter
--- OUTSIDE RECORDS SUMMARY | 2022-02-08 14:29 | XMS_ITS | Encounter Summary ---
:1960 Author Organization [employer] Address [address] [place] [address] Care Team Providers Name Role Phone Olamide Rodney MD Primary Care Provider Encounter Details Date Type Department Care Team Description 10/02/2005 Office Visit [place] [facility] Olivia Gilmore MD Medicine 8401 [facility] [address] [address] [place], [place] [phone] (Wo rk) Social History Tobacco Use Types [...] 10/12/10 1050 Note Time: 10/02/052020 Status: Signed Dinkey Locomotive Engineer: Tapan Gilmore MD (Physician) NAME: PATY LLAMAS MR: [id number] ACCT: [id number] VISIT: [id number] DICTATING CLINICIAN: CORNELIUS GILMORE MD JOB: [id number] CLINIC PROGRESS NOTE DATE OF VISIT: 10/02/2005 [...] Nonsmoker. Social drink. 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 No children. Has [...] Patient will be given pneumonia vaccine today. ZXL:[id number] C: 10/02/05 16:58 DOCUMENT: [id number] documented in this encounter Plan of Treatment Not on filedocumented as of this encounter Visit Diagnoses Not on filedocumented in this encounter Care Teams Fur Dry Cleaner Relationship Specialty Start Date End Date Olamide Rodney MD PCP - General 09/25/10 01/11/21 [address] [place] [address] documented as of this encounter
--- OUTSIDE RECORDS SUMMARY | 2022-02-08 14:29 | XMS_ITS | Encounter Summary ---
:1960 Author Organization [employer] Address [address] [place] [address] Care Team Providers Name Role Phone Danielle Bender MD Primary Care Provider Reason for Visit Reason Onset Date Comments FYI 07/05/2004 Encounter Details Date Type Department Care Team Description 07/05/2004 Telephone [place] [facility] Danielle Bender MD FYI Medicine 1430 [facility] [address] [address] [place] [address] [phone] Social History Tobacco Use Types Packs/Day Years Used Date Smoking Tobacco: Never Alcohol Use Standard Drinks/Week Comments Yes 0 (1 standard drink = 0.6 oz pure alcoho l) mod Sex Assigned at Date Recorded Not on file documented as of this encounter Nursing Notes 07/05/2004 11:59 PM INVESTMENT CONSULTANT >> DANIELLE BENDER Komal Jul 05, 2004 3:33 PM okay. Danielle Bender MD >> OLGA JESUS [facility] Jul 05, 2004 3:26 PM Nurse calling to let you know that patient's surgery was cancelled and rescheduled to 07-09-04. Dr. Mckenna ws out ill today, so unable to do surgery. Patient will start Lovenox shots on 06-23. Olga Jesus documented in this encounter Plan of Treatment Not on filedocumented as of this encounter Visit Diagnoses Not on filedocumented in this encounter Care Teams Management Lead Relationship Specialty Start Date End Date Danielle Bender MD PCP - General 04/09/01 08/07/10 1430 [facility] [address] [place] [address] documented as of this encounter
--- OUTSIDE RECORDS SUMMARY | 2022-02-08 14:29 | XMS_ITS | Encounter Summary ---
:1960 Author Organization [employer] Address [address] [place] [address] Care Team Providers Name Role Phone Olamide Rodney MD Primary Care Provider Encounter Details Date Type Department Care Team Description 10/02/2005 PN Conversion Only [place] [address] [place] [address] [address] [place] [address] (Wo rk) Social History Tobacco Use Types [...] Complete Blood Count-W/Diff (10/02/2005 9:50 AM CDT) [facility] gist Method Time Signature White Blood [...] - HP CONVERSION Hemoglobin Conc 36.5 gm/dL Ixl RDW 13.2 11.0 - HP CONVERSION 15.0 [...] CONVERSION ALT (SGPT) (10/02/2005 9:50 AM CDT) [facility] gist Method Time Signature Alanine 30 0 - 65 HP CONVERSION Aminotransferase U/L Specimen (Source) Anatomical Collection Method Collection Time Re ceived Time Location / / Volume Laterality 10/02/2005 9:50 AM CDT Kwan Gilmore MD LAB_1 Performing Organization Address City/[facility]/ZIP Code Phon e Number HP CONVERSION AST (10/02/2005 9:50 AM CDT) [facility] Method Time Signature Aspartate 20 0 [...] Kwan Gilmore MD LAB_1 Performing Organization Address City/[facility]/ZIP Code Phon e Number HP CONVERSION Electrolytes [...] Kwan Gilmore MD LAB_1 Performing Organization Address City/[facility]/ZIP Code Phon e Number HP CONVERSION (ABNORMAL) Lipid Panel and Direct LDL(If Needed) (10/02/2005 9:50 AM CDT) [facility] Method Time Signature Cholesterol/HDL 2.3 No [...] Kwan Gilmore MD LAB_1 Performing Organization Address City/[facility]/ZIP Code Phon e Number HP CONVERSION Ferritin [...] Kwan Gilmore MD LAB_1 Performing Organization Address City/[facility]/ZIP Code Phon e Number HP CONVERSION Thyroid Stimulating Hormone (10/02/2005 9:50 AM CDT) athologist Signature Thyroid 2.06 0.20 - HP CONVERSION Stimulating 4.50 Hormone uIU/mL Specimen (Source) Anatomical Collection Method Collection Time Re ceived Time Location / / Volume Laterality 10/02/2005 9:50 AM CDT Kwan Gilmore MD LAB_1 Performing Organization Address City/[facility] Code Phon e Number HP CONVERSION Vitamin B12 Only (10/02/2005 9:50 AM CDT) athologist Signature Vitamin B12 906 211 - 911 HP CONVERSION pg/mL Specimen (Source) Anatomical Collection Method Collection Time Re ceived Time Location / / Volume Laterality 10/02/2005 9:50 AM CDT Kwan Gilmore MD LAB_1 Performing Organization Address City/[facility] Code Phon e Number HP [...] Kwan Gilmore MD LAB_1 Performing Organization Address City/[facility]/ZIP Code Phon e Number HP CONVERSION Urinalysis Routine(Micro If Pos) (10/02/2005 9:38 AM CDT) [facility] gist Method Time Signature Turbidity Clear No [...] Specific 1.015 1.005 - 25 HP CONVERSION [place] Specimen (Source) Anatomical Collection Method Collection Time Re ceived Time Location / / Volume Laterality 10/02/2005 9:38 AM CDT Kwan Gilmore MD LAB_1 Performing Organization Address City/State/ZIP Code Phon e Number HP CONVERSION Pap Smear (10/02/2005 8:30 AM CDT) [facility] Method Time Signature PAP Smear SEE TEXT No normal HP CONVERSION Liquid Based range Comment: Patient: PATY LLAMAS ? CERVICAL CYTOLOGY REPORT Pathology # ??[id number] ?Date Obtained: [id number] ? Date Received: [id number] CYTOLOGIC IMPRESSION: Negative for intraepithelial lesion or [...] on filedocumented in this encounter Care Teams Garbage Pick Up Worker Relationship Specialty Start Date End Date Olamide Rodney MD PCP - General 09/25/10 01/11/21 [address] [place] [address] documented as of this encounter
--- OUTSIDE RECORDS SUMMARY | 2022-02-08 14:29 | XMS_ITS | Encounter Summary ---
:1960 Author Organization [employer] Address [address] [place] [address] Care Team Providers Name Role Phone Olamide Rodney MD Primary Care Provider Encounter Details Date Type Department Care Team Description 10/07/2005 PN Conversion Only [facility] [address] [place] [address] Social History Tobacco Use Types Packs/Day Years [...] to outside films from 09/15/2003 (bilateral - [facility]). ??There is no significant interval change. Bilateral Breast Findings: The breasts are heterogeneously dense. T his may lower the sensitivity of mammography. ??No significant masses, calcifications or other abnormalities are seen. Procedure Note Shaila Herrera - 08/29/2016 Comparison is made to outside films from 09/15/2003 (bilateral - [facility]). There i s no significant interval change. [...] on filedocumented in this encounter Care Teams Environmental Services Tech Relationship Specialty Start Date End Date Olamide Rodney MD PCP - General 09/25/10 01/11/21 [address] [place] [address] documented as of this encounter
--- OUTSIDE RECORDS SUMMARY | 2022-02-08 14:29 | XMS_ITS | Encounter Summary ---
:1960 Author Organization [employer] Address [address] [place] [address] Care Team Providers Name Role Phone Danielle Bender MD Primary Care Provider Encounter Details Date Type Department Care Team Description 06/28/2004 Orders Only [place] [facility] Unknown , Physician Medicine [address] [address] [place] [address] [phone] Social History Tobacco Use Types Packs/Day Years Used Date Smoking Tobacco: Never Alcohol Use Standard Drinks/Week Comments Yes 0 (1 standard drink = 0.6 oz pure alcoho l) mod Sex Assigned at Date Recorded Not on file documented as of this encounter Procedure Notes Danielle Bender - 06/28/2004 12:00 AM CSTAssociated Order(s): EKG ERENCE PRODUCER documented in this encounter Plan of Treatment Not on filedocumented as of this encounter Procedures Procedure Name Priority Date/Time Associated Diagnosis Comme nts EKG 06/28/2004 12:00 AM Results for this CONFERENCE PRODUCER procedure are i n the results section . documented in this encounter Results EKG (06/28/2004 12:00 AM CONFERENCE PRODUCER) Narrative 06/28/2004 12:00 AM CONFERENCE PRODUCER This result has an attachment that is no t available. Ordered by an unspecified provider. Transcriptions Danielle Bender - 06/28/2004 12:00 AM CONFERENCE PRODUCER Physician Unknown EKG documented in this encounter Visit Diagnoses Not on filedocumented in this encounter Care Teams School Lunch Manager Relationship Specialty Start Date End Date Danielle Bender MD PCP - General 04/09/01 08/07/10 [address] [place] [address] documented as of this encounter
--- OUTSIDE RECORDS SUMMARY | 2022-02-08 14:29 | XMS_ITS | Encounter Summary ---
:1960 Author Organization [employer] Address [address] [place] [address] Care Team Providers Name Role Phone Olamide Rodney MD Primary Care Provider Encounter Details Date Type Department Care Team Description 03/29/2005 PN Conversion Only [facility] [address] [address] [place] [address] Social History Tobacco Use Types Packs/Day Years Used Date Smoking Tobacco: Never Alcohol Use Standard Drinks/Week Comments Yes 0 (1 standard drink = 0.6 oz pure alcoho l) mod Sex Assigned at Date Recorded Not on file documented as of this encounter Plan of Treatment Not on filedocumented as of this encounter Visit Diagnoses Not on filedocumented in this encounter Care Teams Transit Man Relationship Specialty Start Date End Date Olamide Rodney MD PCP - General 09/25/10 01/11/21 [address] [place], [place] [address] documented as of this encounter
--- OUTSIDE RECORDS SUMMARY | 2022-02-08 14:29 | XMS_ITS | Encounter Summary ---
:1960 Author Organization [employer] Address [address] [place] [address] Care Team Providers Name Role Phone Danielle Bender MD Primary Care Provider Encounter Details Date Type Department Care Team Description 07/09/2004 Hospital Reid Mckenna MD [address] [place], [place] [address] (Wo rk) Social History Tobacco Use Types Packs/Day Years Used Date Smoking Tobacco: Never Alcohol Use Standard Drinks/Week Comments Yes 0 (1 standard drink = 0.6 oz pure alcoho l) mod Sex Assigned at Date Recorded Not on file documented as of this encounter Procedure Notes Reid Mckenna - 07/09/2004 12:00 AM MANAGER QA DATE OF SURGERY: 07/09/2004 STAFF SURGEON: Reid [...] the imbrication which was done with interrupted uzzibd-ry-gqrrr sutures of #1 Ticron. This had been [...] Mckenna MD Transcribed: 07/10/2004 14:22:37 Doc #: [id number] cc: Danielle Bender MD, Referring DO NOT SIGN UNLESS PRESENT FOR PROCEDURE I attest that I was present for and participated in the tilley portions of this procedure(s) in compliance with the Health Care Financing Administration Teaching Physician Guidelines. Signed Date Regions Staff Physician 1 Page 1 Patient Name: PATY YEAGER Visit Date: 07/09/2004 OUTPATIENT OPERATIVE REPORT CONFIDENTIAL MEDICAL RECORD [address] [address] Page 1 Patient: PATY YEAGER Location: [facility] HPN: [id number] Date of : 1960 Visit Date: 07/09/2004 OUTPATIENT OPERATIVE REPORT GER QA documented in this encounter Plan of Treatment Not on filedocumented as of this encounter Visit Diagnoses Not on filedocumented in this encounter Care Teams Robotic Welder Relationship Specialty Start Date End Date Danielle Bender MD PCP - General 04/09/01 08/07/10 1430 [facility] [address] [place] [address] documented as of this encounter
--- OUTSIDE RECORDS SUMMARY | 2022-02-08 14:30 | XMS_ITS | Encounter Summary ---
:1960 Author Organization [employer] Address [address] [place] [address] Care Team Providers Name Role Phone Danielle Bender MD Primary Care Provider Encounter Details Date Type Department Care Team Description 07/01/2002 Orders Only [place] [facility] Danielle Linares MD [facility] [address] [place] [address] [place], [place] [phone] (Wo rk) Social History Tobacco Use Types Packs/Day Years Used Date Smoking Tobacco: Never Assessed Sex Assigned at Date Recorded Not on file documented as of this encounter Plan of Treatment Not on filedocumented as of this encounter Procedures Procedure Name Priority Date/Time Associated Diagnosis Comme nts PAP TEST, ROUTINE Routine 07/01/2002 12:00 AM Res ults for this PREVENTIVE MEDICINE OFFICER procedure are i n the results section. documented in this encounter Results PAP SMEAR, ROUTINE (07/01/2002 12:00 AM PREVENTIVE MEDICINE OFFICER) [facility] Method Time Signature Cytology, Pap (NOTE) [facility]IONS Cake Press Operator Cytology Report Patient Name: PATY YEAGER Taken: 07/01/02 Received: 07/05/02 Reported: 07/07/02 Physician(s): DANIELLE BENDER ([id number]) ? [id number] Final Cytologic Diagnosis Cervical Endocervical,routine: ? Satisfactory [...] Volume Laterality 07/01/2002 07/05/2002 12:5 2 PM PREVENTIVE MEDICINE OFFICER Danielle Bender MD LAB_1 Performing Organization Address City/State/ZIP Code Phon e Number [address] [address] [place], [place] [phone] documented in this encounter Visit Diagnoses Not on filedocumented in this encounter Care Teams Gold Letterer Relationship Specialty Start Date End Date Danielle Bender MD PCP - General 04/09/01 08/07/[address] [place] [address] documented as of this encounter
--- OUTSIDE RECORDS SUMMARY | 2022-02-08 14:30 | XMS_ITS | Encounter Summary ---
:1960 Author Organization [employer] Address [address] [place] [address] Care Team Providers Name Role Phone Danielle Bender MD Primary Care Provider Encounter Details Date Type Department Care Team Description 06/12/2002 [facility] [place] [facility] Rajeev Cho, RX REF [facility] MD [address] [place] [address] Social History Tobacco Use Types Packs/Day Years Used Date Smoking Tobacco: Never Assessed Sex Assigned at Date Recorded Not on file documented as of this encounter Progress Notes Jailene Cho - 06/12/2002 12:00 AM INFORMATION DELIVERY ANALYST RMATION DELIVERY ANALYST documented in this encounter Plan of Treatment Not on filedocumented as of this encounter Visit Diagnoses Not on filedocumented in this encounter Care Teams Communications Professional Relationship Specialty Start Date End Date Danielle Bender MD PCP - General 04/09/01 08/07/10 1430 [facility] [address] [place] [address] documented as of this encounter
--- OUTSIDE RECORDS SUMMARY | 2022-02-08 14:30 | XMS_ITS | Encounter Summary ---
:1960 Author Organization [employer] Address [address] [place] [address] Care Team Providers Name Role Phone Danielle Bender MD Primary Care Provider Encounter Details Date Type Department Care Team Description 09/05/[address] [facility] Danielle Bender, PREVE NTIVE CARE EXAM; Internal Medicine SCREENING MAL NEOP-CERVIX [facility] [facility] [address] [place] [address] [phone] (Wo rk) Social History Tobacco Use Types Packs/Day Years Used Date Smoking Tobacco: Never Alcohol Use Standard Drinks/Week Comments Yes 0 (1 standard drink = 0.6 oz pure alcoho l) mod Sex Assigned at Date Recorded Not on file documented as of this encounter Last Filed Vital Signs Vital Sign Reading Time Taken Comments Blood Pressure 102/60 09/05/2003 8:00 AM SIEBEL ADMINISTRATOR Pulse 64 09/05/2003 8:00 AM SIEBEL ADMINISTRATOR Temperature - - Respiratory Rate - - Oxygen Saturation - - Inhaled Oxygen Concentration - - Weight 88.9 kg (196 lb) 09/05/2003 8:00 AM SIEBEL ADMINISTRATOR Height 165.1 cm (5' 5) 09/05/2003 8:00 AM SIEBEL ADMINISTRATOR Body Mass Index 32.62 09/05/2003 8:00 AM SIEBEL ADMINISTRATOR documented in this encounter Progress Notes 09/05/2003 8:00 AM SIEBEL ADMINISTRATOR Paty Watts is here today for pap [...] Tobacco Status reviewed? (see History: Social-Substance) -YES hopper attendant offered? -NOT APPLICABLE. Aspirin taken daily? - YES Health Education given? -NO. patient's phone number [phone] (home) [phone] (work) Arminda Khanna LPN 09/05/2003 7:59 AM [...] follow up as needed. 12:51 P cc: EL ADMINISTRATOR documented in this encounter Plan of Treatment Not on filedocumented as of this encounter Visit Diagnoses Diagnosis Routine general medical examination at [facility] facility Routine general medical [facility] at [facility] Screening for malignant neoplasm of the cervix documented in this encounter Care Teams Geothermal Plant Manager Relationship Specialty Start Date End Date Danielle Bender MD PCP - General 04/09/01 08/07/[address] [place] [address] documented as of this encounter
--- OUTSIDE RECORDS SUMMARY | 2022-02-08 14:30 | XMS_ITS | Encounter Summary ---
:1960 Author Organization [facility] Address [address] [place] [address] Care Team Providers Name Role Phone Danielle Bender MD Primary Care Provider Encounter Details Date Type Department Care Team Description 11/01/2002 Orders Only External to Unknown, Physici an [address] [place] [address] (Wo rk) Social History Tobacco Use Types [...] on filedocumented in this encounter Care Teams Discharging Machine Operator Relationship Specialty Start Date End Date Danielle Bender MD PCP - General 04/09/01 08/07/10 1430 ON LICENSE OF [facility] [address] [place] [address] documented as of this encounter
--- OUTSIDE RECORDS SUMMARY | 2022-02-08 14:30 | XMS_ITS | Encounter Summary ---
:1960 Author Organization [employer] Address [address] [place] [address] Care Team Providers Name Role Phone Danielle Bender MD Primary Care Provider Encounter Details Date Type Department Care Team Description 02/04/2002 Office Visit [place] Danielle Bender OBESITY NOS; Internal Medicine MD [place] THROMBOPHLEBITIS LEG NOS 1430 [facility] [address] [facility], [address] [place] [address] [phone] Social History Tobacco Use Types Packs/Day Years [...] on control pills and her factor V [place] test did come up positive. She recently was stopped off of the coumadin. Her ultrasound of her leg had showed that there was resolution of the clot. She said that according to Dr. Chirinos's note they had wanted to do a protein REIMBURSEMENT AUDITOR but wasn't' about to do that because [...] get hemoglobin A1c rechecked. Also check protein REIMBURSEMENT AUDITOR. 2. She complained of some left-sided heel [...] unspecified documented in this encounter Care Teams Convertible Power Shovel Operator Relationship Specialty Start Date End Date Danielle Bender MD PCP - General 04/09/01 08/07/10 1430 [facility] [address] [place] [address] documented as of this encounter
--- OUTSIDE RECORDS SUMMARY | 2022-02-08 14:30 | XMS_ITS | Encounter Summary ---
:1960 Author Organization [employer] Address [address], [place] [address] Care Team Providers Name Role Phone Danielle Bender MD Primary Care Provider Encounter Details Date Type Department Care Team Description 09/27/2002 Office Visit [place] Danielle Bender, PREOP EXAM OTHER Internal Medicine MD SPECIFIED [address] [place] [address] [address] [place] [address] [phone] (Wo rk) Social History Tobacco Use Types [...] [facility]. ,the information documented from their last [...] bypass surgery done by Dr. Crowley at [facility] on Friday. Please see the H P [...] n documented in this encounter Care Teams Hotel Dining Room Cashier Relationship Specialty Start Date End Date Danielle Bender MD PCP - General 04/09/01 08/07/[address] [place] [address] documented as of this encounter
--- OUTSIDE RECORDS SUMMARY | 2022-02-08 14:30 | XMS_ITS | Encounter Summary ---
:1960 Author Organization [facility] Address [address] [place] [address] Care Team Providers Name Role Phone Danielle Bender MD Primary Care Provider Encounter Details Date Type Department Care Team Description 09/27/2002 Orders Only [place] [facility] Danielle Linares MD [facility]0 [facility] [address] [facility] [address] [place] [address] [place], [place] [phone] (Wo rk) Social History Tobacco Use Types [...] Organization Address City/State/ZIP Code Phon e Number [facility] [phone] [facility] [address] [address] (ABNORMAL) HEMOGRAM/PLTS/DIFF (09/27/2002 4:05 PM CDT) [facility] Method Time Signature WBC 10.0 3.6 - [facility] 11.0 k/ul WBC Pre-Op [facility] [id number] RBC 4.42 4.0 - 5.2 [facility] M/ul Hemoglobin 13.3 12.0 - [facility] 16.0 g/dl HCT 39.3 36.0 - [facility] 46.0 % MCV 88.9 80 - 100 [facility] fl MCH 30.0 26 - 34 [facility] pg MCHC 33.8 32 - 36 % [facility] RDW 14.8 (H) 11.5 - [facility] 14.5 % Platelets 295 150 - 450 [facility] k/ul PMN/Band 57 43 - 72 % [facility] Lymph 33 17 - 43 % [facility] [place] 7 4 - 12 % [facility] Eos 2 0 - 8 % [facility] Baso 1 0 - 1 % [facility] Neutrophil 5.7 1.8 - 7.7 [facility] Absolute k/ul Lymph Absolute 3.3 1.0 - 4.8 [facility] k/ul [place] Absolute 0.7 0.1 - 0.7 [facility] k/ul Eos Absolute 0.2 0.0 - 0.5 [facility] k/ul Baso Absolute 0.1 0.0 - 0.2 [facility] k/ul Specimen Anatomical Collection Method Collection Time Receive d Time (Source) Location / / Volume Laterality 09/27/2002 4:05 PM 3 4:06 CDT PM CDT Danielle Bender MD LAB_1 Performing Organization Address City/[facility]/ZIP Code Phon e Number [facility] [phone] [facility] [address] [address] documented in this encounter Visit Diagnoses Not on filedocumented in this encounter Care Teams Vp Product Relationship Specialty Start Date End Date Danielle Bender MD PCP - General 04/09/01 08/07/[address] [place] [address] documented as of this encounter
--- OUTSIDE RECORDS SUMMARY | 2022-02-08 14:30 | XMS_ITS | Encounter Summary ---
:1960 Author Organization [facility] Address [address] [place] [address] Care Team Providers Name Role Phone Danielle Bender MD Primary Care Provider Encounter Details Date Type Department Care Team Description 06/12/2002 Correspondence [place] [facility] Rajeev Cho, RX REF [place] [facility] MD [address] [place] [address] Social History Tobacco Use Types Packs/Day Years Used Date Smoking Tobacco: Never Assessed Sex Assigned at Date Recorded Not on file documented as of this encounter Progress Notes Jailene Cho - 06/12/2002 12:00 AM [facility] documented in this encounter Plan of Treatment Not on filedocumented as of this encounter Visit Diagnoses Not on filedocumented in this encounter Care Teams Rehabilitation Specialist Relationship Specialty Start Date End Date Danielle Bender MD PCP - General 04/09/01 08/07/10 1430 [facility] [address] [place] [address] documented as of this encounter
--- OUTSIDE RECORDS SUMMARY | 2022-02-08 14:30 | XMS_ITS | Encounter Summary ---
:1960 Author Organization [facility] Address [address] [place] [address] Care Team Providers Name Role Phone Danielle Bender MD Primary Care Provider Encounter Details Date Type Department Care Team Description 07/22/2002 Office Visit [facility] Mammogram I, Sp S CREENING MAMM- MAILG NEOPL-OTHER; Mammography PERS [facility] [address] [place] [address] Social History Tobacco Use Types Packs/Day Years [...] health documented in this encounter Care Teams Instrument Lens Grinder Relationship Specialty Start Date End Date Danielle Bender MD PCP - General 04/09/01 08/07/[address] [place] [address] documented as of this encounter
--- OUTSIDE RECORDS SUMMARY | 2022-02-08 14:30 | XMS_ITS | Encounter Summary ---
:1960 Author Organization [facility] Address [address] [place] [address] Care Team Providers Name Role Phone Danielle Bender MD Primary Care Provider Encounter Details Date Type Department Care Team Description 09/15/2003 Office Visit [facility] Mammogram, SCREEN ING MAMM-MAILG [facility] II NEOPL-OTHER (Primary [address]) [place], [place] [address] Social History Tobacco Use Types [...] 10:40 A cc: Radiology Danielle Bender MD RAL ASSIGNMENT REPORTER documented in this encounter Plan of Treatment [...] Primary documented in this encounter Care Teams Quality Controller Relationship Specialty Start Date End Date Danielle Bender MD PCP - General 04/09/01 08/07/[address] [place] [address] documented as of this encounter
--- OUTSIDE RECORDS SUMMARY | 2022-02-08 14:30 | XMS_ITS | Encounter Summary ---
:1960 Author Organization [facility] Address [address] [place] [address] Care Team Providers Name Role Phone Danielle Bender MD Primary Care Provider Encounter Details Date Type Department Care Team Description 09/08/2003 Correspondence [place] [facility] Danielle Bender MD [facility] Medicine [address] [place] [address] [phone] (Wo rk) Social History Tobacco Use Types Packs/Day Years Used Date Smoking Tobacco: Never Alcohol Use Standard Drinks/Week Comments Yes 0 (1 standard drink = 0.6 oz pure alcoho l) mod Sex Assigned at Date Recorded Not on file documented as of this encounter Progress Notes Danielle Bender - 09/08/2003 12:00 AM DAIRY CATTLE FARM MANAGER Y CATTLE FARM MANAGER documented in this encounter Plan of Treatment Not on filedocumented as of this encounter Visit Diagnoses Not on filedocumented in this encounter Care Teams Pulp Operator Relationship Specialty Start Date End Date Danielle Bender MD PCP - General 04/09/01 08/07/[address] [place] [address] documented as of this encounter
--- OUTSIDE RECORDS SUMMARY | 2022-02-08 14:30 | XMS_ITS | Encounter Summary ---
:1960 Author Organization [employer] Address [address] [place] [address] Care Team Providers Name Role Phone Danielle Bender MD Primary Care Provider Encounter Details Date Type Department Care Team Description 03/25/2003 Orders Only Jardine Labo Danielle Linares MD [facility] [address] [place] [address] [place], [place] [phone] (Wo rk) Social History Tobacco Use Types [...] Hgb A1c 5.0 4.3 - 6.1 % [facility] Specimen Anatomical Collection Method Collection Time Receive d Time (Source) Location / / Volume Laterality 03/25/2003 8:44 AM 3 8:45 CDT AM CDT Danielle Bender MD LAB_1 Performing Organization Address City/[facility] Phon e Number [facility] [phone] [facility] [address] [place] [phone] TSH, SENSITIVE (03/25/2003 8:44 AM CDT) athologist Signature TSH 2.86 0.30 - 5.00 [facility] uIU/ml Thyroid Meds No [facility] Specimen Anatomical Collection Method Collection Time Receive d Time (Source) Location / / Volume Laterality 03/25/2003 8:44 AM 3 8:45 CDT AM CDT Danielle Bender MD LAB_1 Performing Organization Address [facility] Phon e Number [facility] [phone] [facility] [address] [place] [phone] FERRITIN (03/25/2003 8:44 AM CDT) athologist Signature Ferritin 70 10 - 151 [facility] ng/ml Specimen Anatomical Collection Method Collection Time Receive d Time (Source) Location / / Volume Laterality 03/25/2003 8:44 AM 3 8:45 CDT AM CDT Danielle Bender MD LAB_1 Performing Organization Address City/[facility]/ZIP Code Phon e Number [facility] [phone] [facility] [address] [phone] (ABNORMAL) VIT B12 & FOLATE (03/25/2003 8:44 AM CDT) athologist Signature Vitamin B12 1855 (H) 211 - 911 [facility] pg/ml Folate >24.0 >3.0 ng/ml [facility] Specimen Anatomical Collection Method Collection Time Receive d Time (Source) Location / / Volume Laterality 03/25/2003 8:44 AM 3 8:45 CDT AM CDT Danielle Bender MD LAB_1 Performing Organization Address [facility] Phon e Number [facility] [phone] [facility] [address] [place] [phone] GLUCOSE - FASTING > 8 HRS FASTING (03/25/2003 8:44 AM CDT) athologist Signature Glucose 80 70 - 110 [facility] mg/dl Hours Fasting 12 hours [facility] Specimen Anatomical Collection Method Collection Time Receive d Time (Source) Location / / Volume Laterality 03/25/2003 8:44 AM 3 8:45 CDT AM CDT Danielle Bender MD LAB_1 Performing Organization Address [facility] Phon e Number [facility] [phone] [facility] [address] [place] [phone] IRON, TIBC, % SAT. (CALC.) (03/25/2003 8:44 [...] Danielle Bender MD LAB_1 Performing Organization Address [facility] Phon e Number [facility] [phone] [facility] [address] [place] [phone] CHOLESTEROL LIPID PANEL FAST >12HR FAST (03/25/2003 8:44 AM CDT) P athologist Signature Cholesterol 139 <200 mg/dl [facility] Triglyceride 65 <200 mg/dl [facility] HDL 38 >35 mg/dl [facility] LDL, Calc. 88 mg/dl [facility] Hours Fasting 12 hours [facility] Specimen Anatomical Collection Method Collection Time Receive d Time (Source) Location / / Volume Laterality 03/25/2003 8:44 AM 3 8:45 CDT AM CDT Danielle Bender MD LAB_1 Performing Organization Address [facility] Phon e Number [facility] [phone] [phone] PROTIME (03/25/2003 8:44 AM CDT) [facility] gist Method Time Signature Protime 14.1 12.0 - [facility] 15.2 sec Protime PLEASE NOTE [facility] CHANGE IN EXPECTED VALUES Coumadin No [facility] INR 1.1 [facility] Specimen Anatomical Collection Method Collection Time Receive d Time (Source) Location / / Volume Laterality 03/25/2003 8:44 AM 3 8:45 CDT AM CDT Danielle Bender MD LAB_1 Performing Organization Address [facility]/ZIP Code Phon e Number [facility] [phone] [facility] [address] [place] [phone] HEMOGLOBIN, BLOOD (03/25/2003 8:44 AM CDT) P athologist Signature Hemoglobin 13.8 12.0 - 16.0 [facility] g/dl Specimen Anatomical Collection Method Collection Time Receive d Time (Source) Location / / Volume Laterality 03/25/2003 8:44 AM 3 8:45 CDT AM CDT Danielle Bender MD LAB_1 Performing Organization Address City/State/ZIP Code Phon e Number [facility] [phone] [facility] [address] [phone] documented in this encounter Visit Diagnoses Not on filedocumented in this encounter Care Teams Administrative And Program Specialist Relationship Specialty Start Date End Date Danielle Bender MD PCP - General 04/09/01 08/07/[address] [place] [address] documented as of this encounter
--- OUTSIDE RECORDS SUMMARY | 2022-02-08 14:30 | XMS_ITS | Encounter Summary ---
:1960 Author Organization [facility] Address [address] [place] [address] Care Team Providers Name Role Phone Danielle Bender MD Primary Care Provider Encounter Details Date Type Department Care Team Description 09/05/2003 Orders Only [facility] Labo Danielle Linares MD [facility] 96 1430 [facility] [address] [place] [address] [place], [place] [phone] (Wo rk) Social History Tobacco Use Types [...] 09/05/2003 12:00 AM Res ults for this ELECTRICAL HARDWARE ENGINEER procedure are i n the results section. documented in this encounter Results PAP TEST, ROUTINE (09/05/2003 12:00 AM ELECTRICAL HARDWARE ENGINEER) Component Value Ref Test Analysis Performed At [facility] Method Time Signature Cytology, Pap (NOTE) [facility] Mechanical Cad Drafter Cytology Report Patient Name: PATY YEAGER Taken: 09/05/03 Received: 09/06/03 Reported: 09/07/03 Physician(s): DANIELLE BENDER ([id number]) ?Source of Specimen Liquid routine Pap, cervical/endocervical: [...] Volume Laterality 09/05/2003 09/06/2003 11:4 6 AM ELECTRICAL HARDWARE ENGINEER Danielle Bender MD LAB_1 Performing Organization Address City/State/ZIP [facility] Phon e Number [address] [address] [place], [place] [phone] documented in this encounter Visit Diagnoses Not on filedocumented in this encounter Care Teams Director Of Casework Relationship Specialty Start Date End Date Danielle Bender MD PCP - General 04/09/01 08/07/[address] [place] [address] documented as of this encounter
--- OUTSIDE RECORDS SUMMARY | 2022-02-08 14:30 | XMS_ITS | Encounter Summary ---
:1960 Author Organization [facility] Address [address] [place] [address] Care Team Providers Name Role Phone Danielle Bender MD Primary Care Provider Encounter Details Date Type Department Care Team Description 06/12/2002 Correspondence [place] [facility] Rajeev Cho, RX REF [place] [facility] MD [address] [place] [address] Social History Tobacco Use Types Packs/Day Years Used Date Smoking Tobacco: Never Assessed Sex Assigned at Date Recorded Not on file documented as of this encounter Progress Notes Jailene Cho - 06/12/2002 12:00 AM REDUCING SALON ATTENDANT CING SALON ATTENDANT documented in this encounter Plan of Treatment Not on filedocumented as of this encounter Visit Diagnoses Not on filedocumented in this encounter Care Teams Accounting Specialist Relationship Specialty Start Date End Date Dainelle Bender MD PCP - General 04/09/01 08/07/10 1430 [facility] [address] [place] [address] documented as of this encounter
--- OUTSIDE RECORDS SUMMARY | 2022-02-08 14:30 | XMS_ITS | Encounter Summary ---
:1960 Author Organization [facility] Address [address] [place] [address] Care Team Providers Name Role Phone Danielle Bender MD Primary Care Provider Encounter Details Date Type Department Care Team Description 12/10/2001 Orders Only Deloris Chirinos MD [address] [place] [address] (Wo rk) Social History Tobacco Use [...] Results MICROALBUMIN/CREATININE RATIO (12/10/2001 8:35 AM CDT) [facility] Method Time Signature Albumin, 2.4 mg/dl [facility] Urine, Random Creatinine,Ur 293.3 mg/dl [facility] Random Alb/Creat 8 <30 mg/g [facility] Ratio, Urine, creatinine Random Specimen Anatomical Collection Method Collection Time Receive d Time (Source) Location / / Volume Laterality 12/10/2001 8:35 AM 2 8:53 CDT AM CDT Deloris Chirinos MD LAB_1 Performing Organization Address City/State/ZIP Code Phon e Number [facility] [phone] [facility] [address] [phone] documented in this encounter Visit Diagnoses Not on filedocumented in this encounter Care Teams Adding Machine Mechanic Relationship Specialty Start Date End Date Danielle Bender MD PCP - General 04/09/01 08/07/[address] [place] [address] documented as of this encounter
--- OUTSIDE RECORDS SUMMARY | 2022-02-08 14:30 | XMS_ITS | Encounter Summary ---
:1960 Author Organization [facility] Address [address] [place] [address] Care Team Providers Name Role Phone Danielle Bender MD Primary Care Provider Encounter Details Date Type Department Care Team Description 10/11/2002 Correspondence External to Danielle Bender, JAYRO RAL and BARIATRIC MD SURGERY [address] [place] [address] (Wo rk) Social History Tobacco Use Types [...] on filedocumented in this encounter Care Teams Nut Processing Supervisor Relationship Specialty Start Date End Date Danielle Bender MD PCP - General 04/09/01 08/07/[address] [place] [address] documented as of this encounter
--- OUTSIDE RECORDS SUMMARY | 2022-02-08 14:30 | XMS_ITS | Encounter Summary ---
:1960 Author Organization [facility] Address [address] [place] [address] Care Team Providers Name Role Phone Danielle Bender MD Primary Care Provider Encounter Details Date Type Department Care Team Description 11/08/2003 Orders Only [place] LabKelly Mak, [address] PLAYGROUND EQUIPMENT ERECTOR, [place] [address] Social History Tobacco Use Types Packs/Day Years [...] STREP SCREEN (WAITI (11/08/2003 9:42 AM CDT) [facility] Method Time Signature Patient Home [id number] [facility] Phone # Patient Work None [facility] Phone # Grp A Rapid Negative NEG [facility] Screen Grp A Culture Negative NEG [facility] Final Specimen Anatomical Collection Method Collection Time Receive d Time (Source) Location / / Volume Laterality 11/08/2003 9:42 AM 4 9:43 CDT AM CDT Kelly Mcneal APRN, TELECOMMUNICATIONS SUPPORT LAB_1 Performing Organization Address City/State/ZIP Code Phon e Number [facility] [phone] [facility] [address] [phone] documented in this encounter Visit Diagnoses Not on filedocumented in this encounter Care Teams Medical Technologist Chief Relationship Specialty Start Date End Date Danielle Bender MD PCP - General 04/09/01 08/07/[address] [place] [address] documented as of this encounter
--- OUTSIDE RECORDS SUMMARY | 2022-02-08 14:30 | XMS_ITS | Encounter Summary ---
:1960 Author Organization [employer] Address [address], [place] [address] Care Team Providers Name Role Phone Danielle Bender MD Primary Care Provider Reason for Visit Reason Comments PRE-OP EXAM Encounter Details Date Type Department Care Team Description 06/28/2004 [place], PREOP EXAM OTHER Internal Medicine MD SPECIFIED (Primary [address] Dx) [facility] [place] [address] [phone] (Wo rk) Social History Tobacco Use Types Packs/Day Years Used Date Smoking Tobacco: Never Alcohol Use Standard Drinks/Week Comments Yes 0 (1 standard drink = 0.6 oz pure alcoho l) mod Sex Assigned at Date Recorded Not on file documented as of this encounter Last Filed Vital Signs Vital Sign Reading Time Taken Comments Blood Pressure 112/60 06/28/2004 9:29 AM SIGN ARTIST Pulse 60 06/28/2004 9:29 AM SIGN ARTIST Temperature 36.3 ??C (97.4 ??F) 06/28/2004 9:29 AM SIGN ARTIST Respiratory Rate 16 06/28/2004 9:29 AM SIGN ARTIST Oxygen Saturation - - Inhaled Oxygen Concentration - - Weight 79 kg (174 lb 3.2 oz) 06/28/2004 9:29 AM SIGN ARTIST Height 165.1 cm (5' 5) 06/28/2004 9:29 AM SIGN ARTIST Body Mass Index 28.99 06/28/2004 9:29 AM SIGN ARTIST documented in this encounter Progress Notes 06/28/2004 9:20 AM SIGN ARTIST Paty Watts, medical record [id number], is a 43 yr female who is here for evaluation for fitness for surgery. She is scheduled for surgery at [facility] on 07/04/04 by [...] JOYCE 06/28/2004 9:33 am PRE-OP QUESTIONS:abdominalplasty at [facility] 07/04/04 dr sams Tightening or pressure in [...] Other Re sults for this COUNT-NO DIFF SIGN ARTIST Specified procedure are in the results section. ECG TRACING Waiting 06/28/2004 10:43 AM Preop Exam Other Resu lts for this SIGN ARTIST Specified procedure are i n the results section. documented in this encounter Results (ABNORMAL) HEMOGRAM/PLTS (06/28/2004 10:43 AM SIGN ARTIST) P athologist Signature WBC 5.0 3.6 - 11.0 [facility] k/ul Comment: Pre-Op [facility],[id number] RBC 4.06 4.0 - 5.2 M/ul [facility] Hemoglobin 13.9 12.0 - 16.0 g/dl [facility] RS HCT 40.2 36.0 - 46.0 % [facility] MCV 99.0 80 - 100 fl [facility] MCH 34.2 (H) 26 - 34 pg [facility] MCHC 34.5 32 - 36 % [facility] RDW 13.5 11.5 - 14.5 % [facility] Platelets 198 150 - 450 k/ul [facility] Specimen Anatomical Collection Method Collection Time Receive d Time (Source) Location / / Volume Laterality 06/28/2004 10:43 06/28/2004 AM SIGN ARTIST 10:44 AM SIGN ARTIST Danielle Bender MD LAB_1 Performing Organization Address City/State/ZIP Code Phon e Number [facility] [phone] [facility] [address] [phone] EKG TRACING (06/28/2004 10:43 AM SIGN ARTIST) [facility] gist Method Time Signature EKG See Separate [facility] Report Specimen Anatomical Collection Method Collection Time Receive d Time (Source) Location / / Volume Laterality 06/28/2004 10:43 06/28/2004 AM SIGN ARTIST 10:44 AM SIGN ARTIST Danielle Bender MD EKG Performing Organization Address City/State/ZIP Code Phon e Number [facility] [phone] [facility] [address] [place] [phone] documented in this encounter Visit Diagnoses Diagnosis Other specified pre-operative examinatio n - Primary documented in this encounter Care Teams Sugar Mill Worker Relationship Specialty Start Date End Date Danielle Bender MD PCP - General 04/09/[address] [place] [address] documented as of this encounter
--- OUTSIDE RECORDS SUMMARY | 2022-02-08 14:30 | XMS_ITS | Encounter Summary ---
:1960 Author Organization [employer] Address [address] [place] [address] Care Team Providers Name Role Phone Danielle Bender MD Primary Care Provider Encounter Details Date Type Department Care Team Description 03/26/2002 Office Visit [place] Danielle Bender OBESITY NOS; Internal Medicine MD [place] DIABETES UNCOMPL ADULT-TYPE II; 1430 [facility] [address] PURE HYPERCHOLESTEROLEM [facility], [address] [place] [address] [phone] Social History Tobacco Use Types Packs/Day Years [...] you want to discuss with the provider? -{YES/NO/NA:77132} BP was taken on the {RIGHT/LEFT:648820} arm. Large cuff used- {NO/YES:282} Preventive Services reviewed -{YES/NO:63}. Immunizations reviewed-{YES/NO:63}. Screening for domestic abuse done -{YES/NO:63} Abuse present -{DVS:270}. Tobacco Status -{CURRENT, FORMER:271}. Interested in quiting - {YES/NO/NA/QUIT DATE:285} rug dry room attendant offered -{ACCEPTED/DECLINED:272}. Aspirin taken daily- {YES/NO/CONTRAINDICATED:284} Health Education given -{YES/NO:03359}. Arminda Antoine Jey 03/26/2002 9:46 AM NapoleonDanielle [...] June of last year. Her factor V [place] came back abnormal. But she had a [...] propellant. But she can't get it at [facility] anymore. We checked at our pharmacy [...] hypercholesterolemia documented in this encounter Care Teams Senior Data Warehouse Architect Relationship Specialty Start Date End Date Danielle Bender MD PCP - General 04/09/01 08/07/10 1430 [facility] [address] [place] [address] documented as of this encounter
--- OUTSIDE RECORDS SUMMARY | 2022-02-08 14:30 | XMS_ITS | Encounter Summary ---
:1960 Author Organization [employer] Address [address] [place] [address] Care Team Providers Name Role Phone Danielle Bender MD Primary Care Provider Encounter Details Date Type Department Care Team Description 12/10/2001 Orders Only Deloris Chirinos MD [address] [address] (Wo rk) Social History Tobacco Use [...] Deloris Chirinos MD LAB_1 Performing Organization Address [facility] Phon e Number [employer] [phone] [address] (ABNORMAL) GLUCOSE - FASTING > 8 HRS FASTING (12/10/2001 8:35 AM CDT) Analysis Performed At [facility] logist Time Signature Glucose 127 (H) 70 - 110 [facility] mg/dl Hours Fasting 13.5 hours [facility] Specimen Anatomical Collection Method Collection Time Receive d Time (Source) Location / / Volume Laterality 12/10/2001 8:35 AM 2 8:37 CDT AM CDT Deloris Chirinos MD LAB_1 Performing Organization Address [facility] Phon e Number [employer] [phone] [address] CREATININE (12/10/2001 8:35 AM CDT) athologist Signature Creatinine 0.9 0.5 - 1.2 [facility] mg/dl Specimen Anatomical Collection Method Collection Time Receive d Time (Source) Location / / Volume Laterality 12/10/2001 8:35 AM 2 8:37 CDT AM CDT Deloris Chirinos MD LAB_1 Performing Organization Address [facility] Phon e Number [employer] [phone] [facility] [address] [place] [phone] (ABNORMAL) CHOLESTEROL LIPID PANEL FAST >12HR FAST (12/10/2001 8:35 AM CDT) Component Value Ref Test Analysis Performed At [facility] gist Range Method Time Signature Cholesterol 221 (H) <200 [facility] mg/dl Cholesterol Result should not be interpreted without [facility] the patient's history of cardiovascular risk factors. Triglyceride 141 <200 [facility] mg/dl HDL 50 >35 [facility] mg/dl LDL, Calc. 143 mg/dl [facility] Hours Fasting 13.5 hours [facility] Specimen Anatomical Collection Method Collection Time Receive d Time (Source) Location / / Volume Laterality 12/10/2001 8:35 AM 2 8:37 CDT AM CDT Deloris Chirinos MD LAB_1 Performing Organization Address City/[facility] Phon e Number [employer] [phone] [phone] BILI - TOTAL (12/10/2001 8:35 AM CDT) athologist Signature Bilirubin, 0.4 0.2 - 1.2 [facility] Total mg/dl Specimen Anatomical Collection Method Collection Time Receive d Time (Source) Location / / Volume Laterality 12/10/2001 8:35 AM 2 8:37 CDT AM CDT Deloris Chirinos MD LAB_1 Performing Organization Address City/[facility] Phon e Number [facility] [employer] [phone] [phone] AST (SGOT) (12/10/2001 8:35 AM CDT) athologist Signature AST (SGOT) 21 <45 U/L [facility] Specimen Anatomical Collection Method Collection Time Receive d Time (Source) Location / / Volume Laterality 12/10/2001 8:35 AM 2 8:37 CDT AM CDT Deloris Chirinos MD LAB_1 Performing Organization Address City/[facility]/ZIP Code Phon e Number [facility] [phone] [facility] [address] [phone] ALT (SGPT) (12/10/2001 8:35 AM CDT) P athologist Signature ALT (SGPT) 21 0 - 55 U/L [facility] Specimen Anatomical Collection Method Collection Time Receive d Time (Source) Location / / Volume Laterality 12/10/2001 8:35 AM 2 8:37 CDT AM CDT Deloris Chirinos MD LAB_1 Performing Organization Address [facility]/[employer] Code Phon e Number [facility] [phone] [facility] [address] [place] [phone] (ABNORMAL) PROTIME (12/10/2001 8:35 AM CDT) [facility] gist Method Time Signature Protime 31.5 (H) 12.7 - [facility] 16.3 sec Protime New Method Effective 4-01-02 H [facility] PLEASE NOTE CHANGE IN EXPECTED VALUES Coumadin Yes [facility] INR 2.4 [facility] Specimen Anatomical Collection Method Collection Time Receive d Time (Source) Location / / Volume Laterality 12/10/2001 8:35 AM 2 8:37 CDT AM CDT Deloris Chirinos MD LAB_1 Performing Organization Address [facility] Code Phon e Number [facility] [employer] [phone] [facility] [address] [place] [phone] documented in this encounter Visit Diagnoses Not on filedocumented in this encounter Care Teams Digital Strategist Relationship Specialty Start Date End Date Danielle Bender MD PCP - General 04/09/01 08/07/[address] [place] [address] documented as of this encounter
--- OUTSIDE RECORDS SUMMARY | 2022-02-08 14:30 | XMS_ITS | Encounter Summary ---
:1960 Author Organization [employer] Address [address] [place] [address] Care Team Providers Name Role Phone Danielle Bender MD Primary Care Provider Encounter Details Date Type Department Care Team Description 09/05/2003 Orders Only [employer] [facility] Danielle Linares MD [facility]0 [facility] [address] [place] [address] [place], [place] [phone] (Wo rk) Social History Tobacco Use Types [...] 09/05/2003 8:49 AM Resu lts for this SEX WORKER OR ESCORT procedure are i n the results section. VIT B12 & FOLATE Routine 09/05/2003 8:49 AM Resul ts for this SEX WORKER OR ESCORT procedure are i n the results section. LIPID PANEL, FAST > Routine 09/05/2003 8:49 AM Re sults for this 12 HOUR SEX WORKER OR ESCORT procedure are i n the results section. FERRITIN Routine 09/05/2003 8:49 AM Results f or this SEX WORKER OR ESCORT procedure are i n the results section. TSH, SENSITIVE Routine 09/05/2003 8:49 AM Results for this (WITH REFLEX) SEX WORKER OR ESCORT procedure are in the results section. IRON PROFILE Routine 09/05/2003 8:49 AM Results f or this (IRON,TIBC,%SAT.(CA SEX WORKER OR ESCORT procedur e are in LC)) the results section. GLUCOSE - FASTING > Routine 09/05/2003 8:49 AM Re sults for this 8 HRS FASTING SEX WORKER OR ESCORT procedure are in the results section. documented in this encounter Results TSH, SENSITIVE (09/05/2003 8:49 AM SEX WORKER OR ESCORT) athologist Signature TSH 2.18 0.30 - 5.00 [facility] uIU/ml Thyroid Meds No [facility] Specimen Anatomical Collection Method Collection Time Receive d Time (Source) Location / / Volume Laterality 09/05/2003 8:49 AM 4 8:50 SEX WORKER OR ESCORT AM SEX WORKER OR ESCORT Danielle Bender MD LAB_1 Performing Organization Address [facility] Phon e Number [employer] [phone] [phone] CHOLESTEROL LIPID PANEL FAST >12HR FAST (09/05/2003 8:49 AM SEX WORKER OR ESCORT) athologist Signature Cholesterol 127 <200 mg/dl [facility] Triglyceride 71 <200 mg/dl [facility] HDL 54 >35 mg/dl [facility] LDL, Calc. 59 mg/dl [facility] Hours Fasting 12 hours [facility] Specimen Anatomical Collection Method Collection Time Receive d Time (Source) Location / / Volume Laterality 09/05/2003 8:49 AM 4 8:50 SEX WORKER OR ESCORT AM SEX WORKER OR ESCORT Danielle Bender MD LAB_1 Performing Organization Address [facility] Phon e Number [employer] [phone] [facility] [address] [place] [phone] IRON, TIBC, % SAT. (CALC.) (09/05/2003 8:49 AM SEX WORKER OR ESCORT) athologist Signature Iron 148 40 - 180 [facility] mcg/dl TIBC, 347 250 - 450 [facility] Calculated mcg/dl % Saturation, 43 20 - 50 % [facility] calc. Specimen Anatomical Collection Method Collection Time Receive d Time (Source) Location / / Volume Laterality 09/05/2003 8:49 AM 4 8:50 SEX WORKER OR ESCORT AM SEX WORKER OR ESCORT Danielle Bender MD LAB_1 Performing Organization Address [facility]/ZIP [facility] Phon e Number [facility] [phone] [address] [address] [place] [phone] HEMOGLOBIN, BLOOD (09/05/2003 8:49 AM SEX WORKER OR ESCORT) P athologist Signature Hemoglobin 13.3 12.0 - 16.0 [facility] g/dl Specimen Anatomical Collection Method Collection Time Receive d Time (Source) Location / / Volume Laterality 09/05/2003 8:49 AM 4 8:50 SEX WORKER OR ESCORT AM SEX WORKER OR ESCORT Danielle Bender MD LAB_1 Performing Organization Address [facility] Phon e Number [facility] [employer] [phone] [address] [address] [place] [phone] GLUCOSE - FASTING > 8 HRS FASTING (09/05/2003 8:49 AM SEX WORKER OR ESCORT) P athologist Signature Glucose 79 70 - 110 [facility] mg/dl Hours Fasting 12 hours [facility] Specimen Anatomical Collection Method Collection Time Receive d Time (Source) Location / / Volume Laterality 09/05/2003 8:49 AM 4 8:50 SEX WORKER OR ESCORT AM SEX WORKER OR ESCORT Danielle Bender MD LAB_1 Performing Organization Address [facility] Phon e Number [facility] [phone] [address] [address] [place] [phone] FERRITIN (09/05/2003 8:49 AM SEX WORKER OR ESCORT) P athologist Signature Ferritin 46 10 - 151 [facility] ng/ml Specimen Anatomical Collection Method Collection Time Receive d Time (Source) Location / / Volume Laterality 09/05/2003 8:49 AM 4 8:50 SEX WORKER OR ESCORT AM SEX WORKER OR ESCORT Danielle Bender MD LAB_1 Performing Organization Address [facility]/ZIP Code Phon e Number [facility] [phone] [facility] [address] [place] [phone] (ABNORMAL) VIT B12 & FOLATE (09/05/2003 8:49 AM SEX WORKER OR ESCORT) Analysis Performed At Patho logist Time Signature Vitamin B12 >2000 (H) 211 - 911 [facility] pg/ml Folate >24.0 >3.0 ng/ml [facility] Specimen Anatomical Collection Method Collection Time Receive d Time (Source) Location / / Volume Laterality 09/05/2003 8:49 AM 8:50 SEX WORKER OR ESCORT AM SEX WORKER OR ESCORT Danielle Bender MD LAB_1 Performing Organization Address [facility] Phon e Number [facility] [phone] [phone] documented in this encounter Visit Diagnoses Not on filedocumented in this encounter Care Teams Rn Residential Relationship Specialty Start Date End Date Danielle Bender MD PCP - General 04/09/01 08/07/[address] [place] [address] documented as of this encounter
--- OUTSIDE RECORDS SUMMARY | 2022-02-08 14:30 | XMS_ITS | Encounter Summary ---
:1960 Author Organization [employer] Address [address] [place] [address] Care Team Providers Name Role Phone Danielle Bender MD Primary Care Provider Reason for Visit Reason Comments RECTAL BLEEDING Encounter Details Date Type Department Care Team Description 12/14/2002 Telephone [facility] Bridgett Galarza, RN RECTAL BLEEDING [address] [place], [place] [address] [place], [place] [address] Social History Tobacco Use Types Packs/Day Years [...] filedocumented in this encounter Care Teams Chemical Research Engineer Relationship Specialty Start Date End Date Danielle Bender MD PCP - General 04/09/01 08/07/[address] [facility] [address] [place] [address] documented as of this encounter
--- OUTSIDE RECORDS SUMMARY | 2022-02-08 14:30 | XMS_ITS | Encounter Summary ---
:1960 Author Organization [facility] Address [address] [place] [address] Care Team Providers Name Role Phone Danielle Bender MD Primary Care Provider Encounter Details Date Type Department Care Team Description 06/28/2004 Correspondence None Unknown, Physici an CONSENT/RELEASE [address] [place] [address] (Wo rk) Social History Tobacco Use Types Packs/Day Years Used Date Smoking Tobacco: Never Alcohol Use Standard Drinks/Week Comments Yes 0 (1 standard drink = 0.6 oz pure alcoho l) mod Sex Assigned at Date Recorded Not on file documented as of this encounter Progress Notes Unknown, Physician - 06/28/2004 12:00 AM EVENT PLANNER documented in this encounter Plan of Treatment Not on filedocumented as of this encounter Visit Diagnoses Not on filedocumented in this encounter Care Teams Pain Management Specialist Relationship Specialty Start Date End Date Danielle Bender MD PCP - General 04/09/01 08/07/[address] [place] [address] documented as of this encounter
--- OUTSIDE RECORDS SUMMARY | 2022-02-08 14:30 | XMS_ITS | Encounter Summary ---
:1960 Author Organization [facility] Address [address] [place] [address] Care Team Providers Name Role Phone Danielle Bender MD Primary Care Provider Encounter Details Date Type Department Care Team Description 11/08/2003 Orders Only [place] [facility] Kelly Madsen, [address] MOBILE APPLICATION TESTER, TELE[place]APH [place] [address] Social History Tobacco Use Types Packs/Day Years [...] Mcneal APRN, CNP LAB_1 Performing Organization Address City/[facility] Phon e Number [facility] [phone] [facility] [address] [place] [phone] (ABNORMAL) HEMOGRAM/PLTS/DIFF (11/08/2003 10:07 AM CDT) [facility] Method Time Signature WBC 7.0 [...] Lymph 31 17 - 43 % [facility] [place] 6 4 - 12 % [facility] Eos 2 0 - 8 % [facility] Baso 1 0 - 1 % [facility] Neutrophil 4.3 1.8 - 7.7 [facility] Absolute k/ul Lymph Absolute 2.2 1.0 - 4.8 [facility] k/ul Faulkner Absolute 0.4 0.1 - 0.7 [facility] k/ul Eos Absolute 0.1 0.0 - 0.5 [facility] k/ul Baso Absolute 0.0 0.0 - 0.2 [facility] k/ul Specimen Anatomical Collection Method Collection Time Receive d Time (Source) Location / / Volume Laterality 11/08/2003 10:07 11/08/2003 AM CDT 10:08 AM CDT Kelly Mcneal APRN, CNP LAB_1 Performing Organization Address [facility] Phon e Number [facility] [phone] [phone] documented in this encounter Visit Diagnoses Not on filedocumented in this encounter Care Teams Hot Metal Charger Relationship Specialty Start Date End Date Danielle Bender MD PCP - General 04/09/01 08/07/10 1430 [facility] [address] [place] [address] documented as of this encounter
--- OUTSIDE RECORDS SUMMARY | 2022-02-08 14:30 | XMS_ITS | Encounter Summary ---
:1960 Author Organization [facility] Address [address] [place] [address] Care Team Providers Name Role Phone Danielle Bender MD Primary Care Provider Encounter Details Date Type Department Care Team Description 12/14/2002 Correspondence None Unknown, Physici an CONSENT JOSE/AOB [address] [place] [address] (Wo rk) Social History Tobacco Use Types [...] on filedocumented in this encounter Care Teams Wood Crew Supervisor Relationship Specialty Start Date End Date Danielle Bender MD PCP - General 04/09/01 08/07/[address] [place] [address] documented as of this encounter
--- OUTSIDE RECORDS SUMMARY | 2022-02-08 14:30 | XMS_ITS | Encounter Summary ---
:1960 Author Organization [employer] Address [address], [place] [address] Care Team Providers Name Role Phone Danielle Bender MD Primary Care Provider Encounter Details Date Type Department Care Team Description 07/01/2002 Office Visit [place] Danielle Bender, GYNEC OLOGIC EXAMINATION; Internal Medicine SKIN HYPERTRO/ATROPH NOS; [address] [facility] [address] [place] [address] [phone] (Wo rk) Social History Tobacco Use Types Packs/Day Years Used Date Smoking Tobacco: Never Assessed Sex Assigned at Date Recorded Not on file documented as of this encounter Last Filed Vital Signs Vital Sign Reading Time Taken Comments Blood Pressure 120/80 07/01/2002 3:00 PM LAP GRINDER Pulse 60 07/01/2002 3:00 PM LAP GRINDER Temperature - - Respiratory Rate - - Oxygen Saturation - - Inhaled Oxygen Concentration - - Weight 146.1 kg (322 lb) 07/01/2002 3:00 PM LAP GRINDER Height 165.1 cm (5' 5) 07/01/2002 3:00 PM LAP GRINDER Body Mass Index 53.58 07/01/2002 3:00 PM LAP GRINDER documented in this encounter Progress Notes 07/01/2002 3:00 PM LAP GRINDER Paty Watts is here today for [...] emotionally afraid? -NO. Tobacco Status? -Never smoked fur vault attendant offered? -NOT APPLICABLE. Aspirin taken daily? - YES Health Education given? -NO. patient's phone number [phone] (home) [phone] (work) Arminda Khanna LPN 07/01/2002 3:02 PM [...] 07/01/2002 12:00 AM CSTS. 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 She is single. 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 She works in [email or web address] ([employer] Doesn't smoke cigarettes. Family History - Significant [...] SUMMARY: ROUTINE HEALTH MAINTENANCE, SKIN TAGS cc: GRINDER documented in this encounter Plan of Treatment Not on filedocumented as of this encounter Visit Diagnoses Diagnosis Gynecological examination Unspecified hypertrophic and atrophic co ndition of skin Screening for malignant neoplasm of the cervix documented in this encounter Care Teams Coating Mixer Supervisor Relationship Specialty Start Date End Date Danielle Bender MD PCP - General 04/09/01 08/07/10 1430 [facility] [address] [place] [address] documented as of this encounter
--- OUTSIDE RECORDS SUMMARY | 2022-02-08 14:30 | XMS_ITS | Encounter Summary ---
:1960 Author Organization [facility] Address [address] [place] [address] Care Team Providers Name Role Phone Danielle Bender MD Primary Care Provider Encounter Details Date Type Department Care Team Description 03/19/2002 Orders Only Danielle Bender MD [address] [place] [address] (Wo rk) Social History Tobacco Use Types [...] PROTEIN S ACTIVITY (03/19/2002 8:26 AM CDT) [facility] Method Time Signature Protein S 76 56 - [address] [facility]ENTER[facility] % Protein S Performed at [facility] Specimen Anatomical Collection Method Collection Time Receive d Time (Source) Location / / Volume Laterality 03/19/2002 8:26 AM 09/27/200 2 8:27 CDT AM CDT Danielle Bender MD LAB_1 Performing Organization Address City/[facility]/ZIP Code Phon e Number [facility] [employer] [phone] [address] PROTEIN C ACTIVITY (03/19/2002 8:26 AM CDT) [facility] gist Method Time Signature Protein C 118 62 - 148 [facility] Activity % Protein C Performed at [facility] Specimen Anatomical Collection Method Collection Time Receive d Time (Source) Location / / Volume Laterality 03/19/2002 8:26 AM 2 8:27 CDT AM CDT Danielle Bender MD LAB_1 Performing Organization Address City/[facility]/ZIP Code Phon e Number [facility] [phone] [phone] (ABNORMAL) HGB A1C (03/19/2002 8:26 AM CDT) P athologist Signature Hgb A1c 6.2 (H) 4.3 - 6.1 % [facility] Specimen Anatomical Collection Method Collection Time Receive d Time (Source) Location / / Volume Laterality 03/19/2002 8:26 AM 2 8:27 CDT AM CDT Danielle Bender MD LAB_1 Performing Organization Address City/[facility] Code Phon e Number [facility] [employer] [phone] [phone] documented in this encounter Visit Diagnoses Not on filedocumented in this encounter Care Teams Livestock Rancher Relationship Specialty Start Date End Date Danielle Bender MD PCP - General 04/09/01 08/07/[address] [place] [address] documented as of this encounter
--- OUTSIDE RECORDS SUMMARY | 2022-02-08 14:30 | XMS_ITS | Encounter Summary ---
:1960 Author Organization [employer] Address [address], [place] [address] Care Team Providers Name Role Phone Danielle Bender MD Primary Care Provider Encounter Details Date Type Department Care Team Description 10/20/2003 Office Visit [place] Danielle Bender, SKIN DISORDER NOS Internal Medicine [address] [place] [address] [place] [address] [phone] (Wo rk) Social History Tobacco Use Types [...] Caroline M - 10/20/2003 12:00 AM CDTSUBJECTIVE: Mkwzd-exqg-duab-old white female who comes in today for mole removal. She has a lesion on the right side of her neck and on her low back that she'd like frozen with liquid nitrogen. I had seen them at her physical and they are benign-appearing. OBJECTIVE: Vitals as per in EPIC. Calld-llzz-kcmz-old white female, alert, pleasant, in no acute [...] tissue documented in this encounter Care Teams Trash Collector Truck Driver Relationship Specialty Start Date End Date Danielle Bender MD PCP - General 04/09/01 08/07/[address] [place] [address] documented as of this encounter
--- OUTSIDE RECORDS SUMMARY | 2022-02-08 14:30 | XMS_ITS | Encounter Summary ---
:1960 Author Organization [employer] Address [address] [place] [address] Care Team Providers Name Role Phone Danielle Bender MD Primary Care Provider Encounter Details Date Type Department Care Team Description 03/24/2003 Correspondence [facility] Danielle Bender MD LAB TEST F/U Medicine [address] [place] [address] [phone] Social History Tobacco Use Types Packs/Day Years [...] on filedocumented in this encounter Care Teams Tin Cutter Relationship Specialty Start Date End Date Danielle Bender MD PCP - General 04/09/01 08/07/[address] [place] [address] documented as of this encounter
--- OUTSIDE RECORDS SUMMARY | 2022-02-08 14:30 | XMS_ITS | Encounter Summary ---
:1960 Author Organization [employer] Address [address] [place] [address] Care Team Providers Name Role Phone Danielle Bender MD Primary Care Provider Encounter Details Date Type Department Care Team Description 11/01/2002 Telephone [place] [facility] Purvi Landis, RN Department [address] [address] [facility], [address] [phone] Social History Tobacco Use Types Packs/Day Years [...] on filedocumented in this encounter Care Teams Subwarehouse Supervisor Relationship Specialty Start Date End Date Danielle Bender MD PCP - General 04/09/01 08/07/[address] [place] [address] documented as of this encounter
--- OUTSIDE RECORDS SUMMARY | 2022-02-08 14:30 | XMS_ITS | Encounter Summary ---
:1960 Author Organization [employer] Address [address] [place] [address] Care Team Providers Name Role Phone Danielle Bender MD Primary Care Provider Encounter Details Date Type Department Care Team Description 11/08/2003 Office Visit [facility](SORE THROAT); Practice FOSTER Mendoza, ABDIFATAH NOS [address] [place] [address] Social History Tobacco Use Types Packs/Day Years [...] Body Mass Index 29.45 09/05/2003 8:00 AM GRAPHICS SOFTWARE ENGINEER documented in this encounter Progress Notes 11/08/2003 [...] Tobacco Status reviewed? (see History Social-Substance) -YES lube attendant offered? -NOT APPLICABLE. Aspirin taken daily? -YES BP was taken on the RIGHT arm. BP cuff size used? -Adult Large Health Education given? -NO. Contact phone number [phone] (home) [phone] (work), alternate phone number- Lisa LEOPOLDO Meade [...] purpuras documented in this encounter Care Teams Supervisor Erection Shop Relationship Specialty Start Date End Date Danielle Bender MD PCP - General 04/09/01 08/07/[address] [place] [address] documented as of this encounter
--- OUTSIDE RECORDS SUMMARY | 2022-02-08 14:30 | XMS_ITS | Encounter Summary ---
:1960 Author Organization [employer] Address [address] [place] [address] Care Team Providers Name Role Phone Danielle Bender MD Primary Care Provider Encounter Details Date Type Department Care Team Description 11/01/2002 Orders Only External to Danielle Bender MD [address] [place] [address] (Wo rk) Social History Tobacco Use Types [...] on filedocumented in this encounter Care Teams Head Waitress Relationship Specialty Start Date End Date Danielle Bender MD PCP - General 04/09/01 08/07/[address] [place] [address] documented as of this encounter
--- OUTSIDE RECORDS SUMMARY | 2022-02-08 14:30 | XMS_ITS | Encounter Summary ---
:1960 Author Organization [employer] Address [address] [place] [address] Care Team Providers Name Role Phone Danielle Bender MD Primary Care Provider Encounter Details Date Type Department Care Team Description 12/17/2001 Office Visit [facility] Deloris Chirinos DIABETES UNCOMPL ADULT- TYPE II; Internal Medicine MD Gilberto THROMBOPHLEBITIS [place] [address] [address] [place] [address] [phone] Social History Tobacco Use Types Packs/Day Years [...] site documented in this encounter Care Teams Community Development Officer Relationship Specialty Start Date End Date Danielle Bender MD PCP - General 04/09/01 08/07/10 1430 [facility] [address] [place] [address] documented as of this encounter
--- OUTSIDE RECORDS SUMMARY | 2022-02-08 14:30 | XMS_ITS | Encounter Summary ---
:1960 Author Organization [employer] Address [address] [place] [address] Care Team Providers Name Role Phone Danielle Bender MD Primary Care Provider Encounter Details Date Type Department Care Team Description 07/05/2002 Orders Only [employer] Danielle Linares MD 14[address] [facility] [address] [place] [address] [place], [place] [phone] (Wo rk) Social History Tobacco Use Types Packs/Day Years Used Date Smoking Tobacco: Never Assessed Sex Assigned at Date Recorded Not on file documented as of this encounter Plan of Treatment Not on filedocumented as of this encounter Procedures Procedure Name Priority Date/Time Associated Comments Diagnosis HEMOGRAM Routine 07/05/2002 9:36 AM Results f or this EDUCATIONAL TECHNOLOGIST procedure are i n the results section. LIPID PANEL, FAST > Routine 07/05/2002 9:36 AM Re sults for this 12 HOUR EDUCATIONAL TECHNOLOGIST procedure are i n the results section. ESTRADIOL Routine 07/05/2002 9:36 AM Results f or this EDUCATIONAL TECHNOLOGIST procedure are i n the results section. FSH Routine 07/05/2002 9:36 AM Results f or this EDUCATIONAL TECHNOLOGIST procedure are i n the results section. TSH, SENSITIVE (WITH Routine 07/05/2002 9:36 AM R esults for this REFLEX) EDUCATIONAL TECHNOLOGIST procedure are i n the results section. HGB A1C Routine 07/05/2002 9:36 AM Results f or this EDUCATIONAL TECHNOLOGIST procedure are i n the results section. ALT (SGPT) Routine 07/05/2002 9:36 AM Results f or this EDUCATIONAL TECHNOLOGIST procedure are i n the results section. AST Routine 07/05/2002 9:36 AM Results f or this EDUCATIONAL TECHNOLOGIST procedure are i n the results section. SODIUM Routine 07/05/2002 9:36 AM Results f or this EDUCATIONAL TECHNOLOGIST procedure are i n the results section. POTASSIUM Routine 07/05/2002 9:36 AM Results f or this EDUCATIONAL TECHNOLOGIST procedure are i n the results section. GLUCOSE - FASTING > Routine 07/05/2002 9:36 AM Re sults for this 8 HRS FASTING EDUCATIONAL TECHNOLOGIST procedure are in the results section. CREATININE Routine 07/05/2002 9:36 AM Results f or this EDUCATIONAL TECHNOLOGIST procedure are i n the results section. BUN Routine 07/05/2002 9:36 AM Results f or this EDUCATIONAL TECHNOLOGIST procedure are i n the results section. documented in this encounter Results (ABNORMAL) HGB A1C (07/05/2002 9:36 AM EDUCATIONAL TECHNOLOGIST) athologist Signature Hgb A1c 6.4 (H) 4.3 - 6.1 % [facility] Specimen Anatomical Collection Method Collection Time Receive d Time (Source) Location / / Volume Laterality 07/05/2002 9:36 AM 3 9:37 EDUCATIONAL TECHNOLOGIST AM EDUCATIONAL TECHNOLOGIST Danielle Bender MD LAB_1 Performing Organization Address [facility] Phon e Number [facility] [phone] [facility] [address] [phone] SODIUM (07/05/2002 9:36 AM EDUCATIONAL TECHNOLOGIST) P athologist Signature Sodium 140 135 - 145 [facility] mmol/L Specimen Anatomical Collection Method Collection Time Receive d Time (Source) Location / / Volume Laterality 07/05/2002 9:36 AM 3 9:37 EDUCATIONAL TECHNOLOGIST AM EDUCATIONAL TECHNOLOGIST Danielle Bender MD LAB_1 Performing Organization Address [facility] Phon e Number [facility] [phone] [facility] [address] [phone] POTASSIUM (07/05/2002 9:36 AM EDUCATIONAL TECHNOLOGIST) athologist Signature Potassium 4.1 3.5 - 5.3 [facility] mmol/L Specimen Anatomical Collection Method Collection Time Receive d Time (Source) Location / / Volume Laterality 07/05/2002 9:36 AM 3 9:37 EDUCATIONAL TECHNOLOGIST AM EDUCATIONAL TECHNOLOGIST Danielle Bender MD LAB_1 Performing Organization Address [facility] Phon e Number [facility] [employer] [phone] [facility] [address] [place] [phone] (ABNORMAL) GLUCOSE - FASTING > 8 HRS FASTING (07/05/2002 9:36 AM EDUCATIONAL TECHNOLOGIST) Analysis Performed At Path logist Time Signature Glucose 128 (H) 70 - 110 [facility] mg/dl Hours Fasting 12 hours [facility] Specimen Anatomical Collection Method Collection Time Receive d Time (Source) Location / / Volume Laterality 07/05/2002 9:36 AM 3 9:37 EDUCATIONAL TECHNOLOGIST AM EDUCATIONAL TECHNOLOGIST Danielle Bender MD LAB_1 Performing Organization Address [facility] Phon e Number [facility] [phone] [phone] CREATININE (07/05/2002 9:36 AM EDUCATIONAL TECHNOLOGIST) athologist Signature Creatinine 0.9 0.5 - 1.2 [facility] mg/dl Specimen Anatomical Collection Method Collection Time Receive d Time (Source) Location / / Volume Laterality 07/05/2002 9:36 AM 3 9:37 EDUCATIONAL TECHNOLOGIST AM EDUCATIONAL TECHNOLOGIST Danielle Bender MD LAB_1 Performing Organization Address [facility] Phon e Number [facility] [phone] [phone] CHOLESTEROL LIPID PANEL FAST >12HR FAST (07/05/2002 9:36 AM EDUCATIONAL TECHNOLOGIST) athologist Signature Cholesterol 193 <200 mg/dl [facility] Triglyceride 126 <200 mg/dl [facility] HDL 40 >35 mg/dl [facility] LDL, Calc. 128 mg/dl [facility] Hours Fasting 12 hours [facility] Specimen Anatomical Collection Method Collection Time Receive d Time (Source) Location / / Volume Laterality 07/05/2002 9:36 AM 3 9:37 EDUCATIONAL TECHNOLOGIST AM EDUCATIONAL TECHNOLOGIST Danielle Bender MD LAB_1 Performing Organization Address [facility] Phon e Number [facility] [employer] [phone] [facility] [address] [place] [phone] (ABNORMAL) BUN (07/05/2002 9:36 AM EDUCATIONAL TECHNOLOGIST) P athologist Signature BUN 9 (L) 10 - 26 [facility] mg/dl Specimen Anatomical Collection Method Collection Time Receive d Time (Source) Location / / Volume Laterality 07/05/2002 9:36 AM 3 9:37 EDUCATIONAL TECHNOLOGIST AM EDUCATIONAL TECHNOLOGIST Danielle Bender MD LAB_1 Performing Organization Address [facility] Phon e Number [facility] [phone] [phone] AST (SGOT) (07/05/2002 9:36 AM EDUCATIONAL TECHNOLOGIST) P athologist Signature AST (SGOT) 31 <45 U/L [facility] Specimen Anatomical Collection Method Collection Time Receive d Time (Source) Location / / Volume Laterality 07/05/2002 9:36 AM 3 9:37 EDUCATIONAL TECHNOLOGIST AM EDUCATIONAL TECHNOLOGIST Danielle Bender MD LAB_1 Performing Organization Address [facility] Phon e Number [facility] [phone] [phone] ALT (SGPT) (07/05/2002 9:36 AM EDUCATIONAL TECHNOLOGIST) P athologist Signature ALT (SGPT) 34 0 - 55 U/L [facility] Specimen Anatomical Collection Method Collection Time Receive d Time (Source) Location / / Volume Laterality 07/05/2002 9:36 AM 3 9:37 EDUCATIONAL TECHNOLOGIST AM EDUCATIONAL TECHNOLOGIST Danielle Bender MD LAB_1 Performing Organization Address [facility] Code Phon e Number [facility] [phone] [facility] [address] [place] [phone] TSH, SENSITIVE (07/05/2002 9:36 AM EDUCATIONAL TECHNOLOGIST) P athologist Signature TSH 4.24 0.30 - 5.00 [facility] uIU/ml Thyroid Meds No [facility] Specimen Anatomical Collection Method Collection Time Receive d Time (Source) Location / / Volume Laterality 07/05/2002 9:36 AM 3 9:37 EDUCATIONAL TECHNOLOGIST AM EDUCATIONAL TECHNOLOGIST Danielle Bender MD LAB_1 Performing Organization Address [facility] Phon e Number [facility] [phone] [facility] [facility] [address] [phone] FSH (07/05/2002 9:36 AM EDUCATIONAL TECHNOLOGIST) [facility] gist Method Time Signature FSH 4.4 mIU/ml [facility] FSH Expected Values- [facility] Prepubertal: ??<5.0 Follicular: ??2.5-10.2 Midcycle: ??3.4-33.4 Luteal: ??1.5-9.1 Postmenopausal: ??23.0-116.3 Specimen Anatomical Collection Method Collection Time Receive d Time (Source) Location / / Volume Laterality 07/05/2002 9:36 AM 3 9:37 EDUCATIONAL TECHNOLOGIST AM EDUCATIONAL TECHNOLOGIST Danielle Bender MD LAB_1 Performing Organization Address [facility] Phon e Number [facility] [phone] [facility] [address] [place] [phone] ESTRADIOL (07/05/2002 9:36 AM EDUCATIONAL TECHNOLOGIST) [facility] gist Method Time Signature Estradiol 85 pg/ml [facility] Estradiol Expected Values- [facility] Follicular: ??19-83 Midcycle: ??15-528 Luteal: ??58-157 Postmenopausal: ??<32 Prepubertal: ??<15 Specimen Anatomical Collection Method Collection Time Receive d Time (Source) Location / / Volume Laterality 07/05/2002 9:36 AM 3 9:37 EDUCATIONAL TECHNOLOGIST AM EDUCATIONAL TECHNOLOGIST Danielle Bender MD LAB_1 Performing Organization Address [facility] Phon e Number [facility] [phone] [facility] [address] [place] [phone] (ABNORMAL) HEMOGRAM (07/05/2002 9:36 AM EDUCATIONAL TECHNOLOGIST) athologist Signature WBC 7.3 3.6 - 11.0 [facility] k/ul RBC 4.54 4.0 - 5.2 [facility] M/ul Hemoglobin 13.9 12.0 - [facility] 16.0 g/dl HCT 40.3 36.0 - [facility] 46.0 % MCV 88.6 80 - 100 [facility] fl MCH 30.6 26 - 34 pg [facility] MCHC 34.6 32 - 36 % [facility] RDW 14.9 (H) 11.5 - [facility] 14.5 % Specimen Anatomical Collection Method Collection Time Receive d Time (Source) Location / / Volume Laterality 07/05/2002 9:36 AM 3 9:37 EDUCATIONAL TECHNOLOGIST AM EDUCATIONAL TECHNOLOGIST Danielle Bender MD LAB_1 Performing Organization Address [facility] Phon e Number [facility] [phone] [phone] documented in this encounter Visit Diagnoses Not on filedocumented in this encounter Care Teams Accounting Professor Relationship Specialty Start Date End Date Danielle Bender MD PCP - General 04/09/01 08/07/[address] [place] [address] documented as of this encounter
--- OUTSIDE RECORDS SUMMARY | 2022-02-08 14:30 | XMS_ITS | Encounter Summary ---
:1960 Author Organization [employer] Address [address] [place] [address] Care Team Providers Name Role Phone Danielle Bender MD Primary Care Provider Encounter Details Date Type Department Care Team Description 03/24/2003 Office Visit [place] Danielle Bender FOLLO W-UP EXAM NEC; Internal Medicine PREVENTIVE CARE EXAM 1430 [facility] 96 1430 [facility] [address] [place] [address] [phone] (Wo rk) Social History Tobacco Use Types [...] Body Mass Index 38.27 07/01/2002 3:00 PM GARMENT SEWING MACHINE OPERATOR documented in this encounter Progress Notes 03/24/2003 [...] follow-up examination Routine general medical examination at [facility] Routine general medical examination at [facility] documented in this encounter Care Teams Works Manager Relationship Specialty Start Date End Date Danielle Bender MD PCP - General 04/09/01 08/07/10 1430 [facility] [address] [place] [address] documented as of this encounter
--- OUTSIDE RECORDS SUMMARY | 2022-02-08 14:30 | XMS_ITS | Encounter Summary ---
:1960 Author Organization [employer] Address [address] [place] [address] Care Team Providers Name Role Phone Danielle Bender MD Primary Care Provider Reason for Visit Reason Comments IMMUNIZATIONS Encounter Details Date Type Department Care Team Description 05/15/2004 Office Visit [facility] VACC INE FOR INFLUENZA Department [address] [address] Social History Tobacco Use Types Packs/Day Years Used Date Smoking Tobacco: Never Alcohol Use Standard Drinks/Week Comments Yes 0 (1 standard drink = 0.6 oz pure alcoho l) mod Sex Assigned at Date Recorded Not on file documented as of this encounter Progress Notes 05/15/2004 3:45 PM NEWSPAPER REPORTER SUBJECTIVE: Severe allergy to eggs: no Previous severe reaction to thimerosal : no History of paralysis with Guillian [place]: no Ill appearing with increased respiratory rate, [...] influenza documented in this encounter Care Teams Lithograph Operator Relationship Specialty Start Date End Date Danielle Bender MD PCP - General 04/09/01 08/07/10 1430 [facility] [address] [place] [address] documented as of this encounter
--- OUTSIDE RECORDS SUMMARY | 2022-02-08 14:30 | XMS_ITS | Encounter Summary ---
:1960 Author Organization [employer] Address [address] [place] [address] Care Team Providers Name Role Phone Danielle Bender MD Primary Care Provider Encounter Details Date Type Department Care Team Description 07/09/2002 Office Visit [place] [facility] Danielle Bender MD Medicine 1430 [facility] [address] [address] [phone] (Wo rk) Social History Tobacco Use Types Packs/Day Years Used Date Smoking Tobacco: Never Assessed Sex Assigned at Date Recorded Not on file documented as of this encounter Progress Notes Danielle Bender - 07/09/2002 12:00 AM CHURCH SECRETARY CH SECRETARY documented in this encounter Plan of Treatment Not on filedocumented as of this encounter Visit Diagnoses Not on filedocumented in this encounter Care Teams Software Sales Representative Relationship Specialty Start Date End Date Danielle Bendre MD PCP - General 04/09/01 08/07/10 1430 [facility] [address] [place] [address] documented as of this encounter
--- OUTSIDE RECORDS SUMMARY | 2022-02-08 14:30 | XMS_ITS | Encounter Summary ---
:1960 Author Organization [employer] Address [address] [place] [address] Care Team Providers Name Role Phone Danielle Bender MD Primary Care Provider Encounter Details Date Type Department Care Team Description 02/09/2002 Office Visit [facility]gent [facility] ury SIALOADENITIS [address] [place] [address] Social History Tobacco Use Types [...] Sialoadenitis documented in this encounter Care Teams Medical Assistant Relationship Specialty Start Date End Date Danielle Bender MD PCP - General 04/09/01 08/07/10 [address] [place] [address] documented as of this encounter
--- OUTSIDE RECORDS SUMMARY | 2022-02-08 14:30 | XMS_ITS | Encounter Summary ---
:1960 Author Organization [employer] Address [address], [place] [address] Care Team Providers Name Role Phone Danielle Bender MD Primary Care Provider Encounter Details Date Type Department Care Team Description 12/14/2002 Office Visit [place] Velma Dozier, RECTAL & ANAL HEMORRHAGE; electrical electronics engineer FOLLOW-UP EXAM NEC; [facility] [place] [address] [facility] OBESITY NOS; [place] CLINIC SEBORRHEIC DERMATITIS NOS [address] [place] [address] [place] [address] Social History Tobacco Use Types Packs/Day Years [...] Body Mass Index 44.26 07/01/2002 3:00 PM 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 Are you having other pain today, that you want to discuss with the provider? -YES Preventive Services up to date? -ADVISED TO FOLLOW UP WITH PRIMARY CARE PROVIDER Immunizations up to date? -{YES/NO,NEEDS:01949} Do you ever feel physically threatened or emotionally afraid? -{TYPE OF ABUSE:39116} Tobacco Status reviewed? (see History Social-Substance) -YES poolroom table attendant offered? -NOT APPLICABLE. Aspirin taken daily? -NO BP was taken on the RIGHT arm. Large cuff used? -YES Health Education given? -NO. Contact phone number [phone] (home) [phone] (work), alternate phone number . Samantha Roberts [...] unspecified documented in this encounter Care Teams Bioinformatics Associate Relationship Specialty Start Date End Date Danielle Bender MD PCP - General 04/09/01 08/07/[address] [place] [address] documented as of this encounter
--- OUTSIDE RECORDS SUMMARY | 2022-02-08 14:31 | XMS_ITS | Encounter Summary ---
:1960 Author Organization [employer] Address [address] [place] [address] Care Team Providers Name Role Phone Olamide Rodney MD Primary Care Provider Encounter Details Date Type Department Care Team Description 07/20/2001 Orders Only Deloris Newman MD [address] [place], [place] [phone] [place], [place] [phone] (Wo rk) Social History Tobacco Use Types Packs/Day Years Used Date Smoking Tobacco: Never Assessed Sex Assigned at Date Recorded Not on file documented as of this encounter Plan of Treatment Not on filedocumented as of this encounter Procedures Procedure Name Priority Date/Time Associated Diagnosis Comme nts INR/PROTIME Routine 07/20/2001 9:10 AM Results f or this MARKETING SERVICES COORDINATOR procedure are i n the results section . documented in this encounter Results (ABNORMAL) PROTIME (07/20/2001 9:10 AM MARKETING SERVICES COORDINATOR) P athologist Signature Protime 26.0 (H) 10.2 - 13.8 [facility] sec Coumadin Yes [facility] INR 2.2 [facility] Specimen Anatomical Collection Method Collection Time Receive d Time (Source) Location / / Volume Laterality 07/20/2001 9:10 AM 200 2 9:36 MARKETING SERVICES COORDINATOR AM MARKETING SERVICES COORDINATOR Deloris Chirinos MD LAB_1 Performing Organization Address City/State/ZIP Code Phon e Number [facility] [phone] [phone] documented in this encounter Visit Diagnoses Not on filedocumented in this encounter Care Teams Software Quality Engineer Relationship Specialty Start Date End Date Olamide Rodney MD PCP - General 09/25/10 01/11/21 [address] [place], [place] [address] documented as of this encounter
--- OUTSIDE RECORDS SUMMARY | 2022-02-08 14:31 | XMS_ITS | Encounter Summary ---
:1960 Author Organization [employer] Address [address] [place] [address] Care Team Providers Name Role Phone Danielle Bender MD Primary Care Provider Encounter Details Date Type Department Care Team Description 09/14/2001 Office Visit [place] TAVO Vidal LEG NOS Internal Medicine MD Tio 1430 [facility] [address] [place] [address] [phone] Social History Tobacco Use Types Packs/Day Years [...] counseling. IN SUMMARY: LEFT CALF PAIN. cc: NUE CYCLE CONSULTANT documented in this encounter Plan of Treatment Not on filedocumented as of this encounter Visit Diagnoses Diagnosis Phlebitis and thrombophlebitis of lower extremities, unspecified documented in this encounter Care Teams Surveyor Helper Rod Relationship Specialty Start Date End Date Danielle Bender MD PCP - General 04/09/01 08/07/10 1430 [facility] [address] [place] [address] documented as of this encounter
--- OUTSIDE RECORDS SUMMARY | 2022-02-08 14:31 | XMS_ITS | Encounter Summary ---
:1960 Author Organization [facility] Address [address] [place] [address] Care Team Providers Name Role Phone Olamide Rodney MD Primary Care Provider Encounter Details Date Type Department Care Team Description 06/26/2001 Orders Only Deloris Newman MD [address] [place], [place] [address] [place], [place] [phone] (Wo rk) Social History Tobacco Use Types Packs/Day Years Used Date Smoking Tobacco: Never Assessed Sex Assigned at Date Recorded Not on file documented as of this encounter Plan of Treatment Not on filedocumented as of this encounter Procedures Procedure Name Priority Date/Time Associated Diagnosis Comme nts INR/PROTIME Routine 06/26/2001 8:25 AM Results f or this CATTLE KILLER procedure are i n the results section . documented in this encounter Results (ABNORMAL) PROTIME (06/26/2001 8:25 AM CATTLE KILLER) P athologist Signature Protime 25.8 (H) 10.2 - 13.8 [facility] sec Coumadin Yes [facility] IN[facility] 2.2 [facility] Specimen Anatomical Collection Method Collection Time Receive d Time (Source) Location / / Volume Laterality 06/26/2001 8:25 AM 2 9:13 CATTLE KILLER AM CATTLE KILLER Deloris Chirinos MD LAB_1 Performing Organization Address City/State/ZIP Code Phon e Number [facility] [phone] [address] documented in this encounter Visit Diagnoses Not on filedocumented in this encounter Care Teams Rug Dry Room Attendant Relationship Specialty Start Date End Date Olamide Rodney MD PCP - General 09/25/10 01/11/21 [address] [place], [place] [address] documented as of this encounter
--- OUTSIDE RECORDS SUMMARY | 2022-02-08 14:31 | XMS_ITS | Encounter Summary ---
:1960 Author Organization [facility] Address [address] [place] [address] Care Team Providers Name Role Phone Danielle Bender MD Primary Care Provider Encounter Details Date Type Department Care Team Description 06/26/2001 Office Visit [facility] THRO MBOPHLEBITIS LEG NOS Department [address] [place] [address] Social History Tobacco Use Types Packs/Day Years Used Date Smoking Tobacco: Never Assessed Sex Assigned at Date Recorded Not on file documented as of this encounter Plan of Treatment Not on filedocumented as of this encounter Visit Diagnoses Diagnosis Phlebitis and thrombophlebitis of lower extremities, unspecified documented in this encounter Care Teams Office Support Associate Relationship Specialty Start Date End Date Danielle Bender MD PCP - General 04/09/01 08/07/10 1430 [facility] [address] [place] [address] documented as of this encounter
--- OUTSIDE RECORDS SUMMARY | 2022-02-08 14:31 | XMS_ITS | Encounter Summary ---
:1960 Author Organization [facility] Address [address] [place] [address] Care Team Providers Name Role Phone Olamdie Rodney MD Primary Care Provider Encounter Details Date Type Department Care Team Description 06/22/2001 Orders Only Deloris Newman MD [address] [place], [place] [address] [place], [place] [id number] (Wo rk) Social History Tobacco Use Types Packs/Day Years Used Date Smoking Tobacco: Never Assessed Sex Assigned at Date Recorded Not on file documented as of this encounter Plan of Treatment Not on filedocumented as of this encounter Procedures Procedure Name Priority Date/Time Associated Diagnosis Comme nts INR/PROTIME Routine 06/22/2001 9:28 AM Results f or this INTERCHANGE AGENT procedure are i n the results section . documented in this encounter Results (ABNORMAL) PROTIME (06/22/2001 9:28 AM INTERCHANGE AGENT) P athologist Signature Protime 14.3 (H) 10.2 - 13.8 [facility] sec Coumadin Yes [facility] INR 1.2 [facility] Specimen Anatomical Collection Method Collection Time Receive d Time (Source) Location / / Volume Laterality 06/22/2001 9:28 AM 1 9:54 INTERCHANGE AGENT AM INTERCHANGE AGENT Deloris Chirinos MD LAB_1 Performing Organization Address City/State/ZIP Code Phon e Number [facility] [phone] [address] documented in this encounter Visit Diagnoses Not on filedocumented in this encounter Care Teams Telecom Coordinator Relationship Specialty Start Date End Date Olamide Rodney MD PCP - General 09/25/10 01/11/21 [address] [place], [place] [address] documented as of this encounter
--- OUTSIDE RECORDS SUMMARY | 2022-02-08 14:31 | XMS_ITS | Encounter Summary ---
:1960 Author Organization [facility] Address [address] [place] [address] Care Team Providers Name Role Phone Olamide Rodney MD Primary Care Provider Encounter Details Date Type Department Care Team Description 06/24/2001 Orders Only Deloris Newman MD [address] [place], [place] [phone] [place], [place] [phone] (Wo rk) Social History Tobacco Use Types Packs/Day Years Used Date Smoking Tobacco: Never Assessed Sex Assigned at Date Recorded Not on file documented as of this encounter Plan of Treatment Not on filedocumented as of this encounter Procedures Procedure Name Priority Date/Time Associated Diagnosis Comme nts INR/PROTIME Routine 06/24/2001 9:27 AM Results f or this ELECTRIC TOOL REPAIRER procedure are i n the results section . documented in this encounter Results (ABNORMAL) PROTIME (06/24/2001 9:27 AM ELECTRIC TOOL REPAIRER) P athologist Signature Protime 18.1 (H) 10.2 - 13.8 [facility] sec Coumadin Yes [facility] INR 1.5 [facility] Specimen Anatomical Collection Method Collection Time Receive d Time (Source) Location / / Volume Laterality 06/24/2001 9:27 AM 2 9:28 ELECTRIC TOOL REPAIRER AM ELECTRIC TOOL REPAIRER Deloris Chirinos MD LAB_1 Performing Organization Address City/State/ZIP Code Phon e Number [facility] [phone] [address] documented in this encounter Visit Diagnoses Not on filedocumented in this encounter Care Teams Gasoline Plant Operator Relationship Specialty Start Date End Date Olamide Rodney MD PCP - General 09/25/10 01/11/21 [address] [place], [place] [address] documented as of this encounter
--- OUTSIDE RECORDS SUMMARY | 2022-02-08 14:31 | XMS_ITS | Encounter Summary ---
:1960 Author Organization [facility] Address [address] [place] [address] Care Team Providers Name Role Phone Danielle Bender MD Primary Care Provider Encounter Details Date Type Department Care Team Description 06/25/[address] [facility] [address] [facility] VENOUS THROMBOSIS [address] [place] [address] Social History Tobacco Use Types Packs/Day Years Used Date Smoking Tobacco: Never Assessed Sex Assigned at Date Recorded Not on file documented as of this encounter Plan of Treatment Not on filedocumented as of this encounter Visit Diagnoses Diagnosis Other acute embolism veins Acute venous embolism and thrombosis of other specified veins documented in this encounter Care Teams Fire Supervisor Relationship Specialty Start Date End Date Danielle Bender MD PCP - General 04/09/01 08/07/[address] [place] [address] documented as of this encounter
--- OUTSIDE RECORDS SUMMARY | 2022-02-08 14:31 | XMS_ITS | Encounter Summary ---
:1960 Author Organization [facility] Address [address] [place] [address] Care Team Providers Name Role Phone Danielle Bender MD Primary Care Provider Encounter Details Date Type Department Care Team Description 11/06/2001 Office Visit Radha Soto RN Social History Tobacco Use Types Packs/Day Years Used Date Smoking Tobacco: Never Assessed Sex Assigned at Date Recorded Not on file documented as of this encounter Progress Notes Radah Soto - 11/06/2001 12:00 AM CDTShe is [...] on filedocumented in this encounter Care Teams Square Cutter Relationship Specialty Start Date End Date Danielle Bender MD PCP - General 04/09/01 08/07/[address] [place] [address] documented as of this encounter
--- OUTSIDE RECORDS SUMMARY | 2022-02-08 14:31 | XMS_ITS | Encounter Summary ---
:1960 Author Organization [facility] Address [address] [place] [address] Care Team Providers Name Role Phone Danielle Bender MD Primary Care Provider Encounter Details Date Type Department Care Team Description 09/09/2001 Office Visit [place] Deloris Chirinos THROMBOPH LEBITIS LEG NOS; Internal Medicine MD Gilberto DIABETES UNCOMPL ADULT-TYPE II [address] [place], [place] [address] [place] [address] [phone] Social History Tobacco Use Types Packs/Day Years [...] DVT, DIABETES MELLITUS TYPE II, OBESITY. cc: RVISOR LENS GENERATING documented in this encounter Plan of Treatment Not on filedocumented as of this encounter Visit Diagnoses Diagnosis Phlebitis and thrombophlebitis of lower extremities, unspecified Type II or unspecified type diabetes rod litus without mention of complication, not stated as uncontrolled documented in this encounter Care Teams Metropolitan Editor Relationship Specialty Start Date End Date Danielle Bender MD PCP - General 04/09/01 08/07/[address] [place] [address] documented as of this encounter
--- OUTSIDE RECORDS SUMMARY | 2022-02-08 14:31 | XMS_ITS | Encounter Summary ---
:1960 Author Organization [facility] Address [address] [place] [address] Care Team Providers Name Role Phone Danielle Bender MD Primary Care Provider Encounter Details Date Type Department Care Team Description 06/23/[address] [facility] [address] [facility] VENOUS THROMBOSIS [address] [place] [address] Social History Tobacco Use Types Packs/Day Years Used Date Smoking Tobacco: Never Assessed Sex Assigned at Date Recorded Not on file documented as of this encounter Plan of Treatment Not on filedocumented as of this encounter Visit Diagnoses Diagnosis Other acute embolism veins Acute venous embolism and thrombosis of other specified veins documented in this encounter Care Teams Estate Conservator Relationship Specialty Start Date End Date Danielle Bender MD PCP - General 04/09/01 08/07/[address] [place] [address] documented as of this encounter
--- OUTSIDE RECORDS SUMMARY | 2022-02-08 14:31 | XMS_ITS | Encounter Summary ---
:1960 Author Organization [facility] Address [address] [place] [address] Care Team Providers Name Role Phone Danielle Bender MD Primary Care Provider Encounter Details Date Type Department Care Team Description 10/15/2001 Orders Only Deloris Chirinos MD [address] [place] [address] (Wo rk) Social History Tobacco Use [...] Results (ABNORMAL) PROTIME (10/15/2001 9:08 AM CDT) [facility] [employer] gist Method Time Signature Protime 20.2 (H) [...] City/State/ZIP Code Phon e Number [facility] [phone] [facility] [address] [place] [address] documented in this encounter Visit Diagnoses Not on filedocumented in this encounter Care Teams Highway Maintenance Crew Worker Relationship Specialty Start Date End Date Danielle Bender MD PCP - General 04/09/01 08/07/[address] [place] [address] documented as of this encounter
--- OUTSIDE RECORDS SUMMARY | 2022-02-08 14:31 | XMS_ITS | Encounter Summary ---
:1960 Author Organization [facility] Address [address] [place] [address] Care Team Providers Name Role Phone Danielle Bender MD Primary Care Provider Encounter Details Date Type Department Care Team Description 06/24/2001 Office Visit [place] Deloris Chirinos, VENOUS THROMBOSIS NEC Internal Medicine [address] [place] [address] [address] [place] [address] [phone] Social History Tobacco Use Types Packs/Day Years [...] and cardiolipin antibodies, homocysteine level and protein REAL ESTATE TEACHER. IN SUMMARY: RIGHT LEG DEEP VENOUS THROMBOSIS cc: RAL ARTS AND HUMANITIES CHAIR documented in this encounter Plan of Treatment Not on filedocumented as of this encounter Visit Diagnoses Diagnosis Other acute embolism veins Acute venous embolism and thrombosis of other specified veins documented in this encounter Care Teams Automobile Rental Clerk Relationship Specialty Start Date End Date Danielle Bender MD PCP - General 04/09/01 08/07/[address] [place] [address] documented as of this encounter
--- OUTSIDE RECORDS SUMMARY | 2022-02-08 14:31 | XMS_ITS | Encounter Summary ---
:1960 Author Organization [facility] Address [address] [place] [address] Care Team Providers Name Role Phone Danielle Bender MD Primary Care Provider Encounter Details Date Type Department Care Team Description 09/09/2001 Office Visit [facility] LUDMILA BETES UNCOMPL ADULT-TYPE II; Program COUNSELING, DIETARY [address] [place] [address] Social History Tobacco Use Types Packs/Day Years [...] counseling documented in this encounter Care Teams Fulfillment Specialist Relationship Specialty Start Date End Date Danielle Bender MD PCP - General 04/09/01 08/07/[address] [place] [address] documented as of this encounter
--- OUTSIDE RECORDS SUMMARY | 2022-02-08 14:31 | XMS_ITS | Encounter Summary ---
:1960 Author Organization [facility] Address [address] [place] [address] Care Team Providers Name Role Phone Danielle Bender MD Primary Care Provider Reason for Visit Reason Comments LAB RESULTS Encounter Details Date Type Department Care Team Description 07/10/2001 Telephone Careline Munir Leger, WINE MANAGER RESULTS [address] [place], [place] [address] [place] [address] [phone] Social History Tobacco Use Types Packs/Day Years Used Date Smoking Tobacco: Never Assessed Sex Assigned at Date Recorded Not on file documented as of this encounter Nursing Notes 07/10/2001 11:59 PM SACK SEWER >> MUNIR CHAVIRA FriJul 10, 2001 5:26 [...] nurse calling: Salima Phone numbers for patient: [phone] Diagnosis: DVT Desired Therapeutic Range: 2.0 - [...] and recheck INR Friday07-20-00. Clinic phone number: [phone] Clinic Fax number: [phone]. Pt to call clinic nurse if gets message before 5pm otherwise careline nurse is to try and reach herafter 5pm nurse stated. documented in this encounter Plan of Treatment Not on filedocumented as of this encounter Visit Diagnoses Not on filedocumented in this encounter Care Teams Brush Filler Hand Relationship Specialty Start Date End Date Danielle Bender MD PCP - General 04/09/01 08/07/10 1430 [facility] [address] [place] [address] documented as of this encounter
--- OUTSIDE RECORDS SUMMARY | 2022-02-08 14:31 | XMS_ITS | Encounter Summary ---
:1960 Author Organization [facility] Address [address] [place] [address] Care Team Providers Name Role Phone Danielle Bender MD Primary Care Provider Encounter Details Date Type Department Care Team Description 06/25/2001 Office Visit [facility] THRO MBOPHLEBITIS LEG NOS Department [address] [place] [address] Social History Tobacco Use Types Packs/Day Years Used Date Smoking Tobacco: Never Assessed Sex Assigned at Date Recorded Not on file documented as of this encounter Plan of Treatment Not on filedocumented as of this encounter Visit Diagnoses Diagnosis Phlebitis and thrombophlebitis of lower extremities, unspecified documented in this encounter Care Teams In Home Aide Relationship Specialty Start Date End Date Danielle Bender MD PCP - General 04/09/01 08/07/10 1430 [facility] [address] [place] [address] documented as of this encounter
--- OUTSIDE RECORDS SUMMARY | 2022-02-08 14:31 | XMS_ITS | Encounter Summary ---
:1960 Author Organization [facility] Address [address] [place] [address] Care Team Providers Name Role Phone Danielle Bender MD Primary Care Provider Encounter Details Date Type Department Care Team Description 11/23/2001 Orders Only Deloris Chirinos MD [address] [place] [address] (Wo rk) Social History Tobacco Use [...] Results (ABNORMAL) PROTIME (11/23/2001 8:17 AM CDT) [facility] gist Method Time Signature Protime 24.4 (H) [...] City/State/ZIP Code Phon e Number [facility] [phone] [facility] [address] [place] [address] documented in this encounter Visit Diagnoses Not on filedocumented in this encounter Care Teams Director Of Capital Giving Relationship Specialty Start Date End Date Danielle Bender MD PCP - General 04/09/01 08/07/[address] [place] [address] documented as of this encounter
--- OUTSIDE RECORDS SUMMARY | 2022-02-08 14:31 | XMS_ITS | Encounter Summary ---
:1960 Author Organization [facility] Address [address] [place] [address] Care Team Providers Name Role Phone Danielle Bender MD Primary Care Provider Encounter Details Date Type Department Care Team Description 10/30/2001 Orders Only Deloris Chirinos MD [address] [address] (Wo rk) Social History Tobacco Use [...] Results (ABNORMAL) PROTIME (10/30/2001 8:59 AM CDT) [facility] gist Method Time Signature Protime 25.9 [...] City/State/ZIP Code Phon e Number [facility] [phone] [facility] [address] [place] [address] documented in this encounter Visit Diagnoses Not on filedocumented in this encounter Care Teams Tractor Crane Operator Relationship Specialty Start Date End Date Danielle Bender MD PCP - General 04/09/01 08/07/[address] [place] [address] documented as of this encounter
--- OUTSIDE RECORDS SUMMARY | 2022-02-08 14:31 | XMS_ITS | Encounter Summary ---
:1960 Author Organization [facility] [employer] Address [address] [place] [address] Care Team Providers Name Role Phone Danielle Bender MD Primary Care Provider Encounter Details Date Type Department Care Team Description 07/01/2001 Office Visit [facility] DIABETES UNCOMPL ADULT-TYPE II; Diabetes Program [facility], [address] [place] [address] [phone] Social History Tobacco Use Types Packs/Day Years [...] NOS documented in this encounter Care Teams Trial Paralegal Relationship Specialty Start Date End Date Danielle Bender MD PCP - General 04/09/01 08/07/[address] [place] [address] documented as of this encounter
--- OUTSIDE RECORDS SUMMARY | 2022-02-08 14:31 | XMS_ITS | Encounter Summary ---
:1960 Author Organization [facility] Address [address] [place] [address] Care Team Providers Name Role Phone Danielle Bender MD Primary Care Provider Encounter Details Date Type Department Care Team Description 09/14/2001 Orders Only Deloris Chirinos MD [address] [address] (Wo rk) Social History Tobacco Use Types Packs/Day Years Used Date Smoking Tobacco: Never Assessed Sex Assigned at Date Recorded Not on file documented as of this encounter Plan of Treatment Not on filedocumented as of this encounter Procedures Procedure Name Priority Date/Time Associated Diagnosis Comme nts INR/PROTIME Routine 09/14/2001 11:32 AM Results for this BERRY PICKER procedure are i n the results section . documented in this encounter Results (ABNORMAL) PROTIME (09/14/2001 11:32 AM BERRY PICKER) P athologist Signature Protime 24.1 (H) 10.2 - 13.8 [facility] sec Coumadin Yes [facility] IN[facility] 2.1 [facility] Specimen Anatomical Collection Method Collection Time Receive d Time (Source) Location / / Volume Laterality 09/14/2001 11:32 09/14/2001 AM BERRY PICKER 11:50 AM BERRY PICKER Deloris Chirinos MD LAB_1 Performing Organization Address City/State/ZIP Code Phon e Number [facility] [phone] [facility] [address] [phone] documented in this encounter Visit Diagnoses Not on filedocumented in this encounter Care Teams Philosophy Faculty Member Relationship Specialty Start Date End Date Danielle Bender MD PCP - General 04/09/01 08/07/[address] [place] [address] documented as of this encounter
--- OUTSIDE RECORDS SUMMARY | 2022-02-08 14:31 | XMS_ITS | Encounter Summary ---
:1960 Author Organization [facility] Address [address] [place] [address] Care Team Providers Name Role Phone Danielle Bender MD Primary Care Provider Encounter Details Date Type Department Care Team Description 11/06/2001 Orders Only Deloris Chirinos MD [address] [address] (Wo rk) Social History Tobacco Use [...] Results (ABNORMAL) PROTIME (11/06/2001 9:02 AM CDT) [facility] gist Method Time Signature Protime 24.4 [...] City/State/ZIP Code Phon e Number [facility] [phone] [facility] [address] [place] [phone] documented in this encounter Visit Diagnoses Not on filedocumented in this encounter Care Teams Telephone Operator Receptionist Relationship Specialty Start Date End Date Danielle Bender MD PCP - General 04/09/01 08/07/[address] [place] [address] documented as of this encounter
--- OUTSIDE RECORDS SUMMARY | 2022-02-08 14:31 | XMS_ITS | Encounter Summary ---
:1960 Author Organization [facility] Address [address] [place] [address] Care Team Providers Name Role Phone Danielle Bender MD Primary Care Provider Encounter Details Date Type Department Care Team Description 06/24/[address] [facility] [address] [facility] VENOUS THROMBOSIS [address] [place] [address] Social History Tobacco Use Types Packs/Day Years Used Date Smoking Tobacco: Never Assessed Sex Assigned at Date Recorded Not on file documented as of this encounter Plan of Treatment Not on filedocumented as of this encounter Visit Diagnoses Diagnosis Other acute embolism veins Acute venous embolism and thrombosis of other specified veins documented in this encounter Care Teams Securities Lending Trader Relationship Specialty Start Date End Date Danielle Bender MD PCP - General 04/09/01 08/07/[address] [place] [address] documented as of this encounter
--- OUTSIDE RECORDS SUMMARY | 2022-02-08 14:31 | XMS_ITS | Encounter Summary ---
:1960 Author Organization [facility] Address [address] [place] [address] Care Team Providers Name Role Phone Danielle Bender MD Primary Care Provider Encounter Details Date Type Department Care Team Description 09/02/2001 Office Visit [facility] LUDMILA BETES UNCOMPL ADULT-TYPE II; Program COUNSELING, DIETARY [address] [place] [address] Social History Tobacco Use Types Packs/Day Years [...] counseling documented in this encounter Care Teams Director Of Finance Relationship Specialty Start Date End Date Danielle Bender MD PCP - General 04/09/01 08/07/[address] [place] [address] documented as of this encounter
--- OUTSIDE RECORDS SUMMARY | 2022-02-08 14:31 | XMS_ITS | Encounter Summary ---
:1960 Author Organization [employer] Address [address] [place] [address] Care Team Providers Name Role Phone Olamide Rodney MD Primary Care Provider Encounter Details Date Type Department Care Team Description 09/02/2001 Orders Only Deloris Newman MD [address] [place], [place] [address] [place], [place] [phone] (Wo rk) Social History Tobacco Use Types Packs/Day Years Used Date Smoking Tobacco: Never Assessed Sex Assigned at Date Recorded Not on file documented as of this encounter Plan of Treatment Not on filedocumented as of this encounter Procedures Procedure Name Priority Date/Time Associated Comments Diagnosis COMPLETE BLOOD Routine 09/02/2001 8:40 AM Results for this COUNT-NO DIFF RAT FARMER procedure are in the results section. FACTOR V LEIDEN Routine 09/02/2001 8:40 AM Result s for this RAT FARMER procedure are i n the results section. HOMOCYSTEINE,PLASMA Routine 09/02/2001 8:40 AM Re sults for this RAT FARMER procedure are i n the results section. CARDIOLIPIN AB, IGG & Routine 09/02/2001 8:40 AM Results for this IGM RAT FARMER procedure are i n the results section. HGB A1C Routine 09/02/2001 8:40 AM Results f or this RAT FARMER procedure are i n the results section. LD TOTAL (LDH) Routine 09/02/2001 8:40 AM Results for this RAT FARMER procedure are i n the results section. GLUCOSE - FASTING > 8 Routine 09/02/2001 8:40 AM Results for this HRS FASTING RAT FARMER procedure are i n the results section. ALKALINE PHOSPHATASE, Routine 09/02/2001 8:40 AM Results for this TOTAL RAT FARMER procedure are i n the results section. PTT Routine 09/02/2001 8:40 AM Results f or this RAT FARMER procedure are i n the results section. INR/PROTIME Routine 09/02/2001 8:40 AM Results f or this RAT FARMER procedure are i n the results section. ESR Routine 09/02/2001 8:40 AM Results f or this RAT FARMER procedure are i n the results section. DIFF IF Routine 09/02/2001 8:40 AM Results f or this RAT FARMER procedure are i n the results section. documented in this encounter Results FACTOR V LEIDEN (09/02/2001 8:40 AM RAT FARMER) Component Value Ref Test Analysis Performed At [facility] Range Method Time Signature Mutation SEE BELOW [facility] Analysis Mutation (NOTE) [facility] Analysis RESULT: POSITIVE FOR THE HETEROZYGOUS PRESENCE [...] PERFORMED PURSUANT TO A LICENSE AGREEMENT WITH [email or web address] THIS TEST WAS DEVELOPED AND ITS PERFORMANCE CHARACTERISTICS DETERMINED BY [facility]. IT HAS NOT BEEN CLEARED OR APPROVED BY THE [place]. FOOD AND DRUG ADMINISTRATION. THE FDA HAS DETERMINED THAT SUCH CLEARANCE OR APPROVAL IS NOT NECESSARY. PERFORMANCE CHARACTERISTICS REFER TO THE ANALYTICAL PERFORMANCE OF THE TEST. THIS TEST WAS PERFORMED AT: [facility] [address] [place], [place] ??[address] Comment Referred to [facility], [address] [place] [address] Specimen Anatomical Collection Method Collection Time Receive d Time (Source) Location / / Volume Laterality 09/02/2001 8:40 AM 2 8:41 RAT FARMER AM RAT FARMER Deloris Chirinos MD LAB_1 Performing Organization Address City/State/ZIP Code Phon e Number [facility] [phone] [address] CARDIOLIPIN AB, IGG & IGM (09/02/2001 8:40 AM RAT FARMER) Component Value Ref Test Analysis Performed At [facility] gist Range Method Time Signature Cardiolipin Ab <20.0 GPL [facility] IgG Cardiolipin Ab Reference range: [facility] IgG <20 Cardiolipin <20.0 MPL [facility] Ab,IgM Cardiolipin Reference range: [facility] ERS Ab,IgM <20 Cardiolipin (NOTE) [facility] Ab,IgM ANTIBODY TO CARDIOLIPIN IS MOST COMMONLY ASSOCIATED WITH CEREBROVASCULAR ACCIDENT, MYOCARDIAL INFARCTION, DEEP VEIN THROMBOSIS AND IDIOPATHIC . ??THESE FEATURES ARE REFERRED TO THE ANTI-PHOSPHOLIPID SYNDROME, AND MAY ALSO BE ASSOCIATED WITH ANTI-LUPUS ANTICOAGULANT ANTIBODIES. Comment Referred to [facility], [address] [place] [address] Specimen Anatomical Collection Method Collection Time Receive d Time (Source) Location / / Volume Laterality 09/02/2001 8:40 AM 2 8:41 RAT FARMER AM RAT FARMER Deloris Chirinos MD LAB_1 Performing Organization Address City/[facility]/ZIP Code Phon e Number [facility] [phone] [facility] [address] [place] [phone] HOMOCYSTEINE,PLASMA (09/02/2001 8:40 AM RAT FARMER) [facility] Method Time Signature Homocysteine, 8.6 MICRO [facility] Plasma MOL/L Homocysteine, Reference [facility] Plasma range: <10.4 Comment Referred to [facility], [address] [place] [address] Specimen Anatomical Collection Method Collection Time Receive d Time (Source) Location / / Volume Laterality 09/02/2001 8:40 AM 2 8:41 RAT FARMER AM RAT FARMER Deloris Chirinos MD LAB_1 Performing Organization Address City/[facility] Code Phon e Number [facility] [phone] [facility] [address] [place] [phone] (ABNORMAL) ESR (09/02/2001 8:40 AM RAT FARMER) athologist Signature ESR 34 (H) 0 - 20 [facility] mm/hr Specimen Anatomical Collection Method Collection Time Receive d Time (Source) Location / / Volume Laterality 09/02/2001 8:40 AM 2 8:41 RAT FARMER AM RAT FARMER Deloris Chirinos MD LAB_1 Performing Organization Address [facility] Phon e Number [facility] [phone] [facility] [address] [place] [phone] DIFF IF (09/02/2001 8:40 AM RAT FARMER) [facility] Method Time Signature Diff If Diff Not [facility] Indicated Specimen Anatomical Collection Method Collection Time Receive d Time (Source) Location / / Volume Laterality 09/02/2001 8:40 AM 2 8:41 RAT FARMER AM RAT FARMER Deloris Chirinos MD LAB_1 Performing Organization Address [facility] Phon e Number [facility] [phone] [address] HGB A1C (09/02/2001 8:40 AM RAT FARMER) athologist Signature Hgb A1c 5.9 4.3 - 6.1 % [facility] Specimen Anatomical Collection Method Collection Time Receive d Time (Source) Location / / Volume Laterality 09/02/2001 8:40 AM 2 8:41 RAT FARMER AM RAT FARMER Deloris Chirinos MD LAB_1 Performing Organization Address [facility] Phon e Number [facility] [phone] [phone] LD TOTAL(LDH) (09/02/2001 8:40 AM RAT FARMER) athologist Signature LD 165 <194 U/L [facility] Specimen Anatomical Collection Method Collection Time Receive d Time (Source) Location / / Volume Laterality 09/02/2001 8:40 AM 2 8:41 RAT FARMER AM RAT FARMER Deloris Chirinos MD LAB_1 Performing Organization Address [facility] Code Phon e Number [facility] [phone] [address] GLUCOSE - FASTING > 8 HRS FASTING (09/02/2001 8:40 AM RAT FARMER) athologist Signature Glucose 102 70 - 110 [facility] mg/dl Hours Fasting 12 hours [facility] Specimen Anatomical Collection Method Collection Time Receive d Time (Source) Location / / Volume Laterality 09/02/2001 8:40 AM 2 8:41 RAT FARMER AM RAT FARMER Deloris Chirinos MD LAB_1 Performing Organization Address [facility] Phon e Number [facility] [phone] [phone] ALK P'TASE, TOTAL (09/02/2001 8:40 AM RAT FARMER) Analysis Performed At Patho logist Time Signature Alkaline 74 31 - 115 [facility] Phosphatase U/L Specimen Anatomical Collection Method Collection Time Receive d Time (Source) Location / / Volume Laterality 09/02/2001 8:40 AM 2 8:41 RAT FARMER AM RAT FARMER Deloris Chirinos MD LAB_1 Performing Organization Address [facility] Code Phon e Number [facility] Expl[facility] [phone] [facility] [address] [place] [phone] (ABNORMAL) PTT (09/02/2001 8:40 AM RAT FARMER) P athologist Signature PTT 38.8 (H) 23.2 - 35.2 [facility] sec Heparin No [facility] Specimen Anatomical Collection Method Collection Time Receive d Time (Source) Location / / Volume Laterality 09/02/2001 8:40 AM 2 8:41 RAT FARMER AM RAT FARMER Deloris Chirinos MD LAB_1 Performing Organization Address [facility] Code Phon e Number [facility] [phone] [facility] [address] [place] [phone] (ABNORMAL) PROTIME (09/02/2001 8:40 AM RAT FARMER) P athologist Signature Protime 22.2 (H) 10.2 - 13.8 [facility] sec Coumadin Yes [facility] INR 1.9 [facility] Specimen Anatomical Collection Method Collection Time Receive d Time (Source) Location / / Volume Laterality 09/02/2001 8:40 AM 2 8:41 RAT FARMER AM RAT FARMER Deloris Chirinos MD LAB_1 Performing Organization Address [facility]/ZIP Code Phon e Number [facility] [phone] [phone] (ABNORMAL) HEMOGRAM/PLTS (09/02/2001 8:40 AM RAT FARMER) P athologist Signature WBC 6.8 3.6 - 11.0 [facility] k/ul RBC 4.63 4.0 - 5.2 [facility] M/ul Hemoglobin 13.3 12.0 - [facility] 16.0 g/dl HCT 39.3 36.0 - [facility] 46.0 % MCV 84.9 80 - 100 [facility] fl MCH 28.7 26 - 34 pg [facility] MCHC 33.7 32 - 36 % [facility] RDW 16.0 (H) 11.5 - [facility] 14.5 % Platelets 352 150 - 450 [facility] k/ul Specimen Anatomical Collection Method Collection Time Receive d Time (Source) Location / / Volume Laterality 09/02/2001 8:40 AM 2 8:41 RAT FARMER AM RAT FARMER Deloris Chirinos MD LAB_1 Performing Organization Address City/State/ZIP Code Phon e Number [facility] [phone] [facility] [address] [place] [phone] documented in this encounter Visit Diagnoses Not on filedocumented in this encounter Care Teams Meat Puller Relationship Specialty Start Date End Date Olamide Rodney MD PCP - General 09/25/10 01/11/21 [address] [place] [address] documented as of this encounter
--- OUTSIDE RECORDS SUMMARY | 2022-02-08 14:31 | XMS_ITS | Encounter Summary ---
:1960 Author Organization [facility] Address [address] [place] [address] Care Team Providers Name Role Phone Olamide Rodney MD Primary Care Provider Encounter Details Date Type Department Care Team Description 06/25/2001 Orders Only Deloris Newman MD [address] [place], [place] [phone] [place], [place] [phone] (Wo rk) Social History Tobacco Use Types Packs/Day Years Used Date Smoking Tobacco: Never Assessed Sex Assigned at Date Recorded Not on file documented as of this encounter Plan of Treatment Not on filedocumented as of this encounter Procedures Procedure Name Priority Date/Time Associated Diagnosis Comme nts INR/PROTIME Routine 06/25/2001 9:13 AM Results f or this ASSEMBLER CARBON BRUSHES procedure are i n the results section . documented in this encounter Results (ABNORMAL) PROTIME (06/25/2001 9:13 AM ASSEMBLER CARBON BRUSHES) P athologist Signature Protime 20.9 (H) 10.2 - 13.8 [facility] sec Coumadin Yes [facility] INR 1.8 [facility] Specimen Anatomical Collection Method Collection Time Receive d Time (Source) Location / / Volume Laterality 06/25/2001 9:13 AM 200 2 9:14 ASSEMBLER CARBON BRUSHES AM ASSEMBLER CARBON BRUSHES Deloris Chirinos MD LAB_1 Performing Organization Address City/State/ZIP Code Phon e Number [facility] [phone] [address] documented in this encounter Visit Diagnoses Not on filedocumented in this encounter Care Teams Rn Hemodialysis Relationship Specialty Start Date End Date Olamide Rodney MD PCP - General 09/25/10 01/11/21 [address] [place], [place] [address] documented as of this encounter
--- OUTSIDE RECORDS SUMMARY | 2022-02-08 14:31 | XMS_ITS | Encounter Summary ---
:1960 Author Organization [facility] Address [address] [place] [address] Care Team Providers Name Role Phone Olamide Rodney MD Primary Care Provider Encounter Details Date Type Department Care Team Description 06/21/2001 Orders Only [facility] [address] [place], [place] [address] Social History Tobacco Use Types Packs/Day Years Used Date Smoking Tobacco: Never Assessed Sex Assigned at Date Recorded Not on file documented as of this encounter Plan of Treatment Not on filedocumented as of this encounter Procedures Procedure Name Priority Date/Time Associated Diagnosis Comme nts INR/PROTIME Waiting 06/21/2001 8:51 AM Results f or this IRRIGATOR GRAVITY FLOW procedure are i n the results section. COMPLETE BLOOD Waiting 06/21/2001 8:51 AM Results for this COUNT-NO DIFF IRRIGATOR GRAVITY FLOW procedure are in the results section. documented in this encounter Results PROTIME (06/21/2001 8:51 AM IRRIGATOR GRAVITY FLOW) [facility] Method Time Signature Protime 9.4 8.0 - [facility] 12.5 sec Protime Performed at [facility] INR 1.01 [facility] INR For stable oral anticoagulants, the INR [facility] therapeutic range is 2.0-4.5. Performed at [facility] Specimen Anatomical Collection Method Collection Time Receive d Time (Source) Location / / Volume Laterality 06/21/2001 8:51 AM 1 8:52 IRRIGATOR GRAVITY FLOW AM IRRIGATOR GRAVITY FLOW Nurse Spucc LAB_1 Performing Organization Address [facility] Phon e Number [facility] [phone] [phone] (ABNORMAL) HEMOGRAM/PLTS (06/21/2001 8:51 AM IRRIGATOR GRAVITY FLOW) P athologist Signature WBC 8.5 3.6 - 11.0 [facility] k/ul RBC 4.65 4.0 - 5.2 [facility] M/ul Hemoglobin 13.6 12.0 - [facility] 16.0 g/dl HCT 40.3 36.0 - [facility] 46.0 % MCV 86.6 80 - 100 [facility] fl MCH 29.3 26 - 34 pg [facility] MCHC 33.9 32 - 36 % [facility] RDW 14.9 (H) 11.5 - [facility] 14.5 % Platelets 282 150 - 450 [facility] k/ul Specimen Anatomical Collection Method Collection Time Receive d Time (Source) Location / / Volume Laterality 06/21/2001 8:51 AM 1 8:52 IRRIGATOR GRAVITY FLOW AM IRRIGATOR GRAVITY FLOW Nurse Spucc LAB_1 Performing Organization Address City/[facility] Code Phon e Number [facility] [phone] [phone] documented in this encounter Visit Diagnoses Not on filedocumented in this encounter Care Teams Transit Operator Relationship Specialty Start Date End Date Olamide Rodney MD PCP - General 09/25/10 01/11/21 [address] [place] [address] documented as of this encounter
--- OUTSIDE RECORDS SUMMARY | 2022-02-08 14:31 | XMS_ITS | Encounter Summary ---
:1960 Author Organization [facility] Address [address] [place] [address] Care Team Providers Name Role Phone Olamide Rodney MD Primary Care Provider Encounter Details Date Type Department Care Team Description 08/05/2001 Orders Only Delrois Newman MD [address] [place], [place] [phone] [place], [place] [phone] (Wo rk) Social History Tobacco Use Types Packs/Day Years Used Date Smoking Tobacco: Never Assessed Sex Assigned at Date Recorded Not on file documented as of this encounter Plan of Treatment Not on filedocumented as of this encounter Procedures Procedure Name Priority Date/Time Associated Diagnosis Comme nts INR/PROTIME Routine 08/05/2001 8:40 AM Results f or this HOUSING PROJECT MANAGER procedure are i n the results section . documented in this encounter Results (ABNORMAL) PROTIME (08/05/2001 8:40 AM HOUSING PROJECT MANAGER) P athologist Signature Protime 27.0 (H) 10.2 - 13.8 [facility] sec Coumadin Yes [facility] INR 2.3 [facility] Specimen Anatomical Collection Method Collection Time Receive d Time (Source) Location / / Volume Laterality 08/05/2001 8:40 AM 2 8:41 HOUSING PROJECT MANAGER AM HOUSING PROJECT MANAGER Deloris Chirinos MD LAB_1 Performing Organization Address City/State/ZIP Code Phon e Number [facility] [phone] [address] documented in this encounter Visit Diagnoses Not on filedocumented in this encounter Care Teams Manager Staffing Relationship Specialty Start Date End Date Olamide Rodney MD PCP - General 09/25/10 01/11/21 [address] [place], [place] [phone] documented as of this encounter
--- OUTSIDE RECORDS SUMMARY | 2022-02-08 14:31 | XMS_ITS | Encounter Summary ---
:1960 Author Organization [employer] Address [address] [place] [address] Care Team Providers Name Role Phone Danielle Bender MD Primary Care Provider Encounter Details Date Type Department Care Team Description 08/26/2001 Office Visit [facility]UDMILA BETES UNCOMPL ADULT-TYPE II; Program COUNSELING, DIETARY [address] [place] [address] Social History Tobacco Use Types Packs/Day Years [...] counseling documented in this encounter Care Teams Zumba Instructor Relationship Specialty Start Date End Date Danielle Bender MD PCP - General 04/09/01 08/07/[address] [place] [address] documented as of this encounter
--- OUTSIDE RECORDS SUMMARY | 2022-02-08 14:31 | XMS_ITS | Encounter Summary ---
:1960 Author Organization [facility] Address [address] [place] [address] Care Team Providers Name Role Phone Olamide Rodney MD Primary Care Provider Encounter Details Date Type Department Care Team Description 06/29/2001 Orders Only Deloris Newman MD [address] [place], [place] [phone] [place], [place] [phone] (Wo rk) Social History Tobacco Use Types Packs/Day Years Used Date Smoking Tobacco: Never Assessed Sex Assigned at Date Recorded Not on file documented as of this encounter Plan of Treatment Not on filedocumented as of this encounter Procedures Procedure Name Priority Date/Time Associated Diagnosis Comme nts INR/PROTIME Routine 06/29/2001 8:20 AM Results f or this TENSION MACHINE OPERATOR procedure are i n the results section . documented in this encounter Results (ABNORMAL) PROTIME (06/29/2001 8:20 AM TENSION MACHINE OPERATOR) P athologist Signature Protime 30.5 (H) 10.2 - 13.8 [facility] sec Coumadin Yes [facility] INR 2.6 [facility] Specimen Anatomical Collection Method Collection Time Receive d Time (Source) Location / / Volume Laterality 06/29/2001 8:20 AM 2 8:21 TENSION MACHINE OPERATOR AM TENSION MACHINE OPERATOR Deloris Chirinos MD LAB_1 Performing Organization Address City/State/ZIP Code Phon e Number [facility] [phone] [phone] documented in this encounter Visit Diagnoses Not on filedocumented in this encounter Care Teams Aircraft Electrical Systems Specialist Relationship Specialty Start Date End Date Olamide Rodney MD PCP - General 09/25/10 01/11/21 [address] [place], [place] [address] documented as of this encounter
--- OUTSIDE RECORDS SUMMARY | 2022-02-08 14:31 | XMS_ITS | Encounter Summary ---
:1960 Author Organization [employer] Address [address] [place] [address] Care Team Providers Name Role Phone Danielle Bender MD Primary Care Provider Encounter Details Date Type Department Care Team Description 06/22/[address] [facility] VENOUS THROMBOSIS NEC [address] [place] [address] Social History Tobacco Use Types Packs/Day Years Used Date Smoking Tobacco: Never Assessed Sex Assigned at Date Recorded Not on file documented as of this encounter Plan of Treatment Not on filedocumented as of this encounter Visit Diagnoses Diagnosis Other acute embolism veins Acute venous embolism and thrombosis of other specified veins documented in this encounter Care Teams Cleaner Industrial Relationship Specialty Start Date End Date Danielle Bender MD PCP - General 04/09/01 08/07/[address] [place] [address] documented as of this encounter
--- OUTSIDE RECORDS SUMMARY | 2022-02-08 14:31 | XMS_ITS | Encounter Summary ---
:1960 Author Organization [employer] Address [address] [place] [address] Care Team Providers Name Role Phone Danielle Bender MD Primary Care Provider Encounter Details Date Type Department Care Team Description 07/14/2001 Office Visit [facility] Deloris Chirinos, VENOUS THROMBOSIS NEC; Internal Medicine MD FOLLOW-UP EXAM [facility]; [address] [place] [address] [address] [facility] DIABETES [place] [address] [phone] Social History Tobacco Use Types Packs/Day Years Used Date Smoking Tobacco: Never Assessed Sex Assigned at Date Recorded Not on file documented as of this encounter Progress Notes Deloris Chirinos - 07/14/2001 12:00 AM CSTSUBJECTIVE: [id number]-[id number]-pbea-old woman that comes in today for followup [...] her lifestyle. She has also seen her stereo operator within the last one week, and [...] right leg, diabetes mellitus type 2. cc: PLACEMENT OFFICER documented in this encounter Plan of Treatment Not on filedocumented as of this encounter Visit Diagnoses Diagnosis Other acute embolism veins Acute venous embolism and thrombosis of other specified veins Other follow-up examination(V67.59) Other follow-up examination Type II or unspecified type diabetes rod litus without mention of complication, not stated as uncontrolled documented in this encounter Care Teams Pollution Control Technician Relationship Specialty Start Date End Date Danielle Bender MD PCP - General 04/09/01 08/07/[address] [place] [address] documented as of this encounter
--- OUTSIDE RECORDS SUMMARY | 2022-02-08 14:31 | XMS_ITS | Encounter Summary ---
:1960 Author Organization [facility] Address [address] [place] [address] Care Team Providers Name Role Phone Danielle Bender MD Primary Care Provider Encounter Details Date Type Department Care Team Description 10/21/2001 Orders Only Deloris Chirinos MD [address] [place] [address] (Wo rk) Social History Tobacco Use [...] Results (ABNORMAL) PROTIME (10/21/2001 8:37 AM CDT) [facility] gist Method Time Signature Protime 22.3 (H) [...] City/State/ZIP Code Phon e Number [facility] [phone] [facility] [address] [place] [phone] documented in this encounter Visit Diagnoses Not on filedocumented in this encounter Care Teams Muffler Tender Relationship Specialty Start Date End Date Danielle Bender MD PCP - General 04/09/01 08/07/[address] [place] [address] documented as of this encounter
--- OUTSIDE RECORDS SUMMARY | 2022-02-08 14:31 | XMS_ITS | Encounter Summary ---
:1960 Author Organization [employer] Address [address] [place] [address] Care Team Providers Name Role Phone Danielle Bender MD Primary Care Provider Encounter Details Date Type Department Care Team Description 07/01/2001 Office Visit [facility] T[address] Sor[address] [facility] DIABETES UNCOMPL ADULT- TYPE II; Internal Medicine OBESITY NOS [address] [place] [address] Social History Tobacco Use Types Packs/Day Years [...] Nutrition consultation. cc: MD Tania Black, SAFIA,LD R SCHOOL CAREGIVER documented in this encounter Plan of Treatment Not on filedocumented as of this encounter Visit Diagnoses Diagnosis Type II or unspecified type diabetes rod litus without mention of complication, not stated as uncontrolled Obesity, unspecified ([facility]) Obesity, unspecified documented in this encounter Care Teams Nutritionists Relationship Specialty Start Date End Date Danielle Bender MD PCP - General 04/09/01 08/07/[address] [place] [address] documented as of this encounter
--- OUTSIDE RECORDS SUMMARY | 2022-02-08 14:31 | XMS_ITS | Encounter Summary ---
:1960 Author Organization [employer] Address [address] [place] [address] Care Team Providers Name Role Phone Danielle Bender MD Primary Care Provider Encounter Details Date Type Department Care Team Description 06/21/[address] [facility] [address] [facility] VENOUS THROMBOSIS NEC [address] [place] [address] Social History Tobacco Use Types Packs/Day Years Used Date Smoking Tobacco: Never Assessed Sex Assigned at Date Recorded Not on file documented as of this encounter Plan of Treatment Not on filedocumented as of this encounter Visit Diagnoses Diagnosis Other acute embolism veins Acute venous embolism and thrombosis of other specified veins documented in this encounter Care Teams Stone Grader Relationship Specialty Start Date End Date Danielle Bender MD PCP - General 04/09/01 08/07/[address] [place] [address] documented as of this encounter
--- OUTSIDE RECORDS SUMMARY | 2022-02-08 14:31 | XMS_ITS | Encounter Summary ---
:1960 Author Organization [employer] Address [address] [place] [address] Care Team Providers Name Role Phone Danielle Bender MD Primary Care Provider Encounter Details Date Type Department Care Team Description 09/16/2001 Office Visit Agency Diabetes LUDMILA BETES UNCOMPL ADULT-TYPE II; Program COUNSELING, DIETARY [address] [place] [address] Social History Tobacco Use Types Packs/Day Years [...] counseling documented in this encounter Care Teams Bulk Pallet Builder Relationship Specialty Start Date End Date Danielle Bender MD PCP - General 04/09/01 08/07/[address] [place] [address] documented as of this encounter
--- OUTSIDE RECORDS SUMMARY | 2022-02-08 14:31 | XMS_ITS | Encounter Summary ---
:1960 Author Organization [employer] Address [address] [address] Care Team Providers Name Role Phone Danielle Bender MD Primary Care Provider Encounter Details Date Type Department Care Team Description 06/26/2001 Orders Only [place] [facility] Deloris Chirinos MD [address] [address] [place] [address] [phone] Social History Tobacco Use Types Packs/Day Years [...] Foster MD cc: Radiology Deloris Chirinos MD ENT SERVICE SPECIALIST documented in this encounter Plan of Treatment [...] on filedocumented in this encounter Care Teams Tempering Kiln Tender Relationship Specialty Start Date End Date Danielle Bender MD PCP - General 04/09/01 08/07/[address] [place] [address] documented as of this encounter
--- OUTSIDE RECORDS SUMMARY | 2022-02-08 14:31 | XMS_ITS | Encounter Summary ---
:1960 Author Organization [employer] Address [address] [place] [address] Care Team Providers Name Role Phone Danielle Bender MD Primary Care Provider Encounter Details Date Type Department Care Team Description 06/21/2001 [facility] VENOUS THROMBOSIS NEC; [address] [place] [address] Social History Tobacco Use Types Packs/Day Years Used Date Smoking Tobacco: Never Assessed Sex Assigned at Date Recorded Not on file documented as of this encounter Plan of Treatment Not on filedocumented as of this encounter Visit Diagnoses Diagnosis Other acute embolism veins Acute venous embolism and thrombosis of other specified veins Laboratory examination documented in this encounter Care Teams Armament Installer Relationship Specialty Start Date End Date Danielle Bender MD PCP - General 04/09/01 08/07/[address] [place] [address] documented as of this encounter
--- OUTSIDE RECORDS SUMMARY | 2022-02-08 14:31 | XMS_ITS | Encounter Summary ---
:1960 Author Organization [employer] Address [address] [place] [address] Care Team Providers Name Role Phone Danielle Bender MD Primary Care Provider Encounter Details Date Type Department Care Team Description 06/22/2001 Office Visit [facility] THRO MBOPHLEBITIS LEG NOS Department [address] [place] [address] Social History Tobacco Use Types Packs/Day Years Used Date Smoking Tobacco: Never Assessed Sex Assigned at Date Recorded Not on file documented as of this encounter Plan of Treatment Not on filedocumented as of this encounter Visit Diagnoses Diagnosis Phlebitis and thrombophlebitis of lower extremities, unspecified documented in this encounter Care Teams Customer Field Representative Relationship Specialty Start Date End Date Danielle Bender MD PCP - General 04/09/01 08/07/10 1430 [facility] [address] [place] [address] documented as of this encounter
--- OUTSIDE RECORDS SUMMARY | 2022-02-08 14:31 | XMS_ITS | Encounter Summary ---
:1960 Author Organization [facility] Address [address] [place] [address] Care Team Providers Name Role Phone Danielle Bender MD Primary Care Provider Encounter Details Date Type Department Care Team Description 06/26/2001 Orders Only [facility] CREENING MAMM-MALIG NEOPL-HI RISK; Mammography PERS [facility] [address] [place] [address] Social History Tobacco Use Types [...] health documented in this encounter Care Teams Mold Repair Technician Relationship Specialty Start Date End Date Danielle Bender MD PCP - General 04/09/01 08/07/[address] [place] [address] documented as of this encounter
--- OUTSIDE RECORDS SUMMARY | 2022-02-08 14:31 | XMS_ITS | Encounter Summary ---
:1960 Author Organization [facility] Address [address] [place] [address] Care Team Providers Name Role Phone Olamide Rodney MD Primary Care Provider Encounter Details Date Type Department Care Team Description 06/23/2001 Orders Only Deloris Newman MD [address] [place], [place] [address] [place], [place] [id number] (Wo rk) Social History Tobacco Use Types Packs/Day Years Used Date Smoking Tobacco: Never Assessed Sex Assigned at Date Recorded Not on file documented as of this encounter Plan of Treatment Not on filedocumented as of this encounter Procedures Procedure Name Priority Date/Time Associated Diagnosis Comme nts INR/PROTIME Waiting 06/23/2001 9:40 AM Results f or this KNOCKDOWN WORKER procedure are i n the results section . documented in this encounter Results PROTIME (06/23/2001 9:40 AM KNOCKDOWN WORKER) [facility] Method Time Signature Protime 11.9 8.0 [facility] 12.5 sec Protime Performed at [facility] INR 1.28 [facility] INR For stable oral anticoagulants, the INR [facility] therapeutic range is 2.0-4.5. Performed at [facility] Specimen Anatomical Collection Method Collection Time Receive d Time (Source) Location / / Volume Laterality 06/23/2001 9:40 AM 01/01/200 2 9:41 KNOCKDOWN WORKER AM KNOCKDOWN WORKER Deloris Chirinos MD LAB_1 Performing Organization Address City/State/ZIP Code Phon e Number [facility] [phone] [address] documented in this encounter Visit Diagnoses Not on filedocumented in this encounter Care Teams Program Associate Relationship Specialty Start Date End Date Olamide Rodney MD PCP - General 09/25/10 01/11/21 [address] [place], [place] [address] documented as of this encounter
--- OUTSIDE RECORDS SUMMARY | 2022-02-08 14:31 | XMS_ITS | Encounter Summary ---
:1960 Author Organization [employer] Address [address] [place] [address] Care Team Providers Name Role Phone Danielle Bender MD Primary Care Provider Encounter Details Date Type Department Care Team Description 08/19/2001 Office Visit [place] [facility] LUDMILA BETES UNCOMPL ADULT-TYPE II; Program COUNSELING, DIETARY [address] [place] [address] Social History Tobacco Use Types Packs/Day Years [...] counseling documented in this encounter Care Teams Pilot Can Router Relationship Specialty Start Date End Date Danielle Bender MD PCP - General 04/09/01 08/07/[address] [place] [address] documented as of this encounter
--- OUTSIDE RECORDS SUMMARY | 2022-02-08 14:31 | XMS_ITS | Encounter Summary ---
:1960 Author Organization [facility] Address [address] [place] [address] Care Team Providers Name Role Phone Olamide Rodney MD Primary Care Provider Encounter Details Date Type Department Care Team Description 07/03/2001 Orders Only Deloris Newman MD [address] [place], [place] [address] [place], [place] [id number] (Wo rk) Social History Tobacco Use Types Packs/Day Years Used Date Smoking Tobacco: Never Assessed Sex Assigned at Date Recorded Not on file documented as of this encounter Plan of Treatment Not on filedocumented as of this encounter Procedures Procedure Name Priority Date/Time Associated Diagnosis Comme nts INR/PROTIME Routine 07/03/2001 8:59 AM Results f or this CRYPTANALYST procedure are i n the results section . documented in this encounter Results (ABNORMAL) PROTIME (07/03/2001 8:59 AM CRYPTANALYST) P athologist Signature Protime 36.8 (H) 10.2 - 13.8 [facility] sec Coumadin Yes [facility] INR 3.2 [facility] Specimen Anatomical Collection Method Collection Time Receive d Time (Source) Location / / Volume Laterality 07/03/2001 8:59 AM 200 2 9:00 CRYPTANALYST AM CRYPTANALYST Deloris Chirinos MD LAB_1 Performing Organization Address City/State/ZIP Code Phon e Number [facility] [phone] [address] documented in this encounter Visit Diagnoses Not on filedocumented in this encounter Care Teams Operational Trainer Relationship Specialty Start Date End Date Olamide Rodney MD PCP - General 09/25/10 01/11/21 [address] [place], [place] [address] documented as of this encounter
--- OUTSIDE RECORDS SUMMARY | 2022-02-08 14:31 | XMS_ITS | Encounter Summary ---
:1960 Author Organization [employer] Address [address] [place] [address] Care Team Providers Name Role Phone Danielle Bender MD Primary Care Provider Encounter Details Date Type Department Care Team Description 06/23/2001 Office [facility] VENOUS THROMBOSIS NEC [address] [place] [address] Social History Tobacco Use Types Packs/Day Years Used Date Smoking Tobacco: Never Assessed Sex Assigned at Date Recorded Not on file documented as of this encounter Plan of Treatment Not on filedocumented as of this encounter Visit Diagnoses Diagnosis Other acute embolism veins Acute venous embolism and thrombosis of other specified veins documented in this encounter Care Teams Blood Bank Laboratory Technologist Relationship Specialty Start Date End Date Danielle Bender MD PCP - General 04/09/01 08/07/[address] [place] [address] documented as of this encounter
--- OUTSIDE RECORDS SUMMARY | 2022-02-08 14:31 | XMS_ITS | Encounter Summary ---
:1960 Author Organization [facility] Address [address] [place] [address] Care Team Providers Name Role Phone Olamide Rodney MD Primary Care Provider Encounter Details Date Type Department Care Team Description 07/10/2001 Orders Only Deloris Newman MD [address] [place], [place] [phone] [place], [place] [id number] (Wo rk) Social History Tobacco Use Types Packs/Day Years Used Date Smoking Tobacco: Never Assessed Sex Assigned at Date Recorded Not on file documented as of this encounter Plan of Treatment Not on filedocumented as of this encounter Procedures Procedure Name Priority Date/Time Associated Diagnosis Comme nts INR/PROTIME Routine 07/10/2001 10:22 AM Results for this LABORER DEMOLITION procedure are i n the results section . documented in this encounter Results (ABNORMAL) PROTIME (07/10/2001 10:22 AM LABORER DEMOLITION) P athologist Signature Protime 42.8 (H) 10.2 - 13.8 [facility] sec Coumadin Yes [facility] INR 3.7 [facility] Specimen Anatomical Collection Method Collection Time Receive d Time (Source) Location / / Volume Laterality 07/10/2001 10:22 07/10/2001 AM LABORER DEMOLITION 10:23 AM LABORER DEMOLITION Deloris Chirinos MD LAB_1 Performing Organization Address City/State/ZIP Code Phon e Number [facility] [phone] [address] documented in this encounter Visit Diagnoses Not on filedocumented in this encounter Care Teams Utility Operator Yarn Relationship Specialty Start Date End Date Olamide Rodney MD PCP - General 09/25/10 01/11/21 [address] [place], [place] [address] documented as of this encounter
--- OUTSIDE RECORDS SUMMARY | 2022-02-08 14:32 | XMS_ITS | Encounter Summary ---
:1960 Author Organization [employer] Address [address] [place] [address] Care Team Providers Name Role Phone Danielle Bender MD Primary Care Provider Encounter Details Date Type Department Care Team Description 06/20/2001 [facility] VENOUS THROMBOSIS N[address] [place] [address] Social History Tobacco Use Types Packs/Day Years Used Date Smoking Tobacco: Never Assessed Sex Assigned at Date Recorded Not on file documented as of this encounter Plan of Treatment Not on filedocumented as of this encounter Visit Diagnoses Diagnosis Other acute embolism veins Acute venous embolism and thrombosis of other specified veins documented in this encounter Care Teams Sole Assessor Relationship Specialty Start Date End Date Danielle Bender MD PCP - General 04/09/01 08/07/[address] [place] [address] documented as of this encounter
--- OUTSIDE RECORDS SUMMARY | 2022-02-08 14:32 | XMS_ITS | Encounter Summary ---
:1960 Author Organization [facility] Address [address] [place] [address] Care Team Providers Name Role Phone Olamide Rodney MD Primary Care Provider Encounter Details Date Type Department Care Team Description 06/04/2001 Orders Only Deloris Newman MD [address] [place], [place] [phone] [place] [address] [phone] (Wo rk) Social History Tobacco Use Types Packs/Day Years Used Date Smoking Tobacco: Never Assessed Sex Assigned at Date Recorded Not on file documented as of this encounter Plan of Treatment Not on filedocumented as of this encounter Procedures Procedure Name Priority Date/Time Associated Diagnosis Comme nts PAP TEST, ROUTINE Routine 06/04/2001 8:20 AM Resu lts for this PEOPLESOFT FINANCIAL DEVELOPER procedure are i n the results section. documented in this encounter Results PAP SMEAR, ROUTINE (06/04/2001 8:20 AM PEOPLESOFT FINANCIAL DEVELOPER) [facility] Method Time Signature Pap Smear, Referred to [facility]; Separate [facility] Routine Report to Follow Specimen Anatomical Collection Method Collection Time Receive d Time (Source) Location / / Volume Laterality 06/04/2001 8:20 AM 12/18/200 1 PEOPLESOFT FINANCIAL DEVELOPER 10:03 AM PEOPLESOFT FINANCIAL DEVELOPER Deloris Chirinos MD LAB_1 Performing Organization Address City/State/ZIP Code Phon e Number [facility] [phone] [facility] [address] [address] documented in this encounter Visit Diagnoses Not on filedocumented in this encounter Care Teams Painter Hand Relationship Specialty Start Date End Date Olamide Rodney MD PCP - General 09/25/10 01/11/21 [address] [place], [place] [address] documented as of this encounter
--- OUTSIDE RECORDS SUMMARY | 2022-02-08 14:32 | XMS_ITS | Encounter Summary ---
:1960 Author Organization [employer] Address [address] [place] [address] Care Team Providers Name Role Phone Shaila Cast MD Primary Care Provider Reason for Visit Reason Comments LEG PAIN VIA INTERFACE Encounter Details Date Type Department Care Team Description 07/21/2000 [facility] [facility] [place] THROMBOP HLEBITIS NOS; millwright supervisor ASTHMA W/O STATUS ASTHMATICUS [address] [place] [address] [place] [address] [phone] Social History Tobacco Use Types Packs/Day Years [...] switch her to Indocin if necessary. cc: UNIT TEACHER documented in this encounter Plan of Treatment Not on filedocumented as of this encounter Visit Diagnoses Diagnosis Phlebitis and thrombophlebitis of unspec ified site Unspecified asthma(493.90) ([facility]) Unspecified asthma documented in this encounter Care Teams V Block Saw Operator Relationship Specialty Start Date End Date Shaila Cast MD PCP - General 07/21/00 04/08/[address] [place] [address] documented as of this encounter
--- OUTSIDE RECORDS SUMMARY | 2022-02-08 14:32 | XMS_ITS | Encounter Summary ---
:1960 Author Organization [employer] Address [address] [place] [address] Care Team Providers Name Role Phone Danielle Bender MD Primary Care Provider Encounter Details Date Type Department Care Team Description 06/19/[address] [facility] THROMBOPHLEBITIS LEG NOS; [address] [place] [address] Social History Tobacco Use Types Packs/Day Years [...] her own physician. IN SUMMARY: PHLEBITIS cc: OR MICROSTRATEGY DEVELOPER documented in this encounter Plan of Treatment Not on filedocumented as of this encounter Visit Diagnoses Diagnosis Phlebitis and thrombophlebitis of lower extremities, unspecified Laboratory examination documented in this encounter Care Teams Carbon Rod Inserter Relationship Specialty Start Date End Date Danielle Bender MD PCP - General 04/09/01 08/07/10 14[address] [facility] [address] [place] [address] documented as of this encounter
--- OUTSIDE RECORDS SUMMARY | 2022-02-08 14:32 | XMS_ITS | Encounter Summary ---
:1960 Author Organization [employer] Address [address] [place] [address] Care Team Providers Name Role Phone Danielle Bender MD Primary Care Provider Encounter Details Date Type Department Care Team Description 06/04/2001 Orders Only Cameron Chirinos MD [address] [place] [address] (Wo rk) Social History Tobacco Use Types Packs/Day Years Used Date Smoking Tobacco: Never Assessed Sex Assigned at Date Recorded Not on file documented as of this encounter Plan of Treatment Not on filedocumented as of this encounter Procedures Procedure Name Priority Date/Time Associated Diagnosis Comme nts METAL MACHINE SETTER CYTOLOGY Routine 06/04/2001 8:00 AM Results for this GARMENT LINER procedure are i n the results section . documented in this encounter Results METAL MACHINE SETTER CYTOLOGY (06/04/2001 8:00 AM GARMENT LINER) [facility] Method Time Signature Custom Clothier Cytology Custom Clothier Cytology Report [facility] Patient Name: PATY YEAGER Taken: 06/04/01 Received: 06/09/01 Reported: 06/28/01 Physician(s): CAMERON CHIRINOS ([id number]) ? [id number] Final Cytologic Diagnosis Cervical Endocervical,routine: ? Satisfactory for evaluation. ??Endocervical cells and/or squamous metaplastic cells ??present. This pap smear was sent to [facility], [address] [place] [address] [address] ??[address] for evaluation. ?? Their results are as follows. ? WITHIN NORMAL LIMITS (WNL) ? Comment qcs/06/28/01 Electronically Signed Out By [email or web address], [email or web address], [employer] ? Source of Specimen(s) Cervical Endocervical,routine Clinical History Date of Last Menstrual Period: ? 05/07/01 Menstrual History: Contraceptive History: Cancer History: Infection History: Treatment History: Other Clinical Conditions: LAST PAP: 02/27/99 Other Related Clinical Data Specimen Anatomical Collection Method Collection Time Receive d Time (Source) Location / / Volume Laterality 06/04/2001 8:00 AM 1 GARMENT LINER 12:33 PM GARMENT LINER Cameron Chirinos MD UNLISTED CODE Performing Organization Address City/State/ZIP Code Phon e Number [address] [address] [place], [place] [phone] documented in this encounter Visit Diagnoses Not on filedocumented in this encounter Care Teams Pleater Hand Relationship Specialty Start Date End Date Danielle Bender MD PCP - General 04/09/01 08/07/[address] [place] [address] documented as of this encounter
--- OUTSIDE RECORDS SUMMARY | 2022-02-08 14:32 | XMS_ITS | Encounter Summary ---
:1960 Author Organization [facility] Address [address] [place] [address] Care Team Providers Name Role Phone Olamide Rodney MD Primary Care Provider Encounter Details Date Type Department Care Team Description 06/19/2001 Orders Only [facility] [address] [place], [place] [address] Social History Tobacco Use Types Packs/Day Years Used Date Smoking Tobacco: Never Assessed Sex Assigned at Date Recorded Not on file documented as of this encounter Plan of Treatment Pending Results Name Type Priority Associated Diagnoses Date/Ti me HEMOGRAM/PLTS/DIFF Lab Waiting 1 8:00 PM DOOR MAKER documented as of this encounter Procedures Procedure Name Priority Date/Time Associated Comments Diagnosis COMPLETE BLOOD Waiting 06/19/2001 8:00 PM COUNT-W/DIFF DOOR MAKER UA, NO MICROSCOPIC Waiting 06/19/2001 8:00 PM Res ults for this DOOR MAKER procedure are i n the results section. CREATININE Routine 06/19/2001 8:00 PM Results f or this DOOR MAKER procedure are i n the results section. documented in this encounter Results CREATININE (06/19/2001 8:00 PM DOOR MAKER) [facility] Method Time Signature Creatinine 1.0 0.5 - 1.2 [facility] mg/dl Creatinine Performed at [facility] Specimen Anatomical Collection Method Collection Time Receive d Time (Source) Location / / Volume Laterality 06/19/2001 8:00 PM 1 8:01 DOOR MAKER PM DOOR MAKER Full Range Spucc LAB_1 Performing Organization Address [facility] [address] [facility] Phon e Number [employer] [phone] [facility] [address] [place] [phone] (ABNORMAL) UA WITHOUT MICRO (06/19/2001 8:00 PM DOOR MAKER) P athologist Signature Appr Yellow [facility] Appr Hazy [facility] Sp Gr 1.028 1.005 - [facility] 1.030 Leuk Tr (A) [facility] Nitr Neg [facility] pH 6.0 4.5 - 8.0 [facility] Prot 30 (A) [place] mg/dl [facility] Gluc Neg mg/dl [facility] Ket 15 (A) [place] mg/dl [facility] Urob 0.2 0.2 - 1.0 [facility] EU/dl Bili Neg [facility] Blood Neg [facility] Specimen Anatomical Collection Method Collection Time Receive d Time (Source) Location / / Volume Laterality 06/19/2001 8:00 PM 1 8:01 DOOR MAKER PM DOOR MAKER Full Range Spucc LAB_1 Performing Organization Address [facility] [address]/[facility] Phon e Number [employer] [phone] [phone] documented in this encounter Visit Diagnoses Not on filedocumented in this encounter Care Teams Machine Quilt Stuffer Relationship Specialty Start Date End Date Olamide Rodney MD PCP - General 09/25/10 01/11/21 [address] [place] [address] documented as of this encounter
--- OUTSIDE RECORDS SUMMARY | 2022-02-08 14:32 | XMS_ITS | Encounter Summary ---
:1960 Author Organization [facility] Address [address] [place] [address] Care Team Providers Name Role Phone Olamide Rodney MD Primary Care Provider Encounter Details Date Type Department Care Team Description 06/19/2001 Orders Only [facility] [address] [place], [place] [address] Social History Tobacco Use Types Packs/Day Years Used Date Smoking Tobacco: Never Assessed Sex Assigned at Date Recorded Not on file documented as of this encounter Plan of Treatment Not on filedocumented as of this encounter Procedures Procedure Name Priority Date/Time Associated Comments Diagnosis APTT (ACTIVATED PARTIAL Waiting 06/19/2001 8:00 PM Results for this THROMBOPLASTIN TIME WEBSPHERE ARCHITECT procedur e are in the results section. INR/PROTIME Waiting 06/19/2001 8:00 PM Results f or this WEBSPHERE ARCHITECT procedure are i n the results section. documented in this encounter Results PARTIAL THOMBIN TIME (06/19/2001 8:00 PM WEBSPHERE ARCHITECT) [facility] Method Time Signature PTT 24.9 21 - 33 [facility] sec PTT Performed at [facility] Specimen Anatomical Collection Method Collection Time Receive d Time (Source) Location / / Volume Laterality 06/19/2001 8:00 PM 1 8:01 WEBSPHERE ARCHITECT PM WEBSPHERE ARCHITECT Full Range Spucc LAB_1 Performing Organization Address City/State/ZIP Code Phon e Number [facility] [phone] [phone] PROTIME (06/19/2001 8:00 PM WEBSPHERE ARCHITECT) [facility] Method Time Signature Protime 8.7 8.0 - [facility] 12.5 sec Protime Performed at [facility] INR 0.93 [facility] INR For stable oral anticoagulants, the INR [facility] therapeutic range is 2.0-4.5. Performed at [facility] Specimen Anatomical Collection Method Collection Time Receive d Time (Source) Location / / Volume Laterality 06/19/2001 8:00 PM 1 8:01 WEBSPHERE ARCHITECT PM WEBSPHERE ARCHITECT Full Range Spucc LAB_1 Performing Organization Address City/State/ZIP Code Phon e Number [facility] [phone] [phone] documented in this encounter Visit Diagnoses Not on filedocumented in this encounter Care Teams Retail Store Associate Relationship Specialty Start Date End Date Olamide Rodney MD PCP - General 09/25/10 01/11/21 [address] [place] [address] documented as of this encounter
--- OUTSIDE RECORDS SUMMARY | 2022-02-08 14:32 | XMS_ITS | Encounter Summary ---
:1960 Author Organization [facility] Address [address] [place] [address] Care Team Providers Name Role Phone Olamide Rodney MD Primary Care Provider Encounter Details Date Type Department Care Team Description 06/04/2001 Orders Only Deloris Newman MD [address] [place], [place] [address] [place] [address] (Wo rk) Social History Tobacco Use Types Packs/Day Years Used Date Smoking Tobacco: Never Assessed Sex Assigned at Date Recorded Not on file documented as of this encounter Plan of Treatment Not on filedocumented as of this encounter Procedures Procedure Name Priority Date/Time Associated Comments Diagnosis COMPLETE BLOOD Routine 06/04/2001 9:29 AM Results for this COUNT-NO DIFF WASH HOUSE SUPERVISOR procedure are in the results section. FREE T4 Routine 06/04/2001 9:29 AM Results f or this WASH HOUSE SUPERVISOR procedure are i n the results section. LIPID PANEL, FAST > Routine 06/04/2001 9:29 AM Re sults for this 12 HOUR WASH HOUSE SUPERVISOR procedure are i n the results section. TSH, SENSITIVE (WITH Routine 06/04/2001 9:29 AM R esults for this REFLEX) WASH HOUSE SUPERVISOR procedure are i n the results section. ALT (SGPT) Routine 06/04/2001 9:29 AM Results f or this WASH HOUSE SUPERVISOR procedure are i n the results section. AST Routine 06/04/2001 9:29 AM Results f or this WASH HOUSE SUPERVISOR procedure are i n the results section. SODIUM Routine 06/04/2001 9:29 AM Results f or this WASH HOUSE SUPERVISOR procedure are i n the results section. GLUCOSE - FASTING > Routine 06/04/2001 9:29 AM Re sults for this 8 HRS FASTING WASH HOUSE SUPERVISOR procedure are in the results section. CREATININE Routine 06/04/2001 9:29 AM Results f or this WASH HOUSE SUPERVISOR procedure are i n the results section. BILIRUBIN, TOTAL Routine 06/04/2001 9:29 AM Resul ts for this WASH HOUSE SUPERVISOR procedure are i n the results section. UA MICRO Routine 06/04/2001 9:29 AM Results f or this WASH HOUSE SUPERVISOR procedure are i n the results section. UA MICRO IF Routine 06/04/2001 9:29 AM Results f or this WASH HOUSE SUPERVISOR procedure are i n the results section. documented in this encounter Results UA MICRO (06/04/2001 9:29 AM WASH HOUSE SUPERVISOR) athologist Signature RBC'S 0-3 0 - 3 /hpf [facility] WBC'S 0-2 0 - 5 /hpf [facility] Epith, Occ /hpf [facility] Squamous Bact Occ [facility] Casts 0 /lpf [facility] Other Mod [facility] Mucous Specimen Anatomical Collection Method Collection Time Receive d Time (Source) Location / / Volume Laterality 06/04/2001 9:29 AM 1 9:30 WASH HOUSE SUPERVISOR AM WASH HOUSE SUPERVISOR Deloris Chirinos MD LAB_1 Performing Organization Address City/State/ZIP Code Phon e Number [facility] [phone] [facility] [address] [phone] (ABNORMAL) UA MICRO IF (06/04/2001 9:29 AM WASH HOUSE SUPERVISOR) athologist Signature Appr Yellow [facility] Appr Clear [facility] Sp Gr 1.026 1.005 - [facility] 1.030 Leuk Neg [facility] Nitr Neg [facility] pH 5.0 4.5 - 8.0 [facility] Prot Neg mg/dl [facility] Gluc Neg mg/dl [facility] Ket Tr (A) mg/dl [facility] Urob 0.2 0.2 - 1.0 [facility] EU/dl Bili Neg [facility] Blood Tr (A) [facility] Specimen Anatomical Collection Method Collection Time Receive d Time (Source) Location / / Volume Laterality 06/04/2001 9:29 AM 1 9:30 WASH HOUSE SUPERVISOR AM WASH HOUSE SUPERVISOR Deloris Chirinos MD LAB_1 Performing Organization Address [facility] Phon e Number [facility] [phone] [facility] [address] [place] [phone] SODIUM (06/04/2001 9:29 AM WASH HOUSE SUPERVISOR) athologist Signature Sodium 139 135 - 145 [facility] mmol/L Specimen Anatomical Collection Method Collection Time Receive d Time (Source) Location / / Volume Laterality 06/04/2001 9:29 AM 1 9:30 WASH HOUSE SUPERVISOR AM WASH HOUSE SUPERVISOR Deloris Chirinos MD LAB_1 Performing Organization Address [facility] Phon e Number [facility] [phone] [phone] (ABNORMAL) GLUCOSE - FASTING > 8 HRS FASTING (06/04/2001 9:29 AM WASH HOUSE SUPERVISOR) Analysis Performed At [facility] Time Signature Glucose 142 (H) 70 - 110 [facility] mg/dl Hours Fasting 13 hours [facility] Specimen Anatomical Collection Method Collection Time Receive d Time (Source) Location / / Volume Laterality 06/04/2001 9:29 AM 1 9:30 WASH HOUSE SUPERVISOR AM WASH HOUSE SUPERVISOR Deloris Chirinos MD LAB_1 Performing Organization Address [facility] Phon e Number [facility] [phone] [phone] CREATININE (06/04/2001 9:29 AM WASH HOUSE SUPERVISOR) P athologist Signature Creatinine 0.8 0.5 - 1.2 [facility] mg/dl Specimen Anatomical Collection Method Collection Time Receive d Time (Source) Location / / Volume Laterality 06/04/2001 9:29 AM 1 9:30 WASH HOUSE SUPERVISOR AM WASH HOUSE SUPERVISOR Deloris Chirinos MD LAB_1 Performing Organization Address City/[facility]/ZIP [facility] Phon e Number [facility] [phone] [phone] CHOLESTEROL LIPID PANEL FAST >12HR FAST (06/04/2001 9:29 AM WASH HOUSE SUPERVISOR) athologist Signature Cholesterol 197 <200 mg/dl [facility] Triglyceride 117 <200 mg/dl [facility] HDL 43 >35 mg/dl [facility] LDL, Calc. 131 mg/dl [facility] Hours Fasting 13 hours [facility] Specimen Anatomical Collection Method Collection Time Receive d Time (Source) Location / / Volume Laterality 06/04/2001 9:29 AM 1 9:30 WASH HOUSE SUPERVISOR AM WASH HOUSE SUPERVISOR Deloris Chirinos MD LAB_1 Performing Organization Address [facility] Phon e Number [facility] [phone] [phone] BILI - TOTAL (06/04/2001 9:29 AM WASH HOUSE SUPERVISOR) athologist Signature Bilirubin, 0.5 0.2 - 1.2 [facility] Total mg/dl Specimen Anatomical Collection Method Collection Time Receive d Time (Source) Location / / Volume Laterality 06/04/2001 9:29 AM 1 9:30 WASH HOUSE SUPERVISOR AM WASH HOUSE SUPERVISOR Deloris Chirinos MD LAB_1 Performing Organization Address City/[facility] Phon e Number [facility] [phone] [phone] AST (SGOT) (06/04/2001 9:29 AM WASH HOUSE SUPERVISOR) athologist Signature AST (SGOT) 43 <45 U/L [facility] Specimen Anatomical Collection Method Collection Time Receive d Time (Source) Location / / Volume Laterality 06/04/2001 9:29 AM 1 9:30 WASH HOUSE SUPERVISOR AM WASH HOUSE SUPERVISOR Deloris Chirinos MD LAB_1 Performing Organization Address City/State/ZIP Code Phon e Number [facility] [phone] [facility] [address] [phone] ALT (SGPT) (06/04/2001 9:29 AM WASH HOUSE SUPERVISOR) athologist Signature ALT (SGPT) 32 0 - 55 U/L [facility] Specimen Anatomical Collection Method Collection Time Receive d Time (Source) Location / / Volume Laterality 06/04/2001 9:29 AM 1 9:30 WASH HOUSE SUPERVISOR AM WASH HOUSE SUPERVISOR Deloris Chirinos MD LAB_1 Performing Organization Address [facility] Phon e Number [facility] [phone] [facility] [address] [place] [phone] FREE T4 (06/04/2001 9:29 AM WASH HOUSE SUPERVISOR) athologist Signature T4, Free 1.1 0.9 - 1.8 [facility] ng/dl Meds No [facility] Specimen Anatomical Collection Method Collection Time Receive d Time (Source) Location / / Volume Laterality 06/04/2001 9:29 AM 1 9:30 WASH HOUSE SUPERVISOR AM WASH HOUSE SUPERVISOR Deloris Chirinos MD LAB_1 Performing Organization Address City/[facility]/ZIP Code Phon e Number [employer] [phone] [facility] [address] [place] [phone] TSH, SENSITIVE (06/04/2001 9:29 AM WASH HOUSE SUPERVISOR) athologist Signature TSH 1.92 0.30 - 5.00 [facility] uIU/ml Thyroid Meds No [facility] Specimen Anatomical Collection Method Collection Time Receive d Time (Source) Location / / Volume Laterality 06/04/2001 9:29 AM 1 9:30 WASH HOUSE SUPERVISOR AM WASH HOUSE SUPERVISOR Deloris Chirinos MD LAB_1 Performing Organization Address City/[facility]/ZIP Code Phon e Number [employer] [phone] [facility] [address] [phone] (ABNORMAL) HEMOGRAM/PLTS (06/04/2001 9:29 AM WASH HOUSE SUPERVISOR) P athologist Signature WBC 8.9 3.6 - 11.0 [facility] k/ul RBC 4.41 4.0 - 5.2 [facility] M/ul Hemoglobin 13.3 12.0 - [facility] 16.0 g/dl HCT 39.3 36.0 - [facility] 46.0 % MCV 89.1 80 - 100 [facility] fl MCH 30.1 26 - 34 pg [facility] MCHC 33.7 32 - 36 % [facility] RDW 14.8 (H) 11.5 - [facility] 14.5 % Platelets 363 150 - 450 [facility] k/ul Specimen Anatomical Collection Method Collection Time Receive d Time (Source) Location / / Volume Laterality 06/04/2001 9:29 AM 1 9:30 WASH HOUSE SUPERVISOR AM WASH HOUSE SUPERVISOR Deloris Chirinos MD LAB_1 Performing Organization Address City/State/ZIP Code Phon e Number [facility] [phone] [phone] documented in this encounter Visit Diagnoses Not on filedocumented in this encounter Care Teams Ruling Machine Operator Relationship Specialty Start Date End Date Olamide Rodney MD PCP - General 09/25/10 01/11/21 [address] [place] [address] documented as of this encounter
--- OUTSIDE RECORDS SUMMARY | 2022-02-08 14:32 | XMS_ITS | Encounter Summary ---
:1960 Author Organization [employer] Address [address] [place] [address] Care Team Providers Name Role Phone Danielle Bender MD Primary Care Provider Encounter Details Date Type Department Care Team Description 06/20/2001 Orders Only [facility] Pract [facility] Reid Medrano MD [address] [place] [address] Social History Tobacco Use Types Packs/Day Years Used Date Smoking Tobacco: Never Assessed Sex Assigned at Date Recorded Not on file documented as of this encounter Plan of Treatment Not on filedocumented as of this encounter Visit Diagnoses Not on filedocumented in this encounter Care Teams Interior Design Instructor Relationship Specialty Start Date End Date aDnielle Bender MD PCP - General 04/09/01 08/07/[address] [place] [address] documented as of this encounter
--- OUTSIDE RECORDS SUMMARY | 2022-02-08 14:32 | XMS_ITS | Encounter Summary ---
:1960 Author Organization [employer] Address [address], [place] [address] Care Team Providers Name Role Phone Danielle Bender MD Primary Care Provider Encounter Details Date Type Department Care Team Description 06/04/2001 Office Visit [place] Deloris Chirinos, GYNECO LOGIC EXAMINATION; Internal Medicine OBESITY NOS; [address] [facility] [address] [facility] DEPRESSIVE DISORDER NOS; [place], [place] ASTHMA , UNSPECIFIED; [phone] SCREENING-ENDOC/NUT/MET NEC; [phone] PREVENTIVE CARE EXAM; (Work) SCREEN DIABETES MELLITUS; [...] HISTORY: She is single. 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 She is a nonsmoker. REVIEW OF [...] Patient to continue to work on weight [employer] and her exercise program. Her goal weight is 250 pounds. IN SUMMARY: New patient visit. Preventive health care visit. Obesity. Depression. Mild asthma. cc: RRAL NURSE documented in this encounter Plan of Treatment Not on filedocumented as of this encounter Visit Diagnoses Diagnosis Gynecological examination Obesity, unspecified (HRC) Obesity, unspecified Depressive disorder, not elsewhere class ified Unspecified asthma(493.90) (HRC) Unspecified asthma Screening for other and unspecified endo crine, nutritional, metabolic and immunity disorders [facility]ine [facility] Routine general medical examination at [facility] facility Screening for diabetes mellitus Other abnormal clinical finding Screening for malignant neoplasm of the cervix documented in this encounter Care Teams Coal Or Ore Controller Relationship Specialty Start Date End Date Danielle Bender MD PCP - General 04/09/01 08/07/10 [address] [place] [address] documented as of this encounter
--- OUTSIDE RECORDS SUMMARY | 2022-02-08 14:32 | XMS_ITS | Encounter Summary ---
:1960 Author Organization [facility] Address [address] [place] [address] Care Team Providers Name Role Phone Olamide Rodney MD Primary Care Provider Encounter Details Date Type Department Care Team Description 06/11/2001 Orders Only Deloris Newman MD [address] [place], [place] [phone] [place] [address] [phone] (Wo rk) Social History Tobacco Use Types Packs/Day Years Used Date Smoking Tobacco: Never Assessed Sex Assigned at Date Recorded Not on file documented as of this encounter Plan of Treatment Not on filedocumented as of this encounter Procedures Procedure Name Priority Date/Time Associated Diagnosis Comme nts HGB A1C Routine 06/11/2001 10:30 AM Results for this FITTING ROOM MAINTENANCE MECHANIC procedure are i n the results section . documented in this encounter Results (ABNORMAL) HGB A1C (06/11/2001 10:30 AM FITTING ROOM MAINTENANCE MECHANIC) P athologist Signature Hgb A1c 7.0 (H) 4.3 - 6.1 % [facility] Specimen Anatomical Collection Method Collection Time Receive d Time (Source) Location / / Volume Laterality 06/11/2001 10:30 06/11/2001 AM FITTING ROOM MAINTENANCE MECHANIC 10:31 AM FITTING ROOM MAINTENANCE MECHANIC Deloris Chirinos MD LAB_1 Performing Organization Address City/State/ZIP Code Phon e Number [facility] [phone] [facility] [address] [phone] documented in this encounter Visit Diagnoses Not on filedocumented in this encounter Care Teams Photocomposition Keyboard Operator Relationship Specialty Start Date End Date Olamide Rodney MD PCP - General 09/25/10 01/11/21 [address] [place], [place] [id number] documented as of this encounter
--- OUTSIDE RECORDS SUMMARY | 2022-02-08 14:32 | XMS_ITS | Encounter Summary ---
:1960 Author Organization [employer] Address [address] [place] [address] Care Team Providers Name Role Phone Danielle Bender MD Primary Care Provider Encounter Details Date Type Department Care Team Description 06/11/2001 Office Visit [place] KennedyMarilia hernandez DIABETES UNCOMPL ADULT-TYPE II; Diabetes Program [facility] OTHER SPECIFIED [address] [place] [address] [phone] Social History Tobacco Use Types Packs/Day Years [...] counseling documented in this encounter Care Teams Automotive Mechanic Relationship Specialty Start Date End Date Danielle Bender MD PCP - General 04/09/01 08/07/[address] [place] [address] documented as of this encounter
--- OUTSIDE RECORDS SUMMARY | 2022-02-08 14:33 | XMS_ITS | Encounter Summary ---
:1960 Author Organization [employer] Address [address] [place] [address] Care Team Providers Name Role Phone Found, No Pcp Primary Care Provider Unavailable Encounter Details Date Type Department Care Team Description 06/02/1997 Orders Only Corinna Sylvester MD [address] [place] [address] (Wo rk) Social History Tobacco Use Types Packs/Day Years Used Date Smoking Tobacco: Never Assessed Sex Assigned at Date Recorded Not on file documented as of this encounter Plan of Treatment Not on filedocumented as of this encounter Visit Diagnoses Not on filedocumented in this encounter Care Teams Nocturnist Relationship Specialty Start Date End Date Found, No PcpMD PCP - General 08/27/21 [address] [place] [address] documented as of this encounter
--- OUTSIDE RECORDS SUMMARY | 2022-02-08 14:33 | XMS_ITS | Encounter Summary ---
:1960 Author Organization [employer] Address [address] [place] [address] Care Team Providers Name Role Phone Jailene Cho MD Primary Care Provider Unavailable Encounter Details Date Type Department Care Team Description 09/22/1997 Office Visit [facility] ELENITA Mcneal ANGELIC INT DISORDER, Practice FOSTER Mendoza, UNSPEC [address] [place] [address] Social History Tobacco Use Types Packs/Day Years [...] Referral to TMJ clinic. Handout given. cc: ENT documented in this encounter Plan of Treatment Not on filedocumented as of this encounter Visit Diagnoses Diagnosis Temporomandibular joint disorders, unspe cified documented in this encounter Care Teams Blueberry Grower Relationship Specialty Start Date End Date Jailene Cho MD PCP - General 01/02/1999 documented as of this encounter
--- OUTSIDE RECORDS SUMMARY | 2022-02-08 14:33 | XMS_ITS | Encounter Summary ---
:1960 Author Organization [facility] Address [address] [place] [address] Care Team Providers Name Role Phone Jailene Cho MD Primary Care Provider Unavailable Reason for Visit Reason Comments SKIN TAGS VIA INTERFACE Encounter Details Date Type Department Care Team Description 03/20/1999 Office Visit [place] [facility] Joni Talbert MD SKIN DISORDER NOS Medicine [address] [address] [phone] Social History Tobacco Use Types Packs/Day Years [...] tissue documented in this encounter Care Teams Commissioning Editor Relationship Specialty Start Date End Date Jailene Cho MD PCP - General 01/02/1999 documented as of this encounter
--- OUTSIDE RECORDS SUMMARY | 2022-02-08 14:33 | XMS_ITS | Encounter Summary ---
:1960 Author Organization [employer] Address [address] [place] [address] Care Team Providers Name Role Phone Jailene Cho MD Primary Care Provider Unavailable Encounter Details Date Type Department Care Team Description 12/12/1997 Office Visit [facility] TMD Nicky Jackson [facility]CH[facility] [address] [place] [address] Social History Tobacco Use Types Packs/Day Years [...] dealing with the introduction of a new cold roll packer sheet iron into her judaism community, looking into the process of adoption, [...] asleep. 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 She reported that she really likes the [...] some psychosocial triggers (stresses associated with her judaism, the process of trying to adopt, work) [...] elsewhere documented in this encounter Care Teams Tire Groover Relationship Specialty Start Date End Date Jailene Cho MD PCP - General 01/02/1999 documented as of this encounter
--- OUTSIDE RECORDS SUMMARY | 2022-02-08 14:33 | XMS_ITS | Encounter Summary ---
:1960 Author Organization [employer] Address [address] [place] [address] Care Team Providers Name Role Phone Jailene Cho MD Primary Care Provider Unavailable Encounter Details Date Type Department Care Team Description 12/20/1996 Office Visit [facility]a [facility] D[facility] BENIGN SYLVIA SKIN ARM; Family Practice [facility] [place] BENIGN SYLVIA SKIN TRUNK [address] [place] [place] [address] [place] [address] Social History Tobacco Use Types Packs/Day Years [...] scrotum documented in this encounter Care Teams Missile Mechanic Relationship Specialty Start Date End Date Jailene Cho MD PCP - General 01/02/1999 documented as of this encounter
--- OUTSIDE RECORDS SUMMARY | 2022-02-08 14:33 | XMS_ITS | Encounter Summary ---
:1960 Author Organization [employer] Address [address] [place] [address] Care Team Providers Name Role Phone Found, No Pcp Primary Care Provider Unavailable Encounter Details Date Type Department Care Team Description 03/21/1997 Orders Only Kelly Mcneal, FOSTER, SHOE TURNER Social History Tobacco Use Types Packs/Day Years Used Date Smoking Tobacco: Never Assessed Sex Assigned at Date Recorded Not on file documented as of this encounter Plan of Treatment Not on filedocumented as of this encounter Visit Diagnoses Not on filedocumented in this encounter Care Teams Vice President Network Relationship Specialty Start Date End Date Found, No Pcp, PCP - General 08/27/21 [address] [place] [address] documented as of this encounter
--- OUTSIDE RECORDS SUMMARY | 2022-02-08 14:33 | XMS_ITS | Encounter Summary ---
:1960 Author Organization [employer] Address [address] [place] [address] Care Team Providers Name Role Phone Jailene Cho MD Primary Care Provider Unavailable Encounter Details Date Type Department Care Team Description 12/12/1997 Office Visit Hortencia TMD Jennifer Candelaria, PT MYALGIA AND MYOSITIS [address] [place] [address] Social History Tobacco Use Types Packs/Day Years [...] unspecified documented in this encounter Care Teams Division Sergeant Relationship Specialty Start Date End Date Jailene Cho MD PCP - General 01/02/1999 documented as of this encounter
--- OUTSIDE RECORDS SUMMARY | 2022-02-08 14:33 | XMS_ITS | Encounter Summary ---
:1960 Author Organization [employer] Address [address] [place] [address] Care Team Providers Name Role Phone Olamide Rodney MD Primary Care Provider Encounter Details Date Type Department Care Team Description 12/12/1999 Orders Only PARAM Sylvester, Corinna Brooke MD [address] [place], [place] [address] [place], [place] [phone] (Wo rk) Social History Tobacco Use Types [...] Corinna Sylvester MD LAB_1 Performing Organization Address [facility] Phon e Number [facility] Riskonnect [phone] [facility] [address] [place] [phone] SODIUM (12/12/1999 2:29 PM CDT) athologist [facility] Sodium 139 135 - 145 [facility] mmol/L Specimen Anatomical Collection Method Collection Time Receive d Time (Source) Location / / Volume Laterality 12/12/1999 2:29 PM 0 2:30 CDT PM CDT Corinna Sylvester MD LAB_1 Performing Organization Address [facility] Phon e Number [facility] [phone] [facility] [address] [place] [phone] POTASSIUM (12/12/1999 2:29 PM CDT) athologist Signature Potassium 4.3 3.5 - 5.3 [facility] mmol/L Specimen Anatomical Collection Method Collection Time Receive d Time (Source) Location / / Volume Laterality 12/12/1999 2:29 PM 200 0 2:30 CDT PM CDT Corinna Sylvester MD LAB_1 Performing Organization Address City/[facility] Code Phon e Number [employer] [facility] [phone] [facility] [address] [phone] GLUCOSE - RANDOM < 8HR FASTING) (12/12/1999 2:29 PM CDT) P athologist Signature Glucose 85 65 - 115 [facility] mg/dl Hours Fasting 1.0 hours [facility] Specimen Anatomical Collection Method Collection Time Receive d Time (Source) Location / / Volume Laterality 12/12/1999 2:29 PM 0 2:30 CDT PM CDT Corinna Sylvester MD LAB_1 Performing Organization Address [facility] Phon e Number [employer] [facility] [phone] [facility] [address] [place] [address] [phone] CREATININE (12/12/1999 2:29 PM CDT) athologist Signature Creatinine 0.9 0.5 - 1.2 [facility] mg/dl Specimen Anatomical Collection Method Collection Time Receive d Time (Source) Location / / Volume Laterality 12/12/1999 2:29 PM 0 2:30 CDT PM CDT Corinna Sylvester MD LAB_1 Performing Organization Address [facility] Phon e Number [employer] [phone] [facility] [address] [place] [address] [phone] (ABNORMAL) CHOLESTEROL, TOTAL AND HDL (12/12/1999 2:29 PM CDT) Component Value Ref Test Analysis Performed At [facility] gist Range Method Time Signature Cholesterol 205 (H) <200 [facility] mg/dl Cholesterol Result should not be interpreted without [facility] the patient's history of cardiovascular risk factors. HDL 45 >35 [facility] mg/dl Specimen Anatomical Collection Method Collection Time Receive d Time (Source) Location / / Volume Laterality 12/12/1999 2:29 PM 200 0 2:30 CDT PM CDT Corinna Sylvester MD LAB_1 Performing Organization Address City/State/[facility] Phon e Number [facility] [phone] [address] (ABNORMAL) HEMOGRAM/PLTS (12/12/1999 2:29 PM CDT) athologist Signature WBC 10.6 3.6 - 11.0 [facility] k/ul RBC 4.44 4.0 - 5.2 [facility] M/ul Hemoglobin 13.1 12.0 - [facility] 16.0 g/dl HCT 38.5 36.0 - [facility] 46.0 % MCV 86.5 80 - 100 [facility] fl MCH 29.5 26 - 34 pg [facility] MCHC 34.1 32 - 36 % [facility] RDW 15.8 (H) 11.5 - [facility] 14.5 % Platelets 363 150 - 450 [facility] k/ul Specimen Anatomical Collection Method Collection Time Receive d Time (Source) Location / / Volume Laterality 12/12/1999 2:29 PM 0 2:30 CDT PM CDT Corinna Sylvetser MD LAB_1 Performing Organization Address [facility] Code Phon e Number WebPT [phone] [address] PTT (12/12/1999 2:29 PM CDT) athologist Signature PTT 22.4 20 - 30 sec [facility] Specimen Anatomical Collection Method Collection Time Receive d Time (Source) Location / / Volume Laterality 12/12/1999 2:29 PM 200 0 2:30 CDT PM CDT Corinna Sylvester MD LAB_1 Performing Organization Address [facility] Phon e Number WebPT [phone] [address] PROTIME (12/12/1999 2:29 PM CDT) athologist Signature Protime 9.6 9.2 - 12.0 [facility] sec Coumadin No [facility] Specimen Anatomical Collection Method Collection Time Receive d Time (Source) Location / / Volume Laterality 12/12/1999 2:29 PM 0 2:30 CDT PM CDT Corinna Sylvester MD LAB_1 Performing Organization Address City/State/ZIP Code Phon e Number [facility] [phone] [facility] [address] [address] documented in this encounter Visit Diagnoses Not on filedocumented in this encounter Care Teams Brokerage Branch Manager Relationship Specialty Start Date End Date Olamide Rodney MD PCP - General 09/25/10 01/11/21 [address] [place], [place] [id number] documented as of this encounter
--- OUTSIDE RECORDS SUMMARY | 2022-02-08 14:33 | XMS_ITS | Encounter Summary ---
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
--- OUTSIDE RECORDS SUMMARY | 2022-02-08 14:33 | XMS_ITS | Encounter Summary ---
:1960 Author Organization [employer] Address [address] [place] [address] Care Team Providers Name Role Phone Jailene Cho MD Primary Care Provider Unavailable Reason for Visit Reason Comments Follow-up, NOS VIA INTERFACE Encounter Details Date Type Department Care Team Description 12/12/1999 Office Visit [place] [facility] Corinna Sylvester SPECIFIED VIRAL WARTS; Practice MD Mendy DEPRESSIVE DISORDER NOS; [address] [place] [address] 96 [phone] [facility] ASTHMA W/O STATUS ASTHMATICUS; [place], [place] LABORA TORY EXAMINATION [phone] Social History Tobacco Use Types Packs/Day Years Used Date Smoking Tobacco: Never Assessed Sex Assigned at Date Recorded Not on file documented as of this encounter Progress Notes Corinna Sylvester - 12/12/1999 12:00 AM CDTSUBJECTIVE: 38-year-old woman here for a follow up. When she recently [facility], there were problems with the clotting and [...] Increased clotting with having blood drawn at [facility]. Plantar wart. Asthma. Facial hair growth. PLAN: [...] disorder, not elsewhere class ified Unspecified asthma(493.90) ([facility]) Unspecified asthma Laboratory examination documented in this encounter Care Teams Croze Cutter Relationship Specialty Start Date End Date Jailene Cho MD PCP - General 01/02/1999 documented as of this encounter
--- OUTSIDE RECORDS SUMMARY | 2022-02-08 14:33 | XMS_ITS | Encounter Summary ---
:1960 Author Organization [employer] Address [address] [place] [address] Care Team Providers Name Role Phone Zzdeclined, Primary Care Provid Primary Care Provider Candace oden Reason for Visit Reason Comments Follow-up, NOS VIA INTERFACE Encounter Details Date Type Department Care Team Description 02/06/2000 Office Visit [place] [facility] Corinna Sylvester R SPECIFIED VIRAL Practice MD Mendy [address] [phone] Social History Tobacco Use Types Packs/Day Years [...] warts documented in this encounter Care Teams Director Of Strategic Initiatives Relationship Specialty Start Date End Date Zzdearuna, Primary Care Provid PCP - General 01/22/00 07/20/00 documented as of this encounter
--- OUTSIDE RECORDS SUMMARY | 2022-02-08 14:33 | XMS_ITS | Encounter Summary ---
:1960 Author Organization [employer] Address [address] [place] [address] Care Team Providers Name Role Phone Jailene Cho MD Primary Care Provider Unavailable Encounter Details Date Type Department Care Team Description 03/14/1997 Orders Only [facility] TAMELA Mcneal [facility] FOSTER Mendoza, NEOP-BREAST [address] [place] [phone] Social History Tobacco Use Types Packs/Day Years [...] MD cc: Radiology MARÍA Dobbs Kelly Mcneal SURGICAL AIDE, TON CYLINDER INSPECTOR RAD_BI documented in this encounter Visit Diagnoses Diagnosis Screening for malignant neoplasm of the breast Breast screening, unspecified documented in this encounter Care Teams Fuse Assembler Relationship Specialty Start Date End Date Jailene Cho MD PCP - General 01/02/1999 documented as of this encounter"
--- OUTSIDE RECORDS SUMMARY | 2022-02-08 14:33 | XMS_ITS | Encounter Summary ---
:1960 Author Organization [employer] Address [address] [place] [address] Care Team Providers Name Role Phone Jailene Cho MD Primary Care Provider Unavailable Encounter Details Date Type Department Care Team Description 04/07/1997 Office Visit Antonio Vidal MD VACCINE FOR INFLUENZA [address] [place] [phone] (Wo rk) Social History Tobacco Use Types Packs/Day Years Used Date Smoking Tobacco: Never Assessed Sex Assigned at Date Recorded Not on file documented as of this encounter Plan of Treatment Not on filedocumented as of this encounter Visit Diagnoses Diagnosis VACCINE FOR INFLUENZA documented in this encounter Care Teams It Manager Relationship Specialty Start Date End Date Jailene Cho MD PCP - General 01/02/1999 documented as of this encounter
--- OUTSIDE RECORDS SUMMARY | 2022-02-08 14:33 | XMS_ITS | Encounter Summary ---
:1960 Author Organization [employer] Address [address] [place] [address] Care Team Providers Name Role Phone Jailene Cho MD Primary Care Provider Unavailable Reason for Visit Reason Comments LUMP,NOS VIA INTERFACE Encounter Details Date Type Department Care Team Description 09/19/1999 Office Visit [place] [facility] José Cast MD WARTS (UNSPECIFIED) Practice [address] [place] 8[address]60 [address] [place] [address] [phone] Social History Tobacco Use Types Packs/Day Years [...] Return in two weeks for reevaluation. cc: WORK WASHER documented in this encounter Plan of Treatment Not on filedocumented as of this encounter Visit Diagnoses Diagnosis Viral warts, unspecified documented in this encounter Care Teams Chief Green Officer Relationship Specialty Start Date End Date Jailene Cho MD PCP - General 01/02/1999 documented as of this encounter
--- OUTSIDE RECORDS SUMMARY | 2022-02-08 14:33 | XMS_ITS | Encounter Summary ---
:1960 Author Organization [facility] Address [address] [place] [address] Care Team Providers Name Role Phone Jailene Cho MD Primary Care Provider Unavailable Encounter Details Date Type Department Care Team Description 04/06/1998 Office Visit Kv[facility] Lowrey MD VACCINE FOR INFLUENZA [address] [place], [place] [phone] (Wo rk) Social History Tobacco Use Types Packs/Day Years Used Date Smoking Tobacco: Never Assessed Sex Assigned at Date Recorded Not on file documented as of this encounter Plan of Treatment Not on filedocumented as of this encounter Visit Diagnoses Diagnosis VACCINE FOR INFLUENZA documented in this encounter Care Teams Nickel Plant Operator Relationship Specialty Start Date End Date Jailene Cho MD PCP - General 01/02/1999 documented as of this encounter
--- OUTSIDE RECORDS SUMMARY | 2022-02-08 14:33 | XMS_ITS | Encounter Summary ---
:1960 Author Organization [employer] Address [address] [place] [address] Care Team Providers Name Role Phone Jailene Cho MD Primary Care Provider Unavailable Encounter Details Date Type Department Care Team Description 03/27/1999 Office Visit [place] Deloris Chirinos VACCIN E FOR INFLUENZA senior sales representative [address] [place] [phone] Social History Tobacco Use Types Packs/Day Years Used Date Smoking Tobacco: Never Assessed Sex Assigned at Date Recorded Not on file documented as of this encounter Plan of Treatment Not on filedocumented as of this encounter Visit Diagnoses Diagnosis VACCINE FOR INFLUENZA documented in this encounter Care Teams Rolfer Relationship Specialty Start Date End Date Jailene Cho MD PCP - General 01/02/1999 documented as of this encounter
--- OUTSIDE RECORDS SUMMARY | 2022-02-08 14:33 | XMS_ITS | Encounter Summary ---
:1960 Author Organization [employer] Address [address] [place] [address] Care Team Providers Name Role Phone Jailene Cho MD Primary Care Provider Unavailable Encounter Details Date Type Department Care Team Description 03/02/1998 Office Visit [place] [facility] Jailene Cho MD BRONCHITIS NOS Medicine [address] [place] [address] Social History Tobacco Use Types Packs/Day Years [...] ronic documented in this encounter Care Teams Demand Planner Relationship Specialty Start Date End Date Jailene Cho MD PCP - General 01/02/1999 documented as of this encounter
--- OUTSIDE RECORDS SUMMARY | 2022-02-08 14:33 | XMS_ITS | Encounter Summary ---
:1960 Author Organization [facility] Address [address] [place] [address] Care Team Providers Name Role Phone Jailene Cho MD Primary Care Provider Unavailable Encounter Details Date Type Department Care Team Description 01/27/1997 Office Visit [email or web address] WONG Mcneal [facility] FOSTER Mendoza[address] [address] Social History Tobacco Use Types Packs/Day Years Used Date Smoking Tobacco: Never Assessed Sex Assigned at Date Recorded Not on file documented as of this encounter Progress Notes Kelly Mcneal - 01/27/1997 12:00 AM CDTS: 36-year-old here for a preventative exam. She recently has come back to [facility]. She used to belong in . She's requesting a baseline mammogram, cholesterol, blood sugar, and thyroid tests today. She's always had normal Pap smears. SOCIAL HISTORY: She's single. 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 HEALTH HABITS: She has two or [...] Diagnoses Diagnosis Routine general medical examination at [facility] Routine general medical examination at [facility] care facility documented in this encounter Care Teams Deputy Insurance Commissioner Relationship Specialty Start Date End Date Jailene Cho MD PCP - General 01/02/1999 documented as of this encounter
--- OUTSIDE RECORDS SUMMARY | 2022-02-08 14:33 | XMS_ITS | Encounter Summary ---
:1960 Author Organization [facility] Address [address] [place] [address] Care Team Providers Name Role Phone Dank [...] 8:35 AM Res ults for this SCREEN COMPENSATION AGENT procedure are i n the results section. documented in this encounter Results RAPID, GPA STREP SCREEN (WAITING) (09/07/1997 8:35 AM COMPENSATION AGENT) [facility] Method Time Signature Patient Home [id number] trippiece Phone # Patient Work [id number] trippiece Phone # Grp A Rapid Negative [facility] Screen Grp A Culture Negative [facility] Final Specimen Anatomical Collection Method Collection Time Receive d Time (Source) Location / / Volume Laterality 09/07/1997 8:35 AM 8 8:36 COMPENSATION AGENT AM COMPENSATION AGENT Allergy Wb Nurse LAB_1 Performing Organization Address City/State/ZIP Code Phon e Number [facility] [phone] [facility] [address] [address] documented in this encounter Visit Diagnoses Not on filedocumented in this encounter Care Teams Manager Personal Relationship Specialty Start Date End Date Dank Myers PCP - General 04/01/1997 01/01/[address] [address] documented as of this encounter
--- OUTSIDE RECORDS SUMMARY | 2022-02-08 14:33 | XMS_ITS | Encounter Summary ---
:1960 Author Organization [employer] Address [address] [place] [address] Care Team Providers Name Role Phone Found, No Pcp Primary Care Provider Unavailable Encounter Details Date Type Department Care Team Description 05/29/1998 Orders Only Corinna Sylvester MD [address] [place] [phone] (Wo rk) Social History Tobacco Use Types Packs/Day Years Used Date Smoking Tobacco: Never Assessed Sex Assigned at Date Recorded Not on file documented as of this encounter Plan of Treatment Not on filedocumented as of this encounter Visit Diagnoses Not on filedocumented in this encounter Care Teams Hairmasters Manager Relationship Specialty Start Date End Date Found, No PcpMD PCP - General 08/27/21 [address] [place] [address] documented as of this encounter
--- OUTSIDE RECORDS SUMMARY | 2022-02-08 14:33 | XMS_ITS | Encounter Summary ---
:1960 Author Organization [employer] Address [address] [place] [address] Care Team Providers Name Role Phone Jailene Cho MD Primary Care Provider Unavailable Encounter Details Date Type Department Care Team Description 06/02/1997 [place] DEPRESSIVE DISORDER Internal Medicine MD Mendy NOS [address] [facility] [address] [place] [address] [phone] Social History Tobacco Use Types Packs/Day Years Used Date Smoking Tobacco: Never Assessed Sex Assigned at Date Recorded Not on file documented as of this encounter Progress Notes Corinna Sylvester J - 06/02/1997 12:00 AM CSTS: 36-year-old woman who has had intermittent symptoms of depression over many years. One episode about 10 years ago when she was living in [place] was more severe and she was actually [...] ified documented in this encounter Care Teams Surgeon Partner Relationship Specialty Start Date End Date Jailene Cho MD PCP - General 01/02/1999 documented as of this encounter
--- OUTSIDE RECORDS SUMMARY | 2022-02-08 14:33 | XMS_ITS | Encounter Summary ---
:1960 Author Organization [employer] Address [address] [place] [address] Care Team Providers Name Role Phone Jailene Cho MD Primary Care Provider Unavailable Encounter Details Date Type Department Care Team Description 11/01/1996 Office Visit [place] Dank Myers LIPOMA NOS; Family [facility] [place] VACCINE FOR TETANUS + DIPHTH ERIA [address] [facility] [address] [place] [phone] [place] [address] [place] [address] Social History Tobacco Use Types Packs/Day Years [...] (Td) documented in this encounter Care Teams User Experience Architect Relationship Specialty Start Date End Date Jailene Cho MD PCP - General 01/02/1999 documented as of this encounter
--- OUTSIDE RECORDS SUMMARY | 2022-02-08 14:33 | XMS_ITS | Encounter Summary ---
:1960 Author Organization [employer] Address [address] [place] [address] Care Team Providers Name Role Phone Jailene Cho MD Primary Care Provider Unavailable Encounter Details Date Type Department Care Team Description 01/11/1998 Office Visit Hortencia TMD Gab Leger TMJ DISORD ARTICULAR DISC AB NL; [address] C, DDS, [place] [address] Social History Tobacco Use Types Packs/Day Years [...] unspecified documented in this encounter Care Teams Early Childhood Educator Aide Relationship Specialty Start Date End Date Jailene Cho MD PCP - General 01/02/1999 documented as of this encounter
--- OUTSIDE RECORDS SUMMARY | 2022-02-08 14:33 | XMS_ITS | Encounter Summary ---
:1960 Author Organization [facility] Address [address] [address] Care Team Providers Name Role Phone Found, [...] on filedocumented in this encounter Care Teams Expansion Joint Finisher Relationship Specialty Start Date End Date Found, No PcpMD PCP - General 08/27/21 [address] [place] [address] documented as of this encounter
--- OUTSIDE RECORDS SUMMARY | 2022-02-08 14:33 | XMS_ITS | Encounter Summary ---
:1960 Author Organization [employer] Address [address] [place] [address] Care Team Providers Name Role Phone Jailene Cho MD Primary Care Provider Unavailable Encounter Details Date Type Department Care Team Description 04/06/1998 Office Visit [place] Dank Myers VACCINE FOR STREP Family Practice [facility] [place] PNEUMONIAE [address] [place], [place] [address] [place] [address] [place] [address] Social History Tobacco Use Types Packs/Day Years Used Date Smoking Tobacco: Never Assessed Sex Assigned at Date Recorded Not on file documented as of this encounter Plan of Treatment Not on filedocumented as of this encounter Visit Diagnoses Diagnosis Need for prophylactic vaccination agains t Streptococcus pneumoniae (pneumococcus) Need for prophylactic vaccination agains t streptococcus pneumoniae (pneumococcus) documented in this encounter Care Teams Brake Repair Mechanic Relationship Specialty Start Date End Date Jailene Cho MD PCP - General 01/02/1999 documented as of this encounter
--- OUTSIDE RECORDS SUMMARY | 2022-02-08 14:33 | XMS_ITS | Encounter Summary ---
:1960 Author Organization [facility] Address [address] [place] [address] Care Team Providers Name Role Phone Unavailable Primary Care Provider Unavailable Encounter Details Date Type Department Care Team Description 01/27/1997 Notes/Orders Kelly Mcneal, FOSTER, MACHINE CAPTAIN Social History Tobacco Use Types Packs/Day Years [...] Results TSH, SENSITIVE (01/27/1997 9:10 AM CDT) [facility] Method Time Signature TSH 3.22 0.30 - [facility] 5.00 uIU/ml TSH PLEASE NOTE CHANGE IN EXPECTED VALUES [facility] Please Note Change in Thyroid Ordering Protocol Effective 12/06/96 Thyroid Meds No [facility] Specimen Anatomical Collection Method Collection Time Receive d Time (Source) Location / / Volume Laterality 01/27/1997 9:10 AM 7 9:11 CDT AM CDT Kelly Mcneal APRN, CNP LAB_1 Performing Organization Address [facility] Phon e Number [facility] [phone] [phone] GLUCOSE - FASTING > 6 HRS FASTING (01/27/1997 9:10 AM CDT) athologist Signature Glucose 88 70 - 115 [facility] mg/dl Hours Fasting 12 hours [facility] Specimen Anatomical Collection Method Collection Time Receive d Time (Source) Location / / Volume Laterality 01/27/1997 9:10 AM 7 9:11 CDT AM CDT Kelly Elizabet HUTCHISON CNP LAB_1 Performing Organization Address [facility] Phon e Number [facility] [phone] [phone] FASTING LIPID PANEL (>12HR FAST) INCL:CHOL,HDL,TRIG,LDL(CALC (01/27/1997 9:10 AM CDT) athologist Signature Cholesterol 182 <240 mg/dl [facility] Triglyceride 123 <300 mg/dl [facility] HDL 43 >35 mg/dl [facility] LDL, Calc. 114 mg/dl [facility] Hours Fasting 12 hours [facility] Specimen Anatomical Collection Method Collection Time Receive d Time (Source) Location / / Volume Laterality 01/27/1997 9:10 AM 7 9:11 CDT AM CDT Kelly Elizabet HUTCHISON CNP LAB_1 Performing Organization Address [facility] Phon e Number [facility] [phone] [phone] CBC HEME PANEL (01/27/1997 9:10 AM CDT) athologist Signature WBC 7.1 4.2 - 10.0 [facility] k/ul RBC 4.62 3.8 - 5.4 [facility] M/ul Hemoglobin 13.8 12 - 16 [facility] g/dl HCT 41.1 35 - 46 % [facility] MCV 89 80 - 98 fl [facility] MCH 29.9 27 - 34 pg [facility] MCHC 33.6 32 - 36 % [facility] Platelets 302 150 - 450 [facility] k/ul Specimen Anatomical Collection Method Collection Time Receive d Time (Source) Location / / Volume Laterality 01/27/1997 9:10 AM 7 9:11 CDT AM CDT Kelly Mcneal APRN, CNP LAB_1 Performing Organization Address City/State/ZIP Code Phon e Number [facility] [phone] [address] documented in this encounter Visit Diagnoses Not on filedocumented in this encounter
--- OUTSIDE RECORDS SUMMARY | 2022-02-08 14:33 | XMS_ITS | Encounter Summary ---
:1960 Author [facility] Address [address] [place] [address] Care Team Providers Name Role Phone Jailene Cho MD Primary Care Provider Unavailable Encounter Details Date Type Department Care Team Description 11/16/1997 Office Visit Hortencia TMD Arsen, Gab MYALGIA AND MYOSITIS NOS; [address] C, DDS, MS ENTHESOPATHY, SITE NOS; [place] [address] [facility]IC[facility] [phone] Social History Tobacco Use Types Packs/Day Years [...] joint documented in this encounter Care Teams Education Rn Relationship Specialty Start Date End Date Jailene Cho MD PCP - General 01/02/1999 documented as of this encounter
--- OUTSIDE RECORDS SUMMARY | 2022-02-08 14:33 | XMS_ITS | Encounter Summary ---
:1960 Author Organization [employer] Address [address] [place] [address] Care Team Providers Name Role Phone Zzdeclined, Primary Care Provid Primary Care Provider Candace oden Reason for Visit Reason Comments Influenza (Flu) VIA INTERFACE Encounter Details Date Type Department Care Team Description 07/08/2000 Office Visit Nicholas Klein Shaila Cast, ASTHMA W /O STATUS returned goods receiving clerk ASTHMATICUS 1430 [facility] [address] [place], [place] [phone] Social History Tobacco Use Types Packs/Day Years [...] up if she's not getting better. 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
--- OUTSIDE RECORDS SUMMARY | 2022-02-08 14:33 | XMS_ITS | Encounter Summary ---
:1960 Author Organization [employer] Address [address] [place] [address] Care Team Providers Name Role Phone Jailene Cho MD Primary Care Provider Unavailable Encounter Details Date Type Department Care Team Description 09/07/1997 Office Visit [facility] Corinna Sylvester E PHARYNGITIS(SORE Practice MD Mendy THROAT) [address] [place] [address] [address] [place] [address] [phone] Social History Tobacco Use Types Packs/Day Years Used Date Smoking Tobacco: Never Assessed Sex Assigned at Date Recorded Not on file documented as of this encounter Plan of Treatment Not on filedocumented as of this encounter Visit Diagnoses Diagnosis Acute pharyngitis documented in this encounter Care Teams Repairer Screen Crusher Relationship Specialty Start Date End Date Jaielne Cho MD PCP - General 01/02/1999 documented as of this encounter
--- OUTSIDE RECORDS SUMMARY | 2022-02-08 14:33 | XMS_ITS | Encounter Summary ---
:1960 Author Organization [facility] Address [address] [place] [address] Care Team Providers Name Role Phone Jailene [...] Epith, 0 /hpf [facility] Squamous Bact 0 [facility] Casts 0 /lpf [facility] Specimen Anatomical Collection Method Collection Time Receive d Time (Source) Location / / Volume Laterality 02/20/1999 9:23 AM 9 9:24 CDT AM CDT Jailene Cho MD LAB_1 Performing Organization Address City/[facility] Phon e Number [facility] [employer] [phone] [facility] [address] [phone] UA MICRO IF (02/20/1999 9:23 AM CDT) athologist Signature Appr Dark Yel [facility] Appr Clear [facility] Sp Gr 1.027 1.005 - [facility] 1.030 Leuk 0 0 [facility] Nitr 0 0 [facility] pH 6.0 4.5 - 8.0 [facility] Prot 0 0 mg/dl [facility] Gluc 0 0 g/dl [facility] Ket 0 0 [facility] Urob 0.1-1 0.1 - 1 [facility] mg/dl Bili 0 0 [facility] Blood Sml 0 [facility] Specimen Anatomical Collection Method Collection Time Receive d Time (Source) Location / / Volume Laterality 02/20/1999 9:23 AM 9 9:24 CDT AM CDT Jailene Cho MD LAB_1 Performing Organization Address [facility] Phon e Number [facility] [employer] [phone] [facility] [address] [place] [phone] WBC, BLOOD (02/20/1999 9:23 AM CDT) athologist Signature WBC 10.5 3.6 - 11.0 [facility] k/ul Specimen Anatomical Collection Method Collection Time Receive d Time (Source) Location / / Volume Laterality 02/20/1999 9:23 AM 9 9:24 CDT AM CDT Jailene Cho MD LAB_1 Performing Organization Address City/[facility]/ZIP Code Phon e Number [facility] [phone] [facility] [address] [place] [phone] PLATELETS (02/20/1999 9:23 AM CDT) P athologist Signature Platelets 374 150 - 450 [facility] k/ul Specimen Anatomical Collection Method Collection Time Receive d Time (Source) Location / / Volume Laterality 02/20/1999 9:23 AM 9 9:24 CDT AM CDT Jailene Cho MD LAB_1 Performing Organization Address [facility] Phon e Number [facility] [phone] [facility] [address] [place] [phone] HEMOGLOBIN, BLOOD (02/20/1999 9:23 AM CDT) P athologist Signature Hemoglobin 12.6 12.0 - 16.0 [facility] g/dl Specimen Anatomical Collection Method Collection Time Receive d Time (Source) Location / / Volume Laterality 02/20/1999 9:23 AM 9 9:24 CDT AM CDT Jailene Cho MD LAB_1 Performing Organization Address [facility] Phon e Number [facility] [employer] [phone] [phone] (ABNORMAL) GLUCOSE - FASTING > 8 HRS FASTING (02/20/1999 9:23 AM CDT) [facility] gist Method Time Signature Glucose 123 (H) 70 - 110 [facility] mg/dl Hours Fasting 12 hours [facility] Specimen Anatomical Collection Method Collection Time Receive d Time (Source) Location / / Volume Laterality 02/20/1999 9:23 AM 9 9:24 CDT AM CDT Jailene Cho MD LAB_1 Performing Organization Address [facility] Phon e Number [facility] [employer] [phone] [phone] TSH, SENSITIVE (02/20/1999 9:23 AM CDT) P athologist Signature TSH 3.67 0.30 - 5.00 [facility] uIU/ml Thyroid Meds No [facility] Specimen Anatomical Collection Method Collection Time Receive d Time (Source) Location / / Volume Laterality 02/20/1999 9:23 AM 9:24 CDT AM CDT Jailene Cho MD LAB_1 Performing Organization Address City/State/ZIP Code Phon e Number [facility] [phone] [facility] [address] [phone] documented in this encounter Visit Diagnoses Not on filedocumented in this encounter Care Teams Tube Mill Operator Relationship Specialty Start Date End Date Jailene Cho MD PCP - General 01/02/1999 documented as of this encounter
--- OUTSIDE RECORDS SUMMARY | 2022-02-08 14:33 | XMS_ITS | Encounter Summary ---
:1960 Author Organization [employer] Address [address] [place] [address] Care Team Providers Name Role Phone Jailene Cho MD Primary Care Provider Unavailable Encounter Details Date Type Department Care Team Description 06/29/1997 Office Visit Nicholas Klein Corinna Sylvester DEPRESSIVE DISORDER Internal Medicine MD Mendy NOS 1430 [facility] 96 [address] [place] [address] [phone] Social History Tobacco Use Types Packs/Day Years [...] ified documented in this encounter Care Teams Tube Knitter Relationship Specialty Start Date End Date Jailene Cho MD PCP - General 01/02/1999 documented as of this encounter
--- OUTSIDE RECORDS SUMMARY | 2022-02-08 14:33 | XMS_ITS | Encounter Summary ---
:1960 Author Organization [facility] Address [address] [place] [address] Care Team Providers Name Role Phone Jailene Cho MD Primary Care Provider Unavailable Encounter Details Date Type Department Care Team Description 12/30/1996 Office Visit [facility] JULI Vidal NG CHANGE Practice MD Tio SUTURE/STAPLE REMOVAL 1430 [facility] 96 [address] [place] [address] [phone] Social History Tobacco Use Types Packs/Day Years Used Date Smoking Tobacco: Never Assessed Sex Assigned at Date Recorded Not on file documented as of this encounter Plan of Treatment Not on filedocumented as of this encounter Visit Diagnoses Diagnosis Attention to dressings and sutures documented in this encounter Care Teams Eyeglass Lens Grinder Relationship Specialty Start Date End Date Jailene Cho MD PCP - General 01/02/1999 documented as of this encounter
--- OUTSIDE RECORDS SUMMARY | 2022-02-08 14:33 | XMS_ITS | Encounter Summary ---
:1960 Author Organization [employer] Address [address] [place] [address] Care Team Providers Name Role Phone Zzdeclined, Primary Care Provid Primary Care Provider Candace oden Reason for Visit Reason Comments LEG PAIN spucc IM Encounter Details Date Type Department Care Team Description 07/20/2000 Telephone Careline Marti Luna RN LEG PAIN (spucc IM) [address] [facility] [place], [place] [address] [facility] [phone] [place] [address] Social History Tobacco Use Types Packs/Day Years Used Date Smoking Tobacco: Never Assessed Sex Assigned at Date Recorded Not on file documented as of this encounter Nursing Notes 07/20/2000 11:59 PM GROCERY DEPARTMENT MANAGER >> MARTI Isaac Jul 20, 2000 5:12 [...] on filedocumented in this encounter Care Teams Repulping Supervisor Relationship Specialty Start Date End Date Kylee Primary Care Provid PCP - General 01/22/00 07/20/00 documented as of this encounter
--- OUTSIDE RECORDS SUMMARY | 2022-02-08 14:33 | XMS_ITS | Encounter Summary ---
:1960 Author Organization [employer] Address [address] [place] [address] Care Team Providers Name Role Phone Shaila Cast MD Primary Care Provider Reason for Visit Reason Comments LEG PAIN VIA INTERFACE Encounter Details Date Type Department Care Team Description 07/20/2000 Office Visit [facility] ul PAIN IN LIMB [address] [place], [place] [phone] Social History Tobacco Use Types Packs/Day Years [...] patient then goes home. In any event, legal secretary receptionist or clerical person called for me and the stress test technician was most able to say that the name wasn't familiar to him but that this wasn't necessarily meaningful but in any event all the studies done thus far were negative. IN SUMMARY: RULE OUT DEEP VENOUS THROMBOSIS cc: ER/WAITRESS documented in this encounter Plan of Treatment Not on filedocumented as of this encounter Visit Diagnoses Diagnosis Pain in limb documented in this encounter Care Teams Tea Room Manager Relationship Specialty Start Date End Date Shaila Cast MD PCP - General 07/21/00 04/08/[address] [place] [address] documented as of this encounter
--- OUTSIDE RECORDS SUMMARY | 2022-02-08 14:33 | XMS_ITS | Encounter Summary ---
:1960 Author Organization [facility] [facility] Address [address] [address] Care Team Providers Name Role Phone Jailene Cho MD Primary Care Provider Unavailable Encounter Details Date Type Department Care Team Description 03/21/1997 Office Visit [facility] Elizabet, ACUTE PHARYNGITIS(SORE THROAT); Practice FOSTER Mendoza, ACUTE SINUSITIS NOS; [address] ASTHMA W/O STATUS ASTHMATICU S; [place], [place] BRONCHIT IS NOS [phone] Social History Tobacco Use Types Packs/Day Years [...] Acute pharyngitis Acute sinusitis, unspecified Unspecified asthma(493.90) ([facility]) Unspecified asthma Bronchitis, not specified as acute or ch ronic documented in this encounter Care Teams Drop Press Hand Relationship Specialty Start Date End Date Jailene Cho MD PCP - General 01/02/1999 documented as of this encounter
--- OUTSIDE RECORDS SUMMARY | 2022-02-08 14:33 | XMS_ITS | Encounter Summary ---
:1960 Author Organization [employer] Address [address] [address] Care Team Providers Name Role Phone Jailene [...] BIRADS CATEGORY 1 - NEGATIVE MAMMOGR AM Brien Fagan MD cc: Radiology Jailene Coh MD Jailene Cho MD RAD_BI documented in this encounter Visit Diagnoses Not on filedocumented in this encounter Care Teams Convention Worker Relationship Specialty Start Date End Date Jailene Cho MD PCP - General 01/02/1999 documented as of this encounter
--- NOTE | 2022-02-08 14:40 | CRLHL7_ITS ---
For Patients: As a result of the Century Cures Act, medical imaging exams and procedure reports are released immediately into your electronic medical record. You may view this report before your referring provider. If you have questions, please contact your health care provider. BILATERAL SCREENING MAMMOGRAM WITH COMPUTER-AIDED DETECTION AND TOMOSYNTHESIS TECHNIQUE: CC and MLO views were obtained. These mammographic images have been obtained using full-field digital technique. These mammographic images were interpreted with the benefit of computer-aided detection. Breast Tomosynthesis was used in this interpretation. COMPARISON FILM: 01/30/21, 01/20/20, 01/18/19. FINDINGS: The breasts are almost entirely fatty IMPRESSION: There is no radiographic evidence for malignancy. ASSESSMENT: BI-RADS Category 1: Negative RECOMMENDATION: Routine screening mammogram in 1 year. A lay language report of this examination will be provided to the patient. David Chan M.D. Diagnostic Radiologist [email or web address] JUWAN/Dictated by: David Chan MD @ 02/11/2022 1:21:00 PM (Electronically Signed)
== END 2022-02-08 14:23 | disposition home or self-care (01) ==
LOC: MAMMO 14:22
PROVIDERS: PCP Internal Medicine; Visit Provider Internal Medicine
DX: Z12.31 Encounter for screening mammogram for malignant neoplasm of breast (principal)
CPT/HCPCS: 77063; 77067

== ENCOUNTER 2023-01-02 14:03 | Outpatient (CLI) | payer OTHER, SELFPAY | END 2023-01-02 14:04 | disposition home or self-care (01) | PROVIDERS: PCP Internal Medicine; Visit Provider Nurse Practitioner Family | DX: R79.89 Other specified abnormal findings of blood chemistry (principal) | CPT/HCPCS: 85379 ==

== ENCOUNTER 2023-02-14 09:26 | Outpatient (CLI) | payer OTHER, SELFPAY ==
--- NOTE | 2023-02-14 09:45 | CRLHL7_ITS ---
For Patients: As a result of the Century Cures Act, medical imaging exams and procedure reports are released immediately into your electronic medical record. You may view this report before your referring provider. If you have questions, please contact your health care provider. BILATERAL SCREENING MAMMOGRAM WITH COMPUTER-AIDED DETECTION AND TOMOSYNTHESIS TECHNIQUE: CC and MLO views were obtained. These mammographic images have been obtained using full-field digital technique. These mammographic images were interpreted with the benefit of computer-aided detection. Breast Tomosynthesis was used in this interpretation. COMPARISON FILM: 02/08/22, 01/30/21, 01/20/20. FINDINGS: There are scattered areas of fibroglandular density IMPRESSION: There is no radiographic evidence for malignancy. ASSESSMENT: BI-RADS Category 1: Negative RECOMMENDATION: Routine screening mammogram in 1 year. A lay language report of this examination will be provided to the patient. David Chan M.D. Diagnostic Radiologist [email or web address] JUWAN/Dictated by: David Chan MD @ 02/20/2023 10:52:00 AM (Electronically Signed)
== END 2023-02-14 09:27 | disposition home or self-care (01) ==
LOC: MAMMO 09:26
PROVIDERS: PCP Internal Medicine; Visit Provider Internal Medicine
DX: Z12.31 Encounter for screening mammogram for malignant neoplasm of breast (principal)
CPT/HCPCS: 77063; 77067

== ENCOUNTER 2023-02-19 09:10 | Outpatient (CLI) | payer OTHER, SELFPAY | END 2023-02-19 09:11 | disposition home or self-care (01) | LOC: NFLDREF 02-21 06:19 | PROVIDERS: PCP Internal Medicine; Referring Provider Internal Medicine; Visit Provider Internal Medicine | DX: Z00.00 Encounter for general adult medical examination without abnormal findings (principal); E11.9 Type 2 diabetes mellitus without complications; R74.8 Abnormal levels of other serum enzymes; E55.9 Vitamin D deficiency, unspecified; E66.01 Morbid (severe) obesity due to excess calories; Z98.84 Bariatric surgery status | CPT/HCPCS: 80053; 80061; 82043; 82306; 82525; 82570; 82607; 82728; 82747; 83735; 84443; 84446; 84590; 84597; 84630 ==

== ENCOUNTER 2024-02-16 10:05 | Outpatient (CLI) | payer MEDICARE, BC, SELFPAY ==
--- OUTSIDE RECORDS SUMMARY | 2024-02-16 10:09 | XMS_ITS | Encounter Summary ---
Author Organization [employer] Address [address] [place] [address] Care Team Providers Care Supervisor In Circuit Testing Name Role Phone Found, No Pcp Primary Care Provider Unavailab le Encounter Details Date Type Department Care Team (Latest Contact Info) Description 03/21/1997 Orders Only Kelly Mcneal, LICENSED DISPENSING OPTICIAN, GROUNDS CLEANER Social History Tobacco Use Types Packs/Day Years Used Date Smoking Tobacco: Never Assessed Sex and Gender Information Value Date Recorded Sex Assigned at Not on file Gender Identity Not on file Sexual Orientation Not on file documented as of this encounter Plan of Treatment Not on file documented as of this encounter Visit Diagnoses Not on filedocumented in this encounter Care Teams Supervisor In Circuit Testing Relationship Specialty Start Date End Date Found, No Pcp, [address] [place] [address] PCP - General 08/27/21 documented as of this encounter
--- OUTSIDE RECORDS SUMMARY | 2024-02-16 10:09 | XMS_ITS | Encounter Summary ---
Author Organization [employer] Address [address] [address] Care Team Providers Care Fashion Consultant Sales Name Role Phone Found, No Pcp Primary Care Provider Unavailab le Encounter Details Date Type Department Care Team (Latest Contact Info) Description 03/02/1998 Orders Only Jailene Cho MD [...] on filedocumented in this encounter Care Teams Fashion Consultant Sales Relationship Specialty Start Date End Date Found, No PcpMD [address] [place] [address] PCP - General 08/27/21 documented as of this encounter
--- OUTSIDE RECORDS SUMMARY | 2024-02-16 10:09 | XMS_ITS | Encounter Summary ---
Author Organization [employer] Address [address] [place] [address] Care Team Providers Care Garment Supervisor Name Role Phone Found, No Pcp Primary Care Provider Unavailab le Encounter Details Date Type Department Care Team (Latest Contact Info) Description 05/29/1998 Orders Only Corinna Sylvester MD [address] [place] [phone] Social History Tobacco Use Types Packs/Day Years Used Date Smoking Tobacco: Never Assessed Sex and Gender Information Value Date Recorded Sex Assigned at Not on file Gender Identity Not on file Sexual Orientation Not on file documented as of this encounter Plan of Treatment Not on file documented as of this encounter Visit Diagnoses Not on filedocumented in this encounter Care Teams Garment Supervisor Relationship Specialty Start Date End Date Found, No PcpMD [address] [place] [address] PCP - General 08/27/21 documented as of this encounter
--- OUTSIDE RECORDS SUMMARY | 2024-02-16 10:09 | XMS_ITS | Encounter Summary ---
Author Organization [employer] Address [address] [place] [address] Care Team Providers Care Chocolate Finisher Operator Name Role Phone Found, No Pcp Primary Care Provider Unavailab le Encounter Details Date Type Department Care Team (Latest Contact Info) Description 06/02/1997 Orders Only Corinna Sylvester MD [address] [place] [address] Social History Tobacco Use Types Packs/Day Years Used Date Smoking Tobacco: Never Assessed Sex and Gender Information Value Date Recorded Sex Assigned at Not on file Gender Identity Not on file Sexual Orientation Not on file documented as of this encounter Plan of Treatment Not on file documented as of this encounter Visit Diagnoses Not on filedocumented in this encounter Care Teams Chocolate Finisher Operator Relationship Specialty Start Date End Date Found, No PcpMD [address] [place] [address] PCP - General 08/27/21 documented as of this encounter
--- OUTSIDE RECORDS SUMMARY | 2024-02-16 10:09 | XMS_ITS | Clinical Summary ---
Author Organization [employer] Address [address] [place] [address] Care Team Providers Care Animal Humane Agent Supervisor Name Role Phone Found, No Pcp Primary Care Provider Unavailab le Source Comments You are receiving this document as you are listed as the primary care provider,follow-up provider, or the patient has been referred to you for consultation.This is in compliance with the Medicare andMedicaid EHR Incentive Program,which states Providers who transition their patient to another setting of careor provider of care or refers their patient to another provider of care shouldprovide summary care record for each transition of care or referral. [employer] Allergies Active Allergy Reactions Criticality Noted Date Comments Fluticasone 04/22/2011 PN: laryngitis Lanolin Hives 03/09/2014 Oxycodone-Acetaminophen 09/24/2010 PN: LW Reaction: Itching, Pruritis Medications Medication Sig Dispensed Refills Start Date End Date Status aspirin 81 MG tabletIndications:PATY CHAVARRIA Jan 25, 2014 1:27 PM Stopped taking aspirin per instructions for procedure. Take 2 tablets by mouth daily (every 24 hours). LW Addl Instr:hold until lovenox dc'd 3 10/04/2010 Active cyanocobalamin 1000 MCG tablet Take 1,000 mcg by mouth daily (every 24 hours). 6 times/week 03/08/2013 Active Multiple Vitamins-Minerals (MULTIVITAMIN ADULT OR) Take 2 tablets by mouth daily (every 24 hours). 03/08/2013 Active CALCIUM OR Take by mouth. Reported on 09/30/2016 09/28/2015 Active beclomethasone (QVAR) 40 MCG/ACT inhalerIndications:Mi ld intermittent asthma without complication (HRC) Inhale 2 Puffs two times a day. Rinse mouth/gargle after use 8.7 g 11 09/30/2016 Active ALBUterol sulfate HFA 108 (90 BASE) MCG/ACT inhalerIndications:Mi ld intermittent asthma without complication (HRC) Inhale 1-2 Puffs every 4 hours as needed for Wheezing. 2 Inhaler 3 09/30/2016 Active albuterol 2.5 mg/3 mL, 0.083%, (PROVENTIL) nebulizer solution Inhale 1 Vial every 6 hours as needed for Wheezing. 75 mL 0 10/17/2016 Active LORazepam (ATIVAN) 0.5 MG tablet Take 1 Tab by mouth every 8 hours as needed for Anxiety. 15 Tab 04/16/2017 Active sertraline (ZOLOFT) 50 MG tablet Take 1 Tab by mouth daily. 90 Tab 3 04/16/2017 Active ondansetron (ZOFRAN) 4 MG tablet Take 1 Tab by mouth every 8 hours as needed for Nausea. 30 Tab 04/16/2017 Active Active Problems Problem Noted Date Diagnosed Date Vitamin D deficiency 09/28/2015 Depression, major, single episode, mild 05/11/20 15 Circadian rhythm sleep disorder, delayed sleep p hase type 05/25/2014 Osteopenia 03/07/2014 Macrocytosis without anemia 04/22/2012 Overview (01/25/2016): thought secondary to daily alcohol consumption Mild intermittent asthma without complication Overview (02/12/2017): trigger: Cats, mold, dust, ; Unspecified asthma(493.90) ([facility]) Hx of cancer of endometrium 07/26/2011 Controlled type 2 diabetes m ellitus without complication, without long-term current use of insulin 04/23/2011 Chronic insomnia 04/23/2011 Actinic keratoses 04/23/2011 Nondependent alcohol abuse 04/23/2011 Superficial thrombophlebitis 04/23/2011 S/P gastric bypass 04/23/2011 Heterozygous factor V Leiden mutation 08/08/2010 Overview (02/12/2017): Factor V Leiden Hiatal hernia 08/08/2010 Overview (02/12/2017): Hernia Hiatal Degeneration of lumbar or lumbosacral interverte bral disc 08/08/2010 Overview (02/12/2017): Lumbar Disc Degeneration Chronic deep vein thrombosis (DVT) of distal vein of right lower extremity 10/02/2005 Overview (02/12/2017): LW Modifier: right leg, Factor V ledien deficiency LW Onset: 2000 ; Deep Venous Thrombosis Other vitamin B12 deficiency anemia 06/25/2004 Overview (06/25/2004): secondary to gastric bypass Resolved Problems Problem Noted Date Diagnosed Date Resolved Date Alcoholism, chronic 05/08/2014 04/02/20 16 Endometrial cancer 04/23/2011 2 Chronic abdominal pain 04/23/201109/29 Varicose vein of leg 04/23/2011 017 Overview (02/12/2017): Varicose veins Type 2 diabetes mellitus, controlled 10/02/2005 11/03/2006 Overview (02/12/2017): LW Onset: 09Eho05 ; DM Asthma 10/02/2005 11/03/2006 Overview (02/12/2017): LW Onset: 04Snh79 ; Asthma NOS Depressive disorder 10/02/2005 04/23/20 11 Overview (02/12/2017): LW Onset: 1998 ; Depression NOS Depressive disorder 06/25/2004 04/02/20 16 Overview (02/12/2017): Depressive disorder, not elsewhere classified (HRC) Phlebitis and thrombophlebit is of other deep vessels of lower extremities 06/25/2004 04/02/2016 Overview (06/25/2004): right leg, Factor V Leiden positive, on coumadin Immunizations Name Administration Dates Next Due Flu Vac (3+ yrs) 05/15/2004,03/27/1999 Flu Vac Preserv Free (3+yrs) 03/04/2012, 03/29/2011,04/01/2010,2006,05/06/2006,04/03/2005 Influenza IIV4 (Quadrivalent ) 0.5mL (80346) 04/16/2017,04/02/2016,03/22/2015,2013,03/08/2013 Influenza, Unspecified Formulation 04/06/1998, PPSV23 (Pneumovax) 09/30/2016,10/02/2005, 998 TDAP (ADACEL) 08/19/2011 Td 12/11/1999,11/01/1996 Varicella 11/03/1996(Deferred: Immune by [facility]) Family History Medical History Relation Name Comments Clotting Disorder Father Factor V L eiden Emphysema Father Heart Disease Father Cancer Mother colon CA @ 62yo and in maternal aunt Cancer, Colon Mother Clotting Disorder Mother Factor V L eiden DVT/PE Mother Allergies Brother 1 Clotting Disorder Brother 1 Factor V L eiden Depression Brother 1 Thyroid Disorder Brother 1 [...] 0 (1 standard drink = 0.6 oz pur e alcohol) None Sex and Gender Information Value Date Recorded Sex Assigned at Not on file Gender Identity Not on file Sexual Orientation Not on file Last Filed Vital Signs Vital Sign Reading Time Taken Comments Blood Pressure 136/82 04/16/2017 10:38 AM CDT Pulse 64 04/16/2017 10:38 AM CDT Temperature 36.8 ??C (98.3 ??F) 04/07/2017 12:15 PM C DT Respiratory Rate 22 04/07/2017 12:15 PM CDT Oxygen Saturation 97% 04/07/2017 12:15 PM CDT Inhaled Oxygen Concentration - - Weight 116.6 kg (257 lb) 04/16/2017 10:38 AM CDT Height 164.5 cm (5' 4.75) 09/30/2016 8:10 AM CD T Body Mass Index 43.1 09/30/2016 8:10 AM CDT Plan of Treatment Health Maintenance Due Date Last Done Comments Diabetes: Eye Exam 1960 Diabetes: Foot Exam 1960 Hep C Screening (Preventive Services) 1960 Zoster/Shingles (1 of 2) 2008 Diabetes: HGBA1C 07/08/2017 04/07/2017, 09/2016, 03/29/2016, Additional history exists Diabetes: Urine Microalbumin 09/24/2017 09/24/2016, 09/21/2015, 09/02/2014, Additional history exists Adult Preventive Visit 09/30/2017 7, 09/24/2004, 09/05/2003, Additional history exists Pneumococcal 65+ Yrs (2 - PCV) 09/30/2017 09/30/2016, 10/02/2005, 04/06/1998 Mammogram 01/09/2018 01/09/2017, 12/2015, 10/24/2014, Additional history exists Diabetes: Creatinine 04/07/2018 04/07/2017, 09/24/2016, 09/21/2015, Additional history exists Colonoscopy 01/25/2019 01/25/2014 (Comp leted), 09/26/2009 (Completed) DTaP/Tdap/Td (2 - Tdap) 08/19/2021 08/19/19 12, 12/11/1999, 11/01/1996 Diabetes: Lipid Panel 09/24/2021 09/24/2016 , 09/21/2015, 09/02/2014, Additional history exists COVID-19 Vaccine ( - season) 2023 Influenza (#1) 2024 04/16/2017, 03/23, 03/22/2015, Additional history exists Cervical Cancer Screening Discontinued 2016, 09/28/2015, 09/28/2014, Additional history exists HepA Aged Out No longer eligi ble based on patient's age to complete this topic HepB Aged Out No longer eligi ble based on patient's age to complete this topic Hib Aged Out No longer eligi ble based on patient's age to complete this topic IPV ([place]) Aged Out No longer eligi ble based on patient's age to complete this topic MCV4 Aged Out No longer eligi ble based on patient's age to complete this topic Procedures Procedure Name Priority Date/Time Associated Diagnosis Comments COMPREHENSIVE METABOLIC PANEL STAT 04/07/2017 1:05 PM CDT Abdominal pain, unspecified abdominal location HGB A1C Routine 04/07/2017 1:05 PM CDT Controlled type 2 diabetes mellitus without complication, without long-term current use of insulin (HRC) MM MAMMOGRAM SCREENING BILAT W CAD Routine 01/09/2017 2:12 PM CDT Routine physical examination ANATOMICAL PATH LIQUID BASED Routine 09/30/2016 9:20 AM CDT ALBUMIN/CREAT RATIO Routine 09/24/2016 8 :36 AM CDT S/P gastric bypass LIPID PANEL & DIRECT LDL (IF NEEDED) Routine 09/24/2016 7:50 AM CDT Intestinal malabsorption, unspecified type [K90.9] from Last 3 Months or Most Recently Relevant to Health Maintenance Results * (ABNORMAL) Comp Metabolic Panel (04/07/2017 1:05 PM CDT) Aspartate Aminotransferase 41(H) 10 - 40 U/L PN SOFT Lab Glucose 133(H) 70 - 100 mg/dL PN SOFT Comment: The stated glucose range is for the fasting state. Non-fasting glucose range is 70-180 mg/dL Bilirubin Total 0.4 0.2 - 1.2 mg/dL [...] 150 U/L PN SOFT Protein Total, Serum 8.5(H) 6.4 - 8.3 g/dL PN SOFT Creatinine Serum 0.60 0.55 - 1.02 mg/dL PN SOFT Est GFR Am >60 >60 mL/min/1. 73m2 PN SOFT Est GFR Non-Afr Am >60 >60 mL/min/1. 73m2 PN SOFT Comment: Normal>60, moderate decrease 30 - 59, severe decrease 15 - 29, renal failure <15 mL/min/1.73 m2 NOTE: ??Choose the eGFR result above appropriate for the race of the patient. Alanine Aminotransferase 36 9 - 55 U/L PN SOFT CO2 28 22 - 31 mmol/L PN SOFT 04/07/2017 1:05 PM CDT 04/07/2017 1:17 PM CDT Narrative PN SOFT - 04/07/2017 1:35 PM CDT Performed at [facility], [address] [address] CLIA number [id number] Ines Valdes PA-C LAB_1 Performing Organization Address [facility] de Phone Number PN SOFT [address] [place] [address] * (ABNORMAL) Hgb A1c (04/07/2017 1:05 PM CDT) Pathologist [facility] [place] HGB A1C 6.3(H) 4.0 - 5.6 % PN SOFT 04/07/2017 1:05 PM CDT 04/07/2017 6:38 PM CDT Narrative PN SOFT - 04/07/2017 10:38 PM CDT Performed at [facility], [address] [place] [address] CLIA number [id number] Olamide Rodney MD LAB_1 BHAKTI NEELY [address] [place] [address] * MM Mammogram Screening Bilat W CAD (01/09/2017 2:12 PM CDT) Anatomical Region Laterality Modality Breast Bilateral Mammography Impressions 01/09/2017 3:21 PM CDT : ACR BI-RADS Category 1: Negative RECOMMENDATION: Follow Up Imaging in 12 months - Bilateral The results and recommendations of this examination will be communicated to the patient. Narrative 01/09/2017 3:21 PM CDT MM MAMMOGRAM SCREENING BILAT W CAD performed on 01/09/17 Compared to: 10/28/2015 MM Mammogram Screening Bilat W CAD, 10/24/2014 MM Mammogram Screening Bilat W CAD, and 10/01/2013 MM Mammogram Screening Bilat W CAD FINDINGS: Bilateral screening mammogram was performed with the assistance of Computer-Aided Detection. The breasts are almost entirely fatty. There is no radiographic evidence of malignancy. ?? Olamide Rodney MD RAD SHERYL * Pap Smear (09/30/2016 9:20 AM CDT) 09/30/2016 9:20 AM CDT Narrative BHAKTI NEELY - 10/02/2016 2:32 PM CDT FINAL GYNECOLOGICAL CYTOLOGY REPORT Pathology #: [id number] ?Date Obtained: 09/30/2016 ? Date Received: 10/01/2016 INTERPRETATION/RESULTS: Negative for Intraepithelial Lesion or Malignancy. SPECIMEN ADEQUACY: Satisfactory for Evaluation. ??No endocervical cells/transformation zone component present; patient is postmenopausal. Verified on 10/02/2016 ??by EPHRAIM SCHERER(ASCP) (electronic signature) CLINICAL NOTES: ?Abnormal bleeding: No, LMP: na, Menstrual status: Post ?Menopausal, Current form of therapy: None apply LIQUID BASED PAP SMEAR SPECIMEN TYPE: ?ROUTINE CERVICAL PAP TEST PLEASE NOTE: The pap smear is a screening test designed to aid in the detection of cervical cancer and its precursor lesions. It is not a diagnostic procedure and should not be used as the sole means of detecting cervical cancer. Both false-positive and false-negative reports may occur. Performed at [address] [address] Olamide Rodney MD LAB_1 Performing Organization Address [facility] de Phone Number PN SOFT [address] [place] [address] * Microalb/Creat Ratio (09/24/2016 8:36 AM CDT) Microalbumin Urine <10.0 mg/L PN SOFT U Creat Random 122 mg/dL PN SOFT Microalbumin/Crea tinine Ratio <10.0 0.0 - 30.0 PN SOFT Urine specimen (specimen) 09/24/2016 8:36 AM CDT 09/24/2016 8:36 AM CDT Narrative PN SOFT - 09/24/2016 9:26 AM CDT Performed at [facility], [address] [place] [address] CLIA number [id number] Olamide Rodney MD LAB_1 Performing Organization Address [facility] de Phone Number PN SOFT [address] [place] [address] * LIPID PANEL AND DIRECT LDL(IF NEEDED) (09/24/2016 7:50 AM CDT) Cholesterol 163 0 - 199 mg/dL PN SOFT Triglycerides 135 4 - 149 mg/dL PN SOFT HDL Cholesterol 46 >39 mg/dL PN SOFT Cholesterol/HDL Ratio Screen 3.5 PN SOFT LDL Calculated 90 19 - 130 mg/dL PN SOFT Hours Fasting 12.0 PN SOFT 09/24/2016 7:50 AM CDT 09/24/2016 7:49 AM CDT Narrative PN SOFT - 09/24/2016 8:09 AM CDT Performed at [facility], [address] [place] [address] CLIA number [id number] Olamide Rodney MD LAB_1 PN SOFT [address] [place] [address] from Last 3 Months or Most Recently Relevant to Health Maintenance Advance Directives Documents on File Type Date Recorded Patient Visual Stylist Expl anation Advance Directive/Living Will/Durable Power of Attny on file/POLST PN 09/09/2013 3:06 PM Care Teams Animal Humane Agent Supervisor Relationship Specialty Start Date End Date Found, No Pcp, [address] [place] [address] PCP - General 08/27/21
--- NOTE | 2024-02-16 11:09 | W.ANESCHARGE ---
Anesthesia Charges Start Date/Time Anesthesia Start Date: 02/16/24 Anesthesia Start Time: 10:36 Stop Date/Time Anesthesia Stop Date: 02/16/24 Anesthesia Stop Time: 11:06
--- NOTE | 2024-02-16 11:15 | W.ANESCHARGE ---
Anesthesia Charges Start Date/Time Anesthesia Start Date: 02/16/24 Anesthesia Start Time: 10:36 Stop Date/Time Anesthesia Stop Date: 02/16/24 Anesthesia Stop Time: 11:06
== END 2024-02-16 10:06 | disposition home or self-care (01) ==
PROVIDERS: PCP Internal Medicine; Visit Provider Internal Medicine
DX: Z86.010 Personal history of colon polyps (principal); K57.30 Diverticulosis of large intestine without perforation or abscess without bleeding
CPT/HCPCS: 00811; 45378; J2704

== ENCOUNTER 2024-03-17 08:35 | Outpatient (CLI) | payer MEDICARE, BC, SELFPAY ==
--- OUTSIDE RECORDS SUMMARY | 2024-03-21 05:48 | XMS_ITS | Clinical Summary ---
Author Organization [employer] Address [address] [place] [address] Care Team Providers Care Erp Analyst Name Role Phone Found, No Pcp Primary [...] for each transition of care or referral. [place] [facility] Allergies Active Allergy Reactions Criticality Noted Date [...] trigger: Cats, mold, dust, ; Unspecified asthma(493.90) ([facility]) Hx of cancer of endometrium 07/26/2011 Controlled [...] controlled 10/02/2005 11/03/2006 Overview (02/12/2017): LW Onset: [id number] ; DM Asthma 10/02/2005 11/03/2006 Overview (02/12/2017): LW Onset: [id number] ; Asthma NOS Depressive disorder 10/02/2005 04/23/20 [...] 03/04/2012, 03/29/2011,04/01/2010,2006,05/06/2006,04/03/2005 Influenza IIV4 (Quadrivalent ) 0.5mL (37820) 04/16/2017,04/02/2016,03/22/2015,2013,03/08/2013 Influenza, Unspecified Formulation 04/06/1998, PPSV23 (Pneumovax) [...] - 04/07/2017 1:35 PM CDT Performed at [facility], [address] [place], [place] [id number] CLIA number [id number] Ines Valdes PA-C LAB_1 PN SOFT [address] [place] [id number] * (ABNORMAL) Hgb A1c (04/07/2017 1:05 PM CDT) HGB A1C 6.3(H) 4.0 - 5.6 % PN SOFT 04/07/2017 1:05 PM CDT 04/07/2017 6:38 PM CDT Narrative PN SOFT - 04/07/2017 10:38 PM CDT Performed at [address] [address] CLIA number [id number] Olamide Rodney MD LAB_1 BHAKTI NEELY [address] [place] [address] * MM Mammogram Screening Bilat W CAD [...] CDT FINAL GYNECOLOGICAL CYTOLOGY REPORT Pathology #: [id number] ?Date Obtained: 09/30/2016 ? Date Received: 10/01/2016 [...] and false-negative reports may occur. Performed at [address] [address] Olamide Rodney MD LAB_1 Performing Organization Address [facility] de Phone Number PN SOFT [address] [place] [address] * Microalb/Creat Ratio (09/24/2016 8:36 AM CDT) Microalbumin Urine <10.0 mg/L PN SOFT U Creat Random 122 mg/dL PN SOFT Microalbumin/Crea tinine Ratio <10.0 0.0 - 30.0 PN SOFT Urine specimen (specimen) 09/24/2016 8:36 AM CDT 09/24/2016 8:36 AM CDT Narrative PN SOFT - 09/24/2016 9:26 AM CDT Performed at [facility], [address] [place] [address] CLIA number [id number] Olamide Rodney MD LAB_1 Performing Organization Address [facility] de Phone Number PN SOFT [address] [place] [address] * LIPID PANEL AND DIRECT LDL(IF NEEDED) [...] AM CDT Performed at [facility], [address] [facility], [place] [address] [place] number [id number] Olamide Rodney MD LAB_1 BHAKTI SOFT [address] [place] [address] from Last 3 Months or Most Recently Relevant to Health Maintenance Advance Directives Documents on File Type Date Recorded Patient Bisque Placer Expl anation Advance Directive/Living Will/Durable Power of Attny on file/POLST PN 09/09/2013 3:06 PM Care Teams Erp Analyst Relationship Specialty Start Date End Date Found, No Pcp, [address] [employer] [place] [address] PCP - General 08/27/21
--- OUTSIDE RECORDS SUMMARY | 2024-03-21 05:48 | XMS_ITS | Encounter Summary ---
Author Organization [employer] Address [address] [place] [address] Care Team Providers Care Track Fitter Name Role Phone Found, No Pcp Primary Care Provider Unavailab le Encounter Details Date Type Department Care Team (Latest Contact Info) Description 03/21/1997 Orders Only Kelly Mcneal, ASSEMBLY LINE BRAZER, SWITCHBOARD OPERATOR HELPER Social History Tobacco Use Types Packs/Day Years Used Date Smoking Tobacco: Never Assessed Sex and Gender Information Value Date Recorded Sex Assigned at Not on file Gender Identity Not on file Sexual Orientation Not on file documented as of this encounter Plan of Treatment Not on file documented as of this encounter Visit Diagnoses Not on filedocumented in this encounter Care Teams Track Fitter Relationship Specialty Start Date End Date Found, No Pcp, [address] [place] [address] PCP - General 08/27/21 documented as of this encounter
--- OUTSIDE RECORDS SUMMARY | 2024-03-21 05:48 | XMS_ITS | Encounter Summary ---
Author Organization [employer] Address [address] [place] [address] Care Team Providers Care Wildlife Control Operator Name Role Phone Found, No Pcp Primary Care Provider Unavailab le Encounter Details Date Type Department Care Team (Latest Contact Info) Description 06/02/1997 Orders Only Corinna Sylvester MD [address] [place] [address] Social History Tobacco Use Types Packs/Day Years Used Date Smoking Tobacco: Never Assessed Sex and Gender Information Value Date Recorded Sex Assigned at Not on file Gender Identity Not on file Sexual Orientation Not on file documented as of this encounter Plan of Treatment Not on file documented as of this encounter Visit Diagnoses Not on filedocumented in this encounter Care Teams Wildlife Control Operator Relationship Specialty Start Date End Date Found, No PcpMD [address] [place] [address] PCP - General 08/27/21 documented as of this encounter
--- OUTSIDE RECORDS SUMMARY | 2024-03-21 05:48 | XMS_ITS | Encounter Summary ---
Author Organization [email or web address] Address [address] [place] [address] Care Team Providers Care Professor Of Finance Name Role Phone Found, No Pcp Primary Care Provider Unavailab le Encounter Details Date Type Department Care Team (Latest Contact Info) Description 05/29/1998 Orders Only Corinna Sylvester MD [address] [place] [address] Social History Tobacco Use Types Packs/Day Years Used Date Smoking Tobacco: Never Assessed Sex and Gender Information Value Date Recorded Sex Assigned at Not on file Gender Identity Not on file Sexual Orientation Not on file documented as of this encounter Plan of Treatment Not on file documented as of this encounter Visit Diagnoses Not on filedocumented in this encounter Care Teams Professor Of Finance Relationship Specialty Start Date End Date Found, No PcpMD [address] [place] [address] PCP - General 08/27/21 documented as of this encounter
--- OUTSIDE RECORDS SUMMARY | 2024-03-21 05:48 | XMS_ITS | Encounter Summary ---
Author Organization [employer] Address [address], [place] [address] Care Team Providers Care Aluminum Siding Applicator Name Role Phone Found, No Pcp Primary [...] on filedocumented in this encounter Care Teams Aluminum Siding Applicator Relationship Specialty Start Date End Date Found, No PcpMD [address] [place] [address] PCP - General 08/27/21 documented as of this encounter
== END 2024-03-17 08:36 | disposition home or self-care (01) ==
LOC: NFLDREF 03-21 05:46
PROVIDERS: PCP Internal Medicine; Referring Provider Internal Medicine; Visit Provider Internal Medicine
DX: E11.9 Type 2 diabetes mellitus without complications (principal); Z98.84 Bariatric surgery status
CPT/HCPCS: 80053; 80061; 82043; 82306; 82525; 82570; 82607; 82728; 83540; 83550; 83735; 84443; 84446; 84590; 84597; 84630

== ENCOUNTER 2024-03-17 09:04 | Outpatient (CLI) | payer MEDICARE, BC, SELFPAY ==
--- OUTSIDE RECORDS SUMMARY | 2024-03-17 09:08 | XMS_ITS | Encounter Summary ---
Author Organization [employer] Address [address] [place] [address] Care Team Providers Care Locks Inspector Name Role Phone Found, No Pcp Primary Care Provider Unavailab le Encounter Details Date Type Department Care Team (Latest Contact Info) Description 03/21/1997 Orders Only Kelly Mcneal, DIRECT SUPPORT WORKER, PLASTICS HEAT WELDER Social History Tobacco Use Types Packs/Day Years Used Date Smoking Tobacco: Never Assessed Sex and Gender Information Value Date Recorded Sex Assigned at Not on file Gender Identity Not on file Sexual Orientation Not on file documented as of this encounter Plan of Treatment Not on file documented as of this encounter Visit Diagnoses Not on filedocumented in this encounter Care Teams Locks Inspector Relationship Specialty Start Date End Date Found, No Pcp, [address] [place] [address] PCP - General 08/27/21 documented as of this encounter
--- OUTSIDE RECORDS SUMMARY | 2024-03-17 09:08 | XMS_ITS | Clinical Summary ---
Author Organization [employer] Address [address] [place] [address] Care Team Providers Care Caddie Name Role Phone Found, No Pcp Primary [...] for each transition of care or referral. [facility] Allergies Active Allergy Reactions Criticality Noted Date [...] trigger: Cats, mold, dust, ; Unspecified asthma(493.90) ([facility]) Hx of cancer of endometrium 07/26/2011 Controlled [...] controlled 10/02/2005 11/03/2006 Overview (02/12/2017): LW Onset: 61Vex84 ; DM Asthma 10/02/2005 11/03/2006 Overview (02/12/2017): LW Onset: 42Qsz87 ; Asthma NOS Depressive disorder 10/02/2005 04/23/20 [...] 03/04/2012, 03/29/2011,04/01/2010,2006,05/06/2006,04/03/2005 Influenza IIV4 (Quadrivalent ) 0.5mL (56092) 04/16/2017,04/02/2016,03/22/2015,2013,03/08/2013 Influenza, Unspecified Formulation 04/06/1998, PPSV23 (Pneumovax) [...] history exists COVID-19 Vaccine ( - season) 2024 Influenza (#1) 2024 04/16/2017, 03/23, 03/22/2015, Additional history exists RSV (1 - 1-dose 75+ series) 2033 Cervical Cancer Screening Discontinued 2016, 09/28/2015, 09/28/2014, [...] - 04/07/2017 1:35 PM CDT Performed at [facility], [address] [place], [place] [id number] CLIA number [id number] Ines Valdes PA-C LAB_1 PN SOFT [address] [place] [address] * (ABNORMAL) Hgb A1c (04/07/2017 1:05 PM CDT) HGB A1C 6.3(H) 4.0 - 5.6 % PN SOFT 04/07/2017 1:05 PM CDT 04/07/2017 6:38 PM CDT Narrative PN SOFT - 04/07/2017 10:38 PM CDT Performed at [address] [address] CLIA number [id number] Olamide Rodney MD LAB_1 BHAKTI NEELY [address] [place] [address] * MM Mammogram Screening Bilat W CAD [...] CDT FINAL GYNECOLOGICAL CYTOLOGY REPORT Pathology #: [id number] ?Date Obtained: 09/30/2016 ? Date Received: 10/01/2016 [...] and false-negative reports may occur. Performed at [address] [address] Olamide Rodney MD LAB_1 Performing Organization Address [facility] de Phone Number PN SOFT [address] [place] [address] * Microalb/Creat Ratio (09/24/2016 8:36 AM CDT) Microalbumin Urine <10.0 mg/L PN SOFT U Creat Random 122 mg/dL PN SOFT Microalbumin/Crea tinine Ratio <10.0 0.0 - 30.0 PN SOFT Urine specimen (specimen) 09/24/2016 8:36 AM CDT 09/24/2016 8:36 AM CDT Narrative PN SOFT - 09/24/2016 9:26 AM CDT Performed at [facility], [address] [place] [address] CLIA number [id number] Olamide Rodney MD LAB_1 Performing Organization Address [facility] de Phone Number PN SOFT [address] [place] [address] * LIPID PANEL AND DIRECT LDL(IF NEEDED) [...] - 09/24/2016 8:09 AM CDT Performed at [facility], [address] [facility], [place] [address] IA number [id number] Olamide Rodney MD LAB_1 BHAKTI SOFT [address] [place] [address] from Last 3 Months or Most Recently Relevant to Health Maintenance Advance Directives Documents on File Type Date Recorded Patient Roofer Assistant Expl anation Advance Directive/Living Will/Durable Power of Attny on file/POLST PN 09/09/2013 3:06 PM Care Teams Caddie Relationship Specialty Start Date End Date Found, No Pcp, [address] [place] [address] PCP - General 08/27/21
--- OUTSIDE RECORDS SUMMARY | 2024-03-17 09:08 | XMS_ITS | Encounter Summary ---
Author Organization [employer] Address [address] [address] Care Team Providers Care Metal Furniture Panel Coverer Name Role Phone Found, No Pcp Primary [...] filedocumented in this encounter Care Teams Metal Furniture Panel Coverer Relationship Specialty Start Date End Date Found, No PcpMD [address] [place] [address] PCP - General 08/27/21 documented as of this encounter
--- OUTSIDE RECORDS SUMMARY | 2024-03-17 09:08 | XMS_ITS | Encounter Summary ---
Author Organization [email or web address] Address [address] [place] [address] Care Team Providers Care Print Cutter Name Role Phone Found, No Pcp Primary Care Provider Unavailab le Encounter Details Date Type Department Care Team (Latest Contact Info) Description 05/29/1998 Orders Only Corinna Sylvester MD [address] [place] [address] Social History Tobacco Use Types Packs/Day Years Used Date Smoking Tobacco: Never Assessed Sex and Gender Information Value Date Recorded Sex Assigned at Not on file Gender Identity Not on file Sexual Orientation Not on file documented as of this encounter Plan of Treatment Not on file documented as of this encounter Visit Diagnoses Not on filedocumented in this encounter Care Teams Print Cutter Relationship Specialty Start Date End Date Found, No PcpMD [address] [place] [address] PCP - General 08/27/21 documented as of this encounter
--- OUTSIDE RECORDS SUMMARY | 2024-03-17 09:08 | XMS_ITS | Encounter Summary ---
Author Organization [employer] Address [address] [place] [address] Care Team Providers Care Delivery Supervisor Name Role Phone Found, No Pcp Primary Care Provider Unavailab le Encounter Details Date Type Department Care Team (Latest Contact Info) Description 06/02/1997 Orders Only Corinna Sylvester MD [address] [place] [address] Social History Tobacco Use Types Packs/Day Years Used Date Smoking Tobacco: Never Assessed Sex and Gender Information Value Date Recorded Sex Assigned at Not on file Gender Identity Not on file Sexual Orientation Not on file documented as of this encounter Plan of Treatment Not on file documented as of this encounter Visit Diagnoses Not on filedocumented in this encounter Care Teams Delivery Supervisor Relationship Specialty Start Date End Date Found, No PcpMD [address] [place] [address] PCP - General 08/27/21 documented as of this encounter
--- NOTE | 2024-03-17 09:15 | CRLHL7_ITS ---
For Patients: As a result of the Century Cures Act, medical imaging exams and procedure reports are released immediately into your electronic medical record. You may view this report before your referring provider. If you have questions, please contact your health care provider. BILATERAL SCREENING MAMMOGRAM WITH COMPUTER-AIDED DETECTION AND TOMOSYNTHESIS TECHNIQUE: CC and MLO views were obtained. These mammographic images have been obtained using full-field digital technique. These mammographic images were interpreted with the benefit of computer-aided detection. Breast Tomosynthesis was used in this interpretation. 2D LEFT CC due to positioning. COMPARISON FILM: 02/14/23, 02/08/22, 01/30/21. FINDINGS: There are scattered areas of fibroglandular density IMPRESSION: There is no radiographic evidence for malignancy. ASSESSMENT: BI-RADS Category 1: Negative RECOMMENDATION: Routine screening mammogram in 1 year. A lay language report of this examination will be provided to the patient. David Chan M.D. Diagnostic Radiologist [email or web address] JUWAN/Dictated by: David Chan MD @ 03/25/2024 12:13:00 PM (Electronically Signed)
== END 2024-03-17 09:05 | disposition home or self-care (01) ==
LOC: MAMMO 09:06
PROVIDERS: PCP Internal Medicine; Visit Provider Internal Medicine
DX: Z12.31 Encounter for screening mammogram for malignant neoplasm of breast (principal)
CPT/HCPCS: 77063; 77067; 80053; 80061; 82043; 82306; 82525; 82570; 82607; 82728; 83540; 83550; 83735; 84443; 84446; 84590; 84597; 84630

== ENCOUNTER 2024-04-22 12:54 | Outpatient (CLI) | payer MEDICARE, BC, SELFPAY ==
--- OUTSIDE RECORDS SUMMARY | 2024-04-22 12:58 | XMS_ITS | Encounter Summary ---
Author Organization [employer] Address [address] [place] [address] Care Team Providers Care Stroke Program Coordinator Name Role Phone Found, No Pcp Primary Care Provider Unavailab le Encounter Details Date Type Department Care Team (Latest Contact Info) Description 05/29/1998 Orders Only Corinna Sylvester MD [address] [place] [address] Social History Tobacco Use Types Packs/Day Years Used Date Smoking Tobacco: Never Assessed Sex and Gender Information Value Date Recorded Sex Assigned at Not on file Gender Identity Not on file Sexual Orientation Not on file documented as of this encounter Plan of Treatment Not on file documented as of this encounter Visit Diagnoses Not on filedocumented in this encounter Care Teams Stroke Program Coordinator Relationship Specialty Start Date End Date Found, No PcpMD [address] [place] [address] PCP - General 08/27/21 documented as of this encounter
--- OUTSIDE RECORDS SUMMARY | 2024-04-22 12:58 | XMS_ITS | Clinical Summary ---
Author Organization [facility] Address [address] [place] [address] Care Team Providers Care Compressed Gases Tester Name Role Phone Found, No Pcp Primary [...] for each transition of care or referral. [facility] [employer] [facility] Allergies Active Allergy Reactions Criticality Noted Date [...] trigger: Cats, mold, dust, ; Unspecified asthma(493.90) ([facility]) Hx of cancer of endometrium 07/26/2011 [...] controlled 10/02/2005 11/03/2006 Overview (02/12/2017): LW Onset: [id number] ; DM Asthma 10/02/2005 11/03/2006 Overview (02/12/2017): LW Onset: [id number] ; Asthma NOS Depressive disorder 10/02/2005 04/23/20 [...] 03/04/2012, 03/29/2011,04/01/2010,2006,05/06/2006,04/03/2005 Influenza IIV4 (Quadrivalent ) 0.5mL (05424) 04/16/2017,04/02/2016,03/22/2015,2013,03/08/2013 Influenza, Unspecified Formulation 04/06/1998, PPSV23 (Pneumovax) [...] on patient's age to complete this topic RSV Aged Out No longer eligi ble based [...] - 04/07/2017 1:35 PM CDT Performed at [facility], [address] [place] [address] CLIA number [id number] Ines Valdes PA-C LAB_1 PN SOFT [address] [place] [id number] * (ABNORMAL) Hgb A1c (04/07/2017 1:05 PM CDT) Pathologist [facility] HGB A1C 6.3(H) 4.0 - 5.6 % PN SOFT 04/07/2017 1:05 PM CDT 04/07/2017 6:38 PM CDT Narrative PN SOFT - 04/07/2017 10:38 PM CDT Performed at [address] [address] CLIA number [id number] Olamide Rodney MD LAB_1 BHAKTI NEELY [address] [place] [address] * MM Mammogram Screening Bilat W CAD [...] CDT FINAL GYNECOLOGICAL CYTOLOGY REPORT Pathology #: [id number] ?Date Obtained: 09/30/2016 ? Date Received: 10/01/2016 [...] false-negative reports may occur. Performed at [address] [address] Olamide Rodney MD LAB_1 Performing Organization Address [facility] de Phone Number SOFT [address] [place] [address] * Microalb/Creat Ratio (09/24/2016 8:36 AM CDT) Microalbumin Urine <10.0 mg/L PN SOFT U Creat Random 122 mg/dL PN SOFT Microalbumin/Crea tinine Ratio <10.0 0.0 - 30.0 PN SOFT Urine specimen (specimen) 09/24/2016 8:36 AM CDT 09/24/2016 8:36 AM CDT Narrative PN SOFT - 09/24/2016 9:26 AM CDT Performed at [facility], [address] [place] [address] CLIA number [id number] Olamide Rodney MD LAB_1 Performing Organization Address [facility] de Phone Number PN SOFT [address] [place] [address] * LIPID PANEL AND DIRECT LDL(IF NEEDED) [...] - 09/24/2016 8:09 AM CDT Performed at [facility], [address] [place] [address] [place] number [id number] Olamide Rodney MD LAB_1 PN SOFT [address] [place] [address] from Last 3 Months or Most Recently Relevant to Health Maintenance Advance Directives Documents on File Type Date Recorded Patient Striker Out Expl anation Advance Directive/Living Will/Durable Power of Attny on file/POLST PN 09/09/2013 3:06 PM Care Teams Compressed Gases Tester Relationship Specialty Start Date End Date Found, No Pcp, [address] [place] [address] PCP - General 08/27/21
--- OUTSIDE RECORDS SUMMARY | 2024-04-22 12:58 | XMS_ITS | Encounter Summary ---
Author Organization [employer] Address [address] [address] Care Team Providers Care Medical Safety Director Name Role Phone Found, No Pcp Primary [...] filedocumented in this encounter Care Teams Medical Safety Director Relationship Specialty Start Date End Date Found, No PcpMD [address] [place] [address] PCP - General 08/27/21 documented as of this encounter
--- OUTSIDE RECORDS SUMMARY | 2024-04-22 12:59 | XMS_ITS | Encounter Summary ---
Author Organization [employer] Address [address] [place] [address] Care Team Providers Care Frame Wirer Name Role Phone Found, No Pcp Primary Care Provider Unavailab le Encounter Details Date Type Department Care Team (Latest Contact Info) Description 06/02/1997 Orders Only Corinna Sylvester MD [address] [place] [address] Social History Tobacco Use Types Packs/Day Years Used Date Smoking Tobacco: Never Assessed Sex and Gender Information Value Date Recorded Sex Assigned at Not on file Gender Identity Not on file Sexual Orientation Not on file documented as of this encounter Plan of Treatment Not on file documented as of this encounter Visit Diagnoses Not on filedocumented in this encounter Care Teams Frame Wirer Relationship Specialty Start Date End Date Found, No PcpMD [address] [place] [address] PCP - General 08/27/21 documented as of this encounter
--- OUTSIDE RECORDS SUMMARY | 2024-04-22 12:59 | XMS_ITS | Encounter Summary ---
Author Organization [employer] Address [address] [place] [address] Care Team Providers Care Ship Painter Helper Name Role Phone Found, No Pcp Primary Care Provider Unavailab le Encounter Details Date Type Department Care Team (Latest Contact Info) Description 03/21/1997 Orders Only Kelly Mcneal, MECHANICAL PRODUCT DESIGN ENGINEER, RADIAL ROUTER OPERATOR Social History Tobacco Use Types Packs/Day Years Used Date Smoking Tobacco: Never Assessed Sex and Gender Information Value Date Recorded Sex Assigned at Not on file Gender Identity Not on file Sexual Orientation Not on file documented as of this encounter Plan of Treatment Not on file documented as of this encounter Visit Diagnoses Not on filedocumented in this encounter Care Teams Ship Painter Helper Relationship Specialty Start Date End Date Found, No Pcp, [address] [place] [address] PCP - General 08/27/21 documented as of this encounter
--- NOTE | 2024-04-22 13:00 | CRLHL7_ITS ---
For Patients: As a result of the Century Cures Act, medical imaging exams and procedure reports are released immediately into your electronic medical record. You may view this report before your referring provider. If you have questions, please contact your health care provider. DXA BONE MINERAL DENSITY STUDY Reason for exam: Osteopenia. Current height (in): 64. Weight (lb): 285. Menopause age: 48. Ethnicity: White. 1. Have you had a previous hip or vertebral fracture? No. 2. Have you had any fractures during your adult life which did not result from significant trauma (e.g., auto accident)? No. 3. Did either of your parents have a hip fracture? No. 4. Do you smoke? No. 5. Have you ever taken Glucocorticoids? No. 6. Do you have rheumatoid arthritis? Yes. 7. Do you have secondary osteoporosis? No. 8. Do you drink 3 or more alcoholic drinks per day? No. 9. Are you being treated for osteoporosis? No. 10. Have you ever taken any of the following medications: Actonel, Evista, Fosamax, Miacalcin, Reclast, Boniva, Forteo, HRT (i.e., estrogen/hormone therapy), Protelos, Prolia, Vitamin D, Calcium, other ??? please specify. ANSWER: Yes, vitamin D and calcium. 11. Do you have any of the following medical conditions: Anorexia or bulimia, asthma or emphysema, end stage renal disease, hyperparathyroidism, any seizure disorders, cancer, inflammatory bowel diseases, hysterectomy, other ??? please specify. ANSWER: Yes, asthma or emphysema, cancer, and hysterectomy. 12. What was your maximum height (inches)? 65. 13. Do you perform weight bearing exercise regularly? No. 14. Do you regularly consume dairy products? Yes. 15. Do you drink caffeinated beverages? No. 16. At what age did your period start? 9. 17. Are you premenopausal? No. 18. How many full-term pregnancies have you had? 0. 19. Have you ever missed your period for more than 6 months in a row (not including or menopause)? No. TECHNIQUE: Bone mineral density study was performed using the [employer]. FINDINGS: The results of the study expressed as bone mineral density (BMD) are as follows: Lumbar spine L1, L2, L4: BMD: 0.990 g/cm2. T-score: -0.4. Z-score: 1.4 Neck Left: BMD: 0.711 g/cm2. T-score: -1.2. Z-score: 0.3 Right: BMD: 0.763 g/cm2. T-score: -0.8. Z-score: 0.7 Total Left: BMD: 0.941 g/cm2. T-score: 0.0. Z-score: 1.2 Right: BMD: 0.931 g/cm2. T-score: -0.1. Z-score: 1.1 IMPRESSION: Osteopenia. *Comparison exams done prior to 11/2019 were performed on different unit, [employer]. COMPARISON: Compared with scan of 10/08/2018, the bone mineral density has increased by 8.0 percent at the spine and increased by 8.9 percent at the hip. FRAX 10-year Fracture Risk Major Osteoporotic Fracture: 8.9% Hip Fracture: 0.7% Reported Risk Factors: [place] () Neck BMD=0.711, BMI=47.3, rheumatoid arthritis. Input outside FRAX limits. Adjusted to: Uyoakk=281 kg David Chan M.D. Diagnostic Radiologist [email or web address] MINDI/jose garcia/Dictated by: David Chan MD @ 04/23/2024 11:12:00 AM (Electronically Signed)
== END 2024-04-22 12:55 | disposition home or self-care (01) ==
LOC: RAD 12:55
PROVIDERS: PCP Internal Medicine; Visit Provider Internal Medicine
DX: M85.88 Other specified disorders of bone density and structure, other site (principal); M85.89 Other specified disorders of bone density and structure, multiple sites
CPT/HCPCS: 77080

== ENCOUNTER 2025-03-21 09:15 | Outpatient (CLI) | payer MEDICARE, BC, SELFPAY | END 2025-03-21 09:16 | disposition home or self-care (01) | LOC: NFLDREF 03-26 03:17 | PROVIDERS: PCP Internal Medicine; Referring Provider Internal Medicine; Visit Provider Internal Medicine | DX: E11.9 Type 2 diabetes mellitus without complications (principal); Z98.84 Bariatric surgery status | CPT/HCPCS: 80053; 80061; 82043; 82306; 82525; 82570; 82607; 82728; 83540; 83550; 83735; 84443; 84446; 84590; 84597; 84630 ==

== ENCOUNTER 2025-04-29 12:51 | Outpatient (CLI) | payer MEDICARE, BC, SELFPAY ==
--- NOTE | 2025-04-29 13:00 | CRLHL7_ITS ---
For Patients: As a result of the Century Cures Act, medical imaging exams and procedure reports are released immediately into your electronic medical record. You may view this report before your referring provider. If you have questions, please contact your health care provider. INDICATION: BILATERAL SCREENING MAMMOGRAM, ASYMPTOMATIC 64 Y/O FEMALE COMPARISON: 03/17/2024, 02/14/2023, 02/08/2022 TECHNIQUE: Digital mammogram in CC and MLO projections including computer-aided detection (CAD) and tomosynthesis. BREAST COMPOSITION: There are scattered areas of fibroglandular density. FINDINGS: No suspicious findings. ASSESSMENT: BI-RADS 1 Negative RECOMMENDATION: Annual screening mammogram. A lay language report of this examination will be provided to the patient. Dictated by: David Chan MD @ 05/02/2025 09:58:31 (Electronically Signed)
== END 2025-04-29 12:52 | disposition home or self-care (01) ==
LOC: MAMMO 12:51
PROVIDERS: PCP Internal Medicine; Visit Provider Internal Medicine
DX: Z12.31 Encounter for screening mammogram for malignant neoplasm of breast (principal)
CPT/HCPCS: 77063; 77067